=== PATIENT | female | born 1980 | race Caucasian/White ===

== ENCOUNTER 2023-08-20 08:42 | Outpatient (RCR) | payer MEDICAID, SELFPAY ==
[2023-08-20 13:31] LABS: HCT 38.4 % (36.0-46.0); HGB 13.4 g/dL (11.2-15.7)
[2023-08-20 14:01] LABS: Ferritin 66 ng/mL (8-252)
[2023-08-20] MEDS: Normal Saline Flush 10 ML SYR IVP (14:49)
== END 2023-08-20 23:59 | disposition home or self-care (01) ==
LOC: INF 08:42
PROVIDERS: PCP Internal Medicine; Visit Provider Internal Medicine Hematology
DX: E83.118 Other hemochromatosis (principal)
CPT/HCPCS: 36415; 99195; 82728; 85014; 85018

== ENCOUNTER 2024-01-03 01:02 | Outpatient (RCR) | payer MEDICAID, SELFPAY ==
--- OUTSIDE RECORDS SUMMARY | 2024-01-03 01:04 | XMS_ITS | Encounter Summary ---
Author Organization [facility] Address [facility] [place] [address] Care Team Providers Care Wet Milling Wheel Operator Name Role Phone Che Sharpe Primary Care Provider + Encounter Details Date Type Department Care Team (Late st Contact Info) Description 05/08/2022 Orders Only Pathology [facility] [place] [address] Mayi Perez, [facility] [place] [address] Social History Tobacco Use Types Packs/Day Years Used Date Smoking Tobacco: Former Cigarettes Q uit: 11/27/2016 Smokeless Tobacco: Never Alcohol Use Standard Drinks/Week Comments Yes 0 (1 standard drink = 0.6 oz pur e alcohol) Overall Financial Resource Strain (CARDIA) Answe r Date Recorded How hard is it for you to pa y for the very basics like food, housing, medical care, and heating? Somewhat hard 07/20/2021 Hunger Vital Sign Answer Date Recorded Within the past 12 months, y ou worried that your food would run out before you got the money to buy more. Sometimes true Within the past 12 months, t he food you bought just didn't last and you didn't have money to get more. Sometimes true PRAPARE - Transportation Answer Date Re corded In the past 12 months, has l ack of transportation kept you from medical appointments or from getting medications? No 06/22 In the past 12 months, has l ack of transportation kept you from meetings, work, or from getting things needed for daily living? No 07/20/2021 Housing Stability Vital Sign Answer Curtis e Recorded In the last 12 months, was t here a time when you were not able to pay the mortgage or rent on time? Yes 07/20/2021 In the last 12 months, how many places have you lived? 1 07/20/2021 In the last 12 months, was t here a time when you did not have a steady place to sleep or slept in a long-term (including now)? No 07/20/2021 Sex and Gender Information Value Date Recorded Sex Assigned at Not on file Gender Identity Not on file Sexual Orientation Not on file documented as of this encounter Plan of Treatment Upcoming Encounters Date Type Department Care Team (Late st Contact Info) Description 12/03/2024 1:00 PM EDT Appointment Hematology [place] [address] 12/03/2024 2:00 PM EDT Office Visit Hematology [place] [address] Pelon Wisdom MD [facility] [place] [address] Oksana Payne APRN [facility] [place] [address] documented as of this encounter Visit Diagnoses Not on filedocumented in this encounter Care Teams Wet Milling Wheel Operator Relationship Specialty Start Date End Date Che Sharpe PA [address] [place] [address] [place] [address] PCP - General Internal Medicine 04/20/20 documented as of this encounter
--- OUTSIDE RECORDS SUMMARY | 2024-01-03 01:04 | XMS_ITS | Encounter Summary ---
Author Organization [facility] [place] [address] Care Team Providers Care Brownell Operator Name Role Phone Che Sharpe Primary Care Provider + Encounter Details Date Type Department Care Team (Latest Contact Info) Description 02/01/2022 2:45 PM EDT - 02/01/2022 11:59 PM EDT Hospital Encounter Hematology [place] [phone] Hemochromatosis associated with compound heterozygous mutation in HFE gene Discharge Disposition: Home Social History Tobacco Use Types Packs/Day Years [...] place to sleep or slept in a usp (including now)? No 07/20/2021 Sex and Gender Information Value Date Recorded Sex Assigned at Not on file Gender Identity Not on file Sexual Orientation Not on file documented as of this encounter Medications at Time of Discharge Medication Sig Dispensed Refills Start Date End Date insulin lispro (HUMALOG KWIKPEN INSULIN SUBQ) Inject 8 Units subcutaneously 3 times daily (with meals). 10/16/2021 insulin pump cart,auto,BT/cntr (OMNIPOD 5 G6 INTRO KIT, GEN 5, SUBQ) Inject subcutaneously. Blood-Glucose Sensor (Dexcom G6 Sensor) Device by [facility].(Non-Drug; Combo Route) route. omeprazole (PriLOSEC) 40 mg Capsule, Delayed Release(E.C.) Take 40 mg by mouth 2 times daily. 11/28/2021 Ozempic 1 mg/dose (4 mg/3 mL) Pen Injector INJECT 1 MG UNDER THE SKIN ONCE A WEEK 07/14/2021 nitrofurantoin (Macrobid) 100 mg Capsule TAKE ONE CAPSULE BY MOUTH EVERY DAY NEEDED 07/07/2021 medroxyPROGESTERone (Depo-PROVERA) 150 mg/mL Suspension 04/03/2021 ibuprofen (Advil;Motrin) 800 mg Tablet Take 800 mg by mouth every 6 hours as needed for Pain. acyclovir (ZOVIRAX) 200 mg Capsule Take 1 capsule by mouth 5 times daily. 35 capsule 11/12/2017 acetaminophen (TYLENOL) 500 mg TabletIndications:Pa in, chest wall Take 2 tablets by mouth every 6 hours as needed for Pain. 30 tablet 1 03/12/2017 glucose (DEX4 GLUCOSE) 4 gram Tablet, Chewable Take 4 tablets by mouth as needed for Low blood sugar. 90 tablet 11 11/07/2016 documented as of this encounter Plan of Treatment Upcoming Encounters Date Type Department Care Team (Late st Contact Info) Description 12/03/2024 1:00 PM EDT Appointment Hematology [place] [phone] 12/03/2024 2:00 PM EDT Office Visit Hematology [place] [phone] Pelon Wisdom MD [facility] DR HEMATOLOGY AND ONCOLOGY [place], [place] [phone] Oksana Payne APRN [facility] HEMATOLOGY AND ONCOLOGY [place], [place] [id number] documented as of this encounter Procedures Procedure Name Priority Date/Time Associated Diagnosis Comments HEMOGRAM Routine 02/01/2022 2:53 PM EDT Hemochromatosis associated with compound heterozygous mutation in HFE gene DIFFERENTIAL, AUTOMATED Routine 02/01/2022 2:53 PM EDT Hemochromatosis associated with compound heterozygous mutation in HFE gene HC IRON BINDING CAPACITY Routine 02/01/2022 2:53 PM EDT Hemochromatosis associated with compound heterozygous mutation in HFE gene HC VENIPUNCTURE Routine 02/01/2022 2:53 PM EDT Hemochromatosis associated with compound heterozygous mutation in HFE gene HC FERRITIN, SERUM Routine 02/01/2022 2: 53 PM EDT Hemochromatosis associated with compound heterozygous mutation in HFE gene documented in this encounter Results * Differential, Automated (02/01/2022 2:53 PM EDT) Neutrophil % 56.4 % [facility] Neutrophil Absolute 3.64 1.70 - 6.10 x10(3)/[facility] Lymph % 30.4 % [facility] Lymphocytes Abs 2.0 0.9 - 3.2 x10(3)/[facility] Monocyte % 7.9 % [facility] Monocyte Abs 0.5 0.3 - 0.9 x10(3)/[facility] Eos % 4.2 % [facility] Eosinophils Abs 0.3 0.0 - 0.4 x10(3)/[facility] Basophil % 0.8 % [facility] Baso Absolute 0.0 0.0 - 0.1 x10(3)/[facility] Immature Gran % 0.30 % [facility] Comment: Immature granulocytes(IG's)percentage and absolute count will include metamyelocytes, myelocytes, and promyelocytes. Blood smears from CBCs yielding IG's will be scanned manually for concordance. If this scan disagrees with the automated IG or if promyelocytes are noted, a manual differential will be performed. Immature Gran Absolute 0.02 0.00 - 0.04 x10(3)/[facility] Blood 02/01/2022 2:53 PM EDT 02/01/2022 3:13 PM EDT Narrative Resulting Agency Comment Spec In Lab Oksana Levi SPEECH THERAPIST TECHNICIAN HEMATOLOGY ORD ERABLES [facility] [place] [place] [address] * (ABNORMAL) Hemogram (02/01/2022 2:53 PM EDT) White Blood Cell 6.4 4.0 - 9.5 x10(3)/mc L [facility] Red Blood Cell 3.47(L) 4.00 - 5.21 x10(6)/mc L [facility] Hemoglobin 11.8 11.7 - 15.5 g/dL [facility] Hematocrit 33.9(L) 35.7 - 45.8 % [facility] Mean Cell Volume 97.7(H) 82.6 - 94.4 fL [facility] Mean Cell Hemoglobin 34.0(H) 27.1 - 32.0 pg [facility] Mean Cell Hemoglobin Concentration 34.8 31.7 - 35.0 g/dL [facility] Platelet 330 145 - 357 x10(3)/mc L [facility] RDW Standard Deviation 44.7 37.0 - 46.0 fL [facility] RDW coefficient of variation 12.5 11.5 - 14.1 % [facility] Mean Platelet Volume 10.4 7.6 - 12.9 fL [facility] NRBC% auto 0.0 % [facility] NRBC Absolute 0.000 0.000 - 0.000 x10(3)/mc L [facility] Blood 02/01/2022 2:53 PM EDT 02/01/2022 3:13 PM EDT Narrative Resulting Agency Comment Spec In Lab Oksana Levi APRN HEMATOLOGY ORD ERABLES Performing Organization Address City/[facility]/ZIP Co de Phone Number [facility] [place] [place] [address] * (ABNORMAL) Iron and TIBC (02/01/2022 2:53 PM EDT) [facility] Iron 44 30 - 150 mcg/dL [facility] TIBC 286 250 - 450 mcg/dL [facility] Iron Saturation 15(L) 20 - 50 % [facility] Blood 02/01/2022 2:53 PM EDT 02/01/2022 3:13 PM EDT Narrative Resulting Agency Comment Spec In Lab Oksana Levi APRN CHEMISTRY ORDE RABLES Performing Organization Address City/[facility]/ZIP Co de Phone Number [facility] [place] [address] * Ferritin (02/01/2022 2:53 PM EDT) [facility] Ferritin 41 15 - 150 ng/mL [facility] Comment: Pediatric reference ranges not verified at [facility], interpret with caution. Reference ranges for females greater than 50 years of age approach values for men, i.e., 30-400 ng/mL. Blood 02/01/2022 2:53 PM EDT 02/01/2022 3:13 PM EDT Narrative Resulting Agency Comment Spec In Lab Oksana Levi SPEECH THERAPIST TECHNICIAN CHEMISTRY PAULAE DAISY Performing Organization Address City/State/[facility] Co de Phone Number [facility] [place] [place] [address] documented in this encounter Visit Diagnoses Diagnosis Hemochromatosis associated with compound heterozygous mutation in HFE gene documented in this encounter Care Teams Brownell Operator Relationship Specialty Start Date End Date Che Sharpe PA [address] [place] [address] [place] [address] PCP - General Internal Medicine 04/20/20 documented as of this encounter
--- OUTSIDE RECORDS SUMMARY | 2024-01-03 01:04 | XMS_ITS | Encounter Summary ---
Author Organization [facility] [place] [address] Care Team Providers Care Field Service Engineer Name Role Phone Che Sharpe Primary Care Provider + Encounter Details Date Type Department Care Team (Late st Contact Info) Description 04/01/2023 Orders Only Hematology [place] [address] Morena Martin RN Hemochromatosis associated with compound heterozygous mutation in HFE gene Social History Tobacco Use Types Packs/Day Years [...] place to sleep or slept in a [place] health care facility (including now)? No 07/20/2021 Sex and Gender Information Value Date Recorded Sex Assigned at Not on file Gender Identity Not on file Sexual Orientation Not on file documented as of this encounter Progress Notes * Morena Martin RN - 04/01/2023 11:34 AM EST Cbc documented in this encounter Plan of Treatment Upcoming Encounters Date Type Department Care Team (Late st Contact Info) Description 12/03/2024 1:00 PM EDT Appointment Hematology and Oncology at [place] [phone] 12/03/2024 2:00 PM EDT Office Visit Hematology and Oncology at [place] [phone] Pelon Wisdom MD [facility] [address] [place] [address] Oksana Payne APRN [facility] [address] [place] [address] Scheduled Orders Name Type Priority Associated Diagnoses Orde r Schedule CBC (with Diff) Lab STAT Hemochromatosis associated with compound heterozygous mutation in HFE gene Expected: 04/01/2023 (Approximate), Expires: 04/01/2024 Iron and TIBC Lab STAT Hemochromatosis associated with compound heterozygous mutation in HFE gene Expected: 04/01/2023 (Approximate), Expires: 04/01/2024 Ferritin Lab STAT Hemochromatosis associated with compound heterozygous mutation in HFE gene Expected: 04/01/2023 (Approximate), Expires: 04/01/2024 documented as of this encounter Visit Diagnoses Diagnosis Hemochromatosis associated with compound heterozygous mutation in HFE gene documented in this encounter Care Teams Field Service Engineer Relationship Specialty Start Date End Date Che Sharpe PA [address] [place] [address] [place] [address] PCP - General Internal Medicine 04/20/20 documented as of this encounter
--- OUTSIDE RECORDS SUMMARY | 2024-01-03 01:04 | XMS_ITS | Encounter Summary ---
Author Organization [facility] [place] [address] Care Team Providers Care Adobe Layer Helper Name Role Phone Che Sharpe Primary Care Provider + Encounter Details Date Type Department Care Team (Late st Contact Info) Description 02/15/2023 Telephone Hematology [place] [phone] Morena Martin RN Social History Tobacco Use Types Packs/Day Years [...] place to sleep or slept in a retirement (including now)? No 07/20/2021 Sex and Gender Information Value Date Recorded Sex Assigned at Not on file Gender Identity Not on file Sexual Orientation Not on file documented as of this encounter Miscellaneous Notes * Telephone Encounter - Morena Martin RN - 02/15/2023 2:34 PM EDT Message received from executive legal secretary: WALK IN SERVICE Services to be provided for pt are: LABS (CBC,DIFF,JUAN,IRON,TIBC) AT [facility] 02/15OR 02/18/23 Orders and necessary supporting documents faxed to [phone] [employer] MESSAGE TO PATIENT W/INSTRUCTIONS Telehealth visit 02/21/23 documented in this encounter Plan of Treatment Upcoming Encounters Date Type Department Care Team (Late st Contact Info) Description 12/03/2024 1:00 PM EDT Appointment Hematology [place] [address] 12/03/2024 2:00 PM EDT Office Visit Hematology [place] [address] Pelon Wisdom MD [facility] [place] [address] Oksana Payne APRN [facility] [place] [address] documented as of this encounter Visit Diagnoses Not on filedocumented in this encounter Care Teams Adobe Layer Helper Relationship Specialty Start Date End Date Che Sharpe PA NPI: [id number] [place] [address] [place] [address] PCP - General Internal Medicine 04/20/20 documented as of this encounter
--- OUTSIDE RECORDS SUMMARY | 2024-01-03 01:04 | XMS_ITS | Encounter Summary ---
Author Organization [facility] Address [facility] [place] [address] Care Team Providers Care Stud Dairy Cattle Farmer Name Role Phone Che Sharpe Primary Care Provider + Encounter Details Date Type Department Care Team (Latest Contact Info) Description 02/07/2023 Travel Social History Tobacco Use Types Packs/Day Years [...] PM EDT Appointment Hematology [place] [address] 12/03/2024 2:00 PM EDT Office Visit Hematology [place] [address] Pelon Wisdom MD [facility] DR [place] [address] Oksana Payne APRN [facility] DR [place] [address] documented as of this encounter Visit Diagnoses Not on filedocumented in this encounter Care Teams Stud Dairy Cattle Farmer Relationship Specialty Start Date End Date Che Sharpe PA [address] [place] [address] [place] [address] PCP - General Internal Medicine 04/20/20 documented as of this encounter
--- OUTSIDE RECORDS SUMMARY | 2024-01-03 01:04 | XMS_ITS | Encounter Summary ---
Author Organization [facility] [place] [address] Care Team Providers Care Stamp Classifier Name Role Phone Che Sharpe Primary Care Provider + Encounter Details Date Type Department Care Team (Latest Contact Info) Description 05/03/2023 4:00 PM EST TH Visit (TeleHealth) Hematology [place] [address] Pelon Wisdom MD [facility] DR HEMATOLOGY [place] [address] Hemochromatosis associated with compound heterozygous mutation in [...] place to sleep or slept in a group home (including now)? No 07/20/2021 Sex and Gender Information Value Date Recorded Sex Assigned at Not on file Gender Identity Not on file Sexual Orientation Not on file documented as of this encounter Progress Notes * Pelon Tomlinson MD - 05/03/2023 4:00 PM EST Images from the original note were not included. HEMATOLOGY CONSULTATION VISIT NOTE DATE OF VISIT : 05/03/23 HISTORY OF PRESENT ILLNESS Emma Min is a 43 y.o. female with PMH of type II DM, referred for evaluation of compound heterozygous state. Presentation: Her mother was recently diagnosed with hemochromatosis which prompted testing her andshe was found be compound heterozygote. So she was sent here for further evaluation. Labs from referring MD: LABS from 06/19/21: HFE gene mutation: 06/19/21:One copy of C282Y variant and 1 copy of H63D variant was detected. Iron: 79, TIBC: 320, iron saturation: 25%, ferritin: 691 ( 8-251) CBC: WBC: 6.7, normal differential, Hgb: 14.4, MCV: 98.1, platelets: 324 INTERIM Hx: In office today, Emma Min reports doing well since last seen Last phlebotomy was yesterday, on Q3 month schedule, She reports feeling tired after each phlebotomy. She hopes to have it closer to home. Otherwise doing well, no other new health concerns PROBLEM LIST Patient Active Problem List Diagnosis Chronic bilateral low back pain without sciatica Lumbar spondylosis Sacroiliac dysfunction Hemochromatosis Seizure-like activity Depression Anxiety Gastroesophageal reflux disease without esophagitis Uncontrolled diabetes mellitus type 2 without complications PAST SURGICAL Hx: No past surgical history on file. MEDICATIONS insulin lispro (HUMALOG KWIKPEN INSULIN SUBQ) insulin pump cart,auto,BT/cntr (OMNIPOD 5 G6 INTRO KIT, GEN 5, SUBQ) Blood-Glucose Sensor (Dexcom G6 Sensor) Device omeprazole (PriLOSEC) 40 mg Capsule, Delayed Release(E.C.) Ozempic 1 mg/dose (4 mg/3 mL) Pen Injector nitrofurantoin (Macrobid) 100 mg Capsule medroxyPROGESTERone (Depo-PROVERA) 150 mg/mL Suspension ibuprofen (Advil;Motrin) 800 mg Tablet acyclovir (ZOVIRAX) 200 mg Capsule acetaminophen (TYLENOL) 500 mg Tablet glucose (DEX4 GLUCOSE) 4 gram Tablet, Chewable ALLERGIES/ADR Allergies Allergen Reactions Latex Other [Unclassified Drug] Anaphylaxis Any type of SSRI Quetiapine Anaphylaxis All anti depressant medications Sertraline Anaphylaxis Paroxetine Hcl CIS - Edema Lactose Metformin Diarrhea PERSONAL and SOCIAL HISTORY Lives in: [place], [place], [place] from [facility]. [facility] is the closest hospital. 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 ETOH: occasional Smoking: No HIPPA Contact Permission: OK to leave voice mail on phone. FAMILY HISTORY Family History Problem Relation Age of Onset Hyperlipidemia Mother Hyperlipidemia Father Depression Father Bipolar Disorder Sister Diabetes Maternal Aunt Diabetes Maternal Grandfather Amblyopia Neg Hx Cancer Neg Hx Cataracts Neg Hx Glaucoma Neg Hx Hypertension Neg Hx Macular Degeneration Neg Hx Retinal Detachment Neg Hx Strabismus Neg Hx Thyroid Disease Neg Hx Heart Disease Neg Hx Her mother is diagnosed with same HFE gene mutation, so also her step sister. She has 2 biological children, 16 and 18 years old. No other FH of blood disorders. She does not know about cancers in the family PHYSICAL EXAM GENERAL: Emma Min is a well-appearing 43 y.o. female in no acute distress. PSYCHIATRIC: normal affect and mood Performed as this is telehealth visit LABORATORY Recent Results (from the past 72 hour(s)) Ferritin Result Value Ref Range Ferritin 42 6 - 175 ng/mL Recent Labs 05/02/23 1215 02/07/23 1051 10/19/22 1600 07/19/22 1240 FERRITIN 42 51 51 50 ASSESSMENT & PLANS Emma Min is a 43 y.o. female with PMH of type II DM, referred for evaluation of hemochromatosis. She is compound heterozygous for HFE. Doing phlebotomies of 500 ml volume every 3 months at [facility] and her ferritin is well-maintained <100. Phlebotomies were arranged at [facility] but due to her difficulty with IV access, she has been coming to the [facility] for phlebotomies. She now hopes to get them at [facility]. Accordingly, we will set them up. She is advised to drink a lot of fluids prior to each phlebotomy. Will continue to monitor ferritin, H&H prior to each phlebotomy. F/up in 18 months with CBC, iron studies. Pelon Tomlinson MD [facility] 05/03/23 CC: NARENDRA Gray Elizabeth C * Pelon Tomlinson MD - 05/03/2023 4:00 PM EST Date: 05/03/23 Patient Name: Emma Min : 1980 Diagnosis: Hemochromatosis Referral to [site]: [facility] Orders: [x] Draw 500ml of blood once every 3-4 months , next one due late July,. [x] Hold for Hemoglobin less than 11g/dL or Ferritin <20 LABS: [x] Check ferritin prior to every phlebotomies (goal is ferritin <100) [x] Check H/H prior to every phlebotomy. . Oksana Payne, MSN, CHAIN REPAIRER [facility] Hematology/[place] [address] Pager: [phone] 05/03/23 documented in this encounter Plan of Treatment Upcoming Encounters Date Type Department Care Team (Late st Contact Info) Description 12/03/2024 1:00 PM EDT Appointment Hematology [place] [address] 12/03/2024 2:00 PM EDT Office Visit Hematology [place] [address] Pelon Wisdom MD [facility] DR HEMATOLOGY [place] [address] Oksana Payne APRN [facility] DR HEMATOLOGY [place] [address] documented as of this encounter Visit Diagnoses Diagnosis Hemochromatosis associated with compound heterozygous mutation in HFE gene documented in this encounter Care Teams Stamp Classifier Relationship Specialty Start Date End Date Che Sharpe PA [address] [place] [address] [place] [address] PCP - General Internal Medicine 04/20/20 documented as of this encounter
--- OUTSIDE RECORDS SUMMARY | 2024-01-03 01:04 | XMS_ITS | Encounter Summary ---
Author Organization [facility] Address [facility] [place] [address] Care Team Providers Care Middleware Architect Name Role Phone Che Sharpe Primary Care Provider + Reason for Referral * Physical Therapy (Routine) - Closed Specialty Diagnoses / Procedures Referred By Contac t Referred To Contact Physical Therapy Diagnoses Chronic bilateral low back pain without sciatica Lumbar spondylosis Protrusion of lumbar intervertebral disc Sacroiliac dysfunction Myofascial pain Jarett Avalos MD [facility] DR PHYSICAL MEDIC[place] [address] Referral ID Status Reason Start Date Expiration Date V isits Requested Visits Authorized [id number] Closed Evaluate and Treat 12/11/2022 06/09/2023 12 12 Reason for Visit * Reason Comments Back Pain Lower back * Consultation (Routine) - Closed Specialty Diagnoses / Procedures Referred By Contac t Referred To Contact Pain and Spine Center Diagnoses Displacement of lumbar intervertebral disc without myelopathy Spine-Low back pain w/LE pain/MRI 09/14/22 @ [facility](faxed x1)/tried PT non op Carmen Astorga APRN [address] [place] [address] [facility] [place] [address] Referral ID Status Reason Start Date Expiration Date V isits Requested Visits Authorized [id number] Closed Consult, Test & Treat PCP Updated and/or Approved 09/20/2022 03/22/2023 1 1 Encounter Details Date Type Department Care Team (Late st Contact Info) Description 12/11/2022 2:45 PM EDT Office Visit Pain and Spine Center at [facility] [place] [address] Jarett Avalos MD [facility] DR PHYSICAL MEDICINE [place] [address] Chronic bilateral low back pain without sciatica (Primary Dx); Lumbar spondylosis; Protrusion of lumbar intervertebral disc; Sacroiliac dysfunction; Myofascial pain Social History Tobacco Use Types Packs/Day Years [...] place to sleep or slept in a assisted (including now)? No 07/20/2021 Sex and Gender Information Value Date Recorded Sex Assigned at Not on file Gender Identity Not on file Sexual Orientation Not on file documented as of this encounter Last Filed Vital Signs Vital Sign Reading Time Taken Comments Blood Pressure - - Pulse - - Temperature - - Respiratory Rate - - Oxygen Saturation - - Inhaled Oxygen Concentration - - Weight 72.6 kg (160 lb) 12/11/2022 2:41 PM EDT Height 162.6 cm (5' 4) 12/11/2022 2:41 PM EDT Body Mass Index 27.46 12/11/2022 2:41 PM EDT documented in this encounter Progress Notes * Jarett Avalos MD - 12/11/2022 2:45 PM EDT Images from the original note were not included. Subjective: Emma Min is a 42 y.o. female who presents for spine assessment and for Physical Medicine and Rehabilitation consultation, at the request of Carmen Astorga APRN. She reports primary symptoms of generalized upper lumbar pain with radiation to the mid buttocks. Pain can radiate intermittently to the distal aspect of the posterior thighs, but this has not occurred for the past 1.5 months. Symptom chronicity: The patient has had pain for the past 15 years. It began while hiking. Initial symptoms were present in bilateral buttocks with radiation to the lower extremities. The pain resolved after approximately two weeks. Over the next 7 years, she would experience self-limited low back,buttock or lower extremity pain once or twice a year. Over time, there has been an increase in the frequency of buttock pain and an increase in the anatomical distribution of pain to include the entire lumbar region. Additional episodes of lower extremity pain radiation have been no more frequent than once a year and have been self-limited after one week. Over the past 5 years, the patient has experienced constant generalized lumbar and bilateral buttock pain. She can still experience episodes of lower extremity pain radiation, but none for the past 1.5 months. Pain is constant and currently graded as 7/10 in intensity. Exacerbating factors: Prolonged sitting or driving, prolonged forward flexion, prolonged side-lying, hiking and squatting. Alleviating factors: Standing, stretching and the application of heat or cold. The patient denies lower extremity pain radiation, numbness, tingling, focal lower extremity weakness, bowel/bladder dysfunction or gait/balance impairment. Current treatment: Patient reports partial relief with use of Tylenol and ibuprofen. She has had two sessions of outpatient PT treatment at [facility]. She has experienced slight relief with the use of amitriptyline, as prescribed by her primary care provider. The patient saw a pain management provider at [facility] in early 2022. She was told that she did not qualify for an injection and that she had more of an arthritis thing. She was referred for rheumatological consultation, but did not follow through with that. I have reviewed the telehealth note of NARENDRA Betancur, dated 08/15/2022. Past medical history includes gastroesophageal reflux disease, uncontrolled type 2 diabetes mellitus, hemochromatosis, hyperlipidemia, irritable bowel syndrome and migraine headache. Behavioral health history includes anxiety and depression. I have independently reviewed the lumbar MRI of 09/14/2022. The study demonstrates a small central disc herniation at L3-L4 without neural impingement. There are small posterior disc herniations at L4-L5 and L5-S1 that are also without impingement. There is facet arthropathy at L4-L5 and L5-S1. Thisis severe on the right at the L5-S1 level. Review of Systems: Pertinent review of musculoskeletal and neurological systems, as above. Spine Center Response Trends Patient-reported scores: 05/14/2017 11:38 AM 12/10/2022 12:24 PM myD-H Spine Questionnaire responses Oswestry Disability Index (Range: 0-100) 22 (Moderate disability) PROMIS-10 Physical Health Score 37.4 34.9 PROMIS-10 Mental Health Score 36.3 62.5 Objective: The patient was advised of the clinic chemical mixer policy. She declined to have a chemical mixer during today's evaluation. Ht 162.6 cm (5' 4) Wt 72.6 kg (160 lb) BMI 27.46 kg/m?? The patient is seated comfortably and in no apparent distress. Gait is normal. Bilateral foot clearance is satisfactory. There is no difficulty performing bilateral heel or toe walking. Right shoulder is elevated in standing. Standing iliac crest palpation is elevated on the right. There is left-sided tenderness with the assessment. Standing flexion test is positive on the right. The patient reports midline low lumbar pain at endrange lumbar flexion and extension. Palpation: There is tenderness to palpation over bilateral upper, middle and right low lumbar paraspinals. Additional tenderness is noted over bilateral quadratus lumborum. There is marked tendernessover the sacrum and bilateral sacroiliac joints. There is mild bilateral iliac pain to pelvic compression. CADEN is negative bilaterally, as are bilateral posterior thrust and Danae tests. Sacral thrust is positive. There is marked tightness in right iliotibial band and rectus femoris. There is additional tightness, of lesser severity, and left iliotibial band. Motor: Right hip abductors 4-/5. Lower extremity motor examination otherwise 5/5 throughout. Sensation: Intact to light touch throughout the lower extremities. Straight leg raising: Negative bilaterally in sitting and supine. Muscle stretch reflexes: 1+ bilaterally for quadriceps and unobtainable for Achilles tendon. Tone normal throughout the lower extremities. No ankle clonus. Assessment: Encounter Diagnoses Name Primary? Chronic bilateral low back pain without sciatica Yes Lumbar spondylosis Protrusion of lumbar intervertebral disc Sacroiliac dysfunction Myofascial pain The patient presents with a 15-year history of pain that has increased in frequency and distribution over time. She reports episodic unilateral to bilateral posterior thigh pain radiation that has remained unchanged and is consistently self-limited. She has had no lower extremity pain for the past 1.5 months. There are no radicular signs on examination to support the presence of a lumbar radicular process. The current symptoms are not easily explained on the basis of the small disc herniation seen at the L3-L4 to L5-S1 levels. There was no evidence of neural impingement. Lumbar MRI demonstrates pronounced lower lumbar facet arthropathy that is worst on the right at L5-S1. This offers a satisfactory explanation for the low lumbar and buttock pain, but cannot easily explain the rest of the symptom complex. The patient has clinical evidence of sacroiliac mechanical dysfunction with sacroiliitis, but minimal pain localization to provocative stress maneuvers. In the absence of a clear neurogenic cause forthe lower extremity pain, sacroiliac dysfunction offers a potential explanation for the intermittent lower extremity pain symptoms. I suspect that the patient's pain is primarily mechanical in nature and includes a combination of facet-mediated and sacroiliac pain. I have reviewed my findings and clinical impressions in detail with the patient. I recommend outpatient PT treatment and have explained the rationale for such treatment in detail to the patient. She would like to proceed. This will be carried out at [facility]. The prescription includespostural training, manual therapy, via MET, to the pelvis and sacroiliac joints to restore and maintain normal lumbopelvic rhythm, pelvic alignment and rotation, flexibility training with attention to iliopsoas, quadratus lumborum, right iliotibial band and rectus femoris, establishment of posturalpreference for symptom control and self-management of symptoms and progression to pelvic stabilization and core strengthening. Consideration will be given to manual therapy in this office, depending on the response to PT treatment. The patient does not meet clinical criteria for diagnostic sacroiliac joint steroid injection. Consideration may be given to Pain Management consultation for diagnostic lumbar medial branch blocks, if the patient does not experience satisfactory pain relief with additional PT treatment. Plan: 1. Outpatient PT treatment. 2. Follow-up in 8 weeks during PT treatment. The consultation request of Carmen Astorga APRN is greatly appreciated. Jarett Avalos MD, MS documented in this encounter Plan of Treatment Upcoming Encounters Date Type Department Care Team (Late st Contact Info) Description 12/03/2024 1:00 PM EDT Appointment Hematology [place] [address] 12/03/2024 2:00 PM EDT Office Visit Hematology and Oncology at [address] Pelon Wisdom MD [facility] [address] [place] [address] Oksana Payne APRN [facility] [address] [place] [address] Scheduled Referrals Name Type Priority Associated Diagnoses Orde r Schedule Referral to Physical Therapy Outpatient Referral Routine Chronic bilateral low back pain without sciatica Lumbar spondylosis Protrusion of lumbar intervertebral disc Sacroiliac dysfunction Myofascial pain Ordered: 12/11/2022 documented as of this encounter Visit Diagnoses Diagnosis Chronic bilateral low back pain without sciatica- Primary Lumbar spondylosis Lumbosacral spondylosis without myelopathy Protrusion of lumbar intervertebral disc Sacroiliac dysfunction Disorders of sacrum Myofascial pain Mylagia and myositis, unspecified documented in this encounter Care Teams Middleware Architect Relationship Specialty Start Date End Date Che Sharpe PA [address] [place] [address] [place] [address] PCP - General Internal Medicine 04/20/20 documented as of this encounter
--- OUTSIDE RECORDS SUMMARY | 2024-01-03 01:04 | XMS_ITS | Encounter Summary ---
Author Organization [facility] Address [facility] [place] [address] Care Team Providers Care Culinary Intern Name Role Phone Che Sharpe Primary Care Provider + Reason for Visit * Reason Comments Follow-up Doing PT Back Pain Encounter Details Date Type Department Care Team ([facility] st Contact Info) Description 02/07/2023 11:30 AM EDT Office Visit [place] [phone] Jarett Avalos MD [facility] PHYSICAL [place] [address] Chronic bilateral low back pain without sciatica; Sacroiliac dysfunction; Sacroiliac joint somatic dysfunction Social History Tobacco Use Types Packs/Day Years [...] place to sleep or slept in a long term (including now)? No 07/20/2021 Sex and Gender [...] - Inhaled Oxygen Concentration - - Weight 73.9 kg (163 lb) 02/07/2023 11:32 AM EDT Height 162.6 cm (5' 4) 02/07/2023 11:32 AM EDT Body Mass Index 27.98 02/07/2023 11:32 AM EDT documented in this encounter Progress Notes * Jarett Avalos MD - 02/07/2023 11:30 AM EDT Interim history: The patient returns for the first time since the visit of 12/11/2022. At that time, she reported symptoms of generalized upper lumbar pain with radiation to mid buttocks. Pain was felt to be mechanical in nature with probable facet- mediated and/or sacroiliac components. Outpatient PT treatment was prescribed. The patient returns today during the course of PT treatment at [facility]. No notes have been received from the PT practice. The patient was discharged from treatment after 6-7 sessions. She states that physical therapy helped a little bit. There has been no overall change in the distribution of the patient's pain symptoms. Pain can radiate occasionally into the lateral hips or lateral thighs, especially if she is in ipsilateral side-lying position. Symptom chronicity: The patient has had pain for approximately 15 years. Symptoms began after an injury while hiking. Pain is constant and is currently graded as 5/10 in intensity. Exacerbating factors: Prolonged ambulation and prolonged forward flexion. Alleviating factors: Position change, stretching and standing. The patient denies lower extremity numbness, tingling, focal lower extremity weakness or bowel/bladder dysfunction. Past medical history includes uncontrolled type 2 diabetes mellitus and morbid obesity. She has experienced significant volitional weight loss from 300 pounds to her current weight of 135 pounds. The patient is working full-time, but states that she feels restricted when engaging in vocational or a vocational activities. 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 She is unable to bicycle, hike, walk for long distancesor drive for extended periods. She avoids walking on inclines. Objective: Ht 162.6 cm (5' 4) Wt 73.9 kg (163 lb) BMI 27.98 kg/m?? The patient is seated comfortably and in no apparent distress. Gait is normal. There is no difficulty performing bilateral heel or toe walking. Right shoulder is elevated in standing. Lumbar lordosis is decreased. Standing iliac crest palpation is markedly elevated on the right. Standing flexion test is positive on the left. The patient reports midline upper to mid lumbar pain with active flexion and generalized lumbosacral pain with lumbar extension from the standing position. Palpation: There is generalized bilateral lumbar tenderness. Pain is elicited at 8/18 defined tender points. Additional focal tenderness is found over the sacrum and throughout bilateral central buttocks and hip bursae, left greater than right. The patient reports right anterior iliac pain to pelvic compression and bilateral anterior iliac pain to pelvic shear. CADEN is negative bilaterally. The patient reports pain in the right groin with ipsilateral intermediate hip internal rotation. Right FADIR is negative. Bilateral posterior thrust and Norman's tests are negative. Sacral thrust is positive. Motor: 5/5 for bilateral hip and knee flexors, knee extensors, ankle dorsiflexors and EHL. Sensation: Intact to light touch throughout the lower extremities. Straight leg raising: Negative bilaterally in sitting and supine. Muscle stretch reflexes: 1+ bilaterally for quadriceps and unobtainable for Achilles tendon. Assessment: Encounter Diagnoses Name Primary? Chronic bilateral low back pain without sciatica Sacroiliac dysfunction Sacroiliac joint somatic dysfunction The patient has experienced no significant improvement in her symptoms with PT treatment. The response to treatment is somewhat difficult to assess in the absence of any clinical records from the PT practice. The patient experienced some pain with the assigned core strengthening exercises. The presence of sacroiliac mechanical dysfunction is again noted. I suspect that the observed dysfunction is a contributing factor in the chronic pain symptoms. The patient does not meet criteria forcompletion of a diagnostic sacroiliac joint steroid injection. The patient is, however, appropriate for manual therapy. She was treated today, as below: Manual therapy, using gentle muscle energy techniques, was applied to the patient's pelvis and right lower extremity by MD in the office today. The treatment was tolerated well by the patient and waswithout complication. Pelvic obliquity resolved and leg lengths were equalized following the treatment. Lumbopelvic flexibility from the standing position was noted to be bilaterally symmetric post-treatment. Low back pain decreased from a level of 5/10 pre-treatment to 3/10 post- treatment. Following treatment, the patient was able to complete active lumbar flexion without pain. The patient has experienced a 40% reduction in pain, normalization of lumbopelvic motion and has achieved pain-free lumbar flexion following manual therapy. I recommend repeat manual therapy to help determine whether normal lumbopelvic biomechanics can be maintained over time and to hopefully permit the patient to advance to stabilization and core exercises without pain. If the patient has no significant response to repeat manual therapy, consideration will be given toreferral for enrollment in the [facility] Program. Plan: 1. Follow-up in 2-3 weeks for repeat manual therapy. Total time spent on date of encounter, including [id number] evaluation and coordination of care (minus manual therapy) = 32 minutes. Jarett Avalos MD, MS documented in this encounter Plan of Treatment Upcoming Encounters Date Type Department Care Team (Late st Contact Info) Description 12/03/2024 1:00 PM EDT Appointment Hematology [place] [address] 12/03/2024 2:00 PM EDT Office Visit Hematology [place] [address] Pelon Wisdom MD [facility] DR HEMAT[place] [address] Oksana Payne APRN [facility] [place] [address] documented as of this encounter Visit Diagnoses Diagnosis Chronic bilateral low back pain without sciatica Sacroiliac dysfunction Disorders of sacrum Sacroiliac joint somatic dysfunction Nonallopathic lesion of sacral region, not elsewhere classified documented in this encounter Care Teams Culinary Intern Relationship Specialty Start Date End Date Che Sharpe PA [address] [place] [address] [place] [address] PCP - General Internal Medicine 04/20/20 documented as of this encounter
--- OUTSIDE RECORDS SUMMARY | 2024-01-03 01:04 | XMS_ITS | Encounter Summary ---
Author Organization [facility] Address [facility] [place] [address] Care Team Providers Care Cell Changer Name Role Phone Che Sharpe Primary Care Provider + Encounter Details Date Type Department Care Team (Latest Contact Info) Description 07/19/2022 Travel Social History Tobacco Use Types Packs/Day [...] place to sleep or slept in a senior care (including now)? No 07/20/2021 Sex and Gender Information Value Date Recorded Sex Assigned at Not on file Gender Identity Not on file Sexual Orientation Not on file documented as of this encounter Plan of Treatment Upcoming Encounters Date Type Department Care Team (Late st Contact Info) Description 12/03/2024 1:00 PM EDT Appointment Hematology [place] [address] 12/03/2024 2:00 PM EDT Office Visit Hematology [place] [address] Pelon Wisdom MD [facility] DR HEMATOLOGY [place] [address] Oksana Payne APRN [facility] DR HEMATOLOGY [place] [address] documented as of this encounter Visit Diagnoses Not on filedocumented in this encounter Care Teams Cell Changer Relationship Specialty Start Date End Date Che Sharpe PA [address] [place] [address] [place] [address] PCP - General Internal Medicine 04/20/20 documented as of this encounter
--- OUTSIDE RECORDS SUMMARY | 2024-01-03 01:04 | XMS_ITS | Encounter Summary ---
Author Organization [facility] Address [facility] [place] [address] Care Team Providers Care In Store Representative Name Role Phone Che Sharpe Primary Care Provider + Reason for Referral * Consultation (Routine) - Closed Specialty Diagnoses / Procedures Referred By Contac t Referred To Contact Hematology and Oncology Diagnoses Hemochromatosis associated with compound heterozygous mutation in HFE gene Pelon Wisdom MD [facility] [place] [address] Referral ID Status Reason Start Date Expiration Date V isits Requested Visits Authorized [id number] Closed Consult, Test & Treat 02/12/2023 08/11/2023 1 1 Encounter Details Date Type Department Care Team (Late st Contact Info) Description 02/12/2023 Orders Only Hematology [place] [address] Pelon Wisdom MD [facility] [place] [address] Hemochromatosis associated with compound heterozygous mutation in [...] place to sleep or slept in a chcf (including now)? No 07/20/2021 Sex and Gender Information Value Date Recorded Sex Assigned at Not on file Gender Identity Not on file Sexual Orientation Not on file documented as of this encounter Plan of Treatment Upcoming Encounters Date Type Department Care Team (Late st Contact Info) Description 12/03/2024 1:00 PM EDT Appointment Hematology [place] [address] 12/03/2024 2:00 PM EDT Office Visit Hematology [place] [address] Pelon Wisdom MD [facility] [place] [address] Oksana Payne APRN [facility] [place] [address] Scheduled Referrals Name Type Priority Associated Diagnoses Orde r Schedule Referral to Hematology and Oncology Outpatient Referral Routine Hemochromatosis associated with compound heterozygous mutation in HFE gene Ordered: 02/12/2023 documented as of this encounter Visit Diagnoses Diagnosis Hemochromatosis associated with compound heterozygous mutation in HFE gene documented in this encounter Care Teams In Store Representative Relationship Specialty Start Date End Date Che Sharpe PA [address] [place] [address] [place] [address] PCP - General Internal Medicine 04/20/20 documented as of this encounter
--- OUTSIDE RECORDS SUMMARY | 2024-01-03 01:04 | XMS_ITS | Encounter Summary ---
Author Organization [facility] [place] [address] Care Team Providers Care Lace Tearing Supervisor Name Role Phone Che Sharpe Primary Care Provider + Encounter Details Date Type Department Care Team (Late st Contact Info) Description 04/18/2023 External Results Hematology and Oncology at [facility] [place] [phone] Demetria Alberto, RN Social History Tobacco Use Types Packs/Day [...] place to sleep or slept in a prison (including now)? No 07/20/2021 Sex and Gender Information Value Date Recorded Sex Assigned at Not on file Gender Identity Not on file Sexual Orientation Not on file documented as of this encounter Plan of Treatment Upcoming Encounters Date Type Department Care Team (Late st Contact Info) Description 12/03/2024 1:00 PM EDT Appointment Hematology [place] [phone] 12/03/2024 2:00 PM EDT Office Visit Hematology [place] [phone] Pelon Wisdom MD [facility] [address] HEMATOLOGY [place] [address] Oksana Payne APRN [facility] DR HEMATOLOGY [place] [address] documented as of this encounter Procedures Procedure Name Priority Date/Time Associated Diagnosis Comments CBC (WITH DIFF) Routine 04/16/2023 3:21 PM EST documented in this encounter Results * (ABNORMAL) CBC (with Diff) (04/16/2023 3:21 PM EST) White Blood Cell 6.7 5 - 10 [facility] Hemoglobin 13.7 12.0 - 16.0 [facility] Hematocrit 38.1 37.0 - 47.0 [facility] Platelet 259 130 - 450 [facility] Neutrophil Absolute (ANC) - Automated 4.0 [facility]ILITY Blood 04/16/2023 3:21 PM EST Historical Provider HEMATOLOGY [facility] documented in this encounter Visit Diagnoses Not on filedocumented in this encounter Care Teams Lace Tearing Supervisor Relationship Specialty Start Date End Date Che Sharpe PA [address] [place] [address] [place] [address] PCP - General Internal Medicine 04/20/20 documented as of this encounter
--- OUTSIDE RECORDS SUMMARY | 2024-01-03 01:04 | XMS_ITS | Encounter Summary ---
Author Organization [facility] [place] [address] Care Team Providers Care Dye Machine Tender Name Role Phone Che Sahrpe Primary Care Provider + Reason for Visit * Reason Comments Procedure * Consultation (Routine) - Closed Specialty Diagnoses / Procedures Referred By Contlaura t Referred To Contact Diagnoses Hemochromatosis associated with compound heterozygous mutation in HFE gene Pelon Wisdom MD [facility] DR HEMATOLOGY [place] [address] [facility] [place] [address] Referral ID Status Reason Start Date Expiration Date V isits Requested Visits Authorized [id number] Closed Consult, Test & Treat 08/08/2022 08/08/2023 3 3 Encounter Details Date Type Department Care Team (Latest Contact Info) Description 10/19/2022 2:30 PM EDT - 10/19/2022 11:59 PM EDT Hospital Encounter [place] [address] Hemochromatosis, unspecified hemochromatosis type Discharge Disposition: Home Social History Tobacco Use [...] place to sleep or slept in a halfway (including now)? No 07/20/2021 Sex and Gender Information Value Date Recorded Sex Assigned at Not on file Gender Identity Not on file Sexual Orientation Not on file documented as of this encounter Last Filed Vital Signs Vital Sign Reading Time Taken Comments Blood Pressure 117/72 10/19/2022 2:40 PM EDT Pulse 105 10/19/2022 2:40 PM EDT Temperature 36.5 ??C (97.7 ??F) 10/19/2022 2:40 PM ED T Respiratory Rate - - Oxygen Saturation - - Inhaled Oxygen Concentration - - Weight - - Height - - Body Mass Index - - documented in this encounter Medications at Time of Discharge Medication Sig Dispensed Refills Start Date End Date insulin lispro (HUMALOG KWIKPEN INSULIN SUBQ) Inject 8 Units subcutaneously 3 times daily (with meals). 10/16/2021 insulin pump cart,auto,BT/cntr (OMNIPOD 5 G6 INTRO KIT, GEN 5, SUBQ) Inject subcutaneously. Blood-Glucose Sensor (Dexcom G6 Sensor) Device by Geron.(Non-Drug; Combo Route) route. omeprazole (PriLOSEC) 40 mg [...] 11 11/07/2016 documented as of this encounter Progress Notes * Pola Hull MD - 10/19/2022 2:35 PM EDT Transfusion Medicine Service Therapeutic Phlebotomy Procedure Type: Therapeutic Phlebotomy Requesting Physician: Pelon Tomlinson Date of Procedure: 10/19/2022 Treatment Pathway: Hemochromatosis/Iron Overload Program Frequency of Phlebotomy: Every 3 Months Criteria for Performance of Therapeutic Phlebotomy: Hemoglobin greater than 11 g/dL Pre-Collection Hemoglobin value: 13 g/dL Criteria for Therapeutic Phlebotomy Met? Yes Volume Drawn (mL): Volume Replaced (mL): 500 mL 0.9% normal saline Vital Signs: Blood Pressure: 117/72 mmHg Temperature: 36.5 ??C (97.7 ??F) degrees C Pulse: (!) 105 bpm Therapeutic Goal: Ferritin (ng/mL) less than: 100 Frequency of Ferritin Monitoring: Every phlebotomy Ferritin Drawn Today? Yes Reaction: No PHYSICIAN ASSESSMENT AND PLAN: I have reviewed the procedure note and the patient medical record. 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 The current treatment regimen remains appropriate. Recent Labs 10/19/22 1600 07/19/22 1240 05/11/22 1450 02/01/22 1453 01/19/22 1130 FERRITIN 51 50 63 41 71 Mayi Perez DO 10/19/2022 I was available throughout the procedure for questions and medical support. I personally reviewed all clinical and laboratory data. I reviewed the note written by Dr. Perez and agree with the assessment and plan. Pola Hull MD Transfusion Medicine Fellow 10/19/2022 Associated attestation - Aline Molina MD - 10/22/2022 9:11 AM EDT ATTENDING MD ATTESTATION: I reviewed the clinical note and agree with the assessment and plan presented by Drs. Perez and Della. ALINE MOLINA MD 10/22/2022 documented in this encounter Miscellaneous Notes * Addendum Note - Aline Molina MD - 10/19/2022 11:59 PM EDTEncounter addended by: Aline Molina MD on: 10/22/2022 9:11 AM Actions taken: Cosign clinical note with attestation * Addendum Note - Pola Hull MD - 10/19/2022 5:13 PM EDTEncounter addended by: Pola Hull MD on: 10/19/2022 5:13 PM Actions taken: Clinical Note Signed * Consult Note - Jovan Aguilar RN - 10/19/2022 3:55 PM EDT 18 g 1.75 catheter started in left ac area. documented in this encounter Plan of Treatment Upcoming Encounters Date Type Department Care Team (Late st Contact Info) Description 12/03/2024 1:00 PM EDT Appointment H[place]ology [place] [address] 12/03/2024 2:00 PM EDT Office Visit Hematology [place] [phone] Pelon Wisdom MD [facility] DR HEMATOLOGY [place] [address] Oksana Payne APRN [facility] HEMATOLOGY [place] [address] Scheduled Orders Name Type Priority Associated Diagnoses Orde r Schedule POCT HGB Point of Care Testing Routine Hemochromatosis, unspecified hemochromatosis type Ordered: 10/19/2022 documented as of this encounter Procedures Procedure Name Priority Date/Time Associated Diagnosis Comments FERRITIN Routine 10/19/2022 4:00 PM EDT Hemochromatosis, unspecified hemochromatosis type documented in this encounter Results * Ferritin (10/19/2022 4:00 PM EDT) Ferritin 51 15 - 150 ng/mL [facility] Comment: Pediatric reference ranges not verified at [facility], interpret with caution. Reference ranges for females greater than 50 years of age approach values for men, i.e., 30-400 ng/mL. Blood 10/19/2022 4:00 PM EDT 10/19/2022 4:18 PM EDT Narrative Resulting Agency Comment Spec In Lab Kolton Boss MD CHEMISTRY ORDERABLES [facility] [place] [address] documented in this encounter Visit Diagnoses Diagnosis Hemochromatosis, unspecified hemochromatosis type documented in this encounter Care Teams Dye Machine Tender Relationship Specialty Start Date End Date Che Sharpe PA [address] [place] [address] [place] [id number] PCP - General Internal Medicine 04/20/20 documented as of this encounter
--- OUTSIDE RECORDS SUMMARY | 2024-01-03 01:04 | XMS_ITS | Encounter Summary ---
Author Organization [facility] Address [facility] [place] [address] Care Team Providers Care Garden Tractor Mechanic Name Role Phone Che Sharpe Primary Care Provider + Encounter Details Date Type Department Care Team (Late st Contact Info) Description 10/03/2023 Orders Only Pathology [facility] [place] [address] Shivani Castañeda, [facility] [place] [address] Social History Tobacco Use Types Packs/Day Years [...] place to sleep or slept in a residential (including now)? No 07/20/2021 Sex and Gender Information Value Date Recorded Sex Assigned at Not on file Gender Identity Not on file Sexual Orientation Not on file documented as of this encounter Plan of Treatment Upcoming Encounters Date Type Department Care Team (Late st Contact Info) Description 12/03/2024 1:00 PM EDT Appointment [place] [address] 12/03/2024 2:00 PM EDT Office Visit [place] [address] Pelon Wisdom MD [facility] [place] [address] Oksana Payne APRN [facility] [place] [address] documented as of this encounter Visit Diagnoses Not on filedocumented in this encounter Care Teams Garden Tractor Mechanic Relationship Specialty Start Date End Date Che Sharpe PA [address] [place] [address] [place] [id number] PCP - General Internal Medicine 04/20/20 documented as of this encounter
--- OUTSIDE RECORDS SUMMARY | 2024-01-03 01:04 | XMS_ITS | Encounter Summary ---
Author Organization [facility] Address [facility] [place] [address] Care Team Providers Care Family And Consumer Sciences Teacher Name Role Phone Che Sharpe Primary Care Provider + Encounter Details Date Type Department Care Team (Latest Contact Info) Description 05/11/2022 Travel Social History Tobacco Use Types Packs/Day [...] PM EDT Appointment Hematology [place] [address] 12/03/2024 2:00 PM EDT Office Visit Hematology [place] [address] Pelon Wisdom MD [facility] [address] [place] [address] Oksana Payne APRN [facility] [address] [place] [address] documented as of this encounter Visit Diagnoses Not on filedocumented in this encounter Care Teams Family And Consumer Sciences Teacher Relationship Specialty Start Date End Date Che Sharpe PA [address] [place] [address] [place] [address] PCP - General Internal Medicine 04/20/20 documented as of this encounter
--- OUTSIDE RECORDS SUMMARY | 2024-01-03 01:04 | XMS_ITS | Encounter Summary ---
Author Organization [facility] Address [facility] [place] [address] Care Team Providers Care Inker Name Role Phone Che Sharpe Primary Care Provider + Encounter Details Date Type Department Care Team (Latest Contact Info) Description 12/10/2022 Travel Social History Tobacco Use Types Packs/Day [...] place to sleep or slept in a skilled nursing (including now)? No 07/20/2021 Sex and Gender Information Value Date Recorded Sex Assigned at Not on file Gender Identity Not on file Sexual Orientation Not on file documented as of this encounter Plan of Treatment Upcoming Encounters Date Type Department Care Team (Late st Contact Info) Description 12/03/2024 1:00 PM EDT Appointment Hematology [place] [address] 12/03/2024 2:00 PM EDT Office Visit [place]ematology [place] [address] Pelon Wisdom MD [facility] DR HEMATOLOGY [place] [address] Oksana Payne APRN [facility] DR HEMATOLOGY [place] [address] documented as of this encounter Visit Diagnoses Not on filedocumented in this encounter Care Teams Inker Relationship Specialty Start Date End Date Che Sharpe PA [address] [place] [address] [place] [address] PCP - General Internal Medicine 04/20/20 documented as of this encounter
--- OUTSIDE RECORDS SUMMARY | 2024-01-03 01:04 | XMS_ITS | Encounter Summary ---
Author Organization [facility] Address [facility] [place] [address] Care Team Providers Care Medical Device Name Role Phone Che Sharpe Primary Care Provider + Encounter Details Date Type Department Care Team (Late st Contact Info) Description 09/14/2022 Ancillary Procedure Radiology [facility] at [facility] [place] [phone] Che Sharpe PA [address] [place] [id number] Social History Tobacco Use Types Packs/Day Years [...] place to sleep or slept in a alf (including now)? No 07/20/2021 Sex and Gender Information Value Date Recorded Sex Assigned at Not on file Gender Identity Not on file Sexual Orientation Not on file documented as of this encounter Plan of Treatment Upcoming Encounters Date Type Department Care Team (Late st Contact Info) Description 12/03/2024 1:00 PM EDT Appointment Hematology [place] [address] 12/03/2024 2:00 PM EDT Office Visit Hematology [place] [address] Pelon Wisdom MD [facility] DR [place] [address] Oksana Payne APRN [facility] DR [place] [address] documented as of this encounter Procedures Procedure Name Priority Date/Time Associated Diagnosis Comments FILM LIBRARY STORAGE ONLY MR SPINE Routine 09/14/2022 12:00 AM EDT documented in this encounter Results * Film Library- Storage Only MR Spine (09/14/2022 12:00 AM EDT) Narrative JUSTICE - 09/22/2022 2:30 AM EDT This exam is auto-finalizing. It's purpose is for storage only. Che MADDEN FILM LIBRARY ORDERABLES [facility] [place], [place] documented in this encounter Visit Diagnoses Not on filedocumented in this encounter Care Teams Medical Device Relationship Specialty Start Date End Date Che Sharpe PA [address] [place] [address] [place] [address] PCP - General Internal Medicine 04/20/20 documented as of this encounter
--- OUTSIDE RECORDS SUMMARY | 2024-01-03 01:04 | XMS_ITS | Encounter Summary ---
Author Organization [facility] Address [facility] [place] [address] Care Team Providers Care Nut And Bolt Assembler Name Role Phone Che Sharpe Primary Care Provider + Encounter Details Date Type Department Care Team (Late st Contact Info) Description 03/27/2022 Telephone [place] [phone] Kelly Amaya Social History Tobacco Use Types Packs/Day Years [...] to sleep or slept in a senior living (including now)? No 07/20/2021 Sex and Gender Information Value Date Recorded Sex Assigned at Not on file Gender Identity Not on file Sexual Orientation Not on file documented as of this encounter Miscellaneous Notes * Telephone Encounter - Kelly Amaya - 03/27/2022 3:41 PM EST Pt returned our call about scheduling a colo, stated she already had it done elsewhere documented in this encounter Plan of Treatment Upcoming Encounters Date Type Department Care Team (Late st Contact Info) Description 12/03/2024 1:00 PM EDT Appointment [place]ology [place] [address] 12/03/2024 2:00 PM EDT Office Visit [place]ematology [place] [address] Pelon Wisdom MD [facility] DR HEMATOLOGY [place] [address] Oksana Payne APRN [facility] DR HEMATOLOGY [place] [address] documented as of this encounter Visit Diagnoses Not on filedocumented in this encounter Care Teams Nut And Bolt Assembler Relationship Specialty Start Date End Date Che Sharpe PA [address] [place] [address] [place] [address] PCP - General Internal Medicine 04/20/20 documented as of this encounter
--- OUTSIDE RECORDS SUMMARY | 2024-01-03 01:04 | XMS_ITS | Clinical Summary ---
Author Organization [facility] Address [facility] [place] [address] Care Team Providers Care Director Cardiology Name Role Phone Che Sharpe Primary Care Provider + Allergies Active Allergy Reactions Criticality Noted Date Comments Lactose 11/07/2016 Latex 11/07/2016 Metformin Diarrhea 10/26/2016 Unclassified Drug Anaphylaxis High 11/15/2016 Any type of SSRI Paroxetine Hcl Medium CIS - Edema Quetiapine Anaphylaxis High 09/23/2014 All anti depressant medications Sertraline Anaphylaxis High 12/11/2022 Medications Medication Sig Dispensed Refills Start Date End Date Status acetaminophen (TYLENOL) 500 mg TabletIndications :Pain, chest wall Take 2 tablets by mouth every 6 hours as needed for Pain. 30 tablet 1 03/12/2017 Active glucose (DEX4 GLUCOSE) 4 gram Tablet, Chewable Take 4 tablets by mouth as needed for Low blood sugar. 90 tablet 11 11/07/2016 Active acyclovir (ZOVIRAX) 200 mg Capsule Take 1 capsule by mouth 5 times daily. 35 capsule 11/12/2017 Active ibuprofen (Advil;Motrin) 800 mg Tablet Take 800 mg by mouth every 6 hours as needed for Pain. Active Ozempic 1 mg/dose (4 mg/3 mL) Pen Injector INJECT 1 MG UNDER THE SKIN ONCE A WEEK 07/14/2021 Active nitrofurantoin (Macrobid) 100 mg Capsule TAKE ONE CAPSULE BY MOUTH EVERY DAY NEEDED 07/07/2021 Active medroxyPROGESTERo ne (Depo-PROVERA) 150 mg/mL Suspension 04/03/2021 Active insulin pump cart,auto,BT/cntr (OMNIPOD 5 G6 INTRO KIT, GEN 5, SUBQ) Inject subcutaneously. Active Blood-Glucose Sensor (Dexcom G6 Sensor) Device by [employer].(Non-Drug; Combo Route) route. Active omeprazole (PriLOSEC) 40 mg Capsule, Delayed Release(E.C.) Take 40 mg by mouth 2 times daily. 11/28/2021 Active insulin lispro (HUMALOG KWIKPEN INSULIN SUBQ) Inject 8 Units subcutaneously 3 times daily (with meals). 10/16/2021 Active Active Problems Problem Noted Date Diagnosed Date Chronic bilateral low back pain without sciatica 12/11/2022 Lumbar spondylosis 12/11/2022 Sacroiliac dysfunction 12/11/2022 Hemochromatosis 05/08/2022 Seizure-like activity 09/01/2017 Depression 02/08/2017 Anxiety 02/08/2017 Gastroesophageal reflux disease without esophagi tis 11/15/2016 Uncontrolled diabetes mellitus type 2 without co mplications 11/15/2016 Resolved Problems Problem Noted Date Diagnosed Date Resolved Date Uncontrolled type 1 diabetes mellitus without complication 11/15/2016 11/15/2016 Encounters Date Type Department Care Team Description 10/03/2023 [place] [address] Shivani Castañeda DO from Last 3 Months Immunizations Name Administration Dates Next Due Influenza PF, Split 01/14/2017 Influenza Unspecified Formulation 01/31/2016 Tdap 01/14/2017 Family History Medical History Relation Comments Depression Father Hyperlipidemia Father Diabetes Maternal Aunt Diabetes Maternal Grandfather Hyperlipidemia Mother Bipolar Disorder Sister Amblyopia Neg Hx Cancer Neg Hx Cataracts Neg Hx Glaucoma Neg Hx Heart Disease Neg Hx Hypertension Neg Hx Macular Degeneration Neg Hx Retinal Detachment Neg Hx Strabismus Neg Hx Thyroid Disease Neg Hx Relation Status Comments Daughter 1 Alive Daughter 2 Alive Father Alive Maternal Aunt Alive Maternal Grandfather Alive Mother Alive Sister Alive Social History Tobacco Use Types Packs/Day Years [...] on file Sexual Orientation Not on file Last Filed Vital Signs Vital Sign Reading Time Taken Comments Blood Pressure 139/51 05/02/2023 11:39 AM EST Pulse 90 05/02/2023 11:39 AM EST Temperature 36.4 ??C (97.5 ??F) 05/02/2023 11:[address] Respiratory Rate 14 02/01/2022 4:04 PM EDT Oxygen Saturation 100% 02/01/2022 4:04 PM EDT Inhaled Oxygen Concentration - - Weight 73.9 kg (163 lb) 02/07/2023 11:32 AM EDT Height 162.6 cm (5' 4) 02/07/2023 11:32 AM EDT Body Mass Index 27.98 02/07/2023 11:32 AM EDT Plan of Treatment Upcoming Encounters Date Type Department Care Team (Late st Contact Info) Description 12/03/2024 1:00 PM EDT Appointment [place] [address] 12/03/2024 2:00 PM EDT Office Visit [place] [address] Pelon Wisdom MD [facility] [address] HEMATOLOGY [place] [address] Oksana Payne APRN [facility] [address] HEMATOLOGY [place] [address] Health Maintenance Due Date Last Done Comments Pneumococcal Vaccine: At-Ris k 5-64yrs (1 of 2 - PCV) 1987 HIV screen 1999 Hepatitis C Screening 1999 Hepatitis B vaccine (0-59 yrs) (1) 02/28/2000 DM Urine Microalbumin yearly 11/07/2017 11/07/2016 Breast Cancer Share Decision Needed 2021 Breast Cancer screening 2021 DM Opthalmology Exam 05/16/2021 05/16/2020, 02/23/20 17 HPV test 05/16/2022 05/16/2017 PAP Smear 05/16/2022 05/16/2017 DM Hemoglobin A1c 6 month 06/03/20222021, 08/30/2017, 04/24/2017, Additional history exists DM Creatinine yearly 12/01/2022 12/01/2021, 09/01/2017, 08/29/2017, Additional history exists Covid-19 Vaccine (4 - 2022-2 4 season) 2023 03/06/2021, 08/08/2020, 07/13/2020 Influenza (Flu) vaccine (1 o f 1 - Influenza standard series) 12/22/2023 01/14/2017, 01/31/2016 Lipid Screening 12/01/2026 12/01/2021 Tetanus vaccine 01/14/2027 01/14/2017 Tdap adult Completed 01/14/2017 Procedures Procedure Name Priority Date/Time Associated Diagnosis Comments LIPID PANEL (NO REFLEX) Routine 12/01/2021 11:02 AM EDT Type 2 diabetes mellitus without complication, unspecified whether detention insulin use BASIC METABOLIC PANEL Routine 12/01/2021 11:02 AM EDT Type 2 diabetes mellitus without complication, 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 HC HEMOGLOBIN A1C Routine 12/01/2021 11: 02 AM EDT Type 2 diabetes mellitus without complication, unspecified whether detention insulin use HPV Routine 05/16/2017 4:15 PM EST SAMPLE BOX MAKER CYTOLOGY FINAL REPORT Routine 05/16/2017 4:15 PM EST U ALBUMIN/CRE RATIO Routine 11/07/2016 2 :57 PM EDT Type 2 diabetes mellitus without complication, with long-term current use of insulin from Last 3 Months or Most Recently Relevant to Health Maintenance Results * Lipid Panel (No Reflex) (12/01/2021 11:02 AM EDT) Cholesterol, Total 193 mg/dL [facility] Comment: Lower Risk: <200 mg/dL Average Risk: 200-239 mg/dL Higher Risk: >aa=427 mg/dL Triglyceride 159 mg/dL [facility] Comment: Average Risk/Lower Risk: <150 mg/dL Borderline High Risk: 150-199 mg/dL High Risk: 200-499 mg/dL Very High Risk: >zd=336 mg/dL HDL Cholesterol 34 mg/dL [facility] Comment: Males: ?? Higher Risk: <40 mg/dL Females: ?? Higher Risk: <50 mg/dL LDL Cholesterol 127 mg/dL [facility] Comment: Lowest Risk: <100 mg/dL Lower Risk: 100-129 mg/dL Borderline High Risk: 130-159 mg/dL High Risk: 160-189 mg/dL Very High Risk: >cg=644 mg/dL Cholesterol/HDL Ratio 5.7 ratio [facility] Lipid Interpretation See Note [facility] Comment: Lipid management should be guided by a patient? s ASCVD risk, goals and preferences. ACC/AHA Guidelines recommend high intensity statin if clinical ASCVD or LDL greater than or equal to 190 mg/dL. http://GameFlyurl.com/KLB-JVD-Esedyjxpg Adults aged 40-75 with LDL 70-189 mg/dL should have their 10 year ASCVD risk estimated with the ACC/AHA ASCVD risk truck repair service estimator http://tools.acc.org/HBPOH-Piae-Fibswymxd/ Statin should be discussed if risk greater than or equal to 7.5% in non-diabetics. With diabetes, moderate intensity statin is recommended if risk less than 7.5%, high intensity if risk greater than or equal to 7.5%. Annual lipid monitoring on statins is not necessary. Evaluate secondary causes of Triglycerides greater than 500 mg/dL or LDL greater than 190 mg/dL: See table 6 of ACC/AHA Guideline. Lifestyle modification is a critical component of ASCVD risk reduction. Blood 12/01/2021 11:0 2 AM EDT 12/01/2021 11:20 AM EDT Narrative Resulting Agency Comment Spec In Lab Che MACKEY CHEMISTRY ORDERA MARCUS [facility] [place] [address] * (ABNORMAL) Hemoglobin A1c (12/01/2021 11:02 AM EDT) Hemoglobin A1c 6.3(H) 4.3 - 5.6 % [facility] Comment: Reference Range: 4.3 - 5.6% 5.7 - 6.4% - Increased Risk of Developing Diabetes Mellitus >= 6.5% - Consistent with diagnosis of Diabetes Mellitus In the absence of hyperglycemia (i.e. plasma glucose > 200 mg/dL) or classic symptoms of hyperglycemia a repeat measurement of HbA1c should be performed on a separate sample to confirm the diagnosis. Diagnosis and Classification of Diabetes Mellitus, Diabetes Care 2013; 36: Suppl. 1, S67-74 Estimated Average Glucose 135 mg/dL [facility] Comment: eAG equivalents for HbA1c percentages: HbA1c(%) ?eAG(mg/dL) 6.0 ?126 6.5 ?140 7.0 ?154 7.5 ?169 8.0 ?183 8.5 ?197 9.0 ?212 9.5 ?226 10.0 ? 240 Limitations: The eAG calculation has not been validated on women, individuals below 18 years old and above 70 years old, and individuals with hemoglobinopathies. Additional resources are available on the ADA website. Martin PERRY, Diana J, Alex R, et al. ??Translating the A1C assay into estimated average glucose values. ??Diabetes Care 2008:31(8):8213-0440. Blood 12/01/2021 11:0 2 AM EDT 12/01/2021 11:20 AM EDT Narrative Resulting Agency Comment Spec In Lab Che MACKEY CHEMISTRY MYCHAL VELAZQUEZ [facility] [place] [address] * (ABNORMAL) Basic Metabolic Panel (non-fasting) (12/01/2021 11:02 AM EDT) Glucose 135 65 - 199 mg/dL [facility] Comment:Diabetes: >=200 mg/d L plus symptoms Blood Urea Nitrogen 7(L) 8 - 18 mg/dL [facility] Creatinine 0.70 0.70 - 1.20 mg/dL [facility] Sodium 140 135 - 145 mmol/L [facility] Potassium 3.6 3.5 - 5.0 mmol/L [facility] Comment: Please note: ??Patients with WBC >100,000 may have falsely elevated Potassium levels. ??For accurate Potassium quantification in these patients send serum separator tube (gold top) for subsequent determinations. ??Contact the Clinical Chemistry Laboratory if there are any questions. Chloride 106 98 - 107 mmol/L [facility] Carbon Dioxide 24 22 - 31 mmol/L [facility] Anion Gap 10 5 - 15 mmol/L [facility] Calcium 8.8 8.5 - 10.5 mg/dL [facility] Est Glomerular Filtration Rate 112 >=60 mL/min/1. 73 m?? [facility] Comment: This patient's estimated GFR was calculated using the 2020 CKD-EPI equation. The estimated GFR can vary from the measured GFR by up to 30% in the absence of rapidly changing kidney function. Assessment of the estimated GFR is not appropriate when creatinine concentrations are rapidly changing. For clinical situations in which a more precise estimate of GFR is necessary, consider alternative methods of GFR estimation such as a 24-hour urine creatinine clearance. Assignment of CKD stage 1-5 for patients with an eGFR near the transition point between stages may be based on clinical assessment of muscle mass and symptoms in addition to eGFR. Blood 12/01/2021 11:0 2 AM EDT 12/01/2021 11:20 AM EDT Narrative Resulting Agency Comment Spec In Lab Che MACKEY CHEMISTRY ORDERA [facility] [place] [address] * HPV (05/16/2017 4:15 PM EST) HPV16 NEGATIVE NEGATIVE [facility] HPV 18 NEGATIVE NEGATIVE [facility] HPV Other HR NEGATIVE NEGATIVE [facility] HPV Interpretation See Comment [facility] Comment: NEGATIVE for high-risk HPV *. * Testing negative for high risk HPV means that the specimen is negative for the following 14 types tested: ??types 16, 18, 31, 33, 35, 39, 45, 51, 52, 56, 58, 59, 66, and 68. ??The test is not intended to detect low risk HPV types. Brandon Ralf HPV test Specimen: HPV Testing - Cytology Liquid Based Prep Cervical swab (specimen) 05/16/2017 4:15 PM EST 05/16/2017 5:09 PM EST Narrative Resulting Agency Comment Spec In Lab Rosy Tavarez GO PATHOLOGY/CYTOLOGY O RDERABLES [facility] [place] [address] * Adventure Education Teacher Cytology Final Report (05/16/2017 4:15 PM EST) Adventure Education Teacher Cytology Final Report [id number] ? Location: The signing pathologist has (i) examined the relevant preparation(s) for the specimen(s) and (ii) rendered or confirmed the diagnosis(es). . ? Adventure Education Teacher Final DIAGNOSIS Normal Negative for Intraepithelial Lesion or Malignancy (NILM). For consensus guidelines for the management of cervical cancer screening test results, please see: ?? http://www.asccp.o rg . Electronically signed by: ??Douglas PARDO(ASCP)Geena Verified: ??05/24/2017 ?Swatcher Performed at: ??-[facility] [place], [place], [place] DISCUSSION Shift in ashley suggestive of bacterial vaginosis. HPV RESULTS HPV16 (Result) ?Negative HPV18 (Result) ?Negative HPVOHR (Result) ? Negative HPV (Interpretation) ?See Below HPV (Interpretation) Text: NEGATIVE for high-risk HPV *. *Testing negative for high risk HPV means that the specimen is negative for the following 14 types tested: types 16, 18, 31, 33, 35, 39, 45, 51, 52, 56, 58, 59, 66, and 68. The test is not intended to detect low risk HPV types. Brandon ralf HPV test Specimen: HPV Testing - Cytology Liquid Based Prep The Brandon ralf ? HPV test was validated, performed and results reported through the [facility] ([facility]) at [facility]. ? - Bentley Ross, PhD, HCLD, Director-[facility] STATEMENT OF ADEQUACY Specimen submitted is satisfactory. Endocervical component present. CLINICAL INFORMATION HPV Option: ?Concurrent HPV and Pap Preparation: ? Liquid based Pap Specimen Source: ? Cervical/Endocervi esteban/Vaginal LMP: ? 05/01/2017 Hormones?: ? No Hysterectomy?: ? No ?: ? No ?: ? No I.U.D.?: ? No Pelvic Radiation: ?No Prior SAMPLE BOX MAKER Therapy?: ?No Hist Abnl Pap/Biopsy?: ?? No Hist of HPV Vaccine?: ?No Hist of Smoking?: ?No Hist of ACE exposure?: ?? No . CLINICAL INFORMATION ICD Diagnosis: ? Z12.4 Encounter for screening for malignant neoplasm of cervix Clinical Data, Significant Therapy and Clinical Impression ?? : ?_ This Pap Test has been evaluated with the assistance of the [employer] Pap Test Imaging System. Note: The Pap test is a screening test for cervical cancer with an inherent false-negative rate dependent upon several variables. For further information please contact the [facility]. Reference: Brett CARTER. Seismograph Helper of Pap Smear Results. In: Yessenia BS, Foster HH, ed. The Pap Smear. [place]: Shahram, 2002: 71-77. [facility] 05/16/2017 4:15 PM EST Rosy Tavarez TOOL TROUBLE SHOOTER PATHOLOGY/CYTOLOGY O RDERABLES Performing Organization Address [facility]/ZIP Co de Phone Number [facility] [place] [address] * U Albumin/Cre Ratio (11/07/2016 2:57 PM EDT) Albumin / Creatinin Ratio, Urine 4 0 - 29 mcg/mg Cr [facility] Comment: Reference Ranges: <30 mcg/mg: Normal 30-300 mcg/mg: Moderately increased albuminuria.* >300 mcg/mg: Severely increased albuminuria. * ACEI or ARB recommended if diabetic; suggested if BP>130/80 without diabetes ACEI or ARB strongly recommended if diabetic; recommended if BP>130/80 without diabetes Two of three specimens collected within a 3 to 6 month period should be abnormal before considering a patient to have albuminuria. Transient causes: exercise, fever, infection, CHF, marked hyperglycemia or hypertension. Persistent albuminuria indicates CKD and is an independent risk factor for ASCVD. ADA Standards of Medical Care in Diabetes-2016; KDIGO: Kidney International Supplements (2012) 2, 357? 362 Albumin, Urine 9.9 mg/L [facility] Creatinine, Urine 224 mg/dL [facility] Urine specimen (specimen) 11/07/2016 2:57 PM EDT 11/07/2016 3:07 PM EDT Narrative Resulting Agency Comment Spec In Lab Giacomo Obrien DO URINE ORDERABLES Performing Organization Address [facility]/ZIP Co de Phone Number [facility] [place] [address] from Last 3 Months or Most Recently Relevant to Health Maintenance Advance Directives * Full Code (Latest Code Status on File) Date Activated Date Inactivated Comments 09/01/2017 1:27 AM 09/01/2017 4:51 PM Question Answer Comments Does patient have capacity to make decision: Yes Care Teams Director Cardiology Relationship Specialty Start Date End Date Che Sharpe PA [address] [place] [address] [place] [address] PCP - General Internal Medicine 04/20/20
--- OUTSIDE RECORDS SUMMARY | 2024-01-03 01:04 | XMS_ITS | Encounter Summary ---
Author Organization [place] [address] Care Team Providers Care Engineering Scientist Name Role Phone Che Sharpe Primary Care Provider + Reason for Visit * Reason Comments Follow-up Encounter Details Date Type Department Care Team (Latest Contact Info) Description 02/01/2022 4:00 PM EDT Office Visit Hematology [place] [address] Pelon Wisdom MD [facility] [address] HEM[place]Y [place] [address] Oksana Payne APRN [facility] [address] [place] [address] Taina Oliver MD [facility] [address] HEMATOLOGY/[place] [address] Hemochromatosis associated with compound heterozygous mutation in [...] Sign Reading Time Taken Comments Blood Pressure 117/69 02/01/2022 4:04 PM EDT Pulse 77 02/01/2022 4:04 PM EDT Temperature 36.2 ??C (97.2 ??F) 02/01/2022 4:04 PM ED T Respiratory Rate 14 02/01/2022 4:04 PM EDT Oxygen Saturation 100% 02/01/2022 4:04 PM EDT Inhaled Oxygen Concentration - - Weight 80.5 kg (177 lb 7.5 oz) 02/01/2022 4:04 P M EDT Height 165.2 cm (5' 5.04) 02/01/2022 4:04 PM ED T Body Mass Index 29.5 02/01/2022 4:04 PM EDT documented in this encounter Progress Notes * Oksana Payne APRN - 02/01/2022 4:00 PM EDT Images from the original note were not included. HEMATOLOGY CONSULTATION VISIT NOTE DATE OF VISIT : 02/01/22 REASON FOR VISIT: Emma Min is a 41 y.o. female referred by Che Doyle for evaluation of hemochromatosis. The history is obtained from the patient, and I also have reviewed all the available medical records provided by the referring physician and located in the electronic medical records. HISTORY OF PRESENT ILLNESS Emma Min is a 41 y.o. female with PMH of type II [...] INTERIM Hx: In office today, Emma Min is here for initial consultation. Last phlebotomy about 2 weeks ago. Energy and health all around have improved since diagnosed. Saw endocrinology- on an insulin pump now with better control. Headaches and migraines very rarely- much improved. Alert and less fatigued. Arthritis is ongoing. Sciatica has been a big issue for her- has been to PT. Saw pain management and didn't qualify for injection. -Ongoing stomach issues, abdominal pain, - has seen gastroenterology- has had upper GI & colo. Dx with ulcer. -She does not sleep much - She was taking MV for 2 months, stopped 3 months ago. - Not on iron and vitamin C - Does not use cast iron utensils - Eats read meat probably once a week - does not get Menstrual periods as she gets the depot shot. - No active cardiac/resp/GI issues; Rest of the ROS: Negative REVIEW OF SYSTEMS Constitutional --Energy level: as above --Pain: as above --Fevers/chills/sweats: No --Unexpected weight loss or gain: No Eyes - No change in vision Ears, nose, throat - No change hearing, no oral or throat pain or thrush Cardiovascular --SOB: No -- Palpitations: No --chest pain: No Respiratory --Cough: No --SOB, UMANA: No Gastrointestinal as above Genitourinary --Dysuria or hematuria: No Musculoskeletal --Muscle pain or weakness: No --Joint pain or swelling: as above Immune System --Recent infections: No Hematology/Lymph --Bruising/bleeding/melena: No --Enlarged nodes or other masses: No Skin --Rashes or petechiae: No Neuro - No Psych: -Anxiety, depressed mood, suicidal or homicidal ideation : No Other ROS: All negative PROBLEM LIST Patient Active Problem List Diagnosis ??? Seizure-like activity ??? Depression ??? Anxiety ??? Gastroesophageal reflux disease without esophagitis ??? Uncontrolled diabetes mellitus type 2 without complications PAST SURGICAL Hx: No past surgical history on file. MEDICATIONS ??? insulin pump cart,auto,BT/cntr (OMNIPOD 5 G6 INTRO KIT, GEN 5, SUBQ) ??? Blood-Glucose Sensor (Dexcom G6 Sensor) Device ??? omeprazole (PriLOSEC) 40 mg Capsule, Delayed Release(E.C.) ??? Ozempic 1 mg/dose (4 mg/3 mL) Pen Injector ??? medroxyPROGESTERone (Depo-PROVERA) 150 mg/mL Suspension ??? acyclovir (ZOVIRAX) 200 mg Capsule ??? acetaminophen (TYLENOL) 500 mg Tablet ??? glucose (DEX4 GLUCOSE) 4 gram Tablet, Chewable ??? nitrofurantoin (Macrobid) 100 mg Capsule ??? ibuprofen (Advil;Motrin) 800 mg Tablet ALLERGIES/ADR Allergies Allergen Reactions ??? Latex ??? Other [Unclassified Drug] Anaphylaxis Any type of SSRI ??? Quetiapine Anaphylaxis All anti depressant medications ??? Paroxetine Hcl CIS - Edema ??? Lactose ??? Metformin Diarrhea PERSONAL and SOCIAL HISTORY ?? Lives in: [place], [place], [place] from [facility]. [facility] is the closest hospital. ?? 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 ?? ETOH: occasional ?? Smoking: No ?? HIPPA Contact Permission: OK to leave voice mail on phone. ?? FAMILY HISTORY Family History Problem Relation Age of Onset ??? Hyperlipidemia Mother ??? Hyperlipidemia Father ??? Depression Father ??? Bipolar Disorder Sister ??? Diabetes Maternal Aunt ??? Diabetes Maternal Grandfather ??? Amblyopia Neg Hx ??? Cancer Neg Hx ??? Cataracts Neg Hx ??? Glaucoma Neg Hx ??? Hypertension Neg Hx ??? Macular Degeneration Neg Hx ??? Retinal Detachment Neg Hx ??? Strabismus Neg Hx ??? Thyroid Disease Neg Hx ??? Heart Disease Neg Hx Her mother is diagnosed with same HFE gene mutation, so also her step sister. She has 2 biological children, 16 and 18 years old. No other FH of blood disorders. She does not know about cancers in the family PHYSICAL EXAM VITAL SIGNS: Blood pressure 117/69, pulse 77, temperature 36.2 ??C (97.2 ??F), resp. rate 14, height 165.2 cm (5' 5.04), weight 80.5 kg (177 lb 7.5 oz), SpO2 100 %. ECOG PS: 0 GENERAL: Emma Min is a well-appearing 41 y.o. female in no acute distress. HEENT: Eyes: b/l PERRL, no conjunctival pallor , no scleral icterus; Sinuses: non-tender; Oropharynx : moist , clear, No lesions, No thrush. ENDOCRINE: Not evaluated. CARDIOVASCULAR: Heart with regular rate and rhythm without S3,S4 or murmurs. PULMONARY: Lungs are clear to auscultation without rales, rhonchi or wheezing. GASTROINTESTINAL: Abdomen soft and non-tender without palpable masses MUSCULOSKELETAL: Neck supple with full ROM. No spine or CVA tenderness. SKIN: No rashes, bruises or petechiae. LYMPH: No abnormal lymphadenopathy. NEUROLOGICAL: Alert and oriented to person, place and time; No focal neurological deficits; EXT: No peripheral edema. PSYCHIATRIC: normal affect and mood LABORATORY Recent Results (from the past 72 hour(s)) Ferritin Result Value Ref Range Ferritin 41 15 - 150 ng/mL Iron and TIBC Result Value Ref Range Iron 44 30 - 150 mcg/dL TIBC 286 250 - 450 mcg/dL Iron Saturation 15 (L) 20 - 50 % Hemogram Result Value Ref Range WBC 6.4 4.0 - 9.5 x10(3)/mcL RBC 3.47 (L) 4.00 - 5.21 x10(6)/mcL Hemoglobin 11.8 11.7 - 15.5 g/dL Hematocrit 33.9 (L) 35.7 - 45.8 % MCV 97.7 (H) 82.6 - 94.4 fL MCH 34.0 (H) 27.1 - 32.0 pg MCHC 34.8 31.7 - 35.0 g/dL Platelets 330 145 - 357 x10(3)/mcL RDWSD 44.7 37.0 - 46.0 fL RDWCV 12.5 11.5 - 14.1 % MPV 10.4 7.6 - 12.9 fL nRBC % Auto 0.0 % nRBC Abs Auto 0.000 0.000 - 0.000 x10(3)/mcL Differential, Automated Result Value Ref Range Neutrophils % 56.4 % Neutr Abs (ANC) 3.64 1.70 - 6.10 x10(3)/mcL Lymphocytes % 30.4 % Lymphocytes Abs 2.0 0.9 - 3.2 x10(3)/mcL Monocytes % 7.9 % Monocyte Abs 0.5 0.3 - 0.9 x10(3)/mcL Eosinophils % 4.2 % Eosinophils Abs 0.3 0.0 - 0.4 x10(3)/mcL Basophils % 0.8 % Basophils Abs 0.0 0.0 - 0.1 x10(3)/mcL Immature Gran % 0.30 % Iva Gran Abs 0.02 0.00 - 0.04 x10(3)/mcL RADIOLOGY - None ASSESSMENT & PLANS Emma Min is a 41 y.o. female with PMH of type II DM, referred for evaluation of compound heterozygous state. We discussed about the diagnosis of the hemochromatosis, compound heterozygous state, the inheritance pattern, the typical presentation, lifestyle modification to minimize the risk of iron overload, treatment with phlebotomies, the side effects and precautions for phlebotomies, the implications to her children (2 daughters) etc at length. I recommended genetic testing of her 18 year old daughter and checking ferritin level for her 16 year old daughter now and genetic testing when she becomes 19 years of age. Initiated phlebotomies of 500 ml every 3 weeks, for Ferritin at 798 with iron saturation of 41%. Phlebotomies were arranged at [facility] but due to her difficulty with IV access, she has been coming to [facility] for phlebotomies. Her Ferritin has come down nicely to 41 with iron saturation of 15%. She is feeling much better andher phlebotomies have been spaced out to once every 3 months. We will plan to see her in 1 year with CBC, ferritin, iron/TIBC. She understands to reach out in the interim should she have questions or concerns. Oksana Payne, MSN, WATCHMAKER APPRENTICE [facility] Hematology/[place] [address] Pager: [phone] CC: NARENDRA Gary Elizabeth C documented in this encounter Plan of Treatment Upcoming Encounters Date Type Department Care Team (Late st Contact Info) Description 12/03/2024 1:00 PM EDT Appointment Hematology and Oncology at [place] [phone] 12/03/2024 2:00 PM EDT Office Visit Hematology and Oncology at [place] [phone] Pelon Wisdom MD [facility] DR [place]AT[place] [address] Oksana Payne APRN [facility] [address] [place]EMATOLOGY [place] [address] documented as of this encounter Visit Diagnoses Diagnosis Hemochromatosis associated with compound heterozygous mutation in HFE gene documented in this encounter Care Teams Engineering Scientist Relationship Specialty Start Date End Date Che Sharpe PA [address] [place] [address] [place] [id number] PCP - General Internal Medicine 04/20/20 documented as of this encounter
--- OUTSIDE RECORDS SUMMARY | 2024-01-03 01:04 | XMS_ITS | Encounter Summary ---
Author Organization [facility] Address [facility] [place] [address] Care Team Providers Care Centrifugal Supervisor Name Role Phone Che Sharpe Primary Care Provider + Encounter Details Date Type Department Care Team (Late st Contact Info) Description 03/01/2022 Notes [place] [phone] Juan David Zaragoza PA [address] [place] [address] [place] [address] Social History Tobacco Use Types Packs/Day Years [...] place to sleep or slept in a snf (including now)? No 07/20/2021 Sex and Gender Information Value Date Recorded Sex Assigned at Not on file Gender Identity Not on file Sexual Orientation Not on file documented as of this encounter Progress Notes * Juan David Zaragoza PA - 03/01/2022 9:23 AM EST Endoscopy Triage Review Procedure: Colonoscopy Indication: Diarrhea, 8-10 BMs daily Sedation: IVCS Timeframe: within non-urgent Specific provider: first available OV needed: No Anticoagulation status: no documented anticoagulation use Notes for schedulers: > 12 months since order. If patient is no longer experiencing symptoms, may cancel the case if they decline to schedule. Offer follow-up with Jessica Zelaya APRN. documented in this encounter Plan of Treatment Upcoming Encounters Date Type Department Care Team (Late st Contact Info) Description 12/03/2024 1:00 PM EDT Appointment Hematology [place] [phone] 12/03/2024 2:00 PM EDT Office Visit Hematology [place] [phone] Pelon Wisdom MD [facility] DR HEMATOLOGY [place] [address] Oksana Payne APRN [facility] [place]AT[place] [address] documented as of this encounter Visit Diagnoses Not on filedocumented in this encounter Care Teams Centrifugal Supervisor Relationship Specialty Start Date End Date Yasewicz, Che C, PA [address] [place] [address] [place] [address] PCP - General Internal Medicine 04/20/20 documented as of this encounter
--- OUTSIDE RECORDS SUMMARY | 2024-01-03 01:04 | XMS_ITS | Encounter Summary ---
Author Organization [facility] [place] [address] Care Team Providers Care Potato Inspector Name Role Phone Che Sharpe Primary Care Provider + Reason for Visit * Reason Comments Procedure * Consultation (Routine) - Closed Specialty Diagnoses / Procedures Referred By Contlaura t Referred To Contact Diagnoses Hemochromatosis associated with compound heterozygous mutation in HFE gene Pelon Wisdom MD [facility] [address] [place] [address] [facility] [place] [address] Referral ID Status Reason Start Date Expiration Date V isits Requested Visits Authorized [id number] Closed Consult, Test & Treat 08/08/2022 08/08/2023 3 3 Encounter Details Date Type Department Care Team (Latest Contact Info) Description 05/02/2023 10:30 AM EST - 05/02/2023 11:59 PM [facility] Hospital Encounter [place] [address] Hemochromatosis, unspecified hemochromatosis type Discharge [...] place to sleep or slept in a fdc (including now)? No 07/20/2021 Sex and Gender [...] 05/02/2023 11:[address] Respiratory Rate - - Oxygen Saturation - [...] Blood-Glucose Sensor (Dexcom G6 Sensor) Device by [employer].(Non-Drug; Combo Route) route. omeprazole (PriLOSEC) 40 mg [...] as of this encounter Progress Notes * Ana Renee, - 05/02/2023 12:59 PM EST Transfusion Medicine Service Therapeutic Phlebotomy Procedure Type: Therapeutic Phlebotomy Requesting Physician: Pelon Tomlinson Date of Procedure: 05/02/2023 Treatment Pathway: Hemochromatosis/Iron Overload Program Frequency of Phlebotomy: Every 3 Months Criteria for Performance of Therapeutic Phlebotomy: Hemoglobin greater than 11 g/dL Pre-Collection Hemoglobin value: 11.9 g/dL Criteria for Therapeutic Phlebotomy Met? Yes Volume Drawn (mL): 500 Volume Replaced (mL): 500 mL 0.9% normal saline Vital Signs: Blood Pressure: 139/51 mmHg Temperature: 36.4 ??C (97.5 ??F) degrees C Pulse: 90 bpm Therapeutic Goal: Ferritin (ng/mL) less than: 100 Frequency of Ferritin Monitoring: Every phlebotomy Ferritin Drawn Today? Yes Reaction: No PHYSICIAN ASSESSMENT AND PLAN: I have reviewed the procedure note and the patient medical record. 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 The current treatment regimen remains appropriate. Recent Labs 05/02/23 1215 02/07/23 1051 10/19/22 1600 07/19/22 1240 FERRITIN 42 51 51 50 Ana Renee, 05/02/2023 documented in this encounter Plan of Treatment Upcoming Encounters Date Type Department Care Team (Late st Contact Info) Description 12/03/2024 1:00 PM EDT Appointment [place] [phone] 12/03/2024 2:00 PM EDT Office Visit [place]ology [place] [phone] Pelon Wisdom MD [facility] [place] [address] Oksana Payne APRN [facility] [address] [place] [address] Scheduled Orders Name Type Priority Associated Diagnoses Orde r Schedule POCT HGB Point of Care Testing Routine Hemochromatosis, unspecified hemochromatosis type Ordered: 05/02/2023 documented as of this encounter Procedures Procedure Name Priority Date/Time Associated Diagnosis Comments FERRITIN Routine 05/02/2023 12:15 PM EST Hemochromatosis, unspecified hemochromatosis type documented in this encounter Results * Ferritin (05/02/2023 12:15 PM EST) Ferritin 42 6 - 175 ng/mL [facility] Comment: Please note that as of 03/27/2023, the reference intervals for Ferritin have been updated. Blood 05/02/2023 12:1 5 PM EST 05/02/2023 12:29 PM EST Narrative Resulting Agency Comment Spec In Lab Kolton Boss MD CHEMISTRY ORDERABLES [facility] [place] [address] documented in this encounter Visit Diagnoses Diagnosis Hemochromatosis, unspecified hemochromatosis type documented in this encounter Administered Medications Inactive Administered Medications - up to 3 most recent administrations Medication Order MAR Action Action Date Dose Rate Site sodium chloride 0.9% infusion 500 mL, Intravenous, ONCE, 1 dose, On Fara 05/02/23 at 1245, PRN New Bag 05/02/2023 12:20 PM EST 500 mLs documented in this encounter Care Teams Potato Inspector Relationship Specialty Start Date End Date Che Sharpe PA [address] [place] [address] [place] [address] PCP - General Internal Medicine 04/20/20 documented as of this encounter
--- OUTSIDE RECORDS SUMMARY | 2024-01-03 01:04 | XMS_ITS | Encounter Summary ---
Author Organization [facility] [place] [address] Care Team Providers Care Medical Social Worker Name Role Phone Che Sharpe Primary Care Provider + Reason for Visit * Reason Comments Procedure * Consultation (Routine) - Closed Specialty Diagnoses / Procedures Referred By Contlaura t Referred To Contact Diagnoses Hemochromatosis associated with compound heterozygous mutation in HFE gene Pelon Wisdom MD [facility] [place] [address] [facility] [place] [address] Referral ID Status Reason Start Date Expiration Date V isits Requested Visits Authorized [id number] Closed Consult, Test & Treat 08/15/2021 08/15/2022 18 18 Encounter Details Date Type Department Care Team (Latest Contact Info) Description 07/19/2022 10:00 AM EDT - 07/19/2022 11:59 PM EDT Hospital Encounter [place] [address] Hemochromatosis, unspecified hemochromatosis type Discharge [...] place to sleep or slept in a correction (including now)? No 07/20/2021 Sex and Gender Information Value Date Recorded Sex Assigned at Not on file Gender Identity Not on file Sexual Orientation Not on file documented as of this encounter Last Filed Vital Signs Vital Sign Reading Time Taken Comments Blood Pressure 102/58 07/19/2022 11:00 AM EDT Pulse 85 07/19/2022 11:00 AM EDT Temperature 36.4 ??C (97.6 ??F) 07/19/2022 11:00 AM E DT Respiratory Rate - - Oxygen Saturation - - Inhaled Oxygen Concentration - - Weight 80.3 kg (177 lb) 07/19/2022 11:00 AM EDT Height - - Body Mass Index 29.42 02/01/2022 4:04 PM EDT documented in this encounter Medications at Time of Discharge Medication Sig Dispensed Refills Start Date End Date insulin lispro (HUMALOG KWIKPEN INSULIN SUBQ) Inject 8 Units subcutaneously 3 times daily (with meals). 10/16/2021 insulin pump cart,auto,BT/cntr (OMNIPOD 5 G6 INTRO KIT, GEN 5, SUBQ) Inject subcutaneously. Blood-Glucose Sensor (Dexcom G6 Sensor) Device by [facility].(Non-Drug; Combo Route) route. omeprazole (PriLOSEC) 40 mg [...] as of this encounter Progress Notes * Joleen Mc MD - 07/19/2022 11:47 AM EDT Transfusion Medicine Service Therapeutic Phlebotomy Procedure Type: Therapeutic Phlebotomy Requesting Physician: Pelon Tomlinson Date of Procedure: 07/19/2022 Treatment Pathway: Hemochromatosis/Iron Overload Program Frequency of Phlebotomy: Every 3 Months Criteria for Performance of Therapeutic Phlebotomy: Hemoglobin greater than 11 g/dL Pre-Collection Hemoglobin value: 12.7 g/dL Criteria for Therapeutic Phlebotomy Met? Yes Volume Drawn (mL): 498 (108 ML 1st IV left arm, 390 ml 2nd IV right arm) Volume Replaced (mL): 500 mL 0.9% normal saline Vital Signs: Blood Pressure: 102/58 mmHg Temperature: 36.4 ??C (97.6 ??F) degrees C Pulse: 85 bpm Therapeutic Goal: Ferritin (ng/mL) less than: 100 Frequency of Ferritin Monitoring: Every phlebotomy Ferritin Drawn Today? Yes Reaction: No PHYSICIAN ASSESSMENT AND PLAN: I have reviewed the procedure note and the patient medical record. Thispatient with hemochromatosis??(compound heterozygous for??C282Y??and??H63D??variants)??requires on-going therapeutic phlebotomy.The current treatment regimen remains appropriate. Recent Labs 07/19/22 1240 05/11/22 1450 02/01/22 1453 01/19/22 1130 12/26/21 1230 10/05/21 1152 FERRITIN 50 63 41 71 129 316* Joleen Mc MD 07/19/2022 Associated attestation - Kiki Harper MD - 07/19/2022 5:19 PM EDT ATTENDING MD ATTESTATION: I reviewed the clinical note and agree with the assessment and plan presented by Dr. Mc. Kiki Harper MD 07/19/2022 documented in this encounter Miscellaneous Notes * Addendum Note - Kiki Harper MD - 07/19/2022 5:19 PM EDTEncounter addended by: Kiki Harper MD on: 07/19/2022 5:19 PM Actions taken: Cosign clinical note with attestation, Charge Capture section accepted documented in this encounter Plan of Treatment Upcoming Encounters Date Type Department Care Team (Late st Contact Info) Description 12/03/2024 1:00 PM EDT Appointment Hematology [place] [address] 12/03/2024 2:00 PM EDT Office Visit Hematology [place] [address] Pelon Wisdom MD [facility] [address] [place] [address] Oksana Payne APRN [facility] [place] [address] Scheduled Orders Name Type Priority Associated Diagnoses Orde r Schedule POCT HGB Point of Care Testing Routine Hemochromatosis, unspecified hemochromatosis type Ordered: 07/19/2022 documented as of this encounter Procedures Procedure Name Priority Date/Time Associated Diagnosis Comments FERRITIN Routine 07/19/2022 12:40 PM EDT Hemochromatosis, unspecified hemochromatosis type documented in this encounter Results * Ferritin (07/19/2022 12:40 PM EDT) Ferritin 50 15 - 150 ng/mL [facility] Comment: Pediatric reference ranges not verified at [facility], interpret with caution. Reference ranges for females greater than 50 years of age approach values for men, i.e., 30-400 ng/mL. Blood 07/19/2022 12:4 0 PM EDT 07/19/2022 12:44 PM EDT Narrative Resulting Agency Comment Spec In Lab Kolton Boss MD CHEMISTRY ORDERABLES [facility] [place] [address] documented in this encounter Visit Diagnoses Diagnosis Hemochromatosis, unspecified hemochromatosis type documented in this encounter Administered Medications Inactive Administered Medications - up to 3 most recent administrations Medication Order MAR Action Action Date Dose Rate Site sodium chloride 0.9% infusion 500 mL, Intravenous, ONCE, 1 dose, On Fara 07/19/22 at 1100, PRN New Bag 07/19/2022 12:45 PM EDT 500 mLs documented in this encounter Care Teams Medical Social Worker Relationship Specialty Start Date End Date Che Sharpe PA [address] [place] [address] [place] [address] PCP - General Internal Medicine 04/20/20 documented as of this encounter
--- OUTSIDE RECORDS SUMMARY | 2024-01-03 01:04 | XMS_ITS | Encounter Summary ---
[place] [address] Care Team Providers Care Cinema Operator Name Role Phone Che Sharpe Primary Care Provider + Reason for Referral * Consultation (Routine) - Closed Specialty Diagnoses / Procedures Referred By Contac t Referred To Contact [facility] Diagnoses Displacement of lumbar intervertebral disc without myelopathy Spine-Low back pain w/LE pain/MRI 09/14/22 @ [facility](faxed x1)/tried PT non op Carmen Astorga APRN [address] [place] [address] [facility] [place] [address] Referral ID Status Reason Start Date Expiration Date V isits Requested Visits Authorized [id number] Closed Consult, Test & Treat PCP Updated and/or Approved 09/20/2022 03/22/2023 1 1 Encounter Details Date Type Department Care Team (Latest Contact Info) Description 09/30/2022 Transcribe Orders eDH Incoming Referrals [phone] Carmen Astorga APRN [address] [place] [phone] Displacement of lumbar intervertebral disc without myelopathy Social History Tobacco Use Types Packs/Day Years [...] PM EDT Appointment H[place] [address] 12/03/2024 2:00 PM EDT Office Visit Hematology [place] [phone] Pelon Wisdom MD [facility] HEMATOLOGY [place] [address] Oksana Payne APRN [facility] HEMATOLOGY [place] [address] Scheduled Referrals Name Type Priority Associated Diagnoses Orde r Schedule Referral to Spine Center Outpatient Referral Routine Displacement of lumbar intervertebral disc without myelopathy Ordered: 09/30/2022 documented as of this encounter Visit Diagnoses Diagnosis Displacement of lumbar intervertebral disc without myelopathy documented in this encounter Care Teams Cinema Operator Relationship Specialty Start Date End Date Che Sharpe PA [address] [place] [address] [place] [address] PCP - General Internal Medicine 04/20/20 documented as of this encounter
--- OUTSIDE RECORDS SUMMARY | 2024-01-03 01:04 | XMS_ITS | Encounter Summary ---
Author Organization [facility] Address [facility] [place] [address] Care Team Providers Care [employer] Name Role Phone Ceh Sharpe Primary Care Provider + Encounter Details Date Type Department Care Team (Latest Contact Info) Description 07/15/2022 Travel Social History Tobacco Use Types Packs/Day [...] PM EDT Appointment [place] [address] 12/03/2024 2:00 PM EDT Office Visit [place]ology [place] [address] Pelon Wisdom MD [facility] DR HEMATOLOGY [place] [address] Oksana Payne APRN [facility] DR HEMATOLOGY [place] [address] documented as of this encounter Visit Diagnoses Not on filedocumented in this encounter Care Teams [employer] Relationship Specialty Start Date End Date Che Sharpe PA [address] [place] [address] [place] [address] PCP - General Internal Medicine 04/20/20 documented as of this encounter
--- OUTSIDE RECORDS SUMMARY | 2024-01-03 01:04 | XMS_ITS | Encounter Summary ---
Author Organization [facility] [place] [address] Care Team Providers Care Printed Circuit Layout Taper Name Role Phone Che Sharpe Primary Care Provider + Reason for Visit * Reason Comments Procedure Encounter Details Date Type Department Care Team (Latest Contact Info) Description 12/26/2021 10:21 AM EDT - 12/26/2021 11:59 PM EDT Hospital Encounter [place] [address] Familial hemochromatosis; Hemochromatosis associated with compound heterozygous mutation in [...] place to sleep or slept in a care home (including now)? No 07/20/2021 Sex and Gender Information Value Date Recorded Sex Assigned at Not on file Gender Identity Not on file Sexual Orientation Not on file documented as of this encounter Last Filed Vital Signs Vital Sign Reading Time Taken Comments Blood Pressure 128/72 12/26/2021 12:45 PM EDT Pulse 101 12/26/2021 12:45 PM EDT Temperature 36.4 ??C (97.5 ??F) 12/26/2021 12:45 PM E DT Respiratory Rate - - Oxygen Saturation - - Inhaled Oxygen Concentration - - Weight 74.8 kg (165 lb) 12/26/2021 12:00 PM EDT Height 162.6 cm (5' 4) 12/26/2021 12:00 PM EDT Body Mass Index 28.32 12/26/2021 12:00 PM EDT documented in this encounter Medications at Time of Discharge Medication Sig Dispensed Refills Start Date End Date insulin lispro (HUMALOG KWIKPEN INSULIN SUBQ) Inject 8 Units subcutaneously 3 times daily (with meals). 10/16/2021 omeprazole (PriLOSEC) 40 mg Capsule, Delayed Release(E.C.) [...] 35 capsule 11/12/2017 acetaminophen (TYLENOL) 500 mg TabletIndications:P ain, chest wall Take 2 tablets by mouth every 6 hours as needed for Pain. 30 tablet 1 03/12/2017 glucose (DEX4 GLUCOSE) 4 gram Tablet, Chewable Take 4 tablets by mouth as needed for Low blood sugar. 90 tablet 11 11/07/2016 Lantus Solostar U-100 Insulin 100 unit/mL (3 mL) pen 07/26/2021 glipiZIDE XL (Glucotrol XL) 10 mg Tablet Extended Rel 24 hr Take 10 mg by mouth daily. 06/20/2021 02/01/2022 amitriptyline (Elavil) 100 mg Tablet Take 100 mg by mouth nightly. 02/01/2022 documented as of this encounter Progress Notes * Pj Chung DO - 12/26/2021 11:24 AM EDTSummary: TP; hemochromatosis Transfusion Medicine Service Therapeutic Phlebotomy Procedure Type: Therapeutic Phlebotomy Requesting Physician: Pelon Tomlinson Date of Procedure: 12/26/2021 Treatment Pathway: Hemochromatosis/Iron Overload Program Frequency of Phlebotomy: Every 3 Weeks Criteria for Performance of Therapeutic Phlebotomy: Hemoglobin greater than 11 g/dL Pre-Collection Hemoglobin value: 13.1 g/dL Criteria for Therapeutic Phlebotomy Met? Yes Volume Drawn (mL): 483 Volume Replaced (mL): 500 0 mL 0.9% normal saline Vital Signs: Blood Pressure: 128/72 mmHg Temperature: 36.4 ??C (97.5 ??F) degrees C Pulse: (!) 101 bpm Therapeutic Goal: Ferritin (ng/mL) less than: 100 Frequency of Ferritin Monitoring: Every phlebotomy Ferritin Drawn Today? Yes Reaction: No Comments: (IV placed by IV Team RN, TP and Fluids provided by KYLAH Padron) Previously unsuccessful IV access, unable to complete TP 12/22/21 , patient returning today (12/26/21), had successful access and procedure. PHYSICIAN ASSESSMENT AND PLAN: I have reviewed the procedure note and the patient medical record. 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 The current treatment regimen remains appropriate. Patient is coming closer to therapeutic goal, will reassess frequency of phlebotomies at next visit. Recent Labs 12/26/21 1230 10/05/21 1152 07/31/21 0800 07/27/21 1221 FERRITIN 129 316* 678* 798* Pj Chung DO 12/26/2021 Associated attestation - Aline Molina MD - 12/26/2021 5:32 PM EDT ATTENDING MD ATTESTATION: I reviewed the clinical note and agree with the assessment and plan presented by Dr. Chung. This patient is expected to be within target ferritin range at next visit and can transition to a maintenanceschedule. I recommend we start with Q3 months and continue to monitor ferritin. Please update orders at next visit. ALINE MOLINA MD 12/26/2021 documented in this encounter Miscellaneous Notes * Addendum Note - Aline Molina MD - 12/26/2021 5:32 PM EDTEncounter addended by: Aline Molina MD on: 12/26/2021 5:32 PM Actions taken: Cosign clinical note with attestation documented in this encounter Plan of Treatment Upcoming Encounters Date Type Department Care Team (Late st Contact Info) Description 12/03/2024 1:00 PM EDT Appointment Hematology [place] [address] 12/03/2024 2:00 PM EDT Office Visit Hematology [place] [address] Pelon Wisdom MD [facility] [address] [place] [address] Oksana Payne APRN [facility] [place] [address] documented as of this encounter Procedures Procedure Name Priority Date/Time Associated Diagnosis Comments HC FERRITIN, SERUM Routine 12/26/2021 12 :30 PM EDT Hemochromatosis associated with compound heterozygous mutation in HFE gene documented in this encounter Results * Ferritin (12/26/2021 12:30 PM EDT) Ferritin 129 15 - 150 ng/mL [facility] Comment: Pediatric reference ranges not verified at [facility], interpret with caution. Reference ranges for females greater than 50 years of age approach values for men, i.e., 30-400 ng/mL. Blood 12/26/2021 12:3 0 PM EDT 12/26/2021 2:19 PM EDT Narrative Resulting Agency Comment Spec In Lab Pelon Wisdom MD CHEMISTRY ORDERA BLES 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
--- OUTSIDE RECORDS SUMMARY | 2024-01-03 01:04 | XMS_ITS | Encounter Summary ---
Author Organization [facility] [address] Care Team Providers Care Lcac Radar Operator/Navigator Name Role Phone Che Sharpe Primary Care Provider + Reason for Visit * Reason Comments Procedure * Consultation (Routine) - Closed Specialty Diagnoses / Procedures Referred By Contlaura t Referred To Contact Diagnoses Hemochromatosis associated with compound heterozygous mutation in HFE gene Pelon Wisdom MD [facility] [address] [place] [address] [facility] [place] [address] Referral ID Status Reason Start Date Expiration Date V isits Requested Visits Authorized [id number] Closed Consult, Test & Treat 08/15/2021 08/15/2022 18 18 Encounter Details Date Type Department Care Team (Latest Contact Info) Description 01/19/2022 10:23 AM EDT - 01/19/2022 11:59 PM EDT Hospital Encounter [place] [address] Hemochromatosis, unspecified hemochromatosis type Discharge [...] Sign Reading Time Taken Comments Blood Pressure 126/66 01/19/2022 11:40 AM EDT Pulse 78 01/19/2022 11:40 AM EDT Temperature 36.6 ??C (97.9 ??F) 01/19/2022 11:40 AM E DT Respiratory Rate - - Oxygen Saturation - - Inhaled Oxygen Concentration - - Weight 74.8 kg (165 lb) 01/19/2022 11:40 AM EDT Height - - Body Mass Index 28.32 12/26/2021 12:00 PM [...] as of this encounter Progress Notes * Edith Villafuerte MD - 01/19/2022 8:53 AM EDT Transfusion Medicine Service Therapeutic Phlebotomy Procedure Type: Therapeutic Phlebotomy Requesting Physician: Pelon Tomlinson Date of Procedure: 01/19/2022 Treatment Pathway: Hemochromatosis/Iron Overload Program Frequency of Phlebotomy: Every 3 Weeks Criteria for Performance of Therapeutic Phlebotomy: Hemoglobin greater than 11 g/dL Pre-Collection Hemoglobin value: 14 g/dL Criteria for Therapeutic Phlebotomy Met? Yes Volume Drawn (mL): 500 Volume Replaced (mL): 0 mL 0.9% normal saline Vital Signs: Blood Pressure: 126/66 mmHg Temperature: 36.6 ??C (97.9 ??F) degrees C Pulse: 78 bpm Therapeutic Goal: Ferritin (ng/mL) less than: 100 Frequency of Ferritin Monitoring: Every phlebotomy Ferritin Drawn Today? Yes Reaction: No PHYSICIAN ASSESSMENT AND PLAN: I have reviewed the procedure note and the patient medical record. This patient with hemochromatosis??(compound heterozygous for??C282Y??and??H63D??variants)??requires on-going therapeutic phlebotomy. The patient has reached therapeutic goals and will extend her phlebotomy frequency to every 3 months. Preferably coincide with her other appointments as this patient travels a long distance to [facility]. Recent Labs 01/19/22 1130 12/26/21 1230 10/05/21 1152 07/31/21 0800 07/27/21 1221 FERRITIN 71 129 316* 678* 798* Pj Chung DO 01/19/2022 ATTENDING MD ATTESTATION: I reviewed the clinical note and agree with the assessment and plan presented by Dr. Chung. Edith Villafuerte MD 01/19/2022 documented in this encounter Miscellaneous Notes * Addendum Note - Edith Villafuerte MD - 01/19/2022 4:52 PM EDTEncounter addended by: Edith Villafuerte MD on: 01/19/2022 4:52 PM Actions taken: Clinical Note Signed documented in this encounter Plan of Treatment Upcoming Encounters Date Type Department Care Team (Late st Contact Info) Description 12/03/2024 1:00 PM EDT Appointment Hematology [place] [address] 12/03/2024 2:00 PM EDT Office Visit Hematology [place] [phone] Pelon Wisdom MD [facility] [place] [address] Oksana Payne APRN [facility] [place] [address] documented as of this encounter Procedures Procedure Name Priority Date/Time Associated Diagnosis Comments HC FERRITIN, SERUM Routine 01/19/2022 11 :30 AM EDT documented in this encounter Results * Ferritin (01/19/2022 11:30 AM EDT) Ferritin 71 15 - 150 ng/mL [facility] Comment: Pediatric reference ranges not verified at [facility], interpret with caution. Reference ranges for females greater than 50 years of age approach values for men, i.e., 30-400 ng/mL. Blood 01/19/2022 11:3 0 AM EDT 01/19/2022 11:41 AM EDT Narrative Resulting Agency Comment Spec In Lab Edtih Villafuerte MD CHEMISTRY ORDERABLE S [facility] [place] [address] documented in this encounter Visit Diagnoses Diagnosis Hemochromatosis, unspecified hemochromatosis type documented in this encounter Care Teams Lcac Radar Operator/Navigator Relationship Specialty Start Date End Date Che Sharpe PA [address] [place] [address] [place] [address] PCP - General Internal Medicine 04/20/20 documented as of this encounter
--- OUTSIDE RECORDS SUMMARY | 2024-01-03 01:04 | XMS_ITS | Encounter Summary ---
Author Organization [facility] [place] [address] Care Team Providers Care Sexual Assault Social Worker Name Role Phone Che Sharpe Primary Care Provider + Encounter Details Date Type Department Care Team (Late st Contact Info) Description 08/23/2023 External Results Hematology and Oncology at [facility] [place] [phone] Demetria Alberto, RN Social History Tobacco Use [...] PM EDT Appointment Hematology [place] [phone] 12/03/2024 2:00 PM EDT Office Visit Hematology [place] [address] Pelon Wisdom MD [facility] [address] [place] [address] Oksana Payne APRN [facility] DR HEMATOLOGY [place] [address] documented as of this encounter Procedures Procedure Name Priority Date/Time Associated Diagnosis Comments HEMOGLOBIN Routine 08/20/2023 1:05 PM EDT documented in this encounter Results * Hemoglobin (08/20/2023 1:05 PM EDT) Hemoglobin 13.4 11.2 - 15.7 [facility] Hematocrit 38.4 36.0 - 46.0 [facility] Ferritin 66 8 - 252 [facility] Blood 08/20/2023 1:05 PM EDT Historical Provider HEMATOLOGY [facility] documented in this encounter Visit Diagnoses Not on filedocumented in this encounter Care Teams Sexual Assault Social Worker Relationship Specialty Start Date End Date Che Sharpe PA [address] [place] [address] [place] [address] PCP - General Internal Medicine 04/20/20 documented as of this encounter
--- OUTSIDE RECORDS SUMMARY | 2024-01-03 01:04 | XMS_ITS | Encounter Summary ---
Author Organization [facility] [place] [address] Care Team Providers Care Site Head Name Role Phone Che Sharpe Primary Care Provider + Reason for Referral * Consultation (Routine) - Closed Specialty Diagnoses / Procedures Referred By Contac t Referred To Contact Diagnoses Hemochromatosis associated with compound heterozygous mutation in HFE gene Pelon Wisdom MD [facility] [address] [place] [address] [facility] [place] [address] Referral ID Status Reason Start Date Expiration Date V isits Requested Visits Authorized [id number] Closed Consult, Test & Treat 08/08/2022 08/08/2023 3 3 Encounter Details Date Type Department Care Team ([facility] st Contact Info) Description 08/08/2022 Orders Only Hematology [place] [phone] [facility] [address] [place] [address] Hemochromatosis associated with compound heterozygous mutation in [...] place to sleep or slept in a longterm (including now)? No 07/20/2021 Sex and Gender Information Value Date Recorded Sex Assigned at Not on file Gender Identity Not on file Sexual Orientation Not on file documented as of this encounter Plan of Treatment Upcoming Encounters Date Type Department Care Team (Late st Contact Info) Description 12/03/2024 1:00 PM EDT Appointment Hematology [place] [address] 12/03/2024 2:00 PM EDT Office Visit Hematology [place] [phone] [facility] [place] [address] [facility] [place] [address] Scheduled Referrals Name Type Priority Associated Diagnoses Orde r Schedule Referral to Blood Donor Program/Apheresis Service Outpatient Referral Routine Hemochromatosis associated with compound heterozygous mutation in HFE gene Ordered: 08/08/2022 documented as of this encounter Visit Diagnoses Diagnosis Hemochromatosis associated with compound heterozygous mutation in HFE gene documented in this encounter Care Teams Site Head Relationship Specialty Start Date End Date Che Sharpe PA [address] [place] [address] [place] [address] PCP - General Internal Medicine 04/20/20 documented as of this encounter
--- OUTSIDE RECORDS SUMMARY | 2024-01-03 01:04 | XMS_ITS | Encounter Summary ---
Author Organization [facility] [place] [address] Care Team Providers Care It Web Development Consultant Name Role Phone Che Sharpe Primary Care Provider + Reason for Visit * Reason Comments Procedure * Consultation (Routine) - Closed Specialty Diagnoses / Procedures Referred By Contlaura t Referred To Contact Diagnoses Hemochromatosis associated with compound heterozygous mutation in HFE gene Pelon Wisdom MD [facility] DR [place] [address] [facility] [place] [address] Referral ID Status Reason Start Date Expiration Date V isits Requested Visits Authorized [id number] Closed Consult, Test & Treat 08/08/2022 08/08/2023 3 3 Encounter Details Date Type Department Care Team (Latest Contact Info) Description 02/07/2023 9:24 AM EDT - 02/07/2023 11:59 PM EDT Hospital Encounter [place] [address] Hemochromatosis, unspecified hemochromatosis type Discharge [...] place to sleep or slept in a [facility] (including now)? No 07/20/2021 Sex and Gender Information Value Date Recorded Sex Assigned at Not on file Gender Identity Not on file Sexual Orientation Not on file documented as of this encounter Last Filed Vital Signs Vital Sign Reading Time Taken Comments Blood Pressure 113/64 02/07/2023 10:00 AM EDT Pulse 92 02/07/2023 10:00 AM EDT Temperature 36.8 ??C (98.3 ??F) 02/07/2023 10:00 AM E DT Respiratory Rate - - [...] Blood-Glucose Sensor (Dexcom G6 Sensor) Device by [employer].(Non-Drug; Combo Route) route. omeprazole (PriLOSEC) 40 mg [...] as of this encounter Progress Notes * Kolton Estrella MD - 02/07/2023 1:12 PM EDTSummary: TP Note Transfusion Medicine Service Therapeutic Phlebotomy Procedure Type: Therapeutic Phlebotomy Requesting Physician: Pelon Tomlinson Date of Procedure: 02/07/2023 Treatment Pathway: Hemochromatosis/Iron Overload Program Frequency of Phlebotomy: Every 3 Months Criteria for Performance of Therapeutic Phlebotomy: Hemoglobin greater than 11 g/dL Pre-Collection Hemoglobin value: 13.6 g/dL Criteria for Therapeutic Phlebotomy Met? Yes Volume Drawn (mL): 500 Volume Replaced (mL): 0 mL 0.9% normal saline Vital Signs: Blood Pressure: 113/64 mmHg Temperature: 36.8 ??C (98.3 ??F) degrees C Pulse: 92 bpm Therapeutic Goal: Ferritin (ng/mL) less than: 100 Frequency of Ferritin Monitoring: Every phlebotomy Ferritin Drawn Today? Yes Reaction: No PHYSICIAN ASSESSMENT AND PLAN: I have reviewed the procedure note and the patient medical record. 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 The current treatment regimen remains appropriate. Recent Labs 02/07/23 1051 10/19/22 1600 07/19/22 1240 05/11/22 1450 FERRITIN 51 51 50 63 Laine Jon MD 02/07/2023 ATTENDING REVIEW: I have reviewed the procedure note and the patient medical record. This patient requires on-going therapeutic phlebotomy. I agree with the plan as outlined by . KOLTON ESTRELLA MD 02/07/2023 documented in this encounter Miscellaneous Notes * Addendum Note - Kolton Estrella MD - 02/07/2023 5:35 PM EDT Encounter addended by: Kolton Estrella MD on: 02/07/2023 5:35 PM Actions taken: Clinical Note Signed documented in this encounter Plan of Treatment Upcoming Encounters Date Type Department Care Team (Late st Contact Info) Description 12/03/2024 1:00 PM EDT Appointment Hematology [place] [address] 12/03/2024 2:00 PM EDT Office Visit Hematology and Oncology at [address] Pelon Wisdom MD [facility] DR [place] [address] Oksana Payne APRN [facility] DR [place] [address] Scheduled Orders Name Type Priority Associated Diagnoses Orde r Schedule POCT HGB Point of Care Testing Routine Hemochromatosis, unspecified hemochromatosis type Ordered: 02/07/2023 documented as of this encounter Procedures Procedure Name Priority Date/Time Associated Diagnosis Comments FERRITIN Routine 02/07/2023 10:51 AM EDT Hemochromatosis, unspecified hemochromatosis type documented in this encounter Results * Ferritin (02/07/2023 10:51 AM EDT) Ferritin 51 15 - 150 ng/mL [facility] Comment: Pediatric reference ranges not verified at [facility], interpret with caution. Reference ranges for females greater than 50 years of age approach values for men, i.e., 30-400 ng/mL. Blood 02/07/2023 10:5 1 AM EDT 02/07/2023 11:04 AM EDT Narrative Resulting Agency Comment Spec In Lab Kolton Estrella MD CHEMISTRY ORDERABLES [facility] [place] [address] documented in this encounter Visit Diagnoses Diagnosis Hemochromatosis, unspecified hemochromatosis type documented in this encounter Care Teams It Web Development Consultant Relationship Specialty Start Date End Date Che Sharpe PA [address] [place] [address] [place] [address] PCP - General Internal Medicine 04/20/20 documented as of this encounter
--- OUTSIDE RECORDS SUMMARY | 2024-01-03 01:04 | XMS_ITS | Encounter Summary ---
Author Organization [facility] [place] [address] Care Team Providers Care Magazine Grinder Loader Name Role Phone Che Sharpe Primary Care Provider + Reason for Visit * Reason Comments Procedure * Consultation (Routine) - Closed Specialty Diagnoses / Procedures Referred By Contlaura t Referred To Contact Diagnoses Hemochromatosis associated with compound heterozygous mutation in HFE gene Pelon Wisdom MD [facility] DR HEMATOLOGY [place] [address] [facility] [place] [address] Referral ID Status Reason Start Date Expiration Date V isits Requested Visits Authorized [id number] Closed Consult, Test & Treat 08/15/2021 08/15/2022 18 18 Encounter Details Date Type Department Care Team (Latest Contact Info) Description 05/11/2022 1:41 PM EST - 05/11/2022 11:59 PM [facility] Hospital Encounter [place] [address] Hemochromatosis, unspecified hemochromatosis type Discharge [...] Sign Reading Time Taken Comments Blood Pressure 118/61 05/11/2022 2:01 PM EST Pulse 79 05/11/2022 2:01 PM EST Temperature 36.8 ??C (98.3 ??F) 05/11/2022 2:01 PM ES T Respiratory Rate - - Oxygen Saturation - - Inhaled Oxygen Concentration - - Weight 80.5 kg (177 lb 7.5 oz) 05/11/2022 2:01 P M EST Height - - Body Mass Index 29.5 02/01/2022 4:04 PM EDT documented in this encounter Medications at Time of Discharge Medication Sig Dispensed Refills Start Date End Date insulin lispro (HUMALOG KWIKPEN INSULIN SUBQ) Inject 8 Units subcutaneously 3 times daily (with meals). 10/16/2021 insulin pump cart,auto,BT/cntr (OMNIPOD 5 G6 INTRO KIT, GEN 5, SUBQ) Inject subcutaneously. Blood-Glucose Sensor (Dexcom G6 Sensor) Device by [facility].(Non-Drug; Combo Route) route. omeprazole (PriLOSEC) 40 mg [...] Progress Notes * Kolton Estrella MD - 05/11/2022 2:11 PM ESTSummary: TP Note Transfusion Medicine Service Therapeutic Phlebotomy Procedure Type: Therapeutic Phlebotomy Requesting Physician: Pelon Tomlinson Date of Procedure: 05/11/2022 Treatment Pathway: Hemochromatosis/Iron Overload Program Frequency of Phlebotomy: Every 3 Months Criteria for Performance of Therapeutic Phlebotomy: Hemoglobin greater than 11 g/dL Pre-Collection Hemoglobin value: 13.5 g/dL Criteria for Therapeutic Phlebotomy Met? Yes Volume Drawn (mL): 500 Volume Replaced (mL): 500 mL 0.9% normal saline Vital Signs: Blood Pressure: 118/61 mmHg Temperature: 36.8 ??C (98.3 ??F) degrees C Pulse: 79 bpm Therapeutic Goal: Ferritin (ng/mL) less than: 100 Frequency of Ferritin Monitoring: Every phlebotomy Ferritin Drawn Today? Yes Reaction: No Comments: PHYSICIAN ASSESSMENT AND PLAN: I have reviewed the procedure note and the patient medical record. 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 The current treatment regimen remains appropriate. Recent Labs 05/11/22 1450 02/01/22 1453 01/19/22 1130 12/26/21 1230 10/05/21 1152 07/31/21 0800 07/27/21 1221 FERRITIN 63 41 71 129 316* 678* 798* Mayi Perez DO 05/11/22 ATTENDING REVIEW: I have reviewed the procedure note and the patient medical record. This patient requires on-going therapeutic phlebotomy. I agree with the plan as outlined by . KOLTON ESTRELLA MD 05/11/2022 documented in this encounter Miscellaneous Notes * Addendum Note - Kolton Estrella MD - 05/11/2022 5:49 PM EST Encounter addended by: Kolton Estrella MD on: 05/11/2022 5:49 PM Actions taken: Chief Complaint modified, Clinical Note Signed documented in this encounter Plan of Treatment Upcoming Encounters Date Type Department Care Team (Late st Contact Info) Description 12/03/2024 1:00 PM EDT Appointment Hematology [place] [address] 12/03/2024 2:00 PM EDT Office Visit Hematology [place] [phone] [facility] DR HEMATOLOGY [place] [address] [facility] HEMATOLOGY [place] [address] Scheduled Orders Name Type Priority Associated Diagnoses Orde r Schedule POCT HGB Point of Care Testing Routine Hemochromatosis, unspecified hemochromatosis type Ordered: 05/11/2022 documented as of this encounter Procedures Procedure Name Priority Date/Time Associated Diagnosis Comments HC FERRITIN, SERUM Routine 05/11/2022 2: 50 PM EST Hemochromatosis, unspecified hemochromatosis type documented in this encounter Results * Ferritin (05/11/2022 2:50 PM EST) Ferritin 63 15 - 150 ng/mL [facility] Comment: Pediatric reference ranges not verified at [facility], interpret with caution. Reference ranges for females greater than 50 years of age approach values for men, i.e., 30-400 ng/mL. Blood 05/11/2022 2:50 PM EST 05/11/2022 3:02 PM EST Narrative Resulting Agency Comment Spec In Lab Kolton Estrella MD CHEMISTRY ORDERABLES [facility] [place] [place] [address] documented in this encounter Visit Diagnoses Diagnosis Hemochromatosis, unspecified hemochromatosis type documented in this encounter Care Teams Magazine Grinder Loader Relationship Specialty Start Date End Date Che Sharpe PA [address] [place] [address] [place] [address] PCP - General Internal Medicine 04/20/20 documented as of this encounter
--- OUTSIDE RECORDS SUMMARY | 2024-01-03 01:04 | XMS_ITS | Encounter Summary ---
Author Organization [facility] Address [facility] [place] [address] Care Team Providers Care Case Packer And Sealer Name Role Phone Che Sharpe Primary Care Provider + Encounter Details Date Type Department Care Team (Latest Contact Info) Description 10/18/2022 Travel Social History Tobacco Use Types Packs/Day [...] PM EDT Appointment Hematology [place] [address] 12/03/2024 2:00 PM EDT Office Visit Hematology [place] [address] Pelon Wisdom MD [facility] [address] [place] [address] Oksana Payne APRN [facility] DR [place] [address] documented as of this encounter Visit Diagnoses Not on filedocumented in this encounter Care Teams Case Packer And Sealer Relationship Specialty Start Date End Date Che Sharpe PA [address] [place] [address] [place] [address] PCP - General Internal Medicine 04/20/20 documented as of this encounter
--- OUTSIDE RECORDS SUMMARY | 2024-01-03 01:04 | XMS_ITS | Encounter Summary ---
[place] [address] Care Team Providers Care Fractionation Plant Supervisor Name Role Phone Che Sharpe Primary Care Provider + Reason for Referral * Consultation (Routine) - Canceled Specialty Diagnoses / Procedures Referred By Contac t Referred To Contact [facility] Diagnoses Displacement of lumbar intervertebral disc without myelopathy Carmen Astorga APRN [address] [place] [address] [facility] [place] [address] Referral ID Status Reason Start Date Expiration Date Visits Requested Visits Authorized [id number] Canceled Consult, Test & Treat PCP Updated and/or Approved 10/05/2022 10/05/2023 6 6 Encounter Details Date Type Department Care Team (Latest Contact Info) Description 10/05/2022 Transcribe Orders eDH Incoming Referrals [phone] Carmen Astorga APRN [address] [facility] [place] [address] Displacement of lumbar intervertebral disc without myelopathy [...] place to sleep or slept in a fpc (including now)? No 07/20/2021 Sex and Gender Information Value Date Recorded Sex Assigned at Not on file Gender Identity Not on file Sexual Orientation Not on file documented as of this encounter Plan of Treatment Upcoming Encounters Date Type Department Care Team (Late st Contact Info) Description 12/03/2024 1:00 PM EDT Appointment Hematology [place] [phone] 12/03/2024 2:00 PM EDT Office Visit [place]ematology [place] [address] Pelon Wisdom MD [facility] DR HEMATOLOGY [place] [address] Oksana Payne APRN [facility] HEMATOLOGY [place] [address] Scheduled Referrals Name Type Priority Associated Diagnoses Orde r Schedule Referral to Spine Center Outpatient Referral Routine Displacement of lumbar intervertebral disc without myelopathy Ordered: 10/05/2022 documented as of this encounter Visit Diagnoses Diagnosis Displacement of lumbar intervertebral disc without myelopathy documented in this encounter Care Teams Fractionation Plant Supervisor Relationship Specialty Start Date End Date Che Sharpe PA [address] [place] [address] [place] [address] PCP - General Internal Medicine 04/20/20 documented as of this encounter
--- OUTSIDE RECORDS SUMMARY | 2024-01-03 01:04 | XMS_ITS | Encounter Summary ---
Author Organization [facility] Address [facility] [place] [address] Care Team Providers Care Ground Support Equipment Fitter Name Role Phone Che Sharpe Primary Care Provider + Encounter Details Date Type Department Care Team (Latest Contact Info) Description 05/02/2023 Travel Social History Tobacco Use Types Packs/Day [...] PM EDT Appointment Hematology [place] [address] 12/03/2024 2:00 PM EDT Office Visit Hematology [place] [address] Pelon Wisdom MD [facility] [address] [place] [address] Oksana Payne APRN [facility] [address] [place] [address] documented as of this encounter Visit Diagnoses Not on filedocumented in this encounter Care Teams Ground Support Equipment Fitter Relationship Specialty Start Date End Date Che Sharpe PA [address] [place] [address] [place] [address] PCP - General Internal Medicine 04/20/20 documented as of this encounter
--- OUTSIDE RECORDS SUMMARY | 2024-01-03 01:04 | XMS_ITS | Encounter Summary ---
Author Organization [facility] [place] [address] Care Team Providers Care Property Caretaker Name Role Phone Che Sharpe Primary Care Provider + Encounter Details Date Type Department Care Team (Late st Contact Info) Description 03/20/2022 Telephone [place] [phone] Donald Benavides Social History Tobacco Use Types Packs/Day Years [...] encounter Miscellaneous Notes * Telephone Encounter - Donald Benavides - 03/27/2022 1:43 PM EST Inbound/Outbound: Outbound Spoke to Patient/Left Message: Left message Notes: Outbound call to patient to schedule outstanding colonoscopy ordered by MIGUEL Zelaya. Left message asking for callback to schedule. Return calls can be handled by: Endoscopy installation specialist [phone] * Telephone Encounter - Donald Benavides - 03/20/2022 2:32 PM EST nd/Outbound: Outbound Spoke to Patient/Left Message: Left message Notes: Outbound call to patient to schedule outstanding colonoscopy ordered by MIGUEL Zelaya. Left message asking for callback to schedule. Return calls can be handled by: Endoscopy installation specialist [phone] documented in this encounter Plan of Treatment Upcoming Encounters Date Type Department Care Team (Late st Contact Info) Description 12/03/2024 1:00 PM EDT Appointment Hematology [place] [address] 12/03/2024 2:00 PM EDT Office Visit Hematology [place] [phone] Pelon Wisdom MD [facility] DR HEMATOLOGY [place] [address] Oksana Payne APRN [facility] HEMATOLOGY [place] [address] documented as of this encounter Visit Diagnoses Not on filedocumented in this encounter Care Teams Property Caretaker Relationship Specialty Start Date End Date Che Sharpe PA [address] [place] [address] [place] [address] PCP - General Internal Medicine 04/20/20 documented as of this encounter
--- OUTSIDE RECORDS SUMMARY | 2024-01-03 01:04 | XMS_ITS | Encounter Summary ---
Author Organization [facility] [place] [address] Care Team Providers Care Dynamite Cartridge Crimper Name Role Phone Che Sharpe Primary Care Provider + Encounter Details Date Type Department Care Team (Late st Contact Info) Description 01/24/2022 Orders Only Hematology [place] [phone] Oksana Payne APRN [facility] [address] [place] [address] Hemochromatosis associated with compound heterozygous mutation in [...] place to sleep or slept in a jail (including now)? No 07/20/2021 Sex and Gender Information Value Date Recorded Sex Assigned at Not on file Gender Identity Not on file Sexual Orientation Not on file documented as of this encounter Plan of Treatment Upcoming Encounters Date Type Department Care Team (Late st Contact Info) Description 12/03/2024 1:00 PM EDT Appointment H[place]ology [place] [address] 12/03/2024 2:00 PM EDT Office Visit [place]ology [place] [phone] Pelon Wisdom MD [facility] [place] [address] Oksana Payne APRN [facility] [place] [address] documented as of this encounter Results * (ABNORMAL) Iron and TIBC (02/01/2022 2:53 PM EDT) Iron 44 30 - 150 mcg/dL [facility] TIBC 286 250 - 450 mcg/dL [facility] Iron Saturation 15(L) 20 - 50 % [facility] Blood 02/01/2022 2:53 PM EDT 02/01/2022 3:13 PM EDT Narrative Resulting Agency Comment Spec In Lab Oksana Levi APRN CHEMISTRY RUTH VLILA Performing Organization Address City/[facility]/ZIP Co de Phone Number [facility] [place] [address] * Ferritin (02/01/2022 2:53 PM EDT) Ferritin 41 15 - 150 ng/mL [facility] Comment: Pediatric reference ranges not verified at [facility], interpret with caution. Reference ranges for females greater than 50 years of age approach values for men, i.e., 30-400 ng/mL. Blood 02/01/2022 2:53 PM EDT 02/01/2022 3:13 PM EDT Narrative Resulting Agency Comment Spec In Lab Oksana Levi SUBMARINE WORKER CHEMISTRY ORDKyaw VILLA Performing Organization Address City/[facility]/ZIP Co de Phone Number [facility] [place] [address] documented in this encounter Visit Diagnoses Diagnosis Hemochromatosis associated with compound heterozygous mutation in HFE gene documented in this encounter Care Teams Dynamite Cartridge Crimper Relationship Specialty Start Date End Date Che Sharpe PA [address] [place] [address] [place] [address] PCP - General Internal Medicine 04/20/20 documented as of this encounter
--- OUTSIDE RECORDS SUMMARY | 2024-01-03 01:04 | XMS_ITS | Encounter Summary ---
Author Organization [facility] [place] [address] Care Team Providers Care Capacitor Inspector Name Role Phone Che Sharpe Primary Care Provider + Encounter Details Date Type Department Care Team (Late st Contact Info) Description 09/05/2022 Telephone Blood Donor Program at [facility] [place] [phone] Carmen Reynoso RN Social History Tobacco Use Types Packs/Day [...] encounter Miscellaneous Notes * Telephone Encounter - Carmen Reynoso RN - 09/05/2022 11:42 AM EDT Returned phone called. Left a voice message to update that her next appt is on October 19 at 2:30. Her Frequency is Q3 Months and Ferritin will be drawn each phlebotomy. Left phone number to call backif she needs to reschedule. documented in this encounter Plan of Treatment Upcoming Encounters Date Type Department Care Team (Late st Contact Info) Description 12/03/2024 1:00 PM EDT Appointment Hematology and Oncology at [place] [phone] 12/03/2024 2:00 PM EDT Office Visit Hematology [place] [address] Pelon Wisdom MD [facility] DR HEMATOLOGY [place] [address] Oksana Payne APRN [facility] DR [place] [address] documented as of this encounter Visit Diagnoses Not on filedocumented in this encounter Care Teams Capacitor Inspector Relationship Specialty Start Date End Date Che Sharpe PA [address] [place] [address] [place] [address] PCP - General Internal Medicine 04/20/20 documented as of this encounter
--- OUTSIDE RECORDS SUMMARY | 2024-01-03 01:05 | XMS_ITS | Encounter Summary ---
Author Organization [place] [address] Care Team Providers Care Panama Hat Hydraulic Press Operator Name Role Phone Che Sharpe Primary Care Provider + Reason for Visit * Reason Comments Eye Exam * Consultation (Urgent) - Closed Specialty Diagnoses / Procedures Referred By Contlaura t Referred To Contact Ophthalmology Diagnoses Unspecified visual disturbance Che Sharpe PA [address] [place] [address] Isis Marcelino MD [facility] [place] [address] Referral ID Status Reason Start Date Expiration Date V isits Requested Visits Authorized [id number] Closed Consult, Test & Treat Connection Center PCP Updated and/or Approved 03/26/2020 03/26/2021 6 6 Encounter Details Date Type Department Care Team (Late st Contact Info) Description 05/16/2020 9:00 AM EST Office [place] [address] Isis Marcelino MD [facility] [place] [address] Unspecified visual disturbance; Visual field defects Social History Tobacco Use Types Packs/Day Years Used Date Smoking Tobacco: Former Cigarettes Q uit: 11/27/2016 Smokeless Tobacco: Never Alcohol Use Standard Drinks/Week Comments Yes 0 (1 standard drink = 0.6 oz pur e alcohol) Sex and Gender Information Value Date Recorded Sex Assigned at Not on file Gender Identity Not on file Sexual Orientation Not on file documented as of this encounter Progress Notes * Isis Payton MD - 05/16/2020 9:00 AM EST Emma Min is a 40 y.o. female referred by NARENDRA Betancur, for peripheral fluid around bilateral optic nerves with mild flattening of optic nerve heads, and unspecified visual disturbances. Patient reports intermittent haziness in her vision bilaterally. She also notes that her eyes feel sore and hurt bilaterally for the last 5 weeks. She does endorse constant headaches with intermittent tinnitus over the past 3 months. History of type 2 diabetes (diagnosed 13 years ago). Ocular history of diabetic retinopathy (diagnosed by [facility] in 2018) Currently taking diamox 250 mg and prochlorperazine 5 mg On examination today, Emma Min exhibited 20/30 vision in the right eye and 20/25 vision in the left eye with an updated refraction, good color vision, with no evidence of a relative afferent pupillary defect that would suggest an underlying optic nerve dysfunction. The intraocular pressureswere normal in each eye. Static visual interiano had superior depressed points in the right eye and wer e full in the left eye. Sensorimotor examination revealed full extraocular movements in each eye. Emma Min was orthophoric in all directions of gaze. Dilated eye examination revealed normal anterior segment structures. The optic nerves are healthy and pink with spontaneous venous pulsations noted, which are a good indicator of normal intracranial pressure. The maculae and peripheral retina was normal in each eye. The OCT revealed average RNFL of116 bilaterally. 1) Blepharitis, bilaterally - Patient reports that when she wakes up in the morning, her eyes are very red and puffy. She notessome discharge from her eyes in the morning, and says that they are crusty. She also reports some soreness when looking around with her eyes. - MR head on 04/05/2020 at [facility] were reviewed with normal findings. - Normal neuro-ophthalmic examination today. No evidence of optic nerve edema. Discussed noting spontaneous venous pulsations bilaterally with the patient. Her visual symptoms are likely due to her blepharitis. - Recommend warm compresses and omega 3s for blepharitis. Also advised to use preservative free artificial tears, four to six times a day, as well as lubricating ointment at night. Dry eye information handout provided to patient. RTC PRN I, Rosy Barnes, have performed the documentation for this encounter in the presence of and acting as a scribe for Isis Payton MD. I performed the services which were documented by the scribe, and I agree with the accuracy of the documentation in this encounter. Isis Payton MD documented in this encounter Plan of Treatment Upcoming Encounters Date Type Department Care Team (Late st Contact Info) Description 12/03/2024 1:00 PM EDT Appointment [place] [address] 12/03/2024 2:00 PM EDT Office Visit [place]ematology [place] [address] Pelon Wisdom MD [facility] DR HEMATOLOGY [place] [address] Oksana Payne APRN [facility] DR HEMATOLOGY [place] [address] documented as of this encounter Procedures Procedure Name Priority Date/Time Associated Diagnosis Comments FUNDUS PHOTOS - OU- BOTH EYES Routine 05/16/2020 11:11 AM EST Unspecified visual disturbance SENSORIMOTOR EXAM Routine 05/16/2020 11: 01 AM EST Unspecified visual disturbance OCT OPTIC NERVE - OU - BOTH EYES Routine 05/16/2020 11:00 AM EST Visual field defects AUTOMATED VISUAL FIELD - EXTENDED - OU- BOTH EYES Routine 05/16/2020 10:49 AM EST Unspecified visual disturbance documented in this encounter Results * Fundus Photos - OU - Both Eyes (05/16/2020 11:11 AM EST) Anatomical Region Laterality Modality Other Narrative 05/16/2020 11:11 AM EST Right Eye Disc findings include normal observations. Vessel findings include normal observations. Periphery findings include normal observations. Left Eye Disc findings include normal observations. Vessel findings include normal observations. Periphery findings include normal observations. Notes Normal discs Isis Marcelino MD OPHTHALMOLOGY [facility] ORDERABLES * Sensorimotor Exam [Pr Special Eye Exam] - OU - Both Eyes (05/16/2020 11:01 AM EST) Anatomical Region Laterality Modality Other Narrative 05/16/2020 11:01 AM EST Orthotropic in all directions of gaze at distance. Orthotropic at near. Isis Marcelino MD OPHTHALMOLOGY [facility] ORDERABLES * Oct Optic Nerve - OU - Both Eyes (05/16/2020 11:00 AM EST) Anatomical Region Laterality Modality Other Narrative 05/16/2020 11:00 AM EST Right Eye Quality was good. Left Eye Quality was good. Notes [employer] OCT OD: ??Average RNFL: 116, classification = borderline above OS: ??Average RNFL: 116, classification = borderline above Isis Marcelino MD OPHTHALMOLOGY [facility] ORDERABLES * Automated Visual Field - Extended - OU - Both Eyes (05/16/2020 10:49 AM EST) Anatomical Region Laterality Modality Other Narrative 05/16/2020 10:49 AM EST Right Eye Threshold was 24-2. Strategy was BIBI. Reliability was poor. Findings include non-specific defects. Left Eye Threshold was 24-2. Strategy was BIBI. Reliability was good. Findings include normal observations. Notes OD: Superior depressed points OS: Normal Isis Marcelino MD OPHTHALMOLOGY [facility] ORDERABLES documented in this encounter Visit Diagnoses Diagnosis Unspecified visual disturbance Visual field defects Visual field defect, unspecified documented in this encounter Care Teams Panama Hat Hydraulic Press Operator Relationship Specialty Start Date End Date Che Sharpe PA [address] [place] [address] [place] [address] PCP - General Internal Medicine 04/20/20 documented as of this encounter
--- OUTSIDE RECORDS SUMMARY | 2024-01-03 01:05 | XMS_ITS | Encounter Summary ---
Author Organization [facility] [place] [address] Care Team Providers Care Hall Cleaner Name Role Phone Jovan Esquivel MD Primary Care Provider [phone] Encounter Details Date Type Department Care Team ([facility] Contact Info) Description 03/08/2020 Ancillary [place] [address] Che Shapre PA [address] [place] [address] [place] [address] Social History Tobacco Use Types Packs/Day Years Used Date Smoking Tobacco: Former Cigarettes Q uit: 11/27/2016 Smokeless Tobacco: Never Alcohol Use Standard Drinks/Week Comments No 0 (1 standard drink = 0.6 oz pur e alcohol) Sex and Gender Information Value Date Recorded Sex Assigned at Not on file Gender Identity Not on file Sexual Orientation Not on file documented as of this encounter Plan of Treatment Upcoming Encounters Date Type Department Care Team ([facility] Contact Info) Description 12/03/2024 1:00 PM EDT Appointment Hematology [place] [address] 12/03/2024 2:00 PM EDT Office Visit Hematology [place] [address] Pelon Wisdom MD [facility] [address] [place] [address] Oksana Payne APRN [facility] [place] [address] documented as of this encounter Procedures Procedure Name Priority Date/Time Associated Diagnosis Comments FILM LIBRARY STORAGE ONLY MR HEAD Routine 03/08/2020 12:00 AM EST documented in this encounter Results * Film Library- Storage Only MR Head (03/08/2020 12:00 AM EST) Narrative [facility] - 05/16/2020 9:25 AM EST This exam is auto-finalizing. It's purpose is for storage only. Che MACKEY I[place] FILM LIBRARY ORDERABLES [place], [place] documented in this encounter Visit Diagnoses Not on filedocumented in this encounter Care Teams Hall Cleaner Relationship Specialty Start Date End Date Jovan Esquivel MD PATHOLOGY DEPT [address] [place] [id number] PCP - General Pathology 10/12/19 04/19/20 documented as of this encounter
--- OUTSIDE RECORDS SUMMARY | 2024-01-03 01:05 | XMS_ITS | Encounter Summary ---
Author Organization [facility] [place] [address] Care Team Providers Care Ultrasound Tech Name Role Phone Che Sharpe Primary Care Provider + Encounter Details Date Type Department Care Team (Late st Contact Info) Description 07/31/2021 Telephone [place]ology [place] [phone] Mely Perez RN Social History Tobacco Use Types Packs/Day [...] encounter Miscellaneous Notes * Telephone Encounter - Mely Perez RN - 07/31/2021 1:59 PM EDT Call placed to [facility] [phone] Spoke w/ THREAD PULLING MACHINE ATTENDANT / INFUSION Services to be provided for pt are: H/H q3wks w/phlebotomy; FERRITIN to be drawn EVERY 3RD phlebotomy. To start on 08/08 Orders faxed to [phone] DX: Hemachromatosis PLAN: labs/phlebotomy q3 weeks, check Ferritin every 3rd phlebotomy. Labs/MD f/u on 02/01/22. documented in this encounter Plan of Treatment Upcoming Encounters Date Type Department Care Team (Late st Contact Info) Description 12/03/2024 1:00 PM EDT Appointment [place] [address] 12/03/2024 2:00 PM EDT Office Visit [place] [phone] Pelon Wisdom MD [facility] DR [place] [address] Oksana Payne APRN [facility] [address] [place] [address] documented as of this encounter Visit Diagnoses Not on filedocumented in this encounter Care Teams Ultrasound Tech Relationship Specialty Start Date End Date Che Sharpe PA [address] [place] [address] [place] [address] PCP - General Internal Medicine 04/20/20 documented as of this encounter
--- OUTSIDE RECORDS SUMMARY | 2024-01-03 01:05 | XMS_ITS | Encounter Summary ---
Author Organization [facility] [place] [address] Care Team Providers Care Ruby On Rails Developer Name Role Phone Rosy Tavarez FERMENTER OPERATOR Primary Care Provider [phone] Encounter Details Date Type Department Care Team (Late Contact Info) Description 11/13/2017 Orders Only [place] [phone] Pricila Andrade [facility] [place] [address] Social History Tobacco Use Types Packs/Day Years [...] Encounters Date Type Department Care Team (Late Contact Info) Description 12/03/2024 1:00 PM EDT Appointment Hematology [place] [phone] 12/03/2024 2:00 PM EDT Office Visit Hematology [place] [address] Pelon Wisdom MD [facility] HEMATOLOGY [place] [address] Oksana Payne APRN [facility] HEMATOLOGY [place] [address] documented as of this encounter Procedures Procedure Name Priority Date/Time Associated Diagnosis Comments QUANTIFERON-TB GOLD Routine 11/13/2017 3 :32 PM EDT documented in this encounter Results * QuantiFERON-TB Gold (11/13/2017 3:32 PM EDT) Quantiferon Nil 0.016 IU/mL [facility] QFT TB Ag-Nil 0.002 IU/mL [facility] Quantiferon Mitogen-Nil >10.000 IU/mL [facility] Quantiferon-TB Gold Negative Negative [facility] Quantiferon Tb Interp M. tuberculosis (TB) infection NOT likely ?A negative specimen should have a TB Ag minus Nil value less than 0.35 IU/mL OR a TB Ag minus Nil greater than or equal to 0.35 IU/mL and in addition the TB Ag minus Nil value must be less than 25% of the Nil value. A negative specimen should have a Mitogen minus Nil value greater than or equal to 0.5 IU/mL. ?A negative QuantiFERON-TB Gold IT result does not preclude the possibility of M. tuberculosis infection or tuberculosis disease: false negative results can be due to stage of infection (e.g., specimen obtained prior to the development of cellular immune response), co-morbid conditions which affect immune function, or other individual immunological factors. [facility] Comment: ?The performance of the QuantiFERON-TB Gold IT test has not been extensively evaluated with specimens from the following groups of individuals: ?1. Individuals who have impaired or altered immune function such as those who have HIV infection or AIDS, those who have transplantation managed with immunosuppressive treatment or others who receive immunosuppressive drugs (e.g., corticosteroids, methotrexate, azathioprine, cancer chemotherapy), and those who have other clinical conditions: diabetes, silicosis, chronic renal failure, hematological disorders (e.g., leukemia and lymphomas), and other specific malignancies (e.g., carcinoma of the head or neck and lung). ?2. Individuals younger than age 17 years. ?3. women. Note: Diagnosing or excluding tuberculosis disease, and assessing the probability of LTBI, require a combination of epidemiological, historical, medical, and diagnostic findings that should be taken into account when interpreting QuantiFERON-TB Gold results. Reference (http://www.cdc.gov/nchstp/tb/) Blood specimen (specimen) Venous Draw / Unknown 11/13/2017 3:32 PM EDT 11/14/2017 11:42 AM EDT Narrative Resulting Agency Comment Spec In Lab Pricila Andrade FERMENTER OPERATOR CHEMISTRY ORDERABLES [facility] [place] [place] [address] documented in this encounter Visit Diagnoses Not on filedocumented in this encounter Care Teams Ruby On Rails Developer Relationship Specialty Start Date End Date Rosy Tavarez APRN [facility] GENERAL [place] [address] PCP - General General Internal Medicine 02/14/17 6/05/11 documented as of this encounter
--- OUTSIDE RECORDS SUMMARY | 2024-01-03 01:05 | XMS_ITS | Encounter Summary ---
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 No 07/20/2021 Sex and Gender Information Value Date Recorded Sex Assigned at Not on file Gender Identity Not on file Sexual Orientation Not on file documented as of this encounter Miscellaneous Notes * Telephone Encounter - Mely Perez RN - 12/22/2021 3:06 PM EDT ----- Message from Pelon Tomlinson MD sent at 12/22/2021 3:01 PM EDT ----- Regarding: RE: DUONG Esteban, Thanks for letting me know. We will hold off phlebotomies, recheck the ferritin when she is here tosee me in Jan and based on the level at that time,,we will discuss about starting oral iron chelator IF her insurance approves. If her insurance does not approve (which I am suspecting), then, we will have to find a solution for her venous access. Please let us know if your team has an ideas. Thanks Pelon ----- Message ----- From: Carmen Reynoso RN Sent: 12/22/2021 2:16 PM EDT To: Pelon Tomlinson MD Subject: DUONG Good Afternoon Dr. Tomlinson I hope you have a good 3 day weekend. Just wanted to make you aware that patient, Lawanda, was heretoday. Arrived at 11 am, she did her super hydration, warm packs and warm blankets. 2 different nurses ( the only 2 on today) came down from IV team, did ultra sounds of her arms for quiet a while, as well as attempted a stick, however was unsuccessful again. She ended up being here til 2 pm, she is going to try again on Saturday, but I wanted to keep you in the loop. Thank you, Carlos Reynoso Blood Donor Program documented in this encounter Plan of Treatment Upcoming Encounters Date Type Department Care Team (Late st Contact Info) Description 12/03/2024 1:00 PM EDT Appointment Hematology [place] [address] 12/03/2024 2:00 PM EDT Office Visit Hematology [place] [phone] Pelon Wisdom MD [facility] DR [place] [address] Oksana Payne APRN [facility] [place] [address] documented as of this encounter Visit Diagnoses Not on filedocumented in this encounter Care Teams Rail Maintenance Worker Relationship Specialty Start Date End Date Che Sharpe PA [address] [place] [address] [place] [address] PCP - General Internal Medicine 04/20/20 documented as of this encounter
--- OUTSIDE RECORDS SUMMARY | 2024-01-03 01:05 | XMS_ITS | Encounter Summary ---
[place] [address] Care Team Providers Care Healthcare Interpreter Name Role Phone Che Sharpe Primary Care Provider + Reason for Referral * Consultation (Routine) - Closed Specialty Diagnoses / Procedures Referred By Luana landon Referred To Contact Gastroenterology Diagnoses Gastroesophageal reflux disease without esophagitis Type 2 diabetes mellitus with hyperglycemia, with long-term current use of insulin Anxiety Depression, unspecified depression type Irritable bowel syndrome with diarrhea Bloating Borborygmi Nausea without vomiting Incontinence of feces with fecal urgency Diarrhea, unspecified type HBT - glucose - bloating see also EGD/[place]/Umanzor Procedures HYDROGEN BREATH TEST HBT - glucose - bloating Jessica Zelaya APRN [facility] [place] [address] [place] [address] Referral ID Status Reason Start Date Expiration Date V isits Requested Visits Authorized [id number] Closed Consult, Test & Treat 02/09/2021 02/09/2022 1 1 Reason for Visit * Consultation (Routine) - Closed Specialty Diagnoses / Procedures Referred By Contlaura landon Referred To Contact Gastroenterology Diagnoses Diarrhea, unspecified diarrhea Procedures Consult Che Sharpe PA [address] [place] [address] [place] [address] [facility] [address] [place] [address] Referral ID Status Reason Start Date Expiration Date Visits Re quested Visits Authorized [id number] Closed 01/13/2021 01/13/2022 1 1 Encounter Details Date Type Department Care Team (Latest Contact Info) Description 02/09/2021 7:30 AM EDT TH Visit (TeleHealth) [place] [address] Jessica Zelaya APRN [facility] [place] [address] Irritable bowel syndrome with diarrhea (Primary Dx); Gastroesophageal reflux disease without esophagitis; Type 2 diabetes mellitus with hyperglycemia, with long-term current use of insulin; Anxiety; Depression, unspecified depression type; Bloating; Borborygmi; Nausea without vomiting; Incontinence of feces with fecal urgency; Diarrhea, unspecified type; Heartburn Social History Tobacco Use Types Packs/Day Years Used Date Smoking Tobacco: Former Cigarettes Q uit: 11/27/2016 Smokeless Tobacco: Never Alcohol Use Standard Drinks/Week Comments Yes 0 (1 standard drink = 0.6 oz pur e alcohol) Sex and Gender Information Value Date Recorded Sex Assigned at Not on file Gender Identity Not on file Sexual Orientation Not on file documented as of this encounter Patient Instructions * Patient Instructions* Jessica Zelaya APRN - 02/09/2021 7:30 AM EDT It was nice to meet you today. The following orders were placed during our visit today: Orders Placed This Encounter Procedures ??? ENDOSCOPY CASE REQUEST: COLONOSCOPY, DIAGNOSTIC ??? NM Gastric Emptying Scan ??? Calprotectin, Stool ??? Elastase, Stool ??? Referral to Gastroenterology ??? Umanzor Capsule pH Test Please call the GI department to schedule the investigations if you do not hear from us within 1-2 weeks: [phone]. Please call radiology to schedule your imaging studies at the [facility]. Main radiology scheduling line Direct phone numbers: If you are scheduling an MRI, you can directly call: If you are scheduling a CT, you can directly call: If you are scheduling an ultrasound, you can directly call: Please go to or any [facility] affiliated lab to get any blood work/stool studies completed at your earliest convenience. Please note: given the ongoing COVID-19 pandemic, there has been delays in the scheduling and completion of various investigative studies. We are working to improve this, and in the meantime, we appreciate your patience and cooperation. As the results come back from your various tests, I will only call you if they are abnormal (no news is good news!). Below I have included some basic information functional bowel disorders and ways you can address various GI symptoms from home. I look forward to seeing you at your next visit, Jessica Zelaya APRN Department of Gastroenterology and Hepatology [facility] Here is some information on the different procedures that may be ordered for you in GI: Endoscopy: this procedure is when we look at your Esophagus, stomach and beginning of small intestine called the duodenum. You will be sleepy/comfortable during this test, so you will require a ride home. We will take samples called biopsies to look for microscopic inflammation, diseases such as celiac disease/Eosinophilic esophagitis/Piedra's esophagus/etc, and you will get a letter approximately 2 weeks after your procedure letting you know the results and next steps. If we are testing for celiac disease, you will need to eat gluten foods for 6-8 weeks prior to your endoscopy. This means 3-10 grams of gluten (1 slice of bread is 2g) per day. If you do not, there can be false negative results. Colonoscopy: this procedure looks at the large intestine and the exit of your small intestine (called the ileocecal valve). Commonly, biopsies can be taken for patients having symptoms to look for inflammatory conditions such as microscopic colitis, Crohn's disease, or Ulcerative colitis. Also if the bench tool maker sees any polyps, they will be removed to see what kind of polyps they are. If biopsies or polyps are taken, you will get a letter approximately 2 weeks after your procedure letting you know the results and next steps.You will be sleepy/comfortable during this test, so you will require a ride home. This procedure also involves a prep the day before so that all of the stool is removed from your colon. This is important to avoid missing small polyps. UMANZOR: this test is usually added onto an endoscopy. This does not impact your breathing or abilityto swallow. During the endoscopy, the UMANZOR sensor will be placed into the esophagus. While this isin place, it will measure whenever acid enters the esophagus. It will eventually release from the esophagus and exit your body normally. After it is in place and you go home, you will hit a sensor whenever you are having symptoms such as heartburn, and we will compare the two to see if your symptoms match acid entering the esophagus. The next day, you will need to return the equipment to the hospital after the test is complete. Here are some of the imaging studies that can be ordered in GI: Gastric Emptying Scan: this is done in radiology and involves eating foods that have markers in them that can be seen on the screen. It helps measure how long it takes food to leave the stomach. Hydrogen breath test: this is done in the office to see if you have small intestine bacterial overgrowth (SIBO). SIBO can contribute to some GI symptoms. *You will be given more instruction as needed by the scheduling team or nurses prior to your tests *All results will be discussed at your follow up appointment unless I am placing an order and/or itneeds to be addressed sooner. -continue imodium as needed -continue famotidine as needed -continue Bentyl up to 4x/day as needed to help with abdominal tenderness -limit use of ibuprofen/NSAIDS, this can worsen GI symptoms -Begin Metamucil (make sure it is free of sugar and artificial sweetener): 1tsp daily for one week,then 2tsp daily for one week, then 3tsp (1TBSP) daily. May increase slowly up to 2 TBSP daily. Titrate according to what works best for you.This may cause bloating initially but this will improve with continued use. If this supplement causes too much bloating you may try Citrucel. Functional Bowel Disorders: Information Handout for Patients and Primary Care Providers Louie Rankin MD, [facility] + Philip Huynh MD, [facility] Chad Foreman APRN + Moriah Tobar APRN + Jessica Zelaya APRN [facility] What are functional bowel disorders? These are the most common type of gastrointestinal disorders in the [facility] ??? The most common functional bowel disorder in the [facility] is irritable bowel syndrome (IBS) ??? Irritable bowel syndrome affects the lower GI tract and can cause bloating, abdominal pain, diarrhea, and constipation ??? Functional dyspepsia (FD) affects the upper GI tract and can cause bloating, burping, heartburn, nausea, fullness and stomach discomfort ??? In functional disorders the gut is structurally/anatomically normal but is not functioning properly due to abnormalities in the enteric (gut) nervous system ??? Two mechanisms - heightened sensitivity of the gut to normal sensations (sensory nerves) and abnormal gut motility (motor nerves) ??? These disorders are caused by a combination of a genetic factors, changes to the gut microbiota(intestinal bacteria) and environmental triggers How common are these disorders and what is the impact? 15-20% of general [place] population has IBS or FD or both ??? 2nd most common cause for lost work days (after common cold) in [place] ??? Estimated $30 billion dollar cost to [place] economy per year ??? These disorders can have a significant impact on quality of life How is the diagnosis made? The diagnosis of a functional disorder is NOT a ???diagnosis of exclusion?? (common misconception) ??? Investigations may be necessary to look for other disorders (such as celiac disease) if the diagnosis is unclear ??? Work-up may include history (description of symptoms), physical exam, bloodwork, stool studies,diagnostic imaging and endoscopy What is the prognosis? Functional bowel disorders are unfortunately chronic disorders and often have a major impact onpatient quality of life, function, and relationships ??? Symptoms may gradually resolve is a small proportion of patients (highest rate in patients withimmediate onset of symptoms after infection); prison symptoms are expected in most patients however ??? Intermittent exacerbations (i.e. ???flares?? ) are common and may be caused by stress, infections, antibiotic exposure, and lack of adherence to treatment plans When should a patient be re-evaluated? Patients with stable symptoms do NOT need episodic re-evaluation ??? Subtle changes in symptoms and symptom flares are common ??? Patients should be re-evaluated if they have progression or dramatic changes in symptoms, severe abdominal pain, swallowing difficulties, unexplained weight loss, anemia (low blood counts), or bleeding ??? If you have concerns be sure to talk to your doctor What are the goals of therapy? Ultimately we hope that you to able to achieve prolonged periods of stability with minimal daily symptoms and have a decrease in the frequency/severity of ???flares? However, we believe the most important goal is to help you improve your overall quality of life. ??? For most patients this means doing the things that are important in your life despite having symptoms. ??? This is generally achieved by helping you develop coping skills and helping you achieve a greater understanding of your disorder. ??? Remember, generally complete resolution of symptoms is NOT a realistic goal. How do I use this information? Talk to you primary care provider and/or local bench tool maker and share this document. Treatment of functional disorders is a team effort! ??? Set realistic goals! Remember it is unlikely that any one measure will completely eliminate allsymptoms ?Start low and go slow?? with all measures to avoid potential side effects ??? Do ONE measure at a time - add measures as needed in a ???step-nichole fashion?? - this will helpdetermine if a particular measure is helpful or not ??? Stay on any measure continuously for at least 4-6 weeks prior to assessing whether or not it ishelping (improvements are often slow to occur) ??? After an adequate trial ask yourself if the benefit is worth continuing the treatment ??? Remember there are a limited number of treatment options available. We want to be absolutely sure that a measure is not effective or intolerable before stopping it and considering other options ??? Often patients will need several ???layers?? or ???steps?? of therapy - finding the right combination for you takes time and patience ??? We specifically recommend all patients to do ALL lifestyle and dietary measures AND try using Metamucil (or other psyllium fiber supplement) and probiotics together - this approach benefits most patients ??? OTC (ypsb-vtk-wsqhwqq) medications can be used for ongoing bothersome symptoms as listed below ??? Your provider (PCP or local Gastroenterology provider or [facility] provider) may decide to use prescription medications if you have ongoing symptoms despite strict adherence to lifestyle and dietary measures and OTC medications ??? Your provider will give you advice on treatments but it is your responsibility to work on thesemeasures to improve your symptoms. Lack of adherence to recommendations is one of the most common cause for ongoing symptoms. ??? If symptoms are controlled try easing back or stepping down on measures - remember the main goal is to improve quality of life (not necessarily eliminate symptoms). Non-Pharmacologic General Treatments Lifestyle measures ??? Many lifestyle factors can worsen IBS symptoms ??? However, IBS is not caused by these factors (common misconception) ??? These lifestyle factors include the following: o Inadequate sleep o Weight gain o Inadequate exercise o Stress o Depression/anxiety - this should be brought up to your Primary Care Provider (if left untreated it is unlikely the functional bowel disorder will improve) Dietary measures ??? Trigger food avoidance - you should re-introduce foods once symptoms settle as overly restrictive diet can be unhealthy and even harmful ??? Fatty foods, spicy foods, alcohol, and caffeine can worsen symptoms ??? Consider a 2 week dairy-free trial for possible lactose-intolerance ??? Your PCP or GI provider can refer you to a dietitian to discuss specialized diets. ??? The overall dietary goal is to allow you to have a well-balanced and nutritious diet Fiber and Fluid ??? Adequate fiber and fluid intake is essential for optimal functioning of the human digestive tract ??? Aim for a fluid intake goal of 8-10 glasses of water a day (caffeine and alcohol count as minusone in calculation) ??? Aim for a fiber intake goal of 30 grams per day - some patients may require more or less ??? Increase fiber by 5 grams per week (remember ???start low and go slow?? ) ??? Fiber can be from multiple dietary sources but supplemental is often helpful ??? Fiber intake should include psyllium fiber; this is the type of fiber used in research studies for treatment of functional disorders ??? Sources of psyllium include All-Bran psyllium buds, Metamucil, Konsyl, bulk psyllium (health food stores and bulk stores) ??? Specifically we recommend starting Metamucil or Konsyl at a low dosage - start at one teaspoon a day for one week then gradually increase by one teaspoon per week until no further benefit is achieved. ??? Some patients may get bloating when they start a fiber supplement. This generally goes away after 1-2 weeks of daily therapy. Try backing off to a lower dose or trying an alternate version (such as sweetener-free Metamucil) ??? If persistent issues try Citrucel (methylcellulose) as an alternate fiber supplement Probiotics ??? Measures aimed at improving the microbiome such as probiotics are a promising area but convincing medical evidence is still lacking ??? Dazv-oif-gpypfpa supplements including probiotics are not typically evaluated by FDA. The quality and even safety is often unclear and many products (despite being very expensive) actually do notcontain any active ingredients at all! ??? Live-culture yogurts, kombucha, sauerkraut and other dietary sources may help improve your microbiome ??? Align, TuZen, and Visbiome are the three probiotics that are supported by medical research to have benefit for IBS ??? Florastor has been shown to decrease antibiotic-associated diarrhea and post-infectious diarrhea ??? BioK Plus has been shown to decrease antibiotic-associated diarrhea and antibiotic-related infections Jumh-vsc-Acwtlwo Medications for Functional Gut Disorders Based on Symptoms Diarrhea ??? Loperamide (Imodium) should be considered first for mild and intermittent symptoms - start withsmall doses and take several hours before needed (or even before bed) (it is generally considered safe for long-term use) Constipation ??? Patients with mild constipation can use laxatives ???as needed?? (in other words, if you feel constipated or haven't had a regular bowel movement). However, patients with more severe constipation generally need laxatives on a regular schedule (every day or every second day for example). This is called ???maintenance therapy?? . ??? PEG 3350 (Miralax) is a stool softener that is safe for prison usage (no risk of dependency)and the dosage can be adjusted to achieve 1-2 soft bowel movements per day; you can take a capful (17g) twice daily if needed ??? Milk of magnesia and lactulose are alternate stool softeners that are generally safe for regular use in most patients (you should ask your provider first). ??? Bisacodyl (Dulcolax) and senna (Senokot) are stimulant laxatives for occasional use only as they may lead to dependency with regular long-term use. ??? Enemas and bowel preparations (e.g. Colyte or Golytely) can be used to treat severe stool impaction ---- this is called ???rescue therapy?? . Drink 2 litres in 4 hours in the evening then take another 2 litres over 4 hours the next morning. Another option is to mix up 14 capfuls of Miralax with64 oz of Gatorade. ??? After rescue therapy immediately begin aggressive ???maintenance therapy?? with the therapies above. Bloating/Pain ??? Ensure constipation adequately treated - impacted stool can create a partial obstruction and contribute to pain ??? Peppermint oil may also be useful; a capsule form exists as well (IBgard) ??? Simethicone (Gas-X) can be helpful for occasional usage for ???gas spasms? Acetominophen (Tylenol) is safest analgesic (pain killer) on the gut ??? NSAIDs (e.g. ibuprofen) can cause gut irritation/inflammation - it's best to avoid or use in low doses only ??? Medical cannabis has been used to treat various chronic pain disorders; it has been reported tobenefit some patients with pain but has not be rigorously studied and may actually worsen symptoms in some patients with functional disorders. At this point we generally do NOT recommend using medical cannabis to treat functional disorders ??? AVOID narcotics/opioids as they typically make symptoms much worse and there is a risk of addiction and/or dependence ??? Exercise, hot-water bottle/heating pad, warm bath/shower, and warm beverages are also good treatments for painful bloating episodes Heartburn/Nausea/Vomiting/Dyspepsia ??? Acid reducing medications such as proton-pump inhibitors (PPIs) and H2 blockers may be helpful especially if you have gastroesophageal reflux disease (GERD) ??? Often a combination of anti-nausea medications (fidh-ska-rtjmafm or prescription) works better than high doses of only one medication ??? A herbal product called STW5 (Iberogast) is supported by some studies to help dyspepsia but data on long-term effectiveness and safety is limited ??? L-carnitine and coenzyme Q10 supplements have been reported to be beneficial to some patients with chronic nausea and vomiting ??? If using cannabis (recreational or medical) consider stopping for at least two weeks (ideally afull month). While cannabis has been reported to help some patients with nausea it may actually be contributing to symptoms. Disclaimer ??? This information is intended for education purposes only ??? It is not meant to replace direct patient-provider care ??? All medications should be used under the supervision of a Gastroenterology provider or Primary Care Provider ??? Authors are not liable for misuse/misinterpretation of this information Patient Resources [place] [facility] https://www.gastro.org/practice-guidance/xx-lzoxkks-fldzro/ topic/twdntumfa-pmoyu-dddoymcb-ibs Badgut.org https://badgut.org/information-centre/z-l-llxftpaej-topics/ibs/ AboutIBS.org https://www.aboutibs.org/ DBVutodate.MasCupon https://www.SYSTRAN.MasCupon/contents/uutctlszp-xznpw-wolqukrb-xwmuog-bbu-tujqaj documented in this encounter Progress Notes * Jessica Zelaya APRN - 02/09/2021 7:30 AM EDT [facility] TELEMEDICINE PROGRAM Chief Complaint: Emma Min is a 40 y.o. patient referred for consultation by Dr. Sharpe for diarrhea History of Present Illness: 40 y.o. female with IBS-D/worsening diarrhea per referring note: -history of IBS-D -normal colonoscopy in 2014 -worsening recently with >5 watery BM per day, cramping, mucus, foul smelling -multiple ER visits related to this -some nausea -ER RX Bentyl and Zofran -associated with meals -recommended to hold Ozempic per patient -longstanding stomach issues -don't improve -goes through cycles: intense bloating, feels 'physically ill, intense diarrhea with urgency and fecal incontinence, increased gassiness during these cycles -previous IBS-D diagnosis -frequent peptobismol use -mentions colonoscopy done at [facility] BM: 8-9BM/day, rectal tenesmus, denies BRBpr/melena, denies steatorrhea, endorses mucus Trying dietary changes, increased fluid intake Doctor recently tested for celiac disease trialed holding ozempic for 2 weeks: didn't find difference in bowel habits Acid reflux daily: had improved for a couple years Current Regimen: Bentyl: helped with pain Zofran: prior to meals Famotidine: for acid reflux, helpful Imodium: partial effectiveness Simethicone Past Therapies: Fiber: not effective Dairy Lifestyle NSAID use: 2-3x/week Caffeine/Soda/Artificial Sugar: 2 cups coffee/day, denies soda Diet: avoiding processed foods, started cutting back on flour/bread/pasta (effective) Child Births: 2 vaginal deliveries Depression/Anxiety/Stress: anxiety and depression, not currently managed, talk therapy has helped in the past, has improved overall Previously tried medications: worked, anxiety tends to hit when she's out in public, previously PRNmedications Work: works in [employer] Laboratory studies, imaging, and procedures (in summary of my review of prior records): 01/11/21 CTA OSH: no acute finding Lipase: normal CRP: normal CMP normal except albumin (3.2) CBC: low RBC and high MCV/MCH/MCHC Stool culture: normal, no bacteria or parasites, no WBC on smear Review of systems: 14-point review of systems reviewed and negative except as above. Medications: Outpatient Medications Prior to Visit Medication Sig Dispense Refill ??? semaglutide (Ozempic) 0.25 mg or 0.5 mg(2 mg/1.5 mL) Pen Injector Inject 1 mg subcutaneously once a week. ??? acetaZOLAMIDE (Diamox) 250 mg Tablet Take 250 mg by mouth 3 times daily. ??? prochlorperazine (Compazine) 5 mg Tablet Take 5 mg by mouth every 6 hours as needed for Nausea. ??? fluticasone propionate (FLONASE) 50 mcg/actuation [place], Suspension 1 spray daily. ??? riboflavin, Vitamin B2, (Vitamin B2) 100 mg Tablet Take by mouth. ??? magnesium 250 mg Tablet Take by mouth. ??? ibuprofen (Advil;Motrin) 800 mg Tablet Take 800 mg by mouth every 6 hours as needed for Pain. ??? amitriptyline (Elavil) 100 mg Tablet Take 100 mg by mouth nightly. ??? fludrocortisone (FLORINEF) 0.1 mg Tablet Take 1 tablet by mouth daily. (Patient not taking: Reported on 05/16/2020) 30 tablet 3 ??? ospemifene (OSPHENA) 60 mg Tablet Take 60 mg by mouth daily. (Patient not taking: Reported on 05/16/2020) 30 tablet 3 ??? acyclovir (ZOVIRAX) 200 mg Capsule Take 1 capsule by mouth 5 times daily. 35 capsule 0 ??? nortriptyline (PAMELOR) 10 mg Capsule Take 1 capsule by mouth nightly. Start at 10 mg nightly; if tolerating well then can increase to 20 mg; (Patient not taking: Reported on 05/16/2020) 90 capsule 1 ??? VICTOZA 2-SHANA 0.6 mg/0.1 mL (18 mg/3 mL) Pen Injector Inject 1.8 mg subcutaneously every morning. ??? eletriptan (RELPAX) 20 mg Tablet Take 1 tablet by mouth once as needed. may repeat in 2 hours if necessary (Patient not taking: Reported on 05/16/2020) 10 tablet 3 ??? hydrOXYzine (VISTARIL) 25 mg Capsule Take 1 capsule by mouth 2 times daily. Take as needed for migraine (Patient not taking: Reported on 05/16/2020) 30 capsule 12 ??? naproxen sodium (ANAPROX) 550 mg Tablet Take 1 tablet by mouth 2 times daily as needed (migraine). (Patient not taking: Reported on 05/16/2020) 60 tablet 12 ??? gabapentin (NEURONTIN) 100 mg Capsule Take 1 capsule by mouth 3 times daily. 90 capsule 3 ??? blood sugar diagnostic strips Strip Test blood glucose 4 times daily. Salas Metrix self monitoring Blood Glucose strips E11.9 400 each 3 ??? lancets (MICROLET LANCET) Misc 1 each by Mis.(Non-Drug; Combo Route) route 4 times daily. 100 each 12 ??? acetaminophen (TYLENOL) 500 mg Tablet Take 2 tablets by mouth every 6 hours as needed for Pain.30 tablet 1 ??? Blood-Glucose Meter [facility] Please dispense Salas Metrix meter. E11.9 1 each 0 ??? fexofenadine (SHELBI) 180 mg Tablet Take 1 tablet by mouth daily as needed. (Patient not taking: Reported on 05/16/2020) 90 tablet 3 ??? meclizine (ANTIVERT) 25 mg Tablet Take 1 tablet by mouth 3 times daily as needed. (Patient not taking: Reported on 05/16/2020) 90 tablet 0 ??? glucose (DEX4 GLUCOSE) 4 gram Tablet, Chewable Take 4 tablets by mouth as needed for Low blood sugar. 90 tablet 11 No facility-administered medications prior to visit. Allergies: is allergic to latex, other [unclassified drug], quetiapine, paroxetine hcl, lactose, and metformin. Past Medical History: has a past medical history of Allergic state, Anxiety, Depression, Diabetes mellitus (13yrs), Diabetic oculopathy (2018), Fatigue, and Hyperlipidemia (Dx. 2020). Past Surgical History: has no past surgical history on file. Family History: family history includes Bipolar Disorder in her sister; Depression in her father; Diabetes in her maternal aunt and maternal grandfather; Hyperlipidemia in her father and mother. Maternal uncle: esophageal cancer Limited knowledge of family history Sister: history of tumors in throat, needed surgery to remove because invading spine Social History: reports that she quit smoking about 4 years ago. Her smoking use included cigarettes. She smoked 2.00 packs per day. She has never used smokeless tobacco. She reports current alcohol use. She reports that she does not use drugs. ETOH: rare alcohol use, 1-2/month Denies marijuana, tobacco Physical exam: Constitutional: well appearing, no apparent distress Eyes: conjunctiva clear without icterus, pallor, or injection ENT: Nose without external redness or drainage. Mouth with normal dentition; moist mucous membranes CV: No lower extremity peripheral edema or signs of cyanosis Respiratory: Breathing comfortably and speaking in full sentences without evident tachypnea or signs of respiratory distress GI: Abdomen non-distended and non-tender to self-palpation Skin: No visible rashes Psych: Appropriate affect. Intact thought and speech Neuro: Alert and oriented. Moving upper extremities appropriately Generalized abdominal pain/tenderness to palpation across upper abdomen Questionnaire: GI New Clinic Responses 11/11/2017 PHQ-9 Total Score 8 (Mild Depression) Assessment/Plan: Ms. Min is a 40 y.o. patient with longstanding diarrhea that has worsened over time. She endorses cycles of worsening diarrhea without known cause. During cycles, she endorses worsening bloating, borborygmi, severe abdominal pain (presents to ER for management), and watery diarrhea, 8-10+ bm/day. Denies steatorrhea, melena, BRBPR. Endorses increased mucus. Has stopped diabetic medications in the past to see if side effect, no difference. Imodium effective for management but afraid of chronicuse. Previously diagnosed as IBS-D at OSH. Records from 2015 colonoscopy normal; however, patient mentioned that they saw inflammation. Repeat colonoscopy with biopsies ordered to rule out IBD/micro scopic colitis. EGD with biopsies to rule out celiac disease, OSH ttg unavailable. HBT to rule out SIBO. OSH labs rule out infectious source, which is unlikely given duration of symptoms. In addition to the patient's primary concern outlined above, patient also has daily heartburn symptoms that she has been using famotidine PRN. No previous EGD noted; EGD/Umanzor off PPI ordered to evaluate for GERD vs functional dyspepsia. Off note, patient does have history of depression and situational anxiety that she is not currently being treated for. Discussed etiology of functional bowel disorders and will discuss neuromodulator therapy in future visits. Patient may continue to use famotidine, bentyl, and imodium as needed for symptom management. Diagnostics: -EGD/UMANZOR off PPI, colonoscopy -GES -Labs: calprotectin, elastase Therapeutics: -continue imodium as needed -continue famotidine as needed -continue Bentyl up to 4x/day as needed to help with abdominal tenderness -limit use of ibuprofen/NSAIDS, this can worsen GI symptoms -Begin Metamucil (make sure it is free of sugar and artificial sweetener): 1tsp daily for one week,then 2tsp daily for one week, then 3tsp (1TBSP) daily. May increase slowly up to 2 TBSP daily. Titrate according to what works best for you.This may cause bloating initially but this will improve with continued use. If this supplement causes too much bloating you may try Citrucel. -Review AVS for recommendations on functional bowel disorders and techniques to address common GI symptoms. Trial each for at least 30 days. At the end of 30 days, if it is partially/totally effective for symptoms, keep using and try next agent. If not effective at all, stop using and try next recommendation. -continue to follow up with PCP and other healthcare providers regarding comorbid concerns -all medication refill requests should be through PCP -When to go to ER for urgent evaluation: new/severe abdominal/chest pain, fevers, inability to maintain PO hydration or manage secretions, feeling like food is stuck in chest >1-2 hours, large amounts of blood/black tarry stools, loss of consciousness, etc We discussed that complete symptom relief may not be a fully achievable goal for this chronic condition, but that improvement in quality of life, healthy days at work and family functions, and also general symptom improvement may be more reasonable goals. We discussed that treatments should be tried individually and for periods of at least 4-8 weeks to truly assess symptom response. I did my bestto answer questions to the fullest ability. We discussed that recommended treatments should be tried individually for at least three months at a time to truly assess for a meaningful response, or as long as tolerated, before changing therapy. RTC with me in 6 months, or at least 2-3 weeks after all tests have been completed The patient was located in [place] at the time of their visit. TIME SPENT WITH PATIENT Time spent reviewing records prior to this encounter on day of appointment: 5 minutes Time spent during encounter with patient including counselin minutes Time spent documenting encounter after office visit: 10 minutes Jessica Zelaya APRN [facility] [place] [phone] documented in this encounter Plan of Treatment Upcoming Encounters Date Type Department Care Team (Late st Contact Info) Description 12/03/2024 1:00 PM EDT Appointment H[place] [address] 12/03/2024 2:00 PM EDT Office Visit Hematology [place] [address] Pelon Wisdom MD [facility] [place] [address] Oksana Payne APRN [facility] [address] HEMAT[place] [address] Scheduled Referrals Name Type Priority Associated Diagnoses Order Schedule Referral to Gastroenterology Outpatient Referral Routine Gastroesophageal reflux disease without esophagitis Type 2 diabetes mellitus with hyperglycemia, with long-term current use of insulin Anxiety Depression, unspecified depression type Irritable bowel syndrome with diarrhea Bloating Borborygmi Nausea without vomiting Incontinence of feces with fecal urgency Diarrhea, unspecified type Ordered: 02/09/2021 documented as of this encounter Visit Diagnoses Diagnosis Irritable bowel syndrome with diarrhea- Primary Irritable bowel syndrome Gastroesophageal reflux disease without esophagitis Esophageal reflux Type 2 diabetes mellitus with hyperglycemia, with long-term current use of insulin Anxiety Anxiety state, unspecified Depression, unspecified depression type Bloating Flatulence, eructation, and gas pain Borborygmi Abnormal bowel sounds Nausea without vomiting Incontinence of feces with fecal urgency Diarrhea, unspecified type Heartburn documented in this encounter Care Teams Healthcare Interpreter Relationship Specialty Start Date End Date Che Sharpe PA [address] [place] [address] [place] [address] PCP - General Internal Medicine 04/20/20 documented as of this encounter
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
--- OUTSIDE RECORDS SUMMARY | 2024-01-03 01:05 | XMS_ITS | Encounter Summary ---
[place] [address] Care Team Providers Care Pizza Driver Name Role Phone Rosy Tavarez GO Primary Care Provider Reason for Visit * Reason Onset Date Comments Prior Authorization 11/18/2017 Osphena 60 m g tablets Encounter Details Date Type Department Care Team (Late st Contact Info) Description 11/18/2017 Telephone [place] [phone] Stephanie Brewer CCMA Prior Authorization (Osphena 60 mg tablets) Social History Tobacco Use Types Packs/Day Years [...] encounter Miscellaneous Notes * Telephone Encounter - Stephanie Brewer CCMA - 11/19/2017 11:39 AM EDT Medication Prior Authorization for Primary [place] [address] Denied: X Case/Reference #: [id number] Additional Information from Insurance carrier: * Telephone Encounter - Stephanie Brewer CCMA - 11/18/2017 7:33 AM EDT Medication Prior Authorization for Primary [place] [address] Patient: Emma Min Patient : 1980 Subscriber Insurance: [place] [employer] Insurance Phone #: Sent via: [email or web address] [place]str[place]/Fax#: [id number] Physician: Rosy Tavarez APRN Return Medication Requested: Osphena Strength: 60 mg tablet Frequency: Take 60 mg by mouth daily Disp.: 30 Refills: 3 Currently taking: no Diagnosis for this medication: Low Libido ICD-10 code: R68.82 Prior medications trialed in this patient: documented in this encounter Plan of Treatment Upcoming Encounters Date Type Department Care Team (Late st Contact Info) Description 12/03/2024 1:00 PM EDT Appointment Hematology and Oncology at [place] [phone] 12/03/2024 2:00 PM EDT Office Visit Hematology and Oncology at [place] [address] Pelon Wisdom MD [facility] DR HEMATOLOGY [place] [address] Oksana Payne APRN [facility] DR HEMATOLOGY [place] [address] documented as of this encounter Visit Diagnoses Not on filedocumented in this encounter Care Teams Pizza Driver Relationship Specialty Start Date End Date Rosy Tavarez APRN [facility] GENERAL [place] [address] PCP - General General Internal Medicine 02/14/17 6/2 05/11 documented as of this encounter
--- OUTSIDE RECORDS SUMMARY | 2024-01-03 01:05 | XMS_ITS | Encounter Summary ---
Author Organization [facility] [place] [address] Care Team Providers Care Interactive Media Project Manager Name Role Phone Rosy Tavarez CERTIFIED MASTER LOCKSMITH Primary Care Provider [phone] Encounter Details Date Type Department Care Team (Late Contact Info) Description 11/13/2017 Orders Only [place]ational [place] [phone] Pricila Andrade [facility] [place] [address] Social History Tobacco Use Types Packs/Day Years [...] PM EDT Appointment Hematology [place] [phone] 12/03/2024 2:00 PM EDT Office Visit Hematology [place] [address] Pelon Wisdom MD [facility] HEMATOLOGY [place] [address] Oksana Payne APRN [facility] HEMATOLOGY [place] [address] documented as of this encounter Procedures Procedure Name Priority Date/Time Associated Diagnosis Comments VARICELLA ZOSTER ANTIBODY, IGG Routine 11/13/2017 3:32 PM EDT documented in this encounter Results * Varicella zoster Antibody, IgG (11/13/2017 3:32 PM EDT) Varicella Zoster Antibody IgG Pos [facility] Blood specimen (specimen) Venous Draw / Unknown 11/13/2017 3:32 PM EDT 11/14/2017 7:11 AM EDT Narrative Resulting Agency Comment Spec In Lab Pricila Andrade CERTIFIED MASTER LOCKSMITH IMMUNOLOGY ORDERABLE S Performing Organization Address City/State/[facility] Co de Phone Number [facility] [place] [place] [address] documented in this encounter Visit Diagnoses Not on filedocumented in this encounter Care Teams Interactive Media Project Manager Relationship Specialty Start Date End Date Rosy Tavarez, CERTIFIED MASTER LOCKSMITH [facility] GENERAL [place] [address] PCP - General General Internal Medicine 02/14/17 6/05/11 documented as of this encounter
--- OUTSIDE RECORDS SUMMARY | 2024-01-03 01:05 | XMS_ITS | Encounter Summary ---
Author Organization [facility] [place] [address] Care Team Providers Care Pulling Machine Operator Name Role Phone Jovan Esquivel MD Primary Care Provider [phone] Encounter Details Date Type Department Care Team (Late Contact Info) Description 04/05/2020 Ancillary Procedure [place] [phone] Jovan Esquivel MD PATHOLOGY DEPT [address] [place] [address] Social History Tobacco Use Types Packs/Day Years [...] PM EDT Appointment Hematology [place] [phone] 12/03/2024 2:00 PM EDT Office Visit Hematology [place] [address] Pelon Wisdom MD [facility] DR HEMATOLOGY AND ONCOLOGY [place], [place] [phone] Oksana Payne APRN [facility] [place] [address] documented as of this encounter Procedures Procedure Name Priority Date/Time Associated Diagnosis Comments FILM LIBRARY STORAGE ONLY MR HEAD AND SPINE Routine 04/05/2020 12:00 AM EST documented in this encounter Results * Film Library- Storage Only MR Head and Spine (04/05/2020 12:00 AM EST) Narrative JUSTICE - 04/20/2020 9:14 AM EST This exam is auto-finalizing. It's purpose is for storage only. Jovan Esquivel MD IMG FILM LIBRARY ORD ERABLES [place], [place] documented in this encounter Visit Diagnoses Not on filedocumented in this encounter Care Teams Pulling Machine Operator Relationship Specialty Start Date End Date Jovan Esquivel MD PATHOLOGY DEPT [address] [place] [id number] PCP - General Pathology 10/12/19 04/19/20 documented as of this encounter
--- OUTSIDE RECORDS SUMMARY | 2024-01-03 01:05 | XMS_ITS | Encounter Summary ---
Author Organization Formerly [facility] Address [facility] [place] [address] Care Team Providers Care Internet Marketing Executive Name Role Phone Che Sharpe Primary Care Provider + Encounter Details Date Type Department Care Team (Latest Contact Info) Description 07/27/2021 12:00 PM EDT - 07/27/2021 11:59 PM EDT Hospital Encounter [place]ology [place] [phone] Hemochromatosis associated with compound heterozygous mutation in [...] Sig Dispensed Refills Start Date End Date Ozempic 1 mg/dose (4 mg/3 mL) Pen [...] 35 capsule 11/12/2017 acetaminophen (TYLENOL) 500 mg TabletIndications:Pain, chest wall Take 2 tablets by mouth every 6 hours as needed for Pain. 30 tablet 1 03/12/2017 glucose (DEX4 GLUCOSE) 4 gram Tablet, Chewable Take 4 tablets by mouth as needed for Low blood sugar. 90 tablet 11 11/07/2016 Lantus Solostar U-100 Insulin 100 unit/mL (3 mL) pen 07/26/2021 02/01/2022 glipiZIDE XL (Glucotrol XL) 10 mg Tablet Extended Rel 24 hr Take 10 mg by mouth daily. 06/20/2021 02/01/2022 amitriptyline (Elavil) 100 mg Tablet Take 100 mg by mouth nightly. 02/01/2022 documented as of this encounter Plan of Treatment Upcoming Encounters Date Type Department Care Team (Late st Contact Info) Description 12/03/2024 1:00 PM EDT Appointment [place] [address] 12/03/2024 2:00 PM EDT Office Visit Hematology [place] [address] Pelon Wisdom MD [facility] [place] [address] Oksana Payne APRN [facility] [place] [address] documented as of this encounter Procedures Procedure Name Priority Date/Time Associated Diagnosis Comments HC VENIPUNCTURE Routine 07/27/2021 12:21 PM EDT Hemochromatosis associated with compound heterozygous mutation in HFE gene HC IRON BINDING CAPACITY Routine 07/27/2021 12:21 PM EDT Hemochromatosis associated with compound heterozygous mutation in HFE gene HC ESR-SEDIMENTATION RATE, BLOOD Routine 07/27/2021 12:21 PM EDT Hemochromatosis associated with compound heterozygous mutation in HFE gene HC FERRITIN, SERUM Routine 07/27/2021 12 :21 PM EDT Hemochromatosis associated with compound heterozygous mutation in HFE gene documented in this encounter Results * (ABNORMAL) Ferritin (07/27/2021 12:21 PM EDT) Ferritin 798(H) 15 - 150 ng/mL [facility] Comment: Pediatric reference ranges not verified [place] [facility] [place] interpret with caution. Reference ranges for females greater than 50 years of age approach values for men, i.e., 30-400 ng/mL. Blood 07/27/2021 12:2 1 PM EDT 07/27/2021 12:51 PM EDT Narrative Resulting Agency Comment Spec In Lab Pelon Wisdom MD CHEMISTRY ORDERA BLES [facility] [place] [address] * Iron and TIBC (07/27/2021 12:21 PM EDT) Iron 112 30 - 150 mcg/dL [facility] TIBC 270 250 - 450 mcg/dL [facility] Iron Saturation 41 20 - 50 % [facility] Blood 07/27/2021 12:2 1 PM EDT 07/27/2021 12:51 PM EDT Narrative Resulting Agency Comment Spec In Lab Pelon Wisdom MD CHEMISTRY ORDERA BLES Performing Organization Address [facility] Co de Phone Number [facility] [place] [address] * Sedimentation rate (07/27/2021 12:21 PM EDT) Sedimentation Rate Automated 30 2 - 37 mm/hr [facility] Comment: Effective April 01, 2019 new capillary photometric technology has resulted in a change in reference ranges. It is recommended that each ESR result be reviewed with its own age appropriate reference range. Blood 07/27/2021 12:2 1 PM EDT 07/27/2021 12:51 PM EDT Narrative Resulting Agency Comment Spec In Lab Pelon Wisdom MD HEMATOLOGY ORDER ALAN Performing Organization Address [facility]/ZIP Co de Phone Number [facility] [place] [address] * CRP, acute inflammation (07/27/2021 12:21 PM EDT) C-Reactive Protein <3.0 <=4.9 mg/L [facility] Blood 07/27/2021 12:2 1 PM EDT 07/27/2021 12:51 PM EDT Narrative Resulting Agency Comment Spec In Lab Pelon Wisdom MD CHEMISTRY ORDERA BLES [facility] [place] [address] documented in this encounter Visit Diagnoses Diagnosis Hemochromatosis associated with compound heterozygous mutation in HFE gene documented in this encounter Care Teams Internet Marketing Executive Relationship Specialty Start Date End Date Ceh Sharpe PA [address] [place] [address] [place] [address] PCP - General Internal Medicine 04/20/20 documented as of this encounter
--- OUTSIDE RECORDS SUMMARY | 2024-01-03 01:05 | XMS_ITS | Encounter Summary ---
Author Organization [facility] [place] [address] Care Team Providers Care Vice President Quality Name Role Phone Che Sharpe Primary Care Provider + Reason for Visit * Reason Comments Advice Only * Consultation (Routine) - Closed Specialty Diagnoses / Procedures Referred By Contac t Referred To Contact Hematology and Oncology Diagnoses Hemochromatosis, unspecified hemochromatosis type Che Sharpe PA [address] [place] [address] [facility] [address] [place] [address] Referral ID Status Reason Start Date Expiration Date V isits Requested Visits Authorized [id number] Closed Consult, Test & Treat 07/03/2021 07/03/2022 6 6 Encounter Details Date Type Department Care Team (Latest Contact Info) Description 07/27/2021 11:00 AM EDT Office Visit [place]ology [place] [address] [facility] [address] [place] [address] [facility] [place] [address] Hemochromatosis associated with compound heterozygous [...] place to sleep or slept in a [facility] (including now)? No 07/20/2021 Sex and Gender Information Value Date Recorded Sex Assigned at Not on file Gender Identity Not on file Sexual Orientation Not on file documented as of this encounter Last Filed Vital Signs Vital Sign Reading Time Taken Comments Blood Pressure 127/77 07/27/2021 10:58 AM EDT Pulse 111 07/27/2021 10:58 AM EDT Temperature 36.6 ??C (97.9 ??F) 07/27/2021 10:58 AM E DT Respiratory Rate 20 07/27/2021 10:58 AM EDT Oxygen Saturation 99% 07/27/2021 10:58 AM EDT Inhaled Oxygen Concentration - - Weight 78.5 kg (173 lb) 07/27/2021 10:58 AM EDT Height 165.1 cm (5' 5) 07/27/2021 10:58 AM EDT Body Mass Index 28.79 07/27/2021 10:58 AM EDT documented in this encounter Progress Notes * Pelon Tomlinson MD - 07/27/2021 11:00 AM EDT Images from the original note were not included. HEMATOLOGY CONSULTATION VISIT NOTE DATE OF VISIT : 07/27/21 REASON FOR VISIT: Emma Min is a 41 y.o. female referred by Che Dyole for evaluation of hemochromatosis. The history is [...] Emma Min is here for initial consultation. - lot of stomach issues, not eating very well, lot of aches and pains all the time, lot of anxiety. - She saw pain management for ? 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 She does not sleep much - She was [...] past surgical history on file. MEDICATIONS ??? Ozempic 1 mg/dose (4 mg/3 mL) Pen Injector ??? Lantus Solostar U-100 Insulin 100 unit/mL (3 mL) pen ??? glipiZIDE XL (Glucotrol XL) 10 mg Tablet Extended Rel 24 hr ??? medroxyPROGESTERone (Depo-PROVERA) 150 mg/mL Suspension ??? ibuprofen (Advil;Motrin) 800 mg Tablet ??? amitriptyline (Elavil) 100 mg Tablet ??? acetaminophen (TYLENOL) 500 mg Tablet ??? glucose (DEX4 GLUCOSE) 4 gram Tablet, Chewable ??? nitrofurantoin (Macrobid) 100 mg Capsule ??? acyclovir (ZOVIRAX) 200 mg Capsule ALLERGIES/ADR Allergies Allergen Reactions ??? Latex ??? Other [Unclassified Drug] Anaphylaxis Any type of SSRI ??? Quetiapine Anaphylaxis All anti depressant medications ??? Paroxetine Hcl CIS - Edema ??? Lactose ??? Metformin Diarrhea PERSONAL and SOCIAL HISTORY ?? Lives in: [place], [place], [place] [facility]. [facility] is the closest hospital. ?? Work history: She works in an [employer] that makes [employer]ets. ?? ETOH: occasional ?? Smoking: No ?? [...] family PHYSICAL EXAM VITAL SIGNS: Blood pressure 127/77, pulse (!) 111, temperature 36.6 ??C (97.9 ??F), temperature source Temporal, resp. rate 20, height 165.1 cm (5' 5), weight 78.5 kg (173 lb), SpO2 99 %. ECOG PS: 0 GENERAL: Emma Min is a well-appearing 41 y.o. female in no acute distress. HEENT: Eyes: b/l PERRL, no conjunctival pallor , no scleral icterus; Sinuses: non-tender; Oropharynx : moist , clear, No lesions, No thrush. ENDOCRINE: No thyromegaly palpated. CARDIOVASCULAR: Heart with regular rate and rhythm without S3,S4 or murmurs. PULMONARY: Lungs are clear to auscultation without rales, rhonchi or wheezing. GASTROINTESTINAL: Abdomen soft and non-tender without palpable masses or hepatosplenomegaly. MUSCULOSKELETAL: Neck supple with full ROM. No spine or CVA tenderness. SKIN: No rashes, bruises or petechiae. LYMPH: No abnormal lymphadenopathy. NEUROLOGICAL: Alert and oriented to person, place and time; No focal neurological deficits; EXT: No peripheral edema. PSYCHIATRIC: normal affect and mood LABORATORY Recent Results (from the past 72 hour(s)) CRP, acute inflammation Result Value Ref Range CRP <3.0 <=4.9 mg/L Sedimentation rate Result Value Ref Range Sed Rate 30 2 - 37 mm/hr Iron and TIBC Result Value Ref Range Iron 112 30 - 150 mcg/dL TIBC 270 250 - 450 mcg/dL Iron Saturation 41 20 - 50 % Ferritin Result Value Ref Range Ferritin 798 (H) 15 - 150 ng/mL RADIOLOGY - None ASSESSMENT & PLANS Emma [...] testing of her 18 year old daughter And checking ferritin level for her 16 year old daughter now and genetic testing when she becomes 19 years of age. We repeated some labs today. Her ferritin from today's labs came back elevated at 798 with iron saturation of 41%. So, will initiate phlebotomies. She stated that she has poor peripheral veins. If doing phlebotomies becomes a trouble, then will reevaluate.. We will start with the 500 mL phlebotomy once every 3 weeks, checking ferritin 173 phlebotomies. She lives closer to [facility] and will arrange for phlebotomy today. We will plan to see her in 6 months with CBC, ferritin, iron/TIBC. I called her after the visit and reviewed the labs and plans. She agreed with the plan. I reviewed my impression and recommendations with Emma Min and answered all the questions..Pt agreed with the plan. Thank you Che Harper for asking us to see this very pleasant patient. Please don't hesitate to contact me if you'd like to discuss this patient's situation further. Total time spent ~80mts , majority of which is spent face to face, also includes, time spent over the phone with her about the labs, reviewing her outside records , documenting and coordinating the care etc.. Pelon Tomlinson MD [facility] CC: NARENDRA Gray Elizabeth C * Pelon Tomlinson MD - 07/27/2021 11:00 AM EDT Images from the original note were not included. N [facility] H[facility]AT[facility]Y AND ONCOL[facility]Y AT [facility] [address] Date: 07/27/21 Patient Name: Emma Min : 1980 Diagnosis: Hemochromatosis Referral to [site]: [place], [place] Orders: [x] Draw 500ml of blood once every 3 weeks. Hold for Hemoglobin less than 11g/dL LABS: [x] Check ferritin once every 3 phlebotomies [x] Check H/H prior to every phlebotomy. Pelon Tomlinson MD [facility] documented in this encounter Plan of Treatment Upcoming Encounters Date Type Department Care Team (Late st Contact Info) Description 12/03/2024 1:00 PM EDT Appointment H[place]ology [place] [address] 12/03/2024 2:00 PM EDT Office Visit [place] [phone] [facility] [address] [place] [address] [facility] [place] [address] documented as of this encounter Results * Ferritin (12/26/2021 12:30 PM EDT) [facility] Ferritin 129 15 - 150 ng/mL [facility] Comment: Pediatric reference ranges not verified at [facility] interpret with caution. Reference ranges for females greater than 50 years of age approach values for men, i.e., 30-400 ng/mL. Blood 12/26/2021 12:3 0 PM EDT 12/26/2021 2:19 PM EDT Narrative Resulting Agency Comment Spec In Lab Pelon Wisdom MD CHEMISTRY ORDERA BLES Performing Organization Address [facility]/ZIP Co de Phone Number [facility] [place] [address] * CRP, acute inflammation (07/27/2021 12:21 PM EDT) [facility] C-Reactive Protein <3.0 <=4.9 mg/L [facility] Blood 07/27/2021 12:2 1 PM EDT 07/27/2021 12:51 PM EDT Narrative Resulting Agency Comment Spec In Lab Pelon Wisdom MD CHEMISTRY ORDERA BLES Performing Organization Address [facility] Co de Phone Number [facility] [place] [address] * Sedimentation rate (07/27/2021 12:21 PM EDT) [facility] Sedimentation Rate Automated 30 2 - 37 mm/hr [facility] Comment: Effective April 01, 2019 new capillary photometric technology has resulted in a change in reference ranges. It is recommended that each ESR result be reviewed with its own age appropriate reference range. Blood 07/27/2021 12:2 1 PM EDT 07/27/2021 12:51 PM EDT Narrative Resulting Agency Comment Spec In Lab Pelon Wisdom MD HEMATOLOGY ORDER ALAN Performing Organization Address [facility] Co de Phone Number [facility] [place] [address] * Iron and TIBC (07/27/2021 12:21 PM EDT) [facility] Signature Iron 112 30 - 150 mcg/dL [facility] TIBC 270 250 - 450 mcg/dL [facility] Iron Saturation 41 20 - 50 % [facility] Blood 07/27/2021 12:2 1 PM EDT 07/27/2021 12:51 PM EDT Narrative Resulting Agency Comment Spec In Lab Pelon Wisdom MD CHEMISTRY ORDERA BLEMukesh Performing Organization Address City/[facility] Co de Phone Number [facility] [place] [address] * (ABNORMAL) Ferritin (07/27/2021 12:21 PM EDT) Ferritin 798(H) 15 - 150 ng/mL [facility] Comment: Pediatric reference ranges not verified at [facility], interpret with caution. Reference ranges for females greater than 50 years of age approach values for men, i.e., 30-400 ng/mL. Blood 07/27/2021 12:2 1 PM EDT 07/27/2021 12:51 PM EDT Narrative Resulting Agency Comment Spec In Lab Pelon Wisdom MD CHEMISTRY ORDERA BLES Performing Organization Address [facility] Co de Phone Number [facility] [place] [address] documented in this encounter Visit Diagnoses Diagnosis Hemochromatosis associated with compound heterozygous mutation in HFE gene documented in this encounter Care Teams Vice President Quality Relationship Specialty Start Date End Date Che Sharpe PA [address] [place] [address] [place] [address] PCP - General Internal Medicine 04/20/20 documented as of this encounter
--- OUTSIDE RECORDS SUMMARY | 2024-01-03 01:05 | XMS_ITS | Encounter Summary ---
Author Organization [facility] [place] [address] Care Team Providers Care Dock Operations Supervisor Name Role Phone Che Sharpe Primary Care Provider + Reason for Visit * Reason Comments Procedure Encounter Details Date Type Department Care Team (Latest Contact Info) Description 09/14/2021 11:14 AM EDT - 09/14/2021 11:59 PM EDT Hospital Encounter [place] [address] Hemochromatosis, hereditary Discharge Disposition: Home Social History Tobacco Use [...] Sign Reading Time Taken Comments Blood Pressure 116/72 09/14/2021 11:20 AM EDT Pulse 81 09/14/2021 11:20 AM EDT Temperature 36.8 ??C (98.3 ??F) 09/14/2021 1 1:20 AM EDT Respiratory Rate - - Oxygen Saturation - - Inhaled Oxygen Concentration - - Weight 74.8 kg (164 lb 14.5 oz) 022 11:20 AM EDT Height - - Body Mass Index 27.44 07/27/2021 10:58 AM EDT documented in this encounter Medications at [...] Progress Notes * Kolton Estrella MD - 09/14/2021 1:08 PM EDTSumiqra: AI Note Transfusion Medicine Service Therapeutic Phlebotomy Procedure Type: Therapeutic Phlebotomy Requesting Physician: Pelon Tomlinson Date of Procedure: 09/14/2021 Treatment Pathway: Hemochromatosis/Iron Overload Program Frequency of Phlebotomy: Every 3 Weeks Criteria for Performance of Therapeutic Phlebotomy: Hemoglobin greater than 11 g/dL Pre-Collection Hemoglobin value: 13.3 g/dL Criteria for Therapeutic Phlebotomy Met? Yes Volume Drawn (mL): 500 Volume Replaced (mL): 500 mL 0.9% normal saline Vital Signs: Blood Pressure: 116/72 mmHg Temperature: 36.8 ??C (98.3 ??F) degrees C Pulse: 81 bpm Therapeutic Goal: Ferritin (ng/mL) less than: 100 Frequency of Ferritin Monitoring: Every 3 phlebotomy Ferritin Drawn Today? No Reaction: No Comments: Tolerated well with peripheral IV, needed fluids, more nausea with draw PHYSICIAN ASSESSMENT AND PLAN: I have reviewed the procedure note and the patient medical record. 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 The current treatment regimen remains appropriate. Recent Labs 07/31/21 0800 07/27/21 1221 FERRITIN 678* 798* Arabella Castillo MD 09/14/2021 ATTENDING REVIEW: I have reviewed the procedure note and the patient medical record. This patient requires on-going therapeutic phlebotomy. I agree with the plan as outlined by . KOLTON ESTRELLA MD 09/14/2021 documented in this encounter Miscellaneous Notes * Addendum Note - Kolton Estrella MD - 09/14/2021 5:26 PM EDT Encounter addended by: Kolton Estrella MD on: 09/14/2021 5:26 PM Actions taken: Clinical Note Signed * Addendum Note - Carmen Reynoso RN - 09/14/2021 1:23 PM EDTEncounter addended by: Carmen Reynoso RN on: 09/14/2021 1:23 PM Actions taken: Flowsheet accepted, LDA properties accepted documented in this encounter Plan of Treatment Upcoming Encounters Date Type Department Care Team (Late st Contact Info) Description 12/03/2024 1:00 PM EDT Appointment Hematology [place] [address] 12/03/2024 2:00 PM EDT Office Visit Hematology [place] [address] Pelon iWsdom MD [facility] DR HEMATOLOGY [place] [address] Oksana Payne APRN [facility] DR HEMATOLOGY [place] [address] documented as of this encounter Visit Diagnoses Diagnosis Hemochromatosis, hereditary Hereditary hemochromatosis documented in this encounter Care Teams Dock Operations Supervisor Relationship Specialty Start Date End Date Che Sharpe PA [address] [place] [address] [place] [address] PCP - General Internal Medicine 04/20/20 documented as of this encounter
--- OUTSIDE RECORDS SUMMARY | 2024-01-03 01:05 | XMS_ITS | Encounter Summary ---
Author Organization [facility] [place] [address] Care Team Providers Care Storage Administrator Name Role Phone Che Sharpe Primary Care Provider + Reason for Visit * Reason Comments Procedure Encounter Details Date Type Department Care Team (Latest Contact Info) Description 11/09/2021 9:06 AM EDT - 11/09/2021 11:59 PM EDT Hospital Encounter [place] [address] Hereditary hemochromatosis Discharge Disposition: Home Social History Tobacco Use [...] Sign Reading Time Taken Comments Blood Pressure 138/83 11/09/2021 9:08 AM EDT Pulse 108 11/09/2021 9:08 AM EDT MD denny are Temperature 36.8 ??C (98.2 ??F) 11/09/2021 9:08 AM ED T Respiratory Rate - - Oxygen Saturation - - Inhaled Oxygen Concentration - - Weight 74.8 kg (164 lb 14.5 oz) 11/09/2021 9:08 AM EDT Height - - Body Mass Index 27.44 07/27/2021 10:58 AM EDT documented in this encounter Medications at Time of Discharge Medication Sig Dispensed Refills Start Date End Date insulin lispro (HUMALOG KWIKPEN INSULIN SUBQ) Inject 8 Units subcutaneously 3 times daily (with meals). 10/16/2021 Ozempic 1 mg/dose (4 mg/3 mL) Pen [...] Progress Notes * Pola Hull MD - 11/09/2021 1:13 PM EDT Transfusion Medicine Service Therapeutic Phlebotomy Procedure Type: Therapeutic Phlebotomy Requesting Physician: Pelon Tomlinson Date of Procedure: 11/09/2021 Treatment Pathway: Hemochromatosis/Iron Overload Program Frequency of Phlebotomy: Every 3 Weeks Criteria for Performance of Therapeutic Phlebotomy: Hemoglobin greater than 11 g/dL Pre-Collection Hemoglobin value: 13.6 g/dL Criteria for Therapeutic Phlebotomy Met? Yes Volume Drawn (mL): 500 Volume Replaced (mL): 0 mL 0.9% normal saline Vital Signs: Blood Pressure: 138/83 mmHg Temperature: 36.8 ??C (98.2 ??F) degrees C Pulse: (!) 108 (MD aware) bpm Therapeutic Goal: Ferritin (ng/mL) less than: 100 Frequency of Ferritin Monitoring: Every 3 phlebotomy Ferritin Drawn Today? No Reaction: No Comments: Tolerated well, patient declining fluids today PHYSICIAN ASSESSMENT AND PLAN: I have reviewed the procedure note and the patient medical record. This patient requires on-going therapeutic phlebotomy. The current treatment regimen remains appropriate. Recent Labs 10/05/21 1152 07/31/21 0800 07/27/21 1221 FERRITIN 316* 678* 798* Pola Hull MD 11/09/2021 Associated attestation - Ceci Kelly MD - 11/09/2021 5:18 PM EDT ATTENDING MD ATTESTATION: I reviewed the clinical note and agree with the assessment and plan presented by Dr. Hull. Ceci Kelly MD 11/09/2021 documented in this encounter Miscellaneous Notes * Addendum Note - Ceci Kelly MD - 11/09/2021 5:18 PM EDTEncounter addended by: Ceci Kelly MD on: 11/09/2021 5:18 PM Actions taken: Cosign clinical note with attestation documented in this encounter Plan of Treatment Upcoming Encounters Date Type Department Care Team (Late st Contact Info) Description 12/03/2024 1:00 PM EDT Appointment H[place]ology [place] [address] 12/03/2024 2:00 PM EDT Office Visit Hematology [place] [address] Pelon Wisdom MD [facility] DR HEMATOLOGY [place] [address] Oksana Payne APRN [facility] [address] HEMATOLOGY [place] [address] documented as of this encounter Visit Diagnoses Diagnosis Hereditary hemochromatosis documented in this encounter Care Teams Storage Administrator Relationship Specialty Start Date End Date Che Sharpe PA [address] [place] [address] [place] [address] PCP - General Internal Medicine 04/20/20 documented as of this encounter
--- OUTSIDE RECORDS SUMMARY | 2024-01-03 01:05 | XMS_ITS | Encounter Summary ---
Author Organization [facility] [place] [address] Care Team Providers Care Hydroelectric Plant Mechanical Engineer Name Role Phone Che Sharpe Primary Care Provider + Encounter Details Date Type Department Care Team (Late st Contact Info) Description 07/25/2021 Telephone Rheumatology at [facility] [place] [phone] Mayi Durant Social History Tobacco Use Types Packs/Day Years [...] PM EDT Appointment Hematology [place] [phone] 12/03/2024 2:00 PM EDT Office Visit Hematology [place] [phone] Pelon Wisdom MD [facility] [address] [place] [address] Oksana Payne APRN [facility] DR HEMATOLOGY [place] [address] documented as of this encounter Visit Diagnoses Not on filedocumented in this encounter Care Teams Hydroelectric Plant Mechanical Engineer Relationship Specialty Start Date End Date Che Sharpe PA [address] [place] [address] [place] [address] PCP - General Internal Medicine 04/20/20 documented as of this encounter
--- OUTSIDE RECORDS SUMMARY | 2024-01-03 01:05 | XMS_ITS | Encounter Summary ---
Author Organization Formerly [facility] [place] [address] Care Team Providers Care Bus Washer Name Role Phone Che Sharpe Primary Care Provider + Encounter Details Date Type Department Care Team (Late st Contact Info) Description 08/01/2021 Telephone Hematology [place] [phone] Mely Perez RN Social History Tobacco Use [...] Telephone Encounter - Mely Perez RN - 08/01/2021 12:47 PM EDTSummary: Lab Tracking Received lab results dated 07/31/21 via fax from Sherin Butler. Results have been input into eDH. Note sent to Dr. Tomlinson and Mecca Payne APRN with lab results. Recent Results (from the past 72 hour(s)) Ferritin Result Value Ref Range Ferritin 678 (A) 6 - 252 Hemoglobin Result Value Ref Range Hemoglobin 14.9 12.0 - 16.0 DX: Hemachromatosis PLAN: labs/phlebotomy q3 weeks, check Ferritin every 3rd phlebotomy. Labs/MD f/u on 02/01/22. RN will continue to track labs, monitor status and coordinate care. documented in this encounter Plan of Treatment Upcoming Encounters Date Type Department Care Team (Late st Contact Info) Description 12/03/2024 1:00 PM EDT Appointment Hematology [place] [address] 12/03/2024 2:00 PM EDT Office Visit Hematology [place] [phone] Pelon Wisdom MD [facility] HEMATOLOGY [place] [address] Oksana Payne APRN [facility] HEMATOLOGY [place] [address] documented as of this encounter Procedures Procedure Name Priority Date/Time Associated Diagnosis Comments HEMOGLOBIN Routine 07/31/2021 8:00 AM EDT FERRITIN Routine 07/31/2021 8:00 AM EDT documented in this encounter Results * Hemoglobin (07/31/2021 8:00 AM EDT) Hemoglobin 14.9 12.0 - 16.0 EXTERNAL LAB Blood 07/31/2021 8:00 AM EDT Historical Provider HEMATOLOGY ORDERA BLES EXTERNAL LAB * (ABNORMAL) Ferritin (07/31/2021 8:00 AM EDT) Ferritin 678(A) 6 252 EXTERNAL LAB Blood 07/31/2021 8:00 AM EDT Historical Provider CHEMISTRY ORDERAB LES EXTERNAL LAB documented in this encounter Visit Diagnoses Not on filedocumented in this encounter Care Teams Bus Washer Relationship Specialty Start Date End Date Che Sharpe PA [address] [place] [id number] PCP - General Internal Medicine 04/20/20 documented as of this encounter
--- OUTSIDE RECORDS SUMMARY | 2024-01-03 01:05 | XMS_ITS | Encounter Summary ---
Author Organization [facility] [place] [address] Care Team Providers Care Disintegrator Name Role Phone Che Sharpe Primary Care Provider + Reason for Visit * Reason Comments Procedure Encounter Details Date Type Department Care Team (Latest Contact Info) Description 12/01/2021 9:30 AM EDT - 12/01/2021 11:59 PM EDT Hospital Encounter [place] [address] Type 2 diabetes mellitus without complication, unspecified whether custodial insulin use; Hemochromatosis, unspecified hemochromatosis type Discharge Disposition: Home [...] Sign Reading Time Taken Comments Blood Pressure 140/77 12/01/2021 10:15 AM EDT Pulse - - Temperature 36.3 ??C (97.3 ??F) 12/01/2021 10:15 AM E DT Respiratory Rate - - [...] as of this encounter Progress Notes * Aline Molina MD - 12/01/2021 10:48 AM EDT Transfusion Medicine Service Therapeutic Phlebotomy Procedure Type: Therapeutic Phlebotomy Requesting Physician: Pelon Tomlinson Date of Procedure: 12/01/2021 Treatment Pathway: Hemochromatosis/Iron Overload Program Frequency of Phlebotomy: Every 3 Weeks Criteria for Performance of Therapeutic Phlebotomy: Hemoglobin greater than 11 g/dL Pre-Collection Hemoglobin value: 11.4 g/dL Criteria for Therapeutic Phlebotomy Met? Yes Volume Drawn (mL): 500 Volume Replaced (mL): 500 mL 0.9% normal saline Vital Signs: Blood Pressure: 140/77 mmHg Temperature: 36.3 ??C (97.3 ??F) degrees C Pulse: bpm Therapeutic Goal: Ferritin (ng/mL) less than: 100 Frequency of Ferritin Monitoring: Every 3 phlebotomy Ferritin Drawn Today? No Reaction: No PHYSICIAN ASSESSMENT AND PLAN: I have reviewed the procedure note and the patient medical record.This patient with hemochromatosis(compound heterozygous for??C282Y??and??H63D??variants) requires on-going therapeutic phlebotomy. The current treatment regimen remains appropriate. Recent Labs 10/05/21 1152 07/31/21 0800 07/27/21 1221 FERRITIN 316* 678* 798* Ana Renee DO 12/01/2021 ATTENDING MD ATTESTATION: I reviewed the clinical note and agree with the assessment and plan presented by Dr. Renee. Check ferritin at next visit as she may be approaching time to transition to maintenance. ALINE MOLINA MD 12/01/2021 documented in this encounter Miscellaneous Notes * Addendum Note - Aline Molina MD - 12/01/2021 5:17 PM EDTEncounter addended by: Aline Molina MD on: 12/01/2021 5:17 PM Actions taken: Clinical Note Signed documented in this encounter Plan of Treatment Upcoming Encounters Date Type Department Care Team (Late st Contact Info) Description 12/03/2024 1:00 PM EDT Appointment [place]ology [place] [address] 12/03/2024 2:00 PM EDT Office Visit [place]ematology [place] [address] Pelon Wisdom MD [facility] [address] [place] [address] Oksana Payne APRN [facility] [address] [place] [address] Scheduled Orders Name Type Priority Associated Diagnoses Orde r Schedule Lab Use Only, Fax Request Lab Routine Type 2 diabetes mellitus without complication, unspecified whether custodial insulin use 1 Occurrences starting 12/01/2021 until 12/01/2021 documented as of this encounter Procedures Procedure Name Priority Date/Time Associated Diagnosis Comments LIPID PANEL (NO REFLEX) Routine 12/01/2021 11:02 AM EDT Type 2 diabetes mellitus without complication, unspecified whether custodial insulin use GOLD TUBE HOLD Routine 12/01/2021 11:02 AM EDT HC HEMOGLOBIN A1C Routine 12/01/2021 11: 02 AM EDT Type 2 diabetes mellitus without complication, unspecified whether custodial insulin use BASIC METABOLIC PANEL Routine 12/01/2021 11:02 AM EDT Type 2 diabetes mellitus without complication, unspecified whether custodial insulin use documented in this encounter Results * Gold Tube HOLD (12/01/2021 11:02 AM EDT) Gold Hold Sample in lab. [facility] Blood Venous Draw / Unknown 12/01/2021 11:02 AM EDT 12/01/2021 11:21 AM EDT Che MACKEY CHEMISTRY ORDERA BLES [facility] [place] [address] * (ABNORMAL) Basic Metabolic Panel (non-fasting) (12/01/2021 11:02 AM EDT) Glucose 135 65 - 199 mg/dL [facility] Comment:Diabetes: >=200 mg/d L plus symptoms Blood Urea Nitrogen 7(L) 8 - 18 mg/dL [facility] Creatinine 0.70 0.70 - 1.20 mg/dL [facility] Sodium 140 135 - 145 mmol/L [facility] Potassium 3.6 3.5 - 5.0 mmol/L [facility] Comment: Please note: ??Patients with WBC >100,000 may have falsely elevated Potassium levels. ??For accurate Potassium quantification in these patients send serum separator tube (gold top) for subsequent determinations. ??Contact the Clinical Chemistry Laboratory if there are any questions. Chloride 106 98 - 107 mmol/L [facility] Carbon Dioxide 24 22 - 31 mmol/L [facility] Anion Gap 10 5 - 15 mmol/L [facility] Calcium 8.8 8.5 - 10.5 mg/dL [facility] Est Glomerular Filtration Rate 112 >=60 mL/min/1. 73 m?? [facility] Comment: This patient's estimated GFR was [...] In Lab Che MACKEY CHEMISTRY MYCHAL VELAZQUEZ [facility] [place] [address] * (ABNORMAL) Hemoglobin A1c (12/01/2021 11:02 AM EDT) Hemoglobin A1c 6.3(H) 4.3 - 5.6 % [facility] Comment: Reference Range: 4.3 - 5.6% [...] Mellitus, Diabetes Care 2013; 36: Suppl. 1, I25-82 Estimated Average Glucose 135 mg/dL [facility] Comment: eAG equivalents for HbA1c percentages: [...] into estimated average glucose values. ??Diabetes Care 2008:31(8):9791-5168. Blood 12/01/2021 11:0 2 AM EDT 12/01/2021 11:20 AM EDT Narrative Resulting Agency Comment Spec In Lab Che MACKEY CHEMISTRY LYLEA MARCUS [facility] [place] [address] * Lipid Panel (No Reflex) (12/01/2021 11:02 AM EDT) Cholesterol, Total 193 mg/dL [facility] Comment: Lower Risk: <200 mg/dL Average Risk: 200-239 mg/dL Higher Risk: >gi=893 mg/dL Triglyceride 159 mg/dL [facility] Comment: Average Risk/Lower Risk: <150 mg/dL Borderline High Risk: 150-199 mg/dL High Risk: 200-499 mg/dL Very High Risk: >gv=872 mg/dL HDL Cholesterol 34 mg/dL [facility] Comment: Males: ?? Higher Risk: <40 mg/dL Females: ?? Higher Risk: <50 mg/dL LDL Cholesterol 127 mg/dL [facility] Comment: Lowest Risk: <100 mg/dL Lower Risk: 100-129 mg/dL Borderline High Risk: 130-159 mg/dL High Risk: 160-189 mg/dL Very High Risk: >ss=974 mg/dL Cholesterol/HDL Ratio 5.7 ratio [facility] Lipid Interpretation See Note [facility] Comment: Lipid management should be guided by a patient? s ASCVD risk, goals and preferences. ACC/AHA Guidelines recommend high intensity statin if clinical ASCVD or LDL greater than or equal to 190 mg/dL. http://Skai.com/LXK-OGI-Xbdmrgiiq Adults aged 40-75 with LDL 70-189 mg/dL should have their 10 year ASCVD risk estimated with the ACC/AHA ASCVD risk job cost estimator http://tools.acc.org/EORXT-Grvl-Iwsaxaznu/ Statin should be discussed if risk greater [...] Spec In Lab Che MACKEY CHEMISTRY ORDERA PORSCHE [facility] [place] [address] documented in this encounter Visit Diagnoses Diagnosis Type 2 diabetes mellitus without complication, unspecified whether buttermaker continuous churn insulin use Hemochromatosis, unspecified hemochromatosis type documented in this encounter Care Teams Disintegrator Relationship Specialty Start Date End Date hCe Sharpe PA [address] [place] [address] [place] [address] PCP - General Internal Medicine 04/20/20 documented as of this encounter
--- OUTSIDE RECORDS SUMMARY | 2024-01-03 01:05 | XMS_ITS | Encounter Summary ---
Author Organization [facility] [place] [address] Care Team Providers Care Street Vendor Name Role Phone Che Sharpe Primary Care Provider + Reason for Visit * Reason Comments Procedure * Consultation (Routine) - Closed Specialty Diagnoses / Procedures Referred By Contlaura t Referred To Contact Diagnoses Hemochromatosis associated with compound heterozygous mutation in HFE gene Pelon Wisdom MD [facility] [address] [place] [address] [facility] [place] [address] Referral ID Status Reason Start Date Expiration Date V isits Requested Visits Authorized [id number] Closed Consult, Test & Treat 08/15/2021 08/15/2022 18 18 Encounter Details Date Type Department Care Team (Latest Contact Info) Description 11/03/2021 11:19 AM EDT - 11/03/2021 11:59 PM EDT Hospital Encounter [place] [address] Hemochromatosis associated with mutation in HFE gene Discharge Disposition: Home [...] place to sleep or slept in a nursing home (including now)? No 07/20/2021 Sex and Gender Information Value Date Recorded Sex Assigned at Not on file Gender Identity Not on file Sexual Orientation Not on file documented as of this encounter Last Filed Vital Signs Vital Sign Reading Time Taken Comments Blood Pressure 114/70 11/03/2021 12:33 PM EDT Pulse 87 11/03/2021 12:33 PM EDT Temperature 36.6 ??C (97.9 ??F) 11/03/2021 12:33 PM E DT Respiratory Rate - - Oxygen Saturation - - Inhaled Oxygen Concentration - - Weight 74.8 kg (165 lb) 11/03/2021 12:33 PM EDT Height - - Body Mass Index 27.46 07/27/2021 10:58 AM EDT documented in this [...] Progress Notes * Aline Molina MD - 11/03/2021 1:15 PM EDT Transfusion Medicine Service Therapeutic Phlebotomy Procedure Type: Therapeutic Phlebotomy Requesting Physician: Pelon Tomlinson Date of Procedure: 11/03/2021 Treatment Pathway: Hemochromatosis/Iron Overload Program Frequency of Phlebotomy: Every 3 Weeks Criteria for Performance of Therapeutic Phlebotomy: Hemoglobin greater than 11 g/dL Pre-Collection Hemoglobin value: 13.6 g/dL Criteria for Therapeutic Phlebotomy Met? Yes Volume Drawn (mL): 120 Volume Replaced (mL): 0 mL 0.9% normal saline Vital Signs: Blood Pressure: 114/70 mmHg Temperature: 36.6 ??C (97.9 ??F) degrees C Pulse: 87 bpm Therapeutic Goal: Ferritin (ng/mL) less than: 100 Frequency of Ferritin Monitoring: Every 3 phlebotomy Ferritin Drawn Today? No Reaction: No Comments: 120ml drawn off of R arm. IV unsucessful in L arm. PHYSICIAN ASSESSMENT AND PLAN: I have reviewed the procedure note and the patient medical record. This patient requires on-going therapeutic phlebotomy. The current treatment regimen remains appropriate. Recent Labs 10/05/21 1152 07/31/21 0800 07/27/21 1221 FERRITIN 316* 678* 798* Selina Chatterjee MD 11/03/2021 ATTENDING MD ATTESTATION: I reviewed the clinical note and agree with the assessment and plan presented by Dr. Sang Chatterjee. We were not able to obtain venous access today to allow for a full procedure. Will try again at next visit. ALINE MOLINA MD 11/03/2021 documented in this encounter Plan of Treatment Upcoming Encounters Date Type Department Care Team (Late st Contact Info) Description 12/03/2024 1:00 PM EDT Appointment Hematology and Oncology at [place] [phone] 12/03/2024 2:00 PM EDT Office Visit Hematology [place] [address] Pelon Wisdom MD [facility] [place] [address] Oksana Payne APRN [facility] [place] [address] documented as of this encounter Visit Diagnoses Diagnosis Hemochromatosis associated with mutation in HFE gene documented in this encounter Care Teams Street Vendor Relationship Specialty Start Date End Date Che Sharpe PA [address] [place] [address] [place] [address] PCP - General Internal Medicine 04/20/20 documented as of this encounter
--- OUTSIDE RECORDS SUMMARY | 2024-01-03 01:05 | XMS_ITS | Encounter Summary ---
Author Organization [facility] [place] [address] Care Team Providers Care Chimney Construction Supervisor Name Role Phone Rosy Tavarez Sabrina STILES Primary Care Provider Reason for Visit * Reason Onset Date Comments Bumped Appointment 02/17/2018 Encounter Details Date Type Department Care Team (Late st Contact Info) Description 02/17/2018 [place] [address] Taylor Mtz OD [facility] [place] [address] Bumped Appointment Social History Tobacco Use Types Packs/Day Years [...] encounter Miscellaneous Notes * Telephone Encounter - Estrella Baldwin - 02/17/2018 4:04 PM EDT Called to [facility] 02/27/18 1 Y MANDO Mtz. Did not have appt avail until 05/2018, pt decided to seek out provider closer to home before year's end due to insurance coverage documented in this encounter Plan of Treatment Upcoming Encounters Date Type Department Care Team (Late Contact Info) Description 12/03/2024 1:00 PM EDT Appointment Hematology [place] [address] 12/03/2024 2:00 PM EDT Office Visit Hematology [place] [address] Pelon Wisdom MD [facility] DR [place] [address] Oksana Payne APRN [facility] DR [place] [address] documented as of this encounter Visit Diagnoses Not on filedocumented in this encounter Care Teams Chimney Construction Supervisor Relationship Specialty Start Date End Date Rosy Tavarez APRN [facility] [place] [address] PCP - General General Internal Medicine 02/14/1709/21 documented as of this encounter
--- OUTSIDE RECORDS SUMMARY | 2024-01-03 01:05 | XMS_ITS | Encounter Summary ---
Author Organization [facility] [place] [address] Care Team Providers Care Social Media Manager Name Role Phone Che Sharpe Primary Care Provider + Encounter Details Date Type Department Care Team (Late st Contact Info) Description 08/16/2021 Telephone Hematology [place] [phone] Mely Perez RN Social History Tobacco Use [...] Telephone Encounter - Mely Perez RN - 08/16/2021 9:22 AM EDT RN received return call from patient. Emma states it is very difficult for her to make the trip to [facility] for her phlebotomies due to her having to miss work an entire day. She also states she has two children that make it difficult to be away for that long. [place] other interventions such has increasing fluids for few days prior to appt and warm compress to her arm to see if more successful. If that doesn't work she will try to make theschedule of traveling to [facility] [id number] work, but it would need to be temporary. RN provided reassurance that most often once the Ferritin reaches a normal level the frequency of phlebotomy lessens. RNreassured Emma that Dr. Tomlinson would be consulted and she would be updated with recommendations. Emma verbalized understanding and agreement. documented in this encounter Plan of Treatment Upcoming Encounters Date Type Department Care Team (Late st Contact Info) Description 12/03/2024 1:00 PM EDT Appointment H[place]ology [place] [address] 12/03/2024 2:00 PM EDT Office Visit Hematology [place] [address] Pelon Wisdom MD [facility] DR [place] [address] Oksana Payne APRN [facility] DR [place] [address] documented as of this encounter Visit Diagnoses Not on filedocumented in this encounter Care Teams Social Media Manager Relationship Specialty Start Date End Date Che Sharpe PA [address] [place] [address] [place] [address] PCP - General Internal Medicine 04/20/20 documented as of this encounter
--- OUTSIDE RECORDS SUMMARY | 2024-01-03 01:05 | XMS_ITS | Encounter Summary ---
Author Organization [facility] [place] [address] Care Team Providers Care Personal Care Home Administrator Name Role Phone Che Sharpe Primary Care Provider + Reason for Visit * Reason Comments Procedure * Consultation (Routine) - Closed Specialty Diagnoses / Procedures Referred By Contlaura t Referred To Contact Diagnoses Hemochromatosis associated with compound heterozygous mutation in HFE gene Pelon Wisdom MD [facility] [address] [place] [address] [facility] [place] [address] Referral ID Status Reason Start Date Expiration Date V isits Requested Visits Authorized [id number] Closed Consult, Test & Treat 08/15/2021 08/15/2022 18 18 Encounter Details Date Type Department Care Team (Latest Contact Info) Description 08/24/2021 1:44 PM EDT - 08/24/2021 11:59 PM EDT Hospital Encounter [place] [address] Hemochromatosis associated with compound heterozygous mutation in [...] Sign Reading Time Taken Comments Blood Pressure 128/66 08/24/2021 2:14 PM EDT Pulse 103 08/24/2021 2:14 PM EDT Temperature 36.4 ??C (97.6 ??F) 08/24/2021 2:14 PM ED T Respiratory Rate - - Oxygen Saturation - - Inhaled Oxygen Concentration - - Weight 74.8 kg (165 lb) 08/24/2021 2:14 PM EDT Height - - Body Mass [...] Progress Notes * Edith Villafuerte MD - 08/24/2021 2:13 PM EDT Transfusion Medicine Service Therapeutic Phlebotomy Procedure Type: Therapeutic Phlebotomy Requesting Physician: Pelon Tomlinson Date of Procedure: 08/24/2021 Treatment Pathway: Hemochromatosis/Iron Overload Program Frequency of Phlebotomy: Every 3 Weeks Criteria for Performance of Therapeutic Phlebotomy: Hemoglobin greater than 11 g/dL Pre-Collection Hemoglobin value: 13.9 g/dL Criteria for Therapeutic Phlebotomy Met? Yes Volume Drawn (mL): 500 Volume Replaced (mL): (Patient declined fluids) mL 0.9% normal saline Vital Signs: Blood Pressure: 128/66 mmHg Temperature: 36.4 ??C (97.6 ??F) degrees C Pulse: (!) 103 bpm Therapeutic Goal: Ferritin (ng/mL) less than: 100 Frequency of Ferritin Monitoring: Every 3 phlebotomy Ferritin Drawn Today? No Reaction: No Comments: PHYSICIAN ASSESSMENT AND PLAN: I have reviewed the procedure note and the patient medical record. 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 The current treatment regimen remains appropriate. Ms. Min asked about longer term access, such as a PICC line or port, since she is a difficult stick and lives far away from [facility] ([place]). She reports she has residual nerve damage (numbness along her 1st digit) from an attempted blood draw on the radial aspect of her wrist from about 1-2 weeks ago. I discussed her case with the vascular access team, and they did not have a good solution for her. Risks of central access far outweigh benefit of easier access for therapeutic phlebotomy. She plans to discuss her possible options with her PCP next week. Recent Labs 07/31/21 0800 07/27/21 1221 FERRITIN 678* [id number]* Shivani Hoffman DO 08/24/2021 ATTENDING MD ATTESTATION: I reviewed the clinical note and agree with the assessment and plan presented by Dr. Hoffman. Edith Villafuerte MD 08/24/2021 documented in this encounter Miscellaneous Notes * Addendum Note - Edith Villafuerte MD - 08/24/2021 5:05 PM EDTEncounter addended by: Edith Villafuerte MD on: 08/24/2021 5:05 PM Actions taken: Clinical Note Signed documented in this encounter Plan of Treatment Upcoming Encounters Date Type Department Care Team (Late st Contact Info) Description 12/03/2024 1:00 PM EDT Appointment H[place]ology [place] [address] 12/03/2024 2:00 PM EDT Office Visit Hematology [place] [address] Pelon Wisdom MD [facility] [place] [address] Oksana Payne APRN [facility] [place] [address] Scheduled Referrals Name Type Priority Associated Diagnoses Orde r Schedule Referral to Blood Donor Program/Apheresis Service Outpatient Referral Routine Hemochromatosis associated with compound heterozygous mutation in HFE gene Ordered: 08/15/2021 documented as of this encounter Visit Diagnoses Diagnosis Hemochromatosis associated with compound heterozygous mutation in HFE gene documented in this encounter Care Teams Personal Care Home Administrator Relationship Specialty Start Date End Date Che Sharpe PA [address] [place] [address] [place] [address] PCP - General Internal Medicine 04/20/20 documented as of this encounter
--- OUTSIDE RECORDS SUMMARY | 2024-01-03 01:05 | XMS_ITS | Encounter Summary ---
Author Organization [facility] [place] [address] Care Team Providers Care Drum Sander Name Role Phone Che Sharpe Primary Care Provider + Encounter Details Date Type Department Care Team (Late st Contact Info) Description 08/25/2021 Telephone Hematology [place] [phone] Mely Perez RN Social History Tobacco Use [...] Telephone Encounter - Mely Perez RN - 08/25/2021 11:48 AM EDT RN took a call from Andi at [facility] primary care office. Patient called them yesterday requesting a PICC line be placed so she can get therapeutic phlebotomy up there. This RN reinforced Dr. Tomlinson's refusal to order a PICC due to risk for infection with q3week phlebotomies. Andi verbalized understanding and confirmed that patient's PCP is in agreement with this. RN reassured Andi that Dr. Tomlinson would be consulted upon her return on Saturday and this RN will get back to Andi with plan. documented in this encounter Plan of Treatment Upcoming Encounters Date Type Department Care Team (Late st Contact Info) Description 12/03/2024 1:00 PM EDT Appointment Hematology [place] [address] 12/03/2024 2:00 PM EDT Office Visit Hematology [place] [address] Pelon Wisdom MD [facility] [address] [place] [address] Oksana Payne APRN [facility] [place] [address] documented as of this encounter Visit Diagnoses Not on filedocumented in this encounter Care Teams Drum Sander Relationship Specialty Start Date End Date Che Sharpe PA [address] [place] [address] [place] [address] PCP - General Internal Medicine 04/20/20 documented as of this encounter
--- OUTSIDE RECORDS SUMMARY | 2024-01-03 01:05 | XMS_ITS | Encounter Summary ---
Author Organization [facility] [place] [address] Care Team Providers Care Press Maintainer Name Role Phone Che Sharpe Primary Care Provider + Encounter Details Date Type Department Care Team (Late st Contact Info) Description 08/22/2021 Telephone Hematology [place] [phone] Mely Perez RN Social History Tobacco Use [...] place to sleep or slept in a fci (including now)? No 07/20/2021 Sex and Gender Information Value Date Recorded Sex Assigned at Not on file Gender Identity Not on file Sexual Orientation Not on file documented as of this encounter Miscellaneous Notes * Telephone Encounter - Mely Perez RN - 08/22/2021 11:37 AM EDT Images from the original note were not included. RN reviewed patient's request for one more try for therapeutic phlebotomy at [facility] with Dr. Tomlinson. She is in agreement with this request, but if this doesn't work, we will need to discussplan for patient to come to [facility] in [place]. Patient is in agreement with this plan. RN advised Emma to push extra fluids starting a few days prior to her appt, and also recommended using a warm compress the day of the draw. RN made contact with Norma at [facility] lab/infusion ([phone]) and reviewed above plan. Norma confirmed she would discuss with her Charge nurse and get back to this nurse. T/C: NORMA FROM [facility] RETURNED YOUR CALL Heather Durant Melissa M RN She just wanted to leave a message: She's waiting to hear back from one her nurses to try the phlebotomy again. ??She said once scheduled she will contact the patient directly. If you have more questions, norma can be reached at: [phone]. documented in this encounter Plan of Treatment Upcoming Encounters Date Type Department Care Team (Late st Contact Info) Description 12/03/2024 1:00 PM EDT Appointment Hematology [place] [address] 12/03/2024 2:00 PM EDT Office Visit Hematology [place] [address] Pelon Wisdom MD [facility] DR HEMATOLOGY [place] [address] Oksana Payne APRN [facility] DR [place]EMATOLOGY [place] [address] documented as of this encounter Visit Diagnoses Not on filedocumented in this encounter Care Teams Press Maintainer Relationship Specialty Start Date End Date Che Sharpe PA [address] [place] [address] [place] [address] PCP - General Internal Medicine 04/20/20 documented as of this encounter
--- OUTSIDE RECORDS SUMMARY | 2024-01-03 01:05 | XMS_ITS | Encounter Summary ---
Author Organization [facility] [place] [address] Care Team Providers Care Ship Self Defense System Mk1 Operator Name Role Phone Che Sharpe Primary Care Provider + Reason for Referral * Consultation (Routine) - Closed Specialty Diagnoses / Procedures Referred By Contac t Referred To Contact Diagnoses Hemochromatosis associated with compound heterozygous mutation in HFE gene Pelon Wisdom MD [facility] DR HEMATOLOGY [place] [address] [facility] [place] [address] Referral ID Status Reason Start Date Expiration Date V isits Requested Visits Authorized [id number] Closed Consult, Test & Treat 08/15/2021 08/15/2022 18 18 Encounter Details Date Type Department Care Team ([facility] st Contact Info) Description 08/15/2021 Orders Only Hematology [place] [phone] Pelon Wisdom MD [facility] DR HEMATOLOGY [place] [address] Hemochromatosis associated with compound heterozygous [...] PM EDT Appointment Hematology [place] [address] 12/03/2024 2:00 PM EDT Office Visit [place]ematology [place] [phone] Pelon Wisdom MD [facility] HEMATOLOGY [place] [address] Oksana Payne APRN [facility] HEMATOLOGY [place] [address] Scheduled Referrals Name Type Priority Associated Diagnoses Orde r Schedule Referral to Blood Donor Program/Apheresis Service Outpatient Referral Routine Hemochromatosis associated with compound heterozygous mutation in HFE gene Ordered: 08/15/2021 documented as of this encounter Visit Diagnoses Diagnosis Hemochromatosis associated with compound heterozygous mutation in HFE gene documented in this encounter Care Teams Ship Self Defense System Mk1 Operator Relationship Specialty Start Date End Date Che Sharpe PA [address] [place] [address] [place] [address] PCP - General Internal Medicine 04/20/20 documented as of this encounter
--- OUTSIDE RECORDS SUMMARY | 2024-01-03 01:05 | XMS_ITS | Encounter Summary ---
[place] [address] Care Team Providers Care Bow Stapler Name Role Phone Che Sharpe Primary Care Provider + Reason for Referral * Consultation (Routine) - Closed Specialty Diagnoses / Procedures Referred By Contac t Referred To Contact Hematology and Oncology Diagnoses Hemochromatosis, unspecified hemochromatosis type Che Sharpe PA [address] [place] [address] [place] [address] [facility] [address] [place] [address] Referral ID Status Reason Start Date Expiration Date V isits Requested Visits Authorized [id number] Closed Consult, Test & Treat 07/03/2021 07/03/2022 6 6 Encounter Details Date Type Department Care Team (Latest Contact Info) Description 07/03/2021 Transcribe Orders eDH Incoming Referrals [phone] Che Sharpe PA [address] [place] [address] [place] [address] Hemochromatosis, unspecified hemochromatosis type Social History Tobacco Use Types Packs/Day Years [...] PM EDT Appointment Hematology [place] [address] 12/03/2024 2:00 PM EDT Office Visit Hematology [place] [address] Pelon Wisdom MD [facility] DR [place] [address] Oksana aPyne APRN [facility] DR [place] [address] Scheduled Referrals Name Type Priority Associated Diagnoses Orde r Schedule Referral to Hematology and Oncology Outpatient Referral Routine Hemochromatosis, unspecified hemochromatosis type Ordered: 07/03/2021 documented as of this encounter Visit Diagnoses Diagnosis Hemochromatosis, unspecified hemochromatosis type documented in this encounter Care Teams Bow Stapler Relationship Specialty Start Date End Date Che Sharpe PA [address] [place] [address] [place] [address] PCP - General Internal Medicine 04/20/20 documented as of this encounter
--- OUTSIDE RECORDS SUMMARY | 2024-01-03 01:05 | XMS_ITS | Encounter Summary ---
Author Organization [facility] [place] [address] Care Team Providers Care Orthodontic Technician Assistant Name Role Phone Che Sharpe Primary Care Provider + Encounter Details Date Type Department Care Team (Late st Contact Info) Description 02/16/2021 Telephone [place] [address] Donald Benavides Social History Tobacco Use Types [...] * Telephone Encounter - Donald Benavides - 02/16/2021 11:41 AM EDT Inbound/Outbound: Outbound Spoke to Patient/Left Message: Left message Notes: Outbound call to patient to schedule motility lab testing from referral. Left message askingfor callback to schedule. Return calls can be handled by: Motility Lab Wire Stitcher Operator documented in this encounter Plan of Treatment Upcoming Encounters Date Type Department Care Team (Late st Contact Info) Description 12/03/2024 1:00 PM EDT Appointment Hematology [place] [address] 12/03/2024 2:00 PM EDT Office Visit [place]ematology [place] [address] Pelon Wisdom MD [facility] [place] [address] Oksana Payne APRN [facility] [place] [address] documented as of this encounter Visit Diagnoses Not on filedocumented in this encounter Care Teams Orthodontic Technician Assistant Relationship Specialty Start Date End Date Che Sharpe PA [address] [place] [address] [place] [address] PCP - General Internal Medicine 04/20/20 documented as of this encounter
--- OUTSIDE RECORDS SUMMARY | 2024-01-03 01:05 | XMS_ITS | Encounter Summary ---
Author Organization [facility] [place] [address] Care Team Providers Care Cattle Producers Name Role Phone Rosy Tavarez APRN Primary Care Provider Reason for Visit * Reason Comments Sexual Problem Encounter Details Date Type Department Care Team ([facility] st Contact Info) Description 11/15/2017 5:40 PM EDT Office [place] [address] Rosy Tavarez [facility] [place] [address] Low libido Social History Tobacco Use Types Packs/Day Years [...] Sign Reading Time Taken Comments Blood Pressure 100/56 11/15/2017 3:04 PM EDT Pulse 74 11/15/2017 3:04 PM EDT Temperature 36.6 ??C (97.9 ??F) 11/15/2017 3:04 PM ED T Respiratory Rate 18 11/15/2017 3:04 PM EDT Oxygen Saturation 98% 11/15/2017 3:04 PM EDT Inhaled Oxygen Concentration - - Weight 75 kg (165 lb 6.4 oz) 11/15/2017 3:04 PM EDT Height 166 cm (5' 5.35) 11/15/2017 3:04 PM EDT Body Mass Index 27.23 11/15/2017 3:04 PM EDT documented in this encounter Patient Instructions * Patient Instructions* Rosy Tavarez, STUDENT FINANCE ADVISOR - 11/15/2017 3:25 PM EDT Images from the original note were not included. Decreased Libido in Women: Care Instructions Your Care Instructions A decreased libido means you have less desire to have sex. It may be hard for you to get sexually excited or have an orgasm. This is a common problem for women. Many things can cause this problem. And for a lot of women, there is more than one cause. In some cases, a woman's sex life is affected by normal changes in her body. These include having ababy and menopause. This problem can also be caused by a medicine you take. Or your vagina could be dry. Or you might have a vaginal infection. And sometimes, there are issues between you and your partner that affect your sex drive. Many women can have a healthy sex drive again after the problem is found. Your doctor may do tests to see if you have a vaginal infection. He or she may ask you questions about your sex life. For treatment to work well, it is important to trust your doctor. Be honest about your feelings toward sex.Your sex partner may want to be involved with your treatment. If you take medicine for depression, ask your doctor about changing to a medicine that does not affect sexual desire. Follow-up care is a zamora part of your treatment and safety. Be sure to make and go to all appointments, and call your doctor if you are having problems. It's also a good idea to know your test resultsand keep a list of the medicines you take. How can you care for yourself at home? ?? Tell your doctor about all the medicines you take. This includes vitamins, supplements, and herbal remedies. ?? Use vaginal lubricant during sex. Examples are Astroglide, K-Y Jelly, and Wet Gel Lubricant. ?? Increase the time you and your partner spend touching each other before sex. This is called foreplay. ?? Before sex, take a warm bath. This can relax you and reduce stress or anxiety. ?? Enjoy other types of sexual activity, not just intercourse. ?? Be honest with your sex partner about what you enjoy during sex. Where can you learn more? Visit our health information library at http://[employer] Resourcesinfo. You can also view health information on [employer], your personal patient account. Log in or sign uptoday. Enter J925 in the search box to learn more about Decreased Libido in Women: Care Instructions. Current as of: January 25, 2017 Content Version: 11.7 ?? 1113-3947 [employer]. Care instructions adapted under license by [facility]. If you have questions about a medical condition or this instruction, always ask your healthcare professional. [employer] disclaims any warranty or liability for your use of this information. documented in this encounter Progress Notes * Rosy Tavarez APRN - 11/15/2017 5:40 PM EDT Subjective: Patient ID: Emma Min is a 37 y.o. female. HPI Emma is here with decreased libido. PMH of migraine, GERD, DM-2, anxiety, vertigo, and depression, here for follow-up of migraine and convulsive syncope. Doing well, got a job here in [place] which is what she wanted and starts Saturday. She and her boyfriend have broken up but remain friends and she is in a new relationship. She is having trouble with arousal and dryness and hoping thereis something she can try. She has used lubricant but she has been like this since having her children. Review of Systems Constitutional: Negative for activity change, appetite change, chills and fever. Genitourinary: Negative for dyspareunia, vaginal bleeding, vaginal discharge and vaginal pain. Objective: Physical Exam Constitutional: She appears well-developed and well-nourished. Psychiatric: She has a normal mood and affect. Her behavior is normal. Vitals reviewed. Assessment and Plan: Emma was seen today for sexual problem. After long discussion about psychological things to helpshe opted to try medication in addition to the psychological preparation. 30 of this 35 minute visit was face to face discussing the topic and different options for her. Diagnoses and all orders for this visit: Low libido - ospemifene (OSPHENA) 60 mg Tablet; Take 60 mg by mouth daily. documented in this encounter Plan of Treatment Upcoming Encounters Date Type Department Care Team (Late st Contact Info) Description 12/03/2024 1:00 PM EDT Appointment Hematology [place] [address] 12/03/2024 2:00 PM EDT Office Visit Hematology [place] [address] Pelon Wisdom MD [facility] DR [place] [address] Oksana Payne APRN [facility] DR [place] [address] documented as of this encounter Visit Diagnoses Diagnosis Low libido documented in this encounter Care Teams Cattle Producers Relationship Specialty Start Date End Date Rosy Tavarez APRN [facility] [place] [address] PCP - General General Internal Medicine 02/14/17 6/2 05/11 documented as of this encounter
--- OUTSIDE RECORDS SUMMARY | 2024-01-03 01:05 | XMS_ITS | Encounter Summary ---
[facility] [place] [address] Care Team Providers Care Manipulative Therapy Specialist Name Role Phone Rosy Tavarez GO Primary Care Provider [phone] Reason for Visit * Reason Onset Date Comments Medication Refill 02/05/2018 Encounter Details Date Type Department Care Team ([facility] st Contact Info) Description 02/05/2018 Ref[place] [address] Jackie Chow Social History Tobacco Use Types Packs/Day Years [...] encounter Miscellaneous Notes * Telephone Encounter - Valeria Gage V - 02/06/2018 11:40 AM EDT Patient calling requesting this to be filled michaela. * Telephone Encounter - Jackie Omalley - 02/05/2018 11:48 AM EDT Please remind every patient that prescription requests can take up to 72 business hours to process Medication Refill Request: Name of Medication: fludrocortisone (FLORINEF) 0.1 mg Tablet Dose as Prescribed: 1 tablet by mouth daily Prescriber: Dr. Saige Costa, Neuro @ Pharmacy Name & Location [[facility]] ?? Pt is requesting to have Rosy Tavarez take over this prescription as she is no longer being seen inNeuro. She states that this medication is working to help with her low BP and vertigo. She is requesting to get this prescription sent to the Pharmacy by tomorrow afternoon if possible. Please call back with any questions or to confirm that it has been sent. [phone] documented in this encounter Plan of Treatment Upcoming Encounters Date Type Department Care Team (Late st Contact Info) Description 12/03/2024 1:00 PM EDT Appointment Hematology [place] [address] 12/03/2024 2:00 PM EDT Office Visit Hematology [place] [address] Pelon Wisdom MD [facility] [address] [place] [address] Oksana Payne APRN [facility] [place] [address] documented as of this encounter Visit Diagnoses Not on filedocumented in this encounter Care Teams Manipulative Therapy Specialist Relationship Specialty Start Date End Date Rosy Tavarez APRN [facility] [place] [address] PCP - General General Internal Medicine 02/14/1709/21 documented as of this encounter
--- OUTSIDE RECORDS SUMMARY | 2024-01-03 01:05 | XMS_ITS | Encounter Summary ---
Author Organization [facility] [place] [address] Care Team Providers Care Concrete Engineering Technician Name Role Phone Che Sharpe Primary Care Provider + Reason for Visit * Reason Comments Procedure * Consultation (Routine) - Closed Specialty Diagnoses / Procedures Referred By Contlaura t Referred To Contact Diagnoses Hemochromatosis associated with compound heterozygous mutation in HFE gene Pelon Wisdom MD [facility] [address] [place] [address] [facility] [place] [address] Referral ID Status Reason Start Date Expiration Date V isits Requested Visits Authorized [id number] Closed Consult, Test & Treat 08/15/2021 08/15/2022 18 18 Encounter Details Date Type Department Care Team (Latest Contact Info) Description 12/22/2021 11:00 AM EDT - 12/22/2021 11:59 PM EDT Hospital Encounter [place] [address] Hemochromatosis, unspecified hemochromatosis type Discharge [...] place to sleep or slept in a penitentiary (including now)? No 07/20/2021 Sex and Gender Information Value Date Recorded Sex Assigned at Not on file Gender Identity Not on file Sexual Orientation Not on file documented as of this encounter Last Filed Vital Signs Vital Sign Reading Time Taken Comments Blood Pressure 137/82 12/22/2021 11:00 AM EDT Pulse 100 12/22/2021 11:00 AM EDT Temperature 36.6 ??C (97.9 ??F) 12/22/2021 1 1:00 AM EDT Respiratory Rate - - Oxygen Saturation - - Inhaled Oxygen Concentration - - Weight 74.8 kg (164 lb 14.5 oz) 022 11:00 AM EDT Height - - Body [...] Progress Notes * Kolton Estrella MD - 12/22/2021 2:36 PM EDTSummary: TP Note Transfusion Medicine Service Therapeutic Phlebotomy Procedure Type: Therapeutic Phlebotomy Requesting Physician: Pelon Tomlinson Date of Procedure: 12/22/2021 Treatment Pathway: Hemochromatosis/Iron Overload Program Frequency of Phlebotomy: Every 3 Weeks Criteria for Performance of Therapeutic Phlebotomy: Hemoglobin greater than 11 g/dL Pre-Collection Hemoglobin value: 12.8 g/dL Criteria for Therapeutic Phlebotomy Met? Yes Volume Drawn (mL): 0 Volume Replaced (mL): 0 mL 0.9% normal saline Vital Signs: Blood Pressure: 137/82 mmHg Temperature: 36.6 ??C (97.9 ??F) degrees C Pulse: 100 bpm Therapeutic Goal: Ferritin (ng/mL) less than: 100 Frequency of Ferritin Monitoring: Every phlebotomy Ferritin Drawn Today? No Reaction: Comments: Unsuccessful IV access, unable to complete TP, patient returning on saturday to try again PHYSICIAN ASSESSMENT AND PLAN: I have reviewed the procedure note and the patient medical record. Unfortunately after several attempts and assistance from the IV team, we were unsuccessful to obtain access for the procedure today.She will be returning this coming Saturday12/26/2021 to attempt therapeutic phlebotomy, where she will also have a ferritin drawn, as this will be her third procedure since her last draw. Based on her upcoming value we can adjust frequency of ferritin monitoring on her future orders (should be every 3 procedures if between 200-500). 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 Recent Labs 10/05/21 1152 07/31/21 0800 07/27/21 1221 FERRITIN 316* 678* 798* Ana Renee, DO 12/22/2021 ATTENDING REVIEW: I have reviewed the procedure note and the patient medical record. This patient requires on-going therapeutic phlebotomy, however, today's procedure was unsuccessful due to access issues.. I agree with the plan as outlined by . KOLTON ESTRELLA MD 12/22/2021 documented in this encounter Miscellaneous Notes * Addendum Note - Kolton Estrella MD - 12/22/2021 4:19 PM EDT Encounter addended by: Kolton Estrella MD on: 12/22/2021 4:19 PM Actions taken: Clinical Note Signed documented in this encounter Plan of Treatment Upcoming Encounters Date Type Department Care Team (Late st Contact Info) Description 12/03/2024 1:00 PM EDT Appointment Hematology and Oncology at [place] [phone] 12/03/2024 2:00 PM EDT Office Visit Hematology [place] [address] Pelon Wisdom MD [facility] [address] [place] [address] Oksana Payne APRN [facility] [address] [place] [address] documented as of this encounter Visit Diagnoses Diagnosis Hemochromatosis, unspecified hemochromatosis type documented in this encounter Care Teams Concrete Engineering Technician Relationship Specialty Start Date End Date Che Sharpe PA [address] [place] [address] [place] [address] PCP - General Internal Medicine 04/20/20 documented as of this encounter
--- OUTSIDE RECORDS SUMMARY | 2024-01-03 01:05 | XMS_ITS | Encounter Summary ---
Author Organization [facility] [place] [address] Care Team Providers Care Stitchdown Thread Laster Name Role Phone Che Sharpe Primary Care Provider + Encounter Details Date Type Department Care Team (Late st Contact Info) Description 08/15/2021 Telephone Hematology [place] [phone] Mely Perez RN Social History Tobacco Use [...] Telephone Encounter - Mely Perez RN - 08/15/2021 12:14 PM EDT T/C: RN attempted to make contact with Emma. Left a detailed message on her voicemail with plan.Encouraged patient to contact this RN with any questions or concerns. T/C: RN made contact with Norma at [facility] and reviewed the plan. Norma confirmed understanding, and agreed to up date Mary. RN discussed with Dr. Tomlinson. Due to risk for infection with PICC line, Dr. Tomlinson would like patient to come to [facility] - Blood Donor Program for her therapeutic phlebotomies. Referral entered. T/C 08/14/21: This RN took a call from KYLAH Hernandez at [facility]. She saw patient last week and was unable after 2 attempts to perform successful phlebotomy. They brought the patient back yesterday (08/14) with ultrasound and were still unable to perform successful phlebotomy. She reports able to get 90ml 08/14. They are asking for recommendations, but have also volunteered to have PICC placed and draw off that for her phlebotomies. documented in this encounter Plan of Treatment Upcoming Encounters Date Type Department Care Team (Late st Contact Info) Description 12/03/2024 1:00 PM EDT Appointment Hematology [place] [address] 12/03/2024 2:00 PM EDT Office Visit Hematology [place] [address] Pelon Wisdom MD [facility] DR HEMATOLOGY [place] [address] Oksana Payne APRN [facility] DR HEMATOLOGY [place] [address] documented as of this encounter Visit Diagnoses Not on filedocumented in this encounter Care Teams Stitchdown Thread Laster Relationship Specialty Start Date End Date Che Sharpe PA [address] [place] [address] [place] [address] PCP - General Internal Medicine 04/20/20 documented as of this encounter
--- OUTSIDE RECORDS SUMMARY | 2024-01-03 01:05 | XMS_ITS | Encounter Summary ---
Author Organization [facility] [place] [address] Care Team Providers Care Is Analyst Name Role Phone Che Sharpe Primary Care Provider + Encounter Details Date Type Department Care Team (Late st Contact Info) Description 08/15/2021 Telephone Hematology [place] [phone] Mely Perez RN Social History Tobacco Use [...] Encounter - Mely Perez RN - 08/15/2021 2:50 PM EDT T/C: RN attempted to make contact to discuss further. RN left voicemail message explaining Dr. Tomlinson's preference for phlebotomy appts here at [facility] every 3 weeks. RN reassured patient that f/ucontact would be made to discuss further. ----- Message from Mayi Moreau sent at 08/15/2021 1:52 PM EDT ----- Regarding: Bushra patient concern with phlebotomies Hello, Patient has a question about her coming about an alternate plan for phlebotomies. She lives at the [facility] so coming all the way here is not feasible. Please call her back after 3pm. Thanks! [phone] documented in this encounter Plan of Treatment Upcoming Encounters Date Type Department Care Team (Late st Contact Info) Description 12/03/2024 1:00 PM EDT Appointment H[place]ology [place] [address] 12/03/2024 2:00 PM EDT Office Visit Hematology [place] [phone] Pelon Wisdom MD [facility] [place] [address] Oksana Payne APRN [facility] [place] [address] documented as of this encounter Visit Diagnoses Not on filedocumented in this encounter Care Teams Is Analyst Relationship Specialty Start Date End Date Che Sharpe PA [address] [place] [address] [place] [address] PCP - General Internal Medicine 04/20/20 documented as of this encounter
--- OUTSIDE RECORDS SUMMARY | 2024-01-03 01:05 | XMS_ITS | Encounter Summary ---
Author Organization [facility] [place] [address] Care Team Providers Care Manager Pathology Name Role Phone Rosy Tavarez CARGO TANK MECHANIC Primary Care Provider [phone] Encounter Details Date Type Department Care Team (Late Contact Info) Description 11/13/2017 Orders Only [place] [phone] Pricila Andrade [facility] [place] [address] Social History Tobacco Use Types Packs/Day Years [...] PM EDT Appointment Hematology [place] [phone] 12/03/2024 2:00 PM EDT Office Visit Hematology [place] [address] Pelon Wisdom MD [facility] [place] [address] Oksana Payne APRN [facility] [place] [address] documented as of this encounter Procedures Procedure Name Priority Date/Time Associated Diagnosis Comments HEPATITIS B SURFACE ANTIBODY Routine 11/13/2017 3:32 PM EDT documented in this encounter Results * Hepatitis B Surface Antibody (11/13/2017 3:32 PM EDT) Hepatitis B Surface Antibody, Quantitative <3.5 IU/L [facility] Comment: HepB Surface Ab Quant: Unvaccinated: < 8.5 IU/L Vaccinated: > 11.5 IU/L Hepatitis B Surface Antibody Negative [facility] Comment: Patient is presumed to be not vaccinated or immune to HBV infection. Expected Results: Vaccinated: Positive Unvaccinated: Negative Blood specimen (specimen) Venous Draw / Unknown 11/13/2017 3:32 PM EDT 11/13/2017 3:39 PM EDT Narrative Resulting Agency Comment Spec In Lab Pricila Andrade CARGO TANK MECHANIC CHEMISTRY ORDERABLES [facility] [place] [address] documented in this encounter Visit Diagnoses Not on filedocumented in this encounter Care Teams Manager Pathology Relationship Specialty Start Date End Date Rosy Tavarez APRN [facility] [place] [address] PCP - General General Internal Medicine 02/14/17 6/2 05/11 documented as of this encounter
--- OUTSIDE RECORDS SUMMARY | 2024-01-03 01:05 | XMS_ITS | Encounter Summary ---
Author Organization [facility] [place] [address] Care Team Providers Care Moto Mix Operator Name Role Phone Che Sharpe Primary Care Provider + Encounter Details Date Type Department Care Team ([facility] st Contact Info) Description 02/16/2021 Telephone [place] [phone] Carolyn Beltre Social History Tobacco Use Types Packs/Day Years [...] encounter Miscellaneous Notes * Telephone Encounter - Carolyn Beltre - 2021 2:58 PM EST Left third message for patient to contact the office for scheduling. MIGUEL Zelaya would like the patient scheduled for an HBT, GES and EGD/[place]. A letter has been sent asking the patient to contact the office for scheduling. * Telephone Encounter - Carolyn Beltre - 02/22/2021 12:29 PM EDT Left second message for patient to contact the office for scheduling. MIGUEL Zelaya would like the patient scheduled for an HBT, GES and EGD/[place]. * Telephone Encounter - Carolyn Beltre - 02/16/2021 10:01 AM EDT Left message for patient to contact the office for scheduling. MIGUEL Zelaya would like the patient scheduled for an HBT, GES and EGD/[place]. documented in this encounter Plan of Treatment Upcoming Encounters Date Type Department Care Team (Late st Contact Info) Description 12/03/2024 1:00 PM EDT Appointment H[place]ology [place] [address] 12/03/2024 2:00 PM EDT Office Visit Hematology [place] [address] Pelon Wisdom MD [facility] DR [place] [address] Oksana Payne APRN [facility] [address] [place] [address] documented as of this encounter Visit Diagnoses Not on filedocumented in this encounter Care Teams Moto Mix Operator Relationship Specialty Start Date End Date Che Sharpe PA [address] [place] [address] [place] [address] PCP - General Internal Medicine 04/20/20 documented as of this encounter
--- OUTSIDE RECORDS SUMMARY | 2024-01-03 01:05 | XMS_ITS | Encounter Summary ---
Author Organization [facility] [place] [address] Care Team Providers Care Leather Scrubber Name Role Phone Che Sharpe Primary Care Provider + Reason for Visit * Reason Comments Procedure * Consultation (Routine) - Closed Specialty Diagnoses / Procedures Referred By Contlaura t Referred To Contact Diagnoses Hemochromatosis associated with compound heterozygous mutation in HFE gene Pelon Wisdom MD [facility] DR HEMATOLOGY [place] [address] [facility] [place] [address] Referral ID Status Reason Start Date Expiration Date V isits Requested Visits Authorized [id number] Closed Consult, Test & Treat 08/15/2021 08/15/2022 18 18 Encounter Details Date Type Department Care Team (Latest Contact Info) Description 10/05/2021 10:54 AM EDT - 10/05/2021 11:59 PM EDT Hospital Encounter [place] [address] Hereditary hemochromatosis Discharge Disposition: Home Social History [...] Sign Reading Time Taken Comments Blood Pressure 127/60 10/05/2021 11:31 AM EDT Pulse 72 10/05/2021 11:31 AM EDT Temperature 36.6 ??C (97.8 ??F) 10/05/2021 1 1:31 AM EDT Respiratory Rate - - Oxygen Saturation - - Inhaled Oxygen Concentration - - Weight 74.8 kg (164 lb 14.5 oz) 022 11:31 AM EDT Height - - Body Mass [...] as of this encounter Progress Notes * Shivani Hoffman DO - 10/05/2021 10:55 AM EDT Transfusion Medicine Service Therapeutic Phlebotomy Procedure Type: Therapeutic Phlebotomy Requesting Physician: Pelon Tomlinson Date of Procedure: 10/05/2021 Treatment Pathway: Hemochromatosis/Iron Overload Program Frequency of Phlebotomy: Every 3 Weeks Criteria for Performance of Therapeutic Phlebotomy: Hemoglobin greater than 11 g/dL Pre-Collection Hemoglobin value: 12.1 g/dL Criteria for Therapeutic Phlebotomy Met? Yes Volume Drawn (mL): 500 Volume Replaced (mL): 500 mL 0.9% normal saline Vital Signs: Blood Pressure: 127/60 mmHg Temperature: 36.6 ??C (97.8 ??F) degrees C Pulse: 72 bpm Therapeutic Goal: Ferritin (ng/mL) less than: 100 Frequency of Ferritin Monitoring: Every 3 phlebotomy Ferritin Drawn Today? Yes Reaction: Yes Slight nausea, leaned back, ice pack to neck, and cold drink resolved feeling. Comments: IV fluids finished, IV removed PHYSICIAN ASSESSMENT AND PLAN: I have reviewed the procedure note and the patient medical record. 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 The current treatment regimen remains appropriate. Recent Labs 10/05/21 1152 07/31/21 0800 07/27/21 1221 FERRITIN 316* 678* 798* Shivani Hoffman DO 10/05/2021 Associated attestation - Ceci Kelly MD - 10/05/2021 5:28 PM EDT ATTENDING MD ATTESTATION: I reviewed the clinical note and agree with the assessment and plan presented by Dr. Hoffman. Ceci Kelly MD 10/05/2021 documented in this encounter Miscellaneous Notes * Addendum Note - Ceci Kelly MD - 10/05/2021 5:29 PM EDTEncounter addended by: Ceci Kelly MD on: 10/05/2021 5:29 PM Actions taken: Cosign clinical note with attestation documented in this encounter Plan of Treatment Upcoming Encounters Date Type Department Care Team (Late st Contact Info) Description 12/03/2024 1:00 PM EDT Appointment [place] [address] 12/03/2024 2:00 PM EDT Office Visit Hematology [place] [address] Pelon Wisdom MD [facility] H[place]ATOLOGY [place] [address] Oksana Payne APRN [facility] HEMATOLOGY [place] [address] documented as of this encounter Procedures Procedure Name Priority Date/Time Associated Diagnosis Comments HC FERRITIN, SERUM Routine 10/05/2021 11 :52 AM EDT documented in this encounter Results * (ABNORMAL) Ferritin (10/05/2021 11:52 AM EDT) Ferritin 316(H) 15 - 150 ng/mL [facility] Comment: Pediatric reference ranges not verified at [facility], interpret with caution. Reference ranges for females greater than 50 years of age approach values for men, i.e., 30-400 ng/mL. Blood 10/05/2021 11:5 2 AM EDT 10/05/2021 12:02 PM EDT Narrative Resulting Agency Comment Spec In Lab Ceci Kelly MD CHEMISTRY ORDERABLES [facility] [place] [address] documented in this encounter Visit Diagnoses Diagnosis Hereditary hemochromatosis documented in this encounter Care Teams Leather Scrubber Relationship Specialty Start Date End Date Che Sharpe PA [address] [place] [address] [place] [address] PCP - General Internal Medicine 04/20/20 documented as of this encounter
--- OUTSIDE RECORDS SUMMARY | 2024-01-03 01:05 | XMS_ITS | Encounter Summary ---
Author Organization [facility] [place] [address] Care Team Providers Care Slab Depiler Operator Name Role Phone Che Sharpe Primary Care Provider + Encounter Details Date Type Department Care Team (Late st Contact Info) Description 08/29/2021 Telephone Hematology [place] [phone] Mely Perez RN Social History Tobacco Use [...] Telephone Encounter - Mely Perez RN - 08/29/2021 11:18 AM EDT RN discussed patient's request for PICC line, and plan of care with Dr. Tomlinson. Plan as of now looks as follows: Therapeutic Phlebotomy q3-4 weeks until Ferritin below 100. Then transition to maintenance scheduleof q4-[address] Tomlinson is not going to order PICC placement. Patient's last successful phlebotomy done at [facility] on 08/24/21, due for next between 09/14/21-09/21/21. T/C: RN made contact with Emma and reviewed the above information/plan. Emma expressed frustration stating Sherin Butler put the idea in my head for the possibility of a PICC line or Mediport. RN asked Emma to reach out to [facility] and schedule another visit for end of August first september. This RNwill discuss mediport option with Dr. Tomlinson and will contact Emma with update. Emma verbalized understanding and agreement. documented in this encounter Plan of Treatment Upcoming Encounters Date Type Department Care Team (Late st Contact Info) Description 12/03/2024 1:00 PM EDT Appointment Hematology [place] [address] 12/03/2024 2:00 PM EDT Office Visit Hematology [place] [address] Pelon Wisdom MD [facility] [place] [address] Oksana Payne APRN [facility] [place] [address] documented as of this encounter Visit Diagnoses Not on filedocumented in this encounter Care Teams Slab Depiler Operator Relationship Specialty Start Date End Date Che Sharpe PA [address] [place] [address] [place] [address] PCP - General Internal Medicine 04/20/20 documented as of this encounter
--- OUTSIDE RECORDS SUMMARY | 2024-01-03 01:05 | XMS_ITS | Encounter Summary ---
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 No 07/20/2021 Sex and Gender Information Value Date Recorded Sex Assigned at Not on file Gender Identity Not on file Sexual Orientation Not on file documented as of this encounter Plan of Treatment Upcoming Encounters Date Type Department Care Team (Late st Contact Info) Description 12/03/2024 1:00 PM EDT Appointment Hematology [place] [address] 12/03/2024 2:00 PM EDT Office Visit Hematology [place] [address] Pelon Wisdom MD [facility] [address] [place] [address] Oksana Payne APRN [facility] [address] [place] [address] Scheduled Orders Name Type Priority Associated Diagnoses Orde r Schedule Lab Use Only, Fax Request Lab Routine Type 2 diabetes mellitus without complication, unspecified whether mcc insulin use Expected: 12/01/2021 (Approximate), Expires: 12/01/2022 documented as of this encounter Results * (ABNORMAL) Basic Metabolic Panel (non-fasting) (12/01/2021 11:02 AM EDT) Glucose 135 65 - 199 mg/dL [facility] Comment:Diabetes: >=200 mg/d L plus symptoms Blood Urea Nitrogen 7(L) 8 - 18 mg/dL [facility] Creatinine 0.70 0.70 - 1.20 mg/dL [facility] Sodium 140 135 - 145 mmol/L [facility] Potassium 3.6 3.5 - 5.0 mmol/L [facility] Comment: Please note: ??Patients with WBC >100,000 may have falsely elevated Potassium levels. ??For accurate Potassium quantification in these patients send serum separator tube (gold top) for subsequent determinations. ??Contact the Clinical Chemistry Laboratory if there are any questions. Chloride 106 98 - 107 mmol/L [facility] Carbon Dioxide 24 22 - 31 mmol/L [facility] Anion Gap 10 5 - 15 mmol/L [facility] Calcium 8.8 8.5 - 10.5 mg/dL [facility] Est Glomerular Filtration Rate 112 >=60 mL/min/1. 73 m?? [facility] Comment: This patient's estimated GFR [...] Spec In Lab Che MACKEY CHEMISTRY ORDERA BLES [facility] [place] [address] * (ABNORMAL) Hemoglobin A1c (12/01/2021 11:02 AM EDT) Hemoglobin A1c 6.3(H) 4.3 - 5.6 % [facility] Comment: Reference Range: 4.3 - [...] Mellitus, Diabetes Care 2013; 36: Suppl. 1, U08-54 Estimated Average Glucose 135 mg/dL [facility] Comment: eAG equivalents for HbA1c [...] into estimated average glucose values. ??Diabetes Care 2008:31(8):6388-0473. Blood 12/01/2021 11:0 2 AM EDT 12/01/2021 11:20 AM EDT Narrative Resulting Agency Comment Spec In Lab Che MACKEY CHEMISTRY MYCHAL VELAZQUEZ [facility] [place] [address] * Lipid Panel (No Reflex) (12/01/2021 11:02 AM EDT) Cholesterol, Total 193 mg/dL Shabana [facility] Comment: Lower Risk: <200 mg/dL Average Risk: 200-239 mg/dL Higher Risk: >rq=827 mg/dL Triglyceride 159 mg/dL [facility] Comment: Average Risk/Lower Risk: <150 mg/dL Borderline High Risk: 150-199 mg/dL High Risk: 200-499 mg/dL Very High Risk: >jy=280 mg/dL HDL Cholesterol 34 mg/dL [facility] Comment: Males: ?? Higher Risk: <40 mg/dL Females: ?? Higher Risk: <50 mg/dL LDL Cholesterol 127 mg/dL [facility] Comment: Lowest Risk: <100 mg/dL Lower Risk: 100-129 mg/dL Borderline High Risk: 130-159 mg/dL High Risk: 160-189 mg/dL Very High Risk: >fi=124 mg/dL Cholesterol/HDL Ratio 5.7 ratio [facility] Lipid Interpretation See Note [facility] Comment: Lipid management should be guided by a patient? s ASCVD risk, goals and preferences. ACC/AHA Guidelines recommend high intensity statin if clinical ASCVD or LDL greater than or equal to 190 mg/dL. http://Dynamic Signal.GameMaki/ADF-KJZ-Igcnpgcow Adults aged 40-75 with LDL 70-189 mg/dL should have their 10 year ASCVD risk estimated with the ACC/AHA ASCVD risk conference coordinator http://tools.acc.org/BTYZQ-Znag-Bdogijdwy/ Statin should be discussed if risk greater [...] Spec In Lab Che MACKEY CHEMISTRY ORDERA PORSCHES [facility] [place] [address] documented in this encounter Visit Diagnoses Diagnosis Type 2 diabetes mellitus without complication, unspecified whether mcc insulin use documented in this encounter Care Teams Cost Consultant Relationship Specialty Start Date End Date Che Sharpe PA [address] [place] [address] [place] [address] PCP - General Internal Medicine 04/20/20 documented as of this encounter
--- OUTSIDE RECORDS SUMMARY | 2024-01-03 01:05 | XMS_ITS | Encounter Summary ---
Author Organization [facility] [place] [address] Care Team Providers Care Pulp Mixer Name Role Phone Rosy Tavarez APRN Primary Care Provider Reason for Visit * Reason Onset Date Comments Medication Refill 11/11/2017 Encounter Details Date Type Department Care Team (Late st Contact Info) Description 11/11/2017 Refill [place] [address] Amanda Field Social History Tobacco Use Types Packs/Day Years [...] encounter Miscellaneous Notes * Telephone Encounter - Amanda Field - 11/11/2017 12:53 PM EDT Please remind every patient that prescription requests can take up to 72 business hours to process Medication Refill Request: Name of Medication: acyclovir (ZOVIRAX) 200 mg Capsule Dose as Prescribed: 200 mg capsules Prescriber: Rosy Tavarez APRN Pharmacy Name & Location [Formerly [facility]] ?? documented in this encounter Plan of Treatment Upcoming Encounters Date Type Department Care Team (Late Contact Info) Description 12/03/2024 1:00 PM EDT Appointment Hematology [place] [address] 12/03/2024 2:00 PM EDT Office Visit Hematology [place] [address] Pelon Wisdom MD [facility] [address] [place] [address] Oksana Payne APRN [facility] [address] [place] [address] documented as of this encounter Visit Diagnoses Not on filedocumented in this encounter Care Teams Pulp Mixer Relationship Specialty Start Date End Date Rosy Tavarez APRN [facility] [place] [address] PCP - General General Internal Medicine 02/14/17 6/2 05/11 documented as of this encounter
--- OUTSIDE RECORDS SUMMARY | 2024-01-03 01:06 | XMS_ITS | Encounter Summary ---
Author Organization [facility] [place] [address] Care Team Providers Care Metal Grinder Name Role Phone Rosy Tavarez APRN Primary Care Provider Encounter Details Date Type Department Care Team (Late Contact Info) Description 09/04/2017 Orders [place] [phone] [facility] GENERAL [place] [address] Vitamin D deficiency Social History Tobacco Use Types Packs/Day Years [...] PM EDT Appointment Hematology [place] [phone] 12/03/2024 2:00 PM EDT Office Visit Hematology [place] [address] [facility] [address] HEMATOLOGY [place] [address] [facility] HEMATOLOGY [place] [address] documented as of this encounter Visit Diagnoses Diagnosis Vitamin D deficiency Unspecified vitamin D deficiency documented in this encounter Care Teams Metal Grinder Relationship Specialty Start Date End Date Rosy Tavarez APRN [facility] GENER[facility] [place] [address] PCP - General General Internal Medicine 02/14/17/05/11 documented as of this encounter
--- OUTSIDE RECORDS SUMMARY | 2024-01-03 01:06 | XMS_ITS | Encounter Summary ---
Author Organization [facility] [place] [address] Care Team Providers Care Doula Name Role Phone Rosy Tavarez APRN Primary Care Provider Reason for Visit * Reason Comments Annual Exam due for a pap smear, questions about cholesterol/lab work Encounter Details Date Type Department Care Team ([facility] st Contact Info) Description 05/16/2017 4:00 PM EST Office Visit [place] [phone] Rosy Tavarez, TRAFFIC SURVEY TECHNICIAN [facility] [place] [address] Preventative health care Social History Tobacco Use Types Packs/Day Years [...] Sign Reading Time Taken Comments Blood Pressure 138/81 05/16/2017 3:59 PM EST Pulse 93 05/16/2017 3:59 PM EST Temperature 36.7 ??C (98.1 ??F) 05/16/2017 3:59 PM ES T Respiratory Rate 16 05/16/2017 3:59 PM EST Oxygen Saturation 98% 05/16/2017 3:59 PM EST Inhaled Oxygen Concentration - - Weight 85 kg (187 lb 6.4 oz) 05/16/2017 3:59 PM EST Height 165.7 cm (5' 5.24) 05/16/2017 3:59 PM ES T Body Mass Index 30.96 05/16/2017 3:59 PM EST documented in this encounter Patient Instructions * Patient Instructions* Rosy Tavarez, TRAFFIC SURVEY TECHNICIAN - 05/16/2017 4:30 PM EST Images from the original note were not included. Well Visit, Ages 18 to 50: Care Instructions Your Care Instructions Physical exams can help you stay healthy. Your doctor has checked your overall health and may have suggested ways to take good care of yourself. He or she also may have recommended tests. At home, you can help prevent illness with healthy eating, regular exercise, and other steps. Follow-up care is a zamora part of your treatment and safety. Be sure to make and go to all appointments, and call your doctor if you are having problems. It's also a good idea to know your test resultsand keep a list of the medicines you take. How can you care for yourself at home? ?? Reach and stay at a healthy weight. This will lower your risk for many problems, such as obesity, diabetes, heart disease, and high blood pressure. ?? Get at least 30 minutes of physical activity on most days of the week. Walking is a good choice.You also may want to do other activities, such as running, swimming, cycling, or playing tennis or team sports. Discuss any changes in your exercise program with your doctor. ?? Do not smoke or allow others to smoke around you. If you need help quitting, talk to your doctorabout stop-smoking programs and medicines. These can increase your chances of quitting for good. ?? Talk to your doctor about whether you have any risk factors for sexually transmitted infections (STIs). Having one sex partner (who does not have STIs and does not have sex with anyone else) is a good way to avoid these infections. ?? Use control if you do not want to have children at this time. Talk with your doctor about the choices available and what might be best for you. ?? Protect your skin from too much sun. When you're outdoors from 10 a.m. to 4 p.m., stay in the shade or cover up with clothing and a hat with a wide brim. Wear sunglasses that block UV rays. Even when it's cloudy, put broad-spectrum sunscreen (SPF 30 or higher) on any exposed skin. ?? See a dentist one or two times a year for checkups and to have your teeth cleaned. ?? Wear a seat belt in the car. ?? Drink alcohol in moderation, if at all. That means no more than 2 drinks a day for men and 1 drink a day for women. Follow your doctor's advice about when to have certain tests. These tests can spot problems early. For everyone ?? Cholesterol. Have the fat (cholesterol) in your blood tested after age 20. Your doctor will tellyou how often to have this done based on your age, family history, or other things that can increase your risk for heart disease. ?? Blood pressure. Have your blood pressure checked during a routine doctor visit. Your doctor willtell you how often to check your blood pressure based on your age, your blood pressure results, andother factors. ?? Vision. Talk with your doctor about how often to have a glaucoma test. ?? Diabetes. Ask your doctor whether you should have tests for diabetes. ?? Colon cancer. Have a test for colon cancer at age 50. You may have one of several tests. If you are younger than 50, you may need a test earlier if you have any risk factors. Risk factors include whether you already had a precancerous polyp removed from your colon or whether your parent, brother, sister, or child has had colon cancer. For women ?? Breast exam and mammogram. Talk to your doctor about when you should have a clinical breast examand a mammogram. Medical experts differ on whether and how often women under 50 should have these tests. Your doctor can help you decide what is right for you. ?? Pap test and pelvic exam. Begin Pap tests at age 21. A Pap test is the best way to find cervicalcancer. The test often is part of a pelvic exam. Ask how often to have this test. ?? Tests for sexually transmitted infections (STIs). Ask whether you should have tests for STIs. You may be at risk if you have sex with more than one person, especially if your partners do not wear condoms. For men ?? Tests for sexually transmitted infections (STIs). Ask whether you should have tests for STIs. You may be at risk if you have sex with more than one person, especially if you do not wear a condom. ?? Testicular cancer exam. Ask your doctor whether you should check your testicles regularly. ?? Prostate exam. Talk to your doctor about whether you should have a blood test (called a PSA test) for prostate cancer. Experts differ on whether and when men should have this test. Some experts suggest it if you are older than 45 and are -C[place] or have a father or brother who got prostate cancer when he was younger than 65. When should you call for help? Watch closely for changes in your health, and be sure to contact your doctor if you have any problems or symptoms that concern you. Where can you learn more? Visit our health information library at http://BitWave/QX Corporationo. You can also view health information on GreenWatt, your personal patient account. Log in or sign uptoday. Enter P072 in the search box to learn more about Well Visit, Ages 18 to 50: Care Instructions. Current as of: August 31, 2016 Content Version: 11.4 ?? [id number] RunAlong. Care instructions adapted under license by [facility]. If you have questions about a medical condition or this instruction, always ask your healthcare professional. [employer]Along disclaims any warranty or liability for your use of this information. documented in this encounter Progress Notes * Rosy Tavarez APRN - 05/16/2017 4:00 PM EST Subjective: Patient ID: Emma Min is a 37 y.o. female. REMBERTO Carter is here for a comprehensive medical exam. She moved from [place] and moved in with her boyfriend. She has two daughters age 11 and 13 and they all get along well, both have struggled with adjustment to school. 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 She had previously been healthy until diagnosis of DM2 and allergies to many medications. She saw endocrine today and starting Victoza. Did not tolerate Metformin. Gerd - takes Ranitidine. Has nausea and diarrhea almost daily so change. Depression - off and on but allergic to all medications that were tried. She does not recall the names of any of them, records have not been sent. Seasonal allergies, also Lactose and Latex - takes Mahsa as needed. Migraine headaches, sometimes daily - takes aleve rotates from right side of head to left side of head. Walking for exercise and now is going to go to a fitness center. . Social, medical and family history updated. Review of Systems Constitutional: Negative for activity change, appetite change, chills, diaphoresis, fatigue, fever and unexpected weight change. HENT: Negative for congestion, rhinorrhea, sore throat and trouble swallowing. Eyes: Negative for visual disturbance. Respiratory: Negative for cough and shortness of breath. Cardiovascular: Negative for chest pain and palpitations. Gastrointestinal: Positive for diarrhea. Negative for abdominal pain, constipation, nausea and vomiting. Genitourinary: Negative for difficulty urinating and dysuria. Musculoskeletal: Negative for arthralgias. Skin: Negative for rash. Neurological: Positive for headaches. Psychiatric/Behavioral: Negative for dysphoric mood and sleep disturbance. The patient is not nervous/anxious. Objective: Physical Exam Constitutional: She is oriented to person, place, and time. She appears well- developed and well-nourished. HENT: Head: Normocephalic and atraumatic. Right Ear: Tympanic membrane, external ear and ear canal normal. Left Ear: Tympanic membrane, external ear and ear canal normal. Mouth/Throat: Oropharynx is clear and moist. Eyes: Conjunctivae and EOM are normal. Pupils are equal, round, and reactive to light. Neck: Normal range of motion. Neck supple. No thyromegaly present. Cardiovascular: Normal rate, regular rhythm and intact distal pulses. Pulmonary/Chest: Effort normal and breath sounds normal. Right breast exhibits no mass, no nipple discharge, no skin change and no tenderness. Left breast exhibits no mass, no nipple discharge, no skin change and no tenderness. Abdominal: Soft. Bowel sounds are normal. There is no tenderness. There is no rebound and no guarding. Genitourinary: Vagina normal and uterus normal. There is no tenderness or lesion on the right labia. There is no tenderness or lesion on the left labia. Cervix exhibits no motion tenderness. Right adnexum displays no tenderness and no fullness. Left adnexum displays no tenderness and no fullness. Musculoskeletal: Normal range of motion. Lymphadenopathy: She has no cervical adenopathy. Right: No inguinal adenopathy present. Left: No inguinal adenopathy present. Neurological: She is alert and oriented to person, place, and time. Skin: Skin is warm and dry. Psychiatric: She has a normal mood and affect. Vitals reviewed. Assessment and Plan: Emma was seen today for annual exam. See encounter summary for patient instructions on wellness for her age including exercise and weight reduction. Diagnoses and all orders for this visit: Preventative health care - Cytopathology Gynecological documented in this encounter Plan of Treatment Upcoming Encounters Date Type Department Care Team (Late st Contact Info) Description 12/03/2024 1:00 PM EDT Appointment Hematology [place] [address] 12/03/2024 2:00 PM EDT Office Visit Hematology [place] [phone] Pelon Wisdom MD [facility] DR HEMAT[place] [address] Oksana Payne APRN [facility] DR HEMATOLOGY [place] [address] documented as of this encounter Procedures Procedure Name Priority Date/Time Associated Diagnosis Comments HPV Routine 05/16/2017 4:15 PM EST GRADES 1 THRU 6 VISITING TEACHER CYTOLOGY INTERPRETATION Routine 05/16/2017 4:15 PM EST GRADES 1 THRU 6 VISITING TEACHER CYTOLOGY FINAL REPORT Routine 05/16/2017 4:15 PM EST CYTOPATHOLOGY GYNECOLOGICAL Routine 05/16/2017 4:08 PM EST Preventative health care documented in this encounter Results * Wood Hacker Cytology Final Report (05/16/2017 4:15 PM EST) [facility] Cytology Final Report [id number] ? Location: The signing pathologist has (i) examined the relevant preparation(s) for the specimen(s) and (ii) rendered or confirmed the diagnosis(es). . ? Wood Hacker Final DIAGNOSIS Normal Negative for Intraepithelial Lesion or Malignancy (NILM). For consensus guidelines for the management of cervical cancer screening test results, please see: ?? http://www.asccp.o rg . Electronically signed by: ??Douglas PARDO(ASCP)Geena Verified: ??05/24/2017 ?Warehouse Guard Performed at: ??-[facility] Dept. of Pathology, [place], [place] DISCUSSION Shift in ashley suggestive of [...] Clinical Genomics and Advanced Technology (CGAT) at [facility]. ? - Bentley Ross, PhD, [facility], Director-CGAT STATEMENT OF ADEQUACY Specimen submitted is satisfactory. Endocervical component present. CLINICAL INFORMATION HPV Option: ?Concurrent HPV and Pap Preparation: ? Liquid based Pap Specimen Source: ? Cervical/Endocervi esteban/Vaginal LMP: ? 05/01/2017 Hormones?: ? No Hysterectomy?: ? No ?: ? No ?: ? No I.U.D.?: ? No Pelvic Radiation: ?No Prior GRADES 1 THRU 6 VISITING TEACHER Therapy?: ?No Hist Abnl Pap/Biopsy?: ?? No Hist of HPV Vaccine?: ?No Hist of Smoking?: ?No Hist of ACE exposure?: ?? No . CLINICAL INFORMATION ICD Diagnosis: ? Z12.4 Encounter for screening for malignant neoplasm of cervix Clinical Data, Significant Therapy and Clinical Impression ?? : ?_ This Pap Test has been evaluated with the assistance of the Dotted Block Pap Test Imaging System. Note: The Pap test is a screening test for cervical cancer with an inherent false-negative rate dependent upon several variables. For further information please contact the [facility] Laboratory. Reference: Brett CARTER. Site Acquisition Manager of Pap Smear Results. In: Yessenia BS, Foster [facility], ed. The Pap Smear. [place]: Shahram, 2002: 71-77. [facility] 05/16/2017 4:15 PM EST Rosy Tavarez APRN PATHOLOGY/CYTOLOGY O RDERABLES [facility] [place] [address] * GRADES 1 THRU 6 VISITING TEACHER Cytology Interpretation (05/16/2017 4:15 PM EST) Wood Hacker Cytology Interpretation NILM [facility] Comment:Wood Hacker Cytology Final R eport Wood Hacker Cytology Comment Present [facility] Endocervical Component Present [facility] AP Specimen 05/16/2017 4:15 PM EST 05/24/2017 5:39 PM EST Rosy Tavarez APRN PATHOLOGY/CYTOLOGY O RDCLIVE Performing Organization Address [facility] [place] [address] * HPV (05/16/2017 4:15 PM EST) HPV16 NEGATIVE NEGATIVE [facility] HPV 18 NEGATIVE NEGATIVE [facility] HPV Other HR NEGATIVE NEGATIVE [facility] HPV Interpretation See Comment [facility] Comment: NEGATIVE for high-risk HPV [...] Agency Comment Spec In Lab Rosy Tavarez APRN PATHOLOGY/CYTOLOGY O PABLO Performing Organization Address [facility] Co de Phone Number [facility] [place] [address] * Cytopathology Gynecological (05/16/2017 4:08 PM EST) AP Specimen 05/16/2017 4:08 PM EST 05/16/2017 4:08 PM EST Narrative [facility] - 05/16/2017 4:08 PM EST Specimen requisition ordered. ??Separate Pathology report to follow Rosy B Tavarez TRAFFIC SURVEY TECHNICIAN PATHOLOGY/CYTOLOGY O RDERABLES [facility] [place] [address] documented in this encounter Visit Diagnoses Diagnosis Preventative health care Routine general medical examination at a health care facility documented in this encounter Care Teams Doula Relationship Specialty Start Date End Date Rosy Tavarez, TRAFFIC SURVEY TECHNICIAN [facility] [place] [address] PCP - General General Internal Medicine 02/14/17 6/05/11 documented as of this encounter
--- OUTSIDE RECORDS SUMMARY | 2024-01-03 01:06 | XMS_ITS | Encounter Summary ---
Author Organization [facility] [place] [address] Care Team Providers Care Library Paraprofessional Name Role Phone Rosy Tavarez GO Primary Care Provider Reason for Visit * Reason Onset Date Comments Other 09/02/2017 Encounter Details Date Type Department Care Team (Late st Contact Info) Description 09/02/2017 [place] [address] Robbin Costa MD [facility] [place] [address] Other Social History Tobacco Use Types Packs/Day Years [...] encounter Miscellaneous Notes * Telephone Encounter - Janice Clemens RN - 09/02/2017 12:13 PM EDT Images from the original note were not included. Robbin Costa MD to Me ??? Aliyah Lantigua ?? 09/02/17 11:29 AM Juan Antonio Sanchez, I can see her this week on at 1:30 to discuss further options for her migraine. For now she should continue with the meds she was given the other day, stay well-hydrated, and sleep. Thank you, Nestor Called patient and relayed recommendations as noted by Dr Costa. She understands and agrees with this plan. * Telephone Encounter - Janice Clemens RN - 09/02/2017 10:10 AM EDT Reason for Call: Migraine continues Patient Report: Patient reports that she was admitted briefly over the weekend for what seemed to be seizure activity. She was told that what she was experiencing was likely related to the migraine headache that she had been having. She was discharged with instructions to take hydroxyzine and naproxen twice daily for 1 week. She states that these medications do not provide any relief of the headache and she reports that the pain seems to be increasing. Patient states that she called to schedulefollow-up with Dr Costa as instructed and was offered an appointment 1 month out and she does not want to wait that long. She is struggling with this migraine and would like to be able to do somethingto treat this and hopefully get some pain relief. Patient was last seen by Dr Costa in November 2016 for syncope and vertigo.Patient does not report significant history of migraine, but was previously prescribed eletriptan, about 10 years ago. Patient is looking for recommendations. Plan/Intervention/Follow Up - Report forwarded to Dr Costa for review and comment. Pt/caller aware they will be called back with input when available and to call back in the interim if additional questions or change arise before they hear back from this office. Pt/caller agreeable to this plan. * Telephone Encounter - Janice Clemens RN - 09/02/2017 9:54 AM EDT Message left requesting return call. * Telephone Encounter - Olga Little - 09/02/2017 9:40 AM EDT Caller: Emma If not Pt / Relation to pt: Best time to reach caller: anytime Before 2:30pm - Informed caller that nurse will call back by the end of the day Best number to reach caller: [phone] Reason for call: Headache Is this the worst headache of the pt life: yes Did the headache start suddenly: no When did the headache start: Monday 08/28 Is the headache still present: yes Additional information for nurse: patient was seen in ED and then admitted. She doesn't want to wait for the 1 month f/u that was requested in her note. Patient is very concerned about the seizures that she had during her latest headache. Headache is still there but has been taking medications as prescribed. Disposition of Call (nurse paged, red arrow message to nurse pool, routine message to nurse pool): message to nurse pool. documented in this encounter Plan of Treatment Upcoming Encounters Date Type Department Care Team (Late st Contact Info) Description 12/03/2024 1:00 PM EDT Appointment Hematology [place] [address] 12/03/2024 2:00 PM EDT Office Visit Hematology and Oncology at [place] [address] Pelon Wisdom MD [facility] [address] HEMATOLOGY [place] [address] Oksana Payne APRN [facility] HEMATOLOGY [place] [address] documented as of this encounter Visit Diagnoses Not on filedocumented in this encounter Care Teams Library Paraprofessional Relationship Specialty Start Date End Date Rosy Tavarez APRN [facility] GENERAL [place] [address] PCP - General General Internal Medicine 02/14/17 6/2 05/11 documented as of this encounter
--- OUTSIDE RECORDS SUMMARY | 2024-01-03 01:06 | XMS_ITS | Encounter Summary ---
Author Organization [facility] [place] [address] Care Team Providers Care Continuous Process Coffee Roaster Name Role Phone Rosy Tavarez APRN Primary Care Provider [phone] Encounter Details Date Type Department Care Team (Late st Contact Info) Description 09/26/2017 4:00 PM EDT Tech Visit [place] [id number] Moriah Graff APRN [address] [place] [address] Bloating Social History Tobacco Use Types Packs/Day Years [...] as of this encounter Progress Notes * Moriah Graff APRN - 09/26/2017 4:00 PM EDT Gastroenterology Breath Test Report Patient: Emma Min Date Of : 1980 PCP: Rosy Tavarez APRN Referring: Moriah Graff STUDY DATE: 09/26/2017 PROVIDER: MORIAH GRAFF APRN INDICATION: Abdominal bloating Evaluate for SIBO ppmH2 ppmCH4 CO2(f) Fasting Baseline 4 2 3.1/1.96 Administer sugar: 15 mL Lactulose 90 mL H2O Sample Time ppmH2 ppmCH4 CO2(f) 1. 20 min 4 2 3.3/1.84 2. 40 min 5 4 3.4/1.79 3. 60 min 11 5 3.4/1.79 4. 80 min 15 7 3.3/1.84 5. 100 min 16 8 3.1/1.96 6. 120 min 19 8 3.2/1.90 7. 140 min 24 9 3.3/1.84 8. 160 min 38 10 3.5/1.74 9. 180 min 38 11 3.2/1.90 Interpretation: Normal breath test, negative for small intestinal bacterial overgrowth (SIBO). 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 The hydrogen production is essentially stable after the administration of lactulose until approximately 140-160 minutes correlating with a slightly delayed orocecal transit time. Signed, Moriah Graff APRN Gastroenterology [place] [address] P: [phone] F: [phone] Copy: Moriah Tavarez APRN Clinical interpretation is based on the [place] consensus on breath testing published in theAmerican Journal of Gastroenterology, 2017. A rise in production of hydrogen or methane greater than 20 ppm or 10 ppm respectively from baseline levels within 90 minutes is consistent with small intestinal bacterial overgrowth. documented in this encounter Plan of Treatment Upcoming Encounters Date Type Department Care Team (Late st Contact Info) Description 12/03/2024 1:00 PM EDT Appointment Hematology [place] [address] 12/03/2024 2:00 PM EDT Office Visit Hematology [place] [phone] Pelon Wisdom MD [facility] HEMATOLOGY [place] [address] Oksana Payne APRN [facility] HEMATOLOGY [place] [address] documented as of this encounter Visit Diagnoses Diagnosis Bloating Flatulence, eructation, and gas pain documented in this encounter Care Teams Continuous Process Coffee Roaster Relationship Specialty Start Date End Date Rosy Tavarez APRN [facility] GENERAL [place] [address] PCP - General General Internal Medicine 02/14/1709/21 documented as of this encounter
--- OUTSIDE RECORDS SUMMARY | 2024-01-03 01:06 | XMS_ITS | Encounter Summary ---
Author Organization [facility] [place] [address] Care Team Providers Care Insole Stiffener Name Role Phone Rosy Tavarez GO Primary Care Provider Encounter Details Date Type Department Care Team (Late st Contact Info) Description 09/24/2017 3:00 PM EDT Office Visit Psychiatry and [place] [address] Taye Lagos, PhD Post-traumatic stress disorder, chronic; [...] Progress Notes * Taye Lagos, PhD - 09/24/2017 3:00 PM EDT INDIVIDUAL THERAPY PROGRESS NOTE Time Spent: 45 minutes CHIEF COMPLAINT/DIAGNOSIS: Post-traumatic Stress Disorder, chronic; Generalized Anxiety Disorder SUBJECTIVE: Ms. Min reported that she had been feeling more depressed since last meeting. She stated that she is in the process of moving out of her ex- boyfriend's place, which has been a major source of stress and led her to feel more depressed. TREATMENT MODALITY: CBT OBJECTIVE: We spent time discussing her symptoms of depression and the factors that have contributed to her worsening mood over the last week. We reviewed her symptoms of PTSD and discussed psychoeducation related to trauma. We discussed a case conceptualization using examples she provided to highlight the connection between her symptoms. This screenplay writer provided a brief overview of Prolonged Exposure and Cognitive Processing Therapy as treatment options to address symptoms of her PTSD. We spent the rest of session discussing these treatments. Ms. Min stated that she was unsure of which treatment she would like to go with. Homework assigned was to read handouts covering both treatments. ASSESSMENT: Ms. Min reported feeling more depressed since last session. The PCL-5 was administered; her score was a 37. She was engaged in session and understood the material covered. Patient-reported Psychiatry Followup scores and responses: PHQ9 MYD-H PHQ-9 RESPONSES 09/17/2017 Little interest or pleasure Several days Down, depressed, hopeless Several days Trouble sleeping Nearly every day Tired or no energy Nearly every day Poor appetite or overeating More than half the days Feeling like a failure Several days Trouble concentrating (newspaper) More than half the days Moving or speaking slowly More than half the days Would be better off Not at all Phq9 Impairment Very difficult PHQ-9 Score 15 (Moderately Severe Depression) GAD7 SAMPSON-7 Patient Reported Responses 09/17/2017 Nervous, anxious (Patient) Nearly every day Unable to stop worrying (Patient) Nearly every day Worrying about different things (Patient) More than half the days Trouble relaxing (Patient) More than half the days Restless (Patient) Nearly every day Easily annoyed, irritable (Patient) More than half the days Afraid something awful will happen (Patient) Several days Difficulty (Patient) Somewhat difficult SAMPSON-7 Score (Patient) 16 (Severe Anxiety) Psychiatry Improvement Scale: Psychiatry Improvement Scale 09/17/2017 Improvement Scale Minimally worse PLAN: Revised goals or interventions: Review treatment options Safety Risk Management: Denied SI/HI Assigned Homework: Review PE and CPT handouts * Monica Figueredo, PhD - 09/24/2017 3:00 PM EDT I was present for the full [...] PM EDT Appointment Hematology [place] [address] 12/03/2024 2:00 PM EDT Office Visit Hematology [place] [phone] Pelon Wisdom MD [facility] DR HEMATOLOGY [place] [address] Oksana Payne APRN [facility] [place]OLOGY [place] [address] documented as of this encounter Visit Diagnoses Diagnosis Post-traumatic stress disorder, chronic SAMPSON (generalized anxiety disorder) Generalized anxiety disorder documented in this encounter Care Teams Insole Stiffener Relationship Specialty Start Date End Date Rosy Tavarez APRN [facility] GENER[place] [address] PCP - General General Internal Medicine 02/14/17 6/2 05/11 documented as of this encounter
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
--- OUTSIDE RECORDS SUMMARY | 2024-01-03 01:06 | XMS_ITS | Encounter Summary ---
Author Organization [facility] [place] [address] Care Team Providers Care Quotation Clerk Name Role Phone Rosy Tavarez PROGRAMMING ENGINEER Primary Care Provider Encounter Details Date Type Department Care Team (Latest Contact Info) Description 08/29/2017 - 08/29/2017 11:59 PM EDT Hospital Encounter [place] [phone] Rosy Tavarez PROGRAMMING ENGINEER [facility] [place] [place] [address] Discharge Disposition: Home Social History Tobacco Use [...] Sig Dispensed Refills Start Date End Date acetaminophen (TYLENOL) 500 mg TabletIndications:Pain , chest wall Take 2 tablets by mouth every 6 hours as needed for Pain. 30 tablet 1 03/12/2017 glucose (DEX4 GLUCOSE) 4 gram Tablet, Chewable Take 4 tablets by mouth as needed for Low blood sugar. 90 tablet 11 11/07/2016 gabapentin (NEURONTIN) 100 mg Capsule Take 1 capsule by mouth 3 times daily. 90 capsule 3 05/08/2017 02/09/2021 omeprazole (PRILOSEC) 40 mg Capsule, Delayed Release(E.C.) Take 1 capsule by mouth daily. 30 capsule 11 04/29/2017 10/07/2017 blood sugar diagnostic strips StripIndications:Diabe enma mellitus without complication Test blood glucose 4 times daily. Salas Metrix self monitoring Blood Glucose strips E11.9 400 each 3 04/29/2017 02/09/2021 lancets (MICROLET LANCET) Misc 1 each by Misc.(Non-Drug; Combo Route) route 4 times daily. 100 each 12 04/29/2017 02/09/2021 colesevelam (WELCHOL) 625 mg Tablet Take 2 tablets by mouth 2 times daily (with meals) for 30 days. 120 tablet 04/18/2017 10/15/2017 Cholestyramine-Asparta me (CHOLESTYRAMINE LIGHT) 4 gram Powder in PacketIndications:Hype rtriglyceridemia Take 1 packet by mouth 2 times daily. 180 packet 3 04/09/2017 09/05/2017 Blood-Glucose Meter MiscIndications:Diabet es mellitus without complication Please dispense Salas Metrix meter. E11.9 1 each 01/22/2017 02/09/2021 lancets (LANCETS,THIN) 28 gauge Misc 1 each by Misc.(Non-Drug; Combo Route) route 4 times daily. microlet lancets 400 each 3 12/28/2016 10/15/2017 fexofenadine (SHELBI) 180 mg TabletIndications:Seas onal allergic rhinitis due to pollen Take 1 tablet by mouth daily as needed. 90 tablet 3 11/15/2016 02/09/2021 meclizine (ANTIVERT) 25 mg TabletIndications:Vert igo Take 1 tablet by mouth 3 times daily as needed. 90 tablet 11/15/2016 02/09/2021 eletriptan (RELPAX) 20 mg tablet 20 MG = 1 Tablet(s), PO, PRN 11/28/2006 09/05/2017 documented as of this encounter Plan of Treatment Upcoming Encounters Date Type Department Care Team (Late st Contact Info) Description 12/03/2024 1:00 PM EDT Appointment Hematology [place] [address] 12/03/2024 2:00 PM EDT Office Visit Hematology [place] [address] Pelon Wisdom MD [facility] [place] [address] Oksana Payne APRN [facility] [place] [address] documented as of this encounter Procedures Procedure Name Priority Date/Time Associated Diagnosis Comments FILM LIBRARY STORAGE ONLY CT HEAD Routine 08/29/2017 12:00 AM EDT documented in this encounter Results * Film Library- Storage Only CT Head (08/29/2017 12:00 AM EDT) Narrative [facility] - 08/30/2017 12:19 PM EDT This exam is for storage only and is auto-finalizing. Rosy Tavarez APRN Scott FILM LIBRARY ORD ERABLES Performing Organization Address City/State[facility] Co de Phone Number [place], [place] documented in this encounter Visit Diagnoses Not on filedocumented in this encounter Care Teams Quotation Clerk Relationship Specialty Start Date End Date Rosy Tavarez APRN [facility] [address] PCP - General General Internal Medicine 02/14/1709/21 documented as of this encounter
--- OUTSIDE RECORDS SUMMARY | 2024-01-03 01:06 | XMS_ITS | Encounter Summary ---
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, without long-term current use of insulin, unspecified laterality Isabel Hicks MD [facility] [place] [address] [facility] [place] [address] Referral ID Status Reason Start Date Expiration Date V isits Requested Visits Authorized [id number] Closed Consult, Test & Treat 10/15/2017 10/15/2018 1 1 Reason for Visit * Reason Comments Diabetes Encounter Details Date Type Department Care Team (Latest Contact Info) Description 10/15/2017 11:30 AM EDT Office Visit [place] [phone] Isabel Hicks MD [facility] [place] [address] Type 2 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, without long-term current use of insulin, unspecified laterality Social History Tobacco Use Types Packs/Day Years [...] Sign Reading Time Taken Comments Blood Pressure 109/75 10/15/2017 11:25 AM EDT Pulse 87 10/15/2017 11:25 AM EDT Temperature - - Respiratory Rate - - Oxygen Saturation - - Inhaled Oxygen Concentration - - Weight 77 kg (169 lb 12.8 oz) 10/15/2017 11:25 A M EDT Height 162.6 cm (5' 4) 10/15/2017 11:25 AM EDT Body Mass Index 29.15 10/15/2017 11:25 AM EDT documented in this encounter Patient Instructions * Patient Instructions* Isabel Hicks MD - 10/15/2017 11:30 AM EDT Work on taking your victoza daily. See dependency program director about cracked heels (referral at [facility] placed). Will attempt to get welchol for the high cholesterol. Will also look into other cholesterol meds without lactose. Follow-up in 6 months, come 1 hour early for blood draw in 3L for pre- appointment labs. documented in this encounter Progress Notes * Isabel Hicks MD - 10/15/2017 11:30 AM EDT Endocrinology Clinic Follow-up Visit Reason for Visit: Follow-up of Diabetes Mellitus Type 2 HISTORY OF PRESENT ILLNESS: Ms. Emma Min is a 37 y.o. year old lady with history significant for DM type 2, who was previously seen in our clinic by Drs. Nguyen and Camille in October 2016, at which time she had reported having experienced a hypoglycemic seizure when Bydureon was added to her Lantus, the latter of which she had only been taking intermittently. She had never had any bouts of DKA. Her c-peptide was near the ULN at 5.2 with a plasma glucose of 187 mg/dL, which was also suggestive of type 2 diabetes. The Lantus and Bydureon were discontinued at that time, and she was left on metformin XR. Since that time she had been in communication with Dr. Nguyen - unfortunately the metformin XR gave her profused diarrhea, so on 11/13/16, Dr. Nguyen discontinued it and started her on Victoza instead. C-peptide was at the ULN at 5.2 with a BG in 185. 25-OH-D was 7 checked by PCP 1 month ago, getting repleted with high dose vitamin D. Has noticed a big improvement in her fatigue with this. Reports today that the victoza is going well. She had been off of it for a few months, and just resumed taking it about 1 month ago. Taking 1.8mg daily. Lowest FSBG has been in the 80s. Feels neuroglycopenia when she is in the 80s though. Keeps glucose gel nearby for those situations. Highest FSBG has been low 200s lately, but only happens rarely now. Mostly runs 130s -150s. Continuing to work on weight loss - has lost a total of 220 lbs in her weight loss journey (A1c used to be 13% a few years back), still losing weight slowly. Was in the hospital a few weeks ago - had intractable nausea and vomiting one morning, then syncope+ seizures. FSBG was checked during syncope and seizure activity, she reports glucose was normal. Was admitted at [facility] for this, was found to have migraines. She used to be on welchol for her cholesterol - she can only tolerate this lipid medication becauseit doesn't have lactose, as she is severely lactose intolerant; she remembers her PCP had looked into other lipid meds and they all contained lactose. Welchol was denied coverage by her insurance as of April 22, so she has had to be off of it. She is very worried about her cholesterol being highand being off of the welchol bc she has a strong family history of high cholesterol (father and patgrandfather). Date of Diagnosis: Last HgbA1c: 8.2% (August 2017) 7.2% (October 2016) Current Diabetes Medication regimen: Victoza 1.8 mg daily (misses doses about 4x/month, ~1x/week) Misses doses, went a few months without taking it, but resume FSBG regimen: as above Hypoglycemia: as above Diet: Physical Activity: Smoking: History of complications 1) Nephropathy - Um:cr , sCr 2) Neuropathy - no n/t, has chronic dry skin causing cracks, lac hydrin helps. 3) Retinopathy - Last ophtho evaluation - January 2017 at [facility] with Dr. Mtz - mild nonproliferative DRJovanny Next appt Feb 2018. 4) CV disease - LDL 187 PAST MEDICAL HISTORY: Patient Active Problem List Diagnosis Date Noted ??? Seizure-like activity 09/01/2017 ??? Depression 02/08/2017 ??? Anxiety 02/08/2017 ??? Gastroesophageal reflux disease without esophagitis 11/15/2016 ??? Uncontrolled diabetes mellitus type 2 without complications 11/15/2016 MEDICATIONS: Medications 10/15/17 1149 Medication Sig Taking? omeprazole (PRILOSEC) 40 mg Capsule, Delayed Release(E.C.) Take 1 capsule by mouth daily. Yes rifAXIMin (XIFAXIN) 550 mg Tablet Take 1 tablet by mouth 3 times daily for 14 days. Yes VICTOZA 2-SHANA 0.6 mg/0.1 mL (18 mg/3 mL) Pen Injector Inject 1.8 mg subcutaneously every morning. Yes fludrocortisone (FLORINEF) 0.1 mg Tablet Take 1 tablet by mouth daily. Yes cholecalciferol, Vitamin D3, 50,000 unit Capsule Take 1 capsule by mouth once a week for 12 doses. Yes gabapentin (NEURONTIN) 100 mg Capsule Take 1 capsule by mouth 3 times daily. Yes blood sugar diagnostic strips Strip Test blood glucose 4 times daily. Salas Metrix self monitoring Blood Glucose strips E11.9 Yes lancets (MICROLET LANCET) Misc 1 each by [facility].(Non-Drug; Combo Route) route 4 times daily. Yes Blood-Glucose Meter Misc Please dispense Salas Metrix meter. E11.9 Yes eletriptan (RELPAX) 20 mg Tablet Take 1 tablet by mouth once as needed. may repeat in 2 hours if necessary Patient not taking: Reported on 10/15/2017 hydrOXYzine (VISTARIL) 25 mg Capsule Take 1 capsule by mouth 2 times daily. Take as needed for migraine Patient not taking: Reported on 10/15/2017 naproxen sodium (ANAPROX) 550 mg Tablet Take 1 tablet by mouth 2 times daily as needed (migraine). Patient not taking: Reported on 10/15/2017 acetaminophen (TYLENOL) 500 mg Tablet Take 2 tablets by mouth every 6 hours as needed for Pain. Patient not taking: Reported on 10/15/2017 fexofenadine (SHELBI) 180 mg Tablet Take 1 tablet by mouth daily as needed. Patient not taking: Reported on 10/15/2017 meclizine (ANTIVERT) 25 mg Tablet Take 1 tablet by mouth 3 times daily as needed. Patient not taking: Reported on 10/15/2017 glucose (DEX4 GLUCOSE) 4 gram Tablet, Chewable Take 4 tablets by mouth as needed for Low blood sugar. Patient not taking: Reported on 10/15/2017 ALLERGIES: Allergies Allergen Reactions ??? Latex ??? Other [Unclassified Drug] Anaphylaxis Any type of anti-depressant. ??? Paroxetine Hcl CIS - Edema ??? Lactose SOCIAL HISTORY: History Smoking Status ??? Former Smoker ??? Packs/day: 2.00 ??? Types: Cigarettes ??? Quit date: 11/27/2016 Smokeless Tobacco ??? Never Used FAMILY HISTORY: Family History Relation Problem Age of Onset ??? Mother Hyperlipidemia ??? Father Depression Hyperlipidemia ??? Sister Bipolar Disorder ??? Maternal Grandfather Diabetes ??? Maternal Aunt Diabetes ??? Neg Hx Amblyopia Cancer Cataracts Glaucoma Heart Disease Hypertension Macular Degeneration Retinal Detachment Strabismus Thyroid Disease REVIEW OF SYSTEMS: All 12 systems reviewed and negative except as noted per HPI. PHYSICAL EXAM: Vitals Office Visit from 10/15/2017 in Endocrinology at [place] Weight 77 kg (169 lb 12.8 oz) Height 162.6 cm (5' 4) BSA (Calculated - sq m) 1.86 sq meters BMI (Calculated) 29.14 Heart Rate 87 BP 109/75 Gen: NAD, AAOx3, speaking full sentences, calm very pleasant demeanor Foot exam: very dry heels with cracking. No onychomycosis. No wounds or sores. ASSESSMENT: 37 yo F with DM type 2, had a period of noncompliance and just resumed taking her victoza about 1 month ago, after her last A1c of 8.2% was checked. Therefore this A1c reflects her being off of any medications, and I anticipate that it will reach goal (7.0%) if she continues with daily compliance (she still forgets doses some days, even since resuming). Her LDL was high at 187 six months ago, so I definitely agree with her concern about being off of cholesterol medication treatment.Since there is a compelling reason why welchol is her only option (severe lactose intolerance), I would like to attempt prescribing it again for her, and if denied we could appeal on this basis. I marylou l also look into what other options for cholesterol lowering therapy exist that are lactose-free. PLAN: Work on taking your victoza daily. See dependency program director about cracked heels (referral at [facility] placed). Will attempt to get welchol for the high cholesterol. Will also look into other cholesterol meds without lactose. Follow-up in 6 months, come 1 hour early for blood draw in 3L for pre- appointment labs. 25 min of this 40 min face to face visit was spent in counseling the patient on DM mgmt. ISABEL HICKS MD Caster Operatoreducational aid Section of Endocrinology [facility] documented in this encounter Plan of Treatment Upcoming Encounters Date Type Department Care Team (Late st Contact Info) Description 12/03/2024 1:00 PM EDT Appointment Hematology and Oncology at [place] [phone] 12/03/2024 2:00 PM EDT Office Visit Hematology and Oncology at [place] [phone] Pelon Wisdom MD [facility] [address] [place] [address] Oksana Payne APRN [facility] [address] [place] [address] Scheduled Referrals Name Type Priority Associated Diagnoses Orde r Schedule Referral to Podiatry Outpatient Referral Routine 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
--- OUTSIDE RECORDS SUMMARY | 2024-01-03 01:06 | XMS_ITS | Encounter Summary ---
[place] [address] Care Team Providers Care Artificial Limb Maker Name Role Phone Rosy Tavarez GO Primary Care Provider [phone] Reason for Visit * Reason Onset Date Comments Medication Refill 10/04/2017 Encounter Details Date Type Department Care Team (Late st Contact Info) Description 10/07/2017 Refill [place] [phone] Moriah Tobar APRN [address] [place] [address] Social History Tobacco Use Types Packs/Day Years [...] encounter Miscellaneous Notes * Telephone Encounter - Sami Batres RN - 10/07/2017 9:20 AM EDTFrom: Rupesh Min To: Moriah Tobar APRN Sent: 10/04/2017 3:53 PM EDT Subject: Medication Renewal Request Original authorizing provider: GO Gongora would like a refill of the following medications: omeprazole (PRILOSEC) 40 mg Capsule, Delayed Release(E.C.) [oMriah Tobar APRN] rifAXIMin (XIFAXIN) 550 mg Tablet [Moriah Tobar APRN] Preferred pharmacy: [facility] [address] [facility] [address] [facility] Comment: documented in this encounter Plan of Treatment Upcoming Encounters Date Type Department Care Team (Late st Contact Info) Description 12/03/2024 1:00 PM EDT Appointment Hematology [place] [address] 12/03/2024 2:00 PM EDT Office Visit Hematology [place] [phone] Pelon Wisdom MD [facility] [place] [address] Oksana Payne APRN [facility] [address] [place] [address] documented as of this encounter Visit Diagnoses Not on filedocumented in this encounter Care Teams Artificial Limb Maker Relationship Specialty Start Date End Date Rosy Tavarez APRN [facility] [place] [address] PCP - General General Internal Medicine 02/14/1709/21 documented as of this encounter
--- OUTSIDE RECORDS SUMMARY | 2024-01-03 01:06 | XMS_ITS | Encounter Summary ---
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 Name Role Phone Rosy Tavarez GO Primary Care Provider Reason for Visit * Reason Comments Headache Altered Mental Status Numbness * Auth/Cert Specialty Diagnoses / Procedures Referred By Contac t Referred To Contact Diagnoses Seizure-like activity Nonintractable headache, unspecified chronicity pattern, unspecified headache type Procedures EMERGENCY OBSVO Referral ID Status Reason Start Date Expiration Date Visits Re quested Visits Authorized [id number] 1 1 Encounter Details Date Type Department Care Team (Late st Contact Info) Description 08/31/2017 4:23 PM EDT - 09/01/2017 2:50 PM EDT Emergency 3 [place] [address] Stephen Wang MD [facility] [place] [address] [facility] [place] [address] Nonintractable headache, unspecified chronicity pattern, unspecified headache type; Seizure-like activity Discharge Disposition: Home Social History Tobacco Use [...] Sign Reading Time Taken Comments Blood Pressure 108/68 09/01/2017 1:03 PM EDT Pulse 76 09/01/2017 2:00 AM EDT Temperature 37 ??C (98.6 ??F) 09/01/2017 1:03 PM EDT Respiratory Rate 16 09/01/2017 1:03 PM EDT Oxygen Saturation 99% 09/01/2017 1:03 PM EDT Inhaled Oxygen Concentration - - Weight 76.2 kg (168 lb) 09/01/2017 2:54 AM EDT Height 162.6 cm (5' 4) 09/01/2017 2:54 AM EDT Body Mass Index 28.84 09/01/2017 2:54 AM EDT documented in this encounter Discharge Summaries * Pato Freire MD - 09/01/2017 1:46 PM EDT Discharge Summary Patient Name: Emma Min Patient Age: 37 y.o. Language: Tajik Race: White Ethnicity: Not nor Admit Date: 08/31/2017 Discharge Date: 09/01/2017 Attending Physician: Billy Oneal MD Discharge Physician: Billy Oneal Md Follow-up Recommendations for Providers: -Please ensure patient follows up in neurology clinic - Please follow up final MRI brain report -Patient is to start naproxen and vistaril twice a day for 1 week and then use as needed Inpatient Provider Contact Information: For questions regarding this document or issues related to this hospitalization on the Neurology Service, please contact the author(s) of this discharge summary through the [facility] [employer] . Discharge Diagnoses (Hospital Problems) and Secondary Diagnoses (Chronic Problems): Primary Diagnosis: Migraine Secondary Diagnosis: NA Active Hospital Problems Diagnosis ??? Seizure-like activity Resolved Hospital Problems Diagnosis Date Resolved No resolved problems to display. Active Non-Hospital Problems Diagnosis ??? Depression ??? Anxiety ??? Gastroesophageal reflux disease without esophagitis ??? Uncontrolled diabetes mellitus type 2 without complications Past Medical History: Diagnosis Date ??? Allergic state ??? Anxiety ??? Depression History of Presentation: CC: Seizure-like activities with prodrome symptoms today concerning for possible upcoming seizure activity ?? HPI: Emma Min is a 37 y.o. right-handed female with past medical history significant for migraines, GERD, type 2 diabetes (uncontrolled) anxiety and depression, who presents to the emergency department for further evaluation regarding possible seizures. ?? as per d provider notes most recently that Saturday she had a migraine, nausea and got better on . The Saturday headache happened suddenly and the nausea was with it. She was not feeling well later on and she was noted to have seizures and vomiting for an hour after the seizures.She notes she was in her car and passed out and was told by her coworkers that she was shaking, with contorted face, and shaking of her body when she went limp. She notes that she believe Benoit went to the [place] ED for seizures that were negative at that time. Possible Chiari malformation. It was reported as a syncopal episodes. She saw her PCP and referral to neurology was made. ?? Today she's had a headache that has been more severe, with nausea that appears to be similar to follow any speaking typical migraines. Her concern is that this might be a seizure. ?? Of note the patient was seen in our neurology clinic by Dr. Robbin Costa, for syncope and vertigo. During that visit it was recommended that she increase her salt and fluid intake, as well as wear compression stockings, for her syncope. For vertigo she was instructed to continue on meclizine and Jessica maneuvers as needed. ?? Onset & Progression patient notes she has had episodes of syncope for a long time but cannot identify an exact date. No since she been seen multiple times and had multiple workups for this. Semiology: She notes that prior to her passing out events she gets a loud ringing in her ears that keeps getting louder, her vision starts to come in on her, and she feels extremely warm before she passes out. Notes that her heart is racing right before it comes on. Notes that afterward she is extremely groggy and tired for close to a day and a half. Triggers: She is not aware of any triggers but notes that in the past it was assumed that it was due to her fluctuating blood glucose levels History of Status Epilepticus: [] Denies Tongue biting: [] Denies Incontinence: [] Notes that she did not have an episode of incontinence to last year with 1 of her passing out episodes Post-ictal psychosis: [] Denies Risk factors for epilepsy: Head trauma: [] Denies Meningoencephalitis: [] Denies complications: [] Denies Complex febrile seizures: [] Denies Family history of epilepsy: [] Denies Risk factors for nonepileptic seizures: (History negative for greater than three seizures types, pre-ictal headache, ictal eye closure, ictal crying, multiple AEDs, seizures greater than 5 minutes, prior psych treatment, hx of sz in close friend/relative, h/o suicide attempt, greater than 12 drinks per week, fibromyalgia, malpractice lawsuit, sexual or physical abuse) Current AEDS: Has never been on any antiepileptic medication ? Recent Levels: N/A Past AEDs: NA ?? Psychiatric History: Anxiety and depression Physical Exam at Admission Vitals: Temp: [36.7 ??C (98.1 ??F)] Heart Rate: [61] Resp: [18] BP: (120)/(70) SpO2: [100 %] Heart Rate from SPO2: -- Gen: Patient of apparent stated age, well nourished, well developed, awake, alert, NAD Neck: Supple, no meningismus, no carotid bruit, no occipital tenderness CV: + S1, S2, RRR, no murmur Resp: CTA B/L Abd: +normoactive bowel sounds, soft, nontender, nondistended Ext: No edema. No bony deformity Neuro Exam: MS: AAOx4, clear language, no dysarthria, follows commands appropriately CN: PERRL, EOMI, visual interiano full Facial sensation intact, no facial asymmetry Hearing intact to voice Palate elevates symmetrically, tongue protrudes midline SCM and trap strength intact Motor: Normal bulk and tone. UE: 5/5 R, 5/5 L Arm abduction at shoulder 5/5 R, 5/5 L Elbow extension 5/5 R, 5/5 L Elbow flexion 5/5 R, 5/5 L Rental Sales Agent LE: 5/5 R, 5/5 L Hip flexion 5/5 R, 5/5 L Knee extension 5/5 R, 5/5 L Knee flexion 5/5 R, 5/5 L Foot dorsiflexion 5/5 R, 5/5 L Foot plantar flexion Sensation: Intact to light touch, temperature, and vibration throughout Reflexes: DTRs 2+ R, 2+ L Biceps 2+ R, 2+ L Brachioradialis 2+ R, 2+ L Triceps 2+ R, 2+ L Patellar 2+ R, 2+ L Achilles tendon Toes - R down, L down Coordination: Finger to nose intact, no dysmetria Rapid alternating movements & finger tapping smooth and symmetric Heel-viveros intact No tremor Gait: Not assessed ?? Hospital Course: Emma Min was admitted to the neurology services for further evaluation for concern for seizures. Patient's exam was non-focal on admission. She had a 30 min EEG which was negative. Upon further discussion she sees a [facility] neurologist, Dr. Costa, and has been managed for her migraines and syncopal symptoms. She had an MRI performed that showed no acute infarct or abnormalities. Final report of MRI was pending at the time of discharge. She was discharged on scheduled naproxen and vistaril for 1 week then as needed thereafter. Operations/Major Procedures: none Consultations none Diagnostic Tests & Neuroimaging: Date Study Results 09/01 ECG Component Value Flag Ref Range Units Status ?? Ventricular rate 69 BPM Preliminary ?? Atrial Rate 69 BPM Preliminary ?? P-R Interval 136 ms Preliminary ?? QRS Duration 96 ms Preliminary ?? Q-T Interval 430 ms Preliminary ?? QTC Calculated (Bezet) 460 ms Preliminary ?? Calculated P Clayton 48 degrees Preliminary ?? Calculated R Clayton 46 degrees Preliminary ?? Calculated T Clayton 13 degrees Preliminary ?? INTERPRETATION Preliminary ?? Normal sinus rhythm with sinus arrhythmia Normal ECG When compared with ECG of 31-AUG-2017 17:33, (unconfirmed) QT has lengthened 08/31 30 min EEG ELECTROENCEPHALOGRAPHER'S REPORT: Background During the awake state with the eyes closed the background consisted of a normal amplitude, 10 Hz posterior reactive rhythm that attenuated appropriately with eye opening. Beta activity was distributed diffusely with an anterior predominance. There was a normal anterior-posterior voltage gradient. With eye opening the background activity changed to a low voltage mixture of alpha, beta, and occasional theta range frequencies. There were no significant asymmetries of background activity noted. ?? Sleep Stage II sleep was obtained. ?? Hyperventilation Hyperventilation did not result in diffuse slowing of the background activity. ?? Photic Stimulation Photic stimulation using a step-nichole increase in photic frequency varying from 1-21 Hertz resulted in driving from 5-21 hz but no abnormalities. ?? Abnormal Activity None ?? EKG EKG revealed normal sinus rhythm. ?? PRIOR EEG: No previous EEG reports were available. INTERPRETATION: This EEG is normal during the awake and sleep states as well as during the activation procedures ofhyperventilation and photic stimulation. CLINICAL CORRELATION: Normal awake and asleep study. No epileptiform activity. A normal EEG does not exclude epilepsy. ?? 09/01 MRI BRAIN Final report pending Labs: Last 3 wbc, hgb, hct plt Recent Labs 09/01/ Labs 09/01/17 0327 08/30/17 1038 11/15/16 1551 WBC 6.5 7.1 9.0 HGB 12.1 13.5 13.7 HCT 34.2* 37.8 38.1 PLATELET 201 242 287 Labs 09/01/ Labs 09/01/17 0327 04/24/17 1548 11/15/16 1551 NA 139 -- 139 K 3.2* -- 3.8 CL 101 -- 98 CO2 26 -- 26 BUN 7* -- 15 CREATININE 0.79 0.75 1.00 abs 09/01/ Labs 09/01/17 0327 AST 12 ALT 8 ALKPHOS 59 BILITOT 0.4 BILIDIR 0.1 cent Labs 09/01/ Labs 09/01/17 0327 CALCIUM 8.7 8.7 Labs 09/01/ Labs 09/01/17 0327 PT 11.3 INR 1.0 PTT 30 Labs 04/24/ Labs 04/24/17 1548 LDLDIRECT 187 Labs 08/30/ Labs 08/30/17 1038 04/24/17 1548 HA1C 8.2* 8.8* ab Data: none Vital Signs at Discharge: BP: 109/59, Heart RaBP: 109/59mpHeart Rate: 76??FTemp: 36.6 ??C (97.9 ??F)cuResp: 22.8BMI (Calculated): 28.834Height: 162.6 cm (5' 4) (09/01/17253)lWeight: 76.2 kg (168 lb) (09/01/17253)ve Status: Baseline Physical Exam at Discharge: Vitals: Temp: [36.6 ??C (97.9 ??F)-36.7 ??C (98.1 ??F)] Heart Rate: [51-76] Resp: [15-22] BP: (92-120)/(43-70) SpO2: [95 %-100 %] Heart Rate from SPO2: [50 bpm-79 bpm] Gen: Patient of apparent stated age, well nourished, well developed, awake, alert, NAD, laying in bed at the time of the assessment Neck: Supple, no meningismus, no carotid bruit, no occipital tenderness noted on palpation Ext: No edema. No bony deformity Neuro??Exam: MS: AAOx4, clear language, no dysarthria, follows commands??appropriately CN: ?PERRL, EOMI, visual interiano full ?Facial sensation intact, no facial asymmetry ?Hearing intact to??voice ?Palate elevates symmetrically, tongue protrudes midline ?SCM and trap strength intact Motor: ?Normal bulk and tone. ?UE: ?5/5 R, 5/5 L ?Arm abduction at shoulder ?5/5 R, 5/5 L ?Elbow extension ?5/5 R, 5/5 L ?Elbow flexion ?5/5 R, 5/5 L ?Rental Sales Agent ?LE: ?5/5 R, 5/5 L ?Hip flexion ?5/5 R, 5/5 L ?Knee extension ?5/5 R, 5/5 L ?Knee flexion ?5/5 R, 5/5 L ?Foot dorsiflexion ?5/5 R, 5/5 L ?Foot plantar flexion Sensation: Intact to light touch, temperature, and vibration throughout Reflexes: ?DTRs ? not assessed this morning ?Toes - R down, L down? Coordination: ?Finger to nose intact,??no dysmetria Gait: Not assessed Discharge Conditions/Prognosis: Good Discharge to: Home Updated Allergies/ADRs: Allergies Allergen Re Allergies Allergen Reactions ??? Latex ??? Other [Unclassified Drug] Anaphylaxis Any type of anti-depressant. ??? Paroxetine Hcl CIS - Edema ??? Lactose his Hospitalization: Immunization History Immunization History Administered Date(s) Administered ??? Influenza PF, Split 01/14/2017 ??? Influenza Vaccine, Unspecified Formulation 01/31/2016 ??? Tdap Vaccine 01/14/2017 s: Your Medications Your Medications New Medications Dose Details hydrOXYzine 25 mg Cap Commonly known as: VISTARIL Take 1 capsule by mouth 2 times daily. Take 2xday for 1 week, then as needed 1-2 times a day 25 mg Quantity: 30 capsule Refills: 12 naproxen 500 mg Tab Commonly known as: NAPROSYN Take 1 tablet by mouth 2 times daily (with meals). Take 2xday for 1 week, then as needed 500 mg Quantity: 60 tablet Refills: 12 Continued medications, unchanged Dose Details acetaminophen 500 mg Tab Commonly known as: TYLENOL Take 2 tablets by mouth every 6 hours as needed for Pain. 1000 mg Quantity: 30 tablet Refills: 1 blood sugar diagnostic strips Strp Test blood glucose 4 times daily. Salas Metrix self monitoring Blood Glucose strips E11.9 Quantity: 400 each Refills: 3 Blood-Glucose Meter Misc Please dispense Salas Metrix meter. E11.9 Quantity: 1 each Refills: 0 Cholestyramine-Aspartame 4 gram Pwpk Commonly known as: cholestyramine light Take 1 packet by mouth 2 times daily. 1 packet Quantity: 180 packet Refills: 3 fexofenadine 180 mg Tab Commonly known as: SHELBI Take 1 tablet by mouth daily as needed. 180 mg Quantity: 90 tablet Refills: 3 gabapentin 100 mg Cap Commonly known as: NEURONTIN Take 1 capsule by mouth 3 times daily. 100 mg Quantity: 90 capsule Refills: 3 glucose 4 gram Chew Commonly known as: DEX4 GLUCOSE Take 4 tablets by mouth as needed for Low blood sugar. 16 g Quantity: 90 tablet Refills: 11 * lancets 28 gauge Misc Commonly known as: LANCETS,THIN 1 each by Misc.(Non-Drug; Combo Route) route 4 times daily. microlet lancets 1 each Quantity: 400 each Refills: 3 * lancets Misc Commonly known as: MICROLET LANCET 1 each by Misc.(Non-Drug; Combo Route) route 4 times daily. 1 each Quantity: 100 each Refills: 12 meclizine 25 mg Tab Commonly known as: ANTIVERT Take 1 tablet by mouth 3 times daily as needed. 25 mg Quantity: 90 tablet Refills: 0 omeprazole 40 mg Cpdr Commonly known as: PriLOSEC Take 1 capsule by mouth daily. 40 mg Quantity: 30 capsule Refills: 11 RELPAX 20 mg Tab 20 MG = 1 Tablet(s), PO, PRN Generic drug: eletriptan Refills: 0 * Notice: This list has 2 medication(s) that are the same as other medications prescribed for you. Read the directions carefully, and ask your doctor or other care provider to review them with you. Patient at Discharge: Patient Instructions Patient Instructions You were admitted to the neurology service at [facility]. Your diagnosis: Migraine Your Medications New Medications Dose Details hydrOXYzine 25 mg Cap Commonly known as: VISTARIL Take 1 capsule by mouth 2 times daily. Take 2xday for 1 week, then as needed 1-2 times a day 25 mg Quantity: 30 capsule Refills: 12 naproxen 500 mg Tab Commonly known as: NAPROSYN Take 1 tablet by mouth 2 times daily (with meals). Take 2xday for 1 week, then as needed 500 mg Quantity: 60 tablet Refills: 12 Continued medications, unchanged Dose Details acetaminophen 500 mg Tab Commonly known as: TYLENOL Take 2 tablets by mouth every 6 hours as needed for Pain. 1000 mg Quantity: 30 tablet Refills: 1 blood sugar diagnostic strips Strp Test blood glucose 4 times daily. Salas Metrix self monitoring Blood Glucose strips E11.9 Quantity: 400 each Refills: 3 Blood-Glucose Meter Misc Please dispense Salas Metrix meter. E11.9 Quantity: 1 each Refills: 0 Cholestyramine-Aspartame 4 gram Pwpk Commonly known as: cholestyramine light Take 1 packet by mouth 2 times daily. 1 packet Quantity: 180 packet Refills: 3 fexofenadine 180 mg Tab Commonly known as: SHELBI Take 1 tablet by mouth daily as needed. 180 mg Quantity: 90 tablet Refills: 3 gabapentin 100 mg Cap Commonly known as: NEURONTIN Take 1 capsule by mouth 3 times daily. 100 mg Quantity: 90 capsule Refills: 3 glucose 4 gram Chew Commonly known as: DEX4 GLUCOSE Take 4 tablets by mouth as needed for Low blood sugar. 16 g Quantity: 90 tablet Refills: 11 * lancets 28 gauge Misc Commonly known as: LANCETS,THIN 1 each by Misc.(Non-Drug; Combo Route) route 4 times daily. microlet lancets 1 each Quantity: 400 each Refills: 3 * lancets Misc Commonly known as: MICROLET LANCET 1 each by Misc.(Non-Drug; Combo Route) route 4 times daily. 1 each Quantity: 100 each Refills: 12 meclizine 25 mg Tab Commonly known as: ANTIVERT Take 1 tablet by mouth 3 times daily as needed. 25 mg Quantity: 90 tablet Refills: 0 omeprazole 40 mg Cpdr Commonly known as: PriLOSEC Take 1 capsule by mouth daily. 40 mg Quantity: 30 capsule Refills: 11 RELPAX 20 mg Tab 20 MG = 1 Tablet(s), PO, PRN Generic drug: eletriptan Refills: 0 * Notice: This list has 2 medication(s) that are the same as other medications prescribed for you. Read the directions carefully, and ask your doctor or other care provider to review them with you. Patient Instructions: ??? Call your doctor or seek medical attention if you have ??? weakness or numbness in your face or one of your limbs or difficulty speaking ??? loss of vision ??? seizures or loss of consciousness ??? Diet: we recommend a heart healthy diet: low fat, low cholesterol, low concentrated sweets. ??? Activity Restrictions: none ??? Driving Restrictions: none ??? Home oxygen therapy: none needed ??? Anticoagulation Follow-up and Instructions: none FOLLOWUP APPOINTMENT: You will have an outpatient followup appointment in the neurology clinic at [facility]. If not already listed in this document, we will contact you to schedule this appointment. -- If 1 week passes by after you are discharged and you still do not have an appointment, please call [phone]. Future Appointments and Orders Future Appointments Provider Department Dept Phone 09/10/2017 3:30 PM Isabel Hicks MD [facility] [place] [phone] 09/13/2017 11:00 AM Taye Lagos, [facility] [place] [phone] 09/26/2017 12:00 PM LETTY, ORNAMENTAL RAIL INSTALLER [facility] [place] [phone] 09/26/2017 4:00 PM Moriah Tobar APRN [facility] [place] [phone] General Instructions None nd Orders Future Appointments Provider Department Dept Phone 09/10/2017 3:30 PM Isabel Hicks MD [facility] [place] [phone] 09/13/2017 11:00 AM Taye Lagos, [facility] [place] [phone] 09/26/2017 12:00 PM LETTY, ORNAMENTAL RAIL INSTALLER [facility] [place] [phone] 09/26/2017 4:00 PM Moriah Tobar APRN [facility] [place] [phone] Future Appointments Date Time Provider Department Center 09/10/2017 3:30 PM Isabel Hicks MD [facility] 09/13/2017 11:00 AM Taye Lagos, PhD Ru Psych 5D Behavorial H 09/26/2017 12:00 PM LETTY ORNAMENTAL RAIL INSTALLER [facility] 09/26/2017 4:00 PM Moriah Tobar APRN [facility] Primary Care Provider: Rosy Tavarez APRN [facility] / [facility]* [phone] Discharge References/Attachments None documented in this encounter Discharge Instructions * Discharge Instructions* Dawood Oliva - 08/31/2017 10:50 PM EDT * Patient Instructions* Kelsie Casas MD - 09/01/2017 9:47 AM EDT You were admitted to the neurology service at [facility]. Your diagnosis: Migraine Your Medications New Medications Dose Details hydrOXYzine 25 mg Cap Commonly known as: VISTARIL Take 1 capsule by mouth 2 times daily. Take 2xday for 1 week, then as needed 1-2 times a day 25 mg Quantity: 30 capsule Refills: 12 naproxen 500 mg Tab Commonly known as: NAPROSYN Take 1 tablet by mouth 2 times daily (with meals). Take 2xday for 1 week, then as needed 500 mg Quantity: 60 tablet Refills: 12 Continued medications, unchanged Dose Details acetaminophen 500 mg Tab Commonly known as: TYLENOL Take 2 tablets by mouth every 6 hours as needed for Pain. 1000 mg Quantity: 30 tablet Refills: 1 blood sugar diagnostic strips Strp Test blood glucose 4 times daily. Salas Metrix self monitoring Blood Glucose strips E11.9 Quantity: 400 each Refills: 3 Blood-Glucose Meter [facility] Please dispense Salas Metrix meter. E11.9 Quantity: 1 each Refills: 0 Cholestyramine-Aspartame 4 gram Pwpk Commonly known as: cholestyramine light Take 1 packet by mouth 2 times daily. 1 packet Quantity: 180 packet Refills: 3 fexofenadine 180 mg Tab Commonly known as: SHELBI Take 1 tablet by mouth daily as needed. 180 mg Quantity: 90 tablet Refills: 3 gabapentin 100 mg Cap Commonly known as: NEURONTIN Take 1 capsule by mouth 3 times daily. 100 mg Quantity: 90 capsule Refills: 3 glucose 4 gram Chew Commonly known as: DEX4 GLUCOSE Take 4 tablets by mouth as needed for Low blood sugar. 16 g Quantity: 90 tablet Refills: 11 * lancets 28 gauge Misc Commonly known as: LANCETS,THIN 1 each by Misc.(Non-Drug; Combo Route) route 4 times daily. microlet lancets 1 each Quantity: 400 each Refills: 3 * lancets Misc Commonly known as: MICROLET LANCET 1 each by Misc.(Non-Drug; Combo Route) route 4 times daily. 1 each Quantity: 100 each Refills: 12 meclizine 25 mg Tab Commonly known as: ANTIVERT Take 1 tablet by mouth 3 times daily as needed. 25 mg Quantity: 90 tablet Refills: 0 omeprazole 40 mg Cpdr Commonly known as: PriLOSEC Take 1 capsule by mouth daily. 40 mg Quantity: 30 capsule Refills: 11 RELPAX 20 mg Tab 20 MG = 1 Tablet(s), PO, PRN Generic drug: eletriptan Refills: 0 * Notice: This list has 2 medication(s) that are the same as other medications prescribed for you. Read the directions carefully, and ask your doctor or other care provider to review them with you. Patient Instructions: ??? Call your doctor or seek medical attention if you have ??? weakness or numbness in your face or one of your limbs or difficulty speaking ??? loss of vision ??? seizures or loss of consciousness ??? Diet: we recommend a heart healthy diet: low fat, low cholesterol, low concentrated sweets. ??? Activity Restrictions: none ??? Driving Restrictions: none ??? Home oxygen therapy: none needed ??? Anticoagulation Follow-up and Instructions: none FOLLOWUP APPOINTMENT: You will have an outpatient followup appointment in the neurology clinic at [facility]. If not already listed in this document, we will contact you to schedule this appointment. -- If 1 week passes by after you are discharged and you still do not have an appointment, please call [phone]. Future Appointments and Orders Future Appointments Provider Department Dept Phone 09/10/2017 3:30 PM Isabel Hicks MD [facility] at [place] [phone] 09/13/2017 11:00 AM Taye Lagos, PhD [facility] [place] [phone] 09/26/2017 12:00 PM HBTS, ORNAMENTAL RAIL INSTALLER [facility] [place] [phone] 09/26/2017 4:00 PM Moriah Tobar APRN [facility] [place] [phone] documented in this encounter Medications at Time of Discharge Medication Sig Dispensed Refills Start Date End Date acetaminophen (TYLENOL) 500 mg TabletIndications:Pa in, chest wall Take 2 tablets by mouth every 6 hours as needed for Pain. 30 tablet 1 03/12/2017 glucose (DEX4 GLUCOSE) 4 gram Tablet, Chewable Take 4 tablets by mouth as needed for Low blood sugar. 90 tablet 11 11/07/2016 VICTOZA 2-SHANA 0.6 mg/0.1 mL (18 mg/3 mL) Pen Injector Inject 1.8 mg subcutaneously every morning. 08/30/2017 02/09/2021 naproxen (NAPROSYN) 500 mg Tablet Take 1 tablet by mouth 2 times daily (with meals). Take 2xday for 1 week, then as needed 60 tablet 12 09/01/2017 09/05/2017 hydrOXYzine (VISTARIL) 25 mg Capsule Take 1 capsule by mouth 2 times daily. Take 2xday for 1 week, then as needed 1-2 times a day 30 capsule 12 09/01/2017 09/05/2017 gabapentin (NEURONTIN) 100 mg Capsule Take 1 capsule by mouth 3 times daily. 90 capsule 3 05/08/2017 02/09/2021 omeprazole (PRILOSEC) 40 mg Capsule, Delayed Release(E.C.) Take 1 capsule by mouth daily. 30 capsule 11 04/29/2017 10/07/2017 blood sugar diagnostic strips StripIndications:Venus betes mellitus without complication Test blood glucose 4 times daily. Salas Metrix self monitoring Blood Glucose strips E11.9 400 each 3 04/29/2017 02/09/2021 lancets (MICROLET LANCET) Misc 1 each by Misc.(Non-Drug; Combo Route) route 4 times daily. 100 each 12 04/29/2017 02/09/2021 colesevelam (WELCHOL) 625 mg Tablet Take 2 tablets by mouth 2 times daily (with meals) for 30 days. 120 tablet 04/18/2017 10/15/2017 Cholestyramine-Aspar tame (CHOLESTYRAMINE LIGHT) 4 gram Powder in PacketIndications:Hy pertriglyceridemia Take 1 packet by mouth 2 times daily. 180 packet 3 04/09/2017 09/05/2017 Blood-Glucose Meter MiscIndications:Diab etes mellitus without complication Please dispense Salas Metrix meter. E11.9 1 each 01/22/2017 02/09/2021 lancets (LANCETS,THIN) 28 gauge Misc 1 each by Misc.(Non-Drug; Combo Route) route 4 times daily. microlet lancets 400 each 3 12/28/2016 10/15/2017 fexofenadine (SHELBI) 180 mg TabletIndications:Se asonal allergic rhinitis due to pollen Take 1 tablet by mouth daily as needed. 90 tablet 3 11/15/2016 02/09/2021 meclizine (ANTIVERT) 25 mg TabletIndications:Ve rtigo Take 1 tablet by mouth 3 times daily as needed. 90 tablet 11/15/2016 02/09/2021 eletriptan (RELPAX) 20 mg tablet 20 MG = 1 Tablet(s), PO, PRN 11/28/2006 09/05/2017 documented as of this encounter Progress Notes * Madelin Reaves RN - 09/01/2017 2:17 PM EDT IV removed, site benign. My assessment remains unchanged from my previous assessment. Patient denies chest pain or SOB. Discussed pain management. Patient medicated before discharge. Patient has all belongings and has received discharge summary. Summary reviewed and all questions answered. Patient e ncouraged to call with any further questions or concerns. Patient discharged to home with significant other. Discharge packet and prescriptions sent home with patient. No VNA ordered. Pt educated to call if symptoms arise. Home Victoza medication returned to pt prior to discharge * Bety Cui RN - 09/01/2017 9:39 AM EDT Pt A+O X4, neuro check benign and VSS. Down to MRI this morning around 0800, unable to get MRI due to jossy piercing in R ear. Will retry later today. Will continue to monitor and help reach D/C goals. * Barrie West MD - 09/01/2017 3:37 AM EDT General Neurology Progress Note Patient Name: Emma Min Admit Date: 08/31/2017 Attending: Billy Oneal MD Patient ID: Emma Min is a 37 y.o. right-handed female with past medical history significant for migraines, GERD, type 2 diabetes (uncontrolled) anxiety and depression, who presents to the emergency department for further evaluation regarding possible seizures. Active Hospital Problems Diagnosis ??? Seizure-like activity Resolved Hospital Problems Diagnosis Date Resolved No resolved problems to display. Interval History: Admitted to neurology floor level of care No acute events overnight Subjective: Patient continues with a headache this morning that is frontal temporal in nature. She knows that her headache is currently at 5/[address] that [address] since last night. Otherwise denies nausea, photophobia at this current time. Physical Exam: Vitals: Temp: [36.6 ??C (97.9 ??F)-36.7 ??C (98.1 ??F)] Heart Rate: [51-76] Resp: [15-22] BP: (92-120)/(43-70) SpO2: [95 %-100 %] Heart Rate from SPO2: [50 bpm-79 bpm] Gen: Patient of apparent stated age, well nourished, well developed, awake, alert, NAD, laying in bed at the time of the assessment Neck: Supple, no meningismus, no carotid bruit, no occipital tenderness noted on palpation Ext: No edema. No bony deformity Neuro Exam: MS: AAOx4, clear language, no dysarthria, follows commands appropriately CN: PERRL, EOMI, visual interiano full Facial sensation intact, no facial asymmetry Hearing intact to voice Palate elevates symmetrically, tongue protrudes midline SCM and trap strength intact Motor: Normal bulk and tone. UE: 5/5 R, 5/5 L Arm abduction at shoulder 5/5 R, 5/5 L Elbow extension 5/5 R, 5/5 L Elbow flexion 5/5 R, 5/5 L Rental Sales Agent LE: 5/5 R, 5/5 L Hip flexion 5/5 R, 5/5 L Knee extension 5/5 R, 5/5 L Knee flexion 5/5 R, 5/5 L Foot dorsiflexion 5/5 R, 5/5 L Foot plantar flexion Sensation: Intact to light touch, temperature, and vibration throughout Reflexes: DTRs not assessed this morning Toes - R down, L down Coordination: Finger to nose intact, no dysmetria Gait: Not assessed Labs: No results found for this or any previous visit (from the past 24 hour(s)). Diagnostic Tests and Imaging: EEG 08/31/2017 INTERPRETATION: This EEG is normal during the awake and sleep states as well as during the activation procedures of hyperventilation and photic stimulation. CLINICAL CORRELATION: Normal awake and asleep study. ??No epileptiform activity. ??A normal EEG does not exclude epilepsy. Medications: ??? gabapentin 100 mg Oral TID ??? pantoprazole 40 mg Oral Daily ??? sodium chloride 0.9 % 5 mL Intravenous BID ??? enoxaparin 40 mg Subcutaneous Nightly ??? docusate sodium 100 mg Oral BID Assessment and Plan: Emma Min is a 37 y.o. right-handed female with past medical history significant for migraines, GERD, type 2 diabetes (uncontrolled) anxiety and depression, who presents to the emergency department for further evaluation regarding possible seizures. ?? EEG was ordered, completed, and noted to be normal. She is pending MRI, and if this is normal we will discharge her home. As she is currently having continued migraines we will discharge her home on naproxen and Vistaril. Patient has been informed of this plan. ?? Plan: ?? Seizure versus convulsive syncope versus migraine -Continue -observation-floor level of care -EEG completed -MRI brain with and without contrast, seizure protocol (per radiology provider- seizure protocol MRImay not be needed) -Benadryl given ED -Toradol 30 mg every 6 hours as needed -Compazine 10 mg every 6 hours #Migraines -discharge home with naproxen 550 mg BID for 1 week then as needed thereafter -Discharge home with Vistaril 25 mg twice daily for 1 week then as needed thereafter #Type 2 diabetes -Hold all meds -Insulin sliding scale while inpatient ?? #Housekeeping Home gabapentin 100 mg 3 times daily ?? DVT prophylaxis: Enoxaparin 40 mg nightly -GI prophylaxis pantoprazole 40 mg daily ?? CODE STATUS: Full code ?? Barrie West MD Neurology Resident - PGY-2 General Neurology Team Pager #[phone] 09/01/17 who Barrie West MD Neurology Resident - PGY-2 General Neurology Team Pager #[phone] 09/01/17 * Sindy Heard RN - 09/01/2017 3:00 AM EDT Pt arrived A&Ox4 via stretcher from ED for seizure observation. Pt c/o mild HATCH, no CP, SOB, or N/V. Pt reports abdominal tenderness from extreme vomiting a few days ago but no other pain. Neuro intact. VSS. See doc flow sheet for full assessment. Seizure pads set up, SCDs placed. Pt oriented toroom and call gale. Friend at bedside. documented in this encounter H&P Notes * Barrie West MD - 08/31/2017 6:56 PM EDT General Neurology Consult Note Patient name: Emma Min Date of : 1980 PCP: Rosy Tavarez APRN CC: Seizure-like activities with prodrome symptoms today concerning for possible upcoming seizure activity HPI: Emma Min is a 37 y.o. right-handed female with past medical history significant for migraines, GERD, type 2 diabetes (uncontrolled) anxiety and depression, who presents to the emergency department for further evaluation regarding possible seizures. as per d provider notes most recently that Saturday she had a migraine, nausea and got better on . The Saturday headache happened suddenly and the nausea was with it. She was not feeling well later on and she was noted to have seizures and vomiting for an hour after the seizures.She notes she was in her car and passed out and was told by her coworkers that she was shaking, with contorted face, and shaking of her body when she went limp. She notes that she believe Benoit went to the [place] ED for seizures that were negative at that time. Possible Chiari malformation. It was reported as a syncopal episodes. She saw her PCP and referral to neurology was made. Today she's had a headache that has been more severe, with nausea that appears to be similar to follow any speaking typical migraines. Her concern is that this might be a seizure. Of note the patient was seen in our neurology clinic by Dr. Robbin Costa, for syncope and vertigo. During that visit it was recommended that she increase her salt and fluid intake, as well as wear compression stockings, for her syncope. For vertigo she was instructed to continue on meclizine and Jessica maneuvers as needed. Onset & Progression patient notes she has had episodes of syncope for a long time but cannot identify an exact date. No since she been seen multiple times and had multiple workups for this. Semiology: She notes that prior to her passing out events she gets a loud ringing in her ears that keeps getting louder, her vision starts to come in on her, and she feels extremely warm before she passes out. Notes that her heart is racing right before it comes on. Notes that afterward she is extremely groggy and tired for close to a day and a half. Triggers: She is not aware of any triggers but notes that in the past it was assumed that it was due to her fluctuating blood glucose levels History of Status Epilepticus: [] Denies Tongue biting: [] Denies Incontinence: [] Notes that she did not have an episode of incontinence to last year with 1 of her passing out episodes Post-ictal psychosis: [] Denies Risk factors for epilepsy: Head trauma: [] Denies Meningoencephalitis: [] Denies complications: [] Denies Complex febrile seizures: [] Denies Family history of epilepsy: [] Denies Risk factors for nonepileptic seizures: (History negative for greater than three seizures types, pre-ictal headache, ictal eye closure, ictal crying, multiple AEDs, seizures greater than 5 minutes, prior psych treatment, hx of sz in close friend/relative, h/o suicide attempt, greater than 12 drinks per week, fibromyalgia, malpractice lawsuit, sexual or physical abuse) Current AEDS: Has never been on any antiepileptic medication Recent Levels: N/A Past AEDs: NA Psychiatric History: Anxiety and depression Past Medical History: Past Medical History: Diagnosis Date ??? Allergic state ??? Anxiety ??? Depression Medications: (Not in a hospital admission) Allergies Allergen Reactions ??? Latex ??? Other [Unclassified Drug] Anaphylaxis Any type of anti-depressant. ??? Paroxetine Hcl CIS - Edema ??? Lactose Family History Problem Relation Age of Onset [...] Neg Hx ??? Heart Disease Neg Hx Social History Social History Narrative 1 cig every 3 or 4 days. 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 Living situation: [facility] lives with roommate and two children Review of systems: Constitutional: No fevers or chills Eyes: No vision changes, no diplopia, no blurry vision ENT: No rhinorrhea or pharyngitis, no meningismus CV: No chest pain or palpitations Resp: No cough, no shortness of breath GI: No nausea, vomiting, diarrhea or constipation : No dysuria, no incontinence Heme: No bleeding or bruising Endo: No diabetes or thyroid disease Neuro: See HPI Psych: No depression, abnormal sleep [x] Review of systems otherwise negative Physical Exam: Vitals: Temp: [36.7 ??C (98.1 ??F)] Heart Rate: [61] Resp: [18] BP: (120)/(70) SpO2: [100 %] Heart Rate from SPO2: -- Gen: Patient of apparent stated age, well nourished, well developed, awake, alert, NAD Neck: Supple, no meningismus, no carotid bruit, no occipital tenderness CV: + S1, S2, RRR, no murmur Resp: CTA B/L Abd: +normoactive bowel sounds, soft, nontender, nondistended Ext: No edema. No bony deformity Neuro Exam: MS: AAOx4, clear language, no dysarthria, follows commands appropriately CN: PERRL, EOMI, visual interiano full Facial sensation intact, no facial asymmetry Hearing intact to voice Palate elevates symmetrically, tongue protrudes midline SCM and trap strength intact Motor: Normal bulk and tone. UE: 5/5 R, 5/5 L Arm abduction at shoulder 5/5 R, 5/5 L Elbow extension 5/5 R, 5/5 L Elbow flexion 5/5 R, 5/5 L Rental Sales Agent LE: 5/5 R, 5/5 L Hip flexion 5/5 R, 5/5 L Knee extension 5/5 R, 5/5 L Knee flexion 5/5 R, 5/5 L Foot dorsiflexion 5/5 R, 5/5 L Foot plantar flexion Sensation: Intact to light touch, temperature, and vibration throughout Reflexes: DTRs 2+ R, 2+ L Biceps 2+ R, 2+ L Brachioradialis 2+ R, 2+ L Triceps 2+ R, 2+ L Patellar 2+ R, 2+ L Achilles tendon Toes - R down, L down Coordination: Finger to nose intact, no dysmetria Rapid alternating movements & finger tapping smooth and symmetric Heel-viveros intact No tremor Gait: Not assessed Labs: No results found for this or any previous visit (from the past 24 hour(s)). Diagnostic Tests and Imaging: EEG ordered and performed-final read pending Assessment: Emma Min is a 37 y.o. right-handed female with past medical history significant for migraines, GERD, type 2 diabetes (uncontrolled) anxiety and depression, who presents to the emergency department for further evaluation regarding possible seizures. EEG was ordered as this was part of her recommended workup in the past. Nonetheless, there was a question of chairi 1 malformation, and the patient continues with headaches which now had at least 1 hour of vomitus. I think it would be worthwhile to get an MRI brain to look for any possible structural abnormalities in the brain. The patient will be admitted. Plan: Seizure versus convulsive syncope versus migraine -Admit to Neurology -observation-floor level of care -EEG this ED visit -MRI brain with and without contrast, seizure protocol -Continue IV fluids normal saline 0.9% -Benadryl given ED -Toradol 30 mg every 6 hours as needed -Compazine 10 mg every 6 hours #Housekeeping Home gabapentin 100 mg 3 times daily DVT prophylaxis: Enoxaparin 40 mg nightly -GI prophylaxis pantoprazole 40 mg daily CODE STATUS: Full code Barrie West MD Neurology Resident - PGY-2 General Neurology Team Pager #[phone] 09/01/17 Associated attestation - Billy Oneal MD - 09/01/2017 12:06 PM EDT I have seen and examined Emma Min with the neurology team on 09/01/2017 and agree with the assessment and plan as below. Migraine headaches. 37 Y F with history of migraines admitted with migraines + ? Seizure /syncope type spells Clinically stable in AM. Headache persists EEG normal. MRI pending. Discharge home after MRI. F/up outpatient clinic. Headache clinic Billy Oneal MD Department of Neurology [facility] documented in this encounter Procedure Notes * Shaun Coleman MD - 08/31/2017 8:42 PM EDTAssociated Order(s): EEG AWAKE, ASLEEP, DROWSY [facility] Department of Neurology Inpatient EEG Report Name of the Patient: Emma Min Date of : 1980 Date of Service: 08/31/2017 Referring physician: Dawood Oliva M.D. BRIEF HISTORY: Emma Min is a 37 y.o. year old patient with possible seizures. MEDICATIONS: Current Facility-Administered Medications Medication Dose Route Frequency Provider Last Rate Last Dose ??? prochlorperazine (COMPAZINE) tablet 10 mg 10 mg Oral Q6H PRN Dawood Oliva MD 10 mg at 08/31/17 5177 Current Outpatient Prescriptions Medication Sig Dispense Refill ??? gabapentin (NEURONTIN) 100 mg Capsule Take 1 capsule by mouth 3 times daily. 90 capsule 3 ??? omeprazole (PRILOSEC) 40 mg Capsule, Delayed Release(E.C.) Take 1 capsule by mouth daily. 30 capsule 11 ??? blood sugar diagnostic strips Strip Test blood glucose 4 times daily. Salas Metrix self monitoring Blood Glucose strips E11.9 400 each 3 ??? lancets (MICROLET LANCET) Misc 1 each by Misc.(Non-Drug; Combo Route) route 4 times daily. 100 each 12 ??? Cholestyramine-Aspartame (CHOLESTYRAMINE LIGHT) 4 gram Powder in Packet Take 1 packet by mouth 2 times daily. 180 packet 3 ??? acetaminophen (TYLENOL) 500 mg Tablet Take 2 tablets by mouth every 6 hours as needed for Pain.30 tablet 1 ??? Blood-Glucose Meter Misc Please dispense Salas Metrix meter. E11.9 1 each 0 ??? lancets (LANCETS,THIN) 28 gauge Misc 1 each by Misc.(Non-Drug; Combo Route) route 4 times daily. microlet lancets 400 each 3 ??? fexofenadine (SHELBI) 180 mg Tablet Take 1 tablet by mouth daily as needed. 90 tablet 3 ??? meclizine (ANTIVERT) 25 mg Tablet Take 1 tablet by mouth 3 times daily as needed. 90 tablet 0 ??? glucose (DEX4 GLUCOSE) 4 gram Tablet, Chewable Take 4 tablets by mouth as needed for Low blood sugar. 90 tablet 11 ??? eletriptan (RELPAX) 20 mg tablet 20 MG = 1 Tablet(s), PO, PRN METHODS: A 21 channel digitized electroencephalogram was performed in the [facility]. The 10/20 international system of electrode placement was used and bipolar and referential electrode montages were recorded. In addition to EEG the patient was monitored for EKGand lateral/vertical eye movements. Video was recorded during the session. The duration of the recording was 30 minutes. OFFICE SECRETARY'S REPORT: Performed by: SB Patient was not sleep deprived. Sleep was attained. Photic stimulation was performed. Hyperventilation was performed. Effort was was adequate. Movement and other artifact was not significant. Comments:NA ELECTROENCEPHALOGRAPHER'S REPORT: Background During the awake state with the eyes closed the background consisted of a normal amplitude, 10 Hz posterior reactive rhythm that attenuated appropriately with eye opening. Beta activity was distributed diffusely with an anterior predominance. There was a normal anterior-posterior voltage gradient. With eye opening the background activity changed to a low voltage mixture of alpha, beta, and occasional theta range frequencies. There were no significant asymmetries of background activity noted. Sleep Stage II sleep was obtained. Hyperventilation Hyperventilation did not result in diffuse slowing of the background activity. Photic Stimulation Photic stimulation using a step-nichole increase in photic frequency varying from 1-21 Hertz resulted in driving from 5-21 hz but no abnormalities. Abnormal Activity None EKG EKG revealed normal sinus rhythm. PRIOR EEG: No previous EEG reports were available. INTERPRETATION: This EEG is normal during the awake and sleep states as well as during the activation procedures ofhyperventilation and photic stimulation. CLINICAL CORRELATION: Normal awake and asleep study. No epileptiform activity. A normal EEG does not exclude epilepsy. Michael Chau MD Epilepsy Fellow #[id number] 08/31/2017 8:56 PM. I reviewed the EEG and I agree with the interpretation as written. Shaun Coleman MD documented in this encounter ED Notes * Stephen Wang MD - 08/31/2017 5:50 PM EDT Brief Attending Note: I saw Emma Min in conjunction with Dr. Oliva. Please see their note for further details. Briefly, 37 y.o. female presents with headache, altered mental status and numbness. She has historyof migraine. On August 28 she had a typical migraine with nausea. On August 29 she had another sudden onset headach, had a syncopal episode and friends reported had jerking and urinary incontinence with that. She had an episode of vomiting afterwards and was taken to [facility]. At that point in time she had a normal glucose, head CT that was reportedly normal and subsequently discharged home. On the she was seen by her primary care provider and referred to neurology. Today, she presents with migraine symptoms, diaphoresis hand and tongue numbness. No recent trauma, illness, drug use. She has had 3 headaches in the past month but otherwise has been feeling at her baseline until August 28. The review of systems is negative other than items noted in the HPI. I reviewed the past medical history, medications, and allergies in Epic. On exam the patient was in no acute distress with no focal neurologic deficits. Her heart was regular rate, lungs clear, abdomen soft Records reviewed from [facility]. CT scan report was reviewed. Our labs reviewed. Given the symptomatology and progression, we consulted the neurology service for possible seizures. She received an EEG and was admitted as an observation status on the neurology team. MD Felipe Hanson Matthew A, MD 09/03/17 1525 * Dawood Oliva - 08/31/2017 4:24 PM EDT Emma Min is an 37 y.o. female who presents to the ED with: Chief Complaint Patient presents with ??? Headache ??? Altered Mental Status ??? Numbness I saw this patient 08/31/2017 at ~ 4:24 PM [facility] Emma Min is a 37 y.o. female with a PMH significant for GERD, DMT2, depression, anxiety, who presents to the Emergency Department with headache, AMS, numbness. Patient reports that she had a migraine on Saturday night, with nausea and headache. She reports that this is consistent with her history of migraine. She went to work on morning. Reports that her migraine symptoms are improved, but when she went to the bathroom she felt like she is going to pass out, and had ringing inher ears. She reports that she had an episode in the bathroom where she passed out, and bystanders reported jerking movements, that her mouth was weird. She reports that she was incontinent of urine, and vomited afterwards. She reported that this happened a second time shortly after. She reports that there is a period of time during these events that she could not remember immediately after theperiods of jerking movements. Patient reports that she has had seizures for years, and has seen neurology here at [facility] in the past. She denies any current medication management or diagnosis related to this. She reports that she has had similar episodes in the past that she has associated with hypoglycemia. After these events on , she was seen in the emergency department in [place], and was discharged with a diagnosis of syncope. The patient was seen by her PCP here at [facility] on Saturday, and a referral was placed to neurology for follow-up. Today, the patient reports that she had another migraine, her heart was racing, she felt diaphoretic, had numbness in her hands and her tongue, witha metallic taste in her mouth, and was concerned that she is going to have recurrent episodes of seizure-like activity. Patient reports that she smokes 1 cigarette per day, is a rare drinker of alcoho l. She denies any fevers, chills, or recent illness. She reports that she has generally felt well and recent weeks until Saturday when she developed her initial migraine. She reports that her blood sugars have been well controlled recently. Review of Systems: Review of Systems Constitutional: Negative for chills and fever. HENT: Negative for congestion, hearing loss and rhinorrhea. Eyes: Negative for visual disturbance. Respiratory: Negative for cough and shortness of breath. Cardiovascular: Negative for chest pain. Gastrointestinal: Negative for abdominal distention, abdominal pain, constipation, diarrhea and nausea. Endocrine: Negative for cold intolerance and heat intolerance. Genitourinary: Negative for dysuria and hematuria. Musculoskeletal: Negative for arthralgias and myalgias. Skin: Negative for rash and wound. Allergic/Immunologic: Negative for environmental allergies. Neurological: Positive for seizures, syncope, light-headedness and headaches. Negative for dizziness, tremors, speech difficulty, weakness and numbness. Patient Vitals for the past 8 hrs: BP Temp Temp src Pulse Resp SpO2 08/31/17 1541 120/70 36.7 ??C (98.1 ??F) Oral 61 18 100 % I have reviewed the vital signs, which demonstrates normal vitals for a 37-year-old woman Physical Exam: Physical Exam Constitutional: She is oriented to person, place, and time. She appears well- developed and well-nourished. No distress. HENT: Head: Normocephalic and atraumatic. Right Ear: External ear normal. Left Ear: External ear normal. Nose: Nose normal. Mouth/Throat: Oropharynx is clear and moist. No oropharyngeal exudate. Eyes: Conjunctivae and EOM are normal. Pupils are equal, round, and reactive to light. Right eye exhibits no discharge. Left eye exhibits no discharge. No scleral icterus. Neck: Normal range of motion. Neck supple. No JVD present. No tracheal deviation present. Cardiovascular: Normal rate, regular rhythm and intact distal pulses. Exam reveals no gallop and nofriction rub. No murmur heard. Pulmonary/Chest: Effort normal and breath sounds normal. No respiratory distress. She has no wheezes. She has no rales. She exhibits no tenderness. Abdominal: Soft. Bowel sounds are normal. She exhibits no distension and no mass. There is no tenderness. There is no rebound and no guarding. Musculoskeletal: Normal range of motion. She exhibits no edema, tenderness or deformity. Neurological: She is alert and oriented to person, place, and time. She has normal reflexes. No cranial nerve deficit. Coordination normal. Skin: Skin is warm and dry. No rash noted. She is not diaphoretic. No erythema. No pallor. Psychiatric: She has a normal mood and affect. Nursing note and vitals reviewed. ED Course: - Patient was evaluated and discussed with Dr. Wang - Medications, allergies, past medical history, surgical history, family history, and social history were reviewed ED Course: - Medications and fluid administered: Benadryl, Compazine, ibuprofen, Zofran - I have reviewed lab results, which are significant for: none - I have reviewed imaging, which is significant for: EEG - I have reviewed EKG results, which is significant for: none - I performed the following procedure(s): none Assessment and Plan: MDM: 37 y.o. female who presents for altered mental status, migraine. The differential diagnosis includes but is not limited to stroke/TIA, seizure, syncope, migraine. There were no specific neurologic deficits noted in HPI or on exam, making stroke/TIA less of a concern. Head CT done in [place] did not show any acute findings, which would make stroke somewhat less likely. The patient's history of possible prior seizures increases the concern for this etiology. Repo rted urinary incontinence would also tend to support seizure. Migraine may also be playing a role in this patient's recent history. Undifferentiated syncope would be a diagnosis of exclusion, but hasbeen noted on several prior workups. Based on concern for seizure, neurology was consulted to see the patient. They recommended a spot EEG in the emergency department. This study was completed, please see neurology notes for interpretation. Neurology recommended that the patient be admitted for further workup. Patient was hemodynamically stable and within normal limits while in the ED. They reported improvement in symptoms with ED interventions and reported that they were comfortable with disposition and follow up plan. Plan: -Admit to neurology Dawood Oliva MD Resident 09/01/17 0133 Dawood Oliva MD Resident 09/09/17 1451 Associated attestation - Stephen Wang MD - 09/09/2017 4:48 PM EDT ED ATTENDING ATTESTATION NOTE The patient was seen in conjunction with the resident physician. I have independently performed thekey portions of the history and physical exam. I have personally reviewed nursing notes, vital signs, and diagnostic studies including labs, imaging studies and EKGs. I have discussed the details of the case with the resident and agree with the assessment and plan as described in the resident's note. documented in this encounter Miscellaneous Notes * ED Triage - Shannan Sutton RN - 08/31/2017 3:37 PM EDT Pt reports m/c including fast heart rate, H/A, seizures, LOC's seen at OSH, nausea, n/t to left hand. Pt is alert and orientated x3 skin is w/p/d. Pt reports several seizures 2 days prior with 2 episodes of LOC told pt at OSH she had a syncopal episode after testing documented in this encounter Plan of Treatment Upcoming Encounters Date Type Department Care Team (Late st Contact Info) Description 12/03/2024 1:00 PM EDT Appointment Hematology [place] [address] 12/03/2024 2:00 PM EDT Office Visit Hematology [place] [address] Pelon Wisdom MD [facility] [address] [place] [address] Oksana Payne APRN [facility] [place] [address] documented as of this encounter Procedures Procedure Name Priority Date/Time Associated Diagnosis Comments POCT GLUCOSE Routine 09/01/2017 1:00 PM EDT MRI BRAIN WWO CONTRAST (GENERIC) Routine 09/01/2017 12:57 PM EDT ZEEG AWAKE, ASLEEP, DROWSY Routine 09/01/2017 9:36 AM EDT EKG 12-LEAD Routine 09/01/2017 6:44 AM EDT Seizure-like activity HEMOGRAM Routine 09/01/2017 3:27 AM EDT DIFFERENTIAL, AUTOMATED Routine 09/01/2017 3:27 AM EDT APTT Routine 09/01/2017 3:27 AM EDT PROTHROMBIN TIME Routine 09/01/2017 3:27 AM EDT CBC (WITH DIFF) Routine 09/01/2017 3:27 AM EDT MAGNESIUM Routine 09/01/2017 3:27 AM EDT CALCIUM Routine 09/01/2017 3:27 AM EDT HEPATIC FUNCTION PANEL Routine 09/01/2017 3:27 AM EDT BASIC METABOLIC PANEL Routine 09/01/2017 3:27 AM EDT EKG 12-LEAD STAT 08/31/2017 5:33 PM EDT ED INFORMATION EXCHANGE Routine 08/31/2017 3:19 PM EDT documented in this encounter Results * POCT Glucose (09/01/2017 1:00 PM EDT) Glucose, POC 175 65 - 199 mg/dL [facility] Comment: Supplemental ranges: <140 mg/dL before meals <180 mg/dL all other times of the day Blood specimen (specimen) 09/01/2017 1:00 PM EDT 09/01/2017 1:00 PM EDT Billy Oneal MD POINT OF CARE TEST O RDERABLES [facility] [place] [address] * MRI Brain wwo Contrast (Generic) (09/01/2017 12:57 PM EDT) Anatomical Region Laterality Modality Head Magnetic Resonan ce Impressions 09/01/2017 2:45 PM EDT Essentially normal examination. Few nonspecific T2 hyperintensities in the frontal white matter without associated abnormal enhancement or mass effect. Narrative 09/01/2017 2:45 PM EDT EXAMINATION: MRI BRAIN WWO CONTRAST (GENERIC) CLINICAL HISTORY: Patient with recurrent episodes of syncope vs seizures with last 2 involving urinary incontinence. ??Documented episodes of syncope in the past TECHNIQUE: Brain MRI without and with contrast material. 15 cc dotarem COMPARISON: Head CT dated 08/29/2017 FINDINGS: No restricted diffusion to suggest an acute infarct. There is a single focus of T2 prolongation left frontal white matter image 16 series 6. Smaller focus is seen in the right frontal white matter image 15 series 6. There is otherwise normal signal characteristics the brain parenchyma. No mass, mass effect, midline shift or extra-axial fluid collection. No ventriculomegaly. There is no mass or abnormal enhancement post gadolinium. Skull base soft tissues and orbits are unremarkable. Procedure Note Dixon Coy MD - 09/01/2017 EXAMINATION: MRI BRAIN WWO CONTRAST (GENERIC) CLINICAL HISTORY: Patient with recurrent episodes of syncope vs seizureswith last 2 involving urinary incontinence. Documented episodes of syncope inthe past TECHNIQUE: Brain MRI without and with contrast material. 15 cc dotarem COMPARISON: Head CT dated 08/29/2017 FINDINGS: No restricted diffusion to suggest an acute infarct. There is a single focus of T2 prolongation left frontal white matter image16 series 6. Smaller focus is seen in the right frontal white matter image15 series 6. There is otherwise normal signal characteristics the brainparenchyma. No mass, mass effect, midline shift or extra-axial fluid collection. No ventriculomegaly. There is no mass or abnormal enhancement postgadolinium. Skull base soft tissues and orbits are unremarkable. IMPRESSION Essentially normal examination. Few nonspecific T2 hyperintensities inthe frontal white matter without associated abnormal enhancement or masseffect. 2:45 PM Billy Oneal MD IM MRI ORDERABLES * EEG awake, asleep, drowsy, routine (09/01/2017 9:36 AM EDT) Narrative Shaun Coleman MD - 09/01/2017 9:36 AM EDT Shaun Coleman MD ? 09/01/2017 ??9:36 AM [facility] [place] of Neurology Inpatient EEG Report Name of the Patient: ??Emma Min Date of : ?1980 Date of Service: ?08/31/2017 Referring physician: ?Dawood Oliva M.D. BRIEF HISTORY: Emma Min is a 37 y.o. year old patient with possible seizures. MEDICATIONS: Current Facility-Administered Medications Medication Dose Route Frequency Provider Last Rate Last Dose ? ? prochlorperazine (COMPAZINE) tablet 10 mg ??10 mg Oral Q6H PRN Dawood Oliva MD ?? 10 mg at 08/31/17 1656 Current Outpatient Prescriptions Medication Sig Dispense Refill ? ? gabapentin (NEURONTIN) 100 mg Capsule Take 1 capsule by mouth 3 times daily. 90 capsule 3 ? ? omeprazole (PRILOSEC) 40 mg Capsule, Delayed Release(E.C.) Take 1 capsule by mouth daily. 30 capsule 11 ? ? blood sugar diagnostic strips Strip Test blood glucose 4 times daily. Salas Metrix self monitoring Blood Glucose strips ??E11.9 400 each 3 ? ? lancets (MICROLET LANCET) Misc 1 each by Misc.(Non-Drug; Combo Route) route 4 times daily. 100 each 12 ? ? Cholestyramine-Aspartame (CHOLESTYRAMINE LIGHT) 4 gram Powder in Packet Take 1 packet by mouth 2 times daily. 180 packet 3 ? ? acetaminophen (TYLENOL) 500 mg Tablet Take 2 tablets by mouth every 6 hours as needed for Pain. 30 tablet 1 ? ? Blood-Glucose Meter Misc Please dispense Salas Metrix meter. E11.9 1 each 0 ? ? lancets (LANCETS,THIN) 28 gauge Misc 1 each by Misc.(Non-Drug; Combo Route) route 4 times daily. microlet lancets 400 each 3 ? ? fexofenadine (SHELBI) 180 mg Tablet Take 1 tablet by mouth daily as needed. 90 tablet 3 ? ? meclizine (ANTIVERT) 25 mg Tablet Take 1 tablet by mouth 3 times daily as needed. 90 tablet 0 ? ? glucose (DEX4 GLUCOSE) 4 gram Tablet, Chewable Take 4 tablets by mouth as needed for Low blood sugar. 90 tablet 11 ? ? eletriptan (RELPAX) 20 mg tablet 20 MG = 1 Tablet(s), PO, PRN ?? METHODS: A 21 channel digitized electroencephalogram was performed in the [facility]. The 10/20 international system of electrode placement was used and bipolar and referential electrode montages were recorded. ??In addition to EEG the patient was monitored for EKG and lateral/vertical eye movements. Video was recorded during the session. The duration of the recording was 30 minutes. OFFICE SECRETARY'S REPORT: Performed by: SB Patient was not sleep deprived. Sleep was attained. Photic stimulation was performed. Hyperventilation was performed. Effort was was adequate. Movement and other artifact was not significant. Comments:NA ELECTROENCEPHALOGRAPHER'S REPORT: Background During the awake state with the eyes closed the background consisted of a normal amplitude, 10 Hz posterior reactive rhythm that attenuated appropriately with eye opening. Beta activity was distributed diffusely with an anterior predominance. There was a normal anterior-posterior voltage gradient. With eye opening the background activity changed to a low voltage mixture of alpha, beta, and occasional theta range frequencies. There were no significant asymmetries of background activity noted. Sleep Stage II sleep was obtained. Hyperventilation Hyperventilation did not result in diffuse slowing of the background activity. Photic Stimulation Photic stimulation using a step-nichole increase in photic frequency varying from 1-21 Hertz resulted in driving from 5-21 hz but no abnormalities. Abnormal Activity None EKG EKG revealed normal sinus rhythm. PRIOR EEG: No previous EEG reports were available. INTERPRETATION: This EEG is normal during the awake and sleep states as well as during the activation procedures of hyperventilation and photic stimulation. CLINICAL CORRELATION: Normal awake and asleep study. ??No epileptiform activity. ??A normal EEG does not exclude epilepsy. Michael Chau MD Epilepsy Fellow #[id number] 08/31/2017 8:56 PM. __ I reviewed the EEG and I agree with the interpretation as written. Shaun Coleman MD Stephen Wang MD NEUROLOGY ORDERABL ES * EKG 12 Lead (09/01/2017 6:44 AM EDT) Ventricular rate 69 BPM MUSE SYSTEM Atrial Rate 69 BPM MUSE SYSTEM P-R Interval 136 ms MUSE SYSTEM QRS Duration 96 ms MUSE SYSTEM Q-T Interval 430 ms MUSE SYSTEM QTC Calculated (Bezet) 460 ms MUSE SYSTEM Calculated P Clayton 48 degrees MUSE SYSTEM Calculated R Clayton 46 degrees MUSE SYSTEM Calculated T Clayton 13 degrees MUSE SYSTEM INTERPRETATION Normal sinus rhythm with sinus arrhythmia Normal ECG When compared with ECG of 31-AUG-2017 17:33, (unconfirmed) No significant change was found Although rate has increased Confirmed by MD Stephon, Avelino Mayorga ([id number]) on 09/01/2017 10:25:56 AM MUSE SYSTEM 09/01/2017 6:44 AM EDT 09/01/2017 10:25 AM EDT Stephen Wang MD ECG ORDERABLES MUSE SYSTEM * Differential, Automated (09/01/2017 3:27 AM EDT) Neutrophil % 40.5 % [facility] Neutrophil Absolute 2.62 1.70 - 6.10 x10(3)/[facility] Lymph % 46.0 % [facility] Lymphocytes Abs 3.0 0.9 - 3.2 x10(3)/[facility] Monocyte % 7.3 % [facility] Monocyte Abs 0.5 0.3 - 0.9 x10(3)/[facility] Eos % 5.3 % [facility] Eosinophils Abs 0.3 0.0 - 0.4 x10(3)/[facility] Basophil % 0.6 % [facility] Baso Absolute 0.0 0.0 - 0.1 x10(3)/[facility] Immature Gran % 0.30 % [facility] Comment: Immature granulocytes(IG's)percentage and absolute count will include metamyelocytes, myelocytes, and promyelocytes. Blood smears from CBCs yielding IG's will be scanned manually for concordance. If this scan disagrees with the automated IG or if promyelocytes are noted, a manual differential will be performed. Immature Gran Absolute 0.02 0.00 - 0.04 x10(3)/[facility] Blood specimen (specimen) 09/01/2017 3:27 AM EDT 09/01/2017 3:35 AM EDT Narrative Resulting Agency Comment Spec In Lab Barrie West MD HEMATOLOGY [place] [facility] [place] [address] * (ABNORMAL) Hemogram (09/01/2017 3:27 AM EDT) White Blood Cell 6.5 4.0 - 9.5 x10(3)/[facility] Red Blood Cell 3.51(L) 4.00 - 5.21 x10(6)/[facility] Hemoglobin 12.1 11.7 - 15.5 gm/dL [facility] Hematocrit 34.2(L) 35.7 - 45.8 % [facility] Mean Cell Volume 97.4(H) 82.6 - 94.4 fL [facility] Mean Cell Hemoglobin 34.5(H) 27.1 - 32.0 pg [facility] Mean Cell Hemoglobin Concentration 35.4(H) 31.7 - 35.0 gm/dL [facility] Platelet 201 145 - 357 x10(3)/[facility] RDW Standard Deviation 41.5 37.0 - 46.0 [facility] RDW coefficient of variation 11.7 11.5 - 14.1 % [facility] Mean Platelet Volume 11.2 7.6 - 12.9 [facility] NRBC% auto 0.0 % [facility] NRBC Absolute 0.000 0.000 - 0.000 x10(3)/[facility] Blood specimen (specimen) 09/01/2017 3:27 AM EDT 09/01/2017 3:35 AM EDT Narrative Resulting Agency Comment Spec In Lab Barrie West MD HEMATOLOGY [place] Performing Organization Address City/[facility]/ZIP Co de Phone Number [facility] [place] [address] * APTT (09/01/2017 3:27 AM EDT) Partial Thromboplastin Time 30 25 - 37 sec [facility] Comment: The PTT is NOT appropriate for heparin monitoring. Use the Anti-Xa level for heparin monitoring (HEP UFH) or LMWH monitoring (HEP LMW). A PTT less than 37 seconds generally indicates adequate hemostasis. Blood specimen (specimen) 09/01/2017 3:27 AM EDT 09/01/2017 3:35 AM EDT Narrative Resulting Agency Comment Spec In Lab Stephen Wang MD HEMATOLOGY ORDERAB LES Performing Organization Address [facility] Co de Phone Number [facility] [place] [address] * Prothrombin Time (09/01/2017 3:27 AM EDT) Prothrombin Time 11.3 9.4 - 12.5 sec [facility] International Normalization Ratio 1.0 [facility] Comment: An INR <2.0 indicates adequate procoagulant activity for hemostasis in most patients without underlying bleeding disorders, though the INR may not adequately reflect hemostatic capacity in patients with liver disease and synthetic impairment. The recommended target INR range for therapeutic anticoagulation is 2.0 ? 3.0 for most applications, though lower and higher ranges may be appropriate depending on clinical circumstances. Blood specimen (specimen) 09/01/2017 3:27 AM EDT 09/01/2017 3:35 AM EDT Narrative Resulting Agency Comment Spec In Lab Stephen Wang MD HEMATOLOGY ORDERAB LES Performing Organization Address [facility]/ZIP Co de Phone Number [facility] [place] [address] * (ABNORMAL) Hepatic Function Panel (09/01/2017 3:27 AM EDT) Pathologist [facility] Protein, Total 5.9(L) 6.1 - 8.0 gm/dL [facility] Albumin 3.6 3.2 - 5.2 gm/dL [facility] Aspartate Aminotransferase 12 0 - 30 unit/L [facility] Alanine Aminotransferase 8 0 - 30 unit/L [facility] Alkaline Phosphatase 59 40 - 104 unit/L [facility] Bilirubin, Total 0.4 0.2 - 1.3 mg/dL [facility] Bilirubin, Direct 0.1 0.0 - 0.3 mg/dL [facility] Blood specimen (specimen) 09/01/2017 3:27 AM EDT 09/01/2017 3:35 AM EDT Narrative Resulting Agency Comment Spec In Lab Stephen Wang MD CHEMISTRY ORDERABL ES Performing Organization Address [facility] Co de Phone Number [facility] [place] [address] * Magnesium (09/01/2017 3:27 AM EDT) [facility] Magnesium 0.72 0.69 - 1.07 mmol/L [facility] Blood specimen (specimen) 09/01/2017 3:27 AM EDT 09/01/2017 3:35 AM EDT Narrative Resulting Agency Comment Spec In Lab Stephen Wang MD CHEMISTRY ORDERABL ES Performing Organization Address City/[facility]/ZIP Co de Phone Number [facility] [place] [address] * Calcium (09/01/2017 3:27 AM EDT) [facility] Calcium 8.7 8.5 - 10.5 mg/dL [facility] Blood specimen (specimen) 09/01/2017 3:27 AM EDT 09/01/2017 3:35 AM EDT Narrative Resulting Agency Comment Spec In Lab Stephen Wang MD CHEMISTRY ORDERABL ES Performing Organization Address [facility]/ZIP Co de Phone Number [facility] [place] [address] * (ABNORMAL) Basic Metabolic Panel (non-fasting) (09/01/2017 3:27 AM EDT) Glucose 186 65 - 199 mg/dL [facility] Comment:Diabetes: >=200 mg/d L plus symptoms Blood Urea Nitrogen 7(L) 8 - 18 mg/dL [facility] Creatinine 0.79 0.70 - 1.20 mg/dL [facility] Sodium 139 135 - 145 mmol/L [facility] Potassium 3.2(L) 3.5 - 5.0 mmol/L [facility] Comment: Please note: ??Patients with WBC >100,000 may have falsely elevated Potassium levels. ??For accurate Potassium quantification in these patients send serum separator tube (gold top) for subsequent determinations. ??Contact the Clinical Chemistry Laboratory if there are any questions. Chloride 101 98 - 107 mmol/L [facility] Carbon Dioxide 26 22 - 31 mmol/L [facility] Anion Gap 12 5 - 15 mmol/L [facility] Calcium 8.7 8.5 - 10.5 mg/dL [facility] Est Glomerular Filtration Rate >60 >=60 [facility] Comment: The reported eGFR should be multiplied by 1.2 for patients. The MDRD is not an appropriate measure of renal function for patients with body mass extremes or in patients with acute kidney failure. http://[employer]/DHnkdep http://[employer]/DHMCnkf Blood specimen (specimen) 09/01/2017 3:27 AM EDT 09/01/2017 3:35 AM EDT Narrative Resulting Agency Comment Spec In Lab Stephen Wang MD CHEMISTRY ORDERABL ES Performing Organization Address [facility]/ZIP Co de Phone Number [facility] [place] [address] * EKG 12 Lead (08/31/2017 5:33 PM EDT) Ventricular rate 51 BPM MUSE SYSTEM Atrial Rate 51 BPM MUSE SYSTEM P-R Interval 134 ms MUSE SYSTEM QRS Duration 94 ms MUSE SYSTEM Q-T Interval 440 ms MUSE SYSTEM QTC Calculated (Bezet) 405 ms MUSE SYSTEM Calculated P Clayton 35 degrees MUSE SYSTEM Calculated R Clayton 45 degrees MUSE SYSTEM Calculated T Clayton 20 degrees MUSE SYSTEM INTERPRETATION Sinus bradycardia Otherwise normal ECG No previous ECGs available Confirmed by MD Stephon, Avelino Mayorga ([id number]) on 09/01/2017 10:18:21 AM MUSE SYSTEM 08/31/2017 5:33 PM EDT 09/01/2017 10:18 AM EDT Stephen Wang MD ECG ORDERABLES MUSE SYSTEM * ED Information Exchange (08/31/2017 3:19 PM EDT) 08/31/2017 3:19 PM EDT Kenna Huang MD NURSING INFORMATIONA L/COMMUNICATION ORDERABLES CMT ALEXIA documented in this encounter Visit Diagnoses Diagnosis Nonintractable headache, unspecified chronicity pattern, unspecified headache type Seizure-like activity Other convulsions Seizure-like activity Other convulsions documented in this encounter Admitting Diagnoses Diagnosis Seizure-like activity Other convulsions documented in this encounter Administered Medications Inactive Administered Medications - up to 3 most recent administrations Medication Order MAR Action Action Date Dose Rate Site acetaminophen (TYLENOL) tablet 650 mg 650 mg, Oral, EVERY 6 HOURS PRN, Starting on 09/01/17 at 0243, Until 09/01/17 at 1651, Pain, Fever, Administer for temperature greater than or equal to 38.2 degrees celsius. Maximum daily dose of acetaminophen from all sources not to exceed 4,000 mg., Routine Given 09/01/2017 10:54 AM EDT 650 mg dextrose 50% IV syringe 25-50 mL 25-50 mL (12.5-25 g), Intravenous, EVERY 1 HOUR PRN, Starting on 09/01/17 at 0944, Until 09/01/17 at 1651, Low blood sugar, For BG 50-70: 120 mL Juice or Regular (not diet) soda OR 12.5 gram (25 mL) Dextrose 50% IV OR, if no IV access, 1 mg Glucagon IM. Recheck BG in 30 minutes. May repeat juice, dextrose or glucagon once per episode For BG less than 50: 240 mL Juice or Regular (not diet) soda OR 25 grams (50 mL) Dextrose 50% IV OR, if no IV access, 1 mg Glucagon IM. Recheck BG in 30 minutes. May repeat juice, dextrose, or glucagon once per episode. To avoid extravasation, push Dextrose 50% SLOWLY (3 mL over 1 minute) in a patent, running IV, preferably a central line. For persistent hypoglycemia, consider longer-acting treatment for the duration of the active insulin., Routine diphenhydrAMINE (BENADRYL) capsule 50 mg 50 mg, Oral, ONCE, 1 dose, On 08/31/17 at 1649, STAT Given 08/31/2017 4:49 PM EDT 50 mg docusate sodium (COLACE) capsule 100 mg 100 mg, Oral, 2 TIMES DAILY, First dose on 09/01/17 at 0900, Until Discontinued, Routine Given 09/01/2017 9:04 AM EDT 100 mg gabapentin (NEURONTIN) capsule 100 mg 100 mg, Oral, 3 TIMES DAILY, First dose on 09/01/17 at 0900, Until Discontinued, Routine Given 09/01/2017 2:04 PM EDT 100 mg Given 09/01/2017 9:04 AM EDT 100 mg gadoterate meglumine (DOTAREM) 0.5 mmol/mL injection 0-1,524 mL 0-1,524 mL (0-20 mL/kg/dose ? 76.2 kg), Intravenous, ONCE PRN, 1 dose, Starting on 09/01/17 at 1233, Until 09/01/17 at 1233, Per Protocol, Radiology Contrast, Routine Given 09/01/2017 12:33 PM EDT 15 mLs glucagon (human recombinant) injection SolR 1 mg 1 mg, Intramuscular, EVERY 1 HOUR PRN, Starting on 09/01/17 at 0944, Until 5/13/18 at 1651, Low blood sugar, For BG 50-70: 120 mL Juice or Regular (not diet) soda OR 12.5 gram (25 mL) Dextrose 50% IV OR, if no IV access, 1 mg Glucagon IM. Recheck BG in 30 minutes. May repeat juice, dextrose or glucagon once per episode For BG less than 50: 240 mL Juice or Regular (not diet) soda OR 25 grams (50 mL) Dextrose 50% IV OR, if no IV access, 1 mg Glucagon IM. Recheck BG in 30 minutes. May repeat juice, dextrose, or glucagon once per episode. To avoid extravasation, push Dextrose 50% SLOWLY (3 mL over 1 minute) in a patent, running IV, preferably a central line. For persistent hypoglycemia, consider longer-acting treatment for the duration of the active insulin., Routine ibuprofen (ADVIL;MOTRIN) tablet 600 mg 600 mg, Oral, ONCE, 1 dose, On 08/31/17 at 1649, Administer orally with milk or food to minimize GI irritation , STAT Given 08/31/2017 4:49 PM EDT 600 mg insulin lispro (HumaLOG) VIAL injection 1-4 Units 1-4 Units, Subcutaneous, EVERY 4 HOURS SCHEDULED, First dose on 09/01/17 at 1200, Until Discontinued, CORRECTION BOLUS Sensitive to insulin lean patient or total daily dose of all insulin needed to achieve glycemic control less than 30 units BG 140 - 160 Give 1 unit BG 161 - 200 Give 2 units BG 201 - 240 Give 3 units BG greater than 240, give 4 units and recheck BG in 2 hours. If less than 240 after two hours, give no insulin and resume prior schedule. If BG remains greater than 240, repeat 4 units (no more than three times) & call for new basal insulin orders. DO NOT hold if NPO, unless specifically told to do so., Routine ketorolac (TORADOL) injection 30 mg 30 mg, Intravenous, EVERY 6 HOURS PRN, Starting on 09/01/17 at 0243, Until 09/01/17 at 1651, Pain, Routine Given 09/01/2017 11:30 AM EDT 30 mg liraglutide (VICTOZA) PEN injection PnIj 1.8 mg 1.8 mg, Subcutaneous, EVERY MORNING, First dose on 5/14/18 at 0600, Until Discontinued Given 09/01/2017 1:06 PM EDT 1.8 mg ondansetron (ZOFRAN-ODT) oral disintegrating tablet 4 mg 4 mg, Oral, ONCE, 1 dose, On 08/31/17 at 1905, STAT Given 08/31/2017 7:42 PM EDT 4 mg pantoprazole (PROTONIX) tablet 40 mg 40 mg, Oral, DAILY, First dose on 09/01/17 at 0900, Until Discontinued, DO NOT CRUSH OR OPEN Given 09/01/2017 9:04 AM EDT 40 mg prochlorperazine (COMPAZINE) tablet 10 mg 10 mg, Oral, EVERY 6 HOURS PRN, Starting on 08/31/17 at 1647, Until 09/01/17 at 1651, Nausea, Maximum dose: 50 mg / 24 hrs, Routine Given 08/31/2017 4:56 PM EDT 10 mg sodium chloride 0.9 % flush 5 mL 5 mL, Intravenous, 2 TIMES DAILY, First dose on 09/01/17 at 0900, Until Discontinued, Routine Given 09/01/2017 9:04 AM EDT 5 mLs documented in this encounter Active and Recently Administered Medications Times are shown in EDT. Scheduled Medication Order 08/30/2017 08/31/2017 09/01/2017 diphenhydrAMINE (BENADRYL) capsule 50 mg (COMPLETED) 50 mg, Oral, ONCE, 1 dose, On 08/31/17 at 1649, STAT 1649 (Given - Provider: Param Eason) docusate sodium (COLACE) capsule 100 mg 100 mg, Oral, 2 TIMES DAILY, First dose on 09/01/17 at 0900, Until Discontinued, Routine 09 (Given - Provid er: Bety Cui RN) enoxaparin (LOVENOX) injection 40 mg 40 mg, Subcutaneous, NIGHTLY, First dose on 09/01/17 at 2100, Until Discontinued, Routine gabapentin (NEURONTIN) capsule 100 mg 100 mg, Oral, 3 TIMES DAILY, First dose on 09/01/17 at 0900, Until Discontinued, Routine 0904 (Given - Provid er: Bety Cui RN)1404 (Given - Provider: Madelin Reaves RN) ibuprofen (ADVIL;MOTRIN) tablet 600 mg (COMPLETED) 600 mg, Oral, ONCE, 1 dose, On 08/31/17 at 1649, Administer orally with milk or food to minimize GI irritation , STAT 1649 (Given - Provider: Param Eason) insulin lispro (HumaLOG) VIAL injection 1-4 Units(Linked Group 1) 1-4 Units, Subcutaneous, EVERY 4 HOURS SCHEDULED, First dose on 09/01/17 at 1200, Until Discontinued, CORRECTION BOLUS Sensitive to insulin lean patient or total daily dose of all insulin needed to achieve glycemic control less than 30 units BG 140 - 160 Give 1 unit BG 161 - 200 Give 2 units BG 201 - 240 Give 3 units BG greater than 240, give 4 units and recheck BG in 2 hours. If less than 240 after two hours, give no insulin and resume prior schedule. If BG remains greater than 240, repeat 4 units (no more than three times) & call for new basal insulin orders. DO NOT hold if NPO, unless specifically told to do so., Routine 1200 (Not Given - Provider: Madelin Reaves RN - Reason: Patient/family refused - Comment: pt taking home insulin instead per nursing communicatin) liraglutide (VICTOZA) PEN injection PnIj 1.8 mg 1.8 mg, Subcutaneous, EVERY MORNING, First dose on 09/02/17 at 0600, Until Discontinued 1306 (Given - Provid er: Madelin Reaves RN - Comment: given now per home routine. pt did not take yet today. per nursing communication okay for pt to do) ondansetron (ZOFRAN-ODT) oral disintegrating tablet 4 mg (COMPLETED) 4 mg, Oral, ONCE, 1 dose, On 08/31/17 at 1905, STAT 1942 (Given - Provider: Param Eason) pantoprazole (PROTONIX) tablet 40 mg 40 mg, Oral, DAILY, First dose on 09/01/17 at 0900, Until Discontinued, DO NOT CRUSH OR OPEN 09 (Given - Provid er: Bety Cui RN) sodium chloride 0.9 % flush 5 mL 5 mL, Intravenous, 2 TIMES DAILY, First dose on 09/01/17 at 0900, Until Discontinued, Routine 0904 (Given - Provid er: Bety Cui RN) PRN Medication Order 08/30/2017 08/31/2017 09/01/2017 acetaminophen (TYLENOL) tablet 650 mg 650 mg, Oral, EVERY 6 HOURS PRN, Starting on 09/01/17 at 0243, Until 09/01/17 at 1651, Pain, Fever, Administer for temperature greater than or equal to 38.2 degrees celsius. Maximum daily dose of acetaminophen from all sources not to exceed 4,000 mg., Routine 1054 (Given - Provid er: Madelin Reaves RN) bisacodyl (DULCOLAX) suppository 10 mg 10 mg, Rectal, DAILY PRN, Starting on 09/01/17 at 0243, Until 09/01/17 at 1651, Constipation, Administer if needed per patient's routine or if no bowel movement within 48 hours to achieve: (1) One bowel movement every 48 hours, AND (2) Without straining. If multiple PRN bowel medications ordered, start with magnesium hydroxide, then bisacodyl. Multiple medications may be given concomitantly for constipation., Routine dextrose 50% IV syringe 25-50 mL(Linked Group 2) 25-50 mL (12.5-25 g), Intravenous, EVERY 1 HOUR PRN, Starting on 09/01/17 at 0944, Until 09/01/17 at 1651, Low blood sugar, For BG 50-70: 120 mL Juice or Regular (not diet) soda OR 12.5 gram (25 mL) Dextrose 50% IV OR, if no IV access, 1 mg Glucagon IM. Recheck BG in 30 minutes. May repeat juice, dextrose or glucagon once per episode For BG less than 50: 240 mL Juice or Regular (not diet) soda OR 25 grams (50 mL) Dextrose 50% IV OR, if no IV access, 1 mg Glucagon IM. Recheck BG in 30 minutes. May repeat juice, dextrose, or glucagon once per episode. To avoid extravasation, push Dextrose 50% SLOWLY (3 mL over 1 minute) in a patent, running IV, preferably a central line. For persistent hypoglycemia, consider longer-acting treatment for the duration of the active insulin., Routine gadoterate meglumine (DOTAREM) 0.5 mmol/mL injection 0-1,524 mL (COMPLETED) 0-1,524 mL (0-20 mL/kg/dose ? 76.2 kg), Intravenous, ONCE PRN, 1 dose, Starting on 09/01/17 at 1233, Until 09/01/17 at 1233, Per Protocol, Radiology Contrast, Routine 1233 (Given - Provid er: Chasity Blancas) glucagon (human recombinant) injection SolR 1 mg(Linked Group 2) 1 mg, Intramuscular, EVERY 1 HOUR PRN, Starting on 09/01/17 at 0944, Until 09/01/17 at 1651, Low blood sugar, For BG 50-70: 120 mL Juice or Regular (not diet) soda OR 12.5 gram (25 mL) Dextrose 50% IV OR, if no IV access, 1 mg Glucagon IM. Recheck BG in 30 minutes. May repeat juice, dextrose or glucagon once per episode For BG less than 50: 240 mL Juice or Regular (not diet) soda OR 25 grams (50 mL) Dextrose 50% IV OR, if no IV access, 1 mg Glucagon IM. Recheck BG in 30 minutes. May repeat juice, dextrose, or glucagon once per episode. To avoid extravasation, push Dextrose 50% SLOWLY (3 mL over 1 minute) in a patent, running IV, preferably a central line. For persistent hypoglycemia, consider longer-acting treatment for the duration of the active insulin., Routine ketorolac (TORADOL) injection 30 mg 30 mg, Intravenous, EVERY 6 HOURS PRN, Starting on 09/01/17 at 0243, Until 09/01/17 at 1651, Pain, Routine 1130 (Given - Provid er: Madelin Reaves RN) lidocaine (XYLOCAINE) 10 mg/mL (1 %) injection 3 mg 3 mg (0.3 mL), Subcutaneous, ONCE PRN, 1 dose, Starting on 09/01/17 at 0243, Until 09/01/17 at 1651, for discomfort with PIV insertion, Routine magnesium hydroxide (MILK OF MAGNESIA) oral suspension 10 mL 10 mL, Oral, DAILY PRN, Starting on 09/01/17 at 0243, Until 09/01/17 at 1651, Constipation, Administer if needed per patient's routine or if no bowel movement within 48 hours to achieve: (1) One bowel movement every 48 hours, AND (2) Without straining. If multiple PRN bowel medications ordered, start with magnesium hydroxide, then bisacodyl. Multiple medications may be given concomitantly for constipation., Routine prochlorperazine (COMPAZINE) tablet 10 mg 10 mg, Oral, EVERY 6 HOURS PRN, Starting on 08/31/17 at 1647, Until 09/01/17 at 1651, Nausea, Maximum dose: 50 mg / 24 hrs, Routine 1656 (Given - Provider: Param Eason) sodium chloride 0.9 % flush 5-20 mL 5-20 mL, Intravenous, EVERY 1 MIN PRN, Starting on 09/01/17 at 0243, Until 09/01/17 at 1651, flush, Flush pertains to all indwelling lines. Flush per protocol found in the job aid using the link provided on this medication record., Routine Linked Groups Order Group 1: POCT Fingerstick Glucose (CANCELED) Routine, EVERY 4 HOURS, First occurrence on 09/01/17 at 1200, Until Specified, Consider choosing EVERY 4 HOURS as frequency for: - Type 1 Diabetes - At least 24 hours after coming off an insulin drip - At least 24 hours after admission for DKA - Hypoglycemia unawareness - Patients who are otherwise unstable Select the same frequency for the correction bolus insulin order And insulin lispro (HumaLOG) VIAL injection 1-4 UnitsJump to med 1-4 Units, Subcutaneous, EVERY 4 HOURS SCHEDULED, First dose on 09/01/17 at 1200, Until Discontinued, CORRECTION BOLUS Sensitive to insulin lean patient or total daily dose of all insulin needed to achieve glycemic control less than 30 units BG 140 - 160 Give 1 unit BG 161 - 200 Give 2 units BG 201 - 240 Give 3 units BG greater than 240, give 4 units and recheck BG in 2 hours. If less than 240 after two hours, give no insulin and resume prior schedule. If BG remains greater than 240, repeat 4 units (no more than three times) & call for new basal insulin orders. DO NOT hold if NPO, unless specifically told to do so., Routine Group 2: dextrose 50% IV syringe 25-50 mLJump to med 25-50 mL (12.5-25 g), Intravenous, EVERY 1 HOUR PRN, Starting on 09/01/17 at 0944, Until 09/01/17 at 1651, Low blood sugar, For BG 50-70: 120 mL Juice or Regular (not diet) soda OR 12.5 gram (25 mL) Dextrose 50% IV OR, if no IV access, 1 mg Glucagon IM. Recheck BG in 30 minutes. May repeat juice, dextrose or glucagon once per episode For BG less than 50: 240 mL Juice or Regular (not diet) soda OR 25 grams (50 mL) Dextrose 50% IV OR, if no IV access, 1 mg Glucagon IM. Recheck BG in 30 minutes. May repeat juice, dextrose, or glucagon once per episode. To avoid extravasation, push Dextrose 50% SLOWLY (3 mL over 1 minute) in a patent, running IV, preferably a central line. For persistent hypoglycemia, consider longer-acting treatment for the duration of the active insulin., Routine Or glucagon (human recombinant) injection SolR 1 mgJump to med 1 mg, Intramuscular, EVERY 1 HOUR PRN, Starting on 09/01/17 at 0944, Until 09/01/17 at 1651, Low blood sugar, For BG 50-70: 120 mL Juice or Regular (not diet) soda OR 12.5 gram (25 mL) Dextrose 50% IV OR, if no IV access, 1 mg Glucagon IM. Recheck BG in 30 minutes. May repeat juice, dextrose or glucagon once per episode For BG less than 50: 240 mL Juice or Regular (not diet) soda OR 25 grams (50 mL) Dextrose 50% IV OR, if no IV access, 1 mg Glucagon IM. Recheck BG in 30 minutes. May repeat juice, dextrose, or glucagon once per episode. To avoid extravasation, push Dextrose 50% SLOWLY (3 mL over 1 minute) in a patent, running IV, preferably a central line. For persistent hypoglycemia, consider longer-acting treatment for the duration of the active insulin., Routine documented in this encounter Care Teams Core Drill Operator Relationship Specialty Start Date End Date Rosy Tavarez, [facility] [address] PCP - General General Internal Medicine 02/14/1709/21 documented as of this encounter
--- OUTSIDE RECORDS SUMMARY | 2024-01-03 01:06 | XMS_ITS | Encounter Summary ---
Author Organization [facility] [place] [address] Care Team Providers Care Entrepreneurship Program Director Name Role Phone Rosy Tavarez GO Primary Care Provider Reason for Referral * Psychiatric (Routine) - Specialty Diagnoses / Procedures Referred By Contac t Referred To Contact Psychiatry Diagnoses Post-traumatic stress disorder, chronic Tara Carlton, PhD [facility] [place] [address] Taye Lagos, PhD Referral ID Status Reason Start Date Expiration Date V isits Requested Visits Authorized [id number] Consult, Test & Treat 07/08/2017 07/08/2018 1 1 Encounter Details Date Type Department Care Team (Late st Contact Info) Description 07/08/2017 Orders Only Weight and Wellness at [facility] [address] [place] [address] Tara Carlton, PhD [facility] [address] [facility] [place] [address] Post-traumatic stress disorder, chronic Social History Tobacco Use Types Packs/Day Years [...] PM EDT Appointment [place]ology [place] [address] 12/03/2024 2:00 PM EDT Office Visit H[place]ology [place] [id number] Pelon Wisdom MD [facility] HEMATOLOGY [place] [address] Oksana Payne APRN [facility] HEMATOLOGY [place] [address] Scheduled Referrals Name Type Priority Associated Diagnoses Order Schedule Referral to Psychology Outpatient Referral Routine Post-traumatic stress disorder, chronic Ordered: 07/08/2017 documented as of this encounter Visit Diagnoses Diagnosis Post-traumatic stress disorder, chronic documented in this encounter Care Teams Entrepreneurship Program Director Relationship Specialty Start Date End Date Rosy Tavarez, SPECIAL AGENT [facility] [place] [address] PCP - General General Internal Medicine 02/14/1709/21 documented as of this encounter
--- OUTSIDE RECORDS SUMMARY | 2024-01-03 01:06 | XMS_ITS | Encounter Summary ---
Author Organization [facility] Address [facility] [place] [address] Care Team Providers Care Want Ad Clerk Name Role Phone Rosy Tavarez GO Primary Care Provider Encounter Details Date Type Department Care Team (Late st Contact Info) Description 10/01/2017 3:00 PM EDT Office Visit Psychiatry [place] [address] Taye Lagos, PhD Post-traumatic stress disorder, chronic; [...] Progress Notes * Taye Lagos, PhD - 10/01/2017 3:00 PM EDT INDIVIDUAL THERAPY PROGRESS NOTE Time Spent: 45 minutes CHIEF COMPLAINT/DIAGNOSIS: Post-traumatic Stress Disorder, chronic; Generalized Anxiety Disorder SUBJECTIVE: Ms. Min reported that she had been feeling about the same since last session. No stressors of note came up for her over the week. She stated that she did read over the treatment handouts and decided that she would like to proceed with Prolonged Exposure (PE) for treatment. TREATMENT MODALITY: CBT OBJECTIVE: We initially discussed what led her to choosing PE over CPT. She stated that she has more familiarity with some of the skills used in CPT and wanted to give something else a try. This editorial writer provided a more detailed overview of PE and we discussed questions she had about the treatment. We discussed the two types of exposures used in PE. We began work on an in vivo exposure hierarchy. Ms. Min was able to identify anchor points and come up with a number of situations with a subjective units of distress (SUDS) scores that ranged from 3 to 10. Some of the items included talking to male strangers, going to a bar or club in the evening or night, and watching TV or movie scenes involving domestic violence. We ended session by discussing how to complete an exposure and agreed to an exposure to complete together at next session of talking to strangers in the hospital. ASSESSMENT: Ms. Min denied any change in symptoms since last session. She was engaged in sessionand understood the material discussed. She actively participated in generating items for her hierarchy and in planning the initial exposure to complete. Patient-reported Psychiatry Followup scores and responses: PHQ9 MYD-H PHQ-9 RESPONSES 09/30/2017 Little interest or pleasure Several days Down, depressed, hopeless More than half the days Trouble sleeping Several days Tired or no energy Nearly every day Poor appetite or overeating More than half the days Feeling like a failure Several days Trouble concentrating (newspaper) Nearly every day Moving or speaking slowly More than half the days Would be better off Not at all Phq9 Impairment Very difficult PHQ-9 Score 15 (Moderately Severe Depression) GAD7 SAMPSON-7 Patient Reported Responses 09/30/2017 Nervous, anxious (Patient) Nearly every day Unable to stop worrying (Patient) Nearly every day Worrying about different things (Patient) Nearly every day Trouble relaxing (Patient) Nearly every day Restless (Patient) More than half the days Easily annoyed, irritable (Patient) Nearly every day Afraid something awful will happen (Patient) Several days Difficulty (Patient) Very difficult SAMPSON-7 Score (Patient) 18 (Severe Anxiety) Psychiatry Improvement Scale: Psychiatry Improvement Scale 09/30/2017 Improvement Scale Minimally improved PLAN: Revised goals or interventions: Continue PE, begin in vivo exposures in session Safety Risk Management: Denied SI/HI Assigned Homework: Add to in vivo exposure hierarchy * Ned Groves, PhD - 10/01/2017 3:00 PM EDT I have reviewed this note and [...] PM EDT Appointment Hematology [place] [address] 12/03/2024 2:00 PM EDT Office Visit Hematology [place] [address] Pelon Wisdom MD [facility] [address] [place] [address] Oksana Payne APRN [facility] [place] [address] documented as of this encounter Visit Diagnoses Diagnosis Post-traumatic stress disorder, chronic SAMPSON (generalized anxiety disorder) Generalized anxiety disorder documented in this encounter Care Teams Want Ad Clerk Relationship Specialty Start Date End Date Rosy Tavarez APRN [facility] [place] [address] PCP - General General Internal Medicine 02/14/1709/21 documented as of this encounter
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
--- OUTSIDE RECORDS SUMMARY | 2024-01-03 01:06 | XMS_ITS | Encounter Summary ---
Author Organization [facility] [place] [address] Care Team Providers Care Loom Operator Name Role Phone Rosy Tavarez GO Primary Care Provider Reason for Visit * Reason Onset Date Comments Medication Refill 09/05/2017 Encounter Details Date Type Department Care Team ([facility] Contact Info) Description 09/05/2017 [place] [phone] Robbin Costa MD [facility] [place] [address] Medication Refill Social History Tobacco Use Types Packs/Day Years [...] Upcoming Encounters Date Type Department Care Team ([facility] Contact Info) Description 12/03/2024 1:00 PM EDT Appointment [place] [phone] 12/03/2024 2:00 PM EDT Office Visit [place]ology [place] [phone] Pelon Wisdom MD [facility] DR HEMATOLOGY [place] [address] Oksana Payne APRN [facility] HEMATOLOGY [place] [address] documented as of this encounter Visit Diagnoses Not on filedocumented in this encounter Care Teams Loom Operator Relationship Specialty Start Date End Date Rosy Tavarez APRN [facility] [place] [address] PCP - General General Internal Medicine 02/14/17 6/2 05/11 documented as of this encounter
--- OUTSIDE RECORDS SUMMARY | 2024-01-03 01:06 | XMS_ITS | Encounter Summary ---
Author Organization [facility] Address [facility] [place] [address] Care Team Providers Care Sewage Treatment Plant Operator Name Role Phone Rosy Tavarez GO Primary Care Provider Encounter Details Date Type Department Care Team (Late st Contact Info) Description 05/15/2017 4:00 PM EST Office Visit Psychiatry and Behavioral Health at [facility] [place] [address] You Robertson, [place] [address] Post-traumatic stress disorder, chronic Social History Tobacco [...] as of this encounter Progress Notes * You Robertson, PhD - 05/15/2017 4:00 PM EST Behavioral Sleep Services Length: 20 mins Chief Compliant/Diagnosis: PTSD Objective and [place]: Assessment of needs for treatment Assessments and topics of discussion: The patient reports that her sleep and mood got better since she started Gabapentin. She states that she wants to work on her PTSD symptoms. Her PCL score is 52 (see scanned doc). She experiences repeated disturbing re-experience of her past trauma, avoidance, hypervigilance, difficulty concentrating, and irritability. Discussed a referral to the anxiety disorder service. The patient also expressed a preference for a male psychologist. Plans: Refer to Dr. Groves for anxiety treatment. documented in this encounter Plan of Treatment Upcoming Encounters Date Type Department Care Team (Late st Contact Info) Description 12/03/2024 1:00 PM EDT Appointment Hematology [place] [address] 12/03/2024 2:00 PM EDT Office Visit Hematology [place] [address] Pelon Wisdom MD [facility] DR [place] [address] Oksana Payne APRN [facility] [place] [address] documented as of this encounter Visit Diagnoses Diagnosis Post-traumatic stress disorder, chronic documented in this encounter Care Teams Sewage Treatment Plant Operator Relationship Specialty Start Date End Date Rosy Tavarez APRN [facility] [place] [address] PCP - General General Internal Medicine 02/14/17 6/2 05/11 documented as of this encounter
--- OUTSIDE RECORDS SUMMARY | 2024-01-03 01:06 | XMS_ITS | Encounter Summary ---
Author Organization [facility] Address [facility] [place] [address] Care Team Providers Care Environmental Engineering Intern Name Role Phone Rosy Tavarez REMOTE COMPUTER TERMINAL OPERATOR Primary Care Provider Reason for Visit * Reason Comments Loss of Consciousness * Consultation (Urgent) - Specialty Diagnoses / Procedures Referred By Contlaura t Referred To Contact Neurology Diagnoses Intractable chronic migraine without aura and with status migrainosus Rosy Tavarez, GO [facility] [place] [place] [address] [facility] [address] [place] [phone] Referral ID Status Reason Start Date Expiration Date Visits Requested Visits Authorized [id number] Specialty Service Requested 08/30/2017 08/30/2018 1 1 Encounter Details Date Type Department Care Team ([facility] st Contact Info) Description 09/05/2017 1:30 PM EDT Office [place] [phone] Maddie Terrazas MD [facility] [place] [address] Robbin Costa MD [facility] [place] [address] Syncope, unspecified syncope type; Migraine without aura and without status migrainosus, not intractable Social History Tobacco Use Types Packs/Day Years [...] Sign Reading Time Taken Comments Blood Pressure 115/69 09/05/2017 1:35 PM EDT Pulse 90 09/05/2017 1:35 PM EDT Temperature - - Respiratory Rate - - Oxygen Saturation - - Inhaled Oxygen Concentration - - Weight 78 kg (172 lb) 09/05/2017 1:35 PM EDT Height 162.6 cm (5' 4) 09/05/2017 1:35 PM EDT r eported Body Mass Index 29.52 09/05/2017 1:35 PM EDT documented in this encounter Patient Instructions * Patient Instructions* Robbin Costa MD - 09/05/2017 1:30 PM EDT You were seen in neurology for follow-up of your convulsive syncope and migraine Plan: Migraine: -keep a headache diary - bring to your next appointment -at headache onset: -for mild headache - take naproxen and/or hydroxyzine twice a day as needed -for severe headache - take eletriptan - may repeat x1 after 2 hrs - do not use more than 2 days per week Syncope: -start fludrocortisone 100 microgram once per day - be sure to closely monitor blood sugar -buy compression stockings Return in 6 weeks. documented in this encounter Progress Notes * Maddie Terrazas MD - 09/05/2017 1:30 PM EDT * Lina Boggs RN - 09/05/2017 1:30 PM EDT After obtaining verbal consent, and per orders of Dr. Costa, injection of ketorolac 60 mg IM given. * Robbin Costa MD - 09/05/2017 1:30 PM EDT Neurology Clinic Note Patient Name: Germán Min : 1980 PCP: Rosy Tavarez APRN Clinic Attending: Dr. Maddie Terrazas Patient ID: Germán Min is a 36 y.o. R-handed F with PMH of migraine, GERD, DM-2, anxiety, vertigo, and depression, here for follow-up of migraine and convulsive syncope. Patient was last seen by me on 11/29/17. Patient Active Problem List Diagnosis ??? Seizure-like activity ??? Depression ??? Anxiety ??? Gastroesophageal reflux disease without esophagitis ??? Uncontrolled diabetes mellitus type 2 without complications Interval History: She was seen at OSH for multiple episodes of syncopal seizures in one day last week on 08/29/17. 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 She was sitting in her car and tried to recline her seat back. This did not help. She felt nauseous again and vomited for about 15 minutes. Then she passed out and a seizure, and had urinary incontinence. Within a few minutesshe had a second episode of syncope with a seizure, and then had a third episode. She was disoriented upon waking up from each event. The seizures lasted less than one minute each. The night before this she had a migraine with associated nausea. She did not hydrate very well. Thenext morning she took pepto bismol and Exedrin migraine. The migraine resolved before she got to work. EMS was called. She was taken to . BP on arrival was 89/53. Labs were notable for lactic acid 2.9 (normal <2.0; abnormal value was attributed to dehydration), WBC 7.2, hgb 13.5, platelet 231, glucose elevated at 180, Na 139, K low at 3.2, mag 1.8, ALT low at 12, BUN 7, Cr 0.8, AGAP 15. CT head at OSH report indicates possible chiari malformation. She was discharged with the diagnosis of syncope. Here routine EEG was normal awake and asleep, and brain MRI was notable for 2 small FLAIR signal abnormalities in the white matter, otherwise normal. She was discharged with the diagnosis of migraine and was discharged with 7 days of naproxen and hydroxyzine. Her headaches are described as bifrontal/bitemporal, described as a pressure sensation, can last all day, exacerbated by bending her head forward. There is associated nausea/vomiting, but no photo/phonophobia. Sleep helps. Tylenol and Aleve do not really help. Exedrin migraine helps a little bit. She was discharged from here several days ago with one week of naproxen and hydroxyzine with no improvement. She has had a migraine since her syncopal seizure events, with pain rated at 5/10 in severity. These headaches began in 2007, then went away, and returned approximately in the summer of 2017. In the last 6 months she has had about 1-2 per month. She had used eletriptan in the past with good e ffect. She was also started on vitamin B complex 4 months ago with no change in her headache frequency. She has increased her salt intake, but has not been eating well for the last 3 months, as she has been having waves of nausea lasting several minutes throughout the day. No associated headache. She has not bought compression stockings. She still tends to get lightheaded upon standing up. No more vertigo, however. Labs from last week also indicate severely low vitamin D at 7 ng/mL. Her PCP has ordered supplements. This would explain why she has felt so lethargic for the last few months. She reports her glucose control is very good. She tends to run in the 120s. Her A1c last week was 8.2, down from 8.8 in April. For her anxiety, she was started on gabapentin by psychiatry with good effect (100 mg AM, 200 mg PM). Smoking: none Denies weakness, numbness, diplopia, bowel/bladder issues, balance issues. +Chronic diarrhea, seeing GI specialist. Past Medical History: Diagnosis Date ??? Allergic state ??? Anxiety ??? Depression Medications: Medications 09/05/17 1338 Medication Sig Taking? VICTOZA 2-SHANA 0.6 mg/0.1 mL (18 mg/3 mL) Pen Injector Inject 1.8 mg subcutaneously every morning. Yes cholecalciferol, Vitamin D3, 50,000 unit Capsule Take 1 capsule by mouth once a week for 12 doses. Yes naproxen (NAPROSYN) 500 mg Tablet Take 1 tablet by mouth 2 times daily (with meals). Take 2xday for1 week, then as needed Yes hydrOXYzine (VISTARIL) 25 mg Capsule Take 1 capsule by mouth 2 times daily. Take 2xday for 1 week, then as needed 1-2 times a day Yes gabapentin (NEURONTIN) 100 mg Capsule Take 1 capsule by mouth 3 times daily. Yes omeprazole (PRILOSEC) 40 mg Capsule, Delayed Release(E.C.) Take 1 capsule by mouth daily. Yes blood sugar diagnostic strips Strip Test blood glucose 4 times daily. Salas Metrix self monitoring Blood Glucose strips E11.9 Yes lancets (MICROLET LANCET) Misc 1 each by Misc.(Non-Drug; Combo Route) route 4 times daily. Yes acetaminophen (TYLENOL) 500 mg Tablet Take 2 tablets by mouth every 6 hours as needed for Pain. Yes Blood-Glucose Meter Misc Please dispense Salas Metrix meter. E11.9 Yes lancets (LANCETS,THIN) 28 gauge Misc 1 each by Misc.(Non-Drug; Combo Route) route 4 times daily. microlet lancets Yes fexofenadine (SHELBI) 180 mg Tablet Take 1 tablet by mouth daily as needed. Yes meclizine (ANTIVERT) 25 mg Tablet Take 1 tablet by mouth 3 times daily as needed. Yes glucose (DEX4 GLUCOSE) 4 gram Tablet, Chewable Take 4 tablets by mouth as needed for Low blood sugar. Yes eletriptan (RELPAX) 20 mg tablet 20 MG = 1 Tablet(s), PO, PRN Yes Allergy: Allergies Allergen Reactions ??? Latex ??? Other [Unclassified Drug] Anaphylaxis Any type of anti-depressant. ??? Paroxetine Hcl CIS - Edema ??? Lactose Review of systems: Constitutional: No fevers or chills Eyes: No vision changes, no diplopia, no blurry vision ENT: No rhinorrhea or pharyngitis, no meningismus CV: No chest pain or palpitations Resp: No cough, no shortness of breath GI: +nausea, +vomiting, +diarrhea : No dysuria, no incontinence Heme: No bleeding or bruising Endo: No polyuria or cold intolerance Neuro: See HPI Psych: No depression, normal sleep [x] Review of systems otherwise negative Physical Exam: Vitals: 09/05/17 1335 BP: 115/69 BP Location (NBP): Left arm Patient Position: Sitting BP Cuff Sizes: Adult (25-34 cm) Pulse: 90 Weight: 78 kg (172 lb) Height: 162.6 cm (5' 4) Gen: Patient of apparent stated age, well nourished, well developed, awake, alert, NAD Neck: Supple, no meningismus Resp: normal respiratory effort Ext: No edema. No bony deformity Neuro Exam: MS: AAOx4, clear language, no dysarthria, follows commands CN: PERRL, EOMI, visual interiano full Facial sensation intact, no facial asymmetry Hearing intact to finger rub Palate elevates symmetrically, tongue protrudes midline SCM and trap strength intact Motor: Normal bulk and tone. No pronator drift UE: 5/5 R, 5/5 L Arm abduction at shoulder 5/5 R, 5/5 L Elbow extension 5/5 R, 5/5 L Elbow flexion 5/5 R, 5/5 L Nurse Obgyn LE: 5/5 R, 5/5 L Hip flexion 5/5 R, 5/5 L Knee extension 5/5 R, 5/5 L Knee flexion 5/5 R, 5/5 L Foot dorsiflexion 5/5 R, 5/5 L Foot plantar flexion Sensation: Intact to light touch and temperature throughout. Reduced vibration in bilateral ankles and great toes. Reflexes: DTRs Very diminished throughout Toes - R down, L down Coordination: Finger to nose intact, no dysmetria Rapid alternating movements & finger tapping smooth and symmetric Heel-viveros intact No tremor Gait: Stable, steady Labs: Results for GERMÁN MIN ( ) as of 09/05/2017 15:03 Ref. Range 09/01/2017 03:27 WBC Latest Ref Range: 4.0 - 9.5 x10(3)/mcL 6.5 RBC Latest Ref Range: 4.00 - 5.21 x10(6)/mcL 3.51 (L) Hemoglobin Latest Ref Range: 11.7 - 15.5 gm/dL 12.1 Hematocrit Latest Ref Range: 35.7 - 45.8 % 34.2 (L) MCV Latest Ref Range: 82.6 - 94.4 fL 97.4 (H) MCH Latest Ref Range: 27.1 - 32.0 pg 34.5 (H) MCHC Latest Ref Range: 31.7 - 35.0 gm/dL 35.4 (H) RDWSD Latest Ref Range: 37.0 - 46.0 fL 41.5 RDWCV Latest Ref Range: 11.5 - 14.1 % 11.7 Platelets Latest Ref Range: 145 - 357 x10(3)/mcL 201 MPV Latest Ref Range: 7.6 - 12.9 fL 11.2 nRBC % Auto Latest Units: % 0.0 nRBC Abs Auto Latest Ref Range: 0.000 - 0.000 x10(3)/mcL 0.000 Neutr Abs (ANC) Latest Ref Range: 1.70 - 6.10 x10(3)/mcL 2.62 Results for GERMÁN MIN ( ) as of 09/05/2017 15:03 Ref. Range 09/01/2017 03:27 PT Latest Ref Range: 9.4 - 12.5 sec 11.3 INR Unknown 1.0 PTT Latest Ref Range: 25 - 37 sec 30 Results for GERMÁN MIN ( ) as of 09/05/2017 15:03 Ref. Range 08/30/2017 10:38 09/01/2017 03:27 09/01/2017 03:27 09/01/2017 13:00 Sodium Latest Ref Range: 135 - 145 mmol/L 139 Potassium Latest Ref Range: 3.5 - 5.0 mmol/L 3.2 (L) Chloride Latest Ref Range: 98 - 107 mmol/L 101 CO2 Latest Ref Range: 22 - 31 mmol/L 26 Anion Gap Latest Ref Range: 5 - 15 mmol/L 12 BUN Latest Ref Range: 8 - 18 mg/dL 7 (L) Creatinine Latest Ref Range: 0.70 - 1.20 mg/dL 0.79 Estimated GFR Latest Ref Range: >=60 >60 Glucose Lvl Latest Ref Range: 65 - 199 mg/dL 186 POC Glucose Latest Ref Range: 65 - 199 mg/dL 175 Calcium Latest Ref Range: 8.5 - 10.5 mg/dL 8.7 8.7 Magnesium Latest Ref Range: 0.69 - 1.07 mmol/L 0.72 Hemoglobin A1C Latest Ref Range: 4.3 - 5.6 % 8.2 (H) Est Avg Gluc Latest Units: mg/dL 189 Total Protein Latest Ref Range: 6.1 - 8.0 gm/dL 5.9 (L) Albumin Latest Ref Range: 3.2 - 5.2 gm/dL 3.6 Total Bilirubin Latest Ref Range: 0.2 - 1.3 mg/dL 0.4 Bili, Direct Latest Ref Range: 0.0 - 0.3 mg/dL 0.1 Alk Phos Latest Ref Range: 40 - 104 unit/L 59 AST Latest Ref Range: 0 - 30 unit/L 12 ALT Latest Ref Range: 0 - 30 unit/L 8 25-OH Vit D Total Latest Ref Range: 30 - 100 ng/mL 7 (L) Diagnostic Tests and Imaging: MRI brain, 09/01/17: FINDINGS: No restricted diffusion to suggest an [...] base soft tissues and orbits are unremarkable. ?? IMPRESSION Essentially normal examination. Few nonspecific T2 hyperintensities in the frontal white matter without associated abnormal enhancement or mass effect. Assessment / Plan: Germán Min is a 36 y.o. R-handed F with PMH of migraine, GERD, DM-2, anxiety, vertigo, and depression, here for follow-up of migraine and convulsive syncope. Neurological examination is unremarkable other than diminished vibratory sense distal to bilateral ankles and diminished deep tendon reflexes throughout, both of which are most likely secondary to diabetes. She continues to have syncope and hypotension with convulsions. She does not appear to be consuming enough salt and fluids, so for this reason we will start low dose fludrocortisone and advise that she buys compression stockingsto wear while she she works, as she is on her feet for her job. She was advised to closely monitor her blood glucose levels. For her migraines, as they are not very frequent (1-2 times per month), wewill prescribe eletriptan for breakthrough, and she can continue to use naproxen and hydroxyzine, as well. For acute treatment of her current migraine, which has been continuous for one week, we havegiven her an IM injection of toradol in the office today. We do not feel that starting a migraine prophylaxis medication is needed at this time. Below plan discussed with patient Patient Instructions You were seen in neurology for follow-up of your convulsive syncope and migraine Plan: Migraine: -toradol 60 mg IM in the office today - patient advised to not take anymore naproxen today. She will complete the 7 day prescription of naproxen and hydroxyzine -keep a headache diary - bring to your next appointment -at headache onset: -for mild headache - take naproxen and/or hydroxyzine twice a day as needed -for severe headache - take eletriptan - may repeat x1 after 2 hrs - do not use more than 2 days per week Syncope: -start fludrocortisone 100 microgram once per day - be sure to closely monitor blood sugar -buy compression stockings Return in [address] Terrazas. Please see her addendum for any additional comments. Robbin Costa MD Neurology Resident, PGY-4 Personal Pager [phone] 09/05/2017 Attending attestation note: I discussed the patient's case with the resident. Together we formulated a plan. I agree with the resident's documentation and plan as outlined in the note. It sounds as though the patient has convulsive syncope. Consider tilt table testing. She should certainly get compression stockings, increase fluid and salt intake. With a trial of low dose fludrocortisone (0.1mg), she will be asked to closely monitor BP and blood sugar. Ideally, she should check her BP when supine, sitting, and standing upon awakening, before and one hour after lunch, and before going to bed.Consider topiramate in the future for headache prophylaxis. Maddie Terrazas MD documented in this encounter Plan of Treatment Upcoming Encounters Date Type Department Care Team (Late st Contact Info) Description 12/03/2024 1:00 PM EDT Appointment Hematology [place] [phone] 12/03/2024 2:00 PM EDT Office Visit Hematology [place] [phone] Pelon Wisdom MD [facility] DR HEMATOLOGY [place] [address] Oksana Payne APRN [facility] DR HEMATOLOGY [place] [address] documented as of this encounter Visit Diagnoses Diagnosis Syncope, unspecified syncope type Migraine without aura and without status migrainosus, not intractable Migraine without aura, without mention of intractable migraine without mention of status migrainosus documented in this encounter Administered Medications Inactive Administered Medications - up to 3 most recent administrations Medication Order MAR Action Action Date Dose Rate Site ketorolac (TORADOL) injection 60 mg 60 mg, Intramuscular, ONCE, 1 dose, On Fara 09/05/17 at 1445, Routine Given 09/05/2017 2:45 PM EDT 60 mg Righ t Gluteal documented in this encounter Care Teams Environmental Engineering Intern Relationship Specialty Start Date End Date Rosy Tavarez, REMOTE COMPUTER TERMINAL OPERATOR [facility] [place] [address] PCP - General General Internal Medicine 02/14/17 6/2 05/11 documented as of this encounter
--- OUTSIDE RECORDS SUMMARY | 2024-01-03 01:06 | XMS_ITS | Encounter Summary ---
Author Organization [facility] [place] [address] Care Team Providers Care Parachute Panel Joiner Name Role Phone Rosy Tavarez Sabrina STILES Primary Care Provider Encounter Details Date Type Department Care Team (Late Contact Info) Description 10/01/2017 Orders [place] [phone] Moriah Tobar, GENERAL SUPERINTENDENT [address] [place] [address] Social History Tobacco Use Types Packs/Day Years [...] PM EDT Appointment Hematology [place] [phone] 12/03/2024 2:00 PM EDT Office Visit Hematology [place] [phone] Pelon Wisdom MD [facility] [address] [place] [address] Oksana Payne APRN [facility] [place] [address] documented as of this encounter Visit Diagnoses Not on filedocumented in this encounter Care Teams Parachute Panel Joiner Relationship Specialty Start Date End Date Rosy Tavarez APRN [facility] [place] [address] PCP - General General Internal Medicine 02/14/1709/21 documented as of this encounter
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
--- OUTSIDE RECORDS SUMMARY | 2024-01-03 01:06 | XMS_ITS | Encounter Summary ---
Author Organization [facility] [place] [address] Care Team Providers Care Livestock Nutrition Territory Manager Name Role Phone Rosy Tavarez APRN Primary Care Provider Reason for Visit * Reason Onset Date Comments Prior Authorization 10/02/2017 Encounter Details Date Type Department Care Team (Late st Contact Info) Description 10/02/2017 Telephone [place] [phone] Kimberley Amor CMA GASTROENTEROLOGY DEPT Prior Authorization Social History Tobacco Use Types Packs/Day Years [...] encounter Miscellaneous Notes * Telephone Encounter - Kimberley Amor CMA - 10/02/2017 10:32 AM EDT [place] [facility] ? ID: [id number] ? Medication xifaxan 550 mg TID for 14 days ? Tried: imodium, pepto, amitriptyline, cholestryamine *treatment failure* ?? Decision: approved for 14 days ?? Tracking ID: [id number] documented in this encounter Plan of Treatment Upcoming Encounters Date Type Department Care Team (Late Contact Info) Description 12/03/2024 1:00 PM EDT Appointment Hematology [place] [address] 12/03/2024 2:00 PM EDT Office Visit Hematology [place] [address] Pelon Wisdom MD [facility] DR HEMATOLOGY [place] [address] Oksana Payne APRN [facility] DR HEMATOLOGY [place] [address] documented as of this encounter Visit Diagnoses Not on filedocumented in this encounter Care Teams Livestock Nutrition Territory Manager Relationship Specialty Start Date End Date Rosy Tavarez, GO [facility] [place] [address] PCP - General General Internal Medicine 02/14/17 6/05/11 documented as of this encounter
--- OUTSIDE RECORDS SUMMARY | 2024-01-03 01:06 | XMS_ITS | Encounter Summary ---
Author Organization [facility] [place] [address] Care Team Providers Care Daycare Teacher Name Role Phone TavarezRosy allen Sabrina STILES Primary Care Provider Encounter Details Date Type Department Care Team (Late Contact Info) Description 09/10/2017 External Results Internal Medicine at [facility] [address] [place] [address] Gabriella Martinez, [facility] Social History Tobacco Use Types Packs/Day Years [...] PM EDT Appointment H[place]ology [place] [phone] 12/03/2024 2:00 PM EDT Office Visit [place]ematology [place] [phone] Pelon Wisdom MD [facility] DR HEMATOLOGY [place] [address] Oksana Payne APRN [facility] HEMATOLOGY [place] [address] documented as of this encounter Procedures Procedure Name Priority Date/Time Associated Diagnosis Comments EXTERNAL LAB CBC CMP THYROID RESULTS PANEL Routine 08/29/2017 2:45 PM EDT documented in this encounter Results * (ABNORMAL) CBC / CMP / Thyroid External Results (08/29/2017 2:45 PM EDT) White Blood Cell 7.2(Exter nal Lab) EXTERNAL LAB Red Blood Cell 3.88(ExtL ) EXTERNAL LAB Comment:external reference r keesha 4.00-5.20 Hemoglobin 13.5(Exte rnal Lab) EXTERNAL LAB Hematocrit 37.7(Exte rnal Lab) EXTERNAL LAB Mean Cell Volume 97.0(Exte rnal Lab) EXTERNAL LAB Platelet 231(Exter nal Lab) EXTERNAL LAB Sodium 139(Exter nal Lab) EXTERNAL LAB Potassium 3.2(ExtL) EXTERNAL LAB Comment:external reference r keesha 3.5-5.1 Chloride 104(Exter nal Lab) EXTERNAL LAB Carbon Dioxide 23(Auger Machine Offbearer al Lab) EXTERNAL LAB Blood Urea Nitrogen 7(Externa l Lab) EXTERNAL LAB Creatinine 0.8(Exter nal Lab) EXTERNAL LAB Glucose 180(ExtH) EXTERNAL LAB Comment:external reference r keesha 74-106 Calcium 9.0(Exter nal Lab) EXTERNAL LAB Protein, Total 7.4(Exter nal Lab) EXTERNAL LAB Albumin 3.6(Exter nal Lab) EXTERNAL LAB Bilirubin, Total 0.62(Exte rnal Lab) EXTERNAL LAB Alkaline Phosphatase 70(Auger Machine Offbearer al Lab) EXTERNAL LAB Aspartate Aminotransferase 19(Auger Machine Offbearer al Lab) EXTERNAL LAB Alanine Aminotransferase 12(ExtL) EXTERNAL LAB Comment:external reference r keesha 13-61 08/29/2017 2:45 PM EDT Historical Provider EXTERNAL LAB [facility] EXTERNAL LAB documented in this encounter Visit Diagnoses Not on filedocumented in this encounter Care Teams Daycare Teacher Relationship Specialty Start Date End Date Rosy Tavarez APRN [facility] [place] [address] PCP - General General Internal Medicine 02/14/1709/21 documented as of this encounter
--- OUTSIDE RECORDS SUMMARY | 2024-01-03 01:06 | XMS_ITS | Encounter Summary ---
Author Organization [facility] [place] [address] Care Team Providers Care Painter Supervisor Name Role Phone Rosy Tavarez APRN Primary Care Provider Reason for Visit * Reason Onset Date Comments Medication Refill 04/29/2017 Encounter Details Date Type Department Care Team (Late Contact Info) Description 04/29/2017 Refill [place] [phone] Isabel Hicks MD [facility] [place] [address] Diabetes mellitus without complication Social History Tobacco Use Types Packs/Day Years [...] PM EDT Appointment Hematology [place] [phone] 12/03/2024 2:00 PM EDT Office Visit Hematology [place] [phone] Pelon Wisdom MD [facility] DR HEMATOLOGY AND ONCOLOGY [place], [place] [phone] Oksana Payne APRN [facility] [place]ATOLOGY [place] [address] documented as of this encounter Visit Diagnoses Diagnosis Diabetes mellitus without complication Type II or unspecified type diabetes mellitus without mention of complication, not stated as uncontrolled documented in this encounter Care Teams Painter Supervisor Relationship Specialty Start Date End Date Rosy Tavarez, CITY ADMINISTRATOR [facility] [place] [address] PCP - General General Internal Medicine 02/14/17 6/05/11 documented as of this encounter
--- OUTSIDE RECORDS SUMMARY | 2024-01-03 01:06 | XMS_ITS | Encounter Summary ---
[place] [address] Care Team Providers Care Freight Dispatcher Name Role Phone Rosy Tavarez APRN Primary Care Provider [phone] Reason for Referral * Physical Therapy (Routine) - Specialty Diagnoses / Procedures Referred By Contac t Referred To Contact Physical Therapy Diagnoses Chest wall pain Rosy Tavarez APRN [facility] [address] [place] [address] Referral ID Status Reason Start Date Expiration Date V isits Requested Visits Authorized [id number] Evaluate and Treat 08/30/2017 02/26/2018 10 10 * Consultation (Urgent) - Specialty Diagnoses / Procedures Referred By Contac t Referred To Contact Neurology Diagnoses Intractable chronic migraine without aura and with status migrainosus Rosy Tavarez APRN [facility] [place] [address] [facility] [address] [place] [phone] Referral ID Status Reason Start Date Expiration Date Visits Requested Visits Authorized [id number] Specialty Service Requested 08/30/2017 08/30/2018 1 1 Reason for Visit * Reason Comments Follow-up migraine 2 days ago, vomiting, loss of vision and felt like she was going to pass out, threw up for over an hour, camron Encounter Details Date Type Department Care Team (Late st Contact Info) Description 08/30/2017 10:00 AM EDT Office Visit Internal Medicine at [facility] [place] [phone] Rosy Tavarez, GO [facility] [place] [address] Intractable chronic migraine without aura and with status migrainosus; Chest wall pain; Syncope, unspecified syncope type Social History Tobacco Use Types Packs/Day [...] Sign Reading Time Taken Comments Blood Pressure 115/62 08/30/2017 9:39 AM EDT Pulse 76 08/30/2017 9:39 AM EDT Temperature 36.5 ??C (97.7 ??F) 08/30/2017 9:39 AM ED T Respiratory Rate 16 08/30/2017 9:39 AM EDT Oxygen Saturation 98% 08/30/2017 9:39 AM EDT Inhaled Oxygen Concentration - - Weight 78.9 kg (174 lb) 08/30/2017 9:39 AM EDT Height 164.5 cm (5' 4.76) 08/30/2017 9:39 AM ED T Body Mass Index 29.17 08/30/2017 9:39 AM EDT documented in this encounter Patient Instructions * Patient Instructions* Rosy Tavarez, GO - 08/30/2017 10:01 AM EDT Images from the original note were not included. Seizure: Care Instructions Your Care Instructions Seizures are caused by abnormal patterns of electrical signals in the brain. They are different foreach person. Seizures can affect movement, speech, vision, or awareness. Some people have only slight shaking ofa hand and do not pass out. Other people may pass out and have violent shaking of the whole body. Some people appear to stare into space. They are awake, but they can't respond normally. Later, they may not remember what happened. You may need tests to identify the type and cause of the seizures. A seizure may occur only once, or you may have them more than one time. Taking medicines as directed and following up with your doctor may help keep you from having more seizures. The doctor has checked you carefully, but problems can develop later. If you notice any problems ornew symptoms, get medical treatment right away. Follow-up care is a zamora part of your treatment and safety. Be sure to make and go to all appointments, and call your doctor if you are having problems. It's also a good idea to know your test resultsand keep a list of the medicines you take. How can you care for yourself at home? ?? Be safe with medicines. Take your medicines exactly as prescribed. Call your doctor if you thinkyou are having a problem with your medicine. ?? Do not do any activity that could be dangerous to you or others until your doctor says it is safe to do so. For example, do not drive a car, operate machinery, swim, or climb ladders. ?? Be sure that anyone treating you for any health problem knows that you have had a seizure and what medicines you are taking for it. ?? Identify and avoid things that may make you more likely to have a seizure. These may include lack of sleep, alcohol or drug use, stress, or not eating. ?? Make sure you go to your follow-up appointment. When should you call for help? Call 911 anytime you think you may need emergency care. For example, call if: ? ?? You have another seizure. ? ?? You have more than one seizure in 24 hours. ? ?? You have new symptoms, such as trouble walking, speaking, or thinking clearly. ?Call your doctor now or seek immediate medical care if: ? ?? You are not acting normally. ?Watch closely for changes in your health, and be sure to contact your doctor if you have any problems. Where can you learn more? Visit our health information library at [email or web address]. You can also view health information on P[employer], your personal patient account. Log in or sign uptoday. Enter M599 in the search box to learn more about Seizure: Care Instructions. Current as of: February 03, 2016 Content Version: 11.4 ?? [id number] [employer]. Care instructions adapted under license by [facility]. If you have questions about a medical condition or this instruction, always ask your healthcare professional. [employer] disclaims any warranty or liability for your use of this information. documented in this encounter Progress Notes * Rosy Tavarez, GO - 08/30/2017 10:00 AM EDT Subjective: Patient ID: Emma Min is a 37 y.o. female. HPI Emma is here for follow up of ER work up yesterday and new acute onset, migraine with vomiting, diaphoresis with LOC with seizure witnessed by two co- workers. They took her to [place] for full evaluation. Her sugar was not low(195), CT of head was negative, given IVF and Zofran and discharged. Today she feels more like herself and no further HATCH. See scanned document from [facility]. 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 Continued chest wall pain - had gotten better in PT but came back as soon as she stopped. This was worked up for cardiac and breast previously and all negative. Review of Systems Constitutional: Negative for activity change, appetite change, chills, diaphoresis, fatigue, fever and unexpected weight change. HENT: Negative for congestion, rhinorrhea, sore throat and trouble swallowing. Eyes: Negative for visual disturbance. Respiratory: Negative for cough and shortness of breath. Cardiovascular: Negative for chest pain and palpitations. Gastrointestinal: Negative for abdominal pain, constipation, diarrhea, nausea and vomiting. Genitourinary: Negative for difficulty urinating and dysuria. Musculoskeletal: Negative for arthralgias. Skin: Negative for rash. Neurological: Negative for headaches. Psychiatric/Behavioral: Negative for dysphoric mood and sleep disturbance. The patient is not nervous/anxious. Objective: Physical Exam Constitutional: She is oriented to person, place, and time. She appears well- developed and well-nourished. HENT: Head: Normocephalic and atraumatic. Right Ear: External ear normal. Left Ear: External ear normal. Mouth/Throat: Oropharynx is clear and moist. No oropharyngeal exudate. Eyes: Conjunctivae and EOM are normal. Pupils are equal, round, and reactive to light. Neck: Neck supple. Cardiovascular: Normal rate and regular rhythm. Lymphadenopathy: She has no cervical adenopathy. Neurological: She is alert and oriented to person, place, and time. She has normal strength. No cranial nerve deficit or sensory deficit. GCS eye subscore is 4. GCS verbal subscore is 5. GCS motor subscore is 6. Reflex Scores: Patellar reflexes are 2+ on the right side and 2+ on the left side. Skin: Skin is warm and dry. Vitals reviewed. Assessment and Plan: Emma was seen today for follow-up of ER visit yesterday. Will have Neurology review due to concern for seizure. Diagnoses and all orders for this visit: Intractable chronic migraine without aura and with status migrainosus - Referral to Neurology - Hemoglobin A1c; Future - CBC (with Diff); Future - Vitamin D, 25-Hydroxy; Future - Hemoglobin A1c - CBC (with Diff) - Vitamin D, 25-Hydroxy - Hemogram - Differential, Automated Chest wall pain - Referral to Physical Therapy Syncope, unspecified syncope type documented in this encounter Plan of Treatment Upcoming Encounters Date Type Department Care Team (Late st Contact Info) Description 12/03/2024 1:00 PM EDT Appointment [place]ology [place] [phone] 12/03/2024 2:00 PM EDT Office Visit Hematology [place] [address] Pelon Wisdom MD [facility] [address] [place] [address] Oksana Payne APRN [facility] [place] [address] Scheduled Referrals Name Type Priority Associated Diagnoses Orde r Schedule Referral to Neurology Outpatient Referral Routine Intractable chronic migraine without aura and with status migrainosus Ordered: 08/30/2017 Referral to Physical Therapy Outpatient Referral Routine Chest wall pain Ordered: 08/30/2017 documented as of this encounter Procedures Procedure Name Priority Date/Time Associated Diagnosis Comments HEMOGRAM Routine 08/30/2017 10:38 AM EDT Intractable chronic migraine without aura and with status migrainosus DIFFERENTIAL, AUTOMATED Routine 08/30/2017 10:38 AM EDT Intractable chronic migraine without aura and with status migrainosus VITAMIN D, 25-HYDROXY Routine 08/30/2017 10:38 AM EDT Intractable chronic migraine without aura and with status migrainosus CBC (WITH DIFF) Routine 08/30/2017 10:38 AM EDT Intractable chronic migraine without aura and with status migrainosus HEMOGLOBIN A1C Routine 08/30/2017 10:38 AM EDT Intractable chronic migraine without aura and with status migrainosus documented in this encounter Results * Differential, Automated (08/30/2017 10:38 AM EDT) Neutrophil % 60.1 % [facility] Neutrophil Absolute 4.29 1.70 - 6.10 x10(3)/[facility] Lymph % 29.0 % [facility] Lymphocytes Abs 2.1 0.9 - 3.2 x10(3)/[facility] Monocyte % 7.0 % [facility] Monocyte Abs 0.5 0.3 - 0.9 x10(3)/[facility] Eos % 3.2 % [facility] Eosinophils Abs 0.2 0.0 - 0.4 x10(3)/[facility] Basophil % 0.6 % [facility] Baso Absolute 0.0 0.0 - 0.1 x10(3)/[facility] Immature Gran % 0.10 % [facility] Comment: Immature granulocytes(IG's)percentage and absolute count will include metamyelocytes, myelocytes, and promyelocytes. Blood smears from CBCs yielding IG's will be scanned manually for concordance. If this scan disagrees with the automated IG or if promyelocytes are noted, a manual differential will be performed. Immature Gran Absolute 0.01 0.00 - 0.04 x10(3)/mcL [facility] Blood specimen (specimen) 08/30/2017 10:38 AM EDT 08/30/2017 10:45 AM EDT Narrative Resulting Agency Comment Spec In Lab Rosy Tavarez APRN HEMATOLOGY ORDERABLE S [facility] [place] [address] * (ABNORMAL) Hemogram (08/30/2017 10:38 AM EDT) White Blood Cell 7.1 4.0 - 9.5 x10(3)/mc L [facility] Red Blood Cell 3.88(L) 4.00 - 5.21 x10(6)/mc L [facility] Hemoglobin 13.5 11.7 - 15.5 gm/dL [facility] Hematocrit 37.8 35.7 - 45.8 % [facility] Mean Cell Volume 97.4(H) 82.6 - 94.4 fL [facility] Mean Cell Hemoglobin 34.8(H) 27.1 - 32.0 pg [facility] Mean Cell Hemoglobin Concentration 35.7(H) 31.7 - 35.0 gm/dL [facility] Platelet 242 145 - 357 x10(3)/mc L [facility] RDW Standard Deviation 41.1 37.0 - 46.0 [facility] RDW coefficient of variation 11.6 11.5 - 14.1 % [facility] Mean Platelet Volume 11.4 7.6 - 12.9 fL [facility] NRBC% auto 0.0 % [facility] NRBC Absolute 0.000 0.000 - 0.000 x10(3)/mc L [facility] Blood specimen (specimen) 08/30/2017 10:38 AM EDT 08/30/2017 10:45 AM EDT Narrative Resulting Agency Comment Spec In Lab Rosyfaustino Tavarez APRN HEMATOLOGY ORDERABLE S Performing Organization Address City/[facility]/ZIP Co de Phone Number [facility] [place] [address] * (ABNORMAL) Vitamin D, 25-Hydroxy (08/30/2017 10:38 AM EDT) Vitamin D Total 25 OH 7(L) 30 - 100 ng/mL [facility] Comment: Deficient <10 ng/mL Insufficient 10 to 29 ng/mL Sufficient 30 to 100 ng/mL Potential Intoxication >100 ng/mL According to the [place] National Osteoporosis Foundation, Vitamin D concentrations >30 ng/mL are sufficient to protect bone health. ??The National Kidney Foundation has similarly stated that patients with Vitamin D concentrations <30ng/mL should be considered to be insufficient or deficient. http://BotScanner.CCS Environmental/nkf-guidelines http://BotScanner.CCS Environmental/nejm-VitD The [employer] iSYS Vitamin D Immunoassay detects both 25-OH Vitamin D2 and 25-OH Vitamin D3, but only a total Vitamin D concentration is reported. Blood specimen (specimen) 08/30/2017 10:38 AM EDT 08/30/2017 1:36 PM EDT Narrative Resulting Agency Comment Spec In Lab Rosy Tavarez APRN CHEMISTRY ORDERABLES Performing Organization Address City/[facility]/ZIP Co de Phone Number [facility] [place] [address] * (ABNORMAL) Hemoglobin A1c (08/30/2017 10:38 AM EDT) Hemoglobin A1c 8.2(H) 4.3 - 5.6 % [facility] Comment: Reference Range: 4.3 [...] Mellitus, Diabetes Care 2013; 36: Suppl. 1, E17-43 Estimated Average Glucose 189 mg/dL [facility] Comment: eAG equivalents for [...] into estimated average glucose values. ??Diabetes Care 2008:31(8):3740-4898. Blood specimen (specimen) 08/30/2017 10:38 AM EDT 08/30/2017 10:45 AM EDT Narrative Resulting Agency Comment Spec In Lab Rosy Tavarez LEARNING SERVICES COORDINATOR CHEMISTRY ORDERABLES [facility] [place] [address] documented in this encounter Visit Diagnoses Diagnosis Intractable chronic migraine without aura and with status migrainosus Chronic migraine without aura, with intractable migraine, so stated, with status migrainosus Chest wall pain Painful respiration Syncope, unspecified syncope type documented in this encounter Care Teams Freight Dispatcher Relationship Specialty Start Date End Date Rosy Tavarez, LEARNING SERVICES COORDINATOR [facility] [place] [address] PCP - General General Internal Medicine 02/14/17 6/05/11 documented as of this encounter
--- OUTSIDE RECORDS SUMMARY | 2024-01-03 01:06 | XMS_ITS | Encounter Summary ---
Author Organization [facility] [place] [address] Care Team Providers Care Entertainment Musician Name Role Phone Rosy Tavarez GO Primary Care Provider Reason for Visit * Reason Onset Date Comments Prior Authorization 05/08/2017 Encounter Details Date Type Department Care Team ([facility] st Contact Info) Description 05/08/2017 Telephone [place] [phone] Jackie Monahan Prior Authorization Social History Tobacco Use Types [...] encounter Miscellaneous Notes * Telephone Encounter - Jackie Monahan - 05/21/2017 8:22 AM EST PA APPROVED FOR 1.8MG DAILY 9ML PER 30 DAYS 05/20/17-05/20/18 * Telephone Encounter - Jackie Monahan - 05/08/2017 2:32 PM EST Medication Prior Authorization ASHLEE Medication name/dose/directions: RUTH METRIX - TEST 4X DAILY Rationale for request: TYPE II DM Health plan: [place] [employer] ([facility]) Authorizing route service representative name: EBEN Faxed to health plan on: 05/08/17 Health plan decision: MEDICATION DOES NOT REQUIRE PRIOR AUTHORIZATION. IT IS LISTED IN THE PLAN FORMULARY. THERE WAS A PAID CLAIM FOR THIS MEDICATION ON 05/08/17 Quantity approved: Authorization number: [id number] Start date: End date: documented in this encounter Plan of Treatment Upcoming Encounters Date Type Department Care Team (Late st Contact Info) Description 12/03/2024 1:00 PM EDT Appointment Hematology [place] [address] 12/03/2024 2:00 PM EDT Office Visit Hematology [place] [address] Pelon Wisdom MD [facility] DR HEMATOLOGY [place] [address] Oksana Payne APRN [facility] [address] HEMATOLOGY [place] [address] documented as of this encounter Visit Diagnoses Not on filedocumented in this encounter Care Teams Entertainment Musician Relationship Specialty Start Date End Date Rosy Tavarez APRN [facility] [place] [address] PCP - General General Internal Medicine 02/14/17 6/2 05/11 documented as of this encounter
--- OUTSIDE RECORDS SUMMARY | 2024-01-03 01:06 | XMS_ITS | Encounter Summary ---
Author Organization [facility] [place] [address] Care Team Providers Care Care Navigator Name Role Phone Rosy Tavarez GO Primary Care Provider Encounter Details Date Type Department Care Team (Late st Contact Info) Description 10/28/2017 2:00 PM EDT [place] [address] Sujata Reyez MD [facility] [place] [address] Barrie West MD [facility] [place] [address] Tension-type headache, not intractable, unspecified chronicity pattern; Syncope, unspecified syncope type Social History Tobacco [...] Sign Reading Time Taken Comments Blood Pressure 106/60 10/28/2017 2:09 PM EDT Pulse 92 10/28/2017 2:09 PM EDT Temperature - - Respiratory Rate - - Oxygen Saturation - - Inhaled Oxygen Concentration - - Weight 76.2 kg (168 lb) 10/28/2017 2:09 PM EDT Height 162.6 cm (5' 4) 10/28/2017 2:09 PM EDT r eported Body Mass Index 28.84 10/28/2017 2:09 PM EDT documented in this encounter Patient Instructions * Patient Instructions* Barrie West MD - 10/28/2017 2:00 PM EDT 1.) Nortryptiline is the new medication we discussed. Please take 10 mg nightly for 1 week. If you are tolerating this well, please increase to 20 mg nightly thereafter. Please check in in 4 weeks tolet me know how things are going. 2.) Please limit the use of the Relpax to NO MORE than 2 times a week. Try to take the medication only at times when your headache is greater than 6/10 in nature. If you feel as though you are not able to limit yourself to two times a week with this medication, please feel free to call in then as well and we will try to formulate a new plan. documented in this encounter Progress Notes * Barrie West MD - 10/28/2017 2:00 PM EDT Neurology Clinic Note Patient Name: Emma Min : 1980 PCP: Rosy Tavarez APRN Clinic Attending: Dr. Reyez Patient ID: Emma Min is a 36 y.o. R-handed F with PMH of migraine, GERD, DM-2, anxiety, vertigo, and depression, here for follow-up of migraine and convulsive syncope. This is Emma's first visit with me as she used to see Dr. Costa prior to his departure from our neurology clinic. Patient Active Problem List Diagnosis ??? Seizure-like activity ??? Depression ??? Anxiety ??? Gastroesophageal reflux disease without esophagitis ??? Uncontrolled diabetes mellitus type 2 without complications Interval History: Notes that she has been using the eletriptan about twice a day. She notes that it is more of a tension headache. She is not getting light sensitivity on phonophobia with it. She does have the syncopewhen she moves her head too fast and that lasts for a couple of seconds. Notes the headaches are usually right at the top of her forehead or just in band like pattern right above her eyes. Notes the headaches are essentially there everyday. Usually they are about a 5/10 in nature. Still, once in a great a while, she gets the headaches so bad that it causes her to vomit. Notes this has happened once since her last visit with Dr. Costa. Other time she gets extremely nauseous. Blood glucose Has been in the 120s right before breakfast. She checks it 2-3 times a day usually. Has not checkedblood sugar at the height of a headache. Sees PT twice a week for pectoral issues. She notes that when she has gone and they have massaged her upper back, she can feel better even on days she walks in with a migraine. Syncope Notes that she has been doing well from this standpoint. Has been taking the fludrocortisone but has not noticed anything considerable since starting it. Notes daily stress. Past Medical History: Diagnosis Date ??? Allergic state ??? Anxiety ??? Depression Medications: Medications 10/28/17 1512 Medication Sig Taking? omeprazole (PRILOSEC) 40 mg Capsule, Delayed Release(E.C.) Take 1 capsule by mouth daily. Yes VICTOZA 2-SHANA 0.6 mg/0.1 mL (18 mg/3 mL) Pen Injector Inject 1.8 mg subcutaneously every morning. Yes eletriptan (RELPAX) 20 mg Tablet Take 1 tablet by mouth once as needed. may repeat in 2 hours if necessary Patient taking differently: Take 20 mg by mouth daily. may repeat in 2 hours if necessary Yes fludrocortisone (FLORINEF) 0.1 mg Tablet Take 1 tablet by mouth daily. Yes hydrOXYzine (VISTARIL) 25 mg Capsule Take 1 capsule by mouth 2 times daily. Take as needed for migraine Yes naproxen sodium (ANAPROX) 550 mg Tablet Take 1 tablet by mouth 2 times daily as needed (migraine). Yes cholecalciferol, Vitamin D3, 50,000 unit Capsule [...] Mis.(Non-Drug; Combo Route) route 4 times daily. Yes acetaminophen (TYLENOL) 500 mg Tablet Take 2 tablets by mouth every 6 hours as needed for Pain. Yes Blood-Glucose Meter Misc Please dispense Salas Metrix meter. E11.9 Yes fexofenadine (SHELBI) 180 mg Tablet Take 1 tablet by mouth daily as needed. Yes meclizine (ANTIVERT) 25 mg Tablet Take 1 tablet by mouth 3 times daily as needed. Yes glucose (DEX4 GLUCOSE) 4 gram Tablet, Chewable Take 4 tablets by mouth as needed for Low blood sugar. Yes Allergy: Allergies Allergen Reactions ??? Latex [...] no shortness of breath GI: +nausea, +vomiting, diarrhea : No dysuria, no incontinence Heme: No bleeding or bruising Endo: No polyuria or cold intolerance Neuro: See HPI Psych: No depression, abnormal sleep (5-6 hours a night) [x] Review of systems otherwise negative Physical Exam: Vitals: 10/28/17 1409 BP: 106/60 BP Location (NBP): Left arm Patient Position: Sitting BP Cuff Sizes: Adult (25-34 cm) Pulse: 92 Weight: 76.2 kg (168 lb) Height: 162.6 cm (5' 4) Gen: [...] L Elbow flexion 5/5 R, 5/5 L Medical Billing And Coding Specialist LE: 5/5 R, 5/5 L Hip flexion [...] symmetric Heel-viveros intact No tremor Gait: Stable, steady, able to walk on tip-toes and heels without difficulty Labs: None to review Diagnostic Tests and Imaging: MRI brain, 09/01/17: [...] enhancement or mass effect. Assessment / Plan: Emma Min is a 36 y.o. R-handed F with PMH of migraine, GERD, DM-2, anxiety, vertigo, and depression, here for follow-up of migraine and convulsive syncope. This is Emma's first visit with me as she used to see Dr. Costa prior to his departure from our neurology clinic. Emma continues to have headaches and appears to the frequency has actually increased since the last time she was seen in neurology clinic. Her headaches do not classically fit into the migraines category and appeared to be more like tension headaches. I discussed this notion with her and we decided to start her on nortriptyline as a prophylactic medication at this time. I also asked her to refrain from using the Relpax for headaches that are less than a 6 in severity, on a 10 scale. She is to start on nortriptyline at 10 mg nightly and if she is tolerating that well can increase to 20 mg nightly after 2 weeks. In 4 weeks I would like for her to call me and let me know how things are going and if we need to increase the medication we can do so at that time. It would also be beneficial for her to keep a headache diary which will include noting time of day, foods of the day if possible,and situation of when the headache occurred. In addition I also asked her to pay closer attention to the headaches that occur in the morning, if possible to note if her snoring is increased or worse on the nights preceding a wakeup headache. It may turntable engineer that she needs a sleep study to further evaluate for sleep apnea. For now will try the medication as noted above and discuss other treatment modalities if this fails. She appears to be doing well on Florinef and I have asked her to continue taking this. It may also be beneficial for her to check her blood pressure on a weekly basis if possible. Also recommend continued vigilant blood sugar monitoring. Plan: Tension Headaches -keep a headache diary - bring to next appointment -Start nortryptiline 10 mg QHS for 2 week Can increase to 20 mg QHS after 2 weeks if tolerating well -at headache onset: -for mild headache - take naproxen and/or hydroxyzine twice a day as needed -for severe headache - take eletriptan - may repeat x1 after 2 hrs - do not use more than 2 days per week Syncope: -Continue fludrocortisone 100 microgram once per day - be sure to closely monitor blood sugar Check in [address] Renard West MD Neurology Resident, PGY-4 Personal Pager [phone] 10/28/2017 * Sujata Reyez MD - 10/28/2017 2:00 PM EDT Attending Physician Attestation I saw and evaluated the patient with Dr. West. I have reviewed the medical records and thepatient's history during the visit and I agree with the details as written. My physical examinationconfirms the findings. The assessment and plan were formulated in discussion with me at the time of the visit and I agree with them as documented. Sujata Reyez MD documented in this encounter Plan of Treatment Upcoming Encounters Date Type Department Care Team (Late st Contact Info) Description 12/03/2024 1:00 PM EDT Appointment [place] [address] 12/03/2024 2:00 PM EDT Office Visit Hematology [place] [address] Pelon Wisdom MD [facility] [place] [address] Oksana Payne APRN [facility] [place] [address] documented as of this encounter Visit Diagnoses Diagnosis Tension-type headache, not intractable, unspecified chronicity pattern Syncope, unspecified syncope type documented in this encounter Care Teams Care Navigator Relationship Specialty Start Date End Date Rosy Tavarez APRN [facility] [address] PCP - General General Internal Medicine 02/14/1709/21 documented as of this encounter
--- OUTSIDE RECORDS SUMMARY | 2024-01-03 01:06 | XMS_ITS | Encounter Summary ---
[facility] [place] [address] Care Team Providers Care Canopy Stringer Name Role Phone Rosy Tavarez GO Primary Care Provider Reason for Visit * Reason Onset Date Comments Transitional Care Management 09/02/2017 Encounter Details Date Type Department Care Team (Late st Contact Info) Description 09/02/2017 Patient Outreach [place] [address] Che Jean, [facility] Transitional Care Management Social History Tobacco Use Types Packs/Day Years [...] encounter Miscellaneous Notes * Telephone Encounter - Che Dasilva [facility] - 09/02/2017 4:38 PM EDT Post Hospital Discharge Call Transitional Care 09/02/2017 Date of Current Admission 08/30/2017 Facility [facility] Date of most recent discharge to home 09/01/2017 Date of TCM phone call 09/02/2017 Person providing information: patient Discharge Diagnosis: Migraine Health Status: (Comprehension of reason for hospitalization) Pt reports hanging in there reports still has a HATCH since DC. Well aware of appointment with Neuro and hoping for med changes that will help break her current HATCH. Initially though appt was tomorrow However reminded pt that it appears her Neuro appt will be on Thursday at 1:30 pm. Pt verbalizedunderstanding Taking her new migraine meds as prescribed but reports they are not touching the pt's HATCH so the pt is trying to lay low and relax Medication Reconciliation: New Medication started: Yes Hydroxyzine 25 mg take 1 capsule BID x 1 week then as needed 1-2x daily Naproxen 500 mg 1 tab BID x 1 week then as needed Discontinued Medication: No Adherence Issues: (financial/transportation): None identified at this time Clarify Appointments: Assure that patient understands reason for followup appointments and contact information ??? PCP: No- pt declines offer for visit as she is seeing neurology for follow up and reports BG isdoing well. Pt has follow up with other specialists this upcoming month and is well aware to reach out if any s/sx present requiring primary care attention ??? Specialist: Yes, Neurology 09/05/17 ??? Diagnostic (lab/radiology) No Are coordination of discharge services (home care/DME/meals on wheels, example) needed? No Action Plan - assure patient understands action plan ??? What to do if emergent symptoms occur discussed Yes ??? What to do if urgent symptoms occur discussed Yes ??? Plan ahead for your office visit by bringing in your written questions. ??? Bring list of all medications or bring in actual medications to each office visit. Che Dasilva RPH, BCACP 09/02/17 4:38 PM documented in this encounter Plan of Treatment Upcoming Encounters Date Type Department Care Team (Late st Contact Info) Description 12/03/2024 1:00 PM EDT Appointment Hematology [place] [address] 12/03/2024 2:00 PM EDT Office Visit Hematology [place] [address] Pelon Wisdom MD [facility] [place] [address] Oksana Payne APRN [facility] [place] [address] documented as of this encounter Visit Diagnoses Not on filedocumented in this encounter Care Teams Canopy Stringer Relationship Specialty Start Date End Date Rosy Tavarez APRN [facility] [place] [address] PCP - General General Internal Medicine 02/14/17 6/2 05/11 documented as of this encounter
--- OUTSIDE RECORDS SUMMARY | 2024-01-03 01:06 | XMS_ITS | Encounter Summary ---
Author Organization [facility] Address [facility] [place] [address] Care Team Providers Care Operations Logistics Analyst Name Role Phone Rosy Tavarez GO Primary Care Provider [phone] Encounter Details Date Type Department Care Team (Late st Contact Info) Description 10/14/2017 11:00 AM EDT Office Visit Psychiatry and Behavioral Health at [facility] [place] [place] [address] Taye Lagos, PhD Post-traumatic stress disorder, chronic; [...] Progress Notes * Taye Lagos, PhD - 10/14/2017 11:00 AM EDT INDIVIDUAL THERAPY PROGRESS NOTE Time Spent: 45 minutes CHIEF COMPLAINT/DIAGNOSIS: Post-traumatic Stress Disorder, chronic;??Generalized Anxiety Disorder SUBJECTIVE: Ms. Min reported that she had a very stressful weekend after her roommate, who is her ex-boyfriend, expressed suicidal ideation to her. She took him to two separate ED and he was eventually hospitalized at . She stated that a friend of her girlfriend also committed suicide over thelast week and she is also in the middle of packing up her things to move into her new place with her girlfriend. TREATMENT MODALITY: CBT OBJECTIVE: We discussed how she has been handling the situation with her roommate. We discussed what her level of responsibility is for him and how she can best help him without it burdening her more. We discussed the suicide of her girlfriend's friend and how it has impacted both of them. We discussed situational exposures that she could complete over the week, which included being out with her girlfriend as she did not have the opportunity to do so over the last week. ASSESSMENT: Ms. Min denied any change in symptoms since last session. She had been using her coping skills previously learned to manage the stressful week. Patient-reported Psychiatry Followup scores and responses: PHQ9 MYD-H PHQ-9 RESPONSES 10/14/2017 Little interest or pleasure Several days Down, depressed, hopeless Several days Trouble sleeping Several days Tired or no energy Nearly every day Poor appetite or overeating More than half the days Feeling like a failure Several days Trouble concentrating (newspaper) Several days Moving or speaking slowly Several days Would be better off Not at all Phq9 Impairment Very difficult PHQ-9 Score 11 (Moderate Depression) GAD7 SAMPSON-7 Patient Reported Responses 10/14/2017 Nervous, anxious (Patient) More than half the [...] Difficulty (Patient) Very difficult SAMPSON-7 Score (Patient) 14 (Moderate Anxiety) Psychiatry Improvement Scale: Psychiatry Improvement Scale 10/14/2017 Improvement Scale Minimally improved PLAN: Revised goals or interventions: ??Continue PE, review in vivo exposures, discuss imaginal exposures ? Safety Risk Management: Denied SI/HI ? Assigned Homework: ??Go to dinner, spend time out in public with girlfriend * Ned Groves, PhD - 10/14/2017 11:00 AM EDT I have reviewed this [...] PM EDT Appointment Hematology [place] [address] 12/03/2024 2:00 PM EDT Office Visit Hematology [place] [address] Pelon Wisdom MD [facility] HEMATOLOGY [place] [address] Oksana Payne APRN [facility] HEMATOLOGY [place] [address] documented as of this encounter Visit Diagnoses Diagnosis Post-traumatic stress disorder, chronic SAMPSON (generalized anxiety disorder) Generalized anxiety disorder documented in this encounter Care Teams Operations Logistics Analyst Relationship Specialty Start Date End Date Rosy Tavarez APRN [facility] GENER[facility] [place] [address] PCP - General General Internal Medicine 02/14/1709/21 documented as of this encounter
--- OUTSIDE RECORDS SUMMARY | 2024-01-03 01:07 | XMS_ITS | Encounter Summary ---
Author Organization [facility] [place] [address] Care Team Providers Care Dental Office Manager Name Role Phone Leeanna Cohn MD Primary Care Provider [phone] Reason for Visit * Reason Onset Date Comments Medication Refill 01/01/2017 Encounter Details Date Type Department Care Team (Late Contact Info) Description 01/01/2017 Refill Endocrinology at [place] [phone] Mariaa De La Rosa, RN Social History Tobacco Use Types Packs/Day [...] Upcoming Encounters Date Type Department Care Team ([facility] Contact Info) Description 12/03/2024 1:00 PM EDT Appointment Hematology and Oncology at [place] [phone] 12/03/2024 2:00 PM EDT Office Visit Hematology [place] [address] Pelon Wisdom MD [facility] DR HEMATOLOGY [place] [address] Oksana Payne APRN [facility] HEMATOLOGY [place] [address] documented as of this encounter Visit Diagnoses Not on filedocumented in this encounter Care Teams Dental Office Manager Relationship Specialty Start Date End Date Leeanna Cohn MD [address] [place] [address] PCP - General 03/14/10 02/13/17 documented as of this encounter
--- OUTSIDE RECORDS SUMMARY | 2024-01-03 01:07 | XMS_ITS | Encounter Summary ---
[place] [address] Care Team Providers Care Medical Assistant Secretary Name Role Phone Rosy Tavarez GO Primary Care Provider [phone] Encounter Details Date Type Department Care Team (Late Contact Info) Description 03/21/2017 Telephone [place] [address] Ольга Carter LPN Social History Tobacco Use Types Packs/Day Years [...] encounter Miscellaneous Notes * Telephone Encounter - Ольга Carter LPN - 03/21/2017 11:16 AM EST Message from pharmacy asking if fax that Trulicity is non formulary was received. Call [phone] if not received documented in this encounter Plan of Treatment Upcoming Encounters Date Type Department Care Team (Late Contact Info) Description 12/03/2024 1:00 PM EDT Appointment Hematology [place] [address] 12/03/2024 2:00 PM EDT Office Visit Hematology [place] [address] Pelon Wisdom MD [facility] [address] [place] [address] Oksana Payne APRN [facility] [place] [address] documented as of this encounter Visit Diagnoses Not on filedocumented in this encounter Care Teams Medical Assistant Secretary Relationship Specialty Start Date End Date Rosy Tavarez, SENIOR PRODUCT MARKETING MANAGER [facility] [place] [address] PCP - General General Internal Medicine 02/14/17 605/11 documented as of this encounter
--- OUTSIDE RECORDS SUMMARY | 2024-01-03 01:07 | XMS_ITS | Encounter Summary ---
Author Organization [facility] Address [facility] [place] [address] Care Team Providers Care Rotogravure Press Operator Name Role Phone TavarezRosy allen GO Primary Care Provider Encounter Details Date Type Department Care Team (Late st Contact Info) Description 04/18/2017 Telephone Psychiatry [place] [phone] Ivy Soria MD [facility] [place] [address] Social History Tobacco Use Types Packs/Day Years [...] encounter Miscellaneous Notes * Telephone Encounter - Ivy Soria MD - 04/18/2017 4:13 PM EST Received message from Team B that patient's depression has worsened and had question about buspirone that was recently started. I called Emma via telephone. She states she recently started buspirone for anxiety but more recently has had worsening depression with passive SI. She states she's never alone at home and she would never hurt herself and has no plan or intent. Since I have never met her before, I conveyed that Iwould not change medications over the phone and I would pass along her concerns to Dr. Daniels to try to get her a sooner appointment in the next week or two. Patient was agreeable to this plan. documented in this encounter Plan of Treatment Upcoming Encounters Date Type Department Care Team (Late st Contact Info) Description 12/03/2024 1:00 PM EDT Appointment [place] [address] 12/03/2024 2:00 PM EDT Office Visit [place]ology [place] [address] Pelon Wisdom MD [facility] DR [place]ATOLOGY [place] [address] Oksana Payne APRN [facility] [address] [place] [address] documented as of this encounter Visit Diagnoses Not on filedocumented in this encounter Care Teams Rotogravure Press Operator Relationship Specialty Start Date End Date Rosy Tavarez APRN [facility] [place] [address] PCP - General General Internal Medicine 02/14/17 6/2 05/11 documented as of this encounter
--- OUTSIDE RECORDS SUMMARY | 2024-01-03 01:07 | XMS_ITS | Encounter Summary ---
[place] [address] Care Team Providers Care Slice Plug Cutter Operator Helper Name Role Phone TavarezRosy allen Sabrina STILES Primary Care Provider Reason for Visit * Reason Comments Follow-up Encounter Details Date Type Department Care Team (Latest Contact Info) Description 04/29/2017 11:00 AM EST Office [place] [address] Moriah Tobar APRN [address] [place] [address] Gastroesophageal reflux disease, esophagitis presence not specified; Irritable bowel syndrome with diarrhea; Bloating Social History Tobacco Use Types Packs/Day [...] Sign Reading Time Taken Comments Blood Pressure 117/74 04/29/2017 10:55 AM EST Pulse 86 04/29/2017 10:55 AM EST Temperature - - Respiratory Rate - - Oxygen Saturation - - Inhaled Oxygen Concentration - - Weight 86.7 kg (191 lb 3.2 oz) 04/29/2017 10:55 AM EST Height 162.6 cm (5' 4) 04/29/2017 10:55 AM EST Body Mass Index 32.82 04/29/2017 10:55 AM EST documented in this encounter Patient Instructions * Patient Instructions* Moriah Tobar APRN - 04/29/2017 11:00 AM EST 1. Increase omeprazole 40mg once daily 30-60 minutes prior to eating first meal of the day. 2. Avoid eating within 2-4 hours of bedtime 3. Small frequent meals throughout the day. 4. Hydrogen breath test for small intestinal bacterial overgrowth (SIBO). If this is negative we will check for lactose allergy. 5. If the hydrogen breath test is positive, I will call you. 6. Follow up as needed. documented in this encounter Progress Notes * Moriah Tobar APRN - 04/29/2017 11:00 AM EST SCIENTIST/ENGINEER: Moriah Tobar APRN PCP: Rosy Tavarez APRN REQUESTING PROVIDER: Rosy Tavarez APRN REASON FOR VISIT This is a 37 y.o. female with a history significant for DM2. She is returning to me today in followup. GI PROBLEM LIST 1. GERD --MEDICATION TRIALS *Ranitidine; not beneficial. *Omeprazole 20mg once daily; some improvement. 2. IBS-Diarrhea predominance --MEDICATION TRIALS *Rifaximin; some improvement --DIET/LIFESTYLE *Low-FODMAP; some improvement. Unable to identify symptoms. --TESTS/LABS *TTG/IgA, IgA; negative INTERVAL HISTORY- 04/29/17 I am hanging in there. Improved with rifaximin. Gurling calmed down. Over 50% improvement with rifaximin. Benefits lasted several days. Decreased fecal urgency. Acid reflux improved. Started low-FODMAP diet. I felt like I was starving for a while because I was very limited. Unable to identifytrigger foods. Continues to have flares. Undigested food particles when she has diarrhea. Currently experiencing diarrhea every other day. Abdominal pain, cramping, fecal urgency. Denies fecal incontinence. Bloating. Denies constipation. Denies straining and incomplete emptying. Last A1C 8.8. Insurance formulary recently changed. Has not been taking her cholesterol medications and diabetes medications as a result Omeprazole seemed to relieve her symptoms a little bit. Continues to have daily reflux symptoms. Denies dysphagia, odynophagia, and globus. Denies chronic NSAID use. Has been eating small frequent meals throughout the day. Triggers include; fried foods, acidic foods. HPI COMMENTS Epigastric pain for several years. She had a colonoscopy done approximately 6 years ago in [place]. Unremarkable findings. Was treated for IBS. Has been watching her diet. Approximately one year ago was seen in [place]. She did not see a GI specialist, but they did do an EGD. Was told there was some redness and irritation. Otherwise unremarkable. Reflux symptoms on a nightly basis. Currently taking ranitidine for acid reflux symptoms. Was previously taking omeprazole. This helped with the heartburn symptoms. She stopped taking this when she moved to [place] because she forgot to transfer this medication onto her list with her new PCP. Denies chronic NSAID use, but does admit to taking aleve a couple times a month maybe. Reports slight anemia. Reports last A1C 7.2% in October. Denies unintentional weight loss. Nausea approximately once per week. Denies vomiting. Denies nocturnal symptoms. Abdominal pain is located in the upper quadrants. Pain is described as crampy. Abdominal distension. She is a type 2 diabetic. When she has a flare. Reports experiencing these flares approximately one to two times per week. Within five minutes of eating my abdomen becomes so swollen I feel like I'm going to burst open. Daily diarrhea. During an exacerbation of symptoms, myfood isn't even digested. On a bad day, may move her bowels approximately 8 times in a day. Has been taking welchol. This helps with the consistency of her stool. Endorses lactose intolerance. Denies constipation. Denies blood in stool. I think sometimes there is mucus. No anal or rectal pain. Cramping and fecal urgency. Has tried pepto-bismol, imodium. Cholecystectomy in 2003 for cholecystitis. Denies dysphagia, odynophagia, and globus. Eats a lactose free diet. Has not tried eliminating any other foods from her diet. ROS Notable for the gastrointestinal symptoms as described above. CONSTITUTIONAL: Denies anorexia, fever, or unintended weight change NEURO: Migraines. Denies neuropathy, loss of sensation, facial drooping or unilateral weakness. PSYCH: Depression/anxiety. ENDO: See HPI. ALLERGIES Allergies Allergen Reactions ??? Latex ??? Other [Unclassified Drug] Anaphylaxis Any type of anti-depressant. ??? Paroxetine Hcl CIS - Edema ??? Lactose CURRENT MEDICATIONS Medications reviewed and reconciled in e-DH Current Outpatient Prescriptions: ??? colesevelam (WELCHOL) 625 mg Tablet, Take 2 tablets by mouth 2 times daily (with meals) for 30 days., Disp: 120 tablet, Rfl: 0 ??? busPIRone (BUSPAR) 10 mg Tablet, Take 1 tablet by mouth 2 times daily., Disp: 60 tablet, Rfl: 3 ??? Cholestyramine-Aspartame (CHOLESTYRAMINE LIGHT) 4 gram Powder in Packet, Take 1 packet by mouth2 times daily., Disp: 180 packet, Rfl: 3 ??? liraglutide (VICTOZA) 0.6 mg/0.1 mL (18 mg/3 mL) Pen Injector, Inject 1.8 mg subcutaneously daily., Disp: 27 mL, Rfl: 3 ??? mirtazapine (REMERON) 15 mg Tablet, Take 2 tablets by mouth nightly., Disp: 30 tablet, Rfl: 3 ??? acetaminophen (TYLENOL) 500 mg Tablet, Take 2 tablets by mouth every 6 hours as needed for Pain., Disp: 30 tablet, Rfl: 1 ??? omeprazole (PRILOSEC) 20 mg Capsule, Delayed Release(E.C.), Take 1 capsule by mouth daily., Disp: 30 capsule, Rfl: 11 ??? Blood-Glucose Meter Misc, Please dispense Salas Metrix meter. E11.9, Disp: 1 each, Rfl: 0 ??? blood sugar diagnostic strips Strip, Test blood glucose 4 times daily. Salas Metrix self monitoring Blood Glucose strips E11.9, Disp: 400 each, Rfl: 3 ??? lancets Misc, 1 each by Misc.(Non-Drug; Combo Route) route 2 times daily. E11.9, Disp: 100 each, Rfl: 12 ??? lancets (LANCETS,THIN) 28 gauge Misc, 1 each by Misc.(Non-Drug; Combo Route) route 4 times daily. microlet lancets, Disp: 400 each, Rfl: 3 ??? ranitidine (ZANTAC) 150 mg Tablet, Take 1 tablet by mouth 2 times daily., Disp: 180 tablet, Rfl: 3 ??? fexofenadine (SHELBI) 180 mg Tablet, Take 1 tablet by mouth daily as needed., Disp: 90 tablet,Rfl: 3 ??? naproxen sodium (ANAPROX) 220 mg Tablet, Take 2 tablets by mouth 2 times daily as needed., Disp: 60 tablet, Rfl: 12 ??? meclizine (ANTIVERT) 25 mg Tablet, Take 1 tablet by mouth 3 times daily as needed., Disp: 90 tablet, Rfl: 0 ??? glucose (DEX4 GLUCOSE) 4 gram Tablet, Chewable, Take 4 tablets by mouth as needed for Low bloodsugar., Disp: 90 tablet, Rfl: 11 ??? eletriptan (RELPAX) 20 mg tablet, 20 MG = 1 Tablet(s), PO, PRN, Disp: , Rfl: ??? amitriptyline (ELAVIL) 10 mg tablet, 10m-2 Tablet(s), PO, QHS (Patient not taking: No sig reported), Disp: , Rfl: MEDICAL HISTORY Past Medical History: Diagnosis Date ??? Allergic state ??? Anxiety ??? Depression SURGICAL HISTORY 1. Cholecystectomy SOCIAL HISTORY Currently unemployed. Did work in [employer] at [employer] until she moved. . Has 2 girls; 11, 13 HABITS Denies tobacco use. Denies alcohol use. Denies using other substances. FAMILY HISTORY Mom is alive, age: 57 Dad is alive, age: 58 Cousin- CD Denies family history of esophageal cancer, stomach cancer, colon cancer, pancreatic or liver issues, and IBD. PHYSICAL EXAM: Most Recent Vitals: 04/29/17 1055 BP: 117/74 Pulse: 86 Height: 5'3 Weight: Weight: 86.7 kg (191 lb 3.2 oz) Body mass index is 32.82 kg/(m^2). GENERAL: Healthy-appearing in no acute distress. Appears stated age. Well nourished. SKIN: No lesions, rashes, lumps, or angiomas on exposed skin. NEURO: Alert and oriented to person, place, time, and situation. Cranial nerves II-XII intact. PSYCH: Mood appropriate. Good eye contact. Normal interaction. Answers all questions appropriately. LABS: Lab Results Component Value Date WBC 9.0 11/15/2016 HGB 13.7 11/15/2016 HCT 38.1 11/15/2016 MCV 96.9 (H) 11/15/2016 PLATELET 287 11/15/2016 Lab Results Component Value Date NA 139 11/15/2016 K 3.8 11/15/2016 CL 98 11/15/2016 CO2 26 11/15/2016 BUN 15 11/15/2016 CREATININE 0.75 04/24/2017 GLUCOSE 163 11/15/2016 CALCIUM 9.6 11/15/2016 Lab Results Component Value Date TSH 1.15 11/15/2016 ASSESSMENT This is a very nice 37 y.o. female with a history significant for DM2 who returns to me today in follow up for GERD and IBS. Some improvement of both acid reflux and diarrhea after completing rifaximin. However, symptoms resumed approximately two days after completing antibiotic treatment. She alsohas some issues involving insurance coverage of medication. She needs to prove a lactose allergy toobtain welchol through insurance company. We discussed the utility of breath testing for SIBO and lactose allergy. We will go ahead and test for SIBO with HBT. If positive, we will treat for SIBO andthen discuss testing for lactose allergy. If negative, we will proceed with lactose breath test. Her A1C earlier this month was 8.8%. Consider role of poor glycemic control in diarrhea symptoms. Recommend follow up with PCP/endocrinology for glycemic control. For reflux, recommend increasing omeprazole to 40mg per day. Recommend GERD diet and lifestyle modifications. 1. GERD Increase omeprazole to 40mg daily. GERD diet and lifestyle modifications. Consider utility of EGD. Consider utility of Umanzor pH on medications. 2. BLOATING HBT. Consider utility of lactose breath test. 3. IBS-Diarrhea predominance HBT. Loperamide. Consider rifaximin. PLAN 1. Increase omeprazole 40mg once daily 30-60 minutes prior to eating first meal of the day. 2. GERD diet and lifestyle modifications. 3. HBT. 5. If the hydrogen breath test is positive, I will call patient. 6. Follow up as needed. Patient agrees with the above plan. I did my best to answer her questions. TIME SPENT WITH PATIENT 27 minutes of this 27 minute visit were spent in [id number] discussion and counseling the patientas detailed per above. Signed, Moriah Tobar, MATRIX SUPERVISOR 04/29/17 11:45 AM Section of Gastroenterology & Hepatology [facility] documented in this encounter Plan of Treatment Upcoming Encounters Date Type Department Care Team (Late st Contact Info) Description 12/03/2024 1:00 PM EDT Appointment Hematology [place] [address] 12/03/2024 2:00 PM EDT Office Visit Hematology [place] [address] Pelon Wisdom MD [facility] [place] [address] Oksana Payne APRN [facility] [address] [place] [address] documented as of this encounter Visit Diagnoses Diagnosis Gastroesophageal reflux disease, esophagitis presence not specified Irritable bowel syndrome with diarrhea Irritable bowel syndrome Bloating Flatulence, eructation, and gas pain documented in this encounter Care Teams Slice Plug Cutter Operator Helper Relationship Specialty Start Date End Date Rosy Tavarez APRN [facility] [place] [address] PCP - General General Internal Medicine 02/14/1709/21 documented as of this encounter
--- OUTSIDE RECORDS SUMMARY | 2024-01-03 01:07 | XMS_ITS | Encounter Summary ---
Author Organization [facility] [place] [address] Care Team Providers Care Center Hole Reamer Name Role Phone Leeanna Cohn MD Primary Care Provider [phone] Encounter Details Date Type Department Care Team ([facility] Contact Info) Description 12/31/2016 Telephone [place] [address] Mariaa De La Rosa, RN Social History [...] encounter Miscellaneous Notes * Telephone Encounter - Mariaa De La Rosa RN - 01/17/2017 4:29 PM EDT Opened in error documented in this encounter Plan of Treatment Upcoming Encounters Date Type Department Care Team ([facility] Contact Info) Description 12/03/2024 1:00 PM EDT Appointment H[place]ology [place] [address] 12/03/2024 2:00 PM EDT Office Visit Hematology [place] [address] Pelon Wisdom MD [facility] [address] [place] [address] Oksana Payne APRN [facility] [address] [place]EM[place]Y [place] [address] documented as of this encounter Visit Diagnoses Not on filedocumented in this encounter Care Teams Center Hole Reamer Relationship Specialty Start Date End Date Leeanna Cohn MD [address] [place] [address] PCP - General 03/14/10 02/13/17 documented as of this encounter
--- OUTSIDE RECORDS SUMMARY | 2024-01-03 01:07 | XMS_ITS | Encounter Summary ---
Author Organization [facility] [place] [address] Care Team Providers Care Supplier Quality Specialist Name Role Phone Leeanna Cohn MD Primary Care Provider [phone] Reason for Visit * Reason Onset Date Comments Follow-up 01/21/2017 Encounter Details Date Type Department Care Team ([facility] st Contact Info) Description 01/21/2017 Telephone [place] [address] Radhika Tinajero Follow-up Social History Tobacco Use Types Packs/Day Years [...] encounter Miscellaneous Notes * Telephone Encounter - Radhika Tinajero RN - 01/21/2017 1:25 PM EDT Tc to patient. Follow up from Ali care note on 01-18-17. Patient blood glucose at home was 455, advised to go to ED for evaluation. Went to [facility], there blood glucose was in mid 200's. She questions accuracy of her glucose meter. Has a different glucose meter, but insurance would not cover strips. She has since changed insurance companies, will send in new prescription for strips for Contour Next meter. Being treated for cellulitis after receiving flu shot. States area is improving and she is startingto feel better. * Telephone Encounter - Radhika Tinajero RN - 01/21/2017 1:24 PM EDT ----- Message from Regine Monique sent at 01/21/2017 12:53 PM EDT ----- Regarding: Alic[facility] Triage Note Alicare Triage Note Scanned documented in this encounter Plan of Treatment Upcoming Encounters Date Type Department Care Team (Late st Contact Info) Description 12/03/2024 1:00 PM EDT Appointment Hematology [place] [address] 12/03/2024 2:00 PM EDT Office Visit Hematology [place] [phone] Pelon Wisdom MD [facility] [address] HEMATOLOGY [place] [address] Oksana Payne APRN [facility] [address] HEMATOLOGY [place] [address] documented as of this encounter Visit Diagnoses Not on filedocumented in this encounter Care Teams Supplier Quality Specialist Relationship Specialty Start Date End Date Leeanna Cohn MD [address] [place] [address] PCP - General 03/14/10 02/13/17 documented as of this encounter
--- OUTSIDE RECORDS SUMMARY | 2024-01-03 01:07 | XMS_ITS | Encounter Summary ---
[place] [address] Care Team Providers Care Mold Hoister Name Role Phone Rosy Tavarez APRN Primary Care Provider Reason for Visit * Reason Onset Date Comments Prior Authorization 02/13/2017 Encounter Details Date Type Department Care Team ([facility] Contact Info) Description 02/13/2017 Telephone [place] [id number] Kimberley Amor CMA GASTROENTEROLOGY DEPT Prior Authorization [...] Telephone Encounter - Kimberley Amor CMA - 02/13/2017 3:54 PM EDT [place] [facility] ID: [id number] Medication xifaxan 550 mg TID for 14 days Tried: imodium, pepto, amitripyline *treatment failure* Decision: approved for 14 dsays. Tracking ID: [id number] documented in this encounter Plan of Treatment Upcoming Encounters Date Type Department Care Team ([facility] Contact Info) Description 12/03/2024 1:00 PM EDT Appointment Hematology [place] [address] 12/03/2024 2:00 PM EDT Office Visit Hematology [place] [address] Pelon Wisdom MD [facility] [place] [address] Oksana Payne APRN [facility] [place] [address] documented as of this encounter Visit Diagnoses Not on filedocumented in this encounter Care Teams Mold Hoister Relationship Specialty Start Date End Date Rosy Tavarez APRN [facility] [place] [address] PCP - General General Internal Medicine 02/14/1709/21 documented as of this encounter
--- OUTSIDE RECORDS SUMMARY | 2024-01-03 01:07 | XMS_ITS | Encounter Summary ---
Author Organization Formerly [facility] [place] [address] Care Team Providers Care Ip Network Architect Name Role Phone Leeanna Cohn MD Primary Care Provider [phone] Reason for Visit * Reason Comments Muscle Pain since Saturday Encounter Details Date Type Department Care Team (Late st Contact Info) Description 01/17/2017 1:00 PM EDT Office [place] [address] Rosy Tavarez, STORE TEAM MEMBER [facility] GENER[place] [address] Cellulitis of arm, right; Herpes simplex infection of genitourinary system Social History Tobacco Use Types Packs/Day Years [...] Sign Reading Time Taken Comments Blood Pressure 129/78 01/17/2017 1:15 PM EDT Pulse 100 01/17/2017 1:15 PM EDT Temperature - - Respiratory Rate 18 01/17/2017 1:15 PM EDT Oxygen Saturation 100% 01/17/2017 1:15 PM EDT Inhaled Oxygen Concentration - - Weight 86.9 kg (191 lb 9.6 oz) 01/17/2017 1:15 P M EDT Height 160 cm (5' 2.99) 01/17/2017 1:15 PM EDT Body Mass Index 33.95 01/17/2017 1:15 PM EDT documented in this encounter Patient Instructions * Patient Instructions* Rosy Tavarez, STORE TEAM MEMBER - 01/17/2017 1:27 PM EDT Images from the original note were not included. [facility] Cellulitis: Care Instructions Your Care Instructions Cellulitis is a skin infection. It often occurs after a break in the skin from a scrape, cut, bite,or puncture, or after a rash. The doctor has checked you carefully, but [...] you care for yourself at home? ?? Take your antibiotics as directed. Do not stop taking them just because you feel better. You need to take the full course of antibiotics. ?? Prop up the infected area on pillows to reduce pain and swelling. Try to keep the area above thelevel of your heart as often as you can. ?? If your doctor told you how to care for your wound, follow your doctor's instructions. If you did not get instructions, follow this general advice: ?? Wash the wound with clean water 2 times a day. Don't use hydrogen peroxide or alcohol, which canslow healing. ?? You may cover the wound with a thin layer of petroleum jelly, such as Vaseline, and a nonstick bandage. ?? Apply more petroleum jelly and replace the bandage as needed. ?? Be safe with medicines. Take pain medicines exactly as directed. ?? If the doctor gave you a prescription medicine for pain, take it as prescribed. ?? If you are not taking a prescription pain medicine, ask your doctor if you can take an yffo-mjk-whwilsp medicine. To prevent cellulitis in the future ?? Try to prevent cuts, scrapes, or other injuries to your skin. Cellulitis most often occurs wherethere is a break in the skin. ?? If you get a scrape, cut, mild burn, or bite, wash the wound with clean water as soon as you silvio help avoid infection. Don't use hydrogen peroxide or alcohol, which can slow healing. ?? If you have swelling in your legs (edema), support stockings and good skin care may help preventleg sores and cellulitis. ?? Take care of your feet, especially if you have diabetes or other conditions that increase the risk of infection. Wear shoes and socks. Do not go barefoot. If you have athlete's foot or other skin problems on your feet, talk to your doctor about how to treat them. When should you call for help? Call your doctor now or seek immediate medical care if: ?? You have signs that your infection is getting worse, such as: ?? Increased pain, swelling, warmth, or redness. ?? Red streaks leading from the area. ?? Pus draining from the area. ?? A fever. ?? You get a rash. Watch closely for changes in your health, and be sure to contact your doctor if: ?? You are not getting better after 1 day (24 hours). ?? You do not get better as expected. Where can you learn more? Visit our health information library at [email or web address]. You can also view health information on MyMosa, your personal patient account. Log in or sign uptoday. Enter X309 in the search box to learn more about Cellulitis: Care Instructions. Current as of: February 02, 2016 Content Version: 11.3 ?? [id number] [employer]. Care instructions adapted under license by [facility]. If you have questions about a medical condition or this instruction, always ask your healthcare professional. [employer] disclaims any warranty or liability for your use of this information. documented in this encounter Progress Notes * Rosy Tavarez APRN - 01/17/2017 1:00 PM EDT Subjective: Patient ID: Emma Min is a 36 y.o. female. HPI Emma is here with fever, chills, fatigue and body aches since the flu and Tdap shot 3 days ago. Also noted her blood sugar is elevated. She has tried Advil and Acetaminophen with some relief. No URI, sore throat, cough or GI upset. Also started Remeron recently for depression. Gets bread out of herpes in labia with any fevers, now yet but concerned. Review of Systems Constitutional: Positive for activity change, appetite change, chills, fatigue and fever. HENT: Negative for congestion, ear pain, rhinorrhea and sore throat. Respiratory: Negative for cough. Skin: Right upper arm at shot site with redness and warmth to touch Objective: Physical Exam Constitutional: She appears well-developed and well-nourished. HENT: Mouth/Throat: Oropharynx is clear and moist. No oropharyngeal exudate. Skin: Right deltoid with 6 cm X 5 cm redness and warmth to touch, also very tender. Vitals reviewed. Assessment and Plan: Emma was seen today for muscle pain. See encounter summary for patient instructions on cellulitis. Measure on going home and report it enlarging or not responding to antibiotics, explained MRSA. Diagnoses and all orders for this visit: Cellulitis of arm, right - cephalexin (KEFLEX) 250 mg Capsule; Take 1 capsule by mouth 3 times daily for 7 days. Herpes simplex infection of genitourinary system - acyclovir (ZOVIRAX) 200 mg Capsule; Take 1 capsule by mouth 5 times daily for 7 days. documented in this encounter Plan of Treatment Upcoming Encounters Date Type Department Care Team (Late st Contact Info) Description 12/03/2024 1:00 PM EDT Appointment Hematology [place] [address] 12/03/2024 2:00 PM EDT Office Visit Hematology [place] [phone] Pelon Wisdom MD [facility] HEMATOLOGY [place] [address] [facility] H[place]ATOLOGY [place] [address] documented as of this encounter Visit Diagnoses Diagnosis Cellulitis of arm, right Cellulitis and abscess of upper arm and forearm Herpes simplex infection of genitourinary system documented in this encounter Care Teams Ip Network Architect Relationship Specialty Start Date End Date Leeanna Cohn MD [address] [place] [address] PCP - General 03/14/10 02/13/17 documented as of this encounter
--- OUTSIDE RECORDS SUMMARY | 2024-01-03 01:07 | XMS_ITS | Encounter Summary ---
Author Organization [facility] [place] [address] Care Team Providers Care Swimming Pool Cleaner Name Role Phone Rosy Tavarez APRN Primary Care Provider [phone] Reason for Visit * Reason Onset Date Comments Prior Authorization 03/21/2017 Encounter Details Date Type Department Care Team ([facility] st Contact Info) Description 03/21/2017 Telephone [place] [phone] Jackie Monahan Prior Authorization Social History Tobacco [...] * Telephone Encounter - Jackie Monahan - 03/21/2017 3:49 PM EST Medication Prior Authorization KAYLYN Medication name/dose/directions: TRULICITY 0.75MG/0.5ML - ONCE WEEKLY Rationale for request: TYPE II DM Health plan: [employer] (FAX) Authorizing medical billing representative name: EBEN Faxed to health plan on: 03/21/17 Health plan decision: DENIED Quantity approved: PLEASE USE PREFERRED DRUG LIST MEDICATION: METFORMIN AT 2,000MG PER DAY FOR AT LEAST THREE MONTHS, CONCURRENTLY WITH BYETTA, BYDUREON, AND VICTOZA. Authorization number: [id number] Start date: End date: documented in this encounter Plan of Treatment Upcoming Encounters Date Type Department Care Team (Late st Contact Info) Description 12/03/2024 1:00 PM EDT Appointment Hematology [place] [address] 12/03/2024 2:00 PM EDT Office Visit Hematology [place] [address] Pelon Wisdom MD [facility] [address] HEMATOLOGY [place] [address] Oksana Payne APRN [facility] HEMATOLOGY [place] [address] documented as of this encounter Visit Diagnoses Not on filedocumented in this encounter Care Teams Swimming Pool Cleaner Relationship Specialty Start Date End Date Rosy Tavarez APRN [facility] GENERAL [place] [address] PCP - General General Internal Medicine 02/14/1709/21 documented as of this encounter
--- OUTSIDE RECORDS SUMMARY | 2024-01-03 01:07 | XMS_ITS | Encounter Summary ---
Author Organization [facility] [place] [address] Care Team Providers Care Stitch Separator Name Role Phone Rosy Tavarez APRN Primary Care Provider Encounter Details Date Type Department Care Team (Late Contact Info) Description 04/29/2017 Telephone [place] [address] Camila Tompkins, RN Social History Tobacco Use Types Packs/Day [...] encounter Miscellaneous Notes * Telephone Encounter - Camila Tompkins, RN - 04/29/2017 8:24 AM EST Patient's PA for Victoza was approved. Called her and let her know. Also asked what supplies she needs assistance with. documented in this encounter Plan of Treatment Upcoming Encounters Date Type Department Care Team ([facility] Contact Info) Description 12/03/2024 1:00 PM EDT Appointment Hematology [place] [phone] 12/03/2024 2:00 PM EDT Office Visit Hematology [place] [address] Pelon Wisdom MD [facility] [address] [place] [address] Oksana Payne APRN [facility] [place] [address] documented as of this encounter Visit Diagnoses Not on filedocumented in this encounter Care Teams Stitch Separator Relationship Specialty Start Date End Date Rosy Tavarez APRN [facility] [place] [address] PCP - General General Internal Medicine 02/14/1709/21 documented as of this encounter
--- OUTSIDE RECORDS SUMMARY | 2024-01-03 01:07 | XMS_ITS | Encounter Summary ---
Author Organization [facility] [place] [address] Care Team Providers Care Digital Composer Name Role Phone Rosy Tavarez GO Primary Care Provider Reason for Visit * Reason Onset Date Comments Prior Authorization 03/28/2017 Encounter Details Date Type Department Care Team (Late st Contact Info) Description 03/28/2017 Telephone [place] [phone] Pastora Layton Prior Authorization Social History Tobacco Use Types [...] encounter Miscellaneous Notes * Telephone Encounter - Eunice Husain - 04/04/2017 1:26 PM EST This test strips not require a PA. I called the pharmacy and pharmacy asked to confirm if the patient is insulin depended and patient is not insulin dependent. * Telephone Encounter - Pastora Layton - 03/28/2017 3:46 PM EST Medication: blood sugar diagnostic strips Strip Insurance Company: Medicaid Fax: documented in this encounter Plan of Treatment Upcoming Encounters Date Type Department Care Team (Late st Contact Info) Description 12/03/2024 1:00 PM EDT Appointment [place] [address] 12/03/2024 2:00 PM EDT Office Visit [place]ology [place] [phone] Pelon Wisdom MD [facility] DR HEMATOLOGY [place] [address] Oksana Payne APRN [facility] [address] HEMATOLOGY [place] [address] documented as of this encounter Visit Diagnoses Not on filedocumented in this encounter Care Teams Digital Composer Relationship Specialty Start Date End Date Rosy Tavarez APRN [facility] GENERAL [place] [address] PCP - General General Internal Medicine 02/14/1709/21 documented as of this encounter
--- OUTSIDE RECORDS SUMMARY | 2024-01-03 01:07 | XMS_ITS | Encounter Summary ---
Author Organization [facility] [place] [address] Care Team Providers Care Television Presenter Name Role Phone Leeanna Cohn MD Primary Care Provider [phone] Reason for Referral * Consultation (Routine) - Closed Specialty Diagnoses / Procedures Referred By Contac t Referred To Contact Internal Medicine Diagnoses Severe episode of recurrent major depressive disorder, without psychotic features Mary Lorenzo MD [facility] GENERAL INTERNAL [place] [address] [address] Referral ID Status Reason Start Date Expiration Date V isits Requested Visits Authorized [id number] Closed Specialty Service Requested 01/14/2017 01/14/2018 1 1 Reason for Visit * Reason Comments Depression Encounter Details Date Type Department Care Team ([facility] st Contact Info) Description 01/14/2017 3:30 PM EDT Office [place] [address] Mary Lorenzo MD [facility] GENERAL INTERNAL MEDICINE [place], [place] [id number] Need for prophylactic vaccination and inoculation against influenza; Need for prophylactic vaccination with combined fptnrvmlfo-wxljlpy-mj rtussis (DTP) vaccine; Severe episode of recurrent major depressive disorder, without psychotic features; Anxiety Social History Tobacco Use Types Packs/Day Years [...] Sign Reading Time Taken Comments Blood Pressure 133/58 01/14/2017 3:40 PM EDT Pulse 89 01/14/2017 3:40 PM EDT Temperature 36.7 ??C (98 ??F) 01/14/2017 3:40 PM EDT Respiratory Rate 18 01/14/2017 3:40 PM EDT Oxygen Saturation 99% 01/14/2017 3:40 PM EDT Inhaled Oxygen Concentration - - Weight 86.2 kg (190 lb) 01/14/2017 3:40 PM EDT Height 160 cm (5' 2.99) 01/14/2017 3:40 PM EDT Body Mass Index 33.67 01/14/2017 3:40 PM EDT documented in this encounter Progress Notes * Mary Lorenzo MD - 01/14/2017 3:30 PM EDT Subjective: Patient ID: Emma Min is a 36 y.o. female. Past Medical History: Diagnosis Date ??? Allergic state ??? Anxiety ??? Depression Chief Complaint Patient presents with ??? Depression 36 yo woman with DM2, GERD and long history of depression here for worsening depression. Has struggled with depression since age 14. Has seen a therapist for most of her life. Did CBT in past which worked very well. Has not seen therapist in 2 years; didn't connect with last one. Moved to this area with her 2 daughters from [place], [place], a couple months ago to live with her boyfriend. Started with worsening anxiety but then evolved into depression for past 1-1.5 months. Often feels as if someone is strangling her, feels pressure around throat. Feels jittery with difficulty breathing. Feels anxious a lot with racing thoughts. Constantly thinking about what she has to do next, what she didn't get done, etc. If things don't work out as she expects them to, it's a catastrophe. Hx of cutting which CBT helped with, last cut in her early 20s. If has a panic attack, which doesn't happen often, has the urge to cut but not otherwise. Saw her PCP about 2 years ago for worsening depression. PCP had her fill out surveys and referred her to therapist. [place] like therapist talked more than she did and stopped going. Things overall werepretty good, still felt depressed but was able to deal with it. Feels her depression is much worse now. Not sleeping well on both extremes. Hard time falling asleep due to racing thoughts, but sometimes oversleeps. Very dodd. Often feels like she wants to hit something. Is snapping at her family more. Feels out of control. Crying for no reason multiple times a day. Appetite decreased. No change in weight. Denies SI/HI but admits to feeling hopeless. One suicide attempt in 2007 for which she was hospitalized, tried to cut her wrists. No other hospitalizations or suicide attempts. In past tried distracting herself/her mind. Knitting helped. Went hiking last weekend with her family and enjoyed it, felt better but didn't last once she got home. Tries to go for walks in the evening to clear her mind. Is looking for a job since moving to this area, which is stressful. Because she's not working is athome with her 13 yo daughter more; daughter is high functioning, autistic and they are at each other's throats often. 13 yo daughter was previously at [facility] and at [facility] prior to turning 12. Her 11 yo daughter is also starting to struggle with depression, she recently found her a therapist. Very difficult to watch her children go through similar struggles with depression and not be able to help them. Has severe allergy to SSRIs. Has skin bubbling that looks like a 3rd degree burn. Has been tried on multiple antidepressants including buspirone, wellbutrin, effexor, seroquel, amitriptyline, MAO inhibitor, as well as medications for sleep. It's been a while since she's taken anything, but last tried buspirone which didn't help. FHx: Father - depression Sister - bipolar 2 daughters - depression Tobacco - never EtOH - 1 drink once a month Drugs - never Objective: Vitals: 01/14/17 1540 BP: 133/58 BP Location (NBP): Left arm Patient Position: Sitting BP Cuff Sizes: Adult (25-34 cm) Pulse: 89 Resp: 18 Temp: 36.7 ??C (98 ??F) TempSrc: Temporal SpO2: 99% Weight: 86.2 kg (190 lb) Height: 160 cm (5' 2.99) Body mass index is 33.67 kg/(m^2). Gen: well appearing woman, in NAD, depressed HEENT: EOMI, sclera anicteric Psych: Mood: dodd, hopeless Affect: depressed, appropriate PHQ-9: 23, extremely difficult to take care of work and home SAMPSON-7: 21 Assessment and Plan: 36 yo woman with DM2, GERD and long history of depression here for worsening depression x 1.5 months. # Depression and anxiety - both severe. Trial of mirtazapine 15 mg nightly. Referral to [facility] psychiatry. Pursue CBT, resources sheet provided. Will ask Aline Clarke to call her tmw for additional resources. RTC with PCP in 4 weeks. # HCM - influenza and tetanus immunizations today. * Jenn Perry MD - 01/14/2017 3:30 PM EDT The case was discussed at the time of the visit or immediately after the visit. The assessment and plan were formulated in discussion with me and I agree with them as documented. I have reviewed the history, physical exam, assessment and plan with the resident. Major issues discussed today: Depression with anxiety; tearfulness, hopelessness, poor concentration and sleep; no suicidal thoughts currently, was hospitalized once in the past for suicidal thoughts, also has history of cutting with no current cutting behaviors. Previous CBT was very helpful but has not connected to a counselor with good fit since moving. History of severe allergy with SSRI's. Did not respond to bupropion, amitriptyline, or MAO inhibitor. Family history of bipolar disorder and depression, including in her children. Plan: Referral to [facility] psychiatry for additional guidance on medication options Connect to [facility] to identify a counselor Schedule follow up with PCP documented in this encounter Plan of Treatment Upcoming Encounters Date Type Department Care Team (Late st Contact Info) Description 12/03/2024 1:00 PM EDT Appointment H[place]ology [place] [address] 12/03/2024 2:00 PM EDT Office Visit Hematology [place] [phone] Pelon Wisdom MD [facility] DR HEMATOLOGY [place] [address] Oksana Payne APRN [facility] DR [place] [address] Scheduled Referrals Name Type Priority Associated Diagnoses Order Schedule Referral to Collaborative Care Psychiatrist (Primary Care Only) Outpatient Referral Routine Severe episode of recurrent major depressive disorder, without psychotic features Ordered: 01/14/2017 documented as of this encounter Visit Diagnoses Diagnosis Need for prophylactic vaccination and inoculation against influenza Need for prophylactic vaccination with combined bggrdasakt-xayjbkc-pbbmhgumn (DTP) vaccine Severe episode of recurrent major depressive disorder, without psychotic features Anxiety Anxiety state, unspecified documented in this encounter Care Teams Television Presenter Relationship Specialty Start Date End Date Leeanna Cohn MD [address] [place] [id number] PCP - General 03/14/10 02/13/17 documented as of this encounter
--- OUTSIDE RECORDS SUMMARY | 2024-01-03 01:07 | XMS_ITS | Encounter Summary ---
Author Organization [facility] [place] [address] Care Team Providers Care Stoker Erector Name Role Phone Rosy Tavarez APRN Primary Care Provider [phone] Reason for Referral * Physical Therapy (Routine) - Closed Specialty Diagnoses / Procedures Referred By Contlaura t Referred To Contact Physical Therapy Diagnoses Pain, chest wall Rosy Tavarez APRN [facility] [address] [place] [address] Referral ID Status Reason Start Date Expiration Date V isits Requested Visits Authorized [id number] Closed Evaluate and Treat 03/12/2017 09/08/2017 10 10 Reason for Visit * Reason Comments Follow-up Encounter Details Date Type Department Care Team (Late st Contact Info) Description 03/12/2017 9:00 AM EST Office [place] [address] Rosy Tavarez APRN [facility] [place] [address] Pain, chest wall Social History Tobacco Use Types Packs/Day Years [...] Sign Reading Time Taken Comments Blood Pressure 142/75 03/12/2017 8:34 AM EST Pulse 91 03/12/2017 8:34 AM EST Temperature 37.2 ??C (99 ??F) 03/12/2017 8:34 AM EST Respiratory Rate 16 03/12/2017 8:34 AM EST Oxygen Saturation 98% 03/12/2017 8:34 AM EST Inhaled Oxygen Concentration - - Weight 87.6 kg (193 lb 3.2 oz) 03/12/2017 8:34 A M EST Height 165 cm (5' 4.96) 03/12/2017 8:34 AM EST Body Mass Index 32.19 03/12/2017 8:34 AM EST documented in this encounter Patient Instructions * Patient Instructions* Rosy Tavarez, LIVING SKILLS ADVISOR - 03/12/2017 9:13 AM EST Images from the original note were not included. Upper Respiratory Infection (Cold): Care Instructions Your Care Instructions An upper respiratory infection, or URI, is an infection of the nose, sinuses, or throat. URIs are spread by coughs, sneezes, and direct contact. The common cold is the most frequent kind of URI. The flu and sinus infections are other kinds of URIs. Almost all URIs are caused by viruses. Antibiotics won't cure them. But you can treat most infections with home care. This may include drinking lots of fluids and taking iotg-ufg-cbmxqic pain medicine. You will probably feel better in 4 to 10 days. The doctor has checked you carefully, but [...] you care for yourself at home? ?? To prevent dehydration, drink plenty of fluids, enough so that your urine is light yellow or clear like water. Choose water and other caffeine-free clear liquids until you feel better. If you havekidney, heart, or liver disease and have to limit fluids, talk with your doctor before you increasethe amount of fluids you drink. ?? Take an qkkm-jef-wiyffxo pain medicine, such as acetaminophen (Tylenol), ibuprofen (Advil, Motrin), or naproxen (Aleve). Read and follow all instructions on the label. ?? Before you use cough and cold medicines, check the label. These medicines may not be safe for young children or for people with certain health problems. ?? Be careful when taking kdzb-yma-yvirhhc cold or flu medicines and Tylenol at the same time. Manyof these medicines have acetaminophen, which is Tylenol. Read the labels to make sure that you are not taking more than the recommended dose. Too much acetaminophen (Tylenol) can be harmful. ?? Get plenty of rest. ?? Do not smoke or allow others to smoke around you. If you need help quitting, talk to your doctorabout stop-smoking programs and medicines. These can increase your chances of quitting for good. When should you call for help? Call 911 anytime you think you may need emergency care. For example, call if: ? ?? You have severe trouble breathing. ?Call your doctor now or seek immediate medical care if: ? ?? You seem to be getting much sicker. ? ?? You have new or worse trouble breathing. ? ?? You have a new or higher fever. ? ?? You have a new rash. ?Watch closely for changes in your health, and be sure to contact your doctor if: ? ?? You have a new symptom, such as a sore throat, an earache, or sinus pain. ? ?? You cough more deeply or more often, especially if you notice more mucus or a change in the color of your mucus. ? ?? You do not get better as expected. Where can you learn more? Visit our health information library at [email or web address]. You can also view health information on [email or web address], your personal patient account. Log in or sign uptoday. Enter K520 in the search box to learn more about Upper Respiratory Infection (Cold): Care Instructions. Current as of: August 31, 2016 Content Version: 11.4 ?? [id number] [employer]. Care instructions adapted under license by [facility]. If you have questions about a medical condition or this instruction, always ask your healthcare professional. [employer] disclaims any warranty or liability for your use of this information. documented in this encounter Progress Notes * Rosy Tavarez APRN - 03/12/2017 9:00 AM EST Subjective: Patient ID: Emma Min is a 37 y.o. female. HPI Emma is here with bilateral chest pain that is tender to touch for about 6 weeks. She does not recall doing anything like lifting or overuse, she has been raking recently. She is already on Naprosyn and states that taking this twice a day is not helping. Now with less cough for sinus congestion and diarrhea for the last several days. Has tried Tylenol flu with minimal relief. Review of Systems Constitutional: Positive for activity change, appetite change and fatigue. Negative for chills and fever. HENT: Negative for congestion and sore throat. Respiratory: Negative for cough, shortness of breath and wheezing. Objective: Physical Exam Constitutional: She appears well-developed and well-nourished. HENT: Head: Normocephalic and atraumatic. Right Ear: External ear normal. Left Ear: External ear normal. Mouth/Throat: Oropharynx is clear and moist. No oropharyngeal exudate. Neck: Neck supple. Pulmonary/Chest: She exhibits no swelling. Right breast exhibits no tenderness. Left breast exhibits no tenderness. Abdominal: Soft. She exhibits no mass. There is no tenderness. There is no rebound and no guarding. Skin: Skin is warm and dry. Vitals reviewed. Assessment and Plan: Emma was seen today for follow-up of chest wall pain, has not been on the Naproxen for 3 weeks. URI - See encounter summary for patient instructions. Diagnoses and all orders for this visit: Pain, chest wall - XR Chest PA & Lateral (Generic); Future - acetaminophen (TYLENOL) 500 mg Tablet; Take 2 tablets by mouth every 6 hours as needed for Pain. - Referral to Physical Therapy * Deangelo Cox - 03/12/2017 9:00 AM EST Subjective: Patient ID: Emma Min is a 37 y.o. female. HPI Comments: Anterior chest wall pain that is continuing since last visit not worse or better, here also for sinus congestion no cough. HPI: Chest Wall Pain Chest wall pain is localized to anterior aspect with radiation to axilla. Pain is made better with rest and worse with palpation ,deep breathing and stretching. No cough, no swelling or rash. Has been taking Ibuprofen 400 mg for pain and is reported as effective for pain control. HPI: Sinus Congestion Sinus congestion started last Saturday, with sore throat, occasional ear pain, no cough, reports fever yesterday (subjective). Decreased appetite, diarrhea (started Saturday, 6/day, watery), nausea, generalized fatigue and myalgias. Review of Systems Constitutional: Positive for appetite change and fatigue. Negative for chills. HENT: Positive for congestion and ear pain. Negative for ear discharge. Respiratory: Negative for cough and shortness of breath. Gastrointestinal: Positive for diarrhea. Musculoskeletal: Positive for myalgias. Negative for neck stiffness. Skin: Negative for rash. Objective: Physical Exam Constitutional: She is oriented to person, place, and time. She appears well- developed and well-nourished. HENT: Right Ear: External ear normal. Tympanic membrane is not injected, not erythematous and not bulging. No middle ear effusion. Left Ear: External ear normal. Tympanic membrane is not injected, not erythematous and not bulging.No middle ear effusion. Mouth/Throat: Posterior oropharyngeal edema and posterior oropharyngeal erythema present. No oropharyngeal exudate. 1+ tonsilar swelling Cardiovascular: Normal heart sounds. Pulmonary/Chest: Breath sounds normal. No respiratory distress. She has no wheezes. She exhibits tenderness. Chest wall tenderness to palpation superior anterior aspect, Focused along sternal border but diffuse. Positive findings for pain with crowing rooster manuever and horizontal arm flexion. Abdominal: Soft. Bowel sounds are increased. There is no hepatosplenomegaly. There is generalized tenderness. There is negative Jaramillo's sign. Lymphadenopathy: Head (right side): No submental, no submandibular, no tonsillar, no preauricular, no posterior auricular and no occipital adenopathy present. Head (left side): No submental, no submandibular, no tonsillar, no preauricular, no posterior auricular and no occipital adenopathy present. She has no cervical adenopathy. Right: No supraclavicular adenopathy present. Left: No supraclavicular adenopathy present. Neurological: She is alert and oriented to person, place, and time. Skin: Skin is warm and dry. Assessment and Plan: Sinus Congestion - Continue to rest and stay well hydrated - This is a viral illness and should continue to get better. You may continue to use the neti-pot for nasal irrigation. Ensure you keep pot and water clean to avoid subsequent infetions Costochindritits - Continue to take NSAIDs for chest wall pain. It is ok to alternate between Ibuprofen and tylenol.Make sure you do not take more than the maximum dose per day. Look at any OTC cold remedies - Rest - Moist heat may help alleviate the pain as well Return for worsening pain or pain that is different, fever, cough or any other concerning symptoms. documented in this encounter Plan of Treatment Upcoming Encounters Date Type Department Care Team (Late st Contact Info) Description 12/03/2024 1:00 PM EDT Appointment Hematology [place] [address] 12/03/2024 2:00 PM EDT Office Visit Hematology [place] [address] Pelon Wisdom MD [facility] DR HEMATOLOGY [place] [address] Oksana Payne APRN [facility] [address] HEMATOLOGY [place] [address] Scheduled Referrals Name Type Priority Associated Diagnoses Orde r Schedule Referral to Physical Therapy Outpatient Referral Routine Pain, chest wall Ordered: 03/12/2017 documented as of this encounter Results * XR Chest PA & Lateral (Generic) (03/12/2017 9:41 AM EST) Anatomical Region Laterality Modality Chest N/A Digital Radiogra phy Impressions 03/12/2017 10:12 AM EST No acute cardiopulmonary process. I have personally reviewed the image(s) and the residents interpretation and agree with the findings, Viry Austin at 03/12/2017 10:12 AM Narrative 03/12/2017 10:12 AM EST EXAMINATION: XR CHEST PA AND LATERAL (GENERIC) CLINICAL HISTORY: chest wall pain for 3 weeks, post URI TECHNIQUE: PA and lateral chest radiographs. COMPARISON: None FINDINGS: The lungs are clear with no focal area of consolidation. No pneumothorax or pleural effusion. The cardiomediastinal silhouette, ivanna and pulmonary vasculature are within normal limits. The osseous structures are unremarkable. Surgical clips are seen in the right upper quadrant consistent with prior cholecystectomy. Procedure Note Viry Austin MD - 03/12/2017 EXAMINATION: XR CHEST PA AND LATERAL (GENERIC) CLINICAL HISTORY: chest wall pain for 3 weeks, post URI TECHNIQUE: PA and lateral chest radiographs. COMPARISON: None FINDINGS: The lungs are clear with no focal area of consolidation. No pneumothoraxor pleural effusion. The cardiomediastinal silhouette, ivanna and pulmonary vasculature are within normal limits. The osseous structures areunremarkable. Surgical clips are seen in the right upper quadrant consistent withprior cholecystectomy. IMPRESSION No acute cardiopulmonary process. I have personally reviewed the image(s) and the residents interpretationand agree with the findings, Viry Austin at 03/12/2017 10:12 AM Rosy Tavarez APRN IMG DX ORDERABLES documented in this encounter Visit Diagnoses Diagnosis Pain, chest wall Painful respiration Pain, chest wall Painful respiration documented in this encounter Care Teams Stoker Erector Relationship Specialty Start Date End Date Rosy Tavarez APRN [facility] [place] [address] PCP - General General Internal Medicine 02/14/1709/21 documented as of this encounter
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
--- OUTSIDE RECORDS SUMMARY | 2024-01-03 01:07 | XMS_ITS | Encounter Summary ---
Author Organization [facility] [place] [address] Care Team Providers Care Human Capital Manager Name Role Phone Rosy Tavarez APRN Primary Care Provider Reason for Visit * Reason Onset Date Comments Medication Problem 04/18/2017 Encounter Details Date Type Department Care Team (Late st Contact Info) Description 04/18/2017 [place] [id number] Sharda James Social History Tobacco Use Types Packs/Day Years [...] encounter Miscellaneous Notes * Telephone Encounter - Reta Nova RN - 04/18/2017 1:14 PM EST Attempted to call Carlos-boyfriend at the number given. Went to a fax machine. Left message with patient that [facility] [place] Also advised that per Rosy Tavarez APRN - insurance had denied and they'd probably have to pay OOPcosts. She should call her pharmacy to follow up on when this medication would be available to be picked up. * Telephone Encounter - Reta Nova RN - 04/18/2017 12:11 PM EST Forwarding to Rosy Tavarez APRN for review. Medication noted as discontinued. * Telephone Encounter - Sharda James - 04/18/2017 11:07 AM EST Pharmacy or caller: Carlos Perrin-pt boyfriend Phone Number: [facility] work# [phone] Medication: colesevelam (WELCHOL) 625 mg Tablet [[id number]] DISCONTINUED Message: pt needs this medication. Please call Carlos back. [facility]ses [facility]. documented in this encounter Plan of Treatment Upcoming Encounters Date Type Department Care Team (Late st Contact Info) Description 12/03/2024 1:00 PM EDT Appointment [place]ology [place] [address] 12/03/2024 2:00 PM EDT Office Visit [place]ematology [place] [address] Pelon Wisdom MD [facility] DR HEMATOLOGY [place] [address] Oksana Payne APRN [facility] HEMATOLOGY [place] [address] documented as of this encounter Visit Diagnoses Not on filedocumented in this encounter Care Teams Human Capital Manager Relationship Specialty Start Date End Date Rosy Tavarez APRN [facility] GENER[place] [address] PCP - General General Internal Medicine 02/14/17 6/2 05/11 documented as of this encounter
--- OUTSIDE RECORDS SUMMARY | 2024-01-03 01:07 | XMS_ITS | Encounter Summary ---
Author Organization [place] [address] Care Team Providers Care Wind Turbine Service Technician Name Role Phone Rosy Tavarez APRN Primary Care Provider Encounter Details Date Type Department Care Team (Late Contact Info) Description 04/24/2017 Notes [place] [address] Crys Coe, RN Social History Tobacco Use Types Packs/Day [...] as of this encounter Progress Notes * Crys Coe, RN - 04/24/2017 9:26 AM EST PA came back denied due to A1c being too old (10/2016) spoke with patient who will come in today to have A1c drawn. Orders placed documented in this encounter Plan of Treatment Upcoming Encounters Date Type Department Care Team (Late Contact Info) Description 12/03/2024 1:00 PM EDT Appointment [place] [address] 12/03/2024 2:00 PM EDT Office Visit [place]ology [place] [address] Pelon Wisdom MD [facility] DR HEMATOLOGY [place] [address] Oksana Payne APRN [facility] HEMATOLOGY [place] [address] documented as of this encounter Visit Diagnoses Not on filedocumented in this encounter Care Teams Wind Turbine Service Technician Relationship Specialty Start Date End Date Rosy Tavarez APRN [facility] GENERAL [place] [address] PCP - General General Internal Medicine 02/14/17 62 05/11 documented as of this encounter
--- OUTSIDE RECORDS SUMMARY | 2024-01-03 01:07 | XMS_ITS | Encounter Summary ---
Author Organization [facility] Address [facility] [place] [address] Care Team Providers Care Horticultural Agent Name Role Phone oRsy Tavarez GO Primary Care Provider Encounter Details Date Type Department Care Team (Late st Contact Info) Description 04/10/2017 Telephone Psychiatry [place] [address] Olga Daniels MD [facility] [place] [address] Social History Tobacco Use Types Packs/Day Years [...] encounter Miscellaneous Notes * Telephone Encounter - Olga Daniels MD - 04/10/2017 5:52 PM EST Called the patient and discussed about possible treatment options for depression and anxiety after speaking with Dr. Mcintyre and Dr. Alan. She initially states that anxiety is bothering her the most, more so than depression. She then saysshe is unsure of what comes first. She says she had a bad day today and cried all day long. The possibility of adding a new medication such as Buspar (for anxiety) or Lamictal (for mood stabilization) was discussed. Side effects (rash) of Lamictal and the need for slow titration was explained to her in detail. Given her previous anaphylactic reactions to SSRI including horrible rash and blisters on her face, she is afraid of starting Lamictal. She notes she has tried BusPar many years ago, and does not recall the dose or the duration she was on. She is amenable to a re-trial of Buspar, and I started her on BusPar 10mg BID. documented in this encounter Plan of Treatment Upcoming Encounters Date Type Department Care Team (Late st Contact Info) Description 12/03/2024 1:00 PM EDT Appointment Hematology [place] [address] 12/03/2024 2:00 PM EDT Office Visit Hematology [place] [address] Pelon Wisdom MD [facility] DR HEMATOLOGY [place] [address] Oksana Payne APRN [facility] [address] HEMATOLOGY [place] [address] documented as of this encounter Visit Diagnoses Not on filedocumented in this encounter Care Teams Horticultural Agent Relationship Specialty Start Date End Date Rosy Tavarez APRN [facility] INTER[facility] [place] [address] PCP - General General Internal Medicine 02/14/1709/21 documented as of this encounter
--- OUTSIDE RECORDS SUMMARY | 2024-01-03 01:07 | XMS_ITS | Encounter Summary ---
Author Organization [facility] [place] [address] Care Team Providers Care Slagger Name Role Phone Rosy Tavarez APRN Primary Care Provider Encounter Details Date Type Department Care Team (Late Contact Info) Description 04/05/2017 Telephone [place] [address] Camila Tompkins, RN Social History [...] Miscellaneous Notes * Telephone Encounter - Camila Tompkins RN - 04/05/2017 2:36 PM EST Patient called because [facility] told her that she needs a PA done Immediately for all of her diabetic meds and supplies. Called back patient for more details. She is actually looking for Victoza refill today. She has 2 Victoza doses left. documented in this encounter Plan of Treatment Upcoming Encounters Date Type Department Care Team ([facility] Contact Info) Description 12/03/2024 1:00 PM EDT Appointment [place]ematology [place] [address] 12/03/2024 2:00 PM EDT Office Visit Hematology [place] [address] Pelon Wisdom MD [facility] [place] [address] Oksana Payne APRN [facility] [place] [address] documented as of this encounter Visit Diagnoses Not on filedocumented in this encounter Care Teams Slagger Relationship Specialty Start Date End Date Rosy Tavarez APRN [facility] [place] [address] PCP - General General Internal Medicine 02/14/17 6/05/11 documented as of this encounter
--- OUTSIDE RECORDS SUMMARY | 2024-01-03 01:07 | XMS_ITS | Encounter Summary ---
Author Organization [facility] [place] [address] Care Team Providers Care Core Blower Operator Name Role Phone Leeanna Cohn MD Primary Care Provider [phone] Reason for Visit * Reason Onset Date Comments Medication Refill 12/31/2016 Encounter Details Date Type Department Care Team (Late Contact Info) Description 12/31/2016 Refill Endocrinology at [place] [phone] Mariaa De La Rosa, RN Social History [...] Upcoming Encounters Date Type Department Care Team ([facility] Contact Info) Description 12/03/2024 1:00 PM EDT Appointment Hematology and Oncology at [place] [phone] 12/03/2024 2:00 PM EDT Office Visit [place]ematology [place] [address] Pelon Wisdom MD [facility] [address] [place] [address] Oksana Payne APRN [facility] [place] [address] documented as of this encounter Visit Diagnoses Not on filedocumented in this encounter Care Teams Core Blower Operator Relationship Specialty Start Date End Date Leeanna Cohn MD [address] [place] [address] PCP - General 03/14/10 02/13/17 documented as of this encounter
--- OUTSIDE RECORDS SUMMARY | 2024-01-03 01:07 | XMS_ITS | Encounter Summary ---
Author Organization [facility] [place] [address] Care Team Providers Care Associate Account Manager Name Role Phone Rosy Tavarez GO Primary Care Provider Reason for Visit * Reason Onset Date Comments Prior Authorization 03/27/2017 I need a PA for Victoza - unable to cone picker script at the pharmacy Encounter Details Date Type Department Care Team (Late Contact Info) Description 03/27/2017 [place] [phone] Mell Goldberg V corrections counselor (I need a PA for Victoza - unable to cone picker script at the pharmacy) Social History Tobacco Use Types Packs/Day Years [...] encounter Miscellaneous Notes * Telephone Encounter - Mell Goldberg RN - 03/27/2017 2:40 PM EST TC from Emma - Requesting that a Prior Auth be submitted for her VIctoza. Need for Prior Auth communicated to the End[facility] via In Basket. documented in this encounter Plan of Treatment Upcoming Encounters Date Type Department Care Team (Late Contact Info) Description 12/03/2024 1:00 PM EDT Appointment [place] [address] 12/03/2024 2:00 PM EDT Office Visit [place]ology [place] [address] Pelon Wisdom MD [facility] [address] [place] [address] Oksana Payne APRN [facility] [address] [place] [address] documented as of this encounter Visit Diagnoses Not on filedocumented in this encounter Care Teams Associate Account Manager Relationship Specialty Start Date End Date Rosy Tavarez APRN [facility] [place] [address] PCP - General General Internal Medicine 02/14/1709/21 documented as of this encounter
--- OUTSIDE RECORDS SUMMARY | 2024-01-03 01:07 | XMS_ITS | Encounter Summary ---
Author Organization [facility] Address [facility] [place] [address] Care Team Providers Care Gas Treater Name Role Phone Che Sharpe Primary Care Provider + Reason for Visit * Reason Onset Date Comments Medication Problem 01/21/2017 Encounter Details Date Type Department Care Team (Late st Contact Info) Description 01/21/2017 Refill [place] [phone] Patricia Butler Social History Tobacco Use Types Packs/Day Years [...] encounter Miscellaneous Notes * Telephone Encounter - Patricia Butler Truman - 01/21/2017 2:09 PM EDT Message: Patient is calling stating that [facility] in [place] is having a hard time getting her test strips for her glucose meter. She would like a new prescription sent to [facility] if possible. She has not tested her blood sugar since Saturday night. Please call. Caller and relationship (if other than patient-full name): Self Best time to call back: any Ok to leave a message: [yes] Ok to send [facility] message: [no] Offered Appointment: no MA/Nurse contacted via: Message: yes Call: no Pager: no documented in this encounter Plan of Treatment Upcoming Encounters Date Type Department Care Team (Late st Contact Info) Description 12/03/2024 1:00 PM EDT Appointment Hematology [place] [address] 12/03/2024 2:00 PM EDT Office Visit Hematology [place] [address] Pelon Wisdom MD [facility] [address] [place] [address] Oksana Payne APRN [facility] [place] [address] documented as of this encounter Visit Diagnoses Not on filedocumented in this encounter Care Teams Gas Treater Relationship Specialty Start Date End Date Che Sharpe PA [address] [place] [address] [place] [address] PCP - General Internal Medicine 04/20/20 documented as of this encounter
--- OUTSIDE RECORDS SUMMARY | 2024-01-03 01:07 | XMS_ITS | Encounter Summary ---
Author Organization [facility] [place] [address] Care Team Providers Care Dermatology Nurse Practitioner Name Role Phone Rosy Tavarez GO Primary Care Provider Reason for Visit * Reason Onset Date Comments Prior Authorization 03/28/2017 Encounter Details Date Type Department Care Team ([facility] st Contact Info) Description 03/28/2017 [place]phone [place] [phone] Jackie Monahan Prior Authorization Social History Tobacco [...] * Telephone Encounter - Jackie Monahan - 04/26/2017 9:01 AM EST SENT A1C TO [facility] * Telephone Encounter - Jackie Monahan - 03/28/2017 10:03 AM EST Medication Prior Authorization JEANETTE ?? Medication name/dose/directions: VICTOZA 18MG/3ML - INJ 0.6 DAILY ?? Rationale for request: TYPE II DM ?? Health plan: [employer] ([facility]) ?? Authorizing compliance representative dealer name: EBEN ?? Faxed to health plan on: 03/28/17 ?? Health plan decision: APPROVED ?? Quantity approved: ?? Authorization number: [id number] ?? Start date:04/26/17 End date: 04/26/18 documented in this encounter Plan of Treatment Upcoming Encounters Date Type Department Care Team (Late st Contact Info) Description 12/03/2024 1:00 PM EDT Appointment [place]ology [place] [address] 12/03/2024 2:00 PM EDT Office Visit Hematology [place] [phone] Pelon Wisdom MD [facility] DR HEMATOLOGY [place] [address] Oksana Payne APRN [facility] DR HEMATOLOGY [place] [address] documented as of this encounter Visit Diagnoses Not on filedocumented in this encounter Care Teams Dermatology Nurse Practitioner Relationship Specialty Start Date End Date Rosy Tavarez APRN [facility] [place] [address] PCP - General General Internal Medicine 02/14/1709/21 documented as of this encounter
--- OUTSIDE RECORDS SUMMARY | 2024-01-03 01:07 | XMS_ITS | Encounter Summary ---
Author Organization [place] [address] Care Team Providers Care Noteman Name Role Phone Rosy Tavarez GO Primary Care Provider Reason for Visit * Reason Comments Diabetic Eye Exam Encounter Details Date Type Department Care Team (Late st Contact Info) Description 02/22/2017 3:20 PM EDT Office Visit [place] [address] Taylor Mtz, OD [facility] [place] [address] Non-proliferative diabetic retinopathy, both eyes; Myopia of both eyes with astigmatism Social History Tobacco Use Types Packs/Day Years [...] as of this encounter Progress Notes * Taylor Mtz, OD - 02/22/2017 3:20 PM EDT Encounter Diagnoses Name Primary? Non-proliferative diabetic retinopathy, both eyes ??? Myopia of both eyes with astigmatism Emma Min is a 36 y.o. with the following ophthalmic problems: Assessment and Plan: DM II, mild non proliferative retinopathy OU, No CSME OU - Advised BG control with diet, exercise, & meds per PCP recommendations. Refractive Error OU - Rx given today - Findings and concerns discussed with Emma and she expressed understanding. -Upon Return CEE in 1 year, sooner with changes in sx/vision. Eyeglass Final Rx Eyeglass Final Rx Sphere Cylinder [place] Right -0.50 +0.75 015 Left -0.75 +0.75 152 Expiration Date: 02/23/2019 documented in this encounter Plan of Treatment Upcoming Encounters Date Type Department Care Team (Late st Contact Info) Description 12/03/2024 1:00 PM EDT Appointment Hematology [place] [address] 12/03/2024 2:00 PM EDT Office Visit Hematology [place] [phone] Pelon Wisdom MD [facility] DR HEMATOLOGY [place] [address] Oksana Payne APRN [facility] [address] HEMATOLOGY [place] [address] documented as of this encounter Visit Diagnoses Diagnosis Non-proliferative diabetic retinopathy, both eyes Type II or unspecified type diabetes mellitus with ophthalmic manifestations, not stated as uncontrolled Myopia of both eyes with astigmatism documented in this encounter Care Teams Noteman Relationship Specialty Start Date End Date Rosy Tavarez, ASSURANCE SENIOR MANAGER [facility] [place] [address] PCP - General General Internal Medicine 02/14/1709/21 documented as of this encounter
--- OUTSIDE RECORDS SUMMARY | 2024-01-03 01:07 | XMS_ITS | Encounter Summary ---
[place] [address] Care Team Providers Care Automobile Body Repair Supervisor Name Role Phone Rosy Tavarez GO Primary Care Provider [phone] Reason for Visit * Reason Onset Date Comments Prior Authorization 04/08/2017 Welchol 625 mg tablet Encounter Details Date Type Department Care Team (Late st Contact Info) Description 04/08/2017 Telephone Internal Medicine at [facility] [address] [place] [phone] Eunice Husain MA Prior Authorization (Welchol 625 mg tablet) Social History Tobacco Use Types Packs/Day Years [...] * Telephone Encounter - Eunice Husain - 04/08/2017 4:31 PM EST Images from the original note were not included. Medication Prior Authorization for Primary [place] [address] Denied: X Case/Reference #: Additional Information from Insurance carrier: Unable to approve Welchol 625 mg tablets Formulary Alternatives: Please use formulary alternative(s) : ?? Questran ?? Colestid Note: * Telephone Encounter - Eunice Husain - 04/08/2017 9:09 AM EST Medication Prior Authorization for Primary [place] [address] Patient: Emma Min Patient : 1980 Subscriber Insurance: [place] Insurance Phone #: Sent via: [employer] Estrada: [id number] Physician: Rosy Tavarez APRN Return Medication Requested: Welchol Strength: 625mg Tablets Frequency: take 2 tablets bu mouth 2 times daily with meals Disp.: 180 Refills: 3 Currently taking: Yes If yes, how long: since 12/07/2016 Diagnosis for this medication: Hyperlipidemia ICD-10 code: E78.5 Prior medications trialed in this patient: Medication: dulaglutide injector Approx Dates: 03/19/2017-04/05/2017 Outcome/Adverse Reactions: treatment failure Medication: lantus solostar Approx Dates: Outcome/Adverse Reactions: treatment failure documented in this encounter Plan of Treatment Upcoming Encounters Date Type Department Care Team (Late st Contact Info) Description 12/03/2024 1:00 PM EDT Appointment Hematology and Oncology at [place] [phone] 12/03/2024 2:00 PM EDT Office Visit Hematology and Oncology at [place] [address] Pelon Wisdom MD [facility] DR HEMATOLOGY [place] [address] Oksana Payne APRN [facility] HEMATOLOGY [place] [address] documented as of this encounter Visit Diagnoses Diagnosis Hypertriglyceridemia Pure hyperglyceridemia documented in this encounter Care Teams Automobile Body Repair Supervisor Relationship Specialty Start Date End Date Rosy Tavarez APRN [facility] GENERAL [place] [address] PCP - General General Internal Medicine 02/14/1709/21 documented as of this encounter
--- OUTSIDE RECORDS SUMMARY | 2024-01-03 01:07 | XMS_ITS | Encounter Summary ---
Author Organization [facility] [place] [address] Care Team Providers Care Truck Sales Representative Name Role Phone Rosy Tavarez APRN Primary Care Provider [phone] Reason for Visit * Reason Onset Date Comments Medication Refill 04/05/2017 Encounter Details Date Type Department Care Team (Late st Contact Info) Description 04/05/2017 [place] [phone] Isabel Hicks MD [facility] [place] [address] Social History Tobacco Use Types Packs/Day Years [...] Encounter - Camila Tompkins RN - 04/05/2017 2:54 PM EST Images from the original note were not included. ?? 03/29/17 10:19 AM Note Emma Min?? Female, 37 y.o., 1980 Weight: 87.6 kg (193 lb 3.2 oz) Home: PCP: Rosy Tavarez APRN myD-H: Active Next Appt: 04/03/2017 ? Message Received: 2 days ago ? Isabel Hicks MD Isham, Gail, LPN ? Caller: Unspecified (1 week ago) ? Juan Antonio Rolon, please let Emma know that I just got word the Trulicity script was denied by her insurance, so let's proceed with the backup plan I discussed with her at her appointment, to increaseher victoza dose instead - to 1.2mg daily for a couple weeks, and if she is doing well on that, to 1.8mg daily. Thanks so much! Isabel ? Called patient at which time above message was read to her. Patient agrees with plan of care and states Victoza needs a PA and had already increased Victoza to 1.2 mg on 03/23/17 with no adverse effects. Will continue on 1.2 mg daily for one more week and then increase to 1.8 mg daily. Will call with any adverse effects. documented in this encounter Plan of Treatment Upcoming Encounters Date Type Department Care Team (Late st Contact Info) Description 12/03/2024 1:00 PM EDT Appointment [place]ology [place] [phone] 12/03/2024 2:00 PM EDT Office Visit Hematology [place] [address] Pelon Wisdom MD [facility] [place] [address] Oksana Payne APRN [facility] [place] [address] documented as of this encounter Visit Diagnoses Not on filedocumented in this encounter Care Teams Truck Sales Representative Relationship Specialty Start Date End Date Rosy Tavarez, COMMUNICATIONS REPRESENTATIVE [facility] [place] [address] PCP - General General Internal Medicine 02/14/17 605/11 documented as of this encounter
--- OUTSIDE RECORDS SUMMARY | 2024-01-03 01:07 | XMS_ITS | Encounter Summary ---
Author Organization [facility] Address [facility] [place] [address] Care Team Providers Care Sales Administrator Name Role Phone Rosy Tavarez APRN Primary Care Provider Reason for Visit * Reason Comments Chest Pain for about a month noah duran had pain in her chest area and under her armpits. Only hurts when she touches it or bends over Encounter Details Date Type Department Care Team (Late st Contact Info) Description 02/26/2017 11:40 AM EST Office [place] [address] Rosy Tavarez, OG [facility] [place] [address] Musculoskeletal chest pain Social History Tobacco Use Types Packs/Day [...] Sign Reading Time Taken Comments Blood Pressure 113/73 02/26/2017 11:21 AM EST Pulse 92 02/26/2017 11:21 AM EST Temperature 36.9 ??C (98.5 ??F) 02/26/2017 11:[address] Respiratory Rate 12 02/26/2017 11:21 AM EST Oxygen Saturation 98% 02/26/2017 11:21 AM EST Inhaled Oxygen Concentration - - Weight 87.8 kg (193 lb 9.6 oz) 02/26/2017 11:21 AM EST Height 164.6 cm (5' 4.8) 02/26/2017 11:21 AM ES T Body Mass Index 32.41 02/26/2017 11:21 AM EST documented in this encounter Patient Instructions * Patient Instructions* Rosy Tavarez, MATE FIRST - 02/26/2017 11:54 AM EST Images from the original note were not included. Musculoskeletal Chest Pain: Care Instructions Your Care Instructions Chest pain is not always a sign that something is wrong with your heart or that you have another serious problem. The doctor thinks your chest pain is caused by strained muscles or ligaments, inflamed chest cartilage, or another problem in your chest, rather than by your heart. You may need more tests to find the cause of your chest pain. Follow-up care is a zamora part of your treatment and safety. Be sure to make and go to all appointments, and call your doctor if you are having problems. It's also a good idea to know your test resultsand keep a list of the medicines you take. How can you care for yourself at home? ?? Take pain medicines exactly as directed. ?? If the doctor gave you a prescription medicine for pain, take it as prescribed. ?? If you are not taking a prescription pain medicine, ask your doctor if you can take an eduy-zdx-vewskrf medicine. ?? Rest and protect the sore area. ?? Stop, change, or take a break from any activity that may be causing your pain or soreness. ?? Put ice or a cold pack on the sore area for 10 to 20 minutes at a time. Try to do this every 1 to 2 hours for the next 3 days (when you are awake) or until the swelling goes down. Put a thin clothbetween the ice and your skin. ?? After 2 or 3 days, apply a heating pad set on low or a warm cloth to the area that hurts. Some doctors suggest that you go back and forth between hot and cold. ?? Do not wrap or tape your ribs for support. This may cause you to take smaller breaths, which could increase your risk of lung problems. ?? Mentholated creams such as Bengay or Icy Hot may soothe sore muscles. Follow the instructions onthe package. ?? Follow your doctor's instructions for exercising. ?? Gentle stretching and massage may help you get better faster. Stretch slowly to the point just before pain begins, and hold the stretch for at least 15 to 30 seconds. Do this 3 or 4 times a day. Stretch just after you have applied heat. ?? As your pain gets better, slowly return to your normal activities. Any increased pain may be a sign that you need to rest a while longer. When should you call for help? Call 911 anytime you think you may need emergency care. For example, call if: ? ?? You have chest pain or pressure. This may occur with: ?? Sweating. ?? Shortness of breath. ?? Nausea or vomiting. ?? Pain that spreads from the chest to the neck, jaw, or one or both shoulders or arms. ?? Dizziness or lightheadedness. ?? A fast or uneven pulse. After calling 911, chew 1 adult-strength aspirin. Wait for an ambulance. Do not try to drive yourself. ? ?? You have sudden chest pain and shortness of breath, or you cough up blood. ?Call your doctor now or seek immediate medical care if: ? ?? You have any trouble breathing. ? ?? Your chest pain gets worse. ? ?? Your chest pain occurs consistently with exercise and is relieved by rest. ?Watch closely for changes in your health, and be sure to contact your doctor if: ? ?? Your chest pain does not get better after 1 week. Where can you learn more? Visit our [facility] information library at [email or web address]. You can also view health information on [employer], your personal patient account. Log in or sign uptoday. Enter V293 in the search box to learn more about Musculoskeletal Chest Pain: Care Instructions. Current as of: July 09, 2016 Content Version: 11.4 ?? [id number] [email or web address]. Care instructions adapted under license by [facility]. If you have questions about a medical condition or this instruction, always ask your healthcare professional. [email or web address] disclaims any warranty or liability for your use of this information. documented in this encounter Progress Notes * Rosy Tavarez APRN - 02/26/2017 11:40 AM EST Subjective: Patient ID: Emma Min is a 36 y.o. female. HPI Emma is here with bilateral chest pain that is tender to touch for about the month. She does notrecall doing anything like lifting or overuse, she has been raking recently. She is already on Naprosyn and states that taking this twice a day is not helping. Review of Systems Constitutional: Negative for activity change, appetite change, chills and fatigue. Respiratory: Positive for chest tightness. Cardiovascular: Negative for chest pain and palpitations. Musculoskeletal: Positive for myalgias. Objective: Physical Exam Constitutional: She appears well-developed and well-nourished. Pulmonary/Chest: She has no decreased breath sounds. She has no wheezes. She has no rhonchi. She has no rales. She exhibits tenderness (above nipples across the entire chest wall to axilla). Vitals reviewed. Assessment and Plan: Emma was seen today for chest pain. If no better in a couple of weeks will get imaging of the breasts. See encounter summary for patient instructions for chest wall tenderness. Diagnoses and all orders for this visit: Musculoskeletal chest pain - CK; Future - Sedimentation rate; Future - CK - Sedimentation rate documented in this encounter Plan of Treatment Upcoming Encounters Date Type Department Care Team (Late st Contact Info) Description 12/03/2024 1:00 PM EDT Appointment [place] [address] 12/03/2024 2:00 PM EDT Office Visit [place] [phone] Pelon Wisdom MD [facility] [address] [place] [address] Oksana Payne APRN [facility] [place] [address] documented as of this encounter Procedures Procedure Name Priority Date/Time Associated Diagnosis Comments SEDIMENTATION RATE Routine 02/26/2017 12 :36 PM EST Musculoskeletal chest pain CK Routine 02/26/2017 12:36 PM EST Musculoskeletal chest pain documented in this encounter Results * (ABNORMAL) Sedimentation rate (02/26/2017 12:36 PM EST) Sedimentation Rate Automated 22(H) 0 - 20 mm/hr [facility] Blood specimen (specimen) 02/26/2017 12:36 PM EST 02/26/2017 12:45 PM EST Narrative Resulting Agency Comment Spec In Lab Rosy Tavarez MATE FIRST HEMATOLOGY ORDERABLE S Performing Organization Address City/[facility]/ZIP Co de Phone Number [facility] [place] [address] * CK (02/26/2017 12:36 PM EST) Creatine Kinase 66 0 - 160 unit/L [facility] Blood specimen (specimen) 02/26/2017 12:36 PM EST 02/26/2017 12:45 PM EST Narrative Resulting Agency Comment Spec In Lab Rosy Tavarez MATE FIRST CHEMISTRY ORDERABLES Performing Organization Address City/[facility]/ZIP Co de Phone Number [facility] [place] [place] [address] documented in this encounter Visit Diagnoses Diagnosis Musculoskeletal chest pain Other chest pain documented in this encounter Care Teams Sales Administrator Relationship Specialty Start Date End Date Rosy Tavarez APRN [facility] [place] [address] PCP - General General Internal Medicine 02/14/17/05/11 documented as of this encounter
--- OUTSIDE RECORDS SUMMARY | 2024-01-03 01:07 | XMS_ITS | Encounter Summary ---
Author Organization [facility] [place] [address] Care Team Providers Care Case Consultant Name Role Phone TavarezRosy méndez Sabrina STILES Primary Care Provider [phone] Encounter Details Date Type Department Care Team (Latest Contact Info) Description 04/24/2017 3:35 PM EST Laboratory Appointment Lab [address] [place] [address] Type 2 diabetes mellitus without complication, without long-term current use of insulin Social History Tobacco Use Types Packs/Day Years [...] PM EDT Appointment Hematology [place] [phone] 12/03/2024 2:00 PM EDT Office Visit Hematology [place] [address] Pelon Wisdom MD [facility] [address] [place] [address] Oksana Payne APRN [facility] [place] [address] documented as of this encounter Procedures Procedure Name Priority Date/Time Associated Diagnosis Comments CREATININE STAT 04/24/2017 3:48 PM EST Type 2 diabetes mellitus without complication, without long-term current use of insulin LDL CHOLESTEROL, DIRECT STAT 04/24/2017 3:48 PM EST Type 2 diabetes mellitus without complication, without long-term current use of insulin HEMOGLOBIN A1C STAT 04/24/2017 3:48 PM EST Type 2 diabetes mellitus without complication, without long-term current use of insulin documented in this encounter Results * LDL Cholesterol, Direct (04/24/2017 3:48 PM EST) LDL Cholesterol, Direct 187 <=190 mg/dL [facility] Blood specimen (specimen) 04/24/2017 3:48 PM EST 04/24/2017 3:54 PM EST Narrative Resulting Agency Comment Spec In Lab Isabel Hicks MD CHEMISTRY ORDERABLES Performing Organization Address City/State/[facility] Co de Phone Number [facility] [place] [address] * Creatinine (04/24/2017 3:48 PM EST) Creatinine 0.75 0.70 - 1.20 mg/dL [facility] Est Glomerular Filtration Rate >60 >=60 [facility] Comment: The reported eGFR should be multiplied by 1.2 for patients. The MDRD is not an appropriate measure of renal function for patients with body mass extremes or in patients with acute kidney failure. http://Neiron.com/DHnkdep http://Neiron.com/DHMCnkf Blood specimen (specimen) 04/24/2017 3:48 PM EST 04/24/2017 3:54 PM EST Narrative Resulting Agency Comment Spec In Lab Isabel Hicks MD CHEMISTRY ORDERABLES [facility] [place] [address] * (ABNORMAL) Hemoglobin A1c (04/24/2017 3:48 PM EST) Hemoglobin A1c 8.8(H) 4.3 - 5.6 % [facility] Comment: Reference Range: 4.3 - 5.6% 5.7 - 6.4% - Increased Risk of Developing Diabetes Mellitus >=6.5% - Consistent with diagnosis of Diabetes Mellitus In the absence of hyperglycemia (i.e. plasma glucose > 200 mg/dL) or classic symptoms of hyperglycemia a repeat measurement of HbA1c should be performed on a separate sample to confirm the diagnosis. Diagnosis and Classification of Diabetes Mellitus, Diabetes Care 2013; 36: Suppl. 1, S67-37 Estimated Average Glucose 206 mg/dL [facility] Comment: eAG equivalents [...] into estimated average glucose values. ??Diabetes Care 2008:31(8):7760-5123. Blood specimen (specimen) 04/24/2017 3:48 PM EST 04/24/2017 3:54 PM EST Narrative Resulting Agency Comment Spec In Lab Isabel Hicks MD CHEMISTRY ORDERABLES [facility] [place] [address] documented in this encounter Visit Diagnoses Diagnosis Type 2 diabetes mellitus without complication, without long-term current use of insulin documented in this encounter Care Teams Case Consultant Relationship Specialty Start Date End Date Rosy Tavarez, BRANCH MANAGER TRAINEE [facility] [place] [address] PCP - General General Internal Medicine 02/14/1709/21 documented as of this encounter
--- OUTSIDE RECORDS SUMMARY | 2024-01-03 01:07 | XMS_ITS | Encounter Summary ---
[facility] [place] [address] Care Team Providers Care Assembler Chassis Name Role Phone Rosy Tavarez GO Primary Care Provider Reason for Visit * Reason Onset Date Comments Medication Problem 04/05/2017 Encounter Details Date Type Department Care Team ([facility] st Contact Info) Description 04/05/2017 Telephone [place] [phone] Jenn Escalante Medication Problem Social History Tobacco Use Types Packs/Day Years [...] Telephone Encounter - Reta Nova RN - 04/05/2017 12:06 PM EST Spoke with [facility] at [phone]. Pt had Rx for Welchol filled in Nov 2016 and it went through her insurance at that time [place] Medicaid. Pt has moved and now has [place] [employer] insurance. Per pharmacy, they will not accept this medication as NON-FORMULARY and to CONTACT THE PRESCRIBER. Will forward information to Prior Auth for assistance and work with provider to see if her medication as written can be covered in the near future. Spoke with patient to update her on the above information. Pending Prior auth review. * Telephone Encounter - Jenn Escalante - 04/05/2017 10:50 AM EST Pharmacy or caller: patient Medication: Welchol Message: Patient calling, her insurance is telling her that they will not cover her prescription for Welchol, patient stated that she needs to take this specific medication because she is lactose intolerant. Patient has about a weeks worth of medication left. documented in this encounter Plan of Treatment Upcoming Encounters Date Type Department Care Team (Late st Contact Info) Description 12/03/2024 1:00 PM EDT Appointment Hematology and Oncology at [place] [phone] 12/03/2024 2:00 PM EDT Office Visit Hematology and Oncology at [place] [phone] Pelon Wisdom MD [facility] DR HEMATOLOGY [place] [address] Oksana Payne APRN [facility] [address] [place] [address] documented as of this encounter Visit Diagnoses Not on filedocumented in this encounter Care Teams Assembler Chassis Relationship Specialty Start Date End Date Rosy Tavarez APRN [facility] [place] [address] PCP - General General Internal Medicine 02/14/1709/21 documented as of this encounter
--- OUTSIDE RECORDS SUMMARY | 2024-01-03 01:07 | XMS_ITS | Encounter Summary ---
Author Organization [facility] [place] [address] Care Team Providers Care Catering Assistant Name Role Phone Leeanna Cohn MD Primary Care Provider [phone] Reason for Visit * Reason Onset Date Comments Medication Refill 01/21/2017 Encounter Details Date Type Department Care Team ([facility] Contact Info) Description 01/21/2017 Refill [place] [phone] Rosy Tavarez APRN [facility] [place] [address] Social History Tobacco Use Types Packs/Day Years [...] Upcoming Encounters Date Type Department Care Team ([facility] Contact Info) Description 12/03/2024 1:00 PM EDT Appointment Hematology [place] [phone] 12/03/2024 2:00 PM EDT Office Visit Hematology [place] [address] Pelon Wisdom MD [facility] DR HEMATOLOGY AND ONCOLOGY [place], [place] [phone] Oksana Payne APRN [facility] [address] [place]EMAT[place] [address] documented as of this encounter Visit Diagnoses Not on filedocumented in this encounter Care Teams Catering Assistant Relationship Specialty Start Date End Date Leeanna Cohn MD [address] [place] [address] PCP - General 03/14/10 02/13/17 documented as of this encounter
--- OUTSIDE RECORDS SUMMARY | 2024-01-03 01:07 | XMS_ITS | Encounter Summary ---
Author Organization [facility] [address] Care Team Providers Care Jacker Name Role Phone Rosy Tavarez WASHER CARCASS Primary Care Provider Encounter Details Date Type Department Care Team (Late st Contact Info) Description 04/23/2017 Telephone Endocrinology at [facility] [place] [address] Crys Coe, RN Social History Tobacco Use [...] encounter Miscellaneous Notes * Telephone Encounter - Crys Coe, RN - 04/23/2017 2:17 PM EST spoke with Carlos who is personal rep for Emma. Explained we were waiting for a consent form whichLindsay just emailed us saying it had been sent so we can finish processing the PA for Victoza. Diddiscuss that the Pharmacy at [facility] in [place] was telling Emma that her insurance would notcover her testing supplies and that it would be best to contact the insurance company to find out why they are not being covered. Carlos agreed to do that. Noted that the current Rx for her testing supplies was sent to pharmacy in Jan. Jackie will finish PA process this afternoon to see if we canget an approval for the Victoza documented in this encounter Plan of Treatment Upcoming Encounters Date Type Department Care Team (Late st Contact Info) Description 12/03/2024 1:00 PM EDT Appointment Hematology [place] [address] 12/03/2024 2:00 PM EDT Office Visit Hematology [place] [address] Pelon Wisdom MD [facility] [address] [place] [address] Oksana Payne APRN [facility] [address] [place] [address] documented as of this encounter Visit Diagnoses Not on filedocumented in this encounter Care Teams Jacker Relationship Specialty Start Date End Date Rosy Tavarez APRN [facility] [place] [address] PCP - General General Internal Medicine 02/14/1709/21 documented as of this encounter
--- OUTSIDE RECORDS SUMMARY | 2024-01-03 01:07 | XMS_ITS | Encounter Summary ---
Author Organization [facility] Address [facility] [place] [address] Care Team Providers Care Chief Ophthalmic Technician Name Role Phone Rosy Tavarez GO Primary Care Provider Encounter Details Date Type Department Care Team (Late st Contact Info) Description 04/25/2017 Telephone Psychiatry [place] [address] Olga Daniels MD [facility] [place] [place] [address] Social History Tobacco Use Types Packs/Day Years [...] Telephone Encounter - Olga Daniels MD - 04/25/2017 4:56 PM EST Called Pt and Pt complains of increasing numbers of weeping, crying spells that occur daily out of the blue. Pt was offered an earlier appointment at 1pm on 05/08, and pt agrees to come in. For now, it was recommended for her to go up on BusPar. (20mg am and 10 pm for the next week, and then 20mg BID for the following week). Pt is agreeable to this plan. documented in this encounter Plan of Treatment Upcoming Encounters Date Type Department Care Team (Late st Contact Info) Description 12/03/2024 1:00 PM EDT Appointment [place] [address] 12/03/2024 2:00 PM EDT Office Visit [place] [address] Pelon Wisdom MD [facility] [place] [address] Oksana Payne APRN [facility] [place] [address] documented as of this encounter Visit Diagnoses Not on filedocumented in this encounter Care Teams Chief Ophthalmic Technician Relationship Specialty Start Date End Date Rosy Tavarez, GO [facility] [place] [address] PCP - General General Internal Medicine 02/14/17 6/2 05/11 documented as of this encounter
--- OUTSIDE RECORDS SUMMARY | 2024-01-03 01:07 | XMS_ITS | Encounter Summary ---
Author Organization [facility] [place] [address] Care Team Providers Care Electrical Technology Instructor Name Role Phone Rosy Tavarez APRN Primary Care Provider Encounter Details Date Type Department Care Team (Latest Contact Info) Description 03/12/2017 9:27 AM EST - 03/12/2017 11:59 PM EST Hospital Encounter XRay at [address] [place] [phone] Rosy Tavarez, DRY CHAIN WORKER [facility] [place] [address] Pain, chest wall Discharge Disposition: Home Social History Tobacco Use [...] Date End Date acetaminophen (TYLENOL) 500 mg TabletIndications:Haylie n, chest wall Take 2 tablets by mouth every 6 hours as needed for Pain. 30 tablet 1 03/12/2017 glucose (DEX4 GLUCOSE) 4 gram Tablet, Chewable Take 4 tablets by mouth as needed for Low blood sugar. 90 tablet 11 11/07/2016 omeprazole (PRILOSEC) 20 mg Capsule, Delayed Release(E.C.) Take 1 capsule by mouth daily. 30 capsule 11 02/11/2017 04/29/2017 blood sugar diagnostic strips (CONTOUR NEXT STRIPS) Strip Use to check BG 4 times daily 400 each 3 01/22/2017 03/19/2017 Blood-Glucose Meter MiscIndications:Diabe enma mellitus without complication Please dispense Salas Metrix meter. E11.9 1 each 01/22/2017 02/09/2021 blood sugar diagnostic strips StripIndications:Diab etes mellitus without complication Test blood glucose 4 times daily. Salas Metrix self monitoring Blood Glucose strips E11.9 400 each 3 01/22/2017 04/29/2017 mirtazapine (REMERON) 15 mg Tablet Take 1 tablet by mouth nightly. 30 tablet 3 01/14/2017 04/03/2017 blood sugar diagnostic strips (GLUCOSE BLOOD TEST STRIPS) Strip Use to check BG level 2 times daily. E11.9 100 each 12 01/01/2017 03/19/2017 lancets Misc 1 each by Misc.(Non-Drug; Combo Route) route 2 times daily. E11.9 100 each 12 01/01/2017 04/29/2017 lancets (LANCETS,THIN) 28 gauge Misc 1 each by Misc.(Non-Drug; Combo Route) route 4 times daily. microlet lancets 400 each 3 12/28/2016 10/15/2017 colesevelam (WELCHOL) 625 mg TabletIndications:Hyp erlipidemia, unspecified hyperlipidemia type Take 2 tablets by mouth 2 times daily (with meals). 180 tablet 3 12/07/2016 04/09/2017 ranitidine (ZANTAC) 150 mg TabletIndications:Acu te superficial gastritis without hemorrhage Take 1 tablet by mouth 2 times daily. 180 tablet 3 11/20/2016 04/29/2017 liraglutide (VICTOZA) 0.6 mg/0.1 mL (18 mg/3 mL) Pen Injector Inject 0.6 mg subcutaneously daily. 6 mL 3 11/15/2016 03/19/2017 fexofenadine (SHELBI) 180 mg TabletIndications:Sea rhiannon allergic rhinitis due to pollen Take 1 tablet by mouth daily as needed. 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 60 tablet 12 11/15/2016 04/29/2017 meclizine (ANTIVERT) 25 mg TabletIndications:Jered tigo Take 1 tablet by mouth 3 times daily as needed. 90 tablet 11/15/2016 02/09/2021 eletriptan (RELPAX) 20 mg tablet 20 MG = 1 Tablet(s), PO, PRN 11/28/2006 09/05/2017 amitriptyline (ELAVIL) 10 mg tablet 10m-2 Tablet(s), PO, QHS 11/28/2006 05/16/2017 documented as of this encounter Plan of Treatment Upcoming Encounters Date Type Department Care Team (Late st Contact Info) Description 12/03/2024 1:00 PM EDT Appointment Hematology [place] [address] 12/03/2024 2:00 PM EDT Office Visit Hematology [place] [address] Pelon Wisdom MD [facility] DR [place] [address] Oksana Payne APRN [facility] [address] [place] [address] documented as of this encounter Procedures Procedure Name Priority Date/Time Associated Diagnosis Comments XR CHEST PA AND LATERAL Routine 03/12/2017 9:41 AM EST Pain, chest wall documented in this encounter Results * XR Chest PA [...] at 03/12/2017 10:12 AM Rosy Tavarez APRN IM DX ORDERABLES documented in this encounter Visit Diagnoses Diagnosis Pain, chest wall Painful respiration documented in this encounter Care Teams Electrical Technology Instructor Relationship Specialty Start Date End Date Rosy Tavarez APRN [facility] [place] [address] PCP - General General Internal Medicine 02/14/17/05/11 documented as of this encounter
--- OUTSIDE RECORDS SUMMARY | 2024-01-03 01:07 | XMS_ITS | Encounter Summary ---
[place] [address] Care Team Providers Care Per Diem Name Role Phone Rosy Tavarez APRN Primary Care Provider Reason for Referral * Psychiatric (Routine) - Closed Specialty Diagnoses / Procedures Referred By Contlaura t Referred To Contact Psychiatry Diagnoses Mixed anxiety and depressive disorder Rosy Tavarez APRN [facility] GENER[facility] [place] [address] [facility] [address] [place] [address] Referral ID Status Reason Start Date Expiration Date V isits Requested Visits Authorized [id number] Closed Consult, Test & Treat 02/14/2017 02/14/2018 1 1 Reason for Visit * Reason Comments Follow-up Encounter Details Date Type Department Care Team ([facility] st Contact Info) Description 02/14/2017 4:00 PM EDT Office [place] [address] Rosy Tavarez APRN [facility] [place] [address] Mixed anxiety and depressive disorder Social History Tobacco Use Types Packs/Day Years [...] Sign Reading Time Taken Comments Blood Pressure 105/49 02/14/2017 4:18 PM EDT Pulse 97 02/14/2017 4:18 PM EDT Temperature 36.6 ??C (97.9 ??F) 02/14/2017 4:18 PM ED T Respiratory Rate 18 02/14/2017 4:18 PM EDT Oxygen Saturation 98% 02/14/2017 4:18 PM EDT Inhaled Oxygen Concentration - - Weight 89.4 kg (197 lb) 02/14/2017 4:18 PM EDT Height 164.5 cm (5' 4.76) 02/14/2017 4:18 PM ED T Body Mass Index 33.02 02/14/2017 4:18 PM EDT documented in this encounter Progress Notes * Rosy Tavarez, SET UP / OPERATOR - 02/14/2017 4:00 PM EDT Subjective: Patient ID: Emma Min is a 36 y.o. female. [facility] Emma is here for follow up of depressive symptoms. She is okay but has not heard from psychiatryat all. [facility] did not work with her family schedule for intake Has struggled with depressionsince age 14. Has seen a therapist for most of her life. Did CBT in past which worked very well. Has not seen therapist in 2 years; didn't connect with last one. Moved to this area with her 2 daughters from [place], [place], a couple months ago to live with her boyfriend. Started with worsening anxiety but then evolved into depression for past 2 months. Right hand pain - hit on the floor twice and still bruising after a month. [place] Review of Systems Constitutional: Negative for activity change and appetite change. Musculoskeletal: Positive for arthralgias. Psychiatric/Behavioral: Positive for dysphoric mood. Negative for self-injury, sleep disturbance and suicidal ideas. The patient is nervous/anxious. Objective: Physical Exam Constitutional: She appears well-developed and well-nourished. Musculoskeletal: Right hand: She exhibits normal range of motion. Tenderness: below the last two fingers on dorsal surface. Vitals reviewed. Assessment and Plan: Emma was seen today for follow-up of depressive symptoms, would like to pursue CBT and counseling via psychiatry. Hand injury - try to protect from further injury, do ROM to keep from getting stiff. Diagnoses and all orders for this visit: Mixed anxiety and depressive disorder - Referral to Psychology documented in this encounter Plan of Treatment Upcoming Encounters Date Type Department Care Team (Late st Contact Info) Description 12/03/2024 1:00 PM EDT Appointment H[place]ology [place] [address] 12/03/2024 2:00 PM EDT Office Visit Hematology [place] [address] Pelon Wisdom MD [facility] DR HEMATOLOGY [place] [address] Oksana Payne APRN [facility] HEMATOLOGY [place] [address] Scheduled Referrals Name Type Priority Associated Diagnoses Order Schedule Referral to Psychology Outpatient Referral Routine Mixed anxiety and depressive disorder Ordered: 02/14/2017 documented as of this encounter Visit Diagnoses Diagnosis Mixed anxiety and depressive disorder Dysthymic disorder documented in this encounter Care Teams Per Diem Relationship Specialty Start Date End Date Rosy Tavarez APRN [facility] GENER[facility] [place] [address] PCP - General General Internal Medicine 02/14/1709/21 documented as of this encounter
--- OUTSIDE RECORDS SUMMARY | 2024-01-03 01:07 | XMS_ITS | Encounter Summary ---
Author Organization [facility] [place] [address] Care Team Providers Care Bioinformatics Support Specialist Name Role Phone Rosy Tavarez APRN Primary Care Provider Encounter Details Date Type Department Care Team (Late st Contact Info) Description 03/29/2017 Telephone Endocrinology at [facility] [place] [address] Ольга Carter LPN Social History Tobacco Use [...] Telephone Encounter - Ольга Carter LPN - 03/29/2017 10:19 AM EST Images from the original note were not included. Emma Min?? Female, 37 y.o., 1980 Weight: 87.6 kg (193 lb 3.2 oz) Home: PCP: Rosy Tavarez APRN myD-H: Active Next Appt: 04/03/2017 ?? Message Received: 2 days ago ? Isabel Hicks MD Isham, Gail, LPN ? Caller: Unspecified (1 week ago) ? Juan Antonio Rolon, please let Emma know that I just got word the Trulicity script was denied by her insurance, so let's proceed with the backup plan I discussed with her at her appointment, to increase her victoza dose instead - to 1.2mg daily for a couple weeks, and if she is doing well on that, to 1.8mg daily. Thanks so much! Isabel Called patient at which time above message [...] PM EDT Appointment Hematology [place] [phone] 12/03/2024 2:00 PM EDT Office Visit Hematology [place] [phone] Pelon Wisdom MD [facility] [address] HEMATOLOGY [place] [address] Oksana Payne APRN [facility] [address] HEMATOLOGY [place] [address] documented as of this encounter Visit Diagnoses Not on filedocumented in this encounter Care Teams Bioinformatics Support Specialist Relationship Specialty Start Date End Date Rosy Tavarez, GO [facility] INTER[place] [address] PCP - General General Internal Medicine 02/14/1709/21 documented as of this encounter
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
--- OUTSIDE RECORDS SUMMARY | 2024-01-03 01:07 | XMS_ITS | Encounter Summary ---
Author Organization [facility] [place] [address] Care Team Providers Care Outside B2B Sales Name Role Phone Leeanna Cohn MD Primary Care Provider [phone] Encounter Details Date Type Department Care Team (Late Contact Info) Description 02/07/[address] [address] Ceci Lang, GO [address] [place] [id number] Social History Tobacco Use Types Packs/Day Years [...] PM EDT Appointment Hematology [place] [address] 12/03/2024 2:00 PM EDT Office Visit Hematology [place] [address] Pelon Wisdom MD [facility] [place] [address] Oksana Payne APRN [facility] [place] [address] documented as of this encounter Procedures Procedure Name Priority Date/Time Associated Diagnosis Comments XR HAND MIN 3 VIEWS RIGHT Routine 02/07/2017 12:12 PM EDT documented in this encounter Results * XR Hand Min 3 views Right (Generic) (02/07/2017 12:12 PM EDT) Anatomical Region Laterality Modality Hand Right Radiographic Jany ging 02/07/2017 12:1 2 PM EDT Impressions 02/07/2017 12:41 PM EDT No acute osseous injury. Narrative 02/07/2017 12:41 PM EDT EXAMINATION: XR HAND 3 VIEWS RIGHT CLINICAL HISTORY: pain along 5th metacarpal, slam injury TECHNIQUE: Right Hand radiographs, 3 views COMPARISON: None FINDINGS: No acute fracture or dislocation. No radiodense foreign body. Borderline ulnar minus variance. Procedure Note Taylor Simms MD - 02/07/2017 EXAMINATION: XR HAND 3 VIEWS RIGHT CLINICAL HISTORY: pain along 5th metacarpal, slam injury TECHNIQUE: Right Hand radiographs, 3 views COMPARISON: None FINDINGS: No acute fracture or dislocation. No radiodense foreign body. Borderlineulnar minus variance. IMPRESSION No acute osseous injury. Ceci Lang APRN IMG DX ORDERABLES documented in this encounter Visit Diagnoses Not on filedocumented in this encounter Care Teams Outside B2B Sales Relationship Specialty Start Date End Date Leeanna Cohn MD [address] [place] [address] PCP - General 03/14/10 02/13/17 documented as of this encounter
--- OUTSIDE RECORDS SUMMARY | 2024-01-03 01:07 | XMS_ITS | Encounter Summary ---
Author Organization [facility] [place] [address] Care Team Providers Care Laborer Livestock Name Role Phone Leeanna Cohn MD Primary Care Provider [phone] Encounter Details Date Type Department Care Team ([facility] Contact Info) Description 01/22/2017 Telephone [place] [address] Aline Clarke LICSW [facility] [place] [address] Social History Tobacco Use Types Packs/Day Years [...] encounter Miscellaneous Notes * Telephone Encounter - Aline Clarke MSW - 01/22/2017 3:55 PM EDT Primary Care & Psychiatry Collaborative Care Asked by provider to follow up with patient and assist in locating mental health supports in the [facility]. Spoke with Emma today and gave her information on [facility] - which she states she is aware of. Also gave her psychologytoday website. She has my contact information and knows to contact me if she needs any further information. ELISSA Dudley, [facility] Behavioral Health Clinician (BHC) Primary Care & Psychiatry Collaborative Care [facility] Direct # [phone] Clinic#: [phone] Pager [phone] documented in this encounter Plan of Treatment Upcoming Encounters Date Type Department Care Team (Late st Contact Info) Description 12/03/2024 1:00 PM EDT Appointment Hematology [place] [address] 12/03/2024 2:00 PM EDT Office Visit Hematology [place] [address] Pelon Wisdom MD [facility] [place] [address] Oksana Payne APRN [facility] [address] [place] [address] documented as of this encounter Visit Diagnoses Not on filedocumented in this encounter Care Teams Laborer Livestock Relationship Specialty Start Date End Date Leeanna Cohn MD [address] [place] [address] PCP - General 03/14/10 02/13/17 documented as of this encounter
--- OUTSIDE RECORDS SUMMARY | 2024-01-03 01:07 | XMS_ITS | Encounter Summary ---
Author Organization [facility] Address [facility] [place] [address] Care Team Providers Care Operating Room Scheduler Name Role Phone TavarezRosy allen GO Primary Care Provider Encounter Details Date Type Department Care Team (Late st Contact Info) Description 04/09/2017 Telephone Psychiatry [place] [phone] Olga Daniels MD [facility] [place] [address] Social History Tobacco Use Types Packs/Day Years [...] Telephone Encounter - Olga Daniels MD - 04/09/2017 5:32 PM EST Patient requested a phone call stating that the recent increase of Mirtazapine to 30mg nightly is making her more lethargic during the day. I called the patient, and patient reports she has noticed extreme lethargy the first day the dose was increased. She skipped the dose yesterday because she didnot want to be sleepy during the day today. She was advised to go back down to Mirtazapine 15mg nightly. She was concerned about her anxiety and depression, and I told her that I would call her againtomorrow after discussing with Dr. Alan about other options. documented in this encounter Plan of Treatment Upcoming Encounters Date Type Department Care Team (Late st Contact Info) Description 12/03/2024 1:00 PM EDT Appointment H[place]ology [place] [address] 12/03/2024 2:00 PM EDT Office Visit Hematology [place] [address] Pelon Wisdom MD [facility] DR HEMATOLOGY [place] [address] Oksana Payne APRN [facility] DR HEMATOLOGY [place] [address] documented as of this encounter Visit Diagnoses Not on filedocumented in this encounter Care Teams Operating Room Scheduler Relationship Specialty Start Date End Date Rosy Tavarez APRN [facility] GENERAL [place] [address] PCP - General General Internal Medicine 02/14/1709/21 documented as of this encounter
--- OUTSIDE RECORDS SUMMARY | 2024-01-03 01:07 | XMS_ITS | Encounter Summary ---
Author Organization [facility] [place] [address] Care Team Providers Care Rn Ante Partum Name Role Phone Leeanna Cohn MD Primary Care Provider [phone] Reason for Visit * Reason Onset Date Comments Medication Refill 01/21/2017 Encounter Details Date Type Department Care Team ([facility] Contact Info) Description 01/21/2017 Refill [place] [phone] Rosy Tavarez APRN [facility] GENERAL [place] [address] Social History Tobacco Use Types Packs/Day Years [...] Upcoming Encounters Date Type Department Care Team ([facility] Contact Info) Description 12/03/2024 1:00 PM EDT Appointment Hematology [place] [phone] 12/03/2024 2:00 PM EDT Office Visit Hematology [place] [address] Pelon Wisdom MD [facility] DR HEMATOLOGY AND ONCOLOGY [place], [place] [phone] Oksana Payne APRN [facility] DR HEMATOLOGY [place] [address] documented as of this encounter Visit Diagnoses Not on filedocumented in this encounter Care Teams Rn Ante Partum Relationship Specialty Start Date End Date Leeanna Cohn MD [address] [place] [address] PCP - General 03/14/10 02/13/17 documented as of this encounter
--- OUTSIDE RECORDS SUMMARY | 2024-01-03 01:07 | XMS_ITS | Encounter Summary ---
Author Organization [facility] [place] [address] Care Team Providers Care Bronzer Name Role Phone Rosy Tavarez APRN Primary Care Provider Encounter Details Date Type Department Care Team (Late Contact Info) Description 04/18/2017 Telephone [place] [address] Camila Tompkins, RN Social History [...] Telephone Encounter - Camila Tompkins RN - 04/18/2017 1:15 PM EST Patient said she urgently needs PA for Victoza. documented in this encounter Plan of Treatment Upcoming Encounters Date Type Department Care Team (Late Contact Info) Description 12/03/2024 1:00 PM EDT Appointment [place]ology [place] [address] 12/03/2024 2:00 PM EDT Office Visit [place]ematology [place] [address] Pelon Wisdom MD [facility] [place] [address] Oksana Payne APRN [facility] [place] [address] documented as of this encounter Visit Diagnoses Not on filedocumented in this encounter Care Teams Bronzer Relationship Specialty Start Date End Date Rosy Tavarez APRN [facility] [place] [address] PCP - General General Internal Medicine 02/14/1709/21 documented as of this encounter
--- OUTSIDE RECORDS SUMMARY | 2024-01-03 01:07 | XMS_ITS | Encounter Summary ---
Author Organization [facility]ly [facility], 1927[facility] [place] [address] Care Team Providers Care Manager Talent Name Role Phone Leeanna Cohn MD Primary Care Provider Reason for Visit * Reason Comments GI Problem * Consultation (Routine) - Closed Specialty Diagnoses / Procedures Referred By Luana landon Referred To Contact Gastroenterology Diagnoses Acute superficial gastritis without hemorrhage Rosy Tavarez, GO [facility] [place] [address] [facility] [address] [place] [address] Referral ID Status Reason Start Date Expiration Date V isits Requested Visits Authorized [id number] Closed Specialty Service Requested 11/20/2016 11/20/2017 1 1 Encounter Details Date Type Department Care Team ([facility] st Contact Info) Description 02/11/2017 12:30 PM EDT Office Visit [place] [address] Moriah Tobar, EQUINE PHARMACOLOGY TECHNICIAN [address] [place] [address] Irritable bowel syndrome with diarrhea; Bloating; Gastroesophageal reflux disease, esophagitis presence not specified Social History Tobacco Use Types Packs/Day Years [...] Sign Reading Time Taken Comments Blood Pressure 119/66 02/11/2017 12:29 PM EDT Pulse 92 02/11/2017 12:29 PM EDT Temperature - - Respiratory Rate - - Oxygen Saturation - - Inhaled Oxygen Concentration - - Weight 89.6 kg (197 lb 9.6 oz) 02/11/2017 12:29 PM EDT Height 160 cm (5' 2.99) 02/11/2017 12:29 PM EDT Body Mass Index 35.01 02/11/2017 12:29 PM EDT documented in this encounter Patient Instructions * Patient Instructions* Moriah Tobar APRN - 02/11/2017 12:30 PM EDT --Stop ranitidine --Omeprazole 20mg once daily 30-60 minutes prior to eating first meal of the day. May use TUMs or gaviscon for breakthrough symptoms. -- Low-FODMAP diet for 2 weeks after rifaximin. Gradually reintroduce one food at a time to identify triggers --Labs today in 3L --Rifaximin 550 mg three times daily for 14 days. --Follow up appointment 4-6 weeks documented in this encounter Progress Notes * Moriah Tobar APRN - 02/11/2017 12:30 PM EDT DIRECTOR PHARMACOLOGY: Moriah Tobar APRN PCP: Rosy Tavarez APRN REQUESTING PROVIDER: Rosy Tavarez APRN REASON FOR CONSULTATION This is a 36 y.o. female with a history significant for DM2. I am seeing her as a new patient todayin consult for intermittent epigastric pain. GI PROBLEM LIST 1. GERD 2. IBS-Diarrhea predominance HPI COMMENTS Epigastric pain for several years. She had a colonoscopy done approximately 6 years ago in [place]. Unremarkable findings. Was treated for IBS. Has been watching her diet. Approximately one year ago was seen in [place]. She did not see a GI specialist, but they did do an EGD. Was told there was some redness and irritation. Otherwise unremarkable. Reflux symptoms on a nightly basis. Currently taking ranitidine for acid reflux symptoms. Was previously taking omeprazole. This helped with the heartburn symptoms. She stopped taking this when she moved to [place] because she forgot to transfer this medication [...] Denies anorexia, fever, or unintended weight change EYES: Denies red or painful eyes ENT: Denies oral ulcers, dysphagia, odynophagia, globus. RESPIRATORY: Denies cough, shortness of breath, wheezing CV: Denies palpitations, chest pain. : Denies dysuria, urinary incontinence, or dyspareunia. MUSC/SKELETAL: Denies chronic joint pains or history of inflammatory arthritis. INTEGUMENTARY: Denies recent skin rash or lesions. NEURO: Migraines. Denies neuropathy, loss of sensation, facial drooping or unilateral weakness. PSYCH: Depression/anxiety. ENDO: See HPI. HEM/LYMPH: Denies easy bleeding or bruising. ALL/IMMUNO: Denies seasonal allergies, frequent colds. ALLERGIES Allergies Allergen Reactions ??? Latex ??? Other [Unclassified Drug] Anaphylaxis Any type of anti-depressant. ??? Lactose CURRENT MEDICATIONS Medications reviewed and reconciled in e-DH Current Outpatient Prescriptions: ??? blood sugar diagnostic strips (CONTOUR NEXT STRIPS) Strip, Use to check BG 4 times daily, Disp:400 each, Rfl: 3 ??? Blood-Glucose Meter Misc, Please dispense Salas Metrix meter. E11.9, Disp: 1 each, Rfl: 0 ??? blood sugar diagnostic strips Strip, Test blood glucose 4 times daily. Salas Metrix self monitoring Blood Glucose strips E11.9, Disp: 400 each, Rfl: 3 ??? mirtazapine (REMERON) 15 mg Tablet, Take 1 tablet by mouth nightly., Disp: 30 tablet, Rfl: 3 ??? blood sugar diagnostic strips (GLUCOSE BLOOD TEST STRIPS) Strip, Use to check BG level 2 times daily. E11.9, Disp: 100 each, Rfl: 12 ??? lancets Misc, 1 each by Misc.(Non-Drug; Combo Route) route 2 times daily. E11.9, Disp: 100 each, Rfl: 12 ??? lancets (LANCETS,THIN) 28 gauge Misc, 1 each by Misc.(Non-Drug; Combo Route) route 4 times daily. microlet lancets, Disp: 400 each, Rfl: 3 ??? colesevelam (WELCHOL) 625 mg Tablet, Take 2 tablets by mouth 2 times daily (with meals)., Disp:180 tablet, Rfl: 3 ??? ranitidine (ZANTAC) 150 mg Tablet, Take 1 tablet by mouth 2 times daily., Disp: 180 tablet, Rfl: 3 ??? liraglutide (VICTOZA) 0.6 mg/0.1 mL (18 mg/3 mL) Pen Injector, Inject 0.6 mg subcutaneously daily., Disp: 6 mL, Rfl: 3 ??? fexofenadine (SHELBI) 180 mg [...] Low bloodsugar., Disp: 90 tablet, Rfl: 11 MEDICAL HISTORY Past Medical History: Diagnosis Date ??? Allergic state ??? Anxiety ??? Depression SURGICAL HISTORY 1. Cholecystectomy SOCIAL HISTORY Currently unemployed. Did work in [employer] at [employer] until she moved. . Has 2 girls; 11, 13 HABITS Denies tobacco use. Denies alcohol use. Denies using other substances. FAMILY HISTORY Mom is alive, age: 57 Dad is alive, age: 58 Cousin- CD Denies family history of esophageal cancer, stomach cancer, colon cancer, pancreatic or liver issues, and IBD. PHYSICAL EXAM: Most Recent Vitals: 02/11/17 1229 BP: 119/66 Pulse: 92 Height: 5'3 Weight: 190 lbs Body mass index is 35.01 kg/(m^2). GENERAL: Healthy-appearing in no acute distress. Appears stated age. Well nourished. SKIN: No lesions, rashes, lumps, or angiomas on exposed skin. NECK: No adenopathy. No thyromegaly. HEENT: PERRL, EOMI, mucosa clear without ulceration or lesions, normal Dentition LUNGS: Clear to auscultation bilaterally COR: Regular, normal S1 and S2 without murmurs. ABD: Tender to palpation. No rebound or guarding. Normal active BS. Soft, non- distended. No bruits.No organomegaly. EXT: No cyanosis, clubbing, or edema. NEURO: Alert and oriented to person, place, [...] 11/15/2016 GLUCOSE 163 11/15/2016 CALCIUM 9.6 11/15/2016 Lab Results Component Value Date TSH 1.15 11/15/2016 ASSESSMENT This is a very 36 y.o. female with a history significant for DM2 who comes to me today for evaluation of epigastric pain. She reports many years of upper quadrant abdominal pain. She reports that a colonoscopy was done in [place] approximately 6 years ago and was unremarkable. She does meet PRASANNA IV criteria for IBS. Additional symptoms include bloating, distension, abdominal pain, cramping, and fecal urgency. She is currently taking welchol, which she finds beneficial. She has a history of acid reflux symptoms with an EGD approximately one year ago. She endorses inflammation in the esophagus. She is currently taking ranitidine. She does have a cousin with CD and takes aleve a few times per month. Otherwise no warning signs. 1. GERD Unclear etiology. We discussed the pathophysiology of reflux symptoms including acid reflux, non-acid reflux, and visceral hypersensitivity. We reviewed diagnostic and treatment options with an emphasis on GERD diet/lifestyle modifications and PPI therapy. PPI therapy was reviewed. Teaching was provided with regard to the timing of medication administration and side effects. We reviewed GERD dietand lifestyle modifications. Recommend stopping ranitidine because this can interfere with the effectiveness of PPIs. Consider utility of H. Pylori testing. Consider utility of repeat EGD. 2. BLOATING Unclear etiology. She is at increased risk of SIBO (DM2- poorly controlled). Recommend low-FODMAP diet x 2 weeks. We reviewed this and literature was provided. Consider utility of HBT. 3. IBS-Diarrhea predominance We discussed the pathophysiology of IBS with a focus on the diarrhea predominant type including central/visceral hypersensitivity, gut dysbiosis, diet, and immune function. We reviewed the low-FODMAPdiet. Literature was provided. Lifestyle and diet recommendations include Lifeway kefir/probiotic and peppermint. Her symptoms clinically correlated with a bacterial dysbiosis/SIBO. Given her risk factors for SIBO and low sensitivity/specificity of HBT, it is reasonable to treat empirically with rifaximin for dysbiosis. Consider utility of HBT. Rule out CD due to family history (although not first degree relative). Recommend TTG/IgA, IgA today. She has been eating gluten. PLAN 1. Stop ranitidine 2. Omeprazole 20mg once daily on an empty stomach 30-60 minutes prior to eating. May use TUMs or gaviscon for breakthrough symptoms. We will discuss taper during our next visit. 3. Rifaximin 550mg three times daily x 14 days. She will contact me if there are insurance coverageissues 4. Low-FODMAP diet x 2-6 weeks. Gradually reintroduce one food at a time to identify triggers. 5. TTG/IgA, IgA today 6. GIF 4-6 weeks I have provided her with my contact information. She has been encouraged to contact me with any questions or concerns. TIME SPENT WITH PATIENT 57 minutes of this 60 minute visit were spent in [id number] discussion and counseling the patientas detailed per above. Signed, Moriah Tobar APRN 02/11/17 1:26 PM Section of Gastroenterology & Hepatology [facility] documented in this encounter Miscellaneous Notes * Addendum Note - Charisma Singh - 02/11/2017 1:32 PM EDTAddended by: CHARISMA SINGH on: 02/11/2017 01:32 PM Modules accepted: Orders documented in this encounter Plan of Treatment Upcoming Encounters Date Type Department Care Team (Late st Contact Info) Description 12/03/2024 1:00 PM EDT Appointment Hematology [place] [address] 12/03/2024 2:00 PM EDT Office Visit Hematology [place] [phone] Pelon Wisdom MD [facility] [address] [place] [address] Oksana Payne APRN [facility] [place] [address] documented as of this encounter Procedures Procedure Name Priority Date/Time Associated Diagnosis Comments TISSUE TRANSGLUTAMINASE, IGA Routine 02/11/2017 1:48 PM EDT Irritable bowel syndrome with diarrhea IGA Routine 02/11/2017 1:48 PM EDT Irritable bowel syndrome with diarrhea documented in this encounter Results * IgA (02/11/2017 1:48 PM EDT) IgA 289 70 - 400 mg/dL [facility] Blood specimen (specimen) 02/11/2017 1:48 PM EDT 02/11/2017 1:55 PM EDT Narrative Resulting Agency Comment Spec In Lab Moriah Tobar EQUINE PHARMACOLOGY TECHNICIAN CHEMISTRY ORDERA BLES Performing Organization Address [facility] Co de Phone Number [facility] [place] [address] * Tissue transglutaminase, IgA (02/11/2017 1:48 PM EDT) TTG IgA Ab 0.6 0.1 - 10.0 u/ml [facility] Comment: Negative = <7 U/mL Equivocal = 7-10 U/mL Positive = >10 U/mL Blood specimen (specimen) 02/11/2017 1:48 PM EDT 02/12/2017 7:23 AM EDT Narrative Resulting Agency Comment Spec In Lab Moriah Tobar EQUINE PHARMACOLOGY TECHNICIAN IMMUNOLOGY ORDER ALAN Performing Organization Address [facility] Co de Phone Number [facility] [place] [address] documented in this encounter Visit Diagnoses Diagnosis Irritable bowel syndrome with diarrhea Irritable bowel syndrome Bloating Flatulence, eructation, and gas pain Gastroesophageal reflux disease, esophagitis presence not specified documented in this encounter Care Teams Manager Talent Relationship Specialty Start Date End Date Leeanna Cohn MD [address] [place] [id number] PCP - General 03/14/10 02/13/17 documented as of this encounter
--- OUTSIDE RECORDS SUMMARY | 2024-01-03 01:07 | XMS_ITS | Encounter Summary ---
Author Organization [facility] [place] [address] Care Team Providers Care Gynecology Teacher Name Role Phone Rosy Tavarez GO Primary Care Provider Encounter Details Date Type Department Care Team (Late st Contact Info) Description 03/21/2017 Telephone [place] [address] Ольга Carter LPN Social History [...] Encounter - Ольга Carter LPN - 03/21/2017 9:48 AM EST Message from patient that she received a call from [facility] that Trulicity is covered by her insurance and is asking for a call back. Called [facility] pharmacy. Denial to be faxed to endocrine. Patient notified that once this is received PA will be done. documented in this encounter Plan of Treatment Upcoming Encounters Date Type Department Care Team (Late Contact Info) Description 12/03/2024 1:00 PM EDT Appointment Hematology [place] [address] 12/03/2024 2:00 PM EDT Office Visit [place]ematology [place] [address] Pelon Wisdom MD [facility] DR HEMATOLOGY [place] [address] Oksana Payne APRN [facility] HEMATOLOGY [place] [address] documented as of this encounter Visit Diagnoses Not on filedocumented in this encounter Care Teams Gynecology Teacher Relationship Specialty Start Date End Date Rosy Tavarez APRN [facility] GENERAL [place] [address] PCP - General General Internal Medicine 02/14/1709/21 documented as of this encounter
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
--- OUTSIDE RECORDS SUMMARY | 2024-01-03 01:07 | XMS_ITS | Encounter Summary ---
Author Organization [facility] [place] [address] Care Team Providers Care Gatekeeper Name Role Phone Leeanna Cohn MD Primary Care Provider [phone] Reason for Visit * Reason Onset Date Comments Medication Refill 01/22/2017 Encounter Details Date Type Department Care Team ([facility] Contact Info) Description 01/22/2017 Refill [place] [phone] Rosy Tavarez APRN [facility] [place] [address] Diabetes mellitus without complication Social History Tobacco [...] Upcoming Encounters Date Type Department Care Team ([facility] Contact Info) Description 12/03/2024 1:00 PM EDT Appointment Hematology [place] [phone] 12/03/2024 2:00 PM EDT Office Visit Hematology [place] [address] Pelon Wisdom MD [facility] DR HEMATOLOGY AND ONCOLOGY [place], [place] [id number] Okasna Payne APRN [facility] [address] [place] [address] documented as of this encounter Visit Diagnoses Diagnosis Diabetes mellitus without complication Type II or unspecified type diabetes mellitus without mention of complication, not stated as uncontrolled documented in this encounter Care Teams Gatekeeper Relationship Specialty Start Date End Date Leeanna Cohn MD [address] [place] [address] PCP - General 03/14/10 02/13/17 documented as of this encounter
--- OUTSIDE RECORDS SUMMARY | 2024-01-03 01:07 | XMS_ITS | Encounter Summary ---
Author Organization [facility] [place] [address] Care Team Providers Care Warehouse Consultant Name Role Phone Rosy Tavarez GO Primary Care Provider Encounter Details Date Type Department Care Team (Late st Contact Info) Description 03/19/2017 3:30 PM EST Office [place] [phone] Isabel Hicks MD [facility] DR ENDOCRINOLOG[place] [address] Type 2 diabetes mellitus without complication, without [...] Sign Reading Time Taken Comments Blood Pressure 138/82 03/19/2017 3:36 PM EST Pulse 93 03/19/2017 3:36 PM EST Temperature - - Respiratory Rate - - Oxygen Saturation - - Inhaled Oxygen Concentration - - Weight - - Height - - Body Mass Index - - documented in this encounter Progress Notes * Isabel Hicks MD - 03/19/2017 3:30 PM EST Endocrinology Clinic Follow-up Visit Reason for Visit: Follow-up of Diabetes Mellitus Type 2. HISTORY OF PRESENT ILLNESS: Ms. Emma Min [...] it and started her on Victoza instead. Emma wished to switch providers. She reports that a daily injection is too overwhelming for her Checks FSBG once daily usually in the mornings, sometimes before breakfast sometimes a few hours after breakfast. FSBG have been in the 200s mostly, sometime in the lower 300s. Lowest BG has been in the 60s, feelsneuroglycopenic in the 130s. Has tried sulfonylurea medications in the past - didn't work. Date of Diagnosis: Last HgbA1c: 7.2% (October 2016) Current Diabetes Medication regimen: Victoza 0.6mg daily (misses doses about 4x/month, ~1x/week). FSBG regimen: as above Hypoglycemia: as above Diet: Physical Activity: Smoking: History of complications 1) Nephropathy - Um:cr , sCr 2) Neuropathy - 3) Retinopathy - Last ophtho evaluation - January 2017 at [facility] with Dr. Mtz - mild nonproliferative 4) CV disease - LDL PAST MEDICAL HISTORY: Patient Active Problem List Diagnosis Date Noted ??? Depression 02/08/2017 ??? Anxiety 02/08/2017 ??? Gastroesophageal reflux disease without esophagitis 11/15/2016 ??? Uncontrolled diabetes mellitus type 2 without complications 11/15/2016 MEDICATIONS: Medications 03/19/17 0213 Medication Sig Taking? acetaminophen (TYLENOL) 500 mg Tablet Take 2 tablets by mouth every 6 hours as needed for Pain. omeprazole (PRILOSEC) 20 mg Capsule, Delayed Release(E.C.) Take 1 capsule by mouth daily. blood sugar diagnostic strips (CONTOUR NEXT STRIPS) Strip Use to check BG 4 times daily Blood-Glucose Meter Misc Please dispense Salas Metrix meter. E11.9 blood sugar diagnostic strips Strip Test blood glucose 4 times daily. Salas Metrix self monitoring Blood Glucose strips E11.9 mirtazapine (REMERON) 15 mg Tablet Take 1 tablet by mouth nightly. blood sugar diagnostic strips (GLUCOSE BLOOD TEST STRIPS) Strip Use to check BG level 2 times daily. E11.9 lancets Misc 1 each by Misc.(Non-Drug; Combo Route) route 2 times daily. E11.9 lancets (LANCETS,THIN) 28 gauge Misc 1 each by Misc.(Non-Drug; Combo Route) route 4 times daily. microlet lancets colesevelam (WELCHOL) 625 mg Tablet Take 2 tablets by mouth 2 times daily (with meals). ranitidine (ZANTAC) 150 mg Tablet Take 1 tablet by mouth 2 times daily. liraglutide (VICTOZA) 0.6 mg/0.1 mL (18 mg/3 mL) Pen Injector Inject 0.6 mg subcutaneously daily. fexofenadine (SHELBI) 180 mg Tablet Take 1 tablet by mouth daily as needed. naproxen sodium (ANAPROX) 220 mg Tablet Take 2 tablets by mouth 2 times daily as needed. meclizine (ANTIVERT) 25 mg Tablet Take 1 tablet by mouth 3 times daily as needed. glucose (DEX4 GLUCOSE) 4 gram Tablet, Chewable Take 4 tablets by mouth as needed for Low blood sugar. eletriptan (RELPAX) 20 mg tablet 20 MG = 1 Tablet(s), PO, PRN amitriptyline (ELAVIL) 10 mg tablet 10m-2 Tablet(s), PO, QHS ALLERGIES: Allergies Allergen Reactions ??? Latex ??? [...] HPI. PHYSICAL EXAM: Vitals Office Visit from 03/19/2017 in Endocrinology at [facility] 93 BP 138/82 ASSESSMENT: 37 yo F with DM type 2 c/b noncompliance, with fasting BG running mostly in the 200s. It is important that her BG control improve. She is currently only on the lowest dose of Victoza, butadmits she's been missing victoza doses about once a week, and feels overwhelmed with the number of medications she needs to take, so would much rather be on a once weekly GLP-1 agonist. Since she experienced the seizure on Bydureon, I think it is best to avoid that particular one (and she would really prefer to do so as well), so I suggested Trulicity. From checking her insurance's formulary, itappears that Trulicity is on formulary but would need a prior authorization; since she already wentthrough that process with Victoza, I'm hoping that perhaps the process will be quicker this time. If the approval process is delayed, our backup plan is to increase the Victoza dose. I also spoke with her about SGLT-2 inhibitors (invokana, jardiance, or farxiga), but being a once daily tablet, for now she would rather try a once weekly injection and minimize the amount of pills she has to take. Sulfonylurea medications might be another alternative (or adjunct) to consider down the line if needed; she states she had been on a sulfonylurea medication in the past, and it was stopped because it wasn't working, however I do not know what the dose was, so it may work better at a more robust dose or in combination with the GLP-1 agonist. PLAN: --will try to switch from victoza to trulicity --If trulicity is denied will ramp up victoza to 1.2mg SC daily, then 1.6mg SC daily, then 1.8mg SCdaily --if trulicity is approved, will start with 0.75 mg SC weekly, and if BG are still above goal, willincrease to 1.5mg SC weekly. --f/u in 3 months with Heather Tanner APRN and in 6 months with myself, labs 1 hour prior to each appt. 25 min of this 40 min face to face visit was spent in counseling the patient on DM mgmt. ISABEL HICKS MD Clinical Nutrition Managersenior asic engineer Section of Endocrinology [facility] documented in this encounter Plan of Treatment Upcoming Encounters Date Type Department Care Team (Late st Contact Info) Description 12/03/2024 1:00 PM EDT Appointment Hematology [place] [phone] 12/03/2024 2:00 PM EDT Office Visit Hematology [place] [phone] Pelon Wisdom MD [facility] DR HEMATOLOGY [place] [address] Oksana Payne APRN [facility] [address] HEMATOLOGY [place] [address] documented as of this encounter Results * LDL Cholesterol, Direct (04/24/2017 3:48 PM EST) Pathologist [facility] LDL Cholesterol, Direct 187 <=190 mg/dL [facility] Blood specimen (specimen) 04/24/2017 3:48 PM EST 04/24/2017 3:54 PM EST Narrative Resulting Agency Comment Spec In Lab Isabel Hicks MD CHEMISTRY ORDERABLES [facility] [place] [address] * Creatinine (04/24/2017 3:48 PM EST) Pathologist [facility] Creatinine 0.75 0.70 - 1.20 mg/dL [facility] Est Glomerular Filtration Rate >60 >=60 [facility] Comment: The reported eGFR should be multiplied by 1.2 for patients. The MDRD is not an appropriate measure of renal function for patients with body mass extremes or in patients with acute kidney failure. [email or web address] Blood specimen (specimen) 04/24/2017 3:48 PM EST 04/24/2017 3:54 PM EST Narrative Resulting Agency Comment Spec In Lab Isabel Hicks MD CHEMISTRY ORDERABLES [facility] [place] [address] * (ABNORMAL) Hemoglobin A1c (04/24/2017 3:48 PM EST) Hemoglobin A1c 8.8(H) 4.3 - 5.6 % [facility] Comment: Reference Range: 4.3 - [...] Mellitus, Diabetes Care 2013; 36: Suppl. 1, S67-42 Estimated Average Glucose 206 mg/dL [facility] Comment: eAG equivalents for HbA1c [...] into estimated average glucose values. ??Diabetes Care 2008:31(8):6569-0610. Blood specimen (specimen) 04/24/2017 3:48 PM EST 04/24/2017 3:54 PM EST Narrative Resulting Agency Comment Spec In Lab Isabel Hicks MD CHEMISTRY ORDERABLES Performing Organization Address City/State/[facility] Co de Phone Number [facility] [place] [address] documented in this encounter Visit Diagnoses Diagnosis Type 2 diabetes mellitus without complication, without long-term current use of insulin documented in this encounter Care Teams Warehouse Consultant Relationship Specialty Start Date End Date Rosy Tavarez APRN [facility] [place] [address] PCP - General General Internal Medicine 02/14/1709/21 documented as of this encounter
--- OUTSIDE RECORDS SUMMARY | 2024-01-03 01:07 | XMS_ITS | Encounter Summary ---
Author Organization [place] [address] Care Team Providers Care Demurrage Agent Name Role Phone Leeanna Cohn MD Primary Care Provider [phone] Reason for Visit * Reason Onset Date Comments Prior Authorization 12/31/2016 Encounter Details Date Type Department Care Team ([facility] st Contact Info) Description 12/31/2016 [place]phone [place] [phone] Jackie Monahan Prior Authorization Social History Tobacco [...] * Telephone Encounter - Jackie Monahan - 12/31/2016 10:25 AM EDT Medication Prior Authorization JEANETTE Medication name/dose/directions: CONTOUR NEXT TEST STRIPS - TEST 4X DAILY Rationale for request: TYPE II DM Health [place]: [place]) Authorizing national account representative name: EBEN Faxed to health plan on: 12/31/16 Health plan decision: DENIED Quantity approved: PREFERRED OPTIONS INCLUDE FREESTYLE, FREESTYLE LITE, FREESTYLE INSULINX, ONE TOUCH ULTRA, ONE TOUCH VERIO, AND PRECISION Authorization number: [id number] Start date: End date: documented in this encounter Plan of Treatment Upcoming Encounters Date Type Department Care Team (Late st Contact Info) Description 12/03/2024 1:00 PM EDT Appointment Hematology [place] [address] 12/03/2024 2:00 PM EDT Office Visit Hematology [place] [address] Pelon Wisdom MD [facility] DR HEMATOLOGY [place] [address] Oksana Payne APRN [facility] [address] [place]EMATOLOGY [place] [address] documented as of this encounter Visit Diagnoses Not on filedocumented in this encounter Care Teams Demurrage Agent Relationship Specialty Start Date End Date Leeanna Cohn MD [address] [place] [address] PCP - General 03/14/10 02/13/17 documented as of this encounter
--- OUTSIDE RECORDS SUMMARY | 2024-01-03 01:07 | XMS_ITS | Encounter Summary ---
Author Organization [facility] Address [facility] [place] [address] Care Team Providers Care Intermediate Designer Name Role Phone Leeanna Cohn MD Primary Care Provider [phone] Reason for Visit * Reason Onset Date Comments Triage 01/16/2017 muscle stiffness Encounter Details Date Type Department Care Team (Late st Contact Info) Description 01/16/2017 [place] [phone] Cindy Quintanilla RN Triage (muscle stiffness) Social History Tobacco Use Types Packs/Day Years [...] encounter Miscellaneous Notes * Telephone Encounter - Cindy Quintanilla RN - 01/16/2017 1:55 PM EDT Emma is calling because she was seen on 01/14/17 and was given her flu shot and a tetanus shot. She was also given an rx for Remeron, which she started on Saturday night. Saturday morning she says shewoke up not feeling well. She reports intense muscle stiffness, like I overworked my muscles and extreme fatigue, so bad I can't even feel safe driving. She also reports having nausea, headache, eyes that feel sore and right ear pain. Recommended she come in to be seen, however there are no appointments left today and she is unable to come to the [facility]. Scheduled her to see Rosy Tavarez APRN tomorrow at 1:00. She plans to not take her Remeron tonight in case that is what is causing the symptoms. If she feels better tomorrow she will cancel the appointment. documented in this encounter Plan of Treatment Upcoming Encounters Date Type Department Care Team (Late st Contact Info) Description 12/03/2024 1:00 PM EDT Appointment Hematology [place] [address] 12/03/2024 2:00 PM EDT Office Visit Hematology [place] [phone] Pelon Wisdom MD [facility] [address] [place] [address] Oksana Payne APRN [facility] [place] [address] documented as of this encounter Visit Diagnoses Not on filedocumented in this encounter Care Teams Intermediate Designer Relationship Specialty Start Date End Date Leeanna Cohn MD [address] [place] [address] PCP - General 03/14/10 02/13/17 documented as of this encounter
--- OUTSIDE RECORDS SUMMARY | 2024-01-03 01:08 | XMS_ITS | Encounter Summary ---
Author Organization [facility] Address [address] [place] [address] Care Team Providers Care Licensing Engineer Name Role Phone Terry Hall MD Unavailable Che Sharpe Primary Care Provider + Reason for Visit * Reason Onset Date Comments Blood Sugar Problem 06/21/2022 Encounter Details Date Type Department Care Team (Late st Contact Info) Description 06/21/2022 Telephone [facility] Endocrinology - [facility] [address] [place] [address] Gely Walker, MAINTENANCE MECHANIC 2ND SHIFT [address] [facility] [address] [place] [address] Blood Sugar Problem Social History Tobacco Use Types Packs/Day Years Used Date Smoking Tobacco: Former Smokeless Tobacco: Never Alcohol Use Standard Drinks/Week Comments Yes 1 (1 standard drink = 0.6 oz pur e alcohol) PHQ-2 Answer Date Recorded PHQ-2 Score 0 11/24/2019 Interpersonal Safety Answer Date Record ed Physically Hurt Never 11/24/2019 Verbally Threaten Not on file 11/24/2019 Sex and Gender Information Value Date Recorded Sex Assigned at Female 01/29/2022 18:29 EDT Gender Identity Female 05/30/2019 9:03 EST Sexual Orientation Choose not to disclose 2023 15:46 EST documented as of this encounter Functional Status Functional Status Response Date of Assess ment Because of a physical, menta l, or emotional condition, does this person have difficulty doing errands alone such as visiting a doctor's office or shopping? No 05/23/2016 Cognitive Status Response Date of Assessm ent Because of a physical, menta l, or emotional condition, does this person have serious difficulty concentrating, remembering, or making decisions? No 05/23/2016 documented as of this encounter Miscellaneous Notes * Telephone Encounter - Mayi Mayorga - 06/21/2022 1730 EST Called her back. BG was improved to 176 but trending back up. Guided her to figure out her settings Manual basal is 0.8u/d but back on automated mode CR 1:10 Correction factor 1:35 target 120, correct above 140 On her pump hx TDI of today was 16u, it was 21u yesterday (77% basal) She is still on antibiotics, infection seems to be improving but not better yet. No nausea but more lethargic She has been eating less not because of nausea but because every time she eats and takes her usual bolus it goes up to 300s. Her manual basal seems higher than the automated mode basal so won't change that. Plan for now: -since it seems like infection affecting more postprandial she will switch her carb ratio while sick to 1:8 from 1:10. If after her next meal still very high then instructed her to try 1:6. Reminded her when illness better to go back to prior carb ratio. -can a CDE call back tomorrow and check in? Thanks ! Mayi Mayorga Endocrinology Fellow PGY-5 Pager # [phone] * Telephone Encounter - Katie Echeverria RN - 06/21/2022 1632 EST Type 2 diabetic currently using an Omnipod 5 insulin pump and a Dexcom G6 CGM reporting elevated blood glucoses that cause her pump to switch modes. Pt has an Omnipod 5 insulin pump that she has had for about 8 months and a Dexcom G6 CGM. The CGM is not linked to this clinic. 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 ABX may be Cephalexin. She does not know the dose. She takes this BID. She will be on this medication for another week. Pt reports atht once she takes the ABX her BGs rocket into the high 300's, and the wireless sensor alarms and switches her to manual mode. Pt is unsure of how to manage her pump on manual. She has yamilex trying to bolus but is afraid that she may overdo and cause a low. Yesterday she saw her PCP regarding the infection and her A1C and ketones were tested. This technical report writer went over testing for ketones and how to treat with hydration and when to seek assistance. Routing to fellows. Patient verbalized understanding. No barriers to learning noted. Katie Echeverria RN Endocrinology * Telephone Encounter - Jenn Dejesus - 06/21/2022 1410 EST Patient calling for update * Telephone Encounter - Sharda Alvarado - 06/21/2022 0810 EST Pt calling. Uses Insulin Pump. If sugars are high for too long, the pump switches modes. BS this am 160, states it will shoot up into 300's as soon as she eats. Please call to discuss. documented in this encounter Plan of Treatment Not on file documented as of this encounter Visit Diagnoses Not on filedocumented in this encounter Care Teams Licensing Engineer Relationship Specialty Start Date End Date Che Sharpe PA [address] [place] [address] [place] [phone] PCP - General 10/16/21 Terry Hall MD [address] [place] [id number] 07/02/14 documented as of this encounter
--- OUTSIDE RECORDS SUMMARY | 2024-01-03 01:08 | XMS_ITS | Encounter Summary ---
Author Organization [facility] Address [address] [place] [address] Care Team Providers Care Horse Racetrack Manager Name Role Phone Terry Hall MD Unavailable Che Sharpe Primary Care Provider + Reason for Visit * Reason Comments Medications Refill Encounter Details Date Type Department Care Team (Late st Contact Info) Description 09/16/2022 Refill [facility] Endocrinology - [facility] [address] [place] [address] Gely Walker, COMPONENT INSPECTOR [address] [facility] [address] [place] [address] Medications Refill Social History Tobacco Use Types Packs/Day [...] No 05/23/2016 documented as of this encounter Ordered Prescriptions Prescription Sig Dispensed Refills Start Date End Da te insulin lispro (HUMALOG U-100 INSULIN) 100 unit/mL vial INJECT INTO THE SKIN UP TO 75 UNITS VIA INSULIN PUMP 30 mL 09/18/2022 11/06/2022 documented in this encounter Miscellaneous Notes * Telephone Encounter - Mary Wallis (Rn), RN - 09/18/2022 1034 EDT Pt last seen 07/05/2022. documented in this encounter Plan of Treatment Not on file documented as of this encounter Visit Diagnoses Not on filedocumented in this encounter Discontinued Medications Medication Sig Discontinue Reason Start Date End Da te insulin lispro (HUMALOG) 100 unit/mL vial Inject into the skin up to 75 units via insulin pump 08/10/2022 09/18/2022 documented as of this encounter Care Teams Horse Racetrack Manager Relationship Specialty Start Date End Date Che Sharpe PA [address] [place] [address] [place] [phone] PCP - General 10/16/21 Terry Hall MD [address] [place] [id number] 07/02/14 documented as of this encounter
--- OUTSIDE RECORDS SUMMARY | 2024-01-03 01:08 | XMS_ITS | Encounter Summary ---
Author Organization [facility] [place] [place] [address] Care Team Providers Care Tripe Cooker Name Role Phone Leeanna Cohn MD Primary Care Provider [phone] Encounter Details Date Type Department Care Team (Late st Contact Info) Description 11/07/2016 1:30 PM EDT Office [place] [address] Giacomo Obrien [facility] [place] [address] Clara Nguyen MD [facility] [place] [address] Type 2 diabetes mellitus without complication, with long-term current use of insulin Social History Tobacco Use Types Packs/Day Years Used Date Smoking Tobacco: Every Day Cigarettes Sex and Gender Information Value Date Recorded Sex Assigned at Not on file Gender Identity Not on file Sexual Orientation Not on file documented as of this encounter Last Filed Vital Signs Vital Sign Reading Time Taken Comments Blood Pressure 115/65 11/07/2016 1:31 PM EDT Pulse 91 11/07/2016 1:31 PM EDT Temperature - - Respiratory Rate - - Oxygen Saturation - - Inhaled Oxygen Concentration - - Weight 86.2 kg (190 lb) 11/07/2016 1:31 PM EDT Height 162.6 cm (5' 4) 11/07/2016 1:31 PM EDT Body Mass Index 32.61 11/07/2016 1:31 PM EDT documented in this encounter Patient Instructions * Patient Instructions* Clara Nguyen MD - 11/07/2016 1:30 PM EDT Please go down to lab for blood and urine today - 3L Please discontinue Lantus and Bydureon altogether We think we will start Metformin 500mg (low dose) extended release We will see you back in clinic in 3 months at which time we will reconsider adding Bydureon back on. Congratulations on losing weight - please continue to do so! Thank you for your patience. documented in this encounter Progress Notes * Clara Nguyen MD - 11/07/2016 1:30 PM EDT New Patient in Clinic History & Physical Name: Emma Min Date: 11/07/2016 Reason for Consultation: Emma Min is a 36 y.o. female with PMH significant for reflux who is currently being seen for management of diabetes type 2. Diabetes History: Onset & Duration: Emma Min has had diabetes since 7 years ago. At the onset, she had a severe allergic reaction to a medication (antidepressant) - ended up placing her on a high dose of Prednisone and they subsequently diagnosed her as diabetic. She was started on Metformin - but intolerant to it because of diarrhea and she has IBS. She was previously seeing Endo at [facility]. She has been never been hospitalized for hyperglycemia but has gone to ER in July/August first time for elevated sugars and then once again last month for an episode of severe hypoglycemia. Current home diabetes regimen: Medications: Lantus 13 units prn, she does FSBG and if it is greater than 150mg/dl, she will take it. (not taking it as prescribed). Had a severe reaction to Bydureon -->severe hypoglycemia with seizure - one month ago. Monitoring is done 4 times a day Glucometer shows in the last 2 weeks she has had an average of 1.4 readings per day. Average sugar 167mg/dl Highest reading 284mg/dl Lowest reading 98 mg/dl Most recent HA1c was done on unknown and as per patient report it was around 8%. Typical diet is: 3 meals and 1-2 snacks a day Breakfast- toast w/butter; yogurt, instant oatmeal; coffee with cream and splenda; eggs; bagels Lunch- salad, sandwiches Supper- pasta - once or twice week; protein and vegetables; Snacks - nuts; once in a while chips; popcorn Beverages - iced tea - sometimes sweetned Desserts - not regularly Typical exercise regimen is walking daily x 30min - 1hr and goes to gym - at least once a week. Trouble with hypoglycemia yes - occurs at least once week. Sporadic. When she has lows - she gets dizzy, nauseous, and feels as though she will pass out and feels disoriented. Diabetes Complications Status: Eyes: None - she is due now however Kidneys: None Feet: None Sensory: None Autonomic: None Cardiac: None ROS: Constitutional: +weight loss 150lbs in the last 2.5 years - through diet and exercise. Endocrine: intermittently increased thirst & urination Eyes: No recent vision change ENT: No dysphagia, dental issues Cardiovascular: No chest pain Respiratory: No wheezing , shortness of breath GI: + nausea, vomiting, + diarrhea, constipation : No frequent urinary tract infections Neurological: No weakness or numbness PMH Reflux Diabetes Current Medications: ??? ranitidine (ZANTAC) 150 mg Tablet ??? colesevelam (WELCHOL) 625 mg Tablet ??? insulin glargine (LANTUS SOLOSTAR) Insulin Pen Allergy: Allergies Allergen Reactions ??? Latex ??? 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 Vitals Ht 162.6 cm (5' 4) Wt 86.2 kg (190 lb) BMI 32.61 kg/m2 Physical exam: Gen: well developed, well nourished female, who appears stated age, NAD HEENT- PERRLA, EOMi b/l Neck- supple, no goiter, no lymphadenopathy; no acanthosis nigricans in nape of neck Lungs - +air entry b/l Heart - +s1, s2 Abdomen- +bs, soft, NT/ND Extremities - no c/c/e b/l LE Feet - normal skin exam, normal nails, 2+ dorsalis pedal pulses Neuro- AAOX4, sensation intact Skin - warm & dry Labs: Will obtain hba1c today. Assessment: Patient is a 36 y.o. female with PMH significant for DM, most likely type 2 given her history that she was previously 150lbs heavier and that she only uses Lantus prn BG >150mg/dl and hasn't gone into DKA. However, just given her young age, we will check a glucose and random c-peptide level to confirm diagnosis of type 2 diabetes. She currently is only taking Lantus 3-4 times a week and has been off of Bydureon for about 1-2 weeks now. She experienced her severe hypoglycemic episode while taking a combination of Lantus and Bydureon which resulted in a hypoglycemic seizure. We will have her discontinue both Lantus and Bydureon for now. We will have her instead try and restart a very low dose of the extended release version of Metformin. We hope that the extended release version is something patient can tolerate better in regards to the GI side effects. We will see her back in clinic in 3 months at which time we recheck a hba1c and perhaps consider the re-addition of only GLP-1 agonist at that time. Patient is agreeable to this plan. Plan: Please go down to lab for blood and urine today - 3L Please discontinue Lantus and Bydureon altogether We think we will start Metformin 500mg (low dose) extended release We will see you back in clinic in 3 months at which time we will reconsider adding Bydureon back on. Congratulations on losing weight - please continue to do so! I have discussed this case with the attending physician, Dr. Obrien, who was fully involved in the formulation of the plan mentioned above. Thank you for allowing us to provide care for your patient Clara Nguyen MD Endocrinology Fellow, PGY-4 11/07/2016 * Giacomo Obrien DO - 11/07/2016 1:30 PM EDT I have seen the patient and reviewed Dr Nguyen's history and I agree with the details as written. The assessment and plan were formulated in discussion with me and I agree with them as documented. Giacomo Obrien DO, MS Legal Nurse Consultantrn training Section of Endocrinology [facility] documented in this encounter Plan of Treatment Upcoming Encounters Date Type Department Care Team (Late st Contact Info) Description 12/03/2024 1:00 PM EDT Appointment Hematology [place] [address] 12/03/2024 2:00 PM EDT Office Visit Hematology [place] [phone] Pelon Wisdom MD [facility] [address] [place] [address] Oksana Payne APRN [facility] [address] [place] [address] documented as of this encounter Procedures Procedure Name Priority Date/Time Associated Diagnosis Comments C-PEPTIDE Routine 11/07/2016 3:04 PM EDT Type 2 diabetes mellitus without complication, with long-term current use of insulin HEMOGLOBIN A1C Routine 11/07/2016 3:04 PM EDT Type 2 diabetes mellitus without complication, with long-term current use of insulin GLUCOSE Routine 11/07/2016 3:04 PM EDT Type 2 diabetes mellitus without complication, with long-term current use of insulin U ALBUMIN/CRE RATIO Routine 11/07/2016 2 :57 PM EDT Type 2 diabetes mellitus without complication, with long-term current use of insulin documented in this encounter Results * (ABNORMAL) Hemoglobin A1c (11/07/2016 3:04 PM EDT) Hemoglobin A1c 7.2(H) 4.3 - 5.6 % [facility] Comment: Reference Range: 4.3 - [...] Mellitus, Diabetes Care 2013; 36: Suppl. 1, E57-56 Estimated Average Glucose 160 mg/dL [facility] Comment: eAG equivalents for HbA1c [...] into estimated average glucose values. ??Diabetes Care 2008:31(8):0344-7405. Blood specimen (specimen) 11/07/2016 3:04 PM EDT 11/07/2016 3:12 PM EDT Narrative Resulting Agency Comment Spec In Lab Giacomo Obrien DO CHEMISTRY ORDERABLES [facility] [place] [address] * Glucose, random (11/07/2016 3:04 PM EDT) Glucose 185 65 - 199 mg/dL [facility] Comment:Diabetes: >=200 mg/d L plus symptoms Blood specimen (specimen) 11/07/2016 3:04 PM EDT 11/07/2016 3:12 PM EDT Narrative Resulting Agency Comment Spec In Lab Giacomo Obrien CHEMISTRY ORDERABLES Performing Organization Address [facility] Co de Phone Number [facility] [place] [address] * C-peptide (11/07/2016 3:04 PM EDT) C-Peptide 5.2 0.8 - 5.2 ng/mL [facility] Comment: Please note: as of 08/22/2016, C-Peptide testing is being performed in the [facility] using a new test method with a new reference interval. Blood specimen (specimen) 11/07/2016 3:04 PM EDT 11/07/2016 3:12 PM EDT Narrative Resulting Agency Comment Spec In Lab Giacomo Obrien DO CHEMISTRY ORDERABLES Performing Organization Address [facility] Co de Phone Number [facility] [place] [address] * U Albumin/Cre Ratio (11/07/2016 2:57 PM EDT) Albumin / Creatinin Ratio, Urine 4 0 - 29 mcg/mg Cr [facility] Comment: Reference Ranges: <30 mcg/mg: [...] 2, 357? 362 Albumin, Urine 9.9 mg/L [facility] Creatinine, Urine 224 mg/dL [facility] Urine specimen (specimen) 11/07/2016 2:57 PM EDT 11/07/2016 3:07 PM EDT Narrative Resulting Agency Comment Spec In Lab Giacomo Obrien DO URINE ORDERABLES [facility] [place] [address] documented in this encounter Visit Diagnoses Diagnosis Type 2 diabetes mellitus without complication, with long-term current use of insulin documented in this encounter Care Teams Tripe Cooker Relationship Specialty Start Date End Date Leeanna Cohn MD [address] [place] [address] PCP - General 03/14/10 02/13/17 documented as of this encounter
--- OUTSIDE RECORDS SUMMARY | 2024-01-03 01:08 | XMS_ITS | Encounter Summary ---
Author Organization [facility] [place] [address] Care Team Providers Care Detailer [employer] Name Role Phone Leeanna Cohn MD Primary Care Provider [phone] Reason for Referral * Consultation (Routine) - Closed Specialty Diagnoses / Procedures Referred By Luana landon Referred To Contact Neurology Diagnoses Vertigo Rosy Tavarez APRN [facility] [place] [address] [facility] [address] [place] [address] Referral ID Status Reason Start Date Expiration Date V isits Requested Visits Authorized [id number] Closed Specialty Service Requested 11/15/2016 11/15/2017 1 1 Reason for Visit * Reason Comments Dizziness x1m. Has had syncope once and came close one other time. Fatigue and lethargy. Headaches almost every day on the sides or front of her head. Numbness in arms occasionally. Encounter Details Date Type Department Care Team (Late st Contact Info) Description 11/15/2016 3:20 PM EDT Office [place] [address] Rosy Tavarez APRN [facility] [address] [place] [address] Seasonal allergic rhinitis due to pollen; Migraine without aura and with status migrainosus, not intractable; Impacted cerumen of right ear; Vertigo Social History Tobacco Use Types Packs/Day Years Used Date Smoking Tobacco: Every Day Cigarettes Alcohol Use Standard Drinks/Week Comments No 0 (1 standard drink = 0.6 oz pur e alcohol) Sex and Gender Information Value Date Recorded Sex Assigned at Not on file Gender Identity Not on file Sexual Orientation Not on file documented as of this encounter Last Filed Vital Signs Vital Sign Reading Time Taken Comments Blood Pressure 120/63 11/15/2016 3:03 PM EDT Pulse 107 11/15/2016 3:03 PM EDT Temperature 37 ??C (98.6 ??F) 11/15/2016 3:03 PM EDT Respiratory Rate 17 11/15/2016 3:03 PM EDT Oxygen Saturation 98% 11/15/2016 3:03 PM EDT Inhaled Oxygen Concentration - - Weight 86.4 kg (190 lb 6.4 oz) 11/15/2016 3:03 P M EDT Height - - Body Mass Index 32.68 11/07/2016 1:31 PM EDT documented in this encounter Patient Instructions * Patient Instructions* Rosy Tavarez APRN - 11/15/2016 3:26 PM EDT Images from the original note were not included. [facility] Benign Paroxysmal Positional Vertigo (BPPV): Care Instructions Your Care Instructions Benign paroxysmal positional vertigo, also called BPPV, is an inner ear problem. It causes a spinning or whirling sensation when you move your head. This sensation is called vertigo. The vertigo usually lasts for less than a minute. People often have vertigo spells for a few days or weeks. Then the vertigo goes away. But it may come back again. The vertigo may be mild, or it may be bad enough to cause unsteadiness, nausea, and vomiting. When you move, your inner ear sends messages to the brain. This helps you keep your balance. Vertigo can happen when debris builds up in the inner ear. The buildup can cause the inner ear to send thewrong message to the brain. Your doctor may move you in different positions to help your vertigo get better faster. This is called the Jessica maneuver. Your doctor may also prescribe medicines or exercises to help with your symptoms. Follow-up care is a zamora part of your treatment and safety. Be sure to make and go to all appointments, and call your doctor if you are having problems. It's also a good idea to know your test resultsand keep a list of the medicines you take. How can you care for yourself at home? ?? If your doctor suggests that you do Overton-Daroff exercises: ?? Sit on the edge of a bed or sofa. Quickly lie down on the side that causes the worst vertigo. Lie on your side with your ear down. ?? Stay in this position for at least 30 seconds or until the vertigo goes away. ?? Sit up. If this causes vertigo, wait for it to stop. ?? Repeat the procedure on the other side. ?? Repeat this 10 times. Do these exercises 2 times a day until the vertigo is gone. When should you call for help? Call 911 anytime you think you may need emergency care. For example, call if: ?? You have symptoms of a stroke. These may include: ?? Sudden numbness, tingling, weakness, or loss of movement in your face, arm, or leg, especially on only one side of your body. ?? Sudden vision changes. ?? Sudden trouble speaking. ?? Sudden confusion or trouble understanding simple statements. ?? Sudden problems with walking or balance. ?? A sudden, severe headache that is different from past headaches. Call your doctor now or seek immediate medical care if: ?? You have new or worse nausea and vomiting. ?? You have new symptoms such as hearing loss or roaring in your ears. Watch closely for changes in your health, and be sure to contact your doctor if: ?? You are not getting better as expected. ?? Your vertigo gets worse. Where can you learn more? Visit our health information library at [email or web address]. You can also view health information on [employer], your personal patient account. Log in or sign uptoday. Enter P372 in the search box to learn more about Benign Paroxysmal Positional Vertigo (BPPV): CareInstructions. Current as of: February 08, 2016 Content Version: 11.3 ?? 6101-0579 [employer]. Care instructions adapted under license by [facility]. If you have questions about a medical condition or this instruction, always ask your healthcare professional. [employer] disclaims any warranty or liability for your use of this information. [facility] Jessica Maneuver at Home for Vertigo: Exercises Your Care Instructions Vertigo is a spinning or whirling sensation when you move your head. Your doctor may have moved you in different positions to help your vertigo get better faster. This is called the Jessica maneuver. Your doctor also may have asked you to do these exercises at home. Do the exercises as often as your doctor recommends. If your vertigo is getting worse, your doctor may have you change the exercise or stop it. How to do the exercises Step 1 Sit on the edge of a bed or sofa. Step 2 Turn your head 45 degrees in the direction your doctor told you to. This may be toward the ear thatcauses the most vertigo for you. Step 3 Tilt yourself backward until you are lying on your back. Your head should still be at a 45-degree turn. Your head should be about midway between looking straight ahead and looking out to your side. Hold for 30 seconds. If you have vertigo, stay in this position until it stops. Step 4 Turn your head 90 degrees toward the ear that has the least vertigo. The point of your chin should be over your shoulder. Hold for 30 seconds. Step 5 Roll onto the side of the ear with the least vertigo. You should now be looking at the floor. Follow-up care is a zamora part of your treatment and safety. Be sure to make and go to all appointments, and call your doctor if you are having problems. It's also a good idea to know your test resultsand keep a list of the medicines you take. Where can you learn more? Visit our health information library at [email or web address]. You can also view health information on [employer], your personal patient account. Log in or sign uptoday. Enter P834 in the search box to learn more about Jessica Maneuver at Home for Vertigo: Exercises. Current as of: June 27, 2016 Content Version: 11.3 ?? [id number] [employer]. Care instructions adapted under license by [facility]. If you have questions about a medical condition or this instruction, always ask your healthcare professional. [employer] disclaims any warranty or liability for your use of this information. documented in this encounter Progress Notes * Rosy Tavarez APRN - 11/15/2016 3:20 PM EDT Subjective: Patient ID: Emma Min is a 36 y.o. female. [facility] Emma is here to establish care. She moved from [place] and moved in with her boyfriend. She has two daughters age 11 and 13 and they all get along well. She is not working currently, previouslyin [employer]. She had previously been healthy until diagnosis of DM2 and allergies to many medications. She saw endocrine today and starting Victoza. Did not tolerate Metformin. Gerd - takes Ranitidine Depression - off and on but allergic to all medications that were tried. She does not recall the names of any of them, records have not been sent. Seasonal allergies, also Lactose and Latex - takes Shelbi as needed. Migraine headaches, sometimes daily - takes aleve rotates from right side of head to left side of head. She called today due to vertigo for 4 weeks off and on. She states that she passed out 3 weeks ago and had seizure activity incontinent of urine, was found to have low sugar at the time as she went to [facility] ( also do not have records). She states she felt herself passing out again and this time the sugar was high. Social, medical and family history updated. Review of Systems Constitutional: Negative for activity change, appetite change, chills, diaphoresis, fatigue, fever and unexpected weight change. HENT: Positive for rhinorrhea (at times with allergies). Negative for congestion, sore throat and trouble swallowing. Eyes: Negative for visual disturbance. Respiratory: Negative for cough and shortness of breath. Cardiovascular: Negative for chest pain and palpitations. Gastrointestinal: Negative for abdominal pain, constipation, diarrhea, nausea and vomiting. Genitourinary: Negative for difficulty urinating and dysuria. Musculoskeletal: Negative for arthralgias. Skin: Negative for rash. Neurological: Positive for dizziness, syncope and headaches. Negative for light-headedness. Psychiatric/Behavioral: Positive for dysphoric mood. Negative for self-injury, sleep disturbance and suicidal ideas. The patient is not nervous/anxious. Objective: Physical Exam Constitutional: She is oriented to person, place, and time. She appears well- developed and well-nourished. HENT: Head: Normocephalic and atraumatic. Right Ear: External ear normal. Left Ear: Tympanic membrane, external ear and ear canal normal. Mouth/Throat: Oropharynx is clear and moist. No oropharyngeal exudate. Right impacted with cerumen, clear after ear wash Eyes: Conjunctivae and EOM are normal. Pupils are equal, round, and reactive to light. Neck: Neck supple. No thyromegaly present. Cardiovascular: Normal rate and regular rhythm. Pulmonary/Chest: Effort normal and breath sounds normal. Lymphadenopathy: She has no cervical adenopathy. Neurological: She is alert and oriented to person, place, and time. She has normal strength. No cranial nerve deficit or sensory deficit. GCS eye subscore is 4. GCS verbal subscore is 5. GCS motor subscore is 6. Reflex Scores: Patellar reflexes are 0 on the right side and 0 on the left side. Skin: Skin is warm and dry. Vitals reviewed. Assessment and Plan: Emma was seen today for dizziness and to establish care. See encounter summary for patient instructions on Jessica exercises and vertigo. Due to losing consciousness will consult Neurology. Diagnoses and all orders for this visit: Seasonal allergic rhinitis due to pollen - fexofenadine (SHELBI) 180 mg Tablet; Take 1 tablet by mouth daily as needed. Migraine without aura and with status migrainosus, not intractable - naproxen sodium (ANAPROX) 220 mg Tablet; Take 2 tablets by mouth 2 times daily as needed. Impacted cerumen of right ear - Ear wax removal Vertigo - meclizine (ANTIVERT) 25 mg Tablet; Take 1 tablet by mouth 3 times daily as needed. - Referral to Neurology - Basic Metabolic Panel (non-fasting); Future - CBC (with Diff); Future - TSH; Future - Basic Metabolic Panel (non-fasting) - CBC (with Diff) - TSH - Hemogram - Differential, Automated documented in this encounter Plan of Treatment Upcoming Encounters Date Type Department Care Team (Late st Contact Info) Description 12/03/2024 1:00 PM EDT Appointment [place] [address] 12/03/2024 2:00 PM EDT Office Visit [place] [address] Pelon Wisdom MD [facility] [place] [address] Oksana Payne APRN [facility] [place] [address] Scheduled Referrals Name Type Priority Associated Diagnoses Orde r Schedule Referral to Neurology Outpatient Referral Routine Vertigo Ordered: 11/15/2016 documented as of this encounter Procedures Procedure Name Priority Date/Time Associated Diagnosis Comments HEMOGRAM Routine 11/15/2016 3:51 PM EDT Vertigo DIFFERENTIAL, AUTOMATED Routine 11/15/2016 3:51 PM EDT Vertigo CBC (WITH DIFF) Routine 11/15/2016 3:51 PM EDT Vertigo TSH Routine 11/15/2016 3:51 PM EDT Vertigo BASIC METABOLIC PANEL Routine 11/15/2016 3:51 PM EDT Vertigo documented in this encounter Results * Differential, Automated (11/15/2016 3:51 PM EDT) Neutrophil % 64.6 % [facility] Neutrophil Absolute 5.78 1.70 - 6.10 x10(3)/[facility] Lymph % 25.0 % [facility] Lymphocytes Abs 2.2 0.9 - 3.2 x10(3)/[facility] Monocyte % 6.8 % [facility] Monocyte Abs 0.6 0.3 - 0.9 x10(3)/[facility] Eos % 3.0 % [facility] Eosinophils Abs 0.3 0.0 - 0.4 x10(3)/[facility] Basophil % 0.4 % [facility] Baso Absolute 0.0 0.0 - 0.1 x10(3)/[facility] Immature Gran % 0.20 % [facility] Comment: Immature granulocytes(IG's)percentage and absolute count will include metamyelocytes, myelocytes, and promyelocytes. Blood smears from CBCs yielding IG's will be scanned manually for concordance. If this scan disagrees with the automated IG or if promyelocytes are noted, a manual differential will be performed. Immature Gran Absolute 0.02 0.00 - 0.04 x10(3)/[facility] Blood specimen (specimen) 11/15/2016 3:51 PM EDT 11/15/2016 3:55 PM EDT Narrative Resulting Agency Comment Spec In Lab Rosy Tavarez APRN HEMATOLOGY ORDERABLE S [facility] [place] [address] * (ABNORMAL) Hemogram (11/15/2016 3:51 PM EDT) White Blood Cell 9.0 4.0 - 9.5 x10(3)/mc L [facility] Red Blood Cell 3.93(L) 4.00 - 5.21 x10(6)/mc L [facility] Hemoglobin 13.7 11.7 - 15.5 gm/dL [facility] Hematocrit 38.1 35.7 - 45.8 % [facility] Mean Cell Volume 96.9(H) 82.6 - 94.4 fL [facility] Mean Cell Hemoglobin 34.9(H) 27.1 - 32.0 pg [facility] Mean Cell Hemoglobin Concentration 36.0(H) 31.7 - 35.0 gm/dL [facility] Platelet 287 145 - 357 x10(3)/mc L [facility] RDW Standard Deviation 40.1 37.0 - 46.0 fL [facility] RDW coefficient of variation 11.2(L) 11.5 - 14.1 % [facility] Mean Platelet Volume 10.8 7.6 - 12.9 fL [facility] NRBC% auto 0.0 % [facility] NRBC Absolute 0.000 0.000 - 0.000 x10(3)/mc L [facility] Blood specimen (specimen) 11/15/2016 3:51 PM EDT 11/15/2016 3:55 PM EDT Narrative Resulting Agency Comment Spec In Lab Rosy Tavarez APRN HEMATOLOGY ORDERABLE S Performing Organization Address City/[facility]/ZIP Co de Phone Number [facility] [place] [address] * TSH (11/15/2016 3:51 PM EDT) Thyroid Stimulating Hormone 1.15 0.27 - 4.20 mlU/ML [facility] Blood specimen (specimen) 11/15/2016 3:51 PM EDT 11/15/2016 3:55 PM EDT Narrative Resulting Agency Comment Spec In Lab Rosy Tavarez APRN CHEMISTRY ORDERABLES Performing Organization Address City/[facility]/ZIP Co de Phone Number [facility] [place] [address] * Basic Metabolic Panel (non-fasting) (11/15/2016 3:51 PM EDT) Glucose 163 65 - 199 mg/dL [facility] Comment:Diabetes: >=200 mg/d L plus symptoms Blood Urea Nitrogen 15 8 - 18 mg/dL [facility] Creatinine 1.00 0.70 - 1.20 mg/dL [facility] Comment: Please note that the pediatric reference intervals supplied above were not validated at [facility]. Results from pediatric patients should be interpreted in conjunction to the patient's age, height and muscle mass. Sodium 139 135 - 145 mmol/L [facility] Potassium 3.8 3.5 - 5.0 mmol/L [facility] Comment: Please note: ??Patients with WBC >100,000 may have falsely elevated Potassium levels. ??For accurate Potassium quantification in these patients send serum separator tube (gold top) for subsequent determinations. ??Contact the Clinical Chemistry Laboratory if there are any questions. Chloride 98 98 - 107 mmol/L [facility] Carbon Dioxide 26 22 - 31 mmol/L [facility] Anion Gap 15 5 - 15 mmol/L [facility] Calcium 9.6 8.5 - 10.5 mg/dL [facility] Est Glomerular Filtration Rate >60 >=60 [facility] Comment: This estimated GFR (eGFR) value was calculated using the MDRD equation which has been validated on patients between the ages of 18 and 70. The MDRD should not be used to assess kidney function in patients < 18 years of age or in patients with extremes of body mass, or in patients with acute kidney failure. This value should be multiplied by 1.2 for patients. For further information please copy and paste the following links into your internet browser. [email or web address]/DHnkdep [email or web address]/[email or web address] Blood specimen (specimen) 11/15/2016 3:51 PM EDT 11/15/2016 3:55 PM EDT Narrative Resulting Agency Comment Spec In Lab Rosy Tavarez APRN CHEMISTRY ORDERABLES [facility] [place] [address] documented in this encounter Visit Diagnoses Diagnosis Seasonal allergic rhinitis due to pollen Migraine without aura and with status migrainosus, not intractable Migraine without aura, without mention of intractable migraine with status migrainosus Impacted cerumen of right ear Impacted cerumen Vertigo Dizziness and giddiness documented in this encounter Care Teams [employer]er [employer] Relationship Specialty Start Date End Date Leeanna Cohn MD [address] [place] [address] PCP - General 03/14/10 02/13/17 documented as of this encounter
--- OUTSIDE RECORDS SUMMARY | 2024-01-03 01:08 | XMS_ITS | Encounter Summary ---
Author Organization [facility] [place] [address] Care Team Providers Care Facility Rehab Director Name Role Phone Leeanna Cohn MD Primary Care Provider [phone] Encounter Details Date Type Department Care Team (Late Contact Info) Description 11/16/2016 Telephone [place] [address] Ольга Carter LPN Social History [...] Telephone Encounter - Ольга Carter LPN - 11/16/2016 1:00 PM EDT Message from patient that Maria Esther has a question regarding Victoza dose and that she still can get her Insulinx test strips. Nurse called [facility] Rx for test strips was found. PA needed for Victoza. Called patient who was advised of this and that it can take a few to several days to get a responsefrom insurance on a PA Forward to loan secretary for PA documented in this encounter Plan of Treatment Upcoming Encounters Date Type Department Care Team ([facility] Contact Info) Description 12/03/2024 1:00 PM EDT Appointment Hematology [place] [address] 12/03/2024 2:00 PM EDT Office Visit Hematology [place] [address] Pelon Wisdom MD [facility] [address] [place] [address] Oksana Payne APRN [facility] [place] [address] documented as of this encounter Visit Diagnoses Not on filedocumented in this encounter Care Teams Facility Rehab Director Relationship Specialty Start Date End Date Leeanna Cohn MD [address] [place] [address] PCP - General 03/14/10 02/13/17 documented as of this encounter
--- OUTSIDE RECORDS SUMMARY | 2024-01-03 01:08 | XMS_ITS | Encounter Summary ---
Author Organization [facility] Address [address] [place] [address] Care Team Providers Care Rn Palliative Name Role Phone Terry Hall MD Unavailable Che Sharpe Primary Care Provider + Encounter Details Date Type Department Care Team (Late st Contact Info) Description 06/20/2022 Lab Requisition [facility] Pathology & Laboratory Medicine - [facility] [address] [place] [address] Outr Resulting Lab, Provider Social History Tobacco Use Types Packs/Day Years [...] No 05/23/2016 documented as of this encounter Plan of Treatment Not on file documented as of this encounter Procedures Procedure Name Priority Date/Time Associated Diagnosis Comments HEMOGLOBIN A1C Routine 06/20/2022 15:32 EST documented in this encounter Results * (ABNORMAL) HEMOGLOBIN A1C (06/20/2022 15:32 EST) Hemoglobin A1c 6.7(H) <5.7 % 06/21/2022 11:22 EST [facility] Comment: Glycemic Status References: Normal: ??<5.7% Pre-Diabetes: ??5.7% - 6.4% Diagnostic of Diabetes: ??> or = 6.5% (if confirmed) Est Avg Glucose 146 mg/dL 11:22 EST [facility] Comment:The eAG represents t he A1c result expressed as average glucose in mg/dL. Blood VENOUS BLOOD / Unknown 06/20/2022 15:32 EST 06/20/2022 22:25 EST Provider Outr Resulting Lab CHEMISTRY & BLOOD GAS ORDERABLES [facility] [address] [place] [address] documented in this encounter Visit Diagnoses Not on filedocumented in this encounter Care Teams Rn Palliative Relationship Specialty Start Date End Date Che Sharpe PA [address] [place] [address] [id number] PCP - General 10/16/21 Terry Hall MD [address] [place] [address] 07/02/14 documented as of this encounter
--- OUTSIDE RECORDS SUMMARY | 2024-01-03 01:08 | XMS_ITS | Encounter Summary ---
Author Organization [facility] Address [address] [place] [address] Care Team Providers Care Deputy Chief Executive Name Role Phone Terry Hall MD Unavailable Che Sharpe Primary Care Provider + Reason for Visit * Reason Comments Diabetes Encounter Details Date Type Department Care Team (Latest Contact Info) Description 07/05/2022 15:30 EDT Telemedicine [facility] Endocrinology - [facility] [address] [place] [address] Gely Walker, PET RESORT CONCIERGE [address] [facility] [address] [place] [address] Type 2 diabetes mellitus with hyperglycemia, with long-term current use of insulin ([facility]) (Primary Dx) Social History Tobacco Use Types Packs/Day Years [...] No 05/23/2016 documented as of this encounter Progress Notes * Gely Walker NP - 07/05/2022 1530 EDT TELEMEDICINE VIDEO VISIT Today's visit was provided through telemedicine video conferencing: I have reviewed the appropriateness of using video technology with the patient with regards to today's visit. The location of the patient : Home Patient location state: Visit Location State: [place] The location of the provider: Home Office Provider location state: Visit Location State: [place] The following people and their roles were present for today's visit: Appointment Provider: Gely Walker NP Laurie M Davignon, NP The concept of ???Telemedicine?? has been described to the patient.? Patient has been informed of the anticipated benefits and possible risks.? Patient understands the information provided regardingtelemedicine, has had the opportunity to ask questions about this information, and all questions have been answered to patient???s satisfaction. Patient consents for the use of telemedicine in his/her medical care and authorizes the transmission of any relevant medical information to providers and their staff involved in patient???s medical or mental health care. Patient understands that they maybe responsible for copays, deductible or coinsurance for this service. [facility] Diabetes Follow-Up Note Chief Complaint Patient presents with ??? Diabetes HPI: Emma Min has had diabetes about age 26. Diabetes was diagnosed in 2004 and classified as type 2 although likely has a component of type I in the setting of hemochromatosis. She has no known complications. Her maternal aunt has T2DM, and PGM, PGF as well. Emma Min recently has a history of being in fair in the past but since starting pump most recnet A1c 6.7 per pt at PCP Patient has a history of being compliant most of the time with medical therapy. Glucose monitoring: dexcom. Home Blood Glucoses Running: dexcom. 59% in target, without significant lows or high Patient corrects for high blood sugar consistently, boluses for snacks consistently, boluses for meals consistently, utilizes multiple injection/infusion sites and adjusting insulin doses in-between visits based on blood glucose trends Patient has a current medication list which includes the following prescription(s): blood glucose, dexcom g6 sensor, dexcom g6 transmitter, famotidine, insulin glargine, insulin lispro, insulin pen needles 31g x 3/16, omnipod 5 g6 intro kit (gen 5), omnipod 5 g6 pods (gen 5), insulin syringe-needle u-100, medroxyprogesterone, one touch delica, onetouch ultra2 meter, onetouch ultramini, and ozempic. Emma Min reports the following she reports that she developed cellulitis of her right arm from her pod. She was seen at Urgent Care she was treated with a round of Abx and asked to follow with PCP. She was seen in follow up with PCP a week later and then placed on doxycycline. She is not able to show me this today, she reports that the swelling has gone and the redness and scaliness is now gone. Her BG were elevated as a result of the infection. She was getting kicked out of automated mode. If she is not sure of her carbs she usually just enters 8 units for her bolus, other times she counts the carbs. She sometimes will give only 4 units if her meal is small. She did not tolerate Metformin d/t GI symptoms. She reads her pump settings to me today bolus calculator Target glucose 110, correct above I:Carb 1:6 ICF 35 IOB 4 Max bolus: 12 units DM MEds: humalog via pump ozmepic 2mg weekly Lantus (for pump failure) HPI ROS The patient has experienced the following acute complications: hypoglycemia - mild and hyperglycemia - moderate, surrounding infection recently. Eating habits: adherent to diabetic diet. Patient's weight has been stable. Wt Readings from Last 3 Encounters: 10/16/21 77.2 kg (170 lb 3.2 oz) 05/30/19 72.6 kg (160 lb) 09/12/16 87.2 kg (192 lb 4.8 oz) Patient is UTD with eye inspector health care facilities for annual dilated eye exam: Yes PHYSICAL EXAMINATION: Vitals: There were no vitals taken for this visit. BMI: There is no height or weight on file to calculate BMI. Physical Exam General: alert oriented x4, not in acute distress Breathing: unlabored on room air, normal effort, BUN PANNER :no gross neurological deficits identified Psych: Normal mood and affect, speech normal, judgment and insight normal LABS: Lab Results Component Value Date HGBA1C 6.7 (H) 06/20/2022 Lab Results Component Value Date CHOL 234 08/10/2015 HDL 49 08/10/2015 LDLBASE 143 08/10/2015 TRIG 209 08/10/2015 CHOLHDL 4.8 08/10/2015 Lab Results Component Value Date BUN 12 10/17/2015 CREATININE 0.58 10/17/2015 NA 139 10/17/2015 K 4.2 10/17/2015 Lab Results Component Value Date ALT 19 08/10/2015 Lab Results Component Value Date LABALBU 4.1 08/10/2015 UCREA 104.2 08/10/2015 MICRALBCRRAT 7.7 08/10/2015 ASSESSMENT/PLAN: Type 2 diabetes mellitus with hyperglycemia, with long-term current use of insulin ([facility]) ([facility]) A1c 6.7 Fantastic progress Will adjust I:Carb to 1:8 this was strengthened when she was having high BG with recent infections Recommended over patch for her dexcom sensors/pods to help with adhesion and skin reactions Will have pt work with CDE to improve her carb counting and pump knowledge No orders of the defined types were placed in this encounter. Recommend aspirin daily if indicated Recommended: none. Lifestyle modifications: exercise >150 min/wk and recommend compliance with a diabetic diet Goals and plan to achieve these discussed Systolic blood pressure less than 130. And diastolic blood pressure less than 80. Hemoglobin A1C less than 7%. LDL cholesterol: 70 to 99. HDL - males >40 and females > 50 mgm/dl Trig less than 180 - fasting Return in six months. I spent a total of 40 minutes on the date of this encounter meeting with the patient and reviewing documentation/coordinating care as described in the above note. No procedures were performed at the time of the visit. Gely Walker NP 07/05/2022 16:22 documented in this encounter Miscellaneous Notes * Assessment & Plan Note - Gely Walker NP - 07/05/2022 1623 EDT Associated Problem(s): Type 2 diabetes mellitus with hyperglycemia, with long- term current use of insulin ([facility]) ([facility]) A1c 6.7 Fantastic progress Will adjust I:Carb to 1:8 this was strengthened when she was having high BG with recent infections Recommended over patch for her dexcom sensors/pods to help with adhesion and skin reactions Will have pt work with CDE to improve her carb counting and pump knowledge documented in this encounter Plan of Treatment Not on file documented as of this encounter Visit Diagnoses Diagnosis Type 2 diabetes mellitus with hyperglycemia, with long-term current use of insulin ([facility])- Primary documented in this encounter Discontinued Medications Medication Sig Discontinue Reason Start Date End Da te gabapentin (NEURONTIN) 100 mg capsule Take 100 mg by mouth 3 times daily. Patient Stopped Taking 08/13/2021 07/05/2022 documented as of this encounter Care Teams Deputy Chief Executive Relationship Specialty Start Date End Date Che Sharpe PA [address] [place] [address] [place] [address] PCP - General 10/16/21 Terry Hall MD [address] [place] [id number] 07/02/14 documented as of this encounter
--- OUTSIDE RECORDS SUMMARY | 2024-01-03 01:08 | XMS_ITS | Encounter Summary ---
Author Organization [facility] Address [address] [place] [address] Care Team Providers Care International Account Executive Name Role Phone Terry Hall MD Unavailable Che Sharpe Primary Care Provider + Reason for Visit * Reason Comments Diabetes * Consult (Routine/Next Available) - Specialty Report Received Specialty Diagnoses / Procedures Referred By Luana landon Referred To Contact Endocrinology Diagnoses Type 2 diabetes mellitus with hyperglycemia, with long-term current use of insulin ([facility]) Mikayla Barajas, [address] [address] [facility] Endocrinology [address] [place] [id number] Referral ID Status Reason Start Date Expiration Date Visits Requested Visits Authorized [id number] Specialty Report Received Specialty Services Required 07/05/2022 1 1 Encounter Details Date Type Department Care Team (Late st Contact Info) Description 08/03/2022 16:00 EDT Nutrition [facility] Endocrinology - [address] [address] Riddhi Charles, RD [address] [place] [address] Social History Tobacco Use Types Packs/Day Years [...] as of this encounter Progress Notes * Riddhi Charles RD - 08/03/2022 1600 EDT Logged into televideo visit at 3:59pm Logged out of video at 4:20pm documented in this encounter Plan of Treatment Not on file documented as of this encounter Visit Diagnoses Not on filedocumented in this encounter Care Teams International Account Executive Relationship Specialty Start Date End Date Che Sharpe PA [address] [place] [address] [place] [phone] PCP - General 10/16/21 Terry Hall MD [address] [place] [id number] 07/02/14 documented as of this encounter
--- OUTSIDE RECORDS SUMMARY | 2024-01-03 01:08 | XMS_ITS | Encounter Summary ---
Author Organization [facility] [place] [address] Care Team Providers Care Staff Electrical Engineer Name Role Phone Leeanna Cohn MD Primary Care Provider Reason for Visit * Reason Comments Dizziness * Consultation (Routine) - Closed Specialty Diagnoses / Procedures Referred By Contac t Referred To Contact Neurology Diagnoses Vertigo Roys Tavarez, GO [facility] GENERAL [place] [address] [facility] Neurology [address] [place] [address] Referral ID Status Reason Start Date Expiration Date V isits Requested Visits Authorized [id number] Closed Specialty Service Requested 11/15/2016 11/15/2017 1 1 Encounter Details Date Type Department Care Team (Late st Contact Info) Description 11/29/2016 1:00 PM EDT [place] [address] Alex Brand MD [facility] [place] [address] Robibn Costa MD [facility] [place] [address] Syncope, unspecified syncope type; Vertigo Social History Tobacco Use Types Packs/Day [...] Sign Reading Time Taken Comments Blood Pressure 122/76 11/29/2016 12:51 PM EDT Pulse 95 11/29/2016 12:51 PM EDT Temperature - - Respiratory Rate - - Oxygen Saturation - - Inhaled Oxygen Concentration - - Weight 87.1 kg (192 lb) 11/29/2016 12:51 PM EDT Height 162.6 cm (5' 4) 11/29/2016 12:51 PM EDT reported Body Mass Index 32.96 11/29/2016 12:51 PM EDT documented in this encounter Patient Instructions * Patient Instructions* Robbin Costa MD - 11/29/2016 1:00 PM EDT You were seen in neurology clinic for syncope and vertigo. The lightheadedness (presyncope) and fainting (syncope) are likely due to insufficient oxygen/nutrients to your brain, probably due to a combination of things, including low blood pressure and low blood sugar. For this, we recommend: -increasing your salt intake and water intake -wear compression stockings -if you feel the sensation coming on, lie down and cross your legs/raise your legs to increase blood flow to your brain -have a snack if your blood sugar is low For your vertigo, you may continue using meclizine and doing the Jessica maneuver if you feel that they help. The vertigo should subside on its own. Return as needed documented in this encounter Progress Notes * Robbin Costa MD - 11/29/2016 1:00 PM EDT Neurology Outpatient Clinic - Initial Encounter Patient name: Emma Min Date of : 1980 PCP: Rosy Tavarez APRN Clinic Attending: Dr. Alex Brand CC: I have a history of passing out HPI: Emma Min is a 36 y.o. R-handed F with PMH of migraine, GERD, DM-2, anxiety, and depression,who presents as a referral from Rosy Tavarez APRN for syncope and vertigo. She has been having syncopal episodes since age 15. They are occurring about once per month. Sometimes after standing up, everything starts spinning and she passes out. Other times just when she is walking she feels lightheaded. Once while sitting on a bench for 20 minutes she had the sudden sensation of lightheadedness and nearly fainted. Sometimes these episodes are associated with hypoglycemia, but not always. Just prior to fainting, her vision will become pixelated, has tinnitus, she getstachycardic, short of breath, and then her vision goes black, and she will feel hot and then faint.She has had convulsive syncope multiple times (lasting less than one minute). No post-ictal confusion after these syncopal events, but can feel nauseated and fatigued. No associated headache. None ofthese events occur out of sleep. She reports a history of having low blood pressure at baseline. She tries to stay well-hydrated. Her blood sugars can range widely, she reports, ranging from the 50s to 200-300s. She was seen at [facility] in 2004 and 2006 for syncope. Her events were thought to be anxiety/panic attacks, though patient denies feeling anxious prior to these events. EEG, EKG, TTE, and Holter were recommended, but were never completed. For the last 1.5 months she has been experiencing positional vertigo, brought on by turning her head up and towards the right, or far to the right, or up and towards the left. Alleviated by moving her head back to midline. She was seen by her PCP for this and was given meclizine and instructions for the Jessica maneuver. She takes meclizine twice a day and does the Jessica maneuver exercises about 10minutes after taking medication. Meclizine is not preventing vertigo during the day, only reducing the vertigo she experiences while performing her Jessica exercises. She gets daily headaches that can be brought on by bending down and standing up. They are dull in nature, can be left temporal or right temporal or frontal, only last a few minutes. Associated nausea, but no associated vision changes or autonomic symptoms. Denies personal history of cardiopulmonary diseases. No numbness, weakness, tingling, bowel/bladderdysfunction. Her daughter has a seizure disorder, as one of her mother's cousins. Past Medical & Surgical History: Patient Active Problem List Diagnosis ??? Gastroesophageal reflux disease without esophagitis ??? Uncontrolled diabetes mellitus type 2 without complications Past Medical History: Diagnosis Date ??? Allergic state ??? Anxiety ??? Depression History reviewed. No pertinent surgical history. Medications: Current Outpatient Prescriptions on File Prior to Visit Medication Sig Dispense Refill ??? ranitidine (ZANTAC) 150 mg Tablet Take [...] daily as needed. 90 tablet 0 ??? colesevelam (WELCHOL) 625 mg Tablet Take 1,250 mg by mouth 2 times daily (with meals). ??? glucose (DEX4 GLUCOSE) 4 gram Tablet, Chewable Take 4 tablets by mouth as needed for Low blood sugar. 90 tablet 11 ??? FREESTYLE INSULINX Strip 1 each by Other route 4 times daily. Use as instructed 400 each 3 No current facility-administered medications on file prior to visit. Allergy: Allergies Allergen Reactions ??? Latex ??? Other [Unclassified Drug] Anaphylaxis Any type of anti-depressant. ??? Lactose Family History: Family History Problem Relation Age of Onset ??? Hyperlipidemia Mother ??? Hyperlipidemia Father ??? Depression Father ??? Bipolar Disorder Sister ??? Diabetes Maternal Aunt ??? 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 No bony deformity Neuro Exam: MS: AAOx4, clear language, no dysarthria, follows commands CN: PERRL, EOMI, visual interiano full Facial sensation intact, no facial asymmetry Hearing intact to finger rub Palate elevates symmetrically, tongue protrudes midline SCM and trap strength intact Motor: Normal bulk and tone. No pronator drift. Strength 5/5 throughout Sensation: Intact to light touch and temperature. Mildly reduced vibration at left great toe. Normal Romberg Reflexes: DTRs 2+ R, 2+ L Biceps 2+ R, 2+ L Brachioradialis 1-2+ R, 1-2+ L Triceps 2+ R, 2+ L Patellar 2+ R, 2+ L Achilles tendon Babinski - R down, L down Coordination: Finger to nose intact, no dysmetria Rapid alternating movements & finger tapping smooth and symmetric No tremor Gait: Stable, steady Special maneuvers: -Ronny-Hallpike - induced lightheadedness with head turned to the right, but no vertigo and no nystagmus (negative test) -negative head impulse test bilaterally -vertigo induced by turning head up to the left - no nystagmus. Resolved symptoms with head in neutral position after several seconds -lightheaded upon sitting up from supine position Labs: No results found for this or any previous visit (from the past 24 hour(s)). Diagnostic Tests and Imaging: No MRI, CT, EEG, EKG, TTE Assessment / Plan: Emma Min is a 36 y.o. R-handed F with PMH of migraine, GERD, DM-2, anxiety, and depression,who presents for syncope and vertigo. Exam is notable for mildly reduced vibratory sense in the distal left lower extremity (?diabetic neuropathy) and symptomatic orthostatic hypotension. Regarding her syncope, it is most likely due to dysautonomia, a common cause of syncope in young females. She is at higher risk of becoming symptomatic due to her blood pressure being on the lower end at baseline, and due to her highly variable glycemia. The seizures that occur after the syncopal episodes are most likely convulsive syncope and not epileptic. EEG is not felt to be necessary. A tilt table test would confirm the diagnosis, but the history is suggestive enough not to warrant further testing, including cardiac work-up. To reduce the likelihood of these syncopal events from occurring, we recommend conservative measures, such as increasing salt and fluid intake and wearing compressive stockings. Regarding her vertigo, it is relatively new and provoked by turning her head to either side and relieved by returning her head to neutral position. There is no associated nystagmus. Provocative maneuvers do not suggest vestibular dysfunction as the etiology of her vertigo, and diagnoses such as Meniere's disease and BPPV are unlikely. Her symptoms are not consistent with a central vertigo. Her young age makes vertebrobasilar insufficiency unlikely, as well. It will most likely resolve on its own, and patient may continue to use meclizine and perform Jessica maneuvers if she finds them helpful. Patient seen with and case discussed with Dr. Brand. Please see his addendum for any additional comments. Recommendations: #syncope -increase salt and fluid intake -compression stockings -patient advised to lie down and cross or elevate her legs and clench fists when she becomes symptomatic #Vertigo -continue meclizine and Jessica maneuvers if they are providing sufficient benefit -should resolve spontaneously Return as needed. Robbin Costa MD Neurology Resident, PGY-4 Personal Pager [phone] I saw and evaluated the patient with Dr. Costa. I have reviewed the resident's history during the visit and agree with the details as written. My neurological exam confirms the residents findings. Theassessment and plan were formulated in discussion with me at the time of the visit and I agree withthem as documented. Alex Brand MD 11/30/2016 documented in this encounter Plan of Treatment Upcoming Encounters Date Type Department Care Team (Late st Contact Info) Description 12/03/2024 1:00 PM EDT Appointment H[place] [address] 12/03/2024 2:00 PM EDT Office Visit H[place]ology [place] [address] Pelon Wisdom MD [facility] DR HEMATOLOGY [place] [address] Oksana Payne APRN [facility] DR HEMATOLOGY [place] [address] Scheduled Referrals Name Type Priority Associated Diagnoses Orde r Schedule Referral to Neurology Outpatient Referral Routine Vertigo Ordered: 11/15/2016 documented as of this encounter Visit Diagnoses Diagnosis Syncope, unspecified syncope type Vertigo Dizziness and giddiness documented in this encounter Care Teams Staff Electrical Engineer Relationship Specialty Start Date End Date Leeanna Cohn MD [address] [place] [address] PCP - General 03/14/10 02/13/17 documented as of this encounter
--- OUTSIDE RECORDS SUMMARY | 2024-01-03 01:08 | XMS_ITS | Encounter Summary ---
Author Organization [facility] [place] [address] Care Team Providers Care Aggregate Conveyor Operator Name Role Phone Leeanna Cohn MD Primary Care Provider [phone] Reason for Visit * Reason Onset Date Comments Medication Refill 11/07/2016 Encounter Details Date Type Department Care Team (Late st Contact Info) Description 11/07/2016 Refill Endocrinology at [place] [phone] Clara Nguyen MD [facility] [place] [address] Social History Tobacco Use Types Packs/Day Years Used Date Smoking Tobacco: Every Day Cigarettes Sex and Gender Information Value Date Recorded Sex Assigned at Not on file Gender Identity Not on file Sexual Orientation Not on file documented as of this encounter Plan of Treatment Upcoming Encounters Date Type Department Care Team ([facility] Contact Info) Description 12/03/2024 1:00 PM EDT Appointment Hematology and Oncology at [place] [phone] 12/03/2024 2:00 PM EDT Office Visit Hematology and Oncology at [place] [phone] Pelon Wisdom MD [facility] DR HEMATOLOGY [place] [address] Oksana Payen APRN [facility] DR HEMATOLOGY [place] [address] documented as of this encounter Visit Diagnoses Not on filedocumented in this encounter Care Teams Aggregate Conveyor Operator Relationship Specialty Start Date End Date Leeanna Cohn MD [address] [place] [address] PCP - General 03/14/10 02/13/17 documented as of this encounter
--- OUTSIDE RECORDS SUMMARY | 2024-01-03 01:08 | XMS_ITS | Encounter Summary ---
Author Organization [facility] Address [address] [place] [address] Care Team Providers Care Woodworking Shop Laborer Name Role Phone Terry Hall MD Unavailable Che Sharpe Primary Care Provider + Reason for Visit * Reason Comments Medications Refill Encounter Details Date Type Department Care Team (Late st Contact Info) Description 10/02/2023 Refill [facility] Endocrinology - [facility] [address] [place] [address] Gely Walker, CORPORATE VP ADVERTISING & ONLINE [address] [facility] [address] [place] [address] Medications Refill Social History Tobacco [...] Dispensed Refills Start Date End Da te DEXCOM G6 TRANSMITTER deviceIndications:Type 2 diabetes mellitus with hyperglycemia, with long-term current use of insulin ([facility]) CHANGE DIRECTED EVERY 3 MONTHS 1 Each 3 10/02/2023 documented in this encounter Plan of Treatment Not on file documented as of this encounter Visit Diagnoses Diagnosis Type 2 diabetes mellitus with hyperglycemia, with long-term current use of insulin ([facility])- Primary documented in this encounter Discontinued Medications Medication Sig Discontinue Reason Start Date End Da te Blood-Glucose Transmitter (DEXCOM G6 TRANSMITTER) deviceIndications:Type 2 diabetes mellitus with hyperglycemia, with long-term current use of insulin ([facility]) 1 Each by misc (non-drug; combo route) route every 3 months. 09/09/2023 10/02/2023 documented as of this encounter Care Teams Woodworking Shop Laborer Relationship Specialty Start Date End Date Che Sharpe PA [address] [place] [address] [place] [address] PCP - General 10/16/21 Terry Hall MD [address] [place] [address] 07/02/14 documented as of this encounter
--- OUTSIDE RECORDS SUMMARY | 2024-01-03 01:08 | XMS_ITS | Encounter Summary ---
Author Organization [facility] [place] [place] [address] Care Team Providers Care Piece Jobber Name Role Phone Leeanna Cohn MD Primary Care Provider [phone] Encounter Details Date Type Department Care Team ([facility] Contact Info) Description 12/07/2016 Orders [place] [phone] Rosy Tavarez APRN [facility] [place] [address] Hyperlipidemia, unspecified hyperlipidemia type Social History Tobacco Use Types Packs/Day [...] PM EDT Appointment Hematology [place] [phone] 12/03/2024 2:00 PM EDT Office Visit Hematology [place] [address] Pelon Wisdom MD [facility] DR HEMATOLOGY [place] [address] Oksana Payne APRN [facility] DR HEMATOLOGY [place] [address] documented as of this encounter Visit Diagnoses Diagnosis Hyperlipidemia, unspecified hyperlipidemia type documented in this encounter Care Teams Piece Jobber Relationship Specialty Start Date End Date Leeanna Cohn MD [address] [place] [address] PCP - General 03/14/10 02/13/17 documented as of this encounter
--- OUTSIDE RECORDS SUMMARY | 2024-01-03 01:08 | XMS_ITS | Encounter Summary ---
Author Organization [facility] [place] [address] Care Team Providers Care Malt Loader Name Role Phone Leeanna oChn MD Primary Care Provider [phone] Reason for Referral * Consultation (Routine) - Closed Specialty Diagnoses / Procedures Referred By Contlaura t Referred To Contact Gastroenterology Diagnoses Acute superficial gastritis without hemorrhage Rosy Tavarez APRN [facility] [place] [address] [facility] [address] [place] [address] Referral ID Status Reason Start Date Expiration Date V isits Requested Visits Authorized [id number] Closed Specialty Service Requested 11/20/2016 11/20/2017 1 1 Reason for Visit * Reason Comments GI Problem abdominal pain for m any years Encounter Details Date Type Department Care Team ([facility] st Contact Info) Description 11/20/2016 5:00 PM EDT Office [place] [phone] Rosy Tavarez APRN [facility] [place] [address] Acute superficial gastritis without hemorrhage Social History Tobacco Use Types Packs/Day Years Used Date Smoking Tobacco: Every Day Cigarettes Smokeless Tobacco: Current Comments:per day Alcohol Use Standard Drinks/Week Comments No 0 (1 standard drink = 0.6 oz pur e alcohol) Sex and Gender Information Value Date Recorded Sex Assigned at Not on file Gender Identity Not on file Sexual Orientation Not on file documented as of this encounter Last Filed Vital Signs Vital Sign Reading Time Taken Comments Blood Pressure 104/67 11/20/2016 5:00 PM EDT Pulse 98 11/20/2016 5:00 PM EDT Temperature 36.8 ??C (98.2 ??F) 11/20/2016 5:00 PM ED T Respiratory Rate 17 11/20/2016 5:00 PM EDT Oxygen Saturation 96% 11/20/2016 5:00 PM EDT Inhaled Oxygen Concentration - - Weight 86.2 kg (190 lb) 11/20/2016 5:00 PM EDT Height 160 cm (5' 3) 11/20/2016 5:00 PM EDT Body Mass Index 33.66 11/20/2016 5:00 PM EDT documented in this encounter Patient Instructions * Patient Instructions* Rosy Tavarez APRN - 11/20/2016 5:18 PM EDT Images from the original note were not included. [facility] Gastritis: Care Instructions Your Care Instructions Gastritis is a sore and upset stomach. It happens when something irritates the stomach lining. Manythings can cause it. These include an infection such as the flu or something you ate or drank. Medicines or a sore on the lining of the stomach (ulcer) also can cause it. Your belly may bloat and ache. You may belch, vomit, and feel sick to your stomach. You should be able to relieve the problem by taking medicine. And it may help to change your diet. If gastritis lasts, your doctor may prescribe medicine. Follow-up care is a zamora part of your treatment and safety. Be sure to make and go to all appointments, and call your doctor if you are having problems. It's also a good idea to know your test resultsand keep a list of the medicines you take. How can you care for yourself at home? ?? If your doctor prescribed antibiotics, take them as directed. Do not stop taking them just because you feel better. You need to take the full course of antibiotics. ?? Be safe with medicines. If your doctor prescribed medicine to decrease stomach acid, take it as directed. Call your doctor if you think you are having a problem with your medicine. ?? Do not take any other medicine, including hdct-amr-mqxkcoi pain relievers, without talking to your doctor first. ?? If your doctor recommends dmrc-tfv-yusyump medicine to reduce stomach acid, such as Pepcid AC, Prilosec, Tagamet HB, or Zantac 75, follow the directions on the label. ?? Drink plenty of fluids (enough so that your urine is light yellow or clear like water) to prevent dehydration. Choose water and other caffeine-free clear liquids. If you have kidney, heart, or liver disease and have to limit fluids, talk with your doctor before you increase the amount of fluids you drink. ?? Limit how much alcohol you drink. ?? Avoid coffee, tea, cola drinks, chocolate, and other foods with caffeine. They increase stomach acid. When should you call for help? Call 911 anytime you think you may need emergency care. For example, call if: ?? You vomit blood or what looks like coffee grounds. ?? You pass maroon or very bloody stools. Call your doctor now or seek immediate medical care if: ?? You start breathing fast and have not produced urine in the last 8 hours. ?? You cannot keep fluids down. Watch closely for changes in your health, and be sure to contact your doctor if: ?? You do not get better as expected. Where can you learn more? Visit our health information library at [email or web address]! Technologieso. You can also view health information on [email or web address], your personal patient account. Log in or sign uptoday. Enter Z536 in the search box to learn more about Gastritis: Care Instructions. Current as of: November 29, 2015 Content Version: 11.3 ?? [id number] [employer]. Care instructions adapted under license by [facility]. If you have questions about a medical condition or this instruction, always ask your healthcare professional. [employer] disclaims any warranty or liability for your use of this information. documented in this encounter Progress Notes * Rosy Tavarez APRN - 11/20/2016 5:00 PM EDT Subjective: Patient ID: Emma Min is a 36 y.o. female. HPI Emma is here with epigastric pain last night that lasted until 5 am this morning. She has had upper stomach issues in the past with two separate endoscopy's, known gastritis and duodenitis. She has not had this in a while and had had a salad earlier. She thinks that she is taking the Ranitidine but she does not think twice a day. Previously the Protonix did not work for her. No blood in her stool, no vomiting but some nausea with the pain, no change in BM and no pain with BM. Review of Systems Constitutional: Negative for activity change, appetite change, chills, fatigue and fever. Gastrointestinal: Positive for abdominal distention, abdominal pain and nausea. Negative for blood in stool, constipation, diarrhea and vomiting. Objective: Physical Exam Constitutional: She appears well-developed and well-nourished. Abdominal: Soft. Bowel sounds are normal. She exhibits distension (diffuse with worse at epigastricarea). She exhibits no mass. There is tenderness. There is no rebound and no guarding. Skin: Skin is warm and dry. Vitals reviewed. Assessment and Plan: Emma was seen today for gi problem. Do food diary to help with food triggers, make sure Ranitidine is twice a day. See encounter summary for patient instructions. Diagnoses and all orders for this visit: Acute superficial gastritis without hemorrhage - Referral to Gastroenterology - ranitidine (ZANTAC) 150 mg Tablet; Take 1 tablet by mouth 2 times daily. documented in this encounter Plan of Treatment Upcoming Encounters Date Type Department Care Team (Late st Contact Info) Description 12/03/2024 1:00 PM EDT Appointment [place] [address] 12/03/2024 2:00 PM EDT Office Visit [place]ology [place] [address] Pelon Wisdom MD [facility] DR HEMATOLOGY [place] [address] Oksana Payne APRN [facility] HEMATOLOGY [place] [address] Scheduled Referrals Name Type Priority Associated Diagnoses Order Schedule Referral to Gastroenterology Outpatient Referral Routine Acute superficial gastritis without hemorrhage Ordered: 11/20/2016 documented as of this encounter Visit Diagnoses Diagnosis Acute superficial gastritis without hemorrhage documented in this encounter Care Teams Malt Loader Relationship Specialty Start Date End Date Leeanna Cohn MD [address] [place] [address] PCP - General 03/14/10 02/13/17 documented as of this encounter
--- OUTSIDE RECORDS SUMMARY | 2024-01-03 01:08 | XMS_ITS | Encounter Summary ---
Author Organization [facility] [place] [place] [address] Care Team Providers Care Personal Injury Paralegal Name Role Phone Leeanna Cohn MD Primary Care Provider [phone] Encounter Details Date Type Department Care Team (Late st Contact Info) Description 11/13/2016 Telephone [place] [phone] Ольга Carter LPN Social History Tobacco Use Types Packs/Day Years Used Date Smoking Tobacco: Every Day Cigarettes Sex and Gender Information Value Date Recorded Sex Assigned at Not on file Gender Identity Not on file Sexual Orientation Not on file documented as of this encounter Miscellaneous Notes * Telephone Encounter - Clara Nguyen MD - 11/15/2016 10:22 AM EDT Called patient again: She has been experiencing extreme diarrhea even with Metformin XR. Will have her discontinue and restart GLP-1 agonist. She was previously on Bydureon but states thatthe dosage was too much for her. Explained that bydureon only comes in one dose. So we will switch her to Victoza and start her at the lowest dose of 0.6 mg SC daily. Patient has pen needles and doesnot need refills. * Telephone Encounter - Ольга Carter LPN - 11/15/2016 8:46 AM EDT R/c to patient who is concerned that she has not been able to speak with Dr Nguyen has stated that if she does not hear from her by end of today she is going to call and ask for another doctor. * Telephone Encounter - Clara Nguyen MD - 11/14/2016 4:27 PM EDT Attempted return patient's call, but lucia to VM - left her a message that I have called back. * Telephone Encounter - Ольга Carter LPN - 11/14/2016 2:57 PM EDT R/c to patient. I am allergic to lactose. Read the metformin contains lactose.BG's going high again 223 last night @ 10PM Per patient she has not taken any metformin since yesterday and is off all other diabetes meds since 11/07/16. Day before yesterday I almost passed out. BG was in low 200's. Continue to have episodes where I feel dizzy * Telephone Encounter - Ольга Carter LPN - 11/13/2016 1:52 PM EDT R/c to patient. Started metformin XR 500mg this AM. Having cramping and very urgent diarrhea same as when taking plain metformin documented in this encounter Plan of Treatment Upcoming Encounters Date Type Department Care Team (Late st Contact Info) Description 12/03/2024 1:00 PM EDT Appointment Hematology [place] [address] 12/03/2024 2:00 PM EDT Office Visit Hematology [place] [phone] Pelon Wisdom MD [facility] [address] [place] [address] Oksana Payne APRN [facility] [address] [place] [address] documented as of this encounter Visit Diagnoses Not on filedocumented in this encounter Care Teams Personal Injury Paralegal Relationship Specialty Start Date End Date Leeanna Cohn MD [address] [place] [address] PCP - General 03/14/10 02/13/17 documented as of this encounter
--- OUTSIDE RECORDS SUMMARY | 2024-01-03 01:08 | XMS_ITS | Encounter Summary ---
Author Organization [facility] [place] [address] Care Team Providers Care Freight Handler Name Role Phone Leeanna Cohn MD Primary Care Provider [phone] Reason for Visit * Reason Onset Date Comments Medication Refill 12/28/2016 Encounter Details Date Type Department Care Team (Late Contact Info) Description 12/28/2016 Ref[place] [phone] Clara Nguyen MD [facility] [address] [place] [address] Social History Tobacco Use Types Packs/Day Years [...] PM EDT Appointment Hematology [place] [phone] 12/03/2024 2:00 PM EDT Office Visit [place]ematology [place] [address] Pelon Wisdom MD [facility] [address] HEMATOLOGY [place] [address] Oksana Payne APRN [facility] [address] HEMATOLOGY [place] [address] documented as of this encounter Visit Diagnoses Not on filedocumented in this encounter Care Teams Freight Handler Relationship Specialty Start Date End Date Leeanna Cohn MD [address] [place] [address] PCP - General 03/14/10 02/13/17 documented as of this encounter
--- OUTSIDE RECORDS SUMMARY | 2024-01-03 01:08 | XMS_ITS | Encounter Summary ---
Author Organization [facility] [place] [address] Care Team Providers Care Sealer Sander Name Role Phone Leeanna Cohn MD Primary Care Provider [phone] Encounter Details Date Type Department Care Team (Late Contact Info) Description 11/22/2016 Telephone [place] [phone] Mariaa De La Rosa, RN Social History [...] * Telephone Encounter - Mariaa De La Rosa, RN - 11/22/2016 8:58 AM EDT Received call from Carlos who is checking on status of PA for victoza for patient. Chart reviewed PA done and approved for victoza on 11/16/16. Spoke with medical secretary Manisha who does these. She is going to follow up with pharmacy and insurance. documented in this encounter Plan of Treatment Upcoming Encounters Date Type Department Care Team (Late Contact Info) Description 12/03/2024 1:00 PM EDT Appointment Hematology [place] [phone] 12/03/2024 2:00 PM EDT Office Visit Hematology [place] [address] Pelon Wisdom MD [facility] [address] [place] [address] Oksana Payne APRN [facility] [address] [place] [address] documented as of this encounter Visit Diagnoses Not on filedocumented in this encounter Care Teams Sealer Sander Relationship Specialty Start Date End Date Leeanna Cohn MD [address] [place] [address] PCP - General 03/14/10 02/13/17 documented as of this encounter
--- OUTSIDE RECORDS SUMMARY | 2024-01-03 01:08 | XMS_ITS | Encounter Summary ---
Author Organization [facility] Address [address] [place] [address] Care Team Providers Care Dinkey Motor Operator Name Role Phone Terry Hall MD Unavailable Che Sharpe Primary Care Provider + Reason for Visit * Reason Comments Medications Refill Encounter Details Date Type Department Care Team (Late st Contact Info) Description 09/09/2023 Refill [facility] Endocrinology - [facility] [address] [place] [address] Gely Walker, FORENSIC EXAMINER [address] [facility] [address] [place] [address] Medications Refill Social History Tobacco [...] Start Date End Da te DEXCOM G6 SENSOR deviceIndications:Type 2 diabetes mellitus with hyperglycemia, with long-term current use of insulin ([facility]) CHANGE EVERY 10 DAYS 3 Each 11 09/09/2023 Blood-Glucose Transmitter (DEXCOM G6 TRANSMITTER) deviceIndications:Type 2 diabetes mellitus with hyperglycemia, with long-term current use of insulin ([facility]) 1 Each by misc (non-drug; combo route) route every 3 months. 1 Each 3 09/09/2023 10/02/2023 documented in this encounter Miscellaneous Notes * Telephone Encounter - Margy Hardin - 09/09/2023 0925 EDT Endocrinology Incoming Call Reason for call: DME Medication Issue/PA Request Medication(s) Requested: Blood-Glucose Sensor (DEXCOM G6 SENSOR) device Pharmacy: [id number] - [place], [place] - [address] [place] [address] Rd [phone] Will the patient be out of medication in the next 3 days? Yes - Send HIGH priority to [facility] Endocrinology Nurse [place] Next Appointment: Visit date not found Last Office Visit: 10/16/2021 Breanna Flores MD Last Telehealth Encounter: 06/26/2023 Gely Walker NP If patient was seen more than 1 year ago and doesn???t have an upcoming appointment scheduled, please schedule an appointment for the patient prior to routing the encounter. documented in this encounter Plan of Treatment Not on file documented as of this encounter Visit Diagnoses Diagnosis Type 2 diabetes mellitus with hyperglycemia, with long-term current use of insulin ([facility]) Type 1 diabetes mellitus with hyperglycemia ([facility]) Type I (juvenile type) diabetes mellitus without mention of complication, not stated as uncontrolled documented in this encounter Discontinued Medications Medication Sig Discontinue Reason Start Date End Da te Blood-Glucose Sensor (DEXCOM G6 SENSOR) deviceIndications:Type 2 diabetes mellitus with hyperglycemia, with long-term current use of insulin ([facility]),Type 1 diabetes mellitus with hyperglycemia ([facility]) 1 Each by misc (non-drug; combo route) route every 10 days. 09/18/2022 09/09/2023 Blood-Glucose Transmitter (DEXCOM G6 TRANSMITTER) deviceIndications:Type 2 diabetes mellitus with hyperglycemia, with long-term current use of insulin ([facility]),Type 1 diabetes mellitus with hyperglycemia ([facility]) 1 Each by misc (non-drug; combo route) route every 3 months. Reorder 11/06/2022 09/09/2023 documented as of this encounter Care Teams Dinkey Motor Operator Relationship Specialty Start Date End Date Che Sharpe PA [address] [place] [phone] PCP - General 10/16/21 Terry Hall MD [address] [place] [address] 07/02/14 documented as of this encounter
--- OUTSIDE RECORDS SUMMARY | 2024-01-03 01:08 | XMS_ITS | Encounter Summary ---
Author Organization [facility] Address [address] [place] [address] Care Team Providers Care Nuclear Power Reactor Operator Name Role Phone Terry Hall MD Unavailable Che Sharpe Primary Care Provider + Reason for Referral * Laboratory Services (Routine/Next Available) - New Request Specialty Diagnoses / Procedures Referred By Luana landon Referred To Contact Diagnoses Type 2 diabetes mellitus with hyperglycemia, with long-term current use of insulin ([facility]) Procedures HEMOGLOBIN A1C Gely Walker NP [address] [address] Referral ID Status Reason Start Date Expiration Date V isits Requested Visits Authorized [id number] New Request 07/01/2023 1 1 Reason for Visit * Reason Comments Diabetes Encounter Details Date Type Department Care Team (Latest Contact Info) Description 06/26/2023 16:30 EST Telemedicine [facility] Endocrinology - [address] [address] Gely Walker NP 62 [facility] [address] [place] [address] Type 2 diabetes mellitus with hyperglycemia, with long-term current use of insulin ([facility] ([facility]) (Primary Dx) Social History Tobacco Use Types [...] of this encounter Progress Notes * Gely Walker, RESPIRATORY THERAPIST - 06/26/2023 1630 EST The concept of ???Telemedicine?? has been described [...] copays, deductible or coinsurance for this service. TELEMEDICINE VIDEO VISIT Today's visit was provided through telemedicine video conferencing: I have reviewed the appropriateness of using video technology with the patient with regards to today's visit. The location of the patient : Home (where patient lives) Patient location state: Visit Location State: [place] The location of the provider: Home Office Provider location state: Visit Location State: [place] The following people and their roles were present for today's visit: Appointment Provider: Gely Walker NP Laurie M Davignon, NP [facility] Diabetes Follow-Up Note Chief Complaint Patient presents with Diabetes HPI: Emma Min has had diabetes [...] in the past but since starting pump A1c improved Patient has a history of being compliant most of the time with medical therapy. Glucose monitoring: dexcom . Home Blood Glucoses Running: dexcom . 59% in target, without significant lows or [...] g6 pods (gen 5), insulin syringe-needle u-100, insulin syringe-needle u-100, medroxyprogesterone, one touch delica, onetouch ultra2 meter,onetouch ultramini, and ozempic. Emma Min reports that she has some difficulty counting carbs, she feels overwhelmed doing this, but has made some improvement at breakfast and lunch with this. She met once with Riddhi and she reports that she had difficulty understanding her and never went back. Discussed Calorie Gucci ather last appt, and made some improvements with breakfast and lunch when less varibility in diet. She did not tolerate Metformin d/t GI symptoms. She uses omnipod 5 (gets from [employer] mail order but has to pick them up at [facility] in [place] and dexcom G6 ([facility] in [place]). She feels her BG are well controlled she admits that she leans heavily on the automated function in her pump and does not always bolus, feels overwhelmed at times by carb counting. She has nausea if her ozempic dose is even delayed by a couple of days She reads her pump settings to me today bolus calculator Target glucose 110, correct above I:Carb 1:8, uses I;carb ratio at b/l and usually only takes 4 units with supper if she remembers ICF 35 IOB 4 Max bolus: 12 units DM MEds: humalog via pump ozmepic 2mg weekly Lantus (for pump failure) Patient's CGM was downloaded and I reviewed the last 14 days worth of data for further diabetes medication management and titration. Download shows 62 % time in range, <1 % low, 0 % very low, 33% high and 4% very high. review of patterns showed high BG post supper, appear to be missed boluses that OP5 automated mode takes some time to correct, some days nearly completely in target HPI Review of Systems Constitutional: Positive for malaise/fatigue. Negative for fever. Eyes: Negative for blurred vision. Respiratory: Negative for cough, shortness of breath and wheezing. Cardiovascular: Negative for chest pain and leg swelling. Gastrointestinal: Positive for nausea. Negative for abdominal pain, constipation and diarrhea. Musculoskeletal: Positive for back pain. Neurological: Negative for tingling. The patient has experienced the following acute complications: hypoglycemia - mild and hyperglycemia - moderate, surrounding infection recently . Eating habits: adherent to diabetic diet. Patient's weight has been stable. Wt Readings from Last 3 Encounters: 10/16/21 77.2 kg (170 lb 3.2 oz) 05/30/19 72.6 kg (160 lb) 09/12/16 87.2 kg (192 lb 4.8 oz) Patient is UTD with eye animal care service worker for annual dilated eye exam: Yes PHYSICAL EXAMINATION: Vitals: There were no vitals taken for this visit. BMI: There is no height or weight on file to calculate BMI. Physical Exam General: alert oriented x4, not in acute distress Breathing: unlabored on room air, normal effort, WIRED MUSIC OPERATOR :no gross neurological deficits identified Psych: Normal [...] hyperglycemia, with long-term current use of insulin ([facility]) ([facility]) A1c 6.7 last year, due now, ordered Now on omnipod 5 and dexcom G6 No changes to her pump settings today. Her download reveals more variable bG in PM when she admits that she is less accurate in her carb counting, often just bolusing 4 units rather than entering carbs accurately. Discussed really trying to carb count and input carbs at supper, BG well controlled by doing this at breakfast and lunch, and less well controlled when she takes a standard manual bolus of a set number of units. She agrees to work on accuracy of carb counting at supper. Other Orders Placed This Visit Procedures Hemoglobin A1c Recommend aspirin daily if indicated Recommended: none. [...] six months. I spent a total of 35 minutes on the date of this encounter meeting with the patient and reviewing documentation/coordinating care as described in the above note. No procedures were performed at the time of the visit. Gely Walker NP 07/01/2023 14:58 documented in this encounter Miscellaneous Notes * Assessment & Plan Note - Gely Walker NP - 07/01/2023 3147 EDT Associated Problem(s): Type 2 diabetes mellitus with hyperglycemia, with long- term current use of insulin ([facility]) ([facility]) A1c 6.7 last year, due now, ordered Now on omnipod 5 and dexcom G6 No changes to her pump settings today. Her download reveals more variable bG in PM when she admits that she is less accurate in her carb counting, often just bolusing 4 units rather than entering carbs accurately. Discussed really trying to carb count and input carbs at supper, BG well controlled by doing this at breakfast and lunch, and less well controlled when she takes a standard manual bolus of a set number of units. She agrees to work on accuracy of carb counting at supper. documented in this encounter Plan of Treatment Scheduled Orders Name Type Priority Associated Diagnoses Orde r Schedule HEMOGLOBIN A1C Lab Routine Type 2 diabetes mellitus with hyperglycemia, with long-term current use of insulin ([facility]) ([facility]) Expected: 07/02/2023 (Approximate), Expires: 06/30/2024 documented as of this encounter Visit Diagnoses Diagnosis Type 2 diabetes mellitus with hyperglycemia, with long-term current use of insulin ([facility]) ([facility])- Primary documented in this encounter Care Teams Nuclear Power Reactor Operator Relationship Specialty Start Date End Date Che Sharpe PA [address] [place] [address] [place] [phone] PCP - General 10/16/21 Terry Hall MD [address] [place] [id number] 07/02/14 documented as of this encounter
--- OUTSIDE RECORDS SUMMARY | 2024-01-03 01:08 | XMS_ITS | Encounter Summary ---
[place] [address] Care Team Providers Care Documentation Coordinator Name Role Phone Leeanna Cohn MD Primary Care Provider [phone] Encounter Details Date Type Department Care Team (Late st Contact Info) Description 11/07/2016 Telephone [place] [phone] Ольга Carter LPN Social History Tobacco Use Types Packs/Day Years Used Date Smoking Tobacco: Every Day Cigarettes Sex and Gender Information Value Date Recorded Sex Assigned at Not on file Gender Identity Not on file Sexual Orientation Not on file documented as of this encounter Miscellaneous Notes * Telephone Encounter - Ольга Carter LPN - 11/07/2016 4:06 PM EDT R/c to patient Freestyle insulinx testing 3-4 times per day * Telephone Encounter - Ольга Carter LPN - 11/07/2016 3:42 PM EDT Images from the original note were not included. Emma Min?? Female, 36 y.o., 1980 Weight: 86.2 kg (190 lb) Home: PCP: None myD-H: Pending Next Appt: 02/08/2017 ?? Message Received: Today ? Clara Nguyen MD Isham, Gail, LPN ? Caller: Unspecified (Today, ??2:41 PM) ? Will you please call patient and find out for me as I do not know. Sorry about that, thank you! Clara ? Previous Messages Called patient. No answer. Message left on home v/m for patient to r/c with which test strips she uses. * Telephone Encounter - Ольга Carter LPN - 11/07/2016 2:41 PM EDT Call from Ned at [facility]. Rx was received for the following. Need to know which test strips are needed. Medication Detail ?? Disp Refills Start End ?? blood sugar diagnostic strips Strip 100 each 12 11/07/2016 ?? Sig: Use as instructed ?? E-Prescribing Status: Sent to pharmacy (11/07/2016 ??2:32 PM EDT) documented in this encounter Plan of Treatment Upcoming Encounters Date Type Department Care Team (Late st Contact Info) Description 12/03/2024 1:00 PM EDT Appointment Hematology [place] [phone] 12/03/2024 2:00 PM EDT Office Visit Hematology [place] [phone] Pelon Wisdom MD [facility] HEMATOLOGY [place] [address] Oksana Payne APRN [facility] [address] HEMATOLOGY [place] [address] documented as of this encounter Visit Diagnoses Not on filedocumented in this encounter Care Teams Documentation Coordinator Relationship Specialty Start Date End Date Leeanna Cohn MD [address] [place] [address] PCP - General 03/14/10 02/13/17 documented as of this encounter
--- OUTSIDE RECORDS SUMMARY | 2024-01-03 01:08 | XMS_ITS | Encounter Summary ---
Author Organization [facility] [place] [address] Care Team Providers Care Baby Stroller Rental Clerk Name Role Phone Leeanna Cohn MD Primary Care Provider [phone] Reason for Visit * Reason Onset Date Comments Other 11/27/2016 Encounter Details Date Type Department Care Team (Late st Contact Info) Description 11/27/2016 Telephone [place] [phone] Nuria Jones Other Social History Tobacco Use Types Packs/Day [...] encounter Miscellaneous Notes * Telephone Encounter - aLtonia Morales LPN - 11/27/2016 2:10 PM EDT Patient will check around for GI referral, and yes she is taking her Ranitidine twice daily. * Telephone Encounter - Nuria Whitaker - 11/27/2016 11:59 AM EDT Message: Rosy did a referral to GI and that department called and said that an appt for a consult or f/up they are booking into next year. Pt says that is too long to wait. How would Rosy like to proceed? Caller and relationship (if other than patient-full name): [facility] Best time to call back: any Ok to leave a message: [y] Ok to send my- message: [] Offered Appointment: Nurse contacted via: Message: x Call: Pager: documented in this encounter Plan of Treatment Upcoming Encounters Date Type Department Care Team (Late st Contact Info) Description 12/03/2024 1:00 PM EDT Appointment [place]ology [place] [address] 12/03/2024 2:00 PM EDT Office Visit Hematology [place] [phone] Pelon Wisdom MD [facility] DR HEMATOLOGY [place] [address] Oksana Payne APRN [facility] [address] HEMATOLOGY [place] [address] documented as of this encounter Visit Diagnoses Not on filedocumented in this encounter Care Teams Baby Stroller Rental Clerk Relationship Specialty Start Date End Date Leeanna Cohn MD [address] [place] [address] PCP - General 03/14/10 02/13/17 documented as of this encounter
--- OUTSIDE RECORDS SUMMARY | 2024-01-03 01:08 | XMS_ITS | Encounter Summary ---
Author Organization [facility] Address [address] [place] [address] Care Team Providers Care Library Technology Instructor Name Role Phone Terry Hall MD Unavailable Che Sharpe Primary Care Provider + Reason for Visit * Reason Onset Date Comments DME 04/18/2023 Encounter Details Date Type Department Care Team (Late st Contact Info) Description 04/18/2023 Telephone [facility] Endocrinology - [facility] [address] [place] [address] Gely Walker, STAGE ELECTRICIAN HELPER 62 [facility] [address] [place] [address] DME Social History Tobacco Use Types Packs/Day Years [...] Miscellaneous Notes * Telephone Encounter - Camila Sewell CDE - 04/23/2023 1603 EST Spoke with Emma, she resolved the issue by restarting the controller. She is not connected to the clinic on [employer]. I advised she try logging in and checking the settings to see if the proconnect code was entered uvealth. If it is she will need to [facility] help. Camila Sewell RN [facility] Certified Diabetes Care and Commissary Representative * Telephone Encounter - Karen Agee RN - 04/19/2023 1620 EST This RN left a vm for patient to contact insulin pump supplier to trouble shoot. Asked she contact clinic if she is off pump and need help with off pump guideline. Routing to [employer] pool. Karen Agee RN * Telephone Encounter - Nuria Milan - 04/18/2023 1618 EST Patient calling regarding issues with insulin pump. States it keeps going into manual mode and willnot stay in automatic. Please call back to discuss. documented in this encounter Plan of Treatment Not on file documented as of this encounter Visit Diagnoses Not on filedocumented in this encounter Care Teams Library Technology Instructor Relationship Specialty Start Date End Date Che Sharpe PA [address] [place] [address] [place] [address] PCP - General 10/16/21 Terry Hall MD [address] [place] [id number] 07/02/14 documented as of this encounter
--- OUTSIDE RECORDS SUMMARY | 2024-01-03 01:08 | XMS_ITS | Encounter Summary ---
Author Organization [facility] Address [address] [place] [address] Care Team Providers Care Airconditioning Drafting Officer Name Role Phone Terry Hall MD Unavailable Che Sharpe Primary Care Provider + Reason for Visit * Reason Onset Date Comments Medication Management 09/12/2022 Encounter Details Date Type Department Care Team (Late st Contact Info) Description 09/12/2022 Telephone [facility] Endocrinology - [facility] [address] [place] [address] Gely Walker, RAPIER INSERTION LOOM FIXER 62 [facility] [address] [place] [address] Medication Management Social History Tobacco Use Types Packs/Day [...] Dispensed Refills Start Date End Da te Insulin Syringe-Needle U-100 0.3 mL 31 gauge x 5/16 syringe Use as directed daily. Brand: BD Ultra-Fine Short 100 Each 12 09/13/2022 09/13/2023 BD LUER-BEBA SYRINGE 3 mL syringeIndications:Type 1 diabetes mellitus with hyperglycemia ([facility]) Inject 1 Each into the muscle 3 times daily. To use for insulin injections while off Omnipod insulin pump. 300 Each 1 09/12/2022 09/13/2022 documented in this encounter Miscellaneous Notes * Addendum Note - Gely Walker NP - 09/13/2022 1753 EDTAddended by: GELY WALKER on: 09/13/2022 17:53 Modules accepted: Orders * Telephone Encounter - Gely Walker NP - 09/13/2022 1740 EDT I Spoke with pharmacist Loco at [facility] He confirmed they they had received script for 3ml syringes, with instructions to use for pump backup. This is incorrect, was not filled, and I asked Loco to cancel rx and provide pt with 30units syringes for use as pump back up for which he took a verbal order. I will place order in her chart for this as well. Pt had previous conversation with Mari Claire with plan in place for upcoming MRI for when she needs to be off of her insulin pump. Gely Walker NP 09/13/2022 17:45 * Addendum Note - Karen Mcnamara RN - 09/12/2022 1613 EDTAddended by: KAREN MCNAMARA on: 09/12/2022 16:13 Modules accepted: Orders * Telephone Encounter - Karen Mcanmara RN - 09/12/2022 1612 EDT Preferred BD 3 ml syringes order placed at [facility] in [place]. Patient will be drawing up mealtime insulin while she is off pump for an MRI on Saturday09/14/22. Karen Mcnamara RN * Telephone Encounter - Mari Claire RD CDE - 09/12/2022 1546 EDT Call to Emma to review Omnipod 5 pump settings and off pump guidelines for when she takes off the insulin pod for MRI scheduled on Thursday 09/14. Emma has all off pump supplies except syringes for Novolog vials. Pump settings reviewed: 24 hour basal rate 19.1 units ICR: 8 Correction: 1:35 Target 110 Current insulin pod expires at 8:00 pm tonight Plan: At 6:00 pm tonight, 2 hours before the insulin pod expires, take 18 units of Lantus. We will send a prescription to the pharmacy for insulin syringes Take Novolog using vial and syringe prior to meals using ICR, correction and glucose target. Take Lantus at 6:00 pm on 09/13 and continue Novolog with vial and syringe. At 6:00 pm on Thursday 09/14, start a new insulin pod and resume use of the Omnipod 5 pump. Call clinic with any glucose issues or concerns. Emma expressed understanding of the above plan, no barriers noted in this telephon call. KARINA Carmona 09/12/2022 15:57 * Telephone Encounter - Mari Claire RD CDE - 09/12/2022 1309 EDT Call to patient to review current settings on her Omnipod 5 insulin pump and discuss off pump guidelines prior to MRI on 09/14. There is not a recent pump download in [employer] and patient is not linked with [email or web address] to review her current pump settings and make a recommendation regarding off pump guidelines. Unable to reach patient and left a detailed message to contact clinic to review current pump settings. KARINA Carmona 09/12/2022 13:16 * Telephone Encounter - Karen Mcnamara RN - 09/12/2022 1234 EDT Patient with type 1 diabetes uses an Omnipod insulin pump with Dexcom. Tonight at 2000, her Omnipod will be . Patient has an MRI on 09/14/22 and cannot wear pump or Dexcom. Patient will not put on a new pod until after MRI b/c she will not use all the insulin and cannot get a replacement pod. Patient is unsure if her pump settings are the same those from 07/05/22 provider progress note: Target glucose 110, correct above I:Carb 1:6 ICF 35 IOB 4 Max bolus: [address] Barajas ordered 18 units Lantus daily for pump failure on 06/24/22. Patient has Humalog available with needles and syringes. She has glucometer and testing supplies. PLAN Routing to [facility] and Dr. Barajas for assistance to give off pump insulin instructions. Karen Mcnamara RN * Telephone Encounter - Jenn Diaz - 09/12/2022 1227 EDT Endocrinology Incoming Call Reason for call: Medication management; Medication Questions Active Symptoms/Disease Management Call Reason: Patient is scheduled for an MRI Saturday. Patient has a Dexcom wireless Insulin Pump. Patient is due to change her Insulin POD tonight and Sensor evening however she does not want to replace it with a new one until after the MRI and needs instructions for dosing for giving herself insulin. Next Appointment: 11/08/2022 Last Office Visit: 10/16/2021 Breanna Flores MD Last Telehealth Encounter: 07/05/2022 Gely Walker, RAPIER INSERTION LOOM FIXER Send ROUTINE Priority to [facility] Endocrine Nurse [place] documented in this encounter Plan of Treatment Not on file documented as of this encounter Visit Diagnoses Diagnosis Type 1 diabetes mellitus with hyperglycemia ([facility] Primary Type I (juvenile type) diabetes mellitus without mention of complication, not stated as uncontrolled Type 2 diabetes mellitus with hyperglycemia, with long-term current use of insulin ([facility]) documented in this encounter Discontinued Medications Medication Sig Discontinue Reason Start Date End Da te BD LUER-BEBA SYRINGE 3 mL syringeIndications:Type 1 diabetes mellitus with hyperglycemia ([facility]) Inject 1 Each into the muscle 3 times daily. To use for insulin injections while off Omnipod insulin pump. Error 09/12/2022 09/13/2022 documented as of this encounter Care Teams Airconditioning Drafting Officer Relationship Specialty Start Date End Date Che Sharpe PA [address] [place] [phone] PCP - General 10/16/21 Terry Hall MD [address] [place] [id number] 07/02/14 documented as of this encounter
--- OUTSIDE RECORDS SUMMARY | 2024-01-03 01:08 | XMS_ITS | Encounter Summary ---
Author Organization [facility] Address [address] [place] [address] Care Team Providers Care Amusement Ride Inspector Name Role Phone Terry Hall MD Unavailable Che Sharpe Primary Care Provider + Reason for Visit * Reason Onset Date Comments Appointment Related 06/27/2023 Encounter Details Date Type Department Care Team (Late st Contact Info) Description 06/27/2023 Telephone [facility] Endocrinology - [facility] [address] [place] [address] eGly Qureshi, CHIEF CREDIT OFFICER [address] [facility] [address] [place] [address] Appointment Related Social History Tobacco Use Types Packs/Day Years [...] encounter Miscellaneous Notes * Telephone Encounter - Matilde Diane - 06/27/2023 1238 EST Left voicemail to schedule Follow Up appointment with gely qureshi NP Patient is due anytime after 12/28/23 Recall Letter Sent. Recall . documented in this encounter Plan of Treatment Not on file documented as of this encounter Visit Diagnoses Not on filedocumented in this encounter Care Teams Amusement Ride Inspector Relationship Specialty Start Date End Date Che Sharpe PA [address] [place] [address] [place] [phone] PCP - General 10/16/21 Terry Hall MD [address] [place] [address] 07/02/14 documented as of this encounter
--- OUTSIDE RECORDS SUMMARY | 2024-01-03 01:08 | XMS_ITS | Encounter Summary ---
Author Organization [facility] Address [address] [place] [address] Care Team Providers Care Professor Of Chemical Engineering Name Role Phone Terry Hall MD Unavailable Che Sharpe Primary Care Provider + Reason for Visit * Reason Onset Date Comments Blood Sugar Problem 06/24/2022 Encounter Details Date Type Department Care Team (Late st Contact Info) Description 06/24/2022 Telephone [facility] Endocrinology - [facility] [address] [place] [address] Mikayla Barajas DO [address] [facility] [address] [place] [address] Blood Sugar Problem Social History [...] encounter Miscellaneous Notes * Telephone Encounter - Mikayla Barajas DO - 06/24/2022 0856 EST Patient called, she spoke with Dr. Jacobsen last week. She is using the Omnipod 5. Her blood sugars have been high since last week. She is on antibiotics for a staph infection on her arm. This has been healing, she saw her PCP last week. Her antibiotic is changing. Her blood sugar has been around 200. She has been bolusing extra. Over the weekend, she changed hercarb ratio first from 1:10 to 1:8. It is now 1:6. She called Omnipod on how to review her settings. Basal in manual mode 0.8 un/hr, Correction 1:35, target glucose 120, correct over 140. She will change her correction to 1:30 and target glucose to 110. She will call with any further concerns. I will send Lantus to her pharmacy to have if needed. documented in this encounter Plan of Treatment Not on file documented as of this encounter Visit Diagnoses Not on filedocumented in this encounter Care Teams Professor Of Chemical Engineering Relationship Specialty Start Date End Date Che Sharpe PA [address] [place] [address] [place] [phone] PCP - General 10/16/21 Terry Hall MD [address] [place] [address] 07/02/14 documented as of this encounter
--- OUTSIDE RECORDS SUMMARY | 2024-01-03 01:08 | XMS_ITS | Encounter Summary ---
Author Organization [facility] Address [address] [place] [address] Care Team Providers Care Clerical Assistant Name Role Phone Terry Hall MD Unavailable Che Sharpe Primary Care Provider + Reason for Visit * Reason Onset Date Comments DME 11/16/2022 Encounter Details Date Type Department Care Team (Late st Contact Info) Description 11/16/[address] [facility] Endocrinology - [facility] [address] [place] [address] Gely Walker, [employer] 62 [facility] [address] [place] [address] DME Social History Tobacco Use [...] Telephone Encounter - Camila Sewell CDE - 11/16/2022 1616 EDT Spoke with Emma who actually was looking for someone to program her new omnipod 5 controller. She was able to set it up using the settings from the current controller and states she is all set. I advised her to call us if she needs any further assistance. Patient verbalized understanding. No barriers to learning noted. * Telephone Encounter - Liz Dennis - 11/16/2022 1044 EDT Patient got a new controller for Dexcom G6 and she is unsure how to set it up. She is asking for a call back to see if someone can walk her through the process. Thank You documented in this encounter Plan of Treatment Not on file documented as of this encounter Visit Diagnoses Not on filedocumented in this encounter Care Teams Clerical Assistant Relationship Specialty Start Date End Date Che Sharpe PA [address] [place] [address] [place] [address] PCP - General 10/16/21 Terry Hall MD [address] [place] [address] 07/02/14 documented as of this encounter
--- OUTSIDE RECORDS SUMMARY | 2024-01-03 01:08 | XMS_ITS | Encounter Summary ---
Author Organization [facility] Address [address] [place] [address] Care Team Providers Care Classification Clerk Name Role Phone Terry Hall MD Unavailable Che Sharpe Primary Care Provider + Reason for Visit * Reason Comments Medications Refill Encounter Details Date Type Department Care Team (Late st Contact Info) Description 08/04/2022 Refill [facility] Endocrinology - [facility] [address] [place] [address] Gely Walker, WELT WHEELER 62 [facility] [address] [place] [address] Medications Refill Social History Tobacco [...] up to 75 units via insulin pump 30 mL 08/10/2022 09/18/2022 documented in this encounter Miscellaneous Notes * Telephone Encounter - Shivani Morrison, RN - 08/10/2022 1314 EDT Request received for Novolog U-100. Per provider note 07/02/2022: humalog via pump Patient has upcoming appointment 11/08/2022 Called to pharmacy to confirm which meds are being requested. Pharmacy confirms patient has been dispensed Humalog Refusing prescription. Refill for Humalog sent. Shivani Morrison RN documented in this encounter Plan of Treatment Not on file documented as of this encounter Visit Diagnoses Not on filedocumented in this encounter Discontinued Medications Medication Sig Discontinue Reason Start Date End Da te insulin lispro (HUMALOG) 100 unit/mL vial Inject into the skin up to 75 units via insulin pump Reorder 05/29/2022 08/10/2022 documented as of this encounter Care Teams Classification Clerk Relationship Specialty Start Date End Date Che Sharpe PA [address] [place] [address] [place] [address] PCP - General 10/16/21 Terry Hall MD [address] [place] [address] 07/02/14 documented as of this encounter
--- OUTSIDE RECORDS SUMMARY | 2024-01-03 01:08 | XMS_ITS | Encounter Summary ---
Author Organization [facility] [place] [address] Care Team Providers Care Byproducts Extractor Name Role Phone Leeanna Cohn MD Primary Care Provider [phone] Reason for Visit * Reason Onset Date Comments Prior Authorization 11/16/2016 Encounter Details Date Type Department Care Team ([facility] Contact Info) Description 11/16/2016 Telephone [place] [phone] Jackie Monahan Prior Authorization Social History Tobacco [...] * Telephone Encounter - Jackie Monahan - 11/16/2016 3:09 PM EDT Medication Prior Authorization JEANETTE Medication name/dose/directions: VICTOZA 18MG/3ML - INJ 0.6 DAILY Rationale for request: TYPE II DM Health plan: [place] ([facility]) Authorizing account representative name: EBEN Faxed to health plan on: 11/16/16 Health plan decision: APPROVED Quantity approved: Authorization number: [id number] Start date: 11/16/16 End date: 11/16/17 documented in this encounter Plan of Treatment Upcoming Encounters Date Type Department Care Team (Late Contact Info) Description 12/03/2024 1:00 PM EDT Appointment [place]ology [place] [address] 12/03/2024 2:00 PM EDT Office Visit [place]ematology [place] [address] Pelon Wisdom MD [facility] [place] [address] Oksana Payne APRN [facility] [place] [address] documented as of this encounter Visit Diagnoses Not on filedocumented in this encounter Care Teams Byproducts Extractor Relationship Specialty Start Date End Date Leeanna Cohn MD [address] [place] [address] PCP - General 03/14/10 02/13/17 documented as of this encounter
--- OUTSIDE RECORDS SUMMARY | 2024-01-03 01:08 | XMS_ITS | Encounter Summary ---
Author Organization [facility] Address [address] [place] [address] Care Team Providers Care Diesel Dinkey Engineer Name Role Phone Terry Hall MD Unavailable Che Sharpe Primary Care Provider + Reason for Visit * Reason Comments Medications Refill Encounter Details Date Type Department Care Team (Late st Contact Info) Description 11/05/2022 Refill [facility] Endocrinology - [facility] [address] [place] [address] Gely Walker, MEDICAL ACCOUNTING CLERK 62 [facility] [address] [place] [address] Medications Refill Social History Tobacco [...] (HUMALOG U-100 INSULIN) 100 unit/mL vial INJECT UP TO 75 UNITS INTO THE SKIN VIA INSULIN PUMP DAILY 30 mL 11/06/2022 11/08/2022 documented in this encounter Miscellaneous Notes * Telephone Encounter - Mary Wallis (Rn), RN - 11/06/2022 0959 EDT Pt last seen 07/05/2022 documented in this encounter Plan of Treatment Not on file documented as of this encounter Visit Diagnoses Not on filedocumented in this encounter Discontinued Medications Medication Sig Discontinue Reason Start Date End Da te insulin lispro (HUMALOG U-100 INSULIN) 100 unit/mL vial INJECT INTO THE SKIN UP TO 75 UNITS VIA INSULIN PUMP 09/18/2022 11/06/2022 documented as of this encounter Care Teams Diesel Dinkey Engineer Relationship Specialty Start Date End Date Che Sharpe PA [address] [place] [phone] PCP - General 10/16/21 Terry Hall MD [address] [place] [address] 07/02/14 documented as of this encounter
--- OUTSIDE RECORDS SUMMARY | 2024-01-03 01:08 | XMS_ITS | Encounter Summary ---
Author Organization [facility] Address [address] [place] [address] Care Team Providers Care Tare Man Name Role Phone Terry Hall MD Unavailable Che Sharpe Primary Care Provider + Reason for Visit * Reason Onset Date Comments Medications Refill 05/29/2022 Encounter Details Date Type Department Care Team (Late st Contact Info) Description 05/29/2022 Refill [facility] Endocrinology - [facility] [address] [place] [address] Gely Walker, CHIEF CRUISER 62 [facility] [address] [place] [address] Medications Refill Social History Tobacco [...] 75 units via insulin pump 30 mL 05/29/2022 08/10/2022 documented in this encounter Miscellaneous Notes * Telephone Encounter - Mary Wallis NP - 05/29/2022 1035 EST Pt last seen 12/07/2021. Allergy for latex as inactive ingredient appears, script was previously sent to pharmacy by provider. Will send refills to pharmacy up to next appt. * Telephone Encounter - Mindy Chan MA - 05/29/2022 1015 EST Images from the original note were not included. We received a fax from [id number] requesting a refill for HUALOG 100 UNIT/ML VIAL. Please review appropriately thank you. documented in this encounter Plan of Treatment Not on file documented as of this encounter Visit Diagnoses Not on filedocumented in this encounter Discontinued Medications Medication Sig Discontinue Reason Start Date End Da te insulin lispro (HUMALOG) 100 unit/mL vial Inject into the skin up to 75 units via insulin pump Reorder 10/24/2021 05/29/2022 documented as of this encounter Care Teams Tare Man Relationship Specialty Start Date End Date Che Sharpe PA [address] [place] [address] [place] [address] PCP - General 10/16/21 Terry Hall MD [address] [place] [address] 07/02/14 documented as of this encounter
--- OUTSIDE RECORDS SUMMARY | 2024-01-03 01:08 | XMS_ITS | Encounter Summary ---
Author Organization [facility] Address [address] [place] [address] Care Team Providers Care Signs Cleaner Name Role Phone Terry Hall MD Unavailable Che Sharpe Primary Care Provider + Reason for Visit * Reason Onset Date Comments Medications Refill 08/15/2022 Encounter Details Date Type Department Care Team (Late st Contact Info) Description 08/15/2022 Refill [facility] Endocrinology - [address] [address] Yvette Piedra V, 62 [facility] [address] [place] [address] Medications Refill Social History Tobacco [...] Refills Start Date End Da te insulin pump cart,automated,BT (OMNIPOD 5 G6 PODS, GEN 5,) cartridgeIndications:Type 1 diabetes mellitus with hyperglycemia ([facility]) Inject 1 Each into the skin every 72 hours. 30 Each 3 09/03/2022 11/08/2022 documented in this encounter Miscellaneous Notes * Telephone Encounter - Katie Echeverria RN - 09/03/2022 0859 EDTFrom: Emma Min To: Office of Yvette Piedra DO Sent: 08/15/2022 17:01 EDT Subject: Medication Renewal Request Refills have been requested for the following medications: insulin pump cart,automated,BT (OMNIPOD 5 G6 PODS, GEN 5,) cartridge [Breanna Flores] Patient Comment: I was only able to get a refill for 10-20 pods today when I called the pharmacy. Iusually get a 90 day supply Pre ferred pharmacy: [facility] [place], [place] - [address] [place] [address] AT [facility] documented in this encounter Plan of Treatment Not on file documented as of this encounter Visit Diagnoses Diagnosis Type 1 diabetes mellitus with hyperglycemia ([facility] Primary Type I (juvenile type) diabetes mellitus without mention of complication, not stated as uncontrolled documented in this encounter Discontinued Medications Medication Sig Discontinue Reason Start Date End Da te insulin pump cart,automated,BT (OMNIPOD 5 G6 PODS, GEN 5,) cartridgeIndications:Type 1 diabetes mellitus with hyperglycemia ([facility]) Inject 1 Each into the skin every 72 hours. Reorder 10/17/2021 08/15/2022 documented as of this encounter Care Teams Signs Cleaner Relationship Specialty Start Date End Date hCe Sharpe PA [address] [place] [address] [place] [phone] PCP - General 10/16/21 Terry Hall MD [address] [place] [address] 07/02/14 documented as of this encounter
--- OUTSIDE RECORDS SUMMARY | 2024-01-03 01:08 | XMS_ITS | Referral Summary ---
Author Organization [facility] Address [address] [place] [address] Care Team Providers Care Medical Pathology Teacher Name Role Phone Terry Hall MD Unavailable Che Sharpe Primary Care Provider + Allergies Active Allergy Reactions Criticality Noted Date Comments Exenatide Microspheres Diarrhea,GI upset 2016 Lactose Diarrhea Low 09/23/2014 Latex, Natural Rubber Swelling,Rash Low 09/23/2014 Metformin GI upset 10/26/2016 Quetiapine Anaphylaxis High 09/23/2014 All anti depressant medications Medications Medication Sig Dispensed Refills Start Date End Date Status famotidine (PEPCID) 20 mg tablet Take 20 mg by mouth 2 times daily. Active medroxyPROGESTERone (DEPO-PROVERA) 150 mg/mL injection INJECT 1ML INTRAMUSCULARLY EVERY 3 MONTHS 09/04/2021 Active insulin pump cart,auto,BT-cntr (OMNIPOD 5 G6 INTRO KIT, GEN 5,) cartridgeIndication s:Type 1 diabetes mellitus with hyperglycemia ([facility]) Inject 1 Each into the skin once for 1 dose. 1 Each 10/17/2021 Active ONETOUCH ULTRA2 METER Use as directed as needed (glucose monitoring). 1 Each 10/20/2021 Active ONETOUCH ULTRAMINI Use 1 Each as directed 3 times daily. E11.65. Pharmacy may substitute a different brand for insurance coverage. 1 Each 10/20/2021 Active ONE TOUCH DELICA 33 gauge misc Use 3 lancet as directed daily. E11.65. Pharmacy may substitute a different brand for insurance coverage. 300 Each 10/20/2021 Active blood glucose test strips Use 3 Strips as directed daily. Brand: One Touch Ultra. E11.65. Pharmacy may substitute a different brand for insurance coverage. 300 Each 10/20/2021 Active Insulin Syringe-Needle U-100 1 mL 29 gauge x 1/2 syringe Use 1 Syringe as directed daily. Brand: BD Ultrafine. For loading insulin pump reservoir 100 Each 10/24/2021 Active insulin glargine (LANTUS SOLOSTAR/SEMGLEE) 100 unit/mL (3 mL) injection penIndications:Type 2 diabetes mellitus with hyperglycemia, with long-term current use of insulin ([facility]) Inject 18 Units into the skin as needed (daily for pump failure). 3 mL 06/24/2022 Active insulin pen needles 31G x 3/16 Use as directed as needed for Other (pump failure). Brand: BD Ultra Fine Mini 20 Each 06/24/2022 Active insulin pump cart,automated,BT (OMNIPOD 5 G6 PODS, GEN 5,) cartridgeIndication s:Type 1 diabetes mellitus with hyperglycemia ([facility]) Inject 1 Each into the skin every 72 hours. 30 Each 11/08/2022 Active semaglutide (OZEMPIC) 2 mg/dose (8 mg/3 mL) pen injector Inject 2 mg into the skin every 7 days. 9 mL 12/30/2022 Active insulin lispro (HUMALOG U-100 INSULIN) 100 unit/mL vial INJECT UP TO 75 UNITS SUBCUTANEOUSLY VIA INSULIN PUMP DAILY 30 mL 12/30/2022 Active DEXCOM G6 SENSOR deviceIndications:T ype 2 diabetes mellitus with hyperglycemia, with long-term current use of insulin ([facility]) CHANGE EVERY 10 DAYS 3 Each 09/09/2023 Active DEXCOM G6 TRANSMITTER deviceIndications:T ype 2 diabetes mellitus with hyperglycemia, with long-term current use of insulin ([facility]) CHANGE DIRECTED EVERY 3 MONTHS 1 Each 10/02/2023 Active Active Problems Patient Care Coordination No te Formatting of this note migh t be different from the original. Patient has given permission for the [facility] to verbally discuss the following information with Carlos Perrin who has the following relationship to the patient: Spouse/Partner: Scheduling/Appt/Billing/Payment Information (does not include clinical information unless specifically indicated with separate option) Medical Information including symptoms, diagnosis, medications, test results and treatment plan (does not include Mental Health unless specifically indicated with separate option) Permission remains in effect until the patient elects to revoke it. Problem Noted Date Diagnosed Date Type 2 diabetes mellitus wit h hyperglycemia, with long-term current use of insulin ([facility]) 09/23/2014 Overview: ICD10 Update Auto Replacement Last Assessment & Plan: A1c 6.7 last year, due now, ordered [...] on accuracy of carb counting at supper. Social History Tobacco Use Types Packs/Day Years [...] Choose not to disclose 2023 15:46 EST Last Filed Vital Signs Vital Sign Reading Time Taken Comments Blood Pressure 117/73 10/16/2021 0848 EDT Pulse 104 10/16/2021 0848 EDT Temperature 36.2 ??C (97.2 ??F) 05/30/2019 0836 EST Respiratory Rate 18 05/30/2019 0836 EST Oxygen Saturation 98% 05/30/2019 0836 EST Inhaled Oxygen Concentration - - Weight 77.2 kg (170 lb 3.2 oz) 10/16/2021 0848 E DT Height 162.6 cm (5' 4.02) 10/16/2021 0848 EDT Body Mass Index 29.2 10/16/2021 0848 EDT Functional Status Functional Status Response Date of [...] concentrating, remembering, or making decisions? No 05/23/2016 Plan of Treatment Not on file Procedures Procedure Name Priority Date/Time Associated Diagnosis Comments HEMOGLOBIN A1C Routine 06/20/2022 15:32 EST HEPATITIS C AB W REFLEX TO HCV RNA BY PCR Routine 08/09/2020 9:46 EDT LIPID PROFILE (INCLUDES CHOLESTEROL, TRIGLYCERIDES, HDL, LDL) Routine 08/10/2015 14:11 EDT Type 2 diabetes mellitus with hyperglycemia ([facility]) ([facility]) URINE [id number] NE RATIO (ACR) Routine 08/10/2015 14:11 EDT Type 2 diabetes mellitus with hyperglycemia ([facility]) ([facility]) from Last 3 Months or Most Recently Relevant to Health Maintenance Results * (ABNORMAL) HEMOGLOBIN A1C (06/20/2022 15:32 EST) Hemoglobin A1c 6.7(H) <5.7 % 06/21/2022 11:22 [facility] Comment: Glycemic Status References: Normal: ??<5.7% Pre-Diabetes: ??5.7% - 6.4% Diagnostic of Diabetes: ??> or = 6.5% (if confirmed) Est Avg Glucose 146 mg/dL 11:22 [facility] Comment:The eAG represents t he A1c result expressed as average glucose in mg/dL. Blood VENOUS BLOOD / Unknown 06/20/2022 15:32 EST 06/20/2022 22:25 EST Provider Outr Resulting Lab CHEMISTRY & BLOOD GAS ORDERABLES [facility] [address] [place] [address] * HEPATITIS C AB W REFLEX TO HCV RNA BY PCR (08/09/2020 9:46 EDT) Hep C Antibody Negative Negative 08/10/2020 9:48 EDT [facility] Blood VENOUS BLOOD / Unknown 08/09/2020 9:46 EDT 08/09/2020 21:13 EDT Provider Outr Resulting Lab CHEMISTRY & BLOOD GAS ORDERABLES Performing Organization Address [facility] Co de Phone Number [facility] [address] [place] [address] * ALBUMIN, URINE (08/10/2015 14:11 EDT) Creatinine, Urn Dougherty 104.2 mg/dl 08/11/2015 9:20 EDT [facility] Ur Albumin mg/dl 0.8 mg/dl 08/11/2015 12:30 EDT [facility] Ur Alb ug/mg Crea 7.7 ug/mg Crea 08/11/2015 12:30 EDT [facility] Comment: Normal: <30 ug/mg creat High albuminuria: 30-300 ug/mg creat Very high albuminuria: >300 ug/mg creat Urine specimen (specimen) URINE / Unknown 08/10/2015 14:11 EDT 08/10/2015 15:22 EDT Greta Galicia WOUND/OSTOMY NURSE CHEMISTRY & BLOOD G ORDERABLES Performing Organization Address [facility]/ZIP Co de Phone Number [facility] [address] [place] [address] * LIPID PROFILE (INCLUDES CHOLESTEROL, TRIGLYCERIDES, HDL, LDL) (08/10/2015 14:11 EDT) Cholesterol 234 mg/dl 08/10/2015 16:24 EDT [facility] Comment: Slight hemolysis Desirable:<200 Borderline High:200-239 High:>xx=079 Triglycerides 209 mg/dl 08/10/2015 16:24 T [facility] Comment: Slight hemolysis Normal:<150 Borderline High:150-199 High:200-499 Very High:>rx=550 HDL 49 mg/dl 08/10/2015 16:24 T [facility] Comment: Slight hemolysis Low:<40 Normal:40-60 Desirable: >60 LDL, Calculated 143 mg/dl 6 16:24 T [facility] Comment: Optimal:<100 Near Optimal:100-129 Borderline High:130-159 High:160-189 Very High:>ve=417 Chol/HDL Ratio 4.8 08/10/2015 16:24 [facility] Fasting? Unknown 08/10/2015 14:11 [facility] Non HDL Cholesterol 185 mg/dl 08/10/2015 16:24 [facility] Comment: Slight hemolysis Desirable:<130 Borderline:130-159 High: 160-189 Very High: >cc=811 Blood specimen (specimen) BLOOD SPECIMEN / Unknown 08/10/2015 14:11 EDT 08/10/2015 15:20 EDT Greta Galicia WOUND/OSTOMY NURSE CHEMISTRY & BLOOD G ORDERABLES [facility] [address] [place] [address] from Last 3 Months or Most Recently Relevant to Health Maintenance Care Teams Medical Pathology Teacher Relationship Specialty Start Date End Date Che Sharpe PA [address] [address] [place] [phone] PCP - General 10/16/21 Terry Hall MD [address] [place] [phone] 07/02/14
--- OUTSIDE RECORDS SUMMARY | 2024-01-03 01:08 | XMS_ITS | Encounter Summary ---
Author Organization [facility] Address [address] [place] [address] Care Team Providers Care Platform Inspector Name Role Phone Terry Hall MD Unavailable Che Sharpe Primary Care Provider + Reason for Visit * Reason Comments Medications Refill Encounter Details Date Type Department Care Team (Late st Contact Info) Description 12/26/2022 Refill [facility] Endocrinology - [facility] [address] [place] [address] Gely Walker, PURLER 62 [facility] [address] [place] [address] Medications Refill Social History Tobacco [...] SUBCUTANEOUSLY VIA INSULIN PUMP DAILY 30 mL 11 12/30/2022 documented in this encounter Plan of Treatment Not on file documented as of this encounter Visit Diagnoses Not on filedocumented in this encounter Discontinued Medications Medication Sig Discontinue Reason Start Date End Da te insulin lispro (HUMALOG U-100 INSULIN) 100 unit/mL vial INJECT UP TO 75 UNITS INTO THE SKIN VIA INSULIN PUMP DAILY 11/08/2022 12/30/2022 documented as of this encounter Care Teams Platform Inspector Relationship Specialty Start Date End Date Che Sharpe PA [address] [place] [phone] PCP - General 10/16/21 Terry Hall MD [address] [place] [address] 07/02/14 documented as of this encounter
--- OUTSIDE RECORDS SUMMARY | 2024-01-03 01:08 | XMS_ITS | Encounter Summary ---
Author Organization [facility] Address [address] [place] [address] Care Team Providers Care Center Customer Service Associate Name Role Phone Terry Hall MD Unavailable Che Sharpe Primary Care Provider + Reason for Visit * Reason Onset Date Comments Blood Sugar Problem 07/23/2022 Letter 07/23/2022 Follow-up 07/23/2022 Encounter Details Date Type Department Care Team (Late st Contact Info) Description 07/23/2022 Telephone [facility] Endocrinology - [facility] [address] [place] [address] Gely Walker, PLANT TAXONOMY TEACHER [address] [facility] [address] [place] [address] Blood Sugar Problem; Letter; Follow-up Social History Tobacco Use Types Packs/Day [...] encounter Miscellaneous Notes * Telephone Encounter - Julianne Langley - 07/23/2022 1625 EDT Pt called to follow up on getting a letter for being out of work today, she does not see anything in MyChart yet. Please call back to discuss. * Telephone Encounter - Lynda Browning - 07/23/2022 1057 EDT Patient called to verify she would still receive the letter via my chart to excuse her from work today. 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 * Telephone Encounter - Camila Sewell, AVIVAE - 07/23/2022 0940 EDT Omnipod 5 is not connecting to the [facility]. I have asked her to connect. If she has trouble she can contact omnipod for assistance. She was advised to calibrate the sensor when she notices discrepancies between the sensor and the blood. She is wearing the sensor on her arm and the pod on the abdomen. Some sensor signal loss from the phone that has been happening as long as she has been using the dexcom. She is very happy overall with the omnipod system her ha1c went from 9.3% to 6.3%. We reviewed the effect of alcohol on the glucose. She was advised to set the activity setting next time to target 150 for the night as well as having a protein snack before going to bed. * Telephone Encounter - Katie Echeverria RN - 07/23/2022 0843 EDT Called pt. She is a Type 2 diabetic using Omnipod 5. Early June she called with elevated BGs. She had an infection and was on antibiotics. Pt had been on auto mode and needed assist to adjust her basal, corrections and targets. She has not changed those settings since. Pt no longer has infection and has yamilex off ABX. She is back on auto mode. Pt settings per 06/[address] Barajas are: Basal 0.8 u/hr CX 1:30 Target 110 Pt states taht she has not had any lows for some time and has yamilex feeling well generally. This specification writer asked if she had done anythig different lately. Pt had gone to dinner yesterday and had some alcohol. Pt did not know that alcohol consumption may contribute to low BG. Pt BG burrently @ 80's. Pt reports atht her Dexcom had vastly different readings than fingerstick. Low occurred @ 6AM when she awoke, felt intoxicated, dizzy, nauseated and she passed out. She did consume glucose and apple juice. This specification writer asked if she had suspended her pump while having difficulty bringing her BG back up andshe had not. Routing to CDE and provider. Pt asked for a leter for work excusing her. Letter can be sent to her via [employer]. * Telephone Encounter - Lynda Browning - 07/23/2022 0809 EDT Endocrinology Incoming Call Reason for call: Blood sugar problem Active Symptoms/Disease Management Call Reason: Patient states she woke up this morning not feeling well. Dexom stated sugar at 130 range but it actually was 63. Patient felt as if she was intoxicated. Patient states it took a while to get sugar back up and when she did she tried getting ready for work and fell over and passed out. Patient is having hard time keeping sugar up. Patient states dexcom cotinues to read 130 even thoughit is not at that level. Next Appointment: 08/03/2022 Last Office Visit: 10/16/2021 Breanna Flores MD Last Telehealth Encounter: 07/05/2022 Gely Walker, PLANT TAXONOMY TEACHER Send ROUTINE Priority to [facility] Endocrine Nurse Pool documented in this encounter Plan of Treatment Not on file documented as of this encounter Visit Diagnoses Not on filedocumented in this encounter Care Teams Center Customer Service Associate Relationship Specialty Start Date End Date Che Sharpe PA [address] [place] [address] [place] [phone] PCP - General 10/16/21 Terry Hall MD [address] [place] [id number] 07/02/14 documented as of this encounter
--- OUTSIDE RECORDS SUMMARY | 2024-01-03 01:08 | XMS_ITS | Encounter Summary ---
Author Organization [facility] Address [address] [place] [address] Care Team Providers Care Business Planning Analyst Name Role Phone Terry Hall MD Unavailable Che Sharpe Primary Care Provider + Reason for Visit * Reason Onset Date Comments Medications Refill 09/18/2022 Encounter Details Date Type Department Care Team (Late st Contact Info) Description 09/18/2022 Refill [facility] Endocrinology - [facility] [address] [place] [address] Gely Walker, VICE PRESIDENT OF CONTRACTS [address] [facility] [address] [place] [address] Medications Refill Social History Tobacco [...] Dispensed Refills Start Date End Da te Blood-Glucose Sensor (DEXCOM G6 SENSOR) deviceIndications:Type 2 diabetes mellitus with hyperglycemia, with long-term current use of insulin (HCC-CMS),Type 1 diabetes mellitus with hyperglycemia (HCC-CMS) 1 Each by misc (non-drug; combo route) route every 10 days. 3 Each 11 09/18/2022 09/09/2023 documented in this encounter Miscellaneous Notes * Telephone Encounter - Mary WallisRn), RN - 09/18/2022 1016 EDT Pt last seen 07/05/2022. * Telephone Encounter - Mindy Chan MA - 09/18/2022 1009 EDT Images from the original note were not included. We received a fax from [employer] [id number] requesting a refill for DEXCOM G6 SENSOR. Please review appropriately thank you. documented in this encounter Plan of Treatment Not on file documented as of this encounter Visit Diagnoses Diagnosis Type 2 diabetes mellitus with hyperglycemia, with long-term current use of insulin (HCC-CMS) Type 1 diabetes mellitus with hyperglycemia (HCC-CMS) Type I (juvenile type) diabetes mellitus without [...] (non-drug; combo route) route every 10 days. Reorder 10/16/2021 09/18/2022 documented as of this encounter Care Teams Business Planning Analyst Relationship Specialty Start Date End Date Che Sharpe PA [address] [place] [phone] PCP - General 10/16/21 Terry Hall MD [address] [place] [id number] 07/02/14 documented as of this encounter
--- OUTSIDE RECORDS SUMMARY | 2024-01-03 01:08 | XMS_ITS | Encounter Summary ---
Author Organization [facility] [place] [address] [place] [address] Care Team Providers Care Planning Management It Specialist Name Role Phone Leeanna Cohn MD Primary Care Provider [phone] Reason for Visit * Reason Onset Date Comments Results 11/09/2016 Encounter Details Date Type Department Care Team (Late st Contact Info) Description 11/09/2016 Telephone [place] [phone] Clara Nguyen MD [facility] [place] [address] Results Social History Tobacco Use Types Packs/Day Years Used Date Smoking Tobacco: Every Day Cigarettes Sex and Gender Information Value Date Recorded Sex Assigned at Not on file Gender Identity Not on file Sexual Orientation Not on file documented as of this encounter Miscellaneous Notes * Telephone Encounter - Clara Nguyen MD - 11/09/2016 11:50 AM EDT Called patient to convey following lab results: Component Latest Ref Rng & Units 11/07/2016 Alb/Cr Ratio, Random 0 - 29 mcg/mg Cr 4 U Albumin Conc, Random mg/L 9.9 U Creatinine mg/dL 224 Hemoglobin A1C 4.3 - 5.6 % 7.2 (H) Est Avg Gluc mg/dL 160 C-Peptide 0.8 - 5.2 ng/mL 5.2 Glucose Lvl 65 - 199 mg/dL 185 She is in fact type 2 diabetic as her c-peptide is present. Her hba1c is within goal. Will see her back in clinic in 3 months for hba1c recheck and proceed from there. She has yet to start her extended release Metformin however. documented in this encounter Plan of Treatment Upcoming Encounters Date Type Department Care Team (Late st Contact Info) Description 12/03/2024 1:00 PM EDT Appointment Hematology [place] [address] 12/03/2024 2:00 PM EDT Office Visit Hematology [place] [address] Pelon Wisdom MD [facility] [address] [place] [address] Oksana Payne APRN [facility] [address] [place] [address] documented as of this encounter Visit Diagnoses Not on filedocumented in this encounter Care Teams Planning Management It Specialist Relationship Specialty Start Date End Date Leeanna Cohn MD [address] [place] [address] PCP - General 03/14/10 02/13/17 documented as of this encounter
--- OUTSIDE RECORDS SUMMARY | 2024-01-03 01:08 | XMS_ITS | Encounter Summary ---
Author Organization [facility] Address [address] [place] [address] Care Team Providers Care Compensation Supervisor Name Role Phone Terry Hall MD Unavailable Che Sharpe Primary Care Provider + Reason for Visit * Reason Onset Date Comments Blood Sugar Problem 07/24/2023 Letter for School/Work 07/25/2023 Encounter Details Date Type Department Care Team (Late st Contact Info) Description 07/24/2023 Telephone [facility] Endocrinology - [facility] [address] [place] [address] Gely Walker, REPORTING LEAD [address] [facility] [address] [place] [address] Blood Sugar Problem; Letter for School/Work Social History Tobacco Use Types Packs/Day Years [...] encounter Miscellaneous Notes * Telephone Encounter - Gely Walker NP - 08/04/2023 1732 EDT Out of work note completed. Gely Walker NP 08/04/2023 17:32 * Telephone Encounter - Nuria Milan - 07/25/2023 1448 EDT Patient calling to speak with the nurse. Says she spoke with the nurse yesterday and requested a letter for work because she had to miss due to sugar numbers. Patient says she was told a letter wouldbe put through [employer], but patient has not received anything. Please call back to discuss. * Telephone Encounter - Camila Sewell, CDE - 07/24/2023 1712 EDT Telephone call to Emma. She is using the omnipod 5 insulin pump. I am not able to see any pump data on glooko. I discussed with her how to connect. Instructions were sent via [employer]. She understands she may need to contact [employer] if unable to connect. Wifi is required on the controller to upload. Her glucose numbers are high most of the time since this eye problem started. Plan: We created a new basal profile titled sick day, Basal 12am to 12am 0.9 We also adjusted her correction from 1:35 to 1:30. We reviewed that once the illness resolves her insulin requirements will return to baseline and we will need to switch back to her usual basal profile. Update me tomorrow by mychart or telephone and we can make further adjustments if needed. Patient verbalized understanding. No barriers to learning noted. * Telephone Encounter - Katie Echeverria RN - 07/24/2023 1612 EDT Pt calling. She reports she is continuing with elevated Bgs in the 200's for several days. She is being treated for a bilateral eye infection. T2DM using Omnipod 5 insulin pump and Dexcom. Pt is usually well controlled. She reports that she has not yet heard back from CDE or provider. This publications writer discussed pt situation with Dr. Barajas who agrees that pt can change her carb ratio from1:8 to 1:6. Pt's pump is on automatic. Suggested to her that the 4 unit bolus that she often gives around dinner (often after eating by 1-2 hours) that she should give that bolus before she eats and if till in the 200's she can go to 6 units. Explained to pt that she otherwise is stacking her insuli n and may result in a low BG. Pt is also to test her ketones. Pt c/o headache and nausea which may be related to Bgs but may alsobe related to the antibiotics and infection. If Bgs are Mod to High and she has thee s/s, she is advised to go to ED for fluids and tx. 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 She is requesting a letter for work. Shedid not attend work today and will not attend work tomorrow. Sending the letter to [facility] is fine with her as she will be able to print it out. Reminded pt that if she does not hear from CDE or Provider before 5 and she is continuing with issues, she can call on-call. Telephone number provided. This wrier also asked pt to call clinic tomorrow to check in with us. Patient verbalized understanding. No barriers to learning noted. Katie Echeverria RN, BSN Endocrinology * Telephone Encounter - Karen Agee RN - 07/24/2023 9069 EDT Images from the original note were not included. A patient with type 2 diabetes on the Omnipod 5 insulin pump who started the antibiotic erythromycin for a double eye infection and had an allergic reaction to medication. She is not on cephalexin BID one week ago and her blood sugars have been high. She will be on cephalexin for one more week. Current insulin regiment Target glucose 110, correct above I:Carb 1:8, uses I;carb ratio at b/l and usually only takes 4 units with supper if she remembers ICF 35 IOB 4 Max bolus: 12 units Current blood sugar is 227 on Dexcom. She has been double checking with finger sticks for accuracy. She has been pushing fluids. PLAN Routing to [employer] for help with full Clarity download. Routing to Gely Walker and TANJA fontenot to view and advise. Karen Agee RN * Telephone Encounter - Jamila Stockton - 07/24/2023 0832 EDT Endocrinology Incoming Call Reason for call: Caller states she has been having high blood sugar issues, She had eye infection and had allergic reaction to an eye ointment and was given and antibiotic andfor the last week states this has really caused her blood sugar to run calista and would like to discuss this with a doctor not sure what she needs to do. Please advise Active Symptoms/Disease Management What is your most recent sugar value: 230 - states at highest it has been in 300's When was the blood sugar reading taken: this morning Are you ? No Concerning factors: No concerns for hyperglycemia/hypoglycemia/ketones- send ROUTINE priority to [facility] Endocrinology Nurse [address] Next Appointment: Visit date not found Last Office Visit: 10/16/2021 Breanna Flores MD Last Telehealth Encounter: 06/26/2023 Gely Walker NP documented in this encounter Plan of Treatment Not on file documented as of this encounter Visit Diagnoses Not on filedocumented in this encounter Care Teams Compensation Supervisor Relationship Specialty Start Date End Date Che Sharpe PA [address] [place] [address] [place] [phone] PCP - General 10/16/21 Terry Hall MD [address] [place] [phone] 07/02/14 documented as of this encounter
--- OUTSIDE RECORDS SUMMARY | 2024-01-03 01:08 | XMS_ITS | Clinical Summary ---
Author Organization [facility] Address [address] [place] [address] Care Team Providers Care Screenplay Writer Name Role Phone Terry Hall MD Unavailable [...] cartridgeIndication s:Type 1 diabetes mellitus with hyperglycemia ([facility]-CMS) Inject 1 Each into the skin once [...] hyperglycemia, with long-term current use of insulin ([facility]) Inject 18 Units into the skin as needed (daily for pump failure). 3 mL 06/24/2022 Active insulin pen needles 31G x 3/16 Use as directed as needed for Other (pump failure). Brand: BD Ultra Fine Mini 20 Each 06/24/2022 Active insulin pump cart,automated,BT (OMNIPOD 5 G6 PODS, GEN 5,) cartridgeIndication s:Type 1 diabetes mellitus with hyperglycemia ([facility]-CMS) Inject 1 Each into the skin every [...] hyperglycemia, with long-term current use of insulin ([facility]-CMS) CHANGE EVERY 10 DAYS 3 Each 09/09/2023 Active DEXCOM G6 TRANSMITTER deviceIndications:T ype 2 diabetes mellitus with hyperglycemia, with long-term current use of insulin ([facility]) CHANGE DIRECTED EVERY 3 MONTHS 1 Each 10/02/2023 Active Active Problems Patient Care Coordination No te Formatting of this note migh t be different from the original. Patient has given permission for the [facility] to verbally discuss the following information [...] hyperglycemia, with long-term current use of insulin ([facility]) 09/23/2014 Overview: ICD10 Update Auto Replacement Last [...] on accuracy of carb counting at supper. Surgical History Surgery Date Site/Laterality Comments CHOLECYSTECTOMY Medical History Medical History Date Comments Diabetes mellitus ([facility]) Social History Tobacco Use Types Packs/Day Years [...] Choose not to disclose 2023 15:46 EST Obstetrics History Last Filed Vital Signs Vital Sign Reading [...] Body Mass Index 29.2 10/16/2021 0848 EDT Plan of Treatment Health Maintenance Due Date Last Done Comments Eye Exam 1981 Hepatitis B Vaccine (1 of 3 - 19+ 3-dose series) 02/28/2000 Foot Exam 09/24/2015 09/23/2014 Lipid Profile Screening (Cholesterol) 08/09/2016 08/10/2015, 01/16/2006 Microalbumin/Creatinine Ratio 08/09/2016 08/10/2015 Hemoglobin A1C (Ha1C) 12/21/2022 06/20/2022 , 10/16/2021, 10/16/2021, Additional history exists COVID-19 Vaccine ( - 2022-2 4 season) 2023 03/06/2021, 08/08/2020, 07/13/2020 Hepatitis C Screen Completed 08/09/2020 Procedures Procedure Name Priority Date/Time Associated Diagnosis Comments HEMOGLOBIN A1C Routine 06/20/2022 15:32 EST HEPATITIS C AB W REFLEX TO HCV RNA BY PCR Routine 08/09/2020 9:46 EDT LIPID PROFILE (INCLUDES CHOLESTEROL, TRIGLYCERIDES, HDL, LDL) Routine 08/10/2015 14:11 EDT Type 2 diabetes mellitus with hyperglycemia ([facility]-HCC) ([facility]) URINE [id number] NE RATIO (ACR) Routine 08/10/2015 14:11 EDT Type 2 diabetes mellitus with hyperglycemia (CMS-HCC) ([facility]) from Last 3 Months or Most Recently Relevant to Health Maintenance Results * (ABNORMAL) HEMOGLOBIN A1C (06/20/2022 15:32 EST) Hemoglobin A1c 6.7(H) <5.7 % 06/21/2022 11:22 EST [facility] Comment: Glycemic Status References: Normal: ??<5.7% Pre-Diabetes: ??5.7% - 6.4% Diagnostic of Diabetes: ??> or = 6.5% (if confirmed) Est Avg Glucose 146 mg/dL 11:22 EST [facility] Comment:The eAG represents t he A1c result expressed as average glucose in mg/dL. Blood VENOUS BLOOD / Unknown 06/20/2022 15:32 EST 06/20/2022 22:25 EST Provider Outr Resulting Lab CHEMISTRY & BLOOD GAS ORDERABLES Performing Organization Address City/[facility]/ZIP Co de Phone Number [facility] [address] [place] [address] * HEPATITIS C AB W REFLEX TO HCV RNA BY PCR (08/09/2020 9:46 EDT) Hep C Antibody Negative Negative 08/10/2020 9:48 EDT [facility] Blood VENOUS BLOOD / Unknown 08/09/2020 9:46 EDT 08/09/2020 21:13 EDT Provider Outr Resulting Lab CHEMISTRY & BLOOD GAS ORDERABLES Performing Organization Address [facility] Co de Phone Number [facility] [address] [place] [address] * ALBUMIN, URINE (08/10/2015 14:11 EDT) Creatinine, Urn [place] 104.2 mg/dl 08/11/2015 9:20 EDT [facility] Ur Albumin mg/dl 0.8 mg/dl 08/11/2015 12:30 EDT [facility] Ur Alb ug/mg Crea 7.7 ug/mg Crea 08/11/2015 12:30 EDT [facility] Comment: Normal: <30 ug/mg creat High albuminuria: 30-300 ug/mg creat Very high albuminuria: >300 ug/mg creat Urine specimen (specimen) URINE / Unknown 08/10/2015 14:11 EDT 08/10/2015 15:22 EDT Greta Galicia CODE ENFORCEMENT INSPECTOR CHEMISTRY & BLOOD G ORDERABLES Performing Organization Address City/[facility]/ZIP Co de Phone Number [facility] [address] [place] [address] * LIPID PROFILE (INCLUDES CHOLESTEROL, TRIGLYCERIDES, HDL, LDL) (08/10/2015 14:11 EDT) Cholesterol 234 mg/dl 08/10/2015 16:24 EDT [facility] Comment: Slight hemolysis Desirable:<200 Borderline High:200-239 High:>ev=669 Triglycerides 209 mg/dl 08/10/2015 16:24 T [facility] Comment: Slight hemolysis Normal:<150 Borderline High:150-199 High:200-499 Very High:>gi=283 HDL 49 mg/dl 08/10/2015 16:24 T [facility] Comment: Slight hemolysis Low:<40 Normal:40-60 Desirable: >60 LDL, Calculated 143 mg/dl 6 16:24 T [facility] Comment: Optimal:<100 Near Optimal:100-129 Borderline High:130-159 High:160-189 Very High:>mo=477 Chol/HDL Ratio 4.8 08/10/2015 16:24 T [facility] Fasting? Unknown 08/10/2015 14:11 EDT [facility] Non HDL Cholesterol 185 mg/dl 08/10/2015 16:24 T [facility] Comment: Slight hemolysis Desirable:<130 Borderline:130-159 High: 160-189 Very High: >lz=551 Blood specimen (specimen) BLOOD SPECIMEN / Unknown 08/10/2015 14:11 EDT 08/10/2015 15:20 EDT Greta Galicia NP CHEMISTRY & BLOOD G ORDERABLES Performing Organization Address City/[facility]/ZIP Co de Phone Number [facility] [address] [place] [address] from Last 3 Months or Most Recently Relevant to Health Maintenance Care Teams Screenplay Writer Relationship Specialty Start Date End Date Che Sharpe PA [address] [place] [address] [place] [address] PCP - General 10/16/21 Terry Hall MD [address] [place] [id number] 07/02/14
--- OUTSIDE RECORDS SUMMARY | 2024-01-03 01:08 | XMS_ITS | Encounter Summary ---
Author Organization [facility] Address [address] [place] [address] Care Team Providers Care Engineering Technologist Name Role Phone Terry Hall MD Unavailable Che Sharpe Primary Care Provider + Reason for Visit * Reason Onset Date Comments Medications Refill 11/06/2022 Encounter Details Date Type Department Care Team (Late st Contact Info) Description 11/06/2022 Refill [facility] Endocrinology - [facility] [address] [place] [address] Gely Walker, REFRIGERATION TECH 62 [facility] [address] [place] [address] Medications Refill Social History Tobacco [...] Refills Start Date End Da te Blood-Glucose Transmitter (DEXCOM G6 TRANSMITTER) deviceIndications:Type 2 diabetes mellitus with hyperglycemia, with long-term current use of insulin (HCC-CMS),Type 1 diabetes mellitus with hyperglycemia (HCC-CMS) 1 Each by misc (non-drug; combo route) route every 3 months. 1 Each 3 11/06/2022 09/09/2023 documented in this encounter Miscellaneous Notes * Telephone Encounter - Mary WallisRn) RN - 11/06/2022 1311 EDT Pt last seen 07/05/2022. * Telephone Encounter - Sherlyn Preston MA - 11/06/2022 1256 EDT Images from the original note were not included. We received a fax from [facility] requesting a refill for Dexcom G6 Transmitter. Please review appropriately. documented in this encounter Plan of Treatment [...] combo route) route every 3 months. Reorder 10/16/2021 11/06/2022 documented as of this encounter Care Teams Engineering Technologist Relationship Specialty Start Date End Date Che Sharpe PA [address] [place] [address] [place] [address] PCP - General 10/16/21 Terry Hall MD [address] [place] [phone] 07/02/14 documented as of this encounter
--- OUTSIDE RECORDS SUMMARY | 2024-01-03 01:08 | XMS_ITS | Encounter Summary ---
Author Organization [facility] Address [address] [place] [address] Care Team Providers Care Senior Windows Engineer Name Role Phone Terry Hall MD Unavailable Che Sharpe Primary Care Provider + Reason for Visit * Reason Onset Date Comments Medications Refill 12/18/2022 Encounter Details Date Type Department Care Team (Late st Contact Info) Description 12/18/2022 Refill [facility] Endocrinology - [facility] [address] [place] [address] Gely Walker, UNDERWATER TRAPPER 62 [facility] [address] [place] [address] Medications Refill Social History Tobacco [...] Dispensed Refills Start Date End Da te semaglutide (OZEMPIC) 2 mg/dose (8 mg/3 mL) pen injector Inject 2 mg into the skin every 7 days. 9 mL 3 12/30/2022 documented in this encounter Miscellaneous Notes * Telephone Encounter - Mary WallisRn), RN - 12/18/2022 1313 EDT Pt last seen 11/08/2022, ozempic not addressed in OV note. * Telephone Encounter - Lexy Salinas MA - 12/18/2022 1305 EDT Images from the original note were not included. We received a fax from [facility] requesting a refill for OZEMPIC 2MG/DOSE. Please review appropriately thank you. documented in this encounter Plan of Treatment Not on file documented as of this encounter Visit Diagnoses Not on filedocumented in this encounter Discontinued Medications Medication Sig Discontinue Reason Start Date End Da te semaglutide (OZEMPIC) 2 mg/dose (8 mg/3 mL) pen injector Inject 2 mg into the skin every 7 days. Reorder 10/16/2021 12/18/2022 documented as of this encounter Care Teams Senior Windows Engineer Relationship Specialty Start Date End Date Che Sharpe PA [address] [place] [address] [place] [phone] PCP - General 10/16/21 Terry Hall MD [address] [place] [phone] 07/02/14 documented as of this encounter
--- OUTSIDE RECORDS SUMMARY | 2024-01-03 01:08 | XMS_ITS | Encounter Summary ---
Author Organization [facility] Address [address] [place] [address] Care Team Providers Care Billiard Player Name Role Phone Terry Hall MD Unavailable Che Sharpe Primary Care Provider + Encounter Details Date Type Department Care Team (Late st Contact Info) Description 06/24/2022 Orders Only [facility] Endocrinology - [facility] [address] [place] [address] Mikayla Barajas DO 62 [facility] [address] [place] [address] Type 2 diabetes mellitus with hyperglycemia, with long-term current use of insulin ([facility]) (Primary Dx) Social History Tobacco Use Types [...] Refills Start Date End Da te insulin pen needles 31G x 3/16 Use as directed as needed for Other (pump failure). Brand: BD Ultra Fine Mini 20 Each 5 06/24/2022 insulin glargine (LANTUS SOLOSTAR/SEMGLEE) 100 unit/mL (3 mL) injection penIndications:Type 2 diabetes mellitus with hyperglycemia, with long-term current use of insulin ([facility]) Inject 18 Units into the skin as needed (daily for pump failure). 3 mL 5 06/24/2022 documented in this encounter Plan of Treatment Not on file documented as of this encounter Visit Diagnoses Diagnosis Type 2 diabetes mellitus with hyperglycemia, with long-term current use of insulin ([facility])- Primary documented in this encounter Discontinued Medications Medication Sig Discontinue Reason Start Date End Da te insulin glargine (LANTUS SOLOSTAR/SEMGLEE) 100 unit/mL (3 mL) injection penIndications:Type 2 diabetes mellitus with hyperglycemia, with long-term current use of insulin ([facility]) Inject 25 Units into the skin once daily. Reorder 10/20/2021 06/24/2022 documented as of this encounter Care Teams Billiard Player Relationship Specialty Start Date End Date Che Sharpe PA [address] [place] [address] [place] [address] PCP - General 10/16/21 Terry Hall MD [address] [place] [phone] 07/02/14 documented as of this encounter
--- OUTSIDE RECORDS SUMMARY | 2024-01-03 01:08 | XMS_ITS | Encounter Summary ---
Author Organization [facility] Address [address] [place] [address] Care Team Providers Care Shore Man Name Role Phone Terry Hall MD Unavailable Che Sharpe Primary Care Provider + Reason for Referral * Consult (Routine/Next Available) - Specialty Report Received Specialty Diagnoses / Procedures Referred By Luana landon Referred To Contact Endocrinology Diagnoses Type 2 diabetes mellitus with hyperglycemia, with long-term current use of insulin ([facility]) Mikayla Barajas, DO [address] [phone] [address] Referral ID Status Reason Start Date Expiration Date Visits Requested Visits Authorized [id number] Specialty Report Received Specialty Services Required 07/05/2022 1 1 Question Answer Reason for referral: omnipod 5, brush up, how to download, etc Type of Training: (Medicare requires Attending signature for MNT) Diabetes Self-Management Education/Training (DSME/T), Medical Nutrition Therapy (MNT) - (Medicare requires Attending signature for MNT) I certify I am managing the patient's diabetic condition. DSMT is needed to address the patient's medical condition. The topics selected are needed to ensure therapy compliance and provide the patient with skills/knowledge to help manage their diabetes. Yes Diabetes Self-Management Education/Training (DSME/T): Individual DSME/T Patients with special needs requiring individual (1:1) DSME/T No group session within 2 months of today? s date Diabetes Self-Management Education/Training (DSME/T): Initial DSME/T Time (number of hours requested): DSMT Initial: 10 hours DSME/T Topics: Managing blood glucose control, Medication management, Nutrition and diet management, Goal Setting, problem solving Medical Nutrition Therapy (MNT): Initial MNT Time (number of hours requested): MNT Initial: 3 hours Diagnosis: Type 2 Complications/Comorbidities: Obesity Encounter Details Date Type Department Care Team (Late st Contact Info) Description 07/05/2022 Orders Only [facility] Endocrinology - [address] [address] Gely Walker NP 62 [facility] [address] [place] [address] Type 2 diabetes mellitus with hyperglycemia, with long-term current use of insulin ([facility]) (Primary Dx) Social History Tobacco Use Types [...] as of this encounter Plan of Treatment Scheduled Referrals Name Type Priority Associated Diagnoses Order Schedule AMB CONS/FOLLOW UP DIABETES EDUCATION/MED NUTRITION THERAPY Outpatient Referral Routine/Next Available Type 2 diabetes mellitus with hyperglycemia, with long-term current use of insulin ([facility]) Expected: 08/05/2022 (Approximate) documented as of this encounter Visit Diagnoses Diagnosis Type 2 diabetes mellitus with hyperglycemia, with long-term current use of insulin ([facility])- Primary documented in this encounter Care Teams Shore Man Relationship Specialty Start Date End Date Che Sharpe PA [address] [place] [address] [place] [phone] PCP - General 10/16/21 Terry Hall MD [address] [place] [phone] 07/02/14 documented as of this encounter
--- OUTSIDE RECORDS SUMMARY | 2024-01-03 01:09 | XMS_ITS | Encounter Summary ---
Author Organization [facility] Address [address] [place] [address] Care Team Providers Care House Coordinator Name Role Phone Terry Hall MD Unavailable Yehuda Stallworth DO Primary Care Provider Encounter Details Date Type Department Care Team (Late st Contact Info) Description 10/26/2016 Orders Only [facility] Endocrinology - [facility] [address] [place] [address] Greta Galicia NP 62 [facility] [address] [place] [address] Type 2 diabetes mellitus with hyperglycemia, with long-term current use of insulin ([facility]) (Primary Dx) Social History Tobacco Use Types Packs/Day Years Used Date Smoking Tobacco: Former Alcohol Use Standard Drinks/Week Comments Not Asked 0 (1 standard drink = 0.6 oz [...] Dispensed Refills Start Date End Da te blood glucose (FREESTYLE INSULINX) test stripsIndications:Type 2 diabetes mellitus with hyperglycemia, with long-term current use of insulin ([facility]) Use 4 Strips as directed daily. 360 Each 3 10/26/2016 10/26/2017 documented in this encounter Plan of Treatment Not on file documented as of this encounter Visit Diagnoses Diagnosis Type 2 diabetes mellitus with hyperglycemia, with long-term current use of insulin ([facility])- Primary documented in this encounter Discontinued Medications Medication Sig Discontinue Reason Start Date End Da te exenatide microspheres 2 mg suspension,extended rel reconIndications:Type 2 diabetes mellitus with hyperglycemia, with long-term current use of insulin ([facility]) Inject 2 mg into the skin every 7 days. Please instruct Pt on pen use 09/19/2016 10/26/2016 documented as of this encounter Care Teams House Coordinator Relationship Specialty Start Date End Date Yehuda Stallworth DO [address] [place] [address] PCP - General 05/15/16 10/15/21 Terry Hall MD [address] [place] [phone] 07/02/14 documented as of this encounter
--- OUTSIDE RECORDS SUMMARY | 2024-01-03 01:09 | XMS_ITS | Encounter Summary ---
Author Organization [facility] Address [address] [place] [address] Care Team Providers Care Intensive Care Unit Nurse Name Role Phone Terry Hall MD Unavailable Yehuda Stallworth DO Primary Care Provider Che Sharpe Primary Care Provider + Encounter Details Date Type Department Care Team (Late st Contact Info) Description 03/28/2020 Lab Requisition [facility] Pathology & Laboratory Medicine - [address] [id number] Outr Resulting Lab, Provider Social History Tobacco [...] Procedure Name Priority Date/Time Associated Diagnosis Comments CHLAMYDIA/N. GONORRHOEAE AMPLIFIED NUCLEIC ACID Routine 03/28/2020 14:49 EST documented in this encounter Results * CHLAMYDIA/N. GONORRHOEAE AMPLIFIED RNA (03/28/2020 14:49 EST) Neisseria gonorrhoeae Result Negative Negative 03/29/2020 13:18 EST [facility] Chlamydia trachomatis Result Negative Negative 03/29/2020 13:18 EST [facility] Swab ENTIRE VAGINA / Unknown 03/28/2020 14:49 EST 03/28/2020 23:00 EST Provider Outr Resulting Lab MICROBIOLOGY - GENERAL ORDERABLES [facility] [address] [place] [address] documented in this encounter Visit Diagnoses Not on filedocumented in this encounter Care Teams Intensive Care Unit Nurse Relationship Specialty Start Date End Date Yehuda Stallworth DO [address] [place] [phone] PCP - General 05/15/16 10/15/21 Che Sharpe PA [address] [place] [address] [place] [phone] PCP - General 10/16/21 Terry Hall MD [address] [place] [phone] 07/02/14 documented as of this encounter
--- OUTSIDE RECORDS SUMMARY | 2024-01-03 01:09 | XMS_ITS | Encounter Summary ---
Author Organization [facility] Address [address] [place] [address] Care Team Providers Care Back End Architect Name Role Phone Terry Hall MD Unavailable Yehuda Stallworth DO Primary Care Provider Reason for Visit * Reason Onset Date Comments Blood Glucose Review 10/18/2016 Encounter Details Date Type Department Care Team (Late st Contact Info) Description 10/18/2016 Telephone [facility] Endocrinology - [facility] [address] [place] [address] Camila Sewell CDE 62 [facility] [address] [place] [address] Blood Glucose Review Social History Tobacco Use Types Packs/Day Years [...] Notes * Telephone Encounter - Camila Sewell RN-CDE - 10/19/2016 1617 EDT Left message for Emma, numbers look good. Follow up as needed. * Telephone Encounter - Andrew Núñez - 10/18/2016 1434 EDT Patient calling in sugars levels to Camila: 6.22.17 11:31 106 Taken lantus and after ate 55 2:42 160 7:25 168 10:04pm 182 6.23.17 11:41am 107 2:07pm 110 10:08pm 195 after eaten 6.25 12:48pm 170 7:53pm 180 6.27 10:49am 239 10:50am took Lantus 2:12pm 104 3:57 108 9:00pm 106 9.29 12:15pm 135 documented in this encounter Plan of Treatment Not on file documented as of this encounter Visit Diagnoses Not on filedocumented in this encounter Care Teams Back End Architect Relationship Specialty Start Date End Date Yehuda Stallworth DO [address] [place] [phone] PCP - General 05/15/16 10/15/21 Terry Hall MD [address] [place] [phone] 07/02/14 documented as of this encounter
--- OUTSIDE RECORDS SUMMARY | 2024-01-03 01:09 | XMS_ITS | Encounter Summary ---
Author Organization [facility] Address [address] [place] [address] Care Team Providers Care Gerontology Aide Name Role Phone Terry Hall MD Unavailable Che Sharpe Primary Care Provider + Reason for Visit * Reason Onset Date Comments Appointment Related 12/26/2021 Encounter Details Date Type Department Care Team (Late st Contact Info) Description 12/26/2021 Telephone [facility] Endocrinology - [facility] [address] [place] [address] Camila Sewell CDE 62 [facility] [address] [place] [address] Appointment Related Social History Tobacco [...] Miscellaneous Notes * Telephone Encounter - Che Malcolm - 01/15/2022 0938 EDT Contacted patient and LMOM regarding appointment with Camila Sewell needing to be rescheduled- Camila does not provide carb counting/nutrician education PSS held 01/26 zoom at 2pm with Riddhi to schedule patient with. Please confirm date/time and sendhigh priority msg to PSS to reschedule cxld apt from 01/17. Per provider: My 4pm on is referred for carb counting and help connecting her omnipod to glooko. As you know the carb counting training is best done with one of our RDs. I am wondering if she can be scheduled with Riddhi or Mari? Thanks. Camila * Telephone Encounter - Tiff Soto MA - 12/26/2021 1507 EDT Referral has been assigned to appointment * Telephone Encounter - Luciana Licea - 12/26/2021 1322 EDT [employer] [employer] unable to link referral to 01/17 CDE appt documented in this encounter Plan of Treatment Not on file documented as of this encounter Visit Diagnoses Not on filedocumented in this encounter Care Teams Gerontology Aide Relationship Specialty Start Date End Date Che Sharpe PA [address] [place] [address] [place] [phone] PCP - General 10/16/21 Terry Hall MD [address] [place] [phone] 07/02/14 documented as of this encounter
--- OUTSIDE RECORDS SUMMARY | 2024-01-03 01:09 | XMS_ITS | Encounter Summary ---
Author Organization [facility] Address [address] [place] [address] Care Team Providers Care Validation Manager Name Role Phone Terry Hall MD Unavailable Yehuda Stallworth DO Primary Care Provider Che Sharpe Primary Care Provider + Encounter Details Date Type Department Care Team (Late st Contact Info) Description 08/09/2020 Lab Requisition [facility] Pathology & Laboratory Medicine - [facility] [address] [place], [place] [phone] Outr Resulting Lab, Provider Social History Tobacco [...] No 05/23/2016 Cognitive Status Response Date of Assess ent Because of a physical, menta l, or emotional condition, does this person have serious difficulty concentrating, remembering, or making decisions? No 05/23/2016 documented as of this encounter Plan of Treatment Not on file documented as of this encounter Procedures Procedure Name Priority Date/Time Associated Diagnosis Comments HEPATITIS C AB W REFLEX TO HCV RNA BY PCR Routine 08/09/2020 9:46 EDT HEPATITIS B SURFACE ANTIGEN Routine 08/09/2020 9:46 EDT HIV 1/2 ANTIGEN AND ANTIBODY, 4TH GENERATION Routine 08/09/2020 9:46 EDT documented in this encounter Results * HIV 1/2 ANTIGEN AND ANTIBODY, 4TH GENERATION (08/09/2020 9:46 EDT) HIV 1 and 2 Antibody/p24 Antigen, 4th Generation Negative Negative 08/10/2020 10:11 EDT [facility] Comment: If acute HIV-1 infection is suspected in a high risk ??patient, submit plasma specimen for HIV-1 RNA quantitation test. Fourth Generation assay performed on the Siemens G.I. Windowsaur. Blood VENOUS BLOOD / Unknown 08/09/2020 9:46 EDT 08/09/2020 21:13 EDT Provider Outr Resulting Lab IMMUNOLOGY A ND SEROLOGY ORDERABLES Performing Organization Address City/State/[facility] Co de Phone Number [facility] [address] [place] [address] * HEPATITIS C AB W REFLEX TO HCV RNA BY PCR (08/09/2020 9:46 EDT) Hep C Antibody Negative Negative 08/10/2020 9:48 EDT [facility] Blood VENOUS BLOOD / Unknown 08/09/2020 9:46 EDT 08/09/2020 21:13 EDT Provider Outr Resulting Lab CHEMISTRY & BLOOD GAS ORDERABLES [facility] [address] [place] [address] * HEPATITIS B SURFACE ANTIGEN (08/09/2020 9:46 EDT) Hep B Surface Ag Negative Negative 08/10/2020 9:39 EDT [facility] Blood VENOUS BLOOD / Unknown 08/09/2020 9:46 EDT 08/09/2020 21:13 EDT Provider Outr Resulting Lab CHEMISTRY & BLOOD GAS ORDERABLES Performing Organization Address City/[facility] Co de Phone Number [facility] [address] [place] [address] documented in this encounter Visit Diagnoses Not on filedocumented in this encounter Care Teams Validation Manager Relationship Specialty Start Date End Date Yehuda Stallworth DO [address] [place] [phone] PCP - General 05/15/16 10/15/21 Che Sharpe PA [address] [place] [address] [place] [phone] PCP - General 10/16/21 Terry Hall MD [address] [place] [phone] 07/02/14 documented as of this encounter
--- OUTSIDE RECORDS SUMMARY | 2024-01-03 01:09 | XMS_ITS | Encounter Summary ---
Author Organization [facility] Address [address] [place] [address] Care Team Providers Care Business Services Manager Name Role Phone Terry Hall MD Unavailable Yehuda Stallworth DO Primary Care Provider Encounter Details Date Type Department Care Team (Late st Contact Info) Description 09/19/2016 Orders Only [facility] Endocrinology - [facility] [address] [place] [address] Greta Galicia NP 62 [facility] [address] [place] [address] Type 2 diabetes mellitus with hyperglycemia, with long-term current use of insulin ([facility]) (Primary Dx) Social History Tobacco Use [...] Dispensed Refills Start Date End Da te exenatide microspheres 2 mg suspension,extended rel reconIndications:Type 2 diabetes mellitus with hyperglycemia, with long-term current use of insulin ([facility]) Inject 2 mg into the skin every 7 days. Please instruct Pt on pen use 4 Each 11 09/19/2016 10/26/2016 documented in this encounter Progress Notes * Greta Galicia NP - 09/19/2016 1442 EDT Trulicity not covered by insurance. Bydureon is. Have changed order to bydureon documented in this encounter Plan of Treatment Not on file documented as of this encounter Visit Diagnoses Diagnosis Type 2 diabetes mellitus with hyperglycemia, with long-term current use of insulin ([facility])- Primary documented in this encounter Discontinued Medications Medication Sig Discontinue Reason Start Date End Da te dulaglutide 0.75 mg/0.5 mL pen injectorIndications:Type 2 diabetes mellitus with hyperglycemia, with long-term current use of insulin ([facility]) Inject 0.75 mg into the skin every 7 days. 09/12/2016 09/19/2016 documented as of this encounter Care Teams Business Services Manager Relationship Specialty Start Date End Date Yehuda Stallworth DO [address] [place] [phone] PCP - General 05/15/16 10/15/21 Terry Hall MD [address] [place] [phone] 07/02/14 documented as of this encounter
--- OUTSIDE RECORDS SUMMARY | 2024-01-03 01:09 | XMS_ITS | Encounter Summary ---
Author Organization [facility] Address [address] [place] [address] Care Team Providers Care Power Lineman Technician Name Role Phone Terry Hall MD Unavailable Yehuda Stallworth DO Primary Care Provider Che Sharpe Primary Care Provider + Encounter Details Date Type Department Care Team (Late st Contact Info) Description 08/06/2019 Lab Requisition [facility] Pathology & Laboratory Medicine - [address] [address] Unknown, Provider, Social History Tobacco Use Types Packs/Day Years [...] Procedure Name Priority Date/Time Associated Diagnosis Comments ROMY INFLUENZA A AND B, RSV PCR Routine 08/06/2019 9:00 EDT documented in this encounter Results * INPATIENT/OUTPATIENT INFLUENZA, RSV PCR (08/06/2019 9:00 EDT) FLU A RNA Result (FLARES) Negative Negative 08/07/2019 12:38 EDT [facility] FLU B RNA Result (FLBRES) Negative Negative 08/07/2019 12:38 EDT [facility] RSV RNA Result (RSVRES) Negative Negative 08/07/2019 12:38 EDT [facility] Swab ENTIRE NASOPHARYNX / Unknown 08/06/2019 9:00 EDT 08/06/2019 18:56 EDT Provider Unknown MICROBIOLOGY - GENER AL ORDERABLES Performing Organization Address City/State/[facility] Co de Phone Number [facility] [address] [place] [address] documented in this encounter Visit Diagnoses Not on filedocumented in this encounter Care Teams Power Lineman Technician Relationship Specialty Start Date End Date Yehuda Stallworth DO [address] [place] [phone] PCP - General 05/15/16 10/15/21 Che Sharpe PA [address] [place] [address] [place] [phone] PCP - General 10/16/21 Terry Hall MD [address] [place] [phone] 07/02/14 documented as of this encounter
--- OUTSIDE RECORDS SUMMARY | 2024-01-03 01:09 | XMS_ITS | Encounter Summary ---
Author Organization [facility] Address [address] [place] [address] Care Team Providers Care Chef'S Assistant Name Role Phone Terry Hall MD Unavailable Yehuda Stallworth DO Primary Care Provider Che Sharpe Primary Care Provider + Encounter Details Date Type Department Care Team (Late st Contact Info) Description 03/16/2020 Lab Requisition [facility] Pathology & Laboratory Medicine - [address] [phone] Outr Resulting Lab, Provider Social History Tobacco [...] Procedure Name Priority Date/Time Associated Diagnosis Comments ZZCOVID-19 TEST [facility] PCR After X-Ray 02/17/2020 10:53 EDT COVID-19 TESTING After X-Ray 02/17/2020 10:5 3 EDT documented in this encounter Results * COVID-19 TEST [facility] PCR (02/17/2020 10:53 EDT) COVID-19 rt-PCR Result Negative Negative 04/12/2020 7:22 EST [facility] Comment:Negative results do not preclude 2019-nCoV infection and should not be used as the sole basis for treatment or other patient management decisions. Negative results must be combined with clinical observations, patient history, and epidemiological information. Swab ENTIRE NASOPHARYNX / Unknown 02/17/2020 10:53 EDT 04/03/2020 10:19 EST Provider Outr Resulting Lab MICROBIOLOGY - GENERAL ORDERABLES [facility] [address] [place] [address] * COVID-19 TESTING (02/17/2020 10:53 EDT) COVID-19 rt-PCR Result Negative Negative 04/12/2020 7:23 EST [facility] Comment:Negative results do not preclude 2019-nCoV infection and should not be used as the sole basis for treatment or other patient management decisions. Negative results must be combined with clinical observations, patient history, and epidemiological information. Performing Lab [facility] 04/12/2020 7:23 EST [facility] Swab 02/17/2020 10:5 3 EDT 04/03/2020 10:19 EST Provider Outr Resulting Lab MICROBIOLOGY - GENERAL ORDERABLES [facility] [address] [place] [address] documented in this encounter Visit Diagnoses Not on filedocumented in this encounter Care Teams Chef'S Assistant Relationship Specialty Start Date End Date Yehuda Stallworth DO [address] [place] [phone] PCP - General 05/15/16 10/15/21 Che Sharpe PA [address] [place] [phone] PCP - General 10/16/21 Terry Hall MD [address] [place] [phone] 07/02/14 documented as of this encounter
--- OUTSIDE RECORDS SUMMARY | 2024-01-03 01:09 | XMS_ITS | Encounter Summary ---
Author Organization [facility] Address [address] [place] [address] Care Team Providers Care Nissan Sales Consultant Name Role Phone Terry Hall MD Unavailable Yehuda Stallworth DO Primary Care Provider Reason for Visit * Reason Onset Date Comments Medication Questions 10/03/2016 byduriclarissa pe n Encounter Details Date Type Department Care Team (Late st Contact Info) Description 10/03/2016 Telephone [facility] Endocrinology - [facility] [address] [place] [address] Greta Galicia NP [address] [facility] [address] [place] [address] Medication Questions (bydurian pen) Social History Tobacco Use Types Packs/Day Years [...] encounter Miscellaneous Notes * Telephone Encounter - Crystal Puente, RN - 10/03/2016 1337 EDT Spoke with Emma who wondered if the Bydureon should not be taken at same time as Lantus. I said that Budureon is not insulin and taken once weekly works differently than her Lantus./KAMINI * Telephone Encounter - Camila Hair V. - 10/03/2016 1227 EDT Reason for Call: Medication Questions (bydurian pen) Summary/Symptoms: Patient has questions about how often she should be using her bydurian pen Camila Hair 10/03/2016 12:27 documented in this encounter Plan of Treatment Not on file documented as of this encounter Visit Diagnoses Not on filedocumented in this encounter Care Teams Nissan Sales Consultant Relationship Specialty Start Date End Date Yehuda Stallworth DO [address] [place] [phone] PCP - General 05/15/16 10/15/21 Terry Hall MD [address] [place] [phone] 07/02/14 documented as of this encounter
--- OUTSIDE RECORDS SUMMARY | 2024-01-03 01:09 | XMS_ITS | Encounter Summary ---
Author Organization [facility] Address [address] [place] [address] Care Team Providers Care Manager Landscape Name Role Phone Terry Hall MD Unavailable Yehuda Stallworth DO Primary Care Provider Reason for Visit * Reason Onset Date Comments Medication Problem 10/25/2016 Encounter Details Date Type Department Care Team (Late st Contact Info) Description 10/25/2016 Telephone [facility] Endocrinology - [facility] [address] [place] [address] Greta Galicia NP [address] [facility] [address] [place] [phone] Medication Problem Social History Tobacco Use Types [...] encounter Miscellaneous Notes * Telephone Encounter - Shaila Raya CDE - 10/29/2016 1435 EDT Spoke with pt who reports feeling much better now. bydureon was added to allergy list Pt reports blood sugars now in 150 range and is advised to resume lantus but at 13 units. She will call us next week so we can titrate lantus. She will self refer to [facility] since she is now living in [place] Pt verbalized understanding. * Telephone Encounter - Greta Galicia NP - 10/25/2016 1626 EDT Tried to call Pt, Re: N/V from [facility]. Left message. Stop Bydureon. Will take a week for drug to leave system. Please call with blood sugars as well as current GI Sx. Restart Lantus when blood sugars rise over 150. Additionally following message was not conveyed to Pt: Consider CMP and Lipase if Sx persist, ER visit if severe dehydration * Telephone Encounter - Greta Galicia [employer] - 10/25/2016 1622 EDT Tried to call Pt, Re: N/V from [facility]. Left message. Stop Bydureon. Will take a week for drug to leave system. Please call with blood sugars as well as current GI Sx. Restart Lantus when blood sugars rise over 150. Additionally following message was not conveyed to Pt: Consider CMP and Lipase if Sx persist, ER visit if severe dehydration * Telephone Encounter - Shaila Raya CDE - 10/25/[address] Davenport. We can order cmp, amylase,lipase if indicated. Pt needs to notify pcp as well. Left detailed vm on listed phone to call clinic, even after 5 pm. May need labs,definitely needs todiscontinue bydureon. Discussed issue with Anju Turner RN, who had conversation with friend, sanjeev and was last night after injeciton, feels ok today. * Telephone Encounter - Shaila Raya CDE - 10/25/2016 1610 EDT Left message to call us back. Will forward to provider to see if she needs labs at this point. Willmake sure pt understands not to continue this medication. Most likely will need to resume insulin and to review her blood sugars. * Telephone Encounter - Anju Turner RN - 10/25/2016 1600 EDT Nurse friend -Carlos called . Emma is reacting to Bydureon. She took 4th dose last nite. Symptoms severe nausea , stabbing abdominal pain, diarrhea, HATCH . Her previous notes from [facility] indicate not totake Lantus if BG <150. According to Carlos she has not taken Lantus for 3 weeks. Last BS today 90- 144 Attempted to call Lawanda to obtain BG for the last 5 days. Left message. Suggested to stop Bydureon until hearing from this office. * Telephone Encounter - Andrew Núñez - 10/25/2016 1447 EDT Patient would like a call back regarding her glucose numbers and her insulin she is taking. documented in this encounter Plan of Treatment Not on file documented as of this encounter Visit Diagnoses Not on filedocumented in this encounter Care Teams Manager Landscape Relationship Specialty Start Date End Date Yehuda Stallworth DO [address] [facility] [place] [phone] PCP - General 05/15/16 10/15/21 Terry Hall MD [address] [place] [phone] 07/02/14 documented as of this encounter
--- OUTSIDE RECORDS SUMMARY | 2024-01-03 01:09 | XMS_ITS | Encounter Summary ---
Author Organization [facility] Address [address] [place] [address] Care Team Providers Care Telesales Supervisor Name Role Phone Terry Hall MD Unavailable Yehuda Stallworth DO Primary Care Provider Reason for Visit * Reason Onset Date Comments Follow-up 10/09/2016 Encounter Details Date Type Department Care Team (Late st Contact Info) Description 10/09/2016 Telephone [facility] Endocrinology - [facility] [address] [place] [address] Camila Sewell CDE [address] [facility] [address] [place] [address] Follow-up Social History Tobacco Use Types Packs/Day [...] Notes * Telephone Encounter - Camila Sewell RN-AVIVAE - 10/09/2016 1520 EDT Spoke to Emma. Take lantus once a day. Start with 13 units and call in 2 days and we will titrate her dose upward. Patient verbalized understanding. No barriers to learning noted. * Telephone Encounter - Crystal Puente RN - 10/09/2016 1319 EDT Date Fasting Lunch Dinner HS Other 10/09 182 10/08 207 (13U) 188 (13 U) 179 10/07 10/06 174 (26 U ) [facility] stated she is taking Lantus 3 times daily - !! * Telephone Encounter - Camila Sewell RN-TANJA - 10/09/2016 1309 EDT Telephone call to Emma to follow up on bs readings. Requested call back. documented in this encounter Plan of Treatment Not on file documented as of this encounter Visit Diagnoses Not on filedocumented in this encounter Care Teams Telesales Supervisor Relationship Specialty Start Date End Date Yehuda Stallworth DO [address] [place] [phone] PCP - General 05/15/16 10/15/21 Terry Hall MD [address] [place] [phone] 07/02/14 documented as of this encounter
--- OUTSIDE RECORDS SUMMARY | 2024-01-03 01:09 | XMS_ITS | Encounter Summary ---
Author Organization [facility] Address [address] [place] [address] Care Team Providers Care Chemical Blender Name Role Phone Terry Hall MD Unavailable Yehuda Stallworth DO Primary Care Provider Reason for Visit * Reason Onset Date Comments Medication Management 10/05/2016 Hilary raines en Encounter Details Date Type Department Care Team (Late st Contact Info) Description 10/05/[address] [facility] Endocrinology - [facility] [address] [place] [address] Greta Galicia NP [address] [facility] [address] [place] [phone] Medication Management (Bydurian pen) Social History Tobacco Use Types Packs/Day [...] Telephone Encounter - Camila Sewell RN-CDE - 10/05/2016 1412 EDT Emma tells me that she had a low bs Last night @ 8pm. Bydureon first weekly dose was taken on . Her usual Lantus was taken at noon yesterday, ate small lunch as she usually does. She works nights so she typically would eat dinner around 8pm. She went to get up from her chair and felt sweaty,dizzy, knew she was about to pass out. Her boyfriend was there, and recognized that it was a low bsand got her to eat a glucose tablet. it 130 when paramedics tested after glucose. went back to 112 at the er. She has taken no insulin today at all. Today bs 137 waking noon, still feeling low. Typical pattern for bs readings is 200-300, so I explained it will be difficult for her to tell when she is acutally low, or low for her (130's) It is very important to test, she should test at least 4 times a day through the weekend. She can resume her lantus at a reduced dose once her bs are above 150. She should take 13 units, or50 % of her normal dose. We discussed care after hours and weekends. She will call Saturday with an update. * Telephone Encounter - Andrew Núñez - 10/05/2016 1403 EDT Patient calling to let us know she went to the [facility] emergency center in [place]. You had a seizure and went unconsious and had a seizure. Said the Bydurian pen Lantus may bring sugars down too much. They gave her a glucose strip and she came around and fine. They instructed her to take 1/2 dosage of Lantus for time being and told her to call us about the medication and what to do. She would like a call back. documented in this encounter Plan of Treatment Not on file documented as of this encounter Visit Diagnoses Not on filedocumented in this encounter Care Teams Chemical Blender Relationship Specialty Start Date End Date Yehuda Stallworth DO [address] [place] [phone] PCP - General 05/15/16 10/15/21 Terry Hall MD [address] [place] [phone] 07/02/14 documented as of this encounter
--- OUTSIDE RECORDS SUMMARY | 2024-01-03 01:09 | XMS_ITS | Encounter Summary ---
Author Organization [facility] Address [address] [place] [address] Care Team Providers Care Cnc Lathe Programmer Name Role Phone Terry Hall MD Unavailable Yehuda Stallworth DO Primary Care Provider Che Sharpe Primary Care Provider + Encounter Details Date Type Department Care Team (Late st Contact Info) Description 01/17/2021 Lab Requisition [facility] Pathology & Laboratory Medicine - [facility] [address] [place], [place] [phone] Outr Resulting Lab, Provider Social History Tobacco [...] Procedure Name Priority Date/Time Associated Diagnosis Comments FECAL BACTERIAL PATHOGENS BY PCR Routine 01/17/2021 13:52 EDT GIARDIA AND CRYPTOSPORIDIUM ANTIGENS Routine 01/17/2021 13:52 EDT OVA/PARASITE EXAM Routine 01/17/2021 13: 52 EDT documented in this encounter Results * GIARDIA AND CRYPTOSPORIDIUM ANTIGENS (01/17/2021 13:52 EDT) Giardia and Cryptosporidium Cryptosporidium Antigen Neg and Giardia Antigen Neg Cryptosporidium Antigen Neg and Giardia Antigen Neg 10:25 EDT [facility] Feces SPECIMEN FROM RECTUM / Unknown 01/17/2021 13:52 EDT 01/17/2021 21:45 EDT Provider Outr Resulting Lab MICROBIOLOGY - GENERAL ORDERABLES [facility] [address] [place] [address] * OVA/PARASITE EXAM (01/17/2021 13:52 EDT) Parasite No ova and parasites seen. 01/18/2021 12:25 EDT [facility] Feces SPECIMEN FROM RECTUM / Unknown 01/17/2021 13:52 EDT 01/17/2021 21:45 EDT Narrative [facility] - 01/18/2021 12:25 EDT (If Cryptosporidium, Cyclospora, or Microsporidium are suspected, specific tests must be requested.) Single negative specimen does not rule out the possibility of a parasitic infection. Provider Outr Resulting Lab MICROBIOLOGY - GENERAL ORDERABLES Performing Organization Address City/[facility]/ZIP Co de Phone Number [facility] [address] [place] [address] * FECAL BACTERIAL PATHOGENS BY PCR (01/17/2021 13:52 EDT) Salmonella PCR Negative Negative 01/18/2021 11:59 EDT [facility] Shigella/Enteroin vasive E. coli Negative Negative 01/18/2021 11:59 EDT [facility] HN LAB CAMPYLOBACTER PCR Negative Negative 01/18/2021 11:59 EDT [facility] Shiga Toxin PCR Negative Negative 11:59 EDT [facility] Feces SPECIMEN FROM RECTUM / Unknown 01/17/2021 13:52 EDT 01/17/2021 21:45 EDT Provider Outr Resulting Lab MICROBIOLOGY - GENERAL ORDERABLES Performing Organization Address City/[facility] Co de Phone Number [facility] [address] [place] [address] documented in this encounter Visit Diagnoses Not on filedocumented in this encounter Care Teams Cnc Lathe Programmer Relationship Specialty Start Date End Date Yehuda Stallworth DO [address] [place] [phone] PCP - General 05/15/16 10/15/21 Che Sharpe PA [address] [place] [address] [place] [phone] PCP - General 10/16/21 Terry Hall MD [address] [place] [phone] 07/02/14 documented as of this encounter
--- OUTSIDE RECORDS SUMMARY | 2024-01-03 01:09 | XMS_ITS | Encounter Summary ---
Author Organization [facility] Address [address] [place] [address] Care Team Providers Care Box Sealing Machine Feeder Name Role Phone Terry Hall MD Unavailable Che Sharpe Primary Care Provider + Reason for Visit * Reason Onset Date Comments Coordination Of Care 10/20/2021 Medications Refill 11/02/2021 Encounter Details Date Type Department Care Team (Late st Contact Info) Description 10/20/2021 Refill [facility] Endocrinology - [address] [address] Breanna Flores MD [address] [place] [address] [place] [phone] Coordination Of Care; Medications Refill Social History Tobacco Use Types [...] Date End Da te Insulin Syringe-Needle U-100 1 mL 29 gauge x 1/2 syringe Use 1 Syringe as directed daily. Brand: BD Ultrafine. For loading insulin pump reservoir 100 Each 12 10/24/2021 blood glucose test strips Use 3 Strips as directed daily. Brand: One Touch Ultra. E11.65. Pharmacy may substitute a different brand for insurance coverage. 300 Each 3 10/20/2021 ONE TOUCH DELICA 33 gauge misc Use 3 lancet as directed daily. E11.65. Pharmacy may substitute a different brand for insurance coverage. 300 Each 3 10/20/2021 ONETOUCH ULTRAMINI Use 1 Each as directed 3 times daily. E11.65. Pharmacy may substitute a different brand for insurance coverage. 1 Each 10/20/2021 ONETOUCH ULTRA2 METER Use as directed as needed (glucose monitoring). 1 Each 10/20/2021 insulin lispro (HUMALOG) 100 unit/mL vial Inject into the skin up to 75 units via insulin pump 30 mL 3 10/24/2021 05/29/2022 insulin glargine (LANTUS SOLOSTAR/SEMGLEE) 100 unit/mL (3 mL) injection penIndications:Type 2 diabetes mellitus with hyperglycemia, with long-term current use of insulin ([facility]) Inject 25 Units into the skin once daily. 30 mL 3 10/20/2021 06/24/2022 insulin lispro (HUMALOG KWIKPEN) 100 unit/mL injectable pen Inject 8 Units into the skin 3 times daily with meals. 30 mL 3 10/20/2021 12/07/2021 documented in this encounter Miscellaneous Notes * Telephone Encounter - Leda Rueda RN - 11/02/2021 0974 EDT Pt message: I???ve been in touch with the life skills educator Marichuy Quinones since last week about training to getstarted with my pump Omnipod 5. She faxed paperwork that needs to be signed off and needs some infoto get me started. I was curious if anyones looked at them? I???m anxious to get going with my pump. ?? Thank you! Per TE 10/31/21: Faxed Insulet Omnipod 5 Pump Therapy Order Form on 10/31/21 to [phone] [email or web address] message sent to pt. LEDA RUEDA RN 11/02/2021 9:58 * Telephone Encounter - Riddhi Charles RD - 10/20/2021 1022 EDT Called pt and LVM indicating that she would need to arrange training with omnipod Rep given that she has the Omnipod 5 * Telephone Encounter - Katie Echeverria RN - 10/20/2021 0935 EDT Called pt. She has a defective Dexcom Transmitter and no backup glucometer. Dexcom is sending her anew transmitter. This director underwriter sales will send a script for a glucometer to [facility] in [facility] for pt to use in interim and as backup to dexcom. Pt has received an Omnipod insulin pump she is not yet using. Pt advised that she should have an appt with a CDE to learn how to use and manage this device, connect it with her Dexcom CGM and link toclinic. Will route to PSS for CDE appt and to provider for script for pt to have vial insulin to use in pump. Pt also requesting that her insulin pens be sent to [facility] in [place]. They were inadvertently sent to [facility] in [place]. Pt asking about what to do with the pens if she will be using vial with her insulin pump. Pt deferred to CDEs ans to that question, and advised her taht when she picks up her insulin pens from pharmacy she can opt to take only a partial amount to avoid having too manypens that will not be used. Left [employer] message for pt to let her know that scripts have yamilex sent, and to let her know that ifthe pump she has is an Omnipod 5 then she will need to contact [employer] as the Omnipod reps are training on that pump. Routing to Dr. flores to order the correct insulin for use with Omnipod pump. Katie Echeverria RN Endocrinology * Telephone Encounter - Ned Anderson - 10/20/2021 0905 EDT Patient's transmitter starting giving them an error message yesterday and stopped working. Patient spoke with [employer] and they are sending another device but with the weekend they may not get it until the end of next week. Patient is worried because they have no way to test their BS in order to take insulin. Patient ate breakfast but is worried about their BS going too low. Patient wondering if temporary insulin and supplies can be called into pharmacy today because they are going out of town for long weekend. Patient is also supposed to get a pump and is worried about taking additional time off of work, plus a two hour drive, to come down and learn how to use it. Please call to discuss. documented in this encounter Plan of Treatment Not on file documented as of this encounter Visit Diagnoses Diagnosis Type 2 diabetes mellitus with hyperglycemia, with long-term current use of insulin ([facility])- Primary documented in this encounter Discontinued Medications Medication Sig Discontinue Reason Start Date End Da te insulin glargine (LANTUS SOLOSTAR/SEMGLEE) 100 unit/mL (3 mL) injection penIndications:Type 2 diabetes mellitus with hyperglycemia, with long-term current use of insulin ([facility]) Inject 25 Units into the skin once daily. Reorder 10/16/2021 10/20/2021 insulin lispro (HUMALOG KWIKPEN) 100 unit/mL injectable pen Inject 8 Units into the skin 3 times daily with meals. Reorder 10/16/2021 10/20/2021 documented as of this encounter Care Teams Box Sealing Machine Feeder Relationship Specialty Start Date End Date Che Sharpe PA [address] [place] [address] [place] [phone] PCP - General 10/16/21 Terry Hall MD [address] [place] [address] 07/02/14 documented as of this encounter
--- OUTSIDE RECORDS SUMMARY | 2024-01-03 01:09 | XMS_ITS | Encounter Summary ---
Author Organization [facility] Address [address] [place] [address] Care Team Providers Care Networker Name Role Phone Terry Hall MD Unavailable Che Sharpe Primary Care Provider + Reason for Visit * Reason Onset Date Comments DME 10/18/2021 Dexcom G6 Encounter Details Date Type Department Care Team (Late st Contact Info) Description 10/18/2021 Telephone [facility] Endocrinology - [facility] [address] [place] [address] Breanna Flores MD [address] [facility] [address] [place] [address] DME (Dexcom G6 ) Social History Tobacco Use Types Packs/Day Years [...] encounter Miscellaneous Notes * Telephone Encounter - Riddhi Charles RD - 10/18/2021 1716 EDT Pt plans to start the dexcom G6 independently. Did this with the gwendolyn 2 and pt feels comfortable doing this. Encouraged pt to visit dexcom website for tutorials as needed and to use the directions that arrived with the dexcom supplies. * Telephone Encounter - Jenn Diaz - 10/18/2021 1640 EDT Patient states she received her Dexcom G6 but will not receive the Insulin Pump until . Patient is inquiring if she can start using the Dexcom now or does she need to wait until she receives her Insulin Pump. Please call back to discuss. documented in this encounter Plan of Treatment Not on file documented as of this encounter Visit Diagnoses Not on filedocumented in this encounter Care Teams Networker Relationship Specialty Start Date End Date Che Sharpe PA [address] [place] [address] [place] [phone] PCP - General 10/16/21 Terry Hall MD [address] [place] [address] 07/02/14 documented as of this encounter
--- OUTSIDE RECORDS SUMMARY | 2024-01-03 01:09 | XMS_ITS | Encounter Summary ---
Author Organization [facility] Address [address] [place] [address] Care Team Providers Care Distribution Center Assistant Name Role Phone Terry Hall MD Unavailable Yehuda Stallworth DO Primary Care Provider Reason for Visit * Reason Comments Foot Pain Atraumatic right mere t pain, specifically in arch/heel Encounter Details Date Type Department Care Team (Late st Contact Info) Description 05/30/2019 8:38 EST - 05/30/2019 10:00 EST Emergency [facility] Emergency Department - [address] [id number] Socorro Samayoa, PACarmelinaC [address] [facility], [address] [place] [address] Plantar fasciitis (Primary Dx) Discharge Disposition: Home or Self Care Social History Tobacco Use Types Packs/Day Years [...] 15:46 EST documented as of this encounter Last Filed Vital Signs Vital Sign Reading Time Taken Comments Blood Pressure 126/79 05/30/2019 0836 EST Pulse - - Temperature 36.2 ??C (97.2 ??F) 05/30/2019 0836 EST Respiratory Rate 18 05/30/2019 0836 EST Oxygen Saturation 98% 05/30/2019 0836 EST Inhaled Oxygen Concentration - - Weight 72.6 kg (160 lb) 05/30/2019 0836 EST Height 162.6 cm (5' 4) 05/30/2019 0836 EST Body Mass Index 27.46 05/30/2019 0836 EST documented in this encounter Functional Status Functional Status Response [...] No 05/23/2016 documented as of this encounter Discharge Instructions * Discharge Instructions* Socorro Samayoa PA-C - 05/30/2019 9:41 EST Take ibuprofen 600 mg every 6 hours (with food) and tylenol 650-1000 mg every 4 hours (up to 3,000 mg maximum in 24 hours) as needed for pain. Apply ice to the foot if painful 30 min on and off. See attached stretches or tennis ball stretches. May use walking boot as needed for severe pain. [facility] or [facility] on [facility] for other concerns regarding returnto work or restrictions. * Attachments The following attachments cannot be sent through Care Everywhere. * Plantar Fasciitis (Haitian) * Arch Pain: Exercises (Haitian) documented in this encounter Medications at Time of Discharge Medication Sig Dispensed Refills Start Date End Date famotidine (PEPCID) 20 mg tablet Take 20 mg by mouth 2 times daily. augmented betamethasone dipropionate (DIPROLENE-AF) 0.05 % ointment Apply topically to affected area 2 times daily. 45 g 3 05/27/2016 10/16/2021 busPIRone (BUSPAR) 15 mg tablet Take 15 mg by mouth 2 times daily. 10/16/2021 colesevelam (WELCHOL) 625 mg tabletIndications:Type 2 diabetes mellitus with hyperglycemia ([facility]),Mixed hyperlipidemia Take 1 Tab by mouth 2 times daily with breakfast and dinner. 180 Tab 3 01/11/2016 10/16/2021 empagliflozin (JARDIANCE) 10 mg tablet Take 10 mg by mouth daily. 10/16/2021 insulin glargine (LANTUS SOLOSTAR) 100 unit/mL (3 mL) injection penIndications:Type 2 diabetes mellitus with hyperglycemia, with long-term current use of insulin ([facility]) Inject 28 Units into the skin once daily. 1 Box 3 09/12/2016 10/16/2021 liraglutide (VICTOZA 2-SHANA) 0.6 mg/0.1 mL (18 mg/3 mL) injectable pen Inject 1.2 mg into the skin once a week. 10/16/2021 oxymetazoline (AFRIN) 0.05 % nasal spray Instill 2 Sprays into right nostril 2 times daily. 10/16/2021 Urea 40 % cream Apply topically to affected area 2 times daily. If expensive- buy off amazon 40 g 3 05/23/2016 10/16/2021 documented as of this encounter Discharge Disposition Disposition Code Departure Means Destination Home or Self Assisted documented in this encounter Progress Notes * Moriah Gerber - 05/30/2019 0946 EST Emma Min is a 39 y.o. female seen in the [facility] Emergency Department 05/30/19. As part of routine care Emma Min was screened for substance use and depression. The results and interventions are as follows: Pt participated with no risk categories. Moriah Gerber # [id number] documented in this encounter ED Notes * Socorro Samayoa PA-C - 05/30/2019 0986 EST Images from the original note were not included. DOS: 05/30/2019 Chief Complaint Patient presents with ??? Foot Pain Atraumatic right foot pain, specifically in arch/heel HPI The patient is a 39 y.o. female who presents today with Foot Pain (Atraumatic right foot pain, specifically in arch/heel) Patient is 39-year-old female with history of depression, DM 2, presents to the ED for evaluation of right foot pain x3 to 4 days. Patient reports she works long 12-hour shift at [employer], and one morning woke up to get up for the morning and had severe pain in her right heel and arch. She reports initially symptoms improved after walking and some ibuprofen, but now seem to be more severe and constant despite walking and stretching and ibuprofen. Denies any injury. Denies any redness or swelling ankle pain knee pain or other complaints at this time. Foot Pain Associated symptoms: no back pain, no fever and no neck pain Review of Systems Review of Systems Constitutional: Negative for fever. Gastrointestinal: Negative for nausea and vomiting. Musculoskeletal: Positive for arthralgias and gait problem. Negative for back pain, joint swelling and neck pain. Skin: Negative for rash and wound. Allergic/Immunologic: Negative for immunocompromised state. Neurological: Negative for weakness, numbness and headaches. All other systems reviewed and are negative. The patient's past medical, family and social history was reviewed and updated as needed. Allergies Allergen Reactions ??? Seroquel [Quetiapine] Anaphylaxis All anti depressant medications ??? Bydureon [Exenatide Microspheres] Diarrhea and GI upset ??? Metformin GI upset ??? Lactose Diarrhea ??? Latex, Natural Rubber Swelling and Rash Vital Signs Temp: 36.2 ??C (97.2 ??F) Temp src: Temporal Heart Rate: 92 BPM Resp: 18 SpO2: 98 % BP: 126/79 BP Device: BP Machine BP Patient Position: Sitting BP Cuff Location: Right arm O2 Device: None (Room air) Physical Exam Constitutional: She appears well-developed and well-nourished. Musculoskeletal: Feet: Neurological: She is alert. Skin: Skin is warm and dry. Nursing note and vitals reviewed. RESULTS EKG orders: None Radiology orders: None Procedures ED COURSE A medical screening exam was performed. Patient is 39-year-old female with history of depression, DM 2, presents to the ED for evaluation of right foot pain x3 to 4 days. Symptoms and exam consistent with plantar fasciitis. Rest, ice, elevation, stretching, and provided 3D boot for immobilization if not improving. Final diagnoses: Plantar fasciitis DISPOSITION: Discharged The patient's pain was managed to an adequate level weighing risk vs. benefit of further medications. Upon departure from the Emergency Department, the patient's pain was 7 on a zero to ten scale. Any further pain treatment will be at the discretion of the provider following up with the patient based on their clinical assessment. Condition at departure from the Emergency Department: Stable PCP: Yehuda Amaro was available for supervision. 05/30/2019 9:57 No flowsheet data found. * Patti Denise RN - 05/30/2019 0953 EST Walking boot applied and reviewed with patient. Patient able to ambulate out of department with steady gait. * Patti Denise RN - 05/30/2019 0953 EST Discharge instructions reviewed and an AVS handout was provided to patient prior to discharge by this RN. Patient was given specific instructions as to when to return the Emergency Department if symptoms return and/or worsens. The patient had no questions or concerns after discharge education was provided. The patient ambulated with steady gait out of the department. documented in this encounter Plan of Treatment Not on file documented as of this encounter Visit Diagnoses Diagnosis Plantar fasciitis- Primary Plantar fascial fibromatosis documented in this encounter Historical Medications * This list may reflect changes made after this encounter. Medication Sig Dispensed Refills Start Date End Date famotidine (PEPCID) 20 mg tablet Take 20 mg by mouth 2 times daily. empagliflozin (JARDIANCE) 10 mg tablet Take 10 mg by mouth daily. 10/16/2021 liraglutide (VICTOZA 2-SHANA) 0.6 mg/0.1 mL (18 mg/3 mL) injectable pen Inject 1.2 mg into the skin once a week. 10/16/2021 oxymetazoline (AFRIN) 0.05 % nasal spray Instill 2 Sprays into right nostril 2 times daily. 10/16/2021 added in this encounter Care Teams Distribution Center Assistant Relationship Specialty Start Date End Date Yehuda Stallworth DO [address] [place] [phone] PCP - General 05/15/16 10/15/21 Terry Hall MD [address] [place] [phone] 07/02/14 documented as of this encounter
--- OUTSIDE RECORDS SUMMARY | 2024-01-03 01:09 | XMS_ITS | Encounter Summary ---
Author Organization [facility] Address [address] [place] [address] Care Team Providers Care Passport Support Manager Name Role Phone Terry Hall MD Unavailable Che Sharpe Primary Care Provider + Reason for Visit * Reason Onset Date Comments DME 10/17/2021 Encounter Details Date Type Department Care Team (Late st Contact Info) Description 10/17/2021 Telephone [facility] Endocrinology - [facility] [address] [place] [address] Breanna Flores MD [address] [facility] [address] [place] [address] DME Social History Tobacco Use [...] encounter Miscellaneous Notes * Telephone Encounter - Lexy Salinas MA - 10/17/2021 1145 EDT Faxed Filled Out yuback Form to [phone] on 10/17/21 documented in this encounter Plan of Treatment Not on file documented as of this encounter Visit Diagnoses Not on filedocumented in this encounter Care Teams Passport Support Manager Relationship Specialty Start Date End Date Che Sharpe PA [address] [place] [address] [place] [phone] PCP - General 10/16/21 Terry Hall MD [address] [place] [address] 07/02/14 documented as of this encounter
--- OUTSIDE RECORDS SUMMARY | 2024-01-03 01:09 | XMS_ITS | Encounter Summary ---
Author Organization [facility] Address [address] [place] [address] Care Team Providers Care Coordinator Of Health Services Name Role Phone Terry Hall MD Unavailable Yehuda Stallworth DO Primary Care Provider Che Sharpe Primary Care Provider + Encounter Details Date Type Department Care Team (Late st Contact Info) Description 01/11/2021 Lab Requisition [facility] Pathology & Laboratory Medicine - [facility] [address] [place], [place] [phone] Outr Resulting Lab, Provider Social History Tobacco [...] Procedure Name Priority Date/Time Associated Diagnosis Comments GIARDIA AND CRYPTOSPORIDIUM ANTIGENS Routine 01/10/2021 22:00 EDT documented in this encounter Results * GIARDIA AND CRYPTOSPORIDIUM ANTIGENS (01/10/2021 22:00 EDT) Giardia and Cryptosporidium Cryptosporidium Antigen Neg and Giardia Antigen Neg Cryptosporidium Antigen Neg and Giardia Antigen Neg 12:27 EDT [facility] Feces SPECIMEN FROM RECTUM / Unknown Stool Collect / Unknown 01/10/2021 22:00 EDT 01/11/2021 22:51 EDT Provider Outr Resulting Lab MICROBIOLOGY - GENERAL ORDERABLES Performing Organization Address City/State/[facility] Co de Phone Number [facility] [address] [place] [address] documented in this encounter Visit Diagnoses Not on filedocumented in this encounter Care Teams Coordinator Of Health Services Relationship Specialty Start Date End Date Yehuda Stallworth DO [address] [place] [phone] PCP - General 05/15/16 10/15/21 Che Sharpe PA [address] [place] [address] [place] [phone] PCP - General 10/16/21 Terry Hall MD [address] [place] [phone] 07/02/14 documented as of this encounter
--- OUTSIDE RECORDS SUMMARY | 2024-01-03 01:09 | XMS_ITS | Encounter Summary ---
Author Organization [facility] Address [address] [place] [address] Care Team Providers Care Shank Carrier Name Role Phone Terry Hall MD Unavailable Yehuda Stallworth DO Primary Care Provider Che Sharpe Primary Care Provider + Encounter Details Date Type Department Care Team (Late st Contact Info) Description 02/08/2021 Lab Requisition [facility] Pathology & Laboratory Medicine - [facility] [address] [place], [place] [phone] Outr Resulting Lab, Provider Social History Tobacco [...] Priority Date/Time Associated Diagnosis Comments ZZCOVID-19 TEST [facility] PCR Today 02/08/2021 11:24 EDT COVID-19 TESTING Routine 02/08/2021 11:2 4 EDT documented in this encounter Results * COVID-19 TEST [facility] PCR (02/08/2021 11:24 EDT) Swab ENTIRE NASOPHARYNX / Unknown 02/08/2021 11:24 EDT 02/08/2021 21:10 EDT Provider Outr Resulting Lab MICROBIOLOGY - GENERAL ORDERABLES Performing Organization Address City/State/[facility] Co de Phone Number [facility] [address] [place] [address] * COVID-19 TESTING (02/08/2021 11:24 EDT) COVID-19 rt-PCR Result Negative Negative 02/09/2021 11:07 EDT [facility] Comment: This test has not been FDA cleared or approved. This test has been authorized by FDA under an EUA for use by authorized laboratories. This test has been authorized only for detection of nucleic acid from 2019-nCoV, not for any other viruses or pathogens. This test is only authorized for the duration of the declaration that circumstances exist justifying the authorization of emergency use of in vitro diagnostic tests for detection and/or diagnosis of 2019-nCoV under section 564(b)(1) of Act, 21 U.S.C ?? 360bbb-3(b) (1), unless the authorization is terminated or revoked sooner. Negative results do not preclude 2019-nCoV infection and should not be used as the sole basis for treatment or other patient management decisions. Negative results must be combined with clinical observations, patient history, and epidemiological information. Testing was performed using the luis SARS-CoV-2 assay ([employer] on the Luis 6800 System Performing Lab Luis 6800 [facility] 02/09/2021 11:07 EDT [facility] Swab 02/08/2021 11:2 4 EDT 02/08/2021 21:10 EDT Provider Outr Resulting Lab MICROBIOLOGY - GENERAL ORDERABLES [facility] [address] [place] [address] documented in this encounter Visit Diagnoses Not on filedocumented in this encounter Care Teams Shank Carrier Relationship Specialty Start Date End Date Yehuda Stallworth DO [address] [place] [phone] PCP - General 05/15/16 10/15/21 Che Sharpe PA [address] [place] [address] [place] [phone] PCP - General 10/16/21 Terry Hall MD [address] [place] [phone] 07/02/14 documented as of this encounter
--- OUTSIDE RECORDS SUMMARY | 2024-01-03 01:09 | XMS_ITS | Encounter Summary ---
Author Organization [facility] Address [address] [place] [address] Care Team Providers Care Corporate Communications Specialist Name Role Phone Terry Hall MD Unavailable Yehuda Stallworth DO Primary Care Provider Reason for Visit * Reason Onset Date Comments Diabetes 10/26/2016 Encounter Details Date Type Department Care Team (Late st Contact Info) Description 10/26/2016 Telephone [facility] Endocrinology - [facility] [address] [place] [address] Greta Galicia NP [address] [facility] [address] [place] [address] Diabetes Social History Tobacco Use Types Packs/Day Years [...] encounter Miscellaneous Notes * Telephone Encounter - Greta Galicia NP - 10/26/2016 1610 EDT Pt experienced worsening nausea, diarrhea and abd. Cramps with 4th injection of bydureon. Last dosewas Tuesday 10/24. Still has minor GI upset but feeling better, tolerating food. FS in low 100 range. Currently not using any insulin. Pt has moved out of state to [place] will establish care down there. Until then she can call for any DM related questions. Needs refill on test strips and have ordered. Have updated Allergy/drug adverse reaction. Can now not tolerated GLP-1 inhinitors or Metformin. Have D/C'd bydureon. Please call next week with blood sugars documented in this encounter Plan of Treatment Not on file documented as of this encounter Visit Diagnoses Not on filedocumented in this encounter Care Teams Corporate Communications Specialist Relationship Specialty Start Date End Date Yehuda Stallworth DO [address] [place] [phone] PCP - General 05/15/16 10/15/21 Terry Hall MD [address] [place] [phone] 07/02/14 documented as of this encounter
--- OUTSIDE RECORDS SUMMARY | 2024-01-03 01:09 | XMS_ITS | Encounter Summary ---
Author Organization [facility] Address [address] [place] [address] Care Team Providers Care Cream Buyer Name Role Phone Terry Hall MD Unavailable Yehuda Stallworth DO Primary Care Provider Che Sharpe Primary Care Provider + Encounter Details Date Type Department Care Team (Late st Contact Info) Description 06/19/2021 Lab Requisition [facility] Pathology & Laboratory Medicine - [facility] [address] [place], [place] [id number] Outr Resulting Lab, Provider Social History Tobacco [...] Procedure Name Priority Date/Time Associated Diagnosis Comments INSULIN Routine 06/19/2021 15:44 EST documented in this encounter Results * INSULIN (06/19/2021 15:44 EST) Insulin 14.3 <29.0 uIU/mL 06/22/2021 9:03 EST [facility] Comment: Displayed Reference Range applies to fasting specimens only. Blood VENOUS BLOOD / Unknown 06/19/2021 15:44 EST 06/19/2021 22:03 EST Provider Outr Resulting Lab CHEMISTRY & BLOOD GAS ORDERABLES Performing Organization Address City/State/[facility] Co de Phone Number [facility] [address] [place] [address] documented in this encounter Visit Diagnoses Not on filedocumented in this encounter Care Teams Cream Buyer Relationship Specialty Start Date End Date Yehuda Stallworth DO [address] [place] [phone] PCP - General 05/15/16 10/15/21 Che Sharpe PA [address] [place] [address] [place] [phone] PCP - General 10/16/21 Terry Hall MD [address] [place] [phone] 07/02/14 documented as of this encounter
--- OUTSIDE RECORDS SUMMARY | 2024-01-03 01:09 | XMS_ITS | Encounter Summary ---
Author Organization [facility] Address [address] [place] [address] Care Team Providers Care Senior Quality Manager Name Role Phone Terry Hall MD Unavailable Che Sharpe Primary Care Provider + Reason for Visit * Reason Comments Diabetes * Consult (See Order Priority) - Order Cancelled Specialty Diagnoses / Procedures Referred By Luana landon Referred To Contact Endocrinology Diagnoses Type 2 diabetes mellitus with hyperglycemia, with long-term current use of insulin ([facility]) Breanna Flores MD [address] [place] [phone] [facility] Endocrinology [address] [place] [phone] Referral ID Status Reason Start Date Expiration Date Visits Requested Visits Authorized [id number] Order Cancelled Specialty Services Required 12/07/2021 1 1 Encounter Details Date Type Department Care Team (Late st Contact Info) Description 01/30/2022 16:00 EDT Nutrition [facility] Endocrinology - [address] [address] Riddhi Charles, RD [address] [place] [phone] Type 2 diabetes mellitus with hyperglycemia, with long-term current use of insulin ([facility]) (Primary Dx) Social History Tobacco [...] of this encounter Progress Notes * Riddhi Charles, RD - 01/30/2022 1600 EDT Images from the original note were not included. [facility] Endocrinology and Diabetes DIABETES NUTRITION INITIAL VISIT NOTE The concept of ???Telemedicine?? has been described [...] Home Patient location state: Visit Location State: [place] The location of the provider: home Provider location state: Visit Location State: [place] The following people and their roles were present for today's visit: Appointment Provider: Riddhi Charles RD Chassidy L DesLauriers, RD Name:Emma Min Today's Date: 01/31/2022 Date of visit: 01/30/2022 PATIENT ID: Emma Min is a 41 y.o. female referred for medical nutrition therapy by Dr. Flores for diabetes. MNT referral date: 12/07/2021 SUBJECTIVE: Emma Min was seen for an initial medical nutrition therapy visit at the [facility] Endocrinology & Diabetes out-patient clinic on 01/30/2022. Emma Min was accompanied by: alone Pt states that the omnipod 5 has been great. Pt reports that she is doing set boluses with meals and not using the insulin to carb ratio feature. OBJECTIVE: Diabetes type: Type 2 Vitals: There were no vitals taken for this visit. BMI: There is no height or weight on file to calculate BMI. Diabetes Medications: Current AntiDiabetic Medications 10/24/2021 12/07/2021 insulin lispro (subcutaneous) 8 Units TID WC + Inject into the skin up to 75 units via insulin pump(100 unit/mL soln) Inject into the skin up to 75 units via insulin pump (100 unit/mL soln) insulin glargine (subcutaneous) 25 Units DAILY L.A. INSULIN* 25 Units DAILY L.A. INSULIN* insulin aspart U-100 (subcutaneous) - - insulin aspart protamine-insulin aspart (subcutaneous) - - Ozempic (subcutaneous) 2 mg Q7 DAYS (2 mg/dose (8 mg/3 mL) pnij) 2 mg Q7 DAYS (2 mg/dose (8 mg/3 mL) pnij) liraglutide (subcutaneous) - - exenatide microspheres (subcutaneous) - - dulaglutide (subcutaneous) - - glipiZIDE (oral) - - metFORMIN (oral) - - * Patient has reported taking this medication differently or not taking at all. Current Insulin Program: Pump orders below- of note pt is not carb counting and does a set bolus of 8 units with meals Laboratory Results: Lab Results Component Value Date HGBA1C 7.4 (H) 10/16/2021 HGBA1C 8.3 (H) 09/12/2016 HGBA1C 7.4 (H) 05/15/2016 Lab Results Component Value Date CHOL 234 08/10/2015 HDL 49 08/10/2015 LDLBASE 143 08/10/2015 TRIG 209 08/10/2015 CHOLHDL 4.8 08/10/2015 PRESENT MEAL PATTERN: Seen today for carb counting. Pt is not currently carb counting and does a set bolus of 8 units with meals. Pt describes meal pattern of 3 meals/day with snacks BLOOD GLUCOSE MONITORING: Glucose monitoring: QD. With meter: dexcom G6 Barriers to monitoring: None Hypoglycemic episode: none reported Carbohydrate source on person? Yes Blood Glucose Readings: ASSESSMENT: Emma was referred for medical nutrition therapy and diabetes self management. Nutrition Diagnosis: altered nutrition related labs or vitals Etiology: type 2 diabetes Signs & Symptoms: elevated hemoglobin a1c (see labs), elevated home glucose readings and no evidence of hypoglycemia (noted above). Pt is managed with omnipod 5 insulin pump and dexcom G6 in automated insulin delivery. Pt is not currently carb counting and this skill would greatly improve glycemic control by allowing for corrections to be better fit with food choices. Offered overview of techniques and tools for carb counting. Sent resources in the mail. Pt glooko was not linked. Account was created and directions were given on linking encounter. Intervention: MNT/Education: Engaged patient in conversation related to positive behavior change, self-management, goal setting and action planning using motivational interviewing and active listening. Reviewed dietary intake and physical activity. Reviewed blood glucose measurements, including HgA1C and FBG. Discussed MyPlate and balanced meals, snacks, and health benefits of maintaining balanced blood glucose levels throughout day. Discussed insulin to carb ratio with insulin pumps Reviewed food sources of carbohydrate (starch vs non-starch; refined vs whole grain; added sugar), carbohydrate counting, and low carbohydrate snacks. Recommendation/Plan: Practice accurate carbohydrate counting Connect via Glooko Monitoring & Evaluation: RD to monitor dietary intake and physical activity and glucose, understanding of nutrition education and recommendations, nutrition related labs and vitals Learning readiness: Verbalizes interest, Seeking additional information (pamphlets, classes, etc) and Active attentive participant Psychosocial, cultural, or economic barriers to care:none. Emma Min verbalized understanding of meal planning guidelines reviewed at this visit. The following patient education materials were provided at today's visit. Carb counting My Plate Food list FOLLOW-UP: 4 weeks Thank you for your kind referral of Emma Min for nutrition counseling. Time Spent With Patient: 30 minutes Diagnosis Code: E11.[address] 01/31/2022 14:42 Endocrinology Tracking 01/31/[address]/CDE Time with Patient(Mins) 30 Patient Contact Type MNT documented in this encounter Plan of Treatment Not on file documented as of this encounter Visit Diagnoses Diagnosis Type 2 diabetes mellitus with hyperglycemia, with long-term current use of insulin ([facility])- Primary documented in this encounter Care Teams Senior Quality Manager Relationship Specialty Start Date End Date Che Sharpe PA [address] [place] [address] [place] [phone] PCP - General 10/16/21 Terry Hall MD [address] [place] [phone] 07/02/14 documented as of this encounter
--- OUTSIDE RECORDS SUMMARY | 2024-01-03 01:09 | XMS_ITS | Encounter Summary ---
Author Organization [facility] Address [address] [place] [address] Care Team Providers Care Manufacturing Finance Manager Name Role Phone Terry Hall MD Unavailable Yehuda Stallworth DO Primary Care Provider Encounter Details Date Type Department Care Team (Latest Contact Info) Description 05/30/2019 Travel Social History Tobacco Use Types Packs/Day [...] on filedocumented in this encounter Care Teams Manufacturing Finance Manager Relationship Specialty Start Date End Date Yehuda Stallworth DO [address] [place] [phone] PCP - General 05/15/16 10/15/21 Terry Hall MD [address] [place] [phone] 07/02/14 documented as of this encounter
--- OUTSIDE RECORDS SUMMARY | 2024-01-03 01:09 | XMS_ITS | Encounter Summary ---
Author Organization [facility] Address [address] [place] [address] Care Team Providers Care Sample Maker Name Role Phone Terry Hall MD Unavailable Che Sharpe Primary Care Provider + Reason for Visit * Reason Comments Diabetes * Referral (Routine) - Receiving Office to Obtain Authorization Specialty Diagnoses / Procedures Referred By Luana landon Referred To Contact Endocrinology Diagnoses Type 2 diabetes mellitus without complications ([facility]) Che Sharpe PA [address] [place] [phone] [facility] Endocrinology [address] [place] [address] Referral ID Status Reason Start Date Expiration Date Visits Requested Visits Authorized [id number] Receiving Office to Obtain Authorization 1 1 Encounter Details Date Type Department Care Team (Latest Contact Info) Description 10/16/2021 8:00 EDT Office Visit [facility] Endocrinology - [address] [address] Breanna Flores MD [address] [place] [address] [address] [place] [address] Type 2 diabetes mellitus with hyperglycemia, with long-term current use of insulin ([facility]) ([facility]) (Primary Dx); Type 1 diabetes mellitus with hyperglycemia ([facility]) Social History Tobacco Use Types Packs/Day Years [...] EDT Pulse 104 10/16/2021 0848 EDT Temperature - - Respiratory Rate - - Oxygen Saturation - - Inhaled Oxygen Concentration - - Weight 77.2 kg (170 lb 3.2 oz) 10/16/2021 0848 E DT Height 162.6 cm (5' 4.02) 10/16/2021 0848 EDT Body Mass Index 29.2 10/16/2021 0848 EDT documented in this encounter Functional Status Functional [...] No 05/23/2016 documented as of this encounter Patient Instructions * Patient Instructions* Breanna Flores MD - 10/16/2021 8:00 EDT - CHANGE insulin to the following: Lantus 25 units once daily Humalog 8 units with meals - We will get prior authorization for Omnipod insulin pump - I have prescribed Dexcom sensor for you - Get fasting morning labs drawn when able - INCREASE Ozempic to 2 mg once weekly - STOP glipizide altogether documented in this encounter Ordered Prescriptions Prescription Sig Dispensed Refills Start Date End Da te semaglutide (OZEMPIC) 2 mg/dose (8 mg/3 mL) pen injector Inject 2 mg into the skin every 7 days. 9 mL 3 10/16/2021 12/18/2022 insulin lispro (HUMALOG KWIKPEN) 100 unit/mL injectable pen Inject 8 Units into the skin 3 times daily with meals. 30 mL 3 10/16/2021 10/20/2021 insulin glargine (LANTUS SOLOSTAR/SEMGLEE) 100 unit/mL (3 mL) injection penIndications:Type 2 diabetes mellitus with hyperglycemia, with long-term current use of insulin (HCC-CMS) Inject 25 Units into the skin once daily. 30 mL 3 10/16/2021 10/20/2021 Blood-Glucose Transmitter (DEXCOM G6 TRANSMITTER) deviceIndications:Type 2 diabetes mellitus with hyperglycemia, with long-term current use of insulin (HCC-CMS),Type 1 diabetes mellitus with hyperglycemia (HCC-CMS) 1 Each by misc (non-drug; combo route) route every 3 months. 1 Each 3 10/16/2021 11/06/2022 Blood-Glucose Sensor (DEXCOM G6 SENSOR) deviceIndications:Type 2 diabetes mellitus with hyperglycemia, with long-term current use of insulin (HCC-CMS),Type 1 diabetes mellitus with hyperglycemia (HCC-CMS) 1 Each by misc (non-drug; combo route) route every 10 days. 3 Each 11 10/16/2021 09/18/2022 documented in this encounter Progress Notes * Tiff Soto MA - 10/16/2021 0800 EDT Fingerstick blood sample obtained for POCT Hemoglobin A1C performed for this DOS at the order of Breanna Flores MD Sending information to patient's email to share through [employer] * Breanna Flores MD - 10/16/2021 0800 EDT Images from the original note were not included. Endocrinology New Patient Visit Date of Service: 10/16/2021 Chief Complaint Patient presents with ??? Diabetes HPI: This is a 41 y.o. female who is here for evaluation of diabetes. Diabetes was diagnosed in 2004 andclassified as type 2 although likely has a component of type I in the setting of hemochromatosis. She has no known complications. Her maternal aunt has T2DM, and PGM, PGF as well. Current medications include glipizide 10 mg daily, Lantus 37 units once daily, and Ozempic 1mg onceweekly. Her A1c today is 7.4%. She was intolerant to metformin due to GI side effects. She was alsoon Jardiance but it was stopped because it wasn't lowering her A1c not necessarily because she had any side effects, and denies any vaginal yeast infections. Selina is reading very high. She wakes up with the lowest BS in the morning and then rises with any food intake. She is cutting out sugary beverages. Also struggles a lot with carbohydrates. Exercises a lot. Not getting her periods, on Depo. Humalog was stopped just a few months ago after she was getting middle of the night lows with disorientation, sweating. Feeling extremely tired and peeing all the time, no chest pain, no SOB. Works [employer]. Patient's CGM was downloaded and I reviewed the last 14 days worth of data for further diabetes medication management and titration. Download shows 18% time in range, 0% low, 0% very low, 37% high and 45% very high. Daily review patterns showed tendency for dropping from the 300s down to upper 100sovernight and then rising with each meal throughout the day. Her GMI is 9.1% with an average glucose of 241. - Microalbumin needs to be checked - Up to date with ophthalmology exam and dental exam - Lipids need to be checked and now a candidate for statin therapy given age - Foot exam performed today, within normal limits, repeat yearly - SBP within goal of <140 - A1c goal is <7% Review of Systems A 10 point review of systems was obtained, pertinent positives and negatives as listed above, all others negative. Active Problem List Patient Active Problem List Diagnosis ??? Diabetes (HCC) PMH PSH Past Medical History: Diagnosis Date ??? Diabetes mellitus (HCC) Past Surgical History: Procedure Laterality Date ??? CHOLECYSTECTOMY Social History Family history Social History Socioeconomic History ??? Marital status: Single Spouse name: Not on file ??? Number of children: Not on file ??? Years of education: Not on file ??? Highest education level: Not on file Occupational History ??? Not on file Tobacco Use ??? Smoking status: Former Smoker ??? Smokeless tobacco: Never Used Substance and Sexual Activity ??? Alcohol use: Yes Alcohol/week: 1.0 standard drink Types: 1 Glasses of wine per week ??? Drug use: Never ??? Sexual activity: Yes Other Topics Concern ??? Not on file Social History Narrative ??? Not on file Social Determinants of Health Financial Resource Strain: Not on file Food Insecurity: Not on file Transportation Needs: Not on file Physical Activity: Not on file Stress: Not on file Social Connections: Not on file No family history on file. Current Outpatient Medications Medication ??? Blood-Glucose Sensor (DEXCOM G6 SENSOR) device ??? Blood-Glucose Transmitter (DEXCOM G6 TRANSMITTER) device ??? famotidine (PEPCID) 20 mg tablet ??? FREESTYLE SELINA 2 SENSOR kit ??? gabapentin (NEURONTIN) 100 mg capsule ??? insulin glargine (LANTUS SOLOSTAR/SEMGLEE) 100 unit/mL (3 mL) injection pen ??? insulin lispro (HUMALOG KWIKPEN) 100 unit/mL injectable pen ??? medroxyPROGESTERone (DEPO-PROVERA) 150 mg/mL injection ??? semaglutide (OZEMPIC) 2 mg/dose (8 mg/3 mL) pen injector No current facility-administered medications for this visit. Allergies Allergies Allergen Reactions ??? Seroquel [Quetiapine] Anaphylaxis All anti depressant medications ??? Bydureon [Exenatide Microspheres] Diarrhea and GI upset ??? Metformin GI upset ??? Lactose Diarrhea ??? Latex, Natural Rubber Swelling and Rash Objective: BP 117/73 Pulse 104 Ht 162.6 cm (64.02) Wt 77.2 kg (170 lb 3.2 oz) BMI 29.20 kg/m?? Wt Readings from Last 3 Encounters: 10/16/21 77.2 kg (170 lb 3.2 oz) 05/30/19 72.6 kg (160 lb) 09/12/16 87.2 kg (192 lb 4.8 oz) Physical Exam: Gen: alert, cooperative, in NAD HEENT: atraumatic, normocephalic, conjunctivae clear, MMM Neck: supple, trachea midline, no thyromegaly or nodules appreciated Lymph: no cervical, submandibular, supraclavicular adenopathy CV: RRR Resp: CTAB, no wheezes/rales/rhonchi Abd: soft, NT Extr: no peripheral edema, atraumatic Neuro: DTRs 2/4 bilaterally Feet: No bony abnormalities, no skin breakdown, sensation diminished to monofilament bilaterally tolevel of the midfoot Skin: No evidence of rash or lesion. Turgor and color normal. Previous Labs: CBC: Lab Results Component Value Date WBC 8.20 01/16/2006 RBC 4.25 01/16/2006 HGB 13.8 01/16/2006 HCT 40.9 01/16/2006 MCV 96 01/16/2006 MCH 32.4 01/16/2006 MCHC 33.6 01/16/2006 PLT 336 (H) 01/16/2006 NEUTROABS 5.65 06/22/2005 BMP: Lab Results Component Value Date NA 139 10/17/2015 K 4.2 10/17/2015 CL 101 10/17/2015 CO2 24 10/17/2015 BUN 12 10/17/2015 CREATININE 0.58 10/17/2015 CALCIUM 9.8 10/17/2015 LABALBU 4.1 08/10/2015 Lab Results Component Value Date HGBA1C 7.4 (H) 10/16/2021 HGBA1C 8.3 (H) 09/12/2016 HGBA1C 7.4 (H) 05/15/2016 MICROALBUR 0.8 08/10/2015 Lab Results Component Value Date CHOL 234 08/10/2015 CHOL 258 01/16/2006 HDL 49 08/10/2015 HDL 44 01/16/2006 LDLBASE 143 08/10/2015 LDLBASE 184 01/16/2006 TRIG 209 08/10/2015 TRIG 148 01/16/2006 CHOLHDL 4.8 08/10/2015 CHOLHDL 5.9 01/16/2006 TSH 1.06 08/10/2015 TSH 1.91 07/05/2006 Lab Results Component Value Date ALT 19 08/10/2015 AST 19 08/10/2015 ALKPHOS 74 08/10/2015 Assessment: 41 y.o. who is here for evaluation of type 2 diabetes. Most likely she has a component of insulin deficiency in the setting of hemochromatosis as well. Clearly is going high with mealtime significantly and needs mealtime insulin going forward. Given I am unsure if this is ever expected to reverse we discussed optimal plan being a closed-loop insulin pump system. We will try to maximize the Ozempic as well given her cravings and hunger. Would like to get updated labs including C-peptide as well to further evaluate her insulin reserve. We discussed both tandem and OmniPod closed-loop insulin systems and she would prefer a tubeless system so have moved forward with getting prior authorization for OmniPod. We will restart her insulin dosing with a basal bolus regimen and empirically cut back on her basal given she is dropping overnight. Plan: - CHANGE insulin to the following: Lantus 25 units once daily Humalog 8 units with meals - We will get prior authorization for Omnipod insulin pump - I have prescribed Dexcom sensor for you - Get fasting morning labs drawn when able - INCREASE Ozempic to 2 mg once weekly - STOP glipizide altogether - Diabetes screening labs as discussed in HPI Breanna Flores MD 10/16/2021 11:25 documented in this encounter Plan of Treatment Not on file documented as of this encounter Procedures Procedure Name Priority Date/Time Associated Diagnosis Comments POCT CSN BARCODE HEMOGLOBIN A1C INT Routine 10/16/2021 9:08 EDT Type 2 diabetes mellitus with hyperglycemia, with long-term current use of insulin ([facility]) ([facility]) POCT HEMOGLOBIN A1C, INTERFACED ORDER Routine 10/16/2021 8:55 EDT Type 2 diabetes mellitus with hyperglycemia, with long-term current use of insulin ([facility]) ([facility]) POCT HEMOGLOBIN A1C, INTERFACED Routine 10/16/2021 8:55 EDT Type 2 diabetes mellitus with hyperglycemia, with long-term current use of insulin ([facility]) ([facility]) documented in this encounter Results * POCT CSN BARCODE HEMOGLOBIN A1C INT (10/16/2021 9:08 EDT) Hold Hold 10/16/2021 10:15 EDT [facility] Blood VENOUS BLOOD / Unknown 10/16/2021 9:08 EDT 10/16/2021 9:08 EDT Breanna Flores MD LAB INFO SERVICE AND SUPPORT & PHONE RESULT Performing Organization Address [facility] de Phone Number [facility] [address] [place] [address] * (ABNORMAL) POCT HEMOGLOBIN A1C, INTERFACED (10/16/2021 8:55 EDT) Hemoglobin A1c, POC 7.4(H) <5.7 % 10/16/2021 9:11 EDT [facility] Blood VENOUS BLOOD / Unknown 10/16/2021 8:55 EDT 10/16/2021 9:11 EDT Narrative [facility] - 10/16/2021 9:11 EDT For Hgb A1c values => 10%, a venous blood measurement in the main laboratory for confirmation is available. Reference Range: <5.7% Normal 5.7-6.4% Prediabetes =>6.5% Diagnostic for diabetes (if confirmed). Test performed at Endocrinology. Breanna Flores MD POINT OF CARE TEST O RDERABLES Performing Organization Address [facility] de Phone Number [facility] [address] [place] [phone] documented in this encounter Visit Diagnoses Diagnosis Type 2 diabetes mellitus with hyperglycemia, with long-term current use of insulin ([facility])- Primary Type 1 diabetes mellitus with hyperglycemia ([facility]) Type I (juvenile type) diabetes mellitus without mention of complication, not stated as uncontrolled documented in this encounter Discontinued Medications Medication Sig Discontinue Reason Start Date End Da te augmented betamethasone dipropionate (DIPROLENE-AF) 0.05 % ointment Apply topically to affected area 2 times daily. Therapy completed 05/27/2016 10/16/2021 busPIRone (BUSPAR) 15 mg tablet Take 15 mg by mouth 2 times daily. Therapy completed 10/16/2021 colesevelam (WELCHOL) 625 mg tabletIndications:Type 2 diabetes mellitus with hyperglycemia ([facility]),Mixed hyperlipidemia Take 1 Tab by mouth 2 times daily with breakfast and dinner. Therapy completed 01/11/2016 10/16/2021 empagliflozin (JARDIANCE) 10 mg tablet Take 10 mg by mouth daily. Therapy completed 10/16/2021 liraglutide (VICTOZA 2-SHANA) 0.6 mg/0.1 mL (18 mg/3 mL) injectable pen Inject 1.2 mg into the skin once a week. Therapy completed 10/16/2021 oxymetazoline (AFRIN) 0.05 % nasal spray Instill 2 Sprays into right nostril 2 times daily. Therapy completed 10/16/2021 Urea 40 % cream Apply topically to affected area 2 times daily. If expensive- buy off amazon Therapy completed 05/23/2016 10/16/2021 OZEMPIC 1 mg/dose (4 mg/3 mL) pen injector Inject 1 mg into the skin every 7 days. 10/02/2021 10/16/2021 glipiZIDE (GLUCOTROL) 10 mg XL tablet Take 10 mg by mouth daily. Alternate therapy 09/08/2021 10/16/2021 insulin glargine (LANTUS SOLOSTAR) 100 unit/mL (3 mL) injection penIndications:Type 2 diabetes mellitus with hyperglycemia, with long-term current use of insulin ([facility]) Inject 28 Units into the skin once daily. Reorder 09/12/2016 10/16/2021 documented as of this encounter Historical Medications * This list may reflect changes made after this encounter. Medication Sig Dispensed Refills Start Date End Date medroxyPROGESTERone (DEPO-PROVERA) 150 mg/mL injection INJECT 1ML INTRAMUSCULARLY EVERY 3 MONTHS 09/04/2021 OZEMPIC 1 mg/dose (4 mg/3 mL) pen injector Inject 1 mg into the skin every 7 days. 10/02/2021 10/16/2021 glipiZIDE (GLUCOTROL) 10 mg XL tablet Take 10 mg by mouth daily. 09/08/2021 10/16/2021 gabapentin (NEURONTIN) 100 mg capsule Take 100 mg by mouth 3 times daily. 08/13/2021 07/05/2022 FREESTYLE SELINA 2 SENSOR kit 09/14/2021 12/07/2021 added in this encounter Care Teams Sample Maker Relationship Specialty Start Date End Date Che Sharpe PA [address] [place] [address] [place] [phone] PCP - General 10/16/21 Terry Hall MD [address] [place] [phone] 07/02/14 documented as of this encounter
--- OUTSIDE RECORDS SUMMARY | 2024-01-03 01:09 | XMS_ITS | Encounter Summary ---
Author Organization [facility] Address [address] [place] [address] Care Team Providers Care Coin Machine Assembler Name Role Phone Terry Hall MD Unavailable Yehuda Stallworth DO Primary Care Provider Reason for Visit * Reason Onset Date Comments Prior Auth, Medication 09/20/2016 Encounter Details Date Type Department Care Team (Late st Contact Info) Description 09/20/2016 Telephone [facility] Endocrinology - [facility] [address] [place] [address] Greta Galicia NP [address] [facility] [address] [place] [address] Prior Auth, Medication Social History Tobacco Use Types Packs/Day Years [...] Telephone Encounter - Crystal Puente, RN - 09/20/2016 1603 EDT Greta changed script to Bydureon./KAMINI * Telephone Encounter - Teresita Dunne - 09/20/2016 1543 EDT Rcvd fax from pharmacy indicating PA is needed for Trulicity. [place] Medicaid will require documentation of failure of Metformin, Buyetta and/or Victoza Patient will require new script and to be notified of said change. documented in this encounter Plan of Treatment Not on file documented as of this encounter Visit Diagnoses Not on filedocumented in this encounter Care Teams Coin Machine Assembler Relationship Specialty Start Date End Date Yehuda Stallworth DO [address] [place] [phone] PCP - General 05/15/16 10/15/21 Terry Hall MD [address] [place] [phone] 07/02/14 documented as of this encounter
--- OUTSIDE RECORDS SUMMARY | 2024-01-03 01:09 | XMS_ITS | Encounter Summary ---
Author Organization [facility] Address [address] [place] [address] Care Team Providers Care Director Of Psychology Name Role Phone Terry Hall MD Unavailable Che Sharpe Primary Care Provider + Encounter Details Date Type Department Care Team (Late st Contact Info) Description 10/17/2021 Orders Only [facility] Endocrinology - [facility] [address] [place] [address] Breanna Flores MD [address] [facility] [address] [place] [address] Type 1 diabetes mellitus with hyperglycemia (HCC) (Primary Dx) Social History Tobacco Use Types [...] Start Date End Da te insulin pump cart,auto,BT-cntr (OMNIPOD 5 G6 INTRO KIT, GEN 5,) cartridgeIndications:Type 1 diabetes mellitus with hyperglycemia (HCC-CMS) Inject 1 Each into the skin once for 1 dose. 1 Each 10/17/2021 insulin pump cart,automated,BT (OMNIPOD 5 G6 PODS, GEN 5,) cartridgeIndications:Type 1 diabetes mellitus with hyperglycemia (HCC-CMS) Inject 1 Each into the skin every 72 hours. 10 Each 11 10/17/2021 08/15/2022 documented in this encounter Plan of Treatment Not on file documented as of this encounter Visit Diagnoses Diagnosis Type 1 diabetes mellitus with hyperglycemia (HCC-CMS)- Primary Type I (juvenile type) diabetes mellitus without mention of complication, not stated as uncontrolled documented in this encounter Care Teams Director Of Psychology Relationship Specialty Start Date End Date Che Sharpe PA [address] [place] [address] [place] [address] PCP - General 10/16/21 Terry Hall MD [address] [place] [phone] 07/02/14 documented as of this encounter
--- OUTSIDE RECORDS SUMMARY | 2024-01-03 01:09 | XMS_ITS | Encounter Summary ---
Author Organization [facility] Address [address] [place] [address] Care Team Providers Care Trousseau Consultant Name Role Phone Terry Hall MD Unavailable Yehuda Stallworth DO Primary Care Provider Reason for Visit * Reason Onset Date Comments Prior Auth, Medication 09/13/2016 Medication Questions 09/13/2016 Encounter Details Date Type Department Care Team (Late st Contact Info) Description 09/13/2016 Telephone [facility] Endocrinology - [facility] [address] [place] [address] Greta Galicia NP [address] [facility] [address] [place] [address] Prior Auth, Medication; Medication Questions Social History Tobacco Use Types Packs/Day Years [...] encounter Miscellaneous Notes * Telephone Encounter - Teresita Dunne - 09/13/2016 1347 EDT Rcvd email from [facility] indicating Trulicity was APPROVED. Outcome Approvedtoday Your request has been approved Called pharmacy, they will fill and contact pt when ready for p/u. * Telephone Encounter - Mago Lr - 09/13/2016 1324 EDT Reason for Call: Prior Auth, Medication and Medication Questions Summary/Symptoms: Patient calling With a medication question. She would like to know what she needsto do as far as her medication as she is waiting for the PA on her Trulicity. Mago Lr 09/13/2016 13:24 * Telephone Encounter - Teresita Dunne - 09/13/2016 1256 EDT Rcvd fax from pharmacy indicating PA required for Trulicity. Completed [place] Medicaid [place] Request Form and e-filed using [facility] to initiate this process. documented in this encounter Plan of Treatment Not on file documented as of this encounter Visit Diagnoses Not on filedocumented in this encounter Care Teams Trousseau Consultant Relationship Specialty Start Date End Date Yehuda Stallworth DO [address] [place] [phone] PCP - General 05/15/16 10/15/21 Terry Hall MD [address] [place] [phone] 07/02/14 documented as of this encounter
--- OUTSIDE RECORDS SUMMARY | 2024-01-03 01:09 | XMS_ITS | Encounter Summary ---
Author Organization [facility] Address [address] [place] [address] Care Team Providers Care Rice Farmworker Name Role Phone Terry Hall MD Unavailable Yehuda Stallworth DO Primary Care Provider Reason for Visit * Reason Onset Date Comments Medication Questions 09/14/2016 Trulicity Encounter Details Date Type Department Care Team (Late st Contact Info) Description 09/14/2016 Telephone [facility] Endocrinology - [facility] [address] [place] [address] Greta Galicia NP [address] [facility] [address] [place] [address] Medication Questions (Trulicity) Social History Tobacco Use Types Packs/Day Years [...] Telephone Encounter - Crystal Puente, RN - 09/14/2016 1429 EDT Notified Lawanda that PA ws approved for Trulicity./KAMINI * Telephone Encounter - Andrew Núñez - 09/14/2016 1108 EDT Patient was prescribed to take Trulicity medication and the insurance will not approve it. Patient would like to know if there is a generic prescription she should be getting. If so please send a newscript to pharmacy. Also, patients blood sugar is high and have not been taking anything and will need the medication right away. Would like a call back. documented in this encounter Plan of Treatment Not on file documented as of this encounter Visit Diagnoses Not on filedocumented in this encounter Care Teams Rice Farmworker Relationship Specialty Start Date End Date Yehuda Stallworth DO [address] [place] [phone] PCP - General 05/15/16 10/15/21 Terry Hall MD [address] [place] [phone] 07/02/14 documented as of this encounter
--- OUTSIDE RECORDS SUMMARY | 2024-01-03 01:09 | XMS_ITS | Encounter Summary ---
Author Organization [facility] Address [address] [place] [address] Care Team Providers Care Director Global Development Name Role Phone Terry Hall MD Unavailable Che Sharpe Primary Care Provider + Reason for Visit * Reason Onset Date Comments Results 12/05/2021 Encounter Details Date Type Department Care Team (Late st Contact Info) Description 12/05/2021 Telephone [facility] Endocrinology - [facility] [address] [place] [address] Breanna Flores MD [address] [facility] [address] [place] [address] Results Social History Tobacco Use Types Packs/Day [...] encounter Miscellaneous Notes * Telephone Encounter - Breanna Flores MD - 12/05/2021 1356 EDT ----- Message from Mindy Chan MA sent at 12/05/2021 10:10 EDT ----- [facility] lab results documented in this encounter Plan of Treatment Not on file documented as of this encounter Visit Diagnoses Not on filedocumented in this encounter Care Teams Director Global Development Relationship Specialty Start Date End Date Che Sharpe PA [address] [place] [phone] PCP - General 10/16/21 Terry Hall MD [address] [place] [phone] 07/02/14 documented as of this encounter
--- OUTSIDE RECORDS SUMMARY | 2024-01-03 01:09 | XMS_ITS | Encounter Summary ---
Author Organization [facility] Address [address] [place] [address] Care Team Providers Care Entrance Guard Name Role Phone Terry Hall MD Unavailable Yehuda Stallworth DO Primary Care Provider Che Sharpe Primary Care Provider + Encounter Details Date Type Department Care Team (Late st Contact Info) Description 01/16/2021 Lab Requisition [facility] Pathology & Laboratory Medicine - [facility] [address], [place] [id number] Outr Resulting Lab, Provider Social History Tobacco [...] Procedure Name Priority Date/Time Associated Diagnosis Comments IGA Routine 01/16/2021 8:59 EDT documented in this encounter Results * IGA (01/16/2021 8:59 EDT) IgA 304 85 - 499 mg/dL 01/17/2021 8:56 EDT [facility] Blood VENOUS BLOOD / Unknown 01/16/2021 8:59 EDT 01/16/2021 21:10 EDT Provider Outr Resulting Lab CHEMISTRY & BLOOD GAS ORDERABLES Performing Organization Address City/State/[facility] Co de Phone Number [facility] [address] [place] [address] documented in this encounter Visit Diagnoses Not on filedocumented in this encounter Care Teams Entrance Guard Relationship Specialty Start Date End Date Yehuda Stallworth DO [address] [place] [phone] PCP - General 05/15/16 10/15/21 Che Sharpe PA [address] [place] [phone] PCP - General 10/16/21 Terry Hall MD [address] [place] [address] 07/02/14 documented as of this encounter
--- OUTSIDE RECORDS SUMMARY | 2024-01-03 01:09 | XMS_ITS | Encounter Summary ---
Author Organization [facility] Address [address] [place] [address] Care Team Providers Care Change Management Specialist Name Role Phone Terry Hall MD Unavailable Yehuda Stallworth DO Primary Care Provider Che Sharpe Primary Care Provider + Reason for Visit * Reason Onset Date Comments Prior Auth, Medication 09/14/2016 trulicity Follow-up 09/18/2016 Patient still do es not have her trulicity yet Encounter Details Date Type Department Care Team (Late st Contact Info) Description 09/14/2016 Telephone [facility] Endocrinology - [facility] [address] [place] [address] Greta Galicia NP [address] [facility] [address] [place] [address] Prior Auth, Medication (trulicity); Follow-up (Patient still does not have her trulicity yet) Social History Tobacco Use Types Packs/Day Years [...] * Telephone Encounter - Teresita Dunne - 09/19/2016 1210 EDT Called [place] Medicaid, as when PA was done we rcvd an approval, but then on September 13 a Denial. PA was DENIED Pt must have documented trial/failure to Metformin AND Victoza, Bydureon or Byetta New script will be needed, and pt notified. * Telephone Encounter - Manisha Ramirez - 09/18/2016 1226 EDT Patient still not getting her trulicity and very anxious. Would like a call back to discuss * Telephone Encounter - Andrew Núñez - 09/14/2016 1520 EDT Per pharmacy Trulicity needs a prior authoriation from insurance company. documented in this encounter Plan of Treatment Not on file documented as of this encounter Visit Diagnoses Not on filedocumented in this encounter Care Teams Change Management Specialist Relationship Specialty Start Date End Date Yehuda Stallworth DO [address] [place] [address] [place] [phone] PCP - General 05/15/16 10/15/21 Che Sharpe PA [address] [place] [address] [place] [phone] PCP - General 10/16/21 Terry Hall MD [address] [place] [address] 07/02/14 documented as of this encounter
--- OUTSIDE RECORDS SUMMARY | 2024-01-03 01:09 | XMS_ITS | Encounter Summary ---
Author Organization [facility] Address [address] [place] [address] Care Team Providers Care Toll Test Desk Worker Name Role Phone Terry Hall MD Unavailable Che Sharpe Primary Care Provider + Reason for Visit * Reason Comments Diabetes Encounter Details Date Type Department Care Team (Latest Contact Info) Description 12/07/2021 11:00 EDT Telemedicine [facility] Endocrinology - [facility] [address] [place] [address] Breanna Flores MD [address] [facility] [address] [place] [address] Type 2 diabetes mellitus with hyperglycemia, with long-term current use of insulin ([facility]) ([facility]) (Primary Dx) Social History Tobacco [...] as of this encounter Progress Notes * Breanna Flores MD - 12/07/2021 1100 EDT Endocrinology New Patient Visit Date of Service: 12/07/2021 Chief Complaint Patient presents with ??? Diabetes The concept of ???Telemedicine?? has been described [...] Home Patient location state: Visit Location State: [place] The location of the provider: Office Provider location state: Visit Location State: [place] The following people and their roles were present for today's visit: Appointment Provider: Breanna Flores MD Patient Emma Min Breanna Flores MD HPI: This is a 41 y.o. female [...] side effects, and denies any vaginal yeast infections.When I last saw her she was having very high BS in sht e300s and rising during the day and had recently started Humalog. Works at [employer]. At our last visit we discussed getting the Omnipod 5 which we moved forward with, and also increased her Ozempic to 2.0 mg once weekly. Started Omnipod 5 and is doing extremely well today. She is notentering carbs into the pump and rather is entering 8 units prior to meals which is working quite well. Has only had one low when she didn't eat as much as she thought. Ozempic goes well, the first couple of days she has very little appetite. Eating healthy, weight is stable. BS stay between 108-120. I did now have access to her Omnipod download today. She had labwork done on 12/01/21 showing A1c of 6.3%, normal CMP and lipids as below. - Microalbumin needs to be checked - Up to date with ophthalmology exam and dental exam - Lipids checked 11/2021 and was 127, now a candidate for statin - Foot exam performed 09/2021, within normal limits, repeat yearly - SBP within goal of <140 - A1c goal is <7% Review of Systems A 10 point review of systems was obtained, pertinent positives and negatives as listed above, all others negative. Active Problem List Patient Active Problem List Diagnosis ??? Type 2 diabetes mellitus with hyperglycemia, with long-term current use of insulin ([facility]) ([facility]) PMH PSH Past Medical History: Diagnosis Date [...] on file Social Connections: Not on file History reviewed. No pertinent family history. Current Outpatient Medications Medication ??? blood glucose test strips ??? Blood-Glucose Sensor (DEXCOM G6 SENSOR) device ??? Blood-Glucose Transmitter (DEXCOM G6 TRANSMITTER) device ??? famotidine (PEPCID) 20 mg tablet ??? gabapentin (NEURONTIN) 100 mg capsule ??? insulin glargine (LANTUS SOLOSTAR/SEMGLEE) 100 unit/mL (3 mL) injection pen ??? insulin lispro (HUMALOG) 100 unit/mL vial ??? insulin pump cart,auto,BT-cntr (OMNIPOD 5 G6 INTRO KIT, GEN 5,) cartridge ??? insulin pump cart,automated,BT (OMNIPOD 5 G6 PODS, GEN 5,) cartridge ??? Insulin Syringe-Needle U-100 1 mL 29 gauge x 1/2 syringe ??? medroxyPROGESTERone (DEPO-PROVERA) 150 mg/mL injection ??? ONE TOUCH DELICA 33 gauge misc ??? ONETOUCH ULTRA2 METER ??? ONETOUCH ULTRAMINI ??? semaglutide (OZEMPIC) 2 mg/dose (8 mg/3 mL) pen injector No current facility-administered medications for this visit. Allergies Allergies Allergen Reactions ??? Seroquel [Quetiapine] Anaphylaxis All anti depressant medications ??? Bydureon [Exenatide Microspheres] Diarrhea and GI upset ??? Metformin GI upset ??? Lactose Diarrhea ??? Latex, Natural Rubber Swelling and Rash Objective: There were no vitals taken for this visit. Wt Readings from Last 3 Encounters: 10/16/21 77.2 kg (170 lb 3.2 oz) 05/30/19 72.6 kg (160 lb) 09/12/16 87.2 kg (192 lb 4.8 oz) Physical Exam: Gen: alert, cooperative, in NAD HEENT: atraumatic, normocephalic, conjunctivae clear Resp: normal WOB Previous Labs: CBC: Lab Results Component Value [...] in the setting of hemochromatosis as well. She has done incredibly well since changing to Omnipod5 with BS in the 300s now dropping to low 100s almost all the time and excellent A1c without any lows. We will make no changes but will set up with CDE to discuss carb counting as well as to get upload of the data. Plan: - CDE referral for carb counting and accessing pump data - Continue Ozempic 2 mg once weekly - Diabetes screening labs as discussed in HPI Breanna Flores MD 12/07/2021 11:19 documented in this encounter Plan of Treatment Not on file documented as of this encounter Visit Diagnoses Diagnosis Type 2 diabetes mellitus with hyperglycemia, with long-term current use of insulin ([facility])- Primary documented in this encounter Discontinued Medications Medication Sig Discontinue Reason Start Date End Da te FREESTYLE ASHLEY 2 SENSOR kit Therapy completed 09/14/2021 12/07/2021 insulin lispro (HUMALOG KWIKPEN) 100 unit/mL injectable pen Inject 8 Units into the skin 3 times daily with meals. Therapy completed 10/20/2021 12/07/2021 documented as of this encounter Care Teams Toll Test Desk Worker Relationship Specialty Start Date End Date Che Sharpe PA [address] [place] [address] [place] [phone] PCP - General 10/16/21 Terry Hall MD [address] [place] [phone] 07/02/14 documented as of this encounter
--- OUTSIDE RECORDS SUMMARY | 2024-01-03 01:09 | XMS_ITS | Encounter Summary ---
Author Organization [facility] Address [address] [place] [address] Care Team Providers Care Churn Tender Name Role Phone Terry Hall MD Unavailable Yehuda Stallworth DO Primary Care Provider Che Sharpe Primary Care Provider + Encounter Details Date Type Department Care Team (Late st Contact Info) Description 05/26/2020 Lab Requisition [facility] Pathology & Laboratory Medicine - [facility] [address] [place], [place] [phone] Outr Resulting Lab, Provider Social History Tobacco [...] Priority Date/Time Associated Diagnosis Comments ZZCOVID-19 TEST [facility] PCR Today 05/26/2020 12:55 EST COVID-19 TESTING Routine 05/26/2020 12:5 5 EST documented in this encounter Results * COVID-19 TEST [facility] PCR (05/26/2020 12:55 EST) Swab ENTIRE NASOPHARYNX / Unknown 05/26/2020 12:55 EST 05/26/2020 22:18 EST Provider Outr Resulting Lab MICROBIOLOGY - GENERAL ORDERABLES Performing Organization Address City/State/[facility] Co de Phone Number [facility] [address] [place] [phone] * COVID-19 TESTING (05/26/2020 12:55 EST) COVID-19 rt-PCR Result Negative Negative 05/27/2020 13:59 EST [facility] Comment: This test has not [...] performed using the luis SARS-CoV-2 assay ([employer] on the Luis 6800 System Performing Lab Luis [address] [facility] 05/27/2020 13:59 EST [facility] Swab 05/26/2020 12:5 5 EST 05/26/2020 22:18 EST Provider Outr Resulting Lab MICROBIOLOGY - GENERAL ORDERABLES [facility] [address] [place] [address] documented in this encounter Visit Diagnoses Not on filedocumented in this encounter Care Teams Churn Tender Relationship Specialty Start Date End Date Yehuda Stallworth DO [address] [place] [phone] PCP - General 05/15/16 10/15/21 Che Sharpe PA [address] [place] [phone] PCP - General 10/16/21 Terry Hall MD [address] [place] [address] 07/02/14 documented as of this encounter
--- OUTSIDE RECORDS SUMMARY | 2024-01-03 01:09 | XMS_ITS | Encounter Summary ---
Author Organization [facility] Address [address] [place] [address] Care Team Providers Care Director Of Labor Relations Name Role Phone Terry Hall MD Unavailable Yehuda Stallworth DO Primary Care Provider Reason for Visit * Reason Onset Date Comments Prior Auth, Medication 09/21/2016 Encounter Details Date Type Department Care Team (Late st Contact Info) Description 09/21/2016 Telephone [facility] Endocrinology - [facility] [address] [place] [address] Greta Galicia NP [address] [facility] [address] [place] [address] Prior Auth, Medication Social History [...] * Telephone Encounter - Teresita Dunne - 09/24/2016 0928 EDT Rcvd fax from [place] Medicaid with APPROVAL for Bydureon Pen Inj 2mg Called pharmacy to advise of approval and was told that script has been filled and picked up by patient * Telephone Encounter - Tereista Dunne - 09/21/2016 1508 EDT Rcvd fax from pharmacy indicating PA is required for Bydureon - completed [place] Medicaid PA Request form and e-filed using CMM to initiate this process. documented in this encounter Plan of Treatment Not on file documented as of this encounter Visit Diagnoses Not on filedocumented in this encounter Care Teams Director Of Labor Relations Relationship Specialty Start Date End Date Yehuda Stallworth DO [address] [place] [phone] PCP - General 05/15/16 10/15/21 Terry Hall MD [address] [place] [phone] 07/02/14 documented as of this encounter
--- OUTSIDE RECORDS SUMMARY | 2024-01-03 01:09 | XMS_ITS | Encounter Summary ---
Author Organization [facility] Address [address] [place] [address] Care Team Providers Care Professor Of Mathematics Name Role Phone Terry Hall MD Unavailable Yehuda Stallworth DO Primary Care Provider Che Sharpe Primary Care Provider + Encounter Details Date Type Department Care Team (Late st Contact Info) Description 08/06/2019 Lab Requisition [facility] Pathology & Laboratory Medicine - [facility] [address] [place] [address] Jovan Esquivel MD [address] [place] [phone] Encounter for other general examination Social History Tobacco Use Types Packs/Day Years [...] Procedure Name Priority Date/Time Associated Diagnosis Comments COVID-19 TESTING Today 08/06/2019 9:00 EDT Encounter for other general examination documented in this encounter Results * COVID-19 TESTING (08/06/2019 9:00 EDT) COVID-19 rt-PCR Result Negative Negative 08/07/2019 13:13 EDT [facility] Comment:Assayed at [place], [place] Swab ENTIRE NASOPHARYNX / Unknown 08/06/2019 9:00 EDT 08/06/2019 19:11 EDT Jovan Esquivel MD MICROBIOLOGY - GENER AL ORDERABLES [facility] [place] documented in this encounter Visit Diagnoses Diagnosis Encounter for other general examination documented in this encounter Care Teams Professor Of Mathematics Relationship Specialty Start Date End Date Yehuda Stallworth DO [address] [place] [phone] PCP - General 05/15/16 10/15/21 Che Sharpe PA [address] [place] [address] [place] [phone] PCP - General 10/16/21 Terry Hall MD [address] [place] [phone] 07/02/14 documented as of this encounter
--- OUTSIDE RECORDS SUMMARY | 2024-01-03 01:09 | XMS_ITS | Encounter Summary ---
Author Organization [facility] Address [address] [place] [address] Care Team Providers Care Die Hardener Name Role Phone Terry Hall MD Unavailable Che Sharpe Primary Care Provider + Reason for Visit * Reason Onset Date Comments Appointment Related 12/19/2021 Encounter Details Date Type Department Care Team (Late st Contact Info) Description 12/19/2021 Telephone [facility] Endocrinology - [facility] [address] [place] [address] Breanna Flores MD [address] [facility] [address] [place] [phone] Appointment Related Social History Tobacco [...] encounter Miscellaneous Notes * Telephone Encounter - Elana Ayala - 12/19/2021 0821 EDT Left voicemail to schedule Follow Up appointment with Dr. Flores Patient is due anytime after 06/10/22 Recall Letter Sent documented in this encounter Plan of Treatment Not on file documented as of this encounter Visit Diagnoses Not on filedocumented in this encounter Care Teams Die Hardener Relationship Specialty Start Date End Date Che Sharpe PA [address] [place] [address] [place] [phone] PCP - General 10/16/21 Terry Hall MD [address] [place] [phone] 07/02/14 documented as of this encounter
--- OUTSIDE RECORDS SUMMARY | 2024-01-03 01:09 | XMS_ITS | Encounter Summary ---
Author Organization [facility] Address [address] [place] [address] Care Team Providers Care Career And Guidance Counselor Name Role Phone Terry Hall MD Unavailable Che Sharpe Primary Care Provider + Reason for Visit * Reason Onset Date Comments DME 10/31/2021 [facility] Encounter Details Date Type Department Care Team (Late st Contact Info) Description 10/31/2021 Telephone [facility] Endocrinology - [facility] [address] [place] [address] Breanna Flores MD [address] [facility] [address] [place] [phone] DME ([facility]) Social History Tobacco Use Types Packs/Day Years [...] encounter Miscellaneous Notes * Telephone Encounter - Mago Harding - 11/02/2021 1132 EDT Stepan from [facility] let us know patient has received the new Omnipod and is going to contact her to coordinate training. * Telephone Encounter - Dale Preston MA - 10/31/2021 1001 EDT Faxed [facility] Omnipod 5 Pump Therapy Order Form on 10/31/21 to [phone] documented in this encounter Plan of Treatment Not on file documented as of this encounter Visit Diagnoses Not on filedocumented in this encounter Care Teams Career And Guidance Counselor Relationship Specialty Start Date End Date Che Sharpe PA [address] [place] [address] [place] [phone] PCP - General 10/16/21 Terry Hall MD [address] [place] [phone] 07/02/14 documented as of this encounter
--- OUTSIDE RECORDS SUMMARY | 2024-01-03 01:09 | XMS_ITS | Encounter Summary ---
Author Organization [facility] Address [address] [place] [address] Care Team Providers Care Solid Waste Facility Operator Name Role Phone Terry Hall MD Unavailable Yehuda Stallworth DO Primary Care Provider Reason for Visit * Reason Onset Date Comments Prior Auth, Medication 09/02/2017 Encounter Details Date Type Department Care Team (Late st Contact Info) Description 09/02/2017 Telephone [facility] Endocrinology - [facility] [address] [place] [address] Greta Galicia NP [address] [facility] [address] [place] [phone] Prior Auth, Medication Social History [...] * Telephone Encounter - Teresita Dunne - 09/03/2017 1534 EDT After reviewing chart, this medication was removed from list 09/19/2016 - no PA needed. * Telephone Encounter - Teresita Dunne - 09/02/2017 1102 EDT Rcvd fax from [facility] indicating pharmacy initiated PA for Trulicity 0.75 mg/0.5 mL pen-injector Estrada: [id number] documented in this encounter Plan of Treatment Not on file documented as of this encounter Visit Diagnoses Not on filedocumented in this encounter Care Teams Solid Waste Facility Operator Relationship Specialty Start Date End Date Yehuda Stallworth DO [address] [place] [phone] PCP - General 05/15/16 10/15/21 Terry Hall MD [address] [place] [phone] 07/02/14 documented as of this encounter
--- OUTSIDE RECORDS SUMMARY | 2024-01-03 01:09 | XMS_ITS | Encounter Summary ---
Author Organization [facility] Address [address] [place] [address] Care Team Providers Care Equine Pharmacology Technician Name Role Phone Terry Hall MD Unavailable Yehuda Stallworth DO Primary Care Provider Che Sharpe Primary Care Provider + Encounter Details Date Type Department Care Team (Late st Contact Info) Description 10/11/2021 Lab Requisition [facility] Pathology & Laboratory Medicine - [facility] [address] [place] [address] Nathaniel Dejesus MD Encounter for other general examination Social History Tobacco Use Types Packs/Day Years Used Date Smoking Tobacco: Never Assessed PHQ-2 Answer Date Recorded PHQ-2 Score 0 [...] Procedure Name Priority Date/Time Associated Diagnosis Comments SURGICAL PATHOLOGY Today 10/11/2021 8:20 EDT documented in this encounter Results * SURGICAL PATHOLOGY (10/11/2021 8:20 EDT) Note to Patient The following pathology results have been interpreted by your pathologist and may be available to you before your health provider has had the opportunity to review them. Please allow time for your provider to receive these results and explore management options, if applicable. 10/13/2021 17:21 [facility] Final Diagnosis A. DUODENUM, BIOPSY: - Duodenal mucosa with mild peptic duodenitis. B. STOMACH, ANTRUM, BIOPSY: - Gastric mucosa with no specific pathologic features. - Negative for Helicobacter pylori organisms on H+E stained sections. C. STOMACH, BODY, BIOPSY: - Gastric body mucosa with no specific pathologic features. - Negative for Helicobacter pylori organisms on H+E stained sections. D. GASTROESOPHAGEAL JUNCTION, BIOPSY: - Squamocolumnar junctional mucosa with no specific pathologic features. - Negative for intestinal metaplasia; Negative for dysplasia. E. ESOPHAGUS, SITE NOT OTHERWISE SPECIFIED, BIOPSY: - Squamous mucosa with no specific pathologic features. F. COLON, ASCENDING, BIOPSY: - Colonic mucosa with no specific pathologic features. G. COLON, TRANSVERSE, BIOPSY: - Colonic mucosa with no specific pathologic features. H. COLON, DESCENDING, BIOPSY: - Colonic mucosa with no specific pathologic features. I. COLON, SIGMOID, BIOPSY: - Colonic mucosa with no specific pathologic features. J. RECTUM, BIOPSY: - Rectal mucosa with no specific pathologic features. 10/13/2021 17:21 [facility] Attestation By the signature below, the attending physician certifies that they have 1) personally conducted a gross and/or microscopic examination of the described specimen(s), and/or personally interpreted the results of laboratory testing of the described specimen(s), and 2) personally rendered or confirmed the above diagnosis. 10/13/2021 17:21 [facility] at 1721 Clinical History Chronic diarrhea and dyspepsia; colonoscopy normal, EGD normal 10/13/2021 17:21 EDT [facility] Gross Description A. Received in formalin labelled with proper patient identification (initials K, L) and duodenum Bx is a rossi tissue, 0.3 x 0.2 x 0.2 cm. Entirely submitted in A1. B. Received in formalin labelled with proper patient identification (initials K, L) and antrum Bx are two rossi tissues averaging 0.2 x 0.2 x 0.1 cm. Entirely submitted in B1. C. Received in formalin labelled with proper patient identification (initials K, L) and body Bx are two rossi tissues, 0.2 x 0.1 x 0.1 cm and 0.3 x 0.2 x 0.1 cm. Entirely submitted in C1. D. Received in formalin labelled with proper patient identification (initials K, L) and GE junction Bx is a rossi tissue, 0.3 x 0.2 x 0.2 cm. Entirely submitted in D1. E. Received in formalin labelled with proper patient identification (initials K, L) and esophagus Bx is a pale randall tissue, 0.2 x 0.2 x 0.1 cm. Entirely submitted in E1. F. Received in formalin labelled with proper patient identification (initials K, L) and ascending colon bxs are two rossi tissues, 0.2 x 0.2 x 0.1 cm and 0.3 x 0.2 x 0.1 cm. Entirely submitted in F1. G. Received in formalin labelled with proper patient identification (initials K, L) and proximal transverse Bx are two rossi tissues averaging 0.3 x 0.2 x 0.1 cm. Entirely submitted in G1. H. Received in formalin labelled with proper patient identification (initials K, L) and descending colon Bx are three rossi tissues ranging from 0.1 cm in greatest dimension to 0.3 x 0.2 x 0.2 cm. Entirely submitted in H1. I. Received in formalin labelled with proper patient identification (initials K, L) and sigmoid colon Bx are two rossi tissues, 0.3 x 0.2 x 0.1 cm and 0.4 x 0.2 x 0.2 cm. Entirely submitted in I1. J. Received in formalin labelled with proper patient identification (initials K, L) and rectal Bx are two rossi tissues, 0.2 x 0.1 by less than 0.1 cm and 0.3 x 0.2 x 0.1 cm. Entirely submitted in J1. NARENDRA MA(ASCP) 10/12/2021 8:23 10/13/2021 17:21 EDT [facility] Performing Lab [facility] 17:21 EDT [facility] Scanned Images 10/13/2021 17:21 EDT [facility] Tissue SPECIMEN FROM RECTUM / Unknown 10/11/2021 8:20 EDT 10/11/2021 23:11 EDT Tissue specimen (specimen) STOMACH STRUCTURE / Unknown 10/11/2021 8:20 EDT 10/11/2021 23:11 EDT Tissue specimen (specimen) STOMACH STRUCTURE / Unknown 10/11/2021 8:20 EDT 10/11/2021 23:11 EDT Tissue specimen (specimen) ESOPHAGEAL STRUCTURE / Unknown 10/11/2021 8:20 EDT 10/11/2021 23:11 EDT Tissue specimen (specimen) ESOPHAGEAL STRUCTURE / Unknown 10/11/2021 8:20 EDT 10/11/2021 23:11 EDT Tissue specimen (specimen) ASCENDING COLON STRUCTURE / Unknown 10/11/2021 8:20 EDT 10/11/2021 23:11 EDT Tissue specimen (specimen) TRANSVERSE COLON STRUCTURE / Unknown 10/11/2021 8:20 EDT 10/11/2021 23:11 EDT Tissue specimen (specimen) DESCENDING COLON STRUCTURE / Unknown 10/11/2021 8:20 EDT 10/11/2021 23:11 EDT Tissue specimen (specimen) SIGMOID COLON STRUCTURE / Unknown 10/11/2021 8:20 EDT 10/11/2021 23:11 EDT Tissue specimen (specimen) SPECIMEN FROM RECTUM / Unknown 10/11/2021 8:20 EDT 10/11/2021 23:11 EDT Nathaniel Dejesus MD PATHOLOGY ORDERABLES [facility] [address] [place] [address] documented in this encounter Visit Diagnoses Diagnosis Encounter for other general examination documented in this encounter Care Teams Equine Pharmacology Technician Relationship Specialty Start Date End Date Yehuda Stallworth DO [address] [place] [phone] PCP - General 05/15/16 10/15/21 Che Sharpe PA [address] [place] [phone] PCP - General 10/16/21 Terry Hall MD [address] [place] [phone] 07/02/14 documented as of this encounter
--- OUTSIDE RECORDS SUMMARY | 2024-01-03 01:09 | XMS_ITS | Encounter Summary ---
Author Organization [facility] Address [address] [place] [address] Care Team Providers Care Tipple Boss Name Role Phone Terry Hall MD Unavailable Yehuda Stallworth DO Primary Care Provider Che Sharpe Primary Care Provider + Encounter Details Date Type Department Care Team (Late st Contact Info) Description 01/11/2021 Lab Requisition [facility] Pathology & Laboratory Medicine - [facility] [address] [place], [place] [id number] Outr Resulting Lab, Provider Social History Tobacco [...] Comments FECAL BACTERIAL PATHOGENS BY PCR Routine 01/10/2021 22:00 EDT OVA/PARASITE EXAM Routine 01/10/2021 22: 00 EDT documented in this encounter Results * OVA/PARASITE EXAM (01/10/2021 22:00 EDT) Parasite No ova and parasites seen. 01/12/2021 14:00 EDT [facility] Feces SPECIMEN FROM RECTUM / Unknown 01/10/2021 22:00 EDT 01/11/2021 22:51 EDT Narrative [facility] - 01/12/2021 14:00 EDT (If Cryptosporidium, Cyclospora, or Microsporidium are suspected, specific tests must be requested.) Single negative specimen does not rule out the possibility of a parasitic infection. Provider Outr Resulting Lab MICROBIOLOGY - GENERAL ORDERABLES [facility] [address] [place] [address] * FECAL BACTERIAL PATHOGENS BY PCR (01/10/2021 22:00 EDT) Salmonella PCR Negative Negative 01/12/2021 10:21 EDT [facility] Shigella/Enteroin vasive E. coli Negative Negative 01/12/2021 10:21 EDT [facility] HN LAB CAMPYLOBACTER PCR Negative Negative 01/12/2021 10:21 EDT [facility] Shiga Toxin PCR Negative Negative 10:21 EDT [facility] Feces SPECIMEN FROM RECTUM / Unknown Stool Collect / Unknown 01/10/2021 22:00 EDT 01/11/2021 22:51 EDT Provider Outr Resulting Lab MICROBIOLOGY - GENERAL ORDERABLES [facility] [address] [place] [address] documented in this encounter Visit Diagnoses Not on filedocumented in this encounter Care Teams Tipple Boss Relationship Specialty Start Date End Date Yehuda Stallworth DO [address] [place] [phone] PCP - General 05/15/16 10/15/21 Che Sharpe PA [address] [place] [address] [place] [phone] PCP - General 10/16/21 Terry Hall MD [address] [place] [phone] 07/02/14 documented as of this encounter
--- OUTSIDE RECORDS SUMMARY | 2024-01-03 01:09 | XMS_ITS | Encounter Summary ---
Author Organization [facility] Address [address] [place] [address] Care Team Providers Care Credit Interviewer Name Role Phone Terry Hall MD Unavailable Che Sharpe Primary Care Provider + Reason for Visit * Reason Onset Date Comments Medication Questions 11/03/2021 Encounter Details Date Type Department Care Team (Late st Contact Info) Description 11/03/2021 Telephone [facility] Endocrinology - [facility] [address] [place] [address] Breanna Flores MD [address] [facility] [address] [place] [address] Medication Questions Social History Tobacco Use Types [...] Telephone Encounter - Riddhi Charles RD - 11/06/2021 1508 EDT LVM requesting that pt hold onto pens for now. All unused pens that have been stored properly will advise pt to keep in the event of off pump needs. * Telephone Encounter - Kate Du - 11/03/2021 1353 EDT Patient was given pens until she received her pump and now she does not know what to do with the pens. Contact patient so she can figure out to keep the pens or throw them away. documented in this encounter Plan of Treatment Not on file documented as of this encounter Visit Diagnoses Not on filedocumented in this encounter Care Teams Credit Interviewer Relationship Specialty Start Date End Date Che Sharpe PA [address] [place] [address] [place] [phone] PCP - General 10/16/21 Terry Hall MD [address] [place] [phone] 07/02/14 documented as of this encounter
--- OUTSIDE RECORDS SUMMARY | 2024-01-03 01:09 | XMS_ITS | Encounter Summary ---
Author Organization [facility] Address [address] [place] [address] Care Team Providers Care Cutter Banana Room Name Role Phone Terry Hall MD Unavailable Che Sharpe Primary Care Provider + Reason for Visit * Reason Onset Date Comments Medication Management 10/26/2021 Follow-up 10/30/2021 Encounter Details Date Type Department Care Team (Late st Contact Info) Description 10/26/2021 Telephone [facility] Endocrinology - [facility] [address] [place] [address] Breanna Flores MD [address] [facility] [address] [place] [address] Medication Management; Follow-up Social History Tobacco Use Types Packs/Day [...] Telephone Encounter - Mago Harding - 11/02/2021 1134 EDT Handled in another encounter * Telephone Encounter - Lynda Browning - 10/30/2021 1346 EDT Patient states she spoke with Marichuy Quinones and she states she has not received the completed therapy orders and additional information. Patient is soon to leave for vacation and would like to have the omnipod up and going. * Telephone Encounter - Camila Sewell CDE - 10/27/2021 1101 EDT Omnipod 5 pump therapy orders completed and forwarded to Dr. lFores for signature. * Telephone Encounter - Juan Bradley - 10/26/2021 1536 EDT The patient's blood sugar has been in the 200s after she eats and she would like to know if she canincrease her humalog. Please call back to discuss documented in this encounter Plan of Treatment Not on file documented as of this encounter Visit Diagnoses Not on filedocumented in this encounter Care Teams Cutter Banana Room Relationship Specialty Start Date End Date Che Sharpe PA [address] [place] [address] [place] [phone] PCP - General 10/16/21 Terry Hall MD [address] [place] [phone] 07/02/14 documented as of this encounter
--- OUTSIDE RECORDS SUMMARY | 2024-01-03 01:09 | XMS_ITS | Encounter Summary ---
Author Organization [facility] Address [address] [place] [address] Care Team Providers Care Field Handyman Name Role Phone Terry Hall MD Unavailable Yehuda Stallworth DO Primary Care Provider Reason for Visit * Reason Onset Date Comments Blood Glucose Review 10/11/2016 Encounter Details Date Type Department Care Team (Late st Contact Info) Description 10/11/2016 Telephone [facility] Endocrinology - [facility] [address] [place] [address] Camila Sewell CDE [address] [facility] [address] [place] [address] Blood Glucose Review Social History [...] Telephone Encounter - Camila Sewell RN-CDE - 10/11/2016 153 EDT Spoke with Emma, who took the second bydureon dose on Saturday night. She held her lantus. We will follow up with bs again next week. documented in this encounter Plan of Treatment Not on file documented as of this encounter Visit Diagnoses Not on filedocumented in this encounter Care Teams Field Handyman Relationship Specialty Start Date End Date Yehuda Stallworth DO [address] [place] [phone] PCP - General 05/15/16 10/15/21 Terry Hall MD [address] [place] [phone] 07/02/14 documented as of this encounter
--- OUTSIDE RECORDS SUMMARY | 2024-01-03 01:09 | XMS_ITS | Encounter Summary ---
Author Organization [facility] Address [address] [place] [address] Care Team Providers Care Architectural Practice Manager Name Role Phone Terry Hall MD Unavailable Yehuda Stallworth DO Primary Care Provider Che Sharpe Primary Care Provider + Encounter Details Date Type Department Care Team (Late st Contact Info) Description 12/31/2020 Lab Requisition [facility] Pathology & Laboratory Medicine - [facility] [address] [place], [place] [id number] Outr Resulting Lab, Provider Social History Tobacco [...] Date/Time Associated Diagnosis Comments ZZCOVID-19 TEST [facility] PCR Today 12/31/2020 9:17 EDT COVID-19 TESTING Routine 12/31/2020 9:17 EDT documented in this encounter Results * COVID-19 TEST [facility] PCR (12/31/2020 9:17 EDT) Swab ENTIRE NASOPHARYNX / Unknown 12/31/2020 9:17 EDT 01/01/2021 16:19 EDT Provider Outr Resulting Lab MICROBIOLOGY - GENERAL ORDERABLES Performing Organization Address City/State/[facility] Co de Phone Number [facility] [address] [place] [address] * COVID-19 TESTING (12/31/2020 9:17 EDT) COVID-19 rt-PCR Result Negative Negative 01/02/2021 12:03 EDT [facility] Comment: This test has not [...] performed using the luis SARS-CoV-2 assay ([employer] on the Luis 6800 System Performing Lab Luis [address] [facility] 01/02/2021 12:03 EDT [facility] Swab 12/31/2020 9:17 EDT 01/01/2021 16:19 EDT Provider Outr Resulting Lab MICROBIOLOGY - GENERAL ORDERABLES [facility] [address] [place] [address] documented in this encounter Visit Diagnoses Not on filedocumented in this encounter Care Teams Architectural Practice Manager Relationship Specialty Start Date End Date Yehuda Stallworth DO [address] [place] [phone] PCP - General 05/15/16 10/15/21 Che Sharpe PA [address] [place] [phone] PCP - General 10/16/21 Terry Hall MD [address] [place] [phone] 07/02/14 documented as of this encounter
--- OUTSIDE RECORDS SUMMARY | 2024-01-03 01:10 | XMS_ITS | Encounter Summary ---
Author Organization [facility] Address [address] [place] [address] Care Team Providers Care Rail Flaw Detector Operator Name Role Phone Terry Hall MD Primary Care Provider [phone] Encounter Details Date Type Department Care Team ([facility] st Contact Info) Description 07/01/2014 13:41 EDT - 07/01/2014 23:59 EDT Hospital Encounter [address] [address] Phill Agustin MD [address] [facility], [facility] [address] [place] [phone] Discharge Disposition: Home or Self Care Social History Tobacco Use Types Packs/Day Years Used Date Smoking Tobacco: Never Assessed Sex and Gender Information Value Date Recorded Sex Assigned at Female 01/29/2022 18:29 EDT Gender Identity Female 05/30/2019 9:03 EST Sexual Orientation Choose not to disclose 2023 15:46 EST documented as of this encounter Discharge Disposition Disposition Code Departure Means Destination Home or Self Usp documented in this encounter Plan of Treatment Not on file documented as of this encounter Visit Diagnoses Not on filedocumented in this encounter Care Teams Rail Flaw Detector Operator Relationship Specialty Start Date End Date Terry Hall MD PCP - General 06/03/14 07/01/14 documented as of this encounter
--- OUTSIDE RECORDS SUMMARY | 2024-01-03 01:10 | XMS_ITS | Encounter Summary ---
Author Organization [facility] Address [address] [place] [address] Care Team Providers Care Cartographic Aide Name Role Phone Unavailable Primary Care Provider Unavailabl e Encounter Details Date Type Department Care Team ([facility] st Contact Info) Description 12/29/2004 9:02 EDT Hospital Encounter [facility] - Other [address] [place] [address] Ashely Valiente NP Social History Tobacco Use Types Packs/Day Years [...] 15:46 EST documented as of this encounter Plan of Treatment Not on file documented as of this encounter Procedures Procedure Name Priority Date/Time Associated Diagnosis Comments [facility] ROUTINE 01/22/2005 16:39 EDT URINALYSIS WITH MICROSCOPIC IF POSITIVE Routine 12/29/2004 11:56 EDT UA REFLEX Routine 12/29/2004 11:56 EDT BACTERIAL CULTURE, URINE Routine 12/29/2004 11:56 EDT documented in this encounter Results * [facility] ROUTINE (01/22/2005 16:39 EDT) Anatomical Region Laterality Modality Other 01/22/2005 16:3 9 EDT Narrative 11/19/2008 1:32 EDT [id number],DEPRESSION Please refer to the separate [facility] report. Procedure Note Yehuda Lantigua MD - 11/19/2008 [id number],DEPRESSION Please refer to the separate [facility] report. Laura Herrera MD [facility] ORDERABLE S * BACTERIAL CULTURE, URINE (12/29/2004 11:56 EDT) Specimen Description Urine [facility] Result Less than 10,000 CFU/ml Mixed gram positive growth [facility] Report Status Final [id number] [facility] 12/29/2004 11:5 6 EDT 12/29/2004 11:56 EDT Ashely Valiente NP MICROBIOLOGY - GENER AL ORDERABLES Performing Organization Address [facility] de Phone Number [facility] [address] [place] [address] * UA REFLEX (12/29/2004 11:56 EDT) UA Billing Microscopic not indicated. [facility] 12/29/2004 11:5 6 EDT 12/29/2004 11:56 EDT Ashely Valiente NP URINALYSIS ORDERABLE S Performing Organization Address [facility] Co de Phone Number [facility] [address] [place] [address] * (ABNORMAL) URINALYSIS (12/29/2004 11:56 EDT) Color, UA Yellow [facility] Clarity, UA Clear [facility] Glucose, UA Norm NORM [facility] Bilirubin, UA Neg NEG [facility] Ketones, UA Neg NEG [facility] Specific [place], Urine 1.015 1.005 - 1.02 [facility] Blood, UA Neg NEG [facility] pH, UA 7.0 5.0 - 9.0 [facility] Protein, UA Neg NEG [facility] Urobilinogen, UA 1.0(A) NORM mg/dL [facility] Nitrite, UA Neg NEG [facility] Leuk Esterase Neg NEG [facility] 12/29/2004 11:5 6 EDT 12/29/2004 11:56 EDT Ashely Valiente NP URINALYSIS ORDERABLE S [facility] [address] [place] [address] documented in this encounter Visit Diagnoses Not on filedocumented in this encounter
--- OUTSIDE RECORDS SUMMARY | 2024-01-03 01:10 | XMS_ITS | Encounter Summary ---
Author Organization [facility] Address [address] [place] [address] Care Team Providers Care Credit Review Manager Name Role Phone Unavailable Primary Care Provider Unavailabl e Encounter Details Date Type Department Care Team (Latest Contact Info) Description 04/21/2005 3:03 EST - 04/21/2005 11:59 EST Hospital Encounter [facility] [address] [place] [address] Frederick Pantoja MD [address] [place] [address] Discharge Disposition: Home or Self Care Social History Tobacco Use Types Packs/Day Years Used Date Smoking Tobacco: Never Assessed Sex and Gender Information Value Date Recorded Sex Assigned at Female 01/29/2022 18:29 EDT Gender Identity Female 05/30/2019 9:03 EST Sexual Orientation Choose not to disclose 2023 15:46 EST documented as of this encounter Discharge Disposition Disposition Code Departure Means Destination Home or Self Care documented in this encounter Plan of Treatment Not on file documented as of this encounter Procedures Procedure Name Priority Date/Time Associated Diagnosis Comments URINALYSIS WITH MICROSCOPIC IF POSITIVE Routine 04/21/2005 3:46 EST UA REFLEX Routine 04/21/2005 3:46 EST URINE CULTURE IF POSITIVE Routine 04/21/2005 3:46 EST documented in this encounter Results * UA REFLEX (04/21/2005 3:46 EST) UA Billing Microscopic not indicated. [facility] 04/21/2005 3:46 EST 04/21/2005 3:51 EST Frederick Pantoja MD URINALYSIS ORDERA BLES Performing Organization Address [facility] de Phone Number [facility] [address] [place] [address] * URINALYSIS (04/21/2005 3:46 EST) Color, UA Yellow [facility] Clarity, UA Clear [facility] Glucose, UA Norm NORM [facility] Bilirubin, UA Neg NEG [facility] Ketones, UA Neg NEG [facility] Specific [place], Urine 1.025 1.005 - 1.02 [facility] Blood, UA Neg NEG [facility] pH, UA 6.5 5.0 - 9.0 [facility] Protein, UA Neg NEG [facility] Urobilinogen, UA Norm NORM mg/dL [facility] Nitrite, UA Neg NEG [facility] Leuk Esterase Neg NEG [facility] 04/21/2005 3:46 EST 04/21/2005 3:51 EST Frederick Pantoja MD URINALYSIS ORDERA BLES Performing Organization Address [facility] de Phone Number [facility] [address] [place] [address] * CULTURE IF UA POSITIVE (04/21/2005 3:46 EST) Culture if Indicated Culture not indicated by urinalysis results. [facility] 04/21/2005 3:46 EST 04/21/2005 3:51 EST Frederick Pantoja MD MICROBIOLOGY - GE NERAL ORDERABLES Performing Organization Address [facility] de Phone Number [facility] [address] [place] [address] documented in this encounter Visit Diagnoses Not on filedocumented in this encounter
--- OUTSIDE RECORDS SUMMARY | 2024-01-03 01:10 | XMS_ITS | Encounter Summary ---
Author Organization [facility] Address [address] [place] [address] Care Team Providers Care Reuse Technician Name Role Phone Terry Hall MD Primary Care Provider [phone] Encounter Details Date Type Department Care Team (Late st Contact Info) Description 07/01/2014 Orders Only [address] [address] Iris Tran, RN Social History Tobacco Use Types Packs/Day [...] on filedocumented in this encounter Care Teams Reuse Technician Relationship Specialty Start Date End Date Teryr Hall MD PCP - General 06/03/14 07/01/14 documented as of this encounter
--- OUTSIDE RECORDS SUMMARY | 2024-01-03 01:10 | XMS_ITS | Encounter Summary ---
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 [employer] Encounter Details Date Type Department Care Team (Late st Contact Info) Description 08/07/2016 Telephone [facility] Endocrinology - [facility] [address] [place] [address] Greta Galicia NP [address] [facility] [address] [place] [address] Letter for School/Work (for Physical at [employer]) Social History Tobacco Use Types Packs/Day Years [...] Notes * Telephone Encounter - Crystal Puente, [place] - 08/08/2016 0856 EDT Faxed letter to Tommy./KAMINI * Telephone Encounter - Manisha Ramirez - 08/07/2016 0923 EDT 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 Please call with Questions and fax letter to: [phone] documented in this encounter Plan of Treatment Not on file documented as of this encounter Visit Diagnoses Not on filedocumented in this encounter Care Teams Patrol Captain Relationship Specialty Start Date End Date Yehuda Stallworth DO [address] [place] [phone] PCP - General 05/15/16 10/15/21 Terry Hall MD [address] [place] [id number] 07/02/14 documented as of this encounter
--- OUTSIDE RECORDS SUMMARY | 2024-01-03 01:10 | XMS_ITS | Encounter Summary ---
Author Organization [facility] Address [address] [place] [address] Care Team Providers Care Liquor Stores [employer] Supervisor Name Role Phone Unavailable Primary Care Provider Unavailabl e Encounter Details Date Type Department Care Team (Latest Contact Info) Description 07/25/2005 0:06 EDT - 07/25/2005 11:59 EDT Hospital Encounter [facility] Emergency Department - [facility] [address] [place] [address] Emergency, Default, MD Discharge Disposition: Home or Self Care Social [...] Procedure Name Priority Date/Time Associated Diagnosis Comments HOLD SST Routine 07/25/2005 1:52 EDT HOLD PURPLE TOP Routine 07/25/2005 1:52 EDT documented in this encounter Results * HOLD SST (07/25/2005 1:52 EDT) Hold SST Hold for further testing. Specimen will be held for 30 days. [facility] 07/25/2005 1:52 EDT 07/25/2005 1:57 EDT Default Emergency MD LAB INFO SERVICE AN D SUPPORT & PHONE RESULT Performing Organization Address [facility] de Phone Number [facility] [address] [place] [address] * HOLD PURPLE TOP (07/25/2005 1:52 EDT) Hold Purple Top EDTA for hematology will be discarded after 48 hours, differential not available after 12 hours. [facility] 07/25/2005 1:52 EDT 07/25/2005 1:57 EDT Default Emergency MD LAB INFO SERVICE AN D SUPPORT & PHONE RESULT Performing Organization Address [facility] Phone Number [facility] [address] [place] [address] documented in this encounter Visit Diagnoses Not on filedocumented in this encounter
--- OUTSIDE RECORDS SUMMARY | 2024-01-03 01:10 | XMS_ITS | Encounter Summary ---
Author Organization [facility] Address [address] [place] [address] Care Team Providers Care Lock Setter Name Role Phone Unavailable Primary Care Provider Unavailabl e Encounter Details Date Type Department Care Team (Latest Contact Info) Description 05/29/2005 16:28 EST Hospital Encounter [facility] - Other [address] [place] [address] Ashely Valiente NP Discharge Disposition: Home or Self Care Social [...] Procedure Name Priority Date/Time Associated Diagnosis Comments GROUP B STREPTOCOCCUS SUSCEPTIBILITY Routine 05/29/2005 10:00 EST documented in this encounter Results * GROUP B STREPTOCOCCUS SUSCEPTIBILITY (05/29/2005 10:00 EST) Specimen Description Vaginal and Rectal [facility] Result NO GROUP B BETA STREPTOCOCCI ISOLATED [facility] Report Status Final [id number] [facility] 05/29/2005 10:0 0 EST 05/29/2005 18:49 EST Ashely Valiente NP [facility] [address] [place] [address] documented in this encounter Visit Diagnoses Not on filedocumented in this encounter
--- OUTSIDE RECORDS SUMMARY | 2024-01-03 01:10 | XMS_ITS | Encounter Summary ---
Author Organization [facility] Address [address] [place] [address] Care Team Providers Care Can Crimper Name Role Phone Unavailable Primary Care Provider Unavailabl e Encounter Details Date Type Department Care Team ([facility] st Contact Info) Description 07/25/2005 Office Visit [facility] [address] [place] [address] Mack Ronquillo MD Social History Tobacco Use Types Packs/Day Years Used Date Smoking Tobacco: Never Assessed Sex and Gender Information Value Date Recorded Sex Assigned at Female 01/29/2022 18:29 EDT Gender Identity Female 05/30/2019 9:03 EST Sexual Orientation Choose not to disclose 2023 15:46 EST documented as of this encounter Progress Notes * Mack Ronquillo MD - 06/15/2009 194 EST Department - Physician Summary Registration Date/Time: 07/25/2005 0:06 Arrived- By private vehicle. Historian - patient. HISTORY OF PRESENT ILLNESS Chief Complaint: VOMITING and DIARRHEA. This started last night and is still present. She has had nausea, vomiting and diarrhea. The patient has had contact with a sick daughter. The illness is described as severe. Patient has not had similar symptoms previously. Not recently seen/assessed. REVIEW OF SYSTEMS No fever or chills. PAST HISTORY Gallstones. S/p lap rené 12/24. History of previous surgery. Allergies: See nurses notes. PHYSICAL EXAM Appearance: Alert. Patient in mild distress. ENT: Pharynx normal. ( MMM). CVS: Heart sounds normal. No cardiac murmur or extra heart sounds. Respiratory: No respiratory distress. Breath sounds normal. Abdomen: Moderate tenderness in the upper abdomen, right upper quadrant, epigastric area and left upper quadrant. Abdomen soft. Neuro: Oriented X 3. PROGRESS AND PROCEDURES ESonam Course: 03:41. Evaluation after reassessment, observation, IV fluids, Phenergan and Zofran. Symptoms much better. No abdominal pain, mild diffuse abdominal tenderness. No nausea. Disposition: Discharged home. Condition: stable. CLINICAL IMPRESSION Vomiting . Diarrhea . Abdominal pain (most likely secondary to vomiting). INSTRUCTIONS Drink plenty of fluids. Take clear liquids only. ( for the first few hours). Use compazine pills, one every 8 hours if needed for nausea. Warnings: GENERAL WARNINGS: Return or contact your physician immediately if your condition worsens or changesunexpectedly, if not improving as expected, or if other problems arise. Follow-up: Follow up with your doctor in two if not better. (Electronically signed by Mack Ronquillo M.D. 07/27/2005 22:43) Department - Nursing Summary Registration Date/Time: 07/25/2005 0:06 TRIAGE Initial Assessment Acuity: LEVEL 3. BP: 117 / 73. HR: 102. RR: 16. Temp: 37.1 tympanic. Alert. --0008 Mikayla Brewer R.N. Medications None. --0008 Mikayla Brewer R.N. Allergies PAXIL - symptoms consisted of swelling. --0008 Mikayla Brewer R.N. History Chief Complaint: ABDOMINAL PAIN, NAUSEA, VOMITING and DIARRHEA. This started just prior to arrival. Relates location as in the right abdomen and generalized acrossabdomen. Pain level now: 5/10. PAST HX: Negative. No history of previous surgery. SOCIAL HX: Nonsmoker. No alcohol use. Functional assessment: no impairments noted. Arrived by private vehicle. Historian: patient. --0008 Mikayla Brewer R.N. PHYSICAL ASSESSMENT Ambulatory to room. Alert. Oriented X 3. The patient is in moderate distress. Respirations not labored. Mucous membranes are pink. Skin is warm and dry. --000 Mikayla Brewer R.N. NURSING PROGRESS NOTES Progress Blood samples drawn with syringe by tech and sent to lab: tiger top; total amount drawn 5 mL. --205 Joby Brooks E.M.T. PHENERGAN 12.5 mg diluted with NS slow IVP. IV patency established. IV site checked: no pain, redness, or swelling. IV flushed thoroughly pre- and post- medication administration. Sedativedrug warninggiven to the patient. . --222 Lexis Lua R.N. ( resting comfortably, watching TV; lights turned off). --222 Lexis Lua R.N. ZOFRAN 4 mg diluted with IV fluid slow IVP over 1 minute. IV patency established. IV site checked: no pain, redness, or swelling. IV flushed thoroughly pre- and post-medication administration. . --258 Aissatou Dejesus R.N. IV / I&O Flowsheet IV site #1: location right hand. Started: 20g angiocath; aseptic technique used; good blood return noted; one attempt. Saline lock in place. IV patent. IV line accessed - flushed with saline and blood drawn. --205 Joby Brooks E.M.T. fluid started - #1 bag NS 1000 mL. Rate - wide open. --205 Joby Brooks, E.M.T. DISPOSITION / DISCHARGE BP: 104/51. HR: 102. RR: 16. O2 saturation: 96% room air. Patient reports pain level on departure as 0/10. Condition at departure: improved and stable. Discontinued: IV site (IV catheter intact). No learning barriers present. Discharge instructions reviewed with the patient. Reviewed medication side effects (compazine starter pack Rx#[id number] dispensed to pt at discharge #4 tabs). --406 Aissatou Dejesus R.N. Patient verbalized understanding. Written instructions provided in Georgian. The patient was discharged home and accompanied by car storer. The patient left the Emergency Department ambulatory and via private vehicle. Transportation Maintenance Worker driving. ( offering no complaints on discharge). --406 Trena Garcia R.N., E.M.T. Joanne Lalime R.N. Kristin Barwin, R.N. Locked/Released at 07/25/2005 4:29 by Aissatou Dejesus R.N. documented in this encounter Plan of Treatment Not on file documented as of this encounter Visit Diagnoses Not on filedocumented in this encounter
--- OUTSIDE RECORDS SUMMARY | 2024-01-03 01:10 | XMS_ITS | Encounter Summary ---
Author Organization [facility] Address [address] [place] [address] Care Team Providers Care Shipping Room Supervisor Name Role Phone Terry Hall MD Unavailable Unknown, Provider Primary Care Provider [phone] Reason for Visit * Reason Onset Date Comments Prior Auth, Medication 01/12/2016 WELCHOL 6 25 MG TABLET Encounter Details Date Type Department Care Team (Late st Contact Info) Description 01/12/2016 Telephone [facility] Endocrinology - [facility] [address] [place] [address] Greta Galicia NP [address] [facility] [address] [place] [address] Prior Auth, Medication (WELCHOL 625 MG TABLET) Social History Tobacco Use Types Packs/Day Years [...] visiting a doctor's office or shopping? No 08/10/2015 Cognitive Status Response Date of Assessm ent Because of a physical, menta l, or emotional condition, does this person have serious difficulty concentrating, remembering, or making decisions? No 08/10/2015 documented as of this encounter Miscellaneous Notes * Telephone Encounter - Teresita Dunne - 01/12/2016 1147 EDT Rcvd fax from [place] Medicaid with APPROVAL for: Drug NDC# and Name: [id number] - Welchol Tab 625 mg Tracking #: [id number] PA #: [id number] Dates: 01/12/2016 - 01/11/2017 Qty / Days Supply Restriction: 180 / 90 Medicaid ID#: [id number] Called pharmacy - they were just filling, will notify pt once ready for flower picker. * Telephone Encounter - Teresita Dunne - 01/12/2016 0901 EDT Rcvd fax from pharmacy indicating PA required for Welchol 625 mg tablet. Completed [place] Medicaid PA Request form and e-filed using [facility] to initiate this process. documented in this encounter Plan of Treatment Not on file documented as of this encounter Visit Diagnoses Not on filedocumented in this encounter Care Teams Shipping Room Supervisor Relationship Specialty Start Date End Date Unknown, MD Simone [address] [place] [address] PCP - General 10/17/15 05/14/16 Terry Hall MD [address] [place] [id number] 07/02/14 documented as of this encounter
--- OUTSIDE RECORDS SUMMARY | 2024-01-03 01:10 | XMS_ITS | Encounter Summary ---
Author Organization [facility] Address [address] [place] [address] Care Team Providers Care District Gauger Name Role Phone Terry Hall MD Primary Care Provider [phone] Encounter Details Date Type Department Care Team ([facility] st Contact Info) Description 06/30/2014 Orders Only [facility] Employee Health - [address] [id number] Swapna Diaz, RN [facility]NA [address] [place], [place] [phone] Antibody response examination (Primary Dx); Screening examination for pulmonary tuberculosis Social History Tobacco Use Types Packs/Day Years Used Date Smoking Tobacco: Never Assessed Sex and Gender Information Value Date Recorded Sex Assigned at Female 01/29/2022 18:29 EDT Gender Identity Female 05/30/2019 9:03 EST Sexual Orientation Choose not to disclose 2023 15:46 EST documented as of this encounter Plan of Treatment Not on file documented as of this encounter Results * TB BY QUANTIFERON, B (07/01/2014 13:47 EDT) TB Interpretation Negative 015 16:38 EDT [facility] Comment:Reference Range: Neg ative TB Antigen Value 0.00 IU/mL 07/07/19 15 16:38 EDT [facility] Comment: This is a qualitative test. ??The TB antigen IU/mL value is required for documentation on certain government reporting forms (e.g., Form I-693), but the magnitude of this value cannot be correlated to stage or degree of infection, level of immune responsiveness, or likelihood for progression to active disease. ?? Diagnosing or excluding tuberculosis disease, and assessing the probability of LTBI, requires a combination of epidemiological, historical, medical, and diagnostic findings that should be taken into account when interpreting QuantiFERON-TB results. Blood specimen (specimen) BLOOD SPECIMEN / Unknown 07/01/2014 13:47 EDT 07/01/2014 15:30 EDT Phill Agustin MD CHEMISTRY & BLO OD GAS ORDERABLES Performing Organization Address [facility] Co de Phone Number [facility] [address] [place] [address] * VARICELLA IGG ANTIBODY (07/01/2014 13:47 EDT) Varicella IgG Ab Interpretati on: Positive 07/02/2014 12:49 EDT [facility] Comment: Presence of detectable Varicella Zoster virus IgG antibodies. Blood specimen (specimen) BLOOD SPECIMEN / Unknown 07/01/2014 13:47 EDT 07/01/2014 15:40 EDT Phill Agustin MD IMMUNOLOGY AND SEROLOGY ORDERABLES Performing Organization Address [facility] Co de Phone Number [facility] [address] [place] [address] * HEPATITIS B SURFACE ANTIBODY (07/01/2014 13:47 EDT) Hepatitis B Surface Ab Negative 07/02/2014 11:45 EDT [facility] Comment: Reference Range: Unvaccinated: ??Negative Vaccinated: ??Positive HBs Antibody, Quant <5.0 mIU/mL 07/02/2014 11:45 EDT [facility] Comment: Patient is presumed to not be immune to infection with HBV. Reference Range: Positive: >=12.0 mIU/mL Indeterminate: >=5.0 to <12.0 mIU/mL Negative: <5.0 mIU/mL Blood specimen (specimen) BLOOD SPECIMEN / Unknown 07/01/2014 13:47 EDT 07/01/2014 15:40 EDT Phill Agustin MD CHEMISTRY & BLO OD GAS ORDERABLES [facility] [address] [place] [address] documented in this encounter Visit Diagnoses Diagnosis Antibody response examination- Primary Screening examination for pulmonary tuberculosis documented in this encounter Care Teams District Gauger Relationship Specialty Start Date End Date , TerryMD PCP - General 06/03/14 07/01/14 documented as of this encounter
--- OUTSIDE RECORDS SUMMARY | 2024-01-03 01:10 | XMS_ITS | Encounter Summary ---
Author Organization [facility] Address [address] [place] [address] Care Team Providers Care Hand Pleater Name Role Phone Unavailable Primary Care Provider Unavailabl e Encounter Details Date Type Department Care Team (Late st Contact Info) Description 08/03/2005 11:13 EDT - 08/03/2005 11:59 EDT Hospital Encounter [facility] - Other [address] [place] [address] Mago Ravi MD [address] [facility], [facility] [address] [place] [address] Discharge Disposition: Home or Self Care Social [...]
--- OUTSIDE RECORDS SUMMARY | 2024-01-03 01:10 | XMS_ITS | Encounter Summary ---
Author Organization [facility] Address [address] [place] [address] Care Team Providers Care Strategic Alliances Manager Name Role Phone Terry Hall MD Primary Care Provider Terry Hall MD Unavailable Reason for Visit * Reason Comments Diabetes Encounter Details Date Type Department Care Team (Latest Contact Info) Description 08/10/2015 13:40 EDT Office Visit [facility] Endocrinology - [facility] [address] [place] [address] Greta Galicia NP [address] [facility] [address] [place] [address] Type 2 diabetes mellitus with hyperglycemia (CMS-HCC) (HCC-CMS) (Primary Dx) Social History Tobacco Use Types [...] Sign Reading Time Taken Comments Blood Pressure 129/61 08/10/2015 1321 EDT Pulse 84 08/10/2015 1321 EDT Temperature - - Respiratory Rate - - Oxygen Saturation - - Inhaled Oxygen Concentration - - Weight 89.4 kg (197 lb 3.2 oz) 08/10/2015 1321 E DT Height 162.6 cm (5' 4) 08/10/2015 1321 EDT Body Mass Index 33.85 08/10/2015 1321 EDT documented in this encounter Functional Status [...] No 08/10/2015 documented as of this encounter Discharge Diagnoses Diagnosis E11.65 Type 2 diabetes mellitus with hyperglycemia-E11.65[ICD-10-CM] documented in this encounter Patient Instructions * Patient Instructions* Greta Galicia NP - 08/10/2015 13:53 EDT Your Hemoglobin A1C is: 8.4 With average blood sugar of: 194 It is better from last visit Your Goal at this time: Try 70/30 insulin see if easier for you to take Blood sugar goals are: 80-130 in AM, 90-160 prior to other meals. Your personal Blood sugar goals: 100-200 Check Blood Sugar: Other: 2-3 times daily. Recommend Diabetes Medic Alert Tag Especially if you take insulin Carry a source of glucose with you at all times, especially if you are on Insulin or oral medications Keep a diary of Blood sugars and Always Bring your Glucometer to clinic Medications for Diabetes: Right now stop Lantus and novolog And keep in refrigerator Try 70/30 take 26 units twice daily breakfast and supper Keep a diary of Blood sugars and Insulin doses. - Call next week with blood sugars and insulin doses [phone] Talk with one of our Triage Nurses can adjust doses over the phone. - OR FAX you can Blood sugars on Mondays [phone] - OR you can join My Health On-Line through [facility] can talk with person at check out to sign up Blood Pressure Goal is <130/80, Yours is: BP 129/61 mmHg Pulse 84 Ht 162.6 cm (64) Wt 89.449 kg (197 lb 3.2 oz) BMI 33.83 kg/m2 Cholesterol goal for LDL (bad cholesterol) is For those with Diabetes <100, for those with Diabetes and Heart Disease, 70 or less. Yours is: Lab Results Component Value Date CHOL 258 01/16/2006 HDL 44 01/16/2006 LDLBASE 184 01/16/2006 TRIG 148 01/16/2006 CHOLHDL 5.9 01/16/2006 If you are able to, recommend taking an aspirin a day Diet: Please work on a diet balanced in Calories, Protein, and carbohydrates Front Office Medical Assistant needed: declined Exercise: Please try to exercise for at least 30 minutes, at least 3 times a week if you are able to tolerate exercise. Eye Appointment: Yearly Recommend Dentist visit twice yearly Foot Care: Protect your feet by wearing supportive shoes that do not rub or chafe your feet. Never go bare foot. Wash, inspect, and apply non-perfumed skin cream to feet each night before bed. Fasting Labs Due: On the way out See you back: 3 months Please follow this Diabetes Treatment Plan and call the Diabetes Center at [phone] for questions or concerns about your blood sugars Hypoglycemia (Low Blood Sugar) What is it? A blood sugar of 70 or below. What are the symptoms? Early symptoms: caused by the effect on nervous system shakiness sweating nervousness impatience irritability chills & clamminess anxiety rapid heart beat light-headedness hunger Late symptoms: caused when the brain doesn???t get enough sugar sleepiness sadness anger stubbornness personality changes tingling or numbness in lips or tongue headaches blurred vision nightmares / difficulty sleeping nausea lack of coordination confusion delirium unconscious What causes it? Food: missed meal or snack, not enough food or carbs, losing weight Activity: more activity than usual, exercising harder or longer than usual Diabetes medication: too much insulin or diabetes medication Alcohol: drinking on an empty stomach How can I prevent the lows? 1. Check blood sugar levels regularly. Call your health care team when the blood sugar pattern is low. 2. Carefully follow your meal plan. 3. Eat food when you drink alcohol and limit it to no more than 2 drinks at a time. 4. Work with your diabetes team to ensure that your diabetes medication dose is correct. 5. Eat or carry snacks for activity that is unplanned or that is more strenuous than usual. How do I treat it?Rule of 15???s?? 1. Check blood sugar to be sure you are low. If you can???t check, treat yourself as it you are low. 2. Take 15 grams of carbohydrate It raises blood sugar about 30-50 points. If blood sugars less than 50 start with 30 grams of carbohydrate 3. Wait for 15 minutes for the sugar to be absorbed. 4. Check blood sugar again. If you are still low, repeat step 2 and 3. 5. May need to follow up with a snack to prevent another low blood sugar. If meal is over 1 hour away, take a snack consisting of a carb and protein. Choices of 15 Grams of Carbohydrate ?? cup of orange, apple, pineapple, or grapefruit juice 1/3 cup of grape, prune, or cranberry juice 1/3 can of regular soft-drink ?? c of regular gelatin 2 tablespoons of raisins 3 hard candies or 8 lifesavers 10 jelly beans 1 c of skim or 1% milk 3-4 glucose tablets 1 tube of glucose gel or cake icing 4 teaspoon of sugar 1 tablespoon of honey, maple syrup, corn syrup, jelly or jam My plan for treating lows: Choose 1 or 2 carb items and use that every time. To treat a low blood sugar I will use: or Why can???t I use chocolate, candy bars or pastries to treat? Fat in these foods slow down the absorption of sugar in the blood stream. You will stay low longer. documented in this encounter Ordered Prescriptions Prescription Sig Dispensed Refills Start Date End Da te insulin aspart protamine-insulin aspart (NOVOLOG FLEXPEN 70/30) 100 unit/mL (70-30) injectable penIndications:Type 2 diabetes mellitus with hyperglycemia ([facility]) Inject 26 Units into the skin BEFORE BREAKFAST & DINNER. 1 Box 11 08/10/2015 09/12/2016 documented in this encounter Progress Notes * Greta Galicia NP - 08/12/2015 1624 EDT Subjective: Patient ID: Emma Min is an 35 y.o. female. Chief Complaint Patient presents with ??? Diabetes HPI This is a 35 y.o. yr old female arrives today as a New Patient visit for treatment of Type 2 Diabetes. Diabetes diagnosed 2004. Initially from [place] moved back to [facility] last year from [facility]. Due to marital problems, now . Raising 2 daughters. 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 Pertinent Past Medical History: Insomnia feels it is due to stressors in her life. Diabetes Complications and Symptoms: Recent eye spencer't denies retinopathy last eye appointment. Nocturia x1. Notes polydipsia/uria with high blood sugars. Occ numbness in feet. General health and social issues since last visit: Stable Contributory visits to PCP and or other subspecialties: Has established a PCP in [place] Changes in other pertinent medications: No. 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 She has 2 pre-teenage daughters. Not currently sexually active. Denies gestational diabetes. MGF had DM. Pertinent Family History: Maternal grandfather had diabetes. Current diabetes medications include: Lantus 45 units every evening novolog 14 units before each meal and metformin 1000 mg twice daily. Forgets insulin at times. Finger stick monitoring: Keeps a diary: No. Brought Glucometer: Yes can not down load reviewed recall. Takes finger sticks: sporadically Trends: Mid 100s-mid 300s Highs include: Low to mid 300s Lows include: None. Life style alterations include: Eating habits: Not following diabetic diet Patient's weight: Wt Readings from Last 3 Encounters: 08/10/15 89.449 kg (197 lb 3.2 oz) 12/01/14 91.627 kg (202 lb) 09/23/14 89.495 kg (197 lb 4.8 oz) Patient exercise level is: Walks a lot at work, no other exercise Habits: Smoking: No, Alcohol: Seldom, Illicit Drugs: No. Self management: Self Care Efforts: Poor Barriers to adherence: Busy lifestyle Medic Alert: No Quick source of Glucose: No Rotates Injection Sites: No Last Eye appointment: ~ 1 year ago Dental: No Podiatry or Orthopaedics: No Lab Results Component Value Date HGBA1C 8.4* 08/10/2015 Lab Results Component Value Date CHOL 234 08/10/2015 HDL 49 08/10/2015 LDLBASE 143 08/10/2015 TRIG 209 08/10/2015 CHOLHDL 4.8 08/10/2015 Lab Results Component Value Date BUN 11 08/10/2015 CREATININE 0.51* 08/10/2015 NA 137 08/10/2015 K 4.3 08/10/2015 Lab Results Component Value Date ALT 19 08/10/2015 Lab Results Component Value Date LABALBU 4.1 08/10/2015 UCREA 104.2 08/10/2015 MICRALBCRRAT 7.7 08/10/2015 No components found for: GFR Lab Results Component Value Date TSH 1.06 08/10/2015 Patient Active Problem List Diagnosis ??? Diabetes No past medical history on file. No past surgical history on file. No family history on file. Social History Social History ??? Marital Status: Spouse Name: N/A ??? Number of Children: N/A ??? Years of Education: N/A Occupational History ??? Not on file. Social History Main Topics ??? Smoking status: Former Smoker ??? Smokeless tobacco: Not on file ??? Alcohol Use: Not on file ??? Drug Use: Not on file ??? Sexual Activity: Not on file Other Topics Concern ??? Not on file Social History Narrative Current Outpatient Prescriptions on File Prior to Visit Medication Sig Dispense Refill ??? blood glucose (FREESTYLE INSULINX) test strips Use 4 Strips as directed daily On basal bolus insulin 300 Each 3 ??? insulin pen needles 31G x 3/16 Use 4 pen needles as directed daily Brand: BD Ultra Fine Mini 400 Each 3 No current facility-administered medications on file prior to visit. Allergies Allergen Reactions ??? Seroquel [Quetiapine] Anaphylaxis All anti depressant medications ??? Lactose Diarrhea ??? Latex, Natural Rubber Swelling and Rash labs done at [facility] 07/2014 creatinine 0.71, GFR greater than 60, potassium 4.2, all other electrolytes as well as liver function tests within normal limits. ROS - See HPI Objective: BP 129/61 mmHg Pulse 84 Ht 162.6 cm (64) Wt 89.449 kg (197 lb 3.2 oz) BMI 33.83 kg/m2 Physical Exam A1C today: 8.4 compared to 10.0 in 09/2014. Weight and changes: See above. Blood Pressure is: At goal. Lipids: Done at [facility] in 07/2014 total cholesterol 214, HDL 42, LDL 149, triglycerides 111, ratio 5.09, General Impression and Affect: Obese young woman, with flattened affect arrives with her mother. Eyes: EOMs intact Neck: No nodes or thyromegaly Feet and Extremities including Neuro: Shoes: Has on supportive shoes General Impression: Not currently at risk for breakdown Skin and Nails: Intact Swelling: No Deformities: No Pulses: Palpable Sensation Monofilament intact in all areas, Vibratory sense intact at great toes, DTRs 2+. Discussion and Recommendation: States physically active at work, trying to watch diet. Difficult todo intensive self care, singlr Mom, working, commuting from [place]. Often skips novologat lunch. More reliable with insulin at breakfast and supper. Can try 70/30. See if this regimen better for her. Recommend regular SBGM to safely dose insulin. Reviewed hypoglycemia protocol. Is due for yearly screening Labs. I spent a total of 25 minutes in face to face time with this patient today and 20 minutes of that time was spent counseling the patient on the risks and treatment options for diabetes. Assessment: 35 y.o. Woman with 11 yr H/O T2 Diabetes, insulin requiring. A1C has improved since first visit in September 2014. A1C is still elevated as she tends to forget Novolog dosing while at work. Will give trial of 70/30 BID to see if this improves, compliance and blood sugar control w/o hypoglycemia. Reviewed hypoglycemia protocol. Also due for yearly screening labs (ordered). F/U 3 months, communicate between visits for questions, problems with glycemic management. Plan: Your Hemoglobin A1C is: 8.4 With average blood sugar of: 194 It is better from last visit Your Goal at this time: Try 70/30 insulin see if easier for you to take Blood sugar goals are: 80-130 in AM, 90-160 prior to other meals. Your personal Blood sugar goals: 100-200 Check Blood Sugar: Other: 2-3 times daily. Recommend Diabetes Medic Alert Tag Especially if you take insulin Carry a source of glucose with you at all times, especially if you are on Insulin or oral medications Keep a diary of Blood sugars and Always Bring your Glucometer to clinic Medications for Diabetes: Right now stop Lantus and novolog And keep in refrigerator Try 70/30 take 26 units twice daily breakfast and supper Continue metformin Keep a diary of Blood sugars and Insulin doses. - Call next week with blood sugars and insulin doses [phone] Talk with one of our Triage Nurses can adjust doses over the phone. - OR FAX you can Blood sugars on Mondays [phone] - OR you can join My Health On-Line through [facility] can talk with person at check out to sign up Blood Pressure Goal is <130/80, Yours is: BP 129/61 mmHg Pulse 84 Ht 162.6 cm (64) Wt 89.449 kg (197 lb 3.2 oz) BMI 33.83 kg/m2 Cholesterol goal for LDL (bad cholesterol) is For those with Diabetes <100, for those with Diabetes and Heart Disease, 70 or less. Yours is: Lab Results Component Value Date CHOL 258 01/16/2006 HDL 44 01/16/2006 LDLBASE 184 01/16/2006 TRIG 148 01/16/2006 CHOLHDL 5.9 01/16/2006 If you are able to, recommend taking an aspirin a day Diet: Please work on a diet balanced in Calories, Protein, and carbohydrates Front Office Medical Assistant needed: declined Exercise: Please try to exercise for at least 30 minutes, at least 3 times a week if you are able to tolerate exercise. Eye Appointment: Yearly Recommend Dentist visit twice yearly Foot Care: Protect your feet by wearing supportive shoes that do not rub or chafe your feet. Never go bare foot. Wash, inspect, and apply non-perfumed skin cream to feet each night before bed. Fasting Labs Due: On the way out See you back: 3 months Please follow this Diabetes Treatment Plan and call the Diabetes Center at [phone] for questions or concerns about your blood sugars Hypoglycemia (Low Blood Sugar) What is it? A blood sugar of 70 or below. What are the symptoms? Early symptoms: caused by the effect on nervous system shakiness sweating nervousness impatience irritability chills & clamminess anxiety rapid heart beat light-headedness hunger Late symptoms: caused when the brain doesn???t get enough sugar sleepiness sadness anger stubbornness personality changes tingling or numbness in lips or tongue headaches blurred vision nightmares / difficulty sleeping nausea lack of coordination confusion delirium unconscious What causes it? Food: missed meal or snack, not enough food or carbs, losing weight Activity: more activity than usual, exercising harder or longer than usual Diabetes medication: too much insulin or diabetes medication Alcohol: drinking on an empty stomach How can I prevent the lows? 1. Check blood sugar levels regularly. Call your health care team when the blood sugar pattern is low. 2. Carefully follow your meal plan. 3. Eat food when you drink alcohol and limit it to no more than 2 drinks at a time. 4. Work with your diabetes team to ensure that your diabetes medication dose is correct. 5. Eat or carry snacks for activity that is unplanned or that is more strenuous than usual. How do I treat it?Rule of 15???s?? 1. Check blood sugar to be sure you are low. If you can???t check, treat yourself as it you are low. 2. Take 15 grams of carbohydrate It raises blood sugar about 30-50 points. If blood sugars less than 50 start with 30 grams of carbohydrate 3. Wait for 15 minutes for the sugar to be absorbed. 4. Check blood sugar again. If you are still low, repeat step 2 and 3. 5. May need to follow up with a snack to prevent another low blood sugar. If meal is over 1 hour away, take a snack consisting of a carb and protein. Choices of 15 Grams of Carbohydrate ?? cup of orange, apple, pineapple, or grapefruit juice 1/3 cup of grape, prune, or cranberry juice 1/3 can of regular soft-drink ?? c of regular gelatin 2 tablespoons of raisins 3 hard candies or 8 lifesavers 10 jelly beans 1 c of skim or 1% milk 3-4 glucose tablets 1 tube of glucose gel or cake icing 4 teaspoon of sugar 1 tablespoon of honey, maple syrup, corn syrup, jelly or jam My plan for treating lows: Choose 1 or 2 carb items and use that every time. To treat a low blood sugar I will use: or Why can???t I use chocolate, candy bars or pastries to treat? Fat in these foods slow down the absorption of sugar in the blood stream. You will stay low longer. Emma was seen today for diabetes. Diagnoses and all orders for this visit: Type 2 diabetes mellitus with hyperglycemia Orders: - pravastatin (PRAVACHOL) 10 mg tablet; Take 10 mg by mouth daily. - POCT Hemoglobin A1c - Lipid Profile (Includes Cholesterol, Triglycerides, HDL, LDL); Future - Albumin, Urine; Future - Comprehensive Metabolic Panel (CMP); Future - Thyroid [place]; Future - insulin aspart protamine-insulin aspart (NOVOLOG FLEXPEN 70/30) 100 unit/mL (70-30) injectable pen; Inject 26 Units into the skin BEFORE BREAKFAST & DINNER. * Judy Chopra - 08/10/2015 1325 EDT Fingerstick blood sample obtained for POCT Hemoglobin A1C performed for this DOS at the order of Greta Galicia NP documented in this encounter Plan of Treatment Not on file documented as of this encounter Procedures Procedure Name Priority Date/Time Associated Diagnosis Comments POCT HEMOGLOBIN A1C Routine 08/10/2015 1 3:23 EDT Type 2 diabetes mellitus with hyperglycemia (CMS-HCC) ([facility]) documented in this encounter Results * THYROID CASCADE (08/10/2015 14:11 EDT) TSH 1.06 0.55 - 4.78 uIU/ml 08/10/2015 17:46 EDT [facility] Comment: TSH cascade is not recommended for patients in which pituitary or hypothalamic disorders are suspected. Blood specimen (specimen) BLOOD SPECIMEN / Unknown 08/10/2015 14:11 EDT 08/10/2015 15:20 EDT Greta Galicia NP CHEMISTRY & BLOOD G ORDERABLES [facility] [address] [place] [address] * (ABNORMAL) COMPREHENSIVE METABOLIC PANEL (CMP) (08/10/2015 14:11 EDT) Potassium 4.3 3.5 - 5.0 mEq/L 08/10/2015 16:24 [facility] Comment: Slight hemolysis Hemolysis may elevate potassium result. Sodium 137 136 - 145 mEq/L 08/10/2015 16:24 [facility] Comment:Slight hemolysis Chloride 98 96 - 110 mEq/L 08/10/2015 16:24 [facility] Comment:Slight hemolysis CO2 24 24 - 32 mEq/L 08/10/2015 16:24 [facility] Comment:Slight hemolysis Total Alkaline Phosphatase 74 38 - 126 U/L 08/10/2015 16:24 [facility] Comment: Slight hemolysis Hemolysis will decrease ALKP result Suggest re-evaluation if clinically indicated Bilirubin, Total 0.8 <1.4 mg/dl 08/10/19 16 16:24 [facility] Comment: Slight hemolysis Results may be affected due to hemolysis. AST 19 15 - 46 U/L 08/10/2015 16:24 [facility] Comment: Slight hemolysis Results may be affected due to hemolysis. ALT 19 <53 U/L 08/10/2015 16:24 [facility] Comment: Slight hemolysis Results may be affected due to hemolysis. Albumin 4.1 3.4 - 4.9 g/dl 08/10/2015 16:24 [facility] Comment: Slight hemolysis Results may be affected due to hemolysis. Total Protein 6.6 6.3 - 8.2 g/dl 08/10/2015 16:24 [facility] Comment: Slight hemolysis Results may be affected due to hemolysis. Creatinine 0.51(L) 0.52 - 1.04 mg/dl 08/10/2015 16:24 [facility] Comment:Slight hemolysis GFR, Calculated 126 >60 ml/min/1.7 3m2 08/10/2015 16:24 [facility] Comment: eGFR calculated using CKD-EPI equation for non Americans. Multiply eGFR by 1.16 for Americans. BUN 11 10 - 26 mg/dl 08/10/2015 16:24 [facility] Comment: Slight hemolysis Results may be affected due to hemolysis. Calcium 9.0 8.5 - 10.5 mg/dl 08/10/2015 16:24 [facility] Comment:Slight hemolysis Calculated Calcium 9.3 8.5 - 10.5 mg/dl 08/10/2015 16:24 EDT [facility] Glucose, Serum 199(H) 70 - 100 mg/dl 08/10/2015 16:24 EDT [facility] Comment: Slight hemolysis Results may be affected due to hemolysis. Fasting? Unknown 08/10/2015 14:11 EDT [facility] Blood specimen (specimen) BLOOD SPECIMEN / Unknown 08/10/2015 14:11 EDT 08/10/2015 15:20 EDT Greta Galicia NP CHEMISTRY & BLOOD G ORDERABLES Performing Organization Address [facility] Co de Phone Number [facility] [address] [place] [address] * ALBUMIN, URINE (08/10/2015 14:11 EDT) Creatinine, Urn [place] 104.2 mg/dl 08/11/2015 9:20 EDT [facility] Ur Albumin mg/dl 0.8 mg/dl 08/11/2015 12:30 T [facility] Ur Alb ug/mg Crea 7.7 ug/mg Crea 08/11/2015 12:30 EDT [facility] Comment: Normal: <30 ug/mg creat High albuminuria: 30-300 ug/mg creat Very high albuminuria: >300 ug/mg creat Urine specimen (specimen) URINE / Unknown 08/10/2015 14:11 EDT 08/10/2015 15:22 EDT Greta aGlicia NP CHEMISTRY & BLOOD G ORDERABLES Performing Organization Address [facility] Co de Phone Number [facility] [address] [place] [address] * LIPID PROFILE (INCLUDES CHOLESTEROL, TRIGLYCERIDES, HDL, LDL) (08/10/2015 14:11 EDT) Cholesterol 234 mg/dl 08/10/2015 16:24 EDT [facility] Comment: Slight hemolysis Desirable:<200 Borderline High:200-239 High:>bd=725 Triglycerides 209 mg/dl 08/10/2015 16:24 [facility] Comment: Slight hemolysis Normal:<150 Borderline High:150-199 High:200-499 Very High:>hw=391 HDL 49 mg/dl 08/10/2015 16:24 [facility] Comment: Slight hemolysis Low:<40 Normal:40-60 Desirable: >60 LDL, Calculated 143 mg/dl 6 16:24 [facility] Comment: Optimal:<100 Near Optimal:100-129 Borderline High:130-159 High:160-189 Very High:>sk=636 Chol/HDL Ratio 4.8 08/10/2015 16:24 [facility] Fasting? Unknown 08/10/2015 14:11 [facility] Non HDL Cholesterol 185 mg/dl 08/10/2015 16:24 [facility] Comment: Slight hemolysis Desirable:<130 Borderline:130-159 High: 160-189 Very High: >lu=237 Blood specimen (specimen) BLOOD SPECIMEN / Unknown 08/10/2015 14:11 EDT 08/10/2015 15:20 EDT Greta Galicia NP CHEMISTRY & BLOOD G ORDERABLES Performing Organization Address [facility] Co de Phone Number [facility] [address] [place] [address] * (ABNORMAL) POCT HEMOGLOBIN A1C (08/10/2015 13:23 EDT) Hemoglobin A1c, POC 8.4(A) 5.7 % POINT OF CARE 08/10/2015 13:2 3 EDT Greta Galicia NP POINT OF CARE TEST ORDERABLES Performing Organization Address [facility] Co de Phone Number POINT OF CARE documented in this encounter Visit Diagnoses Diagnosis Type 2 diabetes mellitus with hyperglycemia ([facility])- Primary Type II or unspecified type diabetes mellitus without mention of complication, not stated as uncontrolled documented in this encounter Discontinued Medications Medication Sig Discontinue Reason Start Date End Da te metFORMIN (GLUCOPHAGE-XR) 500 mg ER tabletIndications:Type II or unspecified type diabetes mellitus without mention of complication, uncontrolled Take 1 Tab by mouth daily 09/23/2014 08/10/2015 insulin glargine (LANTUS SOLOSTAR) 100 unit/mL (3 mL) injection penIndications:Type II or unspecified type diabetes mellitus without mention of complication, uncontrolled Inject 45 Units into the skin at bedtime 09/23/2014 08/10/2015 insulin aspart (NOVOLOG FLEXPEN) 100 unit/mL injectable penIndications:Type II or unspecified type diabetes mellitus without mention of complication, uncontrolled Inject 8 Units into the skin 3 times daily with meals 09/23/2014 08/10/2015 documented as of this encounter Historical Medications * This list may reflect changes made after this encounter. Medication Sig Dispensed Refills Start Date End Date pravastatin (PRAVACHOL) 10 mg tabletIndications:Type 2 diabetes mellitus with hyperglycemia ([facility]) Take 10 mg by mouth daily. 01/11/2016 added in this encounter Care Teams Strategic Alliances Manager Relationship Specialty Start Date End Date Terry Hall MD PCP - General 07/02/14 10/16/15 Terry Hall MD [address] [place] [id number] 07/02/14 documented as of this encounter
--- OUTSIDE RECORDS SUMMARY | 2024-01-03 01:10 | XMS_ITS | Encounter Summary ---
Author Organization [facility] Address [address] [place] [address] Care Team Providers Care Pony Worker Name Role Phone Terry Hall MD Primary Care Provider [phone] Terry Hall MD Unavailable Reason for Visit * Reason Onset Date Comments Appointment Related 08/01/2015 Encounter Details Date Type Department Care Team (Late st Contact Info) Description 08/01/2015 Telephone [facility] Endocrinology - [facility] [address] [place] [address] Greta Galicia NP [address] [facility] [address] [place] [address] Appointment Related Social History Tobacco [...] visiting a doctor's office or shopping? No 12/01/2014 Cognitive Status Response Date of Assessm ent Because of a physical, menta l, or emotional condition, does this person have serious difficulty concentrating, remembering, or making decisions? No 12/01/2014 documented as of this encounter Miscellaneous Notes * Telephone Encounter - Nasima Sanchez - 08/01/2015 0902 EDT Reason for Call: Appointment Related Summary/Symptoms: pt wanting to re-schedule her CDE and fur missed 01/2015, may need new referral for CDE Nasima Sanchez 08/01/2015 9:02 documented in this encounter Plan of Treatment Not on file documented as of this encounter Visit Diagnoses Not on filedocumented in this encounter Care Teams Pony Worker Relationship Specialty Start Date End Date Terry Hall MD PCP - General 07/02/14 10/16/15 Terry Hall MD [address] [place] [id number] 07/02/14 documented as of this encounter
--- OUTSIDE RECORDS SUMMARY | 2024-01-03 01:10 | XMS_ITS | Encounter Summary ---
Author Organization [facility] Address [address] [place] [address] Care Team Providers Care Clinical Trainer Name Role Phone Unavailable Primary Care Provider Unavailabl e Encounter Details Date Type Department Care Team (Latest Contact Info) Description 01/16/2006 10:34 EDT - 01/16/2006 11:59 EDT Hospital Encounter [facility] - Other [address] [place] [address] Leeanna Cohn MD [address] [place], [place] [id number] Discharge Disposition: Home or Self Care Social [...] Procedure Name Priority Date/Time Associated Diagnosis Comments COMPLETE BLOOD COUNT Routine 01/16/2006 11:30 EDT LIPID PROFILE (INCLUDES CHOLESTEROL, TRIGLYCERIDES, HDL, LDL) Routine 01/16/2006 11:30 EDT BASIC METABOLIC PANEL (BMP) Routine 01/16/2006 11:30 EDT documented in this encounter Results * LIPID PROFILE (INCLUDES CHOLESTEROL, TRIGLYCERIDES, HDL, LDL) (01/16/2006 11:30 EDT) Cholesterol 258 mg/dl [facility] Comment: Desirable:<200 Borderline:200-239 High Risk:>gm=688 Triglycerides 148 35 - 160 mg/dl [facility] HDL 44 mg/dl [facility] Comment: Highly Desirable:>60 Desirable:35-60 High Risk:<35 LDL, Calculated 184 mg/dl [facility] Comment: Desirable:<130 Borderline:130-159 High Risk:>vd=026 Chol/HDL Ratio 5.9 [facility] Fasting? Yes [facility] 01/16/2006 11:3 0 EDT 01/16/2006 21:09 EDT Leeanna Cohn MD CHEMISTRY & BLOOD G ORDERABLES Performing Organization Address City/State/[facility] Co de Phone Number [facility] [address] [place] [address] * (ABNORMAL) HEMAGRAM (01/16/2006 11:30 EDT) WBC 8.20 4.0 - 12.4 K/cmm [facility] RBC 4.25 3.86 - 5.04 M/cmm [facility] Hemoglobin 13.8 11.6 - 15.2 gm/dl [facility] HCT 40.9 34.9 - 44.4 % [facility] MCV 96 81 - 98 fl [facility] MCH 32.4 26.7 - 33.3 pg [facility] MCHC 33.6 32.1 - 35.9 gm/dl [facility] PLT 336(H) 141 - 320 K/cmm [facility] RDW-CV 13.5 11.7 - 14.6 % [facility] 01/16/2006 11:3 0 EDT 01/16/2006 21:09 EDT Leeanna Cohn MD HEMATOLOGY & PF4 OR DERABLES Performing Organization Address City/[facility] Co de Phone Number [facility] [address] [place] [address] * BASIC METABOLIC PANEL (01/16/2006 11:30 EDT) Sodium 140 136 - 145 mEq/L [facility] Potassium 4.3 3.5 - 5.0 mEq/L [facility] Chloride 105 96 - 110 mEq/L [facility] CO2 24 24 - 32 mEq/L [facility] BUN 11 10 - 26 mg/dl [facility] Creatinine 0.76 0.7 - 1.5 mg/dl [facility] GFR, Calculated >60 ml/min/1.7 3m2 [facility] Calcium 10.1 8.5 - 10.5 mg/dl [facility] Calculated Calcium 9.9 8.5 - 10.5 mg/dl [facility] Glucose, Serum 95 70 - 100 mg/dl [facility] Fasting? Yes [facility] 01/16/2006 11:3 0 EDT 01/16/2006 21:09 EDT Leeanna Cohn MD CHEMISTRY & BLOOD G ORDERABLES Performing Organization Address City/[facility] Co de Phone Number [facility] [address] [place] [address] documented in this encounter Visit Diagnoses Not on filedocumented in this encounter
--- OUTSIDE RECORDS SUMMARY | 2024-01-03 01:10 | XMS_ITS | Encounter Summary ---
Author Organization [facility] Address [address] [place] [address] Care Team Providers Care House Designer Name Role Phone Terry Hall MD Unavailable Unknown, Provider Primary Care Provider [phone] Encounter Details Date Type Department Care Team (Late st Contact Info) Description 05/01/2016 Orders Only [facility] Endocrinology - [facility] [address] [place] [address] Greta Galicia NP [address] [facility] [address] [place] [address] Type 1 diabetes mellitus without complication ([facility]) (Primary Dx) Social History Tobacco Use Types [...] No 08/10/2015 documented as of this encounter Plan of Treatment Not on file documented as of this encounter Results * (ABNORMAL) POCT HEMOGLOBIN A1C (05/15/2016 14:46 EST) Hemoglobin A1C, POC Interfaced 7.4(H) <5.7 % 05/15/2016 15:[address] [facility] child care supervisor ID [id number] 05/15/2016 15:[address] [facility] Comment:Test performed at En docrinology Blood specimen (specimen) BLOOD SPECIMEN / Unknown 05/15/2016 14:46 EST 05/15/2016 15:11 EST Greta Galicia NP POINT OF CARE TEST ORDERABLES [facility] [address] [place] [address] documented in this encounter Visit Diagnoses Diagnosis Type 1 diabetes mellitus without complication ([facility] Primary Type I (juvenile type) diabetes mellitus without mention of complication, not stated as uncontrolled documented in this encounter Care Teams House Designer Relationship Specialty Start Date End Date Unknown, Simone, [address] [place] [address] PCP - General 10/17/15 05/14/16 Terry Hall MD [address] [place] [address] 07/02/14 documented as of this encounter
--- OUTSIDE RECORDS SUMMARY | 2024-01-03 01:10 | XMS_ITS | Encounter Summary ---
Author Organization [facility] Address [address] [place] [address] Care Team Providers Care Zyglo Technician Name Role Phone Terry Hall MD Primary Care Provider [phone] Terry Hall MD Primary Care Provider [phone] Terry Hall MD Unavailable Encounter Details Date Type Department Care Team (Late st Contact Info) Description 07/01/2014 Phlebotomy Only [facility] [address] [place] [address] Clerk General Office, Outpatient Antibody response examination; Screening examination for pulmonary tuberculosis Social History [...] Procedure Name Priority Date/Time Associated Diagnosis Comments QUANTIFERON TB GOLD PLUS Routine 07/01/2014 13:47 EDT Screening examination for pulmonary tuberculosis HEPATITIS B SURFACE ANTIBODY Routine 07/01/2014 13:47 EDT Antibody response examination VARICELLA IGG ANTIBODY Routine 07/01/2014 13:47 EDT Antibody response examination documented in this encounter Results * TB BY QUANTIFERON, B (07/01/2014 13:47 EDT) TB Interpretation Negative 015 16:38 EDT [facility] Comment:Reference Range: Neg ative TB Antigen Value 0.00 IU/mL 07/07/19 15 16:38 EDT [facility] Comment: This is a qualitative [...] BLO OD GAS ORDERABLES Performing Organization Address [facility] Co de Phone Number [facility] [address] [place] [address] * VARICELLA IGG ANTIBODY (07/01/2014 13:47 EDT) Pathologist [facility] Varicella IgG Ab Interpretati on: Positive 07/02/2014 12:49 EDT [facility] Comment: Presence of detectable Varicella Zoster virus IgG antibodies. Blood specimen (specimen) BLOOD SPECIMEN / Unknown 07/01/2014 13:47 EDT 07/01/2014 15:40 EDT Phill Agustin MD IMMUNOLOGY AND SEROLOGY ORDERABLES Performing Organization Address City/[facility]/ZIP Co de Phone Number [facility] [address] [place] [address] * HEPATITIS B SURFACE ANTIBODY (07/01/2014 13:47 EDT) Pathologist [facility] Hepatitis B Surface Ab Negative 07/02/2014 11:45 EDT [facility] Comment: Reference Range: Unvaccinated: ??Negative Vaccinated: ??Positive HBs Antibody, Quant <5.0 mIU/mL 07/02/2014 11:45 EDT [facility] Comment: Patient is presumed to not be immune to infection with HBV. Reference Range: Positive: >=12.0 mIU/mL Indeterminate: >=5.0 to <12.0 mIU/mL Negative: <5.0 mIU/mL Blood specimen (specimen) BLOOD SPECIMEN / Unknown 07/01/2014 13:47 EDT 07/01/2014 15:40 EDT Phill Agustin MD CHEMISTRY & BLO OD GAS ORDERABLES [facility] [address] [place] [address] documented in this encounter Visit Diagnoses Diagnosis Antibody response examination Screening examination for pulmonary tuberculosis documented in this encounter Care Teams Zyglo Technician Relationship Specialty Start Date End Date Terry Hall MD PCP - General 06/03/14 07/01/14 Terry Hall MD PCP - General 07/02/14 10/16/15 Terry Hall MD [address] [place] [id number] 07/02/14 documented as of this encounter
--- OUTSIDE RECORDS SUMMARY | 2024-01-03 01:10 | XMS_ITS | Encounter Summary ---
Author Organization [facility] Address [address] [place] [address] Care Team Providers Care Ward Supervisor Name Role Phone Unavailable Primary Care Provider Unavailabl e Encounter Details Date Type Department Care Team ([facility] st Contact Info) Description 11/12/2006 Before PRISM Converted Visit ([facility]) [facility] - Maple conversion [address] [place] [address] Priscilla Heart MD [address] [place] [address] Social History Tobacco Use Types Packs/Day Years Used Date Smoking Tobacco: Never Assessed Sex and Gender Information Value Date Recorded Sex Assigned at Female 01/29/2022 18:29 EDT Gender Identity Female 05/30/2019 9:03 EST Sexual Orientation Choose not to disclose 2023 15:46 EST documented as of this encounter Progress Notes * [facility] - 02/23/2009 0251 EST NEUROLOGY HEALTH CARE SERVICE PROGRESS/FOLLOWUP NOTE - 11/12/2006 Emma is seen in follow up from her last appointment on November 28, 2004. She comes because of recurrent syncopal attacks, possible seizures. The last time we recommended an echocardiogram, EKG, and EEG, but Emma did not obtain studies because of . Emma still experiences some spells, episodes of passing out, which are getting worse. As she mentioned previously, her episodes of passing out started at age 15. They started from ringing in her ears, her vision became blurred, she saw speckles, and her vision became black and black and suddenlyshe is losing her consciousness. Emma told us today that this episode of loss of consciousness lasted from five seconds and then the worse one lasted for three or four hours. She was always able to catch herself and has enough time to sit down in the chair or to lie down on the couch. Her Mom witnessed a couple of such episodes more than 5-7 years ago, and one episode was watched by her friend five years ago and this friendis not available. All these episodes happened during the daytime. Sometimes they are aggravated by anxiety, but sometimes not. Emma hyperventilated in association with some after, but was able to remember the time of the occurrence. After waking up,she feels disoriented and she told me that she lost her memory, and she could not even remember the time. After thesespells, she experienced headaches of 5-6/10 in severity. She denies any tongue biting or any urinary or bowel incontinence. As per Emma, her friend observed one episode when she had some jerky movements in her arms and legs. The frequency of such spells is approximately once in two months. Recently Emma started to experience a lot of prodromal episodes such as ringing in her ears, loss of vision, and nausea. Some of such episodes are accompanied by a headache, anxiety, and shortness of breath. Also, recently she had one episode when she could not see at all. She was evaluated by ophthalmology and found that she has visual field abnormality. She was seen by ophthalmology outside of [facility], and we do not have any records in the chart. She was sent for an MRI of the brain, which was done on November 03, 2006 and revealed thickening and enhancement of pituitary infundibulum. She will follow up with an MRI in 3-6 months to follow up the size of this lesion. The next problem she complains of is migraine type of headaches, which she experienced once or twice a week. The headaches are mostly bilateral, 4-7/10 in severity, during which she became light sensitive and noise sensitive. The headaches are aggravated by bending forwards and bright lights. They are not relieved by Tylenol or aspirin. She was started on sertraline 50 mg daily two months ago for additional adjunctive treatment with bupropion for her depression. She is not seeing a psychiatrist on a routine basis, and all medications are prescribed by her PCP. Risk factors: She denies any history of febrile seizures, CHEMICAL MAKER infection, or trauma. No drug use or alcohol use. She graduated from high school. Her grandmother told her that she has some relatives who had epilepsy, but this information is unreliable. Additional past medical history: The patient has migraine type of headaches, which started in 2003 after the first delivery. Additional family history: Her mother and sister, who is 29 years old, are experiencing migraine headaches. MEDICATIONS 1. Bupropion 150 mg daily. 2. Sertraline 50 mg daily. 3. Loestrin oral contraceptives. 4. Aleve p.r.n. 5. APAP p.r.n. ALLERGIES PAXIL. SHE HAS A HISTORY OF FACIAL SWELLING. REVIEW OF SYSTEMS Emma states that she has a lot of ringing in her ears and problems with her vision. She is not able to see her peripheral vision and everything is blurry according to her. Sometimes she has nausea. She denies any fever, night sweats, chest pain, cough, shortness of breath, abdominal pain, or diarrhea. Otherwise the 10-point review of systems is unremarkable. PHYSICAL EXAMINATION Emma is a 26-year-old right-handed woman, slightly overweight, with a blood pressure of 110/64, pulse is 100, and respirations are 20. Weight is 236 pounds. She is not in acute distress. HEENT: Cranial exam did not reveal any abnormalities. The neck is supple. Lhermitte's sign is negative. Oral mucosa is moist. Lungs are clear to auscultation bilaterally. Heart is S1 and S2 with no murmurs. Abdomen is soft, nontender, and nondistended. Extremities: No edema. Peripheral pulses are present bilaterally. Neurological exam: She is alert and oriented x3. Sometimes she is showing slowness in answers, but answers appropriately. Recall is 3/3 in five minutes. Speech is fluent. Repetition and naming is intact. Pupils are 3 mm in diameter, round and reactive to the light. Extraocular movements are full. No nystagmus. Confrontation visual interiano demonstrated a tunnel type field about 18 in diameter close to herface and again about 18 in diameter when about 5' away. Face is symmetrical. Trigeminal nerve evaluation is normal bilaterally. Hearing is grossly intact to finger rub. Normal shoulder shrug.Motor exam: Full strength in all four extremities. No pronator drift. Deep tendon reflexes are 1+ th roughout. Downgoing toes bilaterally. Sensory exam is grossly intact to all modalities. Rapid alternating movements are well performed. Unpuol-md-oozs and njpq-[id number] test are well done. Romberg is negative. Her gait is normal, and she is able to perform absolutely normal tandem gait. We performed a hyperventilation test for three minutes, during which the patient experienced blurred vision and visual speckles. She felt dizzy, nauseated, and has parasthesias. After she was told to stop hyperventilating she continued to hyperventilate for another 2-3 minutes, and described thatshe feels anxious and panic. She related that the episode closely resembled her attacks. She did not lose awareness during HV. MRI was reviewed today and showed thickening of pituitary infundibulum but no other changes. IMPRESSION Emma's spells do not sound epileptic. An event similar to her spells was triggered today by hyperventilation. We suspect that her spells are anxiety/panic attacks accompanied by hyperventilationand followed by a vascular headache. Her tunnel vision as found today is NOT of organic etiology is is a functional abnormality in keeping with the events as described above. PLAN 1. We would like to obtain EKG, echocardiogram, electroencephalogram, and Holter monitor for 24 hour and expect to see normal results. 2. We asked the patient to bring her ophthalmology report for the next appointment. 3. The patient is on bupropion and sertralinetogether, and we would recommend to discontinue both of these medications and start amitriptyline, which should help aleviate her depression, reduce the frequency/severity of the panic episodes, and is a good migraine prophylactic medication. Would suggest beginning with 10 mg hs and slowly increasing the dose to 75 to 100 mg hs. 4. She will follow up with an MRI in 3-6 months. She will see Dr. Medina in three months. Edited and Signed by Jc Medina III, MD 11/13/2006 14:29 Reviewed by [facility]ong [facility] MD 11/13/2006 13:42 Chu Umana MDHarold H [place], III, MD Dictated by: [facility] MD Jc Medina III, MD - [facility] MD - [facility] Job ID: [id number] Doc ID: [id number] cc: MD Leeanna Lockett MD documented in this encounter Plan of Treatment Not on file documented as of this encounter Visit Diagnoses Not on filedocumented in this encounter
--- OUTSIDE RECORDS SUMMARY | 2024-01-03 01:10 | XMS_ITS | Encounter Summary ---
Author Organization [facility] Address [address] [place] [address] Care Team Providers Care Hvac Tech Name Role Phone Terry Hall MD Primary Care Provider [phone] Terry Hall MD Unavailable Reason for Visit * Reason Comments Diabetes * Consult (Routine) - Closed Specialty Diagnoses / Procedures Referred By Contac t Referred To Contact Endocrinology Diagnoses Type II or unspecified type diabetes mellitus without mention of complication, uncontrolled Greta Galicia NP [address] [facility] [address] [place] [phone] [facility] [address] [place] [id number] Referral ID Status Reason Start Date Expiration Date V isits Requested Visits Authorized [id number] Closed Specialty Services Required 09/23/2014 1 1 Encounter Details Date Type Department Care Team (Late st Contact Info) Description 12/01/2014 14:00 EDT Nutrition [facility] Endocrinology - [address] [address] Rosita [place] Type II or unspecified type diabetes mellitus without mention of complication, uncontrolled (Primary Dx) Social History Tobacco Use Types [...] Sign Reading Time Taken Comments Blood Pressure 105/57 12/01/2014 1334 EDT Pulse 68 12/01/2014 1334 EDT Temperature - - Respiratory Rate - - Oxygen Saturation - - Inhaled Oxygen Concentration - - Weight 91.6 kg (202 lb) 12/01/2014 1334 EDT Height 162.6 cm (5' 4.02) 12/01/2014 1334 EDT Body Mass Index 34.66 12/01/2014 1334 EDT documented in this encounter Functional Status [...] No 12/01/2014 documented as of this encounter Discharge Diagnoses Diagnosis 250.02 DIABETES UNCOMPL ADULT-UNCONTRLLED[ICD-9-CM] documented in this encounter Patient Instructions * Patient Instructions* Rosita [place] - 12/01/2014 14:39 EDT Lantus 50 units am Novolog breakfast 10 units + source of protein Lunch 8 units Dinner 10 units Add a bedtime reading. documented in this encounter Progress Notes * Rosita [place] - 12/01/[address] [facility] DIABETES DIABETES NUTRITION VISIT NOTE Name:Emma Faith Date of visit: 12/01/2014 PATIENT ID: Emma Faith is a 34 y.o. female referred for medical nutrition therapy by JOANN Wick for Diabetes - Type 2. SUBJECTIVE: Emma Faith was seen for a medical nutrition therapy visit, initial, at the [facility] End[facility]ology [facility] Diabetes out-patient clinic on 12/01/2014 accompanied by: alone Recently moved back to [place]; works at [employer] in [facility]; 2 children 11 yo and 9yo. Blood sugar control has worsened over the past few months with a lot of stressors in her life (moving, divorce). Diagnosed about 10 years ago. Insulin x 2-3 years. Very inconsistent with regimen. OBJECTIVE: Diabetes type: Type 2 Vitals: BP 105/57 mmHg Pulse 68 Ht 162.6 cm (64.02) Wt 91.627 kg (202 lb) BMI 34.66 kg/m2 BMI: Body mass index is 34.66 kg/(m^2). Diabetes Medications: Current AntiDiabetic Medications 09/23/2014 insulin lispro (subcutaneous) 26 Units TID AC (100 unit/mL soln)-Discontinued insulin glargine (subcutaneous) 45 Units QHS + 50 Units QHS (100 unit/mL soln)-Discontinued insulin aspart (subcutaneous) 8 Units TID WC metFORMIN (oral) 500 MG DAILY + 1,000 MG BID (1,000 mg tab)-Discontinued Laboratory Results: Lab Results Component Value Date HGBA1C 10.0* 09/23/2014 Lab Results Component Value Date CHOL 258 01/16/2006 HDL 44 01/16/2006 LDLBASE 184 01/16/2006 TRIG 148 01/16/2006 CHOLHDL 5.9 01/16/2006 PRESENT MEAL PATTERN: Current eating habits:eats 3 meals plus snacks. Breakfast: fruit, yogurt, juice, coffee Lunch: sandwich or leftovers, crackers, vegetables (salad or cut-up), yogurt Dinner: pasta with sauce and bread; chicken, steak, pork/vegetables/ rice or potatoes Snacks: chips, crackers, yogurt, pretzels, fruit or vegetables Beverages: regular soda, sweetened iced tea PHYSICAL ACTIVITY: Comments: Active work and lifestyle with two young children BLOOD GLUCOSE MONITORING: Barriers to monitoring: None Hypoglycemic episode: none; but feels symptoms around 130s Carbohydrate source on person? Yes glucose tabs or hard candy Home Blood Glucoses Running: fastin, 122, 158; p brk: 234, 232; ac lunch: 138, 181, 146; pc lunch: 187; ac dinner: 155; pc dinner: 275, 91, 76. Infrequent testing; most recent bg have been consistently higher most in upper 100s-200s ASSESSMENT: Emma is a 34 yo female with type 2 diabetes in poor glycemic control; A1c 10%. Has not been following a meal plan and has been missing 3/7 weekly Lantus injections and about 4 missed meal time injections over the week. Her dietary intake includes a tremendous amount of refined carbohydrate from soda and juice. Basic meal pattern and food choices are reasonable but portions exceed recommended 45g-50g/meal. She was not ready to follow a meal pattern a couple of years ago but thinks she is now and this should get her started on the meal planning path. Quite simply, if she cut out juice and soda and took all injections as prescribed, she would see a huge improvement. Suggest we follow up in 2 months to continue on to using I:C at meals. Learning readiness: Verbalizes interest and Active attentive participant Psychosocial, cultural, or economic barriers to care:none. Emma Faith verbalized understanding of meal planning guidelines reviewed at this visit. NUTRITION PLAN: Patient education on Carbohydrate Based Diabetes Meal Planning Type of meal planning: Consistent Carbohydrate Carbohydrate meal plan target: 45 gm/meal and 15-20g/afternoon snack Add source of protein at breakfast Food logs to reinforce meal plan and encourage portion control Encouraged regular physical activity for weight management and blood glucose control. Lantus increase to 50 units Novolog: brk 10 units; lunch 8 units; dinner 10 units. SMBG QID The following patient education materials were provided at today's visit. Choose Your Foods: Exchange Lists for Diabetes- ADA Follow-up 2 months with CDE Thank you for your kind referral of Emma Faith for nutrition counseling. Time Spent With Patient: 1 hour DM W/O COMPLICATIONS TYPE II 250.[address] 12/01/2014 14:47 documented in this encounter Plan of Treatment Not on file documented as of this encounter Visit Diagnoses Diagnosis Type II or unspecified type diabetes mellitus without mention of complication, uncontrolled- Primary documented in this encounter Care Teams Hvac Tech Relationship Specialty Start Date End Date Terry Hall MD PCP - General 07/02/14 10/16/15 Terry Hall MD [address] [place] [id number] 07/02/14 documented as of this encounter
--- OUTSIDE RECORDS SUMMARY | 2024-01-03 01:10 | XMS_ITS | Encounter Summary ---
Author Organization [facility] Address [address] [place] [address] Care Team Providers Care Data Sme Name Role Phone Unavailable Primary Care Provider Unavailabl e Encounter Details Date Type Department Care Team (Latest Contact Info) Description 11/12/2006 9:37 EDT - 11/12/2006 11:59 EDT Hospital Encounter [address] [address] Jc Medina MD [facility] [address] [phone] Discharge Disposition: Auto Discharge Social History Tobacco Use Types Packs/Day Years Used Date Smoking Tobacco: Never Assessed Sex and Gender Information Value Date Recorded Sex Assigned at Female 01/29/2022 18:29 EDT Gender Identity Female 05/30/2019 9:03 EST Sexual Orientation Choose not to disclose 2023 15:46 EST documented as of this encounter Discharge Disposition Disposition Code Departure Means Destination Auto Discharge documented in this encounter Plan of Treatment Not on file documented as of this encounter Visit Diagnoses Not on filedocumented in this encounter
--- OUTSIDE RECORDS SUMMARY | 2024-01-03 01:10 | XMS_ITS | Encounter Summary ---
Author Organization [facility] Address [address] [place] [address] Care Team Providers Care Control Room Technician Name Role Phone Unavailable Primary Care Provider Unavailabl e Encounter Details Date Type Department Care Team (Late st Contact Info) Description 06/11/2005 20:03 EST Hospital Encounter [facility] [address] [place] [address] Donald Choi MD [address] [facility], [facility] [address] [place] [address] Discharge Disposition: Home or Self [...]
--- OUTSIDE RECORDS SUMMARY | 2024-01-03 01:10 | XMS_ITS | Encounter Summary ---
Author Organization [facility] Address [address] [place] [address] Care Team Providers Care Laborer Golf Course Name Role Phone Unavailable Primary Care Provider Unavailabl e Encounter Details Date Type Department Care Team (Late st Contact Info) Description 11/28/2004 Before PRISM Converted Visit (Map[facility]) [facility] - [facility] conversion [address] [place] [address] Jc Medina MD [address] [place] [phone] Social History Tobacco Use Types Packs/Day Years Used Date Smoking Tobacco: Never Assessed Sex and Gender Information Value Date Recorded Sex Assigned at Female 01/29/2022 18:29 EDT Gender Identity Female 05/30/2019 9:03 EST Sexual Orientation Choose not to disclose 2023 15:46 EST documented as of this encounter Consult Notes * Jc Medina III, MD - 06/23/2009 1804 EST DIVISION OF NEUROLOGY CONSULTATION - REASON FOR VISIT: Emma Min is a 24-year-old woman seen in consultation at the request of Dr. Chelsie Veronica of [place], [place]. She comes because of recurrent syncopal attacks, possible seizures. HISTORY OF PRESENT ILLNESS: History is provided by the patient. There are some faxed records from [facility] care affiliates, and the medical record of Angelito Cheema is also available. The medical record indicates that when she was 17 and seen in pediatrics, she was complaining of presyncopal events at [facility]. Since that time she has continued to have both presyncopal as well as syncopal events. Characteristically, the events are again with a feeling of ringing in her ears. This can really getquite intense, and she has learned to associate this with the probability of losing awareness. Following the ringing in her ears, she may get graying or actually blacking out of vision while retaining consciousness. She has found that if she sits down she can usually avoid loss of consciousness, alt mc at least on one occasion, it occurred despite sitting. She has completely aborted them when she has become supine. She estimates over the years that she has had many of these events. The most recent occurred earlier this year. Her friends, her mother, and her dad have seen these. Her has not seen one. With one event, actually with two events occurring in short succession of each other, she had some jerking of her arms and legs. She did not bite her tongue and was not incontinent, and has had neither incontinence or tongue biting with any of the others. There is no history of seizures as a child. PAST MEDICAL HISTORY: The patient had a cholecystectomy approximately one year ago. She is currently , approximately three months. This is her second . She relates that she runs low blood pressure. CURRENT MEDICATIONS: Lexapro 10 mg, one daily; vitamins, one daily; calcium supplements daily. ALLERGIES: SHE STATES THAT SHE HAD FACIAL SWELLING WITH PAXIL. She is not allergic to latex. FAMILY HISTORY: Breast cancer occurred in a great grandmother. Her mom and dad are both well, as galdino sister. No family history of syncope or seizures, possible migraine in mother and sister. SOCIAL HISTORY: She is a high school graduate. She quit smoking in the past. She is not consuming alcohol. 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 She is . REVIEW OF SYSTEMS: The patient states both her hearing and vision are normal. Memory is normal. Strength is normal in the arms and the legs. There are no sensory symptoms. She gets short of breath with exercise. She denies cough or chest pain. She denies nausea, vomiting, diarrhea. She denies dysuria, hematuria. She denies rashes. EXAMINATION: Blood pressure 110/58, pulse 60, respirations 15, weight 211 with shoes. She denies being in pain. Speech and affect are unremarkable. Eye movements are full. There is no nystagmus. Visual interiano are full to confrontation. Facial grimace is symmetrical. Other cranial nerves function normally. Strength and tone are normal in all extremities. Muscle stretch reflexes are normal and symmetrical in the upper and lower extremities. No abnormalities of pinprick, touch, vibratory or temperature sensations are present. The patient's gait is unremarkable, rapid alternating movements and [id number] well done. When seated for a prolonged period of time blood pressure was 98/68. On standing for three minutes,blood pressure was 96/76, pulse 104. IMPRESSION: I do not believe these are seizures but syncopal events, one of which she had convulsive light activity ie convulsive syncope. I think this was because she was still in a seated position despite being unconscious. PLAN: Will obtain EEG, EKG, echocardiogram of the heart. Following she should have a tilttable examination. I will see the patient after her EEG, echo, and EKG. Signed by Jc Medina III, MD 11/29/2004 17:42 Manuela Medina III, MDHarold H [place], III, MD Jc Medina III, MD - Jc Medina III, MD P - AN Job ID: [id number] Document ID: [id number] cc: MD Ashely West NP documented in this encounter Plan of Treatment Not on file documented as of this encounter Visit Diagnoses Not on filedocumented in this encounter
--- OUTSIDE RECORDS SUMMARY | 2024-01-03 01:10 | XMS_ITS | Encounter Summary ---
Author Organization [facility] Address [address] [place] [address] Care Team Providers Care Integration Developer Name Role Phone Terry Hall MD Unavailable Yehuda Stallworth DO Primary Care Provider Reason for Referral * Consult (Routine/Next Available) - Closed Specialty Diagnoses / Procedures Referred By Contac t Referred To Contact Dermatology Diagnoses Type 2 diabetes mellitus without complication, with long-term current use of insulin ([facility]) Dermatitis Greta Galicia NP [address] [phone] [facility] Dermatology [address] [place] [address] Referral ID Status Reason Start Date Expiration Date V isits Requested Visits Authorized [id number] Closed Specialty Services Required 05/15/2016 1 1 Question Answer Reason for Request: T2 Diabetes right heal cracking dry. Using lotrimin, Eucerin, improves slightly but never resolves * Consult (Routine/Next Available) - Closed Specialty Diagnoses / Procedures Referred By Contac t Referred To Contact Ophthalmology Diagnoses Type 2 diabetes mellitus without complication, with long-term current use of insulin ([facility]) Greta Galicia NP [address] [facility] [address] [place] [address] [facility] Ophthalmology [address] [place] [address] Referral ID Status Reason Start Date Expiration Date V isits Requested Visits Authorized [id number] Closed Specialty Services Required 05/15/2016 1 1 Question Answer Reason for Request: Other, in comments field Specify which eye: Both Onset/Duration (new problem)? routine DM eye exam Contact lens wearer? No Reason for Visit * Reason Comments Diabetes Encounter Details Date Type Department Care Team (Latest Contact Info) Description 05/15/2016 15:40 EST Office Visit [facility]ology - [facility] [address] [place] [address] Greta Galicia, MIGUEL [address] [facility] [address] [place] [address] Type 2 diabetes mellitus without complication, with long-term current use of insulin ([facility]) (Primary Dx); Dermatitis Social History Tobacco Use Types Packs/Day Years [...] Sign Reading Time Taken Comments Blood Pressure 128/68 05/15/2016 1454 EST Pulse 94 05/15/2016 1454 EST Temperature - - Respiratory Rate - - Oxygen Saturation - - Inhaled Oxygen Concentration - - Weight 90.3 kg (199 lb) 05/15/2016 1454 EST Height 162 cm (5' 3.78) 05/15/2016 1454 EST Body Mass Index 34.39 05/15/2016 1454 EST documented in this encounter Functional Status Functional Status Response Date of Assess ment Because of a physical, menta l, or emotional condition, does this person have difficulty doing errands alone such as visiting a doctor's office or shopping? No 05/15/2016 Cognitive Status Response Date of Assessm ent Because of a physical, menta l, or emotional condition, does this person have serious difficulty concentrating, remembering, or making decisions? No 05/15/2016 documented as of this encounter Patient Instructions * Patient Instructions* Greta Galicia NP - 05/15/2016 15:40 EST Your Hemoglobin A1C is: 7.4 With average blood sugar of: 163 It is better from last visit Your Goal at this time: Keep up good work, can adjust insulin doses according to meal and FS before Blood sugar goals are: 80-130 in AM, 90-160 prior to other meals. Your personal Blood sugar goals: 90-200 Check Blood Sugar: Other: Twice daily. Recommend Diabetes Medic Alert Tag Especially if you take insulin Carry a source of glucose with you at all times, especially if you are on Insulin or oral medications Keep a diary of Blood sugars and Always Bring your Glucometer to clinic Medications for Diabetes: 70/30 26 units with breakfast and dinner Always eat after taking this insulin or you will have a low sugar If you plan to have a small meal, FS under 100, or exercising decrease to 12-14 units for that meal Blood Pressure Goal is <130/80, Yours is: Visit Vitals ??? BP 128/68 ??? Pulse 94 ??? Ht 162 cm (63.78) ??? Wt 90.3 kg (199 lb) ??? BMI 34.39 kg/m2 Cholesterol goal for LDL (bad cholesterol) is For those with Diabetes <100, for those with Diabetes and Heart Disease, 70 or less. Yours is: Lab Results Component Value Date CHOL 234 08/10/2015 HDL 49 08/10/2015 LDLBASE 143 08/10/2015 TRIG 209 08/10/2015 CHOLHDL 4.8 08/10/2015 If you are able to, recommend taking an aspirin a day Diet: Please work on a diet balanced in Calories, Protein, and carbohydrates Label Cutter needed: Keep working at it, no consult at this time Exercise: Please try to exercise for at least 30 minutes, at least 3 times a week if you are able to tolerate exercise. Eye Appointment: Yearly, refered Recommend Dentist visit twice yearly Foot Care: Cracked heel referred to Dermatology Protect your feet by wearing supportive shoes that do not rub or chafe your feet. Never go bare foot. Wash, inspect, and apply non-perfumed skin cream to feet each night before bed. Fasting Labs Due: July See you back: Please follow this Diabetes Treatment Plan and call the Diabetes Center at [phone] for questions or concerns about your blood sugars documented in this encounter Progress Notes * Khadijah Altamirano - 05/15/2016 1540 EST Fingerstick blood sample obtained for POCT Hemoglobin A1C performed for this DOS at the order of Greta Galicia NP * Greta Galicia NP - 05/15/2016 1540 EST Subjective: Patient ID: Emma Min is an 36 y.o. female. Chief Complaint Patient presents with ??? Diabetes HPI This is a 36 y.o. yr old female arrives today as a New Patient visit for treatment of Type 2 Diabetes. Diabetes diagnosed 2004. Initially from [place] moved back to [facility] last year from [facility]. Due to marital problems, now . Raising 2 daughters. Pt working at [employer] at [employer]. Now has boyfriend. Switched to split mix insulin, more consistent taking her insulin is having episodic lows. Had one episodic where she was acting weird, out of it at boyfriend's did not take FS but treated low withfood, resolved. Pertinent Past Medical History: Insomnia feels it is due to stressors in her life. Diabetes Complications and Symptoms: Recent eye spencer't denies retinopathy last eye appointment. Nocturia x1. Notes polydipsia/uria with high blood sugars. Occ numbness in feet. General health and social issues since last visit: Stable Contributory visits to PCP and or other subspecialties: Has established a PCP in [place] Changes in other pertinent medications: No. 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 She has 2 pre-teenage daughters. Not currently sexually active. Denies gestational diabetes. MGF had DM. Pertinent Family History: Maternal grandfather had diabetes. Current diabetes medications include: 70/30 takes 26 un twice daily. States starts feeling shaky if FS at 110 Finger stick monitoring: Keeps a diary: No. Brought Glucometer: Yes can not down load reviewed recall. Takes finger sticks: few times a week. Trends: 80-329 Highs include: Rare 329 Lows include: Lowest recorded 80 Life style alterations include: Eating habits: Not following diabetic diet, trying to improve Patient's weight: Wt Readings from Last 3 Encounters: 05/15/16 90.3 kg (199 lb) 01/11/16 88.5 kg (195 lb) 10/17/15 77.1 kg (170 lb) Patient exercise level is: Walks a lot at work, no other exercise Habits: Smoking: No, Alcohol: Seldom, Illicit Drugs: No. Self management: Self Care Efforts: Poor Barriers to adherence: Busy lifestyle Medic Alert: No Quick source of Glucose: No Rotates Injection Sites: No Last Eye appointment: ~ 1 year ago Dental: No Podiatry or Orthopaedics: No Lab Results Component Value Date HGBA1C 7.4 (H) 05/15/2016 Lab Results Component [...] file. No family history on file. Social Social History Social History ??? Marital status: Spouse name: N/A ??? Number of children: N/A ??? Years of education: N/A Occupational History ??? Not on file. Social History Main Topics ??? Smoking status: Former Smoker ??? Smokeless tobacco: Not on file ??? Alcohol use Not on file ??? Drug use: Not on file ??? Sexual activity: Not on file Other Topics Concern ??? Not on file Social History Narrative Current Outpatient Prescriptions on File Prior to Visit Medication Sig Dispense Refill ??? colesevelam (WELCHOL) 625 mg tablet Take 1 Tab by mouth 2 times daily with breakfast and dinner. 180 Tab 3 ??? insulin aspart protamine-insulin aspart (NOVOLOG FLEXPEN 70/30) 100 unit/mL (70-30) injectable pen Inject 26 Units into the skin BEFORE BREAKFAST & DINNER. 1 [address] No current facility-administered medications on file prior to visit. Allergies Allergen Reactions ??? Seroquel [Quetiapine] Anaphylaxis All anti depressant medications ??? Lactose Diarrhea ??? Latex, Natural Rubber Swelling and Rash labs done at [facility] 07/2014 creatinine 0.71, GFR greater than 60, potassium 4.2,total cholesterol 214, HDL 42, LDL 149, triglycerides 111, ratio 5.09, all other electrolytes as well as liver function tests within normal limits. ROS - See HPI Objective: Visit Vitals ??? BP 128/68 ??? Pulse 94 ??? Ht 162 cm (63.78) ??? Wt 90.3 kg (199 lb) ??? BMI 34.39 kg/m2 Physical Exam A1C today: 7.4 compared to 8.1 Weight and changes: See above. Blood Pressure is: At goal. Lipids: See above. General Impression and Affect: Obese young woman, with flattened affect arrives alone. Eyes: EOMs intact Neck: No nodes or thyromegaly Feet and Extremities including Neuro: Shoes: Has on supportive shoes General Impression: At some risk for breakdown on right heal Skin and Nails: Right heal, irritated area with sloughing outer layer of skin, with vesicles and mild excoriation Swelling: No Deformities: No Pulses: Palpable Sensation Monofilament intact in all areas, Vibratory sense intact at great toes, DTRs 2+. Discussion and Recommendation: Likes 70/30 but has concerns about lows. Can get episodic Hypoglycemia when busy at work. Once had significant symptoms of low (no FS documented), took full dose insulin and didn't eat while with boyfriend. Was able to treat self. Reviewed necessity of eating after taking this insulin. Also can lower by half during circumstances such as increased exercise, busy at work, low appetite, or FS <100 before taking insulin. Plaque on right heal improved, canceled spencer't with derm, now has returned. Places lotrimin and eucerin cream on, still does not go away. I spent a total of 25 minutes in face to face time with this patient today and 20 minutes of that time was spent counseling the patient on the risks and treatment options for diabetes. Assessment: 36 y.o. Woman with 11 yr H/O T2 Diabetes, insulin requiring. A1C has improved since last spencer't, changed insulin to twice daily split mix. Likes this insulin, having episodic Hypoglycemia when busy atwork once had significant symptoms of low (no FS documented) Took insulin and didn't eat. Sometimesholds 70/30. Pt must eat directlty after taking 70/30. If active, low appetite or FS <100 before insulin decrease by half instead of holding. Will be due for screening labs at next spencer't. Can not tolerate statins, on welchol. Has not had eye spencer't in some time. Refer to Ophthalmology. Dermatitisin heal, referred to Derm. Plan: Your Hemoglobin A1C is: 7.4 With average blood sugar of: 163 It is better from last visit Your Goal at this time: Keep up good work, can adjust insulin doses according to meal and FS before Blood sugar goals are: 80-130 in AM, 90-160 prior to other meals. Your personal Blood sugar goals: 90-200 Check Blood Sugar: Other: Twice daily. Recommend Diabetes Medic Alert Tag Especially if you take insulin Carry a source of glucose with you at all times, especially if you are on Insulin or oral medications Keep a diary of Blood sugars and Always Bring your Glucometer to clinic Medications for Diabetes: 70/30 26 units with breakfast and dinner Always eat after taking this insulin or you will have a low sugar If you plan to have a small meal, FS under 100, or exercising decrease to 12-14 units for that meal Blood Pressure Goal is <130/80, Yours is: Visit Vitals ??? BP 128/68 ??? Pulse 94 ??? Ht 162 cm (63.78) ??? Wt 90.3 kg (199 lb) ??? BMI 34.39 kg/m2 Cholesterol goal for LDL (bad cholesterol) is For those with Diabetes <100, for those with Diabetes and Heart Disease, 70 or less. Yours is: Lab Results Component Value Date CHOL 234 08/10/2015 HDL 49 08/10/2015 LDLBASE 143 08/10/2015 TRIG 209 08/10/2015 CHOLHDL 4.8 08/10/2015 If you are able to, recommend taking an aspirin a day Diet: Please work on a diet balanced in Calories, Protein, and carbohydrates Label Cutter needed: Keep working at it, no consult at this time Exercise: Please try to exercise for at least 30 minutes, at least 3 times a week if you are able to tolerate exercise. Eye Appointment: Yearly, refered Recommend Dentist visit twice yearly Foot Care: Cracked heel referred to Dermatology Protect your feet by wearing supportive shoes that do not rub or chafe your feet. Never go bare foot. Wash, inspect, and apply non-perfumed skin cream to feet each night before bed. Fasting Labs Due: July See you back: Please follow this Diabetes Treatment Plan and call the Diabetes Center at [phone] for questions or concerns about your blood sugars Emma was seen today for diabetes. Diagnoses and all orders for this visit: Type 2 diabetes mellitus without complication, with long-term current use of insulin - Amb Consult/Follow Up Ophthalmology - Amb Consult/Follow Up Dermatology Dermatitis - Amb Consult/Follow Up Dermatology Other orders - POCT Hemoglobin A1C - POCT Hemoglobin A1C; Future documented in this encounter Plan of Treatment Scheduled Referrals Name Type Priority Associated Diagnoses Order Schedule AMB CONS/FOLLOW UP OPHTHALMOLOGY Outpatient Referral Routine Type 2 Diabetes Mellitus Without Complication, With Long-Term Current Use Of Insulin ([facility]) Ordered: 05/15/2016 AMB CONS/FOLLOW UP DERMATOLOGY Outpatient Referral Routine Type 2 Diabetes Mellitus Without Complication, With Long-Term Current Use Of Insulin ([facility]) Dermatitis Ordered: 05/15/2016 documented as of this encounter Procedures Procedure Name Priority Date/Time Associated Diagnosis Comments POCT HEMOGLOBIN A1C, INTERFACED Routine 05/15/2016 14:46 EST documented in this encounter Results * (ABNORMAL) POCT HEMOGLOBIN A1C (09/12/2016 16:57 EDT) Hemoglobin A1C, POC Interfaced 8.3(H) <5.7 % 09/12/2016 17:08 EDT [facility] surgical corsetier ID [id number] 09/12/2016 17:08 EDT [facility] Comment:Test performed at En docrinology Blood specimen (specimen) BLOOD SPECIMEN / Unknown 09/12/2016 16:57 EDT 09/12/2016 17:08 EDT Greta Galicia BACK PANEL PADDER POINT OF CARE TEST ORDERABLES [facility] [address] [place] [address] * (ABNORMAL) POCT HEMOGLOBIN A1C (05/15/2016 14:46 EST) Hemoglobin A1C, POC Interfaced 7.4(H) <5.7 % 05/15/2016 15:11 EST [facility] surgical corsetier ID [id number] 05/15/2016 15:11 EST [facility] Comment:Test performed at En docrinology Blood specimen (specimen) BLOOD SPECIMEN / Unknown 05/15/2016 14:46 EST 05/15/2016 15:11 EST Greta Galicia BACK PANEL PADDER POINT OF CARE TEST ORDERABLES [facility] [address] [place] [address] documented in this encounter Visit Diagnoses Diagnosis Type 2 diabetes mellitus without complication, with long-term current use of insulin ([facility] Primary Dermatitis Contact dermatitis and other eczema, due to unspecified cause documented in this encounter Care Teams Integration Developer Relationship Specialty Start Date End Date Yehuda Stallworth DO [address] [place] [phone] PCP - General 05/15/16 10/15/21 Terry Hall MD [address] [place] [id number] 07/02/14 documented as of this encounter
--- OUTSIDE RECORDS SUMMARY | 2024-01-03 01:10 | XMS_ITS | Encounter Summary ---
Author Organization [facility] Address [address] [place] [address] Care Team Providers Care Consulting Nurse Name Role Phone Unavailable Primary Care Provider Unavailabl e Encounter Details Date Type Department Care Team (Latest Contact Info) Description 11/15/2006 11:25 EDT - 11/15/2006 11:59 EDT Hospital Encounter [facility] [address] [place] [address] Jc Medina MD [address] [phone] Discharge Disposition: Auto Discharge Social [...]
--- OUTSIDE RECORDS SUMMARY | 2024-01-03 01:10 | XMS_ITS | Encounter Summary ---
Author Organization [facility] Address [address] [place] [address] Care Team Providers Care Kennel Hand Name Role Phone Unavailable Primary Care Provider Unavailabl e Encounter Details Date Type Department Care Team (Late st Contact Info) Description 06/21/2005 20:01 EST Hospital Encounter [facility] [address] [place], [place] [id number] Mago Ravi MD [address] [facility], [facility] [address] [place] [address] Discharge Disposition: Home or Self [...] Associated Diagnosis Comments COMPLETE BLOOD COUNT Routine 06/21/2005 21:35 EST URINALYSIS WITH MICROSCOPIC IF POSITIVE Routine 06/21/2005 21:14 EST UA REFLEX Routine 06/21/2005 21:14 EST URINE CULTURE IF POSITIVE Routine 06/21/2005 21:14 EST documented in this encounter Results * (ABNORMAL) HEMAGRAM (06/21/2005 21:35 EST) WBC 8.28 4.0 - 12.4 K/cmm [facility] RBC 3.57(L) 3.86 - 5.04 M/cmm [facility] Hemoglobin 12.2 11.6 - 15.2 gm/dl [facility] HCT 35.4 34.9 - 44.4 % [facility] MCV 99(H) 81 - 98 fl [facility] MCH 34.1(H) 26.7 - 33.3 pg [facility] MCHC 34.4 32.1 - 35.9 gm/dl [facility] PLT 225 141 - 320 K/cmm [facility] RDW-CV 13.5 11.7 - 14.6 % [facility] 06/21/2005 21:3 5 EST 06/21/2005 22:08 EST Mago Ravi MD HEMATOLOGY & PF4 ORD ERABLES Performing Organization Address [facility] Co de Phone Number [facility] [address] [place] [address] * UA REFLEX (06/21/2005 21:14 EST) Pathologist [facility] UA Billing Microscopic not indicated. [facility] 06/21/2005 21:1 4 EST 06/21/2005 21:29 EST Mago Ravi MD URINALYSIS ORDERABLE S Performing Organization Address City/[facility]/ZIP Co de Phone Number [facility] [address] [place] [address] * (ABNORMAL) URINALYSIS (06/21/2005 21:14 EST) Pathologist [facility] Color, UA Yellow [facility] Clarity, UA Clear [facility] Glucose, UA Norm NORM [facility] Bilirubin, UA Neg NEG [facility] Ketones, UA Trace(A) NEG [facility] Specific [place], Urine >1.030(H) 1.005 - 1.02 [facility] Blood, UA Neg NEG [facility] pH, UA 6.0 5.0 - 9.0 [facility] Protein, UA 1+(A) NEG [facility] Urobilinogen, UA 1.0(A) NORM mg/dL [facility] Nitrite, UA Neg NEG [facility] Leuk Esterase Neg NEG [facility] Refractometer SG,Urine 1.034(H) 1.005 - 1.02 [facility] Comment:Refractometer specif ic gravity 06/21/2005 21:1 4 EST 06/21/2005 21:29 EST Mago Ravi MD URINALYSIS ORDERABLE S Performing Organization Address [facility] Co de Phone Number [facility] [address] [place] [address] * CULTURE IF UA POSITIVE (06/21/2005 21:14 EST) Culture if Indicated Culture not indicated by urinalysis results. [facility] 06/21/2005 21:1 4 EST 06/21/2005 21:29 EST Mago Ravi MD MICROBIOLOGY - GENER AL ORDERABLES Performing Organization Address [facility] Co de Phone Number [facility] [address] [place] [address] documented in this encounter Visit Diagnoses Not on filedocumented in this encounter
--- OUTSIDE RECORDS SUMMARY | 2024-01-03 01:10 | XMS_ITS | Encounter Summary ---
Author Organization [facility] Address [address] [place] [address] Care Team Providers Care Frequency Checker Name Role Phone Unavailable Primary Care Provider Unavailabl e Encounter Details Date Type Department Care Team (Latest Contact Info) Description 07/05/2006 22:47 EDT Hospital Encounter [facility] - Other [address] [place] [address] Leeanna Cohn MD [address], [place] [address] Discharge Disposition: Home or Self Care Social [...] Procedure Name Priority Date/Time Associated Diagnosis Comments MR HEAD AND ORBIT W/WO CONTRAST 11/03/2006 17:20 EDT TSH Routine 07/05/2006 16:00 EDT documented in this encounter Results * MR BRAIN AND ORBIT W/WO CONTRAST (11/03/2006 17:20 EDT) Anatomical Region Laterality Modality Other 11/03/2006 17:2 0 EDT Narrative 10/20/2008 11:35 EDT transient visual loss both eyes,passing out,abnormal visual field,headache MRI of the Brain, Pituitary and Orbits on 11/03/2006 at 2:26 p.m. History: Transient visual loss both eyes. Passing out. Abnormal visual field. Headache. Rule out brain, pituitary pathology. Technique: Sagittal T1 FLAIR, axial T2 GRASE, and T2 FLAIR, DWI, T1 and T1 post gadolinium fat-saturated MR images of the brain were obtained. Coronal T2 drive, T1 and T1 post gadolinium fat-saturated as well as axial T1 and T1 post gadolinium fat-saturated MR images of the orbits were obtained. Sagittal T1 pre- and postgadolinium, coronal T1 pre- and postgadolinium and coronal T2 weighted MR images of the pituitary gland were obtained. Findings: The ventricles and extra-axial CSF spaces are age-appropriate. There is no midline shift. Signal intensity throughout the brain and brainstem is unremarkable for patient age. Flow-voids are present in the major intracranial arteries and dural venous sinuses. The paranasal sinuses are clear. There is a small amount of fluid within the mastoid air cells bilaterally. The orbits are unremarkable in appearance. There is no abnormality of the orbital preseptal soft tissues or retro-orbital fat. The superior ophthalmic veins, optic nerves and extraocular musculature are normal and symmetric in caliber. There is no abnormal enhancement of the optic nerves. The lacrimal glands are unremarkable in appearance. There is thickening and enhancement of the pituitary stalk. Stalk is midline in location. No abnormality of the pituitary gland itself is identified. The sella is normal in size. The optic chiasm is normal in position without mass effect identified upon it. Impression: 1. Thickening of the pituitary infundibulum. Differential considerations include Langerhans histiocytosis, lymphocytic hypophysitis, and sarcoidosis, as well as rarer causes such as tuberculosis, lymphoma and metastatic disease. ??Follow up imaging in 3 to 6 months is suggested. 2. Small amount of fluid in the mastoid air cells bilaterally. Addendum Begins This exam has been addended to add an attending radiologist. ??The text has not been altered. Addendum Ends Procedure Note Emma Ty MD / Gustavo, Evens Lugo MD - 10/20/2008 transient visual loss both eyes,passing out,abnormal visual field,headache MRI of the Brain, Pituitary and Orbits on 11/03/2006 at 2:26 p.m. History: Transient visual loss both eyes. Passing out. Abnormal visual field. Headache. Rule out brain, pituitary pathology. Technique: Sagittal T1 FLAIR, axial T2 GRASE, and T2 FLAIR, DWI, T1 and T1 post gadolinium fat-saturated MR images of the brain were obtained. Coronal T2 drive, T1 and T1 post gadolinium fat-saturated as well as axial T1 and T1 post gadolinium fat-saturated MR images of the orbits were obtained. Sagittal T1 pre- and postgadolinium, coronal T1 pre- and postgadolinium and coronal T2 weighted MR images of the pituitary gland were obtained. Findings: The ventricles and extra-axial CSF spaces are age-appropriate. There is no midline shift. Signal intensity throughout the brain and brainstem is unremarkable for patient age. Flow-voids are present in the major intracranial arteries and dural venous sinuses. The paranasal sinuses are clear. There is a small amount of fluid within the mastoid air cells bilaterally. The orbits are unremarkable in appearance. There is no abnormality of the orbital preseptal soft tissues or retro-orbital fat. The superior ophthalmic veins, optic nerves and extraocular musculature are normal and symmetric in caliber. There is no abnormal enhancement of the optic nerves. The lacrimal glands are unremarkable in appearance. There is thickening and enhancement of the pituitary stalk. Stalk is midline in location. No abnormality of the pituitary gland itself is identified. The sella is normal in size. The optic chiasm is normal in position without mass effect identified upon it. Impression: 1. Thickening of the pituitary infundibulum. Differential considerations include Langerhans histiocytosis, lymphocytic hypophysitis, and sarcoidosis, as well as rarer causes such as tuberculosis, lymphoma and metastatic disease. Follow up imaging in 3 to 6 months is suggested. 2. Small amount of fluid in the mastoid air cells bilaterally. Addendum Begins This exam has been addended to add an attending radiologist. The text has not been altered. Addendum Ends Fidel Figueroa MD [facility] [place]LES * TSH (07/05/2006 16:00 EDT) TSH 1.91 0.35 - 5.00 uIU/mL [facility] 07/05/2006 16:0 0 EDT 07/05/2006 20:27 EDT Leeanna Cohn MD CHEMISTRY & BLOOD G ORDERABLES Performing Organization Address City/State/[facility] Co de Phone Number [facility] [address] [place] [address] documented in this encounter Visit Diagnoses Not on filedocumented in this encounter
--- OUTSIDE RECORDS SUMMARY | 2024-01-03 01:10 | XMS_ITS | Encounter Summary ---
Author Organization [facility] Address [address] [place] [address] Care Team Providers Care Research Laboratory Specialist Name Role Phone Terry Hall MD Unavailable Yehuda Stallworth DO Primary Care Provider Reason for Visit * Reason Onset Date Comments New/Evolving Symptoms 05/21/2016 Dermatitis Encounter Details Date Type Department Care Team (Late st Contact Info) Description 05/21/2016 Telephone [facility] Dermatology [address]rd [address] [address] Shannan Whelan MD [address] [facility], [address] [place] [address] New/Evolving Symptoms (Dermatitis) Social History Tobacco Use Types Packs/Day Years [...] No 05/15/2016 documented as of this encounter Miscellaneous Notes * Telephone Encounter - Diamond Kuo RN - 05/22/2016 1412 EST Patient scheduled 05/23/16 at 240 with MD DIAMOND Tuttle RN 05/22/2016 14:18 * Telephone Encounter - Marissa Cullen - 05/21/2016 1340 EST Mukund Montano NP Auth Provider: MUKUND MONTANO Enc Provider: Mukund Montano NP Diagnosis: Type 2 diabetes mellitus without complication, with long-term current use of insulin Dermatitis Department: [facility] Endocrinology T2 Diabetes right heal cracking dry. Using lotrimin, Eucerin, improves slightly but never resolves ?? Scheduling Time Frame: ?? documented in this encounter Plan of Treatment Not on file documented as of this encounter Visit Diagnoses Not on filedocumented in this encounter Care Teams Research Laboratory Specialist Relationship Specialty Start Date End Date Yehuda Stallworth DO [address] [place] [phone] PCP - General 05/15/16 10/15/21 Terry Hall MD [address] [place] [id number] 07/02/14 documented as of this encounter
--- OUTSIDE RECORDS SUMMARY | 2024-01-03 01:10 | XMS_ITS | Encounter Summary ---
Author Organization [facility] Address [address] [place] [address] Care Team Providers Care Wireline Supervisor Name Role Phone Terry Hall MD Primary Care Provider [phone] Terry Hall MD Unavailable Encounter Details Date Type Department Care Team (Late st Contact Info) Description 08/10/2015 Phlebotomy Only [facility] [place] [address] [place] [address] Rider Ticket Worker, Outpatient Type 2 diabetes mellitus with hyperglycemia (CMS-HCC) ([facility]) (Primary Dx) Social History Tobacco Use Types [...] No 08/10/2015 documented as of this encounter Progress Notes * Greta Galicia, [employer] [facility] - 10/19/2015 8478 EDTQuick Note: Abnormal, please contact the patient to tell her about the results, no change in therapy is needed.Cholesterol level is elevated. Consider increasing pravachol. Can discuss at next spencer't. documented in this encounter Plan of Treatment Not on file documented as of this encounter Procedures Procedure Name Priority Date/Time Associated Diagnosis Comments THYROID CASCADE Routine 08/10/2015 14:11 EDT Type 2 diabetes mellitus with hyperglycemia ([facility]) ([facility]) URINE [id number] RATIO (ACR) Routine 08/10/2015 14:11 EDT Type 2 diabetes mellitus with hyperglycemia ([facility]) ([facility]) LIPID PROFILE (INCLUDES CHOLESTEROL, TRIGLYCERIDES, HDL, LDL) Routine 08/10/2015 14:11 EDT Type 2 diabetes mellitus with hyperglycemia ([facility]) ([facility]) COMPREHENSIVE METABOLIC PANEL (CMP) Routine 08/10/2015 14:11 EDT Type 2 diabetes mellitus with hyperglycemia ([facility]) ([facility]) documented in this encounter Results * THYROID CASCADE (08/10/2015 14:11 EDT) TSH 1.06 0.55 - 4.78 uIU/ml 08/10/2015 17:46 EDT [facility] Comment: TSH cascade is not recommended for patients in which pituitary or hypothalamic disorders are suspected. Blood specimen (specimen) BLOOD SPECIMEN / Unknown 08/10/2015 14:11 EDT 08/10/2015 15:20 EDT Greta Galicia NP CHEMISTRY & BLOOD G ORDERABLES [facility] [address] [place] [address] * (ABNORMAL) COMPREHENSIVE METABOLIC PANEL (CMP) (08/10/2015 14:11 EDT) Pathologist [facility] [place] Potassium 4.3 3.5 - 5.0 mEq/L 08/10/2015 16:24 [facility] Comment: Slight hemolysis Hemolysis may elevate potassium result. Sodium 137 136 - 145 mEq/L 08/10/2015 16:24 [facility] Comment:Slight hemolysis Chloride 98 96 - 110 mEq/L 08/10/2015 16:24 [facility] Comment:Slight hemolysis CO2 24 24 - 32 mEq/L 08/10/2015 16:24 [facility] Comment:Slight hemolysis Total Alkaline Phosphatase 74 38 - 126 U/L 08/10/2015 16:24 [facility] Comment: Slight hemolysis Hemolysis will decrease ALKP result Suggest re-evaluation if clinically indicated Bilirubin, Total 0.8 <1.4 mg/dl 08/10/19 16 16:24 [facility] Comment: Slight hemolysis Results may be affected due to hemolysis. AST 19 15 - 46 U/L 08/10/2015 16:24 [facility] Comment: Slight hemolysis Results may be affected due to hemolysis. ALT 19 <53 U/L 08/10/2015 16:24 [facility] Comment: Slight hemolysis Results may be affected due to hemolysis. Albumin 4.1 3.4 - 4.9 g/dl 08/10/2015 16:24 [facility] Comment: Slight hemolysis Results may be affected due to hemolysis. Total Protein 6.6 6.3 - 8.2 g/dl 08/10/2015 16:24 [facility] Comment: Slight hemolysis Results may be affected due to hemolysis. Creatinine 0.51(L) 0.52 - 1.04 mg/dl 08/10/2015 16:24 [facility] Comment:Slight hemolysis GFR, Calculated 126 >60 ml/min/1.7 3m2 08/10/2015 16:24 [facility] Comment: eGFR calculated using CKD-EPI equation for non Americans. Multiply eGFR by 1.16 for Americans. BUN 11 10 - 26 mg/dl 08/10/2015 16:24 [facility] Comment: Slight hemolysis Results may be affected due to hemolysis. Calcium 9.0 8.5 - 10.5 mg/dl 08/10/2015 16:24 EDT [facility] Comment:Slight hemolysis Calculated Calcium 9.3 8.5 - 10.5 mg/dl 08/10/2015 16:24 EDT [facility] Glucose, Serum 199(H) 70 - 100 mg/dl 08/10/2015 16:24 EDT [facility] Comment: Slight hemolysis Results may be affected due to hemolysis. Fasting? Unknown 08/10/2015 14:11 EDT [facility] Blood specimen (specimen) BLOOD SPECIMEN / Unknown 08/10/2015 14:11 EDT 08/10/2015 15:20 EDT Greta Galicia NP CHEMISTRY & BLOOD G ORDERABLES Performing Organization Address [facility] de Phone Number [facility] [address] [place] [address] * ALBUMIN, URINE (08/10/2015 14:11 EDT) Creatinine, Urn [place] 104.2 mg/dl 08/11/2015 9:20 EDT [facility] Ur Albumin mg/dl 0.8 mg/dl 08/11/2015 12:30 T [facility] Ur Alb ug/mg Crea 7.7 ug/mg Crea 08/11/2015 12:30 T [facility] Comment: Normal: <30 ug/mg creat High albuminuria: 30-300 ug/mg creat Very high albuminuria: >300 ug/mg creat Urine specimen (specimen) URINE / Unknown 08/10/2015 14:11 EDT 08/10/2015 15:22 EDT Greta Galicia NP CHEMISTRY & BLOOD G ORDERABLES Performing Organization Address [facility] Co de Phone Number [facility] [address] [place] [address] * LIPID PROFILE (INCLUDES CHOLESTEROL, TRIGLYCERIDES, HDL, LDL) (08/10/2015 14:11 EDT) Cholesterol 234 mg/dl 08/10/2015 16:24 [facility] Comment: Slight hemolysis Desirable:<200 Borderline High:200-239 High:>xt=609 Triglycerides 209 mg/dl 08/10/2015 16:24 [facility] Comment: Slight hemolysis Normal:<150 Borderline High:150-199 High:200-499 Very High:>sq=730 HDL 49 mg/dl 08/10/2015 16:24 [facility] Comment: Slight hemolysis Low:<40 Normal:40-60 Desirable: >60 LDL, Calculated 143 mg/dl 6 16:24 [facility] Comment: Optimal:<100 Near Optimal:100-129 Borderline High:130-159 High:160-189 Very High:>ww=244 Chol/HDL Ratio 4.8 08/10/2015 16:24 [facility] Fasting? Unknown 08/10/2015 14:11 [facility] Non HDL Cholesterol 185 mg/dl 08/10/2015 16:24 [facility] Comment: Slight hemolysis Desirable:<130 Borderline:130-159 High: 160-189 Very High: >hm=259 Blood specimen (specimen) BLOOD SPECIMEN / Unknown 08/10/2015 14:11 EDT 08/10/2015 15:20 EDT Greta Galicia [facility] [employer] CHEMISTRY & BLOOD G ORDERABLES Performing Organization Address [facility] Co de Phone Number [facility] [address] [place] [address] documented in this encounter Visit Diagnoses Diagnosis Type 2 diabetes mellitus with hyperglycemia ([facility])- Primary Type II or unspecified type diabetes mellitus without mention of complication, not stated as uncontrolled documented in this encounter Care Teams Wireline Supervisor Relationship Specialty Start Date End Date Terry Hall MD PCP - General 07/02/14 10/16/15 Terry Hall MD [address] [place] [id number] 07/02/14 documented as of this encounter
--- OUTSIDE RECORDS SUMMARY | 2024-01-03 01:10 | XMS_ITS | Encounter Summary ---
Author Organization [facility] Address [address] [place] [address] Care Team Providers Care Training And Development Professional Name Role Phone Terry Hall MD Unavailable Unknown, Provider Primary Care Provider [phone] Reason for Visit * Reason Comments Dizziness Patient arrives comp laining of dizziness, nausea, and headache. Also complains of pain from Sunbun. Sunmiguel Encounter Details Date Type Department Care Team (Late st Contact Info) Description 10/17/2015 8:01 EDT - 10/17/2015 12:29 EDT Emergency [facility] Emergency Department - [address], [place] [id number] Oseas Muse MD [address] [place] [id number] Emergency, MD Jodi Dela Cruz (Primary Dx); Dehydration Discharge Disposition: Home or Self Care Social [...] Sign Reading Time Taken Comments Blood Pressure 115/57 10/17/2015 1157 EDT Pulse 101 10/17/2015 0814 EDT Temperature 37 ??C (98.6 ??F) 10/17/2015 0814 EDT Respiratory Rate 16 10/17/2015 0814 EDT Oxygen Saturation 100% 10/17/2015 1157 EDT Inhaled Oxygen Concentration - - Weight 77.1 kg (170 lb) 10/17/2015 0814 EDT Height 162.6 cm (5' 4) 10/17/2015 0814 EDT Body Mass Index 29.18 10/17/2015 0814 EDT documented in this encounter Functional Status [...] 08/10/2015 documented as of this encounter Discharge Instructions * Attachments The following attachments cannot be sent through Care Everywhere. * DEHYDRATION (BERMUDIAN) * SUNBURN (BERMUDIAN) documented in this encounter Medications at Time of Discharge Medication Sig Dispensed Refills Start Date End Date insulin aspart protamine-insulin aspart (NOVOLOG FLEXPEN 70/30) 100 unit/mL (70-30) injectable penIndications:Type 2 diabetes mellitus with hyperglycemia (HCC-CMS) Inject 26 Units into the skin BEFORE BREAKFAST & DINNER. 1 Box 11 08/10/2015 09/12/2016 pravastatin (PRAVACHOL) 10 mg tabletIndications:Type 2 diabetes mellitus with hyperglycemia (HCC-CMS) Take 10 mg by mouth daily. 01/11/2016 documented as of this encounter Discharge Disposition Disposition Code Departure Means Destination Home or Self Care Car Home documented in this encounter ED Notes * Jenn Alvarenga RN - 10/17/2015 1157 EDT Blood drawn via butterfly needle per protocol, tiger tube(s) sent to lab per order. * Jenn Alvarenga RN - 10/17/2015 1020 EDT Blood drawn via saline lock per protocol, tiger tube(s) sent to lab per order. * Oseas Muse MD - 10/17/2015 0923 EDT DOS: 10/17/2015 Chief Complaint Patient presents with ??? Dizziness Patient arrives complaining of dizziness, nausea, and headache. Also complains of pain from Sunbun. ??? Sunburn HPI The patient is a 35 y.o. female who presents today with Dizziness and Sunburn HPI Comments: IJayleen, am scribing for Oseas Muse MD while he/she is personally performing the service. Jayleen Mcfarland 10/17/2015 9:24 Emma Min is a 35 y.o. female with a history of type II DM who presents with complaint of nausea, migraine HATCH, light headedness and pain from her sunburn which began around 9:30 last evening. [place] but was wearing sunscreen.Patient states that her symptoms intensified this morning. Patient additionally endorses diarrhea. Patient without sick contact at home or recent sickness. Patient has been able to keep fluids down. She reports not taking her insulin this morning as she felt that it would make her feel worse. Patient did not take OTC medications for her pain prior to arrival. The history is provided by the patient. Dizziness Quality: Lightheadedness Severity: Mild Onset quality: Gradual Timing: Constant Progression: Worsening Chronicity: New Relieved by: Nothing Worsened by: Nothing Ineffective treatments: None tried Associated symptoms: diarrhea, headaches and nausea Associated symptoms: no palpitations, no shortness of breath and no vomiting Sunburn Associated symptoms: no cough and no shortness of breath Review of Systems Review of Systems Constitutional: Negative for fever and activity change. HENT: Negative for congestion and rhinorrhea. Eyes: Negative for discharge and redness. Respiratory: Negative for cough, shortness of breath, wheezing and stridor. Cardiovascular: Negative for palpitations and leg swelling. Gastrointestinal: Positive for nausea and diarrhea. Negative for vomiting, abdominal pain and abdominal distention. Genitourinary: Negative for difficulty urinating and pelvic pain. Musculoskeletal: Negative for back pain and gait problem. Skin: Positive for color change. Negative for rash. Neurological: Positive for dizziness, light-headedness and headaches. Psychiatric/Behavioral: Negative. All other systems reviewed and are negative. The patient's past medical, family and social history was reviewed and updated as needed. Allergies Allergen Reactions ??? Seroquel [Quetiapine] Anaphylaxis All anti depressant medications ??? Lactose Diarrhea ??? Latex, Natural Rubber Swelling and Rash Vital Signs Vitals Reassessment?: Yes Temp: 37 ??C (98.6 ??F) Temp src: Oral Pulse: 101 Heart Rate: 72 BPM Resp: 16 SpO2: 100 % BP: 115/57 mmHg BP MAP: 69 mm Hg BP Device: BP Machine Patient Position: Semi fowlers BP Cuff Location: Right arm O2 Device: None (Room air) Physical Exam Constitutional: She is oriented to person, place, and time. She appears well- developed and well-nourished. HENT: Head: Normocephalic and atraumatic. Eyes: Conjunctivae and EOM are normal. Pupils are equal, round, and reactive to light. Right eye exhibits no discharge. Left eye exhibits no discharge. Neck: Normal range of motion. Neck supple. No tracheal deviation present. Cardiovascular: Normal rate, regular rhythm and normal heart sounds. No murmur heard. Pulmonary/Chest: Effort normal and breath sounds normal. No respiratory distress. Abdominal: Soft. Bowel sounds are normal. She exhibits no distension. There is no tenderness. Musculoskeletal: Normal range of motion. She exhibits no edema. Neurological: She is alert and oriented to person, place, and time. Skin: Skin is warm and dry. Sunburn on chest and arms. No blistering. Tender to touch. Psychiatric: She has a normal mood and affect. Nursing note and vitals reviewed. RESULTS ED Lab Results Procedures ED COURSE A medical screening exam was performed. Patient given IV fluids and IV Toradol. 10:53 PM. On reevaluation patient felt mildly improved but continued to complain of headache. Patient had labs that were reviewed independently by myself. Labs non-actionable. Patients work up was reassuring today including labs and symptomatic improvement. Patient discharged to home with return precautions. I believe her symptoms were primarily from dehydration and sunburn. I advised rest, hydration and NSAIDS for discomfort. ASSESSMENT AND PLAN Final diagnoses: Sunburn Dehydration DISPOSITION: Discharged The patient's pain was managed to an adequate level weighing risk vs. benefit of further medications. Upon departure from the Emergency Department, the patient's pain was 0 on a zero to ten scale. Condition at departure from the Emergency Department: Improved PCP: Doctor Unknown MDM This documentation is recorded by Jayleen Mcfarland acting as Scribe under the direction and presence of Oseas Muse MD. Oseas Muse MD: I personally performed the services recorded by the scribe in my presence. Iconfirm the scribe's documentation has been reviewed by me to accurately and completely record my work, treatment, procedures, and medical decision making. 10/17/2015 12:22 No flowsheet data found. documented in this encounter Plan of Treatment Not on file documented as of this encounter Procedures Procedure Name Priority Date/Time Associated Diagnosis Comments BASIC METABOLIC PANEL (BMP) STAT 10/17/2015 11:57 EDT REDRAW LABS Routine 10/17/2015 10:00 EDT documented in this encounter Results * (ABNORMAL) BASIC METABOLIC PANEL (10/17/2015 11:57 EDT) Sodium 139 136 - 145 mEq/L 10/17/2015 12:18 T [facility] Potassium 4.2 3.5 - 5.0 mEq/L 10/17/2015 12:18 [facility] Chloride 101 96 - 110 mEq/L 10/17/2015 12:18 [facility] CO2 24 24 - 32 mEq/L 10/17/2015 12:18 [facility] BUN 12 10 - 26 mg/dl 10/17/2015 12:18 [facility] Creatinine 0.58 0.52 - 1.04 mg/dl 10/17/2015 12:18 [facility] GFR, Calculated 121 >60 ml/min/1.7 3m2 10/17/2015 12:18 [facility] Comment: eGFR calculated using CKD-EPI equation for non Americans. Multiply eGFR by 1.16 for Americans. Calcium 9.8 8.5 - 10.5 mg/dl 10/17/2015 12:18 EDT [facility] Calculated Calcium 10.3 8.5 - 10.5 mg/dl 10/17/2015 12:18 EDT [facility] Glucose, Serum 237(H) 70 - 100 mg/dl 10/17/2015 12:18 EDT [facility] Fasting? Unknown 10/17/2015 12:02 EDT [facility] Blood specimen (specimen) BLOOD SPECIMEN / Unknown 10/17/2015 11:57 EDT 10/17/2015 12:01 EDT Oseas Muse MD CHEMISTRY & BLOOD GA S ORDERABLES Performing Organization Address City/[facility]/ZIP Co de Phone Number [facility] [address] [place] [address] * REDRAW LABS (10/17/2015 10:00 EDT) Redraw BMP MARKEDLY [email or web address].PB 10/17/2015 11:08 EDT [facility] TOPOGRAPHY UNKNOWN / Unknown 10/17/2015 10:00 EDT 10/17/2015 10:19 EDT Oseas Muse MD LAB INFO SERVICE AND SUPPORT & PHONE RESULT Performing Organization Address City/[facility]/ZIP Co de Phone Number [facility] [address] [place] [address] documented in this encounter Visit Diagnoses Diagnosis Sunburn- Primary Dehydration documented in this encounter Administered Medications Inactive Administered Medications - up to 3 most recent administrations Medication Order MAR Action Action Date Dose Rate Site ketOROLAC (TORADOL) injection 30 mg 30 mg, intravenous, NOW X1, 1 dose, On Sat10/17/15 at 0945, STAT Given 10/17/2015 10:20 EDT 30 mg sodium chloride 0.9 % BOLUS 1,000 mL 1,000 mL, intravenous, NOW X1, 1 dose, On Sat10/17/15 at 0945, STAT New Bag 10/17/2015 10:20 EDT 1,000 mL documented in this encounter Active and Recently Administered Medications Times are shown in EDT. Scheduled Medication Order 10/15/2015 10/16/2015 10/17/2015 ketOROLAC (TORADOL) injection 30 mg (COMPLETED) 30 mg, intravenous, NOW X1, 1 dose, On Sat10/17/15 at 0945, STAT 1020 (Given - Provid er: Jenn Alvarenga, RN) sodium chloride 0.9 % BOLUS 1,000 mL (COMPLETED) 1,000 mL, intravenous, NOW X1, 1 dose, On Sat10/17/15 at 0945, STAT 1020 (New Bag - Prov ider: Jenn Alvarenga, RN)1228 (Completed - Provider: Jenn Alvarenga, RN) documented in this encounter Orders Nursing Count Last Ordered Date First Orde red Date INSERT PERIPHERAL IV 1 10/17/2015 documented in this encounter Care Teams Training And Development Professional Relationship Specialty Start Date End Date Unknown, Provider, [address] [place] [address] PCP - General 10/17/15 05/14/16 Terry Hall MD [address] [place] [id number] 07/02/14 documented as of this encounter
--- OUTSIDE RECORDS SUMMARY | 2024-01-03 01:10 | XMS_ITS | Encounter Summary ---
Author Organization [facility] Address [address] [place] [address] Care Team Providers Care Assistant Scientist Name Role Phone Terry Hall MD Primary Care Provider Terry Hall MD Unavailable Encounter Details Date Type Department Care Team (Late st Contact Info) Description 09/23/2014 Orders Only [facility] Endocrinology - [facility] [address] [place] [address] Camila Sewell CDE [address] [facility] [address] [place] [address] Type II or unspecified type diabetes mellitus [...] 15:46 EST documented as of this encounter Ordered Prescriptions Prescription Sig Dispensed Refills Start Date End Da te insulin pen needles 31G x 07/05Indications:Type II or unspecified type diabetes mellitus without mention of complication, uncontrolled Use 4 pen needles as directed daily Brand: BD Ultra Fine Mini 400 Each 3 09/23/2014 09/23/2015 documented in this encounter Plan of Treatment Not on file documented as of this encounter Visit Diagnoses Diagnosis Type II or unspecified type diabetes mellitus without mention of complication, uncontrolled- Primary documented in this encounter Discontinued Medications Medication Sig Discontinue Reason Start Date End Da te insulin pen needles 31G x 07/05Indications:Type II or unspecified type diabetes mellitus without mention of complication, uncontrolled Use as directed daily Brand: BD Ultra Fine Mini Reorder 09/23/2014 09/23/2014 documented as of this encounter Care Teams Assistant Scientist Relationship Specialty Start Date End Date Terry Hall MD PCP - General 07/02/14 10/16/15 Terry Hall MD [address] [place] [id number] 07/02/14 documented as of this encounter
--- OUTSIDE RECORDS SUMMARY | 2024-01-03 01:10 | XMS_ITS | Encounter Summary ---
Author Organization [facility] Address [address] [place] [address] Care Team Providers Care Fire Protection Specialist Name Role Phone Terry Hall MD Primary Care Provider [phone] Terry Hall MD Unavailable Reason for Referral * Consult (Routine) - Closed Specialty Diagnoses / Procedures Referred By Luana landon Referred To Contact Endocrinology Diagnoses Type II or unspecified type diabetes mellitus without mention of complication, uncontrolled Greta Galicia NP [address] [id number] [facility] Endocrinology [address] [place] [id number] Referral ID Status Reason Start Date Expiration Date V isits Requested Visits Authorized [id number] Closed Specialty Services Required 09/23/2014 1 1 Question Answer Reason for Request: Nutrition and DM management with insulin Reason for Visit * Reason Comments Diabetes Encounter Details Date Type Department Care Team (Latest Contact Info) Description 09/23/2014 8:20 EDT Office Visit [facility] Endocrinology - [address] [address] Greta Galicia NP 62 [facility] [address] [place] [address] Type II or unspecified type diabetes mellitus without mention of complication, uncontrolled (Primary Dx) Discharge Disposition: Auto Discharge Social History Tobacco [...] Sign Reading Time Taken Comments Blood Pressure 105/61 09/23/2014828 EDT Pulse 86 09/23/2014828 EDT Temperature - - Respiratory Rate - - Oxygen Saturation - - Inhaled Oxygen Concentration - - Weight 89.5 kg (197 lb 4.8 oz) 09/23/2014 08 E DT Height 162.6 cm (5' 4) 09/23/2014828 EDT Body Mass Index 33.87 09/23/2014 08 EDT documented in this encounter Discharge Diagnoses Diagnosis 250.02 DIABETES UNCOMPL ADULT-UNCONTRLLED[ICD-9-CM] documented in this encounter Patient Instructions * Patient Instructions* Greta Galicia NP - 09/23/2014 8:55 EDT Your Hemoglobin A1C is: 10 With average blood sugar of: 253 Your Goal at this time: Taking FS regularly Blood sugar goals are: 80-130 in AM, 90-160 prior to other meals. Your personal Blood sugar goals: 150-200 Please take Blood Sugars: 4 times daily. Take Before Meals, at Bedtime, and if you feel a low sugarcoming on. Keeping a diary of blood sugars will help you see your particular problem areas of blood sugar control Recommend Diabetes Medic Alert Tag Especially if you take insulin Carry a source of glucose with you at all times, especially if you are on Insulin or oral medications Always Bring your Glucometer to clinic with you. Medications for Diabetes: Lantus 45 units daily In AM Novolog 8 units with meals Metformin ER 500mg daily Call in blood sugars next week- [phone] And ask to speak with Camila Blood Pressure Goal is <130/80, Yours is: BP 105/61 Pulse 86 Ht 162.6 cm (64) Wt 89.495 kg (197 lb 4.8 oz) BMI 33.85 kg/m2 LMP (Approximate) Cholesterol goal for LDL (bad cholesterol) is For those with Diabetes <100, for those with Diabetes and Heart Disease, 70 or less. Yours is: Lab Results Component Value Date CHOL 258 01/16/2006 HDL 44 01/16/2006 LDLBASE 184 01/16/2006 TRIG 148 01/16/2006 CHOLHDL 5.9 01/16/2006 If you are able to, recommend taking an aspirin a day Recommend Dentist visit twice yearly Diet: Please work on decreasing calories and carbohydrates in your diet. Human Resources Advisor needed: Yes Exercise: Please try to exercise for at least 30 minutes, at least 3 times a week if you are able to tolerate exercise. Eye Appointment: When blood sugars better controlled Foot Care: Protect your feet by wearing supportive shoes that do not rub or chafe your feet. Wash, inspect, and apply non-perfumed skin cream to feet each night before bed. Fasting Labs Due: Not at this time See you back: 2 months Please follow this Diabetes Treatment Plan and call the Diabetes Center at [phone] for questions or concerns about your blood sugars Hypoglycemia (Low Blood Sugar) What is it? A blood sugar of or below. What are the symptoms? Early [...] low, repeat step 2 and 3. 5. follow up with a snack to prevent [...] blood stream. You will stay low longer. LANTUS INSULIN Your health care provider has asked you to start taking Lantus to improve your blood sugars. Lantus is a long acting insulin that most people take once a day. Some people may need to take it twice daily. It is used to keep your blood sugar stable when you are not eating. Lantus starts working in about 2 to 3 hours after the injection and then for most people lasts for 24 hours in your system. There is very little or no peak effect with Lantus. Peak effect refers to a time period when some other insulins affect your blood sugars the strongest. Your health care provider will tell you what time of the day to take your Lantus. It is important that you take the injection at about the same time every day. Lantus administration does not need to be taken with meals. Lantus is a CLEAR insulin and comes in either a vial or pen. Lantus cannot be mixed with any other insulin in a syringe. If you are taking a rapid or fast acting insulin at the same time, you must take 2 different shots and separate the injections by at least 2 inches on your body. Your unopened vials or pens should be stored in the refrigerator and are good until the printed expiration date. After opening, Lantus vials or pens are stable at room temperature for 28 days Please call the [facility] at [phone] with any questions. Your Current dose is RAPID ACTING INSULIN There are 3 different brands of rapid acting insulin: Novolog ,Humalog, and Apidra You will be taking Your health care provider has asked you to start taking a rapid acting insulin to lower your blood sugars. Your body is not making enough insulin on its own to help process the starches and sugars that you eat. You will take this insulin right before you eat. It is important not to take it more than 15 minutes prior to eating because you can have a dangerous drop in your blood sugar. Most people take this insulin when their meal is on the table or even immediately after the meal. If you forget your insulin prior to eating, you can take the dose up to ?? hour after eating. If you forget rapid insulin longer than ?? hour after eating, wait until the meal to take a dose If you are dining out, you may want to take this insulin right after the meal. If your meal is not served on time your blood sugar may become too low. This insulin starts to work in about 10 minutes. It is at its strongest in about 90-120 minutes It can last in your system for about 4-5 hours. You should not take this insulin at bedtime unless specifically directed to do so by your health care team. All rapid acting insulins are CLEAR. Your unopened insulin vials or pens should be stored in the refrigerator and are good until the printed expiration dose. After opening insulin a vial or pen, Insulin is stable at room temperature for 28 days after opening. Avoid exposure to excessive heat or cold as it can spoil the effectiveness of the insulin Please call the [facility] at [phone] with any questions. documented in this encounter Ordered Prescriptions Prescription Sig Dispensed Refills Start Date End Da te blood glucose (FREESTYLE INSULINX) test stripsIndications:Type II or unspecified type diabetes mellitus without mention of complication, uncontrolled Use 4 Strips as directed daily On basal bolus insulin 300 Each 3 09/23/2014 09/23/2015 insulin pen needles 31G x 3/16Indications:Type II or unspecified type diabetes mellitus without mention of complication, uncontrolled Use as directed daily Brand: BD Ultra Fine Mini 100 Each 12 09/23/2014 09/23/2014 metFORMIN (GLUCOPHAGE-XR) 500 mg ER tabletIndications:Type II or unspecified type diabetes mellitus without mention of complication, uncontrolled Take 1 Tab by mouth daily 90 Tab 3 09/23/2014 08/10/2015 insulin aspart (NOVOLOG FLEXPEN) 100 unit/mL injectable penIndications:Type II or unspecified type diabetes mellitus without mention of complication, uncontrolled Inject 8 Units into the skin 3 times daily with meals 1 Box 11 09/23/2014 08/10/2015 insulin glargine (LANTUS SOLOSTAR) 100 unit/mL (3 mL) injection penIndications:Type II or unspecified type diabetes mellitus without mention of complication, uncontrolled Inject 45 Units into the skin at bedtime 1 Box 11 09/23/2014 08/10/2015 documented in this encounter Discharge Disposition Disposition Code Departure Means Destination Auto Discharge documented in this encounter Progress Notes * Greta Galicia NP - 09/23/2014 1359 EDT Subjective: Patient ID: Emma Faith is an 34 y.o. female. Chief Complaint Patient presents with ??? Diabetes HPI This is a 34 y.o. yr old female arrives today as a New Patient visit for treatment of Type 2 Diabetes. Diabetes diagnosed 2004. Initially from [place] moved back to [facility] 6 months ago from [facility]. Due to marital problems. Divorce recently finalized. States when she left [place] in March hemoglobin A1c was in the7 range. She has had multiple stressors and admits she has not been taking insulin nor her metformin on a regular basis. Hoping to get her blood sugars under better control. States whenever her bloodsugars get down into the mid 100 range she feels shaky like she has a low sugar. This makes it harder for her to improve her control. Pertinent Past Medical History: Has sporadic insomnia feels it is due to stressors in her life. Diabetes Complications and Symptoms: Has had intermittent blurred vision with her blood sugars high, denies retinopathy last eye appointment was approximately 1 year ago. Notices fatigue, has intermittent numbness in her hands, notices some bloating and gas, polydipsia as well as polyuria nocturia usually twice per night. General health and social issues since last visit: Stable Contributory visits to PCP and or other subspecialties: Has established a PCP in [place] Changes in other pertinent medications: No. 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 She is on the state health insurance. She has 2 children aged 11 and 9 years old. Not currently sexually active. Denies gestational diabetes. Pertinent Family History: Maternal grandfather had diabetes. Current diabetes medications include: Was prescribed Lantus 50 units every evening Humalog 26 unitsbefore each meal and metformin 1000 mg twice daily. States she has not taken Lantus for quite some time sporadically takes Humalog and metformin. Finger stick monitoring: Keeps a diary: No. Brought Glucometer: Yes, unable to down load. Takes finger sticks: sporadicly. Does not like to do FS as they are all high Trends: Reviewed recall on glucometer mostly in high 200s -300s. Highs include: 375. Lows include: None. Life style alterations include: Eating habits: Not following diabetic diet Patient's weight: States has lost weight since moving back to [place] was 220 lbs in April Wt Readings from Last 3 Encounters: 09/23/14 89.495 kg (197 lb 4.8 oz) Patient exercise level is: Walks a lot at work, no other exercise Habits: Smoking: No, Alcohol: Seldom, Illicit Drugs: No. Self management: Self Care Efforts: Poor Barriers to adherence: Financial, Emotional and Had insulin in vials, embarrased to draw up in public. . Medic Alert: No Quick source of Glucose: No Rotates Injection Sites: No Last Eye appointment: ~ 1 year ago Dental: No Podiatry or Orthopaedics: No No results found for: HGBA1C Lab Results Component Value Date CHOL 258 01/16/2006 HDL 44 01/16/2006 LDLBASE 184 01/16/2006 TRIG 148 01/16/2006 CHOLHDL 5.9 01/16/2006 Lab Results Component Value Date BUN 11 01/16/2006 CREATININE 0.76 01/16/2006 NA 140 01/16/2006 K 4.3 01/16/2006 Lab Results Component Value Date ALT 14 06/04/2003 No results found for: LABALBU, UCREA, MICRALBCRRAT No components found for: GFR Lab Results Component Value Date TSH 1.91 07/05/2006 There is no problem list on file for this patient. No past medical history on file. No past surgical history on file. No family history on file. Social History Social History ??? Marital Status: Spouse Name: N/A Number of Children: N/A ??? Years of Education: N/A Occupational History ??? Not on file. Social History Main Topics ??? Smoking status: Former Smoker ??? Smokeless tobacco: Not on file ??? Alcohol Use: Not on file ??? Drug Use: Not on file ??? Sexual Activity: Not on file Other Topics Concern ??? Not on file Social History Narrative ??? No narrative on file No current outpatient prescriptions on file prior to visit. No current facility-administered medications on file prior to visit. Allergies Allergen Reactions ??? Seroquel [Quetiapine] Anaphylaxis All anti depressant medications ??? Lactose Diarrhea ??? Latex, Natural Rubber Swelling and Rash labs done at [facility] creatinine 0.71, GFR greater than 60, potassium 4.2, all other electrolytes as well as liver function tests within normal limits. ROS - See HPI Objective: BP 105/61 Pulse 86 Ht 162.6 cm (64) Wt 89.495 kg (197 lb 4.8 oz) BMI 33.85 kg/m2 LMP (Approximate) Physical Exam A1C today: 10.0 noted to be 7.8 at [facility] in May. Weight and changes: See above. Blood Pressure is: At goal. Lipids: Done at [facility] total cholesterol 214, HDL 42, LDL 149, triglycerides 111,ratio 5.09, General Impression and Affect: Obese young [...] great toes, DTRs 2+. Discussion and Recommendation: Patient appears quite overwhelmed by her recent change in life events. Seems now that she has a job she is settling down, and currently has a support staying with her parents. Can easily change from insulin vials to pens, may help her give herself insulin on a more regular basis. States high dose metformin can give her bloating gas and occasional diarrhea. We will drop her down to 500 mg a day with extended release and see if she is able to tolerate that. Follow-up with the dietitian to review food choices as well as to review her blood sugars. Today's spot finger stick it was 385, states she did not take her Lantus today. Gave her 30 units of Lantus this morning in the office. Triage nurse came in and showed her how to use insulin pens. Also gave her a diary to write down her blood sugars as we are unable to download her glucometer. She will call back with her blood sugars next week and we can adjust medication over the phone. Please see below for dosesinitially suggested. I spent a total of 45 minutes in face to face time with this patient today and 40 minutes of that time was spent counseling the patient on the risks and treatment options for diabetes. Assessment: Poorly controlled type 2 diabetes. She has had worsening control since moving back to [place] from [place]. She has lost weight this could be a result of stress as well as her sustained hyperglycemia. She also has a difficult time taking her medications will make some adjustments giving her insulin pens as well as lowering metformin and giving her extended release see if that will help her be more consistent with her self management. She has decreased knowledge about self-care and diabetes management and we will send her on to a certified breastfeeding educator. I will see him back in about 2-3 months, meanwhile will adjust insulin over the phone. Plan: Your Hemoglobin A1C is: 10 With average blood sugar of: 253 Your Goal at this time: Taking FS regularly Blood sugar goals are: 80-130 in AM, 90-160 prior to other meals. Your personal Blood sugar goals: 150-200 Please take Blood Sugars: 4 times daily. Take Before Meals, at Bedtime, and if you feel a low sugarcoming on. Keeping a diary of blood sugars will help you see your particular problem areas of blood sugar control Recommend Diabetes Medic Alert Tag Especially if you take insulin Carry a source of glucose with you at all times, especially if you are on Insulin or oral medications Always Bring your Glucometer to clinic with you. Medications for Diabetes: Lantus 45 units daily In AM Novolog 8 units with meals Metformin ER 500mg daily Call in blood sugars next week- [phone] And ask to speak with Camila Blood Pressure Goal is <130/80, Yours is: BP 105/61 Pulse 86 Ht 162.6 cm (64) Wt 89.495 kg (197 lb 4.8 oz) BMI 33.85 kg/m2 LMP (Approximate) Cholesterol goal for LDL (bad cholesterol) is For those with Diabetes <100, for those with Diabetes and Heart Disease, 70 or less. Yours is: Lab Results Component Value Date CHOL 258 01/16/2006 HDL 44 01/16/2006 LDLBASE 184 01/16/2006 TRIG 148 01/16/2006 CHOLHDL 5.9 01/16/2006 If you are able to, recommend taking an aspirin a day Recommend Dentist visit twice yearly Diet: Please work on decreasing calories and carbohydrates in your diet. Human Resources Advisor needed: Yes Exercise: Please try to exercise for at least 30 minutes, at least 3 times a week if you are able to tolerate exercise. Eye Appointment: When blood sugars better controlled Foot Care: Protect your feet by wearing supportive shoes that do not rub or chafe your feet. Wash, inspect, and apply non-perfumed skin cream to feet each night before bed. Fasting Labs Due: Not at this time See you back: 2 months Please follow this Diabetes Treatment Plan and call the Diabetes Center at [phone] for questions or concerns about your blood sugars Hypoglycemia (Low Blood Sugar) What is it? A blood sugar of or below. What are the symptoms? Early [...] low, repeat step 2 and 3. 5. follow up with a snack to prevent [...] blood stream. You will stay low longer. LANTUS INSULIN Your health care provider has asked you to start taking Lantus to improve your blood sugars. Lantus is a long acting insulin that most people take once a day. Some people may need to take it twice daily. It is used to keep your blood sugar stable when you are not eating. Lantus starts working in about 2 to 3 hours after the injection and then for most people lasts for 24 hours in your system. There is very little or no peak effect with Lantus. Peak effect refers to a time period when some other insulins affect your blood sugars the strongest. Your health care provider will tell you what time of the day to take your Lantus. It is important that you take the injection at about the same time every day. Lantus administration does not need to be taken with meals. Lantus is a CLEAR insulin and comes in either a vial or pen. Lantus cannot be mixed with any other insulin in a syringe. If you are taking a rapid or fast acting insulin at the same time, you must take 2 different shots and separate the injections by at least 2 inches on your body. Your unopened vials or pens should be stored in the refrigerator and are good until the printed expiration date. After opening, Lantus vials or pens are stable at room temperature for 28 days Please call the [facility] at [phone] with any questions. Your Current dose is RAPID ACTING INSULIN There are 3 different brands of rapid acting insulin: Novolog ,Humalog, and Apidra You will be taking Your health care provider has asked you to start taking a rapid acting insulin to lower your blood sugars. Your body is not making enough insulin on its own to help process the starches and sugars that you eat. You will take this insulin right before you eat. It is important not to take it more than 15 minutes prior to eating because you can have a dangerous drop in your blood sugar. Most people take this insulin when their meal is on the table or even immediately after the meal. If you forget your insulin prior to eating, you can take the dose up to ?? hour after eating. If you forget rapid insulin longer than ?? hour after eating, wait until the meal to take a dose If you are dining out, you may want to take this insulin right after the meal. If your meal is not served on time your blood sugar may become too low. This insulin starts to work in about 10 minutes. It is at its strongest in about 90-120 minutes It can last in your system for about 4-5 hours. You should not take this insulin at bedtime unless specifically directed to do so by your health care team. All rapid acting insulins are CLEAR. Your unopened insulin vials or pens should be stored in the refrigerator and are good until the printed expiration dose. After opening insulin a vial or pen, Insulin is stable at room temperature for 28 days after opening. Avoid exposure to excessive heat or cold as it can spoil the effectiveness of the insulin Please call the [facility] at [phone] with any questions. Emma was seen today for diabetes. Diagnoses and associated orders for this visit: Type II or unspecified type diabetes mellitus without mention of complication, uncontrolled - POCT Hemoglobin A1c - insulin glargine (LANTUS SOLOSTAR) 100 unit/mL (3 mL) injection pen; Inject 45 Units into the skin at bedtime - insulin aspart (NOVOLOG FLEXPEN) 100 unit/mL injectable pen; Inject 8 Units into the skin 3 timesdaily with meals - metFORMIN (GLUCOPHAGE-XR) 500 mg ER tablet; Take 1 Tab by mouth daily - Discontinue: insulin pen needles 31G x 3/16; Use as directed daily Brand: [employer] Ultra Fine Mini - blood glucose (FREESTYLE INSULINX) test strips; Use 4 Strips as directed daily On basal bolus insulin - Amb Consult/Follow Up Nutrition Other Orders - Discontinue: metFORMIN (GLUCOPHAGE) 1,000 mg tablet; Take 1,000 mg by mouth 2 times daily - Discontinue: insulin lispro (HUMALOG) 100 unit/mL vial; Inject 26 Units into the skin 3 times daily before meals - Discontinue: insulin glargine (LANTUS) 100 unit/mL injection; Inject 50 Units into the skin at bedtime * Camila Sewell - 09/23/2014 0946 EDT Per Greta Galicia NP patientt instructed in use of novolog and lantus insulin pens Patient has been using insulin with syringe/vials Taught to: Patient and Family Method: Demonstration and Verbal Barriers to learning: None Outcomes: Independent, Verbalized Understanding Return Demonstration Patient demonstrated good technique with insulin pen and accuracy of dosing. She will follow up with me by phone in 1 wk to review bs. Supervised by Greta Galicia NP who was present in the office suite and immediately available. * Ana Nieves - 09/23/2014 0826 EDT Fingerstick blood sample obtained for POCT Hemoglobin A1C performed for this DOS at the order of JOANN Wick. documented in this encounter Plan of Treatment Scheduled Referrals Name Type Priority Associated Diagnoses Orde r Schedule AMB CONS/FOLLOW UP NUTRITION Outpatient Referral Routine DM w/o complication type II, uncontrolled Ordered: 09/23/2014 documented as of this encounter Procedures Procedure Name Priority Date/Time Associated Diagnosis Comments POCT HEMOGLOBIN A1C Routine 09/23/2014 8 :29 EDT Type II or unspecified type diabetes mellitus without mention of complication, uncontrolled documented in this encounter Results * (ABNORMAL) POCT HEMOGLOBIN A1C (09/23/2014 8:29 EDT) Hemoglobin A1c, POC 10.0(A) 5.7 % POINT OF CARE 09/23/2014 8:29 EDT Greta Galicia NP POINT OF CARE TEST ORDERABLES POINT OF CARE documented in this encounter Visit Diagnoses Diagnosis Type II or unspecified type diabetes mellitus without mention of complication, uncontrolled- Primary documented in this encounter Discontinued Medications Medication Sig Discontinue Reason Start Date End Da te insulin glargine (LANTUS) 100 unit/mL injection Inject 50 Units into the skin at bedtime 09/23/2014 insulin lispro (HUMALOG) 100 unit/mL vial Inject 26 Units into the skin 3 times daily before meals 09/23/2014 metFORMIN (GLUCOPHAGE) 1,000 mg tablet Take 1,000 mg by mouth 2 times daily 09/23/2014 documented as of this encounter Historical Medications * This list may reflect changes made after this encounter. Medication Sig Dispensed Refills Start Date End Date insulin glargine (LANTUS) 100 unit/mL injection Inject 50 Units into the skin at bedtime 09/23/2014 insulin lispro (HUMALOG) 100 unit/mL vial Inject 26 Units into the skin 3 times daily before meals 09/23/2014 metFORMIN (GLUCOPHAGE) 1,000 mg tablet Take 1,000 mg by mouth 2 times daily 09/23/2014 added in this encounter Care Teams Fire Protection Specialist Relationship Specialty Start Date End Date Terry Hall MD PCP - General 07/02/14 10/16/15 Terry Hall MD [address] [place] [id number] 07/02/14 documented as of this encounter
--- OUTSIDE RECORDS SUMMARY | 2024-01-03 01:10 | XMS_ITS | Encounter Summary ---
Author Organization [facility] Address [address] [place] [address] Care Team Providers Care Wedding Transportation Driver Name Role Phone Terry Hall MD Unavailable Unknown, Provider Primary Care Provider [phone] Reason for Visit * Reason Onset Date Comments Provider Referred 01/23/2016 Encounter Details Date Type Department Care Team (Late st Contact Info) Description 01/23/2016 Telephone [facility] Dermatology 3rd Floor [address] [phone] Shannan Whelan MD [address] [facility], [address] [place] [address] Provider Referred Social History Tobacco Use Types Packs/Day Years [...] encounter Miscellaneous Notes * Telephone Encounter - Noelle Aguirre RN - 01/23/2016 1712 EDT PRISM Notes Patient is referred by Greta Galicia NP, [facility], for Dermatitis of right foot - t2 diabetes, itchy painful rash, dermatitis on right heal Spoke to patient Rash Right heal Present x 3 months Itchy, scaling, Flaking, peeling, cracking, red, painful Tried Lotion to keep moisturized - not helping Tried OTC product- for cracked heels - not effective Aircraft Time Clerk recommended Lamisil Has been using x 2 weeks - Notes 50% improvement. Peeling and scaling better, not so red, not so itchy, and no longer painful Denies any new exposures except: Used public pool over the summer, didn't where sandals in shower, soon after developed rash No other close relations family or friends with similar rash Requests appointment as late in the day as possible Scheduled for NPV 02/17/16 at [address] Campa, Ep3 NOELLE AGUIRRE RN 01/23/2016 17:30 * Telephone Encounter - Katy Murphy - 01/23/2016 1612 EDT Per mobile home park manager; Please schedule NPV with any provider. Referring Provider: Greta Galicia NP Reason for referral: t2 diabetes, itchy painful rash, dermatitis on right heal documented in this encounter Plan of Treatment Not on file documented as of this encounter Visit Diagnoses Not on filedocumented in this encounter Care Teams Wedding Transportation Driver Relationship Specialty Start Date End Date Unknown, MD Simone [address] [place] [id number] PCP - General 10/17/15 05/14/16 Terry Hall MD [address] [place] [id number] 07/02/14 documented as of this encounter
--- OUTSIDE RECORDS SUMMARY | 2024-01-03 01:10 | XMS_ITS | Encounter Summary ---
Author Organization [facility] Address [address] [place] [address] Care Team Providers Care Optical Sales Associate Name Role Phone Terry Hall MD Unavailable Yehuda Stallworth DO Primary Care Provider Reason for Visit * Reason Comments Diabetes Encounter Details Date Type Department Care Team (Latest Contact Info) Description 09/12/2016 16:20 EDT Office Visit [facility] Endocrinology - [facility] [address] [place] [address] Greta Galicia NP [address] [facility] [address] [place] [address] Type 2 diabetes mellitus with hyperglycemia, with long-term current use of insulin ([facility]) (Primary Dx) Social History Tobacco [...] Sign Reading Time Taken Comments Blood Pressure 130/84 09/12/2016 1700 EDT Pulse 82 09/12/2016 1700 EDT Temperature - - Respiratory Rate - - Oxygen Saturation - - Inhaled Oxygen Concentration - - Weight 87.2 kg (192 lb 4.8 oz) 09/12/2016 1700 E DT Height - - Body Mass Index 33.24 05/15/2016 1454 EST documented in this encounter [...] encounter Patient Instructions * Patient Instructions* Greta Galicia, CHAIN MACHINE OPERATOR - 09/12/2016 16:20 EDT Your Hemoglobin A1C is: 8.3 With average blood sugar of: 194 It is worse from last visit Your Goal at this time: try new insulin as well as Trulicity Blood sugar goals are: 80-130 in AM, 90-160 prior to other meals. Check Blood Sugar: Other: Twice daily in AM and before leaving for work . Recommend Diabetes Medic Alert Tag Especially if you take insulin Carry a source of glucose with you at all times, especially if you are on Insulin or oral medications Keep a diary of Blood sugars and Always Bring your Glucometer to clinic Medications for Diabetes: Stop 70/30 Begin Lantus 28 units daily If having consistent low sugars can decrease Lantus to 22 units Trulicity start at low dose .75mg weekly Watch for GI Symptoms Please call us for any problems with Medications or blood sugars [phone] Blood Pressure Goal is <130/80, Yours is: BP 130/84 (BP Cuff Location: Right arm, Patient Position: Sitting, BP Cuff Sizes: Adult, regular) Pulse 82 Wt 87.2 kg (192 lb 4.8 oz) BMI 33.24 kg/m2 Cholesterol goal for LDL (bad cholesterol) [...] diet balanced in Calories, Protein, and carbohydrates Sheet Metal Assembler needed: Exercise: Please try to exercise for at [...] Not at this time See you back: 4-6 weeks Please follow this Diabetes Treatment Plan and call the Diabetes Center at [phone] for questions or concerns about your blood sugars TIPS ON INJECTING INSULIN To inject: 1. Wipe skin with alcohol and pinch. 2. Hold the syringe like a pencil and push needle straight into skin. 3. Push the plunger down with your index finger. 4. Release pinch and remove the needle. 5. Discard your used syringe into an opaque, puncture resistant (heavy duty), non-breakable container. For example, an empty laundry detergent bottle or white milk or juice bottle. When the containeris near full, cover, tape and label bottle as ???Contaminated, household sharps. Do not recycle.?? Throw out with regular trash. Tips for injectin. Sites for Injecting Insulin Always inject into fatty tissue. The best sites are the abdomen, back of the arm, top and outside of leg and hip. Abdomen: Stay at least one inch away from the bellybutton or any scars. Include front and sides of abdomen. Arm: Inject into fatty tissue in the back of the arm between the shoulder and the elbow. Thigh: Inject at least 4 inches or approximately one hand width above the knee and at least 4 inches down from the top of the leg. The best area is on the top and outer area of the thigh. Hip: Inject into the hip or ???wallet area?? , not into the lower buttock area. 2. To be sure that your insulin is absorbed properly, change (or rotate) the sites where you inject insulin. If you use the same place over and over, the skin will get tough or lumpy and your insulin will not be absorbed well. 3. Create a rotation plan. Two options to consider when determining your rotation pattern are as follows: a) Pick a site, such as the abdomen, and inject there for one month. Then move to a new site. b) Choose a site for each injection time and move around in the area with each shot. For example, use the same site for all the morning injections, another site for lunch injections and another for your evening injection. ` Hypoglycemia (Low Blood Sugar) What is it? [...] It raises blood sugar about 30-50 points. 3. Wait for 15 minutes for the sugar to be absorbed. 4. Check blood sugar again. If you are still low, repeat step 2 and 3. 5. Some people who take Regular or NPH insulin may need to follow up with a snack [...] Refills Start Date End Da te insulin glargine (LANTUS SOLOSTAR) 100 unit/mL (3 mL) injection penIndications:Type 2 diabetes mellitus with hyperglycemia, with long-term current use of insulin ([facility]) Inject 28 Units into the skin once daily. 1 Box 3 09/12/2016 10/16/2021 dulaglutide 0.75 mg/0.5 mL pen injectorIndications:Type 2 diabetes mellitus with hyperglycemia, with long-term current use of insulin ([facility]) Inject 0.75 mg into the skin every 7 days. 4 Syringe 11 09/12/2016 09/19/2016 insulin pen needles 31G x 5/16Indications:Type 2 diabetes mellitus with hyperglycemia, with long-term current use of insulin ([facility]) Use 2 pen needles as directed daily. 100 Each 7 09/12/2016 09/12/2017 documented in this encounter Progress Notes * Ayala Marrero - 09/12/2016 1620 EDT Fingerstick blood sample obtained for POCT Hemoglobin A1C performed for this DOS at the order of Greta Galicia NP * Greta Galicia NP - 09/12/2016 1620 EDT Subjective: Patient ID: Emma Min is an 36 y.o. female. No chief complaint on file. HPI This is a 36 y.o. yr old female arrives today as a follow-up visit for treatment of Type 2 Diabetes. Diabetes diagnosed 2004. Initially from [place] moved back to [facility] from [facility]. Due to marital problems, now . Raising 2 daughters. Pertinent Past Medical History: Insomnia feels it is due to stressors in her life. Diabetes Complications and Symptoms: Recent eye spencer't denies retinopathy last eye appointment. Nocturia x1. Notes polydipsia/uria with high blood sugars. Occ numbness in feet. General health and social issues since last visit: Stable Contributory visits to PCP and or other subspecialties: Has established a PCP in [place] Changes in other pertinent medications: No. Occupation, Social issues, living situation: Patient has a job at [employer] in the Em[employer] department. She has 2 pre-teenage daughters. Not currently sexually active. Denies gestational diabetes. MGF had DM. Pertinent Family History: Maternal grandfather had diabetes. Current diabetes medications include: 70/30 takes 26 un twice daily. Finger stick monitoring: Keeps a diary: No. Brought Glucometer: Yes can not down load reviewed recall. Takes finger sticks: Sporadically Trends: 120-over 300 Highs include: 311 Lows include: Lowest recorded 111 states does not take a fingerstick when she gets sensation of low and she is so intent to treat low. Life style alterations include: Eating habits: Not following diabetic diet, trying to improve Patient's weight: Wt Readings from Last 3 Encounters: 09/12/16 87.2 kg (192 lb 4.8 oz) 05/15/16 90.3 kg (199 lb) 01/11/16 88.5 kg (195 lb) Patient exercise level is: Walks a lot at work, no other exercise Habits: Smoking: No, Alcohol: Seldom, Illicit Drugs: No. Self management: Self Care Efforts: Poor Barriers to adherence: Busy lifestyle Medic Alert: No Quick source of Glucose: No Rotates Injection Sites: No Last Eye appointment: ~ 1 year ago Dental: No Podiatry or Orthopaedics: No Lab Results Component Value Date HGBA1C 8.3 (H) 09/12/2016 Lab Results Component Value Date CHOL 234 [...] Social History Social History ??? Marital status: Single Spouse name: N/A ??? Number of children: [...] to Visit Medication Sig Dispense Refill ??? augmented betamethasone dipropionate (DIPROLENE-AF) 0.05 % ointment Apply topically to affectedarea 2 times daily. 45 g 3 ??? busPIRone (BUSPAR) 15 mg tablet Take 15 mg by mouth 2 times daily. ??? colesevelam (WELCHOL) 625 mg tablet Take 1 Tab by mouth 2 times daily with breakfast and dinner. 180 Tab 3 ??? Urea 40 % cream Apply topically to affected area 2 times daily. If expensive- buy off amazon 40g 3 No current facility-administered medications on file prior to visit. Allergies Allergen Reactions ??? Seroquel [Quetiapine] Anaphylaxis All anti depressant medications ??? Lactose Diarrhea ??? Latex, Natural Rubber Swelling and Rash labs done at [facility] 07/2014 creatinine 0.71, GFR greater than 60, potassium 4.2,total cholesterol 214, HDL 42, LDL 149, triglycerides 111, ratio 5.09, all other electrolytes as well as liver function tests within normal limits. ROS - See HPI Objective: BP 130/84 (BP Cuff Location: Right arm, Patient Position: Sitting, BP Cuff Sizes: Adult, regular) Pulse 82 Wt 87.2 kg (192 lb 4.8 oz) BMI 33.24 kg/m2 Spot fingerstick today was 213 Physical Exam A1C today: 8.3 compared to 7.4 Weight and changes: See above. Blood Pressure is: At goal. Lipids: See above. General Impression and Affect: Mildly Obese young woman. Eyes: EOMs intact Neck: No nodes or thyromegaly Feet and Extremities including Neuro: Foot exam was deferred for today, at last appointment was: Shoes: Has on supportive shoes General Impression: At some risk for breakdown on right heal Skin and Nails: Right heal, irritated area with sloughing outer layer of skin, with vesicles and mild excoriation Swelling: No Deformities: No Pulses: Palpable Sensation Monofilament intact in all areas, Vibratory sense intact at great toes, DTRs 2+. Discussion and Recommendation: At last appointment was having concerns about lows with 70/30 insulin. She continues to have episodic lows. She states she holds her insulin often and may be takes it every third day. Was wondering if there is some other regimen that may help her. Patient cannot tolerate metformin due to GI issues. Recommended stopping 70/30 insulin. Take once daily basal insulin. Can try her on a low dose once weekly GL P1 analog. Reviewed effects as well as side effects and adverse reactions of this class of medications. Focused on GI upset and parameters for continuing versusstopping the medication. Restart fingersticks twice daily and when necessary. States she never takes her fingersticks when she has sensations of hypoglycemia. Encouraged her to do so to see how low her blood sugars are going. States she does get some bruising in her abdomen with injections. Reviewed rotation of sites. Has mini needles Bruising may improve with a longer needle can try that. Reviewed treatment of hypoglycemia. States she is hoping to being moving to [place] within the next few months depending on a jobopportunity there. I spent a total of 25 minutes in face to face time with this patient today and 20 minutes of that time was spent counseling the patient on the risks and treatment options for diabetes. Assessment: 36 y.o. Woman diagnosed with H/O T2 Diabetes, in 2004. For a while patient was doing well on twice daily split mix insulin. Recently she has been experiencing more problems with hypoglycemia. She hasbeen taking her insulin a couple of times a week. A1c has gone up. Needs to start taking fingersticks twice daily. Plan to try once day basal insulin along with once weekly GL P1 analog at low dose. Check for tolerance of this medication. She will follow up in 6 weeks. Communicate with us in between visits to adjust medications and to review blood sugars. Plan: Your Hemoglobin A1C is: 8.3 With average blood sugar of: 194 It is worse from last visit Your Goal at this time: try new insulin as well as Trulicity Blood sugar goals are: 80-130 in AM, 90-160 prior to other meals. Check Blood Sugar: Other: Twice daily in AM and before leaving for work . Recommend Diabetes Medic Alert Tag Especially if you take insulin Carry a source of glucose with you at all times, especially if you are on Insulin or oral medications Keep a diary of Blood sugars and Always Bring your Glucometer to clinic Medications for Diabetes: Stop 70/30 Begin Lantus 28 units daily If having consistent low sugars can decrease Lantus to 22 units Trulicity start at low dose .75mg weekly Watch for GI Symptoms Please call us for any problems with Medications or blood sugars [phone] Blood Pressure Goal is <130/80, Yours is: BP 130/84 (BP Cuff Location: Right arm, Patient Position: Sitting, BP Cuff Sizes: Adult, regular) Pulse 82 Wt 87.2 kg (192 lb 4.8 oz) BMI 33.24 kg/m2 Cholesterol goal for LDL (bad cholesterol) [...] diet balanced in Calories, Protein, and carbohydrates Sheet Metal Assembler needed: Exercise: Please try to exercise for at [...] Not at this time See you back: 4-6 weeks Please follow this Diabetes Treatment Plan and call the Diabetes Center at [phone] for questions or concerns about your blood sugars TIPS ON INJECTING INSULIN To inject: 1. Wipe skin with alcohol and pinch. 2. Hold the syringe like a pencil and push needle straight into skin. 3. Push the plunger down with your index finger. 4. Release pinch and remove the needle. 5. Discard your used syringe into an opaque, puncture resistant (heavy duty), non-breakable container. For example, an empty laundry detergent bottle or white milk or juice bottle. When the containeris near full, cover, tape and label bottle as ???Contaminated, household sharps. Do not recycle.?? Throw out with regular trash. Tips for injectin. Sites for Injecting Insulin Always inject into fatty tissue. The best sites are the abdomen, back of the arm, top and outside of leg and hip. Abdomen: Stay at least one inch away from the bellybutton or any scars. Include front and sides of abdomen. Arm: Inject into fatty tissue in the back of the arm between the shoulder and the elbow. Thigh: Inject at least 4 inches or approximately one hand width above the knee and at least 4 inches down from the top of the leg. The best area is on the top and outer area of the thigh. Hip: Inject into the hip or ???wallet area?? , not into the lower buttock area. 2. To be sure that your insulin is absorbed properly, change (or rotate) the sites where you inject insulin. If you use the same place over and over, the skin will get tough or lumpy and your insulin will not be absorbed well. 3. Create a rotation plan. Two options to consider when determining your rotation pattern are as follows: a) Pick a site, such as the abdomen, and inject there for one month. Then move to a new site. b) Choose a site for each injection time and move around in the area with each shot. For example, use the same site for all the morning injections, another site for lunch injections and another for your evening injection. ` Hypoglycemia (Low Blood Sugar) What is it? [...] It raises blood sugar about 30-50 points. 3. Wait for 15 minutes for the sugar to be absorbed. 4. Check blood sugar again. If you are still low, repeat step 2 and 3. 5. Some people who take Regular or NPH insulin may need to follow up with a snack [...] blood stream. You will stay low longer. Diagnoses and all orders for this visit: Type 2 diabetes mellitus with hyperglycemia, with long-term current use of insulin - POCT Hemoglobin A1C - insulin pen needles 31G x 5/16; Use 2 pen needles as directed daily. - POCT Hemoglobin A1C; Future - dulaglutide 0.75 mg/0.5 mL pen injector; Inject 0.75 mg into the skin every 7 days. - insulin glargine (LANTUS SOLOSTAR) 100 unit/mL (3 mL) injection pen; Inject 28 Units into the skin once daily. documented in this encounter Plan of Treatment Not on file documented as of this encounter Procedures Procedure Name Priority Date/Time Associated Diagnosis Comments POCT HEMOGLOBIN A1C, INTERFACED Routine 09/12/2016 16:57 EDT Type 2 diabetes mellitus with hyperglycemia, with long-term current use of insulin ([facility]) documented in this encounter Results * (ABNORMAL) POCT HEMOGLOBIN A1C (09/12/2016 16:57 EDT) Hemoglobin A1C, POC Interfaced 8.3(H) <5.7 % 09/12/2016 17:08 EDT [facility] barn worker ID [id number] 09/12/2016 17:08 T [facility] Comment:Test performed at En docrinology Blood specimen (specimen) BLOOD SPECIMEN / Unknown 09/12/2016 16:57 EDT 09/12/2016 17:08 EDT Greta Galicia CHAIN MACHINE OPERATOR POINT OF CARE TEST ORDERABLES [facility] [address] [place] [address] documented in this encounter Visit Diagnoses Diagnosis Type 2 diabetes mellitus with hyperglycemia, with long-term current use of insulin ([facility] Primary documented in this encounter Discontinued Medications Medication Sig Discontinue Reason Start Date End Da te insulin aspart protamine-insulin aspart (NOVOLOG FLEXPEN 70/30) 100 unit/mL (70-30) injectable penIndications:Type 2 diabetes mellitus with hyperglycemia ([facility]) Inject 26 Units into the skin BEFORE BREAKFAST & DINNER. 08/10/2015 09/12/2016 documented as of this encounter Care Teams Optical Sales Associate Relationship Specialty Start Date End Date Yehuda Stallworth DO [address] [place] [address] PCP - General 05/15/16 10/15/21 Terry Hall MD [address] [place] [id number] 07/02/14 documented as of this encounter
--- OUTSIDE RECORDS SUMMARY | 2024-01-03 01:10 | XMS_ITS | Encounter Summary ---
Author Organization [facility] Address [address] [place] [address] Care Team Providers Care Farm Implement Mechanic Name Role Phone Unavailable Primary Care Provider Unavailabl e Encounter Details Date Type Department Care Team ([facility] st Contact Info) Description 04/06/2005 7:59 EST Hospital Encounter [address] [address] Mago Ravi MD [address] [place] [address], [address] [place] [phone] Social History Tobacco Use Types Packs/Day Years [...] Procedure Name Priority Date/Time Associated Diagnosis Comments GLUCOSE TOLERANCE, 3HR GESTATIONAL Routine 04/06/2005 7:58 EST documented in this encounter Results * (ABNORMAL) GLUCOSE TOLERANCE, 3HR GESTATIONAL (04/06/2005 7:58 EST) Glucose Enzo, Fasting 83 50 - 95 mg/dl [facility] Comment: Results may be affected due to hemolysis. Slight hemolysis Glucose Enzo, 1 hr 190(H) 50 - 180 mg/dl [facility] Comment: Results may be affected due to hemolysis. Slight hemolysis Glucose Enzo, 2hr 155 50 - 155 mg/dl [facility] Comment: Results may be affected due to hemolysis. Slight hemolysis Gest Gluc Enzo, 3hr 118 50 - 140 mg/dl [facility] Comment: The diagnosis of diabetes is made if two or more of the glucose values exceed the reference range listed. Glucose Dose 100 g [facility] 04/06/2005 7:58 EST 04/06/2005 11:15 EST Mago Ravi MD PACKAGES & DNA PROBE ORDERABLES [facility] [address] [place] [address] documented in this encounter Visit Diagnoses Not on filedocumented in this encounter
--- OUTSIDE RECORDS SUMMARY | 2024-01-03 01:10 | XMS_ITS | Encounter Summary ---
Author Organization [facility] Address [address] [place] [address] Care Team Providers Care Machine Strap Buckler Name Role Phone Unavailable Primary Care Provider Unavailabl e Encounter Details Date Type Department Care Team (Late st Contact Info) Description 06/22/2005 9:26 EST - 06/24/2005 11:[address] [facility] Mother/Baby Unit [address] [place] [address] Mago Ravi MD [address] [facility] [address] [place] [address] Discharge Disposition: Home-Health Care Svc Social History Tobacco Use Types Packs/Day Years Used Date Smoking Tobacco: Never Assessed Sex and Gender Information Value Date Recorded Sex Assigned at Female 01/29/2022 18:29 EDT Gender Identity Female 05/30/2019 9:03 EST Sexual Orientation Choose not to disclose 2023 15:46 EST documented as of this encounter Discharge Disposition Disposition Code Departure Means Destination Home-Health Care Svc documented in this encounter Plan of Treatment Not on file documented as of this encounter Procedures Procedure Name Priority Date/Time Associated Diagnosis Comments COMPLETE BLOOD COUNT AND DIFFERENTIAL Routine 06/22/2005 13:55 EST documented in this encounter Results * (ABNORMAL) HEMAGRAM AND DIFFERENTIAL (06/22/2005 13:55 EST) WBC 7.42 4.0 - 12.4 K/cmm [facility] RBC 3.52(L) 3.86 - 5.04 M/cmm [facility] Hemoglobin 12.1 11.6 - 15.2 gm/dl [facility] HCT 34.6(L) 34.9 - 44.4 % [facility] MCV 98 81 - 98 fl [facility] MCH 34.4(H) 26.7 - 33.3 pg [facility] MCHC 35.0 32.1 - 35.9 gm/dl [facility] PLT 234 141 - 320 K/cmm [facility] RDW-CV 14.1 11.7 - 14.6 % [facility] % Neutrophils 76.2 45.5 - 79.7 % [facility] % Lymphocytes 17.8 15.0 - 46.8 % [facility] % Monocytes 5.2 1.8 - 12.0 % [facility] % Eosinophils 0.4(L) 0.6 - 6.9 % [facility] % Basophils 0.4 0.2 - 1.4 % [facility] ABS Neutrophils 5.65 2.20 - 8.85 K/cmm [facility] ABS Lymphs 1.32 1.09 - 3.30 K/cmm [facility] ABS Monocytes 0.39 0.1 - 0.8 K/cmm [facility] ABS Eosinophils 0.03 0.03 - 0.61 K/cmm [facility] ABS Basophils 0.03 0.01 - 0.11 K/cmm [facility] Type of Diff: Automated [facility] 06/22/2005 13:5 5 EST 06/22/2005 16:15 EST Mago Ravi MD PACKAGES & DNA PROBE ORDERABLES [facility] [address] [place] [address] documented in this encounter Visit Diagnoses Not on filedocumented in this encounter
--- OUTSIDE RECORDS SUMMARY | 2024-01-03 01:10 | XMS_ITS | Encounter Summary ---
Author Organization [facility] Address [address] [place] [address] Care Team Providers Care Hand Leather Trimmer Name Role Phone Unavailable Primary Care Provider Unavailabl e Encounter Details Date Type Department Care Team ([facility] st Contact Info) Description 02/26/2005 Office Visit [facility] [address] [place] [address] Crys Quintero MD Social History Tobacco Use Types Packs/Day Years Used Date Smoking Tobacco: Never Assessed Sex and Gender Information Value Date Recorded Sex Assigned at Female 01/29/2022 18:29 EDT Gender Identity Female 05/30/2019 9:03 EST Sexual Orientation Choose not to disclose 2023 15:46 EST documented as of this encounter Progress Notes * Crys Quintero - 06/21/2009 1911 EST Department - Physician Summary Registration Date/Time: 02/26/2005 12:37 Time Seen: 13:25 Arrived- By private vehicle. Historian- patient. HISTORY OF PRESENT ILLNESS Chief Complaint: HEADACHE. This started about 8:00 AM today Is stillpresent. It is described as diffuse. Located in the right hemicranial, frontal and left hemicranial region. No neck pain. At its maximum, severity described as moderate. Modifying factors: worsened by bright light, noise and general movement; relieved by quiet room and dark room. There were preceding symptoms (numbness- R arm, jaw, nose). The patient has had photophobia and tunnel vision She has had nausea. She has had vomiting(and retching once this AM). No blurred vision. (Pt also reports tinnitus and memory difficulties.). Patient has not had similar symptoms previously. REVIEW OF SYSTEMS The patient hashad a cough (x 3 wks). She has had diarrhea (x 3 wks). She has had mild difficulty breathing (today). No fever, muscle aches, ear pain, sore throat or head injury. No chest pain, abdominal pain, pain with urination, skin rash or enlarged lymph nodes. No back pain. PAST HISTORY Hypertension (pre-eclampsia during 1st ). Mild sinus problems (recently ). No history of chronic headaches. No history of head injuryor diabetes mellitus. Has not had glaucoma. No history ofseizures. Medications: Calcium Supplement : daily. Lexapro: 20mg daily. Vitamin. Takes daily. Allergies: No known drug allergies. SOCIAL HISTORY Smoker (3 cigs/day during , 8-yr smoking history). No alcohol or drug use. FAMILY HISTORY History of migraine headaches (mother, sister). ADDITIONAL NOTES The nursing notes have been reviewed. PHYSICAL EXAM Appearance: Alert (lying still). The patient appears uncomfortable. Vital Signs: The vital signs have been reviewed. Eyes: Moderate photophobia present. Pupils equal, round and reactive to light. EOMs intact. ENT: Ears normal. Nose normal. Pharynx normal. Neck: Neck supple. No lymphadenopathy. CVS: Normal heart rate and rhythm. Heart sounds normal. Pulses normal. Respiratory: No respiratory distress. Breath sounds normal. Abdomen: Abdomen soft and nontender. No organomegaly. Back: Normal inspection. Skin: Normal skin color. Skin warm and dry. No rash. Extremities: Mildright-sided and left-sided pedal edema. Neuro: Oriented X 3. Speech normal. Finger-nose test abnormal (slowed). No motor deficit. Reflex exam: right biceps 2+, left biceps 2+, right brachioradialis 2+ and left brachioradialis 2+. LABS, X-RAYS, AND EKG Urinalysis: Normal except as noted (dipstick). Urine dipstick positive for ketones (weakly positive). PROGRESS AND PROCEDURES E.D. Course: 14:57. Symptoms better. IV started. IV fluids given (NS) 500 mL bolus given Phenergan given (12.5 mg IV). Pain free at discharge. Disposition: Discharged home in good condition. CLINICAL IMPRESSION Acute headache. . INSTRUCTIONS Continue current medications. Warnings: GENERAL WARNINGS: Return or contact your physician immediately if your condition worsens or changesunexpectedly, if not improving as expected, or if other problems arise. OTC Medications: Acetaminophen (available over the counter): take according to label instructions. Follow-up: Follow up with your doctor tomorrow. (Electronically signed by Crys Quintero M.D. 02/26/2005 16:47) Department - Nursing Summary Registration Date/Time: 02/26/2005 12:37 TRIAGE Initial Assessment Triage time 12:38 Acuity: LEVEL 3. BP: 120 / 69 HR: 85 RR: 20 Temp: 36.2 tympanic O2 saturation: 100% room air Alert. --1242 Camelia Pina R.N. Medications (lexapro, vits, amoxicillin-about 4 days). --1242 Camelia Pina R.N. Allergies No known drug allergies. --1242 Camelia Pina R.N. History Chief Complaint: (Pt states that she started with some R arm numbness, then progressed to Pimentel, vomited, photophobia with tunnel vision. Pt took amoxicillin for a sinus infection. Pt is 6 months . 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 This started today. Pain level now: 8/10. PAST HX: (G2,P1, depression, hx of syncopal episodes without diagnosis). SOCIAL HX: Smoker: less than 1 pack per day. Denies alcohol use. Arrived by private vehicle and accompanied by family. Historian: patient. --1242 Camelia Pina R.N. PHYSICAL ASSESSMENT Alert. Appears in no acute distress. Oriented X 3. Skin is warm and dry. --1420 Ara Payne R.N. NURSING PROGRESS NOTES Progress BP: 110 / 56 lying R arm auto (reg adult cuff). HR: 78 RR: 12 O2 saturation: 99% room air --1414 Abe Hoyos E.M.T. IV started: one attempt. --1421 Ara Payne R.N. PROMETHAZINE 12.5 mg diluted with IV fluid slow IVP. --1439 Ara Payne R.N. urine dip Sg<=1.005, Ph 6.5, 2+ ketones all else WNL Urine test positive. --1603 Paco Guzman R.N. IV / I&O Flowsheet IV site #1: location left hand. Started: 22g angiocath. --1421 Ara Payne R.N. IV start unsuccessful: one attempt. --1425 Abe Hoyos E.M.T. IV fluid started- #1 bag NS. IV fluid started (500 mL bolus). Rate - wide open. --1426 Abe HoyosE.M.T. (500 mL bolus complete. Rate changed to 100 mL/hour per Nurse Glore.). --1531 Abe Hoyos E.M.T. IV site discontinued: IV catheter intact, dressing applied. --160 Paco Guzman R.N. correction to prior entry -disreguard above entry wrong pt --1606 Paco Guzman R.N. IV site discontinued: IV catheter intact, dressing applied. --162 Paco Guzman R.N. DISPOSITION / DISCHARGE Patient reports pain level on departure as 0/10. Condition at departure: improved. Fall risk assessment completed. No fall risk identified. No barriers to learning present. Discharge instructions reviewed with the patient and spouse. Reviewed referrals for followup (PMD). Patient and spouse verbalized understanding. The patient was discharged home and accompanied by spouse. The patient left the Emergency Department ambulatory and via private vehicle. Spouse driving. --162 Trena Campbell R.N. E.MJovannyTJovanny Guzman R.N. Locked/Released at 02/26/2005 17:48 by Paco Guzman R.N. documented in this encounter Plan of Treatment Not on file documented as of this encounter Visit Diagnoses Not on filedocumented in this encounter
--- OUTSIDE RECORDS SUMMARY | 2024-01-03 01:10 | XMS_ITS | Encounter Summary ---
Author Organization [facility] Address [address] [place] [address] Care Team Providers Care Ornamental Metal Worker Apprentice Name Role Phone Terry Hall MD Primary Care Provider [phone] Terry Hall MD Unavailable Encounter Details Date Type Department Care Team (Late st Contact Info) Description 08/01/2015 Orders Only [facility] Endocrinology - [facility] [address] [place] [address] Greta Galicia NP [address] [facility] [address] [place] [address] Social History Tobacco Use Types Packs/Day Years [...] No 12/01/2014 documented as of this encounter Plan of Treatment Not on file documented as of this encounter Visit Diagnoses Not on filedocumented in this encounter Care Teams Ornamental Metal Worker Apprentice Relationship Specialty Start Date End Date Terry Hall MD PCP - General 07/02/14 10/16/15 Terry Hall MD [address] [place] [id number] 07/02/14 documented as of this encounter
--- OUTSIDE RECORDS SUMMARY | 2024-01-03 01:10 | XMS_ITS | Encounter Summary ---
Author Organization [facility] Address [address] [place] [address] Care Team Providers Care Information Security Specialist Name Role Phone Unavailable Primary Care Provider Unavailabl e Encounter Details Date Type Department Care Team (Latest Contact Info) Description 02/26/2005 12:45 EST Hospital Encounter [facility] Emergency Department - [facility] [address] [place], [place] [id number] Emergency, Default, MD Discharge Disposition: Home or [...]
--- OUTSIDE RECORDS SUMMARY | 2024-01-03 01:10 | XMS_ITS | Encounter Summary ---
Author Organization [facility] Address [address] [place] [address] Care Team Providers Care Sdv Pilot/Navigator/Dds Operator Name Role Phone Terry Hall MD Unavailable Yehuda Stallworth DO Primary Care Provider Reason for Visit * Reason Comments New Patient Visit FBSE; Rash on both h eels and fingers * Consult (Routine/Next Available) - Closed Specialty Diagnoses / Procedures Referred By [facility] Referred To Contact Dermatology Diagnoses Type 2 diabetes mellitus without complication, with long-term current use of insulin ([facility]) Dermatitis Greta Galicia, MIGUEL [address] [address] [facility] [address] Dermatology [address] [place] [phone] Referral ID Status Reason Start Date Expiration Date V isits Requested Visits Authorized [id number] Closed Specialty Services Required 05/15/2016 1 1 Encounter Details Date Type Department Care Team (Late st Contact Info) Description 05/23/2016 14:40 EST Office Visit [facility] Dermatology 5th [address] [id number] Shannan Whelan MD [address] [place] [address], [address] [place] [address] Dermatitis (Primary Dx) Social History Tobacco Use Types [...] this encounter Patient Instructions * Patient Instructions* Duane Louis MD - 05/23/2016 14:40 EST Buy 40% urea cream. Apply while still moist after the shower or after soaking your heels. Then slather on the urea. If severe also add the topical steroid documented in this encounter Ordered Prescriptions Prescription Sig Dispensed Refills Start Date End Da te clobetasol (TEMOVATE) 0.05 % ointment Mix with the urea at night for your feet for redness. 60 g 2 05/23/2016 05/27/2016 Urea 40 % cream Apply topically to affected area 2 times daily. If expensive- buy off amazon 40 g 3 05/23/2016 10/16/2021 documented in this encounter Progress Notes * Zafar Faustin - 05/23/2016 1440 EST Review of Systems Constitutional: Positive for fatigue. Negative for fever and unexpected weight change. HENT: Negative for mouth sores. Eyes: Negative for pain. Respiratory: Negative for cough and shortness of breath. Cardiovascular: Negative for chest pain and palpitations. Gastrointestinal: Positive for abdominal pain, diarrhea and nausea. Negative for blood in stool, constipation and vomiting. Genitourinary: Positive for dysuria and frequency. Negative for hematuria. Musculoskeletal: Negative for myalgias, joint swelling, arthralgias and muscle stiffness in the morning. Skin: Positive for rash. Neurological: Negative for numbness and headaches. Endo/Heme/Allergies: Does not bruise/bleed easily. Psychiatric/Behavioral: Positive for sleep disturbance. The patient is nervous/anxious. Zafar Faustin 05/23/2016 14:50 * Duane Louis MD - 05/23/2016 2170 EST Dermatology Outpatient Visit Note Chief Complaint Patient presents with ??? New Patient Visit FBSE; Rash on both heels and fingers SUBJECTIVE Ms. Min is a 36 y.o. diabetic female who presents for a new visit for cracked and itchy feet and hands. Her hands are well controlled with thick eucerin moisturizer. She applied lamisil ointment to her feet for several months without any improvement. She has a history of eczema and sensitive skin as a child. She showers daily and sometimes scrubs her feet. The patient has no other concerns today on exam. See documentation in [facility] for medical, surgical, social and family history, and the review of systems which I reviewed at this visit. She has a current medication list which includes the following prescription(s): buspirone, colesevelam, and insulin aspart protamine-insulin aspart. She is allergic to seroquel [quetiapine]; lactose; and latex, natural rubber. Objective Ms. Min is healthy female that is alert and oriented to person, place and time. She has Vazquez type I skin. Cutaneous exam was performed today of the scalp, face, neck, upper extremities, hands, trunk, lower extremities, feet. The remainder of the skin examination was otherwise normal except for: 1. On the right plantar foot along the heel, midfoot and lateral aspect of the foot there is a welldefined lichenified and eczematous plaque. There is a lichenified plaque on the dorsal foot/ankle. 2. There is xerosis and scaling of the palmar hand 3. There are no lesions concerning for malignancy CHARBEL scraping of the foot was negative for fungal elements. Assessment/Plan: 1.Hand and foot dermatitis, in the setting of diabetes. CHARBEL negative for fungal elements ?? Start 40% urea cream once daily at night. Explained soak and smear technique to the patient. ?? Mix the urea with the clobetasol 0.05% ointment as needed as well which will help with dermatitis and erythema Advised the patient on good moisture habits, discouraged over bathing. Encouraged mild soap use with dove, limited to axillae and groin. Advised the patient to shower every other day or less if tolerable to decrease drying out the skin. As soon as stepping out of the shower I advised to apply a thick moisturizing cream or ointment immediately, before patting dry. Re-apply frequently. Preferably fragrance free brands from aveeno, Vaseline, Cetaphil. Not lotions. Follow up: KARLEY Louis MD 05/23/2016 14:50 Attestation Statement: I saw and examined the patient with the resident/fellow. I agree with the findings and plan of care documented in the resident's/fellow's note. Shannan Whelan MD Dermatology [facility] documented in this encounter Plan of Treatment Not on file documented as of this encounter Visit Diagnoses Diagnosis Dermatitis- Primary Contact dermatitis and other eczema, due to unspecified cause documented in this encounter Historical Medications * This list may reflect changes made after this encounter. Medication Sig Dispensed Refills Start Date End Date busPIRone (BUSPAR) 15 mg tablet Take 15 mg by mouth 2 times daily. 10/16/2021 added in this encounter Care Teams Sdv Pilot/Navigator/Dds Operator Relationship Specialty Start Date End Date Yehuda Stalwlorth DO [address] [place] [phone] PCP - General 05/15/16 10/15/21 Terry Hall MD [address] [place] [id number] 07/02/14 documented as of this encounter
--- OUTSIDE RECORDS SUMMARY | 2024-01-03 01:10 | XMS_ITS | Encounter Summary ---
Author Organization [facility] Address [address] [place] [address] Care Team Providers Care Warehouse Insulation Worker Name Role Phone Terry Hall MD Unavailable Unknown, Provider Primary Care Provider [phone] Reason for Referral * Consult (Routine/Next Available) - Closed Specialty Diagnoses / Procedures Referred By Contac t Referred To Contact Dermatology Diagnoses Type 2 diabetes mellitus with hyperglycemia (HCC-CMS) Dermatitis of right foot Greta Galicia NP [address] [facility] [address] [place] [phone] [facility] Dermatology [address] [place] [address] Referral ID Status Reason Start Date Expiration Date V isits Requested Visits Authorized [id number] Closed Specialty Services Required 01/11/2016 1 1 Question Answer Reason for Request: t2 diabetes, itchy painful rash, dermatitis on right heal Reason for Visit * Reason Comments Diabetes Encounter Details Date Type Department Care Team (Latest Contact Info) Description 01/11/2016 15:40 EDT Office Visit [facility] Endocrinology - [facility] [address] [place] [address] Greta Galicia NP [address] [facility] [address] [place] [address] Mixed hyperlipidemia (Primary Dx); Type 2 diabetes mellitus with hyperglycemia (CMS-HCC) (HCC-CMS); Dermatitis of right foot Social History Tobacco Use Types Packs/Day Years [...] Sign Reading Time Taken Comments Blood Pressure 106/55 01/11/2016 1548 EDT Pulse 87 01/11/2016 1548 EDT Temperature - - Respiratory Rate - - Oxygen Saturation - - Inhaled Oxygen Concentration - - Weight 88.5 kg (195 lb) 01/11/2016 1548 EDT Height 162.6 cm (5' 4.02) 01/11/2016 1548 EDT Body Mass Index 33.45 01/11/2016 1548 EDT documented in this encounter Functional Status [...] No 08/10/2015 documented as of this encounter Patient Instructions * Patient Instructions* Greta Galicia NP - 01/11/2016 16:02 EDT Your Hemoglobin A1C is: 8.1 With average blood sugar of: 184 It is better from last visit Your Goal at this time: Keep working on it Blood sugar goals are: 80-130 in AM, [...] Glucometer to clinic Medications for Diabetes: 70/30 novolog 25 units breakfast and supper If take AM insulin late take only 14 units at supper Blood Pressure Goal is <130/80, Yours is: Visit Vitals ??? BP 106/55 (BP Cuff Location: Right arm, Patient Position: Sitting, BP Cuff Sizes: Adult, large) ??? Pulse 87 ??? Ht 162.6 cm (64.02) ??? Wt 88.5 kg (195 lb) ??? BMI 33.45 kg/m2 Cholesterol goal for LDL (bad cholesterol) is For those with Diabetes <100, for those with Diabetes and Heart Disease, 70 or less. Yours is: Try welchol see if you tolerate it take with breakfast and supper Lab Results Component Value Date CHOL 234 08/10/2015 HDL 49 08/10/2015 LDLBASE 143 08/10/2015 TRIG 209 08/10/2015 CHOLHDL 4.8 08/10/2015 If you are able to, recommend taking an aspirin a day Diet: Please work on a diet balanced in Calories, Protein, and carbohydrates Boiler Coverer Helper needed: Declined Exercise: Please try to exercise for at least 30 minutes, at least 3 times a week if you are able to tolerate exercise. Eye Appointment: Yearly Dilated eye exam Recommend Dentist visit twice yearly Foot Care: Protect your feet by wearing supportive shoes that do not rub or chafe your feet. Never go bare foot. Wash, inspect, and apply non-perfumed skin cream to feet each night before bed. Fasting Labs Due: Not at this time See you back: 4-5 months Please follow this Diabetes Treatment Plan and call the Diabetes Center at [phone] for questions or concerns about your blood sugars ` Hypoglycemia (Low Blood Sugar) What is [...] medication: too much insulin or diabetes medication or taking insulin at wrong time Alcohol: drinking on an empty stomach How [...] of carbohydrate It raises blood sugar about 30- points. 3. Wait for 15 minutes for [...] Dispensed Refills Start Date End Da te colesevelam (WELCHOL) 625 mg tabletIndications:Type 2 diabetes mellitus with hyperglycemia (HCC-CMS),Mixed hyperlipidemia Take 1 Tab by mouth 2 times daily with breakfast and dinner. 180 Tab 3 01/11/2016 10/16/2021 pravastatin (PRAVACHOL) 10 mg tabletIndications:Type 2 diabetes mellitus with hyperglycemia (HCC-CMS),Mixed hyperlipidemia Take 1 Tab by mouth daily. 90 Tab 3 01/11/2016 01/11/2016 documented in this encounter Progress Notes * Greta Galicia NP - 01/12/2016 1500 EDT Subjective: Patient ID: Emma Min is an 35 y.o. female. Chief Complaint Patient presents with ??? Diabetes HPI This is a 35 y.o. yr old female arrives today as a New Patient visit for treatment of Type 2 Diabetes. Diabetes diagnosed 2004. Initially from [place] moved back to [facility] last year from [facility]. Due to marital problems, now . Raising 2 daughters. Pt working at [employer] at [employer]. Now has boyfriend. Pertinent Past Medical History: Insomnia feels it is due to stressors in her life. Diabetes Complications and Symptoms: Recent eye spencer't denies retinopathy last eye appointment. Nocturia x1. Notes polydipsia/uria with high blood sugars. Occ numbness in feet. General health and social issues since last visit: Stable Contributory visits to PCP and or other subspecialties: Has established a PCP in [place] Changes in other pertinent medications: No. Occupation, Social issues, living situation: Patient has a job at in the [employer] department. She has 2 pre-teenage daughters. Not currently sexually active. Denies gestational diabetes. MGF had DM. Pertinent Family History: Maternal grandfather had diabetes. Current diabetes medications include: 70/30 takes 25 un twice daily. Finger stick monitoring: Keeps a diary: No. Brought Glucometer: Yes can not down load reviewed recall. Takes finger sticks: 1-2 times daily skips days also Trends: 110-mid 200s Highs include: occ. 300s Lows include: None. Lowest 88 Life style alterations include: Eating habits: Not following diabetic diet Patient's weight: Wt Readings from Last 3 Encounters: 01/11/16 88.5 kg (195 lb) 10/17/15 77.1 kg (170 lb) 08/10/15 89.4 kg (197 lb 3.2 oz) Patient exercise level is: Walks a lot at work, no other exercise Habits: Smoking: No, Alcohol: Seldom, Illicit Drugs: No. Self management: Self Care Efforts: Poor Barriers to adherence: Busy lifestyle Medic Alert: No Quick source of Glucose: No Rotates Injection Sites: No Last Eye appointment: ~ 1 year ago Dental: No Podiatry or Orthopaedics: No Lab Results Component Value Date HGBA1C 8.1 (A) 01/11/2016 Lab Results Component Value Date CHOL 234 [...] to Visit Medication Sig Dispense Refill ??? insulin aspart protamine-insulin aspart (NOVOLOG FLEXPEN 70/30) 100 unit/mL (70-30) injectable pen Inject 26 Units into the skin BEFORE BREAKFAST & DINNER. [address] No current facility-administered medications on file prior to visit. Allergies Allergen Reactions ??? Seroquel [Quetiapine] Anaphylaxis All anti depressant medications ??? Lactose Diarrhea ??? Latex, Natural Rubber Swelling and Rash labs done at [facility] 07/2014 creatinine 0.71, GFR greater than 60, potassium 4.2,total cholesterol 214, HDL 42, LDL 149, triglycerides 111, ratio 5.09, all other electrolytes as well as liver function tests within normal limits. ROS - See HPI Objective: Visit Vitals ??? BP 106/55 (BP Cuff Location: Right arm, Patient Position: Sitting, BP Cuff Sizes: Adult, large) ??? Pulse 87 ??? Ht 162.6 cm (64.02) ??? Wt 88.5 kg (195 lb) ??? BMI 33.45 kg/m2 Physical Exam A1C today: 8.1 compared to 8.4 in July Weight and changes: See above. Blood Pressure is: At goal. Lipids: See above. General Impression and Affect: Obese young woman, with flattened affect arrives alone. Eyes: EOMs intact Neck: No nodes or thyromegaly Feet and Extremities including Neuro: Shoes: Has on supportive shoes General Impression: Not currently at risk for breakdown Skin and Nails: Right heal, inflamed area with sloughing outer layer of skin, with vesicles and mild excoriation Swelling: No Deformities: No Pulses: Palpable Sensation Monofilament intact in all areas, Vibratory sense intact at great toes, DTRs 2+. Discussion and Recommendation: Currently sexually active with boyfriend, went off norplant due to side effects, plans to go on OCs. Would be okay if she got . Re: HLD, stopped statin. Pravachol gives her diarrhea, is lactose intolerant. Will try Welchol. Sometimes forgets AM 70/30 unitl late AM, takes then then holds PM 70/30 as she does not want to go low. Then blood sugars up to 300. Recommend take lowered PM dose of 70/30 following late AM dose. Has itchy, tender rash on right heel, has been applying various ointments. No change. Will refer to dermatology. I spent a total of 25 minutes in face to face time with this patient today and 20 minutes of that time was spent counseling the patient on the risks and treatment options for diabetes. Assessment: 35 y.o. Woman with 11 yr H/O T2 Diabetes, insulin requiring. A1C has improved since first visit in September 2014 and slightly better since changing from Lantus and novolog to split mix twice daily insulin and Pt dosing regimen of 70/30 compared to 4 shot/day regimen. She is not consistent with taking insulin on time and can hold PM insulin if AM dose given late. Will lower evening dose if AM dose given late. Has rash on right heal, possibly tinea, refer to dermatology. If is extended time until seen by derm, try Lamisil cream to area. Is lactose intolerant, can not take statin due to diarrhea. Has HLD, will try Welchol. Plan: Your Hemoglobin A1C is: 8.1 With average blood sugar of: 184 It is better from last visit Your Goal at this time: Keep working on it Blood sugar goals are: 80-130 in AM, [...] Glucometer to clinic Medications for Diabetes: 70/30 novolog 25 units breakfast and supper If take AM insulin late take only 14 units at supper Blood Pressure Goal is <130/80, Yours is: Visit Vitals ??? BP 106/55 (BP Cuff Location: Right arm, Patient Position: Sitting, BP Cuff Sizes: Adult, large) ??? Pulse 87 ??? Ht 162.6 cm (64.02) ??? Wt 88.5 kg (195 lb) ??? BMI 33.45 kg/m2 Cholesterol goal for LDL (bad cholesterol) is For those with Diabetes <100, for those with Diabetes and Heart Disease, 70 or less. Yours is: Try welchol see if you tolerate it take with breakfast and supper Lab Results Component Value Date CHOL 234 08/10/2015 HDL 49 08/10/2015 LDLBASE 143 08/10/2015 TRIG 209 08/10/2015 CHOLHDL 4.8 08/10/2015 If you are able to, recommend taking an aspirin a day Diet: Please work on a diet balanced in Calories, Protein, and carbohydrates Boiler Coverer Helper needed: Declined Exercise: Please try to exercise for at least 30 minutes, at least 3 times a week if you are able to tolerate exercise. Eye Appointment: Yearly Dilated eye exam Recommend Dentist visit twice yearly Foot Care: Protect your feet by wearing supportive shoes that do not rub or chafe your feet. Never go bare foot. Wash, inspect, and apply non-perfumed skin cream to feet each night before bed. Fasting Labs Due: Not at this time See you back: 4-5 months Please follow this Diabetes Treatment Plan and call the Diabetes Center at [phone] for questions or concerns about your blood sugars ` Hypoglycemia (Low Blood Sugar) What is [...] medication: too much insulin or diabetes medication or taking insulin at wrong time Alcohol: drinking on an empty stomach How [...] of carbohydrate It raises blood sugar about 30- points. 3. Wait for 15 minutes for [...] 2 diabetes mellitus with hyperglycemia Orders: - POCT Hemoglobin A1c - Discontinue: pravastatin (PRAVACHOL) 10 mg tablet; Take 1 Tab by mouth daily. - colesevelam (WELCHOL) 625 mg tablet; Take 1 Tab by mouth 2 times daily with breakfast and dinner. - Amb Consult/Follow Up Dermatology Mixed hyperlipidemia Orders: - POCT Hemoglobin A1c - Discontinue: pravastatin (PRAVACHOL) 10 mg tablet; Take 1 Tab by mouth daily. - colesevelam (WELCHOL) 625 mg tablet; Take 1 Tab by mouth 2 times daily with breakfast and dinner. Dermatitis of right foot Orders: - Amb Consult/Follow Up Dermatology * Ayala Marrero - 01/11/2016 1549 EDT Fingerstick blood sample obtained for POCT Hemoglobin A1C performed for this DOS at the order of Greta Galicia NP documented in this encounter Procedure Notes * Ayala Marrero - 01/11/2016 1549 EDT Procedure: Procedures documented in this encounter Plan of Treatment Scheduled Referrals Name Type Priority Associated Diagnoses Orde r Schedule AMB CONS/FOLLOW UP DERMATOLOGY Outpatient Referral Routine Type 2 Diabetes Mellitus With Hyperglycemia (Hcc-Cms) Dermatitis Of Right Foot Ordered: 01/11/2016 documented as of this encounter Procedures Procedure Name Priority Date/Time Associated Diagnosis Comments POCT HEMOGLOBIN A1C Routine 01/11/2016 1 5:48 EDT Type 2 diabetes mellitus with hyperglycemia (CMS-HCC) (HCC-CMS) Mixed hyperlipidemia documented in this encounter Results * (ABNORMAL) POCT HEMOGLOBIN A1C (01/11/2016 15:48 EDT) Hemoglobin A1c, POC 8.1(A) 5.7 % POINT OF CARE 01/11/2016 15:4 8 EDT Greta Galicia NP POINT OF CARE TEST ORDERABLES POINT OF CARE documented in this encounter Visit Diagnoses Diagnosis Mixed hyperlipidemia- Primary Type 2 diabetes mellitus with hyperglycemia (HCC-CMS) Type II or unspecified type diabetes mellitus without mention of complication, not stated as uncontrolled Dermatitis of right foot documented in this encounter Discontinued Medications Medication Sig Discontinue Reason Start Date End Da te pravastatin (PRAVACHOL) 10 mg tabletIndications:Type 2 diabetes mellitus with hyperglycemia (HCC-CMS) Take 10 mg by mouth daily. Reorder 01/11/2016 pravastatin (PRAVACHOL) 10 mg tabletIndications:Type 2 diabetes mellitus with hyperglycemia (HCC-CMS),Mixed hyperlipidemia Take 1 Tab by mouth daily. 01/11/2016 01/11/2016 documented as of this encounter Care Teams Warehouse Insulation Worker Relationship Specialty Start Date End Date Unknown, MD [address] [place] [address] PCP - General 10/17/15 05/14/16 [place] [address] 07/02/14 documented as of this encounter
--- OUTSIDE RECORDS SUMMARY | 2024-01-03 01:10 | XMS_ITS | Encounter Summary ---
Author Organization [facility] Address [address] [place] [address] Care Team Providers Care Train Director Name Role Phone Unavailable Primary Care Provider Unavailabl e Encounter Details Date Type Department Care Team (Late st Contact Info) Description 08/03/2005 Results Only [facility] [address] [place], [place] [address] Philly Ravi MD [address] [facility], [facility] [address] [place] [address] Social History Tobacco Use Types [...] Procedure Name Priority Date/Time Associated Diagnosis Comments CYTOPATHOLOGY Routine 08/03/2005 0:00 EDT documented in this encounter Results * CYTOPATHOLOGY (08/03/2005 0:00 EDT) Pathology Report: CYTOPATHOLOGY REPORT Reports generated via electronic interface contain original data; however they are lacking the format of the original report. Caution should be taken when reading/interpreti ng unformatted reports. Name: ? HECTOREMMA ? Accession #: ? [id number] : ? 1980 (Age: 25) ??F ?Collect Date: ? 08/03/2005 Location: ? [facility] ? Receive Date: ? 08/06/2005 Provider: ?PHILLY RAVI MD Copy to: ?DOC BONNER MD ? Specimen/Source: ?ThinPrep Pap Test, Cervix/Endocervix, processed on [employer] Imaging System, with manual evaluation Last Menstrual Period: ? 09/05/04 Menstrual/Pregnanc y Status: ? Post Previous Gynecologic Pathology: ? LSIL: 07/23 ? SPECIMEN ADEQUACY ? Satisfactory for Evaluation - transformation zone component present GENERAL CATEGORIZATION ? Negative for Intraepithelial Lesion or Malignancy ? Document reviewed and electronically signed by: ? EDVIN Braswell(ASCP) ? Report Date: ??08/08/2005 09:21 End of Report DANIEL SHOEMAKER 08/03/2005 08/06/2005 Philly Ravi MD PATHOLOGY ORDERABLES DANIEL SHOEMAKER [address] [place] [address] documented in this encounter Visit Diagnoses Not on filedocumented in this encounter
--- OUTSIDE RECORDS SUMMARY | 2024-01-03 01:10 | XMS_ITS | Encounter Summary ---
Author Organization [facility] Address [address] [place] [address] Care Team Providers Care Cleaning Manager Name Role Phone Terry Hall MD Primary Care Provider [phone] Terry Hall MD Unavailable Encounter Details Date Type Department Care Team (Late st Contact Info) Description 08/01/2015 Orders Only [facility] Endocrinology - [facility] [address] [place] [address] Greta Galicia NP [address] [facility] [address] [place] [address] Social History Tobacco Use Types [...] on filedocumented in this encounter Care Teams Cleaning Manager Relationship Specialty Start Date End Date Terry Hall MD PCP - General 07/02/14 10/16/15 Terry Hall MD [address] [place] [phone] 07/02/14 documented as of this encounter
--- OUTSIDE RECORDS SUMMARY | 2024-01-03 01:10 | XMS_ITS | Encounter Summary ---
Author Organization [facility] Address [address] [place] [address] Care Team Providers Care Rail Car Repairer Name Role Phone Terry Hall MD Unavailable Yehuda Stallworth DO Primary Care Provider Reason for Visit * Reason Onset Date Comments Prior Auth, Medication 05/25/2016 Clobetaso l 0.05% Encounter Details Date Type Department Care Team (Late st Contact Info) Description 05/25/2016 Telephone [facility] Dermatology [address] [id number] Shannan Whelan MD [address] [facility], [address] [place] [address] Prior Auth, Medication (Clobetasol 0.05%) Social History Tobacco Use Types Packs/Day Years [...] Dispensed Refills Start Date End Da te augmented betamethasone dipropionate (DIPROLENE-AF) 0.05 % ointment Apply topically to affected area 2 times daily. 45 g 3 05/27/2016 10/16/2021 documented in this encounter Miscellaneous Notes * Telephone Encounter - Shannan Whelan MD - 05/27/2016 0819 EST rx prescribed for betamethasone. Clobetasol discontinued. Med Orders Placed This Visit and Additions to the Medication List Medications ??? augmented betamethasone dipropionate (DIPROLENE-AF) 0.05 % ointment Sig: Apply topically to affected area 2 times daily. Dispense: 45 g Refill: 3 Do not apply to face, axilla or groin. Shannan Whelan MD * Telephone Encounter - [place] - 05/25/2016 1255 EST Fax received requesting prior authorization for Clobetasol 0.05% documented in this encounter Plan of Treatment Not on file documented as of this encounter Visit Diagnoses Not on filedocumented in this encounter Discontinued Medications Medication Sig Discontinue Reason Start Date End Da te clobetasol (TEMOVATE) 0.05 % ointment Mix with the urea at night for your feet for redness. 05/23/2016 05/27/2016 documented as of this encounter Care Teams Rail Car Repairer Relationship Specialty Start Date End Date Yehuda Stallworth DO [address] [place] [address] PCP - General 05/15/16 10/15/21 Terry Hall MD [address] [place] [phone] 07/02/14 documented as of this encounter
--- OUTSIDE RECORDS SUMMARY | 2024-01-03 01:10 | XMS_ITS | Encounter Summary ---
Author Organization [facility] Address [address] [place] [address] Care Team Providers Care Grocery Shopper Name Role Phone Terry Hall MD Unavailable Yehuda Stallworth DO Primary Care Provider Encounter Details Date Type Department Care Team (Late st Contact Info) Description 05/22/2016 Results Only Imaging [facility] [phone] Unknown, Provider, Social History Tobacco Use Types [...] No 05/15/2016 documented as of this encounter Plan of Treatment Pending Results Name Type Priority Associated Diagnoses Date /Time OUTSIDE IMAGES - OTHER NEURO Imaging 05/22/2016 16:00 EST documented as of this encounter Visit Diagnoses Not on filedocumented in this encounter Care Teams Grocery Shopper Relationship Specialty Start Date End Date Yehuda Stallworth DO [address] [place] [phone] PCP - General 05/15/16 10/15/21 Terry Hall MD [address] [place] [phone] 07/02/14 documented as of this encounter
--- OUTSIDE RECORDS SUMMARY | 2024-01-03 01:11 | XMS_ITS | Encounter Summary ---
Author Organization [facility] Address [address] [place] [address] Care Team Providers Care Control Director Name Role Phone Unavailable Primary Care Provider Unavailabl e Encounter Details Date Type Department Care Team ([facility] st Contact Info) Description 12/11/2002 22:24 EDT Hospital Encounter [facility] - Other [address] [place] [address] Mago Ravi MD 111 [facility], [facility], [address] [place] [phone] Social History Tobacco Use Types Packs/Day Years [...]
--- OUTSIDE RECORDS SUMMARY | 2024-01-03 01:11 | XMS_ITS | Encounter Summary ---
Author Organization [facility] Address [address] [place] [address] Care Team Providers Care Human Machine Interface Engineer Name Role Phone Unavailable Primary Care Provider Unavailabl e Encounter Details Date Type Department Care Team (Late st Contact Info) Description 05/11/2003 Results Only [facility] conversion [address] [place], [place] [address] Mago Ravi MD 111 [facility], [facility] [address] [place] [address] Social History Tobacco Use Types [...] Diagnosis Comments GROUP B STREPTOCOCCUS SUSCEPTIBILITY Routine 05/11/2003 12:15 EST documented in this encounter Results * GROUP B STREPTOCOCCUS SUSCEPTIBILITY (05/11/2003 12:15 EST) Specimen Description Vaginal and Rectal [facility] Result NO GROUP B BETA STREPTOCOCCI ISOLATED [facility] Report Status Final [id number] [facility] 05/11/2003 12:1 5 EST 05/12/2003 12:15 EST Mago Ravi MD HISTORICAL LAB FOR S Q LOAD [facility] [address] [place] [address] documented in this encounter Visit Diagnoses Not on filedocumented in this encounter
--- OUTSIDE RECORDS SUMMARY | 2024-01-03 01:11 | XMS_ITS | Encounter Summary ---
Author Organization [facility] Address [address] [place] [address] Care Team Providers Care Gym Supervisor Name Role Phone Unavailable Primary Care Provider Unavailabl e Encounter Details Date Type Department Care Team ([facility] st Contact Info) Description 05/11/2003 14:10 EST Hospital Encounter [facility] - Other [address] [place] [address] Mago Ravi MD [address] [facility], [facility], [address] [place] [phone] Social History Tobacco Use Types Packs/Day Years [...] Procedure Name Priority Date/Time Associated Diagnosis Comments RAD ULTRASOUND Routine 05/25/2003 10:45 EST documented in this encounter Results * RAD ULTRASOUND (05/25/2003 10:45 EST) Anatomical Region Laterality Modality Other 05/25/2003 10:4 5 EST Narrative 12/20/2008 4:39 EDT [id number],DOPPLER,POSSIBLE IUGR Please refer to the separate [facility] report. Procedure Note Carole Newsome MD - 12/20/2008 [id number],DOPPLER,POSSIBLE IUGR Please refer to the separate [facility] report. Mago Ravi MD IMG US ORDERABLES documented in this encounter Visit Diagnoses Not on filedocumented in this encounter
--- OUTSIDE RECORDS SUMMARY | 2024-01-03 01:11 | XMS_ITS | Encounter Summary ---
Author Organization [facility] Address [address] [place] [address] Care Team Providers Care Center Maker Hand Name Role Phone Unavailable Primary Care Provider Unavailabl e Encounter Details Date Type Department Care Team (Late st Contact Info) Description 11/20/1999 7:32 EDT Hospital Encounter [facility] - Other [address] [place] [address] Matilde Wiley MD Unknown, Provider, Social History Tobacco Use Types [...] Procedure Name Priority Date/Time Associated Diagnosis Comments N.GONORRHOEAE PROBE Routine 11/27/1999 1 6:30 EDT CHLAMYDIA TRACHOMATIS PROBE Routine 11/27/1999 16:30 EDT GROUP A STREP CULTURE Routine 11/20/1999 16:15 EDT documented in this encounter Results * CHLAMYDIA TRACHOMATIS PROBE (11/27/1999 16:30 EDT) Specimen Description Cervix [facility] Result No Chlamydia trachomatis DNA detected by licensed insurance sales agent mediated amplification. [facility] Report Status Final [id number] [facility] 11/27/1999 16:3 0 EDT 11/28/1999 9:34 EDT Matilde Wiley MD HISTORICAL LAB FOR SQ LOAD Performing Organization Address [facility] Co de Phone Number [facility] [address] [place] [address] * N.GONORRHOEAE PROBE (11/27/1999 16:30 EDT) Specimen Description Cervix [facility] Result No Neisseria gonorrhoeae DNA detected by licensed insurance sales agent mediated amplification. [facility] Report Status Final [id number] [facility] 11/27/1999 16:3 0 EDT 11/28/1999 9:34 EDT Matilde Wiley MD HISTORICAL LAB FOR SQ LOAD Performing Organization Address [facility] Co de Phone Number [facility] [address] [place] [address] * CULTURE FOR GROUP A BETA STREPTOCOCCUS (11/20/1999 16:15 EDT) Specimen Description Throat [facility] Result NO GROUP A BETA STREPTOCOCCI ISOLATED [facility] Report Status Final [id number] [facility] 11/20/1999 16:1 5 EDT 11/20/1999 17:09 EDT Matilde Wiley MD MICROBIOLOGY - GEN ERAL ORDERABLES Performing Organization Address [facility] Co de Phone Number [facility] [address] [place] [address] documented in this encounter Visit Diagnoses Not on filedocumented in this encounter
--- OUTSIDE RECORDS SUMMARY | 2024-01-03 01:11 | XMS_ITS | Encounter Summary ---
Author Organization [facility] Address [address] [place] [address] Care Team Providers Care Theatre Director Name Role Phone Unavailable Primary Care Provider Unavailabl e Encounter Details Date Type Department Care Team ([facility] st Contact Info) Description 04/01/2003 8:13 EST Hospital Encounter [address] [address] Mago Ravi MD [address] [facility], [facility], Level [address] [place] [phone] Social History Tobacco Use Types Packs/Day Years [...] Date/Time Associated Diagnosis Comments RAD ULTRASOUND Routine 04/27/2003 10:00 EST GLUCOSE TOLERANCE, 3HR GESTATIONAL Routine 04/01/2003 11:33 EST documented in this encounter Results * RAD ULTRASOUND (04/27/2003 10:00 EST) Anatomical Region Laterality Modality Other 04/27/2003 10:0 0 EST Narrative 12/20/2008 5:39 EDT [id number],GROWTH AND DOPPLER Please refer to the separate [facility] report. Procedure Note Cornelius Caruso MD - 12/20/2008 [id number],GROWTH AND DOPPLER Please refer to the separate [facility] report. Mago Ravi MD IMG US ORDERABLES * GLUCOSE TOLERANCE, 3HR GESTATIONAL (04/01/2003 11:33 EST) Glucose Enzo, Fasting 83 50 - 95 mg/dl [facility] Glucose Enzo, 1 hr 152 50 - 180 mg/dl [facility] Glucose Enzo, 2hr 116 50 - 155 mg/dl [facility] Gest Gluc Enzo, 3hr 89 50 - 140 mg/dl [facility] Comment: The diagnosis of diabetes is made if two or more of the glucose values exceed the reference range listed. Glucose Dose 100 g PINA SHOEMAKER 04/01/2003 11:3 3 EST 04/01/2003 11:42 EST Mago Ravi MD PACKAGES & DNA PROBE ORDERABLES [facility] [address] [place] [address] documented in this encounter Visit Diagnoses Not on filedocumented in this encounter
--- OUTSIDE RECORDS SUMMARY | 2024-01-03 01:11 | XMS_ITS | Encounter Summary ---
Author Organization [facility] Address [address] [place] [address] Care Team Providers Care Security Lead Name Role Phone Unavailable Primary Care Provider Unavailabl e Encounter Details Date Type Department Care Team (Latest Contact Info) Description 05/30/2003 16:21 EST - 05/31/2003 11:59 EST Hospital Encounter [facility] conversion [address] [place] [address] Frederick Pantoja MD [address] [place] [address] Discharge Disposition: Home or Self Care Social [...] Name Priority Date/Time Associated Diagnosis Comments CREATININE Routine 06/04/2003 11:30 EST URINALYSIS WITH MICROSCOPIC IF POSITIVE Routine 06/04/2003 11:30 EST UA REFLEX Routine 06/04/2003 11:30 EST COMPLETE BLOOD COUNT Routine 06/04/2003 11:30 EST URIC ACID Routine 06/04/2003 11:30 EST BUN Routine 06/04/2003 11:30 EST ALT Routine 06/04/2003 11:30 EST AST Routine 06/04/2003 11:30 EST URINALYSIS WITH MICROSCOPIC IF POSITIVE Routine 05/30/2003 16:38 EST UA REFLEX Routine 05/30/2003 16:38 EST documented in this encounter Results * UA REFLEX (06/04/2003 11:30 EST) UA Billing Microscopic not indicated. [facility] 06/04/2003 11:3 0 EST 06/04/2003 11:54 EST Frederick Pantoja MD URINALYSIS ORDERA [facility] [address] [place] [address] * (ABNORMAL) URINALYSIS (06/04/2003 11:30 EST) Color, UA Yellow [facility] Clarity, UA Clear [facility] Glucose, UA Norm NORM [facility] Bilirubin, UA Neg NEG [facility]CH ER [facility] Ketones, UA Trace(A) NEG [facility] Specific [place], Urine >1.030(H) 1.005 - 1.02 [facility] Blood, UA Neg NEG [facility] pH, UA 5.5 5.0 - 9.0 [facility] Protein, UA Trace(A) NEG [facility] Urobilinogen, UA 1.0(A) NORM mg/dL [facility] Nitrite, UA Neg NEG [facility] Leuk Esterase Neg NEG FLEALLAN ER [facility] Refractometer SG,Urine 1.025 1.005 - 1.02 [facility] Comment:Refractometer specif ic gravity 06/04/2003 11:3 0 EST 06/04/2003 11:54 EST Frederick Pantoja MD URINALYSIS ORDERA BLES Performing Organization Address [facility] de Phone Number [facility] [address] [place] [address] * URIC ACID (06/04/2003 11:30 EST) Uric Acid 4.3 2.2 - 7.7 mg/dl [facility] 06/04/2003 11:3 0 EST 06/04/2003 11:53 EST Frederick Pantoja MD CHEMISTRY & BLOOD GAS ORDERABLES Performing Organization Address [facility] Phone Number [facility] [address] [place] [address] * CREATININE (06/04/2003 11:30 EST) Creatinine 0.8 0.7 - 1.5 mg/dl [facility] 06/04/2003 11:3 0 EST 06/04/2003 11:53 EST Frederick Pantoja MD HISTORICAL LAB FO R SQ LOAD Performing Organization Address [facility] Phone Number [facility] [address] [place] [address] * (ABNORMAL) HEMAGRAM (06/04/2003 11:30 EST) WBC 7.20 4.0 - 12.4 K/cmm [facility] RBC 3.64(L) 3.86 - 5.04 M/cmm [facility] Hemoglobin 12.6 11.6 - 15.2 gm/dl [facility] HCT 35.5 34.9 - 44.4 % [facility] MCV 97 81 - 98 fl [facility] MCH 34.5(H) 26.7 - 33.3 pg [facility] MCHC 35.4 32.1 - 35.9 gm/dl [facility] PLT 162 141 - 320 K/cmm [facility] RDW-CV 12.7 11.7 - 14.6 % [facility] 06/04/2003 11:3 0 EST 06/04/2003 11:53 EST Frederick Pantoja MD HEMATOLOGY & PF4 ORDERABLES Performing Organization Address [facility] de Phone Number [facility] [address] [place] [address] * (ABNORMAL) BUN (06/04/2003 11:30 EST) BUN 8(L) 10 - 26 mg/dl [facility] 06/04/2003 11:3 0 EST 06/04/2003 11:53 EST Frederick Pantoja MD CHEMISTRY & BLOOD GAS ORDERABLES Performing Organization Address [facility] Phone Number [facility] [address] [place] [address] * AST (06/04/2003 11:30 EST) AST 23 15 - 46 U/L [facility] 06/04/2003 11:3 0 EST 06/04/2003 11:53 EST Frederick Pantoja MD CHEMISTRY & BLOOD GAS ORDERABLES Performing Organization Address [facility] de Phone Number [facility] [address] [place] [address] * ALT (06/04/2003 11:30 EST) ALT 14 9 - 52 U/L [facility] 06/04/2003 11:3 0 EST 06/04/2003 11:53 EST Frederick Pantoja MD CHEMISTRY & BLOOD GAS ORDERABLES Performing Organization Address [facility] de Phone Number [facility] [address] [place] [address] * UA REFLEX (05/30/2003 16:38 EST) UA Billing Microscopic not indicated. [facility] 05/30/2003 16:3 8 EST 05/30/2003 16:38 EST Frederick Pantoja MD URINALYSIS ORDERA BLES Performing Organization Address [facility] [[email or web address]] Co de Phone Number [facility] [address] [place] [address] * (ABNORMAL) URINALYSIS (05/30/2003 16:38 EST) Color, UA Yellow [facility] Clarity, UA Clear [facility] Glucose, UA Norm NORM [facility] Bilirubin, UA Small(A) NEG [facility] Ketones, UA Trace(A) NEG [facility] Specific [place], Urine >1.030(H) 1.005 - 1.02 [facility] Blood, UA Neg NEG [facility] pH, UA 6.5 5.0 - 9.0 [facility] Protein, UA 1+(A) NEG [facility] Urobilinogen, UA 1.0(A) NORM mg/dL [facility] Nitrite, UA Neg NEG [facility] Leuk Esterase Neg NEG [facility] Refractometer SG,Urine 1.026(H) 1.005 - 1.02 [facility] 05/30/2003 16:3 8 EST 05/30/2003 16:38 EST Frederick Pantoja MD URINALYSIS ORDERA BLES Performing Organization Address [facility] [[email or web address]] Co de Phone Number [facility] [address] [place] [address] documented in this encounter Visit Diagnoses Not on filedocumented in this encounter
--- OUTSIDE RECORDS SUMMARY | 2024-01-03 01:11 | XMS_ITS | Encounter Summary ---
Author Organization [facility] Address [address] [place] [address] Care Team Providers Care Food Order Delivery Runner Name Role Phone Unavailable Primary Care Provider Unavailabl e Encounter Details Date Type Department Care Team (Latest Contact Info) Description 03/31/2001 12:10 EST Hospital Encounter [facility] - Other [address] [place] [address] Matilde Wiley MD Unknown, Provider, Discharge Disposition: Auto Discharge Social History Tobacco [...] Procedure Name Priority Date/Time Associated Diagnosis Comments BACTERIAL CULTURE, URINE Routine 03/31/2001 16:15 EST documented in this encounter Results * BACTERIAL CULTURE, URINE (03/31/2001 16:15 EST) Specimen Description Urine [facility] Result 10,000 to 100,000 CFU/ml GARDNERELLA VAGINALIS, presumptive identification. Presumptive Identification Less than 10,000 CFU/ml Mixed gram positive growth [facility] Report Status Final [id number] [facility] 03/31/2001 16:1 5 EST 03/31/2001 18:40 EST Matilde Wiley MD MICROBIOLOGY - GEN ERAL ORDERABLES Performing Organization Address City/State/[facility] Co de Phone Number [facility] [address] [place] [address] documented in this encounter Visit Diagnoses Not on filedocumented in this encounter
--- OUTSIDE RECORDS SUMMARY | 2024-01-03 01:11 | XMS_ITS | Encounter Summary ---
Author Organization [facility] Address [address] [place] [address] Care Team Providers Care Geriatric Care Manager Name Role Phone Unavailable Primary Care Provider Unavailabl e Encounter Details Date Type Department Care Team ([facility] st Contact Info) Description 02/05/2003 16:04 EDT Hospital Encounter [facility] - Other [address] [place] [address] Philly Ravi MD 111 [facility], [facility], [address] [place] [phone] Social History Tobacco Use Types Packs/Day Years [...] Date/Time Associated Diagnosis Comments RAD ULTRASOUND Routine 03/25/2003 9:15 EST CYTOPATHOLOGY Routine 02/05/2003 0:00 EDT documented in this encounter Results * RAD ULTRASOUND (03/25/2003 9:15 EST) Anatomical Region Laterality Modality Other 03/25/2003 9:15 EST Narrative 12/20/2008 3:55 EDT [id number],VISULIZE HEART BETTER Please refer to the separate [facility] report. Procedure Note Cornelius Caruso MD - 12/20/2008 [id number],VISULIZE HEART BETTER Please refer to the separate [facility] report. Ashely Valiente NP IMG ORDERABLES * CYTOPATHOLOGY (02/05/2003 0:00 EDT) Pathology Report: CYTOPATHOLOGY REPORT Reports generated via electronic interface contain original data; however they are lacking the format of the original report. Caution should be taken when reading/interpreti ng unformatted reports. Name: ? HECTOR EMMA Donald ? Accession #: ? [id number] : ? 1980 (Age: 22) ??F ?Collect Date: ? 02/05/2003 Location: ? [facility] ? Receive Date: ? 02/08/2003 Provider: ?PHILLY RAVI MD Copy to: ? Specimen/Source: ?ThinPrep Pap Test, Cervix/Endocervix Last Menstrual Period: ? 09/03/02 Menstrual/Pregnanc y Status: ? Previous Gynecologic Pathology: ? LSIL: 04/03 ? SPECIMEN ADEQUACY ? Satisfactory for Evaluation - transformation zone component absent GENERAL CATEGORIZATION ? Negative for Intraepithelial Lesion or Malignancy ? Document reviewed and electronically signed by: ? Jessie Fraser, CT(ASCP)(IAC) ? Report Date: ??02/08/2003 16:14 End of Report DANIEL SHOEMAKER 02/05/2003 02/08/2003 Philly Ravi MD PATHOLOGY ORDERABLES [facility] [address] [place] [address] documented in this encounter Visit Diagnoses Not on filedocumented in this encounter
--- OUTSIDE RECORDS SUMMARY | 2024-01-03 01:11 | XMS_ITS | Encounter Summary ---
Author Organization [facility] Address [address] [place] [address] Care Team Providers Care Glass Lathe Operator Name Role Phone Unavailable Primary Care Provider Unavailabl e Encounter Details Date Type Department Care Team (Latest Contact Info) Description 07/16/2002 10:01 EST - 07/16/2002 11:59 EST Hospital Encounter [facility] - Other [address] [place] [address] Leeanna Valdez, PA-C [address] [place] [phone] Unknown, Provider, Discharge Disposition: Auto Discharge Social [...]
--- OUTSIDE RECORDS SUMMARY | 2024-01-03 01:11 | XMS_ITS | Encounter Summary ---
Author Organization [facility] Address [address] [place] [address] Care Team Providers Care Cash Processing Specialist Name Role Phone Unavailable Primary Care Provider Unavailabl e Encounter Details Date Type Department Care Team (Late st Contact Info) Description 12/29/2002 10:33 EDT - 12/29/2002 11:59 EDT Hospital Encounter [facility] [address] [place] [address] Mago Ravi MD 111 [facility], [facility] [address] [place] [phone] Discharge Disposition: Auto Discharge Social History Tobacco [...] Date/Time Associated Diagnosis Comments RAD ULTRASOUND Routine 01/13/2003 11:30 EDT PROFILE Routine 12/29/2002 10:3 3 EDT URINE CHEMICAL (DIP) & SEDIMENT (MICRO) WITHOUT REFLEX TO CULTURE Routine 12/29/2002 10:33 EDT URINE CHEMICAL (DIP) & SEDIMENT (MICRO) WITHOUT REFLEX TO CULTURE Routine 12/29/2002 10:33 EDT BACTERIAL CULTURE, URINE Routine 12/29/2002 10:33 EDT documented in this encounter Results * RAD ULTRASOUND (01/13/2003 11:30 EDT) Anatomical Region Laterality Modality Other 01/13/2003 11:3 0 EDT Narrative 12/20/2008 0:46 EDT [id number],SIZE/DATES Please refer to the separate [facility] report. Procedure Note Marisela Parham MD - 12/20/2008 [id number],SIZE/DATES Please refer to the separate [facility] report. Mago Ravi MD IMG US ORDERABLES * (ABNORMAL) UA WITH MICROSCOPIC (12/29/2002 10:33 EDT) Color, UA Yellow [facility] Clarity, UA Clear [facility] Glucose, UA Norm NORM [facility] Bilirubin, UA Neg NEG [facility] ER [facility] Ketones, UA Neg NEG [facility] Specific [place], Urine 1.010 1.005 - 1.02 [facility] Blood, UA Neg NEG [facility] pH, UA 8.0 5.0 - 9.0 [facility] Protein, UA Neg NEG [facility] Urobilinogen, UA Norm NORM mg/dL [facility] Nitrite, UA Neg NEG [facility] Leuk Esterase Trace(A) NEG [facility] WBC, UA 1 to 5 0 - 5 /HPF [facility] RBC, UA None seen 0 - 5 /HPF [facility] Squam Epithel, UA Frequent(A) NS /HPF [facility] Renal Epithel, UA None seen NS /HPF [facility] Bacteria, UA Rare(A) NS /HPF [facility] R [facility] Crystals, UA None seen /HPF [facility] Hyaline Casts, UA None seen /LPF [facility] UA Comment Microscopic results are unreliable on urines unrefrig >2hrs or refrig >8hrs. [facility] 12/29/2002 10:3 3 EDT 12/29/2002 10:34 EDT Mago Ravi MD URINALYSIS ORDERABLE S Performing Organization Address [facility] Co de Phone Number [facility] [address] [place] [address] * UA WITH MICROSCOPIC (12/29/2002 10:33 EDT) Color, UA [facility] Clarity, UA [facility] Glucose, UA NORM [facility] Bilirubin, UA NEG LANDON ER [facility] Ketones, UA NEG [facility] Specific [place], Urine 1.005 - 1.02 [facility] Blood, UA NEG [facility] pH, UA 5.0 - 9.0 [facility] Protein, UA NEG [facility] Urobilinogen, UA NORM mg/dL [facility] Nitrite, UA NEG [facility] Leuk Esterase NEG L[facility]ON [facility] WBC, UA 0 - 5 /HPF [facility] RBC, UA 0 - 5 /HPF [facility] Squam Epithel, UA NS /HPF [facility] Renal Epithel, UA NS /HPF [facility] Bacteria, UA NS /HPF [facility] Crystals, UA /HPF [facility] Hyaline Casts, UA /LPF [facility] UA Comment [facility] 12/29/2002 10:3 3 EDT 12/29/2002 10:34 EDT Mago Ravi MD URINALYSIS ORDERABLE S Performing Organization Address [facility] Co de Phone Number [facility] [address] [place] [address] * BACTERIAL CULTURE, URINE (12/29/2002 10:33 EDT) Specimen Description Urine [facility] Result Less than 10,000 CFU/ml Mixed gram positive growth [facility] Report Status Final [id number] [facility] 12/29/2002 10:3 3 EDT 12/29/2002 10:34 EDT Mago Ravi MD MICROBIOLOGY - GENER AL ORDERABLES [facility] [address] [place] [address] * (ABNORMAL) PROFILE (12/29/2002 10:33 EDT) ABO and Rh Type A POS [facility] Antibody Screen Neg [facility] WBC 7.81 4.0 - 12.4 K/cmm [facility] RBC 3.84(L) 3.86 - 5.04 M/cmm [facility] Hemoglobin 13.2 11.6 - 15.2 gm/dl [facility] HCT 38.1 34.9 - 44.4 % [facility] MCV 99(H) 81 - 98 fl [facility] MCH 34.3(H) 26.7 - 33.3 pg [facility] MCHC 34.6 32.1 - 35.9 gm/dl [facility] PLT 204 141 - 320 K/cmm [facility] RDW-CV 13.2 11.7 - 14.6 % [facility] % Neutrophils 76.0 45.5 - 79.7 % [facility] % Lymphocytes 19.4 15.0 - 46.8 % [facility] % Monocytes 3.6 1.8 - 12.0 % [facility] % Eosinophils 0.8 0.6 - 6.9 % [facility] % Basophils 0.2 0.2 - 1.4 % [facility] ABS Neutrophils 5.93 2.20 - 8.85 K/cmm [facility] ABS Lymphs 1.52 1.09 - 3.30 K/cmm [facility] ABS Monocytes 0.28 0.1 - 0.8 K/cmm [facility] ABS Eosinophils 0.07 0.03 - 0.61 K/cmm [facility] ABS Basophils 0.02 0.01 - 0.11 K/cmm [facility] Type of Diff: Automated LANDON SHOEMAKER Hepatitis B Surface Ag Neg New Vitros ECI methodology in use 12/28/02. DANIEL SHOEMAKER Syphilis Sero (RPR) NONREACT. NR Dils DANIEL SHOEMAKER Rubella IgG Scr Antibody detected [facility]ANI[facility] SHOEMAK[facility] 12/29/2002 10:3 3 EDT 12/29/2002 10:34 EDT Mago Ravi MD PACKAGES & DNA PROBE ORDERABLES [facility] [address] [place] [address] documented in this encounter Visit Diagnoses Not on filedocumented in this encounter
--- OUTSIDE RECORDS SUMMARY | 2024-01-03 01:11 | XMS_ITS | Encounter Summary ---
Author Organization [facility] Address [address] [place] [address] Care Team Providers Care Student Teaching Coordinator Name Role Phone Unavailable Primary Care Provider Unavailabl e Encounter Details Date Type Department Care Team (Late st Contact Info) Description 11/05/2002 21:00 EDT Hospital Encounter [address] [address] Anabel Espinosa MD [address] [place] [phone] Social History Tobacco Use Types Packs/Day Years [...]
--- OUTSIDE RECORDS SUMMARY | 2024-01-03 01:11 | XMS_ITS | Encounter Summary ---
Author Organization [facility] Address [address] [place] [address] Care Team Providers Care Oncology Coordinator Name Role Phone Unavailable Primary Care Provider Unavailabl e Encounter Details Date Type Department Care Team (Latest Contact Info) Description 07/13/2002 15:10 EST Hospital Encounter [facility] Emergency Department - [facility] [address] [place], [place] [id number] Emergency, Default, MD Discharge Disposition: Home or [...] Name Priority Date/Time Associated Diagnosis Comments HPV DETECTION, HIGH RISK TYPES Routine 07/16/2002 11:01 EST documented in this encounter Results * HUMAN PAPILLOMA VIRUS DNA TEST (07/16/2002 11:01 EST) Specimen Description Cervix, ThinPrep vial [facility] Result Positive for one or more of HPV types 16,18,31,33,35 ,39,45,51,52,5 6,58,59, or 68. These high/intermedi ate risk HPV types are associated with dysplasia and some cervical cancers. [facility] Report Status Final [id number] [facility] 07/16/2002 11:0 1 EST 07/24/2002 11:01 EST Leeanna Valdez PA-C MICROBIOLOGY - GEN ERAL ORDERABLES Performing Organization Address City/State/[facility] Co de Phone Number [facility] [address] [place] [address] documented in this encounter Visit Diagnoses Not on filedocumented in this encounter
--- OUTSIDE RECORDS SUMMARY | 2024-01-03 01:11 | XMS_ITS | Encounter Summary ---
Author Organization [facility] Address [address] [place] [address] Care Team Providers Care Sheet Hanger Name Role Phone Unavailable Primary Care Provider Unavailabl e Encounter Details Date Type Department Care Team (Late st Contact Info) Description 10/13/2004 23:08 EDT Hospital Encounter [facility] - Other [address] [place] [address] Chelsie Veronica MD Social History Tobacco Use Types Packs/Day [...]
--- OUTSIDE RECORDS SUMMARY | 2024-01-03 01:11 | XMS_ITS | Encounter Summary ---
Author Organization [facility] Address [address] [place] [address] Care Team Providers Care Layout Inspector Name Role Phone Unavailable Primary Care Provider Unavailabl e Encounter Details Date Type Department Care Team (Latest Contact Info) Description 03/19/2001 13:10 EST Hospital Encounter [facility] - Other [address] [place] [address] Bijan Recinos MD Unknown, Provider, Discharge Disposition: Auto Discharge [...] Associated Diagnosis Comments BACTERIAL CULTURE, URINE Routine 03/19/2001 15:00 EST documented in this encounter Results * BACTERIAL CULTURE, URINE (03/19/2001 15:00 EST) Specimen Description Urine [facility] Result Greater than 100,000 CFU/ml ESCHERICHIA COLI [facility] Report Status Final [id number] [facility] 03/19/2001 15:0 0 EST 03/19/2001 19:34 EST Narrative Organism Antibiotic Method Susceptibility Greater than 100,000 cfu/ml escherichia coli Ampicillin SUSCEPTIBILITY (MARY) 2 Susceptible Greater than 100,000 cfu/ml escherichia coli Cefazolin SUSCEPTIBILITY (MARY) <=8 Susceptible Greater than 100,000 cfu/ml escherichia coli Gentamicin SUSCEPTIBILITY (MARY) <=0.5 Susceptible Greater than 100,000 cfu/ml escherichia coli Trimethoprim-Sulfameth oxazole SUSCEPTIBILITY (MARY) <=.5/9.5 Susceptible Greater than 100,000 cfu/ml escherichia coli Nitrofurantoin SUSCEPTIBILITY (MARY) <=32 Susceptible Greater than 100,000 cfu/ml escherichia coli Tobramycin SUSCEPTIBILITY (MARY) 1 Susceptible Greater than 100,000 cfu/ml escherichia coli Amikacin SUSCEPTIBILITY (MARY) <=2 Susceptible Greater than 100,000 cfu/ml escherichia coli Imipenem SUSCEPTIBILITY (MARY) <=4 Susceptible Greater than 100,000 cfu/ml escherichia coli Piperacillin SUSCEPTIBILITY (MARY) <=8 Susceptible Greater than 100,000 cfu/ml escherichia coli Ciprofloxacin SUSCEPTIBILITY (MARY) <=0.5 Susceptible Bijan Recinos MD MICROBIOLOG Y - GENERAL ORDERABLES [facility] [address] [place] [address] documented in this encounter Visit Diagnoses Not on filedocumented in this encounter
--- OUTSIDE RECORDS SUMMARY | 2024-01-03 01:11 | XMS_ITS | Encounter Summary ---
Author Organization [facility] Address [address] [place] [address] Care Team Providers Care Clock Smith Name Role Phone Unavailable Primary Care Provider Unavailabl e Encounter Details Date Type Department Care Team ([facility] st Contact Info) Description 11/27/1999 Results Only [facility] Pediatric Primary Care - [place] [address] [place], [place] [address] Matilde Wiley MD Social History Tobacco Use Types Packs/Day [...] Priority Date/Time Associated Diagnosis Comments CYTOPATHOLOGY Routine 11/27/1999 0:00 EDT documented in this encounter Results * CYTOPATHOLOGY (11/27/1999 0:00 EDT) Pathology Report: CYTOPATHOLOGY REPORT Reports generated via electronic interface contain original data; however they are lacking the format of the original report. Caution should be taken when reading/interpreti ng unformatted reports. Name: ? EMMA MIN ? Accession #: ? [id number] : ? 1980 (Age: 19) ??F ?Collect Date: ? 11/27/1999 Location: ? UPD1 ? Receive Date: ? 11/28/1999 Provider: ?MATILDE WILEY MD Copy to: ? Specimen/Source: ?ThinPrep Pap Test, Endocervix Last Menstrual Period: ? 11/24/99 ? SPECIMEN ADEQUACY ? Satisfactory for evaluation. GENERAL CATEGORIZATION ? Within Normal Limits ? Document reviewed and electronically signed by: ? EDVIN Arriaga(ASCP) ? Report Date: ??11/30/1999 13:04 End of Report DANIEL SHOEMAKER 11/27/1999 11/28/1999 Matilde Wiley MD PATHOLOGY ORDERABL ES [facility] [address] [place] [address] documented in this encounter Visit Diagnoses Not on filedocumented in this encounter
--- OUTSIDE RECORDS SUMMARY | 2024-01-03 01:11 | XMS_ITS | Encounter Summary ---
Author Organization [facility] Address [address] [place] [address] Care Team Providers Care Leave Coordinator Name Role Phone Unavailable Primary Care Provider Unavailabl e Encounter Details Date Type Department Care Team (Latest Contact Info) Description 08/26/2002 20:55 EDT Hospital Encounter [facility] Emergency Department - [facility] [address] [place], [place] [id number] Emergency, Default, MD Discharge Disposition: Home or [...]
--- OUTSIDE RECORDS SUMMARY | 2024-01-03 01:11 | XMS_ITS | Encounter Summary ---
Author Organization [facility] Address [address] [place] [address] Care Team Providers Care Pipelaying Fitter Name Role Phone Unavailable Primary Care Provider Unavailabl e Encounter Details Date Type Department Care Team (Latest Contact Info) Description 09/22/2004 11:05 EDT - 09/22/2004 11:59 EDT Hospital Encounter [facility] Emergency Department - [facility] [address] [place] [address] Emergency, Default, MD Discharge Disposition: Home or [...]
--- OUTSIDE RECORDS SUMMARY | 2024-01-03 01:11 | XMS_ITS | Encounter Summary ---
Author Organization [facility] Address [address] [place] [address] Care Team Providers Care Senior Software Engineer Analytics Name Role Phone Unavailable Primary Care Provider Unavailabl e Encounter Details Date Type Department Care Team (Late st Contact Info) Description 11/05/2002 Results Only [facility] - [address] [address] Anabel Espinosa MD [address] [place] [phone] Social History Tobacco Use Types Packs/Day Years [...] Associated Diagnosis Comments BACTERIAL CULTURE, URINE Routine 11/05/2002 21:01 EDT documented in this encounter Results * BACTERIAL CULTURE, URINE (11/05/2002 21:01 EDT) Specimen Description Urine [facility] Result 10,000 to 100,000 CFU/ml Mixed gram positive growth Less than 10,000 CFU/ml Gram negative bacilli [facility] Report Status Final [id number] [facility] 11/05/2002 21:0 1 EDT 11/05/2002 21:16 EDT Anabel Espinosa MD MICROBIOLOGY - G ENERAL ORDERABLES [facility] [address] [place] [address] documented in this encounter Visit Diagnoses Not on filedocumented in this encounter
--- OUTSIDE RECORDS SUMMARY | 2024-01-03 01:11 | XMS_ITS | Encounter Summary ---
Author Organization [facility] Address [address] [place] [address] Care Team Providers Care Doll Wig Maker Name Role Phone Unavailable Primary Care Provider Unavailabl e Encounter Details Date Type Department Care Team (Late st Contact Info) Description 05/14/2003 0:25 EST - 05/14/2003 11:59 EST Hospital Encounter [facility] [address] [place] [address] Donald hCoi MD [address] [facility] [address] [place] [address] Discharge Disposition: Home or Self [...]
--- OUTSIDE RECORDS SUMMARY | 2024-01-03 01:11 | XMS_ITS | Encounter Summary ---
Author Organization [facility] Address [address] [place] [address] Care Team Providers Care Wet Process Head Miller Name Role Phone Unavailable Primary Care Provider Unavailabl e Encounter Details Date Type Department Care Team (Latest Contact Info) Description 06/16/2003 10:30 EST - 06/18/2003 11:59 EST Hospital Encounter [facility] Mother/Baby Unit [address] [place] [address] Abdulaziz Reeves MD [address] [place] [address] Discharge Disposition: Home-Health Care Svc Social History [...] Procedure Name Priority Date/Time Associated Diagnosis Comments URINE MICROSCOPIC Routine 06/16/2003 13: 30 EST URINALYSIS WITH MICROSCOPIC IF POSITIVE Routine 06/16/2003 13:30 EST COMPLETE BLOOD COUNT AND DIFFERENTIAL Routine 06/16/2003 11:54 EST SURGICAL PATHOLOGY Routine 06/16/2003 0: 00 EST documented in this encounter Results * (ABNORMAL) URINE MICROSCOPIC (06/16/2003 13:30 EST) WBC, UA 10 to 50 0 - 5 /HPF [facility] RBC, UA less than 1 0 - 5 /HPF [facility] Squam Epithel, UA Many(A) NS /HPF [facility] Renal Epithel, UA None seen NS /HPF [facility] Bacteria, UA None seen NS /HPF [facility] Crystals, UA None seen /HPF [facility] Hyaline Casts, UA None seen /LPF [facility] UA Comment Microscopic results are unreliable on urines unrefrig >2hrs or refrig >8hrs. [facility] 06/16/2003 13:3 0 EST 06/16/2003 13:30 EST Abdulaziz Reeves MD URINALYSIS ORDERA BLES [facility] [address] [place] [address] * (ABNORMAL) URINALYSIS (06/16/2003 13:30 EST) Color, UA Yellow [facility] Clarity, UA Clear [facility] Glucose, UA Norm NORM [facility] Bilirubin, UA Neg NEG [facility] Ketones, UA Trace(A) NEG [facility] Specific [place], Urine >1.030(H) 1.005 - 1.02 [facility] Blood, UA Neg NEG [facility] pH, UA 6.0 5.0 - 9.0 [facility] Protein, UA 2+(A) NEG [facility] Urobilinogen, UA Norm NORM mg/dL [facility] Nitrite, UA Neg NEG [facility] Leuk Esterase Trace(A) NEG [facility] Refractometer SG,Urine 1.024 1.005 - 1.02 [facility] Comment:Refractometer specif ic gravity 06/16/2003 13:3 0 EST 06/16/2003 13:30 EST Abdulaziz Reeves MD URINALYSIS ORDERA BLES [facility] [address] [place] [address] * (ABNORMAL) HEMAGRAM AND DIFFERENTIAL (06/16/2003 11:54 EST) WBC 7.53 4.0 - 12.4 K/cmm [facility] RBC 3.90 3.86 - 5.04 M/cmm [facility] Hemoglobin 13.0 11.6 - 15.2 gm/dl [facility] HCT 38.1 34.9 - 44.4 % [facility] MCV 98 81 - 98 fl [facility] MCH 33.5(H) 26.7 - 33.3 pg [facility] MCHC 34.2 32.1 - 35.9 gm/dl [facility] PLT 144 141 - 320 K/cmm [facility] RDW-CV 12.9 11.7 - 14.6 % [facility] % Neutrophils 78.6 45.5 - 79.7 % [facility] % Lymphocytes 16.5 15.0 - 46.8 % [facility] % Monocytes 4.2 1.8 - 12.0 % [facility] % Eosinophils 0.4(L) 0.6 - 6.9 % [facility] % Basophils 0.3 0.2 - 1.4 % [facility] ABS Neutrophils 5.92 2.20 - 8.85 K/cmm [facility] ABS Lymphs 1.24 1.09 - 3.30 K/cmm [facility] ABS Monocytes 0.31 0.1 - 0.8 K/cmm [facility] ABS Eosinophils 0.03 0.03 - 0.61 K/cmm [facility] ABS Basophils 0.02 0.01 - 0.11 K/cmm [facility] Type of Diff: Automated [facility] 06/16/2003 11:5 4 EST 06/16/2003 11:54 EST Abdulaziz Reeves MD PACKAGES & DNA [place] OBE ORDERABLES [facility] [address] [address] * SURGICAL PATHOLOGY (06/16/2003 0:00 EST) Pathology Report: SURGICAL PATHOLOGY REPORT Reports generated via electronic interface contain original data; however they are lacking the format of the original report. Caution should be taken when reading/interpreti ng unformatted reports. Name: ? EMMA MIN ? Accession #: ? [id number] ? : ? 1980 (Age: 23) ??F ? Collect Date: ? 06/16/2003 ? Location: ? SB05 ? Receive Date: ? 06/17/2003 ? Provider: ABDULAZIZ REEVES MD Copy to: JR WORTHY MD ? Final Pathologic Diagnosis: ? Term holguin placenta: 1. ?Umbilical cord with velamentous insertion. 2. ? membranes and placenta with no abnormalities. Document reviewed and electronically signed by: Felicita Thompson MD Report ??Date: 06/25/2003 17:00 By the signature above, the attending physician certifies that he/she has personally conducted a gross and/or microscopic examination of the described specimens and rendered or confirmed the above diagnosis. Specimen(s) Received: ? Placenta Clinical History: ? 40+6 wks Gross Description: ? Received in normal saline labelled Mechelle is a placental disc with attached membranes and umbilical cord. There is a separately received fragment of umbilical cord which measures 13.0 cm in length and 1.0 cm in diameter. ??The umbilical cord attached to the placenta has a velamentous insertion 9.0 cm from the placental disc margin. ??The attached length of umbilical cord measures 22.0 cm in length and 1.5 cm in diameter. ??There are no true or false knots. ??The umbilical cord is white-rossi and slightly translucent. The membranes are marginally inserted. ??They are rossi-pink, translucent and shiny with a small amount of white fibrinous exudate. ??The placental disc weighs 625 grams with membranes and umbilical cord removed. ??It is heart-shaped and measures 19.0 x 19.0 x 2.5 cm. ??The surface is blue-randall with the normal arborizing vascular pattern. ??The maternal surface is composed of multiple dark red cotyledons which appear intact. ??Serial sectioning reveals dark red beefy tissue. ??There are no visible infarcts. ??Commercial Lines Sales Executive sections are submitted as follows: BLOCK BOLTON A1 ?Two outside dealer sales representative sections umbilical cord and one outside dealer sales representative section membranes A2,A3 ?Two outside dealer sales representative sections of placental disc (Dr. Haile)/[facility] End of Report DANIEL SHOEMAKER 06/16/2003 06/17/2003 8:5 8 EST Abdulaziz Reeves MD PATHOLOGY ORDERAB LES [facility] [address] [place] [address] documented in this encounter Visit Diagnoses Not on filedocumented in this encounter
--- OUTSIDE RECORDS SUMMARY | 2024-01-03 01:11 | XMS_ITS | Encounter Summary ---
Author Organization [facility] Address [address] [place] [address] Care Team Providers Care Account Service Associate Name Role Phone Unavailable Primary Care Provider Unavailabl e Encounter Details Date Type Department Care Team ([facility] st Contact Info) Description 11/03/2004 19:34 EDT Hospital Encounter [facility] - Other [address] [place] [address] Mago Ravi MD [address] [facility], [facility], [address] [place] [phone] Social History Tobacco Use Types Packs/Day Years [...]
--- OUTSIDE RECORDS SUMMARY | 2024-01-03 01:11 | XMS_ITS | Encounter Summary ---
Author Organization [facility] Address [address] [place] [address] Care Team Providers Care Touch Up Worker Name Role Phone Unavailable Primary Care Provider Unavailabl e Encounter Details Date Type Department Care Team (Latest Contact Info) Description 08/23/2002 1:37 EDT - 08/23/2002 11:59 EDT Hospital Encounter [facility] Emergency Department - [facility] [address] [place] [address] Emergency, Default, MD Discharge Disposition: Home or [...]
--- OUTSIDE RECORDS SUMMARY | 2024-01-03 01:11 | XMS_ITS | Encounter Summary ---
Author Organization [facility] Address [address] [place] [address] Care Team Providers Care Packer Inspector Name Role Phone Unavailable Primary Care Provider Unavailabl e Encounter Details Date Type Department Care Team (Late st Contact Info) Description 11/27/1999 23:31 EDT Hospital Encounter [facility] - Other [address] [place] [address] Matilde Wiley MD Unknown, Provider, Social History [...]
--- OUTSIDE RECORDS SUMMARY | 2024-01-03 01:11 | XMS_ITS | Encounter Summary ---
Author Organization [facility] Address [address] [place] [address] Care Team Providers Care Database Designer Name Role Phone Unavailable Primary Care Provider Unavailabl e Encounter Details Date Type Department Care Team (Latest Contact Info) Description 07/11/2002 11:55 EST - 07/11/2002 11:59 EST Hospital Encounter [facility] Emergency Department - [facility] [address] [place] [address] Emergency, Default, MD Discharge Disposition: Home or [...] Procedure Name Priority Date/Time Associated Diagnosis Comments CERVICAL SPINE AP&LAT Routine 07/11/2002 13:59 EST documented in this encounter Results * CERVICAL SPINE AP&LAT (07/11/2002 13:59 EST) Anatomical Region Laterality Modality Other 07/11/2002 13:5 9 EST Impressions 01/04/2009 3:28 EDT IMPRESSION: Negative evaluation of the cervical spine. These findings were forwarded to NARENDRA Major. dw Narrative 01/04/2009 3:28 EDT PAIN C2-3 R/O FX CERVICAL SPINE 4 VIEWS: 07/11/02 13:35 HOURS FINDINGS: Four views of the cervical spine were obtained with no comparison films available at time of review. There is minimal loss of the normal lordotic curve of the cervical spine, likely secondary to a cervical collar which is in place. There is maintenance of the vertebral body height and disc space throughout the cervical spine. There is no evidence of a fracture, dislocation or subluxation. The soft tissues are normal in appearance. The lateral masses of C1 and C2 are visualized and appear normal. Procedure Note Juan David Azar MD / Sita Zaragoza MD - 01/04/2009 PAIN C2-3 R/O FX CERVICAL SPINE 4 VIEWS: 07/11/02 13:35 HOURS FINDINGS: Four views of the cervical spine were obtained with no comparison films available at time of review. There is minimal loss of the normal lordotic curve of the cervical spine, likely secondary to a cervical collar which is in place. There is maintenance of the vertebral body height and disc space throughout the cervical spine. There is no evidence of a fracture, dislocation or subluxation. The soft tissues are normal in appearance. The lateral masses of C1 and C2 are visualized and appear normal. IMPRESSION IMPRESSION: Negative evaluation of the cervical spine. These findings were forwarded to ANRENDRA Major. ulysses Nick Langley PA-C IMG DIAGNOSTIC IMAGI NG ORDERABLES documented in this encounter Visit Diagnoses Not on filedocumented in this encounter
--- OUTSIDE RECORDS SUMMARY | 2024-01-03 01:11 | XMS_ITS | Encounter Summary ---
Author Organization [facility] Address [address] [place] [address] Care Team Providers Care Studio Technician Name Role Phone Unavailable Primary Care Provider Unavailabl e Encounter Details Date Type Department Care Team (Late st Contact Info) Description 09/22/2004 Office Visit [facility] [address] [place] [address] Pj Byrne PA [address] [place] [address] Social History Tobacco Use Types Packs/Day Years Used Date Smoking Tobacco: Never Assessed Sex and Gender Information Value Date Recorded Sex Assigned at Female 01/29/2022 18:29 EDT Gender Identity Female 05/30/2019 9:03 EST Sexual Orientation Choose not to disclose 2023 15:46 EST documented as of this encounter Progress Notes * Pj Byrne - 06/22/2009 0108 EST Department - Physician Summary Registration Date/Time: 09/22/2004 11:05 Arrived- By private vehicle. Historian- patient. HISTORY OF PRESENT ILLNESS Chief complaint- ABDOMINAL PAIN. This started 4 - 5 months ago and is still present (sp cholescysectome [address] [facility]. pain free for the first 5 months. Has not sought any medical care or eval due to no insurance. Med used were from original rx. ). It is described as sharp. It is described as radiating to back, generalized in location and located in the right upper quadrant, epigastric area and left upper quadrant. Modifying factors- worsened by food. Relieved by antacids (partial relief with famotidine). She has had nausea, loss of appetite and vomiting. No diarrhea. Patient has not had similar symptoms previously. REVIEW OF SYSTEMS Last normal menstrual period- 1 weeks ago The patient has had pain on urination (for 1episode). No fever, sore throat, chest pain, difficulty breathing or cough. No chills. PAST HISTORY See nurses notes. No history of heart disease, lung disease, renal disease or neurological disease. Prior abdominal surgery: cholecystectomy (10 months ago). Medications: See nurses notes. Allergies: See nurses notes. SOCIAL HISTORY Smoker. No alcohol or drug use. FAMILY HISTORY No family history of gall bladder problems or history of heart disease. ADDITIONAL NOTES The nursing notes have been reviewed. PHYSICAL EXAM Appearance: Alert. No acute distress. Eyes: Pupils equal, round and reactive to light. Eyes normal inspection. No scleral icterus. ENT: Pharynx normal. Neck: Normal inspection. Neck supple. CVS: Normal heartrate and rhythm. Heart sounds normal. Pulses normal. Respiratory: No respiratory distress. Breath sounds normal. Abdomen: Moderate tenderness in the upper abdomen and epigastric area. Abdomen soft. No guarding orrebound tenderness. Back: Normal inspection. Skin: Normal skin color. Skin warm. Neuro: Oriented X 3. No motor deficit. No sensory deficit. LABS, X-RAYS, AND EKG CBC: CBC is normal. Chemistries: Normal. Lipase normal. Urinalysis: (dipstick). Urinalysis #2: Urine dipstick positive for moderate leukocyte esterase. HCG: Urine HCG negative. PROGRESS AND PROCEDURES E.D. Course: 12:21. pain an 8 to 3 after GI cocktail I consider peptic ulcer disease, gastroesophageal reflux disease, adhesions, hepatitis and pancreatitis unlikely as a cause of abdominal pain in this patient. Above considerations are based on history, physical exam, reassessment and laboratory data. ED Attending on duty and available for supervision: Comfort Crowe. Disposition: Discharged home. Condition: good. Discharged home in good condition. CLINICAL IMPRESSION Gastritis. Probable dysuria. INSTRUCTIONS Drink plenty of fluids. Warnings: GENERAL WARNINGS:Return or contact your physician immediately if your condition worsens or changes unexpectedly, if not improving as expected, or if other problems arise. Specifically, return if painor vomiting worsens. Prescription Medications: Prilosec 20 mg: take 1 orally for 10 days. Dispense ten (10). Generic substitute OK. Bactrim DS: take 1 tablet orally for 3 days. No refill. No generic substitution. OTC Medications: Maximum Strength Maalox Liquid (Available over the counter): take according to label instructions. (Electronically signed by Pj Byrne P.A. 09/22/2004 19:01) Department - Nursing Summary Registration Date/Time: 09/22/2004 11:05 TRIAGE Initial Assessment Triage time 11:07 Acuity: LEVEL 4. BP: 119 / 63 HR: 111 RR: 16 Temp: 36.7 (tympanic). Alert. No acute distress. --1110 Isabel Kim R.N. Medications (promethazine, famotidine). --1110 Isabel Kim R.N. Allergies (paxil). --1110 Isabel Kim R.N. History Chief Complaint: ABDOMINAL PAIN. Onset- X 2 mos Relates location as in the right side of the back, right and left upper quadrant, right abdomen and upper abdomen. Relates location as generalized across abdomen. Pain level now: 8/10.The patient has had nausea and vomiting. PAST HX: Last normal menstrual period was 1 week ago. (cholecystectomy November). SOCIAL HX: Cigarette smoker: less than 1 pack per day. Denies alcohol use. No report of abuse. Arrived by private vehicle and accompanied by family. Historian: patient. --1110 Isabel Kim R.N. Interventions To room. --1110 Isabel Kim R.N. NURSING PROGRESS NOTES Progress GI COCKTAIL composed of 10 mL viscous lidocaine and 20 mL antacid PO. --1147 Marija Galvez R.N. Blood samples drawn with syringe and 21g butterfly by tech and sent to lab: purple and tiger top; total amount drawn 10 mL. --1158 Lina Boateng, Clean catch urine collected. Urine test negative (sg 1010, ph 6.0, leuks 1+). --1201 Marija Galvez R.N. Reassessment after medication administered. Overall patient status- the patient states feels better. --1240 Marija Galvez R.N. DISPOSITION / DISCHARGE Condition at departure: improved. No barriers to learning present. Discharge instructions reviewed with the patient. Reviewed medication; prescription (s) given to the patient. Patient verbalized understanding. The patient was discharged home and accompanied by electronic court recorder. The patient left the Emergency Department ambulatory and via private vehicle. --4328 Trena Ford R.N., R.N. Lina Kilo Locked/Released at09/22/2004 13:48 by Marija Galvez R.N. documented in this encounter Plan of Treatment Not on file documented as of this encounter Visit Diagnoses Not on filedocumented in this encounter
--- OUTSIDE RECORDS SUMMARY | 2024-01-03 01:11 | XMS_ITS | Encounter Summary ---
Author Organization [facility] Address [address] [place] [address] Care Team Providers Care Order Planner Name Role Phone Unavailable Primary Care Provider Unavailabl e Encounter Details Date Type Department Care Team ([facility] st Contact Info) Description 06/04/2003 16:42 EST Hospital Encounter [facility] - Other [address] [place] [address] Frederick Pantoja MD [address] [place] [address] Social History Tobacco Use Types Packs/Day Years [...]
--- OUTSIDE RECORDS SUMMARY | 2024-01-03 01:11 | XMS_ITS | Encounter Summary ---
Author Organization [facility] Address [address] [place] [address] Care Team Providers Care Thread Inspector Name Role Phone Unavailable Primary Care Provider Unavailabl e Encounter Details Date Type Department Care Team (Late st Contact Info) Description 12/11/2002 Results Only [facility] - Maple conversion [address] [place], [place] [address] Mago Ravi MD [address] [facility], [facility] [address] [place] [address] Social History Tobacco Use Types [...] Procedure Name Priority Date/Time Associated Diagnosis Comments N. GONORRHOEAE AMPLIFIED PROBE Routine 12/11/2002 14:32 EDT ZZCHLAMYDIA TRACHOMATIS AMPLIFIED PROBE Routine 12/11/2002 14:32 EDT documented in this encounter Results * N. GONORRHOEAE AMPLIFIED PROBE (12/11/2002 14:32 EDT) Result No Neisseria gonorrhoeae DNA detected by film examiner mediated amplification. [facility] Report Status Final [id number] [facility] Specimen Description Cervix [facility] 12/11/2002 14:3 2 EDT 12/14/2002 14:32 EDT Mago Ravi MD MICROBIOLOGY - GENER AL ORDERABLES Performing Organization Address [facility] de Phone Number [facility] [address] [place] [address] * CHLAMYDIA TRACHOMATIS AMPLIFIED PROBE (12/11/2002 14:32 EDT) Specimen Description Cervix [facility] Result No Chlamydia trachomatis DNA detected by film examiner mediated amplification. [facility] Report Status Final [id number] [facility] 12/11/2002 14:3 2 EDT 12/14/2002 14:32 EDT Mago Ravi MD MICROBIOLOGY - GENER AL ORDERABLES Performing Organization Address [facility] de Phone Number [facility] [address] [place] [address] documented in this encounter Visit Diagnoses Not on filedocumented in this encounter
--- OUTSIDE RECORDS SUMMARY | 2024-01-03 01:11 | XMS_ITS | Encounter Summary ---
Author Organization [facility] Address [address] [place] [address] Care Team Providers Care Environmental Laboratory Technician Name Role Phone Unavailable Primary Care Provider Unavailabl e Encounter Details Date Type Department Care Team (Late st Contact Info) Description 10/26/2004 19:12 EDT Hospital Encounter [facility] - Other [address] [place] [address] Frederick Pantoja MD [address] [place] [address] Social History Tobacco Use Types Packs/Day Years [...]
--- OUTSIDE RECORDS SUMMARY | 2024-01-03 01:11 | XMS_ITS | Encounter Summary ---
Author Organization [facility] Address [address] [place] [address] Care Team Providers Care Manufacturing Group Leader Name Role Phone Unavailable Primary Care Provider Unavailabl e Encounter Details Date Type Department Care Team (Late st Contact Info) Description 07/16/2002 Results Only [facility] - Maple conversion [address] [place] [address] Leeanna Valdez PA-C [address] [place] [phone] Social History Tobacco Use Types Packs/Day Years [...] Priority Date/Time Associated Diagnosis Comments CYTOPATHOLOGY Routine 07/16/2002 0:00 EST documented in this encounter Results * CYTOPATHOLOGY (07/16/2002 0:00 EST) Pathology Report: CYTOPATHOLOGY REPORT Reports generated via electronic interface contain original data; however they are lacking the format of the original report. Caution should be taken when reading/interpreti ng unformatted reports. Name: ? EMMA MIN ? Accession #: ? [id number] : ? 1980 (Age: 22) ??F ?Collect Date: ? 07/16/2002 Location: ? [facility] ? Receive Date: ? 07/20/2002 Provider: ?LEEANNA MACKEY Copy to: ? Specimen/Source: ?ThinPrep Pap Test, Cervix/Endocervix Last Menstrual Period: ? Last month ? Other: ? HPVDX - HPV testing requested regardless of diagnosis on current ThinPrep Pap test. ? SPECIMEN ADEQUACY ? Satisfactory for Evaluation - transformation zone component present GENERAL CATEGORIZATION ? Epithelial Cell Abnormality INTERPRETATION ? Squamous Cell Abnormality - Low grade squamous intraepithelial lesion (LSIL). EDUCATIONAL NOTES/RECOMMENDATI ONS ? [facility] recommends following the 2001 Consensus Guidelines for the Management of Women with Cervical Cytological Abnormalities (JULISSA,2002;287:212 0-9). Management algorithms have been distributed by [facility] and are available online at www.ASCCP.org. ? Document reviewed and electronically signed by: ? TALIA GRIFFITH ? Report Date: ??07/23/2002 17:09 End of Report [facility] 07/16/2002 07/20/2002 Leeanna Valdez PA-C PATHOLOGY ORDERABL ES [facility] [address] [place] [address] documented in this encounter Visit Diagnoses Not on filedocumented in this encounter
--- OUTSIDE RECORDS SUMMARY | 2024-01-03 01:11 | XMS_ITS | Encounter Summary ---
Author Organization [facility] Address [address] [place] [address] Care Team Providers Care Simulation Software Engineer Name Role Phone Unavailable Primary Care Provider Unavailabl e Encounter Details Date Type Department Care Team ([facility] st Contact Info) Description 10/13/2003 14:41 EDT Hospital Encounter [facility] - Other [address] [place] [address] Jr Choi MD [address] [facility], [place], [address] [place] [phone] Social History Tobacco Use Types Packs/Day Years [...] Priority Date/Time Associated Diagnosis Comments CYTOPATHOLOGY Routine 10/13/2003 0:00 EDT documented in this encounter Results * CYTOPATHOLOGY (10/13/2003 0:00 EDT) Pathology Report: CYTOPATHOLOGY REPORT Reports generated via electronic interface contain original data; however they are lacking the format of the original report. Caution should be taken when reading/interpreti ng unformatted reports. Name: ? EMMA MIN ? Accession #: ? [id number] : ? 1980 (Age: 23) ??F ?Collect Date: ? 10/13/2003 Location: ? [facility] ? Receive Date: ? 10/15/2003 Provider: ?JR CHOI MD Copy to: ?DOC BONNER MD ? Specimen/Source: ?ThinPrep Pap Test, Cervix/Endocervix Last Menstrual Period: ? 09/11/03 Menstrual/Pregnanc y Status: ? Post : 4 months Hormonal/Contracep tive Status: ? Yes Previous Gynecologic Pathology: ? LSIL: 07/23 ? SPECIMEN ADEQUACY ? Satisfactory for Evaluation - transformation zone component present GENERAL CATEGORIZATION ? Negative for Intraepithelial Lesion or Malignancy INTERPRETATION ? Shift in ashley present suggestive of bacterial vaginosis. ? Document reviewed and electronically signed by: ? EDVIN Brandon(ASCP) ? Report Date: ??10/20/2003 10:38 End of Report [facility] 10/13/2003 10/15/2003 Jr Choi MD PATHOLOGY ORDERABL ES [facility] [address] [place] [address] documented in this encounter Visit Diagnoses Not on filedocumented in this encounter
--- OUTSIDE RECORDS SUMMARY | 2024-01-03 01:11 | XMS_ITS | Encounter Summary ---
Author Organization [facility] Address [address] [place] [address] Care Team Providers Care Administrative Dietitian Name Role Phone Unavailable Primary Care Provider Unavailabl e Encounter Details Date Type Department Care Team (Late st Contact Info) Description 10/26/2004 Results Only [facility] - Maple conversion [address] [place] [address] Abdulaziz Reeves MD [address] [place] [address] Social History Tobacco Use Types Packs/Day Years [...] Priority Date/Time Associated Diagnosis Comments CYTOPATHOLOGY Routine 10/26/2004 0:00 EDT documented in this encounter Results * CYTOPATHOLOGY (10/26/2004 0:00 EDT) Pathology Report: CYTOPATHOLOGY REPORT Reports generated via electronic interface contain original data; however they are lacking the format of the original report. Caution should be taken when reading/interpreti ng unformatted reports. Name: ? HECTOR, EMMA M ? Accession #: ? [id number] : ? 1980 (Age: 24) ??F ?Collect Date: ? 10/26/2004 Location: ? [facility] ? Receive Date: ? 10/26/2004 Provider: ?ABDULAZIZ REEVES MD Copy to: ? Specimen/Source: ?ThinPrep Pap Test, Cervix/Endocervix, processed on [email or web address] ThinPrep Imaging System, with manual evaluation Last Menstrual Period: ? 09/05/04 Menstrual/Pregnanc y Status: ? Previous Gynecologic Pathology: ? LSIL: 07/23 ? SPECIMEN ADEQUACY ? Satisfactory for Evaluation - transformation zone component present GENERAL CATEGORIZATION ? Negative for Intraepithelial Lesion or Malignancy INTERPRETATION ? Shift in ashley present suggestive of bacterial vaginosis. ? Document reviewed and electronically signed by: ? EDVIN Brandon(ASCP) ? Report Date: ??11/02/2004 11:07 End of Report [facility] 10/26/2004 10/26/2004 Abdulaziz Reeves MD PATHOLOGY ORDERAB LES [facility] [address] [place] [address] documented in this encounter Visit Diagnoses Not on filedocumented in this encounter
[2024-01-03 13:24] LABS: HCT 39.9 % (36.0-46.0); HGB 13.6 g/dL (11.2-15.7)
[2024-01-03 13:50] LABS: Ferritin 77 ng/mL (8-252)
== END 2024-01-20 23:59 | disposition home or self-care (01) ==
LOC: INF 01:02
PROVIDERS: Nurse Practitioner Adult Health; PCP Internal Medicine; Visit Provider Internal Medicine Hematology
DX: E83.118 Other hemochromatosis (principal)
CPT/HCPCS: 36415; 99195; 82728; 85014; 85018

== ENCOUNTER 2024-05-15 12:52 | Outpatient (RCR) | payer MEDICAID, SELFPAY ==
--- OUTSIDE RECORDS SUMMARY | 2024-05-15 12:54 | XMS_ITS | Encounter Summary ---
Author Organization [facility] Address [facility] [place] [address] Care Team Providers Care Sole Splitter Name Role Phone Che Sharpe Primary Care Provider + Encounter Details Date Type Department Care Team (Late st Contact Info) Description 04/28/2024 Orders Only Hematology [place] [address] Oksana Payne APRN [facility] DR HEMATOLOGY AND ONCOLOGY [place] [phone] Social History Tobacco Use Types Packs/Day Years [...] as of this encounter Progress Notes * Oksana Payne APRN - 04/28/2024 8:41 AM EST Images from the original note were not included. Date: 04/28/24 Patient Name: Emma Min : 1980 Diagnosis: Hemochromatosis Referral to [site]: [facility] Orders: [x] Draw 500ml of blood once every 3-4 months , next one due May 05, 2024 [x] Hold for Hemoglobin less than 11g/dL or Ferritin <20 LABS: [x] Check ferritin prior to every phlebotomies (goal is ferritin <100) [x] Check H/H prior to every phlebotomy. . Oksana Payne, MSN, BEATER ROOM SUPERVISOR [facility] Hematology/[place] [address] Pager: [phone] 04/28/24 documented in this encounter Plan of Treatment Upcoming Encounters Date Type Department Care Team (Late st Contact Info) Description 05/13/2025 4:00 PM EST TH Visit (TeleHealth) Hematology [place] [address] Pelon Wisdom MD [facility] DR [place] [address] documented as of this encounter Visit Diagnoses Not on filedocumented in this encounter Care Teams Sole Splitter Relationship Specialty Start Date End Date Che Sharpe PA [address] [place] [address] [place] [address] PCP - General Internal Medicine 04/20/20 documented as of this encounter
--- OUTSIDE RECORDS SUMMARY | 2024-05-15 12:54 | XMS_ITS | Encounter Summary ---
Author Organization [facility] [address] Care Team Providers Care Loop Tender Name Role Phone Che Sharpe Primary Care Provider + Reason for Visit * Reason Comments Procedure * Consultation (Routine) - Closed Specialty Diagnoses / Procedures Referred By Contlaura t Referred To Contact Diagnoses Hemochromatosis associated with compound heterozygous mutation in HFE gene Pelon Wisdom MD [facility] DR HEMATOLOGY [place] [address] [facility] [place] [address] Referral ID Status Reason Start Date Expiration Date V isits Requested Visits Authorized [id number] Closed Consult, Test & Treat 08/08/2022 08/08/2023 3 3 Encounter Details Date Type Department Care Team (Latest Contact Info) Description 05/02/2023 10:30 AM EST - 05/02/2023 11:59 PM [facility] Hospital Encounter [place] [address] Hemochromatosis, unspecified hemochromatosis type Discharge [...] Blood-Glucose Sensor (Dexcom G6 Sensor) Device by [employer].(Non-Drug; Combo Route) route. omeprazole (PriLOSEC) 40 mg Capsule, Delayed Release(E.C.) Take 40 mg by mouth 2 times daily. 11/28/2021 Ozempic 1 mg/dose (4 mg/3 mL) Pen Injector INJECT 1 MG UNDER THE SKIN ONCE A WEEK 07/14/2021 nitrofurantoin (Macrobid) 100 mg Capsule TAKE ONE CAPSULE BY MOUTH EVERY DAY NEEDED 07/07/2021 ibuprofen (Advil;Motrin) 800 mg Tablet Take 800 [...] Low blood sugar. 90 tablet 11 11/07/2016 medroxyPROGESTERone (Depo-PROVERA) 150 mg/mL Suspension 04/03/2021 05/14/2024 documented as of this encounter Progress Notes [...] 1240 FERRITIN 42 51 51 50 Ana Renee DO 05/02/2023 documented in this encounter Plan of Treatment Upcoming Encounters Date Type Department Care Team (Late st Contact Info) Description 05/13/2025 4:00 PM EST TH Visit (TeleHealth) [place]ematology [place] [address] Pelon Wisdom MD [facility] DR HEMATOLOGY [place] [address] Scheduled Orders Name Type Priority Associated Diagnoses Orde r Schedule POCT [facility] Point of Care Testing Routine Hemochromatosis, unspecified hemochromatosis type Ordered: 05/02/2023 documented as of this encounter Procedures Procedure Name Priority Date/Time Associated Diagnosis Comments FERRITIN Routine 05/02/2023 12:15 PM EST Hemochromatosis, unspecified hemochromatosis type documented in this encounter Results * Ferritin (05/02/2023 12:15 PM EST) Ferritin 42 6 - 175 ng/mL [facility] Comment: Please note that as of 03/27/2023, the reference intervals for Ferritin have been updated. Blood 05/02/2023 12:1 5 PM EST 05/02/2023 12:29 PM EST Narrative Resulting Agency Comment Spec In Lab Kolton Boss MD CHEMISTRY ORDERABLES [facility] [place] [address] documented in this encounter Visit Diagnoses Diagnosis [...] mLs documented in this encounter Care Teams Loop Tender Relationship Specialty Start Date End Date Che Sharpe PA [address] [place] [address] [place] [address] PCP - General Internal Medicine 04/20/20 documented as of this encounter
--- OUTSIDE RECORDS SUMMARY | 2024-05-15 12:54 | XMS_ITS | Encounter Summary ---
Author Organization [facility] Address [facility] [place] [address] Care Team Providers Care Food And Beverage Outlets Manager Name Role Phone Che Sharpe Primary Care Provider + Encounter Details Date Type Department Care Team (Late st Contact Info) Description 10/03/2023 Orders Only Pathology [facility] [place] [address] Shivani Castañeda, DO Social History Tobacco Use Types Packs/Day Years [...] TH Visit (TeleHealth) Hematology [place] [address] Pelon Wisdom MD [facility] DR [place] [address] documented as of this encounter Visit Diagnoses Not on filedocumented in this encounter Care Teams Food And Beverage Outlets Manager Relationship Specialty Start Date End Date Che Sharpe PA [address] [place] [address] [place] [address] PCP - General Internal Medicine 04/20/20 documented as of this encounter
--- OUTSIDE RECORDS SUMMARY | 2024-05-15 12:54 | XMS_ITS | Encounter Summary ---
Author Organization [facility] [place] [place] [address] Care Team Providers Care Power Plant Supervisor Name Role Phone Che Sharpe Primary Care Provider + Encounter Details Date Type Department Care Team (Late st Contact Info) Description 08/23/2023 External Results Hematology and Oncology at [facility] [place] [phone] Demetria Alberto, RN Social History Tobacco Use [...] TH Visit (TeleHealth) Hematology [place] [address] Pelon Wisdom MD [facility] HEMATOLOGY [place] [address] documented as of this encounter Procedures Procedure Name Priority Date/Time Associated Diagnosis Comments HEMOGLOBIN Routine 08/20/2023 1:05 PM EDT documented in this encounter Results * Hemoglobin (08/20/2023 1:05 PM EDT) Hemoglobin 13.4 11.2 - 15.7 [facility] Hematocrit 38.4 36.0 - 46.0 [facility] Ferritin 66 8 - 252 [facility] Blood 08/20/2023 1:05 PM EDT Historical Provider HEMATOLOGY ORDERA BL[facility] documented in this encounter Visit Diagnoses Not on filedocumented in this encounter Care Teams Power Plant Supervisor Relationship Specialty Start Date End Date Che Sharpe PA [address] [place] [address] [place] [address] PCP - General Internal Medicine 04/20/20 documented as of this encounter
--- OUTSIDE RECORDS SUMMARY | 2024-05-15 12:54 | XMS_ITS | Encounter Summary ---
Author Organization [facility] [place] [address] Care Team Providers Care Animal Nutrition Consultant Name Role Phone Che Sharpe Primary Care Provider + Encounter Details Date Type Department Care Team (Late st Contact Info) Description 04/18/2023 External Results Hematology and Oncology at [facility] [place] [phone] Demetria Alberto, RN Social History Tobacco Use [...] TH Visit (TeleHealth) Hematology [place] [address] Pelon Wisdom MD [facility] [address] [place] [address] documented as of this encounter Procedures Procedure [...] on filedocumented in this encounter Care Teams Animal Nutrition Consultant Relationship Specialty Start Date End Date Che Sharpe PA [address] [place] [address] [place] [address] PCP - General Internal Medicine 04/20/20 documented as of this encounter
--- OUTSIDE RECORDS SUMMARY | 2024-05-15 12:54 | XMS_ITS | Encounter Summary ---
Author Organization [facility] Address [facility] [place] [address] Care Team Providers Care Demolitionist Name Role Phone Che Sharpe Primary Care [...] TH Visit (TeleHealth) Hematology [place] [address] Pelon Wisdom MD [facility] [place] [address] documented as of this encounter Visit Diagnoses Not on filedocumented in this encounter Care Teams Demolitionist Relationship Specialty Start Date End Date Che Sharpe PA [address] [place] [address] [place] [address] PCP - General Internal Medicine 04/20/20 documented as of this encounter
--- OUTSIDE RECORDS SUMMARY | 2024-05-15 12:54 | XMS_ITS | Encounter Summary ---
Author Organization [facility] Address [facility] [place] [address] Care Team Providers Care Soda Jerker Name Role Phone Che Sharpe Primary Care Provider + Encounter Details Date Type Department Care Team (Latest Contact Info) Description 05/13/2024 2:30 PM EST TH Visit (TeleHealth) Hematology [place] [address] Pelon Wisdom MD [facility] DR HEMAT[place] [address] Hemochromatosis associated with compound heterozygous mutation in [...] of this encounter Progress Notes * Pelon Wisdom MD - 05/13/2024 2:30 PM EST Images from the original note were not included. HEMATOLOGY FOLLOW UP VISIT NOTE DATE OF VISIT : 05/13/24 HISTORY OF PRESENT ILLNESS Emma Min is a 44 y.o. female with PMH of type II [...] well since last seen Last phlebotomy was several months ago, ? In 07/2023. She reports tolerating phlebotomies well. Otherwise doing well, no other new health concerns Following the life style modification for iron overload. No changes in medical Hx or meds. PROBLEM LIST Patient Active Problem List Diagnosis [...] Diarrhea PERSONAL and SOCIAL HISTORY Lives in: [place], [place], [place] from [facility]. [facility] is [facility] closest hospital. Work history: She works in an [employer] that makes [employer]. ETOH: occasional Smoking: No HIPPA Contact Permission: [...] EXAM GENERAL: Emma Min is a well-appearing 44 y.o. female in no acute distress. PSYCHIATRIC: normal affect and mood Performed as this is telehealth visit LABORATORY No results found for this or any previous visit (from the past 72 hour(s)). Recent Labs 08/20/23 1305 FERRITIN 66 ASSESSMENT & PLANS Emma Min is a 44 y.o. female with PMH of type II DM,here for f/up of # Hemochromatosis. - compound heterozygous for HFE. She was supposed to be on phlebotomies of 500 ml volume every 3 months at [facility] with ferritin well-maintained <100. It seems, the last one was in 07/2023 and no labs since then. She is schedule for labs this Saturday followed by phlebotomy. Goal ferritin ~ 100 (not too strict at 50-100 as she is not homozygous for C282Y) Will continue to monitor ferritin, H&H prior to each phlebotomy. Per [facility] rules for at least annual provider visits, we will see her back in 12 months with CBC, iron studies. TH is fine. Pelon Wisdom MD [facility] 05/13/24 CC: Che Sharpe, Che Gould * Pelon Wisdom MD - 05/13/2024 2:30 PM EST Images from the original note were not included. Date: 05/14/24 Patient Name: Emma Min : 1980 Diagnosis: Hemochromatosis Referral to [site]: [facility] Orders: [x] Draw 500ml of blood once every 3-4 months , next one due now. [x] Hold for Hemoglobin less than 11g/dL and/or Ferritin < 50 LABS: [x] Check ferritin and H/H prior to every phlebotomy. . Pelon Wisdom MD [facility] 05/14/24 documented in this encounter Plan of Treatment Upcoming Encounters Date Type Department Care Team (Late st Contact Info) Description 05/13/2025 4:00 PM EST TH Visit (TeleHealth) [place]ology [place] [phone] Pelon Wisdom MD [facility] DR [place]OLOG[place] [address] documented as of this encounter Visit Diagnoses Diagnosis Hemochromatosis associated with compound heterozygous mutation in HFE gene documented in this encounter Care Teams Soda Jerker Relationship Specialty Start Date End Date hCe Sharpe PA [address] [place] [address] [place] [address] PCP - General Internal Medicine 04/20/20 documented as of this encounter
--- OUTSIDE RECORDS SUMMARY | 2024-05-15 12:54 | XMS_ITS | Clinical Summary ---
Author Organization [facility] Address [facility] [place] [address] Care Team Providers Care Project Manager Name Role Phone Che Sharpe Primary [...] BY MOUTH EVERY DAY NEEDED 07/07/2021 Active insulin pump cart,auto,BT/cntr (OMNIPOD 5 G6 INTRO KIT, GEN 5, SUBQ) Inject subcutaneously. Active Blood-Glucose Sensor (Dexcom G6 Sensor) Device by [facility].(Non-Drug; Combo Route) route. Active omeprazole (PriLOSEC) 40 [...] Encounters Date Type Department Care Team Description 05/13/2024 2:30 PM EST TH Visit (TeleHealth) [place] [address] Pelon Wisdom MD Hemochromatosis associated with compound heterozygous mutation in HFE gene 04/28/2024 Orders Only [place]emat[place] [phone] Oksana Payne APRN from Last 3 Months Immunizations Name Administration Dates Next Due Influenza Trivalent, Preservative Free 7 Influenza Unspecified Formulation 01/31/2016 Tdap (Adacel, Boostrix) 01/14/2017 Family History Medical History Relation Comments [...] TH Visit (TeleHealth) [place] [address] Pelon Wisdom MD [facility] DR HEMATOLOGY [place] [address] Health Maintenance Due Date Last Done Comments HIV screen 1999 Hepatitis C Screening 1999 Hepatitis B vaccine (0-59 yrs) (1) 02/28/2000 Pneumococcal Vaccine: At-Ris k 5-49yrs (1 of 2 - PCV) 02/28/2000 DM Urine Microalbumin yearly 11/07/2017 11/07/2016 Breast Cancer Share Decision Needed 2021 Breast Cancer screening 2021 DM Opthalmology Exam 05/16/2021 05/16/2020, 02/23/20 17 HPV test 05/16/2022 05/16/2017 PAP Smear 05/16/2022 05/16/2017 DM Hemoglobin A1c 6 month 06/03/20222021, 08/30/2017, 04/24/2017, Additional history exists DM Creatinine yearly 12/01/2022 12/01/2021, 09/01/2017, 08/29/2017, Additional history exists Covid-19 Vaccine (2023-2 5 season) 2023 03/06/2021, 08/08/2020, 07/13/2020 Influenza (Flu) vaccine (1 o f 1 - Influenza standard series) 12/22/2023 01/14/2017, 01/31/2016 Lipid Screening 12/01/2026 12/01/2021 Tetanus/Diphtheria/Pertussis Vaccines (2 - Td or Tdap) 01/14/2027 01/14/2017 Procedures Procedure Name Priority Date/Time Associated Diagnosis Comments LIPID PANEL (NO REFLEX) Routine 12/01/2021 11:02 AM EDT Type 2 diabetes mellitus without complication, unspecified whether [facility] insulin use BASIC METABOLIC PANEL Routine 12/01/2021 11:02 AM EDT Type 2 diabetes mellitus without complication, unspecified whether [facility] insulin use HC HEMOGLOBIN A1C Routine 12/01/2021 11: 02 AM EDT Type 2 diabetes mellitus without complication, unspecified whether assistant terminal manager insulin use HPV Routine 05/16/2017 4:15 PM EST ROLL CUTTING OPERATOR CYTOLOGY FINAL REPORT Routine 05/16/2017 4:15 PM EST U ALBUMIN/CRE RATIO Routine 11/07/2016 2 :57 PM EDT Type 2 diabetes mellitus without complication, with long-term current use of insulin from Last 3 Months or Most Recently Relevant to Health Maintenance Results * Lipid Panel (No Reflex) (12/01/2021 11:02 AM EDT) Pathologist [facility] Cholesterol, Total 193 mg/dL [facility] Comment: Lower Risk: <200 mg/dL Average Risk: 200-239 mg/dL Higher Risk: >lm=978 mg/dL Triglyceride 159 mg/dL [facility] Comment: Average Risk/Lower Risk: <150 mg/dL Borderline High Risk: 150-199 mg/dL High Risk: 200-499 mg/dL Very High Risk: >qt=512 mg/dL HDL Cholesterol 34 mg/dL [facility] Comment: Males: ?? Higher Risk: <40 mg/dL Females: ?? Higher Risk: <50 mg/dL LDL Cholesterol 127 mg/dL [facility] Comment: Lowest Risk: <100 mg/dL Lower Risk: 100-129 mg/dL Borderline High Risk: 130-159 mg/dL High Risk: 160-189 mg/dL Very High Risk: >kw=693 mg/dL Cholesterol/HDL Ratio 5.7 ratio [facility] Lipid Interpretation See Note [facility] Comment: Lipid management should be guided by a patient? s ASCVD risk, goals and preferences. ACC/AHA Guidelines recommend high intensity statin if clinical ASCVD or LDL greater than or equal to 190 mg/dL. http://Likewise Softwareurl.com/KZK-SNR-Ystwltkxg Adults aged 40-75 with LDL 70-189 mg/dL should have their 10 year ASCVD risk estimated with the ACC/AHA ASCVD risk solar sales estimator http://tools.acc.org/ADZKN-Bmzg-Mjvekgygs/ Statin should be discussed if risk greater [...] In Lab Che MACKEY CHEMISTRY ORDERA BLES [facility] [place] [address] * (ABNORMAL) Hemoglobin A1c (12/01/2021 11:02 AM EDT) Hemoglobin A1c 6.3(H) 4.3 - 5.6 % [facility] Comment: Reference Range: 4.3 - [...] Mellitus, Diabetes Care 2013; 36: Suppl. 1, C17-75 Estimated Average Glucose 135 mg/dL [facility] Comment: eAG equivalents for HbA1c [...] into estimated average glucose values. ??Diabetes Care 2008:31(8):0018-9667. Blood 12/01/2021 11:0 2 AM EDT 12/01/2021 11:20 AM EDT Narrative Resulting Agency Comment Spec In Lab Che MACKEY CHEMISTRY ORDERA PORSCHES [facility] [place] [address] * (ABNORMAL) Basic Metabolic Panel (non-fasting) (12/01/2021 11:02 AM EDT) Glucose 135 65 - 199 mg/dL [facility] Comment:Diabetes: >=200 mg/d L plus symptoms Blood Urea Nitrogen 7(L) 8 - 18 mg/dL [facility] Creatinine 0.70 0.70 - 1.20 mg/dL [facility] Sodium 140 135 - 145 mmol/L [facility] Potassium 3.6 3.5 - 5.0 mmol/L [facility] Comment: Please note: ??Patients with WBC >100,000 may have falsely elevated Potassium levels. ??For accurate Potassium quantification in these patients send serum separator tube (gold top) for subsequent determinations. ??Contact the Clinical Chemistry Laboratory if there are any questions. Chloride 106 98 - 107 mmol/L [facility] Carbon Dioxide 24 22 - 31 mmol/L [facility] Anion Gap 10 5 - 15 mmol/L [facility] Calcium 8.8 8.5 - 10.5 mg/dL [facility] Est Glomerular Filtration Rate 112 >=60 mL/min/1. 73 m?? [facility] Comment: This patient's estimated GFR [...] Spec In Lab Che MACKEY CHEMISTRY ORDERA [facility] [place] [address] * HPV (05/16/2017 4:15 PM EST) HPV16 NEGATIVE NEGATIVE [facility] HPV 18 NEGATIVE NEGATIVE [facility] HPV Other HR NEGATIVE NEGATIVE [facility] HPV Interpretation See Comment [facility] Comment: NEGATIVE for high-risk HPV [...] Resulting Agency Comment Spec In Lab Rosy Bennett Daysi [facility] PATH[facility]Y/CYTOLOGY O RDERAMARCUS [facility] [place] [address] * Human Services Case Manager Cytology Final Report (05/16/2017 4:15 PM EST) Human Services Case Manager Cytology Final Report [id number] ? Location: The signing pathologist has (i) examined the relevant preparation(s) for the specimen(s) and (ii) rendered or confirmed the diagnosis(es). . ? Human Services Case Manager Final DIAGNOSIS Normal Negative for Intraepithelial Lesion or Malignancy (NILM). For consensus guidelines for the management of cervical cancer screening test results, please see: ?? http://www.asccp.o rg . Electronically signed by: ??Douglas PARDO(ASCP)Geena Verified: ??05/24/2017 ?Lease Buyer Performed at: ??-[facility] Dept. [place], [place], [place] DISCUSSION Shift in ashley suggestive of [...] Clinical Genomics and Advanced Technology (CGAT) at [facility]. ? - Bentley Ross, PhD, [facility], Director-[facility] STATEMENT OF ADEQUACY Specimen submitted is satisfactory. Endocervical component present. CLINICAL INFORMATION HPV Option: ?Concurrent HPV and Pap Preparation: ? Liquid based Pap Specimen Source: ? Cervical/Endocervi esteban/Vaginal LMP: ? 05/01/2017 Hormones?: ? No Hysterectomy?: ? No ?: ? No ?: ? No I.U.D.?: ? No Pelvic Radiation: ?No Prior ROLL CUTTING OPERATOR Therapy?: ?No Hist Abnl Pap/Biopsy?: ?? No Hist of HPV Vaccine?: ?No Hist of Smoking?: ?No Hist of ACE exposure?: ?? No . CLINICAL INFORMATION ICD Diagnosis: ? Z12.4 Encounter for screening for malignant neoplasm of cervix Clinical Data, Significant Therapy and Clinical Impression ?? : ?_ This Pap Test has been evaluated with the assistance of the Exabloxp Pap Test Imaging System. Note: The Pap test is a screening test for cervical cancer with an inherent false-negative rate dependent upon several variables. For further information please contact the [facility]. Reference: Brett CARTER. Lever Tender of Pap Smear Results. In: Yessenia BS, [facility], ed. The Pap Smear. [place]: Shahram, 2002: 71-77. [facility] 05/16/2017 4:15 PM EST Rosy Tavarez GO PATHOLOGY/CYTOLOGY O RDERABLES Performing Organization Address City/[facility]/ZIP Co de Phone Number [facility] [place] [address] * U Albumin/Cre Ratio (11/07/2016 2:57 PM EDT) Albumin / Creatinin Ratio, Urine 4 0 - 29 mcg/mg Cr [facility] Comment: Reference Ranges: <30 mcg/mg: [...] 2, 357? 362 Albumin, Urine 9.9 mg/L [facility] Creatinine, Urine 224 mg/dL [facility] Urine specimen (specimen) 11/07/2016 2:57 PM EDT 11/07/2016 3:07 PM EDT Narrative Resulting Agency Comment Spec In Lab Giacomo Obrien DO URINE ORDERABLES Performing Organization Address City/[facility]/ZIP Co de Phone Number [facility] [place] [address] from Last 3 Months or Most Recently Relevant to Health Maintenance Advance Directives * Full Code (Latest Code Status on File) Date Activated Date Inactivated Comments 09/01/2017 1:27 AM 09/01/2017 4:51 PM Question Answer Comments Does patient have capacity to make decision: Yes Care Teams Project Manager Relationship Specialty Start Date End Date Che Sharpe PA [address] [place] [address] [place] [address] PCP - General Internal Medicine 04/20/20
--- OUTSIDE RECORDS SUMMARY | 2024-05-15 12:54 | XMS_ITS | Encounter Summary ---
Author Organization [facility] Address [facility] [place] [address] Care Team Providers Care Bessemer Converter Blower Name Role Phone Che Sharpe Primary Care Provider + Encounter Details Date Type Department Care Team (Latest Contact Info) Description 05/03/2023 4:00 PM EST TH Visit (TeleHealth) [place]ematology [place] [address] Pelon Wisdom MD [facility] DR H[place]AT[place] [address] Hemochromatosis associated with compound heterozygous mutation in [...] Diarrhea PERSONAL and SOCIAL HISTORY Lives in: [place], [place], [place] [facility] is the closest hospital. Work history: She works in an [employer] that makes [employer]. ETOH: occasional Smoking: No HIPPA Contact Permission: [...] 500 ml volume every 3 months at [facility] and her ferritin is well-maintained <100. Phlebotomies were arranged at [facility] but due to her difficulty with IV access, she has been coming to the [facility] for phlebotomies. She now hopes to get them at [facility]. Accordingly, we will set them up. She is advised to drink a lot of fluids prior to each phlebotomy. Will continue to monitor ferritin, H&H prior to each phlebotomy. F/up in 18 months with CBC, iron studies. Pelon Tomlinson MD [facility] 05/03/23 CC: NARENDRA Gray Elizabeth C * Pelon Tomlinson MD - 05/03/2023 4:00 PM EST Date: 05/03/23 Patient Name: Emma Min : 1980 Diagnosis: Hemochromatosis Referral to [site]: [facility] Orders: [x] Draw 500ml of blood once every 3-4 months , next one due late July,. [x] Hold for Hemoglobin less than 11g/dL or Ferritin <20 LABS: [x] Check ferritin prior to every phlebotomies (goal is ferritin <100) [x] Check H/H prior to every phlebotomy. . Oksana Payne, MSN, SENIOR BI ARCHITECT [facility] Hematology/[place] [address] Pager: [phone] 05/03/23 documented in this encounter Plan of Treatment Upcoming Encounters Date Type Department Care Team (Late st Contact Info) Description 05/13/2025 4:00 PM EST TH Visit (TeleHealth) Hematology [place] [address] Pelon Wisdom MD [facility] DR H[place]ATOLOG[place] [address] documented as of this encounter Visit Diagnoses Diagnosis Hemochromatosis associated with compound heterozygous mutation in HFE gene documented in this encounter Care Teams Bessemer Converter Blower Relationship Specialty Start Date End Date Che Sharpe PA [address] [place] [address] [place] [address] PCP - General Internal Medicine 04/20/20 documented as of this encounter
--- OUTSIDE RECORDS SUMMARY | 2024-05-15 12:54 | XMS_ITS | Encounter Summary ---
Author Organization [facility] [place] [address] Care Team Providers Care Environmental Services Floor Tech Name Role Phone Che Sharpe Primary Care Provider + Reason for Visit * Reason Comments Procedure * Consultation (Routine) - Closed Specialty Diagnoses / Procedures Referred By Contlaura t Referred To Contact Diagnoses Hemochromatosis associated with compound heterozygous mutation in HFE gene Pelon Wisdom MD [facility] DR HEMATOLOGY [place] [address] [facility] [place] [address] Referral ID Status Reason Start Date Expiration Date V isits Requested Visits Authorized [id number] Closed Consult, Test & Treat 08/08/2022 08/08/2023 3 3 Encounter Details Date Type Department Care Team (Latest Contact Info) Description 02/07/2023 9:24 AM EDT - 02/07/2023 11:59 PM EDT Hospital Encounter [place] [address] Hemochromatosis, unspecified hemochromatosis type Discharge [...] Blood-Glucose Sensor (Dexcom G6 Sensor) Device by [employer].(Non-Drug; Combo Route) route. omeprazole (PriLOSEC) 40 mg [...] TH Visit (TeleHealth) [place]ology [place] [address] Pelon Wisdom MD [facility] DR HEMATOLOGY [place] [address] Scheduled Orders Name Type Priority Associated Diagnoses Orde r Schedule POCT HGB Point of Care Testing Routine Hemochromatosis, unspecified hemochromatosis type Ordered: 02/07/2023 documented as of this encounter Procedures Procedure Name Priority Date/Time Associated Diagnosis Comments FERRITIN Routine 02/07/2023 10:51 AM EDT Hemochromatosis, unspecified hemochromatosis type documented in this encounter Results * Ferritin (02/07/2023 10:51 AM EDT) Ferritin 51 15 - 150 ng/mL [facility] Comment: Pediatric reference ranges not verified at [facility], interpret with caution. Reference ranges for females greater than 50 years of age approach values for men, i.e., 30-400 ng/mL. Blood 02/07/2023 10:5 1 AM EDT 02/07/2023 11:04 AM EDT Narrative Resulting Agency Comment Spec In Lab Kolton Estrella MD CHEMISTRY ORDERABLES Performing Organization Address City/State/[facility] Co de Phone Number [facility] [place] [address] documented in this encounter Visit Diagnoses Diagnosis Hemochromatosis, unspecified hemochromatosis type documented in this encounter Care Teams Environmental Services Floor Tech Relationship Specialty Start Date End Date Che Sharpe PA [address] [place] [address] [place] [address] PCP - General Internal Medicine 04/20/20 documented as of this encounter
--- OUTSIDE RECORDS SUMMARY | 2024-05-15 12:54 | XMS_ITS | Encounter Summary ---
Author Organization [facility] [place] [address] Care Team Providers Care National Van Truck Driver Name Role Phone Che Sharpe Primary Care Provider + Encounter Details Date Type Department Care Team (Late st Contact Info) Description 02/15/2023 Telephone Hematology [place] [phone] Morena Martin RN Social History Tobacco Use [...] 02/15/2023 2:34 PM EDT Message received from secretary bookkeeper: WALK IN SERVICE Services to be provided for pt are: LABS (CBC,DIFF,JUAN,IRON,TIBC) AT [facility] 02/15OR 02/18/23 Orders and necessary supporting documents faxed to [phone] SENT VDP MESSAGE TO PATIENT W/INSTRUCTIONS Telehealth visit 02/21/23 documented in this encounter Plan of Treatment Upcoming Encounters Date Type Department Care Team (Late st Contact Info) Description 05/13/2025 4:00 PM EST TH Visit (TeleHealth) Hematology [place] [address] Pelon Wisdom MD [facility] DR [place] [address] documented as of this encounter Visit Diagnoses Not on filedocumented in this encounter Care Teams National Van Truck Driver Relationship Specialty Start Date End Date Che Sharpe PA [address] [place] [address] [place] [address] PCP - General Internal Medicine 04/20/20 documented as of this encounter
--- OUTSIDE RECORDS SUMMARY | 2024-05-15 12:54 | XMS_ITS | Encounter Summary ---
Author Organization [facility] [place] [address] Care Team Providers Care Gas Analyst Name Role Phone Che Sharpe Primary Care Provider + Encounter Details Date Type Department Care Team (Late st Contact Info) Description 04/01/2023 Orders Only Hematology [place] [address] Morena Martin RN Hemochromatosis associated with compound [...] TH Visit (TeleHealth) Hematology [place] [address] Pelon Wisdom MD [facility] DR [place] [address] Scheduled Orders Name Type Priority Associated Diagnoses [...] gene documented in this encounter Care Teams Gas Analyst Relationship Specialty Start Date End Date Che Sharpe PA [address] [place] [address] [place] [address] PCP - General Internal Medicine 04/20/20 documented as of this encounter
--- OUTSIDE RECORDS SUMMARY | 2024-05-15 12:54 | XMS_ITS | Encounter Summary ---
Author Organization [facility] Address [facility] [place] [address] Care Team Providers Care Certified Art Therapist Name Role Phone Che Sharpe Primary Care Provider + Reason for Referral * Consultation (Routine) - Closed Specialty Diagnoses / Procedures Referred By Contac t Referred To Contact Hematology and Oncology Diagnoses Hemochromatosis associated with compound heterozygous mutation in HFE gene Pelon Wisdom MD [facility] DR HEMATOLOGY [place] [address] Referral ID Status Reason Start Date Expiration Date V isits Requested Visits Authorized [id number] Closed Consult, Test & Treat 02/12/2023 08/11/2023 1 1 Encounter Details Date Type Department Care Team (Late st Contact Info) Description 02/12/2023 Orders Only Hematology [place] [address] Pelon Wisdom MD [facility] DR HEMATOLOGY [place] [address] Hemochromatosis associated with compound heterozygous mutation in [...] TH Visit (TeleHealth) Hematology [place] [address] Pelon Wisdom MD [facility] HEMATOLOGY [place] [address] Scheduled Referrals Name Type Priority Associated Diagnoses Orde r Schedule Referral to Hematology and Oncology Outpatient Referral Routine Hemochromatosis associated with compound heterozygous mutation in HFE gene Ordered: 02/12/2023 documented as of this encounter Visit Diagnoses Diagnosis Hemochromatosis associated with compound heterozygous mutation in HFE gene documented in this encounter Care Teams Certified Art Therapist Relationship Specialty Start Date End Date Che Sharpe PA [address] [place] [address] [place] [address] PCP - General Internal Medicine 04/20/20 documented as of this encounter
--- OUTSIDE RECORDS SUMMARY | 2024-05-15 12:54 | XMS_ITS | Encounter Summary ---
Author Organization [facility] Address [facility] [place] [address] Care Team Providers Care Transitional Living Specialist Name Role Phone Che Sharpe Primary Care [...] TH Visit (TeleHealth) [place]ology [place] [address] Pelon Wisdom MD [facility] [place] [address] documented as of this encounter Visit Diagnoses Not on filedocumented in this encounter Care Teams Transitional Living Specialist Relationship Specialty Start Date End Date Che Sharpe PA [address] [place] [address] [place] [address] PCP - General Internal Medicine 04/20/20 documented as of this encounter
--- OUTSIDE RECORDS SUMMARY | 2024-05-15 12:55 | XMS_ITS | Encounter Summary ---
Author Organization [facility] Address [facility] [place] [address] Care Team Providers Care Promotions Executive Name Role Phone Che Sharpe Primary [...] TH Visit (TeleHealth) [place]ematology [place] [address] Pelon Wisdom MD [facility] [place] [address] documented as of this encounter Visit Diagnoses Not on filedocumented in this encounter Care Teams Promotions Executive Relationship Specialty Start Date End Date Che Sharpe PA [address] [place] [address] [place] [address] PCP - General Internal Medicine 04/20/20 documented as of this encounter
--- OUTSIDE RECORDS SUMMARY | 2024-05-15 12:55 | XMS_ITS | Encounter Summary ---
Author Organization [facility] [place] [address] Care Team Providers Care Security Technician Name Role Phone Che Sharpe Primary Care Provider + Encounter Details Date Type Department Care Team (Late st Contact Info) Description 03/20/2022 Telephone [place] [phone] Donald Benavides Social History Tobacco Use Types [...] Return calls can be handled by: Endoscopy material scheduler [phone] * Telephone Encounter - Donald Benavides - 03/20/2022 2:32 PM EST nd/Outbound: Outbound Spoke to Patient/Left Message: Left message Notes: Outbound call to patient to schedule outstanding colonoscopy ordered by MIGUEL Zelaya. Left message asking for callback to schedule. Return calls can be handled by: Endoscopy material scheduler [phone] documented in this encounter Plan of Treatment Upcoming Encounters Date Type Department Care Team (Late st Contact Info) Description 05/13/2025 4:00 PM EST TH Visit (TeleHealth) Hematology [place] [address] Pelon Wisdom MD [facility] HEMATOLOGY [place] [address] documented as of this encounter Visit Diagnoses Not on filedocumented in this encounter Care Teams Security Technician Relationship Specialty Start Date End Date Che Sharpe PA [address] [place] [address] [place] [address] PCP - General Internal Medicine 04/20/20 documented as of this encounter
--- OUTSIDE RECORDS SUMMARY | 2024-05-15 12:55 | XMS_ITS | Encounter Summary ---
Author Organization [facility] [place] [address] Care Team Providers Care Hand Shoes Sewer Name Role Phone hCe Sharpe Primary Care Provider + Reason for Visit * Reason Comments Procedure * Consultation (Routine) - Closed Specialty Diagnoses / Procedures Referred By Contlaura t Referred To Contact Diagnoses Hemochromatosis associated with compound heterozygous mutation in HFE gene Pelon Wisdom MD [facility] [place] [address] [facility] [place] [address] Referral ID Status Reason Start Date Expiration Date V isits Requested Visits Authorized [id number] Closed Consult, Test & Treat 08/15/2021 08/15/2022 18 18 Encounter Details Date Type Department Care Team (Latest Contact Info) Description 05/11/2022 1:41 PM EST - 05/11/2022 11:59 PM [facility] Hospital Encounter [place] [address] Hemochromatosis, unspecified hemochromatosis type Discharge [...] Blood-Glucose Sensor (Dexcom G6 Sensor) Device by [facility]Non-Drug; Combo Route) route. omeprazole (PriLOSEC) 40 mg [...] TH Visit (TeleHealth) Hematology [place] [address] Pelon Wisdom MD [facility] [place] [address] Scheduled Orders Name Type Priority Associated Diagnoses [...] EST) Ferritin 63 15 - 150 ng/mL [facility] Comment: Pediatric reference ranges not verified at [facility] [place] interpret with caution. Reference ranges for females greater than 50 years of age approach values for men, i.e., 30-400 ng/mL. Blood 05/11/2022 2:50 PM EST 05/11/2022 3:02 PM EST Narrative Resulting Agency Comment Spec In Lab Kolton Estrella MD CHEMISTRY ORDERABLES Performing Organization Address City/State/[facility] Co de Phone Number [facility] [place] [address] documented in this encounter Visit Diagnoses Diagnosis Hemochromatosis, unspecified hemochromatosis type documented in this encounter Care Teams Hand Shoes Sewer Relationship Specialty Start Date End Date Che Sharpe PA [address] [place] [address] [place] [address] PCP - General Internal Medicine 04/20/20 documented as of this encounter
--- OUTSIDE RECORDS SUMMARY | 2024-05-15 12:55 | XMS_ITS | Encounter Summary ---
Author Organization [facility] Address [facility] [place] [address] Care Team Providers Care Brattice Builder Name Role Phone Che Sharpe Primary Care Provider + Encounter Details Date Type Department Care Team (Late st Contact Info) Description 03/27/2022 Telephone [place] [phone] Kelly Amaya Social History Tobacco Use Types [...] TH Visit (TeleHealth) [place] [address] Pelon Wisdom MD [facility] DR HEMATOLOGY [place] [address] documented as of this encounter Visit Diagnoses Not on filedocumented in this encounter Care Teams Brattice Builder Relationship Specialty Start Date End Date Che Sharpe PA [address] [place] [address] [place] [address] PCP - General Internal Medicine 04/20/20 documented as of this encounter
--- OUTSIDE RECORDS SUMMARY | 2024-05-15 12:55 | XMS_ITS | Encounter Summary ---
Author Organization [facility] Address [facility] [place] [address] Care Team Providers Care Production Maintenance Mechanic Name Role Phone Che Sharpe Primary Care Provider + Encounter Details Date Type Department Care Team (Late st Contact Info) Description 12/01/2021 Transcribe [place] [phone] Che Sharpe PA [address] [place] [address], [place] [id number] Type 2 diabetes mellitus without complication, unspecified whether longterm insulin use Social History Tobacco Use Types [...] TH Visit (TeleHealth) [place]ematology [place] [address] Pelon Wisdom MD [facility] DR HEMATOLOGY [place] [address] Scheduled Orders Name Type Priority Associated Diagnoses Orde r Schedule Lab Use Only, Fax Request Lab Routine Type 2 diabetes mellitus without complication, unspecified whether longterm insulin use Expected: 12/01/2021 (Approximate), Expires: 12/01/2022 documented as of this encounter Results * (ABNORMAL) Basic Metabolic Panel (non-fasting) (12/01/2021 11:02 AM EDT) Glucose 135 65 - 199 mg/dL [facility] Comment:Diabetes: >=200 mg/d L plus symptoms Blood Urea Nitrogen 7(L) 8 - 18 mg/dL [facility] Creatinine 0.70 0.70 - 1.20 mg/dL [facility] Sodium 140 135 - 145 mmol/L [facility] Potassium 3.6 3.5 - 5.0 mmol/L [facility] Comment: Please note: ??Patients with WBC >100,000 may have falsely elevated Potassium levels. ??For accurate Potassium quantification in these patients send serum separator tube (gold top) for subsequent determinations. ??Contact the Clinical Chemistry Laboratory if there are any questions. Chloride 106 98 - 107 mmol/L [facility] Carbon Dioxide 24 22 - 31 mmol/L [facility] Anion Gap 10 5 - 15 mmol/L [facility] Calcium 8.8 8.5 - 10.5 mg/dL [facility] Est Glomerular Filtration Rate 112 >=60 mL/min/1. 73 m?? [facility] Comment: This patient's estimated GFR [...] Spec In Lab Che MACKEY CHEMISTRY ORDERA [facility] Organization Address City/State/ZIP Co de Phone Number [facility] [place] [address] * (ABNORMAL) Hemoglobin A1c (12/01/2021 11:02 AM EDT) Hemoglobin A1c 6.3(H) 4.3 - 5.6 % [facility] Comment: Reference Range: 4.3 - [...] Mellitus, Diabetes Care 2013; 36: Suppl. 1, S67-89 Estimated Average Glucose 135 mg/dL [facility] Comment: eAG equivalents for HbA1c [...] into estimated average glucose values. ??Diabetes Care 2008:31(8):9255-6387. Blood 12/01/2021 11:0 2 AM EDT 12/01/2021 11:20 AM EDT Narrative Resulting Agency Comment Spec In Lab Che MACKEY CHEMISTRY MYCHAL VELAZUQEZ [facility] [place] [address] * Lipid Panel (No Reflex) (12/01/2021 11:02 AM EDT) Cholesterol, Total 193 mg/dL [facility] Comment: Lower Risk: <200 mg/dL Average Risk: 200-239 mg/dL Higher Risk: >sd=881 mg/dL Triglyceride 159 mg/dL [facility] Comment: Average Risk/Lower Risk: <150 mg/dL Borderline High Risk: 150-199 mg/dL High Risk: 200-499 mg/dL Very High Risk: >sl=190 mg/dL HDL Cholesterol 34 mg/dL [facility] Comment: Males: ?? Higher Risk: <40 mg/dL Females: ?? Higher Risk: <50 mg/dL LDL Cholesterol 127 mg/dL [facility] Comment: Lowest Risk: <100 mg/dL Lower Risk: 100-129 mg/dL Borderline High Risk: 130-159 mg/dL High Risk: 160-189 mg/dL Very High Risk: >tb=203 mg/dL Cholesterol/HDL Ratio 5.7 ratio [facility] Lipid Interpretation See Note [facility] Comment: Lipid management should be guided by a patient? s ASCVD risk, goals and preferences. ACC/AHA Guidelines recommend high intensity statin if clinical ASCVD or LDL greater than or equal to 190 mg/dL. http://[employer].com/WOQ-CTQ-Jggdhjywv Adults aged 40-75 with LDL 70-189 mg/dL should have their 10 year ASCVD risk estimated with the ACC/AHA ASCVD risk building estimator http://tools.acc.org/XZRTN-Iwli-Vyleqyffb/ Statin should be discussed if risk greater [...] In Lab Che MACKEY CHEMISTRY ORDERA BLES [facility] [place] [address] documented in this encounter Visit Diagnoses Diagnosis Type 2 diabetes mellitus without complication, unspecified whether longterm insulin use documented in this encounter Care Teams Production Maintenance Mechanic Relationship Specialty Start Date End Date Che Sharpe PA [address] [place] [address] [place] [address] PCP - General Internal Medicine 04/20/20 documented as of this encounter
--- OUTSIDE RECORDS SUMMARY | 2024-05-15 12:55 | XMS_ITS | Encounter Summary ---
Author Organization [facility] [place] [address] Care Team Providers Care Sap Pi Developer Name Role Phone Che Sharpe Primary Care Provider + Encounter Details Date Type Department Care Team (Late st Contact Info) Description 01/24/2022 Orders Only Hematology [place] [phone] Oksana Payne APRN [facility] DR HEMATOLOGY [place] [address] Hemochromatosis associated with compound heterozygous mutation in [...] TH Visit (TeleHealth) [place] [address] Pelon Wisdom MD [facility] DR HEMATOLOGY [place] [address] documented as of this encounter Results * (ABNORMAL) Iron and TIBC (02/01/2022 2:53 PM EDT) [facility] Iron 44 30 - 150 mcg/dL [facility] TIBC 286 250 - 450 mcg/dL [facility] Iron Saturation 15(L) 20 - 50 % [facility] Blood 02/01/2022 2:53 PM EDT 02/01/2022 3:13 PM EDT Narrative Resulting Agency Comment Spec In Lab Oksana Levi APRN CHEMISTRY [place] [facility] [place] [address] * Ferritin (02/01/2022 2:53 PM EDT) [facility] Ferritin 41 15 - 150 ng/mL [facility] Comment: Pediatric reference ranges not verified at [facility], interpret with caution. Reference ranges for females greater than 50 years of age approach values for men, i.e., 30-400 ng/mL. Blood 02/01/2022 2:53 PM EDT 02/01/2022 3:13 PM EDT Narrative Resulting Agency Comment Spec In Lab Oksana Levi DYE RANGE OPERATOR CLOTH CHEMISTRY [place] Performing Organization Address City/State/[facility] Co de Phone Number [facility] [place] [address] documented in this encounter Visit Diagnoses Diagnosis Hemochromatosis associated with compound heterozygous mutation in HFE gene documented in this encounter Care Teams Sap Pi Developer Relationship Specialty Start Date End Date Che Sharpe PA [address] [place] [address] [place] [address] PCP - General Internal Medicine 04/20/20 documented as of this encounter
--- OUTSIDE RECORDS SUMMARY | 2024-05-15 12:55 | XMS_ITS | Encounter Summary ---
Author Organization [facility] [place] [address] Care Team Providers Care Trade Union Official Name Role Phone Che Sharpe Primary Care Provider + Reason for Visit * Reason Comments Procedure Encounter Details Date Type Department Care Team (Latest Contact Info) Description 09/14/2021 11:14 AM EDT - 09/14/2021 11:59 PM EDT Hospital Encounter [place] [address] Hemochromatosis, hereditary Discharge Disposition: Home Social History [...] 10 mg by mouth daily. 06/20/2021 02/01/2022 medroxyPROGESTERone (Depo-PROVERA) 150 mg/mL Suspension 04/03/2021 05/14/2024 amitriptyline (Elavil) 100 mg Tablet Take 100 mg by mouth nightly. 02/01/2022 documented as of this encounter Progress Notes * Kolton Estrella MD - 09/14/2021 1:08 PM EDTSummary: TP Note Transfusion Medicine Service [...] TH Visit (TeleHealth) [place] [address] Pelon Wisdom MD [facility] DR [place] [address] documented as of this encounter Visit Diagnoses Diagnosis Hemochromatosis, hereditary Hereditary hemochromatosis documented in this encounter Care Teams Trade Union Official Relationship Specialty Start Date End Date Che Sharpe PA [address] [place] [address] [place] [address] PCP - General Internal Medicine 04/20/20 documented as of this encounter
--- OUTSIDE RECORDS SUMMARY | 2024-05-15 12:55 | XMS_ITS | Encounter Summary ---
Author Organization [facility] [place] [address] Care Team Providers Care Manager Style Name Role Phone Che Sharpe Primary Care Provider + Encounter Details Date Type Department Care Team (Late st Contact Info) Description 12/22/2021 Telephone Hematology [place] [phone] Mely Perez RN Social History Tobacco Use [...] TH Visit (TeleHealth) [place] [address] Pelon Wisdom MD [facility] HEMATOLOGY [place] [address] documented as of this encounter Visit Diagnoses Not on filedocumented in this encounter Care Teams Manager Style Relationship Specialty Start Date End Date Che Sharpe PA [address] [place] [address] [place] [address] PCP - General Internal Medicine 04/20/20 documented as of this encounter
--- OUTSIDE RECORDS SUMMARY | 2024-05-15 12:55 | XMS_ITS | Encounter Summary ---
[place] [address] Care Team Providers Care Parcel Contractor Name Role Phone Che Sharpe Primary Care Provider + Reason for Referral * Consultation (Routine) - Closed Specialty Diagnoses / Procedures Referred By Contac t Referred To Contact [facility] Diagnoses Displacement of lumbar intervertebral disc without myelopathy Spine-Low back pain w/LE pain/MRI 09/14/22 @ [facility](faxed x1)/tried PT non op Carmen Astorga APRN [address] [place] [address] [facility] [place] [address] Referral ID Status Reason Start Date Expiration Date V isits Requested Visits Authorized [id number] Closed Consult, Test & Treat PCP Updated and/or Approved 09/20/2022 03/22/2023 1 1 Encounter Details Date Type Department Care Team (Latest Contact Info) Description 09/30/2022 Transcribe Orders eDH Incoming Referrals [phone] Carmen Astorga APRN [address] [place] [address] Displacement of lumbar intervertebral disc without myelopathy [...] TH Visit (TeleHealth) Hematology [place] [address] Pelon Wisdom MD [facility] [address] [place] [address] Scheduled Referrals Name Type Priority Associated Diagnoses Orde r Schedule Referral to Spine Center Outpatient Referral Routine Displacement of lumbar intervertebral disc without myelopathy Ordered: 09/30/2022 documented as of this encounter Visit Diagnoses Diagnosis Displacement of lumbar intervertebral disc without myelopathy documented in this encounter Care Teams Parcel Contractor Relationship Specialty Start Date End Date Che Sharpe PA [address] [place] [address] [place] [address] PCP - General Internal Medicine 04/20/20 documented as of this encounter
--- OUTSIDE RECORDS SUMMARY | 2024-05-15 12:55 | XMS_ITS | Encounter Summary ---
Author Organization [facility] Address [facility] [place] [address] Care Team Providers Care Fixed Wing Aircraft Flight Engineer Name Role Phone Che Sharpe Primary [...] TH Visit (TeleHealth) Hematology [place] [address] Pelon Wisdom MD [facility] [place] [address] documented as of this encounter Visit Diagnoses Not on filedocumented in this encounter Care Teams Fixed Wing Aircraft Flight Engineer Relationship Specialty Start Date End Date Che Sharpe PA [address] [place] [address] [place] [address] PCP - General Internal Medicine 04/20/20 documented as of this encounter
--- OUTSIDE RECORDS SUMMARY | 2024-05-15 12:55 | XMS_ITS | Encounter Summary ---
[place] [address] Care Team Providers Care Cold Reduction Roller Name Role Phone Che Sharpe Primary Care Provider + Reason for Referral * Consultation (Routine) - Closed Specialty Diagnoses / Procedures Referred By Contac t Referred To Contact Diagnoses Hemochromatosis associated with compound heterozygous mutation in HFE gene Pelon Wisdom MD [facility] [address] [place] [address] [facility] [place] [address] Referral ID Status Reason Start Date Expiration Date V isits Requested Visits Authorized [id number] Closed Consult, Test & Treat 08/08/2022 08/08/2023 3 3 Encounter Details Date Type Department Care Team (Late st Contact Info) Description 08/08/2022 Orders Only Hematology [place] [phone] Pelon Wisdom MD [facility] [address] [place] [address] Hemochromatosis associated with compound heterozygous [...] TH Visit (TeleHealth) Hematology [place] [address] Pelon Wisdom MD [facility] [place] [address] Scheduled Referrals Name Type Priority Associated Diagnoses Orde r Schedule Referral to Blood Donor Program/Apheresis Service Outpatient Referral Routine Hemochromatosis associated with compound heterozygous mutation in HFE gene Ordered: 08/08/2022 documented as of this encounter Visit Diagnoses Diagnosis Hemochromatosis associated with compound heterozygous mutation in HFE gene documented in this encounter Care Teams Cold Reduction Roller Relationship Specialty Start Date End Date Che Sharpe PA [address] [place] [address] [place] [address] PCP - General Internal Medicine 04/20/20 documented as of this encounter
--- OUTSIDE RECORDS SUMMARY | 2024-05-15 12:55 | XMS_ITS | Encounter Summary ---
Author Organization [facility] [place] [address] Care Team Providers Care Engraver Letter Name Role Phone Che Sharpe Primary Care Provider + Reason for Visit * Reason Comments Procedure * Consultation (Routine) - Closed Specialty Diagnoses / Procedures Referred By Contlaura t Referred To Contact Diagnoses Hemochromatosis associated with compound heterozygous mutation in HFE gene Pelon Wisdom MD [facility] DR HEMAT[place]Y [place] [address] [facility] [place] [address] Referral ID Status Reason Start Date Expiration Date V isits Requested Visits Authorized [id number] Closed Consult, Test & Treat 08/15/2021 08/15/2022 18 18 Encounter Details Date Type Department Care Team (Latest Contact Info) Description 10/05/2021 10:54 AM EDT - 10/05/2021 11:59 PM EDT Hospital Encounter [place] [address] Hereditary hemochromatosis Discharge Disposition: Home [...] of this encounter Progress Notes * Shivani Hoffman, - 10/05/2021 10:55 AM EDT Transfusion Medicine [...] Shivani Hoffman DO 10/05/2021 Associated attestation - eCci Kelly MD - 10/05/2021 5:28 PM EDT [...] TH Visit (TeleHealth) [place]ematology [place] [address] Pelon Wisdom MD [facility] DR HEMATOLOGY [place] [address] documented as of this encounter Procedures Procedure Name Priority Date/Time Associated Diagnosis Comments HC FERRITIN, SERUM Routine 10/05/2021 11 :52 AM EDT documented in this encounter Results * (ABNORMAL) Ferritin (10/05/2021 11:52 AM EDT) Ferritin 316(H) 15 - 150 ng/mL [facility] Comment: Pediatric reference ranges not verified at [facility], interpret with caution. Reference ranges for females greater than 50 years of age approach values for men, i.e., 30-400 ng/mL. Blood 10/05/2021 11:5 2 AM EDT 10/05/2021 12:02 PM EDT Narrative Resulting Agency Comment Spec In Lab Ceci Kelly MD CHEMISTRY ORDERABLES [facility] [place] [address] documented in this encounter Visit Diagnoses Diagnosis Hereditary hemochromatosis documented in this encounter Care Teams Engraver Letter Relationship Specialty Start Date End Date Che Sharpe PA [address] [place] [address] [place] [address] PCP - General Internal Medicine 04/20/20 documented as of this encounter
--- OUTSIDE RECORDS SUMMARY | 2024-05-15 12:55 | XMS_ITS | Encounter Summary ---
Author Organization [facility] [place] [address] Care Team Providers Care Antisqueak Chalker Name Role Phone Che Sharpe Primary Care Provider + Reason for Visit * Reason Comments Procedure * Consultation (Routine) - Closed Specialty Diagnoses / Procedures Referred By Contlaura t Referred To Contact Diagnoses Hemochromatosis associated with compound heterozygous mutation in HFE gene Pelon Wisdom MD [facility] [address] [place] [address] [facility] [place] [address] Referral ID Status Reason Start Date Expiration Date V isits Requested Visits Authorized [id number] Closed Consult, Test & Treat 08/15/2021 08/15/2022 18 18 Encounter Details Date Type Department Care Team (Latest Contact Info) Description 11/03/2021 11:19 AM EDT - 11/03/2021 11:59 PM EDT Hospital Encounter [place] [address] Hemochromatosis associated with mutation in [...] TH Visit (TeleHealth) Hematology [place] [address] Pelon Wisdom MD [facility] [address] [place] [address] documented as of this encounter Visit Diagnoses Diagnosis Hemochromatosis associated with mutation in HFE gene documented in this encounter Care Teams Antisqueak Chalker Relationship Specialty Start Date End Date Che Sharpe PA [address] [place] [address] [place] [address] PCP - General Internal Medicine 04/20/20 documented as of this encounter
--- OUTSIDE RECORDS SUMMARY | 2024-05-15 12:55 | XMS_ITS | Encounter Summary ---
Author Organization [facility] [place] [address] Care Team Providers Care Slip Bridge Operator Name Role Phone Che Sharpe Primary Care Provider + Reason for Visit * Reason Comments Procedure * Consultation (Routine) - Closed Specialty Diagnoses / Procedures Referred By Contlaura t Referred To Contact Diagnoses Hemochromatosis associated with compound heterozygous mutation in HFE gene Pelon Wisdom MD [facility] [address] [place] [address] [facility] [place] [address] Referral ID Status Reason Start Date Expiration Date V isits Requested Visits Authorized [id number] Closed Consult, Test & Treat 08/08/2022 08/08/2023 3 3 Encounter Details Date Type Department Care Team (Latest Contact Info) Description 10/19/2022 2:30 PM EDT - 10/19/2022 11:59 PM EDT Hospital Encounter [place] [address] Hemochromatosis, unspecified hemochromatosis type Discharge [...] Blood-Glucose Sensor (Dexcom G6 Sensor) Device by Spring.(Non-Drug; Combo Route) route. omeprazole (PriLOSEC) 40 mg [...] TH Visit (TeleHealth) [place]ology [place] [address] Pelon Wisdom MD [facility] [address] [place] [address] Scheduled Orders Name Type Priority Associated Diagnoses Orde r Schedule POCT HGB Point of Care Testing Routine Hemochromatosis, unspecified hemochromatosis type Ordered: 10/19/2022 documented as of this encounter Procedures Procedure Name Priority Date/Time Associated Diagnosis Comments FERRITIN Routine 10/19/2022 4:00 PM EDT Hemochromatosis, unspecified hemochromatosis type documented in this encounter Results * Ferritin (10/19/2022 4:00 PM EDT) Ferritin 51 15 - 150 ng/mL [facility] Comment: Pediatric reference ranges not verified at [facility] interpret with caution. Reference ranges for females greater than 50 years of age approach values for men, i.e., 30-400 ng/mL. Blood 10/19/2022 4:00 PM EDT 10/19/2022 4:18 PM EDT Narrative Resulting Agency Comment Spec In Lab Kolton Boss MD CHEMISTRY ORDERABLES [facility] [place] [address] documented in this encounter Visit Diagnoses Diagnosis Hemochromatosis, unspecified hemochromatosis type documented in this encounter Care Teams Slip Bridge Operator Relationship Specialty Start Date End Date Che Sharpe PA [address] [place] [address] [place] [address] PCP - General Internal Medicine 04/20/20 documented as of this encounter
--- OUTSIDE RECORDS SUMMARY | 2024-05-15 12:55 | XMS_ITS | Encounter Summary ---
Author Organization [facility] Address [facility] [place] [address] Care Team Providers Care Pouring Crane Operator Name Role Phone Che Sharpe Primary Care Provider + Encounter Details Date Type Department Care Team (Late st Contact Info) Description 05/08/2022 Orders Only Pathology [facility] [place] [address] Mayi Perez, Social History Tobacco Use Types Packs/Day Years [...] TH Visit (TeleHealth) [place] [address] Pelon Wisdom MD [facility] DR HEMATOLOGY [place] [address] documented as of this encounter Visit Diagnoses Not on filedocumented in this encounter Care Teams Pouring Crane Operator Relationship Specialty Start Date End Date Che Sharpe PA [address] [place] [address] [place] [address] PCP - General Internal Medicine 04/20/20 documented as of this encounter
--- OUTSIDE RECORDS SUMMARY | 2024-05-15 12:55 | XMS_ITS | Encounter Summary ---
Author Organization [facility] [place] [address] Care Team Providers Care Dust Handler Name Role Phone Che Sharpe Primary Care Provider + Encounter Details Date Type Department Care Team (Late st Contact Info) Description 09/05/2022 Telephone Blood Donor Program at [facility] [address] Carmen Reynoso RN Social History Tobacco Use [...] place to sleep or slept in a half-way (including now)? No 07/20/2021 Sex and Gender [...] TH Visit (TeleHealth) Hematology [place] [address] Pelon Wisdom MD [facility] DR HEMATOLOGY [place] [address] documented as of this encounter Visit Diagnoses Not on filedocumented in this encounter Care Teams Dust Handler Relationship Specialty Start Date End Date Che Sharpe PA [address] [place] [address] [place] [address] PCP - General Internal Medicine 04/20/20 documented as of this encounter
--- OUTSIDE RECORDS SUMMARY | 2024-05-15 12:55 | XMS_ITS | Encounter Summary ---
Author Organization [facility] [place] [address] Care Team Providers Care Gas Well Drilling Manager Name Role Phone Che Sharpe Primary Care Provider + Reason for Visit * Reason Comments Procedure * Consultation (Routine) - Closed Specialty Diagnoses / Procedures Referred By Contlaura t Referred To Contact Diagnoses Hemochromatosis associated with compound heterozygous mutation in HFE gene Pelon Wisdom MD [facility] [address] [place] [address] [facility] [place] [address] Referral ID Status Reason Start Date Expiration Date V isits Requested Visits Authorized [id number] Closed Consult, Test & Treat 08/15/2021 08/15/2022 18 18 Encounter Details Date Type Department Care Team (Latest Contact Info) Description 12/22/2021 11:00 AM EDT - 12/22/2021 11:59 PM EDT Hospital Encounter [place] [address] Hemochromatosis, unspecified hemochromatosis type Discharge [...] 1221 FERRITIN 316* [phone]* [phone]* Ana Renee, 12/22/2021 ATTENDING REVIEW: I have reviewed the [...] TH Visit (TeleHealth) Hematology [place] [address] Pelon Wisdom MD [facility] [address] [place] [address] documented as of this encounter Visit Diagnoses Diagnosis Hemochromatosis, unspecified hemochromatosis type documented in this encounter Care Teams Gas Well Drilling Manager Relationship Specialty Start Date End Date Che Sharpe PA [address] [place] [address] [place] [address] PCP - General Internal Medicine 04/20/20 documented as of this encounter
--- OUTSIDE RECORDS SUMMARY | 2024-05-15 12:55 | XMS_ITS | Encounter Summary ---
Author Organization [facility] [place] [address] Care Team Providers Care Facilitator Name Role Phone Che Sharpe Primary Care Provider + Reason for Visit * Reason Comments Procedure * Consultation (Routine) - Closed Specialty Diagnoses / Procedures Referred By Contlaura t Referred To Contact Diagnoses Hemochromatosis associated with compound heterozygous mutation in HFE gene Pelon Wisdom MD [facility] DR HEMATOLOGY [place] [address] [facility] [place] [address] Referral ID Status Reason Start Date Expiration Date V isits Requested Visits Authorized [id number] Closed Consult, Test & Treat 08/15/2021 08/15/2022 18 18 Encounter Details Date Type Department Care Team (Latest Contact Info) Description 01/19/2022 10:23 AM EDT - 01/19/2022 11:59 PM EDT Hospital Encounter [place] [address] Hemochromatosis, unspecified hemochromatosis type Discharge [...] this patient travels a long distance to [facility]. Recent Labs 01/19/22 1130 12/26/21 1230 [...] TH Visit (TeleHealth) Hematology [place] [address] Pelon Wisdom MD [facility] [place] [address] documented as of this encounter Procedures Procedure Name Priority Date/Time Associated Diagnosis Comments HC FERRITIN, SERUM Routine 01/19/2022 11 :30 AM EDT documented in this encounter Results * Ferritin (01/19/2022 11:30 AM EDT) Ferritin 71 15 - 150 ng/mL [facility] Comment: Pediatric reference ranges not verified at [facility], interpret with caution. Reference ranges for females greater than 50 years of age approach values for men, i.e., 30-400 ng/mL. Blood 01/19/2022 11:3 0 AM EDT 01/19/2022 11:41 AM EDT Narrative Resulting Agency Comment Spec In Lab Edith Villafuerte MD CHEMISTRY ORDERABLE S [facility] [place] [address] documented in this encounter Visit Diagnoses Diagnosis Hemochromatosis, unspecified hemochromatosis type documented in this encounter Care Teams Facilitator Relationship Specialty Start Date End Date Che Sharpe PA [address] [place] [address] [place] [address] PCP - General Internal Medicine 04/20/20 documented as of this encounter
--- OUTSIDE RECORDS SUMMARY | 2024-05-15 12:55 | XMS_ITS | Encounter Summary ---
Author [facility] [place] [address] Care Team Providers Care Flower Shop Manager Name Role Phone Che Sharpe Primary Care Provider + Reason for Visit * Reason Comments Procedure Encounter Details Date Type Department Care Team (Latest Contact Info) Description 11/09/2021 9:06 AM EDT - 11/09/2021 11:59 PM EDT Hospital Encounter [place] [address] Hereditary hemochromatosis Discharge Disposition: Home Social History [...] TH Visit (TeleHealth) Hematology [place] [address] Pelon Wisdom MD [facility] DR [place] [address] documented as of this encounter Visit Diagnoses Diagnosis Hereditary hemochromatosis documented in this encounter Care Teams Flower Shop Manager Relationship Specialty Start Date End Date Che Sharpe PA [address] [place] [address] [place] [address] PCP - General Internal Medicine 04/20/20 documented as of this encounter
--- OUTSIDE RECORDS SUMMARY | 2024-05-15 12:55 | XMS_ITS | Encounter Summary ---
Author Organization [facility] Address [facility] [place] [address] Care Team Providers Care Social Worker Assistant Name Role Phone Che Sharpe Primary [...] TH Visit (TeleHealth) [place]ology [place] [address] Pelon Wisdom MD [facility] HEMATOLOGY [place] [address] documented as of this encounter Visit Diagnoses Not on filedocumented in this encounter Care Teams Social Worker Assistant Relationship Specialty Start Date End Date Che Sharpe PA [address] [place] [address] [place] [address] PCP - General Internal Medicine 04/20/20 documented as of this encounter
--- OUTSIDE RECORDS SUMMARY | 2024-05-15 12:55 | XMS_ITS | Encounter Summary ---
Author Organization [facility] Address [facility] [place] [address] Care Team Providers Care Wine Fermenter Name Role Phone Che Sharpe Primary Care [...] TH Visit (TeleHealth) Hematology [place] [address] Pelon Wisdom MD [facility] HEMATOLOGY [place] [address] documented as of this encounter Visit Diagnoses Not on filedocumented in this encounter Care Teams Wine Fermenter Relationship Specialty Start Date End Date Che Sharpe PA [address] [place] [address] [place] [address] PCP - General Internal Medicine 04/20/20 documented as of this encounter
--- OUTSIDE RECORDS SUMMARY | 2024-05-15 12:55 | XMS_ITS | Encounter Summary ---
Author Organization [facility] [place] [address] Care Team Providers Care Machine Precision Etcher Name Role Phone Che Sharpe Primary Care Provider + Reason for Visit * Reason Comments Procedure Encounter Details Date Type Department Care Team (Latest Contact Info) Description 12/01/2021 9:30 AM EDT - 12/01/2021 11:59 PM EDT Hospital Encounter [place] [address] Type 2 diabetes mellitus without complication, unspecified whether senior care insulin use; Hemochromatosis, unspecified hemochromatosis type Discharge [...] TH Visit (TeleHealth) Hematology [place] [address] Pelon Wisdom MD [facility] DR [place] [address] Scheduled Orders Name Type Priority Associated Diagnoses Orde r Schedule Lab Use Only, Fax Request Lab Routine Type 2 diabetes mellitus without complication, unspecified whether intermission coordinator insulin use 1 Occurrences starting 12/01/2021 until 12/01/2021 documented as of this encounter Procedures Procedure Name Priority Date/Time Associated Diagnosis Comments LIPID PANEL (NO REFLEX) Routine 12/01/2021 11:02 AM EDT Type 2 diabetes mellitus without complication, unspecified whether senior care insulin use GOLD TUBE HOLD Routine 12/01/2021 11:02 AM EDT HC HEMOGLOBIN A1C Routine 12/01/2021 11: 02 AM EDT Type 2 diabetes mellitus without complication, unspecified whether senior care insulin use BASIC METABOLIC PANEL Routine 12/01/2021 11:02 AM EDT Type 2 diabetes mellitus without complication, unspecified whether senior care insulin use documented in this encounter Results * Gold Tube HOLD (12/01/2021 11:02 AM EDT) Gold Hold Sample in lab. [facility] Blood Venous Draw / Unknown 12/01/2021 11:02 AM EDT 12/01/2021 11:21 AM EDT Che MACKEY CHEMISTRY ORDERA BLES [facility] [place] [address] * (ABNORMAL) Basic Metabolic Panel (non-fasting) (12/01/2021 11:02 AM EDT) Glucose 135 65 - 199 mg/dL [facility] Comment:Diabetes: >=200 mg/d L plus symptoms Blood Urea Nitrogen 7(L) 8 - 18 mg/dL [facility] Creatinine 0.70 0.70 - 1.20 mg/dL [facility] Sodium 140 135 - 145 mmol/L [facility] Potassium 3.6 3.5 - 5.0 mmol/L [facility] Comment: Please note: ??Patients with WBC >100,000 may have falsely elevated Potassium levels. ??For accurate Potassium quantification in these patients send serum separator tube (gold top) for subsequent determinations. ??Contact the Clinical Chemistry Laboratory if there are any questions. Chloride 106 98 - 107 mmol/L [facility] Carbon Dioxide 24 22 - 31 mmol/L [facility] Anion Gap 10 5 - 15 mmol/L [facility] Calcium 8.8 8.5 - 10.5 mg/dL [facility] Est Glomerular Filtration Rate 112 >=60 mL/min/1. 73 m?? [facility] Comment: This patient's [...] In Lab Che MACKEY CHEMISTRY MYCHAL VELAZQUEZ [facility] [place] [address] * (ABNORMAL) Hemoglobin A1c (12/01/2021 11:02 AM EDT) Hemoglobin A1c 6.3(H) 4.3 - 5.6 % [facility] [...] 1, S67-74 Estimated Average Glucose 135 mg/dL [facility] Comment: [...] into estimated average glucose values. ??Diabetes Care 2008:31(8):9257-3285. Blood 12/01/2021 11:0 2 AM EDT 12/01/2021 11:20 AM EDT Narrative Resulting Agency Comment Spec In Lab Che MACKEY CHEMISTRY ORDERA BLES [facility] [place] [address] * Lipid Panel (No Reflex) (12/01/2021 11:02 AM EDT) Cholesterol, Total 193 mg/dL [facility] Comment: Lower Risk: <200 mg/dL Average Risk: 200-239 mg/dL Higher Risk: >fc=619 mg/dL Triglyceride 159 mg/dL [facility] Comment: Average Risk/Lower Risk: <150 mg/dL Borderline High Risk: 150-199 mg/dL High Risk: 200-499 mg/dL Very High Risk: >th=094 mg/dL HDL Cholesterol 34 mg/dL [facility] Comment: Males: ?? Higher Risk: <40 mg/dL Females: ?? Higher Risk: <50 mg/dL LDL Cholesterol 127 mg/dL [facility] Comment: Lowest Risk: <100 mg/dL Lower Risk: 100-129 mg/dL Borderline High Risk: 130-159 mg/dL High Risk: 160-189 mg/dL Very High Risk: >hq=845 mg/dL Cholesterol/HDL Ratio 5.7 ratio [facility] Lipid Interpretation See Note [facility] Comment: Lipid management should be guided by a patient? s ASCVD risk, goals and preferences. ACC/AHA Guidelines recommend high intensity statin if clinical ASCVD or LDL greater than or equal to 190 mg/dL. http://tinyurl.com/RUX-ZBB-Iybiwhynt Adults aged 40-75 with LDL 70-189 mg/dL should have their 10 year ASCVD risk estimated with the ACC/AHA ASCVD risk line appliance assembler http://tools.acc.org/JYGLD-Mjzj-Jmbvgcpsx/ Statin should be discussed if risk greater [...] In Lab Che MACKEY CHEMISTRY ORDERA BLES [facility] [place] [address] documented in this encounter Visit Diagnoses Diagnosis Type 2 diabetes mellitus without complication, unspecified whether senior care insulin use Hemochromatosis, unspecified hemochromatosis type documented in this encounter Care Teams Machine Precision Etcher Relationship Specialty Start Date End Date Che Sharpe PA [address] [place] [address] [place] [address] PCP - General Internal Medicine 04/20/20 documented as of this encounter
--- OUTSIDE RECORDS SUMMARY | 2024-05-15 12:55 | XMS_ITS | Encounter Summary ---
Author Organization [facility] [place] [address] Care Team Providers Care Shared Services Representative Name Role Phone Che Sharpe Primary Care Provider + Reason for Visit * Reason Comments Procedure Encounter Details Date Type Department Care Team (Latest Contact Info) Description 12/26/2021 10:21 AM EDT - 12/26/2021 11:59 PM EDT Hospital Encounter [place] [address] Familial hemochromatosis; Hemochromatosis associated with compound heterozygous [...] of this encounter Progress Notes * Pj Chung, - 12/26/2021 11:24 AM EDTSummary: TP; hemochromatosis [...] TH Visit (TeleHealth) [place]ology [place] [address] Pelon Wisdom MD [facility] DR HEMATOLOGY [place] [address] documented as of this encounter Procedures Procedure Name Priority Date/Time Associated Diagnosis Comments HC FERRITIN, SERUM Routine 12/26/2021 12 :30 PM EDT Hemochromatosis associated with compound heterozygous mutation in HFE gene documented in this encounter Results * Ferritin (12/26/2021 12:30 PM EDT) Ferritin 129 15 - 150 ng/mL [facility] Comment: Pediatric reference ranges not verified at [facility], interpret with caution. Reference ranges for females greater than 50 years of age approach values for men, i.e., 30-400 ng/mL. 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
--- OUTSIDE RECORDS SUMMARY | 2024-05-15 12:55 | XMS_ITS | Encounter Summary ---
[place] [address] Care Team Providers Care Duct Installer Name Role Phone Che Sharpe Primary Care Provider + Reason for Referral * Consultation (Routine) - Canceled Specialty Diagnoses / Procedures Referred By Contac t Referred To Contact [facility] Diagnoses Displacement of lumbar intervertebral disc without myelopathy Carmen Astorga APRN [address] [place] [address] [facility] [place] [address] Referral ID Status Reason Start Date Expiration Date Visits Requested Visits Authorized [id number] Canceled Consult, Test & Treat PCP Updated and/or Approved 10/05/2022 10/05/2023 6 6 Encounter Details Date Type Department Care Team (Latest Contact Info) Description 10/05/2022 Transcribe Orders eDH Incoming Referrals [phone] Carmen Astorga APRN [address] [place], [place] [address] Displacement of lumbar intervertebral disc without myelopathy [...] TH Visit (TeleHealth) [place]ology [place] [address] Pelon Wisdom MD [facility] DR [place]AT[place] [address] Scheduled Referrals Name Type Priority Associated Diagnoses Orde r Schedule Referral to Spine Center Outpatient Referral Routine Displacement of lumbar intervertebral disc without myelopathy Ordered: 10/05/2022 documented as of this encounter Visit Diagnoses Diagnosis Displacement of lumbar intervertebral disc without myelopathy documented in this encounter Care Teams Duct Installer Relationship Specialty Start Date End Date Che Sharpe PA [address] [place] [address] [place] [address] PCP - General Internal Medicine 04/20/20 documented as of this encounter
--- OUTSIDE RECORDS SUMMARY | 2024-05-15 12:55 | XMS_ITS | Encounter Summary ---
Author Organization Formerly [facility] [place] [address] Care Team Providers Care Loft Worker Apprentice Name Role Phone Che Sharpe Primary Care Provider + Encounter Details Date Type Department Care Team (Latest Contact Info) Description 02/01/2022 2:45 PM EDT - 02/01/2022 11:59 PM EDT Hospital Encounter [place] [phone] Hemochromatosis associated with compound heterozygous mutation in [...] Blood-Glucose Sensor (Dexcom G6 Sensor) Device by [facility].(Non-Drug; Combo Route) route. omeprazole (PriLOSEC) 40 mg [...] 04/03/2021 05/14/2024 documented as of this encounter Plan of Treatment Upcoming Encounters Date Type Department Care Team (Late st Contact Info) Description 05/13/2025 4:00 PM EST TH Visit (TeleHealth) [place] [address] Pelon Wisdom MD [facility] [place] [address] documented as of this encounter Procedures Procedure [...] 2:53 PM EDT) Neutrophil % 56.4 % [facility] Neutrophil Absolute 3.64 1.70 - 6.10 x10(3)/[facility] Lymph % 30.4 % [facility] Lymphocytes Abs 2.0 0.9 - 3.2 x10(3)/[facility] Monocyte % 7.9 % [facility] Monocyte Abs 0.5 0.3 - 0.9 x10(3)/[facility] Eos % 4.2 % [facility] Eosinophils Abs 0.3 0.0 - 0.4 x10(3)/[facility] Basophil % 0.8 % [facility] Baso Absolute 0.0 0.0 - 0.1 x10(3)/[facility] Immature Gran % 0.30 % [facility] Comment: Immature granulocytes(IG's)percentage and absolute count will include metamyelocytes, myelocytes, and promyelocytes. Blood smears from CBCs yielding IG's will be scanned manually for concordance. If this scan disagrees with the automated IG or if promyelocytes are noted, a manual differential will be performed. Immature Gran Absolute 0.02 0.00 - 0.04 x10(3)/[facility] Blood 02/01/2022 2:53 PM EDT 02/01/2022 3:13 PM EDT Narrative Resulting Agency Comment Spec In Lab Oksana Levi LITHOGRAPHIC PHOTOGRAPHER HEMATOLOGY ORD ERABLES [facility] [place] [address] * (ABNORMAL) Hemogram (02/01/2022 2:53 PM EDT) White Blood Cell 6.4 4.0 - 9.5 x10(3)/ L [facility] Red Blood Cell 3.47(L) 4.00 - 5.21 x10(6)/mc L [facility] Hemoglobin 11.8 11.7 - 15.5 g/dL [facility] Hematocrit 33.9(L) 35.7 - 45.8 % [facility] Mean Cell Volume 97.7(H) 82.6 - 94.4 fL [facility] Mean Cell Hemoglobin 34.0(H) 27.1 - 32.0 pg [facility] Mean Cell Hemoglobin Concentration 34.8 31.7 - 35.0 g/dL [facility] Platelet 330 145 - 357 x10(3)/mc L [facility] RDW Standard Deviation 44.7 37.0 - 46.0 fL [facility] RDW coefficient of variation 12.5 11.5 - 14.1 % [facility] Mean Platelet Volume 10.4 7.6 - 12.9 fL [facility] NRBC% auto 0.0 % [facility] NRBC Absolute 0.000 0.000 - 0.000 x10(3)/mc L [facility] Blood 02/01/2022 2:53 PM EDT 02/01/2022 3:13 PM EDT Narrative Resulting Agency Comment Spec In Lab Oksana Levi APRN HEMATOLOGY ORD ERABLES Performing Organization Address City/[facility]/ZIP Co de Phone Number [facility] [place] [address] * (ABNORMAL) Iron and TIBC (02/01/2022 2:53 PM EDT) Iron 44 30 - 150 mcg/dL [facility] TIBC 286 250 - 450 mcg/dL [facility] Iron Saturation 15(L) 20 - 50 % [facility] Blood 02/01/2022 2:53 PM EDT 02/01/2022 3:13 PM EDT Narrative Resulting Agency Comment Spec In Lab Oksana Levi APRN CHEMISTRY ORDE RABLES Performing Organization Address City/[facility]/ZIP Co de Phone Number [facility] [place] [address] * Ferritin (02/01/2022 2:53 PM EDT) Ferritin 41 15 - 150 ng/mL [facility] Comment: Pediatric reference ranges not verified at [facility], interpret with caution. Reference ranges for females greater than 50 years of age approach values for men, i.e., 30-400 ng/mL. Blood 02/01/2022 2:53 PM EDT 02/01/2022 3:13 PM EDT Narrative Resulting Agency Comment Spec In Lab Oksana Levi LITHOGRAPHIC PHOTOGRAPHER CHEMISTRY [place] [facility] [place] [address] documented in this encounter Visit Diagnoses Diagnosis Hemochromatosis associated with compound heterozygous mutation in HFE gene documented in this encounter Care Teams Loft Worker Apprentice Relationship Specialty Start Date End Date Che Sharpe PA [address] [place] [address] [place] [address] PCP - General Internal Medicine 04/20/20 documented as of this encounter
--- OUTSIDE RECORDS SUMMARY | 2024-05-15 12:55 | XMS_ITS | Encounter Summary ---
Author Organization [facility] Address [facility] [place] [address] Care Team Providers Care Dress Operator Name Role Phone Che Sharpe Primary Care Provider + Reason for Visit * Reason Comments Follow-up Encounter Details Date Type Department Care Team (Latest Contact Info) Description 02/01/2022 4:00 PM EDT Office Visit Hematology [place] [address] Pelon Wisdom MD [facility] DR HEMATOLOGY [place] [address] Oksana Payne APRN [facility] DR HEMATOLOGY [place] [address] Taina Oliver MD [facility] DR HEMATOLOGY/[place] [address] Hemochromatosis associated with compound heterozygous mutation in [...] PERSONAL and SOCIAL HISTORY ?? Lives in: [place], [place], [place] from [facility]. [facility] is the closest hospital. ?? 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 ?? ETOH: occasional ?? Smoking: No ?? [...] saturation of 41%. Phlebotomies were arranged at [facility] but due to her difficulty with [...] have questions or concerns. Oksana Payne, MSN, AIRCRAFT SHEET METAL MECHANIC [facility] Hematology/[place] [address] Pager: [phone] CC: NARENDRA Gray Elizabeth C documented in this encounter Plan of Treatment Upcoming Encounters Date Type Department Care Team (Late st Contact Info) Description 05/13/2025 4:00 PM EST TH Visit (TeleHealth) Hematology [place] [address] Pelon Wisdom MD [facility] DR [place] [address] documented as of this encounter Visit Diagnoses Diagnosis Hemochromatosis associated with compound heterozygous mutation in HFE gene documented in this encounter Care Teams Dress Operator Relationship Specialty Start Date End Date Che Sharpe PA [address] [place] [address] [place] [address] PCP - General Internal Medicine 04/20/20 documented as of this encounter
--- OUTSIDE RECORDS SUMMARY | 2024-05-15 12:55 | XMS_ITS | Encounter Summary ---
Author Organization [facility] [place] [address] Care Team Providers Care Hog Room Supervisor Name Role Phone Che Sharpe Primary Care Provider + Encounter Details Date Type Department Care Team (Late st Contact Info) Description 08/22/2021 Telephone [place] [phone] Mely Perez RN Social History Tobacco Use [...] more try for therapeutic phlebotomy at [facility] with Dr. Tomlinson. She is in agreement with this request, but if this doesn't work, we will need to discussplan for patient to come to [facility] in [place]. Patient is in agreement with this plan. RN advised Emma to push extra fluids starting a few days prior to her appt, and also recommended using a warm compress the day of the draw. RN made contact with Norma at [facility] lab/infusion ([phone]) and reviewed above plan. Norma confirmed she would discuss with her Charge nurse and get back to this nurse. T/C: NORMA FROM [facility] RETURNED YOUR CALL Heather Durant Melissa M RN She just wanted to leave a message: She's waiting to hear back from one her nurses to try the phlebotomy again. ??She said once scheduled she will contact the patient directly. If you have more questions, norma can be reached at: [phone]. documented in this encounter Plan of Treatment Upcoming Encounters Date Type Department Care Team (Late st Contact Info) Description 05/13/2025 4:00 PM EST TH Visit (TeleHealth) [place] [address] Pelon Wisdom MD [facility] [place] [address] documented as of this encounter Visit Diagnoses Not on filedocumented in this encounter Care Teams Hog Room Supervisor Relationship Specialty Start Date End Date Che Sharpe PA [address] [place] [address] [place] [address] PCP - General Internal Medicine 04/20/20 documented as of this encounter
--- OUTSIDE RECORDS SUMMARY | 2024-05-15 12:55 | XMS_ITS | Encounter Summary ---
Author Organization Formerly [facility] Address [facility] [place] [address] Care Team Providers Care Child Care Assistant Name Role Phone Che Sharpe Primary Care Provider + Reason for Visit * Reason Comments Follow-up Doing PT Back Pain Encounter Details Date Type Department Care Team ([facility] st Contact Info) Description 02/07/2023 11:30 AM EDT Office Visit [place] [phone] Jarett Avalos MD [facility] PHYSICAL MEDICINE [place] [address] Chronic bilateral low back pain without sciatica; [...] during the course of PT treatment at [facility]. No notes have been received from the [...] FADIR is negative. Bilateral posterior thrust and Denmark's tests are negative. Sacral thrust is positive. [...] given toreferral for enrollment in the [facility]. Plan: 1. Follow-up in 2-3 weeks for repeat manual therapy. Total time spent on date of encounter, including hqeb-ld-wdet evaluation and coordination of care (minus manual therapy) = 32 minutes. Jarett Avalos MD, MS documented in this encounter Plan of Treatment Upcoming Encounters Date Type Department Care Team (Late st Contact Info) Description 05/13/2025 4:00 PM EST TH Visit (TeleHealth) Hematology [place] [address] [facility] DR HEMATOLOGY [place] [address] documented as of this encounter Visit Diagnoses Diagnosis Chronic bilateral low back pain without sciatica Sacroiliac dysfunction Disorders of sacrum Sacroiliac joint somatic dysfunction Nonallopathic lesion of sacral region, not elsewhere classified documented in this encounter Care Teams Child Care Assistant Relationship Specialty Start Date End Date Che Sharpe PA [address] [place] [address] [place] [address] PCP - General Internal Medicine 04/20/20 documented as of this encounter
--- OUTSIDE RECORDS SUMMARY | 2024-05-15 12:55 | XMS_ITS | Encounter Summary ---
Author Organization [facility] [place] [address] Care Team Providers Care Student Union Consultant Name Role Phone Che Sharpe Primary Care Provider + Encounter Details Date Type Department Care Team (Late st Contact Info) Description 09/14/2022 Ancillary Procedure Radiology Library at [facility] [place] [address] Che Sharpe PA [address] [place] [address] [place], [place] [id number] Social History Tobacco Use Types Packs/Day Years [...] place to sleep or slept in a intermediate (including now)? No 07/20/2021 Sex and Gender Information Value Date Recorded Sex Assigned at Not on file Gender Identity Not on file Sexual Orientation Not on file documented as of this encounter Plan of Treatment Upcoming Encounters Date Type Department Care Team (Late st Contact Info) Description 05/13/2025 4:00 PM EST TH Visit (TeleHealth) [place]ology [place] [address] Pelon Wisdom MD [facility] DR [place] [address] documented as of this encounter Procedures Procedure Name Priority Date/Time Associated Diagnosis Comments FILM LIBRARY STORAGE ONLY MR SPINE Routine 09/14/2022 12:00 AM EDT documented in this encounter Results * Film Library- Storage Only MR Spine (09/14/2022 12:00 AM EDT) Narrative [facility] - 09/22/2022 2:30 AM EDT This exam is auto-finalizing. It's purpose is for storage only. Che MACKEY [place] FILM LIBRARY ORDERABLES [place], [place] documented in this encounter Visit Diagnoses Not on filedocumented in this encounter Care Teams Student Union Consultant Relationship Specialty Start Date End Date Che Sharpe PA [address] [place] [address] [place] [address] PCP - General Internal Medicine 04/20/20 documented as of this encounter
--- OUTSIDE RECORDS SUMMARY | 2024-05-15 12:55 | XMS_ITS | Encounter Summary ---
Author Organization [facility] [place] [address] Care Team Providers Care Nuclear Reactor Operator Name Role Phone Che Sharpe Primary Care Provider + Reason for Visit * Reason Comments Procedure * Consultation (Routine) - Closed Specialty Diagnoses / Procedures Referred By Contlaura t Referred To Contact Diagnoses Hemochromatosis associated with compound heterozygous mutation in HFE gene Pelon Wisdom MD [facility] [place] [address] [facility] [place] [address] Referral ID Status Reason Start Date Expiration Date V isits Requested Visits Authorized [id number] Closed Consult, Test & Treat 08/15/2021 08/15/2022 18 18 Encounter Details Date Type Department Care Team (Latest Contact Info) Description 08/24/2021 1:44 PM EDT - 08/24/2021 11:59 PM EDT Hospital Encounter [place] [address] Hemochromatosis associated with compound heterozygous [...] difficult stick and lives far away from [facility] (near [place]). She reports she has residual nerve [...] TH Visit (TeleHealth) [place]ematology [place] [address] Pelon Wisdom MD [facility] [place] [address] Scheduled Referrals Name Type Priority Associated Diagnoses Orde r Schedule Referral to Blood Donor Program/Apheresis Service Outpatient Referral Routine Hemochromatosis associated with compound heterozygous mutation in HFE gene Ordered: 08/15/2021 documented as of this encounter Visit Diagnoses Diagnosis Hemochromatosis associated with compound heterozygous mutation in HFE gene documented in this encounter Care Teams Nuclear Reactor Operator Relationship Specialty Start Date End Date Che Sharpe PA [address] [place] [address] [place] [address] PCP - General Internal Medicine 04/20/20 documented as of this encounter
--- OUTSIDE RECORDS SUMMARY | 2024-05-15 12:55 | XMS_ITS | Encounter Summary ---
Author Organization [facility] [place] [address] Care Team Providers Care Pipe Bending Machine Operator Name Role Phone Che Sharpe Primary Care Provider + Encounter Details Date Type Department Care Team (Late st Contact Info) Description 08/25/2021 Telephone Hematology [place] [phone] Mely Perez RN Social History Tobacco Use [...] RN took a call from Andi at [facility] primary care office. Patient called [...] TH Visit (TeleHealth) Hematology [place] [address] Pelon Wisdom MD [facility] DR HEMATOLOGY [place] [address] documented as of this encounter Visit Diagnoses Not on filedocumented in this encounter Care Teams Pipe Bending Machine Operator Relationship Specialty Start Date End Date Che Sharpe PA [address] [place] [address] [place] [address] PCP - General Internal Medicine 04/20/20 documented as of this encounter
--- OUTSIDE RECORDS SUMMARY | 2024-05-15 12:55 | XMS_ITS | Encounter Summary ---
Author Organization [facility] Address [facility] [place] [address] Care Team Providers Care Salesperson Household Appliances Name Role Phone Che Sharpe Primary Care Provider + Reason for Referral * Physical Therapy (Routine) - Closed Specialty Diagnoses / Procedures Referred By Contac t Referred To Contact Physical Therapy Diagnoses Chronic bilateral low back pain without sciatica Lumbar spondylosis Protrusion of lumbar intervertebral disc Sacroiliac dysfunction Myofascial pain Jarett Avalos MD [facility] DR [place] [address] Referral ID Status Reason Start Date Expiration Date V isits Requested Visits Authorized [id number] Closed Evaluate and Treat 12/11/2022 06/09/2023 12 12 Reason for Visit * Reason Comments Back Pain Lower back * Consultation (Routine) - Closed Specialty Diagnoses / Procedures Referred By Contac t Referred To Contact Pain and Spine Center Diagnoses Displacement of lumbar intervertebral disc without myelopathy Spine-Low back pain w/LE pain/MRI 09/14/22 @ [facility](faxed x1)/tried PT non op Carmen Astorga APRN [address] [place] [address] [facility] [place] [address] Referral ID Status Reason Start Date Expiration Date V isits Requested Visits Authorized [id number] Closed Consult, Test & Treat PCP Updated and/or Approved 09/20/2022 03/22/2023 1 1 Encounter Details Date Type Department Care Team (Late st Contact Info) Description 12/11/2022 2:45 PM EDT Office Visit Pain and Spine Center at [facility] [place] [address] Jarett Avalos MD [facility] DR [place] [address] Chronic bilateral low back pain without sciatica [...] two sessions of outpatient PT treatment at [facility]. She has experienced slight relief with the use of amitriptyline, as prescribed by her primary care provider. The patient saw a pain management provider at [facility] in early 2022. She was [...] The patient was advised of the clinic bandoleer packer policy. She declined to have a bandoleer packer during today's evaluation. Ht 162.6 cm (5' [...] proceed. This will be carried out at [facility]. The prescription includespostural training, manual [...] TH Visit (TeleHealth) [place] [address] Pelon Wisdom MD [facility] [address] [place] [address] Scheduled Referrals Name Type Priority Associated Diagnoses [...] unspecified documented in this encounter Care Teams Salesperson Household Appliances Relationship Specialty Start Date End Date Che Sharpe PA [address] [place] [address] [place] [address] PCP - General Internal Medicine 04/20/20 documented as of this encounter
--- OUTSIDE RECORDS SUMMARY | 2024-05-15 12:55 | XMS_ITS | Encounter Summary ---
Author Organization [facility]ly [facility] Address [facility] [place] [address] Care Team Providers Care Historic Sites Registrar Name Role Phone Che Sharpe Primary Care Provider + Encounter Details Date Type Department Care Team (Late st Contact Info) Description 03/01/2022 Notes [place] [phone] Juan David Zaragoza PA [address] [place] [address] [place] [address] Social History Tobacco Use Types Packs/Day Years [...] TH Visit (TeleHealth) Hematology [place] [address] Pelon Wisdom MD [facility] DR HEMATOLOGY [place] [address] documented as of this encounter Visit Diagnoses Not on filedocumented in this encounter Care Teams Historic Sites Registrar Relationship Specialty Start Date End Date Che Sharpe PA [address] [place] [address] [place] [address] PCP - General Internal Medicine 04/20/20 documented as of this encounter
--- OUTSIDE RECORDS SUMMARY | 2024-05-15 12:55 | XMS_ITS | Encounter Summary ---
Author Organization Formerly [facility] [place] [address] Care Team Providers Care Steam Clean Machine Operator Name Role Phone Che Sharpe Primary Care Provider + Encounter Details Date Type Department Care Team (Late st Contact Info) Description 08/16/2021 Telephone Hematology [place] [phone] Mely Perez RN Social History Tobacco Use [...] for her to make the trip to [facility] for her phlebotomies due to her having [...] try to make theschedule of traveling to [facility] [id number] work, but it would need to be [...] TH Visit (TeleHealth) Hematology [place] [address] Pelon Wisdom MD [facility] HEMATOLOGY [place] [address] documented as of this encounter Visit Diagnoses Not on filedocumented in this encounter Care Teams Steam Clean Machine Operator Relationship Specialty Start Date End Date Yasewicz, Che C, PA [address] [place] [address] [place] [address] PCP - General Internal Medicine 04/20/20 documented as of this encounter
--- OUTSIDE RECORDS SUMMARY | 2024-05-15 12:55 | XMS_ITS | Encounter Summary ---
Author Organization [facility] Address [facility] [place] [address] Care Team Providers Care Physical Therapy Attendant Name Role Phone Che Sharpe Primary Care [...] TH Visit (TeleHealth) [place] [address] Pelon Wisdom MD [facility] HEMATOLOGY [place] [address] documented as of this encounter Visit Diagnoses Not on filedocumented in this encounter Care Teams Physical Therapy Attendant Relationship Specialty Start Date End Date Che Sharpe PA [address] [place] [address] [place] [address] PCP - General Internal Medicine 04/20/20 documented as of this encounter
--- OUTSIDE RECORDS SUMMARY | 2024-05-15 12:55 | XMS_ITS | Encounter Summary ---
Author Organization [facility] [place] [address] Care Team Providers Care Freight Elevator Operator Name Role Phone Che Sharpe Primary Care Provider + Reason for Visit * Reason Comments Procedure * Consultation (Routine) - Closed Specialty Diagnoses / Procedures Referred By Contlaura t Referred To Contact Diagnoses Hemochromatosis associated with compound heterozygous mutation in HFE gene Pelon Wisdom MD [facility] [address] [place] [address] [facility] [place] [address] Referral ID Status Reason Start Date Expiration Date V isits Requested Visits Authorized [id number] Closed Consult, Test & Treat 08/15/2021 08/15/2022 18 18 Encounter Details Date Type Department Care Team (Latest Contact Info) Description 07/19/2022 10:00 AM EDT - 07/19/2022 11:59 PM EDT Hospital Encounter [place] [address] Hemochromatosis, unspecified hemochromatosis type Discharge [...] Blood-Glucose Sensor (Dexcom G6 Sensor) Device by [facility].(Non-Drug; Combo Route) route. omeprazole (PriLOSEC) 40 mg [...] TH Visit (TeleHealth) [place] [address] Pelon Wisdom MD [facility] [place] [address] Scheduled Orders Name Type Priority Associated Diagnoses Orde r Schedule POCT HGB Point of Care Testing Routine Hemochromatosis, unspecified hemochromatosis type Ordered: 07/19/2022 documented as of this encounter Procedures Procedure Name Priority Date/Time Associated Diagnosis Comments FERRITIN Routine 07/19/2022 12:40 PM EDT Hemochromatosis, unspecified hemochromatosis type documented in this encounter Results * Ferritin (07/19/2022 12:40 PM EDT) Ferritin 50 15 - 150 ng/mL [facility] Comment: Pediatric reference ranges not verified at [facility], interpret with caution. Reference ranges for females greater than 50 years of age approach values for men, i.e., 30-400 ng/mL. Blood 07/19/2022 12:4 0 PM EDT 07/19/2022 12:44 PM EDT Narrative Resulting Agency Comment Spec In Lab Kolton Boss MD CHEMISTRY ORDERABLES [facility] [place] [address] documented in this encounter Visit Diagnoses Diagnosis [...] mLs documented in this encounter Care Teams Freight Elevator Operator Relationship Specialty Start Date End Date Che Sharpe PA [address] [place] [address] [place] [address] PCP - General Internal Medicine 04/20/20 documented as of this encounter
--- OUTSIDE RECORDS SUMMARY | 2024-05-15 12:55 | XMS_ITS | Encounter Summary ---
Author Organization [facility] [place] [address] Care Team Providers Care Grapple Crew Leader Name Role Phone Che Sharpe Primary Care Provider + Encounter Details Date Type Department Care Team (Late st Contact Info) Description 08/29/2021 Telephone Hematology [place] [address] Mely Perez RN Social History Tobacco Use [...] placement. Patient's last successful phlebotomy done at [facility] on 08/24/21, due for next between 09/14/21-09/21/21. T/C: RN made contact with Emma and reviewed the above information/plan. Emma expressed frustration stating Sherin Butler put the idea in my head for the possibility of a PICC line or Mediport. RN asked Emma to reach out to [facility] and schedule another visit for end of August first september. This RNwill discuss mediport option with Dr. Tomlinson and will contact Emma with update. Emma verbalized understanding and agreement. documented in this encounter Plan of Treatment Upcoming Encounters Date Type Department Care Team (Late st Contact Info) Description 05/13/2025 4:00 PM EST TH Visit (TeleHealth) Hematology [place] [address] Pelon Wisdom MD [facility] DR HEMATOLOGY [place] [address] documented as of this encounter Visit Diagnoses Not on filedocumented in this encounter Care Teams Grapple Crew Leader Relationship Specialty Start Date End Date Che Sharpe PA [address] [place] [address] [place] [address] PCP - General Internal Medicine 04/20/20 documented as of this encounter
--- OUTSIDE RECORDS SUMMARY | 2024-05-15 12:56 | XMS_ITS | Encounter Summary ---
Author Organization [facility] [place] [address] Care Team Providers Care Executive Director Of Marketing Name Role Phone Rosy Tavarez GO Primary Care Provider Encounter Details Date Type Department Care Team (Late st Contact Info) Description 10/28/2017 2:00 PM EDT Office Visit Neurology at [facility] [place] [address] Sujata Reyez MD Martin-Yeboah, Henry F, MD Tension-type headache, not intractable, unspecified chronicity pattern; [...] Vitals: 10/28/17 1409 BP: 106/60 BP Location (NB): Left arm Patient Position: Sitting BP Cuff [...] L Elbow flexion 5/5 R, 5/5 L Glass Bender LE: 5/5 R, 5/5 L Hip flexion [...] nights preceding a wakeup headache. It may turn laster that she needs a sleep study to [...] [place] MD Neurology Resident, PGY-4 Personal Pager [phone] 10/28/2017 * Sujata Reyez MD - 10/28/2017 [...] TH Visit (TeleHealth) Hematology [place] [address] Pelon Wisdom MD [facility] [place] [address] documented as of this encounter Visit Diagnoses Diagnosis Tension-type headache, not intractable, unspecified chronicity pattern Syncope, unspecified syncope type documented in this encounter Care Teams Executive Director Of Marketing Relationship Specialty Start Date End Date Rosy Tavarez, WOOD CAULKER [facility] GENER[place] [address] PCP - General General Internal Medicine 02/14/17 605/11 documented as of this encounter
--- OUTSIDE RECORDS SUMMARY | 2024-05-15 12:56 | XMS_ITS | Encounter Summary ---
Author Organization [facility] [place] [address] Care Team Providers Care Paramedic Name Role Phone Rosy Tavarez GO Primary Care Provider [phone] Encounter Details Date Type Department Care Team (Late st Contact Info) Description 09/24/2017 3:00 PM EDT Office Visit Psychiatry [place] [address] Taye Lagos, PhD Post-traumatic stress disorder, chronic; [...] highlight the connection between her symptoms. This keno writer / runner provided a brief overview of Prolonged Exposure [...] TH Visit (TeleHealth) [place] [address] Pelon Wisdom MD [facility] HEMATOLOGY [place] [address] documented as of this encounter Visit Diagnoses Diagnosis Post-traumatic stress disorder, chronic SAMPSON (generalized anxiety disorder) Generalized anxiety disorder documented in this encounter Care Teams Paramedic Relationship Specialty Start Date End Date Rosy Tavarez APRN [facility] GENERAL [place] [address] PCP - General General Internal Medicine 02/14/17 6/2 05/11 documented as of this encounter
--- OUTSIDE RECORDS SUMMARY | 2024-05-15 12:56 | XMS_ITS | Encounter Summary ---
Author Organization [facility] [place] [address] Care Team Providers Care Research Pharmacist Name Role Phone Rosy Tavarez APRN Primary Care Provider Reason for Visit * Reason Onset Date Comments Medication Refill 11/11/2017 Encounter Details Date Type Department Care Team (Late st Contact Info) Description 11/11/2017 [place] [address] Amanda Field Social History Tobacco Use Types [...] Rosy Tavarez APRN Pharmacy Name & Location [[facility]] ?? documented in this encounter Plan of Treatment Upcoming Encounters Date Type Department Care Team (Late Contact Info) Description 05/13/2025 4:00 PM EST TH Visit (TeleHealth) [place] [address] Pelon Wisdom MD [facility] HEMATOLOGY [place] [address] documented as of this encounter Visit Diagnoses Not on filedocumented in this encounter Care Teams Research Pharmacist Relationship Specialty Start Date End Date Rosy Tavarez, BOTTOM FILLER [facility] GENERAL [place] [address] PCP - General General Internal Medicine 02/14/1709/21 documented as of this encounter
--- OUTSIDE RECORDS SUMMARY | 2024-05-15 12:56 | XMS_ITS | Encounter Summary ---
Author Organization [facility] [place] [address] Care Team Providers Care Equity Research Associate Name Role Phone Che Sharpe Primary Care Provider + Encounter Details Date Type Department Care Team (Late st Contact Info) Description 07/25/2021 Telephone Rheumatology at [facility] [place] [address] Mayi Durant Social History Tobacco Use Types [...] TH Visit (TeleHealth) Hematology [place] [address] Pelon Wisdom MD [facility] DR HEMATOLOGY [place] [address] documented as of this encounter Visit Diagnoses Not on filedocumented in this encounter Care Teams Equity Research Associate Relationship Specialty Start Date End Date Che Sharpe PA [address] [place] [address] [place] [address] PCP - General Internal Medicine 04/20/20 documented as of this encounter
--- OUTSIDE RECORDS SUMMARY | 2024-05-15 12:56 | XMS_ITS | Encounter Summary ---
[place] [address] Care Team Providers Care General Hardware Salesperson Name Role Phone Che Sharpe Primary Care Provider + Reason for Referral * Consultation (Routine) - Closed Specialty Diagnoses / Procedures Referred By Contac t Referred To Contact Hematology and Oncology Diagnoses Hemochromatosis, unspecified hemochromatosis type Che Sharpe PA [address] [place] [address] [place] [address] [facility] Hem [address]c [address] [place] [address] Referral ID Status Reason Start Date Expiration Date V isits Requested Visits Authorized [id number] Closed Consult, Test & Treat 07/03/2021 07/03/2022 6 6 Encounter Details Date Type Department Care Team (Latest Contact Info) Description 07/03/2021 Transcribe Orders eDH Incoming Referrals [phone] Che Sharpe PA [address] [place] [address] [place] [address] Hemochromatosis, unspecified hemochromatosis type Social History [...] TH Visit (TeleHealth) [place] [address] Pelon Wisdom MD [facility] DR [place]ATOLOGY [place] [address] Scheduled Referrals Name Type Priority Associated Diagnoses Orde r Schedule Referral to Hematology and Oncology Outpatient Referral Routine Hemochromatosis, unspecified hemochromatosis type Ordered: 07/03/2021 documented as of this encounter Visit Diagnoses Diagnosis Hemochromatosis, unspecified hemochromatosis type documented in this encounter Care Teams General Hardware Salesperson Relationship Specialty Start Date End Date Che Sharpe PA [address] [place] [address] [place] [address] PCP - General Internal Medicine 04/20/20 documented as of this encounter
--- OUTSIDE RECORDS SUMMARY | 2024-05-15 12:56 | XMS_ITS | Encounter Summary ---
Author Organization [facility] [place] [address] Care Team Providers Care American Indian Policy Specialist Name Role Phone Rosy Tavarez APRN Primary Care Provider [phone] Encounter Details Date Type Department Care Team (Late Contact Info) Description 09/04/2017 Orders [place] [address] Rosy Tavarez APRN [facility] GENERAL INTERNAL [place] [address] Vitamin D deficiency Social History Tobacco Use [...] TH Visit (TeleHealth) Hematology [place] [address] Pelon Wisdom MD [facility] HEMATOLOGY [place] [address] documented as of this encounter Visit Diagnoses Diagnosis Vitamin D deficiency Unspecified vitamin D deficiency documented in this encounter Care Teams American Indian Policy Specialist Relationship Specialty Start Date End Date Rosy Tavarez APRN [facility] GENERAL INTERNAL [place] [address] PCP - General General Internal Medicine 02/14/1709/21 documented as of this encounter
--- OUTSIDE RECORDS SUMMARY | 2024-05-15 12:56 | XMS_ITS | Encounter Summary ---
Author Organization [facility] Address [facility] [place] [address] Care Team Providers Care Reverse Engineer Name Role Phone Rosy Tavarez GO Primary Care Provider [phone] Encounter Details Date Type Department Care Team (Late st Contact Info) Description 10/21/2017 9:00 AM EDT Office Visit Psychiatry [place] [address] Taye Lagos, PhD Post-traumatic stress disorder, chronic; [...] TH Visit (TeleHealth) [place] [address] Pelon Wisdom MD [facility] HEMATOLOGY [place] [address] documented as of this encounter Visit Diagnoses Diagnosis Post-traumatic stress disorder, chronic SAMPSON (generalized anxiety disorder) Generalized anxiety disorder documented in this encounter Care Teams Reverse Engineer Relationship Specialty Start Date End Date Rosy Tavarez APRN [facility] GENERAL [place] [address] PCP - General General Internal Medicine 02/14/1709/21 documented as of this encounter
--- OUTSIDE RECORDS SUMMARY | 2024-05-15 12:56 | XMS_ITS | Encounter Summary ---
Author Organization [facility] [place] [address] Care Team Providers Care Physiological Chemist Name Role Phone Che Sharpe Primary Care Provider + Encounter Details Date Type Department Care Team (Late st Contact Info) Description 08/15/2021 Telephone Hematology [place] [address] Mely Perez RN Social History Tobacco Use [...] Tomlinson's preference for phlebotomy appts here at [facility] every 3 weeks. RN reassured patient that f/ucontact would be made to discuss further. ----- Message from Mayi Moreau sent at 08/15/2021 1:52 PM EDT ----- Regarding: Bushra patient concern with phlebotomies Hello, Patient has a question about her coming about an alternate plan for phlebotomies. She lives at the [facility] so coming all the way here is not feasible. Please call her back after 3pm. Thanks! [phone] documented in this encounter Plan of Treatment Upcoming Encounters Date Type Department Care Team (Late st Contact Info) Description 05/13/2025 4:00 PM EST TH Visit (TeleHealth) Hematology [place] [address] Pelon Wisdom MD [facility] [place] [address] documented as of this encounter Visit Diagnoses Not on filedocumented in this encounter Care Teams Physiological Chemist Relationship Specialty Start Date End Date Che Sharpe PA [address] [place] [address] [place] [address] PCP - General Internal Medicine 04/20/20 documented as of this encounter
--- OUTSIDE RECORDS SUMMARY | 2024-05-15 12:56 | XMS_ITS | Encounter Summary ---
[place] [address] Care Team Providers Care Third Steel Pourer Name Role Phone Che Sharpe Primary Care [...] HBT - glucose - bloating see also EGD/Tamassee/Solomon Procedures HYDROGEN BREATH TEST HBT - glucose - bloating Jessica Zelaya APRN [facility] [address] [facility] [address] [place] [address] Referral ID Status Reason Start Date Expiration Date V isits Requested Visits Authorized [id number] Closed Consult, Test & Treat 02/09/2021 02/09/2022 1 1 Reason for Visit * Consultation (Routine) - Closed Specialty Diagnoses / Procedures Referred By Contlaura landon Referred To Contact Gastroenterology Diagnoses Diarrhea, unspecified diarrhea Procedures Consult Che Sharpe PA [address] [place] [address] [place] [address] [facility] [address] [place] [address] Referral ID Status Reason Start Date Expiration Date Visits Re quested Visits Authorized [id number] Closed 01/13/2021 01/13/2022 1 1 Encounter Details Date Type Department Care Team (Latest Contact Info) Description 02/09/2021 7:30 AM EDT TH Visit (TeleHealth) [place] [address] Jessica Zelaya APRN [facility] [place] [address] Irritable bowel syndrome with diarrhea (Primary Dx); [...] Elastase, Stool ??? Referral to Gastroenterology ??? Solomon Capsule pH Test Please call the GI department to schedule the investigations if you do not hear from us within 1-2 weeks: [phone]. Please call radiology to schedule your imaging studies at the [facility]. Main radiology scheduling line Direct phone numbers: If you are scheduling an MRI, you can directly call: If you are scheduling a CT, you can directly call: If you are scheduling an ultrasound, you can directly call: Please go to or any [facility] affiliated lab to get any blood [...] Zelaya APRN Department of Gastroenterology and Hepatology [facility] Here is some information on the different [...] disease, or Ulcerative colitis. Also if the smt operator sees any polyps, they will be removed [...] is important to avoid missing small polyps. SOLOMON: this test is usually added onto an endoscopy. This does not impact your breathing or abilityto swallow. During the endoscopy, the SOLOMON sensor will be placed into the esophagus. [...] and Primary Care Providers Louie Rankin MD, [facility] + Philip Huynh MD, CHATO Chad Foreman APRN + Moriah Tobar APRN + Jessica Zelaya APRN [facility] What are functional bowel disorders? These are the most common type of gastrointestinal disorders in the [facility] ??? The most common functional bowel disorder in the [facility] is irritable bowel syndrome (IBS) ??? [...] what is the impact? 15-20% of general [place] population has IBS or FD or both ??? 2nd most common cause for lost work days (after common cold) in [place] ??? Estimated $30 billion dollar cost to [place] economy per year ??? These disorders can [...] patients withimmediate onset of symptoms after infection); alf symptoms are expected in most patients however [...] to you primary care provider and/or local smt operator and share this document. Treatment of functional [...] this approach benefits most patients ??? OTC (narp-pyb-dzyrzzt) medications can be used for ongoing bothersome symptoms as listed below ??? Your provider (PCP or local Gastroenterology provider or [facility] Gastroenterology provider) may decide to use prescription [...] convincing medical evidence is still lacking ??? Tmoq-dxu-rwhkvbl supplements including probiotics are not typically evaluated [...] to decrease antibiotic-associated diarrhea and antibiotic-related infections Hyyo-nhe-Tlipzdd Medications for Functional Gut Disorders Based on [...] a stool softener that is safe for tank terminal gauger usage (no risk of dependency)and the dosage [...] ??? Often a combination of anti-nausea medications (eqhv-sfc-xtbfull or prescription) works better than high doses [...] for misuse/misinterpretation of this information Patient Resources [place] [employer] https://www.gastro.org/practice-guidance/ye-grsjdyi-ohinhk/ topic/ikvwfhdeu-ofqyq-nvfszthg-ibs Badgut.org https://badgut.org/information-centre/n-a-luvoilnan-topics/ibs/ AboutIBS.org https://www.aboutibs.org/ Takkletodate.Zakaz.ua https://www.Coupons Near Me.Zakaz.ua/contents/bghcjwssb-vgdbk-qsrqbkwq-ztaipi-zrm-bfjwmf documented in this encounter Progress Notes * [...] -frequent peptobismol use -mentions [facility] BM: 8-9BM/day, rectal tenesmus, denies BRBpr/melena, denies [...] in public, previously PRNmedications Work: works in [employer] Laboratory studies, imaging, and procedures (in summary [...] Nausea. ??? fluticasone propionate (FLONASE) 50 mcg/actuation [place], Suspension 1 spray daily. ??? riboflavin, Vitamin [...] for Pain.30 tablet 1 ??? Blood-Glucose Meter [facility] Please dispense Salas Metrix meter. E11.9 1 [...] using famotidine PRN. No previous EGD noted; EGD/Solomon off PPI ordered to evaluate for GERD vs functional dyspepsia. Off note, patient does have history of depression and situational anxiety that she is not currently being treated for. Discussed etiology of functional bowel disorders and will discuss neuromodulator therapy in future visits. Patient may continue to use famotidine, bentyl, and imodium as needed for symptom management. Diagnostics: -EGD/SOLOMON off PPI, colonoscopy -GES -Labs: calprotectin, elastase [...] been completed The patient was located in [place] at the time of their visit. TIME SPENT WITH PATIENT Time spent reviewing records prior to this encounter on day of appointment: 5 minutes Time spent during encounter with patient including counselin minutes Time spent documenting encounter after office visit: 10 minutes Jessica Zelaya APR[place] [facility] [place] [address] documented in this encounter Plan of Treatment Upcoming Encounters Date Type Department Care Team (Late st Contact Info) Description 05/13/2025 4:00 PM EST TH Visit (TeleHealth) Hematology [place] [address] Pelon Wisdom MD [facility] [place] [address] Scheduled Referrals Name Type Priority Associated Diagnoses [...] Heartburn documented in this encounter Care Teams Third Steel Pourer Relationship Specialty Start Date End Date Che Sharpe PA [address] [place] [address] [place] [address] PCP - General Internal Medicine 04/20/20 documented as of this encounter
--- OUTSIDE RECORDS SUMMARY | 2024-05-15 12:56 | XMS_ITS | Encounter Summary ---
[place] [address] Care Team Providers Care Employee Communications Coordinator Name Role Phone Rosy Tavarez GO Primary Care Provider Reason for Visit * Reason Onset Date Comments Medication Refill 10/04/2017 Encounter Details Date Type Department Care Team (Late st Contact Info) Description 10/07/2017 Ref[place] [address] Moriah Tobar APRN [address] [place] [address] Social History Tobacco Use Types Packs/Day Years [...] omeprazole (PRILOSEC) 40 mg Capsule, Delayed Release(E.C.) [Moriah Tobar APRN] rifAXIMin (XIFAXIN) 550 mg Tablet [Moriah Tobar, TELEVISION NEWS PHOTOGRAPHER] Preferred pharmacy: [facility] [address] [facility] Comment: documented in this encounter Plan of Treatment Upcoming Encounters Date Type Department Care Team (Late st Contact Info) Description 05/13/2025 4:00 PM EST TH Visit (TeleHealth) Hematology [place] [address] Pelon Wisdom MD [facility] [place] [address] documented as of this encounter Visit Diagnoses Not on filedocumented in this encounter Care Teams Employee Communications Coordinator Relationship Specialty Start Date End Date Rosy Tavarez APRN [facility] [place] [address] PCP - General General Internal Medicine 02/14/17 6/2 05/11 documented as of this encounter
--- OUTSIDE RECORDS SUMMARY | 2024-05-15 12:56 | XMS_ITS | Encounter Summary ---
Author Organization [facility] [place] [address] Care Team Providers Care Bass Singer Name Role Phone Rosy Tavarez GO Primary Care Provider Reason for Visit * Reason Onset Date Comments Transitional Care Management 09/02/2017 Encounter Details Date Type Department Care Team (Late st Contact Info) Description 09/02/2017 Patient Outreach [place] [address] Che Jean, [facility] Transitional Care Management Social History [...] Notes * Telephone Encounter - Che Dasilva [facility] - 09/02/2017 4:38 PM EDT Post Hospital Discharge Call Transitional Care 09/02/2017 Date of Current Admission 08/30/2017 Facility [facility] Date of most recent [...] TH Visit (TeleHealth) Hematology [place] [address] Pelon Wisdom MD [facility] [place] [address] documented as of this encounter Visit Diagnoses Not on filedocumented in this encounter Care Teams Bass Singer Relationship Specialty Start Date End Date Rosy Tavarez APRN [facility] [place] [address] PCP - General General Internal Medicine 02/14/1709/21 documented as of this encounter
--- OUTSIDE RECORDS SUMMARY | 2024-05-15 12:56 | XMS_ITS | Encounter Summary ---
Author Organization [facility] [place] [address] Care Team Providers Care Tentering Machine Feeder Name Role Phone Rosy Tavarez [facility] Primary Care Provider Encounter Details Date Type Department Care Team (Late Contact Info) Description 11/13/2017 Orders [place] [phone] Pricila Andrade APRN [facility] [place] [address] Social History Tobacco Use Types Packs/Day Years [...] TH Visit (TeleHealth) [place]ology [place] [address] Pelon Wisdom MD [facility] [address] [place] [address] documented as of this encounter Procedures Procedure Name Priority Date/Time Associated Diagnosis Comments HEPATITIS B SURFACE ANTIBODY Routine 11/13/2017 3:32 PM EDT documented in this encounter Results * Hepatitis B Surface Antibody (11/13/2017 3:32 PM EDT) Hepatitis B Surface Antibody, Quantitative <3.5 IU/L [facility] Comment: HepB Surface Ab Quant: Unvaccinated: < 8.5 IU/L Vaccinated: > 11.5 IU/L Hepatitis B Surface Antibody Negative [facility] Comment: Patient is presumed to be not vaccinated or immune to HBV infection. Expected Results: Vaccinated: Positive Unvaccinated: Negative Blood specimen (specimen) Venous Draw / Unknown 11/13/2017 3:32 PM EDT 11/13/2017 3:39 PM EDT Narrative Resulting Agency Comment Spec In Lab Pricila Andrade STARCH CRAB CHEMISTRY ORDERABLES [facility] [place] [address] documented in this encounter Visit Diagnoses Not on filedocumented in this encounter Care Teams Tentering Machine Feeder Relationship Specialty Start Date End Date Rosy Tavarez APRN [facility] [place] [address] PCP - General General Internal Medicine 02/14/17 6/05/11 documented as of this encounter
--- OUTSIDE RECORDS SUMMARY | 2024-05-15 12:56 | XMS_ITS | Encounter Summary ---
Author Organization [facility] [place] [address] Care Team Providers Care Canvassing Manager Name Role Phone Rosy Tavarez APRN Primary Care Provider Encounter Details Date Type Department Care Team (Late st Contact Info) Description 09/26/2017 4:00 PM EDT Tech [place] [phone] Moriah Graff APRN [address] [place] [address] Bloating Social History Tobacco Use Types Packs/Day [...] overgrowth (SIBO). 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 The hydrogen production is essentially stable after the administration of lactulose until approximately 140-160 minutes correlating with a slightly delayed orocecal transit time. Signed, Moriah Graff APRN Gastroenterology and Hepatology [place] [id number] P: [phone] F: [phone] Copy: Moriah Tavarez APRN Clinical interpretation is based on the [place] consensus on breath testing published in theAmerican [...] TH Visit (TeleHealth) Hematology [place] [address] Pelon Wisdom MD [facility] [place] [address] documented as of this encounter Visit Diagnoses Diagnosis Bloating Flatulence, eructation, and gas pain documented in this encounter Care Teams Canvassing Manager Relationship Specialty Start Date End Date Rosy Tavarez APRN [facility] [place] [address] PCP - General General Internal Medicine 02/14/1709/21 documented as of this encounter
--- OUTSIDE RECORDS SUMMARY | 2024-05-15 12:56 | XMS_ITS | Encounter Summary ---
Author Organization [facility] [place] [address] Care Team Providers Care Circulation Manager Name Role Phone Jovan Esquivel MD Primary Care Provider [phone] Encounter Details Date Type Department Care Team ([facility] Contact Info) Description 04/05/2020 Ancillary Procedure Radiology Library at [facility] [place] [address] Jovan Esquivel MD PATHOLOGY DEPT [address] [place] [id number] Social History Tobacco Use Types Packs/Day Years [...] Upcoming Encounters Date Type Department Care Team ([facility] Contact Info) Description 05/13/2025 4:00 PM EST TH Visit (TeleHealth) Hematology [place] [address] Pelon Wisdom MD [facility] HEMATOLOGY [place] [address] documented as of this encounter Procedures Procedure Name Priority Date/Time Associated Diagnosis Comments FILM LIBRARY STORAGE ONLY MR HEAD AND SPINE Routine 04/05/2020 12:00 AM EST documented in this encounter Results * Film Library- Storage Only MR Head and Spine (04/05/2020 12:00 AM EST) Narrative RAD - 04/20/2020 9:14 AM EST This exam is auto-finalizing. It's purpose is for storage only. Jovan Esquivel MD IMG FILM LIBRARY ORD ERABLES [place], [place] documented in this encounter Visit Diagnoses Not on filedocumented in this encounter Care Teams Circulation Manager Relationship Specialty Start Date End Date Jovan Esquivel MD PATHOLOGY DEPT [address] [place] [address] PCP - General Pathology 10/12/19 04/19/20 documented as of this encounter
--- OUTSIDE RECORDS SUMMARY | 2024-05-15 12:56 | XMS_ITS | Encounter Summary ---
Author Organization [facility] Address [facility] [place] [address] Care Team Providers Care Ring Sorter Name Role Phone Rosy Tavarez GO Primary Care Provider [phone] Encounter Details Date Type Department Care Team (Late st Contact Info) Description 10/14/2017 11:00 AM EDT Office Visit Psychiatry [place] [address] Taye Lagos, PhD Post-traumatic stress disorder, chronic; [...] TH Visit (TeleHealth) [place]ology [place] [address] Pelon Wisdom MD [facility] [place] [address] documented as of this encounter Visit Diagnoses Diagnosis Post-traumatic stress disorder, chronic SAMPSON (generalized anxiety disorder) Generalized anxiety disorder documented in this encounter Care Teams Ring Sorter Relationship Specialty Start Date End Date Rosy Tavarez APRN [facility] [place] [address] PCP - General General Internal Medicine 02/14/1709/21 documented as of this encounter
--- OUTSIDE RECORDS SUMMARY | 2024-05-15 12:56 | XMS_ITS | Encounter Summary ---
Author Organization [facility] [place] [address] Care Team Providers Care Mold Swabber Name Role Phone Che Sharpe Primary Care Provider + Reason for Referral * Consultation (Routine) - Closed Specialty Diagnoses / Procedures Referred By Contac t Referred To Contact Diagnoses Hemochromatosis associated with compound heterozygous mutation in HFE gene Pelon Wisdom MD [facility] DR HEMATOLOGY [place] [address] [facility] [place] [address] Referral ID Status Reason Start Date Expiration Date V isits Requested Visits Authorized [id number] Closed Consult, Test & Treat 08/15/2021 08/15/2022 18 18 Encounter Details Date Type Department Care Team ([facility] st Contact Info) Description 08/15/2021 Orders Only [place]ematology [place] [address] Pelon Wisdom MD [facility] DR [place]EMATOLOG[place] [address] Hemochromatosis associated with compound heterozygous [...] (TeleHealth) [place]ematology [place] [address] Pelon Wisdom MD [facility] DR HEMATOLOGY [place] [address] Scheduled Referrals Name Type Priority Associated Diagnoses Orde r Schedule Referral to Blood Donor Program/Apheresis Service Outpatient Referral Routine Hemochromatosis associated with compound heterozygous mutation in HFE gene Ordered: 08/15/2021 documented as of this encounter Visit Diagnoses Diagnosis Hemochromatosis associated with compound heterozygous mutation in HFE gene documented in this encounter Care Teams Mold Swabber Relationship Specialty Start Date End Date Che Sharpe PA [address] [place] [address] [place] [address] PCP - General Internal Medicine 04/20/20 documented as of this encounter
--- OUTSIDE RECORDS SUMMARY | 2024-05-15 12:56 | XMS_ITS | Encounter Summary ---
Author Organization [facility] [place] [address] Care Team Providers Care Bridge Ironworker Helper Name Role Phone Che Sharpe Primary Care Provider + Encounter Details Date Type Department Care Team (Late st Contact Info) Description 08/15/2021 Telephone Hematology [place] [phone] Mely Perez RN Social History Tobacco Use [...] with Norma at [facility] and reviewed the plan. Nroma confirmed understanding, and agreed to up date Mary. RN discussed with Dr. Tomlinson. Due to risk for infection with PICC line, Dr. Tomlinson would like patient to come to [facility] for her therapeutic phlebotomies. Referral entered. T/C 08/14/21: This RN took a call from KYLAH Hernandez at [facility]. She saw patient last week and [...] TH Visit (TeleHealth) Hematology [place] [address] Pelon Wisdom MD [facility] [place] [address] documented as of this encounter Visit Diagnoses Not on filedocumented in this encounter Care Teams Bridge Ironworker Helper Relationship Specialty Start Date End Date Che Sharpe PA [address] [place] [address] [place] [address] PCP - General Internal Medicine 04/20/20 documented as of this encounter
--- OUTSIDE RECORDS SUMMARY | 2024-05-15 12:56 | XMS_ITS | Encounter Summary ---
Author Organization [facility] Address [facility] [place] [address] Care Team Providers Care Retail Event And Sales Assistant Name Role Phone Che Sharpe Primary Care Provider + Encounter Details Date Type Department Care Team (Latest Contact Info) Description 07/27/2021 12:00 PM EDT - 07/27/2021 11:59 PM EDT Hospital Encounter [place] [phone] Hemochromatosis associated with compound heterozygous mutation in [...] TH Visit (TeleHealth) [place] [address] Pelon Wisdom MD [facility] DR [place] [address] documented as of this encounter Procedures Procedure [...] EDT) Ferritin 798(H) 15 - 150 ng/mL [facility] Comment: Pediatric reference ranges not verified at [facility], interpret with caution. Reference ranges for females greater than 50 years of age approach values for men, i.e., 30-400 ng/mL. Blood 07/27/2021 12:2 1 PM EDT 07/27/2021 12:51 PM EDT Narrative Resulting Agency Comment Spec In Lab Pelon Wisdom MD CHEMISTRY ORDERA BLES [facility] [place] [address] * Iron and TIBC (07/27/2021 12:21 PM EDT) Iron 112 30 - 150 mcg/dL [facility] TIBC 270 250 - 450 mcg/dL [facility] Iron Saturation 41 20 - 50 % [facility] Blood 07/27/2021 12:2 1 PM EDT 07/27/2021 12:51 PM EDT Narrative Resulting Agency Comment Spec In Lab Pelon Wisdom MD CHEMISTRY ORDERA BLES [facility] [place] [address] * Sedimentation rate (07/27/2021 12:21 PM EDT) Pathologist [facility] Sedimentation Rate Automated 30 2 - 37 mm/hr [facility] Comment: Effective April 01, 2019 new capillary photometric technology has resulted in a change in reference ranges. It is recommended that each ESR result be reviewed with its own age appropriate reference range. Blood 07/27/2021 12:2 1 PM EDT 07/27/2021 12:51 PM EDT Narrative Resulting Agency Comment Spec In Lab Pelon Wisdom MD HEMATOLOGY ORDER ALAN [facility] [place] [address] * CRP, acute inflammation (07/27/2021 12:21 PM EDT) [facility] C-Reactive Protein <3.0 <=4.9 mg/L [facility] Blood 07/27/2021 12:2 1 PM EDT 07/27/2021 12:51 PM EDT Narrative Resulting Agency Comment Spec In Lab Pelon Wisdom MD CHEMISTRY ORDERA BLES [facility] [place] [address] documented in this encounter Visit Diagnoses Diagnosis Hemochromatosis associated with compound heterozygous mutation in HFE gene documented in this encounter Care Teams Retail Event And Sales Assistant Relationship Specialty Start Date End Date Che Sharpe PA [address] [place] [address] [place] [address] PCP - General Internal Medicine 04/20/20 documented as of this encounter
--- OUTSIDE RECORDS SUMMARY | 2024-05-15 12:56 | XMS_ITS | Encounter Summary ---
Author Organization [facility] [place] [address] Care Team Providers Care Shaping Machine Tender Name Role Phone Jovan Esquivel MD Primary Care Provider [phone] Encounter Details Date Type Department Care Team ([facility] Contact Info) Description 03/08/2020 Ancillary Procedure Radiology Library at [facility] [place] [address] Che Sharpe PA [address] [place] [address] [place], [place] [address] Social History Tobacco Use Types Packs/Day Years [...] TH Visit (TeleHealth) Hematology [place] [address] Pelon Wisdom MD [facility] [address] [place] [address] documented as of this encounter Procedures Procedure Name Priority Date/Time Associated Diagnosis Comments FILM LIBRARY STORAGE ONLY MR HEAD Routine 03/08/2020 12:00 AM EST documented in this encounter Results * Film Library- Storage Only MR Head (03/08/2020 12:00 AM EST) Narrative JUSTICE - 05/16/2020 9:25 AM EST This exam is auto-finalizing. It's purpose is for storage only. Che MACKEY [place] FILM LIBRARY ORDERABLES [place], [place] documented in this encounter Visit Diagnoses Not on filedocumented in this encounter Care Teams Shaping Machine Tender Relationship Specialty Start Date End Date Jovan Esquivel MD PATHOLOGY DEPT [address] [place] [address] PCP - General Pathology 10/12/19 04/19/20 documented as of this encounter
--- OUTSIDE RECORDS SUMMARY | 2024-05-15 12:56 | XMS_ITS | Encounter Summary ---
Author Organization [facility] Address [facility] [place] [address] Care Team Providers Care Tank Calibrator Name Role Phone Rosy Tavarez GO Primary Care Provider [phone] Encounter Details Date Type Department Care Team (Late st Contact Info) Description 10/08/2017 3:00 PM EDT Office Visit Psychiatry [place] [address] Taye Lagos, PhD Post-traumatic stress disorder, chronic; [...] TH Visit (TeleHealth) Hematology [place] [address] Pelon Wisdom MD [facility] [place] [address] documented as of this encounter Visit Diagnoses Diagnosis Post-traumatic stress disorder, chronic SAMPSON (generalized anxiety disorder) Generalized anxiety disorder documented in this encounter Care Teams Tank Calibrator Relationship Specialty Start Date End Date Rosy Tavarez APRN [facility] [place] [address] PCP - General General Internal Medicine 02/14/1709/21 documented as of this encounter
--- OUTSIDE RECORDS SUMMARY | 2024-05-15 12:56 | XMS_ITS | Encounter Summary ---
Author Organization [facility] Address [facility] [place] [address] Care Team Providers Care Mixed Crop And Livestock Farmer Name Role Phone Rosy Tavarez GO Primary Care Provider [phone] Reason for Visit * Psychiatric (Routine) - Specialty Diagnoses / Procedures Referred By Contlaura t Referred To Contact Psychiatry Diagnoses Post-traumatic stress disorder, chronic Tara Carlton, PhD [facility] DR [facility] [place] [address] Taye Lagos, PhD Referral ID Status Reason Start Date Expiration Date V isits Requested Visits Authorized [id number] Consult, Test & Treat 07/08/2017 07/08/2018 1 1 Encounter Details Date Type Department Care Team ([facility] st Contact Info) Description 09/13/2017 11:00 AM EDT Office Visit Psychiatry [place] [address] Taye Lagos, PhD Post-traumatic stress disorder, chronic; [...] 11:00 AM EDT DIAGNOSTIC INTERVIEW CPT Code 53222 Location: Outpatient Clinic Time Spent: 60 minutes [...] Ms. Min was born and raised in [place]. She grew up living with her biological [...] TH Visit (TeleHealth) Hematology [place] [address] Pelon Wisdom MD [facility] [place] [address] Scheduled Referrals Name Type Priority Associated Diagnoses Order Schedule Referral to Psychology Outpatient Referral Routine Post-traumatic stress disorder, chronic Ordered: 07/08/2017 documented as of this encounter Visit Diagnoses Diagnosis Post-traumatic stress disorder, chronic SAMPSON (generalized anxiety disorder) Generalized anxiety disorder documented in this encounter Care Teams Mixed Crop And Livestock Farmer Relationship Specialty Start Date End Date Rosy Tavarez APRN [facility] [place] [address] PCP - General General Internal Medicine 02/14/1709/21 documented as of this encounter
--- OUTSIDE RECORDS SUMMARY | 2024-05-15 12:56 | XMS_ITS | Encounter Summary ---
Author Organization [facility] [place] [address] Care Team Providers Care Vessel Master Name Role Phone Rosy Tavarez GO Primary Care Provider Reason for Visit * Reason Onset Date Comments Medication Refill 02/05/2018 Encounter Details Date Type Department Care Team ([facility] st Contact Info) Description 02/05/2018 Refill [place] [address] Jackie Chow Social History Tobacco Use Types [...] be filled michaela. * Telephone Encounter - Jakcie Omalley - 02/05/2018 11:48 AM EDT Please remind every patient that prescription requests can take up to 72 business hours to process Medication Refill Request: Name of Medication: fludrocortisone (FLORINEF) 0.1 mg Tablet Dose as Prescribed: 1 tablet by mouth daily Prescriber: Dr. Saige Costa, Neuro @ Pharmacy Name & Location [[facility]] ?? Pt is requesting to have [...] to confirm that it has been sent. [phone] documented in this encounter Plan of Treatment Upcoming Encounters Date Type Department Care Team (Late st Contact Info) Description 05/13/2025 4:00 PM EST TH Visit (TeleHealth) Hematology [place] [address] Pelon Wisdom MD [facility] [place] [address] documented as of this encounter Visit Diagnoses Not on filedocumented in this encounter Care Teams Vessel Master Relationship Specialty Start Date End Date Rosy Tavarez GO Bennett [facility] [place] [address] PCP - General General Internal Medicine 02/14/17 6/2 05/11 documented as of this encounter
--- OUTSIDE RECORDS SUMMARY | 2024-05-15 12:56 | XMS_ITS | Encounter Summary ---
Author Organization [facility] [place] [address] Care Team Providers Care Drum Puller Name Role Phone Che Sharpe Primary Care Provider + Encounter Details Date Type Department Care Team ([facility] st Contact Info) Description 02/16/2021 Tele[place] [address] Carolyn Beltre Social History Tobacco Use Types [...] patient scheduled for an HBT, GES and EGD/[place]. A letter has been sent asking the patient to contact the office for scheduling. * Telephone Encounter - Carolyn Beltre - 02/22/2021 12:29 PM EDT Left second message for patient to contact the office for scheduling. MIGUEL Zelaya would like the patient scheduled for an HBT, GES and EGD/[place]. * Telephone Encounter - Carolyn Beltre - 02/16/2021 10:01 AM EDT Left message for patient to contact the office for scheduling. MIGUEL Zelaya would like the patient scheduled for an HBT, GES and EGD/[place]. documented in this encounter Plan of Treatment Upcoming Encounters Date Type Department Care Team (Late st Contact Info) Description 05/13/2025 4:00 PM EST TH Visit (TeleHealth) [place] [address] Pelon Wisdom MD [facility] DR HEMATOLOGY [place] [address] documented as of this encounter Visit Diagnoses Not on filedocumented in this encounter Care Teams Drum Puller Relationship Specialty Start Date End Date Che Sharpe PA [address] [place] [address] [place] [address] PCP - General Internal Medicine 04/20/20 documented as of this encounter
--- OUTSIDE RECORDS SUMMARY | 2024-05-15 12:56 | XMS_ITS | Encounter Summary ---
Author Organization [facility] [place] [address] Care Team Providers Care Hospice Home Health Aide Name Role Phone Rosy Tavarez APRN Primary Care Provider Reason for Visit * Reason Onset Date Comments Prior Authorization 10/02/2017 Encounter Details Date Type Department Care Team (Late st Contact Info) Description 10/02/2017 Telephone [place] [phone] Kimberley Amor CMA Prior Authorization Social History Tobacco Use Types [...] Amor CMA - 10/02/2017 10:32 AM EDT [place] [facility] ? ID: [id number] ? Medication xifaxan 550 mg TID for 14 days ? Tried: imodium, pepto, amitriptyline, cholestryamine *treatment failure* ?? Decision: approved for 14 days ?? Tracking ID: [id number] documented in this encounter Plan of Treatment Upcoming Encounters Date Type Department Care Team (Late st Contact Info) Description 05/13/2025 4:00 PM EST TH Visit (TeleHealth) Hematology [place] [address] Pelon Wisdom MD [facility] HEMATOLOGY [place] [address] documented as of this encounter Visit Diagnoses Not on filedocumented in this encounter Care Teams Hospice Home Health Aide Relationship Specialty Start Date End Date Rosy Tavarez, GO [facility] GENERAL [place] [address] PCP - General General Internal Medicine 02/14/1709/21 documented as of this encounter
--- OUTSIDE RECORDS SUMMARY | 2024-05-15 12:56 | XMS_ITS | Encounter Summary ---
Author Organization [facility] [place] [address] Care Team Providers Care Foundation Director Name Role Phone Rosy Tavarez APRN Primary Care Provider [phone] Reason for Visit * Reason Onset Date Comments Medication Refill 09/05/2017 Encounter Details Date Type Department Care Team (Late st Contact Info) Description 09/05/2017 [place] [phone] Robbin Costa MD Medication Refill Social History Tobacco Use Types [...] TH Visit (TeleHealth) Hematology [place] [phone] Pelon Wisdom MD [facility] HEMATOLOGY [place] [address] documented as of this encounter Visit Diagnoses Not on filedocumented in this encounter Care Teams Foundation Director Relationship Specialty Start Date End Date Rosy Tavarez, GO [facility] GENERAL [place] [address] PCP - General General Internal Medicine 02/14/1709/21 documented as of this encounter
--- OUTSIDE RECORDS SUMMARY | 2024-05-15 12:56 | XMS_ITS | Encounter Summary ---
Author Organization [facility] [place] [address] Care Team Providers Care Plan Coordinator Name Role Phone Ceh Sharpe Primary Care Provider + Reason for Visit * Reason Comments Advice Only * Consultation (Routine) - Closed Specialty Diagnoses / Procedures Referred By Contac t Referred To Contact Hematology and Oncology Diagnoses Hemochromatosis, unspecified hemochromatosis type Che Sharpe PA [address] [place] [address] [facility] Hem Onc [address] [place] [address] Referral ID Status Reason Start Date Expiration Date V isits Requested Visits Authorized [id number] Closed Consult, Test & Treat 07/03/2021 07/03/2022 6 6 Encounter Details Date Type Department Care Team (Latest Contact Info) Description 07/27/2021 11:00 AM EDT Office Visit Hematology [place] [address] Pelon Wisdom MD [facility] [place] [address] Oksana Payne APRN [facility] [place] [address] Hemochromatosis associated with compound heterozygous [...] platelets: 324 INTERIM Hx: In office today, mEma Min is here for initial consultation. - [...] PERSONAL and SOCIAL HISTORY ?? Lives in: [place], [place], [place] from [facility]. [facility] is the closest hospital. ?? 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 ?? ETOH: occasional ?? Smoking: No [...] ferritin 173 phlebotomies. She lives closer to [facility] and will arrange for phlebotomy [...] coordinating the care etc.. Pelon Tomlinson MD [facility] CC: NARENDRA Gary Elizabeth C * Pelon Tomlinson MD - 07/27/2021 11:00 AM EDT Images from the original note were not included. [facility] HEMATOLOGY AND ONCOLOGY AT [facility] [address] Date: 07/27/21 Patient Name: Emma Min : 1980 Diagnosis: Hemochromatosis Referral to [site]: [place], [place] Orders: [x] Draw 500ml of blood once every 3 weeks. Hold for Hemoglobin less than 11g/dL LABS: [x] Check ferritin once every 3 phlebotomies [x] Check H/H prior to every phlebotomy. Pelon Tomlinson MD [facility] documented in this encounter Plan of Treatment Upcoming Encounters Date Type Department Care Team (Late st Contact Info) Description 05/13/2025 4:00 PM EST TH Visit (TeleHealth) Hematology [place] [address] Pelon Wisdom MD [facility] [place] [address] documented as of this encounter Results * Ferritin (12/26/2021 12:30 PM EDT) Ferritin 129 15 - 150 ng/mL [facility] Comment: Pediatric reference ranges not verified at [facility], interpret with caution. Reference ranges for females greater than 50 years of age approach values for men, i.e., 30-400 ng/mL. Blood 12/26/2021 12:3 0 PM EDT 12/26/2021 2:19 PM EDT Narrative Resulting Agency Comment Spec In Lab Pelon Wisdom MD CHEMISTRY ORDERA BLES Performing Organization Address City/[facility]/ZIP Co de Phone Number [facility] [place] [address] * CRP, acute inflammation (07/27/2021 12:21 PM EDT) C-Reactive Protein <3.0 <=4.9 mg/L [facility] Blood 07/27/2021 12:2 1 PM EDT 07/27/2021 12:51 PM EDT Narrative Resulting Agency Comment Spec In Lab Pelon Wisdom MD CHEMISTRY ORDERA BLES Performing Organization Address [facility] Co de Phone Number [facility] [place] [address] * Sedimentation rate (07/27/2021 12:21 PM EDT) [...] MD HEMATOLOGY ORDER ALAN Performing Organization Address [facility]/ZIP Co de Phone Number [facility] [place] [address] * Iron and TIBC (07/27/2021 12:21 PM EDT) Iron 112 30 - 150 mcg/dL [facility] TIBC 270 250 - 450 mcg/dL [facility] Iron Saturation 41 20 - 50 % [facility] Blood 07/27/2021 12:2 1 PM EDT 07/27/2021 12:51 PM EDT Narrative Resulting Agency Comment Spec In Lab Pelon Wisdom MD CHEMISTRY ORDERA PORSCHEMukesh Performing Organization Address City/[facility] Co de Phone Number [facility] [place] [address] * (ABNORMAL) Ferritin (07/27/2021 12:21 PM EDT) Ferritin 798(H) 15 - 150 ng/mL [facility] Comment: Pediatric reference ranges not verified at [facility], interpret with caution. Reference ranges for females greater than 50 years of age approach values for men, i.e., 30-400 ng/mL. Blood 07/27/2021 12:2 1 PM EDT 07/27/2021 12:51 PM EDT Narrative Resulting Agency Comment Spec In Lab Pelon Wisdom MD CHEMISTRY ORDERFaith VELAZQUEZ Performing Organization Address [facility] Co de Phone Number [facility] [place] [address] documented in this encounter Visit Diagnoses Diagnosis Hemochromatosis associated with compound heterozygous mutation in HFE gene documented in this encounter Care Teams Plan Coordinator Relationship Specialty Start Date End Date Che Sharpe PA [address] [place] [address] [place] [address] PCP - General Internal Medicine 04/20/20 documented as of this encounter
--- OUTSIDE RECORDS SUMMARY | 2024-05-15 12:56 | XMS_ITS | Encounter Summary ---
Author Organization [facility] Address [facility] [place] [address] Care Team Providers Care Internal Sales Name Role Phone Rosy Tvaarez GO Primary Care Provider [phone] Encounter Details Date Type Department Care Team (Late Contact Info) Description 09/10/2017 External Results Internal Medicine at [facility] [address] [place] [address] Gabriella Martinez, [facility] Social History Tobacco Use Types Packs/Day Years [...] Upcoming Encounters Date Type Department Care Team ([facility] Contact Info) Description 05/13/2025 4:00 PM EST TH Visit (TeleHealth) [place]ology [place] [address] Pelon Wisdom MD [facility] DR HEMATOLOGY [place] [address] documented as of this encounter Procedures Procedure [...] 104(Exter nal Lab) EXTERNAL LAB Carbon Dioxide 23(Sales Specialist al Lab) EXTERNAL LAB Blood Urea Nitrogen 7(Externa l Lab) EXTERNAL LAB Creatinine 0.8(Exter nal Lab) EXTERNAL LAB Glucose 180(ExtH) EXTERNAL LAB Comment:external reference r keesha 74-106 Calcium 9.0(Exter nal Lab) EXTERNAL LAB Protein, Total 7.4(Exter nal Lab) EXTERNAL LAB Albumin 3.6(Exter nal Lab) EXTERNAL LAB Bilirubin, Total 0.62(Exte rnal Lab) EXTERNAL LAB Alkaline Phosphatase 70(Sales Specialist al Lab) EXTERNAL LAB Aspartate Aminotransferase 19(Sales Specialist al Lab) EXTERNAL LAB Alanine Aminotransferase 12(ExtL) EXTERNAL LAB Comment:external reference r keesha 13-61 08/29/2017 2:45 PM EDT Historical Provider EXTERNAL LAB [facility] documented in this encounter Visit Diagnoses Not on filedocumented in this encounter Care Teams Internal Sales Relationship Specialty Start Date End Date Rosy Tavarez, PIPE ORGAN TUNER AND REPAIRER [facility] GENERAL INTERNAL MEDICINE [place], [place] [id number] PCP - General General Internal Medicine 02/14/1709/21 documented as of this encounter
--- OUTSIDE RECORDS SUMMARY | 2024-05-15 12:56 | XMS_ITS | Encounter Summary ---
Author Organization [facility] Address [facility] [place] [address] Care Team Providers Care Pst Supervisor Name Role Phone Rosy Tavarez GO Primary Care Provider Encounter Details Date Type Department Care Team (Late st Contact Info) Description 10/01/2017 3:00 PM EDT Office Visit Psychiatry and [place] [address] Taye Lagos, PhD Post-traumatic stress disorder, chronic; [...] to give something else a try. This press writer provided a more detailed overview of [...] TH Visit (TeleHealth) Hematology [place] [address] Pelon Wisdom MD [facility] HEMATOLOGY [place] [address] documented as of this encounter Visit Diagnoses Diagnosis Post-traumatic stress disorder, chronic SAMPSON (generalized anxiety disorder) Generalized anxiety disorder documented in this encounter Care Teams Pst Supervisor Relationship Specialty Start Date End Date Rosy Tavarez APRN [facility] GENERAL [place] [address] PCP - General General Internal Medicine 02/14/1709/21 documented as of this encounter
--- OUTSIDE RECORDS SUMMARY | 2024-05-15 12:56 | XMS_ITS | Encounter Summary ---
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, without long-term current use of insulin, unspecified laterality Isabel Hicks MD [facility] [place] [address] [place] [address] Referral ID Status Reason Start Date Expiration Date V isits Requested Visits Authorized [id number] Closed Consult, Test & Treat 10/15/2017 10/15/2018 1 1 Reason for Visit * Reason Comments Diabetes Encounter Details Date Type Department Care Team (Latest Contact Info) Description 10/15/2017 11:30 AM EDT Office Visit [place] [address] Isabel Hicks MD Type 2 diabetes mellitus with mild nonproliferative [...] Work on taking your victoza daily. See frame bender about cracked heels (referral at [facility] placed). Will attempt to get welchol for [...] reports glucose was normal. Was admitted at [facility] for this, was found to have migraines. [...] Last ophtho evaluation - January 2017 at [facility] with Dr. Mtz - mild nonproliferative DRJovanny [...] Office Visit from 10/15/2017 in Endocrinology at [place] Weight 77 kg (169 lb 12.8 oz) [...] Work on taking your victoza daily. See frame bender about cracked heels (referral at [facility] placed). Will attempt to get welchol for the high cholesterol. Will also look into other cholesterol meds without lactose. Follow-up in 6 months, come 1 hour early for blood draw in 3L for pre- appointment labs. 25 min of this 40 min face to face visit was spent in counseling the patient on DM mgmt. ISABEL HICKS MD Risk Engineerexotic dancer Section of Endocrinology [facility] documented in this encounter Plan of Treatment Upcoming Encounters Date Type Department Care Team (Late st Contact Info) Description 05/13/2025 4:00 PM EST TH Visit (TeleHealth) Hematology [place] [address] Pelon Wisdom MD [facility] DR HEMATOLOGY [place] [address] Scheduled Referrals Name Type Priority Associated Diagnoses [...] laterality documented in this encounter Care Teams Well Puller Head Relationship Specialty Start Date End Date Rosy Tavarez APRN [facility] [place] [address] PCP - General General Internal Medicine 02/14/17/05/11 documented as of this encounter
--- OUTSIDE RECORDS SUMMARY | 2024-05-15 12:56 | XMS_ITS | Encounter Summary ---
Author [place] [address] Care Team Providers Care Detailer Furniture Name Role Phone Rosy Tavarez GO Primary Care Provider Reason for Visit * Reason Onset Date Comments Bumped Appointment 02/17/2018 Encounter Details Date Type Department Care Team (Late st Contact Info) Description 02/17/2018 [place] [address] Taylor Mtz OD [facility] [place] [address] Bumped Appointment Social History Tobacco Use Types [...] - 02/17/2018 4:04 PM EDT Called to [facility] 02/27/18 1 Y MANDO Mtz. Did not have appt avail until 05/2018, pt decided to seek out provider closer to home before year's end due to insurance coverage documented in this encounter Plan of Treatment Upcoming Encounters Date Type Department Care Team (Late st Contact Info) Description 05/13/2025 4:00 PM EST TH Visit (TeleHealth) Hematology [place] [address] Pelon Wisdom MD [facility] [place] [address] documented as of this encounter Visit Diagnoses Not on filedocumented in this encounter Care Teams Detailer Furniture Relationship Specialty Start Date End Date Rosy Tavarez APRN [facility] [place] [address] PCP - General General Internal Medicine 02/14/1709/21 documented as of this encounter
--- OUTSIDE RECORDS SUMMARY | 2024-05-15 12:56 | XMS_ITS | Encounter Summary ---
Author Organization [facility] [place] [address] Care Team Providers Care Ring Facer Name Role Phone Rosy Tavarez APRN Primary Care Provider [phone] Reason for Visit * Reason Comments Sexual Problem Encounter Details Date Type Department Care Team ([facility] st Contact Info) Description 11/15/2017 5:40 PM EDT Office [place] [address] Rosy Tavarez, [facility] GENER[facility] [place] [address] Low libido Social History Tobacco Use Types [...] Patient Instructions * Patient Instructions* Rosy Tavarez, DRAPERY AND UPHOLSTERY MEASURER - 11/15/2017 3:25 PM EDT Images from [...] more? Visit our health information library at [email or web address] Electricsinfo. You can also view health information on [employer], your personal patient account. Log in or sign uptoday. Enter J925 in the search box to learn more about Decreased Libido in Women: Care Instructions. Current as of: January 25, 2017 Content Version: 11.7 ?? [id number] [employer]. Care instructions adapted under license by [facility]. If you have questions about a medical condition or this instruction, always ask your healthcare professional. [employer] disclaims any warranty or liability for your [...] Doing well, got a job [place] in [place] which is what she wanted and starts [...] TH Visit (TeleHealth) Hematology [place] [address] Pelon Wisdom MD [facility] [place]ATOLOGY [place] [address] documented as of this encounter Visit Diagnoses Diagnosis Low libido documented in this encounter Care Teams Ring Facer Relationship Specialty Start Date End Date Rosy Tavarez APRN [facility] GENER[facility] [place] [address] PCP - General General Internal Medicine 02/14/1709/21 documented as of this encounter
--- OUTSIDE RECORDS SUMMARY | 2024-05-15 12:56 | XMS_ITS | Encounter Summary ---
Author Organization [facility] [place] [address] Care Team Providers Care Director Of Quantitative Research Name Role Phone Che Sharpe Primary Care Provider + Encounter Details Date Type Department Care Team (Late st Contact Info) Description 07/31/2021 Telephone Hematology [place] [address] Mely Perez RN Social History Tobacco Use [...] Miscellaneous Notes * Telephone Encounter - Mely Perez, RN - 07/31/2021 1:59 PM EDT Call placed to [facility] [phone] Spoke w/ [employer] / INFUSION Services to be provided for pt are: H/H q3wks w/phlebotomy; FERRITIN to be drawn EVERY 3RD phlebotomy. To start on 08/08 Orders faxed to [phone] DX: Hemachromatosis PLAN: labs/phlebotomy q3 weeks, check Ferritin every 3rd phlebotomy. Labs/MD f/u on 02/01/22. documented in this encounter Plan of Treatment Upcoming Encounters Date Type Department Care Team (Late st Contact Info) Description 05/13/2025 4:00 PM EST TH Visit (TeleHealth) Hematology [place] [address] Pelon Wisdom MD [facility] DR [place] [address] documented as of this encounter Visit Diagnoses Not on filedocumented in this encounter Care Teams Director Of Quantitative Research Relationship Specialty Start Date End Date Che Sharpe PA [address] [place] [address] [place] [address] PCP - General Internal Medicine 04/20/20 documented as of this encounter
--- OUTSIDE RECORDS SUMMARY | 2024-05-15 12:56 | XMS_ITS | Encounter Summary ---
Author Organization [facility] [place] [address] Care Team Providers Care Educational Sign Language Interpreter Name Role Phone Rosy Tavarez SERVICE CLERK Primary Care Provider Encounter Details Date Type Department Care Team (Late st Contact Info) Description 10/01/2017 Orders Only [place] [address] Moriah Tobar, SERVICE CLERK [address] [place] [address] Social History Tobacco Use Types Packs/Day Years [...] TH Visit (TeleHealth) Hematology [place] [address] Pelon Wisdom MD [facility] HEMATOLOGY [place] [address] documented as of this encounter Visit Diagnoses Not on filedocumented in this encounter Care Teams Educational Sign Language Interpreter Relationship Specialty Start Date End Date Rosy Tavarez, SERVICE CLERK [facility] GENERAL [place] [address] PCP - General General Internal Medicine 02/14/1709/21 documented as of this encounter
--- OUTSIDE RECORDS SUMMARY | 2024-05-15 12:56 | XMS_ITS | Encounter Summary ---
[place] [address] Care Team Providers Care Reservoir Engineering Manager Name Role Phone Rosy Tavarez GO Primary Care Provider Reason for Visit * Reason Onset Date Comments Prior Authorization 11/18/2017 Osphena 60 m g tablets Encounter Details Date Type Department Care Team (Late st Contact Info) Description 11/18/2017 Telephone [place] [address] Stephanie Brewer CCMA Prior Authorization (Osphena 60 [...] Authorization for Primary [place] [address] Denied: X Case/Reference #: [id number] Additional Information from Insurance carrier: * Telephone Encounter - Stephanie Brewer CCMA - 11/18/2017 7:33 AM EDT Medication Prior Authorization for Primary [place] [address] Patient: Emma Min Patient : 1980 Subscriber Insurance: [place] [employer] Insurance Phone #: Sent via: [employer]/Fax#: [id number] Physician: Rosy Tavarez APRN Return [...] TH Visit (TeleHealth) Hematology and Oncology at [place] [phone] Pelon Wisdom MD [facility] DR HEMATOLOGY [place] [address] documented as of this encounter Visit Diagnoses Not on filedocumented in this encounter Care Teams Reservoir Engineering Manager Relationship Specialty Start Date End Date Rosy Tavarez APRN [facility] GENERAL [place] [address] PCP - General General Internal Medicine 02/14/17 6/2 05/11 documented as of this encounter
--- OUTSIDE RECORDS SUMMARY | 2024-05-15 12:56 | XMS_ITS | Encounter Summary ---
Author Organization [facility] [address] Care Team Providers Care Horser Up Name Role Phone Rosy Tavarez [facility] Primary Care Provider [phone] Reason for Visit * Reason Comments Loss of Consciousness * Consultation (Urgent) - Specialty Diagnoses / Procedures Referred By Contlaura t Referred To Contact Neurology Diagnoses Intractable chronic migraine without aura and with status migrainosus Rosy Tavarez, GO [facility] [place] [address] [facility] Neurology [address] [place] [phone] Referral ID Status Reason Start Date Expiration Date Visits Requested Visits Authorized [id number] Specialty Service Requested 08/30/2017 08/30/2018 1 1 Encounter Details Date Type Department Care Team ([facility] st Contact Info) Description 09/05/2017 1:30 PM EDT Office [place] [phone] Maddie Terrazas MD [facility] [place] [address] Robbin Costa MD Syncope, unspecified syncope type; Migraine without aura [...] 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 She was taken to [facility]. BP on arrival was 89/53. Labs were [...] and returned approximately in the summer of 2016. In the last 6 months she has [...] ??? Anxiety ??? Depression Medications: Medications 09/05/17 0258 Medication Sig Taking? VICTOZA 2-SHANA 0.6 mg/0.1 [...] L Elbow flexion 5/5 R, 5/5 L Aerial Crop Duster LE: 5/5 R, 5/5 L Hip flexion [...] not very frequent (1-2 times per month), polo prescribe eletriptan for breakthrough, and she can [...] Costa MD Neurology Resident, PGY-4 Personal Pager [phone] 09/05/2017 Attending attestation note: I discussed the [...] TH Visit (TeleHealth) Hematology [place] [address] Pelon Wisdom MD [facility] [place] [address] documented as of this encounter Visit Diagnoses [...] Gluteal documented in this encounter Care Teams Horser Up Relationship Specialty Start Date End Date Rosy Tavarez, GO [facility] [place] [address] PCP - General General Internal Medicine 02/14/17 605/11 documented as of this encounter
--- OUTSIDE RECORDS SUMMARY | 2024-05-15 12:56 | XMS_ITS | Encounter Summary ---
Author Organization Formerly [facility] [place] [address] Care Team Providers Care Teacher Theater Arts Name Role Phone Che Sharpe Primary Care Provider + Encounter Details Date Type Department Care Team (Late st Contact Info) Description 02/16/2021 Telephone [place] [address] Donald Benavides Social History Tobacco Use Types [...] calls can be handled by: Motility Lab Sock Knitting Machine Operator documented in this encounter Plan of Treatment Upcoming Encounters Date Type Department Care Team (Late st Contact Info) Description 05/13/2025 4:00 PM EST TH Visit (TeleHealth) Hematology [place] [address] Pelon Wisdom MD [facility] DR [place] [address] documented as of this encounter Visit Diagnoses Not on filedocumented in this encounter Care Teams Teacher Theater Arts Relationship Specialty Start Date End Date Che Sharpe PA [address] [place] [address] [place] [address] PCP - General Internal Medicine 04/20/20 documented as of this encounter
--- OUTSIDE RECORDS SUMMARY | 2024-05-15 12:56 | XMS_ITS | Encounter Summary ---
Author Organization [facility] Address [facility] [place] [address] Care Team Providers Care Tube Molder Fiberglass Name Role Phone Rosy Tavarez GO Primary Care Provider Encounter Details Date Type Department Care Team (Late st Contact Info) Description 10/28/2017 9:00 AM EDT Office Visit Psychiatry [place] [address] Taye Lagos, PhD Post-traumatic stress disorder, chronic; [...] vivo exposures of talking male employees in [employer] * Ned Groevs, PhD - 10/28/2017 9:00 AM EDT I [...] TH Visit (TeleHealth) H[place]ology [place] [address] Pelon Wisdom MD [facility] [place] [address] documented as of this encounter Visit Diagnoses Diagnosis Post-traumatic stress disorder, chronic SAMPSON (generalized anxiety disorder) Generalized anxiety disorder documented in this encounter Care Teams Tube Molder Fiberglass Relationship Specialty Start Date End Date Rosy Tavarez APRN [facility] [place] [address] PCP - General General Internal Medicine 02/14/1709/21 documented as of this encounter
--- OUTSIDE RECORDS SUMMARY | 2024-05-15 12:56 | XMS_ITS | Encounter Summary ---
Author Organization Formerly [facility] [place] [address] Care Team Providers Care Assistant Housekeeping Manager Name Role Phone Che Sharpe Primary Care Provider + Encounter Details Date Type Department Care Team (Late st Contact Info) Description 08/01/2021 Telephone Hematology [place] [phone] Mely Perez RN Social History Tobacco Use [...] TH Visit (TeleHealth) Hematology [place] [address] Pelon Wisdom MD [facility] [place] [address] documented as of this encounter Procedures Procedure [...] (07/31/2021 8:00 AM EDT) Ferritin 678(A) 6 - 252 EXTERNAL LAB Blood 07/31/2021 8:00 AM EDT Historical Provider CHEMISTRY ORDERAB LES Performing Organization Address City/[facility]/ZIP Co de Phone Number EXTERNAL LAB documented in this encounter Visit Diagnoses Not on filedocumented in this encounter Care Teams Assistant Housekeeping Manager Relationship Specialty Start Date End Date Che Sharpe PA [address] [place] [address] [place] [address] PCP - General Internal Medicine 04/20/20 documented as of this encounter
--- OUTSIDE RECORDS SUMMARY | 2024-05-15 12:56 | XMS_ITS | Encounter Summary ---
Author Organization [facility] [place] [address] Care Team Providers Care Bookbinder Apprentice Name Role Phone Rosy Tavarez [facility] Primary Care Provider Encounter Details Date Type Department Care Team (Late Contact Info) Description 11/13/2017 Orders [place] [phone] Pricila Andrade APRN [facility] [place] [address] Social History Tobacco Use Types Packs/Day Years [...] TH Visit (TeleHealth) [place] [phone] Pelon Wisdom MD [facility] DR [place] [address] documented as of this encounter Procedures Procedure Name Priority Date/Time Associated Diagnosis Comments QUANTIFERON-TB GOLD Routine 11/13/2017 3 :32 PM EDT documented in this encounter Results * QuantiFERON-TB Gold (11/13/2017 3:32 PM EDT) Quantiferon Nil 0.016 IU/mL [facility] QFT TB Ag-Nil 0.002 IU/mL [facility] Quantiferon Mitogen-Nil >10.000 IU/mL [facility] Quantiferon-TB Gold Negative Negative [facility] Quantiferon Tb Interp M. tuberculosis [...] immune function, or other individual immunological factors. [facility] Comment: ?The performance of the [...] Agency Comment Spec In Lab Pricila Andrade C.O.D. CLERK CHEMISTRY ORDERABLES [facility] [place] [address] documented in this encounter Visit Diagnoses Not on filedocumented in this encounter Care Teams Bookbinder Apprentice Relationship Specialty Start Date End Date Rosy Tavarez APRN [facility] [place] [address] PCP - General General Internal Medicine 02/14/17 6/2 05/11 documented as of this encounter
--- OUTSIDE RECORDS SUMMARY | 2024-05-15 12:56 | XMS_ITS | Encounter Summary ---
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 She stated that focusing [...] TH Visit (TeleHealth) Hematology [place] [address] Pelon Wisdom MD [facility] [place]OLOG[place] [address] documented as of this encounter Visit Diagnoses Diagnosis Post-traumatic stress disorder, chronic SAMPSON (generalized anxiety disorder) Generalized anxiety disorder documented in this encounter Care Teams Tube Coremaker Relationship Specialty Start Date End Date Rosy Tavarez APRN [facility] GENER[place] [address] PCP - General General Internal Medicine 02/14/1709/21 documented as of this encounter
--- OUTSIDE RECORDS SUMMARY | 2024-05-15 12:56 | XMS_ITS | Encounter Summary ---
Author Organization Formerly [facility] [place] [address] Care Team Providers Care Gauger Delivery Name Role Phone Rosy Tavarez APRN Primary Care Provider Reason for Visit * Reason Onset Date Comments Other 09/02/2017 Encounter Details Date Type Department Care Team ([facility] st Contact Info) Description 09/02/2017 [place] [phone] Robbin Costa MD Other Social History Tobacco Use Types Packs/Day [...] Costa MD to Me ??? Aliyah Lantigua R ?? 09/02/17 11:29 AM Hi Laura, I can see her this week on [...] the day Best number to reach caller: [phone] Reason for call: Headache Is this the [...] TH Visit (TeleHealth) Hematology [place] [address] Pelon Wisdom MD [facility] DR HEMATOLOGY [place] [address] documented as of this encounter Visit Diagnoses Not on filedocumented in this encounter Care Teams Gauger Delivery Relationship Specialty Start Date End Date Rosy Tavarez APRN [facility] GENERAL [place] [address] PCP - General General Internal Medicine 02/14/1709/21 documented as of this encounter
--- OUTSIDE RECORDS SUMMARY | 2024-05-15 12:56 | XMS_ITS | Encounter Summary ---
Author Organization [facility] [place] [address] Care Team Providers Care Associate Professor Of Counseling Name Role Phone Rosy Tavarez BANNER Primary Care Provider Encounter Details Date Type Department Care Team (Late Contact Info) Description 11/13/2017 Orders [place] [phone] Pricila Andrade APRN [facility] [place] [address] Social History Tobacco Use Types Packs/Day Years [...] TH Visit (TeleHealth) H[place]ology [place] [address] Pelon Wisdom MD [facility] DR [place] [address] documented as of this encounter Procedures Procedure Name Priority Date/Time Associated Diagnosis Comments VARICELLA ZOSTER ANTIBODY, IGG Routine 11/13/2017 3:32 PM EDT documented in this encounter Results * Varicella zoster Antibody, IgG (11/13/2017 3:32 PM EDT) Varicella Zoster Antibody IgG Pos [facility] Blood specimen (specimen) Venous Draw / Unknown 11/13/2017 3:32 PM EDT 11/14/2017 7:11 AM EDT Narrative Resulting Agency Comment Spec In Lab Pricila Andrade SYSTEMS ARCHITECTURE ANALYST IMMUNOLOGY ORDERABLE S [facility] [place] [address] documented in this encounter Visit Diagnoses Not on filedocumented in this encounter Care Teams Associate Professor Of Counseling Relationship Specialty Start Date End Date Rosy Tavarez APRN [facility] [place] [address] PCP - General General Internal Medicine 02/14/17 6/05/11 documented as of this encounter
--- OUTSIDE RECORDS SUMMARY | 2024-05-15 12:56 | XMS_ITS | Encounter Summary ---
Author Organization [facility] [place] [address] Care Team Providers Care Roller Structural Mill Name Role Phone Che Sharpe Primary Care Provider + Reason for Visit * Reason Comments Eye Exam * Consultation (Urgent) - Closed Specialty Diagnoses / Procedures Referred By Contlaura t Referred To Contact Ophthalmology Diagnoses Unspecified visual disturbance Che Sharpe PA [address] [place] [address] Isis Marcelino MD [facility] [place] [address] Referral ID Status Reason Start Date Expiration Date V isits Requested Visits Authorized [id number] Closed Consult, Test & Treat Connection Center PCP Updated and/or Approved 03/26/2020 03/26/2021 6 6 Encounter Details Date Type Department Care Team (Late st Contact Info) Description 05/16/2020 9:00 AM EST Office [place] [address] Isis Marcelino MD [facility] [place] [address] Unspecified visual disturbance; Visual field defects Social [...] Ocular history of diabetic retinopathy (diagnosed by [facility] in 2018) Currently taking diamox 250 mg [...] eyes. - MR head on 04/05/2020 at [facility] were reviewed with normal findings. - [...] TH Visit (TeleHealth) Hematology [place] [address] Pelon Wisdom MD [facility] DR [place] [address] documented as of this encounter Procedures Procedure [...] Normal discs Isis Marcelino MD OPHTHALMOLOGY SE RVICES ORDERABLES * Sensorimotor Exam [Pr Special Eye Exam] - OU - Both Eyes (05/16/2020 11:01 AM EST) Anatomical Region Laterality Modality Other Narrative 05/16/2020 11:01 AM EST Orthotropic in all directions of gaze at distance. Orthotropic at near. Isis Marcelino MD OPHTHALMOLOGY SE RV[facility] ORDERABLES * Oct Optic Nerve - OU - Both Eyes (05/16/2020 11:00 AM EST) Anatomical Region Laterality Modality Other Narrative 05/16/2020 11:00 AM EST Right Eye Quality was good. Left Eye Quality was good. Notes [place] [facility] OCT OD: ??Average RNFL: 116, classification = borderline above OS: ??Average RNFL: 116, classification = borderline above Isis Marcelino MD OPHTHALMOLOGY SE [facility] ORDERABLES * Automated Visual Field - Extended [...] OS: Normal Isis Marcelino MD OPHTHALMOLOGY SE [facility] ORDERABLES documented in this encounter Visit Diagnoses Diagnosis Unspecified visual disturbance Visual field defects Visual field defect, unspecified documented in this encounter Care Teams Roller Structural Mill Relationship Specialty Start Date End Date Che Sharpe PA [address] [place] [address] [place] [address] PCP - General Internal Medicine 04/20/20 documented as of this encounter
--- OUTSIDE RECORDS SUMMARY | 2024-05-15 12:57 | XMS_ITS | Encounter Summary ---
Author Organization [facility] [place] [address] Care Team Providers Care General Labor Name Role Phone Leeanna Cohn MD Primary Care Provider [phone] Reason for Visit * Reason Comments GI Problem * Consultation (Routine) - Closed Specialty Diagnoses / Procedures Referred By Luana landon Referred To Contact Gastroenterology Diagnoses Acute superficial gastritis without hemorrhage Rosy Tavarez, GO [facility] [place] [address] [facility] [address] [place] [address] Referral ID Status Reason Start Date Expiration Date V isits Requested Visits Authorized [id number] Closed Specialty Service Requested 11/20/2016 11/20/2017 1 1 Encounter Details Date Type Department Care Team ([facility] st Contact Info) Description 02/11/2017 12:30 PM EDT Office [place] [address] Moriah Tobar, STRAP FOLDING MACHINE OPERATOR [address] [place] [address] Irritable bowel syndrome with diarrhea; Bloating; Gastroesophageal [...] Tobar APRN - 02/11/2017 12:30 PM EDT REEFER TRUCK DRIVER: Moriah Tobar APRN PCP: Rosy Tavarez APRN [...] colonoscopy done approximately 6 years ago in [place]. Unremarkable findings. Was treated for IBS. Has been watching her diet. Approximately one year ago was seen in [place]. She did not see a GI specialist, but they did do an EGD. Was told there was some redness and irritation. Otherwise unremarkable. Reflux symptoms on a nightly basis. Currently taking ranitidine for acid reflux symptoms. Was previously taking omeprazole. This helped with the heartburn symptoms. She stopped taking this when she moved to [place] because she forgot to transfer this medication [...] SOCIAL HISTORY Currently unemployed. Did work in [employer] at [facility] until she moved. . Has [...] reports that a colonoscopy was done in [place] approximately 6 years ago and was unremarkable. [...] this 60 minute visit were spent in [id number] discussion and counseling the patientas detailed per above. Signed, Moriah Tobar APRN 02/11/17 1:26 PM Section of Gastroenterology & Hepatology [facility] documented in this encounter Miscellaneous Notes * Addendum Note - Charisma Singh - 02/11/2017 1:32 PM EDTAddended by: CHARISMA SINGH on: 02/11/2017 01:32 PM Modules accepted: Orders documented in this encounter Plan of Treatment Upcoming Encounters Date Type Department Care Team (Late st Contact Info) Description 05/13/2025 4:00 PM EST TH Visit (TeleHealth) [place] [address] Pelon Wisdom MD [facility] [address] [place] [address] documented as of this encounter Procedures Procedure Name Priority Date/Time Associated Diagnosis Comments TISSUE TRANSGLUTAMINASE, IGA Routine 02/11/2017 1:48 PM EDT Irritable bowel syndrome with diarrhea IGA Routine 02/11/2017 1:48 PM EDT Irritable bowel syndrome with diarrhea documented in this encounter Results * IgA (02/11/2017 1:48 PM EDT) IgA 289 70 - 400 mg/dL [facility] Blood specimen (specimen) 02/11/2017 1:48 PM EDT 02/11/2017 1:55 PM EDT Narrative Resulting Agency Comment Spec In Lab Moriah Tobar STRAP FOLDING MACHINE OPERATOR CHEMISTRY ORDERA BLES Performing Organization Address [facility] Co de Phone Number [facility] [place] [place] [address] * Tissue transglutaminase, IgA (02/11/2017 1:48 PM EDT) TTG IgA Ab 0.6 0.1 - 10.0 u/ml [facility] Comment: Negative = <7 U/mL Equivocal = 7-10 U/mL Positive = >10 U/mL Blood specimen (specimen) 02/11/2017 1:48 PM EDT 02/12/2017 7:23 AM EDT Narrative Resulting Agency Comment Spec In Lab Moriah Tobar STRAP FOLDING MACHINE OPERATOR IMMUNOLOGY ORDER ALAN Performing Organization Address [facility] de Phone Number [facility] [place] [place] [address] documented in this encounter Visit Diagnoses Diagnosis Irritable bowel syndrome with diarrhea Irritable bowel syndrome Bloating Flatulence, eructation, and gas pain Gastroesophageal reflux disease, esophagitis presence not specified documented in this encounter Care Teams General Labor Relationship Specialty Start Date End Date Leeanna Cohn MD [address] [place] [address] PCP - General 03/14/10 02/13/17 documented as of this encounter
--- OUTSIDE RECORDS SUMMARY | 2024-05-15 12:57 | XMS_ITS | Encounter Summary ---
Author Organization [facility] Address [facility] Nicolas meyer [place] [id number] Care Team Providers Care Log Cut Off Sawyer Name Role Phone Rosy Tavarez GO Primary Care Provider Reason for Visit * Psychiatric (Routine) - Closed Specialty Diagnoses / Procedures Referred By Contac t Referred To Contact Psychiatry Diagnoses Anxiety Depression, unspecified depression type Laura Mcintyre MD [facility] [place] [address] You Robertson, [place] [facility] [place] [address] Referral ID Status Reason Start Date Expiration Date V isits Requested Visits Authorized [id number] Closed Consult, Test & Treat 02/08/2017 02/08/2018 1 1 Encounter Details Date Type Department Care Team (Late st Contact Info) Description 04/16/2017 2:00 PM EST Office Visit Psychiatry and Behavioral Health at [place] [phone] You Robertson, PhD Major depressive disorder, recurrent episode, moderate; Insomnia, [...] EST Psychological Services Initial Evaluation 50 mins Rupesh Min is a 37 y.o. year old [...] she recently [place] (summer this year[place] [facility] [place] and she ended the job she had in [place] due to the long commute. She notices that she has become more depressed since she stopped working. Mental Status Examination: General Appearance: Appropriately dressed and groomed Speech: Normal rate and rhythm Mood: Dysphoric Affect: Appropriate Thought content/process: Thought process logical and linear. Cognitive Function: While not formally tested, function appears to be WNL DSM 5 Diagnosis and Recommendations: Conclusions/Tx Recommendations: Rupesh Min is currently experiencing symptoms consistent withrecurrent [...] TH Visit (TeleHealth) [place] [address] Pelon Wisdom MD [facility] [place] [address] Scheduled Referrals Name Type Priority Associated Diagnoses Orde r Schedule Referral to Psychology Outpatient Referral Routine Anxiety Depression, unspecified depression type Ordered: 02/08/2017 documented as of this encounter Visit Diagnoses Diagnosis Major depressive disorder, recurrent episode, moderate Insomnia, unspecified type Anxiety Anxiety state, unspecified documented in this encounter Care Teams Log Cut Off Sawyer Relationship Specialty Start Date End Date Rosy Tavarez APRN [facility] [place] [address] PCP - General General Internal Medicine 02/14/1709/21 documented as of this encounter
--- OUTSIDE RECORDS SUMMARY | 2024-05-15 12:57 | XMS_ITS | Encounter Summary ---
Author Organization [facility] [place] [address] Care Team Providers Care Community Health Program Coordinator Name Role Phone Rosy Tavarez APRN Primary Care Provider [phone] Reason for Visit * Reason Onset Date Comments Prior Authorization 03/21/2017 Encounter Details Date Type Department Care Team (Late st Contact Info) Description 03/21/2017 Tele[place] [phone] Jackie Monahan Prior Authorization Social History Tobacco [...] for request: TYPE II DM Health plan: [employer] (FAX) Authorizing product support sales representative name: EBEN Faxed to health plan on: 03/21/17 Health plan decision: DENIED Quantity approved: PLEASE USE PREFERRED DRUG LIST MEDICATION: METFORMIN AT 2,000MG PER DAY FOR AT LEAST THREE MONTHS, CONCURRENTLY WITH BYETTA, BYDUREON, AND VICTOZA. Authorization number: [id number] Start date: End date: documented in this encounter Plan of Treatment Upcoming Encounters Date Type Department Care Team (Late st Contact Info) Description 05/13/2025 4:00 PM EST TH Visit (TeleHealth) [place] [address] Pelon Wisdom MD [facility] [place] [address] documented as of this encounter Visit Diagnoses Not on filedocumented in this encounter Care Teams Community Health Program Coordinator Relationship Specialty Start Date End Date Rosy Tavarez, ELECTRICAL MAINTENANCE TECHNICIAN [facility] [place] [address] PCP - General General Internal Medicine 02/14/17 6/2 05/11 documented as of this encounter
--- OUTSIDE RECORDS SUMMARY | 2024-05-15 12:57 | XMS_ITS | Encounter Summary ---
Author Organization [facility] [place] [address] Care Team Providers Care Crop Consultant Name Role Phone Rosy Tavarez APRN Primary Care Provider Encounter Details Date Type Department Care Team (Late st Contact Info) Description 03/29/2017 Telephone [facility]ology at [facility] [place] [address] Ольга Carter LPN Social History Tobacco Use [...] TH Visit (TeleHealth) Hematology [place] [address] Pelon Wisdom MD [facility] H[place]ATOLOG[place] [address] documented as of this encounter Visit Diagnoses Not on filedocumented in this encounter Care Teams Crop Consultant Relationship Specialty Start Date End Date Rosy Tavarez, CHEMIST FOOD [facility] GENER[place] [address] PCP - General General Internal Medicine 02/14/1705/11 documented as of this encounter
--- OUTSIDE RECORDS SUMMARY | 2024-05-15 12:57 | XMS_ITS | Encounter Summary ---
Author Organization [facility] [place] [address] Care Team Providers Care Bike Designer Name Role Phone Rosy Tavarez GO Primary Care Provider Encounter Details Date Type Department Care Team (Late st Contact Info) Description 04/10/2017 Telephone Psychiatry [place] [phone] Olga Daniels MD Social History Tobacco Use Types Packs/Day [...] TH Visit (TeleHealth) Hematology [place] [address] [facility] [place] [address] documented as of this encounter Visit Diagnoses Not on filedocumented in this encounter Care Teams Bike Designer Relationship Specialty Start Date End Date Rosy Tavarez, GO [facility] [place] [address] PCP - General General Internal Medicine 02/14/17 6/2 05/11 documented as of this encounter
--- OUTSIDE RECORDS SUMMARY | 2024-05-15 12:57 | XMS_ITS | Encounter Summary ---
Author Organization [facility] [place] [address] Care Team Providers Care Avionics Systems Integration Specialist Name Role Phone Rosy Tavarez APRN Primary Care Provider Reason for Referral * Physical Therapy (Routine) - Closed Specialty Diagnoses / Procedures Referred By Contlaura t Referred To Contact Physical Therapy Diagnoses Pain, chest wall Rosy Tavarez APRN [facility] [address] [place] [address] Referral ID Status Reason Start Date Expiration Date V isits Requested Visits Authorized [id number] Closed Evaluate and Treat 03/12/2017 09/08/2017 10 10 Reason for Visit * Reason Comments Follow-up Encounter Details Date Type Department Care Team (Late st Contact Info) Description 03/12/2017 9:00 AM EST Office [place] [address] Rosy Tavarez APRN [facility] [address] [place] [address] Pain, chest wall Social History Tobacco Use [...] Patient Instructions * Patient Instructions* Rosy Tavarez, CLINICAL TECHNOLOGIST - 03/12/2017 9:13 AM EST Images from [...] include drinking lots of fluids and taking vrau-tmk-reiqowp pain medicine. You will probably feel better [...] of fluids you drink. ?? Take an hjtg-hzk-bzeytcl pain medicine, such as acetaminophen (Tylenol), ibuprofen (Advil, Motrin), or naproxen (Aleve). Read and follow all instructions on the label. ?? Before you use cough and cold medicines, check the label. These medicines may not be safe for young children or for people with certain health problems. ?? Be careful when taking cnqh-eaa-bhyfshr cold or flu medicines and Tylenol at [...] more? Visit our health information library at [email or web address]. You can also view health information on Tiny Pictures, your personal patient account. Log in or sign uptoday. Enter K520 in the search box to learn more about Upper Respiratory Infection (Cold): Care Instructions. Current as of: August 31, 2016 Content Version: 11.4 ?? 4180-3535 Han grass biomass. Care instructions adapted under license by [facility]. If you have questions about a [...] TH Visit (TeleHealth) [place] [address] Pelon Wisdom MD [facility] DR HEMATOLOG[place] [address] Scheduled Referrals Name Type Priority Associated Diagnoses [...] respiration documented in this encounter Care Teams Avionics Systems Integration Specialist Relationship Specialty Start Date End Date Rosy Tavarez APRN [facility] [place] [address] PCP - General General Internal Medicine 02/14/1709/21 documented as of this encounter
--- OUTSIDE RECORDS SUMMARY | 2024-05-15 12:57 | XMS_ITS | Encounter Summary ---
Author Organization [facility] [address] Care Team Providers Care Pelletising Extruder Operator Name Role Phone Rosy Tavarez APRN Primary Care Provider Encounter Details Date Type Department Care Team (Late Contact Info) Description 04/24/2017 Notes [place] [phone] Crys Coe, RN Social History Tobacco Use [...] TH Visit (TeleHealth) [place] [phone] Pelon Wisdom MD [facility] DR HEMATOLOGY [place] [address] documented as of this encounter Visit Diagnoses Not on filedocumented in this encounter Care Teams Pelletising Extruder Operator Relationship Specialty Start Date End Date Rosy Tavarez APRN [facility] [place] [address] PCP - General General Internal Medicine 02/14/1709/21 documented as of this encounter
--- OUTSIDE RECORDS SUMMARY | 2024-05-15 12:57 | XMS_ITS | Encounter Summary ---
Author [facility] [place] [address] Care Team Providers Care Guard Museum Name Role Phone Rosy Tavarez GO Primary Care Provider Encounter Details Date Type Department Care Team (Late Contact Info) Description 04/25/2017 Telephone Psychiatry [place] [phone] Olga Daniels MD Social History Tobacco Use [...] TH Visit (TeleHealth) Hematology [place] [address] Pelon Wisdom MD [facility] [place] [address] documented as of this encounter Visit Diagnoses Not on filedocumented in this encounter Care Teams Guard Museum Relationship Specialty Start Date End Date Rosy Tavarez, PLANT SAFETY LEADER [facility] [place] [address] PCP - General General Internal Medicine 02/14/1709/21 documented as of this encounter
--- OUTSIDE RECORDS SUMMARY | 2024-05-15 12:57 | XMS_ITS | Encounter Summary ---
[place] [address] Care Team Providers Care Service Desk Team Lead Name Role Phone Rosy Tavarez GO Primary Care Provider Reason for Visit * Reason Onset Date Comments Prior Authorization 04/08/2017 Welchol 625 mg tablet Encounter Details Date Type Department Care Team (Late st Contact Info) Description 04/08/2017 Telephone Internal Medicine at [facility] [address] [place] [address] Eunice Husain MA Prior Authorization (Welchol 625 [...] Authorization for Primary [place] [address] Denied: X Case/Reference #: Additional Information from Insurance carrier: Unable to approve Welchol 625 mg tablets Formulary Alternatives: Please use formulary alternative(s) : ?? Questran ?? Colestid Note: * Telephone Encounter - Eunice Husain - 04/08/2017 9:09 AM EST Medication Prior Authorization for Primary [place] [address] Patient: Emma Min Patient : 1980 Subscriber Insurance: [place] [employer] Insurance Phone #: Sent via: [employer] Estrada: [id number] Physician: Rosy Tavarez APRN Return [...] TH Visit (TeleHealth) Hematology [place] [address] Pelon Wisdom MD [facility] DR HEMATOLOGY [place] [address] documented as of this encounter Visit Diagnoses Diagnosis Hypertriglyceridemia Pure hyperglyceridemia documented in this encounter Care Teams Service Desk Team Lead Relationship Specialty Start Date End Date Rosy Tavarez APRN [facility] [place] [address] PCP - General General Internal Medicine 02/14/17 6/2 05/11 documented as of this encounter
--- OUTSIDE RECORDS SUMMARY | 2024-05-15 12:57 | XMS_ITS | Encounter Summary ---
Author [facility] [place] [address] Care Team Providers Care Public Health Name Role Phone Rosy Tavarez GO Primary Care Provider [phone] Encounter Details Date Type Department Care Team (Late st Contact Info) Description 04/09/2017 Telephone Psychiatry [place] [phone] Olga Daniels MD Social History Tobacco Use [...] TH Visit (TeleHealth) [place]ology [place] [address] [facility] [place] [address] documented as of this encounter Visit Diagnoses Not on filedocumented in this encounter Care Teams Public Health Relationship Specialty Start Date End Date Rosy Tavarez, GO [facility] [place] [address] PCP - General General Internal Medicine 02/14/17 6/2 05/11 documented as of this encounter
--- OUTSIDE RECORDS SUMMARY | 2024-05-15 12:57 | XMS_ITS | Encounter Summary ---
Author [place] [address] Care Team Providers Care Glove Parts Inspector Name Role Phone Rosy Tavarez GO Primary Care Provider Reason for Visit * Reason Onset Date Comments Prior Authorization 03/28/2017 Encounter Details Date Type Department Care Team (Late st Contact Info) Description 03/28/2017 Telephone [place] [phone] Pastora Layton Prior Authorization Social History Tobacco [...] TH Visit (TeleHealth) Hematology [place] [address] Pelon Wisdom MD [facility] [place] [address] documented as of this encounter Visit Diagnoses Not on filedocumented in this encounter Care Teams Glove Parts Inspector Relationship Specialty Start Date End Date Rosy Tavarez APRN [facility] [place] [address] PCP - General General Internal Medicine 02/14/17 6/2 05/11 documented as of this encounter
--- OUTSIDE RECORDS SUMMARY | 2024-05-15 12:57 | XMS_ITS | Encounter Summary ---
Author Organization [facility] [place] [address] Care Team Providers Care Rough Rice Grader Name Role Phone Rosy Tavarez APRN Primary Care Provider Encounter Details Date Type Department Care Team (Late Contact Info) Description 04/05/2017 Telephone [place] [address] Camila Tompkins, [place]LA[place] Social History Tobacco Use Types Packs/Day Years [...] 04/05/2017 2:36 PM EST Patient called because [facility] told her that she needs a PA done Immediately for all of her diabetic meds and supplies. Called back patient for more details. She is actually looking for Victoza refill today. She has 2 Victoza doses left. documented in this encounter Plan of Treatment Upcoming Encounters Date Type Department Care Team ([facility] Contact Info) Description 05/13/2025 4:00 PM EST TH Visit (TeleHealth) [place]ematology [place] [address] Pelon Wisdom MD [facility] HEMATOLOGY [place] [address] documented as of this encounter Visit Diagnoses Not on filedocumented in this encounter Care Teams Rough Rice Grader Relationship Specialty Start Date End Date Rosy Tavarez APRN [facility] GENER[facility] [place] [address] PCP - General General Internal Medicine 02/14/1709/21 documented as of this encounter
--- OUTSIDE RECORDS SUMMARY | 2024-05-15 12:57 | XMS_ITS | Encounter Summary ---
[place] [address] Care Team Providers Care Windows Infrastructure Engineer Name Role Phone Rosy Tavarez APRN Primary Care Provider Reason for Referral * Physical Therapy (Routine) - Specialty Diagnoses / Procedures Referred By Contac t Referred To Contact Physical Therapy Diagnoses Chest wall pain Rosy Tavarez APRN [facility] [address] [place] [address] Referral ID Status Reason Start Date Expiration Date V isits Requested Visits Authorized [id number] Evaluate and Treat 08/30/2017 02/26/2018 10 10 * Consultation (Urgent) - Specialty Diagnoses / Procedures Referred By Contac t Referred To Contact Neurology Diagnoses Intractable chronic migraine without aura and with status migrainosus Rosy Tavarez APRN [facility] [address] [place] [address] [facility] [address] [place] [phone] Referral ID Status Reason Start Date Expiration Date Visits Requested Visits Authorized [id number] Specialty Service Requested 08/30/2017 08/30/2018 1 1 Reason for Visit * Reason Comments Follow-up migraine 2 days ago, vomiting, loss of vision and felt like she was going to pass out, threw up for over an hour, camron Encounter Details Date Type Department Care Team (Late st Contact Info) Description 08/30/2017 10:00 AM EDT Office Visit Internal Medicine [place] [facility] [place] [address] Rosy Tavarez, GO [facility] [place] [address] Intractable chronic migraine without aura and with [...] more? Visit our health information library at [email or web address]. You can also view health information on Study Edge, your personal patient account. Log in or sign uptoday. Enter M639 in the search box to learn more about Seizure: Care Instructions. Current as of: February 03, 2016 Content Version: 11.4 ?? [id number] RollUp Media. Care instructions adapted under license by [facility]. If you have questions about a medical condition or this instruction, always ask your healthcare professional. [employer] disclaims any warranty or liability for your [...] two co- workers. They took her to [facility] for full evaluation. Her sugar was not low(195), CT of head was negative, given IVF and Zofran and discharged. Today she feels more like herself and no further HATCH. See scanned document from [facility]. 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 Continued chest wall pain - had gotten [...] TH Visit (TeleHealth) Hematology [place] [address] Pelon Wisdom MD [facility] DR HEMATOLOGY [place] [address] Scheduled Referrals Name Type Priority Associated Diagnoses [...] 10:38 AM EDT) Neutrophil % 60.1 % [facility] Neutrophil Absolute 4.29 1.70 - 6.10 x10(3)/[facility] Lymph % 29.0 % [facility] Lymphocytes Abs 2.1 0.9 - 3.2 x10(3)/[facility] Monocyte % 7.0 % [facility] Monocyte Abs 0.5 0.3 - 0.9 x10(3)/[facility] Eos % 3.2 % [facility] Eosinophils Abs 0.2 0.0 - 0.4 x10(3)/[facility] Basophil % 0.6 % [facility] Baso Absolute 0.0 0.0 - 0.1 x10(3)/[facility] Immature Gran % 0.10 % [facility] Comment: Immature granulocytes(IG's)percentage and absolute count will include metamyelocytes, myelocytes, and promyelocytes. Blood smears from CBCs yielding IG's will be scanned manually for concordance. If this scan disagrees with the automated IG or if promyelocytes are noted, a manual differential will be performed. Immature Gran Absolute 0.01 0.00 - 0.04 x10(3)/[facility] Blood specimen (specimen) 08/30/2017 10:38 AM EDT 08/30/2017 10:45 AM EDT Narrative Resulting Agency Comment Spec In Lab Rosy Tavarez [facility] HEMATOLOGY ORDERABLE S [facility] [place] [address] * (ABNORMAL) Hemogram (08/30/2017 10:38 AM EDT) White Blood Cell 7.1 4.0 - 9.5 x10(3)/[facility] Red Blood Cell 3.88(L) 4.00 - 5.21 x10(6)/mc L [facility] Hemoglobin 13.5 11.7 - 15.5 gm/dL [facility] Hematocrit 37.8 35.7 - 45.8 % [facility] Mean Cell Volume 97.4(H) 82.6 - 94.4 fL [facility] Mean Cell Hemoglobin 34.8(H) 27.1 - 32.0 pg [facility] Mean Cell Hemoglobin Concentration 35.7(H) 31.7 - 35.0 gm/dL [facility] Platelet 242 145 - 357 x10(3)/[facility] RDW Standard Deviation 41.1 37.0 - 46.0 [facility] RDW coefficient of variation 11.6 11.5 - 14.1 % [facility] Mean Platelet Volume 11.4 7.6 - 12.9 fL [facility] NRBC% auto 0.0 % [facility] NRBC Absolute 0.000 0.000 - 0.000 x10(3)/ L [facility] Blood specimen (specimen) 08/30/2017 10:38 AM EDT 08/30/2017 10:45 AM EDT Narrative Resulting Agency Comment Spec In Lab Rosy Tavarez GO HEMATOLOGY ORDERABLE S Performing Organization Address [facility]/ZIP Co de Phone Number [facility] [place] [address] * (ABNORMAL) Vitamin D, 25-Hydroxy (08/30/2017 10:38 AM EDT) Vitamin D Total 25 OH 7(L) 30 - 100 ng/mL [facility] Comment: Deficient <10 ng/mL Insufficient 10 to 29 ng/mL Sufficient 30 to 100 ng/mL Potential Intoxication >100 ng/mL According to the US National Osteoporosis Foundation, Vitamin D concentrations >30 ng/mL are sufficient to protect bone health. ??The National Kidney Foundation has similarly stated that patients with Vitamin D concentrations <30ng/mL should be considered to be insufficient or deficient. http://Hi-Lo Lodge/nkf-guidelines http://Hi-Lo Lodge/nejm-VitD The IDS iSYS Vitamin D Immunoassay detects both 25-OH Vitamin D2 and 25-OH Vitamin D3, but only a total Vitamin D concentration is reported. Blood specimen (specimen) 08/30/2017 10:38 AM EDT 08/30/2017 1:36 PM EDT Narrative Resulting Agency Comment Spec In Lab Rosy Tavarez GO CHEMISTRY ORDERABLES Performing Organization Address [facility] Co de Phone Number [facility] [place] [address] * (ABNORMAL) Hemoglobin A1c (08/30/2017 10:38 AM EDT) Hemoglobin A1c 8.2(H) 4.3 - 5.6 % [facility] Comment: Reference Range: 4.3 - [...] 36: Suppl. 1, S67-74 Estimated Average Glucose 189 mg/dL [facility] Comment: eAG equivalents for HbA1c [...] into estimated average glucose values. ??Diabetes Care 2008:31(8):6740-2412. 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
--- OUTSIDE RECORDS SUMMARY | 2024-05-15 12:57 | XMS_ITS | Encounter Summary ---
Author Organization [facility] Address [facility] [place] [address] Care Team Providers Care Roof Tiler Name Role Phone Rosy Tavarez APRN Primary Care Provider [phone] Encounter Details Date Type Department Care Team (Latest Contact Info) Description 03/12/2017 9:27 AM EST - 03/12/2017 11:59 PM EST Hospital Encounter XRay at [address] [place] [address] Rosy Tavarez, CHAIN MORTISER OPERATOR [facility] [place] [address] Pain, chest wall Discharge Disposition: Home Social [...] 11/15/2016 04/29/2017 meclizine (ANTIVERT) 25 mg TabletIndications:Jered pierce Take 1 tablet by mouth 3 times [...] TH Visit (TeleHealth) Hematology [place] [address] Pelon Wisdom MD [facility] DR HEMATOLOGY [place] [address] documented as of this encounter Procedures Procedure [...] respiration documented in this encounter Care Teams Roof Tiler Relationship Specialty Start Date End Date Rosy Tavarez APRN [facility] [place] [address] PCP - General General Internal Medicine 02/14/1709/21 documented as of this encounter
--- OUTSIDE RECORDS SUMMARY | 2024-05-15 12:57 | XMS_ITS | Encounter Summary ---
Author Organization [facility] [place] [address] Care Team Providers Care Seam Presser Name Role Phone Rosy Tavarez GO Primary Care Provider Encounter Details Date Type Department Care Team (Late Contact Info) Description 03/21/2017 Telephone [place] [address] Ольга Carter LPN Social History [...] Trulicity is non formulary was received. Call [phone] if not received documented in this encounter Plan of Treatment Upcoming Encounters Date Type Department Care Team (Late st Contact Info) Description 05/13/2025 4:00 PM EST TH Visit (TeleHealth) H[place] [address] Pelon Wisdom MD [facility] DR HEMATOLOGY [place] [address] documented as of this encounter Visit Diagnoses Not on filedocumented in this encounter Care Teams Seam Presser Relationship Specialty Start Date End Date Rosy Tavarez, PAPER FOLDER [facility] [place] [address] PCP - General General Internal Medicine 02/14/1709/21 documented as of this encounter
--- OUTSIDE RECORDS SUMMARY | 2024-05-15 12:57 | XMS_ITS | Encounter Summary ---
Author Organization [facility] [place] [address] Care Team Providers Care Service Planner Name Role Phone Rosy Tavarez APRN Primary Care Provider Encounter Details Date Type Department Care Team (Late Contact Info) Description 04/29/2017 Telephone [place] [phone] Camila Tompkins, RN Social History Tobacco Use [...] TH Visit (TeleHealth) Hematology [place] [address] Pelon Wisdom MD [facility] DR [place] [address] documented as of this encounter Visit Diagnoses Not on filedocumented in this encounter Care Teams Service Planner Relationship Specialty Start Date End Date Rosy Tavarez, GO [facility] [place] [address] PCP - General General Internal Medicine 02/14/1709/21 documented as of this encounter
--- OUTSIDE RECORDS SUMMARY | 2024-05-15 12:57 | XMS_ITS | Encounter Summary ---
Author Organization [facility] [place] [address] Care Team Providers Care Veneer Sawyer Name Role Phone Rosy Tavarez GO Primary Care Provider Encounter Details Date Type Department Care Team (Late st Contact Info) Description 04/23/2017 Telephone Endocrinology at [facility] [place] [address] Crys Coe, RN Social History Tobacco Use [...] for Victoza. Diddiscuss that the Pharmacy at [facility] in [place] was telling Emma that her insurance would [...] TH Visit (TeleHealth) [place] [address] Pelon Wisdom MD [facility] [place] [address] documented as of this encounter Visit Diagnoses Not on filedocumented in this encounter Care Teams Veneer Sawyer Relationship Specialty Start Date End Date Rosy Tavarez, LAWN SERVICE SUPERVISOR [facility] [place] [address] PCP - General General Internal Medicine 02/14/1709/21 documented as of this encounter
--- OUTSIDE RECORDS SUMMARY | 2024-05-15 12:57 | XMS_ITS | Encounter Summary ---
Author Organization [facility] [place] [address] Care Team Providers Care Emergency Medicine Medical Director Name Role Phone Rosy Tavarez GO Primary Care Provider Reason for Visit * Reason Onset Date Comments Prior Authorization 05/08/2017 Encounter Details Date Type Department Care Team ([facility] st Contact Info) Description 05/08/2017 Telephone [place] [address] Jackie Monahan Prior Authorization Social History Tobacco [...] for request: TYPE II DM Health plan: [place] [employer] [place] Authorizing assistance representative name: EBEN Faxed to health plan on: 05/08/17 Health plan decision: MEDICATION DOES NOT REQUIRE PRIOR AUTHORIZATION. IT IS LISTED IN THE PLAN FORMULARY. THERE WAS A PAID CLAIM FOR THIS MEDICATION ON 05/08/17 Quantity approved: Authorization number: [id number] Start date: End date: documented in this encounter Plan of Treatment Upcoming Encounters Date Type Department Care Team (Late st Contact Info) Description 05/13/2025 4:00 PM EST TH Visit (TeleHealth) [place] [address] Pelon Wisdom MD [facility] [place] [address] documented as of this encounter Visit Diagnoses Not on filedocumented in this encounter Care Teams Emergency Medicine Medical Director Relationship Specialty Start Date End Date Rosy Tavarez, ASSOCIATE STORE LEADER [facility] [place] [address] PCP - General General Internal Medicine 02/14/17 6/2 05/11 documented as of this encounter
--- OUTSIDE RECORDS SUMMARY | 2024-05-15 12:57 | XMS_ITS | Encounter Summary ---
Author Organization [facility] [place] [address] Care Team Providers Care Cardiovascular Or Nurse Name Role Phone Rosy Tavarez GO Primary Care Provider Reason for Visit * Reason Comments Headache Altered Mental Status Numbness * Auth/Cert Specialty Diagnoses / Procedures Referred By Contac t Referred To Contact Diagnoses Seizure-like activity Nonintractable headache, unspecified chronicity pattern, unspecified headache type Procedures EMERGENCY OBSVO Referral ID Status Reason Start Date Expiration Date Visits Re quested Visits Authorized [id number] 1 1 Encounter Details Date Type Department Care Team (Late st Contact Info) Description 08/31/2017 4:23 PM EDT - 09/01/2017 2:50 PM EDT Emergency [address] [place] [id number] Stephen Wang MD [facility] [place] [address] Billy Oneal MD Nonintractable headache, unspecified chronicity pattern, unspecified headache [...] Emma Min Patient Age: 37 y.o. Language: Vietnamese Race: White Ethnicity: Not nor Admit Date: [...] author(s) of this discharge summary through the [facility] Set O Type Operator . Discharge Diagnoses (Hospital Problems) and Secondary [...] went limp. She notes that she believe thatShe went to the [place] ED for seizures that were negative at [...] L Elbow flexion 5/5 R, 5/5 L Patch Finisher LE: 5/5 R, 5/5 L Hip flexion [...] negative. Upon further discussion she sees a [facility] neurologist, Dr. Costa, and has been managed [...] (Bezet) 460 ms Preliminary ?? Calculated P Aston 48 degrees Preliminary ?? Calculated R Aston 46 degrees Preliminary ?? Calculated T Aston 13 degrees Preliminary ?? INTERPRETATION Preliminary ?? [...] 04/24/ Labs 04/24/17 1548 LDLDIRECT 187 Labs Labs 08/30/17 1038 04/24/17 1548 HA1C 8.2* 8.8* ab Data: none Vital Signs at Discharge: BP: 109/59, Heart RaBP: 109/59mpHeart Rate: 76??FTemp: 36.6 ??C (97.9 ??F)cuResp: 22.8BMI (Calculated): 28.834Height: 162.6 cm (5' 4) (09/01/17 0254)lWeight: 76.2 kg (168 lb) (09/01/17253)ve Status: Baseline [...] L ?Elbow flexion ?5/5 R, 5/5 L ?Patch Finisher ?LE: ?5/5 R, 5/5 L ?Hip flexion [...] tablet Refills: 1 blood sugar [facility] strips [facility] 4 times daily. Salas Metrix self monitoring Blood Glucose strips E11.9 Quantity: 400 each Refills: 3 Blood-Glucose Meter [facility] Please dispense Salas Metrix meter. E11.9 Quantity: [...] were admitted to the neurology service at [facility]. Your diagnosis: Migraine Your Medications New Medications [...] in the neurology clinic at [facility]. If not already listed in this document, we will contact you to schedule this appointment. -- If 1 week passes by after you are discharged and you still do not have an appointment, please call [phone]. Future Appointments and Orders Future Appointments Provider Department Dept Phone 09/10/2017 3:30 PM Isabel Hicks MD Endocrinology at [place] [address] 09/13/2017 11:00 AM Taye Lagos, PhD Psychiatry and Behavioral Health at [place] [address] 09/26/2017 12:00 PM HBTS, WINDOW DECORATOR Gastroenterology at [place] [address] 09/26/2017 4:00 PM Moriah Tobar APRN Gastroenterology at [place] [address] General Instructions None nd Orders Future Appointments Provider Department Dept Phone 09/10/2017 3:30 PM Isabel Hicks MD Endocrinology at [place] [address] 09/13/2017 11:00 AM Taye Lagos, PhD Psychiatry and Behavioral Health at [place] [address] 09/26/2017 12:00 PM HBTS, WINDOW DECORATOR Gastroenterology at [place] [address] 09/26/2017 4:00 PM Moriah Tobar, GO Gastroenterology at [place] [address] Future Appointments Date Time Provider Department Center 09/10/2017 3:30 PM Isabel Hicks MD [facility] 09/13/2017 11:00 AM Taye Lagos, PhD [facility] Psych 5D Behavorial H 09/26/2017 12:00 PM HBTS, WINDOW DECORATOR [facility] Gastro [facility] 09/26/2017 4:00 PM Moriah Tobar APRN [facility] Primary Care Provider: Rosy Tavarez APRN [facility] INTER[facility] MEDICINE / [employer] N* [phone] Discharge References/Attachments None documented in this encounter Discharge Instructions * Discharge Instructions* Dawood Oliva - 08/31/2017 10:50 PM EDT * Patient Instructions* Kelsie Casas MD - 09/01/2017 9:47 AM EDT You were admitted to the neurology service at [facility]. Your diagnosis: Migraine Your Medications New Medications [...] Quantity: 400 each Refills: 3 Blood-Glucose Meter [facility] Please dispense Salas Metrix meter. E11.9 Quantity: [...] in the neurology clinic at [facility]. If not already listed in this document, we will contact you to schedule this appointment. -- If 1 week passes by after you are discharged and you still do not have an appointment, please call [phone]. Future Appointments and Orders Future Appointments Provider Department Dept Phone 09/10/2017 3:30 PM Isabel Hicks MD Endocrinology at [place] [phone] 09/13/2017 11:00 AM Taye Lagos, PhD Psychiatry and Behavioral Health at [place] [phone] 09/26/2017 12:00 PM HBTS, WINDOW DECORATOR Gastroenterology at [place] [phone] 09/26/2017 4:00 PM Moriah Tobar APRN Gastroenterology at [place] [phone] documented in this encounter Medications at Time [...] L Elbow flexion 5/5 R, 5/5 L Patch Finisher LE: 5/5 R, 5/5 L Hip flexion [...] Resident - PGY-2 General Neurology Team Pager #[phone] 09/01/17 who Barrie West MD Neurology Resident - PGY-2 General Neurology Team Pager #[phone] 09/01/17 * Sindy Heard RN - 09/01/2017 [...] that she believe Benoit went to the [place] ED for seizures that were negative at [...] cigarettes a day Alcohol: Limited use 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 Living situation: [place], [place] - lives with roommate and two children Review [...] L Elbow flexion 5/5 R, 5/5 L Patch Finisher LE: 5/5 R, 5/5 L Hip flexion [...] Resident - PGY-2 General Neurology Team Pager #[phone] 09/01/17 Associated attestation - Billy Oneal MD [...] Oneal MD Department of Neurology [facility] documented in this encounter Procedure Notes * Shaun Coleman MD - 08/31/2017 8:42 PM EDTAssociated Order(s): EEG AWAKE, ASLEEP, DROWSY [facility] Department of Neurology Inpatient EEG Report Name [...] Dawood Oliva MD 10 mg at 08/31/17 3731 Current Outpatient Prescriptions Medication Sig Dispense Refill [...] channel digitized electroencephalogram was performed in the [facility] Clinical Neurophysiology Laboratory. The 10/20 international system of electrode placement was used and bipolar and referential electrode montages were recorded. In addition to EEG the patient was monitored for EKGand lateral/vertical eye movements. Video was recorded during the session. The duration of the recording was 30 minutes. SWEATBAND PERFORATOR'S REPORT: Performed by: SB Patient was not [...] documented in this encounter ED Notes * Setphen Wang MD - 08/31/2017 5:50 PM EDT [...] of vomiting afterwards and was taken to [facility]. At that point in time she [...] has been feeling at her baseline until Saturday, August 28. The review of systems is negative other than items noted in the HPI. I reviewed the past medical history, medications, and allergies in Epic. On exam the patient was in no acute distress with no focal neurologic deficits. Her heart was regular rate, lungs clear, abdomen soft Records reviewed from [facility]. CT scan report was reviewed. Our labs reviewed. Given the symptomatology and progression, we consulted the neurology service for possible seizures. She received an EEG and was admitted as an observation status on the neurology team. MD Felipe Hanson Matthew A, MD 09/03/17 1525 * Dawood Oliva H - 08/31/2017 4:24 PM EDT Emma Min is an 37 y.o. female who presents to the ED with: Chief Complaint Patient presents with ??? Headache ??? Altered Mental Status ??? Numbness I saw this patient 08/31/2017 at ~ 4:24 PM HPI Emma Min is a 37 y.o. female [...] years, and has seen neurology here at [facility] in the past. She denies any current medication management or diagnosis related to this. She reports that she has had similar episodes in the past that she has associated with hypoglycemia. After these events on , she was seen in the emergency department in [place], and was discharged with a diagnosis of syncope. The patient was seen by her PCP here at [facility] on Saturday, and a referral was placed [...] of a concern. Head CT done in [place] did not show any acute findings, which [...] TH Visit (TeleHealth) [place] [phone] Pelon Wisdom MD [facility] [address] [place] [address] documented as of this encounter Procedures Procedure [...] Glucose, POC 175 65 - 199 mg/dL [facility] Comment: Supplemental ranges: <140 mg/dL before meals <180 mg/dL all other times of the day Blood specimen (specimen) 09/01/2017 1:00 PM EDT 09/01/2017 1:00 PM EDT Billy Oneal MD POINT OF CARE TEST O RDERABLES [facility] [place] [address] * MRI Brain wwo Contrast (Generic) (09/01/2017 [...] or masseffect. 2:45 PM Billy Oneal MD IMG MRI ORDERABLES * EEG awake, asleep, drowsy, routine (09/01/2017 9:36 AM EDT) Narrative Shaun Coleman MD - 09/01/2017 9:36 AM EDT Shaun Coleman MD ? 09/01/2017 ??9:36 AM [facility] Department of Neurology Inpatient EEG Report Name [...] Oliva MD ?? 10 mg at 08/31/17 6376 Current Outpatient Prescriptions Medication Sig Dispense Refill [...] channel digitized electroencephalogram was performed in the [facility] Clinical Neurophysiology Laboratory. The 10/20 international system of electrode placement was used and bipolar and referential electrode montages were recorded. ??In addition to EEG the patient was monitored for EKG and lateral/vertical eye movements. Video was recorded during the session. The duration of the recording was 30 minutes. SWEATBAND PERFORATOR'S REPORT: Performed by: SB Patient was not [...] (Bezet) 460 ms MUSE SYSTEM Calculated P Aston 48 degrees MUSE SYSTEM Calculated R Aston 46 degrees MUSE SYSTEM Calculated T Aston 13 degrees MUSE SYSTEM INTERPRETATION Normal sinus [...] 3:27 AM EDT) Neutrophil % 40.5 % [facility] Neutrophil Absolute 2.62 1.70 - 6.10 x10(3)/[facility] LABORATORY Lymph % 46.0 % [facility] Lymphocytes Abs 3.0 0.9 - 3.2 x10(3)/[facility] LABORATORY Monocyte % 7.3 % [facility] Monocyte Abs 0.5 0.3 - 0.9 x10(3)/[facility] LABORATORY Eos % 5.3 % [facility] Eosinophils Abs 0.3 0.0 - 0.4 x10(3)/[facility] LABORATORY Basophil % 0.6 % [facility] Baso Absolute 0.0 0.0 - 0.1 x10(3)/[facility]ORATORY Immature Gran % 0.30 % [facility] Comment: Immature granulocytes(IG's)percentage and absolute count will include metamyelocytes, myelocytes, and promyelocytes. Blood smears from CBCs yielding IG's will be scanned manually for concordance. If this scan disagrees with the automated IG or if promyelocytes are noted, a manual differential will be performed. Immature Gran Absolute 0.02 0.00 - 0.04 x10(3)/[facility] LABORATORY Blood specimen (specimen) 09/01/2017 3:27 AM EDT 09/01/2017 3:35 AM EDT Narrative Resulting Agency Comment Spec In Lab Barrie West MD HEMATOLOGY ORDE DAISY [facility] [place] [address] * (ABNORMAL) Hemogram (09/01/2017 3:27 AM EDT) White Blood Cell 6.5 4.0 - 9.5 x10(3)/[facility] LABORATORY Red Blood Cell 3.51(L) 4.00 - 5.21 x10(6)/[facility] LABORATORY Hemoglobin 12.1 11.7 - 15.5 gm/dL [facility] Hematocrit 34.2(L) 35.7 - 45.8 % [facility] Mean Cell Volume 97.4(H) 82.6 - 94.4 fL [facility] Mean Cell Hemoglobin 34.5(H) 27.1 - 32.0 pg [facility] Mean Cell Hemoglobin Concentration 35.4(H) 31.7 - 35.0 gm/dL [facility] Platelet 201 145 - 357 x10(3)/[facility] LABORATORY RDW Standard Deviation 41.5 37.0 - 46.0 [facility]ATORY RDW coefficient of variation 11.7 11.5 - 14.1 % [facility] Mean Platelet Volume 11.2 7.6 - 12.9 [facility] LABORATORY NRBC% auto 0.0 % [facility] NRBC Absolute 0.000 0.000 - 0.000 x10(3)/[facility] Blood specimen (specimen) 09/01/2017 3:27 AM EDT 09/01/2017 3:35 AM EDT Narrative Resulting Agency Comment Spec In Lab Barrie West MD HEMATOLOGY [place] [facility] [place] [address] * APTT (09/01/2017 3:27 AM EDT) Partial Thromboplastin Time 30 25 - 37 sec [facility] Comment: The PTT is NOT appropriate for heparin monitoring. Use the Anti-Xa level for heparin monitoring (HEP UFH) or LMWH monitoring (HEP LMW). A PTT less than 37 seconds generally indicates adequate hemostasis. Blood specimen (specimen) 09/01/2017 3:27 AM EDT 09/01/2017 3:35 AM EDT Narrative Resulting Agency Comment Spec In Lab Stephen Wang MD HEMATOLOGY ORDERAB LES Performing Organization Address [facility] de Phone Number [facility] [place] [address] * Prothrombin Time (09/01/2017 3:27 AM EDT) Prothrombin Time 11.3 9.4 - 12.5 sec [facility] International Normalization Ratio 1.0 [facility] Comment: An INR <2.0 indicates adequate [...] HEMATOLOGY ORDERAB LES Performing Organization Address [facility] de Phone Number [facility] [place] [address] * (ABNORMAL) Hepatic Function Panel (09/01/2017 3:27 AM EDT) Protein, Total 5.9(L) 6.1 - 8.0 gm/dL [facility] Albumin 3.6 3.2 - 5.2 gm/dL [facility] Aspartate Aminotransferase 12 0 - 30 unit/L [facility] Alanine Aminotransferase 8 0 - 30 unit/L [facility] Alkaline Phosphatase 59 40 - 104 unit/L [facility] Bilirubin, Total 0.4 0.2 - 1.3 mg/dL [facility] Bilirubin, Direct 0.1 0.0 - 0.3 mg/dL [facility] Blood specimen (specimen) 09/01/2017 3:27 AM EDT 09/01/2017 3:35 AM EDT Narrative Resulting Agency Comment Spec In Lab Stephen Wang MD CHEMISTRY ORDERABL ES Performing Organization Address [facility] Co de Phone Number [facility] [place] [address] * Magnesium (09/01/2017 3:27 AM EDT) Magnesium 0.72 0.69 - 1.07 mmol/L [facility] Blood specimen (specimen) 09/01/2017 3:27 AM EDT 09/01/2017 3:35 AM EDT Narrative Resulting Agency Comment Spec In Lab Stephen Wang MD CHEMISTRY ORDERABL ES Performing Organization Address [facility] de Phone Number [facility] [place] [address] * Calcium (09/01/2017 3:27 AM EDT) Calcium 8.7 8.5 - 10.5 mg/dL [facility] Blood specimen (specimen) 09/01/2017 3:27 AM EDT 09/01/2017 3:35 AM EDT Narrative Resulting Agency Comment Spec In Lab Stephen Wang MD CHEMISTRY ORDERABL ES Performing Organization Address [facility] Co de Phone Number [facility] [place] [address] * (ABNORMAL) Basic Metabolic Panel (non-fasting) (09/01/2017 3:27 AM EDT) Glucose 186 65 - 199 mg/dL [facility] Comment:Diabetes: >=200 mg/d L plus symptoms Blood Urea Nitrogen 7(L) 8 - 18 mg/dL [facility] Creatinine 0.79 0.70 - 1.20 mg/dL [facility] Sodium 139 135 - 145 mmol/L [facility] Potassium 3.2(L) 3.5 - 5.0 mmol/L [facility] Comment: Please note: ??Patients with WBC >100,000 may have falsely elevated Potassium levels. ??For accurate Potassium quantification in these patients send serum separator tube (gold top) for subsequent determinations. ??Contact the Clinical Chemistry Laboratory if there are any questions. Chloride 101 98 - 107 mmol/L [facility] Carbon Dioxide 26 22 - 31 mmol/L [facility] Anion Gap 12 5 - 15 mmol/L [facility] Calcium 8.7 8.5 - 10.5 mg/dL [facility] Est Glomerular Filtration Rate >60 >=60 [facility] Comment: The reported eGFR should be multiplied by 1.2 for patients. The MDRD is not an appropriate measure of renal function for patients with body mass extremes or in patients with acute kidney failure. http://[employer].CareShare/DHnkdep http://[employer]/DHMCnkf Blood specimen (specimen) 09/01/2017 3:27 AM EDT 09/01/2017 3:35 AM EDT Narrative Resulting Agency Comment Spec In Lab Stephen Wang MD CHEMISTRY ORDERABL ES [facility] [place] [address] * EKG 12 Lead (08/31/2017 5:33 PM EDT) Ventricular rate 51 BPM MUSE SYSTEM Atrial Rate 51 BPM MUSE SYSTEM P-R Interval 134 ms MUSE SYSTEM QRS Duration 94 ms MUSE SYSTEM Q-T Interval 440 ms MUSE SYSTEM QTC Calculated (Bezet) 405 ms MUSE SYSTEM Calculated P Aston 35 degrees MUSE SYSTEM Calculated R Aston 45 degrees MUSE SYSTEM Calculated T Aston 20 degrees MUSE SYSTEM INTERPRETATION Sinus bradycardia Otherwise normal ECG No previous ECGs available Confirmed by MD Szymanski Rajbir S ([id number]) on 09/01/2017 10:18:21 AM MUSE SYSTEM [...] dose on 09/02/17 at 0600, Until Discontinued Given 09/01/2017 1:06 [...] 1 dose, On 08/31/17 at 1649, STAT 1648 (Given - Provider: Param Eason) docusate sodium [...] 09 (Given - Provid er: Bety Cui RN)1404 (Given - Provider: Madelin Reaves RN) ibuprofen (ADVIL;MOTRIN) tablet 600 mg (COMPLETED) 600 mg, Oral, ONCE, 1 dose, On 08/31/17 at 1649, Administer orally with milk or food to minimize GI irritation , STAT 1648 (Given - Provider: Param Eason) insulin lispro [...] Until Discontinued, DO NOT CRUSH OR OPEN 0904 (Given - Provid er: Bety Cui [...] on 09/01/17 at 0243, Until 09/01/17 at 165, Pain, Routine 1130 (Given - Provid er: [...] Intravenous, EVERY 1 MIN PRN, Starting on Sat09/01/17 at 0243, Until Sat09/01/17 at 165, flush, Flush pertains to all indwelling lines. Flush per protocol found in the job aid using the link provided on this medication record., Routine Linked Groups Order Group 1: POCT Fingerstick Glucose (CANCELED) Routine, EVERY 4 HOURS, First occurrence on Sat09/01/17 at 1200, Until Specified, Consider choosing EVERY [...] EVERY 4 HOURS SCHEDULED, First dose on Sat09/01/17 at 1200, Until Discontinued, CORRECTION BOLUS Sensitive [...] Intravenous, EVERY 1 HOUR PRN, Starting on Sat09/01/17 at 0944, Until Sat09/01/17 at 165, Low blood sugar, For BG 50-70: 120 [...] Routine documented in this encounter Care Teams Cardiovascular Or Nurse Relationship Specialty Start Date End Date Rosy Tavarez, SOUND DESIGNER [facility] [place] [address] PCP - General General Internal Medicine 02/14/1709/21 documented as of this encounter
--- OUTSIDE RECORDS SUMMARY | 2024-05-15 12:57 | XMS_ITS | Encounter Summary ---
Author Organization [facility] [place] [address] Care Team Providers Care Staying Machine Operator Name Role Phone Rosy Tavarez GO Primary Care Provider [phone] Reason for Visit * Reason Onset Date Comments Medication Problem 04/05/2017 Encounter Details Date Type Department Care Team ([facility] st Contact Info) Description 04/05/2017 Telephone [place] [phone] Jenn Escalante Medication Problem Social History Tobacco [...] - 04/05/2017 12:06 PM EST Spoke with [facility] at [phone]. Pt had Rx for Welchol filled in Nov 2016 and it went through her insurance at that time [place] Medicaid. Pt has moved and now has [place] [employer] insurance. Per pharmacy, they will [...] TH Visit (TeleHealth) Hematology [place] [address] Pelon Wisdom MD [facility] HEMATOLOGY [place] [address] documented as of this encounter Visit Diagnoses Not on filedocumented in this encounter Care Teams Staying Machine Operator Relationship Specialty Start Date End Date Rosy Tavarez APRN [facility] GENER[facility] [place] [address] PCP - General General Internal Medicine 02/14/17 6/2 05/11 documented as of this encounter
--- OUTSIDE RECORDS SUMMARY | 2024-05-15 12:57 | XMS_ITS | Encounter Summary ---
Author Organization [facility] [place] [address] Care Team Providers Care Youth Ministry Director Name Role Phone Rosy Tavarez GO Primary Care Provider [phone] Reason for Visit * Reason Onset Date Comments Prior Authorization 03/28/2017 Encounter Details Date Type Department Care Team ([facility] st Contact Info) Description 03/28/2017 Telephone [place] [phone] Jackie Monahan Prior Authorization Social History Tobacco [...] 04/26/2017 9:01 AM EST SENT A1C TO [facility] * Telephone Encounter - Jackie Monahan - 03/28/2017 10:03 AM EST Medication Prior Authorization JEANETTE ?? Medication name/dose/directions: VICTOZA 18MG/3ML - INJ 0.6 DAILY ?? Rationale for request: TYPE II DM ?? Health plan: [employer] ([employer]) ?? Authorizing underwriting sales representative name: EBEN ?? Faxed to health plan on: 03/28/17 ?? Health plan decision: APPROVED ?? Quantity approved: ?? Authorization number: [id number] ?? Start date:04/26/17 End date: 04/26/18 documented in this encounter Plan of Treatment Upcoming Encounters Date Type Department Care Team (Late st Contact Info) Description 05/13/2025 4:00 PM EST TH Visit (TeleHealth) Hematology [place] [address] Pelon Wisdom MD [facility] HEMATOLOGY [place] [address] documented as of this encounter Visit Diagnoses Not on filedocumented in this encounter Care Teams Youth Ministry Director Relationship Specialty Start Date End Date Rosy Tavarez APRN [facility] [place] [address] PCP - General General Internal Medicine 02/14/17 6/2 05/11 documented as of this encounter
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
--- OUTSIDE RECORDS SUMMARY | 2024-05-15 12:57 | XMS_ITS | Encounter Summary ---
Author Organization [facility] [place] [address] Care Team Providers Care Dairy Equipment Repairer Name Role Phone Rosy Tavarez ALARM TECHNICIAN Primary Care Provider Reason for Visit * Reason Onset Date Comments Medication Refill 04/29/2017 Encounter Details Date Type Department Care Team (Late st Contact Info) Description 04/29/2017 Refill [place] [phone] Isabel Hicks MD Diabetes mellitus without complication Social History Tobacco [...] TH Visit (TeleHealth) Hematology [place] [address] Pelon Wisdom MD [facility] DR HEMATOLOGY [place] [address] documented as of this encounter Visit Diagnoses Diagnosis Diabetes mellitus without complication Type II or unspecified type diabetes mellitus without mention of complication, not stated as uncontrolled documented in this encounter Care Teams Dairy Equipment Repairer Relationship Specialty Start Date End Date Rosy Tavarez, ALARM TECHNICIAN [facility] GENERAL [place] [address] PCP - General General Internal Medicine 02/14/1709/21 documented as of this encounter
--- OUTSIDE RECORDS SUMMARY | 2024-05-15 12:57 | XMS_ITS | Encounter Summary ---
Author Organization [facility] [place] [address] Care Team Providers Care Habitat Biologist Name Role Phone Leeanna Cohn MD Primary Care Provider [phone] Encounter Details Date Type Department Care Team (Late Contact Info) Description 02/07/2017 [facility] [address] [place] [address] Ceci Lang, PIGMENT PUSHER [address] [place] [address] Social History Tobacco Use Types Packs/Day Years [...] TH Visit (TeleHealth) [place] [address] Pelon Wisdom MD [facility] [address] [place] [address] documented as of this encounter Procedures Procedure [...] IMPRESSION No acute osseous injury. Ceci Lang PIGMENT PUSHER IMG DX ORDERABLES documented in this encounter Visit Diagnoses Not on filedocumented in this encounter Care Teams Habitat Biologist Relationship Specialty Start Date End Date Leeanna Cohn MD [address] [place] [address] PCP - General 03/14/10 02/13/17 documented as of this encounter
--- OUTSIDE RECORDS SUMMARY | 2024-05-15 12:57 | XMS_ITS | Encounter Summary ---
Author Organization [facility] [place] [address] Care Team Providers Care Admitting Supervisor Name Role Phone Rosy Tavarez APRN Primary Care Provider [phone] Encounter Details Date Type Department Care Team (Late Contact Info) Description 04/18/2017 Telephone [place] [phone] Camila Tompkins, RN Social History Tobacco Use [...] TH Visit (TeleHealth) Hematology [place] [phone] Pelon Wisdom MD [facility] DR HEMATOLOGY [place] [address] documented as of this encounter Visit Diagnoses Not on filedocumented in this encounter Care Teams Admitting Supervisor Relationship Specialty Start Date End Date Rosy Tavarez, GO [facility] GENERAL [place] [address] PCP - General General Internal Medicine 02/14/1709/21 documented as of this encounter
--- OUTSIDE RECORDS SUMMARY | 2024-05-15 12:57 | XMS_ITS | Encounter Summary ---
[place] [address] Care Team Providers Care String Studies Director Name Role Phone Rosy Tavarez APRN Primary Care Provider Reason for Visit * Reason Onset Date Comments Prior Authorization 02/13/2017 Encounter Details Date Type Department Care Team (Late Contact Info) Description 02/13/2017 Telephone [place] [phone] Kimberley Amor CMA Prior Authorization Social History [...] Amor CMA - 02/13/2017 3:54 PM EDT [facility] ID: [id number] Medication xifaxan 550 mg TID for 14 days Tried: imodium, pepto, amitripyline *treatment failure* Decision: approved for 14 dsays. Tracking ID: [id number] documented in this encounter Plan of Treatment Upcoming Encounters Date Type Department Care Team (Late Contact Info) Description 05/13/2025 4:00 PM EST TH Visit (TeleHealth) Hematology [place] [address] Pelon iWsdom MD [facility] HEMATOLOGY [place] [address] documented as of this encounter Visit Diagnoses Not on filedocumented in this encounter Care Teams String Studies Director Relationship Specialty Start Date End Date Rosy Tavarez APRN [facility] [place] [address] PCP - General General Internal Medicine 02/14/1709/21 documented as of this encounter
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
--- OUTSIDE RECORDS SUMMARY | 2024-05-15 12:57 | XMS_ITS | Encounter Summary ---
Author Organization [facility] [place] [address] Care Team Providers Care Blend Plant Operator Name Role Phone Rosy Tavarez GO Primary Care Provider Reason for Referral * Psychiatric (Routine) - Specialty Diagnoses / Procedures Referred By Contac t Referred To Contact Psychiatry Diagnoses Post-traumatic stress disorder, chronic Tara Carlton, PhD [facility] [address] [facility] [address] Taye Lagos, PhD Referral ID Status Reason Start Date Expiration Date V isits Requested Visits Authorized [id number] Consult, Test & Treat 07/08/2017 07/08/2018 1 1 Encounter Details Date Type Department Care Team (Late st Contact Info) Description 07/08/2017 Orders Only Weight and Wellness at [facility] [address] [place] [address] Tara Carlton, PhD [facility] [address] [facility] [address] Post-traumatic stress disorder, chronic Social History Tobacco [...] TH Visit (TeleHealth) Hematology [place] [address] Pelon Wisdom MD [facility] HEMATOLOGY [place] [address] Scheduled Referrals Name Type Priority Associated Diagnoses Order Schedule Referral to Psychology Outpatient Referral Routine Post-traumatic stress disorder, chronic Ordered: 07/08/2017 documented as of this encounter Visit Diagnoses Diagnosis Post-traumatic stress disorder, chronic documented in this encounter Care Teams Blend Plant Operator Relationship Specialty Start Date End Date Rosy Tavarez, GO [facility] GENER[facility] [place] [address] PCP - General General Internal Medicine 02/14/1709/21 documented as of this encounter
--- OUTSIDE RECORDS SUMMARY | 2024-05-15 12:57 | XMS_ITS | Encounter Summary ---
Author Organization [facility] [place] [address] Care Team Providers Care Thickener Operator Name Role Phone Rosy Tavarez APRN Primary Care Provider Reason for Visit * Reason Onset Date Comments Medication Problem 04/18/2017 Encounter Details Date Type Department Care Team (Late st Contact Info) Description 04/18/2017 Refill [place] [address] Sharda James Social History Tobacco Use Types [...] [facility] [place] [place] Also advised that per Rosy Tavarez [...] or caller: Carlos Perrin-pt boyfriend Phone Number: [facility] [place] [place] work# [phone] Medication: colesevelam (WELCHOL) 625 mg Tablet [[id number]] DISCONTINUED Message: pt needs this medication. Please call Carlos back. [facility]ses [email or web address]. documented in this encounter Plan of Treatment Upcoming Encounters Date Type Department Care Team (Late st Contact Info) Description 05/13/2025 4:00 PM EST TH Visit (TeleHealth) Hematology [place] [address] Pelon Wisdom MD [facility] [place] [address] documented as of this encounter Visit Diagnoses Not on filedocumented in this encounter Care Teams Thickener Operator Relationship Specialty Start Date End Date Rosy Tavarez APRN [facility] [place] [address] PCP - General General Internal Medicine 02/14/1709/21 documented as of this encounter
--- OUTSIDE RECORDS SUMMARY | 2024-05-15 12:57 | XMS_ITS | Encounter Summary ---
Author Organization [facility] [place] [address] Care Team Providers Care Terrazzo Layer Helper Name Role Phone Rosy Tavarez GO Primary Care Provider Reason for Visit * Reason Comments Diabetic Eye Exam Encounter Details Date Type Department Care Team (Late st Contact Info) Description 02/22/2017 3:20 PM EDT Office [place] [address] Taylor Mtz, OD [facility] [place] [address] Non-proliferative diabetic retinopathy, both eyes; Myopia of [...] Final Rx Eyeglass Final Rx Sphere Cylinder [place] Right -0.50 +0.75 015 Left -0.75 +0.75 152 Expiration Date: 02/23/2019 documented in this encounter Plan of Treatment Upcoming Encounters Date Type Department Care Team (Late st Contact Info) Description 05/13/2025 4:00 PM EST TH Visit (TeleHealth) Hematology [place] [address] Pelon Wisdom MD [facility] HEMATOLOGY [place] [address] documented as of this encounter Visit Diagnoses Diagnosis Non-proliferative diabetic retinopathy, both eyes Type II or unspecified type diabetes mellitus with ophthalmic manifestations, not stated as uncontrolled Myopia of both eyes with astigmatism documented in this encounter Care Teams Terrazzo Layer Helper Relationship Specialty Start Date End Date Rosy Tavarez APRN [facility] GENERAL [place] [address] PCP - General General Internal Medicine 02/14/17 6/2 05/11 documented as of this encounter
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
--- OUTSIDE RECORDS SUMMARY | 2024-05-15 12:57 | XMS_ITS | Encounter Summary ---
Author Organization [facility] [place] [address] Care Team Providers Care Tape Making Machine Operator Name Role Phone Rosy Tavarez GO Primary Care Provider Encounter Details Date Type Department Care Team (Late st Contact Info) Description 03/19/2017 3:30 PM EST Office Visit Endocrinology [place] [address] Isabel Hicks MD Type 2 diabetes mellitus without complication, without [...] Last ophtho evaluation - January 2017 at [facility] with Dr. Mtz - mild nonproliferative DRJovanny 4) CV disease - LDL PAST MEDICAL HISTORY: Patient Active Problem List Diagnosis Date Noted ??? Depression 02/08/2017 ??? Anxiety 02/08/2017 ??? Gastroesophageal reflux disease without esophagitis 11/15/2016 ??? Uncontrolled diabetes mellitus type 2 without complications 11/15/2016 MEDICATIONS: Medications 03/19/17 1473 Medication Sig Taking? acetaminophen (TYLENOL) 500 mg Tablet Take 2 tablets by mouth every 6 hours as needed for Pain. omeprazole (PRILOSEC) 20 mg Capsule, Delayed Release(E.C.) Take 1 capsule by mouth daily. blood sugar diagnostic strips (CONTOUR NEXT STRIPS) Strip Use to check BG 4 times daily Blood-Glucose Meter [facility] Please dispense Salas Metrix meter. E11.9 blood [...] Office Visit from 03/19/2017 in Endocrinology at [place] Heart Rate 93 BP 138/82 ASSESSMENT: 37 [...] From checking her insurance's formulary, itappears that Elianaity is on formulary but would need a [...] patient on DM mgmt. ISABEL HICKS MD Roofer Vinyl Coatingtrain electronic technician Section of Endocrinology [facility] documented in this encounter Plan of Treatment Upcoming Encounters Date Type Department Care Team (Late st Contact Info) Description 05/13/2025 4:00 PM EST TH Visit (TeleHealth) Hematology [place] [address] Pelon Wisdom MD [facility] [place] [address] documented as of this encounter Results * LDL Cholesterol, Direct (04/24/2017 3:48 PM EST) LDL Cholesterol, Direct 187 <=190 mg/dL [facility] Blood specimen (specimen) 04/24/2017 3:48 PM EST 04/24/2017 3:54 PM EST Narrative Resulting Agency Comment Spec In Lab Isabel Hicks MD CHEMISTRY ORDERABLES [facility] [place] [address] * Creatinine (04/24/2017 3:48 PM EST) Creatinine 0.75 0.70 - 1.20 mg/dL [facility] Est Glomerular Filtration Rate >60 >=60 [facility] Comment: The reported eGFR should be multiplied by 1.2 for patients. The MDRD is not an appropriate measure of renal function for patients with body mass extremes or in patients with acute kidney failure. http://[employer]Netero/DHnkdep [email or web address]/[facility] Blood specimen (specimen) 04/24/2017 3:48 PM EST 04/24/2017 3:54 PM EST Narrative Resulting Agency Comment Spec In Lab Isabel Hicks MD CHEMISTRY ORDERABLES [facility] [place] [address] * (ABNORMAL) Hemoglobin A1c (04/24/2017 3:48 PM [...] 36: Suppl. 1, S67-74 Estimated Average Glucose 206 mg/dL [facility] [...] resources are available on the ADA website. Diana Vo J, Alex R, et al. ??Translating the A1C assay into estimated average glucose values. ??Diabetes Care 2008:31(8):8561-2149. Blood specimen (specimen) 04/24/2017 3:48 PM EST 04/24/2017 3:54 PM EST Narrative Resulting Agency Comment Spec In Lab Isabel Hicks MD CHEMISTRY ORDERABLES [facility] [place] [address] documented in this encounter Visit Diagnoses Diagnosis Type 2 diabetes mellitus without complication, without long-term current use of insulin documented in this encounter Care Teams Tape Making Machine Operator Relationship Specialty Start Date End Date Rosy Tavarez APRN [facility] [place] [address] PCP - General General Internal Medicine 02/14/17 6/2 05/11 documented as of this encounter
--- OUTSIDE RECORDS SUMMARY | 2024-05-15 12:57 | XMS_ITS | Encounter Summary ---
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 Encounter Details Date Type Department Care Team ([facility] st Contact Info) Description 05/16/2017 4:00 PM EST Office [place] [phone] Rosy Tavarez, MANAGER EMPLOYEE RELATIONS [facility] [place] [address] Preventative health care Social History Tobacco Use [...] Patient Instructions * Patient Instructions* Rosy Tavarez, MANAGER EMPLOYEE RELATIONS - 05/16/2017 4:30 PM EST Images from [...] you are older than 45 and are -Bulgarian or have a father or brother who got prostate cancer when he was younger than 65. When should you call for help? Watch closely for changes in your health, and be sure to contact your doctor if you have any problems or symptoms that concern you. Where can you learn more? Visit our health information library at [email or web address]. You can also view health information on Vino Volo, your personal patient account. Log in or sign uptoday. Enter P072 in the search box to learn more about Well Visit, Ages 18 to 50: Care Instructions. Current as of: August 31, 2016 Content Version: 11.4 ?? [id number] [employer]. Care instructions adapted under license by [facility]. If you have questions about a medical condition or this instruction, always ask your healthcare professional. [employer] disclaims any warranty or liability for your use of this information. documented in this encounter Progress Notes * Rosy Tavarez APRN - 05/16/2017 4:00 PM EST Subjective: Patient ID: Emma Min is a 37 y.o. female. REMBERTO Carter is here for a comprehensive medical exam. She moved from [place] and moved in with her boyfriend. She [...] TH Visit (TeleHealth) [place]ematology [place] [address] Pelon Wisdom MD [facility] DR HEMATOLOGY [place] [address] documented as of this encounter Procedures Procedure Name Priority Date/Time Associated Diagnosis Comments HPV Routine 05/16/2017 4:15 PM EST LINE STAKER CYTOLOGY INTERPRETATION Routine 05/16/2017 4:15 PM EST LINE STAKER CYTOLOGY FINAL REPORT Routine 05/16/2017 4:15 PM EST CYTOPATHOLOGY GYNECOLOGICAL Routine 05/16/2017 4:08 PM EST Preventative health care documented in this encounter Results * Land Appraiser Cytology Final Report (05/16/2017 4:15 PM EST) Land Appraiser Cytology Final Report [id number] ? Location: The signing pathologist has (i) examined the relevant preparation(s) for the specimen(s) and (ii) rendered or confirmed the diagnosis(es). . ? Land Appraiser Final DIAGNOSIS Normal Negative for Intraepithelial Lesion or Malignancy (NILM). For consensus guidelines for the management of cervical cancer screening test results, please see: ?? http://www.asccp.o rg . Electronically signed by: ??Douglas PARDO(ASCP), Geena Jimenez Verified: ??05/24/2017 ?Renal Medicine Physician Performed at: ??-[facility] Dept. of Pathology, [place], [place] DISCUSSION Shift in ashley suggestive of [...] Clinical Genomics and Advanced Technology (CGAT) at [facility]. ? - Bentley Ross, PhD, [facility], Director-CGAT STATEMENT OF ADEQUACY Specimen submitted is satisfactory. Endocervical component present. CLINICAL INFORMATION HPV Option: ?Concurrent HPV and Pap Preparation: ? Liquid based Pap Specimen Source: ? Cervical/Endocervi esteban/Vaginal LMP: ? 05/01/2017 Hormones?: ? No Hysterectomy?: ? No ?: ? No ?: ? No I.U.D.?: ? No Pelvic Radiation: ?No Prior LINE STAKER Therapy?: ?No Hist Abnl Pap/Biopsy?: ?? No Hist of HPV Vaccine?: ?No Hist of Smoking?: ?No Hist of ACE exposure?: ?? No . CLINICAL INFORMATION ICD Diagnosis: ? Z12.4 Encounter for screening for malignant neoplasm of cervix Clinical Data, Significant Therapy and Clinical Impression ?? : ?_ This Pap Test has been evaluated with the assistance of the Source MDxp Pap Test Imaging System. Note: The Pap test is a screening test for cervical cancer with an inherent false-negative rate dependent upon several variables. For further information please contact the [facility] Laboratory. Reference: Brett CARTER. Staff Pharmacist of Pap Smear Results. In: Yessenia BS, Foster DAVID, ed. The Pap Smear. [place]: Shahram, 2002: 71-77. [facility] 05/16/2017 4:15 PM EST Rosy Tavarez APRN PATHOLOGY/CYTOLOGY O RDERABLES [facility] [place] [address] * LINE STAKER Cytology Interpretation (05/16/2017 4:15 PM EST) Land Appraiser Cytology Interpretation [facility] Comment:Land Appraiser Cytology Final R eport Land Appraiser Cytology Comment Present [facility] Endocervical Component Present [facility] AP Specimen 05/16/2017 4:15 PM EST 05/24/2017 5:39 PM EST Rosy Tavarez APRN PATHOLOGY/CYTOLOGY O RDCLIVE Performing Organization Address [facility]/ZIP Co de Phone Number [facility] [place] [address] * HPV (05/16/2017 4:15 PM EST) HPV16 NEGATIVE NEGATIVE [facility] HPV 18 NEGATIVE NEGATIVE [facility] HPV Other HR NEGATIVE NEGATIVE [facility] HPV Interpretation See Comment [facility] Comment: NEGATIVE for high-risk HPV *. [...] APRN PATHOLOGY/CYTOLOGY O PABLO Performing Organization Address [facility] Co de Phone Number [facility] [place] [address] * Cytopathology Gynecological (05/16/2017 4:08 PM EST) AP Specimen 05/16/2017 4:08 PM EST 05/16/2017 4:08 PM EST Narrative [facility] - 05/16/2017 4:08 PM EST Specimen requisition ordered. ??Separate Pathology report to follow Rosy Tavarez APRN PATHOLOGY/CYTOLOGY O PABLO Performing Organization Address [facility]/ZIP Co de Phone Number [facility] [place] [address] documented in this encounter Visit Diagnoses Diagnosis Preventative health care Routine general medical examination at a health care facility documented in this encounter Care Teams Technical Operations Manager Relationship Specialty Start Date End Date Rosy Tavarez APRN [facility] [address] PCP - General General Internal Medicine 02/14/1709/21 documented as of this encounter
--- OUTSIDE RECORDS SUMMARY | 2024-05-15 12:57 | XMS_ITS | Encounter Summary ---
Author Organization [facility] [place] [address] Care Team Providers Care Airborne Operations Superintendent Name Role Phone Rosy Tavarez GO Primary Care Provider Encounter Details Date Type Department Care Team (Late st Contact Info) Description 03/21/2017 Telephone [place] [address] Ольга Carter LPN Social History [...] patient that she received a call from [facility] that Trulicity is covered by her insurance and is asking for a call back. Called [facility] pharmacy. Denial to be faxed to endocrine. Patient notified that once this is received PA will be done. documented in this encounter Plan of Treatment Upcoming Encounters Date Type Department Care Team (Late st Contact Info) Description 05/13/2025 4:00 PM EST TH Visit (TeleHealth) Hematology [place] [address] Pelon Wisdom MD [facility] [place] [address] documented as of this encounter Visit Diagnoses Not on filedocumented in this encounter Care Teams Airborne Operations Superintendent Relationship Specialty Start Date End Date Rosy Tavarez APRN [facility] [place] [address] PCP - General General Internal Medicine 02/14/1709/21 documented as of this encounter
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
--- OUTSIDE RECORDS SUMMARY | 2024-05-15 12:57 | XMS_ITS | Encounter Summary ---
Author Organization [facility] [place] [address] Care Team Providers Care Manufacturer Name Role Phone Rosy Tavarez APRN Primary Care Provider [phone] Reason for Visit * Reason Onset Date Comments Medication Refill 04/05/2017 Encounter Details Date Type Department Care Team (Late st Contact Info) Description 04/05/2017 Refill [place] [phone] Isabel Hicks MD Social History Tobacco Use Types Packs/Day [...] ? Message Received: 2 days ago ? YuditskaIsabel atkins MD Isham, Gail, LPN ? Caller: Unspecified [...] TH Visit (TeleHealth) Hematology [place] [address] Pelon Wisdom MD [facility] DR HEMATOLOGY [place] [address] documented as of this encounter Visit Diagnoses Not on filedocumented in this encounter Care Teams Manufacturer Relationship Specialty Start Date End Date Rosy Tavarez, GO [facility] [address] PCP - General General Internal Medicine 02/14/1709/21 documented as of this encounter
--- OUTSIDE RECORDS SUMMARY | 2024-05-15 12:57 | XMS_ITS | Encounter Summary ---
Author Organization [facility] [place] [address] Care Team Providers Care Insurance Adviser Name Role Phone Rosy Tavarez GO Primary Care Provider [phone] Encounter Details Date Type Department Care Team (Latest Contact Info) Description 04/24/2017 3:35 PM EST Laboratory Appointment Lab [address] [place] [phone] Type 2 diabetes mellitus without complication, without [...] TH Visit (TeleHealth) Hematology [place] [address] Pelon Wisdom MD [facility] [address] [place] [address] documented as of this encounter Procedures Procedure [...] EST) LDL Cholesterol, Direct 187 <=190 mg/dL [facility] Blood specimen (specimen) 04/24/2017 3:48 PM EST 04/24/2017 3:54 PM EST Narrative Resulting Agency Comment Spec In Lab Isabel Hicks MD CHEMISTRY ORDERABLES Performing Organization Address [facility] Co de Phone Number [facility] [place] [address] * Creatinine (04/24/2017 3:48 PM EST) Creatinine 0.75 0.70 - 1.20 mg/dL [facility] Est Glomerular Filtration Rate >60 >=60 [facility] Comment: The reported eGFR should be multiplied by 1.2 for patients. The MDRD is not an appropriate measure of renal function for patients with body mass extremes or in patients with acute kidney failure. http://[email or web address]/DHnkdep [email or web address]://Garpun.DriverSide/DHMCnkf Blood specimen (specimen) 04/24/2017 3:48 PM EST 04/24/2017 3:54 PM EST Narrative Resulting Agency Comment Spec In Lab Isabel Hicks MD CHEMISTRY ORDERABLES Performing Organization Address [facility] Co de Phone Number [facility] [place] [address] * (ABNORMAL) Hemoglobin A1c (04/24/2017 3:48 PM EST) Hemoglobin A1c 8.8(H) 4.3 - 5.6 % [facility] Comment: Reference Range: 4.3 [...] 1, S67-74 Estimated Average Glucose 206 mg/dL [facility] Comment: eAG equivalents for [...] into estimated average glucose values. ??Diabetes Care 2008:31(8):9488-8557. Blood specimen (specimen) 04/24/2017 3:48 PM EST 04/24/2017 3:54 PM EST Narrative Resulting Agency Comment Spec In Lab Isabel Hicks MD CHEMISTRY ORDERABLES [facility] [place] [address] documented in this encounter Visit Diagnoses Diagnosis Type 2 diabetes mellitus without complication, without long-term current use of insulin documented in this encounter Care Teams Insurance Adviser Relationship Specialty Start Date End Date Rosy Tavarez, CIGARETTE MAKING MACHINE CATCHER [facility] [place] [address] PCP - General General Internal Medicine 02/14/1709/21 documented as of this encounter
--- OUTSIDE RECORDS SUMMARY | 2024-05-15 12:57 | XMS_ITS | Encounter Summary ---
Author Organization [place] [address] Care Team Providers Care Metallurgical Analyst Name Role Phone Rosy Tavarez GO Primary Care Provider [phone] Encounter Details Date Type Department Care Team (Late st Contact Info) Description 04/18/2017 Telephone Psychiatry [place] [address] Ivy Soria MD Social History Tobacco Use Types Packs/Day [...] TH Visit (TeleHealth) [place] [address] Pelon Wisdom MD [facility] [place] [address] documented as of this encounter Visit Diagnoses Not on filedocumented in this encounter Care Teams Metallurgical Analyst Relationship Specialty Start Date End Date Rosy Tavarez, INSURANCE SALES SPECIALIST [facility] [place] [address] PCP - General General Internal Medicine 02/14/17 6/2 05/11 documented as of this encounter
--- OUTSIDE RECORDS SUMMARY | 2024-05-15 12:57 | XMS_ITS | Encounter Summary ---
[place] [address] Care Team Providers Care Hide Spreader Name Role Phone TavarezRosy allen Sabrina STILES Primary Care Provider Reason for Visit * Reason Comments Follow-up Encounter Details Date Type Department Care Team (Latest Contact Info) Description 04/29/2017 11:00 AM EST Office [place] [address] Moriah Tobar APRN [address] [place] [address] Gastroesophageal reflux disease, esophagitis presence not specified; [...] Tobar APRN - 04/29/2017 11:00 AM EST ASSISTANT BOYS TRACK COACH: Moriah Tobar APRN PCP: Rosy Tavarez APRN [...] colonoscopy done approximately 6 years ago in [place]. Unremarkable findings. Was treated for IBS. Has been watching her diet. Approximately one year ago was seen in [place]. She did not see a GI specialist, but they did do an EGD. Was told there was some redness and irritation. Otherwise unremarkable. Reflux symptoms on a nightly basis. Currently taking ranitidine for acid reflux symptoms. Was previously taking omeprazole. This helped with the heartburn symptoms. She stopped taking this when she moved to [place] because she forgot to transfer this medication [...] SOCIAL HISTORY Currently unemployed. Did work in [employer] at [facility] until she moved. . Has 2 [...] this 27 minute visit were spent in [id number] discussion and counseling the patientas detailed per above. Signed, Moriah Tobar, FINANCIAL SERVICES OFFICER 04/29/17 11:45 AM Section of Gastroenterology & Hepatology [facility] documented in this encounter Plan of Treatment Upcoming Encounters Date Type Department Care Team (Late st Contact Info) Description 05/13/2025 4:00 PM EST TH Visit (TeleHealth) [place]ology [place] [address] Pelon Wisdom MD [facility] [place] [address] documented as of this encounter Visit Diagnoses Diagnosis Gastroesophageal reflux disease, esophagitis presence not specified Irritable bowel syndrome with diarrhea Irritable bowel syndrome Bloating Flatulence, eructation, and gas pain documented in this encounter Care Teams Hide Spreader Relationship Specialty Start Date End Date Rosy Tavarez APRN [facility] [place] [address] PCP - General General Internal Medicine 02/14/1709/21 documented as of this encounter
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
--- OUTSIDE RECORDS SUMMARY | 2024-05-15 12:57 | XMS_ITS | Encounter Summary ---
Author Organization [facility] [place] [address] Care Team Providers Care Data Software Engineer Name Role Phone Rosy Tavarez APRN Primary Care Provider [phone] Encounter Details Date Type Department Care Team (Latest Contact Info) Description 08/29/2017 - 08/29/2017 11:59 PM EDT Hospital Encounter Radiology Library at [facility] [place] [address] Rosy Tavarez, [facility] [place] [address] Discharge Disposition: Home Social History Tobacco Use [...] TH Visit (TeleHealth) [place]ology [place] [address] Pelon Wisdom MD [facility] [address] [place] [address] documented as of this encounter Procedures Procedure Name Priority Date/Time Associated Diagnosis Comments FILM LIBRARY STORAGE ONLY CT HEAD Routine 08/29/2017 12:00 AM EDT documented in this encounter Results * Film Library- Storage Only CT Head (08/29/2017 12:00 AM EDT) Narrative [facility] - 08/30/2017 12:19 PM EDT This exam is for storage only and is auto-finalizing. Rosy Tavarez APRN IMG FILM LIBRARY ORD ERABLES [place], [place] documented in this encounter Visit Diagnoses Not on filedocumented in this encounter Care Teams Data Software Engineer Relationship Specialty Start Date End Date Rosy Tavarez APRN [facility] [place] [address] PCP - General General Internal Medicine 02/14/17 6/2 05/11 documented as of this encounter
--- OUTSIDE RECORDS SUMMARY | 2024-05-15 12:57 | XMS_ITS | Encounter Summary ---
Author Organization [facility] [place] [address] Care Team Providers Care Assembler Golf Wood Head Name Role Phone Rosy Tavarez APRN Primary Care Provider Encounter Details Date Type Department Care Team (Late st Contact Info) Description 05/15/2017 4:00 PM EST Office Visit Psychiatry [place] [address] You Robertson, PhD Post-traumatic stress disorder, chronic Social History Tobacco [...] 20 mins Chief Compliant/Diagnosis: PTSD Objective and [place]: Assessment of needs for treatment Assessments and [...] TH Visit (TeleHealth) [place]ematology [place] [address] Pelon Wisdom MD [facility] [place] [address] documented as of this encounter Visit Diagnoses Diagnosis Post-traumatic stress disorder, chronic documented in this encounter Care Teams Assembler Golf Wood Head Relationship Specialty Start Date End Date Rosy Tavarez APRN [facility] [place] [address] PCP - General General Internal Medicine 02/14/17 6/2 05/11 documented as of this encounter
--- OUTSIDE RECORDS SUMMARY | 2024-05-15 12:57 | XMS_ITS | Encounter Summary ---
Author Organization [facility] Address [facility] [place] [address] Care Team Providers Care Passenger Booking Clerk Name Role Phone Rosy Tavarez APRN Primary Care Provider Reason for Visit * Reason Comments Chest Pain for about a month noah duran had pain in her chest area and under her armpits. Only hurts when she touches it or bends over Encounter Details Date Type Department Care Team (Late st Contact Info) Description 02/26/2017 11:40 AM EST Office [place] [address] Rosy Tavarez, GO [facility] [place] [address] Musculoskeletal chest pain Social History Tobacco Use [...] Patient Instructions * Patient Instructions* Rosy Tavarez, ADVERTISING SOLICITOR - 02/26/2017 11:54 AM EST Images from [...] your doctor if you can take an [id number] medicine. ?? Rest and protect the sore [...] Where can you learn more? Visit our [employer] information library at [email or web address] [email or web address]. You can also view health information on [employer], your personal patient account. Log in or sign uptoday. Enter V293 in the search box to learn more about Musculoskeletal Chest Pain: Care Instructions. Current as of: July 09, 2016 Content Version: 11.4 ?? [id number] [employer]. Care instructions adapted under license by [facility]. If you have questions about a medical condition or this instruction, always ask your healthcare professional. [employer] disclaims any warranty or liability for your [...] TH Visit (TeleHealth) Hematology [place] [address] Pelon Wisdom MD [facility] [place] [address] documented as of this encounter Procedures Procedure Name Priority Date/Time Associated Diagnosis Comments SEDIMENTATION RATE Routine 02/26/2017 12 :36 PM EST Musculoskeletal chest pain CK Routine 02/26/2017 12:36 PM EST Musculoskeletal chest pain documented in this encounter Results * (ABNORMAL) Sedimentation rate (02/26/2017 12:36 PM EST) Sedimentation Rate Automated 22(H) 0 - 20 mm/hr [facility] Blood specimen (specimen) 02/26/2017 12:36 PM EST 02/26/2017 12:45 PM EST Narrative Resulting Agency Comment Spec In Lab Rosy Tavarez ADVERTISING SOLICITOR HEMATOLOGY ORDERABLE S Performing Organization Address City/[facility]/ZIP Co de Phone Number [facility] [place] [address] * CK (02/26/2017 12:36 PM EST) Creatine Kinase 66 0 - 160 unit/L [facility] Blood specimen (specimen) 02/26/2017 12:36 PM EST 02/26/2017 12:45 PM EST Narrative Resulting Agency Comment Spec In Lab Rosy Tavarez ADVERTISING SOLICITOR CHEMISTRY ORDERABLES Performing Organization Address City/[facility]/ZIP Co de Phone Number [facility] [place] [address] documented in this encounter Visit Diagnoses Diagnosis Musculoskeletal chest pain Other chest pain documented in this encounter Care Teams Passenger Booking Clerk Relationship Specialty Start Date End Date Rosy Tavarez APRN [facility] [place] [address] PCP - General General Internal Medicine 02/14/1709/21 documented as of this encounter
--- OUTSIDE RECORDS SUMMARY | 2024-05-15 12:57 | XMS_ITS | Encounter Summary ---
[place] [address] Care Team Providers Care Law Secretary Name Role Phone Rosy Tavarez GO Primary Care Provider Reason for Visit * Reason Onset Date Comments Prior Authorization 03/27/2017 I need a PA for Victoza - unable to supervisor picking crew script at the pharmacy Encounter Details Date Type Department Care Team (Late Contact Info) Description 03/27/2017 [place]phone [place] [phone] Mell Goldberg V garment parts cutter hand (I need a PA for Victoza - unable to supervisor picking crew script at the pharmacy) Social History Tobacco [...] for Prior Auth communicated to the [facility] [place] via In Basket. documented in this encounter Plan of Treatment Upcoming Encounters Date Type Department Care Team (Late st Contact Info) Description 05/13/2025 4:00 PM EST TH Visit (TeleHealth) [place] [address] Pelon Wisdom MD [facility] [place] [address] documented as of this encounter Visit Diagnoses Not on filedocumented in this encounter Care Teams Law Secretary Relationship Specialty Start Date End Date Rosy Tavarez, CRANE MECHANIC [facility] [place] [address] PCP - General General Internal Medicine 02/14/1709/21 documented as of this encounter
--- OUTSIDE RECORDS SUMMARY | 2024-05-15 12:58 | XMS_ITS | Referral Summary ---
Author Organization [facility] Address [address] [place] [address] Care Team Providers Care Associate Media Director Name Role Phone Terry Hall MD Unavailable Che Sharpe Primary Care Provider + Encounters Date Type Department Care Team Description 03/09/2024 Refill [facility] Endocrinology - [address] [address] Gely Walker NP Medications Refill 02/24/2024 Lab Requisition [facility] Pathology & Laboratory Medicine - Main [place] [address] [place] [address] Chago Parker MD Encounter for other general examination from Last 3 Months Allergies Active Allergy Reactions Criticality Noted Date Comments Exenatide Microspheres Diarrhea,GI upset 2016 Lactose Diarrhea Low 09/23/2014 Latex, Natural Rubber Swelling,Rash Low 09/23/2014 Metformin GI upset 10/26/2016 Quetiapine Anaphylaxis High 09/23/2014 All anti depressant medications Medications famotidine (PEPCID) 20 mg tablet Take 20 mg by mouth 2 times daily. Active medroxyPROGESTERo ne (DEPO-PROVERA) 150 mg/mL injection INJECT 1ML INTRAMUSCULARLY EVERY 3 MONTHS 09/05/19 22 Active insulin pump cart,auto,BT-cntr (OMNIPOD 5 G6 INTRO KIT, GEN 5,) cartridgeIndicati ons:Type 1 diabetes mellitus with hyperglycemia ([facility]) Inject 1 Each into the skin once for 1 dose. 1 Each 10/18/19 22 Active ONETOUCH ULTRA2 METER Use as directed as needed (glucose monitoring). 1 Each 10/21/19 Active ONETOUCH ULTRAMINI Use 1 Each as directed 3 times daily. E11.65. Pharmacy may substitute a different brand for insurance coverage. 1 Each 10/21/19 Active ONE TOUCH DELICA 33 gauge misc Use 3 lancet as directed daily. E11.65. Pharmacy may substitute a different brand for insurance coverage. 300 Each 3 10/21/19 Active blood glucose test strips Use 3 Strips as directed daily. Brand: One Touch Ultra. E11.65. Pharmacy may substitute a different brand for insurance coverage. 300 Each 3 10/21/19 22 Active Insulin Syringe-Needle U-100 1 mL 29 gauge x 1/2 syringe Use 1 Syringe as directed daily. Brand: BD Ultrafine. For loading insulin pump reservoir 100 Each 10/25/19 22 Active insulin glargine (LANTUS SOLOSTAR/SEMGLEE) 100 unit/mL (3 mL) injection penIndications:Ty pe 2 diabetes mellitus with hyperglycemia, with long-term current use of insulin ([facility]) Inject 18 Units into the skin as needed (daily for pump failure). 3 mL 5 06/25/19 23 Active insulin pen needles 31G x 3/16 Use as directed as needed for Other (pump failure). Brand: BD Ultra Fine Mini 20 Each 5 06/25/19 23 Active DEXCOM G6 SENSOR deviceIndications :Type 2 diabetes mellitus with hyperglycemia, with long-term current use of insulin ([facility]) CHANGE EVERY 10 DAYS 3 Each 09/09/19 24 Active DEXCOM G6 TRANSMITTER deviceIndications :Type 2 diabetes mellitus with hyperglycemia, with long-term current use of insulin ([facility]) CHANGE DIRECTED EVERY 3 MONTHS 1 Each 3 10/02/19 24 Active insulin pump cart,automated,BT (OMNIPOD 5 G6 PODS, GEN 5,) cartridgeIndicati ons:Type 1 diabetes mellitus with hyperglycemia (HCC-CMS) Use 1 Each as directed every 72 hours. E11.65 30 Each 3 01/15/20 24 Active semaglutide (OZEMPIC) 2 mg/dose (8 mg/3 mL) pen injector INJECT 2MG UNDER THE SKIN WEEKLY 9 mL 01/29/20 24 Active insulin lispro (HUMALOG U-100 INSULIN) 100 unit/mL vial INJECT UP TO 75 UNITS UNDER THE SKIN VIA PUMP 70 mL 03/10/20 24 Active Active Problems Patient Care Coordination No te Formatting of this note migh t be different from the original. Patient has given permission for the [facility] to verbally discuss the following information [...] hyperglycemia, with long-term current use of insulin ([facility]) 09/23/2014 Overview (01/20/2015): ICD10 Update Auto Replacement Assessment & Plan (07/01/2023 14:57 EDT): A1c 6.7 last year, due now, ordered [...] on accuracy of carb counting at supper. Assessment & Plan (11/08/2022 17:25 EDT): A1c 6.7 Now on omnipod 5 and dexcom G6 No changes to her pump settings today. I do not have her download to review but she reports qute good control Recommended over patch for her dexcom sensors/pods to help with adhesion and skin reactions Dicussed Keke Duckworth to help her with carb counting, consider doing this for her breakfast so as not to get too overwhelmed, start with the first meal of day until she feels more comfortable. Assessment & Plan (07/05/2022 18:28 EDT): A1c 6.7 Fantastic progress Will adjust I:Carb to 1:8 this was strengthened when she was having high BG with recent infections Recommended over patch for her dexcom sensors/pods to help with adhesion and skin reactions Will have pt work with CDE to improve her carb counting and pump knowledge Social History Tobacco Use Types Packs/Day Years Used Date Smoking Tobacco: Former Smokeless Tobacco: Never Alcohol Use Standard Drinks/Week Comments Yes 1 (1 standard drink = 0.6 oz pur e alcohol) PHQ-2 Answer Date Recorded PHQ-2 Score 0 11/24/2019 Interpersonal Safety Answer Date Record ed Physically Hurt Never 11/24/2019 Verbally Threaten Not on file 11/24/2019 Comments No Sex and Gender Information Value Date Recorded Sex Assigned at Female 01/29/2022 18:29 EDT Legal Sex Female 17:26 EST Gender Identity Female 05/30/2019 9:03 EST Sexual [...] Index 29.2 10/16/2021 0848 EDT Functional Status * Because of a physical, mental, or emotional condition, does this person have difficulty doing errands alone such as visiting a doctor's office or shopping? Answer Date of Assessment Author No 05/23/2016 14:47 EST Mental Status * Because of a physical, mental, or emotional condition, does this person have serious difficulty concentrating, remembering, or making decisions? Answer Entry Date Author No 05/23/2016 14:47 EST Plan of Treatment Upcoming Encounters Date Type Department Care Team (Late st Contact Info) Description 07/23/2024 16:20 EDT Telemedicine [facility] Endocrinology - [address] [place], [place] [phone] Trini Hilario DO [address] [place] [phone] Procedures Procedure Name Priority Date/Time Associated Diagnosis Comments SURGICAL PATHOLOGY Today 02/24/2024 16 :57 EST Encounter for other general examination HEMOGLOBIN A1C Routine 06/20/2022 15:32 EST HEPATITIS C AB W REFLEX TO HCV RNA BY PCR Routine 08/09/2020 9:46 EDT LIPID PROFILE (INCLUDES CHOLESTEROL, TRIGLYCERIDES, HDL, LDL) Routine 08/10/2015 14:11 EDT Type 2 diabetes mellitus with hyperglycemia ([facility]) ([facility]) URINE [id number] NE RATIO (ACR) Routine 08/10/2015 14:11 EDT Type 2 diabetes mellitus with hyperglycemia (CMS-HCC) ([facility]) from Last 3 Months or Most Recently Relevant to Health Maintenance Results * SURGICAL PATHOLOGY (02/24/2024 16:57 EST) Note to Patient The following pathology results have been interpreted by your pathologist and may be available to you before your health provider has had the opportunity to review them. Please allow time for your provider to receive these results and explore management options, if applicable. 02/28/2024 9:20 EST [facility] Final Diagnosis A. ENDOCERVIX, CURETTAGE: -Fragments of benign endocervix. 02/28/2024 9:20 EST [facility] Diagnosis Comment Minimal squamous mucosa present for evaluation. Deeper sections of been evaluated. 02/28/2024 9:20 EST [facility] Attestation By the signature below, the attending physician certifies that they have 1) personally conducted a gross and/or microscopic examination of the described specimen(s), and/or personally interpreted the results of laboratory testing of the described specimen(s), and 2) personally rendered or confirmed the above diagnosis. 02/28/2024 9:20 [facility] at 0920 Clinical History Pap: LSIL, (-) HR HPV, 02/28/2024 9:20 [facility] Gross Description A. Received in formalin labelled with proper patient identification (initials K, L) and ECC is a 1.0 x 0.5 x 0.3 cm aggregate of predominantly mucinous soft tissue admixed with minute fragments of rossi tissue which is entirely submitted in A1. NARENDRA MARTINEZ(ASCP) 02/25/2024 9:39 02/28/2024 9:20 [facility] Performing Lab [facility] 02/28/2024 9:20 [facility] Scanned Images 02/28/2024 9:20 [facility] Tissue ENDOCERVICAL STRUCTURE / Unknown 02/24/2024 16:57 EST 02/25/2024 6:48 EST Chago Parker MD PATHOLOGY ORDERABLES F inal Result [facility] [address] [place] [address] * (ABNORMAL) HEMOGLOBIN A1C (06/20/2022 15:32 EST) Hemoglobin A1c 6.7(H) <5.7 % 06/21/2022 11:22 [facility] Comment: Glycemic Status References: Normal: ??<5.7% Pre-Diabetes: ??5.7% - 6.4% Diagnostic of Diabetes: ??> or = 6.5% (if confirmed) Est Avg Glucose 146 mg/dL 3 11:22 EST [facility] Comment:The eAG represents t he A1c result expressed as average glucose in mg/dL. Blood VENOUS BLOOD / Unknown 06/20/2022 15:32 EST 06/20/2022 22:25 EST us Provider Outr Resulting Lab CHEMISTRY & BLOOD GA S ORDERABLES Final Result Performing Organization Address City/[facility]/ZIP Co de Phone Number [facility] [address] [place] [address] * HEPATITIS C AB W REFLEX TO HCV RNA BY PCR (08/09/2020 9:46 EDT) Hep C Antibody Negative Negative 08/10/2020 9:48 EDT [facility] Blood VENOUS BLOOD / Unknown 08/09/2020 9:46 EDT 08/09/2020 21:13 EDT us Provider Outr Resulting Lab CHEMISTRY & BLOOD GA S ORDERABLES Final Result Performing Organization Address [facility] de Phone Number [facility] [address] [place] [address] * ALBUMIN, URINE (08/10/2015 14:11 EDT) Creatinine, Urn [place] 104.2 mg/dl 08/11/2015 9:20 EDT [facility] Ur Albumin mg/dl 0.8 mg/dl 08/11/2015 12:30 EDT [facility] Ur Alb ug/mg Crea 7.7 ug/mg Crea 08/11/2015 12:30 EDT [facility] Comment: Normal: <30 ug/mg creat High albuminuria: 30-300 ug/mg creat Very high albuminuria: >300 ug/mg creat Urine specimen (specimen) URINE / Unknown 08/10/2015 14:11 EDT 08/10/2015 15:22 EDT us Greta Galicia WASHER CUTTER CHEMISTRY & BLOOD GAS ORDER ALAN Final Result Performing Organization Address [facility] Co de Phone Number [facility] [address] [place] [address] * LIPID PROFILE (INCLUDES CHOLESTEROL, TRIGLYCERIDES, HDL, LDL) (08/10/2015 14:11 EDT) Cholesterol 234 mg/dl 08/10/2015 16:24 EDT [facility] Comment: Slight hemolysis Desirable:<200 Borderline High:200-239 High:>ay=610 Triglycerides 209 mg/dl 08/10/2015 16:24 EDT [facility] Comment: Slight hemolysis Normal:<150 Borderline High:150-199 High:200-499 Very High:>zu=544 HDL 49 mg/dl 08/10/2015 16:24 T [facility] Comment: Slight hemolysis Low:<40 Normal:40-60 Desirable: >60 LDL, Calculated 143 mg/dl 6 16:24 EDT [facility] Comment: Optimal:<100 Near Optimal:100-129 Borderline High:130-159 High:160-189 Very High:>yi=776 Chol/HDL Ratio 4.8 08/10/2015 16:24 T [facility] Fasting? Unknown 08/10/2015 14:11 T [facility] Non HDL Cholesterol 185 mg/dl 08/10/2015 16:24 T [facility] Comment: Slight hemolysis Desirable:<130 Borderline:130-159 High: 160-189 Very High: >qg=737 Blood specimen (specimen) BLOOD SPECIMEN / Unknown 08/10/2015 14:11 EDT 08/10/2015 15:20 EDT Greta Galicia NP CHEMISTRY & BLOOD GAS ORDER ALAN Final Result [facility] [address] [place] [address] from Last 3 Months or Most Recently Relevant to Health Maintenance Insurance [place]ICA[place] Care Teams Associate Media Director Relationship Specialty Start Date End Date Che Sharpe PA [address] [place] [address] [place] [phone] PCP - General 10/16/21 Terry Hall MD [address] [place] [id number] 07/02/14
--- OUTSIDE RECORDS SUMMARY | 2024-05-15 12:58 | XMS_ITS | Encounter Summary ---
Author Organization [facility] Address [address] [place] [address] Care Team Providers Care Food Services Director Name Role Phone Terry Hall MD Unavailable Che Sharpe Primary Care Provider + Reason for Visit * Reason Onset Date Comments Blood Sugar Problem 07/24/2023 Letter for School/Work 07/25/2023 Encounter Details Date Type Department Care Team (Late st Contact Info) Description 07/24/2023 Telephone [facility] [address] [place] [address] Gely Walker, MIGUEL [address] [facility] [address] [place] [address] Blood Sugar Problem; Letter for [...] documented as of this encounter Functional Status * Because of a physical, mental, or emotional condition, does this person have difficulty doing errands alone such as visiting a doctor's office or shopping? Answer Date of Assessment Author No 05/23/2016 14:47 EST documented as of this encounter Mental Status * Because of a physical, mental, or emotional condition, does this person have serious difficulty concentrating, remembering, or making decisions? Answer Entry Date Author No 05/23/2016 14:47 EST documented in this encounter Miscellaneous Notes * [...] was told a letter wouldbe put through [employer], but patient has not received anything. Please call back to discuss. * Telephone Encounter - Camila Sewell CDE - 07/24/2023 1712 EDT Telephone call to Emma. She is using the omnipod 5 insulin pump. I am not able to see any pump data on [employer]. I discussed with her how to connect. Instructions were sent via [employer]. She understands she may need to contact [employer] if unable to connect. Wifi is required [...] heard back from CDE or provider. This procedure writer discussed pt situation with Dr. Barajas [...] attend work tomorrow. Sending the letter to [facility] is fine with her as she will [...] Encounter - Karen Agee RN - 07/24/2023 0934 EDT Images from the original note were [...] has been pushing fluids. PLAN Routing to [employer] for help with full Clarity download. Routing to Gely Walker and Priscilla fontenot to view and advise. Karen Agee RN * Telephone Encounter - Jamila Stockton - 07/24/2023 0823 EDT Endocrinology Incoming Call Reason for call: [...] concerns for hyperglycemia/hypoglycemia/ketones- send ROUTINE priority to [facility] Endocrinology Nurse [place] Next Appointment: Visit date not found Last Office Visit: 10/16/2021 Breanna Flores MD Last Telehealth Encounter: 06/26/2023 Gely Walker CAMPUS WELLNESS COORDINATOR documented in this encounter Plan of Treatment Upcoming Encounters Date Type Department Care Team (Late st Contact Info) Description 07/23/2024 16:20 EDT Telemedicine [facility] - [place] [place], [place] [phone] Trini Hilario DO [address] [place] [phone] documented as of this encounter Visit Diagnoses Not on filedocumented in this encounter Care Teams Food Services Director Relationship Specialty Start Date End Date Che Sharpe PA [address] [place] [phone] PCP - General 10/16/21 Terry Hall MD [address] [place] [id number] 07/02/14 documented as of this encounter
--- OUTSIDE RECORDS SUMMARY | 2024-05-15 12:58 | XMS_ITS | Encounter Summary ---
Author Organization [facility] [place] [place] [address] Care Team Providers Care Special Technical Operations Officer Name Role Phone Leeanna Cohn MD Primary Care Provider [phone] Reason for Visit * Reason Onset Date Comments Other 11/27/2016 Encounter Details Date Type Department Care Team (Late st Contact Info) Description 11/27/2016 Telephone [place] [phone] Nuria Jones Other Social History Tobacco Use [...] encounter Miscellaneous Notes * Telephone Encounter - Latonia Morales LPN - 11/27/2016 2:10 PM EDT [...] and relationship (if other than patient-full name): [facility] Best time to call back: any Ok to leave a message: [y] Ok to send my- message: [] Offered Appointment: Nurse contacted via: Message: x Call: Pager: documented in this encounter Plan of Treatment Upcoming Encounters Date Type Department Care Team (Late st Contact Info) Description 05/13/2025 4:00 PM EST TH Visit (TeleHealth) H[place]ology [place] [phone] Pelon Wisdom MD [facility] [place] [address] documented as of this encounter Visit Diagnoses Not on filedocumented in this encounter Care Teams Special Technical Operations Officer Relationship Specialty Start Date End Date Leeanna Cohn MD [address] [place] [address] PCP - General 03/14/10 02/13/17 documented as of this encounter
--- OUTSIDE RECORDS SUMMARY | 2024-05-15 12:58 | XMS_ITS | Encounter Summary ---
Author Organization [facility] Address [address] [place] [address] Care Team Providers Care Arboriculture Instructor Name Role Phone Terry Hall MD Unavailable Che Sharpe Primary Care Provider + Reason for Visit * Reason Comments Medications Refill Encounter Details Date Type Department Care Team (Late st Contact Info) Description 03/09/2024 Refill [facility] Endocrinology - [facility] [address] [place] [address] Gely Walker, MIGUEL [address] [facility] [address] [place] [address] Medications Refill Social History Tobacco [...] 05/23/2016 14:47 EST documented in this encounter Ordered Prescriptions Prescription Sig Dispense Quantity Refills Last Filled Start Date End Date insulin lispro (HUMALOG U-100 INSULIN) 100 unit/mL vial INJECT UP TO 75 UNITS UNDER THE SKIN VIA PUMP 70 mL 03/10/2024 documented in this encounter Miscellaneous Notes * Telephone Encounter - Kavin Stephens RN - 03/10/2024 5557 EST Requested Prescriptions Signed Prescriptions Disp Refills insulin lispro (HUMALOG U-100 INSULIN) 100 unit/mL vial 70 mL 0 Sig: INJECT UP TO 75 UNITS UNDER THE SKIN VIA PUMP Authorizing Provider: GELY WALKER Ordering User: KAVIN STEPHENS RN, BSN 03/10/24 14:38 documented in this encounter Plan of Treatment Upcoming Encounters Date Type Department Care Team (Late st Contact Info) Description 07/23/2024 16:20 EDT Telemedicine [facility] Endocrinology - [address] [phone] Trini Hilario, DO [address] [place] [phone] documented as of this encounter Visit Diagnoses Not on filedocumented in this encounter Discontinued Medications Medication Sig Discontinue Reason Start Date End Da te insulin lispro (HUMALOG U-100 INSULIN) 100 unit/mL vial INJECT UP TO 75 UNITS UNDER THE SKIN VIA PUMP 01/29/2024 03/10/2024 documented as of this encounter Care Teams Arboriculture Instructor Relationship Specialty Start Date End Date Che Sharpe PA [address] [place] [address] [place] [phone] PCP - General 10/16/21 Terry Hall MD [address] [place] [phone] 07/02/14 documented as of this encounter
--- OUTSIDE RECORDS SUMMARY | 2024-05-15 12:58 | XMS_ITS | Encounter Summary ---
Author Organization [facility] Address [address] [place] [address] Care Team Providers Care Wrapping Clerk Name Role Phone Terry Hall MD Unavailable Che Sharpe Primary Care Provider + Reason for Visit * Reason Comments Medications Refill Encounter Details Date Type Department Care Team (Late st Contact Info) Description 09/09/2023 Refill [facility] Endocrinology - [facility] [address] [place] [address] Gely Walker, MIGUEL [address] [facility] [address] [place] [phone] Medications Refill Social History Tobacco [...] Refills Last Filled Start Date End Date DEXCOM G6 SENSOR deviceIndications: Type 2 diabetes mellitus with hyperglycemia, with long-term current use of insulin ([facility]) CHANGE EVERY 10 DAYS 3 Each 11 09/09/2023 Blood-Glucose Transmitter (DEXCOM G6 TRANSMITTER) deviceIndications: Type 2 diabetes mellitus with hyperglycemia, with long-term current use of insulin ([facility]) 1 Each by misc (non-drug; combo route) route every 3 months. 1 Each 3 09/09/2023 10/02/2023 documented in this encounter Miscellaneous Notes * Telephone Encounter - Margy Hardin - 09/09/2023 0925 EDT Endocrinology Incoming Call Reason for call: DME Medication Issue/PA Request Medication(s) Requested: Blood-Glucose Sensor (DEXCOM G6 SENSOR) device Pharmacy: [facility] [phone] Will the patient be out of medication in the next 3 days? Yes - Send HIGH priority to [facility] Endocrinology Nurse [place] Next Appointment: Visit date not found Last [...] Contact Info) Description 07/23/2024 16:20 EDT Telemedicine [facility] Endocrinology - [address] [address] Trini Hilario, DO [address] [place] [phone] documented as of this encounter Visit Diagnoses [...] documented as of this encounter Care Teams Wrapping Clerk Relationship Specialty Start Date End Date Che Sharpe PA [address] [place] [phone] PCP - General 10/16/21 Terry Hall MD [address] [place] [phone] 07/02/14 documented as of this encounter
--- OUTSIDE RECORDS SUMMARY | 2024-05-15 12:58 | XMS_ITS | Clinical Summary ---
Author Organization [facility] Address [address] [place] [address] Care Team Providers Care Black Top Spreader Machine Operator Name Role Phone Terry Hall MD [...] ons:Type 1 diabetes mellitus with hyperglycemia (HCC-CMS) Inject [...] coverage. 300 Each 3 10/21/19 22 Active blood glucose test strips Use 3 Strips as directed daily. Brand: One Touch Ultra. E11.65. Pharmacy may substitute a different brand for insurance coverage. 300 Each 3 10/21/19 22 Active Insulin Syringe-Needle U-100 1 mL 29 gauge x 1/2 syringe Use 1 Syringe as directed daily. Brand: BD Ultrafine. For loading insulin pump reservoir 100 Each 12 10/25/19 22 Active insulin glargine (LANTUS SOLOSTAR/SEMGLEE) 100 unit/mL (3 mL) injection penIndications:Ty pe 2 diabetes mellitus with hyperglycemia, with long-term current use of insulin ([facility]) Inject 18 Units into the skin as needed (daily for pump failure). 3 mL 5 06/25/19 23 Active insulin pen needles 31G x 3/16 Use as directed as needed for Other (pump failure). Brand: BD Ultra Fine Mini 20 Each 5 06/25/19 23 Active DEXCOM G6 SENSOR deviceIndications :Type 2 diabetes mellitus with hyperglycemia, with long-term current use of insulin ([facility]) CHANGE EVERY 10 DAYS 3 Each 09/09/19 24 Active DEXCOM G6 TRANSMITTER deviceIndications :Type 2 diabetes mellitus with hyperglycemia, with long-term current use of insulin ([facility]) CHANGE DIRECTED EVERY 3 MONTHS 1 Each 3 10/02/19 24 Active insulin pump cart,automated,BT (OMNIPOD 5 G6 PODS, GEN 5,) cartridgeIndicati ons:Type 1 diabetes mellitus with hyperglycemia ([facility]) Use 1 Each as directed every 72 [...] original. Patient has given permission for the [facility] to verbally discuss the following information [...] hyperglycemia, with long-term current use of insulin ([facility]) 09/23/2014 Overview (01/20/2015): ICD10 Update Auto Replacement [...] help with adhesion and skin reactions Dicussed Calorie Gucci to help her with carb counting, consider [...] improve her carb counting and pump knowledge Encounters Date Type Department Care Team Description 03/09/2024 Refill [facility] Endocrinology - [facility] [address] [place] [address] Gely Walker NP Medications Refill 02/24/2024 Lab Requisition [facility] Pathology & Laboratory Medicine - Main [address] [address] Chago Parker MD Encounter for other general examination from Last 3 Months Surgical History Surgery Date Site/Laterality Comments CHOLECYSTECTOMY Medical History Medical History Date Comments Diabetes mellitus ([facility]) Social History Tobacco Use Types Packs/Day Years [...] 29.2 10/16/2021 0848 EDT Plan of Treatment Upcoming Encounters Date Type Department Care Team (Late st Contact Info) Description 07/23/2024 16:20 EDT Telemedicine [facility] Endocrinology [facility] [address] [place] [address] Trini Hilario, DO [address] [place] [address] Health Maintenance Due Date Last Done Comments Eye Exam 1981 Hepatitis B Vaccine (1 of 3 - 19+ 3-dose series) 02/28/2000 Foot Exam 09/24/2015 09/23/2014 Lipid Profile Screening (Cholesterol) 08/09/2016 08/10/2015, 01/16/2006 Microalbumin/Creatinine Ratio 08/09/2016 08/10/2015 Hemoglobin A1C (Ha1C) 12/21/2022 06/20/2022 , 10/16/2021, 10/16/2021, Additional history exists COVID-19 Vaccine (2023- 5 season) 2023 03/06/2021, 08/08/2020, 07/13/2020 Hepatitis C [...] EDT Type 2 diabetes mellitus with hyperglycemia ([facility]) ([facility]) URINE [id number] NE RATIO (ACR) Routine 08/10/2015 14:11 EDT Type 2 diabetes mellitus with hyperglycemia (CMS-HCC) ([facility]) from Last 3 Months or Most [...] explore management options, if applicable. 02/28/2024 9:20 [facility] Final Diagnosis A. ENDOCERVIX, CURETTAGE: -Fragments of benign endocervix. 02/28/2024 9:20 [facility] Diagnosis Comment Minimal squamous mucosa present for evaluation. Deeper sections of been evaluated. 02/28/2024 9:20 [facility] Attestation By the signature below, the attending physician certifies that they have 1) personally conducted a gross and/or microscopic examination of the described specimen(s), and/or personally interpreted the results of laboratory testing of the described specimen(s), and 2) personally rendered or confirmed the above diagnosis. 02/28/2024 9:20 [facility] at 0920 Clinical History Pap: LSIL, (-) HR HPV, 02/28/2024 9:20 [facility] Gross Description A. Received in formalin labelled with proper patient identification (initials K, L) and ECC is a 1.0 x 0.5 x 0.3 cm aggregate of predominantly mucinous soft tissue admixed with minute fragments of rossi tissue which is entirely submitted in A1. NARENDRA MARTINEZ(ASCP) 02/25/2024 9:39 02/28/2024 9:20 [facility] Performing Lab [facility] 02/28/2024 9:20 [facility] Scanned Images 02/28/2024 9:20 [facility] Tissue ENDOCERVICAL STRUCTURE / Unknown 02/24/2024 16:57 EST 02/25/2024 6:48 EST us Chago Parker MD PATHOLOGY ORDERABLES F inal Result [facility] [address] [place] [address] * (ABNORMAL) HEMOGLOBIN A1C (06/20/2022 15:32 EST) Hemoglobin A1c 6.7(H) <5.7 % 06/21/2022 11:22 [facility] Comment: Glycemic Status References: Normal: ??<5.7% Pre-Diabetes: ??5.7% - 6.4% Diagnostic of Diabetes: ??> or = 6.5% (if confirmed) Est Avg Glucose 146 mg/dL 11:22 EST [facility] Comment:The eAG represents t he A1c result expressed as average glucose in mg/dL. Blood VENOUS BLOOD / Unknown 06/20/2022 15:32 EST 06/20/2022 22:25 EST us Provider Outr Resulting Lab CHEMISTRY & BLOOD GA S ORDERABLES Final Result Performing Organization Address [facility] de Phone Number [facility] [address] [place] [address] * HEPATITIS C AB W REFLEX TO HCV RNA BY PCR (08/09/2020 9:46 EDT) Hep C Antibody Negative Negative 08/10/2020 9:48 EDT [facility] Blood VENOUS BLOOD / Unknown 08/09/2020 9:46 EDT 08/09/2020 21:13 EDT us Provider Outr Resulting Lab CHEMISTRY & BLOOD GA S ORDERABLES Final Result Performing Organization Address [facility] Co de Phone Number [facility] [address] [place] [address] * ALBUMIN, URINE (08/10/2015 14:11 EDT) Creatinine, Urn Niland 104.2 mg/dl 08/11/2015 9:20 EDT [facility] Ur Albumin mg/dl 0.8 mg/dl 08/11/2015 12:30 EDT [facility] Ur Alb ug/mg Crea 7.7 ug/mg Crea 08/11/2015 12:30 EDT [facility] Comment: Normal: <30 ug/mg creat High albuminuria: 30-300 ug/mg creat Very high albuminuria: >300 ug/mg creat Urine specimen (specimen) URINE / Unknown 08/10/2015 14:11 EDT 08/10/2015 15:22 EDT us Greta Galicia SHOW HOST OR HOSTESS CHEMISTRY & BLOOD GAS ORDER ALAN Final Result Performing Organization Address [facility]/State/ZIP Co de Phone Number [facility] [address] [place] [address] * LIPID PROFILE (INCLUDES CHOLESTEROL, TRIGLYCERIDES, HDL, LDL) (08/10/2015 14:11 EDT) Cholesterol 234 mg/dl 08/10/2015 16:24 [facility] Comment: Slight hemolysis Desirable:<200 Borderline High:200-239 High:>kd=844 Triglycerides 209 mg/dl 08/10/2015 16:24 [facility] Comment: Slight hemolysis Normal:<150 Borderline High:150-199 High:200-499 Very High:>gt=409 HDL 49 mg/dl 08/10/2015 16:24 [facility] Comment: Slight hemolysis Low:<40 Normal:40-60 Desirable: >60 LDL, Calculated 143 mg/dl 6 16:24 [facility] Comment: Optimal:<100 Near Optimal:100-129 Borderline High:130-159 High:160-189 Very High:>cu=550 Chol/HDL Ratio 4.8 08/10/2015 16:24 [facility] Fasting? Unknown 08/10/2015 14:11 [facility] Non HDL Cholesterol 185 mg/dl 08/10/2015 16:24 [facility] Comment: Slight hemolysis Desirable:<130 Borderline:130-159 High: 160-189 Very High: >va=970 Blood specimen (specimen) BLOOD SPECIMEN / Unknown 08/10/2015 14:11 EDT 08/10/2015 15:20 EDT us Greta Galicia NP CHEMISTRY & BLOOD GAS ORDER ALAN Final Result [facility] [address] [place] [address] from Last 3 Months or Most Recently Relevant to Health Maintenance Insurance [place]ICA[place] Care Teams Black Top Spreader Machine Operator Relationship Specialty Start Date End Date Che Sharpe PA [address] [place] [address] [place] [phone] PCP - General 10/16/21 Terry Hall MD [address] [place] [id number] 07/02/14
--- OUTSIDE RECORDS SUMMARY | 2024-05-15 12:58 | XMS_ITS | Encounter Summary ---
Author Organization [facility] [place] [address] Care Team Providers Care Healthcare Sales Representative Name Role Phone Leeanna Cohn MD Primary Care Provider [phone] Reason for Referral * Consultation (Routine) - Closed Specialty Diagnoses / Procedures Referred By Contlaura t Referred To Contact Gastroenterology Diagnoses Acute superficial gastritis without hemorrhage Rosy Tavarez APRN [facility] [place] [address] [facility] [address] [place] [address] Referral ID Status Reason Start Date Expiration Date V isits Requested Visits Authorized [id number] Closed Specialty Service Requested 11/20/2016 11/20/2017 1 1 Reason for Visit * Reason Comments GI Problem abdominal pain for m any years Encounter Details Date Type Department Care Team ([facility] st Contact Info) Description 11/20/2016 5:00 PM EDT Office [place] [phone] Rosy Tavarez APRN [facility] [address] Acute superficial gastritis without hemorrhage [...] from the original note were not included. [facility] Gastritis: Care Instructions Your Care Instructions Gastritis [...] Do not take any other medicine, including zkbx-rnf-gxrvkgy pain relievers, without talking to your doctor first. ?? If your doctor recommends xlkf-azj-qzxokgt medicine to reduce stomach acid, such as [...] more? Visit our health information library at [email or web address]. You can also view health information on [employer], your personal patient account. Log in or sign uptoday. Enter [id number] in the search box to learn more about Gastritis: Care Instructions. Current as of: November 29, 2015 Content Version: 11.3 ?? [id number] [employer]. Care instructions adapted under license by [facility]. If you have questions about a medical condition or this instruction, always ask your healthcare professional. [employer] disclaims any warranty or liability for your [...] TH Visit (TeleHealth) Hematology [place] [address] Pelon Wisdom MD [facility] DR HEMATOLOGY [place] [address] Scheduled Referrals Name Type Priority Associated Diagnoses Order Schedule Referral to Gastroenterology Outpatient Referral Routine Acute superficial gastritis without hemorrhage Ordered: 11/20/2016 documented as of this encounter Visit Diagnoses Diagnosis Acute superficial gastritis without hemorrhage documented in this encounter Care Teams Healthcare Sales Representative Relationship Specialty Start Date End Date Leeanna Cohn MD [address] [place] [address] PCP - General 03/14/10 02/13/17 documented as of this encounter
--- OUTSIDE RECORDS SUMMARY | 2024-05-15 12:58 | XMS_ITS | Encounter Summary ---
Author Organization [facility] [place] [address] [place] [address] Care Team Providers Care Consulting Technical Director Name Role Phone Leeanna Cohn MD Primary Care Provider [phone] Reason for Visit * Reason Onset Date Comments Medication Refill 01/22/2017 Encounter Details Date Type Department Care Team ([facility] Contact Info) Description 01/22/2017 Ref[place] [phone] Rosy Tavarez APRN [facility] [place] [address] Diabetes mellitus without complication Social History Tobacco [...] Encounters Date Type Department Care Team ([facility] Contact Info) Description 05/13/2025 4:00 PM EST TH Visit (TeleHealth) [place]ology [place] [address] Pelon Wisdom MD [facility] [address] [place] [address] documented as of this encounter Visit Diagnoses Diagnosis Diabetes mellitus without complication Type II or unspecified type diabetes mellitus without mention of complication, not stated as uncontrolled documented in this encounter Care Teams Consulting Technical Director Relationship Specialty Start Date End Date Leeanna Cohn MD [address] [place] [address] PCP - General 03/14/10 02/13/17 documented as of this encounter
--- OUTSIDE RECORDS SUMMARY | 2024-05-15 12:58 | XMS_ITS | Encounter Summary ---
Author Organization [facility] [place] [address] Care Team Providers Care Fabric Machine Operator Name Role Phone Leeanna Cohn MD Primary Care Provider [phone] Reason for Visit * Reason Onset Date Comments Medication Refill 12/31/2016 Encounter Details Date Type Department Care Team ([facility] Contact Info) Description 12/31/2016 Refill [place] [phone] Mariaa De La Rosa, RN Social History [...] Upcoming Encounters Date Type Department Care Team ([facility] Contact Info) Description 05/13/2025 4:00 PM EST TH Visit (TeleHealth) Hematology [place] [phone] Pelon Wisdom MD [facility] [address] [place] [address] documented as of this encounter Visit Diagnoses Not on filedocumented in this encounter Care Teams Fabric Machine Operator Relationship Specialty Start Date End Date Leeanna Cohn MD [address] [place] [address] PCP - General 03/14/10 02/13/17 documented as of this encounter
--- OUTSIDE RECORDS SUMMARY | 2024-05-15 12:58 | XMS_ITS | Encounter Summary ---
Author Organization [facility] [place] [address] Care Team Providers Care Bladder Cleaner Name Role Phone Leeanna Cohn MD Primary Care Provider [phone] Reason for Visit * Reason Onset Date Comments Follow-up 01/21/2017 Encounter Details Date Type Department Care Team ([facility] st Contact Info) Description 01/21/2017 Telephone [place] [phone] Radhika Tinajero Follow-up Social History Tobacco Use [...] go to ED for evaluation. Went to [facility], there blood glucose was in mid 200's. [...] TH Visit (TeleHealth) [place]ematology [place] [address] Pelon Wisdom MD [facility] [address] [place] [address] documented as of this encounter Visit Diagnoses Not on filedocumented in this encounter Care Teams Bladder Cleaner Relationship Specialty Start Date End Date Leeanna Cohn MD [address] [place] [address] PCP - General 03/14/10 02/13/17 documented as of this encounter
--- OUTSIDE RECORDS SUMMARY | 2024-05-15 12:58 | XMS_ITS | Encounter Summary ---
Author Organization [facility] [place] [address] Care Team Providers Care Photograph Mounter Name Role Phone Leeanna Cohn MD Primary Care Provider [phone] Encounter Details Date Type Department Care Team ([facility] Contact Info) Description 01/22/2017 Telephone [place] [address] Aline Clarke LICSW [facility] [place] [address] Social History Tobacco Use Types Packs/Day Years [...] in locating mental health supports in the [facility]. Spoke with Emma today and gave her information on [facility] - which she states she is aware of. Also gave her psychologytoday website. She has my contact information and knows to contact me if she needs any further information. ELISSA Dudley, SUPERVISOR BEATER ROOM Behavioral Health Clinician (BHC) Primary Care & Psychiatry Collaborative Care [facility] Direct # [phone] Clinic#: [phone] Pager [phone] documented in this encounter Plan of Treatment Upcoming Encounters Date Type Department Care Team (Late st Contact Info) Description 05/13/2025 4:00 PM EST TH Visit (TeleHealth) Hematology [place] [address] Pelon Wisdom MD [facility] [address] [place] [address] documented as of this encounter Visit Diagnoses Not on filedocumented in this encounter Care Teams Photograph Mounter Relationship Specialty Start Date End Date Leeanna Cohn MD [address] [place] [address] PCP - General 03/14/10 02/13/17 documented as of this encounter
--- OUTSIDE RECORDS SUMMARY | 2024-05-15 12:58 | XMS_ITS | Encounter Summary ---
Author Organization [facility] [place] [address] Care Team Providers Care Brim Molder Name Role Phone Leeanna Cohn MD Primary Care Provider [phone] Reason for Visit * Reason Onset Date Comments Medication Refill 01/21/2017 Encounter Details Date Type Department Care Team ([facility] Contact Info) Description 01/21/2017 Refill [place] [phone] Rosy Tavarez, STAMP PRESSER [facility] [place] [address] Social History Tobacco Use Types Packs/Day Years [...] Upcoming Encounters Date Type Department Care Team ([facility] Contact Info) Description 05/13/2025 4:00 PM EST TH Visit (TeleHealth) Hematology [place] [phone] Peoln Wisdom MD [facility] [address] [place] [address] documented as of this encounter Visit Diagnoses Not on filedocumented in this encounter Care Teams Brim Molder Relationship Specialty Start Date End Date Leeanna Cohn MD [address] [place] [address] PCP - General 03/14/10 02/13/17 documented as of this encounter
--- OUTSIDE RECORDS SUMMARY | 2024-05-15 12:58 | XMS_ITS | Encounter Summary ---
Author Organization [facility] [place] [address] Care Team Providers Care Cut Out Operator Name Role Phone Leeanna Cohn MD Primary Care Provider [phone] Reason for Visit * Reason Onset Date Comments Medication Refill 01/21/2017 Encounter Details Date Type Department Care Team ([facility] Contact Info) Description 01/21/2017 Ref[place] [phone] Rosy Tavarez, LITHOPONE MILL WORKER [facility] [place] [address] Social History Tobacco Use Types Packs/Day Years [...] Upcoming Encounters Date Type Department Care Team ([facility] Contact Info) Description 05/13/2025 4:00 PM EST TH Visit (TeleHealth) Hematology [place] [phone] Pelon Wisdom MD [facility] [address] [place] [address] documented as of this encounter Visit Diagnoses Not on filedocumented in this encounter Care Teams Cut Out Operator Relationship Specialty Start Date End Date Leeanna Cohn MD [address] [place] [address] PCP - General 03/14/10 02/13/17 documented as of this encounter
--- OUTSIDE RECORDS SUMMARY | 2024-05-15 12:58 | XMS_ITS | Encounter Summary ---
Author Organization [facility] [place] [address] Care Team Providers Care Women'S Apparel Salesperson Name Role Phone Leeanna Cohn MD Primary Care Provider [phone] Reason for Referral * Consultation (Routine) - Closed Specialty Diagnoses / Procedures Referred By Contlaura t Referred To Contact Internal Medicine Diagnoses Severe episode of recurrent major depressive disorder, without psychotic features Mary Lorenzo MD [facility] [place] [address] [address] Referral ID Status Reason Start Date Expiration Date V isits Requested Visits Authorized [id number] Closed Specialty Service Requested 01/14/2017 01/14/2018 1 1 Reason for Visit * Reason Comments Depression Encounter Details Date Type Department Care Team ([facility] Contact Info) Description 01/14/2017 3:30 PM EDT Office [place] [phone] Mary Lorenzo MD Need for prophylactic vaccination and inoculation against influenza; Need for prophylactic vaccination with combined wsufljgkhz-nwobhvq-xd rtussis (DTP) vaccine; Severe episode of recurrent [...] this area with her 2 daughters from [place], [place], a couple months ago to live [...] out surveys and referred her to therapist. Etoile like therapist talked more than she did [...] often. 13 yo daughter was previously at [facility] and at [facility] prior to turning 12. Her 11 yo [...] of mirtazapine 15 mg nightly. Referral to [facility] psychiatry. Pursue CBT, resources sheet provided. Will [...] including in her children. Plan: Referral to [facility] psychiatry for additional guidance on medication options Connect to [facility] to identify a counselor Schedule follow up with PCP documented in this encounter Plan of Treatment Upcoming Encounters Date Type Department Care Team (Late st Contact Info) Description 05/13/2025 4:00 PM EST TH Visit (TeleHealth) [place] [address] Pelon Wisdom MD [facility] DR [place] [address] Scheduled Referrals Name Type Priority Associated Diagnoses Order Schedule Referral to Collaborative Care Psychiatrist (Primary Care Only) Outpatient Referral Routine Severe episode of recurrent major depressive disorder, without psychotic features Ordered: 01/14/2017 documented as of this encounter Visit Diagnoses Diagnosis Need for prophylactic vaccination and inoculation against influenza Need for prophylactic vaccination with combined zwoxizkdot-tvrljrf-kjehkszuf (DTP) vaccine Severe episode of recurrent major depressive disorder, without psychotic features Anxiety Anxiety state, unspecified documented in this encounter Care Teams Women'S Apparel Salesperson Relationship Specialty Start Date End Date Leeanna Cohn MD [address] [place] [address] PCP - General 03/14/10 02/13/17 documented as of this encounter
--- OUTSIDE RECORDS SUMMARY | 2024-05-15 12:58 | XMS_ITS | Encounter Summary ---
Author Organization [facility] [place] [address] Care Team Providers Care Way Inspector Name Role Phone Leeanna Cohn MD Primary Care Provider [phone] Encounter Details Date Type Department Care Team (Late st Contact Info) Description 11/13/2016 Telephone [place] [phone] Ольга Carter LPN Social History Tobacco Use [...] Visit (TeleHealth) Hematology [place] [address] Pelon Wisdom MD [facility] HEMATOLOGY [place] [address] documented as of this encounter Visit Diagnoses Not on filedocumented in this encounter Care Teams Way Inspector Relationship Specialty Start Date End Date Leeanna Cohn MD [address] [place] [address] PCP - General 03/14/10 02/13/17 documented as of this encounter
--- OUTSIDE RECORDS SUMMARY | 2024-05-15 12:58 | XMS_ITS | Encounter Summary ---
Author Organization [facility] [place] [address] Care Team Providers Care Stock Plan Administrator Name Role Phone Leeanna Cohn MD Primary Care Provider [phone] Reason for Visit * Reason Onset Date Comments Results 11/09/2016 Encounter Details Date Type Department Care Team ([facility] st Contact Info) Description 11/09/2016 Telephone [place] [address] Clara Nguyen MD Results Social History Tobacco Use Types Packs/Day [...] TH Visit (TeleHealth) Hematology [place] [address] Pelon Wisdom MD [facility] [place]OLOG[place] [address] documented as of this encounter Visit Diagnoses Not on filedocumented in this encounter Care Teams Stock Plan Administrator Relationship Specialty Start Date End Date Leeanna Cohn MD [address] [place] [address] PCP - General 03/14/10 02/13/17 documented as of this encounter
--- OUTSIDE RECORDS SUMMARY | 2024-05-15 12:58 | XMS_ITS | Encounter Summary ---
Author Organization [facility] [place] [address] Care Team Providers Care Assisted Living Nursing Director Name Role Phone Leeanna Cohn MD Primary Care Provider [phone] Reason for Referral * Consultation (Routine) - Closed Specialty Diagnoses / Procedures Referred By Luana landon Referred To Contact Neurology Diagnoses Vertigo Rosy Tavarez APRN [facility] [place] [address] [facility] [address] [place] [address] Referral ID Status Reason Start Date Expiration Date V isits Requested Visits Authorized [id number] Closed Specialty Service Requested 11/15/2016 11/15/2017 1 [...] PM EDT Office [place] [address] Rosy Tavarez APRN [facility] [address] [place] [address] Seasonal allergic rhinitis due to [...] from the original note were not included. [facility] Benign Paroxysmal Positional Vertigo (BPPV): Care Instructions [...] more? Visit our health information library at [email or web address]. You can also view health information on [address], your personal patient account. Log in or sign uptoday. Enter P372 in the search box to learn more about Benign Paroxysmal Positional Vertigo (BPPV): CareInstructions. Current as of: February 08, 2016 Content Version: 11.3 ?? [id number] [email or web address]. Care instructions adapted under license by [facility]. If you have questions about a medical condition or this instruction, always ask your healthcare professional. [employer] disclaims any warranty or liability for your use of this information. [facility]: [...] more? Visit our health information library at [email or web address]. You can also view health information on [address], your personal patient account. Log in or sign uptoday. Enter P834 in the search box to learn more about [facility] Vertigo: Exercises. Current as of: June 27, 2016 Content Version: 11.3 ?? [id number] [employer]. Care instructions adapted under license by [facility]. If you have questions about a medical condition or this instruction, always ask your healthcare professional. [employer] disclaims any warranty or liability for your use of this information. documented in this encounter Progress Notes * Rosy Tavarez APRN - 11/15/2016 3:20 PM EDT Subjective: Patient ID: Emma Min is a 36 y.o. female. [facility] Emma is here to establish care. She moved from [place] and moved in with her boyfriend. She has two daughters age 11 and 13 and they all get along well. She is not working currently, previouslyin [employer]. She had previously been healthy until diagnosis [...] at the time as she went to [facility] ( also do not have records). She [...] TH Visit (TeleHealth) Hematology and Oncology at [facility] [place] [address] Pelon Wisdom MD [facility] [place] [address] Scheduled Referrals Name Type Priority Associated Diagnoses [...] 3:51 PM EDT) Neutrophil % 64.6 % [facility] Neutrophil Absolute 5.78 1.70 - 6.10 x10(3)/[facility] Lymph % 25.0 % [facility] Lymphocytes Abs 2.2 0.9 - 3.2 x10(3)/[facility] Monocyte % 6.8 % [facility] Monocyte Abs 0.6 0.3 - 0.9 x10(3)/[facility] Eos % 3.0 % [facility] Eosinophils Abs 0.3 0.0 - 0.4 x10(3)/[facility] Basophil % 0.4 % [facility] Baso Absolute 0.0 0.0 - 0.1 x10(3)/[facility] Immature Gran % 0.20 % [facility] Comment: Immature granulocytes(IG's)percentage and absolute count will include metamyelocytes, myelocytes, and promyelocytes. Blood smears from CBCs yielding IG's will be scanned manually for concordance. If this scan disagrees with the automated IG or if promyelocytes are noted, a manual differential will be performed. Immature Gran Absolute 0.02 0.00 - 0.04 x10(3)/mcL [facility] Blood specimen (specimen) 11/15/2016 3:51 PM EDT 11/15/2016 3:55 PM EDT Narrative Resulting Agency Comment Spec In Lab Rosy Tavarez APRN HEMATOLOGY ORDERABLE S [facility] [place] [address] * (ABNORMAL) Hemogram (11/15/2016 3:51 PM EDT) White Blood Cell 9.0 4.0 - 9.5 x10(3)/mc L [facility] Red Blood Cell 3.93(L) 4.00 - 5.21 x10(6)/mc L [facility] Hemoglobin 13.7 11.7 - 15.5 gm/dL [facility] Hematocrit 38.1 35.7 - 45.8 % [facility] Mean Cell Volume 96.9(H) 82.6 - 94.4 fL [facility] Mean Cell Hemoglobin 34.9(H) 27.1 - 32.0 pg [facility] Mean Cell Hemoglobin Concentration 36.0(H) 31.7 - 35.0 gm/dL [facility] Platelet 287 145 - 357 x10(3)/mc L [facility] RDW Standard Deviation 40.1 37.0 - 46.0 fL [facility] RDW coefficient of variation 11.2(L) 11.5 - 14.1 % [facility] Mean Platelet Volume 10.8 7.6 - 12.9 fL [facility] NRBC% auto 0.0 % [facility] NRBC Absolute 0.000 0.000 - 0.000 x10(3)/mc L [facility] Blood specimen (specimen) 11/15/2016 3:51 PM EDT 11/15/2016 3:55 PM EDT Narrative Resulting Agency Comment Spec In Lab Rosy Tavarez APRN HEMATOLOGY ORDERABLE S Performing Organization Address [facility]/[employer] de Phone Number [facility] [place] [address] * TSH (11/15/2016 3:51 PM EDT) [facility] Thyroid Stimulating Hormone 1.15 0.27 - 4.20 mlU/ML [facility] Blood specimen (specimen) 11/15/2016 3:51 PM EDT 11/15/2016 3:55 PM EDT Narrative Resulting Agency Comment Spec In Lab Rosy Tavarez APRN CHEMISTRY ORDERABLES Performing Organization Address [facility] [address]/[facility] de Phone Number [facility] [place] [address] * Basic Metabolic Panel (non-fasting) (11/15/2016 3:51 PM EDT) [facility] Glucose 163 65 - 199 mg/dL [facility] Comment:Diabetes: >=200 mg/d L plus symptoms Blood Urea Nitrogen 15 8 - 18 mg/dL [facility] Creatinine 1.00 0.70 - 1.20 mg/dL [facility] Comment: Please note that the pediatric reference intervals supplied above were not validated at [facility]. Results from pediatric patients should be interpreted in conjunction to the patient's age, height and muscle mass. Sodium 139 135 - 145 mmol/L [facility] Potassium 3.8 3.5 - 5.0 mmol/L [facility] Comment: Please note: ??Patients with WBC >100,000 may have falsely elevated Potassium levels. ??For accurate Potassium quantification in these patients send serum separator tube (gold top) for subsequent determinations. ??Contact the Clinical Chemistry Laboratory if there are any questions. Chloride 98 98 - 107 mmol/L [facility] Carbon Dioxide 26 22 - 31 mmol/L [facility] Anion Gap 15 5 - 15 mmol/L [facility] Calcium 9.6 8.5 - 10.5 mg/dL [facility] Est Glomerular Filtration Rate >60 >=60 [facility] Comment: This estimated GFR (eGFR) value [...] the following links into your internet browser. [email or web address] Blood specimen (specimen) 11/15/2016 3:51 PM EDT 11/15/2016 3:55 PM EDT Narrative Resulting Agency Comment Spec In Lab Rosy Tavarez APRN CHEMISTRY ORDERABLES Performing Organization Address City/State/[employer] de Phone Number [facility] [place] [address] documented in this encounter Visit Diagnoses Diagnosis Seasonal allergic rhinitis due to pollen Migraine without aura and with status migrainosus, not intractable Migraine without aura, without mention of intractable migraine with status migrainosus Impacted cerumen of right ear Impacted cerumen Vertigo Dizziness and giddiness documented in this encounter Care Teams Assisted Living Nursing Director Relationship Specialty Start Date End Date Leeanna Cohn MD [address] [place] [address] PCP - General 03/14/10 02/13/17 documented as of this encounter
--- OUTSIDE RECORDS SUMMARY | 2024-05-15 12:58 | XMS_ITS | Encounter Summary ---
Author Organization [facility] Address [facility] [place] [address] Care Team Providers Care Sheep Farm Manager Name Role Phone Leeanna Cohn MD Primary Care Provider [phone] Reason for Visit * Reason Onset Date Comments Triage 01/16/2017 muscle stiffness Encounter Details Date Type Department Care Team (Late st Contact Info) Description 01/16/2017 [place] [address] Cindy Quintanilla RN Triage (muscle stiffness) Social [...] TH Visit (TeleHealth) [place]ematology [place] [address] Pelon Wisdom MD [facility] [address] [place] [address] documented as of this encounter Visit Diagnoses Not on filedocumented in this encounter Care Teams Sheep Farm Manager Relationship Specialty Start Date End Date Leeanna Cohn MD [address] [place] [address] PCP - General 03/14/10 02/13/17 documented as of this encounter
--- OUTSIDE RECORDS SUMMARY | 2024-05-15 12:58 | XMS_ITS | Encounter Summary ---
Author Organization [facility] [place] [address] Care Team Providers Care Gelatin Plant Supervisor Name Role Phone Leeanna Cohn MD Primary Care Provider [phone] Reason for Visit * Reason Onset Date Comments Medication Refill 11/07/2016 Encounter Details Date Type Department Care Team (Late st Contact Info) Description 11/07/2016 Ref[place] [address] Clara Nguyen MD Social History Tobacco Use Types Packs/Day [...] TH Visit (TeleHealth) Hematology [place] [address] Pelon Wisdom MD [facility] DR HEMATOLOGY [place] [address] documented as of this encounter Visit Diagnoses Not on filedocumented in this encounter Care Teams Gelatin Plant Supervisor Relationship Specialty Start Date End Date Leeanna Cohn MD [address] [place] [address] PCP - General 03/14/10 02/13/17 documented as of this encounter
--- OUTSIDE RECORDS SUMMARY | 2024-05-15 12:58 | XMS_ITS | Encounter Summary ---
Author Organization [facility] [place] [address] Care Team Providers Care Dietitian Teaching Name Role Phone Leeanna Cohn MD Primary Care Provider [phone] Reason for Visit * Reason Onset Date Comments Medication Refill 12/28/2016 Encounter Details Date Type Department Care Team ([facility] Contact Info) Description 12/28/2016 Ref[place] [address] Clara Nguyen MD Social History Tobacco Use [...] Upcoming Encounters Date Type Department Care Team ([facility] Contact Info) Description 05/13/2025 4:00 PM EST TH Visit (TeleHealth) Hematology [place] [address] Pelon Wisdom MD [facility] DR [place]EMATOLOGY [place] [address] documented as of this encounter Visit Diagnoses Not on filedocumented in this encounter Care Teams Dietitian Teaching Relationship Specialty Start Date End Date Leeanna Cohn MD [address] [place] [address] PCP - General 03/14/10 02/13/17 documented as of this encounter
--- OUTSIDE RECORDS SUMMARY | 2024-05-15 12:58 | XMS_ITS | Encounter Summary ---
[place] [address] Care Team Providers Care Psychiatric Specialist Name Role Phone Leeanna Cohn MD Primary Care Provider [phone] Encounter Details Date Type Department Care Team (Late st Contact Info) Description 11/07/2016 Telephone [place] [address] Ольга Carter LPN Social History Tobacco Use [...] 2:41 PM EDT Call from Ned at [facility]. Rx was received for the following. [...] TH Visit (TeleHealth) Hematology [place] [address] Pelon Wisdom MD [facility] [place] [address] documented as of this encounter Visit Diagnoses Not on filedocumented in this encounter Care Teams Psychiatric Specialist Relationship Specialty Start Date End Date Cohn, Leeanna, MD [address] [place] [address] PCP - General 03/14/10 02/13/17 documented as of this encounter
--- OUTSIDE RECORDS SUMMARY | 2024-05-15 12:58 | XMS_ITS | Encounter Summary ---
Author Organization [facility] Address [address] [place] [address] Care Team Providers Care Diplomatic Interpreter/Translator Name Role Phone Terry Hall MD Unavailable Che Sharpe Primary Care Provider + Reason for Visit * Reason Onset Date Comments Blood Sugar Problem 01/31/2024 Encounter Details Date Type Department Care Team (Late st Contact Info) Description 01/31/2024 Telephone [facility] Endocrinology - [facility] [address] [place] [address] Gely Walker, MIGUEL [address] [facility] [address] [place] [address] Blood Sugar Problem Social History [...] Telephone Encounter - Camila Sewell CDE - 01/31/2024 0954 EDT Glucose on the dexcom is currently 202. Steroid: Prednisone 20mg a day for 2 more days for URI, with antibiotic. Ketones moderate now, in the emergency room. Has not been seen yet. Set temp basal for 30% for 12hours when you take your prednisone each night. You will have to leave automated to use the temp basal. When you are high take a correction from the pump every 2 hours. Drink lots of water. If 30% increase helps but is not enough try 40% increase. Make sure the dexcom alarms are turned on and the phone is nearby so you will get alerts for high and low while sleeping. * Telephone Encounter - Karen Agee RN - 01/31/2024 0839 EDT Routing HP to [facility] [place] for assistance. Karen Agee RN * Telephone Encounter - Juan Bradley - 01/31/2024 0807 EDT Endocrinology Incoming Call Reason for call: High blood sugar Active Symptoms/Disease Management What is your most recent sugar value: 297 When was the blood sugar reading taken: now Are you ? no Concerning factors: The patient is currently on prednisone and is not sure how to adjust her pump. She spoke to the loss control engineer provider last night who advised her to manually inject humalog but she was not comfortable withthis. The patient's blood sugars were in the 300s last night. The patient is currently in the ED but they do not know how to adjust a pump. Next Appointment: Visit date not found Last Office Visit: 10/16/2021 Breanna Flores MD Last Telehealth Encounter: 06/26/2023 Gely Walker, CDL BULK DRIVER documented in this encounter Plan of Treatment Upcoming Encounters Date Type Department Care Team (Late st Contact Info) Description 07/23/2024 16:20 EDT Telemedicine [facility] Endocrinology - [address] [address] Trini Hilario DO [address] [place] [address] documented as of this encounter Visit Diagnoses Not on filedocumented in this encounter Care Teams Diplomatic Interpreter/Translator Relationship Specialty Start Date End Date Che Sharpe PA [address] [place] [address] [place] [address] PCP - General 10/16/21 Terry Hall MD [address] [place] [address] 07/02/14 documented as of this encounter
--- OUTSIDE RECORDS SUMMARY | 2024-05-15 12:58 | XMS_ITS | Encounter Summary ---
Author Organization [facility] [place] [address] Care Team Providers Care Single Wire Saw Operator Name Role Phone Leeanna Cohn MD Primary Care Provider [phone] Encounter Details Date Type Department Care Team ([facility] Contact Info) Description 12/31/2016 Telephone [place] [address] Mariaa De La Rosa, RN [...] TH Visit (TeleHealth) [place] [address] Pelon Wisdom MD [facility] [place] [address] documented as of this encounter Visit Diagnoses Not on filedocumented in this encounter Care Teams Single Wire Saw Operator Relationship Specialty Start Date End Date Leeanna Cohn MD [address] [place] [address] PCP - General 03/14/10 02/13/17 documented as of this encounter
--- OUTSIDE RECORDS SUMMARY | 2024-05-15 12:58 | XMS_ITS | Encounter Summary ---
Author Organization [facility] [place] [address] Care Team Providers Care Lead Simulation Modeling Engineer Name Role Phone Leeanna Cohn MD Primary Care Provider [phone] Reason for Visit * Reason Onset Date Comments Prior Authorization 12/31/2016 Encounter Details Date Type Department Care Team ([facility] st Contact Info) Description 12/31/2016 Telephone [place] [address] Jackie Monahan Prior Authorization Social History Tobacco [...] for request: TYPE II DM Health plan: [place]) Authorizing corporate sales representative name: EBEN Faxed to health plan on: 12/31/16 Health plan decision: DENIED Quantity approved: PREFERRED OPTIONS INCLUDE FREESTYLE, FREESTYLE LITE, FREESTYLE INSULINX, ONE TOUCH ULTRA, ONE TOUCH VERIO, AND PRECISION Authorization number: [id number] Start date: End date: documented in this encounter Plan of Treatment Upcoming Encounters Date Type Department Care Team (Late st Contact Info) Description 05/13/2025 4:00 PM EST TH Visit (TeleHealth) Hematology [place] [address] Pelon Wisdom MD [facility] [place] [address] documented as of this encounter Visit Diagnoses Not on filedocumented in this encounter Care Teams Lead Simulation Modeling Engineer Relationship Specialty Start Date End Date Leeanna Cohn MD [address] [place] [address] PCP - General 03/14/10 02/13/17 documented as of this encounter
--- OUTSIDE RECORDS SUMMARY | 2024-05-15 12:58 | XMS_ITS | Encounter Summary ---
Author Organization [facility] Address [address] [place] [address] Care Team Providers Care Field Worker Name Role Phone Terry Hall MD Unavailable Che Sharpe Primary Care Provider + Reason for Visit * Reason Comments Medications Refill Encounter Details Date Type Department Care Team (Late st Contact Info) Description 01/28/2024 Refill [facility] Endocrinology - [facility] [address] [place] [address] Gely Walker, MIGUEL [address] [facility] [address] [place] [address] Medications Refill Social History Tobacco [...] Refills Last Filled Start Date End Date semaglutide (OZEMPIC) 2 mg/dose (8 mg/3 mL) pen injector INJECT 2MG UNDER THE SKIN WEEKLY 9 mL 01/29/2024 insulin lispro (HUMALOG U-100 INSULIN) 100 unit/mL vial INJECT UP TO 75 UNITS UNDER THE SKIN VIA PUMP 30 mL 01/29/2024 03/10/2024 documented in this encounter Miscellaneous Notes * Telephone Encounter - Trini Pollock - 02/05/2024 1158 EDT Called and spoke with pt. Scheduled * Telephone Encounter - Mikayla Schulte RN - 01/29/2024 1402 EDT Images from the original note were not included. insulin lispro (HUMALOG U-100 INSULIN) 100 unit/mL vial [[id number]] Order Details Dose, Route, Frequency: As Directed Dispense Quantity: 30 mL Refills: 11 Sig: INJECT UP TO 75 UNITS SUBCUTANEOUSLY VIA INSULIN PUMP DAILY Start Date: 12/30/22 End Date: -- Written Date: 12/30/22 semaglutide (OZEMPIC) 2 mg/dose (8 mg/3 mL) pen injector [[id number]] Order Details Dose: 2 mg Route: subcutaneous Frequency: EVERY 7 DAYS @ 8:00 AM Dispense Quantity: 9 mL Refills: 3 Sig: Inject 2 mg into the skin every 7 days. Start Date: 12/30/22 End Date: -- Written Date: 12/30/22 Next visit- none Last visit- 06/26/23 Approved rx- routed to [facility] to schedule per last ov note- Return in about 6 months (around 12/27/2023). documented in this encounter Plan of Treatment Upcoming Encounters Date Type Department Care Team (Late st Contact Info) Description 07/23/2024 16:20 EDT Telemedicine [facility] Endocrinology - [facility] [address] [place] [address] Trini Hilario DO [address] [place] [address] documented as of this encounter Visit Diagnoses Not on filedocumented in this encounter Discontinued Medications Medication Sig Discontinue Reason Start Date End Da te semaglutide (OZEMPIC) 2 mg/dose (8 mg/3 mL) pen injector Inject 2 mg into the skin every 7 days. 12/30/2022 01/29/2024 insulin lispro (HUMALOG U-100 INSULIN) 100 unit/mL vial INJECT UP TO 75 UNITS SUBCUTANEOUSLY VIA INSULIN PUMP DAILY 12/30/2022 01/29/2024 documented as of this encounter Care Teams Field Worker Relationship Specialty Start Date End Date Che Sharpe PA [address] [place] [address] [place] [address] PCP - General 10/16/21 Terry Hall MD [address] [place] [address] 07/02/14 documented as of this encounter
--- OUTSIDE RECORDS SUMMARY | 2024-05-15 12:58 | XMS_ITS | Encounter Summary ---
Author Organization [facility] [place] [address] Care Team Providers Care Internal Medicine Doctor Name Role Phone Leeanna Cohn MD Primary Care Provider [phone] Reason for Visit * Reason Onset Date Comments Medication Refill 01/01/2017 Encounter Details Date Type Department Care Team ([facility] Contact Info) Description 01/01/2017 Refill [place] [phone] Mariaa De La Rosa, RN Social History [...] Upcoming Encounters Date Type Department Care Team ([facility] Contact Info) Description 05/13/2025 4:00 PM EST TH Visit (TeleHealth) Hematology [place] [phone] Pelon Wisdom MD [facility] DR HEMATOLOGY [place] [address] documented as of this encounter Visit Diagnoses Not on filedocumented in this encounter Care Teams Internal Medicine Doctor Relationship Specialty Start Date End Date Leeanna Cohn MD [address] [place] [address] PCP - General 03/14/10 02/13/17 documented as of this encounter
--- OUTSIDE RECORDS SUMMARY | 2024-05-15 12:58 | XMS_ITS | Encounter Summary ---
Author Organization [facility] [place] [address] Care Team Providers Care Manager Women Name Role Phone Leeanna Cohn MD Primary Care Provider [phone] Reason for Visit * Reason Comments Muscle Pain since Saturday Encounter Details Date Type Department Care Team (Late st Contact Info) Description 01/17/2017 1:00 PM EDT Office [place] [address] Rosy Tavarez, LAY OUT WORKER [facility] [place] [address] Cellulitis of arm, right; Herpes simplex infection [...] Patient Instructions * Patient Instructions* Rosy Tavarez, LAY OUT WORKER - 01/17/2017 1:27 PM EDT Images from the original note were not included. [facility] Cellulitis: Care Instructions Your Care Instructions [...] your doctor if you can take an gjfq-ult-uodtfep medicine. To prevent cellulitis in the future [...] more? Visit our health information library at [email or web address]. You can also view health information on [employer], your personal patient account. Log in or sign uptoday. Enter X309 in the search box to learn more about Cellulitis: Care Instructions. Current as of: February 02, 2016 Content Version: 11.3 ?? [id number] [employer]. Care instructions adapted under license by [facility]. If you have questions about a medical condition or this instruction, always ask your healthcare professional. [employer] disclaims any warranty or liability for your [...] TH Visit (TeleHealth) [place]emat[place] [address] Pelon Wisdom MD [facility] [address] [place] [address] documented as of this encounter Visit Diagnoses Diagnosis Cellulitis of arm, right Cellulitis and abscess of upper arm and forearm Herpes simplex infection of genitourinary system documented in this encounter Care Teams Manager Women Relationship Specialty Start Date End Date Leeanna Cohn MD [address] [place] [address] PCP - General 03/14/10 02/13/17 documented as of this encounter
--- OUTSIDE RECORDS SUMMARY | 2024-05-15 12:58 | XMS_ITS | Encounter Summary ---
Author Organization [facility] Address [address] [place] [address] Care Team Providers Care Director Of Product Design Name Role Phone Terry Hall MD Unavailable Che Sharpe Primary Care Provider + Reason for Visit * Reason Onset Date Comments Appointment Related 06/27/2023 Encounter Details Date Type Department Care Team (Late st Contact Info) Description 06/27/[address] [facility] Endocrinology - [facility] [address] [place] [address] Gely Qureshi NP [address] [facility] [address] [place] [address] Appointment Related Social History Tobacco [...] Contact Info) Description 07/23/2024 16:[address] [facility] Endocrinology - [address] [address] Trini Hilario, DO [address] [place] [phone] documented as of this encounter Visit Diagnoses Not on filedocumented in this encounter Care Teams Director Of Product Design Relationship Specialty Start Date End Date Che Sharpe PA [address] [place] [address] [place] [phone] PCP - General 10/16/21 Terry Hall MD [address] [place] [id number] 07/02/14 documented as of this encounter
--- OUTSIDE RECORDS SUMMARY | 2024-05-15 12:58 | XMS_ITS | Encounter Summary ---
Author Organization [facility] [address] [place] [address] Care Team Providers Care Tube Handler Name Role Phone Leeanna Cohn MD Primary Care Provider [phone] Encounter Details Date Type Department Care Team (Late st Contact Info) Description 11/07/2016 1:30 PM EDT Office [place] [phone] Giacomo Obrien [facility] [place] [address] Clara Nguyen MD Type 2 diabetes mellitus without complication, with [...] IBS. She was previously seeing Endo at [facility]. 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 Giacomo Obrien DO, MS General Superintendentultrasonic hand solderer Section of Endocrinology [facility] documented in this encounter Plan of Treatment Upcoming Encounters Date Type Department Care Team (Late st Contact Info) Description 05/13/2025 4:00 PM EST TH Visit (TeleHealth) [facility] [place] [address] Pelon Wisdom MD [facility] [address] [place] [address] documented as of this encounter Procedures Procedure [...] Hemoglobin A1c 7.2(H) 4.3 - 5.6 % [facility] Comment: Reference Range: 4.3 - [...] Mellitus, Diabetes Care 2013; 36: Suppl. 1, L96-18 Estimated Average Glucose 160 mg/dL [facility] Comment: eAG equivalents for HbA1c [...] into estimated average glucose values. ??Diabetes Care 2008:31(8):9639-9536. Blood specimen (specimen) 11/07/2016 3:04 PM EDT 11/07/2016 3:12 PM EDT Narrative Resulting Agency Comment Spec In Lab Giacomo Obrien DO CHEMISTRY ORDERABLES Performing Organization Address [facility] de Phone Number [facility] [place] [address] * Glucose, random (11/07/2016 3:04 PM EDT) Glucose 185 65 - 199 mg/dL [facility] Comment:Diabetes: >=200 mg/d L plus symptoms Blood specimen (specimen) 11/07/2016 3:04 PM EDT 11/07/2016 3:12 PM EDT Narrative Resulting Agency Comment Spec In Lab Giacomo Obrien DO CHEMISTRY ORDERABLES Performing Organization Address [facility] de Phone Number [facility] [place] [address] * C-peptide (11/07/2016 3:04 PM EDT) C-Peptide 5.2 0.8 - 5.2 ng/mL [facility] Comment: Please note: as of 08/22/2016, C-Peptide testing is being performed in the [facility] using a new test method with a new reference interval. Blood specimen (specimen) 11/07/2016 3:04 PM EDT 11/07/2016 3:12 PM EDT Narrative Resulting Agency Comment Spec In Lab Giacomo Obrien DO CHEMISTRY ORDERABLES Performing Organization Address [facility] Co de Phone Number [facility] [place] [address] * U Albumin/Cre Ratio (11/07/2016 2:57 PM EDT) Albumin / Creatinin Ratio, Urine 4 0 - 29 mcg/mg Cr [facility] Comment: Reference Ranges: <30 mcg/mg: [...] 2, 357? 362 Albumin, Urine 9.9 mg/L [facility] Creatinine, Urine 224 mg/dL [facility] Urine specimen (specimen) 11/07/2016 2:57 PM EDT 11/07/2016 3:07 PM EDT Narrative Resulting Agency Comment Spec In Lab Giacomo Obrien [place] [address] documented in this encounter Visit Diagnoses Diagnosis Type 2 diabetes mellitus without complication, with long-term current use of insulin documented in this encounter Care Teams Tube Handler Relationship Specialty Start Date End Date Leeanna Cohn MD [address] [place] [address] PCP - General 03/14/10 02/13/17 documented as of this encounter
--- OUTSIDE RECORDS SUMMARY | 2024-05-15 12:58 | XMS_ITS | Encounter Summary ---
Author Organization [facility] Address [address] [place] [address] Care Team Providers Care Leather Scraper Name Role Phone Terry Hall MD Unavailable Che Sharpe Primary Care Provider + Reason for Visit * Reason Onset Date Comments Blood Sugar Problem 01/06/2024 Encounter Details Date Type Department Care Team (Late st Contact Info) Description 01/06/2024 Telephone [facility] Endocrinology - [facility] [address] [place] [address] Gely Walker, MIGUEL [address] [facility] [address] [place] [address] Blood Sugar Problem Social History [...] Telephone Encounter - Riddhi Charles RD - 01/06/2024 1157 EDT Reviewed omnipod site options with pt and discussed the importance of rotating. Provided pt with a medical note saying we spoke today regarding diabetes self management. Sent request to PSS to schedule pt with medical provider as she hasn't been seen in over a year. * Telephone Encounter - Karen Agee RN - 01/06/2024 1111 EDT SW type 2 diabetic patient on the Omnipod insulin pod using Dexcom G6. Patient did a pod site change yesterday and since then her blood sugars have been unstable. Patient states she has been having a hard time finding insertion sites for pods and would like to speak to a CDE To trouble shoot. Current blood sugar is 262. Patient has NO contributing factors for unstable blood sugars. Routing to CDE pool to help patient strategize pod sites. Karen Agee RN * Telephone Encounter - Alcides Mead - 01/06/2024 1056 EDT Endocrinology Incoming Call Reason for call: Sugar levels Active Symptoms/Disease Management Reported active symptoms: Dexcom readings at 1:00am was 408 and then dropped to the 50's around 3amJust now her reading was 262 When did you start experiencing these symptoms? Last night Are they constant or intermittent? Constant Have you ever experienced these symptoms before? unknown Next Appointment: Visit date not found Last Office Visit: 10/16/2021 Breanna Flores MD Last Telehealth Encounter: 06/26/2023 Gely Walker, BIOFUELS MANAGER documented in this encounter Plan of Treatment Upcoming Encounters Date Type Department Care Team (Late st Contact Info) Description 07/23/2024 16:20 EDT Telemedicine [facility] Endocrinology - [address] [address] Trini Hilario, DO [address] [place] [phone] documented as of this encounter Visit Diagnoses Not on filedocumented in this encounter Care Teams Leather Scraper Relationship Specialty Start Date End Date Che Sharpe PA [address] [place] [phone] PCP - General 10/16/21 Terry Hall MD [address] [place] [phone] 07/02/14 documented as of this encounter
--- OUTSIDE RECORDS SUMMARY | 2024-05-15 12:58 | XMS_ITS | Encounter Summary ---
Author Organization [facility] Address [facility] [place] [address] Care Team Providers Care Multimedia Producer Name Role Phone Che Sharpe Primary Care Provider + Reason for Visit * Reason Onset Date Comments Medication Problem 01/21/2017 Encounter Details Date Type Department Care Team (Late st Contact Info) Description 01/21/2017 [place] [phone] Patricia Butler Social History Tobacco Use Types [...] EDT Message: Patient is calling stating that [facility] in [place] is having a hard time getting her test strips for her glucose meter. She would like a new prescription sent to [facility] if possible. She has not tested her blood sugar since Saturday night. Please call. Caller and relationship (if other than patient-full name): Self Best time to call back: any Ok to leave a message: [yes] Ok to send - message: [no] Offered Appointment: no MA/Nurse contacted via: Message: yes Call: no Pager: no documented in this encounter Plan of Treatment Upcoming Encounters Date Type Department Care Team (Late st Contact Info) Description 05/13/2025 4:00 PM EST TH Visit (TeleHealth) [place] [address] Pelon Wisdom MD [facility] [address] [place] [address] documented as of this encounter Visit Diagnoses Not on filedocumented in this encounter Care Teams Multimedia Producer Relationship Specialty Start Date End Date Che Sharpe PA [address] [place] [address] [place] [address] PCP - General Internal Medicine 04/20/20 documented as of this encounter
--- OUTSIDE RECORDS SUMMARY | 2024-05-15 12:58 | XMS_ITS | Encounter Summary ---
[place] [address] Care Team Providers Care Signal Constructor Name Role Phone Leeanna Cohn MD Primary Care Provider [phone] Encounter Details Date Type Department Care Team (Late Contact Info) Description 11/16/2016 Telephone [place] [address] Ольга Carter LPN Social History [...] responsefrom insurance on a PA Forward to secretary to board of commissioners for PA documented in this encounter Plan of Treatment Upcoming Encounters Date Type Department Care Team (Late Contact Info) Description 05/13/2025 4:00 PM EST TH Visit (TeleHealth) Hematology [place] [address] Pelon Wisdom MD [facility] DR [place] [address] documented as of this encounter Visit Diagnoses Not on filedocumented in this encounter Care Teams Signal Constructor Relationship Specialty Start Date End Date Leeanna Cohn MD [address] [place] [address] PCP - General 03/14/10 02/13/17 documented as of this encounter
--- OUTSIDE RECORDS SUMMARY | 2024-05-15 12:58 | XMS_ITS | Encounter Summary ---
Author Organization [facility] [place] [address] Care Team Providers Care Salvage Winder And Inspector Name Role Phone Leeanna Cohn MD Primary Care Provider [phone] Encounter Details Date Type Department Care Team ([facility] Contact Info) Description 12/07/2016 Orders [place] [phone] Rosy Tavarez APRN [facility] GENERAL [place] [address] Hyperlipidemia, unspecified hyperlipidemia type Social History Tobacco [...] TH Visit (TeleHealth) H[place]ology [place] [phone] Pelon Wisdom MD [facility] HEMATOLOGY [place] [address] documented as of this encounter Visit Diagnoses Diagnosis Hyperlipidemia, unspecified hyperlipidemia type documented in this encounter Care Teams Salvage Winder And Inspector Relationship Specialty Start Date End Date Leeanna Cohn MD [address] [place] [address] PCP - General 03/14/10 02/13/17 documented as of this encounter
--- OUTSIDE RECORDS SUMMARY | 2024-05-15 12:58 | XMS_ITS | Encounter Summary ---
Author Organization [facility] Address [address] [place] [address] Care Team Providers Care Direct Service Worker Name Role Phone Terry Hall MD Unavailable Che Sharpe Primary Care Provider + Reason for Visit * Reason Onset Date Comments New/Evolving Symptoms 01/27/2024 Blood Sugar Problem 01/27/2024 Encounter Details Date Type Department Care Team (Late st Contact Info) Description 01/27/2024 Telephone [facility] Endocrinology - [facility] [address] [place] [address] Gely Walker NP [address] [facility] [address] [place] [address] New/Evolving Symptoms; Blood Sugar Problem Social History Tobacco Use [...] encounter Miscellaneous Notes * Telephone Encounter - Karen Agee RN - 01/28/2024 0814 EDT SW patient with type 2 diabetes who is on the Omnipod insulin pump and having elevated blood sugarsdue to being prescribed prednisone 5 mg BID yesterday for a respiratory infection for 5 days Today is her second day on steroid and she has elevated blood sugars in the 200s. This morning blood sugar was 268 and she took a 5 unit bolus at 0730. At 0800, blood sugar was 214 and she gave herself 2 more units. Routing to [employer] to view insulin pump and make recommendations. Karen Agee, RN * Telephone Encounter - Sharda Alvarado - 01/27/2024 1651 EDT Patient calling again. Blood sugars continue to rise since starting prednisone this morning. Current 354, up from 200's this morning. Unable to connected via Endo nursing line. * Telephone Encounter - Gilbert Guadarrama - 01/27/2024 1057 EDT Endocrinology Incoming Call Reason for call: Active Symptoms/Disease Management Call Reason: patient has been sick all week and states her blood sugar has been running high (low 200's) she is concerned because she was prescribed prednisone and she's worried it is going to make her blood sugar vidal rocket, she would like to talk a nurse about this. Next Appointment: Visit date not found Last Office Visit: 10/16/2021 Breanna Flores MD Last Telehealth Encounter: 06/26/2023 Gely Walker, ASBESTOS SURVEYOR Send ROUTINE Priority to [facility] Endocrine Nurse Pool documented in this encounter Plan of Treatment Upcoming Encounters Date Type Department Care Team (Late st Contact Info) Description 07/23/2024 16:20 EDT Telemedicine [facility] Endocrinology - [facility] [address] [place] [address] Trini Hilario DO [address] [place] [phone] documented as of this encounter Visit Diagnoses Not on filedocumented in this encounter Care Teams Direct Service Worker Relationship Specialty Start Date End Date Che Sharpe PA [address] [place] [address] [place] [phone] PCP - General 10/16/21 Terry Hall MD [address] [place] [phone] 07/02/14 documented as of this encounter
--- OUTSIDE RECORDS SUMMARY | 2024-05-15 12:58 | XMS_ITS | Encounter Summary ---
Author Organization [facility] Address [address] [place] [address] Care Team Providers Care White Washer Name Role Phone Terry Hall MD Unavailable Che Sharpe Primary Care Provider + Encounter Details Date Type Department Care Team (Late st Contact Info) Description 02/24/2024 Lab Requisition [facility] Pathology & Laboratory Medicine - [facility] [address] [place] [address] Chago Parker MD [facility] [place], [place] [phone] Encounter for other general examination Social History [...] 05/23/2016 14:47 EST documented in this encounter Plan of Treatment Upcoming Encounters Date Type Department Care Team (Late st Contact Info) Description 07/23/2024 16:20 EDT Telemedicine [facility] Endocrinology - [facility] [address] [place], [place] [phone] Trini Hilario, DO [address] [place] [address] documented as of this encounter Procedures Procedure Name Priority Date/Time Associated Diagnosis Comments SURGICAL PATHOLOGY Today 02/24/2024 16 :57 EST Encounter for other general examination documented in this encounter Results * SURGICAL PATHOLOGY (02/24/2024 16:57 EST) Note to Patient The following pathology results have been interpreted by your pathologist and may be available to you before your health provider has had the opportunity to review them. Please allow time for your provider to receive these results and explore management options, if applicable. 02/28/2024 9:20 [facility] Final Diagnosis A. ENDOCERVIX, CURETTAGE: -Fragments of benign endocervix. 02/28/2024 9:20 [facility] Diagnosis Comment Minimal squamous mucosa present for evaluation. Deeper sections of been evaluated. 02/28/2024 9:20 [facility] Attestation By the signature below, the attending physician certifies that they have 1) personally conducted a gross and/or microscopic examination of the described specimen(s), and/or personally interpreted the results of laboratory testing of the described specimen(s), and 2) personally rendered or confirmed the above diagnosis. 02/28/2024 9:20 [facility] at 0920 Clinical History Pap: LSIL, (-) HR HPV, 02/28/2024 9:20 EST [facility] Gross Description A. Received in formalin labelled with proper patient identification (initials K, L) and ECC is a 1.0 x 0.5 x 0.3 cm aggregate of predominantly mucinous soft tissue admixed with minute fragments of rossi tissue which is entirely submitted in A1. NARENDRA MARTINEZ(ASCP) 02/25/2024 9:39 02/28/2024 9:20 EST [facility] Performing Lab [facility] 02/28/2024 9:20 EST [facility] Scanned Images 02/28/2024 9:20 EST [facility] Tissue ENDOCERVICAL STRUCTURE / Unknown 02/24/2024 16:57 EST 02/25/2024 6:48 EST Chago Parker MD PATHOLOGY ORDERABLES F inal Result [facility] [address] [place], [place] [phone] documented in this encounter Visit Diagnoses Diagnosis Encounter for other general examination documented in this encounter Care Teams White Washer Relationship Specialty Start Date End Date Che Sharpe PA [address] [place] [address] [place] [phone] PCP - General 10/16/21 Terry Hall MD [address] [place] [phone] 07/02/14 documented as of this encounter
--- OUTSIDE RECORDS SUMMARY | 2024-05-15 12:58 | XMS_ITS | Encounter Summary ---
Author Organization [facility] Address [address] [place] [address] Care Team Providers Care Staff Development Nurse Name Role Phone Terry Hall MD Unavailable Che Sharpe Primary Care Provider + Reason for Visit * Reason Comments Medications Refill Encounter Details Date Type Department Care Team (Late st Contact Info) Description 10/02/2023 Refill [facility] Endocrinology - [facility] [address] [place] [address] Gely Walker, MIGUEL [address] [facility] [address] [place] [address] Medications Refill Social History Tobacco [...] Filled Start Date End Date DEXCOM G6 TRANSMITTER deviceIndications: Type 2 diabetes mellitus with hyperglycemia, with long-term current use of insulin (HCC-CMS) CHANGE DIRECTED EVERY 3 MONTHS 1 Each 3 10/02/2023 documented in this encounter Plan of Treatment Upcoming Encounters Date Type Department Care Team (Late st Contact Info) Description 07/23/2024 16:20 EDT Telemedicine [facility] Endocrinology - [address] [address] Trini Hilario DO [address] [place] [phone] documented as of this encounter Visit Diagnoses Diagnosis Type 2 diabetes mellitus with hyperglycemia, with long-term current use of insulin (HCC-CMS)- Primary documented in this encounter Discontinued Medications Medication Sig Discontinue Reason Start Date End Da te Blood-Glucose Transmitter (DEXCOM G6 TRANSMITTER) deviceIndications:Type 2 diabetes mellitus with hyperglycemia, with long-term current use of insulin ([facility]-CMS) 1 Each by misc (non-drug; combo route) route every 3 months. 09/09/2023 10/02/2023 documented as of this encounter Care Teams Staff Development Nurse Relationship Specialty Start Date End Date Che Sharpe PA [address] [place] [address] [place] [phone] PCP - General 10/16/21 Terry Hall MD [address] [place] [phone] 07/02/14 documented as of this encounter
--- OUTSIDE RECORDS SUMMARY | 2024-05-15 12:58 | XMS_ITS | Encounter Summary ---
Author Organization [facility] Address [address] [place] [address] Care Team Providers Care Wrist Liner Name Role Phone Terry Hall MD Unavailable Che Sharpe Primary Care Provider + Encounter Details Date Type Department Care Team (Latest Contact Info) Description 02/07/2024 Lab Requisition [facility] Pathology & Laboratory Medicine - [facility] [address] [place] [address] Chago Parker MD [address] [place] [phone] Encounter for screening for human papillomavirus (HPV); Encounter for screening for malignant neoplasm of cervix Social History Tobacco Use Types Packs/Day Years [...] Contact Info) Description 07/23/2024 16:20 EDT Telemedicine [facility] Endocrinology - [facility] [address] [place], [place] [phone] Trini Hilario, [address] [phone] documented as of this encounter Procedures Procedure Name Priority Date/Time Associated Diagnosis Comments PAP TEST Today 02/07/2024 14:11 EDT Encounter for screening for human papillomavirus (HPV) Encounter for screening for malignant neoplasm of cervix HPV DNA DETECTION WITH GENOTYPING, PCR Today 02/07/2024 14:11 EDT Encounter for screening for human papillomavirus (HPV) Encounter for screening for malignant neoplasm of cervix documented in this encounter Results * HPV DNA DETECTION WITH GENOTYPING, PCR (02/07/2024 14:11 EDT) HPV High Risk type 16, PCR Negative Negative 02/18/2024 14:25 EDT [facility] HPV High Risk type 18, PCR Negative Negative 02/18/2024 14:25 EDT [facility] HPV other High Risk types, PCR Negative Negative 02/18/2024 14:25 EDT [facility] Comment: The following Other High Risk HPV types were not detected: ??31,33, 35, 39, 45, 51, 52, 56, 58, 59, 66 and 68. Pap Test CERVIX UTERI STRUCTURE / Unknown 02/07/2024 14:11 EDT 02/17/2024 17:06 EDT us Chago Parker MD MICROBIOLOGY - GENERAL ORDERABLES Final Result [facility] [address], [place] [phone] * PAP TEST (02/07/2024 14:11 EDT) Specimens A. Cervix and/or Endocervix , ThinPrep Imaging System with Manual Evaluation 02/18/2024 14:25 [facility] Specimen Adequacy Satisfactory for Evaluation - transformation zone component present 02/18/2024 14:25 [facility] General Categorization Epithelial Cell Abnormality 02/18/2024 14:25 [facility] Descriptive Diagnosis Squamous Cell Abnormality - Low grade squamous intraepithelial lesion (LSIL). 02/18/2024 14:25 [facility] Educational Comments [facility] recommends following the ASCCP's management guidelines which may be found at www.asccp.org 02/18/2024 14:25 [facility] Attestation By the signature below, the attending physician certifies that they have personally conducted a gross and/or microscopic examination of the described specimens and rendered or confirmed the above diagnosis. 02/18/2024 14:25 [facility] at 1425 Clinical History See below 02/18/20 14:25 [facility] Performing Lab [facility] 02/18/2024 14:25 [facility] Scanned Images 02/18/2024 14:25 [facility] HPV High Risk type 16, PCR Negative 02/18/2024 14:25 [facility] HPV High Risk type 18, PCR Negative 02/18/2024 14:25 [facility] HPV Other High Risk Types, PCR Negative The following Other High Risk HPV types were not detected: 31,33, 35, 39, 45, 51, 52, 56, 58, 59, 66 and 68. 02/18/2024 14:25 EDT [facility] Pap Test CERVIX UTERI STRUCTURE / Unknown 02/07/2024 14:11 EDT 02/10/2024 12:38 EDT Chago Parker MD PATHOLOGY ORDERABLES F inal Result [facility] [address], [place] [phone] documented in this encounter Visit Diagnoses Diagnosis Encounter for screening for human papillomavirus (HPV) Special screening examination for human papillomavirus (HPV) Encounter for screening for malignant neoplasm of cervix Screening for malignant neoplasm of the cervix documented in this encounter Care Teams Wrist Liner Relationship Specialty Start Date End Date Che Sharpe PA [address] [place] [phone] PCP - General 10/16/21 Terry Hall MD [address] [place] [address] [phone] 07/02/14 documented as of this encounter
--- OUTSIDE RECORDS SUMMARY | 2024-05-15 12:58 | XMS_ITS | Encounter Summary ---
Author Organization [facility] Address [address] [place] [address] Care Team Providers Care Diagnostic Medical Sonographer Name Role Phone Terry Hall MD Unavailable Che Sharpe Primary Care Provider + Reason for Visit * Reason Onset Date Comments Blood Sugar Problem 01/30/2024 Encounter Details Date Type Department Care Team (Late st Contact Info) Description 01/30/2024 Telephone [facility] Endocrinology - [address] [address] Fran Lopez MD [address] [place] [phone] Blood Sugar Problem Social History Tobacco Use [...] EST Sexual Orientation Choose not to disclose 01/19/ 2024 15:46 EST documented as of this encounter [...] encounter Miscellaneous Notes * Telephone Encounter - Fran Lopez MD - 01/30/2024 2212 EDT Received call from patient. Moderate ketones in urine, blood glucose in 289 - feeling very thirsty with increase urination; no abdominal pain, nausea, vomiting, chest pain, changes in mental status. Has been diagnosed with respiratory infection recently, prescribed prednisone and antibiotics. Glucose has been going up. She is on OMNIPOD, but does not know how to operate the pump to trouble shoot. Has insulin pens at home. She is tolerating PO intake. Chart reviewed. Last setting from notes by Camila Sewell (07/2023) Plan: We created a new basal profile [...] verbalized understanding. No barriers to learning noted. Advised patient to give herself 5 units humalog for correction x1 now. Drink plenty of water, recheck glucose and ketones in 2 hours. ER precautions: if ketones are worsening (progression from moderate to large), worsening shortness of breath, chest pain, abdominal pain, nausea, vomiting, not able to hydrate orally. Verbalized understanding. She will reach back to assembly person if any concerns. documented in this encounter Plan of Treatment Upcoming Encounters Date Type Department Care Team (Late st Contact Info) Description 07/23/2024 16:20 EDT Telemedicine [facility] Endocrinology - [facility] [address] [place], [place] [phone] Trini Hilario, [address] [place] [phone] documented as of this encounter Visit Diagnoses Not on filedocumented in this encounter Care Teams Diagnostic Medical Sonographer Relationship Specialty Start Date End Date Che Sharpe PA [address] [place] [phone] PCP - General 10/16/21 Terry Hall MD [address] [place] [address] 07/02/14 documented as of this encounter
--- OUTSIDE RECORDS SUMMARY | 2024-05-15 12:58 | XMS_ITS | Encounter Summary ---
Author Organization [facility] [place] [place] [address] Care Team Providers Care Principal Java Software Engineer Name Role Phone Leeanna Cohn MD Primary Care Provider [phone] Encounter Details Date Type Department Care Team (Late st Contact Info) Description 11/22/2016 Telephone [place] [address] Mariaa De La Rosa, RN [...] approved for victoza on 11/16/16. Spoke with admin secretary Manisha who does these. She is going to follow up with pharmacy and insurance. documented in this encounter Plan of Treatment Upcoming Encounters Date Type Department Care Team (Late st Contact Info) Description 05/13/2025 4:00 PM EST TH Visit (TeleHealth) [place]emat[place] [address] Pelon Wisdom MD [facility] DR HEMATOLOGY [place] [address] documented as of this encounter Visit Diagnoses Not on filedocumented in this encounter Care Teams Principal Java Software Engineer Relationship Specialty Start Date End Date Leeanna Cohn MD [address] [place] [address] PCP - General 03/14/10 02/13/17 documented as of this encounter
--- OUTSIDE RECORDS SUMMARY | 2024-05-15 12:58 | XMS_ITS | Encounter Summary ---
Author Organization [facility] Address [address] [place] [address] Care Team Providers Care Pediatric Dental Hygienist Name Role Phone Terry Hall MD Unavailable Che Sharpe Primary Care Provider + Reason for Visit * Reason Onset Date Comments Medications Refill 01/15/2024 Encounter Details Date Type Department Care Team (Late st Contact Info) Description 01/15/2024 Refill [facility] Endocrinology - [facility] [address] [place] [address] Gely Walker NP [address] [facility] [address] [place] [address] Medications Refill Social History Tobacco [...] Last Filled Start Date End Date insulin pump cart,automated,BT (OMNIPOD 5 G6 PODS, GEN 5,) cartridgeIndication s:Type 1 diabetes mellitus with hyperglycemia ([facility]) Use 1 Each as directed every 72 hours. E11.65 30 Each 3 01/15/2024 documented in this encounter Miscellaneous Notes * Telephone Encounter - Karen Agee RN - 01/15/2024 0931 EDT Orders validated and processed refill request. Karen Agee RN * Telephone Encounter - Gilbert Guadarrama - 01/15/2024 0854 EDT Endocrinology Incoming Call Reason for call: Medication Issue/PA Request Medication(s) Requested: insulin pump cart,automated,BT (OMNIPOD 5 G6 PODS, GEN 5,) cartridge Pharmacy: [id number] [facility] [phone] Will the patient be out of medication in the next 3 days? Yes - Send HIGH priority to [facility] Endocrinology Nurse [place] Patient is completely out of medication Next Appointment: Visit date not found Last [...] Contact Info) Description 07/23/2024 16:20 EDT Telemedicine [facility] Endocrinology - [facility] [address] [place] [address] Trini Hilario, DO [address] [place] [phone] documented as of this encounter Visit Diagnoses Diagnosis Type 1 diabetes mellitus with hyperglycemia ([facility])- Primary Type I (juvenile type) diabetes mellitus without mention of complication, not stated as uncontrolled documented in this encounter Discontinued Medications Medication Sig Discontinue Reason Start Date End Da te insulin pump cart,automated,BT (OMNIPOD 5 G6 PODS, GEN 5,) cartridgeIndications:Type 1 diabetes mellitus with hyperglycemia ([facility]) Inject 1 Each into the skin every 72 hours. Reorder 11/08/2022 01/15/2024 documented as of this encounter Care Teams Pediatric Dental Hygienist Relationship Specialty Start Date End Date Che Sharpe PA [address] [place] [address] [place] [phone] PCP - General 10/16/21 Terry Hall MD [address] [place] [address] 07/02/14 documented as of this encounter
--- OUTSIDE RECORDS SUMMARY | 2024-05-15 12:58 | XMS_ITS | Encounter Summary ---
Author Organization [facility] Address [facility] [place] [address] Care Team Providers Care Measurement Technician Name Role Phone Leeanna Cohn MD Primary Care Provider [phone] Reason for Visit * Reason Comments Dizziness * Consultation (Routine) - Closed Specialty Diagnoses / Procedures Referred By Contlaura t Referred To Contact Neurology Diagnoses Vertigo Rosy Tavarez APRN [facility] [place] [address] [facility] [address] [place] [address] Referral ID Status Reason Start Date Expiration Date V isits Requested Visits Authorized [id number] Closed Specialty Service Requested 11/15/2016 11/15/2017 1 1 Encounter Details Date Type Department Care Team (Late st Contact Info) Description 11/29/2016 1:00 PM EDT Office [place] [address] Alex Brand MD [facility] [place] [address] Robbin Costa MD Syncope, unspecified syncope type; Vertigo Social History [...] 50s to 200-300s. She was seen at [facility] in 2004 and 2006 for syncope. 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 Review of systems: Constitutional: No fevers or [...] No tremor Gait: Stable, steady Special maneuvers: -Headland-Hallpike - induced lightheadedness with head turned to [...] Costa MD Neurology Resident, PGY-4 Personal Pager [phone] I saw and evaluated the patient with [...] Visit (TeleHealth) Hematology [place] [address] Pelon Wisdom MD [facility] [place] [address] Scheduled Referrals Name Type Priority Associated Diagnoses Orde r Schedule Referral to Neurology Outpatient Referral Routine Vertigo Ordered: 11/15/2016 documented as of this encounter Visit Diagnoses Diagnosis Syncope, unspecified syncope type Vertigo Dizziness and giddiness documented in this encounter Care Teams Measurement Technician Relationship Specialty Start Date End Date Leeanna Cohn MD [address] [place] [address] PCP - General 03/14/10 02/13/17 documented as of this encounter
--- OUTSIDE RECORDS SUMMARY | 2024-05-15 12:58 | XMS_ITS | Encounter Summary ---
Author Organization [facility] [place] [address] Care Team Providers Care Granulator Machine Operator Name Role Phone Leeanna Cohn MD Primary Care Provider [phone] Reason for Visit * Reason Onset Date Comments Prior Authorization 11/16/2016 Encounter Details Date Type Department Care Team (Late Contact Info) Description 11/16/2016 Telephone [place] [phone] Jackie Monahan Prior Authorization Social History Tobacco [...] for request: TYPE II DM Health plan: [place]) Authorizing patient care representative name: EBEN Faxed to health plan on: 11/16/16 Health plan decision: APPROVED Quantity approved: Authorization number: [id number] Start date: 11/16/16 End date: 11/16/17 documented in this encounter Plan of Treatment Upcoming Encounters Date Type Department Care Team (Late Contact Info) Description 05/13/2025 4:00 PM EST TH Visit (TeleHealth) Hematology [place] [address] Pelon Wisdom MD [facility] DR HEMATOLOGY [place] [address] documented as of this encounter Visit Diagnoses Not on filedocumented in this encounter Care Teams Granulator Machine Operator Relationship Specialty Start Date End Date Leeanna Cohn MD [address] [place] [address] PCP - General 03/14/10 02/13/17 documented as of this encounter
--- OUTSIDE RECORDS SUMMARY | 2024-05-15 12:59 | XMS_ITS | Encounter Summary ---
Author Organization [facility] Address [address] [place] [address] Care Team Providers Care Assistant Refinery Operator Name Role Phone Terry Hall MD Unavailable Che Sharpe Primary Care Provider + Reason for Visit * Reason Onset Date Comments DME 11/16/2022 Encounter Details Date Type Department Care Team (Late st Contact Info) Description 11/16/2022 Telephone [facility] Endocrinology - [facility] [address] [place] [address] Gely Walker, MIGUEL [address] [facility] [address] [place] [address] DME Social History Tobacco Use [...] Contact Info) Description 07/23/2024 16:20 EDT Telemedicine [facility] Endocrinology - [address] [phone] Trini Hilario DO [address] [place] [address] documented as of this encounter Visit Diagnoses Not on filedocumented in this encounter Care Teams Assistant Refinery Operator Relationship Specialty Start Date End Date Che Sharpe PA [address] [place] [address] [place] [phone] PCP - General 10/16/21 Terry Hall MD [address] [place] [address] 07/02/14 documented as of this encounter
--- OUTSIDE RECORDS SUMMARY | 2024-05-15 12:59 | XMS_ITS | Encounter Summary ---
Author Organization [facility] Address [address] [place] [address] Care Team Providers Care Parts Classifier Name Role Phone Terry Hall MD Unavailable Che Sharpe Primary Care Provider + Reason for Referral * Laboratory Services (Routine/Next Available) - New Request Specialty Diagnoses / Procedures Referred By Luana landon Referred To Contact Diagnoses Type 2 diabetes mellitus with hyperglycemia, with long-term current use of insulin ([facility]) Procedures HEMOGLOBIN A1C Gely Walker NP Phone: tel: fax: Referral ID Status Reason Start Date Expiration Date V isits Requested Visits Authorized [id number] New Request 07/01/2023 1 1 Reason for Visit * Reason Comments Diabetes Encounter Details Date Type Department Care Team (Latest Contact Info) Description 06/26/2023 16:30 EST Telemedicine [facility] Endocrinology - [facility] [address] [place] [address] Gely Walker NP [address] [facility] [address] [place] [address] Type 2 diabetes mellitus with hyperglycemia, with long-term current use of insulin ([facility]) ([facility]) (Primary Dx) Social History [...] 05/23/2016 14:47 EST documented in this encounter Progress Notes * Gely Walker, REAMING MACHINE OPERATOR FOR PLASTIC - 06/26/2023 1630 EST The concept of [...] lives) Patient location state: Visit Location State: [place] The location of the provider: Home Office Provider location state: Visit Location State: [place] The following people and their roles were present for today's visit: Appointment Provider: Gely Walker, MIGUEL Walker NP [facility] Diabetes Follow-Up Note Chief Complaint Patient presents [...] symptoms. She uses omnipod 5 (gets from [employer] mail order but has to pick them up at [employer] [employer] in [place]?) and dexcom G6 ([facility] in [place]). She feels her BG are well controlled [...] 4.8 oz) Patient is UTD with eye critical care physician for annual dilated eye exam: Yes PHYSICAL EXAMINATION: Vitals: There were no vitals taken for this visit. BMI: There is no height or weight on file to calculate BMI. Physical Exam General: alert oriented x4, not in acute distress Breathing: unlabored on room air, normal effort, MAINT MECHANIC :no gross neurological deficits identified Psych: Normal [...] hyperglycemia, with long-term current use of insulin ([facility]) ([facility]) A1c 6.7 last year, due now, ordered [...] Note - Gely Walker NP - 07/01/2023 7087 EDT Associated Problem(s): Type 2 diabetes mellitus with hyperglycemia, with long- term current use of insulin ([facility]) ([facility]) A1c 6.7 last year, due now, ordered [...] Contact Info) Description 07/23/2024 16:20 EDT Telemedicine [facility] Endocrinology - [address] [address] Trini Hilario, DO [address] [place] [phone] Scheduled Orders Name Type Priority Associated Diagnoses Orde r Schedule HEMOGLOBIN A1C Lab Routine Type 2 diabetes mellitus with hyperglycemia, with long-term current use of insulin ([facility]) ([facility]) Expected: 07/02/2023 (Approximate), Expires: 06/30/2024 documented as of this encounter Visit Diagnoses Diagnosis Type 2 diabetes mellitus with hyperglycemia, with long-term current use of insulin ([facility]) ([facility])- Primary documented in this encounter Care Teams Parts Classifier Relationship Specialty Start Date End Date Che Sharpe PA [address] [place] [address] [place] [phone] PCP - General 10/16/21 Terry Hall MD [address] [place] [address] 07/02/14 documented as of this encounter
--- OUTSIDE RECORDS SUMMARY | 2024-05-15 12:59 | XMS_ITS | Encounter Summary ---
Author Organization [facility] Address [address] [place] [address] Care Team Providers Care Repairer Engine Production Name Role Phone Terry Hall MD Unavailable Che Sharpe Primary Care Provider + Reason for Visit * Reason Onset Date Comments Blood Sugar Problem 06/24/2022 Encounter Details Date Type Department Care Team (Late st Contact Info) Description 06/24/2022 Telephone [facility] Endocrinology - [facility] [address] [place] [address] Mikayla Barajas DO 62 [facility] [address] [place] [address] Blood Sugar Problem Social History [...] Contact Info) Description 07/23/2024 16:20 EDT Telemedicine [facility] Endocrinology - [address] [phone] Trini Hilario DO [address] [place] [address] documented as of this encounter Visit Diagnoses Not on filedocumented in this encounter Care Teams Repairer Engine Production Relationship Specialty Start Date End Date Che Sharpe PA [address] [place] [address] [place] [phone] PCP - General 10/16/21 Terry Hall MD [address] [place] [address] 07/02/14 documented as of this encounter
--- OUTSIDE RECORDS SUMMARY | 2024-05-15 12:59 | XMS_ITS | Encounter Summary ---
Author Organization [facility] Address [address] [place] [address] Care Team Providers Care Setter Off Name Role Phone Terry Hall MD Unavailable Yehuda Stallworth DO Primary Care Provider Che Sharpe Primary Care Provider + Encounter Details Date Type Department Care Team (Late st Contact Info) Description 01/16/2021 Lab Requisition [facility] Pathology & Laboratory Medicine - [facility] [address] [place], [place] [phone] Outr Resulting Lab, Provider Social History Tobacco [...] Contact Info) Description 07/23/2024 16:20 EDT Telemedicine [facility] Endocrinology - [facility] [address] [place] [address] Trini Hilario DO [address] [place] [address] documented as of this encounter Procedures Procedure Name Priority Date/Time Associated Diagnosis Comments IGA Routine 01/16/2021 8:59 EDT documented in this encounter Results * IGA (01/16/2021 8:59 EDT) IgA 304 85 - 499 mg/dL 01/17/2021 8:56 EDT [facility] Blood VENOUS BLOOD / Unknown 01/16/2021 8:59 EDT 01/16/2021 21:10 EDT us Provider Outr Resulting Lab CHEMISTRY & BLOOD GA S ORDERABLES Final Result [facility] [address] [place] [address] documented in this encounter Visit Diagnoses Not on filedocumented in this encounter Care Teams Setter Off Relationship Specialty Start Date End Date Yehuda Stallworth DO [address] [place] [address] [place] [phone] PCP - General 05/15/16 10/15/21 Che Sharpe PA [address] [place] [address] [place] [phone] PCP - General 10/16/21 Terry Hall MD [address] [place] [address] 07/02/14 documented as of this encounter
--- OUTSIDE RECORDS SUMMARY | 2024-05-15 12:59 | XMS_ITS | Encounter Summary ---
Author Organization [facility] Address [address] [place] [address] Care Team Providers Care Toolroom Clerk Name Role Phone Terry Hall MD Unavailable Che Sharpe Primary Care Provider + Reason for Visit * Reason Comments Diabetes * Consult (Routine/Next Available) - Specialty Report Received Specialty Diagnoses / Procedures Referred By Luana landon Referred To Contact Endocrinology Diagnoses Type 2 diabetes mellitus with hyperglycemia, with long-term current use of insulin ([facility]) Mikayla Barajas DO Phone: tel: fax: [facility] Endocrinology [address] [address] Phone: tel: fax: Referral ID Status Reason Start Date Expiration Date Visits Requested Visits Authorized [id number] Specialty Report Received Specialty Services Required 07/05/2022 1 1 Encounter Details Date Type Department Care Team (Late st Contact Info) Description 08/03/2022 16:00 EDT Nutrition [facility] Endocrinology - [address] [address] Riddhi Charles, RD [address] [place] [address] Social History Tobacco Use Types [...] documented in this encounter Progress Notes * Riddhi Charles RD - 08/03/2022 1600 EDT Logged into televideo visit at 3:59pm Logged out of video at 4:20pm documented in this encounter Plan of Treatment Upcoming Encounters Date Type Department Care Team (Late st Contact Info) Description 07/23/2024 16:20 EDT Telemedicine [facility] Endocrinology - [address] [address] Trini Hilario DO [address] [place] [phone] documented as of this encounter Visit Diagnoses Not on filedocumented in this encounter Care Teams Toolroom Clerk Relationship Specialty Start Date End Date Che Shapre PA [address] [place] [address] [place] [address] PCP - General 10/16/21 Terry Hall MD [address] [place] [address] 07/02/14 documented as of this encounter
--- OUTSIDE RECORDS SUMMARY | 2024-05-15 12:59 | XMS_ITS | Encounter Summary ---
Author Organization [facility] Address [address] [place] [address] Care Team Providers Care Rock Loader Name Role Phone Terry Hall MD Unavailable Che Sharpe Primary Care Provider + Reason for Visit * Reason Onset Date Comments Medication Management 09/12/2022 Encounter Details Date Type Department Care Team (Late st Contact Info) Description 09/12/2022 Telephone [facility] Endocrinology - [facility] [address] [place] [address] Gely Walker NP [address] [facility] [address] [place] [address] Medication Management Social History Tobacco [...] Refills Last Filled Start Date End Date Insulin Syringe-Needle U-100 0.3 mL 31 gauge x 5/16 syringe Use as directed daily. Brand: BD Ultra-Fine Short 100 Each 12 09/13/2022 4 BD LUER-BEBA SYRINGE 3 mL syringeIndications: Type 1 diabetes mellitus with hyperglycemia ([facility]) Inject 1 Each into the muscle 3 times daily. To use for insulin injections while off Omnipod insulin pump. 300 Each 1 09/12/2022 3 documented in this encounter Miscellaneous Notes * Addendum Note - Gely Walker NP - 09/13/2022 1753 EDTAddended by: GELY WALKER on: 09/13/2022 17:53 Modules accepted: Orders * Telephone Encounter - Gely Walker NP - 09/13/2022 1740 EDT I Spoke with pharmacist Loco at [facility] He confirmed they they had received script [...] accepted: Orders * Telephone Encounter - Karen Mcnamara RN - 09/12/2022 1612 EDT Preferred BD 3 ml syringes order placed at [facility] in [place]. Patient will be drawing up mealtime insulin [...] is not a recent pump download in [employer] and patient is not linked with [employer] to review her current pump settings and [...] glucometer and testing supplies. PLAN Routing to [facility] and Dr. Barajas for assistance to give off pump insulin instructions. Karen Mcnamara, KYLAH * Telephone Encounter - Jenn Diaz - [...] MD Last Telehealth Encounter: 07/05/2022 Gely Walker, VENEREAL DISEASE INVESTIGATOR Send ROUTINE Priority to [facility] Endocrine Nurse Pool documented in this encounter Plan of Treatment Upcoming Encounters Date Type Department Care Team (Late st Contact Info) Description 07/23/2024 16:20 EDT Telemedicine [facility] Endocrinology - [facility] [address] [place] [address] Trini Hilario, [address] [place] [phone] documented as of this encounter Visit Diagnoses Diagnosis Type 1 diabetes mellitus with hyperglycemia ([facility] Primary Type I (juvenile type) diabetes mellitus without mention of complication, not stated as uncontrolled Type 2 diabetes mellitus with hyperglycemia, with long-term current use of insulin ([facility]) documented in this encounter Discontinued Medications Medication Sig Discontinue Reason Start Date End Da te BD LUER-BEBA SYRINGE 3 mL syringeIndications:Type 1 diabetes mellitus with hyperglycemia ([facility]) Inject 1 Each into the muscle 3 times daily. To use for insulin injections while off Omnipod insulin pump. Error 09/12/2022 09/13/2022 documented as of this encounter Care Teams Rock Loader Relationship Specialty Start Date End Date Che Sharpe PA [address] [place] [address] [place] [address] PCP - General 10/16/21 Terry Hall MD [address] [place] [address] 07/02/14 documented as of this encounter
--- OUTSIDE RECORDS SUMMARY | 2024-05-15 12:59 | XMS_ITS | Encounter Summary ---
Author Organization [facility] Address [address] [place] [address] Care Team Providers Care Electrical Hardware Engineer Name Role Phone Terry Hall MD Unavailable Che Sharpe Primary Care Provider + Reason for Visit * Reason Comments Diabetes * Consult (See Order Priority) - Order Cancelled Specialty Diagnoses / Procedures Referred By Luana landon Referred To Contact Endocrinology Diagnoses Type 2 diabetes mellitus with hyperglycemia, with long-term current use of insulin ([facility]) Breanna Flores MD Phone: tel: fax: [facility] Endocrinology [address] [address] Phone: tel: fax: Referral ID Status Reason Start Date Expiration Date Visits Requested Visits Authorized [id number] Order Cancelled Specialty Services Required 12/07/2021 1 1 Encounter Details Date Type Department Care Team (Late st Contact Info) Description 01/30/2022 16:00 EDT Nutrition [facility] Endocrinology - [address] [phone] Riddhi Charles, RD [address] [place] [address] Type 2 diabetes mellitus with hyperglycemia, with long-term current use of insulin ([facility]) (Primary Dx) Social History Tobacco Use Types [...] in this encounter Progress Notes * Riddhi Charles, RD - 01/30/2022 1600 EDT Images from the original note were not included. [facility] Endocrinology and Diabetes DIABETES NUTRITION INITIAL VISIT [...] Home Patient location state: Visit Location State: [place] The location of the provider: home Provider location state: Visit Location State: [place] The following people and their roles were [...] initial medical nutrition therapy visit at the [facility] Endocrinology & Diabetes out-patient clinic on 01/30/2022. [...] Contact Info) Description 07/23/2024 16:20 EDT Telemedicine [facility] Endocrinology - [address] [address] Trini Hilario DO [address] [place] [phone] documented as of this encounter Visit Diagnoses Diagnosis Type 2 diabetes mellitus with hyperglycemia, with long-term current use of insulin ([facility])- Primary documented in this encounter Care Teams Electrical Hardware Engineer Relationship Specialty Start Date End Date Che Sharpe PA [address] [place] [address] [place] [phone] PCP - General 10/16/21 Terry Hall MD [address] [place] [address] 07/02/14 documented as of this encounter
--- OUTSIDE RECORDS SUMMARY | 2024-05-15 12:59 | XMS_ITS | Encounter Summary ---
Author Organization [facility] Address [address] [place] [address] Care Team Providers Care Plasma Cutting Machine Operator Name Role Phone Terry Hall MD Unavailable Che Sharpe Primary Care Provider + Reason for Visit * Reason Onset Date Comments Coordination Of Care 10/20/2021 Medications Refill 11/02/2021 Encounter Details Date Type Department Care Team (Late st Contact Info) Description 10/20/2021 Refill [facility] Endocrinology - [address] [address] Breanna Flores MD [address] [place] [address] [place] [phone] Coordination Of Care; Medications Refill Social [...] Start Date End Date Insulin Syringe-Needle U-100 1 mL 29 gauge [...] via insulin pump 30 mL 3 10/24/2021 3 insulin glargine (LANTUS SOLOSTAR/SEMGLEE) 100 unit/mL (3 mL) injection penIndications:Typ e 2 diabetes mellitus with hyperglycemia, with long-term current use of insulin ([facility]) Inject 25 Units into the skin once daily. 30 mL 3 10/20/2021 3 insulin lispro (HUMALOG KWIKPEN) 100 unit/mL injectable pen Inject 8 Units into the skin 3 times daily with meals. 30 mL 3 10/20/2021 2 documented in this encounter Miscellaneous Notes * Telephone Encounter - Leda Ruead RN - 11/02/2021 0958 EDT Pt message: I???ve been in touch with the paraeducator Marichuy Quinones since last week about training to getstarted with my pump Omnipod 5. She faxed paperwork that needs to be signed off and needs some infoto get me started. I was curious if anyones looked at them? I???m anxious to get going with my pump. ?? Thank you! Per TE 10/31/21: Faxed [employer] Omnipod 5 Pump Therapy Order Form on 10/31/21 to [phone] [employer] message sent to pt. LEDA RUEDA RN [...] [employer] is sending her anew transmitter. This technical document writer will send a script for a glucometer to [facility] in [facility] for pt to use in interim [...] that her insulin pens be sent to [facility] in [place]. They were inadvertently sent to [facility] in [place]. Pt asking about what to do with the pens if she will be using vial with her insulin pump. Pt deferred to CDEs ans to that question, and advised her taht when she picks up her insulin pens from pharmacy she can opt to take only a partial amount to avoid having too manypens that will not be used. Left MyChart message for pt to let her know that scripts have yamilex sent, and to let her know that ifthe pump she has is an Omnipod 5 then she will need to contact Omnipod as the Omnipod reps are training on that pump. Routing to Dr. flores to order the correct insulin for use with Omnipod pump. Katie Echeverria, telegraph office telephone clerk * Telephone Encounter - Ned Anderson - 10/20/2021 0905 EDT Patient's transmitter starting giving them an error message yesterday and stopped working. Patient spoke with [employer] and they are sending another device but [...] Contact Info) Description 07/23/2024 16:20 EDT Telemedicine [facility] Endocrinology - [address] [address] Trini Hilario DO [address] [place] [phone] documented as of this encounter Visit Diagnoses Diagnosis Type 2 diabetes mellitus with hyperglycemia, with long-term current use of insulin ([facility])- Primary documented in this encounter Discontinued Medications Medication Sig Discontinue Reason Start Date End Da te insulin glargine (LANTUS SOLOSTAR/SEMGLEE) 100 unit/mL (3 mL) injection penIndications:Type 2 diabetes mellitus with hyperglycemia, with long-term current use of insulin ([facility]) Inject 25 Units into the skin once daily. Reorder 10/16/2021 10/20/2021 insulin lispro (HUMALOG KWIKPEN) 100 unit/mL injectable pen Inject 8 Units into the skin 3 times daily with meals. Reorder 10/16/2021 10/20/2021 documented as of this encounter Care Teams Plasma Cutting Machine Operator Relationship Specialty Start Date End Date Che Sharpe PA [address] [place] [address] [place] [phone] PCP - General 10/16/21 Terry Hall MD [address] [place] [address] 07/02/14 documented as of this encounter
--- OUTSIDE RECORDS SUMMARY | 2024-05-15 12:59 | XMS_ITS | Encounter Summary ---
Author Organization [facility] Address [address] [place] [address] Care Team Providers Care High Lead Yarder Name Role Phone Terry Hall MD Unavailable Che Sharpe Primary Care Provider + Reason for Visit * Reason Onset Date Comments Medication Questions 11/03/2021 Encounter Details Date Type Department Care Team (Late st Contact Info) Description 11/03/[address] [facility] Endocrinology - [facility] [address] [place] [address] Breanna Flores MD 62 [facility] [address] [place] [address] Medication Questions Social History Tobacco [...] Description 07/23/2024 16:20 EDT Telemedicine [facility] Endocrinology - [address] [address] Trini Hilario DO [address] [place] [phone] documented as of this encounter Visit Diagnoses Not on filedocumented in this encounter Care Teams High Lead Yarder Relationship Specialty Start Date End Date Che Sharpe PA [address] [place] [address] [place] [phone] PCP - General 10/16/21 Terry Hall MD [address] [place] [address] 07/02/14 documented as of this encounter
--- OUTSIDE RECORDS SUMMARY | 2024-05-15 12:59 | XMS_ITS | Encounter Summary ---
Author Organization [facility] Address [address] [place] [address] Care Team Providers Care Dye Maker Name Role Phone Terry Hall MD Unavailable Che Sharpe Primary Care Provider + Reason for Visit * Reason Onset Date Comments Blood Sugar Problem 07/23/2022 Letter 07/23/2022 Follow-up 07/23/2022 Encounter Details Date Type Department Care Team (Late st Contact Info) Description 07/23/2022 Telephone [facility] Endocrinology - [facility] [address] [place] [address] Gely Walker, MIGUEL [address] [facility] [address] [place] [address] Blood Sugar Problem; Letter; Follow-up [...] that she was in contact with her bath design sales consultant today regarding the concerns and experience she had this morning with her sugar issue. * Telephone Encounter - Camila Sewell CDE - 07/23/2022 0950 EDT Omnipod 5 is not connecting to the [employer]. I have asked her to connect. If [...] back on auto mode. Pt settings per 3/[address] Barajas are: Basal 0.8 u/hr CX 1:30 [employer] Pt states taht she has not had any lows for some time and has yamilex feeling well generally. This senior medical writer asked if she had done anythig [...] did consume glucose and apple juice. This senior medical writer asked if she had suspended her pump while having difficulty bringing her BG back up andshe had not. Routing to CDE and provider. Pt asked for a leter for work excusing her. Letter can be sent to her via [employer]. * Telephone Encounter - Lynda Browning - [...] MD Last Telehealth Encounter: 07/05/2022 Gely Walker, JACKER Send ROUTINE Priority to [facility] Endocrine Nurse Yeoman documented in this encounter Plan of Treatment Upcoming Encounters Date Type Department Care Team (Late st Contact Info) Description 07/23/2024 16:20 EDT Telemedicine [facility] Endocrinology - [facility] [address] [place], [place] [phone] Trini Hilario DO [address] [place] [phone] documented as of this encounter Visit Diagnoses Not on filedocumented in this encounter Care Teams Dye Maker Relationship Specialty Start Date End Date Che Sharpe PA [address] [place] [address] [place] [phone] PCP - General 10/16/21 Terry Hall MD [address] [place] [phone] 07/02/14 documented as of this encounter
--- OUTSIDE RECORDS SUMMARY | 2024-05-15 12:59 | XMS_ITS | Encounter Summary ---
Author Organization [facility] Address [address] [place] [address] Care Team Providers Care Informatica Name Role Phone Terry Hall MD Unavailable Che Sharpe Primary Care Provider + Encounter Details Date Type Department Care Team (Late st Contact Info) Description 06/24/2022 Orders Only [facility] Endocrinology - [facility] [address] [place] [address] Mikayla Barajas DO 62 [facility] [address] [place] [address] Type 2 diabetes mellitus with hyperglycemia, with long-term current use of insulin ([facility]) (Primary Dx) Social History Tobacco Use [...] Last Filled Start Date End Date insulin pen needles 31G x 3/16 Use as directed as needed for Other (pump failure). Brand: BD Ultra Fine Mini 20 Each 5 06/24/2022 insulin glargine (LANTUS SOLOSTAR/SEMGLEE) 100 unit/mL (3 mL) injection penIndications:Typ e 2 diabetes mellitus with hyperglycemia, with long-term current use of insulin ([facility]) Inject 18 Units into the skin as needed (daily for pump failure). 3 mL 5 06/24/2022 documented in this encounter Plan of Treatment Upcoming Encounters Date Type Department Care Team (Late st Contact Info) Description 07/23/2024 16:20 EDT Telemedicine [facility] Endocrinology - [address] [address] Trini Hilario DO [address] [place] [address] documented as of this encounter Visit Diagnoses Diagnosis Type 2 diabetes mellitus with hyperglycemia, with long-term current use of insulin ([facility] Primary documented in this encounter Discontinued Medications Medication Sig Discontinue Reason Start Date End Da te insulin glargine (LANTUS SOLOSTAR/SEMGLEE) 100 unit/mL (3 mL) injection penIndications:Type 2 diabetes mellitus with hyperglycemia, with long-term current use of insulin ([facility]) Inject 25 Units into the skin once daily. Reorder 10/20/2021 06/24/2022 documented as of this encounter Care Teams Informatica Relationship Specialty Start Date End Date Che Sharpe PA [address] [place] [address] [place] [address] PCP - General 10/16/21 Terry Hall MD [address] [place] [address] 07/02/14 documented as of this encounter
--- OUTSIDE RECORDS SUMMARY | 2024-05-15 12:59 | XMS_ITS | Encounter Summary ---
Author Organization [facility] Address [address] [place] [address] Care Team Providers Care White Metal Corrosion Proofer Name Role Phone Terry Hall MD Unavailable Che Sharpe Primary Care Provider + Reason for Visit * Reason Onset Date Comments DME 10/17/2021 Encounter Details Date Type Department Care Team (Late st Contact Info) Description 10/17/2021 Telephone [facility] Endocrinology - [facility] [address] [place] [address] Breanna Flores MD 62 [facility] [address] [place] [address] DME Social History Tobacco Use [...] - 10/17/2021 1145 EDT Faxed Filled Out [employer] Madeline Form to [phone] on 10/17/21 documented in this encounter Plan of Treatment Upcoming Encounters Date Type Department Care Team (Late st Contact Info) Description 07/23/2024 16:20 EDT Telemedicine [facility] Endocrinology - [address] [address] Trini Hilario, DO [address] [place] [phone] documented as of this encounter Visit Diagnoses Not on filedocumented in this encounter Care Teams White Metal Corrosion Proofer Relationship Specialty Start Date End Date Che Sharpe PA [address] [place] [address] [place] [phone] PCP - General 10/16/21 Terry Hall MD [address] [place] [phone] 07/02/14 documented as of this encounter
--- OUTSIDE RECORDS SUMMARY | 2024-05-15 12:59 | XMS_ITS | Encounter Summary ---
Author Organization [facility] Address [address] [place] [address] Care Team Providers Care Personal Care Assistant Name Role Phone Terry Hall MD Unavailable Yehuda Stallworth DO Primary Care Provider Che Sharpe Primary Care Provider + Encounter Details Date Type Department Care Team (Late st Contact Info) Description 06/19/2021 Lab Requisition [facility] Pathology & Laboratory Medicine - [facility] [address] [place], [place] [phone] Outr Resulting Lab, Provider Social History Tobacco [...] Contact Info) Description 07/23/2024 16:20 EDT Telemedicine [facility] Endocrinology - [facility] [address] [place] [address] Trini Hilario DO [address] [place] [address] documented as of this encounter Procedures Procedure Name Priority Date/Time Associated Diagnosis Comments INSULIN Routine 06/19/2021 15:44 EST documented in this encounter Results * INSULIN (06/19/2021 15:44 EST) Insulin 14.3 <29.0 uIU/mL 06/22/2021 9:03 EST [facility] Comment: Displayed Reference Range applies to fasting specimens only. Blood VENOUS BLOOD / Unknown 06/19/2021 15:44 EST 06/19/2021 22:03 EST us Provider Outr Resulting Lab CHEMISTRY & BLOOD GA S ORDERABLES Final Result Performing Organization Address City/State/[facility] Co de Phone Number [facility] [address] [place] [address] documented in this encounter Visit Diagnoses Not on filedocumented in this encounter Care Teams Personal Care Assistant Relationship Specialty Start Date End Date Yehuda Stallworth DO [address] [place] [phone] PCP - General 05/15/16 10/15/21 Che Sharpe PA [address] [place] [address] [place] [address] PCP - General 10/16/21 Terry Hall MD [address] [place] [address] 07/02/14 documented as of this encounter
--- OUTSIDE RECORDS SUMMARY | 2024-05-15 12:59 | XMS_ITS | Encounter Summary ---
Author Organization [facility] Address [address] [place] [address] Care Team Providers Care Adjunct Sociology Professor Name Role Phone Terry Hall MD Unavailable Che Sharpe Primary Care Provider + Reason for Visit * Reason Onset Date Comments DME 10/31/2021 [employer] Encounter Details Date Type Department Care Team (Late st Contact Info) Description 10/31/2021 Telephone [facility] Endocrinology - [facility] [address] [place] [address] Breanna Flores MD 62 [facility] [address] [place] [address] DME ([employer] Madeline) Social History [...] Harding - 11/02/2021 1132 EDT Stepan from [employer] let us know patient has received the new Omnipod and is going to contact her to coordinate training. * Telephone Encounter - Dale [place] MA - 10/31/2021 1001 EDT Faxed [employer] Omnipod 5 Pump Therapy Order Form on 10/31/21 to [phone] documented in this encounter Plan of Treatment Upcoming Encounters Date Type Department Care Team (Late st Contact Info) Description 07/23/2024 16:20 EDT Telemedicine [facility] Endocrinology - [address] [address] Trini Hilario, [address] [place] [phone] documented as of this encounter Visit Diagnoses Not on filedocumented in this encounter Care Teams Adjunct Sociology Professor Relationship Specialty Start Date End Date Che Sharpe PA [address] [place] [address] [place] [phone] PCP - General 10/16/21 Terry Hall MD [address] [place] [phone] 07/02/14 documented as of this encounter
--- OUTSIDE RECORDS SUMMARY | 2024-05-15 12:59 | XMS_ITS | Encounter Summary ---
Author Organization [facility] Address [address] [place] [address] Care Team Providers Care Veneer Jointer Operator Name Role Phone Terry Hall MD Unavailable Che Sharpe Primary Care Provider + Reason for Visit * Reason Onset Date Comments Medications Refill 12/18/2022 Encounter Details Date Type Department Care Team (Late st Contact Info) Description 12/18/2022 Refill [facility] Endocrinology - [facility] [address] [place] [address] Gely Walker NP 62 [facility] [address] [place] [address] Medications Refill Social History Tobacco [...] every 7 days. 9 mL 3 12/30/2022 01/29/2024 documented in this encounter Miscellaneous Notes * Telephone Encounter - Mary WallisRn), RN - 12/18/2022 1313 EDT Pt last seen 11/08/2022, ozempic not addressed in OV note. * Telephone Encounter - Lexy Salinas MA - 12/18/2022 1305 EDT Images from the original note were not included. We received a fax from [employer] requesting a refill for OZEMPIC 2MG/DOSE. Please review appropriately thank you. documented in this encounter Plan of Treatment Upcoming Encounters Date Type Department Care Team (Late st Contact Info) Description 07/23/2024 16:20 EDT Telemedicine [facility] Endocrinology - [facility] [address] [place] [address] Tirni Hilario DO [address] [place] [phone] documented as of this encounter Visit Diagnoses Not on filedocumented in this encounter Discontinued Medications Medication Sig Discontinue Reason Start Date End Da te semaglutide (OZEMPIC) 2 mg/dose (8 mg/3 mL) pen injector Inject 2 mg into the skin every 7 days. Reorder 10/16/2021 12/18/2022 documented as of this encounter Care Teams Veneer Jointer Operator Relationship Specialty Start Date End Date Che Sharpe PA [address] [place] [address] [place] [phone] PCP - General 10/16/21 Terry Hall MD [address] [place] [address] 07/02/14 documented as of this encounter
--- OUTSIDE RECORDS SUMMARY | 2024-05-15 12:59 | XMS_ITS | Encounter Summary ---
Author Organization [facility] Address [address] [place] [address] Care Team Providers Care Acetylene Torch Burner Name Role Phone Terry Hall MD Unavailable Che Sharpe Primary Care Provider + Reason for Visit * Reason Comments Medications Refill Encounter Details Date Type Department Care Team (Late st Contact Info) Description 12/26/2022 Refill [facility] Endocrinology - [facility] [address] [place] [address] Gely Walker, MIGUEL 62 [facility] [address] [place] [address] Medications Refill Social History Tobacco [...] VIA INSULIN PUMP DAILY 30 mL 11 3 01/29/20 24 documented in this encounter Plan of Treatment Upcoming Encounters Date Type Department Care Team (Late st Contact Info) Description 07/23/2024 16:20 EDT Telemedicine [facility] Endocrinology - [address] [address] Trini Hilario, DO [address] [place] [phone] documented as of this encounter Visit Diagnoses Not on filedocumented in this encounter Discontinued Medications Medication Sig Discontinue Reason Start Date End Da te insulin lispro (HUMALOG U-100 INSULIN) 100 unit/mL vial INJECT UP TO 75 UNITS INTO THE SKIN VIA INSULIN PUMP DAILY 11/08/2022 12/30/2022 documented as of this encounter Care Teams Acetylene Torch Burner Relationship Specialty Start Date End Date Che Sharpe PA [address] [place] [address] [place] [address] PCP - General 10/16/21 Terry Hall MD [address] [place] [phone] 07/02/14 documented as of this encounter
--- OUTSIDE RECORDS SUMMARY | 2024-05-15 12:59 | XMS_ITS | Encounter Summary ---
Author Organization [facility] Address [address] [place] [address] Care Team Providers Care Chain Dyer Name Role Phone Terry Hall MD Unavailable Yehuda Stallworth DO Primary Care Provider Che Sharpe Primary Care Provider + Encounter Details Date Type Department Care Team (Late st Contact Info) Description 10/11/2021 Lab Requisition [facility] Pathology & Laboratory Medicine - [facility] [address] [place] [address] Nathaniel Dejesus MD Encounter for other general [...] Description 07/23/2024 16:20 EDT Telemedicine [facility] Endocrinology - [place] [address] [place] [address] Trini Hilario, DO [address] [place] [phone] documented as of this encounter Procedures Procedure [...] explore management options, if applicable. 10/13/2021 17:21 EDT [facility] Final Diagnosis A. DUODENUM, [...] with no specific pathologic features. 10/13/2021 17:21 [facility] Attestation By the signature below, the attending physician certifies that they have 1) personally conducted a gross and/or microscopic examination of the described specimen(s), and/or personally interpreted the results of laboratory testing of the described specimen(s), and 2) personally rendered or confirmed the above diagnosis. 10/13/2021 17:21 [facility] at 1721 Clinical History Chronic diarrhea and dyspepsia; colonoscopy normal, EGD normal 10/13/2021 17:21 [facility] Gross Description A. Received [...] J1. NARENDRA MA(ASCP) 10/12/2021 8:23 10/13/2021 17:21 T [facility] Performing Lab [facility] 17:21 T [facility] Scanned Images 10/13/2021 17:21 EDT [facility] Tissue SPECIMEN FROM RECTUM / [...] Unknown 10/11/2021 8:20 EDT 10/11/2021 23:11 EDT us Nathaniel Dejesus MD PATHOLOGY ORDERABLES Final Resul t [facility] [address] [place] [address] documented in this encounter Visit Diagnoses Diagnosis Encounter for other general examination documented in this encounter Care Teams Chain Dyer Relationship Specialty Start Date End Date Yehuda Stallworth DO [address] [place] [phone] PCP - General 05/15/16 10/15/21 Che Sharpe PA [address] [place] [phone] PCP - General 10/16/21 Terry Hall MD [address] [place] [phone] 07/02/14 documented as of this encounter
--- OUTSIDE RECORDS SUMMARY | 2024-05-15 12:59 | XMS_ITS | Encounter Summary ---
Author Organization [facility] Address [address] [place] [address] Care Team Providers Care Manual Plate Filler Name Role Phone Terry Hall MD Unavailable Che Sharpe Primary Care Provider + Reason for Visit * Reason Onset Date Comments DME 10/18/2021 Dexcom G6 Encounter Details Date Type Department Care Team (Late st Contact Info) Description 10/18/2021 Telephone [facility] Endocrinology - [facility] [address] [place] [address] Breanna Flores MD 62 [facility] [address] [place] [address] DME (Dexcom G6 ) Social [...] Description 07/23/2024 16:20 EDT Telemedicine [facility] Endocrinology - [address] [phone] Trini Hilario DO [address] [place] [address] documented as of this encounter Visit Diagnoses Not on filedocumented in this encounter Care Teams Manual Plate Filler Relationship Specialty Start Date End Date Che Sharpe PA [address] [place] [address] [place] [address] PCP - General 10/16/21 Terry Hall MD [address] [place] [address] 07/02/14 documented as of this encounter
--- OUTSIDE RECORDS SUMMARY | 2024-05-15 12:59 | XMS_ITS | Encounter Summary ---
Author Organization [facility] Address [address] [place] [address] Care Team Providers Care Geothermal Powerplant Mechanic Helper Name Role Phone Terry Hall MD Unavailable Yehuda Stallworth DO Primary Care Provider Che Sharpe Primary Care Provider + Encounter Details Date Type Department Care Team (Late st Contact Info) Description 01/11/2021 Lab Requisition [facility] Pathology & Laboratory Medicine - [facility] [address] [place], [place] [phone] Outr Resulting Lab, Provider Social History Tobacco [...] EDT Telemedicine [facility] Endocrinology - [place] [address] [place] [address] Trini Hilario DO [address] [place] [address] documented as of this encounter Procedures Procedure Name Priority Date/Time Associated Diagnosis Comments GIARDIA AND CRYPTOSPORIDIUM ANTIGENS Routine 01/10/2021 22:00 EDT documented in this encounter Results * GIARDIA AND CRYPTOSPORIDIUM ANTIGENS (01/10/2021 22:00 EDT) Giardia and Cryptosporidium Cryptosporidium Antigen Neg and Giardia Antigen Neg Cryptosporidium Antigen Neg and Giardia Antigen Neg 12:27 EDT [facility] Feces SPECIMEN FROM RECTUM / Unknown Stool Collect / Unknown 01/10/2021 22:00 EDT 01/11/2021 22:51 EDT us Provider Outr Resulting Lab MICROBIOLOGY - GENER AL ORDERABLES Final Result [facility] [address] [place] [address] documented in this encounter Visit Diagnoses Not on filedocumented in this encounter Care Teams Geothermal Powerplant Mechanic Helper Relationship Specialty Start Date End Date Yehuda Stallworth DO [address] [place] [phone] PCP - General 05/15/16 10/15/21 Che Sharpe PA [address] [place] [address] [place] [phone] PCP - General 10/16/21 Terry Hall MD [address] [place] [address] 07/02/14 documented as of this encounter
--- OUTSIDE RECORDS SUMMARY | 2024-05-15 12:59 | XMS_ITS | Encounter Summary ---
Author Organization [facility] Address [address] [place] [address] Care Team Providers Care Net Sql Developer Name Role Phone Terry Hall MD Unavailable Che Sharpe Primary Care Provider + Reason for Visit * Reason Comments Medications Refill Encounter Details Date Type Department Care Team (Late st Contact Info) Description 08/04/2022 Refill [facility] Endocrinology - [facility] [address] [place] [address] Gely Walker, MIGUEL 62 [facility] [address] [place] [address] Medications Refill Social History Tobacco [...] Filled Start Date End Date insulin lispro (HUMALOG) 100 unit/mL vial Inject into the skin up to 75 units via insulin pump 30 mL 08/10/2022 documented in this encounter Miscellaneous Notes * Telephone Encounter - Shivani Morrison RN - 08/10/2022 1314 EDT Request received [...] Info) Description 07/23/2024 16:20 EDT Telemedicine [facility] Endocrinology - [address] [phone] Trini Hilario DO [address] [place] [phone] documented as of this encounter Visit Diagnoses Not on filedocumented in this encounter Discontinued Medications Medication Sig Discontinue Reason Start Date End Da te insulin lispro (HUMALOG) 100 unit/mL vial Inject into the skin up to 75 units via insulin pump Reorder 05/29/2022 08/10/2022 documented as of this encounter Care Teams Net Sql Developer Relationship Specialty Start Date End Date Che Sharpe PA [address] [place] [address] [place] [phone] PCP - General 10/16/21 Terry Hall MD [address] [place] [phone] 07/02/14 documented as of this encounter
--- OUTSIDE RECORDS SUMMARY | 2024-05-15 12:59 | XMS_ITS | Encounter Summary ---
Author Organization [facility] Address [address] [place] [address] Care Team Providers Care Hat Lacer Name Role Phone Terry Hall MD Unavailable Che Sharpe Primary Care Provider + Reason for Visit * Reason Onset Date Comments Appointment Related 12/26/2021 Encounter Details Date Type Department Care Team (Late st Contact Info) Description 12/26/2021 Telephone [facility] Endocrinology - [facility] [address] [place] [address] Camila Sewell CDE [address] [facility] [address] [place] [address] Appointment Related Social History Tobacco [...] - Luciana Licea - 12/26/2021 1322 EDT College Archivist unable to link referral to 01/17 CDE appt documented in this encounter Plan of Treatment Upcoming Encounters Date Type Department Care Team (Late st Contact Info) Description 07/23/2024 16:20 EDT Telemedicine [facility] Endocrinology - [address] [phone] Trini Hilario, DO [address] [place] [phone] documented as of this encounter Visit Diagnoses Not on filedocumented in this encounter Care Teams Hat Lacer Relationship Specialty Start Date End Date Che Sharpe PA [address] [place] [address] [place] [phone] PCP - General 10/16/21 Terry Hall MD [address] [place] [phone] 07/02/14 documented as of this encounter
--- OUTSIDE RECORDS SUMMARY | 2024-05-15 12:59 | XMS_ITS | Encounter Summary ---
Author Organization [facility] Address [address] [place] [address] Care Team Providers Care Fountain Clerk Name Role Phone Terry Hall MD Unavailable Yehuda Stallworth DO Primary Care Provider Che Sharpe Primary Care Provider + Encounter Details Date Type Department Care Team (Late st Contact Info) Description 01/17/2021 Lab Requisition [facility] Pathology & Laboratory Medicine - [facility] [address] [place], [place] [phone] Outr Resulting Lab, Provider Social History Tobacco [...] Contact Info) Description 07/23/2024 16:20 EDT Telemedicine [facility] Endocrinology - [facility] [address] [place] [address] Trini Hilario DO [address] [place] [address] documented as of this encounter [...] Neg and Giardia Antigen Neg 10:25 EDT [facility] Feces SPECIMEN FROM RECTUM / Unknown 01/17/2021 13:52 EDT 01/17/2021 21:45 EDT us Provider Outr Resulting Lab MICROBIOLOGY - GENER AL ORDERABLES Final Result [facility] [address] [place] [address] * OVA/PARASITE EXAM (01/17/2021 13:52 EDT) Parasite No ova and parasites seen. 01/18/2021 12:25 EDT [facility] Feces SPECIMEN FROM RECTUM / Unknown 01/17/2021 13:52 EDT 01/17/2021 21:45 EDT Narrative [facility] - 01/18/2021 12:25 EDT (If Cryptosporidium, Cyclospora, or Microsporidium are suspected, specific tests must be requested.) Single negative specimen does not rule out the possibility of a parasitic infection. Provider Outr Resulting Lab MICROBIOLOGY - GENER AL ORDERABLES Final Result Performing Organization Address [facility] de Phone Number [facility] [address] [place] [address] * FECAL BACTERIAL PATHOGENS BY PCR (01/17/2021 13:52 EDT) Salmonella PCR Negative Negative 01/18/2021 11:59 EDT [facility] Shigella/Enteroin vasive E. coli Negative Negative 01/18/2021 11:59 EDT [facility] HN LAB CAMPYLOBACTER PCR Negative Negative 01/18/2021 11:59 EDT [facility] Shiga Toxin PCR Negative Negative 11:59 EDT [facility] Feces SPECIMEN FROM RECTUM / Unknown 01/17/2021 13:52 EDT 01/17/2021 21:45 EDT Provider Outr Resulting Lab MICROBIOLOGY - GENER AL ORDERABLES Final Result Performing Organization Address City/[facility] Co de Phone Number [facility] [address] [place] [phone] documented in this encounter Visit Diagnoses Not on filedocumented in this encounter Care Teams Fountain Clerk Relationship Specialty Start Date End Date Yehuda Stallworth DO [address] [place] [phone] PCP - General 05/15/16 10/15/21 Che Sharpe PA [address] [place] [address] [place] [address] PCP - General 10/16/21 Terry Hall MD [address] [place] [address] 07/02/14 documented as of this encounter
--- OUTSIDE RECORDS SUMMARY | 2024-05-15 12:59 | XMS_ITS | Encounter Summary ---
Author Organization [facility] Address [address] [place] [address] Care Team Providers Care Stump Blower Name Role Phone Terry Hall MD Unavailable Che Sharpe Primary Care Provider + Reason for Visit * Reason Comments Medications Refill Encounter Details Date Type Department Care Team (Late st Contact Info) Description 11/05/[address] [facility] Endocrinology - [facility] [address] [place] [address] Gely Walker, MIGUEL 62 [facility] [address] [place] [address] Medications Refill Social History Tobacco [...] VIA INSULIN PUMP DAILY 30 mL 11/06/2022 documented in this encounter Miscellaneous Notes * Telephone Encounter - Mary Wallis (Rn), RN - 11/06/2022 0959 EDT Pt last seen 07/05/2022 documented in this encounter Plan of Treatment Upcoming Encounters Date Type Department Care Team (Late st Contact Info) Description 07/23/2024 16:20 EDT Telemedicine [facility] Endocrinology - [address] [address] Trini Hilario, DO [address] [place] [phone] documented as of this encounter Visit Diagnoses Not on filedocumented in this encounter Discontinued Medications Medication Sig Discontinue Reason Start Date End Da te insulin lispro (HUMALOG U-100 INSULIN) 100 unit/mL vial INJECT INTO THE SKIN UP TO 75 UNITS VIA INSULIN PUMP 09/18/2022 11/06/2022 documented as of this encounter Care Teams Stump Blower Relationship Specialty Start Date End Date Che Sharpe PA [address] [place] [address] [place] [phone] PCP - General 10/16/21 Terry Hall MD [address] [place] [address] 07/02/14 documented as of this encounter
--- OUTSIDE RECORDS SUMMARY | 2024-05-15 12:59 | XMS_ITS | Encounter Summary ---
Author Organization [facility] Address [address] [place] [address] Care Team Providers Care Roll Repairer Name Role Phone Terry Hall MD Unavailable Che Sharpe Primary Care Provider + Reason for Visit * Reason Onset Date Comments Appointment Related 12/19/2021 Encounter Details Date Type Department Care Team (Late st Contact Info) Description 12/19/2021 Telephone [facility] Endocrinology - [facility] [address] [place] [address] Breanna Flores MD 62 [facility] [address] [place] [address] Appointment Related Social History Tobacco [...] Contact Info) Description 07/23/2024 16:20 EDT Telemedicine [facility] Endocrinology - [address] [address] Trini Hilario, DO [address] [place] [phone] documented as of this encounter Visit Diagnoses Not on filedocumented in this encounter Care Teams Roll Repairer Relationship Specialty Start Date End Date Che Sharpe PA [address] [place] [address] [place] [phone] PCP - General 10/16/21 Terry Hall MD [address] [place] [phone] 07/02/14 documented as of this encounter
--- OUTSIDE RECORDS SUMMARY | 2024-05-15 12:59 | XMS_ITS | Encounter Summary ---
Author Organization [facility] Address [address] [place] [address] Care Team Providers Care Digital Production Artist Name Role Phone Terry Hall MD Unavailable Che Sharpe Primary Care Provider + Reason for Visit * Reason Comments Diabetes * Referral (Routine) - Receiving Office to Obtain Authorization Specialty Diagnoses / Procedures Referred By Luana landon Referred To Contact Endocrinology Diagnoses Type 2 diabetes mellitus without complications ([facility]) Che Sharpe PA [address] [place] [phone] Phone: tel: fax: [address] [address] Phone: tel: fax: Referral ID Status Reason Start Date Expiration Date Visits Requested Visits Authorized [id number] Receiving Office to Obtain Authorization 1 1 Encounter Details Date Type Department Care Team (Latest Contact Info) Description 10/16/2021 8:00 EDT Office Visit [facility] Endocrinology [address] [address] Breanna Flores MD [address] [place] [address] [address] [place] [address] Type 2 diabetes mellitus with hyperglycemia, with long-term current use of insulin ([facility]) ([facility]) (Primary Dx); Type 1 diabetes mellitus with hyperglycemia ([facility]) Social History Tobacco Use Types Packs/Day [...] EDT documented in this encounter Functional Status * Because of [...] 05/23/2016 14:47 EST documented in this encounter Patient Instructions [...] every 7 days. 9 mL 3 10/16/2021 3 insulin lispro (HUMALOG KWIKPEN) 100 unit/mL injectable pen Inject 8 Units into the skin 3 times daily with meals. 30 mL 3 10/16/2021 2 insulin glargine (LANTUS SOLOSTAR/SEMGLEE) 100 unit/mL (3 mL) injection penIndications:Type 2 diabetes mellitus with hyperglycemia, with long-term current use of insulin ([facility]) Inject 25 Units into the skin once daily. 30 mL 3 10/16/2021 2 Blood-Glucose Transmitter (DEXCOM G6 TRANSMITTER) deviceIndications:T ype 2 diabetes mellitus with hyperglycemia, with long-term current use of insulin ([facility]),Type 1 diabetes mellitus with hyperglycemia ([facility]) 1 Each by misc (non-drug; combo route) route every 3 months. 1 Each 3 10/16/2021 3 Blood-Glucose Sensor (DEXCOM G6 SENSOR) deviceIndications:T ype 2 diabetes mellitus with hyperglycemia, with long-term current use of insulin ([facility]),Type 1 diabetes mellitus with hyperglycemia ([facility]) 1 Each by misc (non-drug; combo route) route every 10 days. 3 Each 11 10/16/2021 3 documented in this encounter Progress Notes * Tiff Soto MA - 10/16/2021 0800 EDT Fingerstick blood sample obtained for POCT Hemoglobin A1C performed for this DOS at the order of Breanna Flores MD Sending information to patient's email to share through [facility] view * Breanna Flores MD - 10/16/2021 0800 [...] time, no chest pain, no SOB. Works Bo[employer]. Patient's CGM was downloaded and I reviewed [...] Contact Info) Description 07/23/2024 16:20 EDT Telemedicine [facility] Endocrinology - [address] [address] Trini Hilario DO [address] [place] [phone] documented as of this encounter Procedures Procedure Name Priority Date/Time Associated Diagnosis Comments POCT CSN BARCODE HEMOGLOBIN A1C INT Routine 10/16/2021 9:08 EDT Type 2 diabetes mellitus with hyperglycemia, with long-term current use of insulin ([facility]) ([facility]) POCT HEMOGLOBIN A1C, INTERFACED ORDER Routine 10/16/2021 8:55 EDT Type 2 diabetes mellitus with hyperglycemia, with long-term current use of insulin ([facility]) ([facility]) POCT HEMOGLOBIN A1C, INTERFACED Routine 10/16/2021 8:55 EDT Type 2 diabetes mellitus with hyperglycemia, with long-term current use of insulin ([facility]) ([facility]) documented in this encounter Results * POCT CSN BARCODE HEMOGLOBIN A1C INT (10/16/2021 9:08 EDT) Hold Hold 10/16/2021 10:15 EDT [facility] Blood VENOUS BLOOD / Unknown 10/16/2021 9:08 EDT 10/16/2021 9:08 EDT us Breanna Flores MD LAB INFO SERVICE AND SUPPORT & PHONE RESULT Final Result Performing Organization Address City/State/[facility] Co de Phone Number [facility] [address] [place] [phone] * (ABNORMAL) POCT HEMOGLOBIN A1C, INTERFACED (10/16/2021 8:55 EDT) Hemoglobin A1c, POC 7.4(H) <5.7 % 10/16/2021 9:11 EDT [facility] Blood VENOUS BLOOD / Unknown 10/16/2021 8:55 EDT 10/16/2021 9:11 EDT Narrative [facility] - 10/16/2021 9:11 EDT For Hgb A1c values => 10%, a venous blood measurement in the main laboratory for confirmation is available. Reference Range: <5.7% Normal 5.7-6.4% Prediabetes =>6.5% Diagnostic for diabetes (if confirmed). Test performed at Endocrinology. us Breanna Flores MD POINT OF CARE TEST ORDERABLE S Final Result [facility] [address] [place] [address] documented in this encounter Visit Diagnoses Diagnosis Type 2 diabetes mellitus with hyperglycemia, with long-term current use of insulin ([facility] Primary Type 1 diabetes mellitus with hyperglycemia ([facility]) Type I (juvenile type) diabetes mellitus without [...] mg tabletIndications:Type 2 diabetes mellitus with hyperglycemia ([facility]),Mixed hyperlipidemia Take 1 Tab by mouth 2 [...] 2 times daily. If expensive- buy off [employer] Therapy completed 05/23/2016 10/16/2021 OZEMPIC 1 mg/dose (4 mg/3 mL) pen injector Inject 1 mg into the skin every 7 days. 10/02/2021 10/16/2021 glipiZIDE (GLUCOTROL) 10 mg XL tablet Take 10 mg by mouth daily. Alternate therapy 09/08/2021 10/16/2021 insulin glargine (LANTUS SOLOSTAR) 100 unit/mL (3 mL) injection penIndications:Type 2 diabetes mellitus with hyperglycemia, with long-term current use of insulin ([facility]) Inject 28 Units into the skin once daily. Reorder 09/12/2016 10/16/2021 documented as of this encounter Historical Medications * This list may reflect changes made after this encounter. medroxyPROGESTE Awais (DEPO-PROVERA) 150 mg/mL injection INJECT 1ML INTRAMUSCULARLY EVERY 3 MONTHS 09/04/2021 OZEMPIC 1 mg/dose (4 mg/3 mL) pen injector Inject 1 mg into the skin every 7 days. 10/02/2021 10/17/19 22 glipiZIDE (GLUCOTROL) 10 mg XL tablet Take 10 mg by mouth daily. 09/08/2021 10/17/19 22 gabapentin (NEURONTIN) 100 mg capsule Take 100 mg by mouth 3 times daily. 08/13/2021 07/06/19 23 FREESTYLE SELINA 2 SENSOR kit 09/14/2021 12/08/19 22 added in this encounter Care Teams Digital Production Artist Relationship Specialty Start Date End Date Che Sharpe PA [address] [place] [address] [place] [phone] PCP - General 10/16/21 Terry Hall MD [address] [place] [address] 07/02/14 documented as of this encounter
--- OUTSIDE RECORDS SUMMARY | 2024-05-15 12:59 | XMS_ITS | Encounter Summary ---
Author Organization [facility] Address [address] [place] [address] Care Team Providers Care Digital Media Director Name Role Phone Terry Hall MD Unavailable Che Sharpe Primary Care Provider + Reason for Visit * Reason Onset Date Comments Medications Refill 09/18/2022 Encounter Details Date Type Department Care Team (Late st Contact Info) Description 09/18/2022 Refill [facility] Endocrinology - [facility] [address] [place] [address] Gely Walker NP [address] [facility] [address] [place] [address] Medications Refill Social History Tobacco [...] Refills Last Filled Start Date End Date Blood-Glucose Sensor (DEXCOM G6 SENSOR) deviceIndications:T ype 2 diabetes mellitus with hyperglycemia, with long-term current use of insulin ([facility]),Type 1 diabetes mellitus with hyperglycemia ([facility]) 1 Each by misc (non-drug; combo route) route every 10 days. 3 Each 11 09/18/2022 09/09/2023 documented in this encounter Miscellaneous Notes * Telephone Encounter - Mary WallisRn), RN - 09/18/2022 1016 EDT Pt last seen 07/05/2022. * Telephone Encounter - Mindy Chan MA - 09/18/2022 1009 EDT Images from the original note were not included. We received a fax from [employer] #[id number] requesting a refill for DEXCOM G6 SENSOR. Please review appropriately thank you. documented in this encounter Plan of Treatment Upcoming Encounters Date Type Department Care Team (Late st Contact Info) Description 07/23/2024 16:20 EDT Telemedicine [facility] Endocrinology - [address] [address] Trini Hilario DO [address] [place] [phone] documented as of this encounter Visit Diagnoses Diagnosis Type 2 diabetes mellitus with hyperglycemia, with long-term current use of insulin ([facility]) Type 1 diabetes mellitus with hyperglycemia ([facility]) Type I (juvenile type) diabetes mellitus without mention of complication, not stated as uncontrolled documented in this encounter Discontinued Medications Medication Sig Discontinue Reason Start Date End Da te Blood-Glucose Sensor (DEXCOM G6 SENSOR) deviceIndications:Type 2 diabetes mellitus with hyperglycemia, with long-term current use of insulin ([facility]),Type 1 diabetes mellitus with hyperglycemia ([facility]) 1 Each by misc (non-drug; combo route) route every 10 days. Reorder 10/16/2021 09/18/2022 documented as of this encounter Care Teams Digital Media Director Relationship Specialty Start Date End Date Che Sharpe PA [address] [place] [phone] PCP - General 10/16/21 Terry Hall MD [address] [place] [address] 07/02/14 documented as of this encounter
--- OUTSIDE RECORDS SUMMARY | 2024-05-15 12:59 | XMS_ITS | Encounter Summary ---
Author Organization [facility] Address [address] [place] [address] Care Team Providers Care Broadcast Traffic Coordinator Name Role Phone Terry Hall MD Unavailable Che Sharpe Primary Care Provider + Reason for Visit * Reason Comments Medications Refill Encounter Details Date Type Department Care Team (Late st Contact Info) Description 09/16/2022 Refill [facility] Endocrinology - [facility] [address] [place] [address] Gely Walker, MIGUEL [address] [facility] [address] [place] [address] Medications Refill Social History Tobacco [...] UNITS VIA INSULIN PUMP 30 mL 09/18/2022 documented in this encounter Miscellaneous Notes * Telephone Encounter - Mary Wallis (Rn), RN - 09/18/2022 1034 EDT Pt last seen 07/05/2022. documented in this encounter Plan of Treatment Upcoming Encounters Date Type Department Care Team (Late st Contact Info) Description 07/23/2024 16:20 EDT Telemedicine [facility] Endocrinology - [address] [phone] Trini Hilario, DO [address] [place] [phone] documented as of this encounter Visit Diagnoses Not on filedocumented in this encounter Discontinued Medications Medication Sig Discontinue Reason Start Date End Da te insulin lispro (HUMALOG) 100 unit/mL vial Inject into the skin up to 75 units via insulin pump 08/10/2022 09/18/2022 documented as of this encounter Care Teams Broadcast Traffic Coordinator Relationship Specialty Start Date End Date Che Sharpe PA [address] [place] [address] [place] [address] PCP - General 10/16/21 Terry Hall MD [address] [place] [address] 07/02/14 documented as of this encounter
--- OUTSIDE RECORDS SUMMARY | 2024-05-15 12:59 | XMS_ITS | Encounter Summary ---
Author Organization [facility] Address [address] [place] [address] Care Team Providers Care Contractor Buyer Name Role Phone Terry Hall MD Unavailable Che Sharpe Primary Care Provider + Reason for Visit * Reason Onset Date Comments Medications Refill 05/29/2022 Encounter Details Date Type Department Care Team (Late st Contact Info) Description 05/29/2022 Refill [facility] Endocrinology - [facility] [address] [place] [address] Gely Walker NP [address] [facility] [address] [place] [address] Medications Refill Social History [...] units via insulin pump 30 mL 05/29/2022 3 documented in this encounter Miscellaneous Notes [...] not included. We received a fax from [employer] #[phone] requesting a refill for HUALOG 100 UNIT/ML VIAL. Please review appropriately thank you. documented in this encounter Plan of Treatment Upcoming Encounters Date Type Department Care Team (Late st Contact Info) Description 07/23/2024 16:20 EDT Telemedicine [facility] Endocrinology - [address] [phone] Trini Hilario, DO [address] [place] [phone] documented as of this encounter Visit Diagnoses Not on filedocumented in this encounter Discontinued Medications Medication Sig Discontinue Reason Start Date End Da te insulin lispro (HUMALOG) 100 unit/mL vial Inject into the skin up to 75 units via insulin pump Reorder 10/24/2021 05/29/2022 documented as of this encounter Care Teams Contractor Buyer Relationship Specialty Start Date End Date Che Sharpe PA [address] [place] [address] [place] [phone] PCP - General 10/16/21 Terry Hall MD [address] [place] [address] 07/02/14 documented as of this encounter
--- OUTSIDE RECORDS SUMMARY | 2024-05-15 12:59 | XMS_ITS | Encounter Summary ---
Author Organization [facility] Address [address] [place] [address] Care Team Providers Care Mat Weaver Name Role Phone Terry Hall MD Unavailable Che Sharpe Primary Care Provider + Reason for Visit * Reason Onset Date Comments Medications Refill 08/15/2022 Encounter Details Date Type Department Care Team (Late st Contact Info) Description 08/15/2022 Refill [facility] Endocrinology - [address] [address] Yvette Piedra V, 62 [facility] [address] [place] [address] Medications Refill Social History Tobacco [...] cartridgeIndication s:Type 1 diabetes mellitus with hyperglycemia ([facility]) Inject 1 Each into the skin every 72 hours. 30 Each 3 09/03/2022 3 documented in this encounter Miscellaneous Notes [...] a 90 day supply Pre ferred pharmacy: [facility] - [place], [place] - - [facility] documented in this encounter Plan of Treatment Upcoming Encounters Date Type Department Care Team (Late st Contact Info) Description 07/23/2024 16:20 EDT Telemedicine [facility] Endocrinology - [facility] [address] [place], [place] [phone] Trini Hilario DO [address] [place] [phone] documented as of this encounter Visit Diagnoses Diagnosis Type 1 diabetes mellitus with hyperglycemia ([facility])- Primary Type I (juvenile type) diabetes mellitus without mention of complication, not stated as uncontrolled documented in this encounter Discontinued Medications Medication Sig Discontinue Reason Start Date End Da te insulin pump cart,automated,BT (OMNIPOD 5 G6 PODS, GEN 5,) cartridgeIndications:Type 1 diabetes mellitus with hyperglycemia ([facility]) Inject 1 Each into the skin every 72 hours. Reorder 10/17/2021 08/15/2022 documented as of this encounter Care Teams Mat Weaver Relationship Specialty Start Date End Date Che Sharpe PA [address] [place] [address] [place] [phone] PCP - General 10/16/21 Terry Hall MD [address] [place] [address] 07/02/14 documented as of this encounter
--- OUTSIDE RECORDS SUMMARY | 2024-05-15 12:59 | XMS_ITS | Encounter Summary ---
Author Organization [facility] Address [address] [place] [address] Care Team Providers Care Technicians And Trades Workers Name Role Phone Terry Hall MD Unavailable Che Sharpe Primary Care Provider + Reason for Visit * Reason Onset Date Comments Results 12/05/2021 Encounter Details Date Type Department Care Team (Late st Contact Info) Description 12/05/2021 Telephone [facility] Endocrinology - [facility] [address] [place] [address] Breanna Flores MD 62 [facility] [address] [place] [phone] Results Social History Tobacco Use [...] MA sent at 12/05/2021 10:10 EDT ----- [facility] lab results documented in this encounter Plan of Treatment Upcoming Encounters Date Type Department Care Team (Late st Contact Info) Description 07/23/2024 16:20 EDT Telemedicine [facility] Endocrinology - [address] [address] Trini Hilario, [address] [place] [address] documented as of this encounter Visit Diagnoses Not on filedocumented in this encounter Care Teams Technicians And Trades Workers Relationship Specialty Start Date End Date Che Sharpe PA [address] [place] [address] [place] [phone] PCP - General 10/16/21 Terry Hall MD [address] [place] [phone] 07/02/14 documented as of this encounter
--- OUTSIDE RECORDS SUMMARY | 2024-05-15 12:59 | XMS_ITS | Encounter Summary ---
Author Organization [facility] Address [address] [place] [address] Care Team Providers Care Shop Assistant Name Role Phone Terry Hall MD Unavailable Che Sharpe Primary Care Provider + Reason for Visit * Reason Onset Date Comments DME 04/18/2023 Encounter Details Date Type Department Care Team (Late st Contact Info) Description 04/18/2023 Telephone [facility] Endocrinology - [facility] [address] [place] [address] Gely Walker, MIGUEL 62 [facility] [address] [place] [address] DME Social History Tobacco Use [...] is not connected to the clinic on glooko. I advised she try logging in and checking the settings to see if the proconnect code was entered [facility]. If it is she will need to contact [facility] for help. Camila Sewell RN [facility] Certified Diabetes Care and Med Spec * Telephone Encounter - Karen Agee RN - 04/19/2023 1620 EST This RN left a vm for patient to contact insulin pump supplier to trouble shoot. Asked she contact clinic if she is off pump and need help with off pump guideline. Routing to E pool. Karen Agee RN * Telephone Encounter - Nuria Milan - 04/18/2023 1618 EST Patient calling regarding issues with insulin pump. States it keeps going into manual mode and willnot stay in automatic. Please call back to discuss. documented in this encounter Plan of Treatment Upcoming Encounters Date Type Department Care Team (Late st Contact Info) Description 07/23/2024 16:20 EDT Telemedicine [facility] Endocrinology - [address] [phone] Trini Hilario, DO [address] [place] [phone] documented as of this encounter Visit Diagnoses Not on filedocumented in this encounter Care Teams Shop Assistant Relationship Specialty Start Date End Date Che Sharpe PA [address] [place] [address] [place] [phone] PCP - General 10/16/21 Terry Hall MD [address] [place] [phone] 07/02/14 documented as of this encounter
--- OUTSIDE RECORDS SUMMARY | 2024-05-15 12:59 | XMS_ITS | Encounter Summary ---
Author Organization [facility] Address [address] [place] [address] Care Team Providers Care Legislative Assistant Name Role Phone Terry Hall MD Unavailable Che Sharpe Primary Care Provider + Reason for Visit * Reason Onset Date Comments Blood Sugar Problem 06/21/2022 Encounter Details Date Type Department Care Team (Late st Contact Info) Description 06/21/2022 Telephone [facility] Endocrinology - [facility] [address] [place] [address] Gely Walker, MIGUEL 62 [facility] [address] [place] [address] Blood Sugar Problem Social History [...] Mayi Mayorga Endocrinology Fellow PGY-5 Pager # [phone] * Telephone Encounter - Katie Echeverria RN [...] her A1C and ketones were tested. This newspaper writer went over testing for ketones and [...] Contact Info) Description 07/23/2024 16:20 EDT Telemedicine [facility] Endocrinology - [address] [address] Trini Hilario DO [address] [place] [phone] documented as of this encounter Visit Diagnoses Not on filedocumented in this encounter Care Teams Legislative Assistant Relationship Specialty Start Date End Date Che Sharpe PA [address] [place] [address] [place] [phone] PCP - General 10/16/21 Terry Hall MD [address] [place] [address] 07/02/14 documented as of this encounter
--- OUTSIDE RECORDS SUMMARY | 2024-05-15 12:59 | XMS_ITS | Encounter Summary ---
Author Organization [facility] Address [address] [place] [address] Care Team Providers Care Electrical Engineering Technologist Name Role Phone Terry Hall MD Unavailable Che Sharpe Primary Care Provider + Encounter Details Date Type Department Care Team (Late st Contact Info) Description 06/20/2022 Lab Requisition [facility] Pathology & Laboratory Medicine - [facility] [address] [place] [address] Outr Resulting Lab, Provider Social History Tobacco [...] Telemedicine [facility] Endocrinology - [facility] [address] [place] [address] Trini Hilario DO [address] [place] [address] documented as of this encounter Procedures Procedure Name Priority Date/Time Associated Diagnosis Comments HEMOGLOBIN A1C Routine 06/20/2022 15:32 EST documented in this encounter Results * (ABNORMAL) HEMOGLOBIN A1C (06/20/2022 15:32 EST) Hemoglobin A1c 6.7(H) <5.7 % 06/21/2022 11:22 EST [facility] Comment: Glycemic Status References: Normal: ??<5.7% Pre-Diabetes: ??5.7% - 6.4% Diagnostic of Diabetes: ??> or = 6.5% (if confirmed) Est Avg Glucose 146 mg/dL 11:22 EST [facility] Comment:The eAG represents t he A1c result expressed as average glucose in mg/dL. Blood VENOUS BLOOD / Unknown 06/20/2022 15:32 EST 06/20/2022 22:25 EST us Provider Outr Resulting Lab CHEMISTRY & BLOOD GA S ORDERABLES Final Result [facility] [address] [place] [address] documented in this encounter Visit Diagnoses Not on filedocumented in this encounter Care Teams Electrical Engineering Technologist Relationship Specialty Start Date End Date Yasewicz, Che C, PA [address] [place] [address] [place] [phone] PCP - General 10/16/21 Terry Hall MD [address] [place] [address] 07/02/14 documented as of this encounter
--- OUTSIDE RECORDS SUMMARY | 2024-05-15 12:59 | XMS_ITS | Encounter Summary ---
Author Organization [facility] Address [address] [place] [address] Care Team Providers Care Transverse Abdominal Muscle Surgeon Name Role Phone Terry Hall MD Unavailable Che Sharpe Primary Care Provider + Reason for Visit * Reason Comments Diabetes Encounter Details Date Type Department Care Team (Latest Contact Info) Description 12/07/2021 11:00 EDT Telemedicine [facility] Endocrinology - [facility] [address] [place] [address] Breanna Flores MD 62 [facility] [address] [place] [address] Type 2 diabetes mellitus with hyperglycemia, with long-term current use of insulin ([facility] ([facility]) (Primary Dx) Social History Tobacco Use [...] documented in this encounter Progress Notes * Breanna Flores [...] Home Patient location state: Visit Location State: [place] The location of the provider: Office Provider location state: Visit Location State: [place] The following people and their roles were [...] and had recently started Humalog. Works at [employer] At our last visit we discussed getting [...] hyperglycemia, with long-term current use of insulin ([facility]) ([facility]) PMH PSH Past Medical History: Diagnosis Date [...] Telemedicine [facility] Endocrinology - [place] [place] [address] Trini Hilario DO [address] [place] [phone] documented as of this encounter Visit Diagnoses Diagnosis Type 2 diabetes mellitus with hyperglycemia, with long-term current use of insulin ([facility])- Primary documented in this encounter Discontinued Medications Medication Sig Discontinue Reason Start Date End Da te FREESTYLE ASHLEY 2 SENSOR kit Therapy completed 09/14/2021 12/07/2021 insulin lispro (HUMALOG KWIKPEN) 100 unit/mL injectable pen Inject 8 Units into the skin 3 times daily with meals. Therapy completed 10/20/2021 12/07/2021 documented as of this encounter Care Teams Transverse Abdominal Muscle Surgeon Relationship Specialty Start Date End Date Che Sharpe PA [address] [place] [address] [place] [address] PCP - General 10/16/21 Terry Hall MD [address] [place] [phone] 07/02/14 documented as of this encounter
--- OUTSIDE RECORDS SUMMARY | 2024-05-15 12:59 | XMS_ITS | Encounter Summary ---
Author Organization [facility] Address [address] [place] [address] Care Team Providers Care Stand Up Forklift Operator Name Role Phone Terry Hall MD Unavailable Yehuda Stallworth DO Primary Care Provider Che Sharpe Primary Care Provider + Encounter Details Date Type Department Care Team (Late st Contact Info) Description 02/08/2021 Lab Requisition [facility] Pathology & Laboratory Medicine - [facility] [address] [place], [place] [phone] Outr Resulting Lab, Provider Social History Tobacco [...] Info) Description 07/23/2024 16:20 EDT Telemedicine [facility] Endocrinology - [address] [place] [address] Trini Hilario DO [address] [place] [address] documented as of this encounter Procedures Procedure Name Priority Date/Time Associated Diagnosis Comments ZZCOVID-19 TEST [facility] PCR Today 02/08/2021 11:24 EDT COVID-19 TESTING Routine 02/08/2021 11:2 4 EDT documented in this encounter Results * COVID-19 TEST [facility] PCR (02/08/2021 11:24 EDT) Swab ENTIRE NASOPHARYNX / Unknown 02/08/2021 11:24 EDT 02/08/2021 21:10 EDT us Provider Outr Resulting Lab MICROBIOLOGY - GENER AL ORDERABLES Final Result [facility] [address] [place] [address] * COVID-19 TESTING (02/08/2021 11:24 EDT) COVID-19 rt-PCR Result Negative Negative 02/09/2021 11:07 EDT [facility] Comment: This test has not been FDA cleared or approved. This test has been authorized by FDA under an EUA for use by authorized laboratories. This test has been authorized only for detection of nucleic acid from 2018-, not for any other viruses or pathogens. [...] was performed using the luis SARS-CoV-2 assay ([employer] on the Luis 6800 System Performing Lab Luis 6800 [facility] 02/09/2021 11:07 EDT [facility] Swab 02/08/2021 11:2 4 EDT 02/08/2021 21:10 EDT us Provider Outr Resulting Lab MICROBIOLOGY - GENER AL ORDERABLES Final Result [facility] [address] [place] [address] documented in this encounter Visit Diagnoses Not on filedocumented in this encounter Care Teams Stand Up Forklift Operator Relationship Specialty Start Date End Date Yehuda Stallworth DO [address] [place] [phone] PCP - General 05/15/16 10/15/21 Che Sharpe PA [address] [place] [address] [place] [phone] PCP - General 10/16/21 Terry Hall MD [address] [place] [phone] 07/02/14 documented as of this encounter
--- OUTSIDE RECORDS SUMMARY | 2024-05-15 12:59 | XMS_ITS | Encounter Summary ---
Author Organization [facility] Address [address] [place] [address] Care Team Providers Care General Foreman Name Role Phone Terry Hall MD Unavailable Che Sharpe Primary Care Provider + Reason for Visit * Reason Comments Diabetes Encounter Details Date Type Department Care Team (Latest Contact Info) Description 07/05/2022 15:30 EDT Telemedicine [facility] Endocrinology - [facility] [address] [place] [address] Gely Walker, MIGUEL 62 [facility] [address] [place] [address] Type 2 diabetes mellitus with hyperglycemia, with long-term current use of insulin ([facility]) (Primary Dx) Social History Tobacco Use [...] in this encounter Progress Notes * Gely Walker NP - 07/05/2022 1530 EDT TELEMEDICINE VIDEO VISIT Today's visit was provided through telemedicine video conferencing: I have reviewed the appropriateness of using video technology with the patient with regards to today's visit. The location of the patient : Home Patient location state: Visit Location State: [place] The location of the provider: Home Office Provider location state: Visit Location State: [place] The following people and their roles were [...] copays, deductible or coinsurance for this service. [facility] Diabetes Follow-Up Note Chief Complaint Patient [...] 4.8 oz) Patient is UTD with eye healthcare representative for annual dilated eye exam: Yes PHYSICAL EXAMINATION: Vitals: There were no vitals taken for this visit. BMI: There is no height or weight on file to calculate BMI. Physical Exam General: alert oriented x4, not in acute distress Breathing: unlabored on room air, normal effort, COMMERCIAL BAKER HELPER :no gross neurological deficits identified Psych: Normal [...] hyperglycemia, with long-term current use of insulin ([facility]) ([facility]) A1c 6.7 Fantastic progress Will adjust I:Carb [...] with long- term current use of insulin (HCC-CMS) ([facility]) A1c 6.7 Fantastic progress Will adjust I:Carb [...] Contact Info) Description 07/23/2024 16:20 EDT Telemedicine [facility] Endocrinology - [address] [address] Trini Hilario, DO [address] [place] [phone] documented as of this encounter Visit Diagnoses [...] documented as of this encounter Care Teams General Foreman Relationship Specialty Start Date End Date Che Sharpe PA [address] [place] [address] [place] [phone] PCP - General 10/16/21 Terry Hall MD [address] [place] [address] [phone] 07/02/14 documented as of this encounter
--- OUTSIDE RECORDS SUMMARY | 2024-05-15 12:59 | XMS_ITS | Encounter Summary ---
Author Organization [facility] Address [address] [place] [address] Care Team Providers Care Manufacturing Project Engineer Name Role Phone Terry Hall MD Unavailable Che Sharpe Primary Care Provider + Reason for Visit * Reason Onset Date Comments Medications Refill 11/06/2022 Encounter Details Date Type Department Care Team (Late st Contact Info) Description 11/06/2022 Refill [facility] Endocrinology - [facility] [address] [place] [address] Gely Walker NP 62 [facility] [address] [place] [address] Medications Refill Social History Tobacco [...] Last Filled Start Date End Date Blood-Glucose Transmitter (DEXCOM G6 TRANSMITTER) deviceIndications:T ype 2 diabetes mellitus with hyperglycemia, with long-term current use of insulin ([facility]),Type 1 diabetes mellitus with hyperglycemia ([facility]) 1 Each by misc (non-drug; combo route) route every 3 months. 1 Each 3 11/06/2022 09/09/2023 documented in this encounter Miscellaneous Notes * Telephone Encounter - Mary Wallis (Rn), RN - 11/06/2022 1311 EDT Pt last seen 07/05/2022. * Telephone Encounter - Sherlyn Preston MA - 11/06/2022 1256 EDT Images from the original note were not included. We received a fax from [employer] requesting a refill for Dexcom G6 Transmitter. Please review appropriately. documented in this encounter Plan of Treatment Upcoming Encounters Date Type Department Care Team (Late st Contact Info) Description 07/23/2024 16:20 EDT Telemedicine [facility] Endocrinology - [address] [address] Trini Hilario DO [address] [place] [phone] documented as of this encounter Visit Diagnoses Diagnosis Type 2 diabetes mellitus with hyperglycemia, with long-term current use of insulin ([facility]) Type 1 diabetes mellitus with hyperglycemia ([facility]) Type I (juvenile type) diabetes mellitus without mention of complication, not stated as uncontrolled documented in this encounter Discontinued Medications Medication Sig Discontinue Reason Start Date End Da te Blood-Glucose Transmitter (DEXCOM G6 TRANSMITTER) deviceIndications:Type 2 diabetes mellitus with hyperglycemia, with long-term current use of insulin ([facility]),Type 1 diabetes mellitus with hyperglycemia ([facility]) 1 Each by misc (non-drug; combo route) route every 3 months. Reorder 10/16/2021 11/06/2022 documented as of this encounter Care Teams Manufacturing Project Engineer Relationship Specialty Start Date End Date Che Sharpe PA [address] [place] [address] [place] [address] PCP - General 10/16/21 Terry Hall MD [address] [place] [phone] 07/02/14 documented as of this encounter
--- OUTSIDE RECORDS SUMMARY | 2024-05-15 12:59 | XMS_ITS | Encounter Summary ---
Author Organization [facility] Address [address] [place] [address] Care Team Providers Care Program Checker Name Role Phone Terry Hall MD Unavailable Che Sharpe Primary Care Provider + Reason for Visit * Reason Onset Date Comments Medication Management 10/26/2021 Follow-up 10/30/2021 Encounter Details Date Type Department Care Team (Late st Contact Info) Description 10/26/2021 Telephone [facility] Endocrinology - [facility] [address] [place] [address] Breanna Flores MD 62 [facility] [address] [place] [address] Medication Management; Follow-up Social History [...] therapy orders completed and forwarded to Dr. Flores for signature. * Telephone Encounter - Juan [...] Description 07/23/2024 16:20 EDT Telemedicine [facility] Endocrinology - [address] [phone] Trini Hilario, DO [address] [place] [phone] documented as of this encounter Visit Diagnoses Not on filedocumented in this encounter Care Teams Program Checker Relationship Specialty Start Date End Date Che Sharpe PA [address] [place] [address] [place] [phone] PCP - General 10/16/21 Terry Hall MD [address] [place] [phone] 07/02/14 documented as of this encounter
--- OUTSIDE RECORDS SUMMARY | 2024-05-15 12:59 | XMS_ITS | Encounter Summary ---
Author Organization [facility] Address [address] [place] [address] Care Team Providers Care New Car Sales Manager Name Role Phone Terry Hall MD Unavailable Che Sharpe Primary Care Provider + Encounter Details Date Type Department Care Team (Late st Contact Info) Description 10/17/2021 Orders Only [facility] Endocrinology - [facility] [address] [place] [address] Breanna Flores MD 62 [facility] [address] [place] [address] Type 1 diabetes mellitus with [...] Filled Start Date End Date insulin pump cart,auto,BT-cntr (OMNIPOD 5 G6 INTRO KIT, GEN 5,) cartridgeIndication s:Type 1 diabetes mellitus with hyperglycemia (HCC-CMS) Inject 1 Each into the skin once for 1 dose. 1 Each 10/17/2021 insulin pump cart,automated,BT (OMNIPOD 5 G6 PODS, GEN 5,) cartridgeIndication s:Type 1 diabetes mellitus with hyperglycemia (HCC-CMS) Inject 1 Each into the skin every 72 hours. 10 Each 11 10/17/2021 3 documented in this encounter Plan of Treatment Upcoming Encounters Date Type Department Care Team (Late st Contact Info) Description 07/23/2024 16:20 EDT Telemedicine [facility] Endocrinology - [address] [phone] Trini Hilario DO [address] [place] [phone] documented as of this encounter Visit Diagnoses Diagnosis Type 1 diabetes mellitus with hyperglycemia (HCC-CMS)- Primary Type I (juvenile type) diabetes mellitus without mention of complication, not stated as uncontrolled documented in this encounter Care Teams New Car Sales Manager Relationship Specialty Start Date End Date Che Sharpe PA [address] [place] [address] [place] [phone] PCP - General 10/16/21 Terry Hall MD [address] [place] [phone] 07/02/14 documented as of this encounter
--- OUTSIDE RECORDS SUMMARY | 2024-05-15 12:59 | XMS_ITS | Encounter Summary ---
Author Organization [facility] Address [address] [place] [address] Care Team Providers Care Photographer Portrait Name Role Phone Terry Hall MD Unavailable Che Sharpe Primary Care Provider + Reason for Referral * Consult (Routine/Next Available) - Specialty Report Received Specialty Diagnoses / Procedures Referred By Luana landon Referred To Contact Endocrinology Diagnoses Type 2 diabetes mellitus with hyperglycemia, with long-term current use of insulin ([facility]) Mikayla Barajas DO Phone: tel: fax: [facility] Endocrinology - [address] [address] Phone: tel: fax: Referral ID Status Reason Start Date Expiration Date Visits Requested Visits Authorized [id number] Specialty Report Received Specialty Services Required 07/05/2022 [...] st Contact Info) Description 07/05/2022 Orders Only [facility] Endocrinology - [facility] [address] [place] [address] Gely Walker NP [address] [phone] Type 2 diabetes mellitus with hyperglycemia, with long-term current use of insulin ([facility]) (Primary Dx) Social History Tobacco Use Types [...] EDT Telemedicine [facility] Endocrinology - [place] [place] [address] Trini Hilario DO [address] [place] [phone] Scheduled Referrals Name Type Priority Associated Diagnoses Order Schedule AMB CONS/FOLLOW UP DIABETES EDUCATION/MED NUTRITION THERAPY Outpatient Referral Routine/Next Available Type 2 diabetes mellitus with hyperglycemia, with long-term current use of insulin ([facility]) Expected: 08/05/2022 (Approximate) documented as of this encounter Visit Diagnoses Diagnosis Type 2 diabetes mellitus with hyperglycemia, with long-term current use of insulin ([facility])- Primary documented in this encounter Care Teams Photographer Portrait Relationship Specialty Start Date End Date Che Sharpe PA [address] [place] [address] [place] [phone] PCP - General 10/16/21 Terry Hall MD [address] [place] [phone] 07/02/14 documented as of this encounter
--- OUTSIDE RECORDS SUMMARY | 2024-05-15 13:00 | XMS_ITS | Encounter Summary ---
Author Organization [facility] Address [address] [place] [address] Care Team Providers Care Resident Doctor Name Role Phone Terry Hall MD Unavailable Yehuda Stallworth DO Primary Care Provider Reason for Visit * Reason Onset Date Comments Medication Questions 10/03/2016 byduriclarissa pe n Encounter Details Date Type Department Care Team (Late st Contact Info) Description 10/03/2016 Telephone [facility] Endocrinology - [facility] [address] [place] [address] Greta Galicia NP 62 [facility] [address] [place] [address] Medication Questions (bydurian pen) Social History Tobacco Use Types Packs/Day Years Used Date Smoking Tobacco: Former Alcohol Use Standard Drinks/Week Comments Not Asked 0 (1 standard drink = 0.6 oz pur e alcohol) Comments No Sex and Gender Information Value [...] Info) Description 07/23/2024 16:20 EDT Telemedicine [facility] Endocrinology - [address] [phone] Trini Hilario DO [address] [place] [address] documented as of this encounter Visit Diagnoses Not on filedocumented in this encounter Care Teams Resident Doctor Relationship Specialty Start Date End Date Yehuda Stallworth DO [address] [place] [phone] PCP - General 05/15/16 10/15/21 Terry Hall MD [address] [place] [phone] 07/02/14 documented as of this encounter
--- OUTSIDE RECORDS SUMMARY | 2024-05-15 13:00 | XMS_ITS | Encounter Summary ---
Author Organization [facility] Address [address] [place] [address] Care Team Providers Care Tomato Pulper Operator Name Role Phone Terry Hall MD Unavailable Yehuda Stallworth DO Primary Care Provider Encounter Details Date Type Department Care Team (Late st Contact Info) Description 10/26/2016 Orders Only [facility] Endocrinology - [facility] [address] [place] [address] Greta Galicia NP 62 [facility] [address] [place] [address] Type 2 diabetes mellitus with hyperglycemia, with long-term current use of insulin ([facility] (Primary Dx) Social History Tobacco Use Types [...] Refills Last Filled Start Date End Date blood glucose (FREESTYLE INSULINX) test stripsIndications: Type 2 diabetes mellitus with hyperglycemia, with long-term current use of insulin ([facility]) Use 4 Strips as directed daily. 360 Each 3 10/26/2016 8 documented in this encounter Plan of Treatment Upcoming Encounters Date Type Department Care Team (Late st Contact Info) Description 07/23/2024 16:20 EDT Telemedicine [facility] Endocrinology - [address] [address] Trini Hilario DO [address] [place] [phone] documented as of this encounter Visit Diagnoses Diagnosis Type 2 diabetes mellitus with hyperglycemia, with long-term current use of insulin ([facility])- Primary documented in this encounter Discontinued Medications Medication Sig Discontinue Reason Start Date End Da te exenatide microspheres 2 mg suspension,extended rel reconIndications:Type 2 diabetes mellitus with hyperglycemia, with long-term current use of insulin ([facility]) Inject 2 mg into the skin every 7 days. Please instruct Pt on pen use 09/19/2016 10/26/2016 documented as of this encounter Care Teams Tomato Pulper Operator Relationship Specialty Start Date End Date Yehuda Stallworth DO [address] [place] [phone] PCP - General 05/15/16 10/15/21 Terry Hall MD [address] [place] [phone] 07/02/14 documented as of this encounter
--- OUTSIDE RECORDS SUMMARY | 2024-05-15 13:00 | XMS_ITS | Encounter Summary ---
Author Organization [facility] Address [address] [place] [address] Care Team Providers Care Nuclear Process Engineer Name Role Phone Terry Hall MD Unavailable Yehuda Stallworth DO Primary Care Provider Che Sharpe Primary Care Provider + Encounter Details Date Type Department Care Team (Late st Contact Info) Description 12/31/2020 Lab Requisition [facility] Pathology & Laboratory Medicine - [facility] [address] [place], [place] [phone] Outr Resulting Lab, Provider Social History Tobacco [...] Contact Info) Description 07/23/2024 16:20 EDT Telemedicine [facility] Endocrinology - [facility] [address] [place] [address] Trini Hilario DO [address] [place] [address] documented as of this encounter Procedures Procedure Name Priority Date/Time Associated Diagnosis Comments ZZCOVID-19 TEST [facility] PCR Today 12/31/2020 9:17 EDT COVID-19 TESTING Routine 12/31/2020 9:17 EDT documented in this encounter Results * COVID-19 TEST [facility] PCR (12/31/2020 9:17 EDT) Swab ENTIRE NASOPHARYNX / Unknown 12/31/2020 9:17 EDT 01/01/2021 16:19 EDT us Provider Outr Resulting Lab MICROBIOLOGY - GENER AL ORDERABLES Final Result [facility] [address] [place] [address] * COVID-19 TESTING (12/31/2020 9:17 EDT) COVID-19 rt-PCR Result Negative Negative 01/02/2021 12:03 EDT [facility] Comment: This test has not [...] was performed using the luis SARS-CoV-2 assay ([employer] on the Luis 6800 System Performing Lab Luis 6800 [facility] 01/02/2021 12:03 EDT [facility] Swab 12/31/2020 9:17 EDT 01/01/2021 16:19 EDT us Provider Outr Resulting Lab MICROBIOLOGY - GENER AL ORDERABLES Final Result [facility] [address] [place] [address] documented in this encounter Visit Diagnoses Not on filedocumented in this encounter Care Teams Nuclear Process Engineer Relationship Specialty Start Date End Date Yehuda Stallworth DO [address] [place] [phone] PCP - General 05/15/16 10/15/21 Che Sharpe PA [address] [place] [address] [place] [phone] PCP - General 10/16/21 Terry Hall MD [address] [place] [phone] 07/02/14 documented as of this encounter
--- OUTSIDE RECORDS SUMMARY | 2024-05-15 13:00 | XMS_ITS | Encounter Summary ---
Author Organization [facility] Address [address] [place] [address] Care Team Providers Care Wetlands Technician Name Role Phone Terry Hall MD Unavailable Yehuda Stallworth DO Primary Care Provider Reason for Visit * Reason Onset Date Comments Prior Auth, Medication 09/21/2016 Encounter Details Date Type Department Care Team (Late st Contact Info) Description 09/21/2016 Telephone [facility] Endocrinology - [facility] [address] [place] [address] Greta Galicia NP 62 [facility] [address] [place] [address] Prior Auth, Medication Social History [...] up by patient * Telephone Encounter - Teresita Dunne - 09/21/2016 1508 EDT Rcvd fax from pharmacy indicating PA is required for Bydureon - completed [place] Medicaid PA Request form and e-filed using [facility] to initiate this process. documented in this encounter Plan of Treatment Upcoming Encounters Date Type Department Care Team (Late st Contact Info) Description 07/23/2024 16:20 EDT Telemedicine [facility] Endocrinology - [address] [address] Trini Hilario DO [address] [place] [phone] documented as of this encounter Visit Diagnoses Not on filedocumented in this encounter Care Teams Wetlands Technician Relationship Specialty Start Date End Date Yehuda Stallworth DO [address] [place] [phone] PCP - General 05/15/16 10/15/21 Terry Hall MD [address] [place] [phone] 07/02/14 documented as of this encounter
--- OUTSIDE RECORDS SUMMARY | 2024-05-15 13:00 | XMS_ITS | Encounter Summary ---
Author Organization [facility] Address [address] [place] [address] Care Team Providers Care Enterprise Infrastructure Architect Name Role Phone Terry Hall MD Unavailable Yehuda Stallworth DO Primary Care Provider Reason for Visit * Reason Onset Date Comments Prior Auth, Medication 09/02/2017 Encounter Details Date Type Department Care Team (Late st Contact Info) Description 09/02/2017 Telephone [facility] Endocrinology - [facility] [address] [place] [address] Greta Galicia NP 62 [facility] [address] [place] [address] Prior Auth, Medication Social History [...] no PA needed. * Telephone Encounter - FlaglerTeresita - 09/02/2017 1102 EDT Rcvd fax from [facility] indicating pharmacy initiated PA for Trulicity 0.75 mg/0.5 mL pen-injector Estrada: [id number] documented in this encounter Plan of Treatment Upcoming Encounters Date Type Department Care Team (Late st Contact Info) Description 07/23/2024 16:20 EDT Telemedicine [facility] Endocrinology - [address] [address] Trini Hilario DO [address] [place] [phone] documented as of this encounter Visit Diagnoses Not on filedocumented in this encounter Care Teams Enterprise Infrastructure Architect Relationship Specialty Start Date End Date Yehuda Stallworth DO [address] [place] [phone] PCP - General 05/15/16 10/15/21 Terry Hall MD [address] [place] [address] 07/02/14 documented as of this encounter
--- OUTSIDE RECORDS SUMMARY | 2024-05-15 13:00 | XMS_ITS | Encounter Summary ---
Author Organization [facility] Address [address] [place] [address] Care Team Providers Care Diesel Engine Tester Name Role Phone Terry Hall MD Unavailable Unknown, Provider MD Primary Care Provider Unava ilable Encounter Details Date Type Department Care Team (Late st Contact Info) Description 05/01/2016 Orders Only [facility] Endocrinology - [facility] [address] [place] [address] Greta Galicia NP 62 [facility] [address] [place] [address] Type 1 diabetes mellitus without complication (CMS-HCC) (Primary Dx) Social History Tobacco Use Types [...] shopping? Answer Date of Assessment Author No 08/10/2015 13:22 EDT documented as of this encounter Mental Status * Because of a physical, mental, or emotional condition, does this person have serious difficulty concentrating, remembering, or making decisions? Answer Entry Date Author No 08/10/2015 13:22 EDT documented in this encounter Plan of Treatment Upcoming Encounters Date Type Department Care Team (Late st Contact Info) Description 07/23/2024 16:20 EDT Telemedicine [facility] Endocrinology - [place] [address] [place] [address] Trini Hilario DO [address] [place] [phone] documented as of this encounter Results * (ABNORMAL) POCT HEMOGLOBIN A1C (05/15/2016 14:46 EST) Hemoglobin A1C, POC Interfaced 7.4(H) <5.7 % 05/15/2016 15:[address] [facility] weed science research technician ID [id number] 05/15/2016 15:[address] [facility] Comment:Test performed at En docrinology Blood specimen (specimen) BLOOD SPECIMEN / Unknown 05/15/2016 14:46 EST 05/15/2016 15:11 EST Greta Galicia DIETETIC TECHNICIAN REGISTERED POINT OF CARE TEST ORDERABL ES Final Result [facility] [address] [place] [address] documented in this encounter Visit Diagnoses Diagnosis Type 1 diabetes mellitus without complication ([facility])- Primary Type I (juvenile type) diabetes mellitus without mention of complication, not stated as uncontrolled documented in this encounter Care Teams Diesel Engine Tester Relationship Specialty Start Date End Date Vazquez, MD Simone [address] [place] [address] PCP - General 10/17/15 05/14/16 Terry Hall MD [address] [place] [address] 07/02/14 documented as of this encounter
--- OUTSIDE RECORDS SUMMARY | 2024-05-15 13:00 | XMS_ITS | Encounter Summary ---
Author Organization [facility] Address [address] [place] [address] Care Team Providers Care Relay Man Name Role Phone Terry Hall MD Unavailable Yehuda Stallworth DO Primary Care Provider Che Sharpe Primary Care Provider + Encounter Details Date Type Department Care Team (Late st Contact Info) Description 08/09/2020 Lab Requisition [facility] Pathology & Laboratory Medicine - [facility] [address] [place], [place] [phone] Outr Resulting Lab, Provider Social History Tobacco [...] Contact Info) Description 07/23/2024 16:20 EDT Telemedicine [facility] Endocrinology - [place] [address] [place] [address] Trini Hilario DO [address] [place] [phone] documented as of this encounter [...] 4th Generation Negative Negative 08/10/2020 10:11 EDT [facility] Comment: If acute HIV-1 infection is suspected in a high risk ??patient, submit plasma specimen for HIV-1 RNA quantitation test. Fourth Generation assay performed on the Siemens Centaur. Blood VENOUS BLOOD / Unknown 08/09/2020 9:46 EDT 08/09/2020 21:13 EDT us Provider Outr Resulting Lab IMMUNOLOGY AND SEROL OGY ORDERABLES Final Result [facility] [address] [place] [address] * HEPATITIS C AB W REFLEX TO HCV RNA BY PCR (08/09/2020 9:46 EDT) Hep C Antibody Negative Negative 08/10/2020 9:48 EDT [facility] Blood VENOUS BLOOD / Unknown 08/09/2020 9:46 EDT 08/09/2020 21:13 EDT us Provider Outr Resulting Lab CHEMISTRY & BLOOD GA S ORDERABLES Final Result [facility] [address] [place] [address] * HEPATITIS B SURFACE ANTIGEN (08/09/2020 9:46 EDT) Hep B Surface Ag Negative Negative 08/10/2020 9:39 EDT [facility] Blood VENOUS BLOOD / Unknown 08/09/2020 9:46 EDT 08/09/2020 21:13 EDT us Provider Outr Resulting Lab CHEMISTRY & BLOOD GA S ORDERABLES Final Result Performing Organization Address City/[facility]/ZIP Co de Phone Number [facility] [address] [place] [address] documented in this encounter Visit Diagnoses Not on filedocumented in this encounter Care Teams Relay Man Relationship Specialty Start Date End Date Yehuda Stallworth DO [address] [place] [phone] PCP - General 05/15/16 10/15/21 Che Sharpe PA [address] [place] [address] [place] [phone] PCP - General 10/16/21 Terry Hall MD [address] [place] [phone] 07/02/14 documented as of this encounter
--- OUTSIDE RECORDS SUMMARY | 2024-05-15 13:00 | XMS_ITS | Encounter Summary ---
Author Organization [facility] Address [address] [place] [address] Care Team Providers Care Brick Washer Name Role Phone Terry Hall MD Unavailable Yehuda Stallworth DO Primary Care Provider Reason for Visit * Reason Onset Date Comments Medication Problem 10/25/2016 Encounter Details Date Type Department Care Team (Late st Contact Info) Description 10/25/2016 Telephone [facility] Endocrinology - [facility] [place] [facility] [address] [place] [address] Greta Galicia NP 62 [facility] [address] [place] [address] Medication Problem Social History Tobacco [...] titrate lantus. She will self refer to [facility] since she is now living in [place] Pt verbalized understanding. * Telephone Encounter - Greta Galicia NP - 10/25/2016 1626 EDT Tried to call Pt, Re: N/V from Bydureon. Left message. Stop Bydureon. Will take a week for drug to leave system. Please call with blood sugars as well as current GI Sx. Restart Lantus when blood sugars rise over 150. Additionally following message was not conveyed to Pt: Consider CMP and Lipase if Sx persist, ER visit if severe dehydration * Telephone Encounter - Greta Galicia NP - 10/25/2016 1622 EDT Tried to call Pt, Re: N/V from [facility]. Left message. Stop Bydureon. Will take a [...] diarrhea, HATCH . Her previous notes from [facility] indicate not totake Lantus if BG <150. [...] Contact Info) Description 07/23/2024 16:20 EDT Telemedicine [facility] Endocrinology - [place] [address] [place] [address] Trini Hilario DO [address] [place] [phone] documented as of this encounter Visit Diagnoses Not on filedocumented in this encounter Care Teams Brick Washer Relationship Specialty Start Date End Date Yehuda Stallworth DO [address] [place] [phone] PCP - General 05/15/16 10/15/21 Terry Hall MD [address] [place] [address] 07/02/14 documented as of this encounter
--- OUTSIDE RECORDS SUMMARY | 2024-05-15 13:00 | XMS_ITS | Encounter Summary ---
Author Organization [facility] Address [address] [place] [address] Care Team Providers Care Felt Coverer Name Role Phone Terry Hall MD Unavailable Yehuda Stallworth DO Primary Care Provider Reason for Referral * Consult (Routine/Next Available) - Closed Specialty Diagnoses / Procedures Referred By Contac t Referred To Contact Dermatology Diagnoses Type 2 diabetes mellitus without complication, with long-term current use of insulin ([facility]) Dermatitis Greta Galicia NP Phone: tel: fax: [facility] Dermatology 5th Floor [facility] [address] [place] [address] Phone: tel: fax: Referral ID Status Reason Start Date Expiration Date V isits Requested Visits Authorized [id number] Closed Specialty Services Required 05/15/2016 1 1 Question Answer Reason for Request: T2 Diabetes right heal cracking dry. Using lotrimin, Eucerin, improves slightly but never resolves * Consult (Routine/Next Available) - Closed Specialty Diagnoses / Procedures Referred By Contac t Referred To Contact Ophthalmology Diagnoses Type 2 diabetes mellitus without complication, with long-term current use of insulin ([facility]) Greta Galicia NP Phone: tel: fax: [facility] Ophthalmology - Main [address] [address] Phone: tel: fax: Referral ID Status Reason Start Date Expiration Date V isits Requested Visits Authorized [id number] Closed Specialty Services Required 05/15/2016 1 1 Question Answer Reason for Request: Other, in comments field Specify which eye: Both Onset/Duration (new problem)? routine DM eye exam Contact lens wearer? No Reason for Visit * Reason Comments Diabetes Encounter Details Date Type Department Care Team (Latest Contact Info) Description 05/15/2016 15:40 EST Office Visit [facility] Endocrinology - [facility] [address] [place] [address] Greta Galicia NP 62 [facility] [address] [place] [address] Type 2 diabetes mellitus without complication, with long-term current use of insulin ([facility]) (Primary Dx); Dermatitis Social History Tobacco Use [...] EST documented in this encounter Functional Status * Because of a physical, mental, or emotional condition, does this person have difficulty doing errands alone such as visiting a doctor's office or shopping? Answer Date of Assessment Author No 05/15/2016 14:59 EST documented as of this encounter Mental Status * Because of a physical, mental, or emotional condition, does this person have serious difficulty concentrating, remembering, or making decisions? Answer Entry Date Author No 05/15/2016 14:59 EST documented in this encounter Patient Instructions [...] diet balanced in Calories, Protein, and carbohydrates Assistant Public Defender needed: Keep working at it, no consult [...] Plan and call the Diabetes Center at [phone] for questions or concerns about your blood [...] 2 Diabetes. Diabetes diagnosed 2004. Initially from [place] moved back to [place] last year from [place]. Due to marital problems, now . Raising 2 daughters. Pt working at [employer] at [facility]. Now has boyfriend. Switched to split mix [...] other subspecialties: Has established a PCP in [place] Changes in other pertinent medications: No. 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 She has 2 pre-teenage daughters. Not [...] Rubber Swelling and Rash labs done at [facility] 07/2014 creatinine 0.71, GFR greater than 60, [...] diet balanced in Calories, Protein, and carbohydrates Assistant Public Defender needed: Keep working at it, no consult [...] Plan and call the Diabetes Center at [phone] for questions or concerns about your blood [...] Contact Info) Description 07/23/2024 16:20 EDT Telemedicine [facility] Endocrinology - [address] [address] Trini Hilario DO [address] [place] [phone] Scheduled Referrals Name Type Priority Associated Diagnoses Order Schedule AMB CONS/FOLLOW UP OPHTHALMOLOGY Outpatient Referral Routine Type 2 Diabetes Mellitus Without Complication, With Long-Term Current Use Of Insulin ([facility]) Ordered: 05/15/2016 AMB CONS/FOLLOW UP DERMATOLOGY Outpatient Referral Routine Type 2 Diabetes Mellitus Without Complication, With Long-Term Current Use Of Insulin ([facility]) Dermatitis Ordered: 05/15/2016 documented as of this encounter Procedures Procedure Name Priority Date/Time Associated Diagnosis Comments POCT HEMOGLOBIN A1C, INTERFACED Routine 05/15/2016 14:46 EST documented in this encounter Results * (ABNORMAL) POCT HEMOGLOBIN A1C (09/12/2016 16:57 EDT) Hemoglobin A1C, POC Interfaced 8.3(H) <5.7 % 09/12/2016 17:08 EDT [facility] plant senior manager ID [id number] 09/12/2016 17:08 EDT [facility] Comment:Test performed at En docrinology Blood specimen (specimen) BLOOD SPECIMEN / Unknown 09/12/2016 16:57 EDT 09/12/2016 17:08 EDT Greta Galicia NP POINT OF CARE TEST ORDERABL ES Final Result Performing Organization Address [facility] Co de Phone Number [facility] [address] [place] [phone] * (ABNORMAL) POCT HEMOGLOBIN A1C (05/15/2016 14:46 EST) Hemoglobin A1C, POC Interfaced 7.4(H) <5.7 % 05/15/2016 15:11 EST [facility] plant senior manager ID [id number] 05/15/2016 15:11 EST [facility] Comment:Test performed at En docrinology Blood specimen (specimen) BLOOD SPECIMEN / Unknown 05/15/2016 14:46 EST 05/15/2016 15:11 EST us Greta Galicia NP POINT OF CARE TEST ORDERABL ES Final Result Performing Organization Address City/[facility]/ZIP Co de Phone Number [facility] [address] [place] [address] documented in this encounter Visit Diagnoses Diagnosis Type 2 diabetes mellitus without complication, with long-term current use of insulin ([facility])- Primary Dermatitis Contact dermatitis and other eczema, due to unspecified cause documented in this encounter Care Teams Felt Coverer Relationship Specialty Start Date End Date Yehuda Stallworth DO [address] [place] [phone] PCP - General 05/15/16 10/15/21 Terry Hall MD [address] [place] [phone] 07/02/14 documented as of this encounter
--- OUTSIDE RECORDS SUMMARY | 2024-05-15 13:00 | XMS_ITS | Encounter Summary ---
Author Organization [facility] Address [address] [place] [address] Care Team Providers Care Fisher Mussel Name Role Phone Terry Hall MD Unavailable Yehuda Stallworth DO Primary Care Provider Reason for Visit * Reason Comments New Patient Visit [facility]; Rash on both h eels and fingers * Consult (Routine/Next Available) - Closed Specialty Diagnoses / Procedures Referred By [facility] t Referred To Contact Dermatology Diagnoses Type 2 diabetes mellitus without complication, with long-term current use of insulin ([facility]) Dermatitis Greta Galicia NP Phone: tel: fax: [facility] Dermatology [address] [address] Phone: tel: fax: Referral ID Status Reason Start Date Expiration Date V isits Requested Visits Authorized [id number] Closed Specialty Services Required 05/15/2016 1 1 Encounter Details Date Type Department Care Team (Late st Contact Info) Description 05/23/2016 14:40 EST Office Visit [facility] Dermatology [address] [address] Shannan Whelan MD [address] [place] [address] [place] [phone] Dermatitis (Primary Dx) Social History Tobacco Use [...] Refills Last Filled Start Date End Date clobetasol (TEMOVATE) 0.05 % ointment Mix with the urea at night for your feet for redness. 60 g 2 05/23/2016 7 Urea 40 % cream Apply topically to affected area 2 times daily. If expensive- buy off amazon 40 g 3 05/23/2016 2 documented in this encounter Progress Notes * [...] 14:50 * Duane Louis MD - 05/23/2016 1440 EST Dermatology Outpatient Visit Note Chief Complaint [...] the resident's/fellow's note. Shannan Whelan MD Dermatology [facility] documented in this encounter Plan of Treatment Upcoming Encounters Date Type Department Care Team (Late st Contact Info) Description 07/23/2024 16:20 EDT Telemedicine [facility] Endocrinology - [address] [address] Trini Hilario DO [address] [place] [phone] documented as of this encounter Visit Diagnoses Diagnosis Dermatitis- Primary Contact dermatitis and other eczema, due to unspecified cause documented in this encounter Historical Medications * This list may reflect changes made after this encounter. busPIRone (BUSPAR) 15 mg tablet Take 15 mg by mouth 2 times daily. 10/16/2021 added in this encounter Care Teams Fisher Mussel Relationship Specialty Start Date End Date Yehuda Stallworth DO [address] [place] [phone] PCP - General 05/15/16 10/15/21 Terry Hall MD [address] [place] [address] 07/02/14 documented as of this encounter
--- OUTSIDE RECORDS SUMMARY | 2024-05-15 13:00 | XMS_ITS | Encounter Summary ---
Author Organization [facility] Address [address] [place] [address] Care Team Providers Care Tire Room Supervisor Name Role Phone Terry Hall MD Unavailable Yehuda Stallworth DO Primary Care Provider Reason for Visit * Reason Onset Date Comments Blood Glucose Review 10/11/2016 Encounter Details Date Type Department Care Team (Late st Contact Info) Description 10/11/2016 Telephone [facility] Endocrinology - [facility] [address] [place] [address] Camila Sewell CDE [address] [facility] [address] [place] [address] Blood Glucose Review Social History [...] Notes * Telephone Encounter - Camila Sewell RN-TANJA - 10/11/2016 1534 EDT Spoke with Emma, who took the second bydureon dose on Saturday night. She held her lantus. We will follow up with bs again next week. documented in this encounter Plan of Treatment Upcoming Encounters Date Type Department Care Team (Late st Contact Info) Description 07/23/2024 16:20 EDT Telemedicine [facility] Endocrinology - [address] [address] Trini Hilario DO [address] [place] [phone] documented as of this encounter Visit Diagnoses Not on filedocumented in this encounter Care Teams Tire Room Supervisor Relationship Specialty Start Date End Date Yehuda Stallworth DO [address] [place] [phone] PCP - General 05/15/16 10/15/21 Terry Hall MD [address] [place] [phone] 07/02/14 documented as of this encounter
--- OUTSIDE RECORDS SUMMARY | 2024-05-15 13:00 | XMS_ITS | Encounter Summary ---
Author Organization [facility] Address [address] [place] [address] Care Team Providers Care Property Management Supervisor Name Role Phone Terry Hall MD Unavailable Yehuda Stallworth DO Primary Care Provider Reason for Visit * Reason Comments Foot Pain Atraumatic right mere t pain, specifically in arch/heel Encounter Details Date Type Department Care Team (Late st Contact Info) Description 05/30/2019 8:38 EST - 05/30/2019 10:00 EST Emergency [facility] Emergency Department - [address] [phone] Socorro Samayoa, PACarmelinaC [address] [facility], Level 1 [place] [address] Plantar fasciitis (Primary Dx) Discharge [...] Time Taken Comments Blood Pressure 126/79 05/30/2019 08 EST Pulse - - Temperature 36.2 ??C (97.2 ??F) 05/30/2019835 EST Respiratory Rate 18 05/30/201936 EST Oxygen Saturation 98% 05/30/2019835 EST Inhaled Oxygen Concentration - - Weight 72.6 kg (160 lb) 05/30/2019835 EST Height 162.6 cm (5' 4) 05/30/2019835 EST Body Mass Index 27.46 05/30/2019 08 EST documented in this encounter Functional Status [...] 05/23/2016 14:47 EST documented in this encounter Discharge Instructions * [...] pain. Follow up with [facility] or Occupational health on [facility] for other concerns regarding returnto work or restrictions. * Attachments The following attachments cannot be sent through Care Everywhere. * Plantar Fasciitis (Congolese) * Arch Pain: Exercises (Congolese) documented in this encounter Medications at Time of Discharge famotidine (PEPCID) 20 mg tablet Take 20 mg by mouth 2 times daily. augmented betamethasone dipropionate (DIPROLENE-AF) 0.05 % ointment Apply topically to affected area 2 times daily. 45 g 3 05/27/2016 2 busPIRone (BUSPAR) 15 mg tablet Take 15 mg by mouth 2 times daily. 2 colesevelam (WELCHOL) 625 mg tabletIndications:Ty pe 2 diabetes mellitus with hyperglycemia ([facility]),Mixed hyperlipidemia Take 1 Tab by mouth 2 times daily with breakfast and dinner. 180 Tab 3 01/11/2016 2 empagliflozin (JARDIANCE) 10 mg tablet Take 10 mg by mouth daily. 2 insulin glargine (LANTUS SOLOSTAR) 100 unit/mL (3 mL) injection penIndications:Type 2 diabetes mellitus with hyperglycemia, with long-term current use of insulin ([facility]) Inject 28 Units into the skin once daily. 1 Box 3 09/12/2016 2 liraglutide (VICTOZA 2-SHANA) 0.6 mg/0.1 mL (18 mg/3 mL) injectable pen Inject 1.2 mg into the skin once a week. 2 oxymetazoline (AFRIN) 0.05 % nasal spray Instill 2 Sprays into right nostril 2 times daily. 2 Urea 40 % cream Apply topically to affected area 2 times daily. If expensive- buy off amazon 40 g 3 05/23/2016 2 documented as of this encounter Discharge Disposition Disposition Code Departure Means Destination Home or Self Nursing Home documented in this encounter Progress Notes * Moriah Gerber - 05/30/2019 0946 EST Emma Min is a 39 y.o. female seen in the [facility] Emergency Department 05/30/19. As part of routine care Emma Min was screened for substance use and depression. The results and interventions are as follows: Pt participated with no risk categories. Moriah Gerber # [id number] documented in this encounter ED Notes * Socorro Samayoa PA-C - 05/30/2019 0957 EST Images from the original note were [...] reports she works long 12-hour shift at [employer], and one morning woke up to get [...] Contact Info) Description 07/23/2024 16:20 EDT Telemedicine [facility] Endocrinology - [address] [phone] Trini Hilario DO [address] [place] [phone] documented as of this encounter Visit Diagnoses Diagnosis Plantar fasciitis- Primary Plantar fascial fibromatosis documented in this encounter Historical Medications * This list may reflect changes made after this encounter. famotidine (PEPCID) 20 mg tablet Take 20 [...] 10/16/2021 added in this encounter Care Teams Property Management Supervisor Relationship Specialty Start Date End Date Yehuda Stallworth DO [address] [place] [phone] PCP - General 05/15/16 10/15/21 Terry Hall MD [address] [place] [phone] 07/02/14 documented as of this encounter
--- OUTSIDE RECORDS SUMMARY | 2024-05-15 13:00 | XMS_ITS | Encounter Summary ---
Author Organization [facility] Address [address] [place] [address] Care Team Providers Care V Belt Curer Name Role Phone Terry Hall MD Unavailable [...] Contact Info) Description 07/23/2024 16:20 EDT Telemedicine [facility] [address] [place] [address] Trini Hilario DO [address] [place] [phone] documented as of this encounter Visit Diagnoses Not on filedocumented in this encounter Care Teams V Belt Curer Relationship Specialty Start Date End Date Yehuda Stallworth DO [address] [place] [phone] PCP - General 05/15/16 10/15/21 Terry Hall MD [address] [place] [phone] 07/02/14 documented as of this encounter
--- OUTSIDE RECORDS SUMMARY | 2024-05-15 13:00 | XMS_ITS | Encounter Summary ---
Author Organization [facility] Address [address] [place] [address] Care Team Providers Care Electric Meter Installer Name Role Phone Terry Hall MD Unavailable Unknown, Provider MD Primary Care Provider Unava ilable Reason for Referral * Consult (Routine/Next Available) - Closed Specialty Diagnoses / Procedures Referred By Luana landon Referred To Contact Dermatology Diagnoses Type 2 diabetes mellitus with hyperglycemia (HCC-CMS) Dermatitis of right foot Greta Galicia NP Phone: tel: fax: [facility] Dermatology 5th Floor [facility] [address] [place] [address] Phone: tel: fax: Referral ID Status Reason Start Date Expiration Date V isits Requested Visits Authorized [id number] Closed Specialty Services Required 01/11/2016 1 1 Question Answer Reason for Request: t2 diabetes, itchy painful rash, dermatitis on right heal Reason for Visit * Reason Comments Diabetes Encounter Details Date Type Department Care Team (Latest Contact Info) Description 01/11/2016 15:40 EDT Office Visit [facility] Endocrinology - [facility] [address] [place] [address] Greta Galicia NP 62 [facility] [address] [place] [phone] Mixed hyperlipidemia (Primary Dx); Type 2 diabetes [...] 08/10/2015 13:22 EDT documented in this encounter Patient Instructions [...] diet balanced in Calories, Protein, and carbohydrates Hospital Ward Clerk needed: Declined Exercise: Please try to exercise [...] Plan and call the Diabetes Center at [phone] for questions or concerns about your blood [...] Refills Last Filled Start Date End Date colesevelam (WELCHOL) 625 mg tabletIndications:Ty pe 2 diabetes mellitus with hyperglycemia (HCC-CMS),Mixed hyperlipidemia Take 1 Tab by mouth 2 times daily with breakfast and dinner. 180 Tab 3 01/11/2016 2 pravastatin (PRAVACHOL) 10 mg tabletIndications:Ty pe 2 diabetes mellitus with hyperglycemia (HCC-CMS),Mixed hyperlipidemia Take 1 Tab by mouth daily. 90 Tab 3 01/11/2016 6 documented in this encounter Progress Notes * Greta Galicia NP - 01/12/2016 1500 EDT Subjective: Patient ID: Emma Min is an 35 y.o. female. Chief Complaint Patient presents with ??? Diabetes HPI This is a 35 y.o. yr old female arrives today as a New Patient visit for treatment of Type 2 Diabetes. Diabetes diagnosed 2004. Initially from [place] moved back to [facility] last year from [facility]. Due to marital problems, now . Raising 2 daughters. Pt working at [employer] at [facility]. Now has boyfriend. Pertinent Past Medical [...] other subspecialties: Has established a PCP in [place] Changes in other pertinent medications: No. Occupation, Social issues, living situation: Patient has a job at [employer] in the [employer] department. She has 2 pre-teenage daughters. Not [...] Rubber Swelling and Rash labs done at [facility] 07/2014 creatinine 0.71, GFR greater [...] diet balanced in Calories, Protein, and carbohydrates Hospital Ward Clerk needed: Declined Exercise: Please try to exercise [...] Plan and call the Diabetes Center at [phone] for questions or concerns about your blood [...] Up Dermatology * Ayala Marrero - 01/11/2016 6113 EDT Fingerstick blood sample obtained for POCT Hemoglobin A1C performed for this DOS at the ana of Greta Galicia NP documented in this encounter Procedure Notes * Ayala Marrero - 01/11/2016 1549 EDT Procedure: Procedures documented in this encounter Plan of Treatment Upcoming Encounters Date Type Department Care Team (Late st Contact Info) Description 07/23/2024 16:20 EDT Telemedicine [facility] Endocrinology - [address] [address] Trini Hilario DO [address] [place] [phone] Scheduled Referrals Name Type Priority Associated Diagnoses Orde r Schedule AMB CONS/FOLLOW UP DERMATOLOGY Outpatient Referral Routine Type 2 Diabetes Mellitus With Hyperglycemia ([facility]) Dermatitis Of Right Foot Ordered: 01/11/2016 documented as of this encounter Procedures Procedure Name Priority Date/Time Associated Diagnosis Comments POCT HEMOGLOBIN A1C Routine 01/11/2016 1 5:48 EDT Type 2 diabetes mellitus with hyperglycemia (CMS-HCC) ([facility]) Mixed hyperlipidemia documented in this encounter Results * (ABNORMAL) POCT HEMOGLOBIN A1C (01/11/2016 15:48 EDT) Hemoglobin A1c, POC 8.1(A) <=5.7 % POINT OF CARE 01/11/2016 15:4 8 EDT Greta Galicia NP POINT OF CARE TEST ORDERABL ES Final Result POINT OF CARE documented in this encounter Visit Diagnoses Diagnosis Mixed hyperlipidemia- Primary Type 2 diabetes mellitus with hyperglycemia ([facility]) Type II or unspecified type diabetes mellitus [...] documented as of this encounter Care Teams Electric Meter Installer Relationship Specialty Start Date End Date Unknown, Simone, [address] [place] [phone] PCP - General 10/17/15 05/14/16 Terry Hall MD [address] [place] [address] 07/02/14 documented as of this encounter
--- OUTSIDE RECORDS SUMMARY | 2024-05-15 13:00 | XMS_ITS | Encounter Summary ---
Author Organization 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 [employer] Encounter Details Date Type Department Care Team (Late st Contact Info) Description 08/07/2016 Telephone [facility] Endocrinology - [facility] [address] [place] [address] Gerta Galicia NP 62 [facility] [address] [place] [phone] Letter for School/Work (for Physical [...] Miscellaneous Notes * Telephone Encounter - Crystal Puente RN - 08/08/2016 0856 EDT Faxed letter to /KAMINI * Telephone Encounter - Manisha Ramirez - 08/07/2016 09 EDT 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 Please call with Questions and fax letter to: [phone] documented in this encounter Plan of Treatment Upcoming Encounters Date Type Department Care Team (Late st Contact Info) Description 07/23/2024 16:20 EDT Telemedicine [facility] Endocrinology - [address] [address] Trini Hilario DO [address] [place] [phone] documented as of this encounter Visit Diagnoses Not on filedocumented in this encounter Care Teams World History Teacher Relationship Specialty Start Date End Date Yehuda Stallworth DO [address] [place] [phone] PCP - General 05/15/16 10/15/21 Terry Hall MD [address] [place] [phone] 07/02/14 documented as of this encounter
--- OUTSIDE RECORDS SUMMARY | 2024-05-15 13:00 | XMS_ITS | Encounter Summary ---
Author Organization [facility] Address [address] [place] [address] Care Team Providers Care Family Practice Md Name Role Phone Terry Hall MD Unavailable Yehuda Stallworth DO Primary Care Provider Reason for Visit * Reason Onset Date Comments Follow-up 10/09/2016 Encounter Details Date Type Department Care Team (Late st Contact Info) Description 10/09/2016 Telephone [facility] Endocrinology - [facility] [address] [place] [address] Camila Sewell CDE 62 [facility] [address] [place] [phone] Follow-up Social History Tobacco Use [...] !! * Telephone Encounter - Camila Sewell RN-CDE - 10/09/2016 1309 EDT Telephone call to Emma to follow up on bs readings. Requested call back. documented in this encounter Plan of Treatment Upcoming Encounters Date Type Department Care Team (Late st Contact Info) Description 07/23/2024 16:20 EDT Telemedicine [facility] Endocrinology - [address] [address] Trini Hilario DO [address] [place] [phone] documented as of this encounter Visit Diagnoses Not on filedocumented in this encounter Care Teams Family Practice Md Relationship Specialty Start Date End Date Yehuda Stallworth DO [address] [place] [phone] PCP - General 05/15/16 10/15/21 Terry Hall MD [address] [place] [phone] 07/02/14 documented as of this encounter
--- OUTSIDE RECORDS SUMMARY | 2024-05-15 13:00 | XMS_ITS | Encounter Summary ---
Author Organization [facility] Address [address] [place] [address] Care Team Providers Care Blind Slat Stapling Machine Operator Name Role Phone Terry Hall MD Unavailable Yehuda Stallworth DO Primary Care Provider Reason for Visit * Reason Onset Date Comments Prior Auth, Medication 09/20/2016 Encounter Details Date Type Department Care Team (Late st Contact Info) Description 09/20/2016 Telephone [facility] Endocrinology - [facility] [address] [place] [address] Greta Galicia NP 62 [facility] [address] [place] [phone] Prior Auth, Medication Social History [...] Info) Description 07/23/2024 16:20 EDT Telemedicine [facility] Endocrinology - [address] [address] Trini Hilario DO [address] [place] [phone] documented as of this encounter Visit Diagnoses Not on filedocumented in this encounter Care Teams Blind Slat Stapling Machine Operator Relationship Specialty Start Date End Date Yehuda Stallworth DO [address] [place] [phone] PCP - General 05/15/16 10/15/21 Terry Hall MD [address] [place] [phone] 07/02/14 documented as of this encounter
--- OUTSIDE RECORDS SUMMARY | 2024-05-15 13:00 | XMS_ITS | Encounter Summary ---
Author Organization [facility] Address [address] [place] [address] Care Team Providers Care Weigher And Crusher Name Role Phone Terry Hall MD Unavailable Yehuda Stallworth DO Primary Care Provider Reason for Visit * Reason Onset Date Comments Medication Management 10/05/2016 Byevan raines en Encounter Details Date Type Department Care Team (Late st Contact Info) Description 10/05/2016 Telephone [facility] Endocrinology - [facility] [address] [place] [address] Greta Galicia NP 62 [facility] [address] [place] [phone] Medication Management (Bydurian pen) Social [...] with an update. * Telephone Encounter - NúñezSukhdevAndrew - 10/05/2016 1403 EDT Patient calling to let us know she went to the [facility] emergency [facility] in [place]. You had a seizure and went unconsious [...] Contact Info) Description 07/23/2024 16:20 EDT Telemedicine [facility] Endocrinology - [address] [address] Trini Hilario DO [address] [place] [phone] documented as of this encounter Visit Diagnoses Not on filedocumented in this encounter Care Teams Weigher And Crusher Relationship Specialty Start Date End Date Yehuda Stallworth DO [address] [place] [phone] PCP - General 05/15/16 10/15/21 Terry Hall MD [address] [place] [phone] 07/02/14 documented as of this encounter
--- OUTSIDE RECORDS SUMMARY | 2024-05-15 13:00 | XMS_ITS | Encounter Summary ---
Author Organization [facility] Address [address] [place] [address] Care Team Providers Care Hematology Technician Name Role Phone Terry Hall MD Unavailable Unknown, Provider MD Primary Care Provider Unava ilable Reason for Visit * Reason Comments Dizziness Patient arrives comp laining of dizziness, nausea, and headache. Also complains of pain from Sunbun. Jodi Encounter Details Date Type Department Care Team (Late st Contact Info) Description 10/17/2015 8:01 EDT - 10/17/2015 12:29 EDT Emergency [facility] Emergency Department - [place] [address] [place], [place] [address] Oseas Muse MD [address] [place] [phone] Emergency, MD Jodi Dela Cruz (Primary Dx); [...] 08/10/2015 13:22 EDT documented in this encounter Discharge Instructions * Attachments The following attachments cannot be sent through Care Everywhere. * DEHYDRATION (HUNGARIAN) * SUNBURN (HUNGARIAN) documented in this encounter Medications at Time of Discharge insulin aspart protamine-insulin aspart (NOVOLOG FLEXPEN 70/30) 100 unit/mL (70-30) injectable penIndications:Type 2 diabetes mellitus with hyperglycemia ([facility]) Inject 26 Units into the skin BEFORE BREAKFAST & DINNER. 1 Box 11 08/10/2015 7 pravastatin (PRAVACHOL) 10 mg tabletIndications:T ype 2 diabetes mellitus with hyperglycemia (HCC-CMS) Take 10 mg by mouth daily. 6 documented as of this encounter Discharge Disposition [...] order. * Oseas Muse MD - 10/17/2015 0957 EDT DOS: 10/17/2015 Chief Complaint Patient presents with ??? Dizziness Patient arrives complaining of dizziness, nausea, and headache. Also complains of pain from [place]bun. ??? Sunburn HPI The patient is a 35 y.o. female who presents today with Dizziness and Sunburn HPI Comments: I, Jayleen Mcfarland, am scribing for Oseas Muse MD while [...] EDT Telemedicine [facility] Endocrinology - [address] [phone] Trini Hilario, [address] [place] [phone] documented as of this encounter Procedures Procedure Name Priority Date/Time Associated Diagnosis Comments BASIC METABOLIC PANEL (BMP) STAT 10/17/2015 11:57 EDT [facility] Routine 10/17/2015 10:00 EDT documented in this encounter Results * (ABNORMAL) BASIC METABOLIC PANEL (10/17/2015 11:57 EDT) Sodium 139 136 - 145 mEq/L 10/17/2015 12:18 EDT [facility] Potassium 4.2 3.5 - 5.0 mEq/L 10/17/2015 12:18 EDT [facility] Chloride 101 96 - 110 mEq/L 10/17/2015 12:18 [facility] CO2 24 24 - 32 mEq/L 10/17/2015 12:18 [facility] BUN 12 10 - 26 mg/dl 10/17/2015 12:18 [facility] Creatinine 0.58 0.52 - 1.04 mg/dl 10/17/2015 12:18 [facility] GFR, Calculated 121 >60 ml/min/1.7 3m2 10/17/2015 12:18 [facility] Comment: eGFR calculated using CKD-EPI equation for non Americans. Multiply eGFR by 1.16 for Americans. Calcium 9.8 8.5 - 10.5 mg/dl 10/17/2015 12:18 [facility] Calculated Calcium 10.3 8.5 - 10.5 mg/dl 10/17/2015 12:18 [facility] Glucose, Serum 237(H) 70 - 100 mg/dl 10/17/2015 12:18 [facility] Fasting? Unknown 10/17/2015 12:02 T [facility] Blood specimen (specimen) BLOOD SPECIMEN / Unknown 10/17/2015 11:57 EDT 10/17/2015 12:01 EDT us Oseas Muse MD CHEMISTRY & BLOOD GAS ORDERA BLES Final Result Performing Organization Address City/[facility]/ZIP Co de Phone Number [facility] [address] [place] [address] * REDRAW LABS (10/17/2015 10:00 EDT) Redraw BMP MARKEDLY HEMOLYZED.PB 10/17/2015 11:08 EDT [facility] TOPOGRAPHY UNKNOWN / Unknown 10/17/2015 10:00 EDT 10/17/2015 10:19 EDT us Oseas Muse MD LAB INFO SERVICE AND SUPPORT & PHONE RESULT Final Result Performing Organization Address City/[facility]/ZIP Co de Phone Number [facility] [address] [place] [address] documented in this encounter Visit Diagnoses Diagnosis [...] STAT 1020 (Given - Provid er: Jenn Alvarenga RN) sodium chloride 0.9 % BOLUS 1,000 mL (COMPLETED) 1,000 mL, intravenous, NOW X1, 1 dose, On Sat10/17/15 at 0945, STAT 1020 (New Bag - Prov ider: Jenn Alvarenga RN)1228 (Completed - Provider: Jenn Alvarenga RN) documented in this encounter Orders Nursing Count Last Ordered Date First Orde red Date INSERT PERIPHERAL IV 1 10/17/2015 documented in this encounter Care Teams Hematology Technician Relationship Specialty Start Date End Date Unknown, Simone, [address] [place] [phone] PCP - General 10/17/15 05/14/16 Terry Hall MD [address] [place] [phone] 07/02/14 documented as of this encounter
--- OUTSIDE RECORDS SUMMARY | 2024-05-15 13:00 | XMS_ITS | Encounter Summary ---
Author Organization Health system Address [address] [place] [address] Care Team Providers Care E Commerce Marketing Analyst Name Role Phone Terry Hall MD Unavailable Yehuda Stallworth DO Primary Care Provider Che Sharpe Primary Care Provider + Encounter Details Date Type Department Care Team (Late st Contact Info) Description 03/16/2020 Lab Requisition [facility] Pathology & Laboratory Medicine - [address] [phone] Outr Resulting Lab, Provider Social History Tobacco [...] Description 07/23/2024 16:20 EDT Telemedicine [facility] Endocrinology - [place] [place] [address] Trini Hilario DO [address] [place] [address] documented as of this encounter Procedures Procedure Name Priority Date/Time Associated Diagnosis Comments ZZCOVID-19 TEST [facility] PCR After X-Ray 02/17/2020 10:53 EDT COVID-19 TESTING After X-Ray 02/17/2020 10:5 3 EDT documented in this encounter Results * COVID-19 TEST [facility] (02/17/2020 10:53 EDT) COVID-19 rt-PCR Result Negative Negative 04/12/2020 7:22 EST [facility] Comment:Negative results do not preclude 2019-nCoV infection and should not be used as the sole basis for treatment or other patient management decisions. Negative results must be combined with clinical observations, patient history, and epidemiological information. Swab ENTIRE NASOPHARYNX / Unknown 02/17/2020 10:53 EDT 04/03/2020 10:19 EST us Provider Outr Resulting Lab MICROBIOLOGY - GENER AL ORDERABLES Final Result [facility] [address] [place] [address] * COVID-19 TESTING (02/17/2020 10:53 EDT) COVID-19 rt-PCR Result Negative Negative 04/12/2020 7:23 EST [facility] Comment:Negative results do not preclude 2019-nCoV infection and should not be used as the sole basis for treatment or other patient management decisions. Negative results must be combined with clinical observations, patient history, and epidemiological information. Performing Lab [facility] 04/12/2020 7:23 EST [facility] Swab 02/17/2020 10:5 3 EDT 04/03/2020 10:19 EST us Provider Outr Resulting Lab MICROBIOLOGY - GENER AL ORDERABLES Final Result [facility] [address] [place] [address] documented in this encounter Visit Diagnoses Not on filedocumented in this encounter Care Teams E Commerce Marketing Analyst Relationship Specialty Start Date End Date Yehuda Stallworth DO [address] [place] [phone] PCP - General 05/15/16 10/15/21 Che Sharpe PA [address] [place] [phone] PCP - General 10/16/21 Terry Hall MD [address] [place] [address] 07/02/14 documented as of this encounter
--- OUTSIDE RECORDS SUMMARY | 2024-05-15 13:00 | XMS_ITS | Encounter Summary ---
Author Organization [facility] Address [address] [place] [address] Care Team Providers Care Title Coordinator Name Role Phone Terry Hall MD Unavailable Yehuda Stallworth DO Primary Care Provider Reason for Visit * Reason Onset Date Comments Prior Auth, Medication 09/13/2016 Medication Questions 09/13/2016 Encounter Details Date Type Department Care Team (Late st Contact Info) Description 09/13/2016 Telephone [facility] Endocrinology - [facility] [address] [place] [address] Greta Galicia NP [address] [facility] [address] [place] [address] Prior Auth, Medication; Medication Questions [...] pharmacy indicating PA required for Trulicity. Completed CT Medicaid PA Request Form and e-filed using [facility] to initiate this process. documented in this encounter Plan of Treatment Upcoming Encounters Date Type Department Care Team (Late st Contact Info) Description 07/23/2024 16:20 EDT Telemedicine [facility] Endocrinology - [address] [phone] Trini Hilario DO [address] [place] [phone] documented as of this encounter Visit Diagnoses Not on filedocumented in this encounter Care Teams Title Coordinator Relationship Specialty Start Date End Date Yehuda Stallworth DO [address] [place] [phone] PCP - General 05/15/16 10/15/21 Terry Hall MD [address] [place] [address] 07/02/14 documented as of this encounter
--- OUTSIDE RECORDS SUMMARY | 2024-05-15 13:00 | XMS_ITS | Encounter Summary ---
Author Organization [facility] Address [address] [place] [address] Care Team Providers Care Copy Director Name Role Phone Terry Hall MD Unavailable Unknown, Provider MD Primary Care Provider Unava ilable Reason for Visit * Reason Onset Date Comments Provider Referred 01/23/2016 Encounter Details Date Type Department Care Team (Late st Contact Info) Description 01/23/2016 Telephone [facility] Dermatology 3rd Floor [facility] [address] [place] [address] Shannan Whelan MD [address] [place] [address] [place] [phone] Provider Referred Social History Tobacco Use Types [...] 08/10/2015 13:22 EDT documented in this encounter Miscellaneous Notes * Telephone Encounter - Noelle Aguirre RN - 01/23/2016 1712 EDT PRISM Notes Patient is referred by Greta Galicia NP, [facility], for Dermatitis of right foot - t2 diabetes, itchy painful rash, dermatitis on right heal Spoke to patient Rash Right heal Present x 3 months Itchy, scaling, Flaking, peeling, cracking, red, painful Tried Lotion to keep moisturized - not helping Tried OTC product- for cracked heels - not effective Pbx Wire Chief recommended Lamisil Has been using x 2 [...] Katy Murphy - 01/23/2016 1612 EDT Per human resources manager; Please schedule NPV with any provider. Referring Provider: Greta Galicia NP Reason for referral: t2 diabetes, itchy painful rash, dermatitis on right heal documented in this encounter Plan of Treatment Upcoming Encounters Date Type Department Care Team (Late st Contact Info) Description 07/23/2024 16:20 EDT Telemedicine [facility] Endocrinology - [facility] [address] [place], [place] [phone] Trini Hilario DO [address] [place] [address] documented as of this encounter Visit Diagnoses Not on filedocumented in this encounter Care Teams Copy Director Relationship Specialty Start Date End Date Unknown, Provider, [address] [place] [address] PCP - General 10/17/15 05/14/16 Terry Hall MD [address] [place] [address] 07/02/14 documented as of this encounter
--- OUTSIDE RECORDS SUMMARY | 2024-05-15 13:00 | XMS_ITS | Encounter Summary ---
Author Organization [facility] Address [address] [place] [address] Care Team Providers Care Sat Act Instructor Name Role Phone Terry Hall MD Unavailable Yehuda Stallworth DO Primary Care Provider Encounter Details Date Type Department Care Team (Late st Contact Info) Description 05/22/2016 Results Only [facility]ISM [phone] Unknown, Provider, Social History Tobacco Use Types [...] 05/15/2016 14:59 EST documented in this encounter Plan of Treatment Upcoming Encounters Date Type Department Care Team (Late st Contact Info) Description 07/23/2024 16:20 EDT Telemedicine [facility] Endocrinology - [place] [place], [place] [phone] Trini Hilario DO [address] [place] [phone] Pending Results Name Type Priority Associated Diagnoses Date /Time OUTSIDE IMAGES - OTHER NEURO Imaging 05/22/2016 16:00 EST documented as of this encounter Visit Diagnoses Not on filedocumented in this encounter Care Teams Sat Act Instructor Relationship Specialty Start Date End Date Yehuda Stallworth DO [address] [place] [phone] PCP - General 05/15/16 10/15/21 Terry Hall MD [address] [place] [address] 07/02/14 documented as of this encounter
--- OUTSIDE RECORDS SUMMARY | 2024-05-15 13:00 | XMS_ITS | Encounter Summary ---
Author Organization [facility] Address [address] [place] [address] Care Team Providers Care Brand Representative Name Role Phone Terry Hall MD Unavailable Yehuda Stallworth DO Primary Care Provider Reason for Visit * Reason Onset Date Comments Blood Glucose Review 10/18/2016 Encounter Details Date Type Department Care Team (Late st Contact Info) Description 10/18/2016 Telephone [facility] Endocrinology - [facility] [address] [place] [address] Camila Sewell CDE [address] [facility] [address] [place] [address] Blood Glucose Review Social History [...] Contact Info) Description 07/23/2024 16:20 EDT Telemedicine [facility] Endocrinology - [address] [phone] Trini Hilario DO [address] [place] [address] [phone] documented as of this encounter Visit Diagnoses Not on filedocumented in this encounter Care Teams Brand Representative Relationship Specialty Start Date End Date Yehuda Stallworth DO [address] [place] [phone] PCP - General 05/15/16 10/15/21 Terry Hall MD [address] [place] [address] 07/02/14 documented as of this encounter
--- OUTSIDE RECORDS SUMMARY | 2024-05-15 13:00 | XMS_ITS | Encounter Summary ---
Author Organization [facility] Address [address] [place] [address] Care Team Providers Care Group Product Manager Name Role Phone Terry Hall MD Unavailable Yehuda Stallworth DO Primary Care Provider Encounter Details Date Type Department Care Team (Late st Contact Info) Description 09/19/2016 Orders Only [facility] Endocrinology - [facility] [address] [place] [address] Greta Galicia NP 62 [facility] [address] [place] [address] Type 2 diabetes mellitus with hyperglycemia, with long-term current use of insulin ([facility] (Primary Dx) Social History Tobacco Use Types [...] Refills Last Filled Start Date End Date exenatide microspheres 2 mg suspension,extende d rel reconIndications:T ype 2 diabetes mellitus with hyperglycemia, with long-term current use of insulin ([facility]) Inject 2 mg into the skin every 7 days. Please instruct Pt on pen use 4 Each 11 09/19/2016 7 documented in this encounter Progress Notes * Greta Galicia NP - 09/19/2016 1442 EDT Trulicity not covered by insurance. Bydureon is. Have changed order to bydureon documented in this encounter Plan of Treatment Upcoming Encounters Date Type Department Care Team (Late st Contact Info) Description 07/23/2024 16:20 EDT Telemedicine [facility] Endocrinology - [address] [phone] Trini Hilario DO [address] [place] [phone] documented as of this encounter Visit Diagnoses Diagnosis Type 2 diabetes mellitus with hyperglycemia, with long-term current use of insulin ([facility])- Primary documented in this encounter Discontinued Medications Medication Sig Discontinue Reason Start Date End Da te dulaglutide 0.75 mg/0.5 mL pen injectorIndications:Type 2 diabetes mellitus with hyperglycemia, with long-term current use of insulin ([facility]) Inject 0.75 mg into the skin every 7 days. 09/12/2016 09/19/2016 documented as of this encounter Care Teams Group Product Manager Relationship Specialty Start Date End Date Yehuda Stallworth DO [address] [place] [phone] PCP - General 05/15/16 10/15/21 Terry Hall MD [address] [place] [phone] 07/02/14 documented as of this encounter
--- OUTSIDE RECORDS SUMMARY | 2024-05-15 13:00 | XMS_ITS | Encounter Summary ---
Author Organization [facility] Address [address] [place] [address] Care Team Providers Care Tie Buyer Name Role Phone Terry Hall MD Unavailable Yehuda Stallworth DO Primary Care Provider Che Sharpe Primary Care Provider + Encounter Details Date Type Department Care Team (Late st Contact Info) Description 01/11/2021 Lab Requisition [facility] Pathology & Laboratory Medicine - [facility] [address] [place], [place] [phone] Outr Resulting Lab, Provider Social History Tobacco [...] Info) Description 07/23/2024 16:20 EDT Telemedicine [facility] Endocrinology - [facility] [address] [place] [address] Trini Hilario DO [address] [place] [phone] documented as of this encounter Procedures Procedure Name Priority Date/Time Associated Diagnosis Comments FECAL BACTERIAL PATHOGENS BY PCR Routine 01/10/2021 22:00 EDT OVA/PARASITE EXAM Routine 01/10/2021 22: 00 EDT documented in this encounter Results * OVA/PARASITE EXAM (01/10/2021 22:00 EDT) Parasite No ova and parasites seen. 01/12/2021 14:00 EDT [facility] Feces SPECIMEN FROM RECTUM / Unknown 01/10/2021 22:00 EDT 01/11/2021 22:51 EDT Narrative [facility] - 01/12/2021 14:00 EDT (If Cryptosporidium, Cyclospora, or Microsporidium are suspected, specific tests must be requested.) Single negative specimen does not rule out the possibility of a parasitic infection. us Provider Outr Resulting Lab MICROBIOLOGY - GENER AL ORDERABLES Final Result [facility] [address] [place] [address] * FECAL BACTERIAL PATHOGENS BY PCR (01/10/2021 22:00 EDT) Salmonella PCR Negative Negative 01/12/2021 10:21 EDT [facility] Shigella/Enteroin vasive E. coli Negative Negative 01/12/2021 10:21 EDT [facility] HN LAB CAMPYLOBACTER PCR Negative Negative 01/12/2021 10:21 EDT [facility] Shiga Toxin PCR Negative Negative 10:21 EDT [facility] Feces SPECIMEN FROM RECTUM / Unknown Stool Collect / Unknown 01/10/2021 22:00 EDT 01/11/2021 22:51 EDT us Provider Outr Resulting Lab MICROBIOLOGY - GENER AL ORDERABLES Final Result [facility] [address] [place] [address] documented in this encounter Visit Diagnoses Not on filedocumented in this encounter Care Teams Tie Buyer Relationship Specialty Start Date End Date Yehuda Stallworth DO [address] [place] [phone] PCP - General 05/15/16 10/15/21 Che Sharpe PA [address] [place] [phone] PCP - General 10/16/21 Terry Hall MD [address] [place] [phone] 07/02/14 documented as of this encounter
--- OUTSIDE RECORDS SUMMARY | 2024-05-15 13:00 | XMS_ITS | Encounter Summary ---
Author Organization [facility] Address [address] [place] [address] Care Team Providers Care Trim Machine Operator Name Role Phone Terry Hall MD Unavailable Yehuda Stallworth DO Primary Care Provider Reason for Visit * Reason Onset Date Comments Medication Questions 09/14/2016 Trulicity Encounter Details Date Type Department Care Team (Late st Contact Info) Description 09/14/2016 Telephone [facility] Endocrinology - [facility] [address] [place] [address] Greta Galicia NP 62 [facility] [address] [place] [phone] Medication Questions (Trulicity) Social History [...] Telephone Encounter - Crystal Puente RN - 09/14/2016 1429 EDT Notified Lawanda that NARENDRA ws approved for Trulicity./KAMINI * Telephone Encounter [...] [facility] Endocr[facility]ology - [address] [address] Trini Hilario DO [address] [place] [phone] documented as of this encounter Visit Diagnoses Not on filedocumented in this encounter Care Teams Trim Machine Operator Relationship Specialty Start Date End Date Yehuda Stallworth DO [address] [place] [address] [phone] PCP - General 05/15/16 10/15/21 Terry Hall MD [address] [place] [address] [phone] 07/02/14 documented as of this encounter
--- OUTSIDE RECORDS SUMMARY | 2024-05-15 13:00 | XMS_ITS | Encounter Summary ---
Author Organization [facility] Address [address] [place] [address] Care Team Providers Care Product Safety Engineer Name Role Phone Terry Hall MD Unavailable Yehuda Stallworth DO Primary Care Provider Reason for Visit * Reason Comments Diabetes Encounter Details Date Type Department Care Team (Latest Contact Info) Description 09/12/2016 16:20 EDT Office Visit [facility] Endocrinology - [facility] [address] [place] [address] Greta Galicia NP 62 [facility] [address] [place] [phone] Type 2 diabetes mellitus with hyperglycemia, with long-term current use of insulin ([facility]) (Primary Dx) Social History Tobacco Use Types [...] Patient Instructions * Patient Instructions* Greta Galicia, PRECISION FILER HAND - 09/12/2016 16:20 EDT Your Hemoglobin A1C [...] any problems with Medications or blood sugars [phone] Blood Pressure Goal is <130/80, Yours is: [...] diet balanced in Calories, Protein, and carbohydrates Debrander needed: Exercise: Please try to exercise for [...] Plan and call the Diabetes Center at [phone] for questions or concerns about your blood [...] Last Filled Start Date End Date insulin glargine (LANTUS SOLOSTAR) 100 unit/mL (3 mL) injection penIndications:Typ e 2 diabetes mellitus with hyperglycemia, with long-term current use of insulin ([facility]) Inject 28 Units into the skin once daily. 1 Box 3 09/12/2016 2 dulaglutide 0.75 mg/0.5 mL pen injectorIndication s:Type 2 diabetes mellitus with hyperglycemia, with long-term current use of insulin ([facility]) Inject 0.75 mg into the skin every 7 days. 4 Syringe 11 09/12/2016 7 insulin pen needles 31G x 5/16Indications:T ype 2 diabetes mellitus with hyperglycemia, with long-term current use of insulin ([facility]) Use 2 pen needles as directed daily. 100 Each 7 09/12/2016 8 documented in this encounter Progress Notes * [...] 2 Diabetes. Diabetes diagnosed 2004. Initially from [place] moved back to [facility] from [facility]. Due to marital problems, now . [...] other subspecialties: Has established a PCP in [place] Changes in other pertinent medications: No. 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 She has 2 pre-teenage daughters. Not [...] Rubber Swelling and Rash labs done at [facility] 07/2014 creatinine 0.71, GFR greater than 60, [...] she is hoping to being moving to [place] within the next few months depending on [...] any problems with Medications or blood sugars [phone] Blood Pressure Goal is <130/80, Yours is: [...] diet balanced in Calories, Protein, and carbohydrates Debrander needed: Exercise: Please try to exercise for [...] Plan and call the Diabetes Center at [phone] for questions or concerns about your blood [...] Info) Description 07/23/2024 16:20 EDT Telemedicine [facility] Endocrinology - [address] [phone] Trini Hilario DO [address] [place] [phone] documented as of this encounter Procedures Procedure Name Priority Date/Time Associated Diagnosis Comments POCT HEMOGLOBIN A1C, INTERFACED Routine 09/12/2016 16:57 EDT Type 2 diabetes mellitus with hyperglycemia, with long-term current use of insulin ([facility]) documented in this encounter Results * (ABNORMAL) POCT HEMOGLOBIN A1C (09/12/2016 16:57 EDT) Hemoglobin A1C, POC Interfaced 8.3(H) <5.7 % 09/12/2016 17:08 EDT [facility] flanger ID [id number] 09/12/2016 17:08 EDT [facility] Comment:Test performed at En docrinology Blood specimen (specimen) BLOOD SPECIMEN / Unknown 09/12/2016 16:57 EDT 09/12/2016 17:08 EDT Greta Galicia PRECISION FILER HAND POINT OF CARE TEST ORDERABL ES Final Result [facility] [address] [place] [address] documented in this encounter Visit Diagnoses Diagnosis Type 2 diabetes mellitus with hyperglycemia, with long-term current use of insulin ([facility])- Primary documented in this encounter Discontinued Medications Medication Sig Discontinue Reason Start Date End Da te insulin aspart protamine-insulin aspart (NOVOLOG FLEXPEN 70/30) 100 unit/mL (70-30) injectable penIndications:Type 2 diabetes mellitus with hyperglycemia ([facility]) Inject 26 Units into the skin BEFORE BREAKFAST & DINNER. 08/10/2015 09/12/2016 documented as of this encounter Care Teams Product Safety Engineer Relationship Specialty Start Date End Date Yehuda Stallworth DO [address] [place] [phone] PCP - General 05/15/16 10/15/21 Terry Hall MD [address] [place] [phone] 07/02/14 documented as of this encounter
--- OUTSIDE RECORDS SUMMARY | 2024-05-15 13:00 | XMS_ITS | Encounter Summary ---
Author Organization [facility] Address [address] [place] [address] Care Team Providers Care Tank House Operator Name Role Phone Terry Hall MD Unavailable Yehuda Stallworth DO Primary Care Provider Che Sharpe Primary Care Provider + Reason for Visit * Reason Onset Date Comments Prior Auth, Medication 09/14/2016 trulicity Follow-up 09/18/2016 Patient still do es not have her trulicity yet Encounter Details Date Type Department Care Team (Late st Contact Info) Description 09/14/2016 Telephone [facility] Endocrinology - [facility] [address] [place] [address] Greta Galicia NP 62 [facility] [address] [place] [address] Prior Auth, Medication (trulicity); Follow-up [...] Telemedicine [facility] Endocrinology - [address] [address] Trini Hilario DO [address] [place] [phone] documented as of this encounter Visit Diagnoses Not on filedocumented in this encounter Care Teams Tank House Operator Relationship Specialty Start Date End Date Yehuda Stallworth DO [address] [place] [phone] PCP - General 05/15/16 10/15/21 Che Sharpe PA [address] [place] [phone] PCP - General 10/16/21 Terry Hall MD [address] [place] [phone] 07/02/14 documented as of this encounter
--- OUTSIDE RECORDS SUMMARY | 2024-05-15 13:00 | XMS_ITS | Encounter Summary ---
Author Organization [facility] Address [address] [place] [address] Care Team Providers Care Web Content Writer Name Role Phone Terry Hall MD Unavailable Yehuda Stallworth DO Primary Care Provider Che Sharpe Primary Care Provider + Encounter Details Date Type Department Care Team (Late st Contact Info) Description 08/06/2019 Lab Requisition [facility] Pathology & Laboratory Medicine - [facility] [address] [place] [address] Unknown, Provider, Social History Tobacco Use Types [...] Description 07/23/2024 16:20 EDT Telemedicine [facility] Endocrinology - [facility] [address] [place], [place] [phone] Trini Hilario DO [address] [place] [address] documented as of this encounter Procedures Procedure Name Priority Date/Time Associated Diagnosis Comments ZAdelitaHN INFLUENZA A AND B, RSV PCR Routine 08/06/2019 9:00 EDT documented in this encounter Results * INPATIENT/OUTPATIENT INFLUENZA, RSV PCR (08/06/2019 9:00 EDT) FLU A RNA Result (FLARES) Negative Negative 08/07/2019 12:38 EDT [facility] FLU B RNA Result (FLBRES) Negative Negative 08/07/2019 12:38 EDT [facility] RSV RNA Result (RSVRES) Negative Negative 08/07/2019 12:38 EDT [facility] Swab ENTIRE NASOPHARYNX / Unknown 08/06/2019 9:00 EDT 08/06/2019 18:56 EDT us Provider Unknown MICROBIOLOGY - GENERAL ORDER ALAN Final Result [facility] [address] [place] [address] documented in this encounter Visit Diagnoses Not on filedocumented in this encounter Care Teams Web Content Writer Relationship Specialty Start Date End Date Yehuda Stallworth DO [address] [place] [phone] PCP - General 05/15/16 10/15/21 Che Sharpe PA [address] [place] [address] [place] [address] PCP - General 10/16/21 Terry Hall MD [address] [place] [phone] 07/02/14 documented as of this encounter
--- OUTSIDE RECORDS SUMMARY | 2024-05-15 13:00 | XMS_ITS | Encounter Summary ---
Author Organization [facility] Address [address] [place] [address] Care Team Providers Care Search Marketing Coordinator Name Role Phone Terry Hall MD Primary Care Provider [phone] Terry Hall MD Unavailable Encounter Details Date Type Department Care Team (Late st Contact Info) Description 08/10/2015 Phlebotomy Only [facility] [address] [place] [address] [employer] [place], Outpatient Type 2 diabetes mellitus with hyperglycemia (CMS-HCC) ([facility]) (Primary Dx) Social History Tobacco Use Types [...] 08/10/2015 13:22 EDT documented in this encounter Progress Notes * Greta Galicia, COUNTY SHERIFF - 10/19/2015 7120 EDTQuick Note: Abnormal, please contact the patient to tell her about the results, no change in therapy is needed.Cholesterol level is elevated. Consider increasing pravachol. Can discuss at next spencer't. documented in this encounter Plan of Treatment Upcoming Encounters Date Type Department Care Team (Late st Contact Info) Description 07/23/2024 16:20 EDT Telemedicine [facility] Endocrinology - [address] [phone] Trini Hilario [address] [phone] documented as of this encounter Procedures Procedure Name Priority Date/Time Associated Diagnosis Comments THYROID CASCADE Routine 08/10/2015 14:11 EDT Type 2 diabetes mellitus with hyperglycemia ([facility]-HCC) ([facility]) URINE YOWHRZH-[id number]-ORXQIMXGIF RATIO (ACR) Routine 08/10/2015 14:11 EDT Type 2 diabetes mellitus with hyperglycemia (CMS-HCC) ([facility]) LIPID PROFILE (INCLUDES CHOLESTEROL, TRIGLYCERIDES, HDL, LDL) Routine 08/10/2015 14:11 EDT Type 2 diabetes mellitus with hyperglycemia (CMS-HCC) ([facility]) COMPREHENSIVE METABOLIC PANEL (CMP) Routine 08/10/2015 14:11 EDT Type 2 diabetes mellitus with hyperglycemia (CMS-HCC) ([facility]) documented in this encounter Results * THYROID CASCADE (08/10/2015 14:11 EDT) TSH 1.06 0.55 - 4.78 uIU/ml 08/10/2015 17:46 EDT [facility] Comment: TSH cascade is not recommended for patients in which pituitary or hypothalamic disorders are suspected. Blood specimen (specimen) BLOOD SPECIMEN / Unknown 08/10/2015 14:11 EDT 08/10/2015 15:20 EDT us Greta Galicia NP CHEMISTRY & BLOOD GAS ORDER ALAN Final Result [facility] [address] [place] [address] * (ABNORMAL) COMPREHENSIVE METABOLIC PANEL (CMP) (08/10/2015 14:11 EDT) Potassium 4.3 3.5 - 5.0 mEq/L 08/10/2015 16:24 [facility] Comment: Slight hemolysis Hemolysis may elevate potassium result. Sodium 137 136 - 145 mEq/L 08/10/2015 16:24 [facility] Comment:Slight hemolysis Chloride 98 96 - 110 mEq/L 08/10/2015 16:24 [facility] Comment:Slight hemolysis CO2 24 24 - 32 mEq/L 08/10/2015 16:24 [facility] Comment:Slight hemolysis Total Alkaline Phosphatase 74 38 - 126 U/L 08/10/2015 16:24 [facility] Comment: Slight hemolysis Hemolysis will decrease ALKP result Suggest re-evaluation if clinically indicated Bilirubin, Total 0.8 <1.4 mg/dl 08/10/19 16 16:24 [facility] Comment: Slight hemolysis Results may be affected due to hemolysis. AST 19 15 - 46 U/L 08/10/2015 16:24 [facility] Comment: Slight hemolysis Results may be affected due to hemolysis. ALT 19 <53 U/L 08/10/2015 16:24 [facility] Comment: Slight hemolysis Results may be affected due to hemolysis. Albumin 4.1 3.4 - 4.9 g/dl 08/10/2015 16:24 [facility] Comment: Slight hemolysis Results may be affected due to hemolysis. Total Protein 6.6 6.3 - 8.2 g/dl 08/10/2015 16:24 [facility] Comment: Slight hemolysis Results may be affected due to hemolysis. Creatinine 0.51(L) 0.52 - 1.04 mg/dl 08/10/2015 16:24 T [facility] Comment:Slight hemolysis GFR, Calculated 126 >60 ml/min/1.7 3m2 08/10/2015 16:24 [facility] Comment: eGFR calculated using CKD-EPI equation for non Americans. Multiply eGFR by 1.16 for Americans. BUN 11 10 - 26 mg/dl 08/10/2015 16:24 [facility] Comment: Slight hemolysis Results may be affected due to hemolysis. Calcium 9.0 8.5 - 10.5 mg/dl 08/10/2015 16:24 T [facility] Comment:Slight hemolysis Calculated Calcium 9.3 8.5 - 10.5 mg/dl 08/10/2015 16:24 [facility] Glucose, Serum 199(H) 70 - 100 mg/dl 08/10/2015 16:24 [facility] Comment: Slight hemolysis Results may be affected due to hemolysis. Fasting? Unknown 08/10/2015 14:11 T [facility] Blood specimen (specimen) BLOOD SPECIMEN / Unknown 08/10/2015 14:11 EDT 08/10/2015 15:20 EDT Greta Galicia COUNTY [employer]ERIFF CHEMISTRY & BLOOD GAS ORDER ALAN Final Result [facility] [address] [place] [address] * ALBUMIN, URINE (08/10/2015 14:11 EDT) Creatinine, Urn Branch 104.2 mg/dl 08/11/2015 9:20 EDT [facility] Ur Albumin mg/dl 0.8 mg/dl 08/11/2015 12:30 T [facility] Ur Alb ug/mg Crea 7.7 ug/mg Crea 08/11/2015 12:30 T [facility] Comment: Normal: <30 ug/mg creat High albuminuria: 30-300 ug/mg creat Very high albuminuria: >300 ug/mg creat Urine specimen (specimen) URINE / Unknown 08/10/2015 14:11 EDT 08/10/2015 15:22 EDT us Greta Galicia [employer]IFF CHEMISTRY & BLOOD GAS ORDER ALAN Final Result Performing Organization Address City/[facility]/ZIP Co de Phone Number [facility] [address] [place] [address] * LIPID PROFILE (INCLUDES CHOLESTEROL, TRIGLYCERIDES, HDL, LDL) (08/10/2015 14:11 EDT) Cholesterol 234 mg/dl 08/10/2015 16:24 EDT [facility] Comment: Slight hemolysis Desirable:<200 Borderline High:200-239 High:>tc=737 Triglycerides 209 mg/dl 08/10/2015 16:24 T [facility] Comment: Slight hemolysis Normal:<150 Borderline High:150-199 High:200-499 Very High:>ks=262 HDL 49 mg/dl 08/10/2015 16:24 T [facility] Comment: Slight hemolysis Low:<40 Normal:40-60 Desirable: >60 LDL, Calculated 143 mg/dl 6 16:24 T [facility] Comment: Optimal:<100 Near Optimal:100-129 Borderline High:130-159 High:160-189 Very High:>bv=790 Chol/HDL Ratio 4.8 08/10/2015 16:24 T [facility] Fasting? Unknown 08/10/2015 14:11 T [facility] Non HDL Cholesterol 185 mg/dl 08/10/2015 16:24 T [facility] Comment: Slight hemolysis Desirable:<130 Borderline:130-159 High: 160-189 Very High: >xp=830 Blood specimen (specimen) BLOOD SPECIMEN / Unknown 08/10/2015 14:11 EDT 08/10/2015 15:20 EDT us Greta Galicia COUNTY [employer]IFF CHEMISTRY & BLOOD GAS ORDER ALAN Final Result Performing Organization Address City/[facility]/ZIP Co de Phone Number [facility] [address] [place] [address] documented in this encounter Visit Diagnoses Diagnosis Type 2 diabetes mellitus with hyperglycemia (HCC-[facility])- Primary Type II or unspecified type diabetes mellitus without mention of complication, not stated as uncontrolled documented in this encounter Care Teams Search Marketing Coordinator Relationship Specialty Start Date End Date Terry Hall MD [address] [place] [phone] PCP - General 07/02/14 10/16/15 Terry Hall MD [address] [place] [phone] 07/02/14 documented as of this encounter
--- OUTSIDE RECORDS SUMMARY | 2024-05-15 13:00 | XMS_ITS | Encounter Summary ---
Author Organization [facility] Address [address] [place] [address] Care Team Providers Care It Consulting Manager Name Role Phone Terry Hall MD Unavailable Yehuda Stallworth DO Primary Care Provider Reason for Visit * Reason Onset Date Comments Prior Auth, Medication 05/25/2016 Clobetaso l 0.05% Encounter Details Date Type Department Care Team (Late st Contact Info) Description 05/25/2016 Telephone [facility] Dermatology 3rd Floor [facility] [address] [place] [address] Shannan Whelan MD [address] [place] [address] [place] [phone] Prior Auth, Medication (Clobetasol 0.05%) Social History [...] Refills Last Filled Start Date End Date augmented betamethasone dipropionate (DIPROLENE-AF) 0.05 % ointment Apply topically to affected area 2 times daily. 45 g 3 05/27/2016 2 documented in this encounter Miscellaneous Notes * Telephone Encounter - Shannan Whelan MD - 05/27/2016 0844 EST rx prescribed for betamethasone. Clobetasol discontinued. [...] Contact Info) Description 07/23/2024 16:20 EDT Telemedicine [facility] Endocrinology - [address] [address] Trini Hilario DO [address] [place] [phone] documented as of this encounter Visit Diagnoses Not on filedocumented in this encounter Discontinued Medications Medication Sig Discontinue Reason Start Date End Da te clobetasol (TEMOVATE) 0.05 % ointment Mix with the urea at night for your feet for redness. 05/23/2016 05/27/2016 documented as of this encounter Care Teams It Consulting Manager Relationship Specialty Start Date End Date Yehuda Stallworth DO [address] [place] [phone] PCP - General 05/15/16 10/15/21 Terry Hall MD [address] [place] [phone] 07/02/14 documented as of this encounter
--- OUTSIDE RECORDS SUMMARY | 2024-05-15 13:00 | XMS_ITS | Encounter Summary ---
Author Organization [facility] Address [address] [place] [address] Care Team Providers Care Steward/Stewardess Night Name Role Phone Terry Hall MD Unavailable Yehuda Stallworth DO Primary Care Provider Che Sharpe Primary Care Provider + Encounter Details Date Type Department Care Team (Late st Contact Info) Description 03/28/2020 Lab Requisition [facility] Pathology & Laboratory Medicine - [facility] [address] [place], [place] [phone] Outr Resulting Lab, Provider Social History Tobacco [...] Contact Info) Description 07/23/2024 16:20 EDT Telemedicine [facility] Endocrinology - [facility] [address] [place] [address] Trini Hilario DO [address] [place] [phone] documented as of this encounter Procedures Procedure Name Priority Date/Time Associated Diagnosis Comments CHLAMYDIA/N. GONORRHOEAE AMPLIFIED NUCLEIC ACID Routine 03/28/2020 14:49 EST documented in this encounter Results * CHLAMYDIA/N. GONORRHOEAE AMPLIFIED RNA (03/28/2020 14:49 EST) Neisseria gonorrhoeae Result Negative Negative 03/29/2020 13:18 EST [facility] Chlamydia trachomatis Result Negative Negative 03/29/2020 13:18 EST [facility] Swab ENTIRE VAGINA / Unknown 03/28/2020 14:49 EST 03/28/2020 23:00 EST us Provider Outr Resulting Lab MICROBIOLOGY - GENER AL ORDERABLES Final Result [facility] [address] [place] [address] documented in this encounter Visit Diagnoses Not on filedocumented in this encounter Care Teams Steward/Stewardess Night Relationship Specialty Start Date End Date Yehuda Stallworth DO [address] [place] [phone] PCP - General 05/15/16 10/15/21 Che Sharpe PA [address] [place] [address] [place] [phone] PCP - General 10/16/21 Terry Hall MD [address] [place] [address] 07/02/14 documented as of this encounter
--- OUTSIDE RECORDS SUMMARY | 2024-05-15 13:00 | XMS_ITS | Encounter Summary ---
Author Organization [facility] Address [address] [place] [address] Care Team Providers Care Digital Pre Press Operator Name Role Phone Terry Hall MD Unavailable Yehuda Stallworth DO Primary Care Provider Che Sharpe Primary Care Provider + Encounter Details Date Type Department Care Team (Late st Contact Info) Description 08/06/2019 Lab Requisition [facility] Pathology & Laboratory Medicine - [facility] [address] [place] [address] Jovan Esquivel MD [address] [place] [address] Encounter for other general examination Social History [...] Info) Description 07/23/2024 16:20 EDT Telemedicine [facility] Endocrinology - [facility] [address] [place] [address] Trini Hilario DO [address] [place] [phone] documented as of this encounter Procedures Procedure Name Priority Date/Time Associated Diagnosis Comments COVID-19 TESTING Today 08/06/2019 9:00 EDT Encounter for other general examination documented in this encounter Results * COVID-19 TESTING (08/06/2019 9:00 EDT) COVID-19 rt-PCR Result Negative Negative 08/07/2019 13:13 EDT [facility] Comment:Assayed at [place], [place] Swab ENTIRE NASOPHARYNX / Unknown 08/06/2019 9:00 EDT 08/06/2019 19:11 EDT Jovan Esquivel MD MICROBIOLOGY - GENERAL ORDERABL ES Final Result [facility] [place], [place] documented in this encounter Visit Diagnoses Diagnosis Encounter for other general examination documented in this encounter Care Teams Digital Pre Press Operator Relationship Specialty Start Date End Date Yehuda Stallworth DO [address] [place] [phone] PCP - General 05/15/16 10/15/21 Che Sharpe PA [address] [place] [address] [place] [phone] PCP - General 10/16/21 Terry Hall MD [address] [place] [address] 07/02/14 documented as of this encounter
--- OUTSIDE RECORDS SUMMARY | 2024-05-15 13:00 | XMS_ITS | Encounter Summary ---
Author Organization [facility] Address [address] [place] [address] Care Team Providers Care Real Estate Processor Name Role Phone Terry Hall MD Unavailable Yehuda Stallworth DO Primary Care Provider Reason for Visit * Reason Onset Date Comments New/Evolving Symptoms 05/21/2016 Dermatitis Encounter Details Date Type Department Care Team (Late st Contact Info) Description 05/21/2016 Telephone [facility] Dermatology 3rd Floor [facility] [address] [place] [address] Shannan Whelan MD [address] [place] [address] [place] [phone] New/Evolving Symptoms (Dermatitis) Social History Tobacco Use [...] 05/15/2016 14:59 EST documented in this encounter Miscellaneous Notes [...] long-term current use of insulin Dermatitis Department: [facility] Endocrinology T2 Diabetes right heal cracking dry. Using lotrimin, Eucerin, improves slightly but never resolves ?? Scheduling Time Frame: ?? documented in this encounter Plan of Treatment Upcoming Encounters Date Type Department Care Team (Late st Contact Info) Description 07/23/2024 16:20 EDT Telemedicine [facility] Endocrinology - [facility] [address] [place] [address] Trini Hilario DO [address] [place] [phone] documented as of this encounter Visit Diagnoses Not on filedocumented in this encounter Care Teams Real Estate Processor Relationship Specialty Start Date End Date Yehuda Stallworth DO [address] [place] [phone] PCP - General 05/15/16 10/15/21 Terry Hall MD [address] [place] [phone] 07/02/14 documented as of this encounter
--- OUTSIDE RECORDS SUMMARY | 2024-05-15 13:00 | XMS_ITS | Encounter Summary ---
Author Organization [facility] Address [address] [place] [address] Care Team Providers Care Mold Hoister Name Role Phone Terry Hall MD Unavailable Unknown, Provider MD Primary Care Provider Unava ilable Reason for Visit * Reason Onset Date Comments Prior Auth, Medication 01/12/2016 WELCHOL 6 25 MG TABLET Encounter Details Date Type Department Care Team (Late st Contact Info) Description 01/12/2016 Telephone [facility] Endocrinology - [facility] [address] [place] [address] Greta Galicia NP [address] [facility] [address] [place] [address] Prior Auth, Medication (WELCHOL 625 [...] with APPROVAL for: Drug NDC# and Name: [id number] - Welchol Tab 625 mg Tracking #: [id number] PA #: [id number] Dates: 01/12/2016 - 01/11/2017 Qty / Days Supply Restriction: 180 / 90 Medicaid ID#: [id number] Called pharmacy - they were just filling, will notify pt once ready for pick out hand. * Telephone Encounter - Teresita Dunne - 01/12/2016 0901 EDT Rcvd fax from pharmacy indicating PA required for Welchol 625 mg tablet. Completed [place] Medicaid PA Request form and e-filed using [email or web address] to initiate this process. documented in this encounter Plan of Treatment Upcoming Encounters Date Type Department Care Team (Late st Contact Info) Description 07/23/2024 16:20 EDT Telemedicine [facility] Endocrinology - [address] [phone] Trini Hilario DO [address] [place] [phone] documented as of this encounter Visit Diagnoses Not on filedocumented in this encounter Care Teams Mold Hoister Relationship Specialty Start Date End Date Unknown, MD Simone [address] [place] [address] PCP - General 10/17/15 05/14/16 Terry Hall MD [address] [place] [phone] 07/02/14 documented as of this encounter
--- OUTSIDE RECORDS SUMMARY | 2024-05-15 13:00 | XMS_ITS | Encounter Summary ---
Author Organization [facility] Address [address] [place] [address] Care Team Providers Care Account Supervisor Name Role Phone Terry Hall MD Unavailable Yehuda Stallworth DO Primary Care Provider Reason for Visit * Reason Onset Date Comments Diabetes 10/26/2016 Encounter Details Date Type Department Care Team (Late st Contact Info) Description 10/26/2016 Telephone [facility] Endocrinology - [facility] [address] [place] [address] Greta Galicia NP [address] [facility] [address] [place] [phone] Diabetes Social History Tobacco Use [...] Pt has moved out of state to [place] will establish care down there. Until then [...] EDT Telemedicine [facility] Endocrinology - [address] [address] Trini Hilario DO [address] [place] [phone] documented as of this encounter Visit Diagnoses Not on filedocumented in this encounter Care Teams Account Supervisor Relationship Specialty Start Date End Date Yehuda Stallworth DO [address] [place] [phone] PCP - General 05/15/16 10/15/21 Terry Hall MD [address] [place] [phone] 07/02/14 documented as of this encounter
--- OUTSIDE RECORDS SUMMARY | 2024-05-15 13:00 | XMS_ITS | Encounter Summary ---
Author Organization [facility] Address [address] [place] [address] Care Team Providers Care Turner Machine Operator Name Role Phone Terry Hall MD Unavailable Yehuda Stallworth DO Primary Care Provider Che Sharpe Primary Care Provider + Encounter Details Date Type Department Care Team (Late st Contact Info) Description 05/26/2020 Lab Requisition [facility] Pathology & Laboratory Medicine - [facility] [address] [place], [place] [phone] Outr Resulting Lab, Provider Social History Tobacco [...] 16:20 EDT Telemedicine [facility] Endocrinology - [facility] [address] [place] [address] Trini Hilario DO [address] [place] [phone] documented as of this encounter Procedures Procedure Name Priority Date/Time Associated Diagnosis Comments ZZCOVID-19 TEST [facility] PCR Today 05/26/2020 12:55 EST COVID-19 TESTING Routine 05/26/2020 12:5 5 EST documented in this encounter Results * COVID-19 TEST [facility] PCR (05/26/2020 12:55 EST) Swab ENTIRE NASOPHARYNX / Unknown 05/26/2020 12:55 EST 05/26/2020 22:18 EST us Provider Outr Resulting Lab MICROBIOLOGY - GENER AL ORDERABLES Final Result [facility] [address] [place] [address] * COVID-19 TESTING (05/26/2020 12:55 EST) COVID-19 rt-PCR Result Negative Negative 05/27/2020 13:59 EST [facility] Comment: This test has [...] was performed using the luis SARS-CoV-2 assay ([employer] on the Luis 6800 System Performing Lab Luis [address] [facility] 05/27/2020 13:59 EST [facility] Swab 05/26/2020 12:5 5 EST 05/26/2020 22:18 EST us Provider Outr Resulting Lab MICROBIOLOGY - GENER AL ORDERABLES Final Result Performing Organization Address City/State/[facility] Co de Phone Number [facility] [address] [place] [address] documented in this encounter Visit Diagnoses Not on filedocumented in this encounter Care Teams Turner Machine Operator Relationship Specialty Start Date End Date Yehuda Stallworth DO [address] [place] [phone] PCP - General 05/15/16 10/15/21 Che Sharpe PA [address] [place] [phone] PCP - General 10/16/21 Terry Hall MD [address] [place] [phone] 07/02/14 documented as of this encounter
--- OUTSIDE RECORDS SUMMARY | 2024-05-15 13:01 | XMS_ITS | Encounter Summary ---
Author Organization [facility] Address [address] [place] [address] Care Team Providers Care Box Chipper Name Role Phone Unavailable Primary Care Provider Unavailabl e Encounter Details Date Type Department Care Team (Late Contact Info) Description 10/13/2003 14:41 EDT Hospital Encounter [facility] - Other [address] [place] [address] Jr Choi MD 111 [facility], [facility], Level [address] [place] [address] Social History Tobacco Use Types [...] Department Care Team (Late Contact Info) Description 07/23/2024 16:20 EDT Telemedicine [facility] Endocrinology - [place] [address] [place], [place] [phone] Trini Hilario, DO [address] [place] [address] documented as of this encounter Procedures Procedure Name Priority Date/Time Associated Diagnosis Comments CYTOPATHOLOGY Routine 10/13/2003 0:00 EDT documented in this encounter Results * CYTOPATHOLOGY (10/13/2003 0:00 EDT) Pathology Report: CYTOPATHOLOGY REPORT Reports generated via electronic interface contain original data; however they are lacking the format of the original report. Caution should be taken when reading/interpreti ng unformatted reports. Name: ? EMAM MIN ? Accession #: ? [id number] : ? 1980 (Age: 23) ??F ?Collect [...] Date: ??10/20/2003 10:38 End of Report DANIEL SHOEMAKER 10/13/2003 10/15/2003 us Jr Choi MD PATHOLOGY ORDERABLES Final Result [facility] [address] [place] [address] documented in this encounter Visit Diagnoses Not on filedocumented in this encounter
--- OUTSIDE RECORDS SUMMARY | 2024-05-15 13:01 | XMS_ITS | Encounter Summary ---
Author Organization [facility] Address [address] [place] [address] Care Team Providers Care Consulting Psychologist Name Role Phone Unavailable Primary Care Provider Unavailabl e Encounter Details Date Type Department Care Team (Latest Contact Info) Description 07/25/2005 0:06 EDT - 07/25/2005 11:59 EDT Hospital Encounter [facility] - Main [place] [address] [place] [address] Emergency, Default, MD Discharge Disposition: Home or Self Care Social History Tobacco Use Types Packs/Day Years Used Date Smoking Tobacco: Never Assessed Comments Unknown Sex and Gender Information Value Date Recorded [...] 16:20 EDT Telemedicine [facility] Endocrinology - [address] [address] Trini Hilario, DO [address] [place] [phone] documented as of this encounter Procedures Procedure Name Priority Date/Time Associated Diagnosis Comments HOLD SST Routine 07/25/2005 1:52 EDT HOLD PURPLE TOP Routine 07/25/2005 1:52 EDT documented in this encounter Results * HOLD SST (07/25/2005 1:52 EDT) Hold SST Hold for further testing. Specimen will be held for 30 days. [facility] 07/25/2005 1:52 EDT 07/25/2005 1:57 EDT us Default Emergency MD LAB INFO SERVICE AND SUPPOR T & PHONE RESULT Final Result Performing Organization Address [facility] de Phone Number [facility] [address] [place] [address] * HOLD PURPLE TOP (07/25/2005 1:52 EDT) Hold Purple Top EDTA for hematology will be discarded after 48 hours, differential not available after 12 hours. [facility] 07/25/2005 1:52 EDT 07/25/2005 1:57 EDT us Default Emergency MD LAB INFO SERVICE AND SUPPOR T & PHONE RESULT Final Result Performing Organization Address [facility] de Phone Number [facility] [address] [place] [address] documented in this encounter Visit Diagnoses Not on filedocumented in this encounter
--- OUTSIDE RECORDS SUMMARY | 2024-05-15 13:01 | XMS_ITS | Encounter Summary ---
Author Organization [facility] Address [address] [place] [address] Care Team Providers Care Pouako Kura [place] Maori Name Role Phone Unavailable Primary Care Provider Unavailabl e Encounter Details Date Type Department Care Team (Late st Contact Info) Description 05/14/2003 0:25 EST - 05/14/2003 11:59 EST Hospital Encounter [facility] - Maple conversion [address] [place] [address] Donald Choi MD 111 [facility] 4 [place] [address] Discharge Disposition: Home or Self [...] Contact Info) Description 07/23/2024 16:20 EDT Telemedicine [facility] Endocrinology - [address] [phone] Trini Hilario, [address] [place] [address] documented as of this encounter Visit Diagnoses Not on filedocumented in this encounter
--- OUTSIDE RECORDS SUMMARY | 2024-05-15 13:01 | XMS_ITS | Encounter Summary ---
Author Organization [facility] Address [address] [place] [address] Care Team Providers Care Correction Officer Head Name Role Phone Unavailable Primary Care Provider Unavailabl e Encounter Details Date Type Department Care Team (Latest Contact Info) Description 11/12/2006 9:37 EDT - 11/12/2006 11:59 EDT Hospital Encounter [facility] - [address] [address] Jc Medina MD [facility] [address] [phone] Discharge Disposition: Auto Discharge Social [...] Contact Info) Description 07/23/2024 16:20 EDT Telemedicine [facility] Endocrinology - [address] [address] Trini Hilario, DO [address] [place] [phone] documented as of this encounter Visit Diagnoses Not on filedocumented in this encounter
--- OUTSIDE RECORDS SUMMARY | 2024-05-15 13:01 | XMS_ITS | Encounter Summary ---
Author Organization [facility] Address [address] [place] [address] Care Team Providers Care Regional Sales Consultant Name Role Phone Unavailable Primary Care Provider Unavailabl e Encounter Details Date Type Department Care Team (Late st Contact Info) Description 08/03/2005 11:13 EDT - 08/03/2005 11:59 EDT Hospital Encounter [facility] - Other [address] [place] [address] Mago Ravi MD 111 [facility] 4 [place] [address] Discharge Disposition: Home or Self [...] Contact Info) Description 07/23/2024 16:20 EDT Telemedicine [facility] Endocrinology - [address] [phone] Trini Hilario, [address] [place] [address] documented as of this encounter Visit Diagnoses Not on filedocumented in this encounter
--- OUTSIDE RECORDS SUMMARY | 2024-05-15 13:01 | XMS_ITS | Encounter Summary ---
Author Organization [facility] Address [address] [place] [address] Care Team Providers Care Carpenter Streetcar Name Role Phone Unavailable Primary Care Provider Unavailabl e Encounter Details Date Type Department Care Team (Late Contact Info) Description 06/04/2003 16:42 EST Hospital Encounter [facility] - Other [address] [place] [address] Frederick Pantoja MD [address] [place] [address] Social History Tobacco Use Types Packs/Day Years [...] [facility] Endocrinology - [address] [phone] Trini Hilario, DO [address] [place] [phone] documented as of this encounter Visit Diagnoses Not on filedocumented in this encounter
--- OUTSIDE RECORDS SUMMARY | 2024-05-15 13:01 | XMS_ITS | Encounter Summary ---
Author Organization [facility] Address [address] [place] [address] Care Team Providers Care Car Painter Name Role Phone Unavailable Primary Care Provider Unavailabl e Encounter Details Date Type Department Care Team (Late Contact Info) Description 10/13/2004 23:08 EDT Hospital Encounter [facility] - Other [address] [place] [address] Chelsie Veronica MD [address] [place] [id number] Social History Tobacco Use Types Packs/Day Years [...] Contact Info) Description 07/23/2024 16:20 EDT Telemedicine [facility] Endocrinology - [address] [address] Trini Hilario, DO [address] [place] [phone] documented as of this encounter Visit Diagnoses Not on filedocumented in this encounter
--- OUTSIDE RECORDS SUMMARY | 2024-05-15 13:01 | XMS_ITS | Encounter Summary ---
Author Organization [facility] Address [address] [place] [address] Care Team Providers Care Genetics Physician Name Role Phone Unavailable Primary Care Provider Unavailabl e Encounter Details Date Type Department Care Team (Latest Contact Info) Description 01/16/2006 10:34 EDT - 01/16/2006 11:59 EDT Hospital Encounter [facility] - Other [address] [place] [address] Leeanna Cohn MD [address] [place], [place] [address] Discharge Disposition: Home or Self Care Social [...] Contact Info) Description 07/23/2024 16:20 EDT Telemedicine [facility] Endocrinology - [address] [phone] Trini Hilario, DO [address] [place] [phone] documented as of this encounter Procedures Procedure [...] [facility] Comment: Desirable:<200 Borderline:200-239 High Risk:>bi=595 Triglycerides 148 35 - 160 mg/dl [facility] HDL 44 mg/dl [facility] Comment: Highly Desirable:>60 Desirable:35-60 High Risk:<35 LDL, Calculated 184 mg/dl [facility] Comment: Desirable:<130 Borderline:130-159 High Risk:>ca=976 Chol/HDL Ratio 5.9 [facility] Fasting? Yes [facility] 01/16/2006 11:3 0 EDT 01/16/2006 21:09 EDT Leeanna Cohn MD CHEMISTRY & BLOOD GAS ORDER ALAN Final Result [facility] [address] [place] [address] * (ABNORMAL) HEMAGRAM (01/16/2006 11:30 EDT) WBC [...] EDT Leeanna Cohn MD HEMATOLOGY & PF4 ORDERABLES Final Result Performing Organization Address City/[facility] Co de Phone Number [facility] [address] [place] [address] * BASIC METABOLIC PANEL (01/16/2006 11:30 EDT) [...] EDT Leeanna Cohn MD CHEMISTRY & BLOOD GAS ORDER ALAN Final Result Performing Organization Address City/[facility] Co de Phone Number [facility] [address] [place] [address] documented in this encounter Visit Diagnoses Not on filedocumented in this encounter
--- OUTSIDE RECORDS SUMMARY | 2024-05-15 13:01 | XMS_ITS | Encounter Summary ---
Author Organization [facility] Address [address] [place] [address] Care Team Providers Care Protective Officer Name Role Phone Unavailable Primary Care Provider Unavailabl e Encounter Details Date Type Department Care Team (Late st Contact Info) Description 08/03/2005 Results Only [facility] - Maple conversion [address] [place] [address] Philly Ravi MD 111 [facility], [facility] [address] [place] [address] Social History Tobacco Use Types [...] Contact Info) Description 07/23/2024 16:20 EDT Telemedicine [facility] Endocrinology - [address] [address] Trini Hilario, DO [address] [place] [phone] documented as of this encounter Procedures Procedure [...] ? EMMA MIN ? Accession #: ? [id number] : ? 1980 (Age: 25) ??F ?Collect Date: ? 08/03/2005 Location: ? [facility] ? Receive Date: ? 08/06/2005 Provider: ?PHILLY RAVI MD Copy to: ?DOC BONNER MD ? Specimen/Source: ?ThinPrep Pap Test, Cervix/Endocervix, processed on [employer] ThinPrep Imaging System, with manual evaluation Last Menstrual Period: ? 09/05/04 Menstrual/Pregnanc y Status: ? Post Previous Gynecologic Pathology: ? LSIL: 04/ ? SPECIMEN ADEQUACY ? Satisfactory for Evaluation - transformation zone component present GENERAL CATEGORIZATION ? Negative for Intraepithelial Lesion or Malignancy ? Document reviewed and electronically signed by: ? Mini Harris, EDVIN(ASCP) ? Report Date: ??08/08/2005 09:21 End of Report DANIEL SHOEMAKER 08/03/2005 08/06/2005 us Philly Ravi MD PATHOLOGY ORDERABLES Final R esult Performing Organization Address City/State/[facility] Co de Phone Number [facility] [address] [address] documented in this encounter Visit Diagnoses Not on filedocumented in this encounter
--- OUTSIDE RECORDS SUMMARY | 2024-05-15 13:01 | XMS_ITS | Encounter Summary ---
Author Organization [facility] Address [address] [place] [address] Care Team Providers Care Superintendent Transportation Name Role Phone Terry Hall MD Primary Care Provider [phone] Terry Hall MD Unavailable Encounter Details Date Type Department Care Team (Late st Contact Info) Description 09/23/2014 Orders Only [facility] Endocrinology - [facility] [address] [place] [address] Camila Sewell CDE 62 [facility] [address] [place] [address] Type II or unspecified type [...] of this encounter Ordered Prescriptions Prescription Sig Dispense Quantity Refills Last Filled Start Date End Date insulin pen needles 31G x 3/16Indications:T ype II or unspecified type diabetes mellitus without mention of complication, uncontrolled Use 4 pen needles as directed daily Brand: BD Ultra Fine Mini 400 Each 3 09/23/2014 6 documented in this encounter Plan of Treatment Upcoming Encounters Date Type Department Care Team (Late st Contact Info) Description 07/23/2024 16:20 EDT Telemedicine [facility] Endocrinology - [place] [address] [place] [address] Trini Hilario, DO [address] [place] [phone] documented as of this encounter Visit Diagnoses [...] documented as of this encounter Care Teams Superintendent Transportation Relationship Specialty Start Date End Date Terry Hall MD [address] [place] [address] PCP - General 07/02/14 10/16/15 Terry Hall MD [address] [place] [address] 07/02/14 documented as of this encounter
--- OUTSIDE RECORDS SUMMARY | 2024-05-15 13:01 | XMS_ITS | Encounter Summary ---
Author Organization [facility] Address [address] [place] [address] Care Team Providers Care Fagoting Machine Operator Name Role Phone Terry Hall MD Primary Care Provider [phone] Encounter Details Date Type Department Care Team (Late Contact Info) Description 06/30/2014 Orders Only [facility] Employee Health - [address] [address] Swapna Diaz, RN VNA [address] [place], [place] [phone] Antibody response examination (Primary Dx); Screening examination [...] Contact Info) Description 07/23/2024 16:20 EDT Telemedicine [facility] Endocrinology - [address] [phone] Trini Hilario, DO [address] [place] [phone] documented as of this encounter Results * TB BY QUANTIFERON, B (07/01/2014 13:47 EDT) TB Interpretation Negative 015 16:38 EDT [facility] Comment:Reference Range: Neg ative TB Antigen Value 0.00 IU/mL 07/07/19 15 16:38 EDT [facility] Comment: This is a [...] 15:30 EDT Phill Agustin MD CHEMISTRY & BLOOD GAS O RDERABLES Final Result [facility] [address] [place] [address] * VARICELLA IGG ANTIBODY (07/01/2014 13:47 EDT) Pathologist [facility] Varicella IgG Ab Interpretati on: Positive 07/02/2014 12:49 EDT [facility] Comment: Presence of detectable Varicella Zoster virus IgG antibodies. Blood specimen (specimen) BLOOD SPECIMEN / Unknown 07/01/2014 13:47 EDT 07/01/2014 15:40 EDT Phill Agustin MD IMMUNOLOGY AND SEROLOGY ORDERABLES Final Result [facility] [address] [place] [address] * HEPATITIS B SURFACE ANTIBODY (07/01/2014 13:47 EDT) Pathologist [facility] Hepatitis B Surface Ab Negative 07/02/2014 11:45 EDT [facility] Comment: Reference Range: Unvaccinated: ??Negative Vaccinated: ??Positive HBs Antibody, Quant <5.0 mIU/mL 07/02/2014 11:45 EDT [facility] Comment: Patient is presumed to not be immune to infection with HBV. Reference Range: Positive: >=12.0 mIU/mL Indeterminate: >=5.0 to <12.0 mIU/mL Negative: <5.0 mIU/mL Blood specimen (specimen) BLOOD SPECIMEN / Unknown 07/01/2014 13:47 EDT 07/01/2014 15:40 EDT us Phill Agustin MD CHEMISTRY & BLOOD GAS O RDERABLES Final Result [facility] [address] [place] [address] documented in this encounter Visit Diagnoses Diagnosis Antibody response examination- Primary Screening examination for pulmonary tuberculosis documented in this encounter Care Teams Fagoting Machine Operator Relationship Specialty Start Date End Date Terry Hall MD [address] [place] [address] PCP - General 06/03/14 07/01/14 documented as of this encounter
--- OUTSIDE RECORDS SUMMARY | 2024-05-15 13:01 | XMS_ITS | Encounter Summary ---
Author Organization [facility] Address [address] [place] [address] Care Team Providers Care Bird Raiser Name Role Phone Terry Hall MD Primary Care Provider [phone] Terry Hall MD Unavailable Reason for Referral * Consult (Routine) - Closed Specialty Diagnoses / Procedures Referred By Contlaura t Referred To Contact Endocrinology Diagnoses Type II or unspecified type diabetes mellitus without mention of complication, uncontrolled Greta Galicia NP Phone: tel: fax: [facility] Endocrinology - [address] [address] Phone: tel: fax: Referral ID Status Reason Start Date Expiration Date V isits Requested Visits Authorized [id number] Closed Specialty Services Required 09/23/2014 1 1 Question Answer Reason for Request: Nutrition and DM management with insulin Reason for Visit * Reason Comments Diabetes Encounter Details Date Type Department Care Team (Latest Contact Info) Description 09/23/2014 8:20 EDT Office Visit [facility] Endocrinology - [facility] [address] [place] [address] Greta Galicia NP 62 [facility] [address] [place] [address] Type II or unspecified type [...] E DT Height 162.6 cm (5' 4) 09/23/2014 08 EDT Body Mass Index 33.87 09/23/2014 08 [...] daily Call in blood sugars next week- [phone] And ask to speak with Camila Blood [...] decreasing calories and carbohydrates in your diet. Tow Mate needed: Yes Exercise: Please try to exercise [...] Plan and call the Diabetes Center at [phone] for questions or concerns about your blood [...] temperature for 28 days Please call the [facility] at [phone] with any questions. Your Current dose is [...] effectiveness of the insulin Please call the [facility] at [phone] with any questions. documented in this encounter Ordered Prescriptions Prescription Sig Dispense Quantity Refills Last Filled Start Date End Date blood glucose (FREESTYLE INSULINX) test stripsIndications: Type II or unspecified type diabetes mellitus without mention of complication, uncontrolled Use 4 Strips as directed daily On basal bolus insulin 300 Each 3 09/23/2014 6 insulin pen needles 31G x 07/05Indications:T ype II or unspecified type diabetes mellitus without mention of complication, uncontrolled Use as directed daily Brand: BD Ultra Fine Mini 100 Each 12 09/23/2014 5 metFORMIN (GLUCOPHAGE-XR) 500 mg ER tabletIndications: Type II or unspecified type diabetes mellitus without mention of complication, uncontrolled Take 1 Tab by mouth daily 90 Tab 3 09/23/2014 6 insulin aspart (NOVOLOG FLEXPEN) 100 unit/mL injectable penIndications:Typ e II or unspecified type diabetes mellitus without mention of complication, uncontrolled Inject 8 Units into the skin 3 times daily with meals 1 Box 11 09/23/2014 6 insulin glargine (LANTUS SOLOSTAR) 100 unit/mL (3 mL) injection penIndications:Typ e II or unspecified type diabetes mellitus without mention of complication, uncontrolled Inject 45 Units into the skin at bedtime 1 Box 11 09/23/2014 6 documented in this encounter Discharge Disposition Disposition [...] 2 Diabetes. Diabetes diagnosed 2004. Initially from [place] moved back to [facility] 6 months ago from [facility]. Due to marital problems. Divorce recently finalized. States when she left [place] in March hemoglobin A1c was in the7 [...] other subspecialties: Has established a PCP in [place] Changes in other pertinent medications: No. 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 She is on the state health [...] has lost weight since moving back to [place] was 220 lbs in April Wt Readings [...] Rubber Swelling and Rash labs done at [facility] creatinine 0.71, GFR greater than 60, potassium 4.2, all other electrolytes as well as liver function tests within normal limits. ROS - See HPI Objective: BP 105/61 Pulse 86 Ht 162.6 cm (64) Wt 89.495 kg (197 lb 4.8 oz) BMI 33.85 kg/m2 LMP (Approximate) Physical Exam A1C today: 10.0 noted to be 7.8 at [facility] in May. Weight and changes: See above. Blood Pressure is: At goal. Lipids: Done at [facility] total cholesterol 214, HDL 42, LDL 149, [...] had worsening control since moving back to [place] from [place]. She has lost weight this could be [...] we will send her on to a museum educator. I will see him back in [...] daily Call in blood sugars next week- [phone] And ask to speak with Camila Blood [...] decreasing calories and carbohydrates in your diet. Tow Mate needed: Yes Exercise: Please try to exercise [...] Plan and call the Diabetes Center at [phone] for questions or concerns about your blood [...] temperature for 28 days Please call the [facility] [place] at [phone] with any questions. Your Current dose is [...] effectiveness of the insulin Please call the [facility] at [phone] with any questions. Emma was seen today [...] x 3/16; Use as directed daily Brand: BD Ultra Fine Mini - blood glucose (FREESTYLE [...] Info) Description 07/23/2024 16:20 EDT Telemedicine [facility] Endocrinology - [address] [address] Trini Hilario DO [address] [place] [phone] Scheduled Referrals Name Type Priority Associated Diagnoses [...] (09/23/2014 8:29 EDT) Hemoglobin A1c, POC 10.0(A) <=5.7 % POINT OF CARE 09/23/2014 8:29 EDT [...] may reflect changes made after this encounter. insulin glargine (LANTUS) 100 unit/mL injection Inject 50 Units into the skin at bedtime 09/23/2014 insulin lispro (HUMALOG) 100 unit/mL vial Inject 26 Units into the skin 3 times daily before meals 09/23/2014 metFORMIN (GLUCOPHAGE) 1,000 mg tablet Take 1,000 mg by mouth 2 times daily 09/23/2014 added in this encounter Care Teams Bird Raiser Relationship Specialty Start Date End Date Terry Hall MD [address] [place] [address] PCP - General 07/02/14 10/16/15 Terry Hall MD [address] [place] [address] 07/02/14 documented as of this encounter
--- OUTSIDE RECORDS SUMMARY | 2024-05-15 13:01 | XMS_ITS | Encounter Summary ---
Author Organization [facility] Address [address] [place] [address] Care Team Providers Care Inseamer Name Role Phone Terry Hall MD Primary Care Provider [phone] Encounter Details Date Type Department Care Team (Late Contact Info) Description 07/01/2014 Orders Only [facility] - [address] [phone] Iris Tran RN Social History Tobacco Use Types Packs/Day [...] EDT Telemedicine [facility] Endocrinology - [place] [address] [place] [phone] Trini Hilario, DO [address] [place] [phone] documented as of this encounter Visit Diagnoses Not on filedocumented in this encounter Care Teams Inseamer Relationship Specialty Start Date End Date Terry Hall MD [address] [place] [address] PCP - General 06/03/14 07/01/14 documented as of this encounter
--- OUTSIDE RECORDS SUMMARY | 2024-05-15 13:01 | XMS_ITS | Encounter Summary ---
Author Organization [facility] Address [address] [place] [address] Care Team Providers Care Warehouse Stock Clerk Name Role Phone Unavailable Primary Care Provider Unavailabl e Encounter Details Date Type Department Care Team (Late st Contact Info) Description 06/21/2005 20:01 EST Hospital Encounter [facility] Unit [address] [place], [place] [address] Mago Ravi MD 111 [facility] 4 [place] [address] Discharge Disposition: Home or Self [...] Info) Description 07/23/2024 16:20 EDT Telemedicine [facility] Endocrinology - [address] [phone] Trini Hilario, [address] [place] [address] documented as of this encounter Procedures Procedure Name Priority Date/Time Associated Diagnosis Comments COMPLETE BLOOD COUNT Routine 06/21/2005 21:35 EST URINALYSIS WITH MICROSCOPIC IF POSITIVE Routine 06/21/2005 21:14 EST UA REFLEX Routine 06/21/2005 21:14 EST URINE CULTURE IF POSITIVE Routine 06/21/2005 21:14 EST documented in this encounter Results * (ABNORMAL) HEMAGRAM (06/21/2005 21:35 EST) WBC 8.28 4.0 - 12.4 K/cmm [facility] RBC 3.57(L) 3.86 - 5.04 [...] LAB RDW-CV 13.5 11.7 - 14.6 % [facility] 06/21/2005 21:3 5 EST 06/21/2005 22:08 EST us Mago Ravi MD HEMATOLOGY & PF4 ORDERABLES Final Result [facility] [address] [place] [address] * UA REFLEX (06/21/2005 21:14 EST) UA Billing Microscopic not indicated. [facility] 06/21/2005 21:1 4 EST 06/21/2005 21:29 EST us Mago Ravi MD URINALYSIS ORDERABLES Final Result Performing Organization Address [facility] Co de Phone Number [facility] [address] [place] [address] * (ABNORMAL) URINALYSIS (06/21/2005 21:14 EST) Color, UA Yellow [facility] Clarity, UA Clear [facility] Glucose, UA Norm NORM [facility] Bilirubin, UA Neg NEG FLEALLAN ER [facility] Ketones, UA Trace(A) NEG [facility] Specific [place], Urine >1.030(H) 1.005 - 1.02 [facility] Blood, UA Neg NEG [facility] pH, UA 6.0 5.0 - 9.0 [facility] Protein, UA 1+(A) NEG [facility] Urobilinogen, UA 1.0(A) NORM mg/dL [facility] Nitrite, UA Neg NEG [facility] Leuk Esterase Neg NEG FLEALLAN ER [facility] Refractometer SG,Urine 1.034(H) 1.005 - 1.02 [facility] Comment:Refractometer specif ic gravity 06/21/2005 21:1 4 EST 06/21/2005 21:29 EST us Mago Ravi MD URINALYSIS ORDERABLES Final Result Performing Organization Address [facility] de Phone Number [facility] [address] [place] [address] * CULTURE IF UA POSITIVE (06/21/2005 21:14 EST) Culture if Indicated Culture not indicated by urinalysis results. [facility] 06/21/2005 21:1 4 EST 06/21/2005 21:29 EST Mago Ravi MD MICROBIOLOGY - GENERAL ORDER ALAN Final Result Performing Organization Address [facility] Co de Phone Number [facility] [address] [place] [address] documented in this encounter Visit Diagnoses Not on filedocumented in this encounter
--- OUTSIDE RECORDS SUMMARY | 2024-05-15 13:01 | XMS_ITS | Encounter Summary ---
Author Organization [facility] Address [address] [place] [address] Care Team Providers Care Soil Field Technician Name Role Phone Unavailable Primary Care Provider Unavailabl e Encounter Details Date Type Department Care Team (Late Contact Info) Description 10/26/2004 19:12 EDT Hospital Encounter [facility] [address] [place] [address] Frederick Pantoja MD [address] [place] [address] Social History Tobacco Use Types Packs/Day Years [...] [facility] Endocr[facility]ology - [address] [phone] Trini Hilario, DO [address] [place] [phone] documented as of this encounter Visit Diagnoses Not on filedocumented in this encounter
--- OUTSIDE RECORDS SUMMARY | 2024-05-15 13:01 | XMS_ITS | Encounter Summary ---
Author Organization [facility] Address [address] [place] [address] Care Team Providers Care Supervisor Carbon Paper Coating Name Role Phone Unavailable Primary Care Provider Unavailabl e Encounter Details Date Type Department Care Team (Late st Contact Info) Description 10/26/2004 Results Only [facility] - Maple conversion [address] [place], [place] [address] Abdulaziz Reeves MD [address] [place] [phone] Social History Tobacco Use Types Packs/Day [...] Description 07/23/2024 16:20 EDT Telemedicine [facility] Endocrinology - [address] [address] Trini Hilario, DO [address] [place] [phone] documented as of this encounter Procedures Procedure [...] ? EMMA MIN ? Accession #: ? [id number] : ? 1980 (Age: 24) ??F ?Collect Date: ? 10/26/2004 Location: ? [facility] ? Receive Date: ? 10/26/2004 Provider: ?ABDULAZIZ REEVES MD Copy to: ? Specimen/Source: ?ThinPrep Pap Test, Cervix/Endocervix, processed on i[employer] ThinPrep Imaging System, with manual evaluation Last [...] End of Report DANIEL SHOEMAKER 10/26/2004 10/26/2004 us Abdulaziz Reeves MD PATHOLOGY ORDERABLES Lara nava Result Performing Organization Address City/State/[facility] Co de Phone Number DANIEL [address] [address] documented in this encounter Visit Diagnoses Not on filedocumented in this encounter
--- OUTSIDE RECORDS SUMMARY | 2024-05-15 13:01 | XMS_ITS | Encounter Summary ---
Author Organization [facility] Address [address] [place] [address] Care Team Providers Care Hair Spinner Name Role Phone Unavailable Primary Care Provider Unavailabl e Encounter Details Date Type Department Care Team (Late st Contact Info) Description 09/22/2004 Office Visit [facility] [place] conversion [address] [place] [address] Pj Byrne PA [address] [place] [address] Social History Tobacco Use Types Packs/Day Years [...] present (sp cholescysectome 10 months ago in [facility]. pain free for the first 5 months. [...] patient was discharged home and accompanied by test conductor. The patient left the Emergency Department ambulatory and via private vehicle. --1348 Trena Ford R.N., R.N. Lina Kilo Locked/Released at09/22/2004 13:48 by Marija Galvez R.N. documented in this encounter Plan of Treatment Upcoming Encounters Date Type Department Care Team (Late st Contact Info) Description 07/23/2024 16:20 EDT Telemedicine [facility] Endocrinology - [address] [phone] Trini Hilario, DO [address] [place] [phone] documented as of this encounter Visit Diagnoses Not on filedocumented in this encounter
--- OUTSIDE RECORDS SUMMARY | 2024-05-15 13:01 | XMS_ITS | Encounter Summary ---
Author Organization [facility] Address [address] [place] [address] Care Team Providers Care Gin Clerk Name Role Phone Unavailable Primary Care Provider Unavailabl e Encounter Details Date Type Department Care Team (Latest Contact Info) Description 06/16/2003 10:30 EST - 06/18/2003 11:59 EST Hospital Encounter [facility] Mother/Baby Unit [address] [place], [place] [address] Abdulaziz Reeves MD [address] [place] [address] Discharge Disposition: Home-Health Care Svc Social History [...] Info) Description 07/23/2024 16:20 EDT Telemedicine [facility] Endocrinology - [address] [address] Trini Hilario, DO [address] [place] [address] documented as of this encounter [...] less than 1 0 - 5 /HPF [facility] Squam Epithel, UA Many(A) NS /HPF [facility] Renal Epithel, UA None seen NS /HPF [facility] Bacteria, UA None seen NS /HPF [facility] Crystals, UA None seen /HPF [facility] Hyaline Casts, UA None seen /LPF [facility] UA Comment Microscopic results are unreliable on urines unrefrig >2hrs or refrig >8hrs. [facility] 06/16/2003 13:3 0 EST 06/16/2003 13:30 EST Abdulaziz Reeves MD URINALYSIS ORDERABLES Fin al Result [facility] [address] [place] [address] * (ABNORMAL) URINALYSIS (06/16/2003 13:30 EST) Color, UA Yellow [facility] Clarity, UA Clear [facility] Glucose, UA Norm NORM [facility] Bilirubin, UA Neg NEG LANDON ER [facility] Ketones, UA Trace(A) NEG [facility] Specific [place], Urine >1.030(H) 1.005 - 1.02 [facility] Blood, UA Neg NEG [facility]ANILE [facility] pH, UA 6.0 5.0 - 9.0 [facility] Protein, UA 2+(A) NEG [facility] Urobilinogen, UA Norm NORM mg/dL [facility] Nitrite, UA Neg NEG [facility] Leuk Esterase Trace(A) NEG LANDON [facility] Refractometer SG,Urine 1.024 1.005 - 1.02 [facility] Comment:Refractometer specif ic gravity 06/16/2003 13:3 0 EST 06/16/2003 13:30 EST us Abdulaziz Reeves MD URINALYSIS ORDERABLES Fin al Result [facility] [address] [place] [address] * (ABNORMAL) HEMAGRAM AND DIFFERENTIAL (06/16/2003 11:54 EST) WBC 7.53 4.0 - 12.4 K/cmm [facility] RBC 3.90 3.86 - 5.04 M/cmm [facility] Hemoglobin 13.0 11.6 - 15.2 gm/dl [facility] HCT 38.1 34.9 - 44.4 % [facility] MCV 98 81 - 98 fl [facility] MCH 33.5(H) 26.7 - 33.3 pg [facility] MCHC 34.2 32.1 - 35.9 gm/dl [facility] PLT 144 141 - 320 K/cmm [facility] RDW-CV 12.9 11.7 - 14.6 % [facility] % Neutrophils 78.6 45.5 - 79.7 % [facility] % Lymphocytes 16.5 15.0 - 46.8 % [facility] % Monocytes 4.2 1.8 - 12.0 % [facility] % Eosinophils 0.4(L) 0.6 - 6.9 % [facility] % Basophils 0.3 0.2 - 1.4 % [facility] ABS Neutrophils 5.92 2.20 - 8.85 K/cmm [facility] ABS Lymphs 1.24 1.09 - 3.30 K/cmm [facility] ABS Monocytes 0.31 0.1 - 0.8 K/cmm [facility] ABS Eosinophils 0.03 0.03 - 0.61 K/cmm [facility] ABS Basophils 0.02 0.01 - 0.11 K/cmm [facility] Type of Diff: Automated [facility] 06/16/2003 11:5 4 EST 06/16/2003 11:54 EST us Abdulaziz Reeves MD PACKAGES & DNA PROBE RUTH VILLA Final Result [facility] [address] [place] [address] * SURGICAL PATHOLOGY (06/16/2003 0:00 EST) Pathology Report: SURGICAL PATHOLOGY REPORT Reports generated via electronic interface contain original data; however they are lacking the format of the original report. Caution should be taken when reading/interpreti ng unformatted reports. Name: ? EMMA MIN ? Accession #: ? [id number] ? : ? 1980 (Age: 23) ??F ? Collect Date: ? 06/16/2003 ? Location: ? SB05 ? Receive Date: ? 06/17/2003 ? Provider: ABDULAZIZ REEVES MD Copy to: JR WORTHY MD ? Final Pathologic Diagnosis: ? Term holguin placenta: 1. ?Umbilical cord with velamentous insertion. 2. ? membranes and placenta with no abnormalities. Document reviewed and electronically signed by: Felciita Thompson MD Report ??Date: 06/25/2003 17:00 By [...] beefy tissue. ??There are no visible infarcts. ??Pre Planning Advisor sections are submitted as follows: BLOCK BOLTON A1 ?Two employment program representative sections umbilical cord and one employment program representative section membranes A2,A3 ?Two employment program representative sections of placental disc (Dr. Haile)/[facility] End of Report DANIEL SHOEMAKER 06/16/2003 06/17/2003 8:5 8 EST us Abdulaziz Reeves MD PATHOLOGY ORDERABLES Lara brandy Result [facility] [address] [place] [address] documented in this encounter Visit Diagnoses Not on filedocumented in this encounter
--- OUTSIDE RECORDS SUMMARY | 2024-05-15 13:01 | XMS_ITS | Encounter Summary ---
Author Organization [facility] Address [address] [place] [address] Care Team Providers Care Gas Or Water Meter Installer Name Role Phone Unavailable Primary Care Provider Unavailabl e Encounter Details Date Type Department Care Team (Latest Contact Info) Description 11/15/2006 11:25 EDT - 11/15/2006 11:[address] [facility] [address] [place] [address] [place] [address] [place] [phone] Discharge Disposition: Auto Discharge Social History [...] Contact Info) Description 07/23/2024 16:20 EDT Telemedicine [facility] Endocrinology - [address] [address] Trini Hilario, DO [address] [place] [phone] documented as of this encounter Visit Diagnoses Not on filedocumented in this encounter
--- OUTSIDE RECORDS SUMMARY | 2024-05-15 13:01 | XMS_ITS | Encounter Summary ---
Author Organization [facility] Address [address] [place] [address] Care Team Providers Care Kiln Setter Name Role Phone Unavailable Primary Care Provider Unavailabl e Encounter Details Date Type Department Care Team (Latest Contact Info) Description 07/05/2006 22:47 EDT Hospital Encounter [facility] - [address] [address] Leeanna Cohn MD [address] [place] [address] Discharge Disposition: Home or Self Care Social [...] Description 07/23/2024 16:20 EDT Telemedicine [facility] Endocrinology - [address] [address] Trini Hilario, DO [address] [place] [phone] documented as of this encounter Procedures Procedure [...] text has not been altered. Addendum Ends us Fidel Figueroa MD IMG MRI ORDERABLES Final Re sult * TSH (07/05/2006 16:00 EDT) TSH 1.91 0.35 - 5.00 uIU/mL [facility] 07/05/2006 16:0 0 EDT 07/05/2006 20:27 EDT us Leeanna Cohn MD CHEMISTRY & BLOOD GAS ORDER ALAN Final Result [facility] [address] [place] [address] documented in this encounter Visit Diagnoses Not on filedocumented in this encounter
--- OUTSIDE RECORDS SUMMARY | 2024-05-15 13:01 | XMS_ITS | Encounter Summary ---
Author Organization [facility] Address [address] [place] [address] Care Team Providers Care Pricing Actuary Name Role Phone Unavailable Primary Care Provider Unavailabl e Encounter Details Date Type Department Care Team (Late st Contact Info) Description 06/22/2005 9:26 EST - 06/24/2005 11:59 EST Hospital Encounter [facility] Mother/Baby Unit [address] [place] [address] Mago Ravi MD [address] [facility] 4 [place] [address] Discharge Disposition: Home-Health Care Svc [...] EDT Telemedicine [facility] Endocrinology - [address] [phone] Trini Hilario DO [address] [place] [address] documented as of this encounter [...] [facility] Type of Diff: Automated [facility] 06/22/2005 13:5 5 EST 06/22/2005 16:15 EST us Mago Ravi MD PACKAGES & DNA PROBE ORDERAB LES Final Result Performing Organization Address City/State/[facility] Co de Phone Number DANIEL SUAREZ [facility] [address] [place] [address] documented in this encounter Visit Diagnoses Not on filedocumented in this encounter
--- OUTSIDE RECORDS SUMMARY | 2024-05-15 13:01 | XMS_ITS | Encounter Summary ---
Author Organization [facility] Address [address] [place] [address] Care Team Providers Care Deputy County Clerk Name Role Phone Unavailable Primary Care Provider Unavailabl e Encounter Details Date Type Department Care Team (Latest Contact Info) Description 04/21/2005 3:03 EST - 04/21/2005 11:59 EST Hospital Encounter [facility] Unit [address] [place], [place] [phone] Frederick Pantoja MD [address] [place] [address] Discharge Disposition: Home or Self Care Social [...] EDT Telemedicine [facility] Endocrinology - [address] [phone] Trini Hilario, DO [address] [place] [phone] documented as of this encounter Procedures Procedure Name Priority Date/Time Associated Diagnosis Comments URINALYSIS WITH MICROSCOPIC IF POSITIVE Routine 04/21/2005 3:46 EST UA REFLEX Routine 04/21/2005 3:46 EST URINE CULTURE IF POSITIVE Routine 04/21/2005 3:46 EST documented in this encounter Results * UA REFLEX (04/21/2005 3:46 EST) UA Billing Microscopic not indicated. [facility] 04/21/2005 3:46 EST 04/21/2005 3:51 EST Frederick Pantoja MD URINALYSIS ORDERABLES Fin al Result Performing Organization Address [facility] de Phone Number [facility] [address] [place] [address] * URINALYSIS (04/21/2005 3:46 EST) Color, UA Yellow [facility] Clarity, UA Clear [facility] Glucose, UA Norm NORM [facility] Bilirubin, UA Neg NEG LANDON ER [facility] Ketones, UA Neg NEG [facility] Specific [place], Urine 1.025 1.005 - 1.02 [facility] Blood, UA Neg NEG [facility] A PIAEN [facility] pH, UA 6.5 5.0 - 9.0 [facility] A ROSE[facility] Protein, UA Neg NEG [facility] Urobilinogen, UA Norm NORM mg/dL [facility] Nitrite, UA Neg NEG [facility] Leuk Esterase Neg NEG MANJINDERTCH ER [facility] 04/21/2005 3:46 EST 04/21/2005 3:51 EST Frederick Pantoja MD URINALYSIS ORDERABLES Fin al Result Performing Organization Address [facility] de Phone Number [facility] [address] [place] [address] * CULTURE IF UA POSITIVE (04/21/2005 3:46 EST) Culture if Indicated Culture not indicated by urinalysis results. DANIEL SHOEMAKER 04/21/2005 3:46 EST 04/21/2005 3:51 EST us Frederick Pantoja MD MICROBIOLOGY - GENERAL OR DERABLES Final Result [facility] [address] [place] [address] documented in this encounter Visit Diagnoses Not on filedocumented in this encounter
--- OUTSIDE RECORDS SUMMARY | 2024-05-15 13:01 | XMS_ITS | Encounter Summary ---
Author Organization [facility] Address [address] [place] [address] Care Team Providers Care Coin Machine Operator Name Role Phone Unavailable Primary Care Provider Unavailabl e Encounter Details Date Type Department Care Team ([facility] st Contact Info) Description 02/26/2005 Office Visit [facility] [place] conversion [address] [place] [address] Crys Quintero MD Social History Tobacco Use [...] is 6 months . Pt is seeing home based assistant.). This started today. Pain level now: 8/10. [...] start unsuccessful: one attempt. --1425 Abe Hoyos E.M.TJovanny IV fluid started- #1 bag NS. IV fluid started (500 mL bolus). Rate - wide open. --1426 Abe HoyosE.M.TJovanny (500 mL bolus complete. Rate changed to 100 mL/hour per Nurse Glore.). --1531 Abe Hoyos E.M.TJovanny IV site discontinued: IV catheter intact, dressing applied. --1606 Paco Guzman R.N. correction to prior entry -disreguard above entry wrong pt --1606 Paco Guzman R.N. IV site discontinued: IV catheter intact, dressing applied. --1626 Paco Guzman R.N. DISPOSITION / DISCHARGE Patient [...] vehicle. Spouse driving. --162 Trena Campbell R.N. E.M.TJovanny Guzman R.N. Locked/Released at 02/26/2005 17:48 by Paco Guzman R.N. documented in this encounter Plan of Treatment Upcoming Encounters Date Type Department Care Team (Late st Contact Info) Description 07/23/2024 16:20 EDT Telemedicine [facility] Endocrinology - [address] [address] Trini Hilario, DO [address] [place] [phone] documented as of this encounter Visit Diagnoses Not on filedocumented in this encounter
--- OUTSIDE RECORDS SUMMARY | 2024-05-15 13:01 | XMS_ITS | Encounter Summary ---
Author Organization [facility] Address [address] [place] [address] Care Team Providers Care School Guard Name Role Phone Unavailable Primary Care Provider Unavailabl e Encounter Details Date Type Department Care Team (Late Contact Info) Description 11/03/2004 19:34 EDT Hospital Encounter [facility] - Other [address] [place] [address] Mago Ravi MD 111 [facility], [facility], Level [address] [place] [phone] Social History Tobacco Use Types Packs/Day Years [...] 07/23/2024 16:20 EDT Telemedicine [facility] Endocrinology - [address] [address] Trini Hilario, DO [address] [place] [phone] documented as of this encounter Visit Diagnoses Not on filedocumented in this encounter
--- OUTSIDE RECORDS SUMMARY | 2024-05-15 13:01 | XMS_ITS | Encounter Summary ---
Author Organization [facility] Address [address] [place] [address] Care Team Providers Care Migratory Worker Name Role Phone Unavailable Primary Care Provider Unavailabl e Encounter Details Date Type Department Care Team (Late st Contact Info) Description 05/11/2003 Results Only [facility] [place] conversion [address] [place] [address] Mago Ravi MD 111 [facility], [facility] 4 [place] [phone] Social History Tobacco Use Types [...] Contact Info) Description 07/23/2024 16:20 EDT Telemedicine [facility] Endocrinology - [address] [address] Trini Hilario, DO [address] [place] [phone] documented as of this encounter Procedures Procedure Name Priority Date/Time Associated Diagnosis Comments GROUP B STREPTOCOCCUS SUSCEPTIBILITY Routine 05/11/2003 12:15 EST documented in this encounter Results * GROUP B STREPTOCOCCUS SUSCEPTIBILITY (05/11/2003 12:15 EST) Specimen Description Vaginal and Rectal [facility] Result NO GROUP B BETA STREPTOCOCCI ISOLATED [facility] Report Status Final [id number] [facility] 05/11/2003 12:1 5 EST 05/12/2003 12:15 EST us Mago Ravi MD HISTORICAL LAB FOR SQ LOAD F inal Result [facility] [address] [place] [address] documented in this encounter Visit Diagnoses Not on filedocumented in this encounter
--- OUTSIDE RECORDS SUMMARY | 2024-05-15 13:01 | XMS_ITS | Encounter Summary ---
Author Organization [facility] Address [address] [place] [address] Care Team Providers Care Forest Fire Warden Name Role Phone Terry Hall MD Primary Care Provider [phone] Encounter Details Date Type Department Care Team (Late Contact Info) Description 07/01/2014 13:41 EDT - 07/01/2014 23:59 EDT Hospital Encounter [address] [address] Phill Agustin MD 111 [facility], [facility] 5 [place] [address] Discharge Disposition: Home or Self [...] Code Departure Means Destination Home or Self Longterm documented in this encounter Plan of Treatment Upcoming Encounters Date Type Department Care Team (Late Contact Info) Description 07/23/2024 16:20 EDT Telemedicine [facility] Endocrinology - [address] [phone] Trini Hilario, DO [address] [place] [phone] documented as of this encounter Visit Diagnoses Not on filedocumented in this encounter Care Teams Forest Fire Warden Relationship Specialty Start Date End Date Terry Hall MD [address] [place], [place] [phone] PCP - General 06/03/14 07/01/14 documented as of this encounter
--- OUTSIDE RECORDS SUMMARY | 2024-05-15 13:01 | XMS_ITS | Encounter Summary ---
Author Organization [facility] Address [address] [place] [address] Care Team Providers Care Rn Hospice Name Role Phone Unavailable Primary Care Provider Unavailabl e Encounter Details Date Type Department Care Team (Late st Contact Info) Description 06/11/2005 20:03 EST Hospital Encounter [facility] Birthing Center Unit [address] [place], [place] [phone] Donald Choi MD 111 [facility] 4 [place] [phone] Discharge Disposition: Home or Self [...] Telemedicine [facility] Endocrinology - [address] [phone] Trini Hilario, [address] [place] [address] documented as of this encounter Visit Diagnoses Not on filedocumented in this encounter
--- OUTSIDE RECORDS SUMMARY | 2024-05-15 13:01 | XMS_ITS | Encounter Summary ---
Author Organization [facility] Address [address] [place] [address] Care Team Providers Care Supervisor Dried Yeast Name Role Phone Unavailable Primary Care Provider Unavailabl e Encounter Details Date Type Department Care Team (Late Contact Info) Description 04/06/2005 7:59 EST Hospital Encounter [address] [address] Mago Ravi MD [address] [place] [address], [address] [place] [phone] Social History Tobacco Use Types Packs/Day Years [...] Description 07/23/2024 16:20 EDT Telemedicine [facility] Endocrinology - [place] [place] [address] Trini Hilario DO [address] [place] [address] documented as of this encounter [...] hr 190(H) 50 - 180 mg/dl [facility] Comment: Results may be affected due to hemolysis. Slight hemolysis Glucose Enzo, 2hr 155 50 - 155 mg/dl [facility] Comment: Results may be affected due to hemolysis. Slight hemolysis Gest Gluc Enzo, 3hr 118 50 - 140 mg/dl [facility] Comment: The diagnosis of diabetes is made if two or more of the glucose values exceed the reference range listed. Glucose Dose 100 g [facility] 04/06/2005 7:58 EST 04/06/2005 11:15 EST us Mago Ravi MD PACKAGES & DNA PROBE ORDERAB LES Final Result [facility] [address] [place] [address] documented in this encounter Visit Diagnoses Not on filedocumented in this encounter
--- OUTSIDE RECORDS SUMMARY | 2024-05-15 13:01 | XMS_ITS | Encounter Summary ---
Author Organization [facility] Address [address] [place] [address] Care Team Providers Care Lap Runner Name Role Phone Terry Hall MD Primary Care Provider [phone] Terry Hall MD Unavailable Reason for Visit * Reason Comments Diabetes Encounter Details Date Type Department Care Team (Latest Contact Info) Description 08/10/2015 13:40 EDT Office Visit [facility] Endocrinology - [facility] [address] [place] [address] Greta Galicia NP [address] [facility] [address] [place] [address] Type 2 diabetes mellitus with [...] 13:22 EDT documented in this encounter Discharge Diagnoses Diagnosis E11.65 Type [...] week with blood sugars and insulin doses [phone] Talk with one of our Triage Nurses can adjust doses over the phone. - OR FAX you can Blood sugars on Mondays [phone] - OR you can join My Health On-Line through [facility] can talk with person at check [...] diet balanced in Calories, Protein, and carbohydrates Base Ply Hand needed: declined Exercise: Please try to exercise [...] Plan and call the Diabetes Center at [phone] for questions or concerns about your blood [...] Last Filled Start Date End Date insulin aspart protamine-insulin aspart (NOVOLOG FLEXPEN 70/30) 100 unit/mL (70-30) injectable penIndications:Type 2 diabetes mellitus with hyperglycemia ([facility]) Inject 26 Units into the skin BEFORE BREAKFAST & DINNER. [address] 08/10/2015 7 documented in this encounter Progress Notes * Greta Galicia NP - 08/12/2015 6913 EDT Subjective: Patient ID: Emma Min is an 35 y.o. female. Chief Complaint Patient presents with ??? Diabetes HPI This is a 35 y.o. yr old female arrives today as a New Patient visit for treatment of Type 2 Diabetes. Diabetes diagnosed 2004. [place] moved back to [facility] last year from [facility]. Due to marital problems, now . Raising 2 daughters. Pt working at [employer] at [facility]. Pertinent Past Medical History: Insomnia feels it is due to stressors in her life. Diabetes Complications and Symptoms: Recent eye spencer't denies retinopathy last eye appointment. Nocturia x1. Notes polydipsia/uria with high blood sugars. Occ numbness in feet. General health and social issues since last visit: Stable Contributory visits to PCP and or other subspecialties: Has established a PCP in [place] Changes in other pertinent medications: No. Occupation, Social issues, living situation: Patient has a job at [employer] in the [employer] department. She has 2 pre-teenage daughters. Not [...] Rubber Swelling and Rash labs done at [facility] 07/2014 creatinine 0.71, GFR greater than [...] Pressure is: At goal. 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 Often skips novologat lunch. More reliable with [...] week with blood sugars and insulin doses [phone] Talk with one of our Triage Nurses can adjust doses over the phone. - OR FAX you can Blood sugars on Mondays [phone] - OR you can join My Health On-Line through [facility] can talk with person at check [...] diet balanced in Calories, Protein, and carbohydrates Base Ply Hand needed: declined Exercise: Please try to exercise [...] Plan and call the Diabetes Center at [phone] for questions or concerns about your blood [...] Comprehensive Metabolic Panel (CMP); Future - Thyroid Hunt; Future - insulin aspart protamine-insulin aspart (NOVOLOG [...] Contact Info) Description 07/23/2024 16:20 EDT Telemedicine [facility] Endocrinology - [address] [phone] Trini Hilario, DO [address] [place] [phone] documented as of this encounter Procedures Procedure Name Priority Date/Time Associated Diagnosis Comments POCT HEMOGLOBIN A1C Routine 08/10/2015 1 3:23 EDT Type 2 diabetes mellitus with hyperglycemia (CMS-HCC) (H[facility]) documented in this encounter Results * THYROID CASCADE (08/10/2015 14:11 EDT) TSH 1.06 0.55 - 4.78 uIU/ml 08/10/2015 17:46 EDT [facility] Comment: TSH cascade is not recommended for patients in which pituitary or hypothalamic disorders are suspected. Blood specimen (specimen) BLOOD SPECIMEN / Unknown 08/10/2015 14:11 EDT 08/10/2015 15:20 EDT Greta Galicia NP CHEMISTRY & BLOOD GAS ORDER ALAN Final Result [facility] [address] [place] [address] * (ABNORMAL) COMPREHENSIVE METABOLIC PANEL (CMP) (08/10/2015 14:11 EDT) Potassium 4.3 3.5 - 5.0 mEq/L 08/10/2015 16:24 T [facility] Comment: Slight hemolysis Hemolysis may elevate potassium result. Sodium 137 136 - 145 mEq/L 08/10/2015 16:24 [facility] Comment:Slight hemolysis Chloride 98 96 - 110 mEq/L 08/10/2015 16:24 [facility] Comment:Slight hemolysis CO2 24 24 - 32 mEq/L 08/10/2015 16:24 [facility] Comment:Slight hemolysis Total Alkaline Phosphatase 74 38 - 126 U/L 08/10/2015 16:24 [facility] Comment: Slight hemolysis Hemolysis will decrease ALKP result Suggest re-evaluation if clinically indicated Bilirubin, Total 0.8 <1.4 mg/dl 08/10/19 16 16:24 [facility] Comment: Slight hemolysis Results may be affected due to hemolysis. AST 19 15 - 46 U/L 08/10/2015 16:24 [facility] Comment: Slight hemolysis Results may be affected due to hemolysis. ALT 19 <53 U/L 08/10/2015 16:24 [facility] Comment: Slight hemolysis Results may be affected due to hemolysis. Albumin 4.1 3.4 - 4.9 g/dl 08/10/2015 16:24 [facility] Comment: Slight hemolysis Results may be affected due to hemolysis. Total Protein 6.6 6.3 - 8.2 g/dl 08/10/2015 16:24 [facility] Comment: Slight hemolysis Results may be affected due to hemolysis. Creatinine 0.51(L) 0.52 - 1.04 mg/dl 08/10/2015 16:24 [facility] Comment:Slight hemolysis GFR, Calculated 126 >60 ml/min/1.7 3m2 08/10/2015 16:24 [facility] Comment: eGFR calculated using CKD-EPI equation for non Americans. Multiply eGFR by 1.16 for Americans. BUN 11 10 - 26 mg/dl 08/10/2015 16:24 [facility] Comment: Slight hemolysis Results may be affected due to hemolysis. Calcium 9.0 8.5 - 10.5 mg/dl 08/10/2015 16:24 T [facility] Comment:Slight hemolysis Calculated Calcium 9.3 8.5 - 10.5 mg/dl 08/10/2015 16:24 [facility] Glucose, Serum 199(H) 70 - 100 mg/dl 08/10/2015 16:24 [facility] Comment: Slight hemolysis Results may be affected due to hemolysis. Fasting? Unknown 08/10/2015 14:11 [facility] Blood specimen (specimen) BLOOD SPECIMEN / Unknown 08/10/2015 14:11 EDT 08/10/2015 15:20 EDT Greta Galicia FINGERPRINTER CHEMISTRY & BLOOD GAS ORDER ALAN Final Result [facility] [address] [place] [address] * ALBUMIN, URINE (08/10/2015 14:11 EDT) Creatinine, Urn [place] 104.2 mg/dl 08/11/2015 9:20 T [facility] Ur Albumin mg/dl 0.8 mg/dl 08/11/2015 12:30 T [facility] Ur Alb ug/mg Crea 7.7 ug/mg Crea 08/11/2015 12:30 [facility] Comment: Normal: <30 ug/mg creat High albuminuria: 30-300 ug/mg creat Very high albuminuria: >300 ug/mg creat Urine specimen (specimen) URINE / Unknown 08/10/2015 14:11 EDT 08/10/2015 15:22 EDT us Greta Galicia FINGERPRINTER CHEMISTRY & BLOOD GAS ORDER ALAN Final Result Performing Organization Address City/[facility]/ZIP Co de Phone Number [facility] [address] [place] [address] * LIPID PROFILE (INCLUDES CHOLESTEROL, TRIGLYCERIDES, HDL, LDL) (08/10/2015 14:11 EDT) Cholesterol 234 mg/dl 08/10/2015 16:24 T [facility] Comment: Slight hemolysis Desirable:<200 Borderline High:200-239 High:>dd=592 Triglycerides 209 mg/dl 08/10/2015 16:24 T [facility] Comment: Slight hemolysis Normal:<150 Borderline High:150-199 High:200-499 Very High:>do=271 HDL 49 mg/dl 08/10/2015 16:24 T [facility] Comment: Slight hemolysis Low:<40 Normal:40-60 Desirable: >60 LDL, Calculated 143 mg/dl 6 16:24 [facility] Comment: Optimal:<100 Near Optimal:100-129 Borderline High:130-159 High:160-189 Very High:>vp=640 Chol/HDL Ratio 4.8 08/10/2015 16:24 [facility] Fasting? Unknown 08/10/2015 14:11 [facility] Non HDL Cholesterol 185 mg/dl 08/10/2015 16:24 [facility] Comment: Slight hemolysis Desirable:<130 Borderline:130-159 High: 160-189 Very High: >so=482 Blood specimen (specimen) BLOOD SPECIMEN / Unknown 08/10/2015 14:11 EDT 08/10/2015 15:20 EDT us Greta Galicia FINGERPRINTER CHEMISTRY & BLOOD GAS ORDER ALAN Final Result Performing Organization Address City/[facility]/ZIP Co de Phone Number [facility] [address] [place] [address] * (ABNORMAL) POCT HEMOGLOBIN A1C (08/10/2015 13:23 EDT) Hemoglobin A1c, POC 8.4(A) <=5.7 % POINT OF CARE 08/10/2015 13:2 3 EDT Greta Galicia NP POINT OF CARE TEST ORDERABL ES Final Result POINT OF CARE documented in this encounter Visit Diagnoses Diagnosis Type 2 diabetes mellitus with hyperglycemia ([facility])- Primary Type II or unspecified type diabetes [...] may reflect changes made after this encounter. pravastatin (PRAVACHOL) 10 mg tabletIndications:T ype 2 diabetes mellitus with hyperglycemia ([facility]) Take 10 mg by mouth daily. 01/11/2016 added in this encounter Care Teams Lap Runner Relationship Specialty Start Date End Date Terry Hall MD [address] [place] [address] PCP - General 07/02/14 10/16/15 Terry Hall MD [address] [place] [address] 07/02/14 documented as of this encounter
--- OUTSIDE RECORDS SUMMARY | 2024-05-15 13:01 | XMS_ITS | Encounter Summary ---
Author Organization [facility] Address [address] [place] [address] Care Team Providers Care Infection Control Coordinator Name Role Phone Unavailable Primary Care Provider Unavailabl e Encounter Details Date Type Department Care Team ([facility] st Contact Info) Description 11/12/2006 Before PRISM Converted Visit (Maple) [facility] - Maple conversion [address] [place] [address] Priscilla Heart MD [address] [place] [address] Social History Tobacco Use Types [...] She was seen by ophthalmology outside of [facility], and we do not have any records [...] She denies any history of febrile seizures, CASE FOLDER infection, or trauma. No drug use or [...] modalities. Rapid alternating movements are well performed. Ahjevy-ik-glmo and qvcu-pl-zhes test are well done. Romberg is negative. [...] Reviewed by Huong Heart MD 11/13/2006 13:42 RElena Pentsova, Eladio Manzo III, MD Dictated by: Huong Heart MD Jc Medina III, MD - Huong Heart MD - DENA Job ID: [id number] Doc ID: [id number] cc: MD Leeanna Lockett MD documented in this encounter Plan of Treatment Upcoming Encounters Date Type Department Care Team (Late st Contact Info) Description 07/23/2024 16:[address] [facility] Endocrinology - [address] [address] Trini Hilario, DO [address] [place] [phone] documented as of this encounter Visit Diagnoses Not on filedocumented in this encounter
--- OUTSIDE RECORDS SUMMARY | 2024-05-15 13:01 | XMS_ITS | Encounter Summary ---
Author Organization [facility] Address [address] [place] [address] Care Team Providers Care Protection Officer Name Role Phone Terry Hall MD Primary Care Provider [phone] Terry Hall MD Unavailable Reason for Visit * Reason Comments Diabetes * Consult (Routine) - Closed Specialty Diagnoses / Procedures Referred By Luana t Referred To Contact Endocrinology Diagnoses Type II or unspecified type diabetes mellitus without mention of complication, uncontrolled Greta Galicia NP Phone: tel: fax: [facility] Endocrinology [address] [address] Phone: tel: fax: Referral ID Status Reason Start Date Expiration Date V isits Requested Visits Authorized [id number] Closed Specialty Services Required 09/23/2014 1 1 Encounter Details Date Type Department Care Team (Late st Contact Info) Description 12/01/2014 14:00 EDT Nutrition [address] [address] Rosita Jackson Type II or [...] shopping? Answer Date of Assessment Author No 12/01/2014 13:37 EDT documented as of this encounter Mental Status * Because of a physical, mental, or emotional condition, does this person have serious difficulty concentrating, remembering, or making decisions? Answer Entry Date Author No 12/01/2014 13:37 EDT documented in this encounter Discharge Diagnoses Diagnosis 250.02 DIABETES UNCOMPL ADULT-UNCONTRLLED[ICD-9-CM] documented in this encounter Patient Instructions * Patient Instructions* Rosita Jackson - 12/01/2014 14:39 EDT Lantus 50 units am Novolog breakfast 10 units + source of protein Lunch 8 units Dinner 10 units Add a bedtime reading. documented in this encounter Progress Notes * Rosita Jackson - 12/01/2014 1447 EDT [facility] ENDOCRINOLOGY & DIABETES DIABETES NUTRITION VISIT NOTE Name:Emma Faith Date of visit: 12/01/2014 PATIENT ID: Emma Faith is a 34 y.o. female referred for medical nutrition therapy by JOANN Wick for Diabetes - Type 2. SUBJECTIVE: Emma Faith was seen for a medical nutrition therapy visit, initial, at the [facility] Endocrinology & Diabetes out-patient clinic on 12/01/2014 accompanied by: alone Recently moved back to [place]; works at [employer] in [place]; 2 children 11 yo and 9yo. Blood [...] Telemedicine [facility] Endocrinology - [facility] [address] [place] [address] Trini Hilario, DO [address] [place] [phone] documented as of this encounter Visit Diagnoses Diagnosis Type II or unspecified type diabetes mellitus without mention of complication, uncontrolled- Primary documented in this encounter Care Teams Protection Officer Relationship Specialty Start Date End Date Terry Hall MD [address] [place] [id number] PCP - General 07/02/14 10/16/15 Terry Hall MD [address] [place] [phone] 07/02/14 documented as of this encounter
--- OUTSIDE RECORDS SUMMARY | 2024-05-15 13:01 | XMS_ITS | Encounter Summary ---
Author Organization [facility] Address [address] [place] [address] Care Team Providers Care Supervisor Intelligence Analyst Name Role Phone Unavailable Primary Care Provider Unavailabl e Encounter Details Date Type Department Care Team ([facility] st Contact Info) Description 11/28/2004 Before PRISM Converted Visit (Maple) [facility] - Maple conversion [address] [place] [address] Jc Medina MD [address] [place] [phone] Social History Tobacco Use Types Packs/Day [...] * Jc Medina III, MD - 06/23/2009 3639 EST DIVISION OF NEUROLOGY CONSULTATION - REASON FOR VISIT: Emma Min is a 24-year-old woman seen in consultation at the request of Dr. Chelsie Veronica of [place], [place]. She comes because of recurrent syncopal attacks, possible seizures. HISTORY OF PRESENT ILLNESS: History is provided by the patient. There are some faxed records from [facility] affiliates, and the medical record of Angelito Cheema is also available. The medical record indicates that when she was 17 and seen in pediatrics, she was complaining of presyncopal events at [facility]. Since that time she has continued to [...] gait is unremarkable, rapid alternating movements and llmmwk-sytf-kayjmf well done. When seated for a prolonged [...] III, MD P - AN Job ID: [id number] Document ID: [id number] cc: MD Ashely West NP documented in this encounter Plan of Treatment Upcoming Encounters Date Type Department Care Team (Late st Contact Info) Description 07/23/2024 16:20 EDT Telemedicine [facility] Endocrinology - [address] [address] Trini Hilario DO [address] [place] [phone] documented as of this encounter Visit Diagnoses Not on filedocumented in this encounter
--- OUTSIDE RECORDS SUMMARY | 2024-05-15 13:01 | XMS_ITS | Encounter Summary ---
Author Organization [facility] Address [address] [place] [address] Care Team Providers Care Customs Examiner Name Role Phone Terry Hall MD Primary Care Provider [phone] Terry Hall MD Unavailable Encounter Details Date Type Department Care Team (Late st Contact Info) Description 08/01/2015 Orders Only [facility] Endocrinology - [facility] [address] [place] [address] Greta Galicia NP [address] [facility] [address] [place] [address] Social History Tobacco Use Types [...] 12/01/2014 13:37 EDT documented in this encounter Plan of Treatment Upcoming Encounters Date Type Department Care Team (Late st Contact Info) Description 07/23/2024 16:20 EDT Telemedicine [facility] Endocrinology - [address] [address] Trini Hilario, [address] [place] [phone] documented as of this encounter Visit Diagnoses Not on filedocumented in this encounter Care Teams Customs Examiner Relationship Specialty Start Date End Date Terry Hall MD [address] [place] [phone] PCP - General 07/02/14 10/16/15 Terry Hall MD [address] [place] [phone] 07/02/14 documented as of this encounter
--- OUTSIDE RECORDS SUMMARY | 2024-05-15 13:01 | XMS_ITS | Encounter Summary ---
Author Organization [facility] Address [address] [place] [address] Care Team Providers Care Lumber Stacker Driver Name Role Phone Unavailable Primary Care Provider Unavailabl e Encounter Details Date Type Department Care Team (Latest Contact Info) Description 05/29/2005 16:28 EST Hospital Encounter [facility] - Other [address] [place] [address] Ashely Valiente NP Discharge Disposition: Home or [...] Description 07/23/2024 16:20 EDT Telemedicine [facility] Endocrinology - [address] [address] Trini Hilario, DO [address] [place] [address] documented as of this encounter Procedures Procedure Name Priority Date/Time Associated Diagnosis Comments GROUP B STREPTOCOCCUS SUSCEPTIBILITY Routine 05/29/2005 10:00 EST documented in this encounter Results * GROUP B STREPTOCOCCUS SUSCEPTIBILITY (05/29/2005 10:00 EST) Specimen Description Vaginal and Rectal [facility] Result NO GROUP B BETA STREPTOCOCCI ISOLATED [facility] Report Status Final [id number] [facility] 05/29/2005 10:0 0 EST 05/29/2005 18:49 EST us Ashely Valiente NP HISTORICAL LAB FOR SQ LOAD Fin al Result [facility] [address] [place] [address] documented in this encounter Visit Diagnoses Not on filedocumented in this encounter
--- OUTSIDE RECORDS SUMMARY | 2024-05-15 13:01 | XMS_ITS | Encounter Summary ---
Author Organization [facility] Address [address] [place] [address] Care Team Providers Care Major Case Detective Name Role Phone Unavailable Primary Care Provider Unavailabl e Encounter Details Date Type Department Care Team (Latest Contact Info) Description 02/26/2005 12:45 EST Hospital Encounter [facility] Emergency Department - [facility] [address] [place], [place] [id number] Emergency, Default, MD Discharge Disposition: Home or [...] EDT Telemedicine [facility] Endocrinology - [address] [address] Trini Hilario, DO [address] [place] [address] documented as of this encounter Visit Diagnoses Not on filedocumented in this encounter
--- OUTSIDE RECORDS SUMMARY | 2024-05-15 13:01 | XMS_ITS | Encounter Summary ---
Author Organization [facility] Address [address] [place] [address] Care Team Providers Care Board Design Engineer Name Role Phone Unavailable Primary Care Provider Unavailabl e Encounter Details Date Type Department Care Team (Latest Contact Info) Description 05/30/2003 16:21 EST - 05/31/2003 11:59 EST Hospital Encounter [facility] - [place] conversion [address] [place], [place] [id number] Frederick Pantoja MD [address] [place] [address] Discharge Disposition: Home or Self Care Social [...] Info) Description 07/23/2024 16:20 EDT Telemedicine [facility] Endocrinology - [address] [phone] Trini Hilario, DO [address] [place] [phone] documented as of this encounter Procedures Procedure [...] 06/04/2003 11:3 0 EST 06/04/2003 11:54 EST us Frederick Pantoja MD URINALYSIS ORDERABLES Fin al Result [facility] [address] [place] [address] * (ABNORMAL) URINALYSIS (06/04/2003 11:30 EST) Color, UA Yellow [facility] Clarity, UA Clear [facility] Glucose, UA Norm NORM [facility] Bilirubin, UA Neg NEG [facility] Ketones, UA Trace(A) NEG [facility] Specific [place], Urine >1.030(H) 1.005 - 1.02 [facility] Blood, UA Neg NEG [facility] pH, UA 5.5 5.0 - 9.0 [facility] Protein, UA Trace(A) NEG [facility] Urobilinogen, UA 1.0(A) NORM mg/dL [facility] Nitrite, UA Neg NEG [facility] Leuk Esterase Neg NEG [facility] Refractometer SG,Urine 1.025 1.005 - 1.02 [facility] Comment:Refractometer specif ic gravity 06/04/2003 11:3 0 EST 06/04/2003 11:54 EST Frederick Pantoja MD URINALYSIS ORDERABLES Fin al Result Performing Organization Address [facility] de Phone Number [facility] [address] [place] [address] * URIC ACID (06/04/2003 11:30 EST) Uric Acid 4.3 2.2 - 7.7 mg/dl [facility] 06/04/2003 11:3 0 EST 06/04/2003 11:53 EST Frederick Pantoja MD CHEMISTRY & BLOOD GAS ORD ERABLES Final Result Performing Organization Address [facility] de Phone Number [facility] [address] [place] [address] * CREATININE (06/04/2003 11:30 EST) Creatinine 0.8 0.7 - 1.5 mg/dl [facility] 06/04/2003 11:3 0 EST 06/04/2003 11:53 EST Frederick Pantoja MD HISTORICAL LAB FOR SQ TEAGAN D Final Result Performing Organization Address [facility] Co de Phone Number [facility] [address] [place] [address] * (ABNORMAL) HEMAGRAM (06/04/2003 11:30 EST) WBC 7.20 4.0 - 12.4 K/cmm [facility] RBC 3.64(L) 3.86 - 5.04 M/cmm [facility] Hemoglobin 12.6 11.6 - 15.2 gm/dl [facility] HCT 35.5 34.9 - 44.4 % [facility] MCV 97 81 - 98 fl [facility] MCH 34.5(H) 26.7 - 33.3 pg [facility] MCHC 35.4 32.1 - 35.9 gm/dl [facility] PLT 162 141 - 320 K/cmm [facility] RDW-CV 12.7 11.7 - 14.6 % [facility] 06/04/2003 11:3 0 EST 06/04/2003 11:53 EST Frederick Pantoja MD HEMATOLOGY & PF4 ORDERABL ES Final Result Performing Organization Address [facility] de Phone Number [facility] [address] [place] [address] * (ABNORMAL) BUN (06/04/2003 11:30 EST) BUN 8(L) 10 - 26 mg/dl [facility] 06/04/2003 11:3 0 EST 06/04/2003 11:53 EST Frederick Pantoja MD CHEMISTRY & BLOOD GAS ORD ERABLES Final Result Performing Organization Address [facility] de Phone Number [facility] [address] [place] [address] * AST (06/04/2003 11:30 EST) AST 23 15 - 46 U/L [facility] 06/04/2003 11:3 0 EST 06/04/2003 11:53 EST Frederick Pantoja MD CHEMISTRY & BLOOD GAS ORD ERABLES Final Result Performing Organization Address City/[facility] Co de Phone Number [facility] [address] [place] [address] * ALT (06/04/2003 11:30 EST) Pathologist [facility] ALT 14 9 - 52 U/L [facility] 06/04/2003 11:3 0 EST 06/04/2003 11:53 EST Frederick Pantoja MD CHEMISTRY & BLOOD GAS ORD ERABLES Final Result Performing Organization Address [facility] Co de Phone Number [facility] [address] [place] [address] * UA REFLEX (05/30/2003 16:38 EST) [facility] UA Billing Microscopic not indicated. [facility] 05/30/2003 16:3 8 EST 05/30/2003 16:38 EST Frederick Pantoja MD URINALYSIS ORDERABLES Fin al Result Performing Organization Address [facility] de Phone Number [facility] [address] [place] [address] * (ABNORMAL) URINALYSIS (05/30/2003 16:38 EST) [facility] Color, UA Yellow [facility] Clarity, UA Clear [facility] Glucose, UA Norm NORM [facility] Bilirubin, UA Small(A) NEG [facility] Ketones, UA Trace(A) NEG [facility] Specific [place], Urine >1.030(H) 1.005 - 1.02 [facility] Blood, UA Neg NEG [facility] pH, UA 6.5 5.0 - 9.0 [facility] Protein, UA 1+(A) NEG [facility] Urobilinogen, UA 1.0(A) NORM mg/dL [facility] Nitrite, UA Neg NEG [facility] Leuk Esterase Neg NEG [facility] Refractometer SG,Urine 1.026(H) 1.005 - 1.02 [facility] 05/30/2003 16:3 8 EST 05/30/2003 16:38 EST us Frederick Pantoja MD URINALYSIS ORDERABLES Fin al Result Performing Organization Address City/State/[facility] Co de Phone Number [facility] [address] [place] [address] documented in this encounter Visit Diagnoses Not on filedocumented in this encounter
--- OUTSIDE RECORDS SUMMARY | 2024-05-15 13:01 | XMS_ITS | Encounter Summary ---
Author Organization [facility] Address [address] [place] [address] Care Team Providers Care Wood Casket Assembler Name Role Phone Unavailable Primary Care Provider Unavailabl e Encounter Details Date Type Department Care Team (Latest Contact Info) Description 09/22/2004 11:05 EDT - 09/22/2004 11:59 EDT Hospital Encounter [facility] Emergency Department - [facility] [address] [place], [place] [address] Emergency, Default, MD Discharge Disposition: Home or [...] Telemedicine [facility] Endocrinology - [address] [address] Trini Hilario, DO [address] [place] [address] documented as of this encounter Visit Diagnoses Not on filedocumented in this encounter
--- OUTSIDE RECORDS SUMMARY | 2024-05-15 13:01 | XMS_ITS | Encounter Summary ---
Author Organization [facility] Address [address] [place] [address] Care Team Providers Care Jack Spooler Tender Name Role Phone Unavailable Primary Care Provider Unavailabl e Encounter Details Date Type Department Care Team (Late st Contact Info) Description 05/11/2003 14:10 EST Hospital Encounter [facility] - Other [address] [place] [address] Mago Ravi MD [address] [facility], [address] [place] [address] Social History Tobacco Use Types [...] Contact Info) Description 07/23/2024 16:20 EDT Telemedicine [facility] Endocrinology - [address] [place] [address] Trini Hilario, [address] [place] [address] documented as of this encounter Procedures Procedure Name Priority Date/Time Associated Diagnosis Comments RAD ULTRASOUND Routine 05/25/2003 10:45 EST documented in this encounter Results * RAD ULTRASOUND (05/25/2003 10:45 EST) Anatomical Region Laterality Modality Other 05/25/2003 10:4 5 EST Narrative 12/20/2008 4:39 EDT [id number],DOPPLER,POSSIBLE IUGR Please refer to the separate [facility] report. Procedure Note Carole Newsome MD - 12/20/2008 [id number],DOPPLER,POSSIBLE IUGR Please refer to the separate [facility] report. us Mago Ravi MD IMG US ORDERABLES Final Resu lt documented in this encounter Visit Diagnoses Not on filedocumented in this encounter
--- OUTSIDE RECORDS SUMMARY | 2024-05-15 13:01 | XMS_ITS | Encounter Summary ---
Author Organization [facility] Address [address] [place] [address] Care Team Providers Care Electric Pile Driver Operator Name Role Phone Unavailable Primary Care Provider Unavailabl e Encounter Details Date Type Department Care Team ([facility] st Contact Info) Description 07/25/2005 Office Visit [facility] - [place] conversion [address] [place] [address] Mack Ronquillo MD Social History Tobacco Use [...] Neuro: Oriented X 3. PROGRESS AND PROCEDURES E.D. Course: 03:41. Evaluation after reassessment, observation, IV [...] noted. Arrived by private vehicle. Historian: patient. --7 Mikayla Brewer R.N. PHYSICAL ASSESSMENT Ambulatory to room. Alert. Oriented X 3. The patient is in moderate distress. Respirations not labored. Mucous membranes are pink. Skin is warm and dry. --7 Mikayla Brewer R.N. NURSING PROGRESS NOTES Progress [...] mL. Rate - wide open. --205 Joby Brooks E.M.T. DISPOSITION / DISCHARGE BP: 104/51. HR: 102. RR: 16. O2 saturation: 96% room air. Patient reports pain level on departure as 0/10. Condition at departure: improved and stable. Discontinued: IV site (IV catheter intact). No learning barriers present. Discharge instructions reviewed with the patient. Reviewed medication side effects (compazine starter pack Rx#8860 dispensed to pt at discharge #4 tabs). --406 Aissatou Dejesus R.N. Patient verbalized understanding. Written instructions provided in Hebrew. The patient was discharged home and accompanied by dye range operator cloth. The patient left the Emergency Department ambulatory and via private vehicle. Hull Sorter driving. ( offering no complaints on discharge). --0407 Aissatou Dejesus R.N. Fidel Rodriguez R.N., R.N., R.N. Locked/Released at 07/25/2005 4:29 by Aissatou Dejesus R.N. documented in this encounter Plan of Treatment Upcoming Encounters Date Type Department Care Team (Late st Contact Info) Description 07/23/2024 16:20 EDT Telemedicine [facility] Endocrinology - [facility] [address] [place] [address] Trini Hilario, DO [address] [place] [phone] documented as of this encounter Visit Diagnoses Not on filedocumented in this encounter
--- OUTSIDE RECORDS SUMMARY | 2024-05-15 13:01 | XMS_ITS | Encounter Summary ---
Author Organization [facility] Address [address] [place] [address] Care Team Providers Care Quality Systems Engineer Name Role Phone Unavailable Primary Care Provider Unavailabl e Encounter Details Date Type Department Care Team (Late Contact Info) Description 12/29/2004 9:02 EDT Hospital Encounter [facility] - Other [address] [place] [id number] Ashely Valiente NP Social History Tobacco Use [...] Contact Info) Description 07/23/2024 16:20 EDT Telemedicine [facility] Endocrinology - [address] [phone] Trini Hilario, DO [address] [place] [phone] documented as of this encounter Procedures Procedure Name Priority Date/Time Associated Diagnosis Comments LONGTERM ROUTINE 01/22/2005 16:39 EDT URINALYSIS WITH MICROSCOPIC IF POSITIVE Routine 12/29/2004 11:56 EDT UA REFLEX Routine 12/29/2004 11:56 EDT BACTERIAL CULTURE, URINE Routine 12/29/2004 11:56 EDT documented in this encounter Results * LONGTERM ROUTINE (01/22/2005 16:39 EDT) Anatomical Region Laterality Modality Other 01/22/2005 16:3 9 EDT Narrative 11/19/2008 1:32 EDT [id number],DEPRESSION Please refer to the separate [facility] report. Procedure Note Yehuda Lantigua MD - 11/19/2008 [id number],DEPRESSION Please refer to the separate [facility] report. us Laura Herrera MD IMG LONGTERM ORDERABLES Final Resu lt * BACTERIAL CULTURE, URINE (12/29/2004 11:56 EDT) Specimen Description Urine [facility] Result Less than 10,000 CFU/ml Mixed gram positive growth [facility] Report Status Final [id number] [facility] 12/29/2004 11:5 6 EDT 12/29/2004 11:56 EDT us Ashely Valiente NP MICROBIOLOGY - GENERAL ORDERAB LES Final Result [facility] [address] [place] [address] * UA REFLEX (12/29/2004 11:56 EDT) UA Billing Microscopic not indicated. [facility] 12/29/2004 11:5 6 EDT 12/29/2004 11:56 EDT us Ashely Valiente AIRCRAFT MECHANIC STRUCTURES URINALYSIS ORDERABLES Final Re sult Performing Organization Address [facility] Co de Phone Number [facility] [address] [place] [address] * (ABNORMAL) URINALYSIS (12/29/2004 11:56 EDT) Color, UA Yellow [facility] Clarity, UA Clear [facility] Glucose, UA Norm NORM [facility] Bilirubin, UA Neg NEG [facility] Ketones, UA Neg NEG [facility] Specific [place], Urine 1.015 1.005 - 1.02 [facility] Blood, UA Neg NEG [facility] pH, UA 7.0 5.0 - 9.0 [facility] Protein, UA Neg NEG [facility] Urobilinogen, UA 1.0(A) NORM mg/dL [facility] Nitrite, UA Neg NEG [facility] Leuk Esterase Neg NEG [facility] 12/29/2004 11:5 6 EDT 12/29/2004 11:56 EDT us Ashely Valiente AIRCRAFT MECHANIC STRUCTURES URINALYSIS ORDERABLES Final Re sult Performing Organization Address [facility] Co de Phone Number [facility] [address] [place] [address] documented in this encounter Visit Diagnoses Not on filedocumented in this encounter
--- OUTSIDE RECORDS SUMMARY | 2024-05-15 13:01 | XMS_ITS | Encounter Summary ---
Author Organization [facility] Address [address] [place] [address] Care Team Providers Care Measurement Coordinator Name Role Phone Terry Hall MD Primary Care Provider [phone] Terry Hall MD Unavailable Reason for Visit * Reason Onset Date Comments Appointment Related 08/01/2015 Encounter Details Date Type Department Care Team (Late st Contact Info) Description 08/01/2015 Telephone [facility] Endocrinology - [facility] [address] [place] [address] Greta Galicia NP [address] [facility] [address] [place] [address] Appointment Related Social History Tobacco [...] 12/01/2014 13:37 EDT documented in this encounter Miscellaneous Notes [...] Info) Description 07/23/2024 16:20 EDT Telemedicine [facility] Endocrinology - [address] [address] Trini Hilario, DO [address] [place] [phone] documented as of this encounter Visit Diagnoses Not on filedocumented in this encounter Care Teams Measurement Coordinator Relationship Specialty Start Date End Date Terry Hall MD [address] [place] [phone] PCP - General 07/02/14 10/16/15 Terry Hall MD [address] [place] [phone] 07/02/14 documented as of this encounter
--- OUTSIDE RECORDS SUMMARY | 2024-05-15 13:01 | XMS_ITS | Encounter Summary ---
Author Organization [facility] Address [address] [place] [address] Care Team Providers Care Measurement Operator Name Role Phone Terry Hall MD Primary Care Provider [phone] Terry Hall MD Unavailable Encounter Details Date Type Department Care Team (Late st Contact Info) Description 08/01/2015 Orders Only [facility] Endocrinology - [facility] [address] [place] [address] Greta Galicia NP [address] [facility] [address] [place] [address] Social History Tobacco Use Types [...] [facility] Endocrinology - [address] [address] Trini Hilario, [address] [place] [phone] documented as of this encounter Visit Diagnoses Not on filedocumented in this encounter Care Teams Measurement Operator Relationship Specialty Start Date End Date Terry Hall MD [address] [place] [phone] PCP - General 07/02/14 10/16/15 Terry Hall MD [address] [place] [phone] 07/02/14 documented as of this encounter
--- OUTSIDE RECORDS SUMMARY | 2024-05-15 13:01 | XMS_ITS | Encounter Summary ---
Author Organization [facility] Address [address] [place] [address] Care Team Providers Care Seo Team Lead Name Role Phone Fu, Terry SHEPARD Primary Care Provider Fu, Terry SHEPARD Primary Care Provider [phone] Fu, Terry SHEPARD Unavailable Encounter Details Date Type Department Care Team (Late st Contact Info) Description 07/01/2014 Phlebotomy Only [facility] - [address] [phone] Lift Supervisor, Outpatient Antibody response examination; Screening examination for [...] Contact Info) Description 07/23/2024 16:20 EDT Telemedicine [facility] Endocrinology - [address] [phone] Trini Hilario, DO [address] [place] [phone] documented as of this encounter Procedures Procedure [...] EDT) TB Interpretation Negative 015 16:38 EDT [facility] Comment:Reference Range: Neg ative TB Antigen Value 0.00 IU/mL 07/07/19 15 16:38 EDT [facility] Comment: This is a [...] & BLOOD GAS O RDERABLES Final Result [facility] [address] [place] [address] * VARICELLA IGG ANTIBODY (07/01/2014 13:47 EDT) Varicella IgG Ab Interpretati on: Positive 07/02/2014 12:49 EDT [facility] Comment: Presence of detectable Varicella Zoster virus IgG antibodies. Blood specimen (specimen) BLOOD SPECIMEN / Unknown 07/01/2014 13:47 EDT 07/01/2014 15:40 EDT Phill Agustin MD IMMUNOLOGY AND SEROLOGY ORDERABLES Final Result Performing Organization Address [facility] Co de Phone Number [facility] [address] [place] [address] * HEPATITIS B SURFACE ANTIBODY (07/01/2014 13:47 EDT) Hepatitis B Surface Ab Negative 07/02/2014 11:45 EDT [facility] Comment: Reference Range: Unvaccinated: ??Negative Vaccinated: ??Positive HBs Antibody, Quant <5.0 mIU/mL 07/02/2014 11:45 EDT [facility] Comment: Patient is presumed to not be immune to infection with HBV. Reference Range: Positive: >=12.0 mIU/mL Indeterminate: >=5.0 to <12.0 mIU/mL Negative: <5.0 mIU/mL Blood specimen (specimen) BLOOD SPECIMEN / Unknown 07/01/2014 13:47 EDT 07/01/2014 15:40 EDT Phill Agustin MD CHEMISTRY & BLOOD GAS O RDERABLES Final Result Performing Organization Address [facility] Co de Phone Number [facility] [address] [place] [phone] documented in this encounter Visit Diagnoses Diagnosis Antibody response examination Screening examination for pulmonary tuberculosis documented in this encounter Care Teams Seo Team Lead Relationship Specialty Start Date End Date Terry Hall MD [address] [place] [phone] PCP - General 06/03/14 07/01/14 Terry Hall MD [address] [place] [phone] PCP - General 07/02/14 10/16/15 Terry Hall MD [address] [place] [phone] 07/02/14 documented as of this encounter
--- OUTSIDE RECORDS SUMMARY | 2024-05-15 13:02 | XMS_ITS | Encounter Summary ---
Author Organization [facility] Address [address] [place] [address] Care Team Providers Care Supervisor Covering And Lining Name Role Phone Unavailable Primary Care Provider Unavailabl e Encounter Details Date Type Department Care Team (Late st Contact Info) Description 12/29/2002 10:33 EDT - 12/29/2002 11:59 EDT Hospital Encounter [facility] [address] [place] [address] Mago Ravi MD 111 [facility] 4 [place] [address] Discharge Disposition: Auto Discharge Social [...] Info) Description 07/23/2024 16:20 EDT Telemedicine [facility] Endocrinology - [address] [phone] Trini Hilario, [address] [place] [phone] documented as of this encounter Procedures Procedure [...] 11:3 0 EDT Narrative 12/20/2008 0:46 EDT [id number],SIZE/DATES Please refer to the separate [facility] report. Procedure Note Marisela Parham MD - 12/20/2008 [id number],SIZE/DATES Please refer to the separate [facility] report. us Mago Ravi MD [facility] US ORDERABLES Final Result * (ABNORMAL) UA WITH MICROSCOPIC (12/29/2002 10:33 EDT) Color, UA Yellow [facility] Clarity, UA Clear [facility] Glucose, UA Norm NORM [facility] Bilirubin, UA Neg NEG FLEALLAN ER [facility] Ketones, UA Neg NEG [facility] Specific [place], Urine 1.010 1.005 - 1.02 [facility] Blood, UA Neg NEG [facility] pH, UA 8.0 5.0 - 9.0 [facility] Protein, UA Neg NEG [facility] Urobilinogen, UA Norm NORM mg/dL [facility] Nitrite, UA Neg NEG [facility] Leuk Esterase Trace(A) NEG FLETCH [facility] WBC, UA 1 to 5 0 - 5 /HPF [facility] RBC, UA None seen 0 - 5 /HPF [facility] Squam Epithel, UA Frequent(A) NS /HPF [facility] Renal Epithel, UA None seen NS /HPF [facility] Bacteria, UA Rare(A) NS /HPF [facility] R [facility] Crystals, UA None seen /HPF [facility] Hyaline Casts, UA None seen /LPF [facility] UA Comment Microscopic results are unreliable on urines unrefrig >2hrs or refrig >8hrs. [facility] 12/29/2002 10:3 3 EDT 12/29/2002 10:34 EDT us Mago Ravi MD URINALYSIS ORDERABLES Final Result [facility] [address] [place] [address] * UA WITH MICROSCOPIC (12/29/2002 10:33 EDT) Color, UA [facility] Clarity, UA [facility] Glucose, UA NORM [facility] Bilirubin, UA NEG [facility] Ketones, UA NEG [facility] Specific [place], Urine 1.005 - 1.02 [facility] Blood, UA NEG [facility] pH, UA 5.0 - 9.0 [facility] A RO[facility] Protein, UA NEG [facility] Urobilinogen, UA NORM mg/dL [facility] Nitrite, UA NEG [facility] Leuk Esterase NEG [facility] WBC, UA 0 - 5 /HPF [facility] RBC, UA 0 - 5 /HPF [facility] Squam Epithel, UA NS /HPF [facility] Renal Epithel, UA NS /HPF [facility] Bacteria, UA NS /HPF PINA R [facility] Crystals, UA /HPF FLEALLANE [facility] Hyaline Casts, UA /LPF [facility] UA Comment [facility] 12/29/2002 10:3 3 EDT 12/29/2002 10:34 EDT Mago Ravi MD URINALYSIS ORDERABLES Final Result Performing Organization Address City/[facility]/ZIP Co de Phone Number [facility] [address] [place] [address] * BACTERIAL CULTURE, URINE (12/29/2002 10:33 EDT) Specimen Description Urine [facility] Result Less than 10,000 CFU/ml Mixed gram positive growth [facility] Report Status Final [id number] [facility] 12/29/2002 10:3 3 EDT 12/29/2002 10:34 EDT Mago Ravi MD MICROBIOLOGY - GENERAL ORDER ALAN Final Result Performing Organization Address [facility]/[place]UST de Phone Number [facility] [address] [place] [address] * (ABNORMAL) PROFILE (12/29/2002 10:33 EDT) ABO and Rh Type A POS [facility]ICK [facility] Antibody Screen Neg [facility] ROMERO [facility] WBC 7.81 4.0 - 12.4 K/cmm [facility] RBC 3.84(L) 3.86 - 5.04 M/cmm [facility] Hemoglobin 13.2 11.6 - 15.2 gm/dl [facility] HCT 38.1 34.9 - 44.4 % [facility] MCV 99(H) 81 - 98 fl [facility] MCH 34.3(H) 26.7 - 33.3 pg [facility] MCHC 34.6 32.1 - 35.9 gm/dl [facility] PLT 204 141 - 320 K/cmm [facility] RDW-CV 13.2 11.7 - 14.6 % [facility] % Neutrophils 76.0 45.5 - 79.7 % [facility] % Lymphocytes 19.4 15.0 - 46.8 % [facility] % Monocytes 3.6 1.8 - 12.0 % [facility] % Eosinophils 0.8 0.6 - 6.9 % [facility] % Basophils 0.2 0.2 - 1.4 % [facility] ABS Neutrophils 5.93 2.20 - 8.85 K/cmm [facility] ABS Lymphs 1.52 1.09 - 3.30 K/cmm [facility] ABS Monocytes 0.28 0.1 - 0.8 K/cmm [facility] ABS Eosinophils 0.07 0.03 - 0.61 K/cmm [facility] ABS Basophils 0.02 0.01 - 0.11 K/cmm [facility] Type of Diff: Automated [facility] Hepatitis B Surface Ag Neg PROnoise ECI methodology in use 12/28/02. [facility] Syphilis Sero (RPR) NONREACT. NR Dils [facility] Rubella IgG Scr Antibody detected [facility] 12/29/2002 10:3 3 EDT 12/29/2002 10:34 EDT us Mago Ravi MD PACKAGES & DNA PROBE ORDERAB LES Final Result [facility] [address] [place] [address] documented in this encounter Visit Diagnoses Not on filedocumented in this encounter
--- OUTSIDE RECORDS SUMMARY | 2024-05-15 13:02 | XMS_ITS | Encounter Summary ---
Author Organization [facility] Address [address] [place] [address] Care Team Providers Care Agricultural Research Technician Name Role Phone Unavailable Primary Care Provider Unavailabl e Encounter Details Date Type Department Care Team (Late Contact Info) Description 12/11/2002 22:24 EDT Hospital Encounter [facility] - Other [address] [place] [address] Mago Ravi MD 111 [facility], [facility], Level [address] [place] [phone] Social History Tobacco Use Types Packs/Day Years [...] [facility] Endocrinology - [address] [address] Trini Hilario, DO [address] [place] [phone] documented as of this encounter Visit Diagnoses Not on filedocumented in this encounter
--- OUTSIDE RECORDS SUMMARY | 2024-05-15 13:02 | XMS_ITS | Encounter Summary ---
Author Organization [facility] Address [address] [place] [address] Care Team Providers Care Workers Compensation Examiner Name Role Phone Unavailable Primary Care Provider Unavailabl e Encounter Details Date Type Department Care Team (Latest Contact Info) Description 07/11/2002 11:55 EST - 07/11/2002 11:59 EST Hospital Encounter [facility] Emergency Department - [facility] [address] [place] [address] Emergency, Default, MD Discharge Disposition: Home or [...] Description 07/23/2024 16:20 EDT Telemedicine [facility] Endocrinology - [address] [address] Trini Hilario, DO [address] [place] [phone] documented as of this encounter Procedures Procedure [...] These findings were forwarded to NARENDRA Major. ulysses us Nick Langley PA-C IMG DIAGNOSTIC IMAGING ORDER ALAN Final Result documented in this encounter Visit Diagnoses Not on filedocumented in this encounter
--- OUTSIDE RECORDS SUMMARY | 2024-05-15 13:02 | XMS_ITS | Encounter Summary ---
Author Organization [facility] Address [address] [place] [address] Care Team Providers Care Director Of Brand Marketing Name Role Phone Unavailable Primary Care Provider Unavailabl e Encounter Details Date Type Department Care Team (Late Contact Info) Description 04/01/2003 8:13 EST Hospital Encounter [address] [address] Mago Ravi MD 111 [facility], [facility] 4 [place] [phone] Social History Tobacco Use Types Packs/Day Years [...] Contact Info) Description 07/23/2024 16:20 EDT Telemedicine [facility] Endocrinology - [address] [place] [address] Trini Hilario DO [address] [place] [address] documented as of this encounter Procedures Procedure Name Priority Date/Time Associated Diagnosis Comments RAD ULTRASOUND Routine 04/27/2003 10:00 EST GLUCOSE TOLERANCE, 3HR GESTATIONAL Routine 04/01/2003 11:33 EST documented in this encounter Results * RAD ULTRASOUND (04/27/2003 10:00 EST) Anatomical Region Laterality Modality Other 04/27/2003 10:0 0 EST Narrative 12/20/2008 5:39 EDT [id number],GROWTH AND DOPPLER Please refer to the separate [facility] report. Procedure Note Cornelius Caruso MD - 12/20/2008 [id number],GROWTH AND DOPPLER Please refer to the separate [facility] report. us Mago Ravi MD IMG US ORDERABLES Final Resu lt * GLUCOSE TOLERANCE, 3HR GESTATIONAL (04/01/2003 11:33 [...] Glucose Dose 100 g [facility] 04/01/2003 11:3 3 EST 04/01/2003 11:42 EST us Mago Ravi MD PACKAGES & DNA PROBE ORDERAB LES Final Result [facility] [address] [place] [address] documented in this encounter Visit Diagnoses Not on filedocumented in this encounter
--- OUTSIDE RECORDS SUMMARY | 2024-05-15 13:02 | XMS_ITS | Encounter Summary ---
Author Organization [facility] Address [address] [place] [address] Care Team Providers Care Loom Overhauler Name Role Phone Unavailable Primary Care Provider Unavailabl e Encounter Details Date Type Department Care Team (Late st Contact Info) Description 12/11/2002 Results Only [facility] - [facility] [address] [place] [address] Mago Ravi MD 111 [facility], [facility] 4 [place] [address] Social History Tobacco Use Types [...] Contact Info) Description 07/23/2024 16:20 EDT Telemedicine [facility] Endocrinology - [address] [address] Trini Hilario, DO [address] [place] [phone] documented as of this encounter Procedures Procedure Name Priority Date/Time Associated Diagnosis Comments N. GONORRHOEAE AMPLIFIED PROBE Routine 12/11/2002 14:32 EDT ZZCHLAMYDIA TRACHOMATIS AMPLIFIED PROBE Routine 12/11/2002 14:32 EDT documented in this encounter Results * N. GONORRHOEAE AMPLIFIED PROBE (12/11/2002 14:32 EDT) Result No Neisseria gonorrhoeae DNA detected by program checker mediated amplification. [facility] Report Status Final [id number] [facility] Specimen Description Cervix [facility] 12/11/2002 14:3 2 EDT 12/14/2002 14:32 EDT Mago Ravi MD MICROBIOLOGY - GENERAL ORDER LAAN Final Result Performing Organization Address [facility] de Phone Number [facility] [address] [place] [address] * CHLAMYDIA TRACHOMATIS AMPLIFIED PROBE (12/11/2002 14:32 EDT) Specimen Description Cervix [facility] Result No Chlamydia trachomatis DNA detected by program checker mediated amplification. [facility] Report Status Final [id number] [facility] 12/11/2002 14:3 2 EDT 12/14/2002 14:32 EDT Mago Ravi MD MICROBIOLOGY - GENERAL ORDER ALAN Final Result Performing Organization Address [facility] Co de Phone Number [facility] [address] [place] [address] documented in this encounter Visit Diagnoses Not on filedocumented in this encounter
--- OUTSIDE RECORDS SUMMARY | 2024-05-15 13:02 | XMS_ITS | Encounter Summary ---
Author Organization [facility] Address [address] [place] [address] Care Team Providers Care Etcher Enameling Name Role Phone Unavailable Primary Care Provider Unavailabl e Encounter Details Date Type Department Care Team (Late Contact Info) Description 11/05/2002 21:00 EDT Hospital Encounter [address] [address] Anabel Espinosa MD 0 [place] [phone] Social History Tobacco Use Types Packs/Day Years [...] 07/23/2024 16:20 EDT Telemedicine [facility] Endocrinology - [address] [place] [address] Trini Hilario, DO [address] [place] [address] documented as of this encounter Visit Diagnoses Not on filedocumented in this encounter
--- OUTSIDE RECORDS SUMMARY | 2024-05-15 13:02 | XMS_ITS | Encounter Summary ---
Author Organization [facility] Address [address] [place] [address] Care Team Providers Care Biology Department Chair Name Role Phone Unavailable Primary Care Provider Unavailabl e Encounter Details Date Type Department Care Team (Latest Contact Info) Description 03/19/2001 13:10 EST Hospital Encounter [facility] - Other [address] [place] [address] Bijan Recinos MD Unknown, Provider, Discharge Disposition: [...] Info) Description 07/23/2024 16:20 EDT Telemedicine [facility] Endocrinology - [address] [address] Trini Hilario, DO [address] [place] [address] documented as of this encounter Procedures Procedure Name Priority Date/Time Associated Diagnosis Comments BACTERIAL CULTURE, URINE Routine 03/19/2001 15:00 EST documented in this encounter Results * BACTERIAL CULTURE, URINE (03/19/2001 15:00 EST) Specimen Description Urine [facility] Result Greater than 100,000 CFU/ml ESCHERICHIA COLI [facility] Report Status Final [id number] [facility] 03/19/2001 15:0 0 EST 03/19/2001 19:34 [...] SUSCEPTIBILITY (MARY) <=0.5 Susceptible Bijan Recinos MD MICROBIOLOGY - GENE [facility] ORDERABLES Final Result [facility] [address] [place] [address] documented in this encounter Visit Diagnoses Not on filedocumented in this encounter
--- OUTSIDE RECORDS SUMMARY | 2024-05-15 13:02 | XMS_ITS | Encounter Summary ---
Author Organization [facility] Address [address] [place] [address] Care Team Providers Care Office Machine Servicer Apprentice Name Role Phone Unavailable Primary Care Provider Unavailabl e Encounter Details Date Type Department Care Team (Late Contact Info) Description 11/20/1999 7:32 EDT Hospital Encounter [facility] [address] [place] [address] Matilde Wiley MD Unknown, Provider, Social History [...] Contact Info) Description 07/23/2024 16:20 EDT Telemedicine [facility] Endocrinology - [address] [address] Trini Hilario, DO [address] [place] [phone] documented as of this encounter Procedures Procedure Name Priority Date/Time Associated Diagnosis Comments N.GONORRHOEAE PROBE Routine 11/27/1999 1 6:30 EDT CHLAMYDIA TRACHOMATIS PROBE Routine 11/27/1999 16:30 EDT GROUP A STREP CULTURE Routine 11/20/1999 16:15 EDT documented in this encounter Results * CHLAMYDIA TRACHOMATIS PROBE (11/27/1999 16:30 EDT) Specimen Description Cervix [facility] Result No Chlamydia trachomatis DNA detected by hand stamper mediated amplification. [facility] Report Status Final [facility] 11/27/1999 16:3 0 EDT 11/28/1999 9:34 EDT Matilde Wiley MD HISTORICAL LAB FOR SQ LOAD Final Result Performing Organization Address City/[facility]/ZIP Co de Phone Number [facility] [address] [place] [address] * N.GONORRHOEAE PROBE (11/27/1999 16:30 EDT) Specimen Description Cervix [facility] Result No Neisseria gonorrhoeae DNA detected by hand stamper mediated amplification. [facility] Report Status Final [id number] [facility] 11/27/1999 16:3 0 EDT 11/28/1999 9:34 EDT Matilde Wiley MD HISTORICAL LAB FOR SQ LOAD Final Result Performing Organization Address City/[facility] Co de Phone Number [facility] [address] [place] [address] * CULTURE FOR GROUP A BETA STREPTOCOCCUS (11/20/1999 16:15 EDT) Specimen Description Throat [facility] Result NO GROUP A BETA STREPTOCOCCI ISOLATED [facility] Report Status Final [facility] 11/20/1999 16:1 5 EDT 11/20/1999 17:09 EDT us Matilde Wiley MD MICROBIOLOGY - GENERAL ORD ERABLES Final Result Performing Organization Address City/State/[facility] Co de Phone Number [facility] [address] [place] [address] documented in this encounter Visit Diagnoses Not on filedocumented in this encounter
--- OUTSIDE RECORDS SUMMARY | 2024-05-15 13:02 | XMS_ITS | Encounter Summary ---
Author Organization [facility] Address [address] [place] [address] Care Team Providers Care News Reel Cameraman Name Role Phone Unavailable Primary Care Provider Unavailabl e Encounter Details Date Type Department Care Team (Late st Contact Info) Description 11/27/1999 Results Only [facility] Pediatric Primary Care - [address] [address] Matilde Wiley MD Social History Tobacco Use [...] Contact Info) Description 07/23/2024 16:20 EDT Telemedicine [facility] Endocrinology - [address] [address] Trini Hilario, DO [address] [place] [phone] documented as of this encounter Procedures Procedure [...] ? EMMA MIN ? Accession #: ? [id number] : ? 1980 (Age: 19) ??F ?Collect [...] End of Report DANIEL SHOEMAKER 11/27/1999 11/28/1999 us Matilde Wiley MD PATHOLOGY ORDERABLES Final Result [facility] [address] [place] [address] documented in this encounter Visit Diagnoses Not on filedocumented in this encounter
--- OUTSIDE RECORDS SUMMARY | 2024-05-15 13:02 | XMS_ITS | Encounter Summary ---
Author Organization [facility] Address [address] [place] [address] Care Team Providers Care Commercial Loan Officer Name Role Phone Unavailable Primary Care Provider Unavailabl e Encounter Details Date Type Department Care Team (Latest Contact Info) Description 03/31/2001 12:10 EST Hospital Encounter [facility] - Other [address] [place] [address] Matilde Wiley MD Unknown, Provider, Discharge Disposition: [...] Contact Info) Description 07/23/2024 16:20 EDT Telemedicine [facility] Endocrinology - [address] [address] Trini Hilario, DO [address] [place] [address] documented as of this encounter Procedures Procedure Name Priority Date/Time Associated Diagnosis Comments BACTERIAL CULTURE, URINE Routine 03/31/2001 16:15 EST documented in this encounter Results * BACTERIAL CULTURE, URINE (03/31/2001 16:15 EST) Specimen Description Urine [facility] Result 10,000 to 100,000 CFU/ml GARDNERELLA VAGINALIS, presumptive identification. Presumptive Identification Less than 10,000 CFU/ml Mixed gram positive growth [facility] Report Status Final [id number] [facility] 03/31/2001 16:1 5 EST 03/31/2001 18:40 EST us Matilde Wiley MD MICROBIOLOGY - GENERAL ORD ERABLES Final Result [facility] [address] [place] [address] documented in this encounter Visit Diagnoses Not on filedocumented in this encounter
--- OUTSIDE RECORDS SUMMARY | 2024-05-15 13:02 | XMS_ITS | Encounter Summary ---
Author Organization [facility] Address [address] [place] [address] Care Team Providers Care Director News Name Role Phone Unavailable Primary Care Provider Unavailabl e Encounter Details Date Type Department Care Team (Late Contact Info) Description 11/27/1999 23:31 EDT Hospital Encounter [facility] - Other [address] [place] [address] Matilde Wiley MD Unknown, Provider, Social History [...] Contact Info) Description 07/23/2024 16:20 EDT Telemedicine [facility] Endocrinology - [address] [address] Trini Hilario, DO [address] [place] [address] documented as of this encounter Visit Diagnoses Not on filedocumented in this encounter
--- OUTSIDE RECORDS SUMMARY | 2024-05-15 13:02 | XMS_ITS | Encounter Summary ---
Author Organization [facility] system Address [address] [place] [address] Care Team Providers Care Aircraft Maintenance Instructor Name Role Phone Unavailable Primary Care Provider Unavailabl e Encounter Details Date Type Department Care Team (Latest Contact Info) Description 07/13/2002 15:10 EST Hospital Encounter [facility] Emergency Department - [facility] [address] [place], [place] [phone] Emergency, Default, MD Discharge Disposition: Home or [...] 16:20 EDT Telemedicine [facility] Endocrinology - [address] [address] Trini Hilario, DO [address] [place] [phone] documented as of this encounter Procedures Procedure [...] cancers. [facility] Report Status Final [id number] [facility] 07/16/2002 11:0 1 EST 07/24/2002 11:01 EST us Leeanna Valdez PA-C MICROBIOLOGY - GENERAL ORD ERABLES Final Result [facility] [address] [place] [address] documented in this encounter Visit Diagnoses Not on filedocumented in this encounter
--- OUTSIDE RECORDS SUMMARY | 2024-05-15 13:02 | XMS_ITS | Encounter Summary ---
Author Organization [facility] Address [address] [place] [address] Care Team Providers Care Sales Systems Engineer Name Role Phone Unavailable Primary Care Provider Unavailabl e Encounter Details Date Type Department Care Team (Latest Contact Info) Description 08/23/2002 1:37 EDT - 08/23/2002 11:59 EDT Hospital Encounter [facility] Emergency Department - [facility] [address] [place], [place] [phone] Emergency, Default, MD Discharge Disposition: Home or [...] Contact Info) Description 07/23/2024 16:20 EDT Telemedicine [facility] Endocrinology - [address] [address] Trini Hilario, DO [address] [place] [address] documented as of this encounter Visit Diagnoses Not on filedocumented in this encounter
--- OUTSIDE RECORDS SUMMARY | 2024-05-15 13:02 | XMS_ITS | Encounter Summary ---
Author Organization [facility] Address [address] [place] [address] Care Team Providers Care Production Dispatcher Name Role Phone Unavailable Primary Care Provider Unavailabl e Encounter Details Date Type Department Care Team (Latest Contact Info) Description 07/16/2002 10:01 EST - 07/16/2002 11:59 EST Hospital Encounter [facility] - Other [address] [place] [address] Leeanna Valdez, PA-C [address] [place] [phone] Unknown, Provider, MD Discharge Disposition: Auto Discharge Social History Tobacco [...] Description 07/23/2024 16:20 EDT Telemedicine [facility] Endocrinology - [address] [place], [place] [phone] Trini Hilario, DO [address] [place] [phone] documented as of this encounter Visit Diagnoses Not on filedocumented in this encounter
--- OUTSIDE RECORDS SUMMARY | 2024-05-15 13:02 | XMS_ITS | Encounter Summary ---
Author Organization [facility] Address [address] [place] [address] Care Team Providers Care Rehab Trainer Name Role Phone Unavailable Primary Care Provider Unavailabl e Encounter Details Date Type Department Care Team (Latest Contact Info) Description 08/26/2002 20:55 EDT Hospital Encounter [facility] Emergency Department - [facility] [address] [place], [place] [address] Emergency, Default, MD Discharge Disposition: Home or [...] [facility] - [address] [phone] Trini Hilario, DO [address] [place] [address] documented as of this encounter Visit Diagnoses Not on filedocumented in this encounter
--- OUTSIDE RECORDS SUMMARY | 2024-05-15 13:02 | XMS_ITS | Encounter Summary ---
Author Organization [facility] Address [address] [place] [address] Care Team Providers Care Web Worker Name Role Phone Unavailable Primary Care Provider Unavailabl e Encounter Details Date Type Department Care Team (Late st Contact Info) Description 11/05/2002 Results Only [facility] - [address] [address] Anabel Espinosa MD [address] [place] [phone] Social History Tobacco Use Types Packs/Day Years [...] [facility] Endocrinology - [address] [address] Trini Hilario, DO [address] [place] [phone] documented as of this encounter Procedures Procedure Name Priority Date/Time Associated Diagnosis Comments BACTERIAL CULTURE, URINE Routine 11/05/2002 21:01 EDT documented in this encounter Results * BACTERIAL CULTURE, URINE (11/05/2002 21:01 EDT) Specimen Description Urine [facility] Result 10,000 to 100,000 CFU/ml Mixed gram positive growth Less than 10,000 CFU/ml Gram negative bacilli [facility] Report Status Final [id number] [facility] 11/05/2002 21:0 1 EDT 11/05/2002 21:16 EDT Anabel Espinosa MD MICROBIOLOGY - GENERAL O RDERABLES Final Result [facility] [address] [place] [address] documented in this encounter Visit Diagnoses Not on filedocumented in this encounter
--- OUTSIDE RECORDS SUMMARY | 2024-05-15 13:02 | XMS_ITS | Encounter Summary ---
Author Organization [facility] Address [address] [place] [address] Care Team Providers Care Environmental Science Instructor Name Role Phone Unavailable Primary Care Provider Unavailabl e Encounter Details Date Type Department Care Team (Late st Contact Info) Description 07/16/2002 Results Only [facility] - [facility] [address] [place] [address] Leeanna Valdez PA-C [address] [place] [phone] Social History Tobacco Use Types Packs/Day Years [...] 16:20 EDT Telemedicine [facility] Endocrinology - [address] [address] Trini Hilario, DO [address] [place] [phone] documented as of this encounter Procedures Procedure [...] ? EMMA MIN ? Accession #: ? [id number] : ? 1980 (Age: 22) ??F ?Collect [...] intraepithelial lesion (LSIL). EDUCATIONAL NOTES/RECOMMENDATI ONS ? [facility] recommends following the 2001 Consensus Guidelines for the Management of Women with Cervical Cytological Abnormalities (JULISSA,2002;287:212 0-9). Management algorithms have been distributed by [facility] and are available online at www.ASCCP.org. ? Document reviewed and electronically signed by: ? TALIA BLOOM [facility] ? Report Date: ??07/23/2002 17:09 End of Report [facility] 07/16/2002 07/20/2002 us Leeanna Valdez PA-C PATHOLOGY ORDERABLES Final Result Performing Organization Address City/State/[facility] Co de Phone Number [facility] [address] [place] [address] documented in this encounter Visit Diagnoses Not on filedocumented in this encounter
--- OUTSIDE RECORDS SUMMARY | 2024-05-15 13:02 | XMS_ITS | Encounter Summary ---
Author Organization [facility] Address [address] [place] [address] Care Team Providers Care Power Operator Name Role Phone Unavailable Primary Care Provider Unavailabl e Encounter Details Date Type Department Care Team (Late Contact Info) Description 02/05/2003 16:04 EDT Hospital Encounter [facility] - Other [address] [place] [address] Philly Ravi MD [address] [facility], [facility], [address] [place] [phone] Social History Tobacco Use Types Packs/Day Years [...] [facility] Endocrinology - [address] [place], [place] [phone] Trini Hilario, DO [address] [place] [phone] documented as of this encounter Procedures Procedure Name Priority Date/Time Associated Diagnosis Comments RAD ULTRASOUND Routine 03/25/2003 9:15 EST CYTOPATHOLOGY Routine 02/05/2003 0:00 EDT documented in this encounter Results * RAD ULTRASOUND (03/25/2003 9:15 EST) Anatomical Region Laterality Modality Other 03/25/2003 9:15 EST Narrative 12/20/2008 3:55 EDT [id number],VISULIZE HEART BETTER Please refer to the separate [facility] report. Procedure Note Cornelius Caruso MD - 12/20/2008 [id number],VISULIZE HEART BETTER Please refer to the separate [facility] report. us Ashely Valiente TAPE FOLDING MACHINE OPERATOR [facility] ORDERABLES Final Result * CYTOPATHOLOGY (02/05/2003 0:00 EDT) Pathology Report: CYTOPATHOLOGY REPORT Reports generated via electronic interface contain original data; however they are lacking the format of the original report. Caution should be taken when reading/interpreti ng unformatted reports. Name: ? EMMA MIN ? Accession #: ? [id number] : ? 1980 (Age: 22) ??F ?Collect [...] reviewed and electronically signed by: ? EDVIN Villafana(ASCP)(IAC) ? Report Date: ??02/08/2003 16:14 End of Report [facility] 02/05/2003 02/08/2003 us Philly Ravi MD PATHOLOGY ORDERABLES Final R esult [facility] [address] [place] [address] documented in this encounter Visit Diagnoses Not on filedocumented in this encounter
[2024-05-15 13:45] LABS: HCT 40.9 % (36.0-46.0); HGB 14.3 g/dL (11.2-15.7)
[2024-05-15 14:14] LABS: Ferritin 70 ng/mL (8-252)
== END 2024-05-22 23:59 | disposition home or self-care (01) ==
LOC: INF 12:52
PROVIDERS: PCP Internal Medicine; Visit Provider Internal Medicine Hematology
DX: E83.118 Other hemochromatosis (principal)
CPT/HCPCS: 36415; 82728; 85014; 85018

== ENCOUNTER 2024-09-18 00:47 | Outpatient (RCR) | payer MEDICAID, SELFPAY ==
[2024-09-18 13:16] LABS: HCT 38.3 % (36.0-46.0); HGB 13.4 g/dL (11.2-15.7)
[2024-09-18 13:47] LABS: Ferritin 80 ng/mL (8-252)
[2024-09-18] MEDS: Normal Saline Flush 10 ML SYR IVP (14:22)
== END 2024-09-19 23:59 | disposition home or self-care (01) ==
LOC: INF 00:47
PROVIDERS: PCP Internal Medicine; Visit Provider Internal Medicine Hematology
DX: E83.118 Other hemochromatosis (principal)
CPT/HCPCS: 36415; 99195; 82728; 85014; 85018